=== PATIENT | male | born 1940 | race Caucasian/White ===

== ENCOUNTER 2021-05-17 10:49 | Inpatient (IN) | payer MEDICARE ==
[~2021-05-17] VITALS: Ht 185.4 cm; Wt 98.2 kg
[2021-05-17 11:45] LABS: CALCIUM 8.4 mg/dL (8.5-10.1); CREATININE 1.5 mg/dL (0.7-1.3); GFR 45.3; POTASSIUM 4.8 mmol/L (3.5-5.1)
[2021-05-17 11:51] LABS: ALBUMIN 2.9 g/dL (3.4-5.0); ALBUMIN/GLOBULIN RATIO 0.9 (1.0-1.7); MAGNESIUM 2.1 mg/dL (1.8-2.4); TOTAL BILIRUBIN 0.3 mg/dL (0.2-1.0); TOTAL PROTEIN 6.2 g/dL (6.4-8.2)
[2021-05-17 11:53] LABS: BASO % 1 % (0-3); EOS # 0.4 x10^3/uL (0.0-0.7); EOS % 6 % (0-3); HEMATOCRIT 29.4 % (39.0-53.0); LYMPH % 32 % (24-48); MEAN CORPUSCULAR HEMOGLOBIN 35 pg (25-35); MEAN CORPUSCULAR HGB CONC 34 g/dL (31-37); MEAN CORPUSCULAR VOLUME 101 fL (79-100); MONO # 0.6 x10^3/uL (0.0-1.1); MONO % 11 % (0-9); NEUT # 3.1 x10^3uL (1.8-7.7); NEUT % 51 % (31-73); PLATELET COUNT 98 x10^3/uL (140-400); RED BLOOD COUNT 2.91 x10^6/uL (4.30-5.70); RED CELL DISTRIBUTION WIDTH 13.4 % (11.5-14.5); WHITE BLOOD COUNT 6.1 x10^3/uL (4.0-11.0)
--- NOTE | 2021-05-17 11:55 | PHYS DOC ---
Past History Past Medical History: Anxiety, Dementia, Diabetes, Hypertension, Seizure, Other Additional Past Medical Histor: Impulsive Additional Past Surgical Histo: Head injury Alcohol Use: None General Adult EDM: Chief Complaint: MEDICAL CLEARANCE HPI: HPI: 80-year-old male presents for medical clearance for behavioral health admission. The patient was reported to having paranoid delusions and hallucinations. He denies any significant plaints to me. He tells me that he sometimes gets a burning pain inside of his waistband on the right side. This is a location where the patient had shingles in the past. Review of Systems: Review of Systems: Constitutional: Denies fever or chills Eyes: Denies change in visual acuity HENT: Denies nasal congestion or sore throat Respiratory: Denies cough or shortness of breath Cardiovascular: Denies chest pain or edema GI: Denies abdominal pain, nausea, vomiting, bloody stools or diarrhea : Denies dysuria Musculoskeletal: Denies back pain or joint pain Integument: Skin pain right lower abdomen Neurologic: Denies headache, focal weakness or sensory changes Endocrine: Denies polyuria or polydipsia Lymphatic: Denies swollen glands Psychiatric: Denies depression or anxiety Allergies: Allergies: Allergies Coded Allergies Type Severity Reaction Last Updated Verified No Known Drug Allergies 05/17/21 No Physical Exam: PE: Constitutional: Well developed, well nourished, no acute distress, non-toxic appearance. [] HENT: Normocephalic, atraumatic, bilateral external ears normal, oropharynx moist, no oral exudates, nose normal. [] Eyes: PERRLA, EOMI, conjunctiva normal, no discharge. [] Neck: Normal range of motion, no tenderness, supple, no stridor. [] Cardiovascular:Heart rate regular rhythm, no murmur [] Lungs & Thorax: Bilateral breath sounds clear to auscultation [] Abdomen: Bowel sounds normal, soft, no tenderness, no masses, no pulsatile masses. [] Skin: Warm, dry, no erythema, no rash. [] Back: No tenderness, no CVA tenderness. [] Extremities: No tenderness, no cyanosis, no clubbing, ROM intact, no edema. [] Neurologic: Alert and oriented X 3, normal motor function, normal sensory function, no focal deficits noted. [] Psychologic: Affect normal, judgement normal, mood normal. [] Current Patient Data: Labs: Laboratory Tests Test 05/17/21 11:20 Sodium Level 142 mmol/L (136-145) Potassium Level 4.8 mmol/L (3.5-5.1) Chloride Level 108 mmol/L (98-107) H Carbon Dioxide Level 26 mmol/L (21-32) Anion Gap 8 (6-14) Blood Urea Nitrogen 34 mg/dL (8-26) H Creatinine 1.5 mg/dL (0.7-1.3) H Estimated GFR (Cockcroft-Gault) 45.3 BUN/Creatinine Ratio 23 (6-20) H Glucose Level 104 mg/dL (70-99) H Calcium Level 8.4 mg/dL (8.5-10.1) L Magnesium Level 2.1 mg/dL (1.8-2.4) Total Bilirubin 0.3 mg/dL (0.2-1.0) Aspartate Amino Transferase (AST) 13 U/L (15-37) L Alanine Aminotransferase (ALT) 15 U/L (16-63) L Alkaline Phosphatase 100 U/L (46-116) Total Protein 6.2 g/dL (6.4-8.2) L Albumin 2.9 g/dL (3.4-5.0) L Albumin/Globulin Ratio 0.9 (1.0-1.7) L Vital Signs: Vital Signs Date Time Temp Pulse Resp B/P (MAP) Pulse Ox O2 Delivery O2 Flow Rate FiO2 05/17/21 11:00 98.7 70 22 134/52 (79) 97 EKG: EKG: Sinus rhythm, rate 69, normal axis, no ST elevations or depressions. [] Radiology/Procedures: Radiology/Procedures: [] Heart Score: C/O Chest Pain: N/A Risk Factors: Risk Factors: DM, Current or recent (<one month) smoker, HTN, HLP, family history of CAD, obesity. Risk Scores: Score 0 - 3: 2.5% MACE over next 6 weeks - Discharge Home Score 4 - 6: 20.3% MACE over next 6 weeks - Admit for Clinical Observation Score 7 - 10: 72.7% MACE over next 6 weeks - Early Invasive Strategies Course & Med Decision Making: Course & Med Decision Making Pertinent Labs and Imaging studies reviewed. (See chart for details) The patient has a mildly elevated BUN and creatinine. This would not preclude him from admission for behavioral health. His EKG is unremarkable. The patient's urinalysis is negative for infection. He is medically stable for behavioral health admission. [] Dragon Disclaimer: Dragon Disclaimer: This electronic medical record was generated, in whole or in part, using a voice recognition dictation system. Departure Departure: Impression: Primary Impression: Medical clearance for psychiatric admission Disposition: HOME / SELF CARE / HOMELESS Condition: STABLE Referrals: MIMI RAMSEY (PCP) CLEMENT ROBBINS DO May 17, 2021 11:55
--- NOTE | 2021-05-17 12:02 | EKG ---
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
[2021-05-17 13:18] LABS: BACTERIA,URINE 0 /HPF (0-FEW); BILIRUBIN,URINE NEG (NEG); CLARITY,URINE CLEAR; COLOR,URINE YELLOW; GLUCOSE,URINE NEG (NEG); NITRITE,URINE NEG (NEG); RBC,URINE 0 /HPF (0-2); SQUAMOUS EPITHELIAL CELL,UR OCC /LPF; UROBILINOGEN,URINE 0.2 mg/dL (0.2 mg/dL); WBC,URINE OCC /HPF (0-4)
--- NOTE | 2021-05-17 13:30 | NUR ---
Admission Note with Justification for Admission to [facility] Patient admitted to [facility] for protective oversight for emergency stabilization of acute psychiatric crisis. Pt admitted from: [place] Mode of arrival: POV Accompanied By: Family Precipitating behaviors that initiated intake and admission: Patient was reported to believe that his money was being stolen, his dog was being murdered, trying to leave the facility, disoriented, being tearful and crying frequently, and having sexually inappropriate conversations with other residents. Description of failure of out patient attempts at stabilization in previous setting list behavior and medication trials: Medication changes and redirection not successful Behaviors and assessment findings upon admission: Patient was calm, cooperative, and mildly confused. He is oriented to self, month, and in hospital. Patient believes he is in hospital for his recent bout of shingles which he states still causes him stinging pain. Plan: Admit for protective oversight for adjustment and stabilization of medications, behaviors and mood. Intense treatment regimen including groups, medication adjustments, therapy, consistent regimen for ADL's, self care, and sleep hygiene. Daily monitoring by Inpatient staff, Psychiatry, and Medical Physician.
[2021-05-17] MEDS ORDERED: IPRA4AER INH (13:48)
[2021-05-17] MEDS ORDERED: TAMS0.4C97 PO (13:48)
[2021-05-17] MEDS ORDERED: BUDE0.5A11 IH (13:48)
[2021-05-17] MEDS ORDERED: METF500T3 PO (13:48)
[2021-05-17] MEDS ORDERED: LISI-517 PO (13:48)
[2021-05-17] MEDS ORDERED: PRAV40TA2 PO (13:48)
[2021-05-17] MEDS ORDERED: CARV3.12 PO (13:48)
[2021-05-17] MEDS ORDERED: PHEN100C PO (13:48)
[2021-05-17] MEDS ORDERED: ASPI-889 PO (13:48)
[2021-05-17] MEDS ORDERED: CYAN100031 PO (13:48)
[2021-05-17 14:32] VITALS: BP 168/76
[2021-05-17] MEDS ORDERED: METHYL SALICYLATE/MENTHOL TOPICAL OINTMENT 57GM TUBE. TP PRN (14:45)
[2021-05-17] MEDS ORDERED: MAG HYDROX/AL HYDROX/SIMETH 30 ML ORAL.SUSP PO PRN (14:45)
[2021-05-17 15:16] LABS: PHENY 2.2 mcg/mL (10.0-20.0)
[2021-05-17 16:00] VITALS: BP 146/77
[2021-05-17] MEDS: IPRATRPIUM/ALBUTEROL 0.5/2.5MG 3 ML NEBU. NEB SCH ×2 (16:00→20:00)
[2021-05-17] MEDS ORDERED: NON FORMULARY ITEM (Ipratropium/Albuterol Sulfate (Combivent Respimat Inhal) 1 PUFF) INH SCH (17:00)
[2021-05-17] MEDS: BUDESONIDE 0.5 MG/2 ML NEBU IH SCH (17:06)
[2021-05-17] MEDS: CARVEDILOL 3.125 MG TABLET PO SCH (17:28)
--- NOTE | 2021-05-17 20:12 | HP ---
ADMIT DATE: 05/17/2021 PSYCHIATRIC ADMISSION AND EVALUATION IDENTIFYING DATA: The patient is a 80-year-old male referred to us by his primary care physician, Dr. Ashraf after the patient had failed outpatient treatment. He resides at [facility] in [place], [place] and has in-home services. Recently, he has been increasingly depressed, paranoid. He believes his money is being stolen and that his dog is being murdered. He has been hallucinating, paranoid, threatening to leave the longterm community. He has been given 30 days' notice of eviction by the community if behaviors were deemed dangerous, unmanageable due to additional memory deficits and having failed outpatient psychiatric interventions. He is referred for inpatient psychiatric stabilization. CHIEF COMPLAINT: "I am having severe pain from shingles on the front of my stomach below the navel. That makes me more depressed and confused." HISTORY OF PRESENT ILLNESS: I have reviewed information from Jennifer Watson, school community relations coordinator; current and past records as part of this evaluation. I met with the patient on the evening of 05/17/2021. The patient has a history of worsening symptoms of depression, feeling hopeless, helpless, worthless, anxious, sleep and appetite changes, being tearful, crying by himself, having some sexually inappropriate behaviors. No active suicidal or homicidal ideation. He minimizes his short-term memory deficits, but memory has been a problem. He is admitted by his nephew, Maikel Jimenes, who is his power of toys inspector. PAST PSYCHIATRIC HISTORY: As above. PAST MEDICAL HISTORY: Positive for COPD, diabetes mellitus, hypertension, obesity, seizure disorder, history of CVA, BPH, chronic kidney disease, recurrent falls, macrocytic anemia. Accu-Cheks daily. CODE STATUS: FULL CODE. DRUG ALLERGIES: Negative. DIET: Cardiac. MEDICATIONS: Takes medications whole. Ambulates independently with walker. UA negative. Current psychotropics, please refer to the [facility]. FAMILY HISTORY: Noncontributory. SOCIAL HISTORY: No history of alcohol, drug abuse, physical, sexual or elder abuse. He is not known to be a perpetrator. 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 REVIEW OF SYSTEMS: Positive for the lower abdominal surface pain for which he describes post-shingles, impaired ambulation with walker. No CV, , pulmonary, eye system symptoms on review. MENTAL STATUS EXAMINATION: The patient is oriented to himself and situation. Speech is coherent. Abstraction fair, computation somewhat impaired, language function intact. He is unaware of the date, but knew he was in the hospital. Unable to tell me where he was living before he came here. Has difficulty with serial sevens. Attention span is short. Mood is depressed, anxious. Affect is mood congruent. No active suicidal or homicidal ideation. He does seem somewhat paranoid. LABORATORY DATA: Reviewed. 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 Rest as above. PLAN: Admit to geropsychiatry unit at [facility]. I will see the patient daily individually from a psychiatric standpoint, medical followup with Dr. Oconnor/Dr. Villarreal. Consult Dr. Newman, neurology for his symptoms of post-herpetic neuralgia. Consider Tegretol for this or alternatives. Observe the patient's baseline, then adjust psychotropics as clinically indicated. ESTIMATED LENGTH OF STAY: 10-12 days. DISPOSITION: Plans back to assisted living when stable. ARIE MONK: Melissa TID: [id number]
[2021-05-17] MEDS: PHENYTOIN SODIUM EXTENDED 100 MG CAPSULE PO SCH (20:36)
[2021-05-17] MEDS: GABAPENTIN 300 MG CAPSULE. PO SCH (20:36)
[2021-05-17] MEDS: IPRATROPIUM/ALBUTEROL 20/100mcg/INH INHALER. INH SCH (20:46)
--- NOTE | 2021-05-17 22:10 | PDOC ---
Exam Note: Leo Note: Please also refer to the separate dictated note~for this date of service dictated separately.~Patient seen individually. Discussed the patient with Nursing staff reviewed the chart.~Reviewed interim history and current functioning. Reviewed vital signs,~Labs/ Radiology~and current medications noted below. Continue current treatment with the changes noted in the dictated addendum note Assessment: Vital Signs/I&O: Vital Signs Date Time Temp Pulse Resp B/P (MAP) Pulse Ox O2 Delivery O2 Flow Rate FiO2 05/17/21 17:28 74 146/77 05/17/21 16:00 98.1 20 98 Room Air Labs: Laboratory Tests Test 05/17/21 11:20 05/17/21 12:35 White Blood Count 6.1 x10^3/uL (4.0-11.0) Red Blood Count 2.91 x10^6/uL (4.30-5.70) L Hemoglobin 10.0 g/dL (13.0-17.5) L Hematocrit 29.4 % (39.0-53.0) L Mean Corpuscular Volume 101 fL (79-100) H Mean Corpuscular Hemoglobin 35 pg (25-35) Mean Corpuscular Hemoglobin Concent 34 g/dL (31-37) Red Cell Distribution Width 13.4 % (11.5-14.5) Platelet Count 98 x10^3/uL (140-400) L Neutrophils (%) (Auto) 51 % (31-73) Lymphocytes (%) (Auto) 32 % (24-48) Monocytes (%) (Auto) 11 % (0-9) H Eosinophils (%) (Auto) 6 % (0-3) H Basophils (%) (Auto) 1 % (0-3) Neutrophils # (Auto) 3.1 x10^3uL (1.8-7.7) Lymphocytes # (Auto) 2.0 x10^3/uL (1.0-4.8) Monocytes # (Auto) 0.6 x10^3/uL (0.0-1.1) Eosinophils # (Auto) 0.4 x10^3/uL (0.0-0.7) Basophils # (Auto) 0.0 x10^3/uL (0.0-0.2) Sodium Level 142 mmol/L (136-145) Potassium Level 4.8 mmol/L (3.5-5.1) Chloride Level 108 mmol/L (98-107) H Carbon Dioxide Level 26 mmol/L (21-32) Anion Gap 8 (6-14) Blood Urea Nitrogen 34 mg/dL (8-26) H Creatinine 1.5 mg/dL (0.7-1.3) H Estimated GFR (Cockcroft-Gault) 45.3 BUN/Creatinine Ratio 23 (6-20) H Glucose Level 104 mg/dL (70-99) H Calcium Level 8.4 mg/dL (8.5-10.1) L Magnesium Level 2.1 mg/dL (1.8-2.4) Iron Level 98 ug/dL (65-175) Total Iron Binding Capacity 160 ug/dL (250-450) L Iron Saturation 61 % (15-34) H Total Bilirubin 0.3 mg/dL (0.2-1.0) Aspartate Amino Transferase (AST) 13 U/L (15-37) L Alanine Aminotransferase (ALT) 15 U/L (16-63) L Alkaline Phosphatase 100 U/L (46-116) Total Protein 6.2 g/dL (6.4-8.2) L Albumin 2.9 g/dL (3.4-5.0) L Albumin/Globulin Ratio 0.9 (1.0-1.7) L Phenytoin (Dilantin) Level 2.2 mcg/mL (10.0-20.0) L Phenytoin Last Dose Date 05/16/2021 Phenytoin Last Dose Time 1800 Urine Collection Type Unknown Urine Color Yellow Urine Clarity Clear Urine pH 6.0 Urine Specific [place] 1.020 Urine Protein Neg (NEG-TRACE) Urine Glucose (UA) Neg mg/dL (NEG) Urine Ketones (Stick) Neg mg/dL (NEG) Urine Blood Neg (NEG) Urine Nitrite Neg (NEG) Urine Bilirubin Neg (NEG) Urine Urobilinogen Dipstick 0.2 mg/dL (0.2 mg/dL) Urine Leukocyte Esterase Neg (NEG) Urine RBC 0 /HPF (0-2) Urine WBC Occ /HPF (0-4) Urine Squamous Epithelial Cells Occ /LPF Urine Bacteria 0 /HPF (0-FEW) Current Medications: Meds: Current Medications Medications (Trade) Dose Ordered Sig/Aparna Route PRN Reason Start Time Stop Time Status Last Admin Dose Admin Carvedilol (Coreg) 3.125 mg BIDWMEALS PO 05/17/21 17:00 05/17/21 17:28 Phenytoin Sodium (Dilantin) 100 mg BID PO 05/17/21 21:00 05/17/21 20:36 Albuterol/ Ipratropium (Combivent Respimat 20-100 Mcg) 1 puff RTQID INH 05/17/21 20:00 05/17/21 20:46 Gabapentin (Neurontin) 300 mg BID PO 05/17/21 21:00 05/17/21 20:36 I have reviewed the current psychotropics carefully including drug interactions. Risk benefit ratio favors no change other than as noted in my dictated progress note. Diagnosis: Problems: (1) Major depressive disorder (2) Major neurocognitive disorder (3) Dementia, vascular, with delusions (4) Dementia, vascular, with depression (5) Anxiety disorder, unspecified (6) Impulse control disorder, unspecified NIK LOYA MD May 17, 2021 22:10
[2021-05-18 05:48] VITALS: BP 114/57
[2021-05-18] MEDS: BUDESONIDE 0.5 MG/2 ML NEBU IH SCH (08:00)
[2021-05-18] MEDS: IPRATROPIUM/ALBUTEROL 20/100mcg/INH INHALER. INH SCH ×4 (08:00→20:13)
[2021-05-18] MEDS: ATORVASTATIN CALCIUM 10 MG TABLET. PO SCH (10:30)
[2021-05-18] MEDS: metFORMIN XR 500 MG TAB.ER.24H PO SCH (10:30)
[2021-05-18] MEDS: PHENYTOIN SODIUM EXTENDED 100 MG CAPSULE PO SCH ×2 (10:30→20:13)
[2021-05-18] MEDS: ASPIRIN ENTERIC COATED 81 MG TABLET.DR. PO SCH (10:30)
[2021-05-18] MEDS: TAMSULOSIN 0.4 MG CAP.ER.24H. PO SCH (10:30)
[2021-05-18] MEDS: CARVEDILOL 3.125 MG TABLET PO SCH ×2 (10:30→17:45)
[2021-05-18] MEDS: LISINOPRIL 5 MG TABLET. PO SCH (10:31)
[2021-05-18] MEDS: CYANOCOBALAMIN (VITAMIN B-12) 1,000 MCG TABLET. PO SCH (10:31)
[2021-05-18] MEDS: GABAPENTIN 300 MG CAPSULE. PO SCH ×2 (10:31→20:13)
--- NOTE | 2021-05-18 10:44 | NUR ---
Pt confused and disorganized this shift. Compliant with whole medications. He stated he had difficulty sleeping last night, and so he slept in and missed breakfast. Snack offered and he accepted. He appears friendly and interactive, his behaviors and language with others appropriate. He has been absent of SI/HI/VH/AH/delusions at this time. He denies pain when asked. Plan of care continues, will pass to next shift.
[2021-05-18 11:27] LABS: THYROID STIM HORMONE (TSH) 1.373 uIU/mL (0.358-3.740)
[2021-05-18] MEDS: FLUTICASONE FUROATE 100mcg/INH ELLIPTA INHALER. INH SCH (14:00)
[2021-05-18 15:24] VITALS: BP 115/54
--- NOTE | 2021-05-18 22:08 | PDOC ---
Exam Note: Leo Note: Please also refer to the separate dictated note~for this date of service dictated separately.~Patient seen individually. Discussed the patient with Nursing staff reviewed the chart.~Reviewed interim history and current functioning. Reviewed vital signs,~Labs/ Radiology~and current medications noted below. Continue current treatment with the changes noted in the dictated addendum note Assessment: Vital Signs/I&O: Vital Signs Date Time Temp Pulse Resp B/P (MAP) Pulse Ox O2 Delivery O2 Flow Rate FiO2 05/18/21 17:45 68 115/54 05/18/21 15:24 97.2 18 98 05/18/21 05:48 Room Air I & O 05/17/21 05/17/21 05/18/21 15:00 23:00 07:00 Intake Total 120 ml 480 ml Balance 120 ml 480 ml Labs: Laboratory Tests Test 05/18/21 07:16 Glucose (Fingerstick) 78 mg/dL (70-99) Current Medications: Meds: Current Medications Medications (Trade) Dose Ordered Sig/Aparna Route PRN Reason Start Time Stop Time Status Last Admin Dose Admin Aspirin (Aspirin Enteric Coated) 81 mg DAILY PO 05/18/21 09:00 05/18/21 10:30 Lisinopril (Prinivil) 5 mg DAILY PO 05/18/21 09:00 05/18/21 10:31 Metformin HCl (Glucophage Xr) 500 mg DAILYWBKFT PO 05/18/21 08:00 05/18/21 10:30 Tamsulosin HCl (Flomax) 0.4 mg DAILY PO 05/18/21 09:00 05/18/21 10:30 Cyanocobalamin (Vitamin B-12) 1,000 mcg DAILY PO 05/18/21 09:00 05/18/21 10:31 Atorvastatin Calcium (Lipitor) 10 mg DAILY PO 05/18/21 09:00 05/18/21 10:30 Fluticasone Furoate (ARNUITY 100mcg ELLIPTA) 1 puff DAILY INH 05/18/21 14:00 05/18/21 14:00 I have reviewed the current psychotropics carefully including drug interactions. Risk benefit ratio favors no change other than as noted in my dictated progress note. Diagnosis: Problems: (1) Major depressive disorder (2) Impulse control disorder, unspecified (3) Anxiety disorder, unspecified (4) Dementia, vascular, with depression (5) Dementia, vascular, with delusions (6) Major neurocognitive disorder NIK LOYA MD May 18, 2021 22:08
[2021-05-19 00:09] LABS: THYROXINE 4.7 ug/dL (4.5-12.0)
--- NOTE | 2021-05-19 01:00 | NUR ---
PRN tylenol given. 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 He was becoming loud and arguing with staff. He was placed in the day room and visited with staff and calmed after approx 1 hour. .
[2021-05-19] MEDS: ACETAMINOPHEN 325 MG TABLET PO PRN (01:05)
[2021-05-19] MEDS: MAGNESIUM HYDROXIDE 2,400 MG/30 ML ORAL.SUSP. PO PRN (02:02)
--- NOTE | 2021-05-19 02:15 | NUR ---
Pt now manaer used the bathroom and gone back to sleep in his room.
--- NOTE | 2021-05-19 04:57 | CONS ---
DATE OF CONSULTATION: 05/18/2021 CONSULTATION FOR MEDICAL MANAGEMENT HISTORY OF PRESENT ILLNESS: The patient is a 80-year-old male patient who was referred [facility] by his primary care physician after the patient has failed outpatient treatment. He apparently has been residing at [facility] in [place], [place] and has an in-home services, has been increasingly depressed, paranoid. He believes his money is being stolen and that his dog has been murdered. He has been hallucinating, paranoid, threatening to leave the custodial community. He apparently has been given a 30-day notice of eviction by the community if behaviors were deemed dangerous, unmanageable due to additional memory deficit and having failed outpatient psychiatric stabilization and therefore, he was referred for inpatient psychiatric stabilization. The patient himself denied any complaint. PAST MEDICAL HISTORY: Significant for COPD, type 2 diabetes mellitus, hypertension, obesity, seizure disorder, has had history of CVA, benign prostatic hypertrophy, chronic kidney disease, recurrent falls, macrocytic anemia. He stated that he has multiple surgeries, but he was unable to tell me exactly what kind of surgery he has. ALLERGIES: He has no known drug allergies. MEDICATIONS: He is currently on the following medication. He is on Combivent, Respimat 1 puff 4 times a day, tamsulosin 0.4 mg at bedtime, pravastatin, sodium 40 mg at bedtime, carvedilol 3.125 mg twice a day with meals, lisinopril 5 mg once a day, aspirin 81 mg once a day, phenytoin sodium 100 mg twice a day, Pulmicort 0.5 mg 2 mL by nebulizer twice a day, metformin extended release 500 mg daily with breakfast and cyanocobalamin, vitamin B12 1000 mcg tablet extended release one tablet once a day. FAMILY HISTORY: Noncontributory. SOCIAL HISTORY: He is a resident at [facility] in [place]. He apparently does not smoke or drink alcohol or use recreational drugs. PHYSICAL EXAMINATION: GENERAL: When I examined him this afternoon, he was sitting comfortably in his chair, eating his lunch, in no apparent respiratory distress. He was somewhat pale, but no jaundice, cyanosis, no lymphadenopathy, no thyromegaly, jugular distention, or limb edema. VITAL SIGNS: Heart rate was 75, blood pressure 114/57, temperature was 97.7, respiratory rate was 18 and oxygen saturation was 97% on room air. HEENT: Examination of the head, eyes, ears, nose, and throat: Normocephalic, atraumatic. NECK: Supple. HEART: Showed normal first and second heart sounds, no gallop, murmur. CHEST: Clear to auscultation. No crepitation or rhonchi. ABDOMEN: Distended, soft, nontender. NEUROLOGIC: He was awake, alert, responding appropriately. All cranial nerves intact. He moves extremities without difficulty. Although he is mostly wheelchair bound. LABORATORY DATA: Showed a white cell count of 6100, hemoglobin 10, hematocrit 29, MCV 101 and platelet count of 98,000. Serum sodium 142, potassium 4.8, chloride 108, bicarbonate 26, anion gap of 8, BUN 34, creatinine 1.5. Estimated GFR was 45 mL per minute. His glucose 104, calcium was 8.4, magnesium was 2.1. Serum iron was 98. TIBC was 160, iron saturation was 61. Total bilirubin, AST, ALT, alkaline phosphatase were normal. Total protein 6.2, albumin was 2.9. Serum triglycerides was 90. Total cholesterol 144, LDL cholesterol was 66, VLDL was 18 and HDL cholesterol was 16 and the ratio was 2. TSH was 1.373. His urinalysis essentially unremarkable and urine toxic screen showed that his phenytoin is very low at 2.2, which is definitely subtherapeutic. ASSESSMENT: In summary, this is a 80-year-old male patient who was admitted recently on account of being increasingly depressed, paranoid, believing that his money is being stolen, his dog being murdered, he also has been hallucinating, paranoid, threatening to leave the custodial community. He apparently is known to have past medical history of major depression. Medically his vital signs seem to be well within acceptable range. The lab work was also has obviously what seemed to be pancytopenia, chronic kidney disease. His phenytoin level is subtherapeutic and he probably needs to be at least on 5 mg/kg. Apparently, Dr. Newman is going to see him this afternoon and I will leave that decision to adjust the dose to Dr. Newman. Thank you, Dr. Parra, for allowing me to participate in the care of this patient. KYLEE/JEMIMA/RUBIO DR: KYLEE/nts TID: [id number]
[2021-05-19 05:54] VITALS: BP 154/77
[2021-05-19 06:10] LABS: HEMOGLOBIN A1C 5.7 % (4.8-5.6)
[2021-05-19] MEDS: IPRATROPIUM/ALBUTEROL 20/100mcg/INH INHALER. INH SCH ×4 (08:00→20:44)
[2021-05-19] MEDS: metFORMIN XR 500 MG TAB.ER.24H PO SCH (08:08)
[2021-05-19] MEDS: CYANOCOBALAMIN (VITAMIN B-12) 1,000 MCG TABLET. PO SCH (08:08)
[2021-05-19] MEDS: CARVEDILOL 3.125 MG TABLET PO SCH ×2 (08:08→17:17)
[2021-05-19] MEDS: GABAPENTIN 300 MG CAPSULE. PO SCH ×2 (08:08→20:45)
[2021-05-19] MEDS: ATORVASTATIN CALCIUM 10 MG TABLET. PO SCH (08:08)
[2021-05-19] MEDS: LISINOPRIL 5 MG TABLET. PO SCH (08:08)
[2021-05-19] MEDS: TAMSULOSIN 0.4 MG CAP.ER.24H. PO SCH (08:08)
[2021-05-19] MEDS: ASPIRIN ENTERIC COATED 81 MG TABLET.DR. PO SCH (08:08)
--- NOTE | 2021-05-19 08:45 | PDOC ---
Exam Note: Leo Note: This note is a late entry for 05/18/2021 covers elements not covered in my initial note. Subjective: The patient was seen individually in the evening of 05/18/2021 with Maryjane KOWALSKI, discussed and reviewed the chart. The patient slept 6-1/4 hours previous night. The patient has some short-term memory deficits. He believes he is here for shingles. His Dilantin is being adjusted per Dr. Newman. He is compliant with his medications. He remains depressed, withdrawn but does come out of the dayroom. Review of Systems: Ambulation impaired with walker. No CV, , pulmonary, eye, ENT system symptoms on review. Mental Status Exam: The patient is reasonably oriented to himself and situation. Speech coherent. Abstraction fair. Computation impaired. Language function intact. Mood and affect depressed, anxious. No suicidal or homicidal ideation. Laboratory Data: Reviewed. 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 Anxiety disorder unspecified. Impulse control disorder unspecified. Plan: No change from initial note. The patient remains somewhat depressed. We will go ahead and start Cymbalta 30 mg a day given his significant pain issues as well. We will increase this gradually as tolerated. Assessment: Vital Signs/I&O: Vital Signs Date Time Temp Pulse Resp B/P (MAP) Pulse Ox O2 Delivery O2 Flow Rate FiO2 05/19/21 08:08 91 154/77 05/19/21 05:54 97.8 18 100 05/18/21 05:48 Room Air I & O 05/18/21 05/18/21 05/19/21 15:00 23:00 07:00 Intake Total 240 ml 720 ml Balance 240 ml 720 ml Labs: Laboratory Tests Test 05/19/21 07:23 Glucose (Fingerstick) 151 mg/dL (70-99) H Current Medications: Meds: Laboratory Tests Test 05/19/21 07:23 Glucose (Fingerstick) 151 mg/dL Current Medications Medications (Trade) Dose Ordered Sig/Aparna Route PRN Reason Start Time Stop Time Status Last Admin Dose Admin Acetaminophen (Tylenol) 650 mg PRN Q6HRS PRN PO MILD PAIN / TEMP > 100.3'F 05/17/21 14:45 05/19/21 01:05 Multi-Ingredient Ointment (Analgesic [place]) 1 inna PRN QID PRN TP MUSCLE PAIN 05/17/21 14:45 Al Hydroxide/Mg Hydroxide (Mylanta Plus Xs) 15 ml PRN AFTMEALHC PRN PO DYSPEPSIA 05/17/21 14:45 Magnesium Hydroxide (Milk Of Magnesia) 2,400 mg PRN QHS PRN PO CONSTIPATION 05/17/21 14:45 Aspirin (Aspirin Enteric Coated) 81 mg DAILY PO 05/18/21 09:00 05/19/21 08:08 Budesonide (Pulmicort) 0.5 mg RTBID IH 05/17/21 20:00 05/18/21 13:26 DC Carvedilol (Coreg) 3.125 mg BIDWMEALS PO 05/17/21 17:00 05/19/21 08:08 Lisinopril (Prinivil) 5 mg DAILY PO 05/18/21 09:00 05/19/21 08:08 Metformin HCl (Glucophage Xr) 500 mg DAILYWBKFT PO 05/18/21 08:00 05/19/21 08:08 Phenytoin Sodium (Dilantin) 100 mg BID PO 05/17/21 21:00 05/18/21 21:00 DC 05/18/21 20:13 Tamsulosin HCl (Flomax) 0.4 mg DAILY PO 05/18/21 09:00 05/19/21 08:08 Cyanocobalamin (Vitamin B-12) 1,000 mcg DAILY PO 05/18/21 09:00 05/19/21 08:08 Non-Formulary Medication (Ipratropium/ Albuterol Sulfate (Combivent Respimat Inhal)) 1 puff QID INH 05/17/21 17:00 05/17/21 15:02 DC Atorvastatin Calcium (Lipitor) 10 mg DAILY PO 05/18/21 09:00 05/19/21 08:08 Albuterol/ Ipratropium (Duoneb) 3 ml RTQID NEB 05/17/21 16:00 05/17/21 20:45 DC Albuterol/ Ipratropium (Combivent Respimat 20-100 Mcg) 1 puff RTQID INH 05/17/21 20:00 05/18/21 20:13 Gabapentin (Neurontin) 300 mg BID PO 05/17/21 21:00 05/19/21 08:08 Fluticasone Furoate (ARNUITY 100mcg ELLIPTA) 1 puff DAILY INH 05/18/21 14:00 05/18/21 14:00 Phenytoin Sodium (Dilantin) 300 mg DAILY08 PO 05/19/21 08:00 Duloxetine HCl (Cymbalta) 30 mg DAILY PO 05/19/21 09:00 Current Medications Medications (Trade) Dose Ordered Sig/Aparna Route PRN Reason Start Time Stop Time Status Last Admin Dose Admin Aspirin (Aspirin Enteric Coated) 81 mg DAILY PO 05/18/21 09:00 05/19/21 08:08 Lisinopril (Prinivil) 5 mg DAILY PO 05/18/21 09:00 05/19/21 08:08 Tamsulosin HCl (Flomax) 0.4 mg DAILY PO 05/18/21 09:00 05/19/21 08:08 Cyanocobalamin (Vitamin B-12) 1,000 mcg DAILY PO 05/18/21 09:00 05/19/21 08:08 Atorvastatin Calcium (Lipitor) 10 mg DAILY PO 05/18/21 09:00 05/19/21 08:08 Fluticasone Furoate (ARNUITY 100mcg ELLIPTA) 1 puff DAILY INH 05/18/21 14:00 05/18/21 14:00 I have reviewed the current psychotropics carefully including drug interactions. Risk benefit ratio favors no change other than as noted in my dictated progress note. Diagnosis: Problems: (1) Major depressive disorder (2) Impulse control disorder, unspecified (3) Anxiety disorder, unspecified (4) Dementia, vascular, with depression (5) Dementia, vascular, with delusions (6) Major neurocognitive disorder NIK LOYA MD May 19, 2021 08:45
[2021-05-19] MEDS: PHENYTOIN SODIUM EXTENDED 100 MG CAPSULE PO SCH (09:34)
[2021-05-19] MEDS: DULoxetine HCL 30 MG CAPSULE.DR PO SCH (09:34)
[2021-05-19] MEDS: FLUTICASONE FUROATE 100mcg/INH ELLIPTA INHALER. INH SCH (09:35)
--- NOTE | 2021-05-19 12:12 | NUR ---
WEEKLY ACTIVITY THERAPY NOTE Date of Admission: 05/17/21 Date of AT Assessment: TBD Precipitating behaviors that initiated intake and admission: Patient was reported to believe that his money was being stolen, his dog was being murdered, trying to leave the facility, disoriented, being tearful and crying frequently, and having sexually inappropriate conversations with other residents. Initial Goal: TBD Weekly progress towards goal: TBD Group participation level: NA Weekly highlights: arrived on unit Behaviors observed: new patient Plan: meet/assess Pt Beneficial adaptations:
--- NOTE | 2021-05-19 13:10 | NUR ---
Treatment team note: Pt is eating okay and noted to have slept 4.5 hours last night. Pt is A/O to self and believes he's in the hospital for shingles treatment. Pt appears restless and is medication compliant with meds whole. Pt did report having bad dreams and complaints of headache; however, when questioned pt is not able to further discuss or explain what happened. Pt does participate in some groups with minimal to moderate participation. Pt is on Dilantin, Gabapentin and Cymbalta; Remeron 7.5mg q HS will be started to aid in pt restlessness and poor sleep at night. Pt facility has given him a 30-day notice as he lives on the [place] side and is no longer appropriate for that setting. SW will aid family and the facility in next steps for pt placement. ALISON 14 days.
--- NOTE | 2021-05-19 14:35 | NUR ---
NURSING NOTE Pleasant et calm, participates in group activities without incident. Ambulatory independently with rolling walker. Medication changes ordered for improved sleep. No concern with behavior.
[2021-05-19 15:34] VITALS: BP 151/60
--- NOTE | 2021-05-19 16:20 | NUR ---
PSYCHOSOCIAL ASSESSMENT ADMISSION DATE: 05/17/21 CONTACT INFORMATION: DPOA/Guardian Contact Name: Maikel Jimenes Contact Address: [address] [facility] [address]; [place] [address] Contact Phone #: ETHNIC ORIGIN: REASONS FOR ADMISSION: ADDITIONAL ADMISSION COMMENTS: According to the intake, pt thinks his money is being stolen and that his dog is being murdered; Hallucinating, paranoid, threatening to leave the nursing home community, has been given a 30-day notice, depressed, tearful and cries frequently, sexually inappropriate conversation with peers, anxious. REASON FOR ADMISSION IN PATIENT/FAMILY'S OWN WORDS: Had a steady decline within the last year and needs more assistance than usual. PATIENT/FAMILY EXPECTATIONS FOR ADMISSION: Medication and behavioral management LIVING SITUATION: Patient lives with: Independent Living Other living arrangements: Contact Name: [employer] Contact Address: [address] [place], [place] [address] Contact Phone #: Contact Fax #: FAMILY RELATIONS: Marital Status: # of Marriages: 1 # of Children: 0 [facility] Family Support: Cooperative Additional Comments r/t Family: Pt was for a short period of time and had no children. Pt was in an accident and instantly. Pt never remarried. Pt closest relative is his nephew Maikel. SIGNIFICANT PSYCHIATRIC/MEDICAL HISTORY: Psychiatric/Treatment History: This is pt first stay on [facility]. Pt has been in SNF due to his medical history and need for rehabilitation. Pertinent Family History: Unknown HISTORICAL DATA: Childhood Environment: Childhood Environment Additional Comments: Pt is one of 10 children (2 girls and 8 boys). Pt and two other siblings (who have nothing to do with pt) are living. 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 service: N Yarsanism background: No preference Sexual orientation: Heterosexual Educational Level: Pt has a 6th grade education; did not receive his GED or further education opportunities. Past/Present Interests/Hobbies: N/A Financial support/resources: Care Home/Pension Social Security Monthly income: Person handling finances: Pt nephew is also financial DPOA Do you have a history of legal problems: N Cultural considerations: None SOCIAL RELATIONSHIPS-CURRENT/PAST: Psychiatrist: None PCP: Dr. Ashraf Counselor/Therapist: None Veterans[employer] Administration: None Support Group: None Fabric Worker Fitter/Lath Hand: None Other relationships: staff at [facility] STRENGTHS & WEAKNESSES: Patient's strengths: Good verbal skills Approachable Other patient strengths: Patient's weaknesses: Lack of housing Lack of resources Impulsive Poor relationships Other patient weaknesses: PRELIMINARY PLAN OF TREATMENT: Preliminary plan: Dec. Anxiety/Panic Dec. Symp. Depression Promote Coping Skill Medication Stabilization Other preliminary treatment comments: DISCHARGE PLANNING: Discharge planning/disposition: Placement Needed Additional discharge needs identified: Referrals to higher level of care is needed. ADDITIONAL INFORMATION: Other Pertinent Data: ARI initially contacted pt nephew to discuss the 30 day notice per reported on the intake. Pt nephew was not aware of a 30-day notice being issued and questioned next steps. ARI planned to contact [facility] and speak to Gloria to confirm the information. Pt nephew was able to complete PSA with SW best to his knowledge. He reports that he wasn't too close to the pt as Maikel was in the and gone most of his adult life. It wasn't until pt brother, Maikel's father, that a nielson was formed. Maikel reports that pt does have a house in [place] that is being sold and he recently sold 4 of the 5 Mustangs pt had on his property. Maikel was able to clarify reports of pt concern for his dog. Pt did have a dog in [place] roughly a year ago, who was essentially killed by the neighbor's pit bull. But pt does not currently have a dog at his [place] facility. ARI will keep Maikel updated as pt stay continues on [facility].
[2021-05-19] MEDS: MIRTAZAPINE 7.5 MG TABLET. PO SCH (20:45)
--- NOTE | 2021-05-19 21:55 | PDOC ---
Exam Note: Leo Note: Please also refer to the separate dictated note~for this date of service dictated separately.~Patient seen individually. Discussed the patient with Nursing staff reviewed the chart.~Reviewed interim history and current functioning. Reviewed vital signs,~Labs/ Radiology~and current medications noted below. Continue current treatment with the changes noted in the dictated addendum note Assessment: Vital Signs/I&O: Vital Signs Date Time Temp Pulse Resp B/P (MAP) Pulse Ox O2 Delivery O2 Flow Rate FiO2 05/19/21 17:17 70 151/60 05/19/21 15:34 97.4 18 99 05/18/21 05:48 Room Air I & O 05/18/21 05/18/21 05/19/21 15:00 23:00 07:00 Intake Total 240 ml 720 ml Balance 240 ml 720 ml Labs: Laboratory Tests Test 05/19/21 07:23 Glucose (Fingerstick) 151 mg/dL (70-99) H Current Medications: Meds: Laboratory Tests Test 05/19/21 07:23 Glucose (Fingerstick) 151 mg/dL Current Medications Medications (Trade) Dose Ordered Sig/Aparna Route PRN Reason Start Time Stop Time Status Last Admin Dose Admin Acetaminophen (Tylenol) 650 mg PRN Q6HRS PRN PO MILD PAIN / TEMP > 100.3'F 05/17/21 14:45 05/19/21 01:05 Multi-Ingredient Ointment (Analgesic [place]) 1 inna PRN QID PRN TP MUSCLE PAIN 05/17/21 14:45 Al Hydroxide/Mg Hydroxide (Mylanta Plus Xs) 15 ml PRN AFTMEALHC PRN PO DYSPEPSIA 05/17/21 14:45 Magnesium Hydroxide (Milk Of Magnesia) 2,400 mg PRN QHS PRN PO CONSTIPATION 05/17/21 14:45 Aspirin (Aspirin Enteric Coated) 81 mg DAILY PO 05/18/21 09:00 05/19/21 08:08 Budesonide (Pulmicort) 0.5 mg RTBID IH 05/17/21 20:00 05/18/21 13:26 DC Carvedilol (Coreg) 3.125 mg BIDWMEALS PO 05/17/21 17:00 05/19/21 17:17 Lisinopril (Prinivil) 5 mg DAILY PO 05/18/21 09:00 05/19/21 08:08 Metformin HCl (Glucophage Xr) 500 mg DAILYWBKFT PO 05/18/21 08:00 05/19/21 08:08 Phenytoin Sodium (Dilantin) 100 mg BID PO 05/17/21 21:00 05/18/21 21:00 DC 05/18/21 20:13 Tamsulosin HCl (Flomax) 0.4 mg DAILY PO 05/18/21 09:00 05/19/21 08:08 Cyanocobalamin (Vitamin B-12) 1,000 mcg DAILY PO 05/18/21 09:00 05/19/21 08:08 Non-Formulary Medication (Ipratropium/ Albuterol Sulfate (Combivent Respimat Inhal)) 1 puff QID INH 05/17/21 17:00 05/17/21 15:02 DC Atorvastatin Calcium (Lipitor) 10 mg DAILY PO 05/18/21 09:00 05/19/21 08:08 Albuterol/ Ipratropium (Duoneb) 3 ml RTQID NEB 05/17/21 16:00 05/17/21 20:45 DC Albuterol/ Ipratropium (Combivent Respimat 20-100 Mcg) 1 puff RTQID INH 05/17/21 20:00 05/19/21 20:44 Gabapentin (Neurontin) 300 mg BID PO 05/17/21 21:00 05/19/21 20:45 Fluticasone Furoate (ARNUITY 100mcg ELLIPTA) 1 puff DAILY INH 05/18/21 14:00 05/19/21 09:35 Phenytoin Sodium (Dilantin) 300 mg DAILY08 PO 05/19/21 08:00 05/19/21 09:34 Duloxetine HCl (Cymbalta) 30 mg DAILY PO 05/19/21 09:00 05/19/21 09:34 Mirtazapine (Remeron) 7.5 mg QHS PO 05/19/21 21:00 05/19/21 20:45 Trazodone HCl (Desyrel) 50 mg PRN QHS PRN PO sleep 05/19/21 12:30 Current Medications Medications (Trade) Dose Ordered Sig/Aparna Route PRN Reason Start Time Stop Time Status Last Admin Dose Admin Phenytoin Sodium (Dilantin) 300 mg DAILY08 PO 05/19/21 08:00 05/19/21 09:34 Duloxetine HCl (Cymbalta) 30 mg DAILY PO 05/19/21 09:00 05/19/21 09:34 Mirtazapine (Remeron) 7.5 mg QHS PO 05/19/21 21:00 05/19/21 20:45 I have reviewed the current psychotropics carefully including drug interactions. Risk benefit ratio favors no change other than as noted in my dictated progress note. Diagnosis: Problems: (1) Major depressive disorder (2) Impulse control disorder, unspecified (3) Anxiety disorder, unspecified (4) Dementia, vascular, with depression (5) Dementia, vascular, with delusions (6) Major neurocognitive disorder NIK LOYA MD May 19, 2021 21:55
--- NOTE | 2021-05-20 01:58 | NUR ---
Last evening pt sat in the day room watching tv and pleasantly interacted with pts and staff. He took his meds whole and has been cooperative with cares. Since going to bed he has been sleeping and has had no behaviors tonight.
[2021-05-20 06:19] VITALS: BP 160/79
[2021-05-20] MEDS: IPRATROPIUM/ALBUTEROL 20/100mcg/INH INHALER. INH SCH ×4 (08:00→20:14)
[2021-05-20] MEDS: DULoxetine HCL 30 MG CAPSULE.DR PO SCH (08:37)
[2021-05-20] MEDS: LISINOPRIL 5 MG TABLET. PO SCH (08:37)
[2021-05-20] MEDS: metFORMIN XR 500 MG TAB.ER.24H PO SCH (08:37)
[2021-05-20] MEDS: TAMSULOSIN 0.4 MG CAP.ER.24H. PO SCH (08:37)
[2021-05-20] MEDS: ATORVASTATIN CALCIUM 10 MG TABLET. PO SCH (08:38)
[2021-05-20] MEDS: CARVEDILOL 3.125 MG TABLET PO SCH ×2 (08:38→17:14)
[2021-05-20] MEDS: ASPIRIN ENTERIC COATED 81 MG TABLET.DR. PO SCH (08:38)
[2021-05-20] MEDS: CYANOCOBALAMIN (VITAMIN B-12) 1,000 MCG TABLET. PO SCH (08:38)
[2021-05-20] MEDS: GABAPENTIN 300 MG CAPSULE. PO SCH ×2 (08:38→20:14)
[2021-05-20] MEDS: PHENYTOIN SODIUM EXTENDED 100 MG CAPSULE PO SCH (08:38)
[2021-05-20] MEDS: FLUTICASONE FUROATE 100mcg/INH ELLIPTA INHALER. INH SCH (08:41)
--- NOTE | 2021-05-20 09:21 | NUR ---
Pt calm and compliant with medications whole. He has been visible on the unit since early in the morning and his interactions with others have been appropriate. He was present during breakfast, appetite appears adequate. Absent of SI/HI/VH/AH/delusions. He denies pain when asked. Currently he is present in the day room and napping. Plan of care continues, will pass to next shift.
--- NOTE | 2021-05-20 14:30 | NUR ---
ACTIVITY THERAPY ASSESSMENT completed based on notes, observation and interview. Pt was laying supine in his bed with his eyes closed. Pt was woken up by AT and was willing to answer questions. Pt often fell back asleep during assessment so not much information could be obtained. When AT provided pt with activities that are offered on the unit he said that he likes exercise and music. Pt was able to recall some facts and details. Pt has participated in a couple group sessions sense his admission. Per notes pt has been compliant with medications and interacts well with peers and staff. 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 Initial goal aimed to increase socialization and engagement. Pt will participate in at least three individual or group Activity Therapy sessions per week. Addendum: 06/03/21 at 1354 by JOSEPH MATA ACT Goal repeated 06/03
[2021-05-20 15:55] VITALS: BP 125/71
[2021-05-20] MEDS: MIRTAZAPINE 7.5 MG TABLET. PO SCH (20:14)
--- NOTE | 2021-05-20 22:02 | PDOC ---
Exam Note: Leo Note: Please also refer to the separate dictated note~for this date of service dictated separately.~Patient seen individually. Discussed the patient with Nursing staff reviewed the chart.~Reviewed interim history and current functioning. Reviewed vital signs,~Labs/ Radiology~and current medications noted below. Continue current treatment with the changes noted in the dictated addendum note Assessment: Vital Signs/I&O: Vital Signs Date Time Temp Pulse Resp B/P (MAP) Pulse Ox O2 Delivery O2 Flow Rate FiO2 05/20/21 17:14 65 125/71 05/20/21 15:55 97.2 20 97 05/18/21 05:48 Room Air I & O 05/19/21 05/19/21 05/20/21 15:00 23:00 07:00 Intake Total 720 ml 360 ml 240 ml Balance 720 ml 360 ml 240 ml Labs: Laboratory Tests Test 05/20/21 07:21 Glucose (Fingerstick) 106 mg/dL (70-99) H Current Medications: Meds: Laboratory Tests Test 05/20/21 07:21 Glucose (Fingerstick) 106 mg/dL Current Medications Medications (Trade) Dose Ordered Sig/Aparna Route PRN Reason Start Time Stop Time Status Last Admin Dose Admin Acetaminophen (Tylenol) 650 mg PRN Q6HRS PRN PO MILD PAIN / TEMP > 100.3'F 05/17/21 14:45 05/19/21 01:05 Multi-Ingredient Ointment (Analgesic [place]) 1 inna PRN QID PRN TP MUSCLE PAIN 05/17/21 14:45 Al Hydroxide/Mg Hydroxide (Mylanta Plus Xs) 15 ml PRN AFTMEALHC PRN PO DYSPEPSIA 05/17/21 14:45 Magnesium Hydroxide (Milk Of Magnesia) 2,400 mg PRN QHS PRN PO CONSTIPATION 05/17/21 14:45 Aspirin (Aspirin Enteric Coated) 81 mg DAILY PO 05/18/21 09:00 05/20/21 08:38 Budesonide (Pulmicort) 0.5 mg RTBID IH 05/17/21 20:00 05/18/21 13:26 DC Carvedilol (Coreg) 3.125 mg BIDWMEALS PO 05/17/21 17:00 05/20/21 17:14 Lisinopril (Prinivil) 5 mg DAILY PO 05/18/21 09:00 05/20/21 08:37 Metformin HCl (Glucophage Xr) 500 mg DAILYWBKFT PO 05/18/21 08:00 05/20/21 08:37 Phenytoin Sodium (Dilantin) 100 mg BID PO 05/17/21 21:00 05/18/21 21:00 DC 05/18/21 20:13 Tamsulosin HCl (Flomax) 0.4 mg DAILY PO 05/18/21 09:00 05/20/21 08:37 Cyanocobalamin (Vitamin B-12) 1,000 mcg DAILY PO 05/18/21 09:00 05/20/21 08:38 Non-Formulary Medication (Ipratropium/ Albuterol Sulfate (Combivent Respimat Inhal)) 1 puff QID INH 05/17/21 17:00 05/17/21 15:02 DC Atorvastatin Calcium (Lipitor) 10 mg DAILY PO 05/18/21 09:00 05/20/21 08:38 Albuterol/ Ipratropium (Duoneb) 3 ml RTQID NEB 05/17/21 16:00 05/17/21 20:45 DC Albuterol/ Ipratropium (Combivent Respimat 20-100 Mcg) 1 puff RTQID INH 05/17/21 20:00 05/20/21 20:14 Gabapentin (Neurontin) 300 mg BID PO 05/17/21 21:00 05/20/21 20:14 Fluticasone Furoate (ARNUITY 100mcg ELLIPTA) 1 puff DAILY INH 05/18/21 14:00 05/20/21 08:41 Phenytoin Sodium (Dilantin) 300 mg DAILY08 PO 05/19/21 08:00 05/20/21 08:38 Duloxetine HCl (Cymbalta) 30 mg DAILY PO 05/19/21 09:00 05/20/21 08:37 Mirtazapine (Remeron) 7.5 mg QHS PO 05/19/21 21:00 05/20/21 20:14 Trazodone HCl (Desyrel) 50 mg PRN QHS PRN PO sleep 05/19/21 12:30 I have reviewed the current psychotropics carefully including drug interactions. Risk benefit ratio favors no change other than as noted in my dictated progress note. Diagnosis: Problems: (1) Major depressive disorder (2) Impulse control disorder, unspecified (3) Anxiety disorder, unspecified (4) Dementia, vascular, with depression (5) Dementia, vascular, with delusions (6) Major neurocognitive disorder NIK LOYA MD May 20, 2021 22:02
--- NOTE | 2021-05-21 02:36 | NUR ---
Last evening pt sat in the day room and has been pleasant and cooperative. Meds were taken whole without difficulty. He as been cooperative with cares and has had no behaviors tonight.
[2021-05-21 05:50] VITALS: BP 128/69
[2021-05-21] MEDS: IPRATROPIUM/ALBUTEROL 20/100mcg/INH INHALER. INH SCH ×4 (08:00→20:55)
--- NOTE | 2021-05-21 08:07 | PDOC ---
Exam Note: Leo Note: This note is a late entry for 05/19/2021 covers elements not covered in my initial note. Subjective: The patient was reviewed in the morning of 05/19/2021 for a treatment team meeting with Jennifer Vizcarra, Riri Heck (social worker psychiatric), Maria Fernanda Feliciano, Grain Mixer, Tyesha, activity therapy and maicol Wesley RN iscussed and reviewed the chart. The patient slept 4-3/4 hours previous night. The patient complains of having bad dreams. He was confused previous night, compliant with medications. At treatment team meeting we discussed he would be living at an independent senior apartments and has been given 30 days notice. He may need a higher level of care. His nephew is assisting with this. Reportedly the safety concerns about walking and leaving the apartment. Review of Systems: Ambulation impaired with walker. No CV, , pulmonary, eye, ENT system symptoms on review. Mental Status Exam: The patient is reasonably oriented to himself and situation. Speech coherent. Abstraction fair. Computation impaired. Language function intact. Mood and affect depressed, anxious. No suicidal or homicidal ideation. Laboratory Data: Reviewed. 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 Anxiety disorder unspecified. Impulse control disorder unspecified. Plan: No change from initial note. We will maintain Cymbalta, gabapentin, may need to increase Cymbalta in due course. Adjust further as clinically indicated. Assessment: Vital Signs/I&O: Vital Signs Date Time Temp Pulse Resp B/P (MAP) Pulse Ox O2 Delivery O2 Flow Rate FiO2 05/21/21 05:50 97.2 69 18 128/69 (88) 94 05/18/21 05:48 Room Air I & O 05/20/21 05/20/21 05/21/21 15:00 23:00 07:00 Intake Total 720 ml 240 ml 240 ml Balance 720 ml 240 ml 240 ml Labs: Laboratory Tests Test 05/21/21 07:20 Glucose (Fingerstick) 88 mg/dL (70-99) Current Medications: Meds: Laboratory Tests Test 05/21/21 07:20 Glucose (Fingerstick) 88 mg/dL Current Medications Medications (Trade) Dose Ordered Sig/Aparna Route PRN Reason Start Time Stop Time Status Last Admin Dose Admin Acetaminophen (Tylenol) 650 mg PRN Q6HRS PRN PO MILD PAIN / TEMP > 100.3'F 05/17/21 14:45 05/19/21 01:05 Multi-Ingredient Ointment (Analgesic [place]) 1 inna PRN QID PRN TP MUSCLE PAIN 05/17/21 14:45 Al Hydroxide/Mg Hydroxide (Mylanta Plus Xs) 15 ml PRN AFTMEALHC PRN PO DYSPEPSIA 05/17/21 14:45 Magnesium Hydroxide (Milk Of Magnesia) 2,400 mg PRN QHS PRN PO CONSTIPATION 05/17/21 14:45 Aspirin (Aspirin Enteric Coated) 81 mg DAILY PO 05/18/21 09:00 05/20/21 08:38 Budesonide (Pulmicort) 0.5 mg RTBID IH 05/17/21 20:00 05/18/21 13:26 DC Carvedilol (Coreg) 3.125 mg BIDWMEALS PO 05/17/21 17:00 05/20/21 17:14 Lisinopril (Prinivil) 5 mg DAILY PO 05/18/21 09:00 05/20/21 08:37 Metformin HCl (Glucophage Xr) 500 mg DAILYWBKFT PO 05/18/21 08:00 05/20/21 08:37 Phenytoin Sodium (Dilantin) 100 mg BID PO 05/17/21 21:00 05/18/21 21:00 DC 05/18/21 20:13 Tamsulosin HCl (Flomax) 0.4 mg DAILY PO 05/18/21 09:00 05/20/21 08:37 Cyanocobalamin (Vitamin B-12) 1,000 mcg DAILY PO 05/18/21 09:00 05/20/21 08:38 Non-Formulary Medication (Ipratropium/ Albuterol Sulfate (Combivent Respimat Inhal)) 1 puff QID INH 05/17/21 17:00 05/17/21 15:02 DC Atorvastatin Calcium (Lipitor) 10 mg DAILY PO 05/18/21 09:00 05/20/21 08:38 Albuterol/ Ipratropium (Duoneb) 3 ml RTQID NEB 05/17/21 16:00 05/17/21 20:45 DC Albuterol/ Ipratropium (Combivent Respimat 20-100 Mcg) 1 puff RTQID INH 05/17/21 20:00 05/20/21 20:14 Gabapentin (Neurontin) 300 mg BID PO 05/17/21 21:00 05/20/21 20:14 Fluticasone Furoate (ARNUITY 100mcg ELLIPTA) 1 puff DAILY INH 05/18/21 14:00 05/20/21 08:41 Phenytoin Sodium (Dilantin) 300 mg DAILY08 PO 05/19/21 08:00 05/20/21 08:38 Duloxetine HCl (Cymbalta) 30 mg DAILY PO 05/19/21 09:00 05/20/21 08:37 Mirtazapine (Remeron) 7.5 mg QHS PO 05/19/21 21:00 05/20/21 20:14 Trazodone HCl (Desyrel) 50 mg PRN QHS PRN PO sleep 05/19/21 12:30 I have reviewed the current psychotropics carefully including drug interactions. Risk benefit ratio favors no change other than as noted in my dictated progress note. Diagnosis: Problems: (1) Major depressive disorder (2) Impulse control disorder, unspecified (3) Anxiety disorder, unspecified (4) Dementia, vascular, with depression (5) Dementia, vascular, with delusions (6) Major neurocognitive disorder NIK LOYA MD May 21, 2021 08:07
--- NOTE | 2021-05-21 08:22 | PDOC ---
Exam Note: Leo Note: This note is a late entry for 05/20/2021 covers elements not covered in my initial note. Subjective: The patient was seen individually in the evening of 05/20/2021 with Maryjane KOWALSKI, discussed and reviewed the chart. The patient slept 5-1/4 hours previous night. The patient was calm last night, naps off and on during the day. He was quite sedated. He is quite obese and we will do nocturnal oxygen screen to make sure he does not have sleep apnea. A formal assessment may have to be done post discharge. Review of Systems: Ambulation impaired with walker. No CV, , pulmonary, eye, ENT system symptoms on review. Mental Status Exam: The patient is reasonably oriented to himself and sit uation. Speech coherent. Abstraction fair. Computation impaired. Language function intact. Mood and affect depressed, anxious. No suicidal or homicidal ideation. Laboratory Data: Reviewed. 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 Anxiety disorder unspecified. Impulse control disorder unspecified. Plan: No change from initial note. Cymbalta may need to be increased beyond 30 mg a day. Continue Remeron unchanged. Assessment: Vital Signs/I&O: Vital Signs Date Time Temp Pulse Resp B/P (MAP) Pulse Ox O2 Delivery O2 Flow Rate FiO2 05/21/21 05:50 97.2 69 18 128/69 (88) 94 05/18/21 05:48 Room Air I & O 05/20/21 05/20/21 05/21/21 15:00 23:00 07:00 Intake Total 720 ml 240 ml 240 ml Balance 720 ml 240 ml 240 ml Labs: Laboratory Tests Test 05/21/21 07:20 Glucose (Fingerstick) 88 mg/dL (70-99) Current Medications: Meds: Laboratory Tests Test 05/21/21 07:20 Glucose (Fingerstick) 88 mg/dL Current Medications Medications (Trade) Dose Ordered Sig/Aparna Route PRN Reason Start Time Stop Time Status Last Admin Dose Admin Acetaminophen (Tylenol) 650 mg PRN Q6HRS PRN PO MILD PAIN / TEMP > 100.3'F 05/17/21 14:45 05/19/21 01:05 Multi-Ingredient Ointment (Analgesic [place]) 1 inna PRN QID PRN TP MUSCLE PAIN 05/17/21 14:45 Al Hydroxide/Mg Hydroxide (Mylanta Plus Xs) 15 ml PRN AFTMEALHC PRN PO DYSPEPSIA 05/17/21 14:45 Magnesium Hydroxide (Milk Of Magnesia) 2,400 mg PRN QHS PRN PO CONSTIPATION 05/17/21 14:45 Aspirin (Aspirin Enteric Coated) 81 mg DAILY PO 05/18/21 09:00 05/20/21 08:38 Budesonide (Pulmicort) 0.5 mg RTBID IH 05/17/21 20:00 05/18/21 13:26 DC Carvedilol (Coreg) 3.125 mg BIDWMEALS PO 05/17/21 17:00 05/20/21 17:14 Lisinopril (Prinivil) 5 mg DAILY PO 05/18/21 09:00 05/20/21 08:37 Metformin HCl (Glucophage Xr) 500 mg DAILYWBKFT PO 05/18/21 08:00 05/20/21 08:37 Phenytoin Sodium (Dilantin) 100 mg BID PO 05/17/21 21:00 05/18/21 21:00 DC 05/18/21 20:13 Tamsulosin HCl (Flomax) 0.4 mg DAILY PO 05/18/21 09:00 05/20/21 08:37 Cyanocobalamin (Vitamin B-12) 1,000 mcg DAILY PO 05/18/21 09:00 05/20/21 08:38 Non-Formulary Medication (Ipratropium/ Albuterol Sulfate (Combivent Respimat Inhal)) 1 puff QID INH 05/17/21 17:00 05/17/21 15:02 DC Atorvastatin Calcium (Lipitor) 10 mg DAILY PO 05/18/21 09:00 05/20/21 08:38 Albuterol/ Ipratropium (Duoneb) 3 ml RTQID NEB 05/17/21 16:00 05/17/21 20:45 DC Albuterol/ Ipratropium (Combivent Respimat 20-100 Mcg) 1 puff RTQID INH 05/17/21 20:00 05/20/21 20:14 Gabapentin (Neurontin) 300 mg BID PO 05/17/21 21:00 05/20/21 20:14 Fluticasone Furoate (ARNUITY 100mcg ELLIPTA) 1 puff DAILY INH 05/18/21 14:00 05/20/21 08:41 Phenytoin Sodium (Dilantin) 300 mg DAILY08 PO 05/19/21 08:00 05/20/21 08:38 Duloxetine HCl (Cymbalta) 30 mg DAILY PO 05/19/21 09:00 05/20/21 08:37 Mirtazapine (Remeron) 7.5 mg QHS PO 05/19/21 21:00 05/20/21 20:14 Trazodone HCl (Desyrel) 50 mg PRN QHS PRN PO sleep 05/19/21 12:30 I have reviewed the current psychotropics carefully including drug interactions. Risk benefit ratio favors no change other than as noted in my dictated progress note. Diagnosis: Problems: (1) Major depressive disorder (2) Impulse control disorder, unspecified (3) Anxiety disorder, unspecified (4) Dementia, vascular, with depression (5) Dementia, vascular, with delusions (6) Major neurocognitive disorder NIK LOYA MD May 21, 2021 08:22
[2021-05-21] MEDS: ATORVASTATIN CALCIUM 10 MG TABLET. PO SCH (08:24)
[2021-05-21] MEDS: metFORMIN XR 500 MG TAB.ER.24H PO SCH (08:24)
[2021-05-21] MEDS: PHENYTOIN SODIUM EXTENDED 100 MG CAPSULE PO SCH (08:24)
[2021-05-21] MEDS: LISINOPRIL 5 MG TABLET. PO SCH (08:24)
[2021-05-21] MEDS: GABAPENTIN 300 MG CAPSULE. PO SCH ×2 (08:24→20:55)
[2021-05-21] MEDS: CARVEDILOL 3.125 MG TABLET PO SCH ×2 (08:25→17:42)
[2021-05-21] MEDS: CYANOCOBALAMIN (VITAMIN B-12) 1,000 MCG TABLET. PO SCH (08:25)
[2021-05-21] MEDS: ASPIRIN ENTERIC COATED 81 MG TABLET.DR. PO SCH (08:25)
[2021-05-21] MEDS: DULoxetine HCL 30 MG CAPSULE.DR PO SCH (08:25)
[2021-05-21] MEDS: TAMSULOSIN 0.4 MG CAP.ER.24H. PO SCH (08:25)
--- NOTE | 2021-05-21 13:20 | NUR ---
Pt calm and cooperative this morning. He is A&O to self only, confused. He is compliant with whole medications. Absent of SI/HI/VH/AH/delusions at this time. His interactions with others have been appropriate. Per NOC report, pt's O2 sats have maintained an average of 92% RA. He continues to nap frequently in the day room. Plan of care continues, will pass to next shift.
[2021-05-21 15:58] VITALS: BP 117/66
[2021-05-21] MEDS: MIRTAZAPINE 7.5 MG TABLET. PO SCH (20:55)
--- NOTE | 2021-05-21 21:55 | PDOC ---
Exam Note: Leo Note: Please also refer to the separate dictated note~for this date of service dictated separately.~Patient seen individually. Discussed the patient with Nursing staff reviewed the chart.~Reviewed interim history and current functioning. Reviewed vital signs,~Labs/ Radiology~and current medications noted below. Continue current treatment with the changes noted in the dictated addendum note Assessment: Vital Signs/I&O: Vital Signs Date Time Temp Pulse Resp B/P (MAP) Pulse Ox O2 Delivery O2 Flow Rate FiO2 05/21/21 17:42 94 117/66 05/21/21 15:58 97.3 16 94 05/18/21 05:48 Room Air I & O 05/20/21 05/20/21 05/21/21 15:00 23:00 07:00 Intake Total 720 ml 240 ml 240 ml Balance 720 ml 240 ml 240 ml Labs: Laboratory Tests Test 05/21/21 07:20 Glucose (Fingerstick) 88 mg/dL (70-99) Current Medications: Meds: Laboratory Tests Test 05/21/21 07:20 Glucose (Fingerstick) 88 mg/dL Current Medications Medications (Trade) Dose Ordered Sig/Aparna Route PRN Reason Start Time Stop Time Status Last Admin Dose Admin Acetaminophen (Tylenol) 650 mg PRN Q6HRS PRN PO MILD PAIN / TEMP > 100.3'F 05/17/21 14:45 05/19/21 01:05 Multi-Ingredient Ointment (Analgesic [place]) 1 inna PRN QID PRN TP MUSCLE PAIN 05/17/21 14:45 Al Hydroxide/Mg Hydroxide (Mylanta Plus Xs) 15 ml PRN AFTMEALHC PRN PO DYSPEPSIA 05/17/21 14:45 Magnesium Hydroxide (Milk Of Magnesia) 2,400 mg PRN QHS PRN PO CONSTIPATION 05/17/21 14:45 Aspirin (Aspirin Enteric Coated) 81 mg DAILY PO 05/18/21 09:00 05/21/21 08:25 Budesonide (Pulmicort) 0.5 mg RTBID IH 05/17/21 20:00 05/18/21 13:26 DC Carvedilol (Coreg) 3.125 mg BIDWMEALS PO 05/17/21 17:00 05/21/21 17:42 Lisinopril (Prinivil) 5 mg DAILY PO 05/18/21 09:00 05/21/21 08:24 Metformin HCl (Glucophage Xr) 500 mg DAILYWBKFT PO 05/18/21 08:00 05/21/21 08:24 Phenytoin Sodium (Dilantin) 100 mg BID PO 05/17/21 21:00 05/18/21 21:00 DC 05/18/21 20:13 Tamsulosin HCl (Flomax) 0.4 mg DAILY PO 05/18/21 09:00 05/21/21 08:25 Cyanocobalamin (Vitamin B-12) 1,000 mcg DAILY PO 05/18/21 09:00 05/21/21 08:25 Non-Formulary Medication (Ipratropium/ Albuterol Sulfate (Combivent Respimat Inhal)) 1 puff QID INH 05/17/21 17:00 05/17/21 15:02 DC Atorvastatin Calcium (Lipitor) 10 mg DAILY PO 05/18/21 09:00 05/21/21 08:24 Albuterol/ Ipratropium (Duoneb) 3 ml RTQID NEB 05/17/21 16:00 05/17/21 20:45 DC Albuterol/ Ipratropium (Combivent Respimat 20-100 Mcg) 1 puff RTQID INH 05/17/21 20:00 05/21/21 20:55 Gabapentin (Neurontin) 300 mg BID PO 05/17/21 21:00 05/21/21 20:55 Fluticasone Furoate (ARNUITY 100mcg ELLIPTA) 1 puff DAILY INH 05/18/21 14:00 05/21/21 08:27 DC 05/20/21 08:41 Phenytoin Sodium (Dilantin) 300 mg DAILY08 PO 05/19/21 08:00 05/21/21 08:24 Duloxetine HCl (Cymbalta) 30 mg DAILY PO 05/19/21 09:00 05/21/21 08:25 Mirtazapine (Remeron) 7.5 mg QHS PO 05/19/21 21:00 05/21/21 20:55 Trazodone HCl (Desyrel) 50 mg PRN QHS PRN PO sleep 05/19/21 12:30 I have reviewed the current psychotropics carefully including drug interactions. Risk benefit ratio favors no change other than as noted in my dictated progress note. Diagnosis: Problems: (1) Major depressive disorder (2) Impulse control disorder, unspecified (3) Anxiety disorder, unspecified (4) Dementia, vascular, with depression (5) Dementia, vascular, with delusions (6) Major neurocognitive disorder NIK LOYA MD May 21, 2021 21:55
--- NOTE | 2021-05-22 02:00 | NUR ---
Nursing Note The patient was located in the day room for his assessment and medication pass. The patient took his medication whole and was pleasant during interactions with this nurse. The patient was alert to self only. The patient is currently sleeping in his room.
[2021-05-22 05:53] VITALS: BP 137/78
--- NOTE | 2021-05-22 06:58 | PDOC ---
Exam Note: Leo Note: This note is a late entry for 05/21/2021 covers elements not covered in my initial note. Subjective: The patient was seen individually in the evening of 05/21/2021 with Maryjane KOWALSKI, discussed and reviewed the chart. The patient slept 5-3/4 hours previous night. Oxygen saturations last overnight was 92%. He does not seem to have nocturnal desaturations. Review of Systems: Ambulation impaired with walker. No CV, , pulmonary, eye, ENT system symptoms on review. Mental Status Exam: The patient is reasonably oriented to himself and situation. He has been fairly pleasant and cooperative. Speech coherent. Abstraction fair. Computation impaired. Language function intact. Mood and af fect depressed, anxious. No suicidal or homicidal ideation. Laboratory Data: Reviewed. 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 Anxiety disorder unspecified. Impulse control disorder unspecified. Plan: No change from initial note. Dilantin, gabapentin, Cymbalta, Remeron, trazodone. Adjust as clinically indicated. Assessment: Vital Signs/I&O: Vital Signs Date Time Temp Pulse Resp B/P (MAP) Pulse Ox O2 Delivery O2 Flow Rate FiO2 05/22/21 05:53 97.7 88 18 137/78 (97) 94 05/18/21 05:48 Room Air I & O 05/21/21 05/21/21 05/22/21 15:00 23:00 07:00 Intake Total 960 ml 480 ml 240 ml Balance 960 ml 480 ml 240 ml Labs: Laboratory Tests Test 05/21/21 07:20 Glucose (Fingerstick) 88 mg/dL (70-99) Current Medications: Meds: Laboratory Tests Test 05/21/21 07:20 Glucose (Fingerstick) 88 mg/dL Current Medications Medications (Trade) Dose Ordered Sig/Aparna Route PRN Reason Start Time Stop Time Status Last Admin Dose Admin Acetaminophen (Tylenol) 650 mg PRN Q6HRS PRN PO MILD PAIN / TEMP > 100.3'F 05/17/21 14:45 05/19/21 01:05 Multi-Ingredient Ointment (Analgesic [place]) 1 inna PRN QID PRN TP MUSCLE PAIN 05/17/21 14:45 Al Hydroxide/Mg Hydroxide (Mylanta Plus Xs) 15 ml PRN AFTMEALHC PRN PO DYSPEPSIA 05/17/21 14:45 Magnesium Hydroxide (Milk Of Magnesia) 2,400 mg PRN QHS PRN PO CONSTIPATION 05/17/21 14:45 Aspirin (Aspirin Enteric Coated) 81 mg DAILY PO 05/18/21 09:00 05/21/21 08:25 Budesonide (Pulmicort) 0.5 mg RTBID IH 05/17/21 20:00 05/18/21 13:26 DC Carvedilol (Coreg) 3.125 mg BIDWMEALS PO 05/17/21 17:00 05/21/21 17:42 Lisinopril (Prinivil) 5 mg DAILY PO 05/18/21 09:00 05/21/21 08:24 Metformin HCl (Glucophage Xr) 500 mg DAILYWBKFT PO 05/18/21 08:00 05/21/21 08:24 Phenytoin Sodium (Dilantin) 100 mg BID PO 05/17/21 21:00 05/18/21 21:00 DC 05/18/21 20:13 Tamsulosin HCl (Flomax) 0.4 mg DAILY PO 05/18/21 09:00 05/21/21 08:25 Cyanocobalamin (Vitamin B-12) 1,000 mcg DAILY PO 05/18/21 09:00 05/21/21 08:25 Non-Formulary Medication (Ipratropium/ Albuterol Sulfate (Combivent Respimat Inhal)) 1 puff QID INH 05/17/21 17:00 05/17/21 15:02 DC Atorvastatin Calcium (Lipitor) 10 mg DAILY PO 05/18/21 09:00 05/21/21 08:24 Albuterol/ Ipratropium (Duoneb) 3 ml RTQID NEB 05/17/21 16:00 05/17/21 20:45 DC Albuterol/ Ipratropium (Combivent Respimat 20-100 Mcg) 1 puff RTQID INH 05/17/21 20:00 05/21/21 20:55 Gabapentin (Neurontin) 300 mg BID PO 05/17/21 21:00 05/21/21 20:55 Fluticasone Furoate (ARNUITY 100mcg ELLIPTA) 1 puff DAILY INH 05/18/21 14:00 05/21/21 08:27 DC 05/20/21 08:41 Phenytoin Sodium (Dilantin) 300 mg DAILY08 PO 05/19/21 08:00 05/21/21 08:24 Duloxetine HCl (Cymbalta) 30 mg DAILY PO 05/19/21 09:00 05/21/21 08:25 Mirtazapine (Remeron) 7.5 mg QHS PO 05/19/21 21:00 05/21/21 20:55 Trazodone HCl (Desyrel) 50 mg PRN QHS PRN PO sleep 05/19/21 12:30 I have reviewed the current psychotropics carefully including drug interactions. Risk benefit ratio favors no change other than as noted in my dictated progress note. Diagnosis: Problems: (1) Major depressive disorder (2) Impulse control disorder, unspecified (3) Anxiety disorder, unspecified (4) Dementia, vascular, with depression (5) Dementia, vascular, with delusions (6) Major neurocognitive disorder NIK LOYA MD May 22, 2021 06:58
[2021-05-22] MEDS: IPRATROPIUM/ALBUTEROL 20/100mcg/INH INHALER. INH SCH ×4 (08:00→21:10)
[2021-05-22] MEDS: CYANOCOBALAMIN (VITAMIN B-12) 1,000 MCG TABLET. PO SCH (08:18)
[2021-05-22] MEDS: GABAPENTIN 300 MG CAPSULE. PO SCH ×2 (08:18→21:10)
[2021-05-22] MEDS: CARVEDILOL 3.125 MG TABLET PO SCH ×2 (08:19→17:07)
[2021-05-22] MEDS: PHENYTOIN SODIUM EXTENDED 100 MG CAPSULE PO SCH (08:19)
[2021-05-22] MEDS: metFORMIN XR 500 MG TAB.ER.24H PO SCH (08:19)
[2021-05-22] MEDS: DULoxetine HCL 30 MG CAPSULE.DR PO SCH (08:19)
[2021-05-22] MEDS: LISINOPRIL 5 MG TABLET. PO SCH (08:19)
[2021-05-22] MEDS: TAMSULOSIN 0.4 MG CAP.ER.24H. PO SCH (08:20)
[2021-05-22] MEDS: ATORVASTATIN CALCIUM 10 MG TABLET. PO SCH (08:20)
[2021-05-22] MEDS: ASPIRIN ENTERIC COATED 81 MG TABLET.DR. PO SCH (09:00)
--- NOTE | 2021-05-22 14:16 | NUR ---
NURSING NOTE: Pt is alert to self et situation, but confused to place et time. He is calm, cooperative et conversational. Appropriate in his interactions with others. He tends toward self-isolation in room, avoiding group activity except mealtimes. Ambulates with 4 wheel walker on unit with minimal supervision. Denies pain in any location, but notes that he occasionally has BROWNE 2/2 old head injury. Reports no medical concerns at this time. Does not exhibit any wandering or exit-seeking behaviors.
[2021-05-22 16:10] VITALS: BP 131/70
[2021-05-22] MEDS: MIRTAZAPINE 7.5 MG TABLET. PO SCH (21:10)
--- NOTE | 2021-05-22 22:04 | PDOC ---
Exam Note: Leo Note: Please also refer to the separate dictated note~for this date of service dictated separately.~Patient seen individually. Discussed the patient with Nursing staff reviewed the chart.~Reviewed interim history and current functioning. Reviewed vital signs,~Labs/ Radiology~and current medications noted below. Continue current treatment with the changes noted in the dictated addendum note Assessment: Vital Signs/I&O: Vital Signs Date Time Temp Pulse Resp B/P (MAP) Pulse Ox O2 Delivery O2 Flow Rate FiO2 05/22/21 17:07 69 131/70 05/22/21 16:10 97.8 16 96 Room Air I & O 05/21/21 05/21/21 05/22/21 15:00 23:00 07:00 Intake Total 960 ml 480 ml 240 ml Balance 960 ml 480 ml 240 ml Labs: Laboratory Tests Test 05/22/21 07:39 Glucose (Fingerstick) 92 mg/dL (70-99) Current Medications: Meds: Laboratory Tests Test 05/22/21 07:39 Glucose (Fingerstick) 92 mg/dL Current Medications Medications (Trade) Dose Ordered Sig/Aparna Route PRN Reason Start Time Stop Time Status Last Admin Dose Admin Acetaminophen (Tylenol) 650 mg PRN Q6HRS PRN PO MILD PAIN / TEMP > 100.3'F 05/17/21 14:45 05/19/21 01:05 Multi-Ingredient Ointment (Analgesic [place]) 1 inna PRN QID PRN TP MUSCLE PAIN 05/17/21 14:45 Al Hydroxide/Mg Hydroxide (Mylanta Plus Xs) 15 ml PRN AFTMEALHC PRN PO DYSPEPSIA 05/17/21 14:45 Magnesium Hydroxide (Milk Of Magnesia) 2,400 mg PRN QHS PRN PO CONSTIPATION 05/17/21 14:45 Aspirin (Aspirin Enteric Coated) 81 mg DAILY PO 05/18/21 09:00 05/22/21 09:00 Budesonide (Pulmicort) 0.5 mg RTBID IH 05/17/21 20:00 05/18/21 13:26 DC Carvedilol (Coreg) 3.125 mg BIDWMEALS PO 05/17/21 17:00 05/22/21 17:07 Lisinopril (Prinivil) 5 mg DAILY PO 05/18/21 09:00 05/22/21 08:19 Metformin HCl (Glucophage Xr) 500 mg DAILYWBKFT PO 05/18/21 08:00 05/22/21 08:19 Phenytoin Sodium (Dilantin) 100 mg BID PO 05/17/21 21:00 05/18/21 21:00 DC 05/18/21 20:13 Tamsulosin HCl (Flomax) 0.4 mg DAILY PO 05/18/21 09:00 05/22/21 08:20 Cyanocobalamin (Vitamin B-12) 1,000 mcg DAILY PO 05/18/21 09:00 05/22/21 08:18 Non-Formulary Medication (Ipratropium/ Albuterol Sulfate (Combivent Respimat Inhal)) 1 puff QID INH 05/17/21 17:00 05/17/21 15:02 DC Atorvastatin Calcium (Lipitor) 10 mg DAILY PO 05/18/21 09:00 05/22/21 08:20 Albuterol/ Ipratropium (Duoneb) 3 ml RTQID NEB 05/17/21 16:00 05/17/21 20:45 DC Albuterol/ Ipratropium (Combivent Respimat 20-100 Mcg) 1 puff RTQID INH 05/17/21 20:00 05/22/21 21:10 Gabapentin (Neurontin) 300 mg BID PO 05/17/21 21:00 05/22/21 21:10 Fluticasone Furoate (ARNUITY 100mcg ELLIPTA) 1 puff DAILY INH 05/18/21 14:00 05/21/21 08:27 DC 05/20/21 08:41 Phenytoin Sodium (Dilantin) 300 mg DAILY08 PO 05/19/21 08:00 05/22/21 08:19 Duloxetine HCl (Cymbalta) 30 mg DAILY PO 05/19/21 09:00 05/22/21 08:19 Mirtazapine (Remeron) 7.5 mg QHS PO 05/19/21 21:00 05/22/21 21:10 Trazodone HCl (Desyrel) 50 mg PRN QHS PRN PO sleep 05/19/21 12:30 I have reviewed the current psychotropics carefully including drug interactions. Risk benefit ratio favors no change other than as noted in my dictated progress note. Diagnosis: Problems: (1) Major depressive disorder (2) Impulse control disorder, unspecified (3) Anxiety disorder, unspecified (4) Dementia, vascular, with depression (5) Dementia, vascular, with delusions (6) Major neurocognitive disorder NIK LOYA MD May 22, 2021 22:04
--- NOTE | 2021-05-23 03:46 | NUR ---
Nursing Note The patient was located in his room for his assessment and medication pass. 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 The patient was able to state his name and that he was in the hospital. The patient took his medication whole. The patient is currently sleeping in his room.
[2021-05-23 05:46] VITALS: BP 106/67
[2021-05-23] MEDS: ACETAMINOPHEN 325 MG TABLET PO PRN (06:42)
[2021-05-23] MEDS: IPRATROPIUM/ALBUTEROL 20/100mcg/INH INHALER. INH SCH ×4 (06:49→20:32)
[2021-05-23] MEDS: metFORMIN XR 500 MG TAB.ER.24H PO SCH (08:05)
[2021-05-23] MEDS: TAMSULOSIN 0.4 MG CAP.ER.24H. PO SCH (08:06)
[2021-05-23] MEDS: ASPIRIN ENTERIC COATED 81 MG TABLET.DR. PO SCH (08:06)
[2021-05-23] MEDS: DULoxetine HCL 30 MG CAPSULE.DR PO SCH (08:06)
[2021-05-23] MEDS: GABAPENTIN 300 MG CAPSULE. PO SCH ×2 (08:06→20:31)
[2021-05-23] MEDS: PHENYTOIN SODIUM EXTENDED 100 MG CAPSULE PO SCH (08:06)
[2021-05-23] MEDS: ATORVASTATIN CALCIUM 10 MG TABLET. PO SCH (08:06)
[2021-05-23] MEDS: CARVEDILOL 3.125 MG TABLET PO SCH ×2 (08:06→17:00)
[2021-05-23] MEDS: CYANOCOBALAMIN (VITAMIN B-12) 1,000 MCG TABLET. PO SCH (08:07)
[2021-05-23] MEDS: LISINOPRIL 5 MG TABLET. PO SCH (08:07)
--- NOTE | 2021-05-23 09:31 | NUR ---
Pt appropriate this morning, he has been visible on the unit. His interactions with others have been appropriate. He is compliant with whole medications and is able to follow staff instructions/requests. He has been absent of SI/HI/VH/AH/delusions. He denies pain when asked. No PRN medications have been administered so far this shift, he denies pain when asked. Plan fo care continues, will pass to next shift.
[2021-05-23 16:25] VITALS: BP 118/81
[2021-05-23] MEDS: MIRTAZAPINE 7.5 MG TABLET. PO SCH (20:31)
--- NOTE | 2021-05-23 22:00 | PDOC ---
Exam Note: Leo Note: Please also refer to the separate dictated note~for this date of service dictated separately.~Patient seen individually. Discussed the patient with Nursing staff reviewed the chart.~Reviewed interim history and current functioning. Reviewed vital signs,~Labs/ Radiology~and current medications noted below. Continue current treatment with the changes noted in the dictated addendum note Assessment: Vital Signs/I&O: Vital Signs Date Time Temp Pulse Resp B/P (MAP) Pulse Ox O2 Delivery O2 Flow Rate FiO2 05/23/21 17:00 74 118/81 05/23/21 16:25 97.8 16 94 Room Air I & O 05/22/21 05/22/21 05/23/21 15:00 23:00 07:00 Intake Total 600 ml 480 ml Balance 600 ml 480 ml Labs: Laboratory Tests Test 05/23/21 07:53 Glucose (Fingerstick) 103 mg/dL (70-99) H Current Medications: Meds: Laboratory Tests Test 05/23/21 07:53 Glucose (Fingerstick) 103 mg/dL Current Medications Medications (Trade) Dose Ordered Sig/Aparna Route PRN Reason Start Time Stop Time Status Last Admin Dose Admin Acetaminophen (Tylenol) 650 mg PRN Q6HRS PRN PO MILD PAIN / TEMP > 100.3'F 05/17/21 14:45 05/23/21 06:42 Multi-Ingredient Ointment (Analgesic [place]) 1 inna PRN QID PRN TP MUSCLE PAIN 05/17/21 14:45 Al Hydroxide/Mg Hydroxide (Mylanta Plus Xs) 15 ml PRN AFTMEALHC PRN PO DYSPEPSIA 05/17/21 14:45 Magnesium Hydroxide (Milk Of Magnesia) 2,400 mg PRN QHS PRN PO CONSTIPATION 05/17/21 14:45 Aspirin (Aspirin Enteric Coated) 81 mg DAILY PO 05/18/21 09:00 05/23/21 08:06 Budesonide (Pulmicort) 0.5 mg RTBID IH 05/17/21 20:00 05/18/21 13:26 DC Carvedilol (Coreg) 3.125 mg BIDWMEALS PO 05/17/21 17:00 05/23/21 17:00 Lisinopril (Prinivil) 5 mg DAILY PO 05/18/21 09:00 05/23/21 08:07 Metformin HCl (Glucophage Xr) 500 mg DAILYWBKFT PO 05/18/21 08:00 05/23/21 08:05 Phenytoin Sodium (Dilantin) 100 mg BID PO 05/17/21 21:00 05/18/21 21:00 DC 05/18/21 20:13 Tamsulosin HCl (Flomax) 0.4 mg DAILY PO 05/18/21 09:00 05/23/21 08:06 Cyanocobalamin (Vitamin B-12) 1,000 mcg DAILY PO 05/18/21 09:00 05/23/21 08:07 Non-Formulary Medication (Ipratropium/ Albuterol Sulfate (Combivent Respimat Inhal)) 1 puff QID INH 05/17/21 17:00 05/17/21 15:02 DC Atorvastatin Calcium (Lipitor) 10 mg DAILY PO 05/18/21 09:00 05/23/21 08:06 Albuterol/ Ipratropium (Duoneb) 3 ml RTQID NEB 05/17/21 16:00 05/17/21 20:45 DC Albuterol/ Ipratropium (Combivent Respimat 20-100 Mcg) 1 puff RTQID INH 05/17/21 20:00 05/23/21 20:32 Gabapentin (Neurontin) 300 mg BID PO 05/17/21 21:00 05/23/21 20:31 Fluticasone Furoate (ARNUITY 100mcg ELLIPTA) 1 puff DAILY INH 05/18/21 14:00 05/21/21 08:27 DC 05/20/21 08:41 Phenytoin Sodium (Dilantin) 300 mg DAILY08 PO 05/19/21 08:00 05/23/21 08:06 Duloxetine HCl (Cymbalta) 30 mg DAILY PO 05/19/21 09:00 05/23/21 08:06 Mirtazapine (Remeron) 7.5 mg QHS PO 05/19/21 21:00 05/23/21 20:31 Trazodone HCl (Desyrel) 50 mg PRN QHS PRN PO sleep 05/19/21 12:30 I have reviewed the current psychotropics carefully including drug interactions. Risk benefit ratio favors no change other than as noted in my dictated progress note. Diagnosis: Problems: (1) Major depressive disorder (2) Impulse control disorder, unspecified (3) Anxiety disorder, unspecified (4) Dementia, vascular, with depression (5) Dementia, vascular, with delusions (6) Major neurocognitive disorder NIK LOYA MD May 23, 2021 22:00
--- NOTE | 2021-05-23 23:18 | NUR ---
Nursing Note The patient was located in his room for his assessment and medication pass. The patient was alert to name and location. 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 The patient talked about his fears that his family is trying to steal his money. The patient was pleasant during interactions with this nurse. The patient took his medication whole. The patient is currently sleeping in his room.
[2021-05-24 06:02] VITALS: BP 106/61
--- NOTE | 2021-05-24 07:19 | PDOC ---
Exam Note: Leo Note: This note is a late entry for 05/22/2021 covers elements not covered in my initial note. Subjective: The patient was seen individually in the evening of 05/22/2021 with Monisha KOWALSKI, discussed and reviewed the chart. The patient slept 7-1/4 hours previous night. He remains somewhat isolative, spends much time in his room, little interaction with others. He has not been agitated. Review of Systems: Ambulation impaired with walker. No CV, , pulmonary, eye, ENT system symptoms on review. Mental Status Exam: The patient is reasonably oriented to himself and situation. Speech coherent, has some latency. Abstraction fair. Computation impaired. Language function intact. Attention span short. Mood and affect somewhat withdrawn, less depressed. Laboratory Data: Reviewed. 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 Anxiety disorder unspecified. Impulse control disorder unspecified. Plan: No change from initial note Dilantin, gabapentin, Cymbalta, Remeron, tr azodone. Adjust as clinically indicated. Assessment: Vital Signs/I&O: Vital Signs Date Time Temp Pulse Resp B/P (MAP) Pulse Ox O2 Delivery O2 Flow Rate FiO2 05/24/21 06:02 97.8 69 18 106/61 (76) 92 Room Air I & O 05/23/21 05/23/21 05/24/21 14:59 22:59 06:59 Intake Total 360 ml 840 ml Balance 360 ml 840 ml Labs: Laboratory Tests Test 05/23/21 07:53 Glucose (Fingerstick) 103 mg/dL (70-99) H Current Medications: Meds: Laboratory Tests Test 05/23/21 07:53 Glucose (Fingerstick) 103 mg/dL Current Medications Medications (Trade) Dose Ordered Sig/Aparna Route PRN Reason Start Time Stop Time Status Last Admin Dose Admin Acetaminophen (Tylenol) 650 mg PRN Q6HRS PRN PO MILD PAIN / TEMP > 100.3'F 05/17/21 14:45 05/23/21 06:42 Multi-Ingredient Ointment (Analgesic [place]) 1 inna PRN QID PRN TP MUSCLE PAIN 05/17/21 14:45 Al Hydroxide/Mg Hydroxide (Mylanta Plus Xs) 15 ml PRN AFTMEALHC PRN PO DYSPEPSIA 05/17/21 14:45 Magnesium Hydroxide (Milk Of Magnesia) 2,400 mg PRN QHS PRN PO CONSTIPATION 05/17/21 14:45 Aspirin (Aspirin Enteric Coated) 81 mg DAILY PO 05/18/21 09:00 05/23/21 08:06 Budesonide (Pulmicort) 0.5 mg RTBID IH 05/17/21 20:00 05/18/21 13:26 DC Carvedilol (Coreg) 3.125 mg BIDWMEALS PO 05/17/21 17:00 05/23/21 17:00 Lisinopril (Prinivil) 5 mg DAILY PO 05/18/21 09:00 05/23/21 08:07 Metformin HCl (Glucophage Xr) 500 mg DAILYWBKFT PO 05/18/21 08:00 05/23/21 08:05 Phenytoin Sodium (Dilantin) 100 mg BID PO 05/17/21 21:00 05/18/21 21:00 DC 05/18/21 20:13 Tamsulosin HCl (Flomax) 0.4 mg DAILY PO 05/18/21 09:00 05/23/21 08:06 Cyanocobalamin (Vitamin B-12) 1,000 mcg DAILY PO 05/18/21 09:00 05/23/21 08:07 Non-Formulary Medication (Ipratropium/ Albuterol Sulfate (Combivent Respimat Inhal)) 1 puff QID INH 05/17/21 17:00 05/17/21 15:02 DC Atorvastatin Calcium (Lipitor) 10 mg DAILY PO 05/18/21 09:00 05/23/21 08:06 Albuterol/ Ipratropium (Duoneb) 3 ml RTQID NEB 05/17/21 16:00 05/17/21 20:45 DC Albuterol/ Ipratropium (Combivent Respimat 20-100 Mcg) 1 puff RTQID INH 05/17/21 20:00 05/23/21 20:32 Gabapentin (Neurontin) 300 mg BID PO 05/17/21 21:00 05/23/21 20:31 Fluticasone Furoate (ARNUITY 100mcg ELLIPTA) 1 puff DAILY INH 05/18/21 14:00 05/21/21 08:27 DC 05/20/21 08:41 Phenytoin Sodium (Dilantin) 300 mg DAILY08 PO 05/19/21 08:00 05/23/21 08:06 Duloxetine HCl (Cymbalta) 30 mg DAILY PO 05/19/21 09:00 05/23/21 08:06 Mirtazapine (Remeron) 7.5 mg QHS PO 05/19/21 21:00 05/23/21 20:31 Trazodone HCl (Desyrel) 50 mg PRN QHS PRN PO sleep 05/19/21 12:30 I have reviewed the current psychotropics carefully including drug interactions. Risk benefit ratio favors no change other than as noted in my dictated progress note. Diagnosis: Problems: (1) Major depressive disorder (2) Impulse control disorder, unspecified (3) Anxiety disorder, unspecified (4) Dementia, vascular, with depression (5) Dementia, vascular, with delusions (6) Major neurocognitive disorder NIK LOYA MD May 24, 2021 07:19
--- NOTE | 2021-05-24 07:35 | PDOC ---
Exam Note: Leo Note: This note is a late entry for 05/23/2021 covers elements not covered in my initial note. Subjective: The patient was seen individually in the evening of 05/23/2021 with Maryjane KOWALSKI, discussed and reviewed the chart. The patient slept 7-1/4 hours previous night. He is compliant with medications, took a nap during the day, less interactions noted. Review of Systems: Ambulation impaired with walker. No CV, , pulmonary, eye, ENT system symptoms on review. Mental Status Exam: The patient is reasonably oriented to himself and situation. Speech coherent, has some latency. Abstraction fair. Computation impaired. Language function intact. Attention span short. Mood and affect somewhat withdrawn. Laboratory Data: Reviewed. 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 Anxiety disorder unspecified. Impulse control disorder unspecified. Plan: No change from initial note. Assessment: Vital Signs/I&O: Vital Signs Date Time Temp Pulse Resp B/P (MAP) Pulse Ox O2 Delivery O2 Flow Rate FiO2 05/24/21 06:02 97.8 69 18 106/61 (76) 92 Room Air I & O 05/23/21 05/23/21 05/24/21 15:00 23:00 07:00 Intake Total 360 ml 840 ml Balance 360 ml 840 ml Labs: Laboratory Tests Test 05/23/21 07:53 05/24/21 07:23 Glucose (Fingerstick) 103 mg/dL (70-99) H 89 mg/dL (70-99) Current Medications: Meds: Laboratory Tests Test 05/23/21 07:53 05/24/21 07:23 Glucose (Fingerstick) 103 mg/dL 89 mg/dL Current Medications Medications (Trade) Dose Ordered Sig/Aparna Route PRN Reason Start Time Stop Time Status Last Admin Dose Admin Acetaminophen (Tylenol) 650 mg PRN Q6HRS PRN PO MILD PAIN / TEMP > 100.3'F 05/17/21 14:45 05/23/21 06:42 Multi-Ingredient Ointment (Analgesic [place]) 1 inna PRN QID PRN TP MUSCLE PAIN 05/17/21 14:45 Al Hydroxide/Mg Hydroxide (Mylanta Plus Xs) 15 ml PRN AFTMEALHC PRN PO DYSPEPSIA 05/17/21 14:45 Magnesium Hydroxide (Milk Of Magnesia) 2,400 mg PRN QHS PRN PO CONSTIPATION 05/17/21 14:45 Aspirin (Aspirin Enteric Coated) 81 mg DAILY PO 05/18/21 09:00 05/23/21 08:06 Budesonide (Pulmicort) 0.5 mg RTBID IH 05/17/21 20:00 05/18/21 13:26 DC Carvedilol (Coreg) 3.125 mg BIDWMEALS PO 05/17/21 17:00 05/23/21 17:00 Lisinopril (Prinivil) 5 mg DAILY PO 05/18/21 09:00 05/23/21 08:07 Metformin HCl (Glucophage Xr) 500 mg DAILYWBKFT PO 05/18/21 08:00 05/23/21 08:05 Phenytoin Sodium (Dilantin) 100 mg BID PO 05/17/21 21:00 05/18/21 21:00 DC 05/18/21 20:13 Tamsulosin HCl (Flomax) 0.4 mg DAILY PO 05/18/21 09:00 05/23/21 08:06 Cyanocobalamin (Vitamin B-12) 1,000 mcg DAILY PO 05/18/21 09:00 05/23/21 08:07 Non-Formulary Medication (Ipratropium/ Albuterol Sulfate (Combivent Respimat Inhal)) 1 puff QID INH 05/17/21 17:00 05/17/21 15:02 DC Atorvastatin Calcium (Lipitor) 10 mg DAILY PO 05/18/21 09:00 05/23/21 08:06 Albuterol/ Ipratropium (Duoneb) 3 ml RTQID NEB 05/17/21 16:00 05/17/21 20:45 DC Albuterol/ Ipratropium (Combivent Respimat 20-100 Mcg) 1 puff RTQID INH 05/17/21 20:00 05/23/21 20:32 Gabapentin (Neurontin) 300 mg BID PO 05/17/21 21:00 05/23/21 20:31 Fluticasone Furoate (ARNUITY 100mcg ELLIPTA) 1 puff DAILY INH 05/18/21 14:00 05/21/21 08:27 DC 05/20/21 08:41 Phenytoin Sodium (Dilantin) 300 mg DAILY08 PO 05/19/21 08:00 05/23/21 08:06 Duloxetine HCl (Cymbalta) 30 mg DAILY PO 05/19/21 09:00 05/23/21 08:06 Mirtazapine (Remeron) 7.5 mg QHS PO 05/19/21 21:00 05/23/21 20:31 Trazodone HCl (Desyrel) 50 mg PRN QHS PRN PO sleep 05/19/21 12:30 I have reviewed the current psychotropics carefully including drug interactions. Risk benefit ratio favors no change other than as noted in my dictated progress note. Diagnosis: Problems: (1) Major depressive disorder (2) Impulse control disorder, unspecified (3) Anxiety disorder, unspecified (4) Dementia, vascular, with depression (5) Dementia, vascular, with delusions (6) Major neurocognitive disorder NIK LOYA MD May 24, 2021 07:35
[2021-05-24] MEDS: IPRATROPIUM/ALBUTEROL 20/100mcg/INH INHALER. INH SCH ×4 (08:00→20:00)
[2021-05-24] MEDS: TAMSULOSIN 0.4 MG CAP.ER.24H. PO SCH (08:37)
[2021-05-24] MEDS: CYANOCOBALAMIN (VITAMIN B-12) 1,000 MCG TABLET. PO SCH (08:37)
[2021-05-24] MEDS: GABAPENTIN 300 MG CAPSULE. PO SCH ×2 (08:37→20:30)
[2021-05-24] MEDS: PHENYTOIN SODIUM EXTENDED 100 MG CAPSULE PO SCH (08:38)
[2021-05-24] MEDS: metFORMIN XR 500 MG TAB.ER.24H PO SCH (08:38)
[2021-05-24] MEDS: CARVEDILOL 3.125 MG TABLET PO SCH ×2 (08:38→17:00)
[2021-05-24] MEDS: ASPIRIN ENTERIC COATED 81 MG TABLET.DR. PO SCH (08:38)
[2021-05-24] MEDS: DULoxetine HCL 30 MG CAPSULE.DR PO SCH (08:38)
[2021-05-24] MEDS: LISINOPRIL 5 MG TABLET. PO SCH (08:39)
[2021-05-24] MEDS: ATORVASTATIN CALCIUM 10 MG TABLET. PO SCH (08:39)
--- NOTE | 2021-05-24 09:53 | NUR ---
Pt A&O to name, , and place only. He is med compliant and appropriate with his interactions with others. He is able to make his needs known to others and verbalizes no complaints or concerns at this time. No SI/HI/VH/AH/delusions/pain expressed. After breakfast he went right back to bed to nap some more. During breakfast he spoke about all the wood he would have to chop during the winter for his fireplace and wood burning stove. Plan of care continues, will pass to next shift.
[2021-05-24 10:03] LABS: BASO % 1 % (0-3); EOS # 0.4 x10^3/uL (0.0-0.7); EOS % 5 % (0-3); HEMATOCRIT 30.8 % (39.0-53.0); HEMOGLOBIN 10.5 g/dL (13.0-17.5); LYMPH # 2.5 x10^3/uL (1.0-4.8); LYMPH % 33 % (24-48); MEAN CORPUSCULAR HEMOGLOBIN 35 pg (25-35); MEAN CORPUSCULAR HGB CONC 34 g/dL (31-37); MEAN CORPUSCULAR VOLUME 102 fL (79-100); MONO # 0.7 x10^3/uL (0.0-1.1); MONO % 10 % (0-9); NEUT # 3.9 x10^3uL (1.8-7.7); NEUT % 51 % (31-73); PLATELET COUNT 106 x10^3/uL (140-400); RED BLOOD COUNT 3.02 x10^6/uL (4.30-5.70); WHITE BLOOD COUNT 7.6 x10^3/uL (4.0-11.0)
[2021-05-24 10:32] LABS: ALBUMIN 3.2 g/dL (3.4-5.0); CREATININE 1.6 mg/dL (0.7-1.3); POTASSIUM 5.1 mmol/L (3.5-5.1); TOTAL BILIRUBIN 0.3 mg/dL (0.2-1.0); TOTAL PROTEIN 6.3 g/dL (6.4-8.2)
[2021-05-24 10:39] LABS: CALCIUM 8.5 mg/dL (8.5-10.1)
--- NOTE | 2021-05-24 12:26 | NUR ---
CNAs report to this nurse that pt has been making inappropriate comments to them during shift. During morning blood sugars pt told DE[employer] CONTROL OPERATOR he would allow her to check his blood if "you show me your tits." During lunch pt began to criticize how CNAs were serving lunch to another patient. Pt referred to CNAs as "dumbasses."
[2021-05-24 16:19] VITALS: BP 122/71
[2021-05-24] MEDS: MIRTAZAPINE 7.5 MG TABLET. PO SCH (20:30)
--- NOTE | 2021-05-24 23:17 | NUR ---
Pt sitting calmly in dayroom this evening. Pleasant and compliant with whole medications. Pt politely refused his shower this evening, stating that he likes to take showers in the morning after breakfast.
--- NOTE | 2021-05-24 23:21 | PDOC ---
Exam Note: Leo Note: Please also refer to the separate dictated note~for this date of service dictated separately.~Patient seen individually. Discussed the patient with Nursing staff reviewed the chart.~Reviewed interim history and current functioning. Reviewed vital signs,~Labs/ Radiology~and current medications noted below. Continue current treatment with the changes noted in the dictated addendum note Assessment: Vital Signs/I&O: Vital Signs Date Time Temp Pulse Resp B/P (MAP) Pulse Ox O2 Delivery O2 Flow Rate FiO2 05/24/21 17:00 74 122/71 05/24/21 16:19 98.0 18 95 05/24/21 06:02 Room Air I & O 05/23/21 05/23/21 05/24/21 15:00 23:00 07:00 Intake Total 360 ml 840 ml Balance 360 ml 840 ml Labs: Laboratory Tests Test 05/24/21 07:23 05/24/21 09:20 Glucose (Fingerstick) 89 mg/dL (70-99) White Blood Count 7.6 x10^3/uL (4.0-11.0) Red Blood Count 3.02 x10^6/uL (4.30-5.70) L Hemoglobin 10.5 g/dL (13.0-17.5) L Hematocrit 30.8 % (39.0-53.0) L Mean Corpuscular Volume 102 fL (79-100) H Mean Corpuscular Hemoglobin 35 pg (25-35) Mean Corpuscular Hemoglobin Concent 34 g/dL (31-37) Red Cell Distribution Width 13.0 % (11.5-14.5) Platelet Count 106 x10^3/uL (140-400) L Neutrophils (%) (Auto) 51 % (31-73) Lymphocytes (%) (Auto) 33 % (24-48) Monocytes (%) (Auto) 10 % (0-9) H Eosinophils (%) (Auto) 5 % (0-3) H Basophils (%) (Auto) 1 % (0-3) Neutrophils # (Auto) 3.9 x10^3uL (1.8-7.7) Lymphocytes # (Auto) 2.5 x10^3/uL (1.0-4.8) Monocytes # (Auto) 0.7 x10^3/uL (0.0-1.1) Eosinophils # (Auto) 0.4 x10^3/uL (0.0-0.7) Basophils # (Auto) 0.0 x10^3/uL (0.0-0.2) Sodium Level 147 mmol/L (136-145) H Potassium Level 5.1 mmol/L (3.5-5.1) Chloride Level 113 mmol/L (98-107) H Carbon Dioxide Level 27 mmol/L (21-32) Anion Gap 7 (6-14) Blood Urea Nitrogen 47 mg/dL (8-26) H Creatinine 1.6 mg/dL (0.7-1.3) H Estimated GFR (Cockcroft-Gault) 42.0 BUN/Creatinine Ratio 29 (6-20) H Glucose Level 144 mg/dL (70-99) H Calcium Level 8.5 mg/dL (8.5-10.1) Total Bilirubin 0.3 mg/dL (0.2-1.0) Aspartate Amino Transferase (AST) 12 U/L (15-37) L Alanine Aminotransferase (ALT) 16 U/L (16-63) Alkaline Phosphatase 107 U/L (46-116) Total Protein 6.3 g/dL (6.4-8.2) L Albumin 3.2 g/dL (3.4-5.0) L Albumin/Globulin Ratio 1.0 (1.0-1.7) Current Medications: Meds: Laboratory Tests Test 05/24/21 07:23 05/24/21 09:20 Glucose (Fingerstick) 89 mg/dL White Blood Count 7.6 x10^3/uL Red Blood Count 3.02 x10^6/uL Hemoglobin 10.5 g/dL Hematocrit 30.8 % Mean Corpuscular Volume 102 fL Mean Corpuscular Hemoglobin 35 pg Mean Corpuscular Hemoglobin Concent 34 g/dL Red Cell Distribution Width 13.0 % Platelet Count 106 x10^3/uL Neutrophils (%) (Auto) 51 % Lymphocytes (%) (Auto) 33 % Monocytes (%) (Auto) 10 % Eosinophils (%) (Auto) 5 % Basophils (%) (Auto) 1 % Neutrophils # (Auto) 3.9 x10^3uL Lymphocytes # (Auto) 2.5 x10^3/uL Monocytes # (Auto) 0.7 x10^3/uL Eosinophils # (Auto) 0.4 x10^3/uL Basophils # (Auto) 0.0 x10^3/uL Sodium Level 147 mmol/L Potassium Level 5.1 mmol/L Chloride Level 113 mmol/L Carbon Dioxide Level 27 mmol/L Anion Gap 7 Blood Urea Nitrogen 47 mg/dL Creatinine 1.6 mg/dL Estimated GFR (Cockcroft-Gault) 42.0 BUN/Creatinine Ratio 29 Glucose Level 144 mg/dL Calcium Level 8.5 mg/dL Total Bilirubin 0.3 mg/dL Aspartate Amino Transf (AST/SGOT) 12 U/L Alanine Aminotransferase (ALT/SGPT) 16 U/L Alkaline Phosphatase 107 U/L Total Protein 6.3 g/dL Albumin 3.2 g/dL Albumin/Globulin Ratio 1.0 Current Medications Medications (Trade) Dose Ordered Sig/Aparna Route PRN Reason Start Time Stop Time Status Last Admin Dose Admin Acetaminophen (Tylenol) 650 mg PRN Q6HRS PRN PO MILD PAIN / TEMP > 100.3'F 05/17/21 14:45 05/23/21 06:42 Multi-Ingredient Ointment (Analgesic [place]) 1 inna PRN QID PRN TP MUSCLE PAIN 05/17/21 14:45 Al Hydroxide/Mg Hydroxide (Mylanta Plus Xs) 15 ml PRN AFTMEALHC PRN PO DYSPEPSIA 05/17/21 14:45 Magnesium Hydroxide (Milk Of Magnesia) 2,400 mg PRN QHS PRN PO CONSTIPATION 05/17/21 14:45 Aspirin (Aspirin Enteric Coated) 81 mg DAILY PO 05/18/21 09:00 05/24/21 08:38 Budesonide (Pulmicort) 0.5 mg RTBID IH 05/17/21 20:00 05/18/21 13:26 DC Carvedilol (Coreg) 3.125 mg BIDWMEALS PO 05/17/21 17:00 05/24/21 17:00 Lisinopril (Prinivil) 5 mg DAILY PO 05/18/21 09:00 05/24/21 08:39 Metformin HCl (Glucophage Xr) 500 mg DAILYWBKFT PO 05/18/21 08:00 05/24/21 08:38 Phenytoin Sodium (Dilantin) 100 mg BID PO 05/17/21 21:00 05/18/21 21:00 DC 05/18/21 20:13 Tamsulosin HCl (Flomax) 0.4 mg DAILY PO 05/18/21 09:00 05/24/21 08:37 Cyanocobalamin (Vitamin B-12) 1,000 mcg DAILY PO 05/18/21 09:00 05/24/21 08:37 Non-Formulary Medication (Ipratropium/ Albuterol Sulfate (Combivent Respimat Inhal)) 1 puff QID INH 05/17/21 17:00 05/17/21 15:02 DC Atorvastatin Calcium (Lipitor) 10 mg DAILY PO 05/18/21 09:00 05/24/21 08:39 Albuterol/ Ipratropium (Duoneb) 3 ml RTQID NEB 05/17/21 16:00 05/17/21 20:45 DC Albuterol/ Ipratropium (Combivent Respimat 20-100 Mcg) 1 puff RTQID INH 05/17/21 20:00 05/24/21 20:00 Gabapentin (Neurontin) 300 mg BID PO 05/17/21 21:00 05/24/21 20:30 Fluticasone Furoate (ARNUITY 100mcg ELLIPTA) 1 puff DAILY INH 05/18/21 14:00 05/21/21 08:27 DC 05/20/21 08:41 Phenytoin Sodium (Dilantin) 300 mg DAILY08 PO 05/19/21 08:00 05/24/21 08:38 Duloxetine HCl (Cymbalta) 30 mg DAILY PO 05/19/21 09:00 05/24/21 08:38 Mirtazapine (Remeron) 7.5 mg QHS PO 05/19/21 21:00 05/24/21 20:30 Trazodone HCl (Desyrel) 50 mg PRN QHS PRN PO sleep 05/19/21 12:30 Divalproex Sodium (Depakote Sprinkles) 125 mg 0900,1300,1700 PO 05/25/21 09:00 I have reviewed the current psychotropics carefully including drug interactions. Risk benefit ratio favors no change other than as noted in my dictated progress note. Diagnosis: Problems: (1) Major depressive disorder (2) Impulse control disorder, unspecified (3) Anxiety disorder, unspecified (4) Dementia, vascular, with depression (5) Dementia, vascular, with delusions (6) Major neurocognitive disorder NIK LOYA MD May 24, 2021 23:21
[2021-05-25 06:41] VITALS: BP 116/69
[2021-05-25] MEDS: IPRATROPIUM/ALBUTEROL 20/100mcg/INH INHALER. INH SCH ×4 (08:00→19:34)
[2021-05-25] MEDS: DIVALPROEX 125 MG CAP.SPRINK PO SCH ×2 (12:20→13:00)
[2021-05-25] MEDS: metFORMIN XR 500 MG TAB.ER.24H PO SCH (12:20)
[2021-05-25] MEDS: PHENYTOIN SODIUM EXTENDED 100 MG CAPSULE PO SCH (12:20)
[2021-05-25] MEDS: DULoxetine HCL 30 MG CAPSULE.DR PO SCH (12:21)
[2021-05-25] MEDS: ACETAMINOPHEN 325 MG TABLET PO PRN ×2 (12:21→19:34)
[2021-05-25] MEDS: ASPIRIN ENTERIC COATED 81 MG TABLET.DR. PO SCH (12:21)
[2021-05-25] MEDS: TAMSULOSIN 0.4 MG CAP.ER.24H. PO SCH (12:21)
[2021-05-25] MEDS: ATORVASTATIN CALCIUM 10 MG TABLET. PO SCH (12:21)
[2021-05-25] MEDS: CARVEDILOL 3.125 MG TABLET PO SCH ×2 (12:21→17:00)
[2021-05-25] MEDS: GABAPENTIN 300 MG CAPSULE. PO SCH ×2 (12:21→19:34)
[2021-05-25] MEDS: CYANOCOBALAMIN (VITAMIN B-12) 1,000 MCG TABLET. PO SCH (12:22)
[2021-05-25 15:50] VITALS: BP 123/53
[2021-05-25 18:10] LABS: HEMATOCRIT 33.9 % (39.0-53.0); HEMOGLOBIN 11.3 g/dL (13.0-17.5); RED BLOOD COUNT 3.33 x10^6/uL (4.30-5.70); RED CELL DISTRIBUTION WIDTH 13.5 % (11.5-14.5); WHITE BLOOD COUNT 6.1 x10^3/uL (4.0-11.0)
[2021-05-25 18:26] LABS: ALBUMIN 3.4 g/dL (3.4-5.0); CALCIUM 8.8 mg/dL (8.5-10.1); CREATININE 1.5 mg/dL (0.7-1.3); GFR 45.3; POTASSIUM 5.7 mmol/L (3.5-5.1); TOTAL BILIRUBIN 0.2 mg/dL (0.2-1.0); TOTAL PROTEIN 6.9 g/dL (6.4-8.2)
[2021-05-25] MEDS: MIRTAZAPINE 7.5 MG TABLET. PO SCH (19:34)
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
[2021-05-26 01:38] LABS: BACTERIA,URINE 0 /HPF (0-FEW); BILIRUBIN,URINE NEG (NEG); CLARITY,URINE CLEAR; COLOR,URINE YELLOW; GLUCOSE,URINE NEG (NEG); NITRITE,URINE NEG (NEG); RBC,URINE 0 /HPF (0-2); SQUAMOUS EPITHELIAL CELL,UR OCC /LPF; UROBILINOGEN,URINE 0.2 mg/dL (0.2 mg/dL); WBC,URINE RARE /HPF (0-4)
--- NOTE | 2021-05-26 05:24 | NUR ---
During rounds this morning, a change in pt status was noted. Pt weak, confused and stating his head hurt. VS WNL. Dr. Phil devries. Received orders for stat head CT and dilantin level. Will continue to monitor.
[2021-05-26 06:00] VITALS: BP 163/73
--- NOTE | 2021-05-26 06:09 | RAD ---
CT HEAD/BRAIN WO Date: 05/26/2021 5:35 AM Clinical Indication: Reason: change in pt status / Spl. Instructions: / History: Comparison: None. Technique: 5 mm axial tomographic images were obtained of the head without contrast. These were view ed on brain and bone windows. One or more of the following dose reduction techniques were utilized: A utomated exposure control (AEC), Adjustment of mA and/or kV according to patient size, Use of iterati ve reconstruction technique such as ASiR, CT scan done according to ALARA and image gently/image mckeon ly Findings: Postsurgical changes of left frontoparietal craniotomy. Moderate size area of left temporal lobe ence phalomalacia. Mild generalized cerebral and cerebellar volume loss. Mild nonspecific periventricular hypoattenuatio n, most commonly seen with chronic small vessel ischemic disease. Calcified atherosclerosis of the bi lateral cavernous and paraclinoid internal carotid arteries and intracranial vertebral arteries. No intra- or extra-axial mass or fluid collection. No acute hemorrhage. The ventricles are normal in size, shape, and morphology. The warren-white matter junction is normal. The subarachnoid cisterns are patent. Incompletely characterized changes of functional endoscopic sinus surgery. Paranasal sinus mucosal th ickening. The visualized portions of the orbits and globes are normal. The mastoid air cells are víctor ar. Impression: No acute intracranial process. Left frontoparietal craniotomy and left temporal lobe encephalomalacia. Mild cerebral volume loss. Mild chronic small vessel ischemic disease. Electronically signed by: Rahul Tapia MD (05/26/2021 6:07 AM) [facility]
[2021-05-26 06:46] LABS: PHENY 5.5 mcg/mL (10.0-20.0)
[2021-05-26] MEDS: metFORMIN XR 500 MG TAB.ER.24H PO SCH (08:46)
[2021-05-26] MEDS: CYANOCOBALAMIN (VITAMIN B-12) 1,000 MCG TABLET. PO SCH (08:46)
[2021-05-26] MEDS: CARVEDILOL 3.125 MG TABLET PO SCH ×2 (08:46→17:15)
[2021-05-26] MEDS: TAMSULOSIN 0.4 MG CAP.ER.24H. PO SCH (08:46)
[2021-05-26] MEDS: GABAPENTIN 300 MG CAPSULE. PO SCH ×2 (08:46→19:48)
[2021-05-26] MEDS: PHENYTOIN SODIUM EXTENDED 100 MG CAPSULE PO SCH (08:46)
[2021-05-26] MEDS: ASPIRIN ENTERIC COATED 81 MG TABLET.DR. PO SCH (08:46)
[2021-05-26] MEDS: ATORVASTATIN CALCIUM 10 MG TABLET. PO SCH (08:46)
[2021-05-26] MEDS: IPRATROPIUM/ALBUTEROL 20/100mcg/INH INHALER. INH SCH ×4 (08:47→19:47)
[2021-05-26] MEDS: DULoxetine HCL 30 MG CAPSULE.DR PO SCH (08:51)
[2021-05-26] MEDS ORDERED: DULoxetine HCL 30 MG CAPSULE.DR PO SCH (09:00)
[2021-05-26] MEDS ORDERED: DULoxetine HCL 20 MG CAPSULE.DR PO SCH (09:00)
--- NOTE | 2021-05-26 09:23 | PDOC ---
Exam Note: Loe Note: This note is a late entry for 05/24/2021 covers elements not covered in my initial note. Subjective: The patient was seen on telehealth rounds in the evening of 05/24/2021 with the nursing staff taking the telehealth camera to each patient, which was on a secure portal, discussed and reviewed the chart with Maryjane KOWALSKI. The patient slept 6-3/4 hours previous night. He has been making some slight sexually inappropriate comments to the female nursing aids and then calling another one at [facility]. I did address this with the patient and he seemed to minimize, rationalize and denied it. Nevertheless he remains somewhat more impulsive per above. Review of Systems: Ambulation impaired with walker. No CV, , pulmonary, eye, ENT system symptoms on review. Mental Status Exam: The patient is reasonably oriented to himself and situation. Speech coherent, less pressured. Abstraction fair. Computation impaired. Short-term memory is impaired. Language function intact. Attention span short. Mood and affect somewhat labile. Laboratory Data: Reviewed. 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 Anxiety disorder unspecified. Impulse control disorder unspecified. Plan: Continue rest psychotropics. Start Depakote Sprinkle 125 mg 9 a.m., 1 p.m., 5 p.m. Check CBC, CMP, valproic acid level in 3 days. Adjust as clinically indicated to reach therapeutic level. Assessment: Vital Signs/I&O: Vital Signs Date Time Temp Pulse Resp B/P (MAP) Pulse Ox O2 Delivery O2 Flow Rate FiO2 05/26/21 08:46 75 163/73 05/26/21 06:00 97.6 20 95 05/25/21 15:50 Room Air I & O 05/25/21 05/25/21 05/26/21 15:00 23:00 07:00 Intake Total 240 ml 720 ml Balance 240 ml 720 ml Labs: Laboratory Tests Test 05/25/21 17:02 05/26/21 01:00 05/26/21 05:38 05/26/21 07:18 White Blood Count 6.1 x10^3/uL (4.0-11.0) Red Blood Count 3.33 x10^6/uL (4.30-5.70) L Hemoglobin 11.3 g/dL (13.0-17.5) L Hematocrit 33.9 % (39.0-53.0) L Mean Corpuscular Volume 102 fL (79-100) H Mean Corpuscular Hemoglobin 34 pg (25-35) Mean Corpuscular Hemoglobin Concent 33 g/dL (31-37) Red Cell Distribution Width 13.5 % (11.5-14.5) Platelet Count 111 x10^3/uL (140-400) L Sodium Level 148 mmol/L (136-145) H Potassium Level 5.7 mmol/L (3.5-5.1) H Chloride Level 112 mmol/L (98-107) H Carbon Dioxide Level 27 mmol/L (21-32) Anion Gap 9 (6-14) Blood Urea Nitrogen 47 mg/dL (8-26) H Creatinine 1.5 mg/dL (0.7-1.3) H Estimated GFR (Cockcroft-Gault) 45.3 BUN/Creatinine Ratio 31 (6-20) H Glucose Level 123 mg/dL (70-99) H Calcium Level 8.8 mg/dL (8.5-10.1) Total Bilirubin 0.2 mg/dL (0.2-1.0) Aspartate Amino Transferase (AST) 11 U/L (15-37) L Alanine Aminotransferase (ALT) 17 U/L (16-63) Alkaline Phosphatase 119 U/L (46-116) H Total Protein 6.9 g/dL (6.4-8.2) Albumin 3.4 g/dL (3.4-5.0) Albumin/Globulin Ratio 1.0 (1.0-1.7) Urine Collection Type Unknown Urine Color Yellow Urine Clarity Clear Urine pH 6.0 Urine Specific [place] 1.020 Urine Protein Neg (NEG-TRACE) Urine Glucose (UA) Neg mg/dL (NEG) Urine Ketones (Stick) Neg mg/dL (NEG) Urine Blood Neg (NEG) Urine Nitrite Neg (NEG) Urine Bilirubin Neg (NEG) Urine Urobilinogen Dipstick 0.2 mg/dL (0.2 mg/dL) Urine Leukocyte Esterase Neg (NEG) Urine RBC 0 /HPF (0-2) Urine WBC Rare /HPF (0-4) Urine Squamous Epithelial Cells Occ /LPF Urine Bacteria 0 /HPF (0-FEW) Phenytoin (Dilantin) Level 5.5 mcg/mL (10.0-20.0) L Phenytoin Last Dose Date 05/25/2021 Phenytoin Last Dose Time 0800 Glucose (Fingerstick) 98 mg/dL (70-99) Current Medications: Meds: Laboratory Tests Test 05/25/21 17:02 05/26/21 01:00 05/26/21 05:38 05/26/21 07:18 White Blood Count 6.1 x10^3/uL Red Blood Count 3.33 x10^6/uL Hemoglobin 11.3 g/dL Hematocrit 33.9 % Mean Corpuscular Volume 102 fL Mean Corpuscular Hemoglobin 34 pg Mean Corpuscular Hemoglobin Concent 33 g/dL Red Cell Distribution Width 13.5 % Platelet Count 111 x10^3/uL Sodium Level 148 mmol/L Potassium Level 5.7 mmol/L Chloride Level 112 mmol/L Carbon Dioxide Level 27 mmol/L Anion Gap 9 Blood Urea Nitrogen 47 mg/dL Creatinine 1.5 mg/dL Estimated GFR (Cockcroft-Gault) 45.3 BUN/Creatinine Ratio 31 Glucose Level 123 mg/dL Calcium Level 8.8 mg/dL Total Bilirubin 0.2 mg/dL Aspartate Amino Transf (AST/SGOT) 11 U/L Alanine Aminotransferase (ALT/SGPT) 17 U/L Alkaline Phosphatase 119 U/L Total Protein 6.9 g/dL Albumin 3.4 g/dL Albumin/Globulin Ratio 1.0 Urine Collection Type Unknown Urine Color Yellow Urine Clarity Clear Urine pH 6.0 Urine Specific [place] 1.020 Urine Protein Neg Urine Glucose (UA) Neg mg/dL Urine Ketones (Stick) Neg mg/dL Urine Blood Neg Urine Nitrite Neg Urine Bilirubin Neg Urine Urobilinogen Dipstick 0.2 mg/dL Urine Leukocyte Esterase Neg Urine RBC 0 /HPF Urine WBC Rare /HPF Urine Squamous Epithelial Cells Occ /LPF Urine Bacteria 0 /HPF Phenytoin (Dilantin) Level 5.5 mcg/mL Phenytoin Last Dose Date 05/25/2021 Phenytoin Last Dose Time 0800 Glucose (Fingerstick) 98 mg/dL Current Medications Medications (Trade) Dose Ordered Sig/Aparna Route PRN Reason Start Time Stop Time Status Last Admin Dose Admin Acetaminophen (Tylenol) 650 mg PRN Q6HRS PRN PO MILD PAIN / TEMP > 100.3'F 05/17/21 14:45 05/25/21 19:34 Multi-Ingredient Ointment (Analgesic [place]) 1 inna PRN QID PRN TP MUSCLE PAIN 05/17/21 14:45 Al Hydroxide/Mg Hydroxide (Mylanta Plus Xs) 15 ml PRN AFTMEALHC PRN PO DYSPEPSIA 05/17/21 14:45 Magnesium Hydroxide (Milk Of Magnesia) 2,400 mg PRN QHS PRN PO CONSTIPATION 05/17/21 14:45 Aspirin (Aspirin Enteric Coated) 81 mg DAILY PO 05/18/21 09:00 05/26/21 08:46 Budesonide (Pulmicort) 0.5 mg RTBID IH 05/17/21 20:00 05/18/21 13:26 DC Carvedilol (Coreg) 3.125 mg BIDWMEALS PO 05/17/21 17:00 05/26/21 08:46 Lisinopril (Prinivil) 5 mg DAILY PO 05/18/21 09:00 05/25/21 09:35 DC 05/24/21 08:39 Metformin HCl (Glucophage Xr) 500 mg DAILYWBKFT PO 05/18/21 08:00 05/26/21 08:46 Phenytoin Sodium (Dilantin) 100 mg BID PO 05/17/21 21:00 05/18/21 21:00 DC 05/18/21 20:13 Tamsulosin HCl (Flomax) 0.4 mg DAILY PO 05/18/21 09:00 05/26/21 08:46 Cyanocobalamin (Vitamin B-12) 1,000 mcg DAILY PO 05/18/21 09:00 05/26/21 08:46 Non-Formulary Medication (Ipratropium/ Albuterol Sulfate (Combivent Respimat Inhal)) 1 puff QID INH 05/17/21 17:00 05/17/21 15:02 DC Atorvastatin Calcium (Lipitor) 10 mg DAILY PO 05/18/21 09:00 05/26/21 08:46 Albuterol/ Ipratropium (Duoneb) 3 ml RTQID NEB 05/17/21 16:00 05/17/21 20:45 DC Albuterol/ Ipratropium (Combivent Respimat 20-100 Mcg) 1 puff RTQID INH 05/17/21 20:00 05/26/21 08:47 Gabapentin (Neurontin) 300 mg BID PO 05/17/21 21:00 05/26/21 08:46 Fluticasone Furoate (ARNUITY 100mcg ELLIPTA) 1 puff DAILY INH 05/18/21 14:00 05/21/21 08:27 DC 05/20/21 08:41 Phenytoin Sodium (Dilantin) 300 mg DAILY08 PO 05/19/21 08:00 05/26/21 08:46 Duloxetine HCl (Cymbalta) 30 mg DAILY PO 05/19/21 09:00 05/25/21 15:56 DC 05/25/21 12:21 Mirtazapine (Remeron) 7.5 mg QHS PO 05/19/21 21:00 05/25/21 19:34 Trazodone HCl (Desyrel) 50 mg PRN QHS PRN PO sleep 05/19/21 12:30 Divalproex Sodium (Depakote Sprinkles) 125 mg 0900,1300,1700 PO 05/25/21 09:00 05/25/21 16:36 DC 05/25/21 12:20 Duloxetine HCl (Cymbalta) 30 mg DAILY PO 05/26/21 09:00 05/25/21 16:36 DC Duloxetine HCl (Cymbalta) 20 mg DAILY PO 05/26/21 09:00 05/25/21 16:36 DC Duloxetine HCl (Cymbalta) 30 mg DAILY PO 05/26/21 09:00 05/26/21 08:51 Current Medications Medications (Trade) Dose Ordered Sig/Aparna Route PRN Reason Start Time Stop Time Status Last Admin Dose Admin Duloxetine HCl (Cymbalta) 30 mg DAILY PO 05/26/21 09:00 05/26/21 08:51 I have reviewed the current psychotropics carefully including drug interactions. Risk benefit ratio favors no change other than as noted in my dictated progress note. Diagnosis: Problems: (1) Major depressive disorder (2) Impulse control disorder, unspecified (3) Anxiety disorder, unspecified (4) Dementia, vascular, with depression (5) Dementia, vascular, with delusions (6) Major neurocognitive disorder NIK LOYA MD May 26, 2021 09:23
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
--- NOTE | 2021-05-26 13:25 | NUR ---
Nursing Note Patient continues to have weakness for activities of daily living. Patient otherwise answers questions appropriately, medication compliant, up in day room and then laid down for nap after lunch. No other acute concerns, will continue to monitor patient.
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
[2021-05-26 15:43] VITALS: BP 134/74
[2021-05-26] MEDS: MIRTAZAPINE 7.5 MG TABLET. PO SCH (19:48)
--- NOTE | 2021-05-26 22:10 | PDOC ---
Exam Note: Leo Note: Please also refer to the separate dictated note~for this date of service dictated separately.~Patient seen individually. Discussed the patient with Nursing staff reviewed the chart.~Reviewed interim history and current functioning. Reviewed vital signs,~Labs/ Radiology~and current medications noted below. Continue current treatment with the changes noted in the dictated addendum note Assessment: Vital Signs/I&O: Vital Signs Date Time Temp Pulse Resp B/P (MAP) Pulse Ox O2 Delivery O2 Flow Rate FiO2 05/26/21 17:15 68 134/74 05/26/21 15:43 97.1 16 95 05/25/21 15:50 Room Air I & O 05/25/21 05/25/21 05/26/21 15:00 23:00 07:00 Intake Total 240 ml 720 ml Balance 240 ml 720 ml Labs: Laboratory Tests Test 05/26/21 01:00 05/26/21 05:38 05/26/21 07:18 Urine Collection Type Unknown Urine Color Yellow Urine Clarity Clear Urine pH 6.0 Urine Specific [place] 1.020 Urine Protein Neg (NEG-TRACE) Urine Glucose (UA) Neg mg/dL (NEG) Urine Ketones (Stick) Neg mg/dL (NEG) Urine Blood Neg (NEG) Urine Nitrite Neg (NEG) Urine Bilirubin Neg (NEG) Urine Urobilinogen Dipstick 0.2 mg/dL (0.2 mg/dL) Urine Leukocyte Esterase Neg (NEG) Urine RBC 0 /HPF (0-2) Urine WBC Rare /HPF (0-4) Urine Squamous Epithelial Cells Occ /LPF Urine Bacteria 0 /HPF (0-FEW) Phenytoin (Dilantin) Level 5.5 mcg/mL (10.0-20.0) L Phenytoin Last Dose Date 05/25/2021 Phenytoin Last Dose Time 0800 Glucose (Fingerstick) 98 mg/dL (70-99) Current Medications: Meds: Laboratory Tests Test 05/26/21 01:00 05/26/21 05:38 05/26/21 07:18 Urine Collection Type Unknown Urine Color Yellow Urine Clarity Clear Urine pH 6.0 Urine Specific [place] 1.020 Urine Protein Neg Urine Glucose (UA) Neg mg/dL Urine Ketones (Stick) Neg mg/dL Urine Blood Neg Urine Nitrite Neg Urine Bilirubin Neg Urine Urobilinogen Dipstick 0.2 mg/dL Urine Leukocyte Esterase Neg Urine RBC 0 /HPF Urine WBC Rare /HPF Urine Squamous Epithelial Cells Occ /LPF Urine Bacteria 0 /HPF Phenytoin (Dilantin) Level 5.5 mcg/mL Phenytoin Last Dose Date 05/25/2021 Phenytoin Last Dose Time 0800 Glucose (Fingerstick) 98 mg/dL Current Medications Medications (Trade) Dose Ordered Sig/Aparna Route PRN Reason Start Time Stop Time Status Last Admin Dose Admin Acetaminophen (Tylenol) 650 mg PRN Q6HRS PRN PO MILD PAIN / TEMP > 100.3'F 05/17/21 14:45 05/25/21 19:34 Multi-Ingredient Ointment (Analgesic [place]) 1 inna PRN QID PRN TP MUSCLE PAIN 05/17/21 14:45 Al Hydroxide/Mg Hydroxide (Mylanta Plus Xs) 15 ml PRN AFTMEALHC PRN PO DYSPEPSIA 05/17/21 14:45 Magnesium Hydroxide (Milk Of Magnesia) 2,400 mg PRN QHS PRN PO CONSTIPATION 05/17/21 14:45 Aspirin (Aspirin Enteric Coated) 81 mg DAILY PO 05/18/21 09:00 05/26/21 08:46 Budesonide (Pulmicort) 0.5 mg RTBID IH 05/17/21 20:00 05/18/21 13:26 DC Carvedilol (Coreg) 3.125 mg BIDWMEALS PO 05/17/21 17:00 05/26/21 17:15 Lisinopril (Prinivil) 5 mg DAILY PO 05/18/21 09:00 05/25/21 09:35 DC 05/24/21 08:39 Metformin HCl (Glucophage Xr) 500 mg DAILYWBKFT PO 05/18/21 08:00 05/26/21 08:46 Phenytoin Sodium (Dilantin) 100 mg BID PO 05/17/21 21:00 05/18/21 21:00 DC 05/18/21 20:13 Tamsulosin HCl (Flomax) 0.4 mg DAILY PO 05/18/21 09:00 05/26/21 08:46 Cyanocobalamin (Vitamin B-12) 1,000 mcg DAILY PO 05/18/21 09:00 05/26/21 08:46 Non-Formulary Medication (Ipratropium/ Albuterol Sulfate (Combivent Respimat Inhal)) 1 puff QID INH 05/17/21 17:00 05/17/21 15:02 DC Atorvastatin Calcium (Lipitor) 10 mg DAILY PO 05/18/21 09:00 05/26/21 08:46 Albuterol/ Ipratropium (Duoneb) 3 ml RTQID NEB 05/17/21 16:00 05/17/21 20:45 DC Albuterol/ Ipratropium (Combivent Respimat 20-100 Mcg) 1 puff RTQID INH 05/17/21 20:00 05/26/21 19:47 Gabapentin (Neurontin) 300 mg BID PO 05/17/21 21:00 05/26/21 19:48 Fluticasone Furoate (ARNUITY 100mcg ELLIPTA) 1 puff DAILY INH 05/18/21 14:00 05/21/21 08:27 DC 05/20/21 08:41 Phenytoin Sodium (Dilantin) 300 mg DAILY08 PO 05/19/21 08:00 05/26/21 08:46 Duloxetine HCl (Cymbalta) 30 mg DAILY PO 05/19/21 09:00 05/25/21 15:56 DC 05/25/21 12:21 Mirtazapine (Remeron) 7.5 mg QHS PO 05/19/21 21:00 05/26/21 19:48 Trazodone HCl (Desyrel) 50 mg PRN QHS PRN PO sleep 05/19/21 12:30 Divalproex Sodium (Depakote Sprinkles) 125 mg 0900,1300,1700 PO 05/25/21 09:00 05/25/21 16:36 DC 05/25/21 12:20 Duloxetine HCl (Cymbalta) 30 mg DAILY PO 05/26/21 09:00 05/25/21 16:36 DC Duloxetine HCl (Cymbalta) 20 mg DAILY PO 05/26/21 09:00 05/25/21 16:36 DC Duloxetine HCl (Cymbalta) 30 mg DAILY PO 05/26/21 09:00 05/26/21 08:51 Current Medications Medications (Trade) Dose Ordered Sig/Aparna Route PRN Reason Start Time Stop Time Status Last Admin Dose Admin Duloxetine HCl (Cymbalta) 30 mg DAILY PO 05/26/21 09:00 05/26/21 08:51 I have reviewed the current psychotropics carefully including drug interactions. Risk benefit ratio favors no change other than as noted in my dictated progress note. Diagnosis: Problems: (1) Major depressive disorder (2) Impulse control disorder, unspecified (3) Anxiety disorder, unspecified (4) Dementia, vascular, with depression (5) Dementia, vascular, with delusions (6) Major neurocognitive disorder NIK LOYA MD May 26, 2021 22:10
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
[2021-05-27 01:26] VITALS: BP 183/87
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
--- NOTE | 2021-05-27 03:59 | CONS ---
DATE OF CONSULTATION: 05/18/2021 NEUROLOGY CONSULTATION REFERRING PHYSICIAN: Dr. Niño/Dr. Parra. REASON FOR CONSULTATION: History of seizure disorder and mental status changes. HISTORY OF PRESENT ILLNESS: This is a 80-year-old right-handed male who was [facility] on account of increasing symptoms of behavior disturbances, depression, and paranoia. The patient was reported having hallucinations. He is a resident at [facility]. He has been threatening to leave the nursing home community. He was given a 30-day notice of eviction by [facility] as his behavior has been unstable. The patient has filled the outpatient psychiatric care. Neurologic consult was requested because the patient has had history of a seizure disorder for the last 3 years. The etiology is uncertain, probably due to a fall or having hemorrhagic surgery required at left temporoparietal regions and evacuation of the blood clots 3 years ago. The patient denies any recurrent seizure. He has been on phenytoin 100 mg twice a day with subtherapeutic level at the day of admission; however, the patient has not had any recurrent seizures since. Currently, he denies headaches, visual disturbances, nausea, vomiting, chest pain, shortness of breath or palpitation, dysarthria or dysphagia. PAST MEDICAL HISTORY: Significant for hypertension, obesity, seizure disorder as described above, probably due to subdural hematoma and head injury, COPD, benign prostate hypertrophy, chronic kidney disease and frequent falls and anemia. PAST SURGICAL HISTORY: Positive for a left temporal brain surgery or craniotomy, probably to evacuate the blood clots. The patient did not recall any other surgeries done for him. FAMILY HISTORY: Noncontributory. SOCIAL HISTORY: The patient is a resident at an independent facility. He denies smoking, alcohol or illicit drug use. CURRENT MEDICATIONS: Include Cymbalta, mirtazapine, trazodone, phenytoin, Lipitor, vitamin B12, tamsulosin, aspirin, metformin, gabapentin, albuterol inhaler, carvedilol, and Tylenol p.r.n. ALLERGIES: No known drug allergies. REVIEW OF SYSTEMS: A 10-point review of system was performed as mentioned above in history of present illness. PHYSICAL EXAMINATION: GENERAL: Obese male in no acute distress. He weighs 100.2 kilos. VITAL SIGNS: Blood pressure 115/54, respiratory rate 18, pulse is 68 and regular, temperature 97.1, oxygen saturation 98% on room air. HEENT: Normocephalic, atraumatic, otherwise unremarkable. NECK: Supple, negative for carotid bruit, lymphadenopathy or thyromegaly. LUNGS: Clear to A and P. CARDIOVASCULAR: Regular rate and rhythm, normal S1, S2. There is no S3, S4 or murmur. ABDOMEN: Soft. Bowel sounds positive. EXTREMITIES: Negative for cyanosis, clubbing or edema. NEUROLOGIC: Mental status: The patient is alert and oriented x2. The speech is fluent. There is no language dysfunction. Memory, judgment and abstracting thinking are fair. The patient denies hallucination or delusion. Cranial nerves: Visual zepeda are full. The pupils are reactive to light and accommodation. The extraocular movements are intact. There is no nystagmus. There is no facial motor or sensory deficits. Hearing is intact bilaterally. The palate is elevated symmetrically. Sternocleidomastoid muscles are powerful bilaterally. The patient shrugs his shoulders symmetrically, protrudes his tongue in the midline without fasciculation or atrophy. Motor: No focal muscle bulk wasting. The tone is normal. The strength is 4/5 throughout. Sensory examination revealed normal pinprick, light touch, vibratory and position senses. Deep tendon reflexes were symmetric and hypoactive with absent Achilles responses. Gait: The stance is steady. The patient ambulates with a walker. LABORATORY DATA: CBC revealed white blood cells of 6.1 thousand, hemoglobin 10, hematocrit 29.4, platelet count low at 98,000. Chemistry revealed sodium of 142, potassium 4.8, chloride 108, CO2 of 26, BUN 34, creatinine 1.5. Iron is normal at 98. Liver enzymes are normal. Thyroid profile is normal as well as urinalysis; phenytoin level is low at 2.2. IMPRESSION: 1. History of a seizure disorder, probably due to previous stroke or left subdural hematoma secondary to head injuries or fall and possible hemorrhagic stroke. 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 The patient has not had any recurrent seizures since admission. 2. Multiple medical problems include hypertension, hyperlipidemia, obesity, chronic kidney disease, vitamin B12 deficiency, vitamin D deficiency, COPD. 3. Multiple psychiatric problems include depression, hallucinations and possible early dementia with intermittent hallucination/delusion, and anxiety disorder. RECOMMENDATION: 1. We will increase the dose of Dilantin to 300 mg daily and continue with current home medications. 2. Continue with other medical and psychiatric care. JAKY DR: Stefan TID: [id number]
--- NOTE | 2021-05-27 04:41 | PN ---
DATE: 05/26/2021 SUBJECTIVE: I was called to check on the patient today because he has been lethargic in the last 2 days. He has not had any falls or head injury during this hospitalization. The patient denies any recurrent seizure and the nursing staff did not report any seizure-like activities or falls. OBJECTIVE: GENERAL: Obese male, in no acute distress. VITAL SIGNS: Blood pressure 134/74, respiratory rate 16, pulse is 68 and regular, temperature 97.1, oxygen saturation 95% on room air. HEENT: Normocephalic, atraumatic, otherwise unremarkable. NECK: Supple. Negative for carotid bruit, lymphadenopathy, or thyromegaly. LUNGS: With diminished breath sounds, but no rales or wheezing. CARDIOVASCULAR: Regular rate and rhythm, normal S1, S2. There is no S3, S4 or murmur. ABDOMEN: Soft. Bowel sounds positive. EXTREMITIES: Negative for cyanosis, clubbing, or pedal edema. NEUROLOGIC: Mental status: The patient is alert and oriented x2. Speech is fluent. There is no language dysfunction. Memory, judgment, and abstracting thinkings are fair. The patient denies hallucination or delusion. Cranial nerves are intact. No focal motor or sensory deficit. The strength was 4/5 throughout. Sensory examination revealed diminished pinprick and light touch senses in distal lower extremities. Deep tendon reflexes were symmetric and hypoactive with absent Achilles responses. Gait: The stance is unsteady. LABORATORY DATA: From 05/25/2021, revealed white blood cells of 6.1, hemoglobin 11.3, hematocrit 33.2, platelet count 111,000. Chemistry revealed a sodium of 148, potassium 5.7, chloride 112, CO2 of 27, BUN 47, creatinine 1.5, and glucose 123. A1c is 5.7, calcium is 8.8. Magnesium is normal. Liver enzymes are not elevated. Lipid profile is normal. Vitamin B12 is more than 2000 and vitamin D is low at 13.4. Thyroid profile is normal. Today, phenytoin level was subtherapeutic at 5.5. Urinalysis is negative for urinary tract infections. A head CT scan today revealed no acute intracranial process, but it showed a left frontoparietal craniotomy and left temporal lobe encephalomalacia. Mild chronic small vessel ischemic changes were also noted. IMPRESSION: 1. History of seizure and left temporoparietal craniotomy probably to a clot removal. Subsequently, the patient developed seizure disorder, probably of a generalized type. However, the patient has not had recurrent seizures since admission despite having a subtherapeutic off Dilantin level. 2. Multiple medical problems include diabetes mellitus, hypertension, chronic obstructive pulmonary disease, and possible early dementia. 3. Multiple psychiatric problems to include depression, anxiety disorders with psychotic features. RECOMMENDATIONS: We would continue with current medical and psychiatric care and continue with current home medications including phenytoin [address]: Stefan TID: [id number]
[2021-05-27 05:52] VITALS: BP 123/73
[2021-05-27] MEDS: IPRATROPIUM/ALBUTEROL 20/100mcg/INH INHALER. INH SCH ×4 (08:00→21:07)
[2021-05-27] MEDS: CARVEDILOL 3.125 MG TABLET PO SCH ×2 (08:00→17:00)
[2021-05-27] MEDS: CYANOCOBALAMIN (VITAMIN B-12) 1,000 MCG TABLET. PO SCH (08:12)
[2021-05-27] MEDS: TAMSULOSIN 0.4 MG CAP.ER.24H. PO SCH (08:12)
[2021-05-27] MEDS: GABAPENTIN 300 MG CAPSULE. PO SCH ×2 (08:12→21:07)
[2021-05-27] MEDS: PHENYTOIN SODIUM EXTENDED 100 MG CAPSULE PO SCH (08:12)
[2021-05-27] MEDS: ASPIRIN ENTERIC COATED 81 MG TABLET.DR. PO SCH (08:12)
[2021-05-27] MEDS: DULoxetine HCL 30 MG CAPSULE.DR PO SCH (08:12)
[2021-05-27] MEDS: ATORVASTATIN CALCIUM 10 MG TABLET. PO SCH (08:12)
[2021-05-27] MEDS: metFORMIN XR 500 MG TAB.ER.24H PO SCH (08:12)
--- NOTE | 2021-05-27 09:44 | PDOC ---
Exam Note: Leo Note: This note is a late entry for 05/25/2021 covers elements not covered in my initial note. Subjective: The patient was seen on telehealth rounds in the afternoon of 05/25/2021 with the nursing staff taking the telehealth camera to each patient, which was on a secure portal, discussed and reviewed the chart with Sha KOWALSKI. The patient slept 6-3/4 hours previous night. He has been pleasant, somewhat sleepy and tired all day, isolative. He is slightly dehydrated. Fluids are being pushed. Given his level of sedation and appearing somewhat confused, we will go ahead and stop the Depakote. Check CBC, CMP, and UA to rule out UTI. Defer to Dr. Newman, neurology for management of seizures. Depakote in fact was being used for mood stabilization. I had considered increasing Cymbalta to 50 mg a day but till his sedation and general change in cognitive functioning stabilizes, we will not increase it. Review of Systems: Ambulation impaired with walker. No CV, , pulmonary, eye, ENT system symptoms on review. Mental Status Exam: The patient is oriented to himself. Insight and judgment, recent and remote memory, attention and concentration, fund of knowledge is poor consistent with his diagnoses. Laboratory Data: Reviewed. 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 Anxiety disorder unspecified. Impulse control disorder unspecified. Plan: We will defer medical management to Dr. Villarreal. Stop the Depakote as above. Rest unchanged for now. Assessment: Vital Signs/I&O: Vital Signs Date Time Temp Pulse Resp B/P (MAP) Pulse Ox O2 Delivery O2 Flow Rate FiO2 05/27/21 08:00 85 123/73 05/27/21 05:52 97.7 16 93 05/25/21 15:50 Room Air I & O 05/26/21 05/26/21 05/27/21 15:00 23:00 07:00 Intake Total 840 ml 600 ml Balance 840 ml 600 ml Labs: Laboratory Tests Test 05/27/21 07:36 Glucose (Fingerstick) 103 mg/dL (70-99) H Current Medications: Meds: Laboratory Tests Test 05/27/21 07:36 Glucose (Fingerstick) 103 mg/dL Current Medications Medications (Trade) Dose Ordered Sig/Aparna Route PRN Reason Start Time Stop Time Status Last Admin Dose Admin Acetaminophen (Tylenol) 650 mg PRN Q6HRS PRN PO MILD PAIN / TEMP > 100.3'F 05/17/21 14:45 05/25/21 19:34 Multi-Ingredient Ointment (Analgesic [place]) 1 inna PRN QID PRN TP MUSCLE PAIN 05/17/21 14:45 Al Hydroxide/Mg Hydroxide (Mylanta Plus Xs) 15 ml PRN AFTMEALHC PRN PO DYSPEPSIA 05/17/21 14:45 Magnesium Hydroxide (Milk Of Magnesia) 2,400 mg PRN QHS PRN PO CONSTIPATION 05/17/21 14:45 Aspirin (Aspirin Enteric Coated) 81 mg DAILY PO 05/18/21 09:00 05/27/21 08:12 Budesonide (Pulmicort) 0.5 mg RTBID IH 05/17/21 20:00 05/18/21 13:26 DC Carvedilol (Coreg) 3.125 mg BIDWMEALS PO 05/17/21 17:00 05/27/21 08:00 Lisinopril (Prinivil) 5 mg DAILY PO 05/18/21 09:00 05/25/21 09:35 DC 05/24/21 08:39 Metformin HCl (Glucophage Xr) 500 mg DAILYWBKFT PO 05/18/21 08:00 05/27/21 08:12 Phenytoin Sodium (Dilantin) 100 mg BID PO 05/17/21 21:00 05/18/21 21:00 DC 05/18/21 20:13 Tamsulosin HCl (Flomax) 0.4 mg DAILY PO 05/18/21 09:00 05/27/21 08:12 Cyanocobalamin (Vitamin B-12) 1,000 mcg DAILY PO 05/18/21 09:00 05/27/21 08:12 Non-Formulary Medication (Ipratropium/ Albuterol Sulfate (Combivent Respimat Inhal)) 1 puff QID INH 05/17/21 17:00 05/17/21 15:02 DC Atorvastatin Calcium (Lipitor) 10 mg DAILY PO 05/18/21 09:00 05/27/21 08:12 Albuterol/ Ipratropium (Duoneb) 3 ml RTQID NEB 05/17/21 16:00 05/17/21 20:45 DC Albuterol/ Ipratropium (Combivent Respimat 20-100 Mcg) 1 puff RTQID INH 05/17/21 20:00 05/26/21 19:47 Gabapentin (Neurontin) 300 mg BID PO 05/17/21 21:00 05/27/21 08:12 Fluticasone Furoate (ARNUITY 100mcg ELLIPTA) 1 puff DAILY INH 05/18/21 14:00 05/21/21 08:27 DC 05/20/21 08:41 Phenytoin Sodium (Dilantin) 300 mg DAILY08 PO 05/19/21 08:00 05/27/21 08:12 Duloxetine HCl (Cymbalta) 30 mg DAILY PO 05/19/21 09:00 05/25/21 15:56 DC 05/25/21 12:21 Mirtazapine (Remeron) 7.5 mg QHS PO 05/19/21 21:00 05/26/21 19:48 Trazodone HCl (Desyrel) 50 mg PRN QHS PRN PO sleep 05/19/21 12:30 Divalproex Sodium (Depakote Sprinkles) 125 mg 0900,1300,1700 PO 05/25/21 09:00 05/25/21 16:36 DC 05/25/21 12:20 Duloxetine HCl (Cymbalta) 30 mg DAILY PO 05/26/21 09:00 05/25/21 16:36 DC Duloxetine HCl (Cymbalta) 20 mg DAILY PO 05/26/21 09:00 05/25/21 16:36 DC Duloxetine HCl (Cymbalta) 30 mg DAILY PO 05/26/21 09:00 05/27/21 08:12 I have reviewed the current psychotropics carefully including drug interactions. Risk benefit ratio favors no change other than as noted in my dictated progress note. Diagnosis: Problems: (1) Major depressive disorder (2) Impulse control disorder, unspecified (3) Anxiety disorder, unspecified (4) Dementia, vascular, with depression (5) Dementia, vascular, with delusions (6) Major neurocognitive disorder NIK LOYA MD May 27, 2021 09:44
--- NOTE | 2021-05-27 10:05 | PN ---
DATE: 05/20/2021 SUBJECTIVE: This is a 80-year-old right-handed male who was [facility] 05[facility]2021 on account of increasing symptoms of behavior disturbances, paranoia and hallucinations. He has had a history of seizure, probably secondary to brain injury ____ clot evacuation from the left hemisphere. Currently, the patient has not had any recurrent seizures since admission. He denies any new neurological complaints. OBJECTIVE: GENERAL: Obese male, not in acute distress. VITAL SIGNS: Blood pressure 160/79, respiratory rate 20, pulse is 83, temperature 97.2, oxygen saturation is 97% on room air. HEENT: Normocephalic, atraumatic, otherwise unremarkable. NECK: Supple, negative for carotid bruit, lymphadenopathy or thyromegaly. LUNGS: Clear to A and P. CARDIOVASCULAR: Regular rate and rhythm, normal S1, S2. ABDOMEN: Soft. EXTREMITIES: Negative for cyanosis, clubbing or edema. NEUROLOGIC: Mental status is intact, but he has a very short-term memory loss, otherwise unremarkable. Cranial nerves are intact. Motor examination: No focal muscle bulk wasting. The tone is normal. The strength is 4/5 throughout. Sensory examination revealed normal pinprick and light touch senses throughout. Deep tendon reflexes were symmetric and hypoactive with absent Achilles responses. IMPRESSION: 1. 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 2. Multiple medical problems include diabetes mellitus, hypertension, chronic obstructive pulmonary disease, obesity, and history of stroke with chronic kidney disease. RECOMMENDATIONS: Continue with current home medication. We will check a ____ level if the patient has a seizure; however, I would recommend the patient to have electroencephalogram. Otherwise we will continue with current medical and psychiatric care. JERRY/NAOMY DR: Stefan TID: [id number]
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
--- NOTE | 2021-05-27 10:57 | PN ---
DATE: 05/22/2021 SUBJECTIVE: Patient denies any new medical or neurological complaints. He has not had any recurrent seizure since admission; however, the patient has been sleeping most of the time. Currently, he denies headaches, visual disturbances, nausea, vomiting, chest pain, shortness of breath or palpitation, dysarthria or dysphagia. OBJECTIVE: GENERAL: Obese male in no acute distress. VITAL SIGNS: Afebrile, blood pressure 131/70, respiratory rate 16, pulse is 69 and regular, temperature 97.8, oxygen saturation 96% on room air. HEENT: Normocephalic, atraumatic, otherwise unremarkable. NECK: Supple. Negative for carotid bruit, lymphadenopathy or thyromegaly. LUNGS: Clear to A and P. CARDIOVASCULAR: Regular rate and rhythm. Normal S1, S2. ABDOMEN: Soft. Bowel sounds positive. EXTREMITIES: Negative for cyanosis, clubbing or pedal edema. NEUROLOGIC: Mental status, the patient is alert and oriented x2. Speech is fluent. There is no language dysfunction. The patient has been drowsy and has spent quite a bit of time in bed. On arousal, he answers all the questions appropriately. He denies hallucination or delusion. Cranial nerves, visual zepeda are full. The pupils are reactive to light and accommodation. The extraocular movements are intact. There is no nystagmus. Otherwise, unremarkable. Motor examination, no focal muscle bulk wasting. The tone is normal. The strength is 4/5 throughout. Sensory examination revealed normal pinprick and light touch senses throughout. Deep tendon reflexes were symmetric and hypoactive with absent Achilles responses bilaterally. Gait, the stance is somewhat steady. The patient can transfer himself from the chair to the walker. IMPRESSION: 1. History of seizure disorder, probably due to a brain injury versus subdural hematoma. 2. Multiple medical and psychiatric disorders as outlined before. RECOMMENDATIONS: We will continue with current management, and continue with psychiatric and medical care. If the patient has seizure or acute mental status changes, we will obtain a head CT scan and arrange for electroencephalogram. COLEMAN DR: Stefan TID: [id number]
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
[2021-05-27 16:06] VITALS: BP 143/74
[2021-05-27] MEDS: MIRTAZAPINE 7.5 MG TABLET. PO SCH (21:07)
--- NOTE | 2021-05-27 22:10 | PDOC ---
Exam Note: Leo Note: Please also refer to the separate dictated note~for this date of service dictated separately.~Patient seen individually. Discussed the patient with Nursing staff reviewed the chart.~Reviewed interim history and current functioning. Reviewed vital signs,~Labs/ Radiology~and current medications noted below. Continue current treatment with the changes noted in the dictated addendum note Assessment: Vital Signs/I&O: Vital Signs Date Time Temp Pulse Resp B/P (MAP) Pulse Ox O2 Delivery O2 Flow Rate FiO2 05/27/21 17:00 77 143/74 05/27/21 16:06 97.7 20 96 05/25/21 15:50 Room Air I & O 05/26/21 05/26/21 05/27/21 15:00 23:00 07:00 Intake Total 840 ml 600 ml Balance 840 ml 600 ml Labs: Laboratory Tests Test 05/27/21 07:36 Glucose (Fingerstick) 103 mg/dL (70-99) H Current Medications: Meds: Laboratory Tests Test 05/27/21 07:36 Glucose (Fingerstick) 103 mg/dL Current Medications Medications (Trade) Dose Ordered Sig/Aparna Route PRN Reason Start Time Stop Time Status Last Admin Dose Admin Acetaminophen (Tylenol) 650 mg PRN Q6HRS PRN PO MILD PAIN / TEMP > 100.3'F 05/17/21 14:45 05/25/21 19:34 Multi-Ingredient Ointment (Analgesic [place]) 1 inna PRN QID PRN TP MUSCLE PAIN 05/17/21 14:45 Al Hydroxide/Mg Hydroxide (Mylanta Plus Xs) 15 ml PRN AFTMEALHC PRN PO DYSPEPSIA 05/17/21 14:45 Magnesium Hydroxide (Milk Of Magnesia) 2,400 mg PRN QHS PRN PO CONSTIPATION 05/17/21 14:45 Aspirin (Aspirin Enteric Coated) 81 mg DAILY PO 05/18/21 09:00 05/27/21 08:12 Budesonide (Pulmicort) 0.5 mg RTBID IH 05/17/21 20:00 05/18/21 13:26 DC Carvedilol (Coreg) 3.125 mg BIDWMEALS PO 05/17/21 17:00 05/27/21 08:00 Lisinopril (Prinivil) 5 mg DAILY PO 05/18/21 09:00 05/25/21 09:35 DC 05/24/21 08:39 Metformin HCl (Glucophage Xr) 500 mg DAILYWBKFT PO 05/18/21 08:00 05/27/21 08:12 Phenytoin Sodium (Dilantin) 100 mg BID PO 05/17/21 21:00 05/18/21 21:00 DC 05/18/21 20:13 Tamsulosin HCl (Flomax) 0.4 mg DAILY PO 05/18/21 09:00 05/27/21 08:12 Cyanocobalamin (Vitamin B-12) 1,000 mcg DAILY PO 05/18/21 09:00 05/27/21 08:12 Non-Formulary Medication (Ipratropium/ Albuterol Sulfate (Combivent Respimat Inhal)) 1 puff QID INH 05/17/21 17:00 05/17/21 15:02 DC Atorvastatin Calcium (Lipitor) 10 mg DAILY PO 05/18/21 09:00 05/27/21 08:12 Albuterol/ Ipratropium (Duoneb) 3 ml RTQID NEB 05/17/21 16:00 05/17/21 20:45 DC Albuterol/ Ipratropium (Combivent Respimat 20-100 Mcg) 1 puff RTQID INH 05/17/21 20:00 05/27/21 21:07 Gabapentin (Neurontin) 300 mg BID PO 05/17/21 21:00 05/27/21 21:07 Fluticasone Furoate (ARNUITY 100mcg ELLIPTA) 1 puff DAILY INH 05/18/21 14:00 05/21/21 08:27 DC 05/20/21 08:41 Phenytoin Sodium (Dilantin) 300 mg DAILY08 PO 05/19/21 08:00 05/27/21 08:12 Duloxetine HCl (Cymbalta) 30 mg DAILY PO 05/19/21 09:00 05/25/21 15:56 DC 05/25/21 12:21 Mirtazapine (Remeron) 7.5 mg QHS PO 05/19/21 21:00 05/27/21 21:07 Trazodone HCl (Desyrel) 50 mg PRN QHS PRN PO sleep 05/19/21 12:30 Divalproex Sodium (Depakote Sprinkles) 125 mg 0900,1300,1700 PO 05/25/21 09:00 05/25/21 16:36 DC 05/25/21 12:20 Duloxetine HCl (Cymbalta) 30 mg DAILY PO 05/26/21 09:00 05/25/21 16:36 DC Duloxetine HCl (Cymbalta) 20 mg DAILY PO 05/26/21 09:00 05/25/21 16:36 DC Duloxetine HCl (Cymbalta) 30 mg DAILY PO 05/26/21 09:00 05/27/21 08:12 I have reviewed the current psychotropics carefully including drug interactions. Risk benefit ratio favors no change other than as noted in my dictated progress note. Diagnosis: Problems: (1) Major depressive disorder (2) Impulse control disorder, unspecified (3) Anxiety disorder, unspecified (4) Dementia, vascular, with depression (5) Dementia, vascular, with delusions (6) Major neurocognitive disorder NIK LOYA MD May 27, 2021 22:10
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
[2021-05-28 05:53] VITALS: BP 148/67
[2021-05-28 06:20] LABS: BASO % 1 % (0-3); EOS # 0.5 x10^3/uL (0.0-0.7); EOS % 9 % (0-3); HEMATOCRIT 31.9 % (39.0-53.0); HEMOGLOBIN 10.6 g/dL (13.0-17.5); LYMPH # 2.2 x10^3/uL (1.0-4.8); LYMPH % 38 % (24-48); MEAN CORPUSCULAR HEMOGLOBIN 34 pg (25-35); MEAN CORPUSCULAR HGB CONC 33 g/dL (31-37); MEAN CORPUSCULAR VOLUME 101 fL (79-100); MONO # 0.5 x10^3/uL (0.0-1.1); MONO % 9 % (0-9); NEUT # 2.5 x10^3uL (1.8-7.7); NEUT % 43 % (31-73); PLATELET COUNT 108 x10^3/uL (140-400); RED BLOOD COUNT 3.15 x10^6/uL (4.30-5.70); RED CELL DISTRIBUTION WIDTH 13.3 % (11.5-14.5); WHITE BLOOD COUNT 5.8 x10^3/uL (4.0-11.0)
[2021-05-28 06:29] LABS: PHENY 5.3 mcg/mL (10.0-20.0)
[2021-05-28 06:39] LABS: ALBUMIN 3.1 g/dL (3.4-5.0); CALCIUM 8.6 mg/dL (8.5-10.1); CREATININE 1.2 mg/dL (0.7-1.3); GFR 58.6; POTASSIUM 4.5 mmol/L (3.5-5.1); TOTAL BILIRUBIN 0.2 mg/dL (0.2-1.0); TOTAL PROTEIN 6.2 g/dL (6.4-8.2)
[2021-05-28] MEDS: IPRATROPIUM/ALBUTEROL 20/100mcg/INH INHALER. INH SCH ×4 (08:00→20:43)
[2021-05-28] MEDS: TAMSULOSIN 0.4 MG CAP.ER.24H. PO SCH (08:07)
[2021-05-28] MEDS: CARVEDILOL 3.125 MG TABLET PO SCH ×2 (08:07→18:05)
[2021-05-28] MEDS: ATORVASTATIN CALCIUM 10 MG TABLET. PO SCH (08:07)
[2021-05-28] MEDS: CYANOCOBALAMIN (VITAMIN B-12) 1,000 MCG TABLET. PO SCH (08:07)
[2021-05-28] MEDS: metFORMIN XR 500 MG TAB.ER.24H PO SCH (08:07)
[2021-05-28] MEDS: ASPIRIN ENTERIC COATED 81 MG TABLET.DR. PO SCH (08:07)
[2021-05-28] MEDS: GABAPENTIN 300 MG CAPSULE. PO SCH ×2 (08:07→20:44)
[2021-05-28] MEDS: DULoxetine HCL 30 MG CAPSULE.DR PO SCH (08:08)
[2021-05-28] MEDS: PHENYTOIN SODIUM EXTENDED 100 MG CAPSULE PO SCH (08:08)
--- NOTE | 2021-05-28 10:18 | NUR ---
Pt has been present and visible on the unit. He appeared to have lower patience with CNAs during breakfast, anxiously and tensely watching them as they were serving other patients and repeatedly asking them for his food despite reassurances from CNAs and requests for more patience. Staff are trying to encourage and facilitate his staying up more during the day, as opposed to being in bed consistently. This in turn is causing pt to become more short and argumentative with CNAs. Pt has not displayed verbal aggression or physical aggression thus far. He is A&O to name and , absent of SI/HI/VH/AH/delusions, he denies pain when asked and is compliant with whole medications. Plan of care continues, will pass to next shift.
--- NOTE | 2021-05-28 10:27 | NUR ---
Pt c/o 6/10 headache. PRN Acetaminophen 650 mg PO administered.
[2021-05-28] MEDS: ACETAMINOPHEN 325 MG TABLET PO PRN (10:28)
--- NOTE | 2021-05-28 13:13 | NUR ---
During lunch pt was observed becoming impatient with another patient and could be heard telling her multiple times to "shut up." Pt was able to be redirected by staff.
[2021-05-28 16:21] VITALS: BP 152/75
[2021-05-28] MEDS: MIRTAZAPINE 7.5 MG TABLET. PO SCH (20:44)
--- NOTE | 2021-05-28 22:47 | PDOC ---
Exam Note: Leo Note: Please also refer to the separate dictated note~for this date of service dictated separately.~Patient seen individually. Discussed the patient with Nursing staff reviewed the chart.~Reviewed interim history and current functioning. Reviewed vital signs,~Labs/ Radiology~and current medications noted below. Continue current treatment with the changes noted in the dictated addendum note Assessment: Vital Signs/I&O: Vital Signs Date Time Temp Pulse Resp B/P (MAP) Pulse Ox O2 Delivery O2 Flow Rate FiO2 05/28/21 18:05 72 152/75 05/28/21 16:21 97.6 18 95 Room Air I & O 05/27/21 05/27/21 05/28/21 15:00 23:00 07:00 Intake Total 600 ml 240 ml Balance 600 ml 240 ml Labs: Laboratory Tests Test 05/28/21 05:58 05/28/21 07:24 White Blood Count 5.8 x10^3/uL (4.0-11.0) Red Blood Count 3.15 x10^6/uL (4.30-5.70) L Hemoglobin 10.6 g/dL (13.0-17.5) L Hematocrit 31.9 % (39.0-53.0) L Mean Corpuscular Volume 101 fL (79-100) H Mean Corpuscular Hemoglobin 34 pg (25-35) Mean Corpuscular Hemoglobin Concent 33 g/dL (31-37) Red Cell Distribution Width 13.3 % (11.5-14.5) Platelet Count 108 x10^3/uL (140-400) L Neutrophils (%) (Auto) 43 % (31-73) Lymphocytes (%) (Auto) 38 % (24-48) Monocytes (%) (Auto) 9 % (0-9) Eosinophils (%) (Auto) 9 % (0-3) H Basophils (%) (Auto) 1 % (0-3) Neutrophils # (Auto) 2.5 x10^3uL (1.8-7.7) Lymphocytes # (Auto) 2.2 x10^3/uL (1.0-4.8) Monocytes # (Auto) 0.5 x10^3/uL (0.0-1.1) Eosinophils # (Auto) 0.5 x10^3/uL (0.0-0.7) Basophils # (Auto) 0.0 x10^3/uL (0.0-0.2) Sodium Level 146 mmol/L (136-145) H Potassium Level 4.5 mmol/L (3.5-5.1) Chloride Level 112 mmol/L (98-107) H Carbon Dioxide Level 26 mmol/L (21-32) Anion Gap 8 (6-14) Blood Urea Nitrogen 42 mg/dL (8-26) H Creatinine 1.2 mg/dL (0.7-1.3) Estimated GFR (Cockcroft-Gault) 58.6 BUN/Creatinine Ratio 35 (6-20) H Glucose Level 94 mg/dL (70-99) Calcium Level 8.6 mg/dL (8.5-10.1) Total Bilirubin 0.2 mg/dL (0.2-1.0) Aspartate Amino Transferase (AST) 13 U/L (15-37) L Alanine Aminotransferase (ALT) 16 U/L (16-63) Alkaline Phosphatase 106 U/L (46-116) Total Protein 6.2 g/dL (6.4-8.2) L Albumin 3.1 g/dL (3.4-5.0) L Albumin/Globulin Ratio 1.0 (1.0-1.7) Phenytoin (Dilantin) Level 5.3 mcg/mL (10.0-20.0) L Phenytoin Last Dose Date 05/27/2021 Phenytoin Last Dose Time 0900 Glucose (Fingerstick) 93 mg/dL (70-99) Current Medications: Meds: Laboratory Tests Test 05/28/21 05:58 05/28/21 07:24 White Blood Count 5.8 x10^3/uL Red Blood Count 3.15 x10^6/uL Hemoglobin 10.6 g/dL Hematocrit 31.9 % Mean Corpuscular Volume 101 fL Mean Corpuscular Hemoglobin 34 pg Mean Corpuscular Hemoglobin Concent 33 g/dL Red Cell Distribution Width 13.3 % Platelet Count 108 x10^3/uL Neutrophils (%) (Auto) 43 % Lymphocytes (%) (Auto) 38 % Monocytes (%) (Auto) 9 % Eosinophils (%) (Auto) 9 % Basophils (%) (Auto) 1 % Neutrophils # (Auto) 2.5 x10^3uL Lymphocytes # (Auto) 2.2 x10^3/uL Monocytes # (Auto) 0.5 x10^3/uL Eosinophils # (Auto) 0.5 x10^3/uL Basophils # (Auto) 0.0 x10^3/uL Sodium Level 146 mmol/L Potassium Level 4.5 mmol/L Chloride Level 112 mmol/L Carbon Dioxide Level 26 mmol/L Anion Gap 8 Blood Urea Nitrogen 42 mg/dL Creatinine 1.2 mg/dL Estimated GFR (Cockcroft-Gault) 58.6 BUN/Creatinine Ratio 35 Glucose Level 94 mg/dL Calcium Level 8.6 mg/dL Total Bilirubin 0.2 mg/dL Aspartate Amino Transf (AST/SGOT) 13 U/L Alanine Aminotransferase (ALT/SGPT) 16 U/L Alkaline Phosphatase 106 U/L Total Protein 6.2 g/dL Albumin 3.1 g/dL Albumin/Globulin Ratio 1.0 Phenytoin (Dilantin) Level 5.3 mcg/mL Phenytoin Last Dose Date 05/27/2021 Phenytoin Last Dose Time 0900 Glucose (Fingerstick) 93 mg/dL Current Medications Medications (Trade) Dose Ordered Sig/Aparna Route PRN Reason Start Time Stop Time Status Last Admin Dose Admin Acetaminophen (Tylenol) 650 mg PRN Q6HRS PRN PO MILD PAIN / TEMP > 100.3'F 05/17/21 14:45 05/28/21 10:28 Multi-Ingredient Ointment (Analgesic [place]) 1 inna PRN QID PRN TP MUSCLE PAIN 05/17/21 14:45 Al Hydroxide/Mg Hydroxide (Mylanta Plus Xs) 15 ml PRN AFTMEALHC PRN PO DYSPEPSIA 05/17/21 14:45 Magnesium Hydroxide (Milk Of Magnesia) 2,400 mg PRN QHS PRN PO CONSTIPATION 05/17/21 14:45 Aspirin (Aspirin Enteric Coated) 81 mg DAILY PO 05/18/21 09:00 05/28/21 08:07 Budesonide (Pulmicort) 0.5 mg RTBID IH 05/17/21 20:00 05/18/21 13:26 DC Carvedilol (Coreg) 3.125 mg BIDWMEALS PO 05/17/21 17:00 05/28/21 18:05 Lisinopril (Prinivil) 5 mg DAILY PO 05/18/21 09:00 05/25/21 09:35 DC 05/24/21 08:39 Metformin HCl (Glucophage Xr) 500 mg DAILYWBKFT PO 05/18/21 08:00 05/28/21 08:07 Phenytoin Sodium (Dilantin) 100 mg BID PO 05/17/21 21:00 05/18/21 21:00 DC 05/18/21 20:13 Tamsulosin HCl (Flomax) 0.4 mg DAILY PO 05/18/21 09:00 05/28/21 08:07 Cyanocobalamin (Vitamin B-12) 1,000 mcg DAILY PO 05/18/21 09:00 05/28/21 08:07 Non-Formulary Medication (Ipratropium/ Albuterol Sulfate (Combivent Respimat Inhal)) 1 puff QID INH 05/17/21 17:00 05/17/21 15:02 DC Atorvastatin Calcium (Lipitor) 10 mg DAILY PO 05/18/21 09:00 05/28/21 08:07 Albuterol/ Ipratropium (Duoneb) 3 ml RTQID NEB 05/17/21 16:00 05/17/21 20:45 DC Albuterol/ Ipratropium (Combivent Respimat 20-100 Mcg) 1 puff RTQID INH 05/17/21 20:00 05/28/21 20:43 Gabapentin (Neurontin) 300 mg BID PO 05/17/21 21:00 05/28/21 20:44 Fluticasone Furoate (ARNUITY 100mcg ELLIPTA) 1 puff DAILY INH 05/18/21 14:00 05/21/21 08:27 DC 05/20/21 08:41 Phenytoin Sodium (Dilantin) 300 mg DAILY08 PO 05/19/21 08:00 05/28/21 08:08 Duloxetine HCl (Cymbalta) 30 mg DAILY PO 05/19/21 09:00 05/25/21 15:56 DC 05/25/21 12:21 Mirtazapine (Remeron) 7.5 mg QHS PO 05/19/21 21:00 05/28/21 20:44 Trazodone HCl (Desyrel) 50 mg PRN QHS PRN PO sleep 05/19/21 12:30 Divalproex Sodium (Depakote Sprinkles) 125 mg 0900,1300,1700 PO 05/25/21 09:00 05/25/21 16:36 DC 05/25/21 12:20 Duloxetine HCl (Cymbalta) 30 mg DAILY PO 05/26/21 09:00 05/25/21 16:36 DC Duloxetine HCl (Cymbalta) 20 mg DAILY PO 05/26/21 09:00 05/25/21 16:36 DC Duloxetine HCl (Cymbalta) 30 mg DAILY PO 05/26/21 09:00 05/28/21 08:08 I have reviewed the current psychotropics carefully including drug interactions. Risk benefit ratio favors no change other than as noted in my dictated progress note. Diagnosis: Problems: (1) Major depressive disorder (2) Impulse control disorder, unspecified (3) Anxiety disorder, unspecified (4) Dementia, vascular, with depression (5) Dementia, vascular, with delusions (6) Major neurocognitive disorder NIK LOYA MD May 28, 2021 22:47
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
[2021-05-29 06:08] VITALS: BP 164/78
[2021-05-29] MEDS: IPRATROPIUM/ALBUTEROL 20/100mcg/INH INHALER. INH SCH ×4 (08:00→21:20)
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
[2021-05-29] MEDS: metFORMIN XR 500 MG TAB.ER.24H PO SCH (09:40)
[2021-05-29] MEDS: CARVEDILOL 3.125 MG TABLET PO SCH ×2 (09:40→17:20)
[2021-05-29] MEDS: GABAPENTIN 300 MG CAPSULE. PO SCH ×2 (09:41→21:20)
[2021-05-29] MEDS: ASPIRIN ENTERIC COATED 81 MG TABLET.DR. PO SCH (09:41)
[2021-05-29] MEDS: CYANOCOBALAMIN (VITAMIN B-12) 1,000 MCG TABLET. PO SCH (09:41)
[2021-05-29] MEDS: PHENYTOIN SODIUM EXTENDED 100 MG CAPSULE PO SCH (09:41)
[2021-05-29] MEDS: DULoxetine HCL 30 MG CAPSULE.DR PO SCH (09:41)
[2021-05-29] MEDS: TAMSULOSIN 0.4 MG CAP.ER.24H. PO SCH (09:41)
[2021-05-29] MEDS: ATORVASTATIN CALCIUM 10 MG TABLET. PO SCH (09:41)
--- NOTE | 2021-05-29 10:57 | NUR ---
Pt has been in bed all morning and did not eat breakfast. He is compliant with whole medications and is cooperative with assessment. He is A&O x2, at times confused and forgetful. Pt has a new room mate and he has not expressed apprehension regarding sharing his room with another individual again. Pt is absent of SI/HI/VH/AH/delusions/pain. His interactions with staff and his room mate have been appropriate. Plan of care continues, will pass to next shift.
[2021-05-29 16:41] VITALS: BP 149/73
[2021-05-29] MEDS: MIRTAZAPINE 7.5 MG TABLET. PO SCH (21:20)
--- NOTE | 2021-05-29 22:12 | PDOC ---
Exam Note: Leo Note: Please also refer to the separate dictated note~for this date of service dictated separately.~Patient seen individually. Discussed the patient with Nursing staff reviewed the chart.~Reviewed interim history and current functioning. Reviewed vital signs,~Labs/ Radiology~and current medications noted below. Continue current treatment with the changes noted in the dictated addendum note Assessment: Vital Signs/I&O: Vital Signs Date Time Temp Pulse Resp B/P (MAP) Pulse Ox O2 Delivery O2 Flow Rate FiO2 05/29/21 17:20 76 149/73 05/29/21 16:41 98.1 18 96 Room Air I & O 05/28/21 05/28/21 05/29/21 15:00 23:00 07:00 Intake Total 600 ml 240 ml Balance 600 ml 240 ml Labs: Laboratory Tests Test 05/29/21 08:14 Glucose (Fingerstick) 85 mg/dL (70-99) Current Medications: Meds: Laboratory Tests Test 05/29/21 08:14 Glucose (Fingerstick) 85 mg/dL Current Medications Medications (Trade) Dose Ordered Sig/Aparna Route PRN Reason Start Time Stop Time Status Last Admin Dose Admin Acetaminophen (Tylenol) 650 mg PRN Q6HRS PRN PO MILD PAIN / TEMP > 100.3'F 05/17/21 14:45 05/28/21 10:28 Multi-Ingredient Ointment (Analgesic [place]) 1 inna PRN QID PRN TP MUSCLE PAIN 05/17/21 14:45 Al Hydroxide/Mg Hydroxide (Mylanta Plus Xs) 15 ml PRN AFTMEALHC PRN PO DYSPEPSIA 05/17/21 14:45 Magnesium Hydroxide (Milk Of Magnesia) 2,400 mg PRN QHS PRN PO CONSTIPATION 05/17/21 14:45 Aspirin (Aspirin Enteric Coated) 81 mg DAILY PO 05/18/21 09:00 05/29/21 09:41 Budesonide (Pulmicort) 0.5 mg RTBID IH 05/17/21 20:00 05/18/21 13:26 DC Carvedilol (Coreg) 3.125 mg BIDWMEALS PO 05/17/21 17:00 05/29/21 17:20 Lisinopril (Prinivil) 5 mg DAILY PO 05/18/21 09:00 05/25/21 09:35 DC 05/24/21 08:39 Metformin HCl (Glucophage Xr) 500 mg DAILYWBKFT PO 05/18/21 08:00 05/29/21 09:40 Phenytoin Sodium (Dilantin) 100 mg BID PO 05/17/21 21:00 05/18/21 21:00 DC 05/18/21 20:13 Tamsulosin HCl (Flomax) 0.4 mg DAILY PO 05/18/21 09:00 05/29/21 09:41 Cyanocobalamin (Vitamin B-12) 1,000 mcg DAILY PO 05/18/21 09:00 05/29/21 09:41 Non-Formulary Medication (Ipratropium/ Albuterol Sulfate (Combivent Respimat Inhal)) 1 puff QID INH 05/17/21 17:00 05/17/21 15:02 DC Atorvastatin Calcium (Lipitor) 10 mg DAILY PO 05/18/21 09:00 05/29/21 09:41 Albuterol/ Ipratropium (Duoneb) 3 ml RTQID NEB 05/17/21 16:00 05/17/21 20:45 DC Albuterol/ Ipratropium (Combivent Respimat 20-100 Mcg) 1 puff RTQID INH 05/17/21 20:00 05/29/21 21:20 Gabapentin (Neurontin) 300 mg BID PO 05/17/21 21:00 05/29/21 21:20 Fluticasone Furoate (ARNUITY 100mcg ELLIPTA) 1 puff DAILY INH 05/18/21 14:00 05/21/21 08:27 DC 05/20/21 08:41 Phenytoin Sodium (Dilantin) 300 mg DAILY08 PO 05/19/21 08:00 05/29/21 09:41 Duloxetine HCl (Cymbalta) 30 mg DAILY PO 05/19/21 09:00 05/25/21 15:56 DC 05/25/21 12:21 Mirtazapine (Remeron) 7.5 mg QHS PO 05/19/21 21:00 05/29/21 21:20 Trazodone HCl (Desyrel) 50 mg PRN QHS PRN PO sleep 05/19/21 12:30 Divalproex Sodium (Depakote Sprinkles) 125 mg 0900,1300,1700 PO 05/25/21 09:00 05/25/21 16:36 DC 05/25/21 12:20 Duloxetine HCl (Cymbalta) 30 mg DAILY PO 05/26/21 09:00 05/25/21 16:36 DC Duloxetine HCl (Cymbalta) 20 mg DAILY PO 05/26/21 09:00 05/25/21 16:36 DC Duloxetine HCl (Cymbalta) 30 mg DAILY PO 05/26/21 09:00 05/29/21 09:41 I have reviewed the current psychotropics carefully including drug interactions. Risk benefit ratio favors no change other than as noted in my dictated progress note. Diagnosis: Problems: (1) Major depressive disorder (2) Impulse control disorder, unspecified (3) Anxiety disorder, unspecified (4) Dementia, vascular, with depression (5) Dementia, vascular, with delusions (6) Major neurocognitive disorder NIK LOYA MD May 29, 2021 22:12
[2021-05-30 05:53] VITALS: BP 134/72
[2021-05-30] MEDS: IPRATROPIUM/ALBUTEROL 20/100mcg/INH INHALER. INH SCH ×4 (08:00→21:16)
[2021-05-30] MEDS: CARVEDILOL 3.125 MG TABLET PO SCH ×2 (08:36→17:38)
[2021-05-30] MEDS: TAMSULOSIN 0.4 MG CAP.ER.24H. PO SCH (08:36)
[2021-05-30] MEDS: metFORMIN XR 500 MG TAB.ER.24H PO SCH (08:36)
[2021-05-30] MEDS: PHENYTOIN SODIUM EXTENDED 100 MG CAPSULE PO SCH (08:36)
[2021-05-30] MEDS: GABAPENTIN 300 MG CAPSULE. PO SCH ×2 (08:37→21:16)
[2021-05-30] MEDS: ATORVASTATIN CALCIUM 10 MG TABLET. PO SCH (08:37)
[2021-05-30] MEDS: DULoxetine HCL 30 MG CAPSULE.DR PO SCH (08:37)
[2021-05-30] MEDS: ASPIRIN ENTERIC COATED 81 MG TABLET.DR. PO SCH (08:37)
[2021-05-30] MEDS: CYANOCOBALAMIN (VITAMIN B-12) 1,000 MCG TABLET. PO SCH (08:37)
--- NOTE | 2021-05-30 09:12 | NUR ---
Pt has been present and visible on the unit. He is appropriate with his interactions with others. Absent of SI/HI/VH/AH/delusions, he denies pain when asked. He is compliant with medications whole. He is able to make his needs known and has voiced no concerns at this time. Appetite appears appropriate and he is consuming adequate amounts of fluids. He remains in a w/c. Plan of care continues, will pass to next shift.
--- NOTE | 2021-05-30 09:50 | NUR ---
ARI spoke with Maikel, pt nephew, and gave him an update on how pt is doing. ARI informed Maikel that SW will not be here on Wednesday; however, starting Wednesday, SW would start to look for placement. Pt does not have many overt behaviors and is hopeful to get him placed by the end of the week, if not the beginning of the week after. ARI will continue to update Maikel.
[2021-05-30 16:13] VITALS: BP 150/75
[2021-05-30] MEDS: MIRTAZAPINE 7.5 MG TABLET. PO SCH (21:16)
--- NOTE | 2021-05-30 22:16 | PDOC ---
Exam Note: Leo Note: This note is a late entry for 05/28/2021 covers elements not covered in my initial note. Subjective: The patient was seen on telehealth rounds in the afternoon of 05/28/2021 as an option during the COVID-19 pandemic period with Maryjane KOWALSKI, discussed and reviewed the chart. The patient slept 8 hours previous night. He remains somewhat impatient, anxious, wants to frequently be back in bed. He was at one point yelling at another patient. Review of Systems: Ambulation impaired in wheelchair. No CV, , pulmonary, eye, ENT system symptoms on review. Reliability varies. Mental Status Exam: The patient is oriented to himself and situation. Speech coherent, has some latency. Often response is monosyllabic. Abstraction fair. Computation impaired. Language function intact. Short-term memory is impaired. No suicidal or homicidal ideation. Laboratory Data: Reviewed. 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 Anxiety disorder unspecified. Impulse control disorder unspecified. Plan: Continue current psychotropics. We will consult physical therapy to help with ambulation since he came in ambulating with a walker and now is in a wheelchair. We will stop the Depakote. Neurology consult with Dr. Newman is awaited given his seizure disorder, subtherapeutic Dilantin level which contributes to impaired ambulation. Assessment: Vital Signs/I&O: Vital Signs Date Time Temp Pulse Resp B/P (MAP) Pulse Ox O2 Delivery O2 Flow Rate FiO2 05/30/21 17:38 108 150/75 05/30/21 16:13 98.0 20 96 05/30/21 05:53 Room Air I & O 05/29/21 05/29/21 05/30/21 14:59 22:59 06:59 Intake Total 360 ml 240 ml 360 ml Balance 360 ml 240 ml 360 ml Current Medications: Meds: Current Medications Medications (Trade) Dose Ordered Sig/Aparna Route PRN Reason Start Time Stop Time Status Last Admin Dose Admin Acetaminophen (Tylenol) 650 mg PRN Q6HRS PRN PO MILD PAIN / TEMP > 100.3'F 05/17/21 14:45 05/28/21 10:28 Multi-Ingredient Ointment (Analgesic [place]) 1 inna PRN QID PRN TP MUSCLE PAIN 05/17/21 14:45 Al Hydroxide/Mg Hydroxide (Mylanta Plus Xs) 15 ml PRN AFTMEALHC PRN PO DYSPEPSIA 05/17/21 14:45 Magnesium Hydroxide (Milk Of Magnesia) 2,400 mg PRN QHS PRN PO CONSTIPATION 05/17/21 14:45 Aspirin (Aspirin Enteric Coated) 81 mg DAILY PO 05/18/21 09:00 05/30/21 08:37 Budesonide (Pulmicort) 0.5 mg RTBID IH 05/17/21 20:00 05/18/21 13:26 DC Carvedilol (Coreg) 3.125 mg BIDWMEALS PO 05/17/21 17:00 05/30/21 17:38 Lisinopril (Prinivil) 5 mg DAILY PO 05/18/21 09:00 05/25/21 09:35 DC 05/24/21 08:39 Metformin HCl (Glucophage Xr) 500 mg DAILYWBKFT PO 05/18/21 08:00 05/30/21 08:36 Phenytoin Sodium (Dilantin) 100 mg BID PO 05/17/21 21:00 05/18/21 21:00 DC 05/18/21 20:13 Tamsulosin HCl (Flomax) 0.4 mg DAILY PO 05/18/21 09:00 05/30/21 08:36 Cyanocobalamin (Vitamin B-12) 1,000 mcg DAILY PO 05/18/21 09:00 05/30/21 08:37 Non-Formulary Medication (Ipratropium/ Albuterol Sulfate (Combivent Respimat Inhal)) 1 puff QID INH 05/17/21 17:00 05/17/21 15:02 DC Atorvastatin Calcium (Lipitor) 10 mg DAILY PO 05/18/21 09:00 05/30/21 08:37 Albuterol/ Ipratropium (Duoneb) 3 ml RTQID NEB 05/17/21 16:00 05/17/21 20:45 DC Albuterol/ Ipratropium (Combivent Respimat 20-100 Mcg) 1 puff RTQID INH 05/17/21 20:00 05/30/21 21:16 Gabapentin (Neurontin) 300 mg BID PO 05/17/21 21:00 05/30/21 21:16 Fluticasone Furoate (ARNUITY 100mcg ELLIPTA) 1 puff DAILY INH 05/18/21 14:00 05/21/21 08:27 DC 05/20/21 08:41 Phenytoin Sodium (Dilantin) 300 mg DAILY08 PO 05/19/21 08:00 05/30/21 08:36 Duloxetine HCl (Cymbalta) 30 mg DAILY PO 05/19/21 09:00 05/25/21 15:56 DC 05/25/21 12:21 Mirtazapine (Remeron) 7.5 mg QHS PO 05/19/21 21:00 05/30/21 21:16 Trazodone HCl (Desyrel) 50 mg PRN QHS PRN PO sleep 05/19/21 12:30 Divalproex Sodium (Depakote Sprinkles) 125 mg 0900,1300,1700 PO 05/25/21 09:00 05/25/21 16:36 DC 05/25/21 12:20 Duloxetine HCl (Cymbalta) 30 mg DAILY PO 05/26/21 09:00 05/25/21 16:36 DC Duloxetine HCl (Cymbalta) 20 mg DAILY PO 05/26/21 09:00 05/25/21 16:36 DC Duloxetine HCl (Cymbalta) 30 mg DAILY PO 05/26/21 09:00 05/30/21 08:37 I have reviewed the current psychotropics carefully including drug interactions. Risk benefit ratio favors no change other than as noted in my dictated progress note. Diagnosis: Problems: (1) Major depressive disorder (2) Impulse control disorder, unspecified (3) Anxiety disorder, unspecified (4) Dementia, vascular, with depression (5) Dementia, vascular, with delusions (6) Major neurocognitive disorder NIK LOYA MD May 30, 2021 22:16
--- NOTE | 2021-05-30 22:39 | PDOC ---
Exam Note: Leo Note: This note is a late entry for 05/29/2021 covers elements not covered in my initial note. Subjective: The patient was seen on telehealth rounds in the afternoon of 05/29/2021 as an option during the COVID-19 pandemic period with Maryjane KOWALSKI, discussed and reviewed the chart. The patient slept 6-3/4 hours previous night. He slept through breakfast. We will await Dr. Allen evaluation for possible seizure disorder. Management of Dilantin level subtherapeutic. Review of Systems: Ambulation impaired in wheelchair. No CV, , pulmonary, eye, ENT system symptoms on review. Reliability varies. Mental Status Exam: The patient is oriented to himself and situation. He is pleasant, verbal, interactive during the individual visit. Speech coherent, has some latency. Often response is monosyllabic. Abstraction fair. Computation impaired. Language function intact. Short-term memory is impaired. Laboratory Data: Reviewed. 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 Anxiety disorder unspecified. Impulse control disorder unspecified. Plan: Continue current psychotropics. We will await Dr. Allen evaluation for possible seizure disorder. Assessment: Vital Signs/I&O: Vital Signs Date Time Temp Pulse Resp B/P (MAP) Pulse Ox O2 Delivery O2 Flow Rate FiO2 05/30/21 17:38 108 150/75 05/30/21 16:13 98.0 20 96 05/30/21 05:53 Room Air I & O 05/29/21 05/29/21 05/30/21 15:00 23:00 07:00 Intake Total 360 ml 240 ml 360 ml Balance 360 ml 240 ml 360 ml Current Medications: Meds: Current Medications Medications (Trade) Dose Ordered Sig/Aparna Route PRN Reason Start Time Stop Time Status Last Admin Dose Admin Acetaminophen (Tylenol) 650 mg PRN Q6HRS PRN PO MILD PAIN / TEMP > 100.3'F 05/17/21 14:45 05/28/21 10:28 Multi-Ingredient Ointment (Analgesic [place]) 1 inna PRN QID PRN TP MUSCLE PAIN 05/17/21 14:45 Al Hydroxide/Mg Hydroxide (Mylanta Plus Xs) 15 ml PRN AFTMEALHC PRN PO DYSPEPSIA 05/17/21 14:45 Magnesium Hydroxide (Milk Of Magnesia) 2,400 mg PRN QHS PRN PO CONSTIPATION 05/17/21 14:45 Aspirin (Aspirin Enteric Coated) 81 mg DAILY PO 05/18/21 09:00 05/30/21 08:37 Budesonide (Pulmicort) 0.5 mg RTBID IH 05/17/21 20:00 05/18/21 13:26 DC Carvedilol (Coreg) 3.125 mg BIDWMEALS PO 05/17/21 17:00 05/30/21 17:38 Lisinopril (Prinivil) 5 mg DAILY PO 05/18/21 09:00 05/25/21 09:35 DC 05/24/21 08:39 Metformin HCl (Glucophage Xr) 500 mg DAILYWBKFT PO 05/18/21 08:00 05/30/21 08:36 Phenytoin Sodium (Dilantin) 100 mg BID PO 05/17/21 21:00 05/18/21 21:00 DC 05/18/21 20:13 Tamsulosin HCl (Flomax) 0.4 mg DAILY PO 05/18/21 09:00 05/30/21 08:36 Cyanocobalamin (Vitamin B-12) 1,000 mcg DAILY PO 05/18/21 09:00 05/30/21 08:37 Non-Formulary Medication (Ipratropium/ Albuterol Sulfate (Combivent Respimat Inhal)) 1 puff QID INH 05/17/21 17:00 05/17/21 15:02 DC Atorvastatin Calcium (Lipitor) 10 mg DAILY PO 05/18/21 09:00 05/30/21 08:37 Albuterol/ Ipratropium (Duoneb) 3 ml RTQID NEB 05/17/21 16:00 05/17/21 20:45 DC Albuterol/ Ipratropium (Combivent Respimat 20-100 Mcg) 1 puff RTQID INH 05/17/21 20:00 05/30/21 21:16 Gabapentin (Neurontin) 300 mg BID PO 05/17/21 21:00 05/30/21 21:16 Fluticasone Furoate (ARNUITY 100mcg ELLIPTA) 1 puff DAILY INH 05/18/21 14:00 05/21/21 08:27 DC 05/20/21 08:41 Phenytoin Sodium (Dilantin) 300 mg DAILY08 PO 05/19/21 08:00 05/30/21 08:36 Duloxetine HCl (Cymbalta) 30 mg DAILY PO 05/19/21 09:00 05/25/21 15:56 DC 05/25/21 12:21 Mirtazapine (Remeron) 7.5 mg QHS PO 05/19/21 21:00 05/30/21 21:16 Trazodone HCl (Desyrel) 50 mg PRN QHS PRN PO sleep 05/19/21 12:30 Divalproex Sodium (Depakote Sprinkles) 125 mg 0900,1300,1700 PO 05/25/21 09:00 05/25/21 16:36 DC 05/25/21 12:20 Duloxetine HCl (Cymbalta) 30 mg DAILY PO 05/26/21 09:00 05/25/21 16:36 DC Duloxetine HCl (Cymbalta) 20 mg DAILY PO 05/26/21 09:00 05/25/21 16:36 DC Duloxetine HCl (Cymbalta) 30 mg DAILY PO 05/26/21 09:00 05/30/21 08:37 I have reviewed the current psychotropics carefully including drug interactions. Risk benefit ratio favors no change other than as noted in my dictated progress note. Diagnosis: Problems: (1) Major depressive disorder (2) Impulse control disorder, unspecified (3) Anxiety disorder, unspecified (4) Dementia, vascular, with depression (5) Dementia, vascular, with delusions (6) Major neurocognitive disorder NIK LOYA MD May 30, 2021 22:39
--- NOTE | 2021-05-30 22:55 | PDOC ---
Exam Note: Leo Note: Please also refer to the separate dictated note~for this date of service dictated separately.~Patient seen individually. Discussed the patient with Nursing staff reviewed the chart.~Reviewed interim history and current functioning. Reviewed vital signs,~Labs/ Radiology~and current medications noted below. Continue current treatment with the changes noted in the dictated addendum note Assessment: Vital Signs/I&O: Vital Signs Date Time Temp Pulse Resp B/P (MAP) Pulse Ox O2 Delivery O2 Flow Rate FiO2 05/30/21 17:38 108 150/75 05/30/21 16:13 98.0 20 96 05/30/21 05:53 Room Air I & O 05/29/21 05/29/21 05/30/21 15:00 23:00 07:00 Intake Total 360 ml 240 ml 360 ml Balance 360 ml 240 ml 360 ml Current Medications: I have reviewed the current psychotropics carefully including drug interactions. Risk benefit ratio favors no change other than as noted in my dictated progress note. Diagnosis: Problems: (1) Major depressive disorder (2) Impulse control disorder, unspecified (3) Anxiety disorder, unspecified (4) Dementia, vascular, with depression (5) Dementia, vascular, with delusions (6) Major neurocognitive disorder NIK LOYA MD May 30, 2021 22:55
--- NOTE | 2021-05-30 23:59 | NUR ---
Patient is in his room on assumption of care, awake in bed. He is pleasantly confused. Disorganized. Compliant with assessments and medications taken whole. No inappropriate comments during this shift. No agitation. Denies pain or discomfort. He appears to be sleeping comfortably at present time. Will continue to monitor.
[2021-05-31] MEDS: ACETAMINOPHEN 325 MG TABLET PO PRN (04:00)
[2021-05-31 06:17] VITALS: BP 131/77
[2021-05-31] MEDS: IPRATROPIUM/ALBUTEROL 20/100mcg/INH INHALER. INH SCH ×4 (08:00→20:24)
[2021-05-31] MEDS: PHENYTOIN SODIUM EXTENDED 100 MG CAPSULE PO SCH (08:55)
[2021-05-31] MEDS: metFORMIN XR 500 MG TAB.ER.24H PO SCH (08:55)
[2021-05-31] MEDS: ASPIRIN ENTERIC COATED 81 MG TABLET.DR. PO SCH (08:55)
[2021-05-31] MEDS: TAMSULOSIN 0.4 MG CAP.ER.24H. PO SCH (08:55)
[2021-05-31] MEDS: GABAPENTIN 300 MG CAPSULE. PO SCH ×2 (08:55→20:24)
[2021-05-31] MEDS: ATORVASTATIN CALCIUM 10 MG TABLET. PO SCH (08:55)
[2021-05-31] MEDS: CYANOCOBALAMIN (VITAMIN B-12) 1,000 MCG TABLET. PO SCH (08:56)
[2021-05-31] MEDS: CARVEDILOL 3.125 MG TABLET PO SCH ×2 (08:56→17:00)
[2021-05-31] MEDS: DULoxetine HCL 30 MG CAPSULE.DR PO SCH (08:56)
[2021-05-31 15:48] VITALS: BP 101/66
--- NOTE | 2021-05-31 17:32 | NUR ---
Pt up in wc. Compliant with meds and cares. Told nurse prior to supper " I want to play with your titties." Pt informed that was not appropriate conversation. Dr Parra spoke with pt and felt he did not seem as energetic as usual. Order for CBC CMP UA ordered. Dr Newman to see.
[2021-05-31] MEDS: MIRTAZAPINE 7.5 MG TABLET. PO SCH (20:25)
--- NOTE | 2021-05-31 22:33 | PDOC ---
Exam Note: Leo Note: Please also refer to the separate dictated note~for this date of service dictated separately.~Patient seen individually. Discussed the patient with Nursing staff reviewed the chart.~Reviewed interim history and current functioning. Reviewed vital signs,~Labs/ Radiology~and current medications noted below. Continue current treatment with the changes noted in the dictated addendum note Assessment: Vital Signs/I&O: Vital Signs Date Time Temp Pulse Resp B/P (MAP) Pulse Ox O2 Delivery O2 Flow Rate FiO2 05/31/21 17:00 71 101/66 05/31/21 15:48 97.7 20 94 05/31/21 06:17 Room Air I & O 05/30/21 05/30/21 05/31/21 15:00 23:00 07:00 Intake Total 720 ml 480 ml Balance 720 ml 480 ml Labs: Laboratory Tests Test 05/31/21 07:27 Glucose (Fingerstick) 95 mg/dL (70-99) Current Medications: I have reviewed the current psychotropics carefully including drug interactions. Risk benefit ratio favors no change other than as noted in my dictated progress note. Diagnosis: Problems: (1) Major depressive disorder (2) Impulse control disorder, unspecified (3) Anxiety disorder, unspecified (4) Dementia, vascular, with depression (5) Dementia, vascular, with delusions (6) Major neurocognitive disorder NIK LOYA MD May 31, 2021 22:33
--- NOTE | 2021-05-31 22:36 | NUR ---
Patient is in the day room on assumption of care, watching television with his peers. He is pleasantly confused. Disorganized. Compliant with assessments and medications taken whole. No inappropriate comments during this shift. No agitation. Denies pain or discomfort. He appears to be sleeping comfortably at present time. Will continue to monitor.
[2021-06-01 05:51] VITALS: BP 127/71
[2021-06-01 07:23] LABS: BASO # 0.1 x10^3/uL (0.0-0.2); BASO % 1 % (0-3); EOS # 0.6 x10^3/uL (0.0-0.7); EOS % 9 % (0-3); HEMATOCRIT 31.6 % (39.0-53.0); HEMOGLOBIN 10.5 g/dL (13.0-17.5); LYMPH # 2.3 x10^3/uL (1.0-4.8); LYMPH % 34 % (24-48); MEAN CORPUSCULAR HEMOGLOBIN 33 pg (25-35); MEAN CORPUSCULAR HGB CONC 33 g/dL (31-37); MEAN CORPUSCULAR VOLUME 100 fL (79-100); MONO # 0.6 x10^3/uL (0.0-1.1); MONO % 9 % (0-9); NEUT # 3.2 x10^3uL (1.8-7.7); NEUT % 48 % (31-73); PLATELET COUNT 110 x10^3/uL (140-400); RED BLOOD COUNT 3.16 x10^6/uL (4.30-5.70); RED CELL DISTRIBUTION WIDTH 13.3 % (11.5-14.5); WHITE BLOOD COUNT 6.7 x10^3/uL (4.0-11.0)
[2021-06-01 07:48] LABS: ALBUMIN 3.1 g/dL (3.4-5.0); ALK PHOS 103 U/L (46-116); ALT (SGPT) 18 U/L (16-63); ANION GAP 6 (6-14); AST (SGOT) 13 U/L (15-37); BLOOD UREA NITROGEN 47 mg/dL (8-26); BUN/CREATININE RATIO 34 (6-20); CALCIUM 8.5 mg/dL (8.5-10.1); CARBON DIOXIDE 28 mmol/L (21-32); CHLORIDE 110 mmol/L (98-107); CREATININE 1.4 mg/dL (0.7-1.3); GLUCOSE 94 mg/dL (70-99); POTASSIUM 4.7 mmol/L (3.5-5.1); SODIUM 144 mmol/L (136-145); TOTAL BILIRUBIN 0.3 mg/dL (0.2-1.0); TOTAL PROTEIN 6.3 g/dL (6.4-8.2)
[2021-06-01] MEDS: DULoxetine HCL 30 MG CAPSULE.DR PO SCH (09:09)
[2021-06-01] MEDS: ASPIRIN ENTERIC COATED 81 MG TABLET.DR. PO SCH (09:09)
[2021-06-01] MEDS: metFORMIN XR 500 MG TAB.ER.24H PO SCH (09:09)
[2021-06-01] MEDS: CARVEDILOL 3.125 MG TABLET PO SCH ×2 (09:10→17:16)
[2021-06-01] MEDS: ATORVASTATIN CALCIUM 10 MG TABLET. PO SCH (09:11)
[2021-06-01] MEDS: CYANOCOBALAMIN (VITAMIN B-12) 1,000 MCG TABLET. PO SCH (09:11)
[2021-06-01] MEDS: PHENYTOIN SODIUM EXTENDED 100 MG CAPSULE PO SCH (09:11)
[2021-06-01] MEDS: TAMSULOSIN 0.4 MG CAP.ER.24H. PO SCH (09:11)
[2021-06-01] MEDS: GABAPENTIN 300 MG CAPSULE. PO SCH ×2 (09:11→20:23)
[2021-06-01 09:12] LABS: % ATYL 4 % (0-0); % BANDS 4 % (0-9); % BASOS 1 % (0-3); % EOS 6 % (0-5); % LYMPHS 34 % (24-48); % MONOS 6 % (0-10); % SEGS 45 % (35-66)
[2021-06-01] MEDS: IPRATROPIUM/ALBUTEROL 20/100mcg/INH INHALER. INH SCH ×4 (09:12→20:00)
[2021-06-01 09:14] LABS: PLT ESTIMATE ADEQUATE (ADEQUATE)
--- NOTE | 2021-06-01 09:33 | PDOC ---
Exam Note: Leo Note: This note is a late entry for 05/30/2021 covers elements not covered in my initial note. Subjective: The patient was seen on telehealth rounds in the afternoon of 05/30/2021 as an option during the COVID-19 pandemic period with Maryjane KOWALSKI, discussed and reviewed the chart. The patient slept 6 hours previous night. Previous evening he was quite rude to the nursing staff, especially in the showers. In the morning he was better. He remains in a wheelchair during telehealth rounds. He was seen by Dr. Newman, Neurology previous evening. EEG awaited. We will defer all this and Dilantin to Dr. Newman. He complains of nausea. Review of Systems: Ambulation impaired in wheelchair. No CV, , pulmonary, eye, ENT system symptoms on review. Mental Status Exam: The patient is oriented to himself and situation. Speech coherent has some latency. Often response is monosyllabic. Abstraction fair. Computation impaired. Language function intact. Short-term memory is impaired. Laboratory Data: Reviewed. 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 Anxiety disorder unspecified. Impulse control disorder unspecified. Plan: Continue current psychotropics and as above. Assessment: Vital Signs/I&O: Vital Signs Date Time Temp Pulse Resp B/P (MAP) Pulse Ox O2 Delivery O2 Flow Rate FiO2 06/01/21 09:10 80 127/71 06/01/21 05:51 97.7 18 94 05/31/21 06:17 Room Air I & O 05/31/21 05/31/21 06/01/21 15:00 23:00 07:00 Intake Total 960 ml 600 ml Balance 960 ml 600 ml Labs: Laboratory Tests Test 06/01/21 07:08 06/01/21 07:54 White Blood Count 6.7 x10^3/uL (4.0-11.0) Red Blood Count 3.16 x10^6/uL (4.30-5.70) L Hemoglobin 10.5 g/dL (13.0-17.5) L Hematocrit 31.6 % (39.0-53.0) L Mean Corpuscular Volume 100 fL (79-100) Mean Corpuscular Hemoglobin 33 pg (25-35) Mean Corpuscular Hemoglobin Concent 33 g/dL (31-37) Red Cell Distribution Width 13.3 % (11.5-14.5) Platelet Count 110 x10^3/uL (140-400) L Neutrophils (%) (Auto) 48 % (31-73) Lymphocytes (%) (Auto) 34 % (24-48) Monocytes (%) (Auto) 9 % (0-9) Eosinophils (%) (Auto) 9 % (0-3) H Basophils (%) (Auto) 1 % (0-3) Neutrophils # (Auto) 3.2 x10^3uL (1.8-7.7) Lymphocytes # (Auto) 2.3 x10^3/uL (1.0-4.8) Monocytes # (Auto) 0.6 x10^3/uL (0.0-1.1) Eosinophils # (Auto) 0.6 x10^3/uL (0.0-0.7) Basophils # (Auto) 0.1 x10^3/uL (0.0-0.2) Segmented Neutrophils % 45 % (35-66) Band Neutrophils % 4 % (0-9) Lymphocytes % 34 % (24-48) Atypical Lymphocytes % (Manual) 4 % (0-0) H Monocytes % 6 % (0-10) Eosinophils % 6 % (0-5) H Basophils % 1 % (0-3) Platelet Estimate Adequate (ADEQUATE) Sodium Level 144 mmol/L (136-145) Potassium Level 4.7 mmol/L (3.5-5.1) Chloride Level 110 mmol/L (98-107) H Carbon Dioxide Level 28 mmol/L (21-32) Anion Gap 6 (6-14) Blood Urea Nitrogen 47 mg/dL (8-26) H Creatinine 1.4 mg/dL (0.7-1.3) H Estimated GFR (Cockcroft-Gault) 49.0 BUN/Creatinine Ratio 34 (6-20) H Glucose Level 94 mg/dL (70-99) Calcium Level 8.5 mg/dL (8.5-10.1) Total Bilirubin 0.3 mg/dL (0.2-1.0) Aspartate Amino Transferase (AST) 13 U/L (15-37) L Alanine Aminotransferase (ALT) 18 U/L (16-63) Alkaline Phosphatase 103 U/L (46-116) Total Protein 6.3 g/dL (6.4-8.2) L Albumin 3.1 g/dL (3.4-5.0) L Albumin/Globulin Ratio 1.0 (1.0-1.7) Phenytoin (Dilantin) Level 5.0 mcg/mL (10.0-20.0) L Phenytoin Last Dose Date 05/31/21 Phenytoin Last Dose Time 2100 Glucose (Fingerstick) 114 mg/dL (70-99) H Current Medications: Meds: Laboratory Tests Test 06/01/21 07:08 06/01/21 07:54 White Blood Count 6.7 x10^3/uL Red Blood Count 3.16 x10^6/uL Hemoglobin 10.5 g/dL Hematocrit 31.6 % Mean Corpuscular Volume 100 fL Mean Corpuscular Hemoglobin 33 pg Mean Corpuscular Hemoglobin Concent 33 g/dL Red Cell Distribution Width 13.3 % Platelet Count 110 x10^3/uL Neutrophils (%) (Auto) 48 % Lymphocytes (%) (Auto) 34 % Monocytes (%) (Auto) 9 % Eosinophils (%) (Auto) 9 % Basophils (%) (Auto) 1 % Neutrophils # (Auto) 3.2 x10^3uL Lymphocytes # (Auto) 2.3 x10^3/uL Monocytes # (Auto) 0.6 x10^3/uL Eosinophils # (Auto) 0.6 x10^3/uL Basophils # (Auto) 0.1 x10^3/uL Segmented Neutrophils % 45 % Band Neutrophils % 4 % Lymphocytes % 34 % Atypical Lymphocytes % (Manual) 4 % Monocytes % 6 % Eosinophils % 6 % Basophils % 1 % Platelet Estimate Adequate Sodium Level 144 mmol/L Potassium Level 4.7 mmol/L Chloride Level 110 mmol/L Carbon Dioxide Level 28 mmol/L Anion Gap 6 Blood Urea Nitrogen 47 mg/dL Creatinine 1.4 mg/dL Estimated GFR (Cockcroft-Gault) 49.0 BUN/Creatinine Ratio 34 Glucose Level 94 mg/dL Calcium Level 8.5 mg/dL Total Bilirubin 0.3 mg/dL Aspartate Amino Transf (AST/SGOT) 13 U/L Alanine Aminotransferase (ALT/SGPT) 18 U/L Alkaline Phosphatase 103 U/L Total Protein 6.3 g/dL Albumin 3.1 g/dL Albumin/Globulin Ratio 1.0 Phenytoin (Dilantin) Level 5.0 mcg/mL Phenytoin Last Dose Date 05/31/21 Phenytoin Last Dose Time 2100 Glucose (Fingerstick) 114 mg/dL Current Medications Medications (Trade) Dose Ordered Sig/Aparna Route PRN Reason Start Time Stop Time Status Last Admin Dose Admin Acetaminophen (Tylenol) 650 mg PRN Q6HRS PRN PO MILD PAIN / TEMP > 100.3'F 05/17/21 14:45 05/31/21 04:00 Multi-Ingredient Ointment (Analgesic [place]) 1 inna PRN QID PRN TP MUSCLE PAIN 05/17/21 14:45 Al Hydroxide/Mg Hydroxide (Mylanta Plus Xs) 15 ml PRN AFTMEALHC PRN PO DYSPEPSIA 05/17/21 14:45 Magnesium Hydroxide (Milk Of Magnesia) 2,400 mg PRN QHS PRN PO CONSTIPATION 05/17/21 14:45 Aspirin (Aspirin Enteric Coated) 81 mg DAILY PO 05/18/21 09:00 06/01/21 09:09 Budesonide (Pulmicort) 0.5 mg RTBID IH 05/17/21 20:00 05/18/21 13:26 DC Carvedilol (Coreg) 3.125 mg BIDWMEALS PO 05/17/21 17:00 06/01/21 09:10 Lisinopril (Prinivil) 5 mg DAILY PO 05/18/21 09:00 05/25/21 09:35 DC 05/24/21 08:39 Metformin HCl (Glucophage Xr) 500 mg DAILYWBKFT PO 05/18/21 08:00 06/01/21 09:09 Phenytoin Sodium (Dilantin) 100 mg BID PO 05/17/21 21:00 05/18/21 21:00 DC 05/18/21 20:13 Tamsulosin HCl (Flomax) 0.4 mg DAILY PO 05/18/21 09:00 06/01/21 09:11 Cyanocobalamin (Vitamin B-12) 1,000 mcg DAILY PO 05/18/21 09:00 06/01/21 09:11 Non-Formulary Medication (Ipratropium/ Albuterol Sulfate (Combivent Respimat Inhal)) 1 puff QID INH 05/17/21 17:00 05/17/21 15:02 DC Atorvastatin Calcium (Lipitor) 10 mg DAILY PO 05/18/21 09:00 06/01/21 09:11 Albuterol/ Ipratropium (Duoneb) 3 ml RTQID NEB 05/17/21 16:00 05/17/21 20:45 DC Albuterol/ Ipratropium (Combivent Respimat 20-100 Mcg) 1 puff RTQID INH 05/17/21 20:00 06/01/21 09:12 Gabapentin (Neurontin) 300 mg BID PO 05/17/21 21:00 06/01/21 09:11 Fluticasone Furoate (ARNUITY 100mcg ELLIPTA) 1 puff DAILY INH 05/18/21 14:00 05/21/21 08:27 DC 05/20/21 08:41 Phenytoin Sodium (Dilantin) 300 mg DAILY08 PO 05/19/21 08:00 06/01/21 09:11 Duloxetine HCl (Cymbalta) 30 mg DAILY PO 05/19/21 09:00 05/25/21 15:56 DC 05/25/21 12:21 Mirtazapine (Remeron) 7.5 mg QHS PO 05/19/21 21:00 05/31/21 20:25 Trazodone HCl (Desyrel) 50 mg PRN QHS PRN PO sleep 05/19/21 12:30 Divalproex Sodium (Depakote Sprinkles) 125 mg 0900,1300,1700 PO 05/25/21 09:00 05/25/21 16:36 DC 05/25/21 12:20 Duloxetine HCl (Cymbalta) 30 mg DAILY PO 05/26/21 09:00 05/25/21 16:36 DC Duloxetine HCl (Cymbalta) 20 mg DAILY PO 05/26/21 09:00 05/25/21 16:36 DC Duloxetine HCl (Cymbalta) 30 mg DAILY PO 05/26/21 09:00 06/01/21 09:09 I have reviewed the current psychotropics carefully including drug interactions. Risk benefit ratio favors no change other than as noted in my dictated progress note. Diagnosis: Problems: (1) Major depressive disorder (2) Impulse control disorder, unspecified (3) Anxiety disorder, unspecified (4) Dementia, vascular, with depression (5) Dementia, vascular, with delusions (6) Major neurocognitive disorder NIK LOYA MD Jun 01, 2021 09:33
--- NOTE | 2021-06-01 09:54 | PDOC ---
Exam Note: Leo Note: This note is a late entry for 05/31/2021 covers elements not covered in my initial note. Subjective: The patient was seen on telehealth rounds in the afternoon of 05/31/2021 as an option during the COVID-19 pandemic period with Jazmin KOWALSKI, discussed and reviewed the chart. The patient slept 7 hours previous night. Apparently he told the nursing staff last evening that he felt he was in a train. He was not sexually inappropriate, most of the day but late evening he had another conversation separately with female nursing staff. He had been quite inappropriate in making sexual comments. He is quite sedated, withdrawn. Review of Systems: Ambulation impaired in wheelchair. No CV, , pulmonary, eye, ENT system symptoms on review. Reliability varies. Mental Status Exam: The patient is oriented to himself and situation. Speech coherent, has some latency. Often response is monosyllabic. Abstraction fair. Computation impaired. Language function intact. Short-term memory is impaired. Laboratory Data: Reviewed. We will repeat CBC, CMP and UA. ON last check on 05/28, there was some evidence of dehydration. BUN 42, creatinine 1.2, sodium 146, chloride 112. 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 Anxiety d isorder unspecified. Impulse control disorder unspecified. Plan: Continue current psychotropics. Assessment: Vital Signs/I&O: Vital Signs Date Time Temp Pulse Resp B/P (MAP) Pulse Ox O2 Delivery O2 Flow Rate FiO2 06/01/21 09:10 80 127/71 06/01/21 05:51 97.7 18 94 05/31/21 06:17 Room Air I & O 05/31/21 05/31/21 06/01/21 14:59 22:59 06:59 Intake Total 960 ml 600 ml Balance 960 ml 600 ml Labs: Laboratory Tests Test 06/01/21 07:08 06/01/21 07:54 White Blood Count 6.7 x10^3/uL (4.0-11.0) Red Blood Count 3.16 x10^6/uL (4.30-5.70) L Hemoglobin 10.5 g/dL (13.0-17.5) L Hematocrit 31.6 % (39.0-53.0) L Mean Corpuscular Volume 100 fL (79-100) Mean Corpuscular Hemoglobin 33 pg (25-35) Mean Corpuscular Hemoglobin Concent 33 g/dL (31-37) Red Cell Distribution Width 13.3 % (11.5-14.5) Platelet Count 110 x10^3/uL (140-400) L Neutrophils (%) (Auto) 48 % (31-73) Lymphocytes (%) (Auto) 34 % (24-48) Monocytes (%) (Auto) 9 % (0-9) Eosinophils (%) (Auto) 9 % (0-3) H Basophils (%) (Auto) 1 % (0-3) Neutrophils # (Auto) 3.2 x10^3uL (1.8-7.7) Lymphocytes # (Auto) 2.3 x10^3/uL (1.0-4.8) Monocytes # (Auto) 0.6 x10^3/uL (0.0-1.1) Eosinophils # (Auto) 0.6 x10^3/uL (0.0-0.7) Basophils # (Auto) 0.1 x10^3/uL (0.0-0.2) Segmented Neutrophils % 45 % (35-66) Band Neutrophils % 4 % (0-9) Lymphocytes % 34 % (24-48) Atypical Lymphocytes % (Manual) 4 % (0-0) H Monocytes % 6 % (0-10) Eosinophils % 6 % (0-5) H Basophils % 1 % (0-3) Platelet Estimate Adequate (ADEQUATE) Sodium Level 144 mmol/L (136-145) Potassium Level 4.7 mmol/L (3.5-5.1) Chloride Level 110 mmol/L (98-107) H Carbon Dioxide Level 28 mmol/L (21-32) Anion Gap 6 (6-14) Blood Urea Nitrogen 47 mg/dL (8-26) H Creatinine 1.4 mg/dL (0.7-1.3) H Estimated GFR (Cockcroft-Gault) 49.0 BUN/Creatinine Ratio 34 (6-20) H Glucose Level 94 mg/dL (70-99) Calcium Level 8.5 mg/dL (8.5-10.1) Total Bilirubin 0.3 mg/dL (0.2-1.0) Aspartate Amino Transferase (AST) 13 U/L (15-37) L Alanine Aminotransferase (ALT) 18 U/L (16-63) Alkaline Phosphatase 103 U/L (46-116) Total Protein 6.3 g/dL (6.4-8.2) L Albumin 3.1 g/dL (3.4-5.0) L Albumin/Globulin Ratio 1.0 (1.0-1.7) Phenytoin (Dilantin) Level 5.0 mcg/mL (10.0-20.0) L Phenytoin Last Dose Date 05/31/21 Phenytoin Last Dose Time 2100 Glucose (Fingerstick) 114 mg/dL (70-99) H Current Medications: Meds: Laboratory Tests Test 06/01/21 07:08 06/01/21 07:54 White Blood Count 6.7 x10^3/uL Red Blood Count 3.16 x10^6/uL Hemoglobin 10.5 g/dL Hematocrit 31.6 % Mean Corpuscular Volume 100 fL Mean Corpuscular Hemoglobin 33 pg Mean Corpuscular Hemoglobin Concent 33 g/dL Red Cell Distribution Width 13.3 % Platelet Count 110 x10^3/uL Neutrophils (%) (Auto) 48 % Lymphocytes (%) (Auto) 34 % Monocytes (%) (Auto) 9 % Eosinophils (%) (Auto) 9 % Basophils (%) (Auto) 1 % Neutrophils # (Auto) 3.2 x10^3uL Lymphocytes # (Auto) 2.3 x10^3/uL Monocytes # (Auto) 0.6 x10^3/uL Eosinophils # (Auto) 0.6 x10^3/uL Basophils # (Auto) 0.1 x10^3/uL Segmented Neutrophils % 45 % Band Neutrophils % 4 % Lymphocytes % 34 % Atypical Lymphocytes % (Manual) 4 % Monocytes % 6 % Eosinophils % 6 % Basophils % 1 % Platelet Estimate Adequate Sodium Level 144 mmol/L Potassium Level 4.7 mmol/L Chloride Level 110 mmol/L Carbon Dioxide Level 28 mmol/L Anion Gap 6 Blood Urea Nitrogen 47 mg/dL Creatinine 1.4 mg/dL Estimated GFR (Cockcroft-Gault) 49.0 BUN/Creatinine Ratio 34 Glucose Level 94 mg/dL Calcium Level 8.5 mg/dL Total Bilirubin 0.3 mg/dL Aspartate Amino Transf (AST/SGOT) 13 U/L Alanine Aminotransferase (ALT/SGPT) 18 U/L Alkaline Phosphatase 103 U/L Total Protein 6.3 g/dL Albumin 3.1 g/dL Albumin/Globulin Ratio 1.0 Phenytoin (Dilantin) Level 5.0 mcg/mL Phenytoin Last Dose Date 05/31/21 Phenytoin Last Dose Time 2100 Glucose (Fingerstick) 114 mg/dL Current Medications Medications (Trade) Dose Ordered Sig/Aparna Route PRN Reason Start Time Stop Time Status Last Admin Dose Admin Acetaminophen (Tylenol) 650 mg PRN Q6HRS PRN PO MILD PAIN / TEMP > 100.3'F 05/17/21 14:45 05/31/21 04:00 Multi-Ingredient Ointment (Analgesic [place]) 1 inna PRN QID PRN TP MUSCLE PAIN 05/17/21 14:45 Al Hydroxide/Mg Hydroxide (Mylanta Plus Xs) 15 ml PRN AFTMEALHC PRN PO DYSPEPSIA 05/17/21 14:45 Magnesium Hydroxide (Milk Of Magnesia) 2,400 mg PRN QHS PRN PO CONSTIPATION 05/17/21 14:45 Aspirin (Aspirin Enteric Coated) 81 mg DAILY PO 05/18/21 09:00 06/01/21 09:09 Budesonide (Pulmicort) 0.5 mg RTBID IH 05/17/21 20:00 05/18/21 13:26 DC Carvedilol (Coreg) 3.125 mg BIDWMEALS PO 05/17/21 17:00 06/01/21 09:10 Lisinopril (Prinivil) 5 mg DAILY PO 05/18/21 09:00 05/25/21 09:35 DC 05/24/21 08:39 Metformin HCl (Glucophage Xr) 500 mg DAILYWBKFT PO 05/18/21 08:00 06/01/21 09:09 Phenytoin Sodium (Dilantin) 100 mg BID PO 05/17/21 21:00 05/18/21 21:00 DC 05/18/21 20:13 Tamsulosin HCl (Flomax) 0.4 mg DAILY PO 05/18/21 09:00 06/01/21 09:11 Cyanocobalamin (Vitamin B-12) 1,000 mcg DAILY PO 05/18/21 09:00 06/01/21 09:11 Non-Formulary Medication (Ipratropium/ Albuterol Sulfate (Combivent Respimat Inhal)) 1 puff QID INH 05/17/21 17:00 05/17/21 15:02 DC Atorvastatin Calcium (Lipitor) 10 mg DAILY PO 05/18/21 09:00 06/01/21 09:11 Albuterol/ Ipratropium (Duoneb) 3 ml RTQID NEB 05/17/21 16:00 05/17/21 20:45 DC Albuterol/ Ipratropium (Combivent Respimat 20-100 Mcg) 1 puff RTQID INH 05/17/21 20:00 06/01/21 09:12 Gabapentin (Neurontin) 300 mg BID PO 05/17/21 21:00 06/01/21 09:11 Fluticasone Furoate (ARNUITY 100mcg ELLIPTA) 1 puff DAILY INH 05/18/21 14:00 05/21/21 08:27 DC 05/20/21 08:41 Phenytoin Sodium (Dilantin) 300 mg DAILY08 PO 05/19/21 08:00 06/01/21 09:11 Duloxetine HCl (Cymbalta) 30 mg DAILY PO 05/19/21 09:00 05/25/21 15:56 DC 05/25/21 12:21 Mirtazapine (Remeron) 7.5 mg QHS PO 05/19/21 21:00 05/31/21 20:25 Trazodone HCl (Desyrel) 50 mg PRN QHS PRN PO sleep 05/19/21 12:30 Divalproex Sodium (Depakote Sprinkles) 125 mg 0900,1300,1700 PO 05/25/21 09:00 05/25/21 16:36 DC 05/25/21 12:20 Duloxetine HCl (Cymbalta) 30 mg DAILY PO 05/26/21 09:00 05/25/21 16:36 DC Duloxetine HCl (Cymbalta) 20 mg DAILY PO 05/26/21 09:00 05/25/21 16:36 DC Duloxetine HCl (Cymbalta) 30 mg DAILY PO 05/26/21 09:00 06/01/21 09:09 I have reviewed the current psychotropics carefully including drug interactions. Risk benefit ratio favors no change other than as noted in my dictated progress note. Diagnosis: Problems: (1) Major depressive disorder (2) Impulse control disorder, unspecified (3) Anxiety disorder, unspecified (4) Dementia, vascular, with depression (5) Dementia, vascular, with delusions (6) Major neurocognitive disorder (7) Medical clearance for psychiatric admission NIK LOYA MD Jun 01, 2021 09:54
--- NOTE | 2021-06-01 12:05 | RAD ---
EXAMINATION: CT HEAD/BRAIN WO (CT HEAD WITHOUT IV CONTRAST) CLINICAL HISTORY: Head pain following fall TECHNIQUE: Serial axial images without IV contrast were obtained from the vertex to the foramen magnu m. CT Dose Reduction Employed: One or more of the following individualized dose reduction techniques wer e utilized for this examination: 1. Automated exposure control 2. Adjustment of the mA and/or kV ac cording to patient size 3. Use of iterative reconstruction technique. COMPARISON: 05/26/2021 FINDINGS: Acute Change: No evidence of an acute contusion or other acute parenchymal process. Hemorrhage: No evidence of acute intracranial hemorrhage. Mass Lesion/Mass Effect: No evidence of intracranial mass or extraaxial fluid collection. No signific ant mass effect. Chronic Change: Redemonstration of left temporal lobe encephalomalacia. Scattered patchy foci of hypo attenuation in the supratentorial white matter, nonspecific but likely represents mild microvascular ischemia. Atherosclerotic calcification of the anterior and posterior circulation. Parenchyma: Mild generalized volume loss. Ventricles: Ventricles within normal limits for age. Paranasal Sinuses and Skull Base: Sinus postoperative changes with multifocal mucosal thickening/opac ification, similar to prior study. Left frontoparietal craniotomy. No acute calvarial fracture. IMPRESSION: No evidence of acute intracranial abnormality or significant interval change. Electronically signed by: Messi Telles DO (06/01/2021 12:02 PM) [facility]
--- NOTE | 2021-06-01 12:10 | RAD ---
EXAMINATION: XR ELBOW CLINICAL HISTORY: Elbow pain following fall TECHNIQUE: XR ELBOW Number of Images/Views: 6 COMPARISON: None FINDINGS: Joint spaces and alignment relatively well maintained. No acute fracture. No focal soft tissue swelli ng. IMPRESSION: No acute osseous abnormality. Electronically signed by: Messi Telles DO (06/01/2021 12:08 PM) [facility]
[2021-06-01 16:38] VITALS: BP 134/75
[2021-06-01] MEDS: MIRTAZAPINE 7.5 MG TABLET. PO SCH (20:24)
--- NOTE | 2021-06-01 22:02 | PDOC ---
Exam Note: Leo Note: Please also refer to the separate dictated note~for this date of service dictated separately.~Patient seen individually. Discussed the patient with Nursing staff reviewed the chart.~Reviewed interim history and current functioning. Reviewed vital signs,~Labs/ Radiology~and current medications noted below. Continue current treatment with the changes noted in the dictated addendum note Assessment: Vital Signs/I&O: Vital Signs Date Time Temp Pulse Resp B/P (MAP) Pulse Ox O2 Delivery O2 Flow Rate FiO2 06/01/21 17:16 78 134/75 06/01/21 16:38 97.8 18 98 05/31/21 06:17 Room Air I & O 05/31/21 05/31/21 06/01/21 14:59 22:59 06:59 Intake Total 960 ml 600 ml Balance 960 ml 600 ml Labs: Laboratory Tests Test 06/01/21 07:08 06/01/21 07:54 White Blood Count 6.7 x10^3/uL (4.0-11.0) Red Blood Count 3.16 x10^6/uL (4.30-5.70) L Hemoglobin 10.5 g/dL (13.0-17.5) L Hematocrit 31.6 % (39.0-53.0) L Mean Corpuscular Volume 100 fL (79-100) Mean Corpuscular Hemoglobin 33 pg (25-35) Mean Corpuscular Hemoglobin Concent 33 g/dL (31-37) Red Cell Distribution Width 13.3 % (11.5-14.5) Platelet Count 110 x10^3/uL (140-400) L Neutrophils (%) (Auto) 48 % (31-73) Lymphocytes (%) (Auto) 34 % (24-48) Monocytes (%) (Auto) 9 % (0-9) Eosinophils (%) (Auto) 9 % (0-3) H Basophils (%) (Auto) 1 % (0-3) Neutrophils # (Auto) 3.2 x10^3uL (1.8-7.7) Lymphocytes # (Auto) 2.3 x10^3/uL (1.0-4.8) Monocytes # (Auto) 0.6 x10^3/uL (0.0-1.1) Eosinophils # (Auto) 0.6 x10^3/uL (0.0-0.7) Basophils # (Auto) 0.1 x10^3/uL (0.0-0.2) Segmented Neutrophils % 45 % (35-66) Band Neutrophils % 4 % (0-9) Lymphocytes % 34 % (24-48) Atypical Lymphocytes % (Manual) 4 % (0-0) H Monocytes % 6 % (0-10) Eosinophils % 6 % (0-5) H Basophils % 1 % (0-3) Platelet Estimate Adequate (ADEQUATE) Sodium Level 144 mmol/L (136-145) Potassium Level 4.7 mmol/L (3.5-5.1) Chloride Level 110 mmol/L (98-107) H Carbon Dioxide Level 28 mmol/L (21-32) Anion Gap 6 (6-14) Blood Urea Nitrogen 47 mg/dL (8-26) H Creatinine 1.4 mg/dL (0.7-1.3) H Estimated GFR (Cockcroft-Gault) 49.0 BUN/Creatinine Ratio 34 (6-20) H Glucose Level 94 mg/dL (70-99) Calcium Level 8.5 mg/dL (8.5-10.1) Total Bilirubin 0.3 mg/dL (0.2-1.0) Aspartate Amino Transferase (AST) 13 U/L (15-37) L Alanine Aminotransferase (ALT) 18 U/L (16-63) Alkaline Phosphatase 103 U/L (46-116) Total Protein 6.3 g/dL (6.4-8.2) L Albumin 3.1 g/dL (3.4-5.0) L Albumin/Globulin Ratio 1.0 (1.0-1.7) Phenytoin (Dilantin) Level 5.0 mcg/mL (10.0-20.0) L Phenytoin Last Dose Date 05/31/21 Phenytoin Last Dose Time 2100 Glucose (Fingerstick) 114 mg/dL (70-99) H Current Medications: Meds: Laboratory Tests Test 06/01/21 07:08 06/01/21 07:54 White Blood Count 6.7 x10^3/uL Red Blood Count 3.16 x10^6/uL Hemoglobin 10.5 g/dL Hematocrit 31.6 % Mean Corpuscular Volume 100 fL Mean Corpuscular Hemoglobin 33 pg Mean Corpuscular Hemoglobin Concent 33 g/dL Red Cell Distribution Width 13.3 % Platelet Count 110 x10^3/uL Neutrophils (%) (Auto) 48 % Lymphocytes (%) (Auto) 34 % Monocytes (%) (Auto) 9 % Eosinophils (%) (Auto) 9 % Basophils (%) (Auto) 1 % Neutrophils # (Auto) 3.2 x10^3uL Lymphocytes # (Auto) 2.3 x10^3/uL Monocytes # (Auto) 0.6 x10^3/uL Eosinophils # (Auto) 0.6 x10^3/uL Basophils # (Auto) 0.1 x10^3/uL Segmented Neutrophils % 45 % Band Neutrophils % 4 % Lymphocytes % 34 % Atypical Lymphocytes % (Manual) 4 % Monocytes % 6 % Eosinophils % 6 % Basophils % 1 % Platelet Estimate Adequate Sodium Level 144 mmol/L Potassium Level 4.7 mmol/L Chloride Level 110 mmol/L Carbon Dioxide Level 28 mmol/L Anion Gap 6 Blood Urea Nitrogen 47 mg/dL Creatinine 1.4 mg/dL Estimated GFR (Cockcroft-Gault) 49.0 BUN/Creatinine Ratio 34 Glucose Level 94 mg/dL Calcium Level 8.5 mg/dL Total Bilirubin 0.3 mg/dL Aspartate Amino Transf (AST/SGOT) 13 U/L Alanine Aminotransferase (ALT/SGPT) 18 U/L Alkaline Phosphatase 103 U/L Total Protein 6.3 g/dL Albumin 3.1 g/dL Albumin/Globulin Ratio 1.0 Phenytoin (Dilantin) Level 5.0 mcg/mL Phenytoin Last Dose Date 05/31/21 Phenytoin Last Dose Time 2100 Glucose (Fingerstick) 114 mg/dL Current Medications Medications (Trade) Dose Ordered Sig/Aparna Route PRN Reason Start Time Stop Time Status Last Admin Dose Admin Acetaminophen (Tylenol) 650 mg PRN Q6HRS PRN PO MILD PAIN / TEMP > 100.3'F 05/17/21 14:45 05/31/21 04:00 Multi-Ingredient Ointment (Analgesic [place]) 1 inna PRN QID PRN TP MUSCLE PAIN 05/17/21 14:45 Al Hydroxide/Mg Hydroxide (Mylanta Plus Xs) 15 ml PRN AFTMEALHC PRN PO DYSPEPSIA 05/17/21 14:45 Magnesium Hydroxide (Milk Of Magnesia) 2,400 mg PRN QHS PRN PO CONSTIPATION 05/17/21 14:45 Aspirin (Aspirin Enteric Coated) 81 mg DAILY PO 05/18/21 09:00 06/01/21 09:09 Budesonide (Pulmicort) 0.5 mg RTBID IH 05/17/21 20:00 05/18/21 13:26 DC Carvedilol (Coreg) 3.125 mg BIDWMEALS PO 05/17/21 17:00 06/01/21 17:16 Lisinopril (Prinivil) 5 mg DAILY PO 05/18/21 09:00 05/25/21 09:35 DC 05/24/21 08:39 Metformin HCl (Glucophage Xr) 500 mg DAILYWBKFT PO 05/18/21 08:00 06/01/21 09:09 Phenytoin Sodium (Dilantin) 100 mg BID PO 05/17/21 21:00 05/18/21 21:00 DC 05/18/21 20:13 Tamsulosin HCl (Flomax) 0.4 mg DAILY PO 05/18/21 09:00 06/01/21 09:11 Cyanocobalamin (Vitamin B-12) 1,000 mcg DAILY PO 05/18/21 09:00 06/01/21 09:11 Non-Formulary Medication (Ipratropium/ Albuterol Sulfate (Combivent Respimat Inhal)) 1 puff QID INH 05/17/21 17:00 05/17/21 15:02 DC Atorvastatin Calcium (Lipitor) 10 mg DAILY PO 05/18/21 09:00 06/01/21 09:11 Albuterol/ Ipratropium (Duoneb) 3 ml RTQID NEB 05/17/21 16:00 05/17/21 20:45 DC Albuterol/ Ipratropium (Combivent Respimat 20-100 Mcg) 1 puff RTQID INH 05/17/21 20:00 06/01/21 20:00 Gabapentin (Neurontin) 300 mg BID PO 05/17/21 21:00 06/01/21 20:23 Fluticasone Furoate (ARNUITY 100mcg ELLIPTA) 1 puff DAILY INH 05/18/21 14:00 05/21/21 08:27 DC 05/20/21 08:41 Phenytoin Sodium (Dilantin) 300 mg DAILY08 PO 05/19/21 08:00 06/01/21 09:11 Duloxetine HCl (Cymbalta) 30 mg DAILY PO 05/19/21 09:00 05/25/21 15:56 DC 05/25/21 12:21 Mirtazapine (Remeron) 7.5 mg QHS PO 05/19/21 21:00 06/01/21 20:24 Trazodone HCl (Desyrel) 50 mg PRN QHS PRN PO sleep 05/19/21 12:30 Divalproex Sodium (Depakote Sprinkles) 125 mg 0900,1300,1700 PO 05/25/21 09:00 05/25/21 16:36 DC 05/25/21 12:20 Duloxetine HCl (Cymbalta) 30 mg DAILY PO 05/26/21 09:00 05/25/21 16:36 DC Duloxetine HCl (Cymbalta) 20 mg DAILY PO 05/26/21 09:00 05/25/21 16:36 DC Duloxetine HCl (Cymbalta) 30 mg DAILY PO 05/26/21 09:00 06/01/21 09:09 I have reviewed the current psychotropics carefully including drug interactions. Risk benefit ratio favors no change other than as noted in my dictated progress note. Diagnosis: Problems: (1) Major depressive disorder (2) Impulse control disorder, unspecified (3) Anxiety disorder, unspecified (4) Dementia, vascular, with depression (5) Dementia, vascular, with delusions (6) Major neurocognitive disorder NIK LOYA MD Jun 01, 2021 22:02
--- NOTE | 2021-06-01 22:29 | NUR ---
Patient is in his room on assumption of care, awake in bed. Disorganized. Compliant with assessments and medications taken whole. Refusing to take a shower this evening. This nurse and a DENTAL SERVICES DIRECTOR informed him he only had the choice of taking a shower before bed or early in the morning. He repeated that he would take a shower in the morning. He was informed that it would be around 0400, and he said that was fine with him. No inappropriate comments during this shift. No agitation. Denies pain or discomfort. He appears to be sleeping comfortably at present time. Will continue to monitor.
[2021-06-02 00:44] LABS: BACTERIA,URINE 0 /HPF (0-FEW); BILIRUBIN,URINE NEG (NEG); CLARITY,URINE CLEAR; COLOR,URINE YELLOW; GLUCOSE,URINE NEG (NEG); NITRITE,URINE NEG (NEG); RBC,URINE 0 /HPF (0-2); SQUAMOUS EPITHELIAL CELL,UR OCC /LPF; UROBILINOGEN,URINE 0.2 mg/dL (0.2 mg/dL); WBC,URINE 0 /HPF (0-4)
[2021-06-02 05:31] VITALS: BP 131/97
[2021-06-02] MEDS: IPRATROPIUM/ALBUTEROL 20/100mcg/INH INHALER. INH SCH ×4 (08:00→20:00)
[2021-06-02] MEDS: CYANOCOBALAMIN (VITAMIN B-12) 1,000 MCG TABLET. PO SCH (08:48)
[2021-06-02] MEDS: TAMSULOSIN 0.4 MG CAP.ER.24H. PO SCH (08:48)
[2021-06-02] MEDS: GABAPENTIN 300 MG CAPSULE. PO SCH ×2 (08:48→20:06)
[2021-06-02] MEDS: metFORMIN XR 500 MG TAB.ER.24H PO SCH (08:48)
[2021-06-02] MEDS: CARVEDILOL 3.125 MG TABLET PO SCH ×2 (08:49→17:24)
[2021-06-02] MEDS: PHENYTOIN SODIUM EXTENDED 100 MG CAPSULE PO SCH (08:49)
[2021-06-02] MEDS: ASPIRIN ENTERIC COATED 81 MG TABLET.DR. PO SCH (08:49)
[2021-06-02] MEDS: DULoxetine HCL 30 MG CAPSULE.DR PO SCH (08:49)
[2021-06-02] MEDS: ATORVASTATIN CALCIUM 10 MG TABLET. PO SCH (08:49)
--- NOTE | 2021-06-02 09:06 | PDOC ---
Exam Note: Leo Note: This note is a late entry for 06/01/2021 covers elements not covered in my initial note. Subjective: The patient was seen individually in the evening of 06/01/2021 with Alejandra KOWALSKI, discussed and reviewed the chart. The patient slept 5-1/4 hours previous night. He had a fall this morning. He states one of the wheels in his wheelchair was locked and the wheelchair twisted as he tried to get up. X-rays and work up for head injury completed by Dr. Niño is negative. Review of Systems: Ambulation impaired in wheelchair. No CV, , pulmonary, eye, ENT system symptoms on review. Mental Status Exam: The patient is oriented to himself and situation. Speech coherent has some latency. Abstraction fair. Computation impaired. Language function intact. Mood and affect withdrawn. No suicidal or homicidal ideation. Laboratory Data: Reviewed. 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 Anxiety disorder unspecified. Impulse control disorder unspecified. Plan: Continue current psychotropics. Defer seizure management to Dr. Newman. Adjust further as clinically indicated. Maintain Cymbalta 30 mg a day. Assessment: Vital Signs/I&O: Vital Signs Date Time Temp Pulse Resp B/P (MAP) Pulse Ox O2 Delivery O2 Flow Rate FiO2 06/02/21 08:49 82 131/97 06/02/21 05:31 96.9 16 94 05/31/21 06:17 Room Air I & O 06/01/21 06/01/21 06/02/21 15:00 23:00 07:00 Intake Total 720 ml 680 ml Balance 720 ml 680 ml Labs: Laboratory Tests Test 06/02/21 00:20 06/02/21 07:48 Urine Collection Type Unknown Urine Color Yellow Urine Clarity Clear Urine pH 6.0 Urine Specific [place] 1.020 Urine Protein Neg (NEG-TRACE) Urine Glucose (UA) Neg mg/dL (NEG) Urine Ketones (Stick) Neg mg/dL (NEG) Urine Blood Neg (NEG) Urine Nitrite Neg (NEG) Urine Bilirubin Neg (NEG) Urine Urobilinogen Dipstick 0.2 mg/dL (0.2 mg/dL) Urine Leukocyte Esterase Neg (NEG) Urine RBC 0 /HPF (0-2) Urine WBC 0 /HPF (0-4) Urine Squamous Epithelial Cells Occ /LPF Urine Bacteria 0 /HPF (0-FEW) Glucose (Fingerstick) 116 mg/dL (70-99) H Current Medications: Meds: Laboratory Tests Test 06/02/21 00:20 06/02/21 07:48 Urine Collection Type Unknown Urine Color Yellow Urine Clarity Clear Urine pH 6.0 Urine Specific [place] 1.020 Urine Protein Neg Urine Glucose (UA) Neg mg/dL Urine Ketones (Stick) Neg mg/dL Urine Blood Neg Urine Nitrite Neg Urine Bilirubin Neg Urine Urobilinogen Dipstick 0.2 mg/dL Urine Leukocyte Esterase Neg Urine RBC 0 /HPF Urine WBC 0 /HPF Urine Squamous Epithelial Cells Occ /LPF Urine Bacteria 0 /HPF Glucose (Fingerstick) 116 mg/dL Current Medications Medications (Trade) Dose Ordered Sig/Aparna Route PRN Reason Start Time Stop Time Status Last Admin Dose Admin Acetaminophen (Tylenol) 650 mg PRN Q6HRS PRN PO MILD PAIN / TEMP > 100.3'F 05/17/21 14:45 05/31/21 04:00 Multi-Ingredient Ointment (Analgesic [place]) 1 inna PRN QID PRN TP MUSCLE PAIN 05/17/21 14:45 Al Hydroxide/Mg Hydroxide (Mylanta Plus Xs) 15 ml PRN AFTMEALHC PRN PO DYSPEPSIA 05/17/21 14:45 Magnesium Hydroxide (Milk Of Magnesia) 2,400 mg PRN QHS PRN PO CONSTIPATION 05/17/21 14:45 Aspirin (Aspirin Enteric Coated) 81 mg DAILY PO 05/18/21 09:00 06/02/21 08:49 Budesonide (Pulmicort) 0.5 mg RTBID IH 05/17/21 20:00 05/18/21 13:26 DC Carvedilol (Coreg) 3.125 mg BIDWMEALS PO 05/17/21 17:00 06/02/21 08:49 Lisinopril (Prinivil) 5 mg DAILY PO 05/18/21 09:00 05/25/21 09:35 DC 05/24/21 08:39 Metformin HCl (Glucophage Xr) 500 mg DAILYWBKFT PO 05/18/21 08:00 06/02/21 08:48 Phenytoin Sodium (Dilantin) 100 mg BID PO 05/17/21 21:00 05/18/21 21:00 DC 05/18/21 20:13 Tamsulosin HCl (Flomax) 0.4 mg DAILY PO 05/18/21 09:00 06/02/21 08:48 Cyanocobalamin (Vitamin B-12) 1,000 mcg DAILY PO 05/18/21 09:00 06/02/21 08:48 Non-Formulary Medication (Ipratropium/ Albuterol Sulfate (Combivent Respimat Inhal)) 1 puff QID INH 05/17/21 17:00 05/17/21 15:02 DC Atorvastatin Calcium (Lipitor) 10 mg DAILY PO 05/18/21 09:00 06/02/21 08:49 Albuterol/ Ipratropium (Duoneb) 3 ml RTQID NEB 05/17/21 16:00 05/17/21 20:45 DC Albuterol/ Ipratropium (Combivent Respimat 20-100 Mcg) 1 puff RTQID INH 05/17/21 20:00 06/02/21 08:00 Gabapentin (Neurontin) 300 mg BID PO 05/17/21 21:00 06/02/21 08:48 Fluticasone Furoate (ARNUITY 100mcg ELLIPTA) 1 puff DAILY INH 05/18/21 14:00 05/21/21 08:27 DC 05/20/21 08:41 Phenytoin Sodium (Dilantin) 300 mg DAILY08 PO 05/19/21 08:00 06/02/21 08:49 Duloxetine HCl (Cymbalta) 30 mg DAILY PO 05/19/21 09:00 05/25/21 15:56 DC 05/25/21 12:21 Mirtazapine (Remeron) 7.5 mg QHS PO 05/19/21 21:00 06/01/21 20:24 Trazodone HCl (Desyrel) 50 mg PRN QHS PRN PO sleep 05/19/21 12:30 Divalproex Sodium (Depakote Sprinkles) 125 mg 0900,1300,1700 PO 05/25/21 09:00 05/25/21 16:36 DC 05/25/21 12:20 Duloxetine HCl (Cymbalta) 30 mg DAILY PO 05/26/21 09:00 05/25/21 16:36 DC Duloxetine HCl (Cymbalta) 20 mg DAILY PO 05/26/21 09:00 05/25/21 16:36 DC Duloxetine HCl (Cymbalta) 30 mg DAILY PO 05/26/21 09:00 06/02/21 08:49 I have reviewed the current psychotropics carefully including drug interactions. Risk benefit ratio favors no change other than as noted in my dictated progress note. Diagnosis: Problems: (1) Major depressive disorder (2) Impulse control disorder, unspecified (3) Anxiety disorder, unspecified (4) Dementia, vascular, with depression (5) Dementia, vascular, with delusions (6) Major neurocognitive disorder NIK LOYA MD Jun 02, 2021 09:06
[2021-06-02 16:15] VITALS: BP 146/70
--- NOTE | 2021-06-02 16:24 | NUR ---
Nursing note: Patient was in the dinning room for medications and assessments. He is pleasantly confused. Disorganized. Compliant with assessments and medications taken whole. No inappropriate comments during this shift. No agitation. Denies pain or discomfort. Patient isolative to his room. He is currently in his room in bed. Will continue to monitor.
[2021-06-02] MEDS: MIRTAZAPINE 7.5 MG TABLET. PO SCH (20:06)
--- NOTE | 2021-06-02 22:02 | PDOC ---
Exam Note: Leo Note: Please also refer to the separate dictated note~for this date of service dictated separately.~Patient seen individually. Discussed the patient with Nursing staff reviewed the chart.~Reviewed interim history and current functioning. Reviewed vital signs,~Labs/ Radiology~and current medications noted below. Continue current treatment with the changes noted in the dictated addendum note Assessment: Vital Signs/I&O: Vital Signs Date Time Temp Pulse Resp B/P (MAP) Pulse Ox O2 Delivery O2 Flow Rate FiO2 06/02/21 17:24 73 146/70 06/02/21 16:15 98.0 18 95 05/31/21 06:17 Room Air I & O 06/01/21 06/01/21 06/02/21 15:00 23:00 07:00 Intake Total 720 ml 680 ml Balance 720 ml 680 ml Labs: Laboratory Tests Test 06/02/21 00:20 06/02/21 07:48 Urine Collection Type Unknown Urine Color Yellow Urine Clarity Clear Urine pH 6.0 Urine Specific [place] 1.020 Urine Protein Neg (NEG-TRACE) Urine Glucose (UA) Neg mg/dL (NEG) Urine Ketones (Stick) Neg mg/dL (NEG) Urine Blood Neg (NEG) Urine Nitrite Neg (NEG) Urine Bilirubin Neg (NEG) Urine Urobilinogen Dipstick 0.2 mg/dL (0.2 mg/dL) Urine Leukocyte Esterase Neg (NEG) Urine RBC 0 /HPF (0-2) Urine WBC 0 /HPF (0-4) Urine Squamous Epithelial Cells Occ /LPF Urine Bacteria 0 /HPF (0-FEW) Glucose (Fingerstick) 116 mg/dL (70-99) H Current Medications: Meds: Laboratory Tests Test 06/02/21 00:20 06/02/21 07:48 Urine Collection Type Unknown Urine Color Yellow Urine Clarity Clear Urine pH 6.0 Urine Specific [place] 1.020 Urine Protein Neg Urine Glucose (UA) Neg mg/dL Urine Ketones (Stick) Neg mg/dL Urine Blood Neg Urine Nitrite Neg Urine Bilirubin Neg Urine Urobilinogen Dipstick 0.2 mg/dL Urine Leukocyte Esterase Neg Urine RBC 0 /HPF Urine WBC 0 /HPF Urine Squamous Epithelial Cells Occ /LPF Urine Bacteria 0 /HPF Glucose (Fingerstick) 116 mg/dL Current Medications Medications (Trade) Dose Ordered Sig/Aparna Route PRN Reason Start Time Stop Time Status Last Admin Dose Admin Acetaminophen (Tylenol) 650 mg PRN Q6HRS PRN PO MILD PAIN / TEMP > 100.3'F 05/17/21 14:45 05/31/21 04:00 Multi-Ingredient Ointment (Analgesic [place]) 1 inna PRN QID PRN TP MUSCLE PAIN 05/17/21 14:45 Al Hydroxide/Mg Hydroxide (Mylanta Plus Xs) 15 ml PRN AFTMEALHC PRN PO DYSPEPSIA 05/17/21 14:45 Magnesium Hydroxide (Milk Of Magnesia) 2,400 mg PRN QHS PRN PO CONSTIPATION 05/17/21 14:45 Aspirin (Aspirin Enteric Coated) 81 mg DAILY PO 05/18/21 09:00 06/02/21 08:49 Budesonide (Pulmicort) 0.5 mg RTBID IH 05/17/21 20:00 05/18/21 13:26 DC Carvedilol (Coreg) 3.125 mg BIDWMEALS PO 05/17/21 17:00 06/02/21 17:24 Lisinopril (Prinivil) 5 mg DAILY PO 05/18/21 09:00 05/25/21 09:35 DC 05/24/21 08:39 Metformin HCl (Glucophage Xr) 500 mg DAILYWBKFT PO 05/18/21 08:00 06/02/21 08:48 Phenytoin Sodium (Dilantin) 100 mg BID PO 05/17/21 21:00 05/18/21 21:00 DC 05/18/21 20:13 Tamsulosin HCl (Flomax) 0.4 mg DAILY PO 05/18/21 09:00 06/02/21 08:48 Cyanocobalamin (Vitamin B-12) 1,000 mcg DAILY PO 05/18/21 09:00 06/02/21 08:48 Non-Formulary Medication (Ipratropium/ Albuterol Sulfate (Combivent Respimat Inhal)) 1 puff QID INH 05/17/21 17:00 05/17/21 15:02 DC Atorvastatin Calcium (Lipitor) 10 mg DAILY PO 05/18/21 09:00 06/02/21 08:49 Albuterol/ Ipratropium (Duoneb) 3 ml RTQID NEB 05/17/21 16:00 05/17/21 20:45 DC Albuterol/ Ipratropium (Combivent Respimat 20-100 Mcg) 1 puff RTQID INH 05/17/21 20:00 06/02/21 20:00 Gabapentin (Neurontin) 300 mg BID PO 05/17/21 21:00 06/02/21 20:06 Fluticasone Furoate (ARNUITY 100mcg ELLIPTA) 1 puff DAILY INH 05/18/21 14:00 05/21/21 08:27 DC 05/20/21 08:41 Phenytoin Sodium (Dilantin) 300 mg DAILY08 PO 05/19/21 08:00 06/02/21 08:49 Duloxetine HCl (Cymbalta) 30 mg DAILY PO 05/19/21 09:00 05/25/21 15:56 DC 05/25/21 12:21 Mirtazapine (Remeron) 7.5 mg QHS PO 05/19/21 21:00 06/02/21 20:06 Trazodone HCl (Desyrel) 50 mg PRN QHS PRN PO sleep 05/19/21 12:30 Divalproex Sodium (Depakote Sprinkles) 125 mg 0900,1300,1700 PO 05/25/21 09:00 05/25/21 16:36 DC 05/25/21 12:20 Duloxetine HCl (Cymbalta) 30 mg DAILY PO 05/26/21 09:00 05/25/21 16:36 DC Duloxetine HCl (Cymbalta) 20 mg DAILY PO 05/26/21 09:00 05/25/21 16:36 DC Duloxetine HCl (Cymbalta) 30 mg DAILY PO 05/26/21 09:00 06/02/21 08:49 I have reviewed the current psychotropics carefully including drug interactions. Risk benefit ratio favors no change other than as noted in my dictated progress note. Diagnosis: Problems: (1) Major depressive disorder (2) Impulse control disorder, unspecified (3) Anxiety disorder, unspecified (4) Dementia, vascular, with depression (5) Dementia, vascular, with delusions (6) Major neurocognitive disorder NIK LOYA MD Jun 02, 2021 22:01
[2021-06-03 05:51] VITALS: BP 151/81
--- NOTE | 2021-06-03 06:32 | PDOC ---
Exam Note: Leo Note: This note is a late entry for 06/02/2021 covers elements not covered in my initial note. Subjective: The patient was seen individually in the evening of 06/02/2021 with Alejandra KOWALSKI, discussed and reviewed the chart. The patient slept 5-3/4 hours previous night. He has been isolating in his room. No aggression. Review of Systems: Ambulation impaired in wheelchair. No CV, , pulmonary, eye, ENT system symptoms on review. Mental Status Exam: The patient is oriented to himself and situation. He was pleased that his wheelchair was repaired. Speech coherent, low in rate and rhythm, low in volume. Abstraction fair. Computation impaired. Language function intact. Mood and affect withdrawn. No suicidal or homicidal ideation. Laboratory Data: Reviewed. 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 Anxiety disorder unspecified. Impulse control disorder unspecified. Plan: Continue current psychotropics. Assessment: Vital Signs/I&O: Vital Signs Date Time Temp Pulse Resp B/P (MAP) Pulse Ox O2 Delivery O2 Flow Rate FiO2 06/03/21 05:51 97.7 89 20 151/81 (104) 91 Room Air I & O 06/02/21 06/02/21 06/03/21 15:00 23:00 07:00 Intake Total 960 ml 540 ml Balance 960 ml 540 ml Labs: Laboratory Tests Test 06/02/21 07:48 Glucose (Fingerstick) 116 mg/dL (70-99) H Current Medications: Meds: Laboratory Tests Test 06/02/21 07:48 Glucose (Fingerstick) 116 mg/dL Current Medications Medications (Trade) Dose Ordered Sig/Aparna Route PRN Reason Start Time Stop Time Status Last Admin Dose Admin Acetaminophen (Tylenol) 650 mg PRN Q6HRS PRN PO MILD PAIN / TEMP > 100.3'F 05/17/21 14:45 05/31/21 04:00 Multi-Ingredient Ointment (Analgesic [place]) 1 inna PRN QID PRN TP MUSCLE PAIN 05/17/21 14:45 Al Hydroxide/Mg Hydroxide (Mylanta Plus Xs) 15 ml PRN AFTMEALHC PRN PO DYSPEPSIA 05/17/21 14:45 Magnesium Hydroxide (Milk Of Magnesia) 2,400 mg PRN QHS PRN PO CONSTIPATION 05/17/21 14:45 Aspirin (Aspirin Enteric Coated) 81 mg DAILY PO 05/18/21 09:00 06/02/21 08:49 Budesonide (Pulmicort) 0.5 mg RTBID IH 05/17/21 20:00 05/18/21 13:26 DC Carvedilol (Coreg) 3.125 mg BIDWMEALS PO 05/17/21 17:00 06/02/21 17:24 Lisinopril (Prinivil) 5 mg DAILY PO 05/18/21 09:00 05/25/21 09:35 DC 05/24/21 08:39 Metformin HCl (Glucophage Xr) 500 mg DAILYWBKFT PO 05/18/21 08:00 06/02/21 08:48 Phenytoin Sodium (Dilantin) 100 mg BID PO 05/17/21 21:00 05/18/21 21:00 DC 05/18/21 20:13 Tamsulosin HCl (Flomax) 0.4 mg DAILY PO 05/18/21 09:00 06/02/21 08:48 Cyanocobalamin (Vitamin B-12) 1,000 mcg DAILY PO 05/18/21 09:00 06/02/21 08:48 Non-Formulary Medication (Ipratropium/ Albuterol Sulfate (Combivent Respimat Inhal)) 1 puff QID INH 05/17/21 17:00 05/17/21 15:02 DC Atorvastatin Calcium (Lipitor) 10 mg DAILY PO 05/18/21 09:00 06/02/21 08:49 Albuterol/ Ipratropium (Duoneb) 3 ml RTQID NEB 05/17/21 16:00 05/17/21 20:45 DC Albuterol/ Ipratropium (Combivent Respimat 20-100 Mcg) 1 puff RTQID INH 05/17/21 20:00 06/02/21 20:00 Gabapentin (Neurontin) 300 mg BID PO 05/17/21 21:00 06/02/21 20:06 Fluticasone Furoate (ARNUITY 100mcg ELLIPTA) 1 puff DAILY INH 05/18/21 14:00 05/21/21 08:27 DC 05/20/21 08:41 Phenytoin Sodium (Dilantin) 300 mg DAILY08 PO 05/19/21 08:00 06/02/21 08:49 Duloxetine HCl (Cymbalta) 30 mg DAILY PO 05/19/21 09:00 05/25/21 15:56 DC 05/25/21 12:21 Mirtazapine (Remeron) 7.5 mg QHS PO 05/19/21 21:00 06/02/21 20:06 Trazodone HCl (Desyrel) 50 mg PRN QHS PRN PO sleep 05/19/21 12:30 Divalproex Sodium (Depakote Sprinkles) 125 mg 0900,1300,1700 PO 05/25/21 09:00 05/25/21 16:36 DC 05/25/21 12:20 Duloxetine HCl (Cymbalta) 30 mg DAILY PO 05/26/21 09:00 05/25/21 16:36 DC Duloxetine HCl (Cymbalta) 20 mg DAILY PO 05/26/21 09:00 05/25/21 16:36 DC Duloxetine HCl (Cymbalta) 30 mg DAILY PO 05/26/21 09:00 06/02/21 08:49 I have reviewed the current psychotropics carefully including drug interactions. Risk benefit ratio favors no change other than as noted in my dictated progress note. Diagnosis: Problems: (1) Major depressive disorder (2) Impulse control disorder, unspecified (3) Anxiety disorder, unspecified (4) Dementia, vascular, with depression (5) Dementia, vascular, with delusions (6) Major neurocognitive disorder NIK LOYA MD Jun 03, 2021 06:32
[2021-06-03] MEDS: IPRATROPIUM/ALBUTEROL 20/100mcg/INH INHALER. INH SCH ×4 (08:00→20:34)
[2021-06-03] MEDS: ASPIRIN ENTERIC COATED 81 MG TABLET.DR. PO SCH (08:09)
[2021-06-03] MEDS: CARVEDILOL 3.125 MG TABLET PO SCH ×2 (08:09→17:00)
[2021-06-03] MEDS: metFORMIN XR 500 MG TAB.ER.24H PO SCH (08:10)
[2021-06-03] MEDS: GABAPENTIN 300 MG CAPSULE. PO SCH ×2 (08:10→20:34)
[2021-06-03] MEDS: DULoxetine HCL 30 MG CAPSULE.DR PO SCH (08:10)
[2021-06-03] MEDS: TAMSULOSIN 0.4 MG CAP.ER.24H. PO SCH (08:10)
[2021-06-03] MEDS: ATORVASTATIN CALCIUM 10 MG TABLET. PO SCH (08:10)
[2021-06-03] MEDS: CYANOCOBALAMIN (VITAMIN B-12) 1,000 MCG TABLET. PO SCH (08:10)
[2021-06-03] MEDS: PHENYTOIN SODIUM EXTENDED 100 MG CAPSULE PO SCH (08:10)
--- NOTE | 2021-06-03 09:56 | NUR ---
Pt has been present and visible on the unit. He is appropriate with his interactions with others. He is compliant with medications whole. He is able to make his needs known and has voiced no concerns at this time. Absent of SI/HI/VH/AH/delusions, he denies pain when asked. He remains in a w/c. Plan of care continues, will pass to next shift.
--- NOTE | 2021-06-03 12:25 | NUR ---
Treatment team note: Pt is eating 100% of meals and sleeping on average 6 hours per night. Pt had a fall on Wednesday in which tests were completed and no issues were noted. Pt tends to isolate to his room mostly but does have some interaction with staff and peers during meals. Pt has attended four groups within the last week with minimal participation and was noted to have an episode of sexual inappropriate behavior over the weekend in asking a nurse if he can play with her breast. SW will aid in finding placement with the family and getting pt placed in [facility].
--- NOTE | 2021-06-03 13:41 | NUR ---
WEEKLY ACTIVITY THERAPY NOTE Date of Admission: 05/17/21 Date of AT Assessment: 05/20 Precipitating behaviors that initiated intake and admission: Patient was reported to believe that his money was being stolen, his dog was being murdered, trying to leave the facility, disoriented, being tearful and crying frequently, and having sexually inappropriate conversations with other residents. Goal aimed: increase socialization and engagement Initial Goal: Pt will participate in at least three individual or group Activity Therapy sessions per week. Weekly progress towards goal: achieved, / Group participation level: 2 min, 2 full Weekly highlights: sang during music group Wednesday, music bingo Wednesday, 01 of June snack Behaviors observed: over-shared information about ex- on Wednesday (saying she didn't wear underwear and would flip up her skirt), pleasant Plan: repeat goal Beneficial adaptations: music, socialization
[2021-06-03 15:52] VITALS: BP 148/78
--- NOTE | 2021-06-03 15:53 | NUR ---
This nurse entered pt's room and observed pt attempting to self transfer into w/c. This nurse provided assistance and he yelled, "I had a seizure and no one did anything!" When asked when he had the seizure he stated it occurred while he was eating lunch. He stated, "I had a seizure, I couldn't talk or tell anyone and no one could help me." This nurse spoke with DEMETRIUS Flores, who was present in the dining room during lunch. She states she observed pt eat lunch with no observable difficulties and she then put him into bed after lunch. DEMETRIUS reports no distress from patient during her interaction with him after lunch. Another patient, who is A&Ox4 and usually sits with Richie during lunch, was asked how lunch went for the two of them. He replied, "Oh lunch was fine. Me and Richie talked a little." Addendum: 06/03/21 at 1621 by CÉSAR ADRIAN RN While this nurse was speaking to Mabel Flores, DEMETRIUS Falk walked by pt (as he was propelling self around unit in w/c) who told her he "just had a seizure a few minutes ago." Approx 10 minutes after that interaction with DEMETRIUS Falk, DEX Donovan walked by and pt (who was still observed to be propelling self around in w/c) told Zion he "just had a seizure a few minutes ago." Immediately after this interaction with Zion, pt said to ARI Tineo "I just had a seizure in my bedroom." During all these interactions pt was observable in the hallway on the security camera. This nurse approached pt with PRN Tylenol 650 mg PO at his request. When approached pt said "I just had a seizure!" When asked when exactly pt stated, "A few minutes ago." When I pointed at the video camera and said I was able to see him the entire time he has been in the hallway pt replied "I had a seizure this morning." When I mentioned that he originally told me he had a seizure during lunch and not early in the morning pt took his PRN Tylenol but continued to claim he had a seizure sometime during the day.
[2021-06-03] MEDS: ACETAMINOPHEN 325 MG TABLET PO PRN (16:25)
[2021-06-03] MEDS: MIRTAZAPINE 7.5 MG TABLET. PO SCH (20:34)
--- NOTE | 2021-06-03 22:06 | PDOC ---
Exam Note: Leo Note: Please also refer to the separate dictated note~for this date of service dictated separately.~Patient seen individually. Discussed the patient with Nursing staff reviewed the chart.~Reviewed interim history and current functioning. Reviewed vital signs,~Labs/ Radiology~and current medications noted below. Continue current treatment with the changes noted in the dictated addendum note Assessment: Vital Signs/I&O: Vital Signs Date Time Temp Pulse Resp B/P (MAP) Pulse Ox O2 Delivery O2 Flow Rate FiO2 06/03/21 17:00 90 148/78 06/03/21 15:52 97.2 20 96 Room Air I & O 06/02/21 06/02/21 06/03/21 15:00 23:00 07:00 Intake Total 960 ml 540 ml Balance 960 ml 540 ml Labs: Laboratory Tests Test 06/03/21 07:48 Glucose (Fingerstick) 99 mg/dL (70-99) Current Medications: Meds: Laboratory Tests Test 06/03/21 07:48 Glucose (Fingerstick) 99 mg/dL Current Medications Medications (Trade) Dose Ordered Sig/Aparna Route PRN Reason Start Time Stop Time Status Last Admin Dose Admin Acetaminophen (Tylenol) 650 mg PRN Q6HRS PRN PO MILD PAIN / TEMP > 100.3'F 05/17/21 14:45 06/03/21 16:25 Multi-Ingredient Ointment (Analgesic [place]) 1 inna PRN QID PRN TP MUSCLE PAIN 05/17/21 14:45 Al Hydroxide/Mg Hydroxide (Mylanta Plus Xs) 15 ml PRN AFTMEALHC PRN PO DYSPEPSIA 05/17/21 14:45 Magnesium Hydroxide (Milk Of Magnesia) 2,400 mg PRN QHS PRN PO CONSTIPATION 05/17/21 14:45 Aspirin (Aspirin Enteric Coated) 81 mg DAILY PO 05/18/21 09:00 06/03/21 08:09 Budesonide (Pulmicort) 0.5 mg RTBID IH 05/17/21 20:00 05/18/21 13:26 DC Carvedilol (Coreg) 3.125 mg BIDWMEALS PO 05/17/21 17:00 06/03/21 17:00 Lisinopril (Prinivil) 5 mg DAILY PO 05/18/21 09:00 05/25/21 09:35 DC 05/24/21 08:39 Metformin HCl (Glucophage Xr) 500 mg DAILYWBKFT PO 05/18/21 08:00 06/03/21 08:10 Phenytoin Sodium (Dilantin) 100 mg BID PO 05/17/21 21:00 05/18/21 21:00 DC 05/18/21 20:13 Tamsulosin HCl (Flomax) 0.4 mg DAILY PO 05/18/21 09:00 06/03/21 08:10 Cyanocobalamin (Vitamin B-12) 1,000 mcg DAILY PO 05/18/21 09:00 06/03/21 08:10 Non-Formulary Medication (Ipratropium/ Albuterol Sulfate (Combivent Respimat Inhal)) 1 puff QID INH 05/17/21 17:00 05/17/21 15:02 DC Atorvastatin Calcium (Lipitor) 10 mg DAILY PO 05/18/21 09:00 06/03/21 08:10 Albuterol/ Ipratropium (Duoneb) 3 ml RTQID NEB 05/17/21 16:00 05/17/21 20:45 DC Albuterol/ Ipratropium (Combivent Respimat 20-100 Mcg) 1 puff RTQID INH 05/17/21 20:00 06/03/21 20:34 Gabapentin (Neurontin) 300 mg BID PO 05/17/21 21:00 06/03/21 20:34 Fluticasone Furoate (ARNUITY 100mcg ELLIPTA) 1 puff DAILY INH 05/18/21 14:00 05/21/21 08:27 DC 05/20/21 08:41 Phenytoin Sodium (Dilantin) 300 mg DAILY08 PO 05/19/21 08:00 06/03/21 08:10 Duloxetine HCl (Cymbalta) 30 mg DAILY PO 05/19/21 09:00 05/25/21 15:56 DC 05/25/21 12:21 Mirtazapine (Remeron) 7.5 mg QHS PO 05/19/21 21:00 06/03/21 20:34 Trazodone HCl (Desyrel) 50 mg PRN QHS PRN PO sleep 05/19/21 12:30 Divalproex Sodium (Depakote Sprinkles) 125 mg 0900,1300,1700 PO 05/25/21 09:00 05/25/21 16:36 DC 05/25/21 12:20 Duloxetine HCl (Cymbalta) 30 mg DAILY PO 05/26/21 09:00 05/25/21 16:36 DC Duloxetine HCl (Cymbalta) 20 mg DAILY PO 05/26/21 09:00 05/25/21 16:36 DC Duloxetine HCl (Cymbalta) 30 mg DAILY PO 05/26/21 09:00 06/03/21 13:28 DC 06/03/21 08:10 Duloxetine HCl (Cymbalta) 30 mg DAILY PO 06/04/21 09:00 Duloxetine HCl (Cymbalta) 20 mg DAILY PO 06/04/21 09:00 I have reviewed the current psychotropics carefully including drug interactions. Risk benefit ratio favors no change other than as noted in my dictated progress note. Diagnosis: Problems: (1) Major depressive disorder (2) Impulse control disorder, unspecified (3) Anxiety disorder, unspecified (4) Dementia, vascular, with depression (5) Dementia, vascular, with delusions (6) Major neurocognitive disorder NIK LOYA MD Jun 03, 2021 22:06
--- NOTE | 2021-06-03 23:25 | NUR ---
Pt located in his room all evening. Compliant with whole medications. Somewhat irritable with staff. No mention of seizures today.
[2021-06-04 05:56] VITALS: BP 141/88
[2021-06-04] MEDS: IPRATROPIUM/ALBUTEROL 20/100mcg/INH INHALER. INH SCH ×4 (08:00→21:26)
[2021-06-04] MEDS: DULoxetine HCL 20 MG CAPSULE.DR PO SCH (08:43)
[2021-06-04] MEDS: PHENYTOIN SODIUM EXTENDED 100 MG CAPSULE PO SCH (08:44)
[2021-06-04] MEDS: TAMSULOSIN 0.4 MG CAP.ER.24H. PO SCH (08:44)
[2021-06-04] MEDS: DULoxetine HCL 30 MG CAPSULE.DR PO SCH (08:44)
[2021-06-04] MEDS: ATORVASTATIN CALCIUM 10 MG TABLET. PO SCH (08:44)
[2021-06-04] MEDS: CYANOCOBALAMIN (VITAMIN B-12) 1,000 MCG TABLET. PO SCH (08:45)
[2021-06-04] MEDS: metFORMIN XR 500 MG TAB.ER.24H PO SCH (08:45)
[2021-06-04] MEDS: GABAPENTIN 300 MG CAPSULE. PO SCH ×2 (08:45→21:26)
[2021-06-04] MEDS: ASPIRIN ENTERIC COATED 81 MG TABLET.DR. PO SCH (08:45)
[2021-06-04] MEDS: CARVEDILOL 3.125 MG TABLET PO SCH ×2 (08:45→17:13)
--- NOTE | 2021-06-04 08:55 | PDOC ---
Exam Note: Leo Note: This note is a late entry for 06/03/2021 covers elements not covered in my initial note. Subjective: The patient was seen individually in the morning of 06/03/2021 for a treatment team meeting with Rivka Pearson (oncology social work), Jennifer, activity therapy and Maryjane discussed and reviewed the chart. The patient slept 6-1/4 hours previous night. He had a fall on Wednesday. No injuries noted. He is compliant with medications, isolative. He has attended 4 groups in the past 1 week. This afternoon he woke up from a nap and was insisting he had a seizure episode. On checking with cameras and his tablemates at lunch and nursing staff, none of this was confirmed. We will await Dr. Allen recommendations on his Dilantin and EEG. Review of Systems: Ambulation impaired in wheelchair. No CV, , pulmonary, e ye, ENT system symptoms on review. Mental Status Exam: The patient is oriented to himself and situation. I met with him in his room. He was complaining about staff, not responding to his request as quickly as he wants him to. Speech coherent, low in rate and rhythm, low in volume. Abstraction fair. Computation impaired. Language function intact. Mood and affect withdrawn. No suicidal or homicidal ideation. No sexually inappropriate behaviors noted. Laboratory Data: Reviewed. 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 Anxiety disorder unspecified. Impulse control disorder unspecified. Plan: Continue current psychotropics. We will defer to Dr. Newman to adjust Dilantin to therapeutic level depending on the EEG. Assessment: Vital Signs/I&O: Vital Signs Date Time Temp Pulse Resp B/P (MAP) Pulse Ox O2 Delivery O2 Flow Rate FiO2 06/04/21 08:45 82 141/88 06/04/21 05:56 97.5 22 93 Room Air I & O 06/03/21 06/03/21 06/04/21 15:00 23:00 07:00 Intake Total 840 ml 240 ml 300 ml Balance 840 ml 240 ml 300 ml Labs: Laboratory Tests Test 06/04/21 07:34 Glucose (Fingerstick) 113 mg/dL (70-99) H Current Medications: Meds: Laboratory Tests Test 06/04/21 07:34 Glucose (Fingerstick) 113 mg/dL Current Medications Medications (Trade) Dose Ordered Sig/Aparna Route PRN Reason Start Time Stop Time Status Last Admin Dose Admin Acetaminophen (Tylenol) 650 mg PRN Q6HRS PRN PO MILD PAIN / TEMP > 100.3'F 05/17/21 14:45 06/03/21 16:25 Multi-Ingredient Ointment (Analgesic [place]) 1 inna PRN QID PRN TP MUSCLE PAIN 05/17/21 14:45 Al Hydroxide/Mg Hydroxide (Mylanta Plus Xs) 15 ml PRN AFTMEALHC PRN PO DYSPEPSIA 05/17/21 14:45 Magnesium Hydroxide (Milk Of Magnesia) 2,400 mg PRN QHS PRN PO CONSTIPATION 05/17/21 14:45 Aspirin (Aspirin Enteric Coated) 81 mg DAILY PO 05/18/21 09:00 06/04/21 08:45 Budesonide (Pulmicort) 0.5 mg RTBID IH 05/17/21 20:00 05/18/21 13:26 DC Carvedilol (Coreg) 3.125 mg BIDWMEALS PO 05/17/21 17:00 06/04/21 08:45 Lisinopril (Prinivil) 5 mg DAILY PO 05/18/21 09:00 05/25/21 09:35 DC 05/24/21 08:39 Metformin HCl (Glucophage Xr) 500 mg DAILYWBKFT PO 05/18/21 08:00 06/04/21 08:45 Phenytoin Sodium (Dilantin) 100 mg BID PO 05/17/21 21:00 05/18/21 21:00 DC 05/18/21 20:13 Tamsulosin HCl (Flomax) 0.4 mg DAILY PO 05/18/21 09:00 06/04/21 08:44 Cyanocobalamin (Vitamin B-12) 1,000 mcg DAILY PO 05/18/21 09:00 06/04/21 08:45 Non-Formulary Medication (Ipratropium/ Albuterol Sulfate (Combivent Respimat Inhal)) 1 puff QID INH 05/17/21 17:00 05/17/21 15:02 DC Atorvastatin Calcium (Lipitor) 10 mg DAILY PO 05/18/21 09:00 06/04/21 08:44 Albuterol/ Ipratropium (Duoneb) 3 ml RTQID NEB 05/17/21 16:00 05/17/21 20:45 DC Albuterol/ Ipratropium (Combivent Respimat 20-100 Mcg) 1 puff RTQID INH 05/17/21 20:00 06/04/21 08:00 Gabapentin (Neurontin) 300 mg BID PO 05/17/21 21:00 06/04/21 08:45 Fluticasone Furoate (ARNUITY 100mcg ELLIPTA) 1 puff DAILY INH 05/18/21 14:00 05/21/21 08:27 DC 05/20/21 08:41 Phenytoin Sodium (Dilantin) 300 mg DAILY08 PO 05/19/21 08:00 06/04/21 08:44 Duloxetine HCl (Cymbalta) 30 mg DAILY PO 05/19/21 09:00 05/25/21 15:56 DC 05/25/21 12:21 Mirtazapine (Remeron) 7.5 mg QHS PO 05/19/21 21:00 06/03/21 20:34 Trazodone HCl (Desyrel) 50 mg PRN QHS PRN PO sleep 05/19/21 12:30 Divalproex Sodium (Depakote Sprinkles) 125 mg 0900,1300,1700 PO 05/25/21 09:00 05/25/21 16:36 DC 05/25/21 12:20 Duloxetine HCl (Cymbalta) 30 mg DAILY PO 05/26/21 09:00 05/25/21 16:36 DC Duloxetine HCl (Cymbalta) 20 mg DAILY PO 05/26/21 09:00 05/25/21 16:36 DC Duloxetine HCl (Cymbalta) 30 mg DAILY PO 05/26/21 09:00 06/03/21 13:28 DC 06/03/21 08:10 Duloxetine HCl (Cymbalta) 30 mg DAILY PO 06/04/21 09:00 06/04/21 08:44 Duloxetine HCl (Cymbalta) 20 mg DAILY PO 06/04/21 09:00 06/04/21 08:43 Current Medications Medications (Trade) Dose Ordered Sig/Aparna Route PRN Reason Start Time Stop Time Status Last Admin Dose Admin Duloxetine HCl (Cymbalta) 30 mg DAILY PO 06/04/21 09:00 06/04/21 08:44 Duloxetine HCl (Cymbalta) 20 mg DAILY PO 06/04/21 09:00 06/04/21 08:43 I have reviewed the current psychotropics carefully including drug interactions. Risk benefit ratio favors no change other than as noted in my dictated progress note. Diagnosis: Problems: (1) Major depressive disorder (2) Impulse control disorder, unspecified (3) Anxiety disorder, unspecified (4) Dementia, vascular, with depression (5) Dementia, vascular, with delusions (6) Major neurocognitive disorder NIK LOYA MD Jun 04, 2021 08:55
--- NOTE | 2021-06-04 10:05 | NUR ---
Pt A&O to name, only at this time. He is present and visible on the unit. Appetite appears adequate. No c/o seizure activity at this time. He is compliant with whole medications. No SI/HI/VH/AH/delusions/pain at this time. His interactions with others have been appropriate, no sexualized language verbalized at this time from him. He remains in a w/c and self propels. Plan of care continues, will pass to next shift.
--- NOTE | 2021-06-04 10:08 | NUR ---
Received call from [facility] concerning EEG. Neurology staff state they will come to [facility] 06/05/21 to do one.
--- NOTE | 2021-06-04 15:12 | NUR ---
ARI returned call to Gloria at [facility] to give her an update on pt. ARI informed Gloria that referrals were just sent off today and ARI would be able to hopefully find placement for pt for the middle of next week. Pt has not displayed the labile mood that he has at [facility]; however, he does have the continued confusion and reports having seizures despite staff not seeing them during the times he states. ARI will continue to keep [facility] updated as they do continue to house pt belongings and will be happy to work with family on getting them moved to his new facility.
[2021-06-04 16:22] VITALS: BP 156/68
[2021-06-04] MEDS: MIRTAZAPINE 7.5 MG TABLET. PO SCH (21:26)
--- NOTE | 2021-06-04 21:46 | PDOC ---
Exam Note: Leo Note: Please also refer to the separate dictated note~for this date of service dictated separately.~Patient seen individually. Discussed the patient with Nursing staff reviewed the chart.~Reviewed interim history and current functioning. Reviewed vital signs,~Labs/ Radiology~and current medications noted below. Continue current treatment with the changes noted in the dictated addendum note Assessment: Vital Signs/I&O: Vital Signs Date Time Temp Pulse Resp B/P (MAP) Pulse Ox O2 Delivery O2 Flow Rate FiO2 06/04/21 17:13 84 156/68 06/04/21 16:22 98.2 16 95 06/04/21 05:56 Room Air I & O 06/03/21 06/03/21 06/04/21 15:00 23:00 07:00 Intake Total 840 ml 240 ml 300 ml Balance 840 ml 240 ml 300 ml Labs: Laboratory Tests Test 06/04/21 07:34 Glucose (Fingerstick) 113 mg/dL (70-99) H Current Medications: Meds: Laboratory Tests Test 06/04/21 07:34 Glucose (Fingerstick) 113 mg/dL Current Medications Medications (Trade) Dose Ordered Sig/Aparna Route PRN Reason Start Time Stop Time Status Last Admin Dose Admin Acetaminophen (Tylenol) 650 mg PRN Q6HRS PRN PO MILD PAIN / TEMP > 100.3'F 05/17/21 14:45 06/03/21 16:25 Multi-Ingredient Ointment (Analgesic [place]) 1 inna PRN QID PRN TP MUSCLE PAIN 05/17/21 14:45 Al Hydroxide/Mg Hydroxide (Mylanta Plus Xs) 15 ml PRN AFTMEALHC PRN PO DYSPEPSIA 05/17/21 14:45 Magnesium Hydroxide (Milk Of Magnesia) 2,400 mg PRN QHS PRN PO CONSTIPATION 05/17/21 14:45 Aspirin (Aspirin Enteric Coated) 81 mg DAILY PO 05/18/21 09:00 06/04/21 08:45 Budesonide (Pulmicort) 0.5 mg RTBID IH 05/17/21 20:00 05/18/21 13:26 DC Carvedilol (Coreg) 3.125 mg BIDWMEALS PO 05/17/21 17:00 06/04/21 17:13 Lisinopril (Prinivil) 5 mg DAILY PO 05/18/21 09:00 05/25/21 09:35 DC 05/24/21 08:39 Metformin HCl (Glucophage Xr) 500 mg DAILYWBKFT PO 05/18/21 08:00 06/04/21 08:45 Phenytoin Sodium (Dilantin) 100 mg BID PO 05/17/21 21:00 05/18/21 21:00 DC 05/18/21 20:13 Tamsulosin HCl (Flomax) 0.4 mg DAILY PO 05/18/21 09:00 06/04/21 08:44 Cyanocobalamin (Vitamin B-12) 1,000 mcg DAILY PO 05/18/21 09:00 06/04/21 08:45 Non-Formulary Medication (Ipratropium/ Albuterol Sulfate (Combivent Respimat Inhal)) 1 puff QID INH 05/17/21 17:00 05/17/21 15:02 DC Atorvastatin Calcium (Lipitor) 10 mg DAILY PO 05/18/21 09:00 06/04/21 08:44 Albuterol/ Ipratropium (Duoneb) 3 ml RTQID NEB 05/17/21 16:00 05/17/21 20:45 DC Albuterol/ Ipratropium (Combivent Respimat 20-100 Mcg) 1 puff RTQID INH 05/17/21 20:00 06/04/21 21:26 Gabapentin (Neurontin) 300 mg BID PO 05/17/21 21:00 06/04/21 21:26 Fluticasone Furoate (ARNUITY 100mcg ELLIPTA) 1 puff DAILY INH 05/18/21 14:00 05/21/21 08:27 DC 05/20/21 08:41 Phenytoin Sodium (Dilantin) 300 mg DAILY08 PO 05/19/21 08:00 06/04/21 08:44 Duloxetine HCl (Cymbalta) 30 mg DAILY PO 05/19/21 09:00 05/25/21 15:56 DC 05/25/21 12:21 Mirtazapine (Remeron) 7.5 mg QHS PO 05/19/21 21:00 06/04/21 21:26 Trazodone HCl (Desyrel) 50 mg PRN QHS PRN PO sleep 05/19/21 12:30 Divalproex Sodium (Depakote Sprinkles) 125 mg 0900,1300,1700 PO 05/25/21 09:00 05/25/21 16:36 DC 05/25/21 12:20 Duloxetine HCl (Cymbalta) 30 mg DAILY PO 05/26/21 09:00 05/25/21 16:36 DC Duloxetine HCl (Cymbalta) 20 mg DAILY PO 05/26/21 09:00 05/25/21 16:36 DC Duloxetine HCl (Cymbalta) 30 mg DAILY PO 05/26/21 09:00 06/03/21 13:28 DC 06/03/21 08:10 Duloxetine HCl (Cymbalta) 30 mg DAILY PO 06/04/21 09:00 06/04/21 08:44 Duloxetine HCl (Cymbalta) 20 mg DAILY PO 06/04/21 09:00 06/04/21 08:43 Current Medications Medications (Trade) Dose Ordered Sig/Aparna Route PRN Reason Start Time Stop Time Status Last Admin Dose Admin Duloxetine HCl (Cymbalta) 30 mg DAILY PO 06/04/21 09:00 06/04/21 08:44 Duloxetine HCl (Cymbalta) 20 mg DAILY PO 06/04/21 09:00 06/04/21 08:43 I have reviewed the current psychotropics carefully including drug interactions. Risk benefit ratio favors no change other than as noted in my dictated progress note. Diagnosis: Problems: (1) Major depressive disorder (2) Impulse control disorder, unspecified (3) Anxiety disorder, unspecified (4) Dementia, vascular, with depression (5) Dementia, vascular, with delusions (6) Major neurocognitive disorder NIK LOYA MD Jun 04, 2021 21:46
--- NOTE | 2021-06-05 05:05 | NUR ---
Nursing Note The patient was located in his room for his assessment and medication pass. The patient took his medication whole and was alert to his name and that he was in [place]. The patient was able to take his medication whole. The patient is currently sleeping in his room.
[2021-06-05 06:00] VITALS: BP 122/76
--- NOTE | 2021-06-05 06:42 | PDOC ---
Exam Note: Leo Note: Please also refer to the separate dictated note~for this date of service dictated separately.~Patient seen individually. Discussed the patient with Nursing staff reviewed the chart.~Reviewed interim history and current functioning. Reviewed vital signs,~Labs/ Radiology~and current medications noted below. Continue current treatment with the changes noted in the dictated addendum note Assessment: Vital Signs/I&O: Vital Signs Date Time Temp Pulse Resp B/P (MAP) Pulse Ox O2 Delivery O2 Flow Rate FiO2 06/05/21 06:00 97.1 83 16 122/76 (91) 91 Room Air I & O 06/04/21 06/04/21 06/05/21 15:00 23:00 07:00 Intake Total 720 ml 320 ml Balance 720 ml 320 ml Labs: Laboratory Tests Test 06/04/21 07:34 Glucose (Fingerstick) 113 mg/dL (70-99) H Current Medications: Meds: Current Medications Medications (Trade) Dose Ordered Sig/Aparna Route PRN Reason Start Time Stop Time Status Last Admin Dose Admin Duloxetine HCl (Cymbalta) 30 mg DAILY PO 06/04/21 09:00 06/04/21 08:44 Duloxetine HCl (Cymbalta) 20 mg DAILY PO 06/04/21 09:00 06/04/21 08:43 I have reviewed the current psychotropics carefully including drug interactions. Risk benefit ratio favors no change other than as noted in my dictated progress note. Diagnosis: Problems: (1) Major depressive disorder (2) Impulse control disorder, unspecified (3) Anxiety disorder, unspecified (4) Dementia, vascular, with depression (5) Dementia, vascular, with delusions (6) Major neurocognitive disorder NIK LOYA MD Jun 05, 2021 06:42
[2021-06-05] MEDS: IPRATROPIUM/ALBUTEROL 20/100mcg/INH INHALER. INH SCH ×4 (08:13→20:35)
[2021-06-05] MEDS: ASPIRIN ENTERIC COATED 81 MG TABLET.DR. PO SCH (08:14)
[2021-06-05] MEDS: metFORMIN XR 500 MG TAB.ER.24H PO SCH (08:14)
[2021-06-05] MEDS: CARVEDILOL 3.125 MG TABLET PO SCH ×2 (08:14→17:28)
[2021-06-05] MEDS: PHENYTOIN SODIUM EXTENDED 100 MG CAPSULE PO SCH (08:14)
[2021-06-05] MEDS: GABAPENTIN 300 MG CAPSULE. PO SCH ×2 (08:14→20:35)
[2021-06-05] MEDS: DULoxetine HCL 20 MG CAPSULE.DR PO SCH (08:15)
[2021-06-05] MEDS: CYANOCOBALAMIN (VITAMIN B-12) 1,000 MCG TABLET. PO SCH (08:15)
[2021-06-05] MEDS: DULoxetine HCL 30 MG CAPSULE.DR PO SCH (08:15)
[2021-06-05] MEDS: TAMSULOSIN 0.4 MG CAP.ER.24H. PO SCH (08:15)
[2021-06-05] MEDS: ATORVASTATIN CALCIUM 10 MG TABLET. PO SCH (08:20)
[2021-06-05] MEDS: MAGNESIUM HYDROXIDE 2,400 MG/30 ML ORAL.SUSP. PO PRN (12:15)
--- NOTE | 2021-06-05 13:07 | NUR ---
Nursing Note: Pt. has been calm, cooperative, and pleasant. He has been medication compliant. After breakfast pt was given an EEG while he was in his room. 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 He stated his left shoulder hurt and he was having burning in his throat. Pts. vitals were WNL. BP: 136/70 P: 86 02: 94% and R: 18. Charge nurse was notified and assessed pt as well and it was decided to administered Mylanta for heartburn and reevaluate. Shortly after administration pt. was reevaluated and he stated that the pain had subsided.
[2021-06-05 16:10] VITALS: BP 116/67
[2021-06-05] MEDS: MIRTAZAPINE 7.5 MG TABLET. PO SCH (20:35)
[2021-06-05] MEDS: ACETAMINOPHEN 325 MG TABLET PO PRN (21:43)
--- NOTE | 2021-06-05 22:18 | PDOC ---
Exam Note: Leo Note: Please also refer to the separate dictated note~for this date of service dictated separately.~Patient seen individually. Discussed the patient with Nursing staff reviewed the chart.~Reviewed interim history and current functioning. Reviewed vital signs,~Labs/ Radiology~and current medications noted below. Continue current treatment with the changes noted in the dictated addendum note Assessment: Vital Signs/I&O: Vital Signs Date Time Temp Pulse Resp B/P (MAP) Pulse Ox O2 Delivery O2 Flow Rate FiO2 06/05/21 17:28 68 116/67 06/05/21 16:10 98.0 18 96 06/05/21 06:00 Room Air I & O 06/04/21 06/04/21 06/05/21 15:00 23:00 07:00 Intake Total 720 ml 320 ml Balance 720 ml 320 ml Labs: Laboratory Tests Test 06/05/21 07:49 Glucose (Fingerstick) 102 mg/dL (70-99) H Current Medications: Meds: Laboratory Tests Test 06/05/21 07:49 Glucose (Fingerstick) 102 mg/dL Current Medications Medications (Trade) Dose Ordered Sig/Aparna Route PRN Reason Start Time Stop Time Status Last Admin Dose Admin Acetaminophen (Tylenol) 650 mg PRN Q6HRS PRN PO MILD PAIN / TEMP > 100.3'F 05/17/21 14:45 06/05/21 21:43 Multi-Ingredient Ointment (Analgesic [place]) 1 inna PRN QID PRN TP MUSCLE PAIN 05/17/21 14:45 Al Hydroxide/Mg Hydroxide (Mylanta Plus Xs) 15 ml PRN AFTMEALHC PRN PO DYSPEPSIA 05/17/21 14:45 Magnesium Hydroxide (Milk Of Magnesia) 2,400 mg PRN QHS PRN PO CONSTIPATION 05/17/21 14:45 06/05/21 12:15 Aspirin (Aspirin Enteric Coated) 81 mg DAILY PO 05/18/21 09:00 06/05/21 08:14 Budesonide (Pulmicort) 0.5 mg RTBID IH 05/17/21 20:00 05/18/21 13:26 DC Carvedilol (Coreg) 3.125 mg BIDWMEALS PO 05/17/21 17:00 06/05/21 17:28 Lisinopril (Prinivil) 5 mg DAILY PO 05/18/21 09:00 05/25/21 09:35 DC 05/24/21 08:39 Metformin HCl (Glucophage Xr) 500 mg DAILYWBKFT PO 05/18/21 08:00 06/05/21 08:14 Phenytoin Sodium (Dilantin) 100 mg BID PO 05/17/21 21:00 05/18/21 21:00 DC 05/18/21 20:13 Tamsulosin HCl (Flomax) 0.4 mg DAILY PO 05/18/21 09:00 06/05/21 08:15 Cyanocobalamin (Vitamin B-12) 1,000 mcg DAILY PO 05/18/21 09:00 06/05/21 08:15 Non-Formulary Medication (Ipratropium/ Albuterol Sulfate (Combivent Respimat Inhal)) 1 puff QID INH 05/17/21 17:00 05/17/21 15:02 DC Atorvastatin Calcium (Lipitor) 10 mg DAILY PO 05/18/21 09:00 06/05/21 08:20 Albuterol/ Ipratropium (Duoneb) 3 ml RTQID NEB 05/17/21 16:00 05/17/21 20:45 DC Albuterol/ Ipratropium (Combivent Respimat 20-100 Mcg) 1 puff RTQID INH 05/17/21 20:00 06/05/21 20:35 Gabapentin (Neurontin) 300 mg BID PO 05/17/21 21:00 06/05/21 20:35 Fluticasone Furoate (ARNUITY 100mcg ELLIPTA) 1 puff DAILY INH 05/18/21 14:00 05/21/21 08:27 DC 05/20/21 08:41 Phenytoin Sodium (Dilantin) 300 mg DAILY08 PO 05/19/21 08:00 06/05/21 08:14 Duloxetine HCl (Cymbalta) 30 mg DAILY PO 05/19/21 09:00 05/25/21 15:56 DC 05/25/21 12:21 Mirtazapine (Remeron) 7.5 mg QHS PO 05/19/21 21:00 06/05/21 20:35 Trazodone HCl (Desyrel) 50 mg PRN QHS PRN PO sleep 05/19/21 12:30 Divalproex Sodium (Depakote Sprinkles) 125 mg 0900,1300,1700 PO 05/25/21 09:00 05/25/21 16:36 DC 05/25/21 12:20 Duloxetine HCl (Cymbalta) 30 mg DAILY PO 05/26/21 09:00 05/25/21 16:36 DC Duloxetine HCl (Cymbalta) 20 mg DAILY PO 05/26/21 09:00 05/25/21 16:36 DC Duloxetine HCl (Cymbalta) 30 mg DAILY PO 05/26/21 09:00 06/03/21 13:28 DC 06/03/21 08:10 Duloxetine HCl (Cymbalta) 30 mg DAILY PO 06/04/21 09:00 06/05/21 08:15 Duloxetine HCl (Cymbalta) 20 mg DAILY PO 06/04/21 09:00 06/05/21 08:15 I have reviewed the current psychotropics carefully including drug interactions. Risk benefit ratio favors no change other than as noted in my dictated progress note. Diagnosis: Problems: (1) Major depressive disorder (2) Impulse control disorder, unspecified (3) Anxiety disorder, unspecified (4) Dementia, vascular, with depression (5) Dementia, vascular, with delusions (6) Major neurocognitive disorder NIK LOYA MD Jun 05, 2021 22:18
--- NOTE | 2021-06-05 23:32 | NUR ---
Watches movie in dayroom with no noted behaviors; takes medication Addendum: 06/05/21 at 2335 by BONY GASTELUM RN RN without difficulty; Tylenol 650mg given per request at bedtime for headache, sleeping soundly with no apparent distress within 60 minutes; no other voiced needs or concerns; will continue to monitor.
[2021-06-06 06:27] VITALS: BP 163/80
--- NOTE | 2021-06-06 07:03 | PDOC ---
Exam Note: Leo Note: This note is a late entry for 06/05/2021 covers elements not covered in my initial note. Subjective: The patient was seen individually in the evening of 06/05/2021 with Hipolito KOWALSKI, discussed and reviewed the chart. The patient slept 6-3/4 hours previous night. He has been withdrawn. He takes frequent naps. He did have his EEG done. We will defer to Dr. Newman. Review of Systems: Ambulation impaired in wheelchair. No CV, , pulmonary, eye, ENT system symptoms on review. Mental Status Exam: The patient is oriented to himself and situation. Speech coherent, low in rate and rhythm, low in volume. Abstraction fair. Computation impaired. Language function intact. Mood and affect withdrawn. No suicidal or homicidal ideation. No sexually inappropriate behaviors noted. Laboratory Data: Reviewed. 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 Anxiety disorder unspecified. Impulse control disorder unspecified. Plan: Continue current psychotropics. We will await Dr. Allen decision whether to treat with Dilantin at therapeutic level or stop it. We will determine psychotropics after this is concluded. Assessment: Vital Signs/I&O: Vital Signs Date Time Temp Pulse Resp B/P (MAP) Pulse Ox O2 Delivery O2 Flow Rate FiO2 06/06/21 06:27 97.5 71 18 163/80 (107) 91 06/05/21 06:00 Room Air I & O 06/05/21 06/05/21 06/06/21 15:00 23:00 07:00 Intake Total 480 ml 660 ml Balance 480 ml 660 ml Labs: Laboratory Tests Test 06/05/21 07:49 Glucose (Fingerstick) 102 mg/dL (70-99) H Current Medications: Meds: Laboratory Tests Test 06/05/21 07:49 Glucose (Fingerstick) 102 mg/dL Current Medications Medications (Trade) Dose Ordered Sig/Aparna Route PRN Reason Start Time Stop Time Status Last Admin Dose Admin Acetaminophen (Tylenol) 650 mg PRN Q6HRS PRN PO MILD PAIN / TEMP > 100.3'F 05/17/21 14:45 06/05/21 21:43 Multi-Ingredient Ointment (Analgesic [place]) 1 inna PRN QID PRN TP MUSCLE PAIN 05/17/21 14:45 Al Hydroxide/Mg Hydroxide (Mylanta Plus Xs) 15 ml PRN AFTMEALHC PRN PO DYSPEPSIA 05/17/21 14:45 Magnesium Hydroxide (Milk Of Magnesia) 2,400 mg PRN QHS PRN PO CONSTIPATION 05/17/21 14:45 06/05/21 12:15 Aspirin (Aspirin Enteric Coated) 81 mg DAILY PO 05/18/21 09:00 06/05/21 08:14 Budesonide (Pulmicort) 0.5 mg RTBID IH 05/17/21 20:00 05/18/21 13:26 DC Carvedilol (Coreg) 3.125 mg BIDWMEALS PO 05/17/21 17:00 06/05/21 17:28 Lisinopril (Prinivil) 5 mg DAILY PO 05/18/21 09:00 05/25/21 09:35 DC 05/24/21 08:39 Metformin HCl (Glucophage Xr) 500 mg DAILYWBKFT PO 05/18/21 08:00 06/05/21 08:14 Phenytoin Sodium (Dilantin) 100 mg BID PO 05/17/21 21:00 05/18/21 21:00 DC 05/18/21 20:13 Tamsulosin HCl (Flomax) 0.4 mg DAILY PO 05/18/21 09:00 06/05/21 08:15 Cyanocobalamin (Vitamin B-12) 1,000 mcg DAILY PO 05/18/21 09:00 06/05/21 08:15 Non-Formulary Medication (Ipratropium/ Albuterol Sulfate (Combivent Respimat Inhal)) 1 puff QID INH 05/17/21 17:00 05/17/21 15:02 DC Atorvastatin Calcium (Lipitor) 10 mg DAILY PO 05/18/21 09:00 06/05/21 08:20 Albuterol/ Ipratropium (Duoneb) 3 ml RTQID NEB 05/17/21 16:00 05/17/21 20:45 DC Albuterol/ Ipratropium (Combivent Respimat 20-100 Mcg) 1 puff RTQID INH 05/17/21 20:00 06/05/21 20:35 Gabapentin (Neurontin) 300 mg BID PO 05/17/21 21:00 7/8/21 20:35 Fluticasone Furoate (ARNUITY 100mcg ELLIPTA) 1 puff DAILY INH 05/18/21 14:00 05/21/21 08:27 DC 05/20/21 08:41 Phenytoin Sodium (Dilantin) 300 mg DAILY08 PO 05/19/21 08:00 06/05/21 08:14 Duloxetine HCl (Cymbalta) 30 mg DAILY PO 05/19/21 09:00 05/25/21 15:56 DC 05/25/21 12:21 Mirtazapine (Remeron) 7.5 mg QHS PO 05/19/21 21:00 06/05/21 20:35 Trazodone HCl (Desyrel) 50 mg PRN QHS PRN PO sleep 05/19/21 12:30 Divalproex Sodium (Depakote Sprinkles) 125 mg 0900,1300,1700 PO 05/25/21 09:00 05/25/21 16:36 DC 05/25/21 12:20 Duloxetine HCl (Cymbalta) 30 mg DAILY PO 05/26/21 09:00 05/25/21 16:36 DC Duloxetine HCl (Cymbalta) 20 mg DAILY PO 05/26/21 09:00 05/25/21 16:36 DC Duloxetine HCl (Cymbalta) 30 mg DAILY PO 05/26/21 09:00 06/03/21 13:28 DC 06/03/21 08:10 Duloxetine HCl (Cymbalta) 30 mg DAILY PO 06/04/21 09:00 06/05/21 08:15 Duloxetine HCl (Cymbalta) 20 mg DAILY PO 06/04/21 09:00 06/05/21 08:15 I have reviewed the current psychotropics carefully including drug interactions. Risk benefit ratio favors no change other than as noted in my dictated progress note. Diagnosis: Problems: (1) Major depressive disorder (2) Impulse control disorder, unspecified (3) Anxiety disorder, unspecified (4) Dementia, vascular, with depression (5) Dementia, vascular, with delusions (6) Major neurocognitive disorder NIK LOYA MD Jun 06, 2021 07:03
[2021-06-06] MEDS: IPRATROPIUM/ALBUTEROL 20/100mcg/INH INHALER. INH SCH ×4 (08:30→20:38)
[2021-06-06] MEDS: PHENYTOIN SODIUM EXTENDED 100 MG CAPSULE PO SCH (08:30)
[2021-06-06] MEDS: metFORMIN XR 500 MG TAB.ER.24H PO SCH (08:31)
[2021-06-06] MEDS: GABAPENTIN 300 MG CAPSULE. PO SCH ×2 (08:31→20:37)
[2021-06-06] MEDS: TAMSULOSIN 0.4 MG CAP.ER.24H. PO SCH (08:31)
[2021-06-06] MEDS: DULoxetine HCL 30 MG CAPSULE.DR PO SCH (08:31)
[2021-06-06] MEDS: ATORVASTATIN CALCIUM 10 MG TABLET. PO SCH (08:31)
[2021-06-06] MEDS: CYANOCOBALAMIN (VITAMIN B-12) 1,000 MCG TABLET. PO SCH (08:31)
[2021-06-06] MEDS: CARVEDILOL 3.125 MG TABLET PO SCH ×2 (08:31→17:40)
[2021-06-06] MEDS: ASPIRIN ENTERIC COATED 81 MG TABLET.DR. PO SCH (08:31)
[2021-06-06] MEDS: DULoxetine HCL 20 MG CAPSULE.DR PO SCH (08:31)
--- NOTE | 2021-06-06 10:57 | NUR ---
Nursing Note: Pt. has been calm, cooperative, and medication compliant. He has had a flat affect this morning and went right back to bed after breakfast. Pt. has not had any new concerning behaviors or medical concerns.
[2021-06-06 15:56] VITALS: BP 130/65
[2021-06-06] MEDS: MIRTAZAPINE 7.5 MG TABLET. PO SCH (20:37)
--- NOTE | 2021-06-06 22:02 | PDOC ---
Exam Note: Leo Note: Please also refer to the separate dictated note~for this date of service dictated separately.~Patient seen individually. Discussed the patient with Nursing staff reviewed the chart.~Reviewed interim history and current functioning. Reviewed vital signs,~Labs/ Radiology~and current medications noted below. Continue current treatment with the changes noted in the dictated addendum note Assessment: Vital Signs/I&O: Vital Signs Date Time Temp Pulse Resp B/P (MAP) Pulse Ox O2 Delivery O2 Flow Rate FiO2 06/06/21 17:40 69 130/65 06/06/21 15:56 97.1 18 96 06/05/21 06:00 Room Air I & O 06/05/21 06/05/21 06/06/21 15:00 23:00 07:00 Intake Total 480 ml 660 ml Balance 480 ml 660 ml Labs: Laboratory Tests Test 06/06/21 07:48 Glucose (Fingerstick) 96 mg/dL (70-99) Current Medications: Meds: Laboratory Tests Test 06/06/21 07:48 Glucose (Fingerstick) 96 mg/dL Current Medications Medications (Trade) Dose Ordered Sig/Aparna Route PRN Reason Start Time Stop Time Status Last Admin Dose Admin Acetaminophen (Tylenol) 650 mg PRN Q6HRS PRN PO MILD PAIN / TEMP > 100.3'F 05/17/21 14:45 06/05/21 21:43 Multi-Ingredient Ointment (Analgesic [place]) 1 inna PRN QID PRN TP MUSCLE PAIN 05/17/21 14:45 Al Hydroxide/Mg Hydroxide (Mylanta Plus Xs) 15 ml PRN AFTMEALHC PRN PO DYSPEPSIA 05/17/21 14:45 Magnesium Hydroxide (Milk Of Magnesia) 2,400 mg PRN QHS PRN PO CONSTIPATION 05/17/21 14:45 06/05/21 12:15 Aspirin (Aspirin Enteric Coated) 81 mg DAILY PO 05/18/21 09:00 06/06/21 08:31 Budesonide (Pulmicort) 0.5 mg RTBID IH 05/17/21 20:00 05/18/21 13:26 DC Carvedilol (Coreg) 3.125 mg BIDWMEALS PO 05/17/21 17:00 06/06/21 17:40 Lisinopril (Prinivil) 5 mg DAILY PO 05/18/21 09:00 05/25/21 09:35 DC 05/24/21 08:39 Metformin HCl (Glucophage Xr) 500 mg DAILYWBKFT PO 05/18/21 08:00 06/06/21 08:31 Phenytoin Sodium (Dilantin) 100 mg BID PO 05/17/21 21:00 05/18/21 21:00 DC 05/18/21 20:13 Tamsulosin HCl (Flomax) 0.4 mg DAILY PO 05/18/21 09:00 06/06/21 08:31 Cyanocobalamin (Vitamin B-12) 1,000 mcg DAILY PO 05/18/21 09:00 06/06/21 08:31 Non-Formulary Medication (Ipratropium/ Albuterol Sulfate (Combivent Respimat Inhal)) 1 puff QID INH 05/17/21 17:00 05/17/21 15:02 DC Atorvastatin Calcium (Lipitor) 10 mg DAILY PO 05/18/21 09:00 06/06/21 08:31 Albuterol/ Ipratropium (Duoneb) 3 ml RTQID NEB 05/17/21 16:00 05/17/21 20:45 DC Albuterol/ Ipratropium (Combivent Respimat 20-100 Mcg) 1 puff RTQID INH 05/17/21 20:00 06/06/21 20:38 Gabapentin (Neurontin) 300 mg BID PO 05/17/21 21:00 06/06/21 20:37 Fluticasone Furoate (ARNUITY 100mcg ELLIPTA) 1 puff DAILY INH 05/18/21 14:00 05/21/21 08:27 DC 05/20/21 08:41 Phenytoin Sodium (Dilantin) 300 mg DAILY08 PO 05/19/21 08:00 06/06/21 17:30 DC 06/06/21 08:30 Duloxetine HCl (Cymbalta) 30 mg DAILY PO 05/19/21 09:00 05/25/21 15:56 DC 05/25/21 12:21 Mirtazapine (Remeron) 7.5 mg QHS PO 05/19/21 21:00 06/06/21 20:37 Trazodone HCl (Desyrel) 50 mg PRN QHS PRN PO sleep 05/19/21 12:30 Divalproex Sodium (Depakote Sprinkles) 125 mg 0900,1300,1700 PO 05/25/21 09:00 05/25/21 16:36 DC 05/25/21 12:20 Duloxetine HCl (Cymbalta) 30 mg DAILY PO 05/26/21 09:00 05/25/21 16:36 DC Duloxetine HCl (Cymbalta) 20 mg DAILY PO 05/26/21 09:00 05/25/21 16:36 DC Duloxetine HCl (Cymbalta) 30 mg DAILY PO 05/26/21 09:00 06/03/21 13:28 DC 06/03/21 08:10 Duloxetine HCl (Cymbalta) 30 mg DAILY PO 06/04/21 09:00 06/06/21 17:51 DC 06/06/21 08:31 Duloxetine HCl (Cymbalta) 20 mg DAILY PO 06/04/21 09:00 06/06/21 17:30 DC 06/06/21 08:31 Duloxetine HCl (Cymbalta) 20 mg HS PO 06/07/21 21:00 Phenytoin Sodium (Dilantin) 300 mg HS PO 06/07/21 21:00 Duloxetine HCl (Cymbalta) 30 mg HS PO 06/07/21 21:00 I have reviewed the current psychotropics carefully including drug interactions. Risk benefit ratio favors no change other than as noted in my dictated progress note. Diagnosis: Problems: (1) Major depressive disorder (2) Impulse control disorder, unspecified (3) Anxiety disorder, unspecified (4) Dementia, vascular, with depression (5) Dementia, vascular, with delusions (6) Major neurocognitive disorder NIK LOYA MD Jun 06, 2021 22:02
[2021-06-07 06:21] VITALS: BP 159/80
[2021-06-07] MEDS: IPRATROPIUM/ALBUTEROL 20/100mcg/INH INHALER. INH SCH ×4 (08:48→19:45)
[2021-06-07] MEDS: CYANOCOBALAMIN (VITAMIN B-12) 1,000 MCG TABLET. PO SCH (08:49)
[2021-06-07] MEDS: TAMSULOSIN 0.4 MG CAP.ER.24H. PO SCH (08:49)
[2021-06-07] MEDS: ASPIRIN ENTERIC COATED 81 MG TABLET.DR. PO SCH (08:49)
[2021-06-07] MEDS: ATORVASTATIN CALCIUM 10 MG TABLET. PO SCH (08:49)
[2021-06-07] MEDS: GABAPENTIN 300 MG CAPSULE. PO SCH ×2 (08:49→19:40)
[2021-06-07] MEDS: CARVEDILOL 3.125 MG TABLET PO SCH ×2 (08:49→17:34)
[2021-06-07] MEDS: metFORMIN XR 500 MG TAB.ER.24H PO SCH (08:49)
--- NOTE | 2021-06-07 12:45 | NUR ---
Nursing Note: Pt. has been calm, cooperative, and medication compliant. He has been quiet and withdrawn for most of the day. He did join the other pts. in the day room after breakfast and lunch, but laid down for a little bit in the afternoon.
[2021-06-07 16:02] VITALS: BP 162/76
[2021-06-07] MEDS: DULoxetine HCL 20 MG CAPSULE.DR PO SCH (19:40)
[2021-06-07] MEDS: PHENYTOIN SODIUM EXTENDED 100 MG CAPSULE PO SCH (19:40)
[2021-06-07] MEDS: DULoxetine HCL 30 MG CAPSULE.DR PO SCH (19:40)
[2021-06-07] MEDS: MIRTAZAPINE 7.5 MG TABLET. PO SCH (19:40)
--- NOTE | 2021-06-07 22:17 | PDOC ---
Exam Note: Leo Note: Please also refer to the separate dictated note~for this date of service dictated separately.~Patient seen individually. Discussed the patient with Nursing staff reviewed the chart.~Reviewed interim history and current functioning. Reviewed vital signs,~Labs/ Radiology~and current medications noted below. Continue current treatment with the changes noted in the dictated addendum note Assessment: Vital Signs/I&O: Vital Signs Date Time Temp Pulse Resp B/P (MAP) Pulse Ox O2 Delivery O2 Flow Rate FiO2 06/07/21 17:34 81 162/76 06/07/21 16:02 97.5 18 97 06/05/21 06:00 Room Air I & O 06/06/21 06/06/21 06/07/21 15:00 23:00 07:00 Intake Total 720 ml 600 ml Balance 720 ml 600 ml Labs: Laboratory Tests Test 06/07/21 07:47 Glucose (Fingerstick) 104 mg/dL (70-99) H Current Medications: Meds: Laboratory Tests Test 06/07/21 07:47 Glucose (Fingerstick) 104 mg/dL Current Medications Medications (Trade) Dose Ordered Sig/Aparna Route PRN Reason Start Time Stop Time Status Last Admin Dose Admin Acetaminophen (Tylenol) 650 mg PRN Q6HRS PRN PO MILD PAIN / TEMP > 100.3'F 05/17/21 14:45 06/05/21 21:43 Multi-Ingredient Ointment (Analgesic [place]) 1 inna PRN QID PRN TP MUSCLE PAIN 05/17/21 14:45 Al Hydroxide/Mg Hydroxide (Mylanta Plus Xs) 15 ml PRN AFTMEALHC PRN PO DYSPEPSIA 05/17/21 14:45 Magnesium Hydroxide (Milk Of Magnesia) 2,400 mg PRN QHS PRN PO CONSTIPATION 05/17/21 14:45 06/05/21 12:15 Aspirin (Aspirin Enteric Coated) 81 mg DAILY PO 05/18/21 09:00 06/07/21 08:49 Budesonide (Pulmicort) 0.5 mg RTBID IH 05/17/21 20:00 05/18/21 13:26 DC Carvedilol (Coreg) 3.125 mg BIDWMEALS PO 05/17/21 17:00 06/07/21 17:34 Lisinopril (Prinivil) 5 mg DAILY PO 05/18/21 09:00 05/25/21 09:35 DC 05/24/21 08:39 Metformin HCl (Glucophage Xr) 500 mg DAILYWBKFT PO 05/18/21 08:00 06/07/21 08:49 Phenytoin Sodium (Dilantin) 100 mg BID PO 05/17/21 21:00 05/18/21 21:00 DC 05/18/21 20:13 Tamsulosin HCl (Flomax) 0.4 mg DAILY PO 05/18/21 09:00 06/07/21 08:49 Cyanocobalamin (Vitamin B-12) 1,000 mcg DAILY PO 05/18/21 09:00 06/07/21 08:49 Non-Formulary Medication (Ipratropium/ Albuterol Sulfate (Combivent Respimat Inhal)) 1 puff QID INH 05/17/21 17:00 05/17/21 15:02 DC Atorvastatin Calcium (Lipitor) 10 mg DAILY PO 05/18/21 09:00 06/07/21 08:49 Albuterol/ Ipratropium (Duoneb) 3 ml RTQID NEB 05/17/21 16:00 05/17/21 20:45 DC Albuterol/ Ipratropium (Combivent Respimat 20-100 Mcg) 1 puff RTQID INH 05/17/21 20:00 06/07/21 19:45 Gabapentin (Neurontin) 300 mg BID PO 05/17/21 21:00 06/07/21 19:40 Fluticasone Furoate (ARNUITY 100mcg ELLIPTA) 1 puff DAILY INH 05/18/21 14:00 05/21/21 08:27 DC 05/20/21 08:41 Phenytoin Sodium (Dilantin) 300 mg DAILY08 PO 05/19/21 08:00 06/06/21 17:30 DC 06/06/21 08:30 Duloxetine HCl (Cymbalta) 30 mg DAILY PO 05/19/21 09:00 05/25/21 15:56 DC 05/25/21 12:21 Mirtazapine (Remeron) 7.5 mg QHS PO 05/19/21 21:00 06/07/21 19:40 Trazodone HCl (Desyrel) 50 mg PRN QHS PRN PO sleep 05/19/21 12:30 Divalproex Sodium (Depakote Sprinkles) 125 mg 0900,1300,1700 PO 05/25/21 09:00 05/25/21 16:36 DC 05/25/21 12:20 Duloxetine HCl (Cymbalta) 30 mg DAILY PO 05/26/21 09:00 05/25/21 16:36 DC Duloxetine HCl (Cymbalta) 20 mg DAILY PO 05/26/21 09:00 05/25/21 16:36 DC Duloxetine HCl (Cymbalta) 30 mg DAILY PO 05/26/21 09:00 06/03/21 13:28 DC 06/03/21 08:10 Duloxetine HCl (Cymbalta) 30 mg DAILY PO 06/04/21 09:00 06/06/21 17:51 DC 06/06/21 08:31 Duloxetine HCl (Cymbalta) 20 mg DAILY PO 06/04/21 09:00 06/06/21 17:30 DC 06/06/21 08:31 Duloxetine HCl (Cymbalta) 20 mg HS PO 06/07/21 21:00 06/07/21 19:40 Phenytoin Sodium (Dilantin) 300 mg HS PO 06/07/21 21:00 06/07/21 19:40 Duloxetine HCl (Cymbalta) 30 mg HS PO 06/07/21 21:00 06/07/21 19:40 Current Medications Medications (Trade) Dose Ordered Sig/Aparna Route PRN Reason Start Time Stop Time Status Last Admin Dose Admin Duloxetine HCl (Cymbalta) 20 mg HS PO 06/07/21 21:00 06/07/21 19:40 Phenytoin Sodium (Dilantin) 300 mg HS PO 06/07/21 21:00 06/07/21 19:40 Duloxetine HCl (Cymbalta) 30 mg HS PO 06/07/21 21:00 06/07/21 19:40 I have reviewed the current psychotropics carefully including drug interactions. Risk benefit ratio favors no change other than as noted in my dictated progress note. Diagnosis: Problems: (1) Major depressive disorder (2) Impulse control disorder, unspecified (3) Anxiety disorder, unspecified (4) Dementia, vascular, with depression (5) Dementia, vascular, with delusions (6) Major neurocognitive disorder NIK LOYA MD Jun 07, 2021 22:17
--- NOTE | 2021-06-08 02:51 | NUR ---
Last evening pt sat in the day room until bedtime. He was cooperative and social with staff and peers. After going to bed he slept for awhilethen awoke and was disorganized rambling about his belongings being gone and being taken advantage of. He was helped back to bed and is now sleeping.
[2021-06-08 05:51] VITALS: BP 150/76
--- NOTE | 2021-06-08 08:14 | PDOC ---
Exam Note: Leo Note: This note is a late entry for 06/06/2021 covers elements not covered in my initial note. Subjective: The patient was seen individually in the evening of 06/06/2021 with Hipolito KOWALSKI, discussed and reviewed the chart. The patient slept 5-1/2 hours previous night. The patients EEG results are still awaited with Dr. Newman and awaiting Dr. Allen decision on Dilantin. He has been frequently begging the nursing staff that he could get back in bed. Review of Systems: Ambulation impaired in wheelchair/walker. No CV, , pulmonary, eye, ENT system symptoms on review. He does complain of sedation. Mental Status Exam: The patient is oriented to himself and situation. I met with him in his room at some length. Speech coherent. He had complaints towards the nursing staff and I addressed this with him. Abstraction fair. Computation impaired. Language function intact. Mood and affect withdrawn. Short-term memory is impaired. No suicidal or homicidal ideation. Laboratory Data: Reviewed. 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 Anxiety disorder unspecified. Impulse control disorder unspecified. Plan: Continue current psychotropics. We will defer Dilantin level to Dr. Newman post EEG results. Given some of his daytime sedation, change Cymbalta to the night time. Maintain rest of the psychotropics unchanged. Assessment: Vital Signs/I&O: Vital Signs Date Time Temp Pulse Resp B/P (MAP) Pulse Ox O2 Delivery O2 Flow Rate FiO2 06/08/21 05:51 97.8 98 20 150/76 (100) 92 06/05/21 06:00 Room Air I & O 06/07/21 06/07/21 06/08/21 15:00 23:00 07:00 Intake Total 720 ml 240 ml Balance 720 ml 240 ml Labs: Laboratory Tests Test 06/08/21 07:24 Glucose (Fingerstick) 114 mg/dL (70-99) H Current Medications: Meds: Laboratory Tests Test 06/08/21 07:24 Glucose (Fingerstick) 114 mg/dL Current Medications Medications (Trade) Dose Ordered Sig/Aparna Route PRN Reason Start Time Stop Time Status Last Admin Dose Admin Acetaminophen (Tylenol) 650 mg PRN Q6HRS PRN PO MILD PAIN / TEMP > 100.3'F 05/17/21 14:45 06/05/21 21:43 Multi-Ingredient Ointment (Analgesic [place]) 1 inna PRN QID PRN TP MUSCLE PAIN 05/17/21 14:45 Al Hydroxide/Mg Hydroxide (Mylanta Plus Xs) 15 ml PRN AFTMEALHC PRN PO DYSPEPSIA 05/17/21 14:45 Magnesium Hydroxide (Milk Of Magnesia) 2,400 mg PRN QHS PRN PO CONSTIPATION 05/17/21 14:45 06/05/21 12:15 Aspirin (Aspirin Enteric Coated) 81 mg DAILY PO 05/18/21 09:00 06/07/21 08:49 Budesonide (Pulmicort) 0.5 mg RTBID IH 05/17/21 20:00 05/18/21 13:26 DC Carvedilol (Coreg) 3.125 mg BIDWMEALS PO 05/17/21 17:00 06/07/21 17:34 Lisinopril (Prinivil) 5 mg DAILY PO 05/18/21 09:00 05/25/21 09:35 DC 05/24/21 08:39 Metformin HCl (Glucophage Xr) 500 mg DAILYWBKFT PO 05/18/21 08:00 06/07/21 08:49 Phenytoin Sodium (Dilantin) 100 mg BID PO 05/17/21 21:00 05/18/21 21:00 DC 05/18/21 20:13 Tamsulosin HCl (Flomax) 0.4 mg DAILY PO 05/18/21 09:00 06/07/21 08:49 Cyanocobalamin (Vitamin B-12) 1,000 mcg DAILY PO 05/18/21 09:00 06/07/21 08:49 Non-Formulary Medication (Ipratropium/ Albuterol Sulfate (Combivent Respimat Inhal)) 1 puff QID INH 05/17/21 17:00 05/17/21 15:02 DC Atorvastatin Calcium (Lipitor) 10 mg DAILY PO 05/18/21 09:00 06/07/21 08:49 Albuterol/ Ipratropium (Duoneb) 3 ml RTQID NEB 05/17/21 16:00 05/17/21 20:45 DC Albuterol/ Ipratropium (Combivent Respimat 20-100 Mcg) 1 puff RTQID INH 05/17/21 20:00 06/07/21 19:45 Gabapentin (Neurontin) 300 mg BID PO 05/17/21 21:00 06/07/21 19:40 Fluticasone Furoate (ARNUITY 100mcg ELLIPTA) 1 puff DAILY INH 05/18/21 14:00 05/21/21 08:27 DC 05/20/21 08:41 Phenytoin Sodium (Dilantin) 300 mg DAILY08 PO 05/19/21 08:00 06/06/21 17:30 DC 06/06/21 08:30 Duloxetine HCl (Cymbalta) 30 mg DAILY PO 05/19/21 09:00 05/25/21 15:56 DC 05/25/21 12:21 Mirtazapine (Remeron) 7.5 mg QHS PO 05/19/21 21:00 06/07/21 19:40 Trazodone HCl (Desyrel) 50 mg PRN QHS PRN PO sleep 05/19/21 12:30 Divalproex Sodium (Depakote Sprinkles) 125 mg 0900,1300,1700 PO 05/25/21 09:00 05/25/21 16:36 DC 05/25/21 12:20 Duloxetine HCl (Cymbalta) 30 mg DAILY PO 05/26/21 09:00 05/25/21 16:36 DC Duloxetine HCl (Cymbalta) 20 mg DAILY PO 05/26/21 09:00 05/25/21 16:36 DC Duloxetine HCl (Cymbalta) 30 mg DAILY PO 05/26/21 09:00 06/03/21 13:28 DC 06/03/21 08:10 Duloxetine HCl (Cymbalta) 30 mg DAILY PO 06/04/21 09:00 06/06/21 17:51 DC 06/06/21 08:31 Duloxetine HCl (Cymbalta) 20 mg DAILY PO 06/04/21 09:00 06/06/21 17:30 DC 06/06/21 08:31 Duloxetine HCl (Cymbalta) 20 mg HS PO 06/07/21 21:00 06/07/21 19:40 Phenytoin Sodium (Dilantin) 300 mg HS PO 06/07/21 21:00 06/07/21 19:40 Duloxetine HCl (Cymbalta) 30 mg HS PO 06/07/21 21:00 06/07/21 19:40 Current Medications Medications (Trade) Dose Ordered Sig/Aparna Route PRN Reason Start Time Stop Time Status Last Admin Dose Admin Duloxetine HCl (Cymbalta) 20 mg HS PO 06/07/21 21:00 06/07/21 19:40 Phenytoin Sodium (Dilantin) 300 mg HS PO 06/07/21 21:00 06/07/21 19:40 Duloxetine HCl (Cymbalta) 30 mg HS PO 06/07/21 21:00 06/07/21 19:40 I have reviewed the current psychotropics carefully including drug interactions. Risk benefit ratio favors no change other than as noted in my dictated progress note. Diagnosis: Problems: (1) Major depressive disorder (2) Impulse control disorder, unspecified (3) Anxiety disorder, unspecified (4) Dementia, vascular, with depression (5) Dementia, vascular, with delusions (6) Major neurocognitive disorder NIK LOYA MD Jun 08, 2021 08:14
[2021-06-08] MEDS: IPRATROPIUM/ALBUTEROL 20/100mcg/INH INHALER. INH SCH ×4 (08:25→20:00)
[2021-06-08] MEDS: metFORMIN XR 500 MG TAB.ER.24H PO SCH (08:25)
[2021-06-08] MEDS: CARVEDILOL 3.125 MG TABLET PO SCH ×2 (08:25→17:16)
[2021-06-08] MEDS: ASPIRIN ENTERIC COATED 81 MG TABLET.DR. PO SCH (08:25)
[2021-06-08] MEDS: ATORVASTATIN CALCIUM 10 MG TABLET. PO SCH (08:26)
[2021-06-08] MEDS: CYANOCOBALAMIN (VITAMIN B-12) 1,000 MCG TABLET. PO SCH (08:26)
[2021-06-08] MEDS: GABAPENTIN 300 MG CAPSULE. PO SCH ×2 (08:26→20:00)
[2021-06-08] MEDS: TAMSULOSIN 0.4 MG CAP.ER.24H. PO SCH (08:26)
[2021-06-08] MEDS: ACETAMINOPHEN 325 MG TABLET PO PRN (08:27)
--- NOTE | 2021-06-08 08:36 | PDOC ---
Exam Note: Leo Note: This note is a late entry for 06/07/2021 covers elements not covered in my initial note. Subjective: The patient was seen individually in the evening of 06/07/2021 with Hipolito KOWALSKI, discussed and reviewed the chart. The patient slept 6-3/4 hours previous night. The patient spends much time in bed during the morning, more out of bed in the afternoon and evening and I met with him in the dayroom in the evening. He is compliant with medications, less paranoid. Review of Systems: Ambulation impaired in wheelchair/walker. No CV, , pulmonary, eye, ENT system symptoms on review. Mental Status Exam: The patient is oriented to himself and situation. Speech has some latency coherent. Abstraction fair. Computation impaired. Language function intact. Mood and affect somewhat withdrawn. No suicidal or homicidal ideation. Laboratory Data: Reviewed. 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 Anxiety disorder unspecified. Impulse control disorder unspecified. Plan: No change from initial note. Assessment: Vital Signs/I&O: Vital Signs Date Time Temp Pulse Resp B/P (MAP) Pulse Ox O2 Delivery O2 Flow Rate FiO2 06/08/21 08:25 98 150/76 06/08/21 05:51 97.8 20 92 06/05/21 06:00 Room Air I & O 06/07/21 06/07/21 06/08/21 15:00 23:00 07:00 Intake Total 720 ml 240 ml Balance 720 ml 240 ml Labs: Laboratory Tests Test 06/08/21 07:24 Glucose (Fingerstick) 114 mg/dL (70-99) H Current Medications: Meds: Laboratory Tests Test 06/08/21 07:24 Glucose (Fingerstick) 114 mg/dL Current Medications Medications (Trade) Dose Ordered Sig/Aparna Route PRN Reason Start Time Stop Time Status Last Admin Dose Admin Acetaminophen (Tylenol) 650 mg PRN Q6HRS PRN PO MILD PAIN / TEMP > 100.3'F 05/17/21 14:45 06/08/21 08:27 Multi-Ingredient Ointment (Analgesic [place]) 1 inna PRN QID PRN TP MUSCLE PAIN 05/17/21 14:45 Al Hydroxide/Mg Hydroxide (Mylanta Plus Xs) 15 ml PRN AFTMEALHC PRN PO DYSPEPSIA 05/17/21 14:45 Magnesium Hydroxide (Milk Of Magnesia) 2,400 mg PRN QHS PRN PO CONSTIPATION 05/17/21 14:45 06/05/21 12:15 Aspirin (Aspirin Enteric Coated) 81 mg DAILY PO 05/18/21 09:00 06/08/21 08:25 Budesonide (Pulmicort) 0.5 mg RTBID IH 05/17/21 20:00 05/18/21 13:26 DC Carvedilol (Coreg) 3.125 mg BIDWMEALS PO 05/17/21 17:00 06/08/21 08:25 Lisinopril (Prinivil) 5 mg DAILY PO 05/18/21 09:00 05/25/21 09:35 DC 05/24/21 08:39 Metformin HCl (Glucophage Xr) 500 mg DAILYWBKFT PO 05/18/21 08:00 06/08/21 08:25 Phenytoin Sodium (Dilantin) 100 mg BID PO 05/17/21 21:00 05/18/21 21:00 DC 05/18/21 20:13 Tamsulosin HCl (Flomax) 0.4 mg DAILY PO 05/18/21 09:00 06/08/21 08:26 Cyanocobalamin (Vitamin B-12) 1,000 mcg DAILY PO 05/18/21 09:00 06/08/21 08:26 Non-Formulary Medication (Ipratropium/ Albuterol Sulfate (Combivent Respimat Inhal)) 1 puff QID INH 05/17/21 17:00 05/17/21 15:02 DC Atorvastatin Calcium (Lipitor) 10 mg DAILY PO 05/18/21 09:00 06/08/21 08:26 Albuterol/ Ipratropium (Duoneb) 3 ml RTQID NEB 05/17/21 16:00 05/17/21 20:45 DC Albuterol/ Ipratropium (Combivent Respimat 20-100 Mcg) 1 puff RTQID INH 05/17/21 20:00 06/08/21 08:25 Gabapentin (Neurontin) 300 mg BID PO 05/17/21 21:00 06/08/21 08:26 Fluticasone Furoate (ARNUITY 100mcg ELLIPTA) 1 puff DAILY INH 05/18/21 14:00 05/21/21 08:27 DC 05/20/21 08:41 Phenytoin Sodium (Dilantin) 300 mg DAILY08 PO 05/19/21 08:00 06/06/21 17:30 DC 06/06/21 08:30 Duloxetine HCl (Cymbalta) 30 mg DAILY PO 05/19/21 09:00 05/25/21 15:56 DC 05/25/21 12:21 Mirtazapine (Remeron) 7.5 mg QHS PO 05/19/21 21:00 06/07/21 19:40 Trazodone HCl (Desyrel) 50 mg PRN QHS PRN PO sleep 05/19/21 12:30 Divalproex Sodium (Depakote Sprinkles) 125 mg 0900,1300,1700 PO 05/25/21 09:00 05/25/21 16:36 DC 05/25/21 12:20 Duloxetine HCl (Cymbalta) 30 mg DAILY PO 05/26/21 09:00 05/25/21 16:36 DC Duloxetine HCl (Cymbalta) 20 mg DAILY PO 05/26/21 09:00 05/25/21 16:36 DC Duloxetine HCl (Cymbalta) 30 mg DAILY PO 05/26/21 09:00 06/03/21 13:28 DC 06/03/21 08:10 Duloxetine HCl (Cymbalta) 30 mg DAILY PO 06/04/21 09:00 06/06/21 17:51 DC 06/06/21 08:31 Duloxetine HCl (Cymbalta) 20 mg DAILY PO 06/04/21 09:00 06/06/21 17:30 DC 06/06/21 08:31 Duloxetine HCl (Cymbalta) 20 mg HS PO 06/07/21 21:00 06/07/21 19:40 Phenytoin Sodium (Dilantin) 300 mg HS PO 06/07/21 21:00 06/07/21 19:40 Duloxetine HCl (Cymbalta) 30 mg HS PO 06/07/21 21:00 06/07/21 19:40 Current Medications Medications (Trade) Dose Ordered Sig/Aparna Route PRN Reason Start Time Stop Time Status Last Admin Dose Admin Duloxetine HCl (Cymbalta) 20 mg HS PO 06/07/21 21:00 06/07/21 19:40 Phenytoin Sodium (Dilantin) 300 mg HS PO 06/07/21 21:00 06/07/21 19:40 Duloxetine HCl (Cymbalta) 30 mg HS PO 06/07/21 21:00 06/07/21 19:40 I have reviewed the current psychotropics carefully including drug interactions. Risk benefit ratio favors no change other than as noted in my dictated progress note. Diagnosis: Problems: (1) Major depressive disorder (2) Impulse control disorder, unspecified (3) Anxiety disorder, unspecified (4) Dementia, vascular, with depression (5) Dementia, vascular, with delusions (6) Major neurocognitive disorder NIK LOYA MD Jun 08, 2021 08:36
--- NOTE | 2021-06-08 13:00 | NUR ---
Nursing Note: Pt. has been calm, cooperative, and medication compliant. He has been quiet and withdrawn for most of the day. He did complain of a headache early this morning, which was subsided with PRN Tylenol. He came to the day room for a short time, but spent the majority of his day in his room sleeping.
[2021-06-08 16:05] VITALS: BP 129/50
[2021-06-08] MEDS: DULoxetine HCL 30 MG CAPSULE.DR PO SCH (19:59)
[2021-06-08] MEDS: MIRTAZAPINE 7.5 MG TABLET. PO SCH (19:59)
[2021-06-08] MEDS: DULoxetine HCL 20 MG CAPSULE.DR PO SCH (19:59)
[2021-06-08] MEDS: PHENYTOIN SODIUM EXTENDED 100 MG CAPSULE PO SCH (20:00)
--- NOTE | 2021-06-08 22:11 | PDOC ---
Exam Note: Leo Note: Please also refer to the separate dictated note~for this date of service dictated separately.~Patient seen individually. Discussed the patient with Nursing staff reviewed the chart.~Reviewed interim history and current functioning. Reviewed vital signs,~Labs/ Radiology~and current medications noted below. Continue current treatment with the changes noted in the dictated addendum note Assessment: Vital Signs/I&O: Vital Signs Date Time Temp Pulse Resp B/P (MAP) Pulse Ox O2 Delivery O2 Flow Rate FiO2 06/08/21 17:16 76 129/50 06/08/21 16:05 98.2 20 96 06/05/21 06:00 Room Air I & O 06/07/21 06/07/21 06/08/21 15:00 23:00 07:00 Intake Total 720 ml 240 ml Balance 720 ml 240 ml Labs: Laboratory Tests Test 06/08/21 07:24 Glucose (Fingerstick) 114 mg/dL (70-99) H Current Medications: Meds: Laboratory Tests Test 06/08/21 07:24 Glucose (Fingerstick) 114 mg/dL Current Medications Medications (Trade) Dose Ordered Sig/Aparna Route PRN Reason Start Time Stop Time Status Last Admin Dose Admin Acetaminophen (Tylenol) 650 mg PRN Q6HRS PRN PO MILD PAIN / TEMP > 100.3'F 05/17/21 14:45 06/08/21 08:27 Multi-Ingredient Ointment (Analgesic [place]) 1 inna PRN QID PRN TP MUSCLE PAIN 05/17/21 14:45 Al Hydroxide/Mg Hydroxide (Mylanta Plus Xs) 15 ml PRN AFTMEALHC PRN PO DYSPEPSIA 05/17/21 14:45 Magnesium Hydroxide (Milk Of Magnesia) 2,400 mg PRN QHS PRN PO CONSTIPATION 05/17/21 14:45 06/05/21 12:15 Aspirin (Aspirin Enteric Coated) 81 mg DAILY PO 05/18/21 09:00 06/08/21 08:25 Budesonide (Pulmicort) 0.5 mg RTBID IH 05/17/21 20:00 05/18/21 13:26 DC Carvedilol (Coreg) 3.125 mg BIDWMEALS PO 05/17/21 17:00 06/08/21 17:16 Lisinopril (Prinivil) 5 mg DAILY PO 05/18/21 09:00 05/25/21 09:35 DC 05/24/21 08:39 Metformin HCl (Glucophage Xr) 500 mg DAILYWBKFT PO 05/18/21 08:00 06/08/21 08:25 Phenytoin Sodium (Dilantin) 100 mg BID PO 05/17/21 21:00 05/18/21 21:00 DC 05/18/21 20:13 Tamsulosin HCl (Flomax) 0.4 mg DAILY PO 05/18/21 09:00 06/08/21 08:26 Cyanocobalamin (Vitamin B-12) 1,000 mcg DAILY PO 05/18/21 09:00 06/08/21 08:26 Non-Formulary Medication (Ipratropium/ Albuterol Sulfate (Combivent Respimat Inhal)) 1 puff QID INH 05/17/21 17:00 05/17/21 15:02 DC Atorvastatin Calcium (Lipitor) 10 mg DAILY PO 05/18/21 09:00 06/08/21 08:26 Albuterol/ Ipratropium (Duoneb) 3 ml RTQID NEB 05/17/21 16:00 05/17/21 20:45 DC Albuterol/ Ipratropium (Combivent Respimat 20-100 Mcg) 1 puff RTQID INH 05/17/21 20:00 06/08/21 20:00 Gabapentin (Neurontin) 300 mg BID PO 05/17/21 21:00 06/08/21 20:00 Fluticasone Furoate (ARNUITY 100mcg ELLIPTA) 1 puff DAILY INH 05/18/21 14:00 05/21/21 08:27 DC 05/20/21 08:41 Phenytoin Sodium (Dilantin) 300 mg DAILY08 PO 05/19/21 08:00 06/06/21 17:30 DC 06/06/21 08:30 Duloxetine HCl (Cymbalta) 30 mg DAILY PO 05/19/21 09:00 05/25/21 15:56 DC 05/25/21 12:21 Mirtazapine (Remeron) 7.5 mg QHS PO 05/19/21 21:00 06/08/21 19:59 Trazodone HCl (Desyrel) 50 mg PRN QHS PRN PO sleep 05/19/21 12:30 Divalproex Sodium (Depakote Sprinkles) 125 mg 0900,1300,1700 PO 05/25/21 09:00 05/25/21 16:36 DC 05/25/21 12:20 Duloxetine HCl (Cymbalta) 30 mg DAILY PO 05/26/21 09:00 05/25/21 16:36 DC Duloxetine HCl (Cymbalta) 20 mg DAILY PO 05/26/21 09:00 05/25/21 16:36 DC Duloxetine HCl (Cymbalta) 30 mg DAILY PO 05/26/21 09:00 06/03/21 13:28 DC 06/03/21 08:10 Duloxetine HCl (Cymbalta) 30 mg DAILY PO 06/04/21 09:00 06/06/21 17:51 DC 06/06/21 08:31 Duloxetine HCl (Cymbalta) 20 mg DAILY PO 06/04/21 09:00 06/06/21 17:30 DC 06/06/21 08:31 Duloxetine HCl (Cymbalta) 20 mg HS PO 06/07/21 21:00 06/08/21 19:59 Phenytoin Sodium (Dilantin) 300 mg HS PO 06/07/21 21:00 06/08/21 20:00 Duloxetine HCl (Cymbalta) 30 mg HS PO 06/07/21 21:00 06/08/21 19:59 I have reviewed the current psychotropics carefully including drug interactions. Risk benefit ratio favors no change other than as noted in my dictated progress note. Diagnosis: Problems: (1) Major depressive disorder (2) Impulse control disorder, unspecified (3) Anxiety disorder, unspecified (4) Dementia, vascular, with depression (5) Dementia, vascular, with delusions (6) Major neurocognitive disorder NIK LOYA MD Jun 08, 2021 22:10
--- NOTE | 2021-06-08 22:55 | NUR ---
Patient was in they day room socializing with peers and watching tv. He is compliant with medications, interactive with staff and cooperative. Patient did not attempt to leave day room to go to bed early.
[2021-06-09 06:07] VITALS: BP 156/81
--- NOTE | 2021-06-09 06:52 | PDOC ---
Exam Note: Leo Note: This note is a late entry for 06/08/2021 covers elements not covered in my initial note. Subjective: The patient was seen individually in the evening of 06/08/2021 with Hipolito KOWALSKI, discussed and reviewed the chart. The patient slept 6-1/4 hours previous night. The patient woke up at 2 a.m., very sedated. He has been tired during the day, wanting to be back in his room. Door has been shut to help him stay in the dayroom but he is kicking the door. He states he is ambulating on his own slowly today. He complains of headache. We will check CBC, CMP, UA today to make sure there is nothing medical to account for his tiredness. Review of Systems: Ambulation impaired in wheelchair/walker. No CV, , pulmonary, eye, ENT system symptoms on review. Mental Status Exam: The patient is oriented to himself and situation. Speech has some latency coherent. Abstraction fair. Computation impaired. Language function intact. Mood and affect somewhat withdrawn. No suicidal or homicidal ideation. Laboratory Data: Reviewed. 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 Anxiety disorder unspecified. Impulse control disorder unspecified. Plan: No change from initial note. Assessment: Vital Signs/I&O: Vital Signs Date Time Temp Pulse Resp B/P (MAP) Pulse Ox O2 Delivery O2 Flow Rate FiO2 06/09/21 06:07 98.1 96 22 156/81 (106) 95 06/05/21 06:00 Room Air I & O 06/08/21 06/08/21 06/09/21 15:00 23:00 07:00 Intake Total 840 ml 600 ml Balance 840 ml 600 ml Labs: Laboratory Tests Test 06/08/21 07:24 Glucose (Fingerstick) 114 mg/dL (70-99) H Current Medications: Meds: Laboratory Tests Test 06/08/21 07:24 Glucose (Fingerstick) 114 mg/dL Current Medications Medications (Trade) Dose Ordered Sig/Aparna Route PRN Reason Start Time Stop Time Status Last Admin Dose Admin Acetaminophen (Tylenol) 650 mg PRN Q6HRS PRN PO MILD PAIN / TEMP > 100.3'F 05/17/21 14:45 06/08/21 08:27 Multi-Ingredient Ointment (Analgesic [place]) 1 inna PRN QID PRN TP MUSCLE PAIN 05/17/21 14:45 Al Hydroxide/Mg Hydroxide (Mylanta Plus Xs) 15 ml PRN AFTMEALHC PRN PO DYSPEPSIA 05/17/21 14:45 Magnesium Hydroxide (Milk Of Magnesia) 2,400 mg PRN QHS PRN PO CONSTIPATION 05/17/21 14:45 06/05/21 12:15 Aspirin (Aspirin Enteric Coated) 81 mg DAILY PO 05/18/21 09:00 06/08/21 08:25 Budesonide (Pulmicort) 0.5 mg RTBID IH 05/17/21 20:00 05/18/21 13:26 DC Carvedilol (Coreg) 3.125 mg BIDWMEALS PO 05/17/21 17:00 06/08/21 17:16 Lisinopril (Prinivil) 5 mg DAILY PO 05/18/21 09:00 05/25/21 09:35 DC 05/24/21 08:39 Metformin HCl (Glucophage Xr) 500 mg DAILYWBKFT PO 05/18/21 08:00 06/08/21 08:25 Phenytoin Sodium (Dilantin) 100 mg BID PO 05/17/21 21:00 05/18/21 21:00 DC 05/18/21 20:13 Tamsulosin HCl (Flomax) 0.4 mg DAILY PO 05/18/21 09:00 06/08/21 08:26 Cyanocobalamin (Vitamin B-12) 1,000 mcg DAILY PO 05/18/21 09:00 06/08/21 08:26 Non-Formulary Medication (Ipratropium/ Albuterol Sulfate (Combivent Respimat Inhal)) 1 puff QID INH 05/17/21 17:00 05/17/21 15:02 DC Atorvastatin Calcium (Lipitor) 10 mg DAILY PO 05/18/21 09:00 06/08/21 08:26 Albuterol/ Ipratropium (Duoneb) 3 ml RTQID NEB 05/17/21 16:00 05/17/21 20:45 DC Albuterol/ Ipratropium (Combivent Respimat 20-100 Mcg) 1 puff RTQID INH 05/17/21 20:00 06/08/21 20:00 Gabapentin (Neurontin) 300 mg BID PO 05/17/21 21:00 06/08/21 20:00 Fluticasone Furoate (ARNUITY 100mcg ELLIPTA) 1 puff DAILY INH 05/18/21 14:00 05/21/21 08:27 DC 05/20/21 08:41 Phenytoin Sodium (Dilantin) 300 mg DAILY08 PO 05/19/21 08:00 06/06/21 17:30 DC 06/06/21 08:30 Duloxetine HCl (Cymbalta) 30 mg DAILY PO 05/19/21 09:00 05/25/21 15:56 DC 05/25/21 12:21 Mirtazapine (Remeron) 7.5 mg QHS PO 05/19/21 21:00 06/08/21 19:59 Trazodone HCl (Desyrel) 50 mg PRN QHS PRN PO sleep 05/19/21 12:30 Divalproex Sodium (Depakote Sprinkles) 125 mg 0900,1300,1700 PO 05/25/21 09:00 05/25/21 16:36 DC 05/25/21 12:20 Duloxetine HCl (Cymbalta) 30 mg DAILY PO 05/26/21 09:00 05/25/21 16:36 DC Duloxetine HCl (Cymbalta) 20 mg DAILY PO 05/26/21 09:00 05/25/21 16:36 DC Duloxetine HCl (Cymbalta) 30 mg DAILY PO 05/26/21 09:00 06/03/21 13:28 DC 06/03/21 08:10 Duloxetine HCl (Cymbalta) 30 mg DAILY PO 06/04/21 09:00 06/06/21 17:51 DC 06/06/21 08:31 Duloxetine HCl (Cymbalta) 20 mg DAILY PO 06/04/21 09:00 06/06/21 17:30 DC 06/06/21 08:31 Duloxetine HCl (Cymbalta) 20 mg HS PO 06/07/21 21:00 06/08/21 19:59 Phenytoin Sodium (Dilantin) 300 mg HS PO 06/07/21 21:00 06/08/21 20:00 Duloxetine HCl (Cymbalta) 30 mg HS PO 06/07/21 21:00 06/08/21 19:59 I have reviewed the current psychotropics carefully including drug interactions. Risk benefit ratio favors no change other than as noted in my dictated progress note. Diagnosis: Problems: (1) Major depressive disorder (2) Impulse control disorder, unspecified (3) Anxiety disorder, unspecified (4) Dementia, vascular, with depression (5) Dementia, vascular, with delusions (6) Major neurocognitive disorder NIK LOYA MD Jun 09, 2021 06:52
[2021-06-09 06:59] LABS: BASO # 0.1 x10^3/uL (0.0-0.2); BASO % 1 % (0-3); EOS # 0.8 x10^3/uL (0.0-0.7); EOS % 11 % (0-3); HEMATOCRIT 31.7 % (39.0-53.0); HEMOGLOBIN 10.7 g/dL (13.0-17.5); LYMPH # 2.2 x10^3/uL (1.0-4.8); LYMPH % 31 % (24-48); MEAN CORPUSCULAR HEMOGLOBIN 34 pg (25-35); MEAN CORPUSCULAR HGB CONC 34 g/dL (31-37); MEAN CORPUSCULAR VOLUME 101 fL (79-100); MONO # 0.7 x10^3/uL (0.0-1.1); MONO % 10 % (0-9); NEUT # 3.3 x10^3uL (1.8-7.7); NEUT % 47 % (31-73); PLATELET COUNT 113 x10^3/uL (140-400); RED BLOOD COUNT 3.15 x10^6/uL (4.30-5.70); RED CELL DISTRIBUTION WIDTH 13.3 % (11.5-14.5)
[2021-06-09 07:24] LABS: ALBUMIN/GLOBULIN RATIO 0.9 (1.0-1.7); CREATININE 1.2 mg/dL (0.7-1.3); GFR 58.6; TOTAL BILIRUBIN 0.2 mg/dL (0.2-1.0); TOTAL PROTEIN 6.2 g/dL (6.4-8.2)
[2021-06-09 07:51] LABS: CALCIUM 8.4 mg/dL (8.5-10.1)
[2021-06-09] MEDS: IPRATROPIUM/ALBUTEROL 20/100mcg/INH INHALER. INH SCH ×4 (08:00→20:10)
[2021-06-09] MEDS: metFORMIN XR 500 MG TAB.ER.24H PO SCH (08:44)
[2021-06-09] MEDS: CYANOCOBALAMIN (VITAMIN B-12) 1,000 MCG TABLET. PO SCH (08:44)
[2021-06-09] MEDS: ASPIRIN ENTERIC COATED 81 MG TABLET.DR. PO SCH (08:44)
[2021-06-09] MEDS: ATORVASTATIN CALCIUM 10 MG TABLET. PO SCH (08:44)
[2021-06-09] MEDS: TAMSULOSIN 0.4 MG CAP.ER.24H. PO SCH (08:44)
[2021-06-09] MEDS: CARVEDILOL 3.125 MG TABLET PO SCH ×2 (08:45→17:18)
--- NOTE | 2021-06-09 10:53 | NUR ---
Pt has been present and visible on the unit. His interactions with others have asad absent of verbal/physical aggression so far. During breakfast he was repetitive; asking for Ensure (being told after he finished his breakfast he would get some), and asking 2 other staff members the same question (and receiving the same answer). He has had a noticeable wet cough, during breakfast he was coughing up phlegm and scrambled eggs that he wasn't able to swallow d/t all the coughing. NOC RN reports observing pink-tinged phlegm. Dr Villarreal notified during rounds, no new orders. Pt absent of SI/HI/VH/AH/delusions/pain. He has been napping in the day room during the later part of the morning, requesting to be placed back into bed so he can nap more. Pt encouraged to remain in the common areas of the unit and to not isolate in his room, he was not pleased with the answer given by staff. Plan of care continues, will pass to next shift.
--- NOTE | 2021-06-09 11:40 | NUR ---
Treatment team note: Pt is eating roughly 100% of meals and sleeping on average 6 hours. Pt does not have any major behaviors; he is medication compliant, social with peers and staff. Pt does make himself cough to the point where he is coughing up phlegm; a ST consult will be needed as there are concerns that pt may not be swallowing well. Pt does at time need encouragement to remain up and not laying in his room, but does well overall. SW is sending out referrals for placement as [place] currently in [place] and needs a higher level of care.
[2021-06-09] MEDS: GABAPENTIN 300 MG CAPSULE. PO SCH ×2 (13:11→20:10)
--- NOTE | 2021-06-09 14:29 | NUR ---
WEEKLY ACTIVITY THERAPY NOTE Date of Admission: 05/17/21 Date of AT Assessment: 05/20 Precipitating behaviors that initiated intake and admission: Patient was reported to believe that his money was being stolen, his dog was being murdered, trying to leave the facility, disoriented, being tearful and crying frequently, and having sexually inappropriate conversations with other residents. Goal aimed: increase socialization and engagement Initial Goal: Pt will participate in at least three individual or group Activity Therapy sessions per week. Goal repeated / Weekly progress towards goal: did not achieve, 1/3 Group participation level: 1 mod Weekly highlights: horseshoes and yodeling afternoon Behaviors observed: withdrawn to room, pleasant Plan: no change to goal Beneficial adaptations: socialization
[2021-06-09 15:45] VITALS: BP 155/79
[2021-06-09 19:07] LABS: BILIRUBIN,URINE NEG (NEG); CLARITY,URINE CLEAR; COLOR,URINE YELLOW; GLUCOSE,URINE NEG (NEG); NITRITE,URINE NEG (NEG); UROBILINOGEN,URINE 0.2 mg/dL (0.2 mg/dL)
[2021-06-09 19:08] LABS: BACTERIA,URINE 0 /HPF (0-FEW); RBC,URINE 0 /HPF (0-2); SQUAMOUS EPITHELIAL CELL,UR OCC /LPF; WBC,URINE 0 /HPF (0-4)
[2021-06-09] MEDS: PHENYTOIN SODIUM EXTENDED 100 MG CAPSULE PO SCH (20:09)
[2021-06-09] MEDS: DULoxetine HCL 30 MG CAPSULE.DR PO SCH (20:09)
[2021-06-09] MEDS: MIRTAZAPINE 7.5 MG TABLET. PO SCH (20:09)
[2021-06-09] MEDS: DULoxetine HCL 20 MG CAPSULE.DR PO SCH (20:10)
--- NOTE | 2021-06-09 21:28 | NUR ---
Patient was in the day room socializing with a female peer. Per report they had been spending time together most of the day. Patient has been observed blowing his nose and coughing up phlegm throughout the evening. It was reported that Dr Villarreal had been consulted regarding patients coughing on rounds today and no new orders were received. Patient compliant with medications and cooperative with assessment. When staff told patient it was time for his shower he flew into a rage and began yelling that he WOULD NOT be taking a shower tonight. Patient stated that he preferred to shower in the morning, he did this last shower day to get his shower postponed and then was resistive with morning shower as well. Nurse spoke with patient and he continued to refuse to get up into his wheelchair from the couch. Staff x2 assisted him into the wheelchair. He continued to state he did not want a shower all the way down the garcia. Once he was actually in the shower he was cooperative per report from DEMETRIUS Hubbard.
--- NOTE | 2021-06-09 22:08 | PDOC ---
Exam Note: Leo Note: Please also refer to the separate dictated note~for this date of service dictated separately.~Patient seen individually. Discussed the patient with Nursing staff reviewed the chart.~Reviewed interim history and current functioning. Reviewed vital signs,~Labs/ Radiology~and current medications noted below. Continue current treatment with the changes noted in the dictated addendum note Assessment: Vital Signs/I&O: Vital Signs Date Time Temp Pulse Resp B/P (MAP) Pulse Ox O2 Delivery O2 Flow Rate FiO2 06/09/21 17:18 96 155/79 06/09/21 15:45 97.6 18 96 06/05/21 06:00 Room Air I & O 06/08/21 06/08/21 06/09/21 15:00 23:00 07:00 Intake Total 840 ml 600 ml Balance 840 ml 600 ml Labs: Laboratory Tests Test 06/09/21 06:34 06/09/21 07:39 06/09/21 18:35 White Blood Count 7.0 x10^3/uL (4.0-11.0) Red Blood Count 3.15 x10^6/uL (4.30-5.70) L Hemoglobin 10.7 g/dL (13.0-17.5) L Hematocrit 31.7 % (39.0-53.0) L Mean Corpuscular Volume 101 fL (79-100) H Mean Corpuscular Hemoglobin 34 pg (25-35) Mean Corpuscular Hemoglobin Concent 34 g/dL (31-37) Red Cell Distribution Width 13.3 % (11.5-14.5) Platelet Count 113 x10^3/uL (140-400) L Neutrophils (%) (Auto) 47 % (31-73) Lymphocytes (%) (Auto) 31 % (24-48) Monocytes (%) (Auto) 10 % (0-9) H Eosinophils (%) (Auto) 11 % (0-3) H Basophils (%) (Auto) 1 % (0-3) Neutrophils # (Auto) 3.3 x10^3uL (1.8-7.7) Lymphocytes # (Auto) 2.2 x10^3/uL (1.0-4.8) Monocytes # (Auto) 0.7 x10^3/uL (0.0-1.1) Eosinophils # (Auto) 0.8 x10^3/uL (0.0-0.7) H Basophils # (Auto) 0.1 x10^3/uL (0.0-0.2) Sodium Level 145 mmol/L (136-145) Potassium Level 5.0 mmol/L (3.5-5.1) Chloride Level 111 mmol/L (98-107) H Carbon Dioxide Level 24 mmol/L (21-32) Anion Gap 10 (6-14) Blood Urea Nitrogen 51 mg/dL (8-26) H Creatinine 1.2 mg/dL (0.7-1.3) Estimated GFR (Cockcroft-Gault) 58.6 BUN/Creatinine Ratio 43 (6-20) H Glucose Level 123 mg/dL (70-99) H Calcium Level 8.4 mg/dL (8.5-10.1) L Total Bilirubin 0.2 mg/dL (0.2-1.0) Aspartate Amino Transferase (AST) 18 U/L (15-37) Alanine Aminotransferase (ALT) 20 U/L (16-63) Alkaline Phosphatase 119 U/L (46-116) H Total Protein 6.2 g/dL (6.4-8.2) L Albumin 3.0 g/dL (3.4-5.0) L Albumin/Globulin Ratio 0.9 (1.0-1.7) L Glucose (Fingerstick) 127 mg/dL (70-99) H Urine Collection Type Unknown Urine Color Yellow Urine Clarity Clear Urine pH 6.5 Urine Specific [place] 1.020 Urine Protein Neg (NEG-TRACE) Urine Glucose (UA) Neg mg/dL (NEG) Urine Ketones (Stick) Neg mg/dL (NEG) Urine Blood Neg (NEG) Urine Nitrite Neg (NEG) Urine Bilirubin Neg (NEG) Urine Urobilinogen Dipstick 0.2 mg/dL (0.2 mg/dL) Urine Leukocyte Esterase Neg (NEG) Urine RBC 0 /HPF (0-2) Urine WBC 0 /HPF (0-4) Urine Squamous Epithelial Cells Occ /LPF Urine Bacteria 0 /HPF (0-FEW) Current Medications: Meds: Laboratory Tests Test 06/09/21 06:34 06/09/21 07:39 06/09/21 18:35 White Blood Count 7.0 x10^3/uL Red Blood Count 3.15 x10^6/uL Hemoglobin 10.7 g/dL Hematocrit 31.7 % Mean Corpuscular Volume 101 fL Mean Corpuscular Hemoglobin 34 pg Mean Corpuscular Hemoglobin Concent 34 g/dL Red Cell Distribution Width 13.3 % Platelet Count 113 x10^3/uL Neutrophils (%) (Auto) 47 % Lymphocytes (%) (Auto) 31 % Monocytes (%) (Auto) 10 % Eosinophils (%) (Auto) 11 % Basophils (%) (Auto) 1 % Neutrophils # (Auto) 3.3 x10^3uL Lymphocytes # (Auto) 2.2 x10^3/uL Monocytes # (Auto) 0.7 x10^3/uL Eosinophils # (Auto) 0.8 x10^3/uL Basophils # (Auto) 0.1 x10^3/uL Sodium Level 145 mmol/L Potassium Level 5.0 mmol/L Chloride Level 111 mmol/L Carbon Dioxide Level 24 mmol/L Anion Gap 10 Blood Urea Nitrogen 51 mg/dL Creatinine 1.2 mg/dL Estimated GFR (Cockcroft-Gault) 58.6 BUN/Creatinine Ratio 43 Glucose Level 123 mg/dL Calcium Level 8.4 mg/dL Total Bilirubin 0.2 mg/dL Aspartate Amino Transf (AST/SGOT) 18 U/L Alanine Aminotransferase (ALT/SGPT) 20 U/L Alkaline Phosphatase 119 U/L Total Protein 6.2 g/dL Albumin 3.0 g/dL Albumin/Globulin Ratio 0.9 Glucose (Fingerstick) 127 mg/dL Urine Collection Type Unknown Urine Color Yellow Urine Clarity Clear Urine pH 6.5 Urine Specific [place] 1.020 Urine Protein Neg Urine Glucose (UA) Neg mg/dL Urine Ketones (Stick) Neg mg/dL Urine Blood Neg Urine Nitrite Neg Urine Bilirubin Neg Urine Urobilinogen Dipstick 0.2 mg/dL Urine Leukocyte Esterase Neg Urine RBC 0 /HPF Urine WBC 0 /HPF Urine Squamous Epithelial Cells Occ /LPF Urine Bacteria 0 /HPF Current Medications Medications (Trade) Dose Ordered Sig/Aparna Route PRN Reason Start Time Stop Time Status Last Admin Dose Admin Acetaminophen (Tylenol) 650 mg PRN Q6HRS PRN PO MILD PAIN / TEMP > 100.3'F 05/17/21 14:45 06/08/21 08:27 Multi-Ingredient Ointment (Analgesic [place]) 1 inna PRN QID PRN TP MUSCLE PAIN 05/17/21 14:45 Al Hydroxide/Mg Hydroxide (Mylanta Plus Xs) 15 ml PRN AFTMEALHC PRN PO DYSPEPSIA 05/17/21 14:45 Magnesium Hydroxide (Milk Of Magnesia) 2,400 mg PRN QHS PRN PO CONSTIPATION 05/17/21 14:45 06/05/21 12:15 Aspirin (Aspirin Enteric Coated) 81 mg DAILY PO 05/18/21 09:00 06/09/21 08:44 Budesonide (Pulmicort) 0.5 mg RTBID IH 05/17/21 20:00 05/18/21 13:26 DC Carvedilol (Coreg) 3.125 mg BIDWMEALS PO 05/17/21 17:00 06/09/21 17:18 Lisinopril (Prinivil) 5 mg DAILY PO 05/18/21 09:00 05/25/21 09:35 DC 05/24/21 08:39 Metformin HCl (Glucophage Xr) 500 mg DAILYWBKFT PO 05/18/21 08:00 06/09/21 08:44 Phenytoin Sodium (Dilantin) 100 mg BID PO 05/17/21 21:00 05/18/21 21:00 DC 05/18/21 20:13 Tamsulosin HCl (Flomax) 0.4 mg DAILY PO 05/18/21 09:00 06/09/21 08:44 Cyanocobalamin (Vitamin B-12) 1,000 mcg DAILY PO 05/18/21 09:00 06/09/21 08:44 Non-Formulary Medication (Ipratropium/ Albuterol Sulfate (Combivent Respimat Inhal)) 1 puff QID INH 05/17/21 17:00 05/17/21 15:02 DC Atorvastatin Calcium (Lipitor) 10 mg DAILY PO 05/18/21 09:00 06/09/21 08:44 Albuterol/ Ipratropium (Duoneb) 3 ml RTQID NEB 05/17/21 16:00 05/17/21 20:45 DC Albuterol/ Ipratropium (Combivent Respimat 20-100 Mcg) 1 puff RTQID INH 05/17/21 20:00 06/09/21 20:10 Gabapentin (Neurontin) 300 mg BID PO 05/17/21 21:00 06/09/21 20:10 Fluticasone Furoate (ARNUITY 100mcg ELLIPTA) 1 puff DAILY INH 05/18/21 14:00 05/21/21 08:27 DC 05/20/21 08:41 Phenytoin Sodium (Dilantin) 300 mg DAILY08 PO 05/19/21 08:00 06/06/21 17:30 DC 06/06/21 08:30 Duloxetine HCl (Cymbalta) 30 mg DAILY PO 05/19/21 09:00 05/25/21 15:56 DC 05/25/21 12:21 Mirtazapine (Remeron) 7.5 mg QHS PO 05/19/21 21:00 06/09/21 20:09 Trazodone HCl (Desyrel) 50 mg PRN QHS PRN PO sleep 05/19/21 12:30 Divalproex Sodium (Depakote Sprinkles) 125 mg 0900,1300,1700 PO 05/25/21 09:00 05/25/21 16:36 DC 05/25/21 12:20 Duloxetine HCl (Cymbalta) 30 mg DAILY PO 05/26/21 09:00 05/25/21 16:36 DC Duloxetine HCl (Cymbalta) 20 mg DAILY PO 05/26/21 09:00 05/25/21 16:36 DC Duloxetine HCl (Cymbalta) 30 mg DAILY PO 05/26/21 09:00 06/03/21 13:28 DC 06/03/21 08:10 Duloxetine HCl (Cymbalta) 30 mg DAILY PO 06/04/21 09:00 06/06/21 17:51 DC 06/06/21 08:31 Duloxetine HCl (Cymbalta) 20 mg DAILY PO 06/04/21 09:00 06/06/21 17:30 DC 06/06/21 08:31 Duloxetine HCl (Cymbalta) 20 mg HS PO 06/07/21 21:00 06/09/21 20:10 Phenytoin Sodium (Dilantin) 300 mg HS PO 06/07/21 21:00 06/09/21 20:09 Duloxetine HCl (Cymbalta) 30 mg HS PO 06/07/21 21:00 06/09/21 20:09 I have reviewed the current psychotropics carefully including drug interactions. Risk benefit ratio favors no change other than as noted in my dictated progress note. Diagnosis: Problems: (1) Major depressive disorder (2) Impulse control disorder, unspecified (3) Anxiety disorder, unspecified (4) Dementia, vascular, with depression (5) Dementia, vascular, with delusions (6) Major neurocognitive disorder NIK LOYA MD Jun 09, 2021 22:08
[2021-06-10] MEDS: traZODone 50 MG TABLET. PO PRN (00:45)
[2021-06-10] MEDS: ACETAMINOPHEN 325 MG TABLET PO PRN (00:45)
--- NOTE | 2021-06-10 00:46 | NUR ---
PRN tylenol given for pain per order. PRN trazodone given for insomnia per order. Patient is delusional, awake and up in hallway, stating that he saw his dogs here yesterday. He is angry because he said "those boys" gave the dogs away while he was in the ER. Patient is not able to be re-oriented at this time. Nurse listened to patient talk about his dogs and encouraged him to go back to bed. Will continue to monitor.
--- NOTE | 2021-06-10 07:14 | PDOC ---
Exam Note: Leo Note: This note is a late entry for 06/09/2021 covers elements not covered in my initial note. Subjective: The patient was seen individually in the morning of 06/09/2021 for a treatment team meeting with Jennifer Vizcarra, Rivka Pearson (social media campaign manager), Jennifer, activity therapy and Maryjane RN, discussed and reviewed the chart. The patient slept 6-1/2 hours previous night. The patient has been compliant, has had increasing coughing, isolative. EEG is completed and Maryjane has contacted Dr. Newman to review the EEG and make further recommendations on the Dilantin. He attended one group in the past week, still preferentially uses a wheelchair. Review of Systems: Ambulation impaired in wheelchair. No CV, , pulmonary, eye, ENT system symptoms on review. Mental Status Exam: The patient is oriented to himself and situation. Speech has some latency coherent. Abstraction fair. Computation impaired. Language function intact. Mood and affect lability improved. Laboratory Data: Reviewed. Impression: Major depressive disorder with psychotic features. Major ne urocognitive disorder, early vascular with delusion and depression. Anxiety disorder unspecified. Impulse control disorder unspecified. Plan: As noted above. Await recommendations from Dr. Newman before making any further changes in psychotropics some of which should be determined whether Dilantin is increased to reach therapeutic level or discontinue it per Dr. Newman. Assessment: Vital Signs/I&O: Vital Signs Date Time Temp Pulse Resp B/P (MAP) Pulse Ox O2 Delivery O2 Flow Rate FiO2 06/09/21 17:18 96 155/79 06/09/21 15:45 97.6 18 96 06/05/21 06:00 Room Air I & O 06/09/21 06/09/21 06/10/21 15:00 23:00 07:00 Intake Total 840 ml 360 ml Balance 840 ml 360 ml Labs: Laboratory Tests Test 06/09/21 07:39 06/09/21 18:35 Glucose (Fingerstick) 127 mg/dL (70-99) H Urine Collection Type Unknown Urine Color Yellow Urine Clarity Clear Urine pH 6.5 Urine Specific [place] 1.020 Urine Protein Neg (NEG-TRACE) Urine Glucose (UA) Neg mg/dL (NEG) Urine Ketones (Stick) Neg mg/dL (NEG) Urine Blood Neg (NEG) Urine Nitrite Neg (NEG) Urine Bilirubin Neg (NEG) Urine Urobilinogen Dipstick 0.2 mg/dL (0.2 mg/dL) Urine Leukocyte Esterase Neg (NEG) Urine RBC 0 /HPF (0-2) Urine WBC 0 /HPF (0-4) Urine Squamous Epithelial Cells Occ /LPF Urine Bacteria 0 /HPF (0-FEW) Current Medications: Meds: Laboratory Tests Test 06/09/21 07:39 06/09/21 18:35 Glucose (Fingerstick) 127 mg/dL Urine Collection Type Unknown Urine Color Yellow Urine Clarity Clear Urine pH 6.5 Urine Specific [place] 1.020 Urine Protein Neg Urine Glucose (UA) Neg mg/dL Urine Ketones (Stick) Neg mg/dL Urine Blood Neg Urine Nitrite Neg Urine Bilirubin Neg Urine Urobilinogen Dipstick 0.2 mg/dL Urine Leukocyte Esterase Neg Urine RBC 0 /HPF Urine WBC 0 /HPF Urine Squamous Epithelial Cells Occ /LPF Urine Bacteria 0 /HPF Current Medications Medications (Trade) Dose Ordered Sig/Aparna Route PRN Reason Start Time Stop Time Status Last Admin Dose Admin Acetaminophen (Tylenol) 650 mg PRN Q6HRS PRN PO MILD PAIN / TEMP > 100.3'F 05/17/21 14:45 06/10/21 00:45 Multi-Ingredient Ointment (Analgesic [place]) 1 inna PRN QID PRN TP MUSCLE PAIN 05/17/21 14:45 Al Hydroxide/Mg Hydroxide (Mylanta Plus Xs) 15 ml PRN AFTMEALHC PRN PO DYSPEPSIA 05/17/21 14:45 Magnesium Hydroxide (Milk Of Magnesia) 2,400 mg PRN QHS PRN PO CONSTIPATION 05/17/21 14:45 06/05/21 12:15 Aspirin (Aspirin Enteric Coated) 81 mg DAILY PO 05/18/21 09:00 06/09/21 08:44 Budesonide (Pulmicort) 0.5 mg RTBID IH 05/17/21 20:00 05/18/21 13:26 DC Carvedilol (Coreg) 3.125 mg BIDWMEALS PO 05/17/21 17:00 06/09/21 17:18 Lisinopril (Prinivil) 5 mg DAILY PO 05/18/21 09:00 05/25/21 09:35 DC 05/24/21 08:39 Metformin HCl (Glucophage Xr) 500 mg DAILYWBKFT PO 05/18/21 08:00 06/09/21 08:44 Phenytoin Sodium (Dilantin) 100 mg BID PO 05/17/21 21:00 05/18/21 21:00 DC 05/18/21 20:13 Tamsulosin HCl (Flomax) 0.4 mg DAILY PO 05/18/21 09:00 06/09/21 08:44 Cyanocobalamin (Vitamin B-12) 1,000 mcg DAILY PO 05/18/21 09:00 06/09/21 08:44 Non-Formulary Medication (Ipratropium/ Albuterol Sulfate (Combivent Respimat Inhal)) 1 puff QID INH 05/17/21 17:00 05/17/21 15:02 DC Atorvastatin Calcium (Lipitor) 10 mg DAILY PO 05/18/21 09:00 06/09/21 08:44 Albuterol/ Ipratropium (Duoneb) 3 ml RTQID NEB 05/17/21 16:00 05/17/21 20:45 DC Albuterol/ Ipratropium (Combivent Respimat 20-100 Mcg) 1 puff RTQID INH 05/17/21 20:00 06/09/21 20:10 Gabapentin (Neurontin) 300 mg BID PO 05/17/21 21:00 06/09/21 20:10 Fluticasone Furoate (ARNUITY 100mcg ELLIPTA) 1 puff DAILY INH 05/18/21 14:00 05/21/21 08:27 DC 05/20/21 08:41 Phenytoin Sodium (Dilantin) 300 mg DAILY08 PO 05/19/21 08:00 06/06/21 17:30 DC 06/06/21 08:30 Duloxetine HCl (Cymbalta) 30 mg DAILY PO 05/19/21 09:00 05/25/21 15:56 DC 05/25/21 12:21 Mirtazapine (Remeron) 7.5 mg QHS PO 05/19/21 21:00 06/09/21 20:09 Trazodone HCl (Desyrel) 50 mg PRN QHS PRN PO sleep 05/19/21 12:30 06/10/21 00:45 Divalproex Sodium (Depakote Sprinkles) 125 mg 0900,1300,1700 PO 05/25/21 09:00 05/25/21 16:36 DC 05/25/21 12:20 Duloxetine HCl (Cymbalta) 30 mg DAILY PO 05/26/21 09:00 05/25/21 16:36 DC Duloxetine HCl (Cymbalta) 20 mg DAILY PO 05/26/21 09:00 05/25/21 16:36 DC Duloxetine HCl (Cymbalta) 30 mg DAILY PO 05/26/21 09:00 06/03/21 13:28 DC 06/03/21 08:10 Duloxetine HCl (Cymbalta) 30 mg DAILY PO 06/04/21 09:00 06/06/21 17:51 DC 06/06/21 08:31 Duloxetine HCl (Cymbalta) 20 mg DAILY PO 06/04/21 09:00 06/06/21 17:30 DC 06/06/21 08:31 Duloxetine HCl (Cymbalta) 20 mg HS PO 06/07/21 21:00 06/09/21 20:10 Phenytoin Sodium (Dilantin) 300 mg HS PO 06/07/21 21:00 06/09/21 20:09 Duloxetine HCl (Cymbalta) 30 mg HS PO 06/07/21 21:00 06/09/21 20:09 I have reviewed the current psychotropics carefully including drug interactions. Risk benefit ratio favors no change other than as noted in my dictated progress note. Diagnosis: Problems: (1) Major depressive disorder (2) Impulse control disorder, unspecified (3) Anxiety disorder, unspecified (4) Dementia, vascular, with depression (5) Dementia, vascular, with delusions (6) Major neurocognitive disorder NIK LOYA MD Jun 10, 2021 07:13
[2021-06-10] MEDS: IPRATROPIUM/ALBUTEROL 20/100mcg/INH INHALER. INH SCH ×4 (08:19→20:36)
[2021-06-10] MEDS: ATORVASTATIN CALCIUM 10 MG TABLET. PO SCH (08:20)
[2021-06-10] MEDS: GABAPENTIN 300 MG CAPSULE. PO SCH ×2 (08:20→20:32)
[2021-06-10] MEDS: CYANOCOBALAMIN (VITAMIN B-12) 1,000 MCG TABLET. PO SCH (08:20)
[2021-06-10] MEDS: CARVEDILOL 3.125 MG TABLET PO SCH ×2 (08:20→17:38)
[2021-06-10] MEDS: metFORMIN XR 500 MG TAB.ER.24H PO SCH (08:20)
[2021-06-10] MEDS: TAMSULOSIN 0.4 MG CAP.ER.24H. PO SCH (08:20)
[2021-06-10] MEDS: ASPIRIN ENTERIC COATED 81 MG TABLET.DR. PO SCH (08:20)
[2021-06-10 09:22] VITALS: BP 153/85
--- NOTE | 2021-06-10 11:55 | NUR ---
Nursing Note. Patient is cheerful this morning, takes medications self without difficulties. Assessment done, patient is pleasant during interactions/cares. Patient is secluded to room. No other acute concerns.
[2021-06-10 16:06] VITALS: BP 153/79
[2021-06-10] MEDS: DULoxetine HCL 20 MG CAPSULE.DR PO SCH (20:31)
[2021-06-10] MEDS: MIRTAZAPINE 7.5 MG TABLET. PO SCH (20:31)
[2021-06-10] MEDS: PHENYTOIN SODIUM EXTENDED 100 MG CAPSULE PO SCH (20:32)
[2021-06-10] MEDS: DULoxetine HCL 30 MG CAPSULE.DR PO SCH (20:32)
--- NOTE | 2021-06-10 22:00 | NUR ---
Patient was in the day room talking to female peers this evening. He was compliant with his medications and cooperative with staff. No delusions or hallucinations noted at this time.
--- NOTE | 2021-06-10 22:07 | PDOC ---
Exam Note: Leo Note: Please also refer to the separate dictated note~for this date of service dictated separately.~Patient seen individually. Discussed the patient with Nursing staff reviewed the chart.~Reviewed interim history and current functioning. Reviewed vital signs,~Labs/ Radiology~and current medications noted below. Continue current treatment with the changes noted in the dictated addendum note Assessment: Vital Signs/I&O: Vital Signs Date Time Temp Pulse Resp B/P (MAP) Pulse Ox O2 Delivery O2 Flow Rate FiO2 06/10/21 17:38 70 153/79 06/10/21 16:06 97.3 20 95 06/05/21 06:00 Room Air I & O 06/09/21 06/09/21 06/10/21 15:00 23:00 07:00 Intake Total 840 ml 360 ml Balance 840 ml 360 ml Labs: Laboratory Tests Test 06/10/21 07:40 Glucose (Fingerstick) 128 mg/dL (70-99) H Current Medications: Meds: Laboratory Tests Test 06/10/21 07:40 Glucose (Fingerstick) 128 mg/dL Current Medications Medications (Trade) Dose Ordered Sig/Aparna Route PRN Reason Start Time Stop Time Status Last Admin Dose Admin Acetaminophen (Tylenol) 650 mg PRN Q6HRS PRN PO MILD PAIN / TEMP > 100.3'F 05/17/21 14:45 06/10/21 00:45 Multi-Ingredient Ointment (Analgesic [place]) 1 inna PRN QID PRN TP MUSCLE PAIN 05/17/21 14:45 Al Hydroxide/Mg Hydroxide (Mylanta Plus Xs) 15 ml PRN AFTMEALHC PRN PO DYSPEPSIA 05/17/21 14:45 Magnesium Hydroxide (Milk Of Magnesia) 2,400 mg PRN QHS PRN PO CONSTIPATION 05/17/21 14:45 06/05/21 12:15 Aspirin (Aspirin Enteric Coated) 81 mg DAILY PO 05/18/21 09:00 06/10/21 08:20 Budesonide (Pulmicort) 0.5 mg RTBID IH 05/17/21 20:00 05/18/21 13:26 DC Carvedilol (Coreg) 3.125 mg BIDWMEALS PO 05/17/21 17:00 06/10/21 17:38 Lisinopril (Prinivil) 5 mg DAILY PO 05/18/21 09:00 05/25/21 09:35 DC 05/24/21 08:39 Metformin HCl (Glucophage Xr) 500 mg DAILYWBKFT PO 05/18/21 08:00 06/10/21 08:20 Phenytoin Sodium (Dilantin) 100 mg BID PO 05/17/21 21:00 05/18/21 21:00 DC 05/18/21 20:13 Tamsulosin HCl (Flomax) 0.4 mg DAILY PO 05/18/21 09:00 06/10/21 08:20 Cyanocobalamin (Vitamin B-12) 1,000 mcg DAILY PO 05/18/21 09:00 06/10/21 08:20 Non-Formulary Medication (Ipratropium/ Albuterol Sulfate (Combivent Respimat Inhal)) 1 puff QID INH 05/17/21 17:00 05/17/21 15:02 DC Atorvastatin Calcium (Lipitor) 10 mg DAILY PO 05/18/21 09:00 06/10/21 08:20 Albuterol/ Ipratropium (Duoneb) 3 ml RTQID NEB 05/17/21 16:00 05/17/21 20:45 DC Albuterol/ Ipratropium (Combivent Respimat 20-100 Mcg) 1 puff RTQID INH 05/17/21 20:00 06/10/21 20:36 Gabapentin (Neurontin) 300 mg BID PO 05/17/21 21:00 06/10/21 20:32 Fluticasone Furoate (ARNUITY 100mcg ELLIPTA) 1 puff DAILY INH 05/18/21 14:00 05/21/21 08:27 DC 05/20/21 08:41 Phenytoin Sodium (Dilantin) 300 mg DAILY08 PO 05/19/21 08:00 06/06/21 17:30 DC 06/06/21 08:30 Duloxetine HCl (Cymbalta) 30 mg DAILY PO 05/19/21 09:00 05/25/21 15:56 DC 05/25/21 12:21 Mirtazapine (Remeron) 7.5 mg QHS PO 05/19/21 21:00 06/10/21 20:31 Trazodone HCl (Desyrel) 50 mg PRN QHS PRN PO sleep 05/19/21 12:30 06/10/21 00:45 Divalproex Sodium (Depakote Sprinkles) 125 mg 0900,1300,1700 PO 05/25/21 09:00 05/25/21 16:36 DC 05/25/21 12:20 Duloxetine HCl (Cymbalta) 30 mg DAILY PO 05/26/21 09:00 05/25/21 16:36 DC Duloxetine HCl (Cymbalta) 20 mg DAILY PO 05/26/21 09:00 05/25/21 16:36 DC Duloxetine HCl (Cymbalta) 30 mg DAILY PO 05/26/21 09:00 06/03/21 13:28 DC 06/03/21 08:10 Duloxetine HCl (Cymbalta) 30 mg DAILY PO 06/04/21 09:00 06/06/21 17:51 DC 06/06/21 08:31 Duloxetine HCl (Cymbalta) 20 mg DAILY PO 06/04/21 09:00 06/06/21 17:30 DC 06/06/21 08:31 Duloxetine HCl (Cymbalta) 20 mg HS PO 06/07/21 21:00 06/10/21 20:31 Phenytoin Sodium (Dilantin) 300 mg HS PO 06/07/21 21:00 06/10/21 20:32 Duloxetine HCl (Cymbalta) 30 mg HS PO 06/07/21 21:00 06/10/21 20:32 Olanzapine (ZyPREXA ZYDIS) 2.5 mg PRN Q2HRS PRN PO PSYCHOSIS 06/10/21 18:45 I have reviewed the current psychotropics carefully including drug interactions. Risk benefit ratio favors no change other than as noted in my dictated progress note. Diagnosis: Problems: (1) Major depressive disorder (2) Impulse control disorder, unspecified (3) Anxiety disorder, unspecified (4) Dementia, vascular, with depression (5) Dementia, vascular, with delusions (6) Major neurocognitive disorder NIK LOYA MD Jun 10, 2021 22:07
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
--- NOTE | 2021-06-10 22:22 | PN ---
DATE: 05/29/2021 SUBJECTIVE: The patient denies any new medical or neurological complaints. He has not had any seizure since admission; however, his Dilantin level is subtherapeutic. The patient has been very quiet and sleeps most of the time; however, he denies headache, chest pain, shortness of breath or palpitation, dysarthria or dysphagia. OBJECTIVE: GENERAL: Obese male, not in acute distress. VITAL SIGNS: Blood pressure is 164/78, respiratory rate 18, pulse is 74 and regular, oxygen saturation is 95%, temperature 98. HEENT: Normocephalic, atraumatic, otherwise unremarkable. NECK: Supple. Negative for carotid bruit, lymphadenopathy or thyromegaly. LUNGS: Clear to A and P. CARDIOVASCULAR: Regular rate and rhythm. Normal S1, S2. There is no S3, S4 or murmur. ABDOMEN: Soft. Bowel sounds positive. EXTREMITIES: Negative for cyanosis, clubbing or pedal edema. NEUROLOGICAL: Mental status: The patient is alert and oriented to himself and situation. Speech is fluent. There is no language dysfunction. The patient has been drowsy and most of the time in the bed; however, he is arousable and answers questions appropriately. He denies hallucination or delusion. Cranial nerves are intact. No focal motor or sensory deficit. The strength is 4/5 throughout. The deep tendon reflexes were symmetric and hypoactive with absent Achilles responses. Gait not tested as the patient refused to stand up. DIAGNOSTIC DATA: A head CT scan was performed on 05/26/2021, revealed no evidence of acute intracranial process, but it showed a left frontoparietal craniectomy along with a left temporal lobe encephalomalacia. LABORATORY DATA: From 05/28/2021 revealed white blood cells of 5.8 thousand, hemoglobin 10.6, hematocrit 31.9, platelet count 108,000. Urinalysis from 05/26/2021 revealed no urinary tract infections and phenytoin level is still subtherapeutic at 5.5. IMPRESSION: 1. History of seizure -- with subtherapeutic phenytoin level, status post craniotomy. The patient has not had any recurrent seizure since admission. 2. Multiple psychiatric problems to include depression, anxiety disorders and dementia. 3. Multiple medical problems to include chronic obstructive pulmonary disease, diabetes mellitus, hypertension, obesity, history of hemorrhagic stroke or subdural hematoma and benign prostate hypertrophy, anemia. RECOMMENDATIONS: 1. We will continue with current medical and psychiatric care including phenytoin and gabapentin. 2. Await for electroencephalogram. OLIVE DR: Stefan TID: [id number]
[2021-06-11 06:26] VITALS: BP 153/75
--- NOTE | 2021-06-11 07:03 | PDOC ---
Exam Note: Leo Note: This note is a late entry for 06/10/2021 covers elements not covered in my initial note. Subjective: The patient was seen individually in the evening of 06/10/2021 with Nickolas KOWALSKI, discussed and reviewed the chart. The patient slept 5-1/2 hours previous night. Overall the patient is doing fine. He states he has walked up and down the hallway but this is not true. We will go ahead and add Zyprexa 2.5 mg q.2h. p.r.n. psychosis and agitation, max 10 mg in 24 hours. Review of Systems: Ambulation impaired in wheelchair. No CV, , pulmonary, eye, ENT system symptoms on review. Mental Status Exam: The patient is oriented to himself and situation. Speech has some latency coherent. Abstraction fair. Computation impaired. Language function intact. Mood and affect lability improved. Laboratory Data: Reviewed. 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 Anxiety disorder unspecified. Impulse control disorder unspecified. Plan: Continue current psychotropics. We will add Zyprexa p.r.n. Maintain rest of the psychotropics unchanged. Awaiting EEG to be read by Dr. Newman and any recommendations regarding Dilantin would be appreciated. Assessment: Vital Signs/I&O: Vital Signs Date Time Temp Pulse Resp B/P (MAP) Pulse Ox O2 Delivery O2 Flow Rate FiO2 06/11/21 06:26 96.9 95 16 153/75 (101) 90 I & O 06/10/21 06/10/21 06/11/21 15:00 23:00 07:00 Intake Total 720 ml 480 ml Balance 720 ml 480 ml Labs: Laboratory Tests Test 06/10/21 07:40 Glucose (Fingerstick) 128 mg/dL (70-99) H Current Medications: Meds: Laboratory Tests Test 06/10/21 07:40 Glucose (Fingerstick) 128 mg/dL Current Medications Medications (Trade) Dose Ordered Sig/Aparna Route PRN Reason Start Time Stop Time Status Last Admin Dose Admin Acetaminophen (Tylenol) 650 mg PRN Q6HRS PRN PO MILD PAIN / TEMP > 100.3'F 05/17/21 14:45 06/10/21 00:45 Multi-Ingredient Ointment (Analgesic [place]) 1 inna PRN QID PRN TP MUSCLE PAIN 05/17/21 14:45 Al Hydroxide/Mg Hydroxide (Mylanta Plus Xs) 15 ml PRN AFTMEALHC PRN PO DYSPEPSIA 05/17/21 14:45 Magnesium Hydroxide (Milk Of Magnesia) 2,400 mg PRN QHS PRN PO CONSTIPATION 05/17/21 14:45 06/05/21 12:15 Aspirin (Aspirin Enteric Coated) 81 mg DAILY PO 05/18/21 09:00 06/10/21 08:20 Budesonide (Pulmicort) 0.5 mg RTBID IH 05/17/21 20:00 05/18/21 13:26 DC Carvedilol (Coreg) 3.125 mg BIDWMEALS PO 05/17/21 17:00 06/10/21 17:38 Lisinopril (Prinivil) 5 mg DAILY PO 05/18/21 09:00 05/25/21 09:35 DC 05/24/21 08:39 Metformin HCl (Glucophage Xr) 500 mg DAILYWBKFT PO 05/18/21 08:00 06/10/21 08:20 Phenytoin Sodium (Dilantin) 100 mg BID PO 05/17/21 21:00 05/18/21 21:00 DC 05/18/21 20:13 Tamsulosin HCl (Flomax) 0.4 mg DAILY PO 05/18/21 09:00 06/10/21 08:20 Cyanocobalamin (Vitamin B-12) 1,000 mcg DAILY PO 05/18/21 09:00 06/10/21 08:20 Non-Formulary Medication (Ipratropium/ Albuterol Sulfate (Combivent Respimat Inhal)) 1 puff QID INH 05/17/21 17:00 05/17/21 15:02 DC Atorvastatin Calcium (Lipitor) 10 mg DAILY PO 05/18/21 09:00 06/10/21 08:20 Albuterol/ Ipratropium (Duoneb) 3 ml RTQID NEB 05/17/21 16:00 05/17/21 20:45 DC Albuterol/ Ipratropium (Combivent Respimat 20-100 Mcg) 1 puff RTQID INH 05/17/21 20:00 06/10/21 20:36 Gabapentin (Neurontin) 300 mg BID PO 05/17/21 21:00 06/10/21 20:32 Fluticasone Furoate (ARNUITY 100mcg ELLIPTA) 1 puff DAILY INH 05/18/21 14:00 05/21/21 08:27 DC 05/20/21 08:41 Phenytoin Sodium (Dilantin) 300 mg DAILY08 PO 05/19/21 08:00 06/06/21 17:30 DC 06/06/21 08:30 Duloxetine HCl (Cymbalta) 30 mg DAILY PO 05/19/21 09:00 05/25/21 15:56 DC 05/25/21 12:21 Mirtazapine (Remeron) 7.5 mg QHS PO 05/19/21 21:00 06/10/21 20:31 Trazodone HCl (Desyrel) 50 mg PRN QHS PRN PO sleep 05/19/21 12:30 06/10/21 00:45 Divalproex Sodium (Depakote Sprinkles) 125 mg 0900,1300,1700 PO 05/25/21 09:00 05/25/21 16:36 DC 05/25/21 12:20 Duloxetine HCl (Cymbalta) 30 mg DAILY PO 05/26/21 09:00 05/25/21 16:36 DC Duloxetine HCl (Cymbalta) 20 mg DAILY PO 05/26/21 09:00 05/25/21 16:36 DC Duloxetine HCl (Cymbalta) 30 mg DAILY PO 05/26/21 09:00 06/03/21 13:28 DC 06/03/21 08:10 Duloxetine HCl (Cymbalta) 30 mg DAILY PO 06/04/21 09:00 06/06/21 17:51 DC 06/06/21 08:31 Duloxetine HCl (Cymbalta) 20 mg DAILY PO 06/04/21 09:00 06/06/21 17:30 DC 06/06/21 08:31 Duloxetine HCl (Cymbalta) 20 mg HS PO 06/07/21 21:00 06/10/21 20:31 Phenytoin Sodium (Dilantin) 300 mg HS PO 06/07/21 21:00 06/10/21 20:32 Duloxetine HCl (Cymbalta) 30 mg HS PO 06/07/21 21:00 06/10/21 20:32 Olanzapine (ZyPREXA ZYDIS) 2.5 mg PRN Q2HRS PRN PO PSYCHOSIS 06/10/21 18:45 I have reviewed the current psychotropics carefully including drug interactions. Risk benefit ratio favors no change other than as noted in my dictated progress note. Diagnosis: Problems: (1) Major depressive disorder (2) Impulse control disorder, unspecified (3) Anxiety disorder, unspecified (4) Dementia, vascular, with depression (5) Dementia, vascular, with delusions (6) Major neurocognitive disorder NIK LOYA MD Jun 11, 2021 07:03
[2021-06-11] MEDS: IPRATROPIUM/ALBUTEROL 20/100mcg/INH INHALER. INH SCH ×4 (08:00→21:30)
[2021-06-11] MEDS: CARVEDILOL 3.125 MG TABLET PO SCH ×2 (08:23→17:00)
[2021-06-11] MEDS: GABAPENTIN 300 MG CAPSULE. PO SCH ×2 (08:23→21:31)
[2021-06-11] MEDS: ASPIRIN ENTERIC COATED 81 MG TABLET.DR. PO SCH (08:23)
[2021-06-11] MEDS: CYANOCOBALAMIN (VITAMIN B-12) 1,000 MCG TABLET. PO SCH (08:24)
[2021-06-11] MEDS: TAMSULOSIN 0.4 MG CAP.ER.24H. PO SCH (08:24)
[2021-06-11] MEDS: ATORVASTATIN CALCIUM 10 MG TABLET. PO SCH (08:24)
[2021-06-11] MEDS: metFORMIN XR 500 MG TAB.ER.24H PO SCH (08:24)
--- NOTE | 2021-06-11 10:17 | NUR ---
Pt A&O to name, and date by month at this time. No c/o seizure activity at this time. He is compliant with whole medications. No SI/HI/VH/AH/delusions/pain at this time. His interactions with others have been appropriate, no sexualized language verbalized at this time from him. He remains in a w/c and self propels. Plan of care continues, will pass to next shift.
--- NOTE | 2021-06-11 13:28 | NUR ---
[facility] met with Elizabeth, pt sister in law, who wanted to see how pt is doing. Elizabeth knew that [facility] was sending out referrals and questioned if SW would make sure they were facilities near her. Elizabeth checks in on pt more than her son/DPOA doesn't see pt as much as she does. Elizabeth has requested that referrals be sent to [facility] and agreed to [facility]. [facility] will continue to send out referrals for placement.
[2021-06-11 16:04] VITALS: BP 134/72
[2021-06-11] MEDS: traZODone 50 MG TABLET. PO PRN (21:31)
[2021-06-11] MEDS: PHENYTOIN SODIUM EXTENDED 100 MG CAPSULE PO SCH (21:31)
[2021-06-11] MEDS: MIRTAZAPINE 7.5 MG TABLET. PO SCH (21:31)
[2021-06-11] MEDS: DULoxetine HCL 20 MG CAPSULE.DR PO SCH (21:31)
[2021-06-11] MEDS: DULoxetine HCL 30 MG CAPSULE.DR PO SCH (21:31)
--- NOTE | 2021-06-11 22:18 | PDOC ---
Exam Note: Leo Note: Please also refer to the separate dictated note~for this date of service dictated separately.~Patient seen individually. Discussed the patient with Nursing staff reviewed the chart.~Reviewed interim history and current functioning. Reviewed vital signs,~Labs/ Radiology~and current medications noted below. Continue current treatment with the changes noted in the dictated addendum note Assessment: Vital Signs/I&O: Vital Signs Date Time Temp Pulse Resp B/P (MAP) Pulse Ox O2 Delivery O2 Flow Rate FiO2 06/11/21 17:00 88 134/72 06/11/21 16:04 97.0 18 97 I & O 06/10/21 06/10/21 06/11/21 15:00 23:00 07:00 Intake Total 720 ml 480 ml Balance 720 ml 480 ml Labs: Laboratory Tests Test 06/11/21 07:41 Glucose (Fingerstick) 139 mg/dL (70-99) H Current Medications: Meds: Laboratory Tests Test 06/11/21 07:41 Glucose (Fingerstick) 139 mg/dL Current Medications Medications (Trade) Dose Ordered Sig/Aparna Route PRN Reason Start Time Stop Time Status Last Admin Dose Admin Acetaminophen (Tylenol) 650 mg PRN Q6HRS PRN PO MILD PAIN / TEMP > 100.3'F 05/17/21 14:45 06/10/21 00:45 Multi-Ingredient Ointment (Analgesic [place]) 1 inna PRN QID PRN TP MUSCLE PAIN 05/17/21 14:45 Al Hydroxide/Mg Hydroxide (Mylanta Plus Xs) 15 ml PRN AFTMEALHC PRN PO DYSPEPSIA 05/17/21 14:45 Magnesium Hydroxide (Milk Of Magnesia) 2,400 mg PRN QHS PRN PO CONSTIPATION 05/17/21 14:45 06/05/21 12:15 Aspirin (Aspirin Enteric Coated) 81 mg DAILY PO 05/18/21 09:00 06/11/21 08:23 Budesonide (Pulmicort) 0.5 mg RTBID IH 05/17/21 20:00 05/18/21 13:26 DC Carvedilol (Coreg) 3.125 mg BIDWMEALS PO 05/17/21 17:00 06/11/21 17:00 Lisinopril (Prinivil) 5 mg DAILY PO 05/18/21 09:00 05/25/21 09:35 DC 05/24/21 08:39 Metformin HCl (Glucophage Xr) 500 mg DAILYWBKFT PO 05/18/21 08:00 06/11/21 08:24 Phenytoin Sodium (Dilantin) 100 mg BID PO 05/17/21 21:00 05/18/21 21:00 DC 05/18/21 20:13 Tamsulosin HCl (Flomax) 0.4 mg DAILY PO 05/18/21 09:00 06/11/21 08:24 Cyanocobalamin (Vitamin B-12) 1,000 mcg DAILY PO 05/18/21 09:00 06/11/21 08:24 Non-Formulary Medication (Ipratropium/ Albuterol Sulfate (Combivent Respimat Inhal)) 1 puff QID INH 05/17/21 17:00 05/17/21 15:02 DC Atorvastatin Calcium (Lipitor) 10 mg DAILY PO 05/18/21 09:00 06/11/21 08:24 Albuterol/ Ipratropium (Duoneb) 3 ml RTQID NEB 05/17/21 16:00 05/17/21 20:45 DC Albuterol/ Ipratropium (Combivent Respimat 20-100 Mcg) 1 puff RTQID INH 05/17/21 20:00 06/11/21 21:30 Gabapentin (Neurontin) 300 mg BID PO 05/17/21 21:00 06/11/21 21:31 Fluticasone Furoate (ARNUITY 100mcg ELLIPTA) 1 puff DAILY INH 05/18/21 14:00 05/21/21 08:27 DC 05/20/21 08:41 Phenytoin Sodium (Dilantin) 300 mg DAILY08 PO 05/19/21 08:00 06/06/21 17:30 DC 06/06/21 08:30 Duloxetine HCl (Cymbalta) 30 mg DAILY PO 05/19/21 09:00 05/25/21 15:56 DC 05/25/21 12:21 Mirtazapine (Remeron) 7.5 mg QHS PO 05/19/21 21:00 06/11/21 21:31 Trazodone HCl (Desyrel) 50 mg PRN QHS PRN PO sleep 05/19/21 12:30 06/11/21 21:31 Divalproex Sodium (Depakote Sprinkles) 125 mg 0900,1300,1700 PO 05/25/21 09:00 05/25/21 16:36 DC 05/25/21 12:20 Duloxetine HCl (Cymbalta) 30 mg DAILY PO 05/26/21 09:00 05/25/21 16:36 DC Duloxetine HCl (Cymbalta) 20 mg DAILY PO 05/26/21 09:00 05/25/21 16:36 DC Duloxetine HCl (Cymbalta) 30 mg DAILY PO 05/26/21 09:00 06/03/21 13:28 DC 06/03/21 08:10 Duloxetine HCl (Cymbalta) 30 mg DAILY PO 06/04/21 09:00 06/06/21 17:51 DC 06/06/21 08:31 Duloxetine HCl (Cymbalta) 20 mg DAILY PO 06/04/21 09:00 06/06/21 17:30 DC 06/06/21 08:31 Duloxetine HCl (Cymbalta) 20 mg HS PO 06/07/21 21:00 06/11/21 21:31 Phenytoin Sodium (Dilantin) 300 mg HS PO 06/07/21 21:00 06/11/21 21:31 Duloxetine HCl (Cymbalta) 30 mg HS PO 06/07/21 21:00 06/11/21 21:31 Olanzapine (ZyPREXA ZYDIS) 2.5 mg PRN Q2HRS PRN PO PSYCHOSIS 06/10/21 18:45 I have reviewed the current psychotropics carefully including drug interactions. Risk benefit ratio favors no change other than as noted in my dictated progress note. Diagnosis: Problems: (1) Major depressive disorder (2) Impulse control disorder, unspecified (3) Anxiety disorder, unspecified (4) Dementia, vascular, with depression (5) Dementia, vascular, with delusions (6) Major neurocognitive disorder NIK LOYA MD Jun 11, 2021 22:18
--- NOTE | 2021-06-12 01:48 | NUR ---
Pt sitting up in day room when approached. Pt calm, pleasant, social, and interactive. Pt cooperative with assessment and compliant with medications administered whole. No delusions or paranoia noted thus far this shift.
[2021-06-12 06:33] VITALS: BP 173/91
[2021-06-12] MEDS: IPRATROPIUM/ALBUTEROL 20/100mcg/INH INHALER. INH SCH ×4 (08:00→21:28)
--- NOTE | 2021-06-12 08:18 | PDOC ---
Exam Note: Leo Note: This note is a late entry for 06/11/2021 covers elements not covered in my initial note. Subjective: The patient was seen individually in the evening of 06/11/2021 with Maryjane KOWALSKI, discussed and reviewed the chart. The patient slept 5-3/4 hours previous night. The patient has been cooperative, compliant with medications. No delusions noted, somewhat restless at times. Review of Systems: Ambulation impaired in wheelchair. No CV, , pulmonary, eye, ENT system symptoms on review. Reliability varies. Mental Status Exam: The patient is oriented to himself and situation. Speech moderate latency coherent. Often response is monosyllabic. Abstraction fair. Computation impaired. Language function intact. Mood and affect somewhat withdrawn. No suicidal or homicidal ideation. Laboratory Data: Reviewed. 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 Anxiety disorder unspecified. Impulse control disorder unspecified. Plan: Continue current psychotropics. We are still awaiting Dr. Allen evaluation of EEG and decision whether to stop Dilantin or increase it to a therapeutic level. Once this is done, we will make decision on the dosage of Cymbalta. Maintain 50 mg Cymbalta, Remeron 7.5 mg h.s. Assessment: Vital Signs/I&O: Vital Signs Date Time Temp Pulse Resp B/P (MAP) Pulse Ox O2 Delivery O2 Flow Rate FiO2 06/12/21 06:33 97.2 103 20 173/91 (118) 94 Room Air I & O 06/11/21 06/11/21 06/12/21 15:00 23:00 07:00 Intake Total 840 ml 120 ml Balance 840 ml 120 ml Labs: Laboratory Tests Test 06/12/21 07:20 Glucose (Fingerstick) 141 mg/dL (70-99) H Current Medications: Meds: Laboratory Tests Test 06/12/21 07:20 Glucose (Fingerstick) 141 mg/dL Current Medications Medications (Trade) Dose Ordered Sig/Aparna Route PRN Reason Start Time Stop Time Status Last Admin Dose Admin Acetaminophen (Tylenol) 650 mg PRN Q6HRS PRN PO MILD PAIN / TEMP > 100.3'F 05/17/21 14:45 06/10/21 00:45 Multi-Ingredient Ointment (Analgesic [place]) 1 inna PRN QID PRN TP MUSCLE PAIN 05/17/21 14:45 Al Hydroxide/Mg Hydroxide (Mylanta Plus Xs) 15 ml PRN AFTMEALHC PRN PO DYSPEPSIA 05/17/21 14:45 Magnesium Hydroxide (Milk Of Magnesia) 2,400 mg PRN QHS PRN PO CONSTIPATION 05/17/21 14:45 06/05/21 12:15 Aspirin (Aspirin Enteric Coated) 81 mg DAILY PO 05/18/21 09:00 06/11/21 08:23 Budesonide (Pulmicort) 0.5 mg RTBID IH 05/17/21 20:00 05/18/21 13:26 DC Carvedilol (Coreg) 3.125 mg BIDWMEALS PO 05/17/21 17:00 06/11/21 17:00 Lisinopril (Prinivil) 5 mg DAILY PO 05/18/21 09:00 05/25/21 09:35 DC 05/24/21 08:39 Metformin HCl (Glucophage Xr) 500 mg DAILYWBKFT PO 05/18/21 08:00 06/11/21 08:24 Phenytoin Sodium (Dilantin) 100 mg BID PO 05/17/21 21:00 05/18/21 21:00 DC 05/18/21 20:13 Tamsulosin HCl (Flomax) 0.4 mg DAILY PO 05/18/21 09:00 06/11/21 08:24 Cyanocobalamin (Vitamin B-12) 1,000 mcg DAILY PO 05/18/21 09:00 06/11/21 08:24 Non-Formulary Medication (Ipratropium/ Albuterol Sulfate (Combivent Respimat Inhal)) 1 puff QID INH 05/17/21 17:00 05/17/21 15:02 DC Atorvastatin Calcium (Lipitor) 10 mg DAILY PO 05/18/21 09:00 06/11/21 08:24 Albuterol/ Ipratropium (Duoneb) 3 ml RTQID NEB 05/17/21 16:00 05/17/21 20:45 DC Albuterol/ Ipratropium (Combivent Respimat 20-100 Mcg) 1 puff RTQID INH 05/17/21 20:00 06/11/21 21:30 Gabapentin (Neurontin) 300 mg BID PO 05/17/21 21:00 06/11/21 21:31 Fluticasone Furoate (ARNUITY 100mcg ELLIPTA) 1 puff DAILY INH 05/18/21 14:00 05/21/21 08:27 DC 05/20/21 08:41 Phenytoin Sodium (Dilantin) 300 mg DAILY08 PO 05/19/21 08:00 06/06/21 17:30 DC 06/06/21 08:30 Duloxetine HCl (Cymbalta) 30 mg DAILY PO 05/19/21 09:00 05/25/21 15:56 DC 05/25/21 12:21 Mirtazapine (Remeron) 7.5 mg QHS PO 05/19/21 21:00 06/11/21 21:31 Trazodone HCl (Desyrel) 50 mg PRN QHS PRN PO sleep 05/19/21 12:30 06/11/21 21:31 Divalproex Sodium (Depakote Sprinkles) 125 mg 0900,1300,1700 PO 05/25/21 09:00 05/25/21 16:36 DC 05/25/21 12:20 Duloxetine HCl (Cymbalta) 30 mg DAILY PO 05/26/21 09:00 05/25/21 16:36 DC Duloxetine HCl (Cymbalta) 20 mg DAILY PO 05/26/21 09:00 05/25/21 16:36 DC Duloxetine HCl (Cymbalta) 30 mg DAILY PO 05/26/21 09:00 06/03/21 13:28 DC 06/03/21 08:10 Duloxetine HCl (Cymbalta) 30 mg DAILY PO 06/04/21 09:00 06/06/21 17:51 DC 06/06/21 08:31 Duloxetine HCl (Cymbalta) 20 mg DAILY PO 06/04/21 09:00 06/06/21 17:30 DC 06/06/21 08:31 Duloxetine HCl (Cymbalta) 20 mg HS PO 06/07/21 21:00 06/11/21 21:31 Phenytoin Sodium (Dilantin) 300 mg HS PO 06/07/21 21:00 06/11/21 21:31 Duloxetine HCl (Cymbalta) 30 mg HS PO 06/07/21 21:00 06/11/21 21:31 Olanzapine (ZyPREXA ZYDIS) 2.5 mg PRN Q2HRS PRN PO PSYCHOSIS 06/10/21 18:45 I have reviewed the current psychotropics carefully including drug interactions. Risk benefit ratio favors no change other than as noted in my dictated progress note. Diagnosis: Problems: (1) Major depressive disorder (2) Impulse control disorder, unspecified (3) Anxiety disorder, unspecified (4) Dementia, vascular, with depression (5) Dementia, vascular, with delusions (6) Major neurocognitive disorder NIK LOYA MD Jun 12, 2021 08:18
[2021-06-12] MEDS: TAMSULOSIN 0.4 MG CAP.ER.24H. PO SCH (08:26)
[2021-06-12] MEDS: CYANOCOBALAMIN (VITAMIN B-12) 1,000 MCG TABLET. PO SCH (08:26)
[2021-06-12] MEDS: CARVEDILOL 3.125 MG TABLET PO SCH ×2 (08:26→17:45)
[2021-06-12] MEDS: ASPIRIN ENTERIC COATED 81 MG TABLET.DR. PO SCH (08:26)
[2021-06-12] MEDS: ATORVASTATIN CALCIUM 10 MG TABLET. PO SCH (08:26)
[2021-06-12] MEDS: metFORMIN XR 500 MG TAB.ER.24H PO SCH (08:26)
[2021-06-12] MEDS: GABAPENTIN 300 MG CAPSULE. PO SCH ×2 (08:26→21:29)
--- NOTE | 2021-06-12 09:23 | NUR ---
Pt has been present and visible on the unit. His interactions with others have been appropriate. Absent of verbal/physical aggression. He is compliant with whole medications, denies pain, and has no questions/concerns at this time. Plan of care continues, will pass to next shift.
[2021-06-12 15:55] VITALS: BP 158/76
[2021-06-12] MEDS: MIRTAZAPINE 7.5 MG TABLET. PO SCH (21:29)
[2021-06-12] MEDS: PHENYTOIN SODIUM EXTENDED 100 MG CAPSULE PO SCH (21:29)
[2021-06-12] MEDS: DULoxetine HCL 20 MG CAPSULE.DR PO SCH (21:29)
[2021-06-12] MEDS: DULoxetine HCL 30 MG CAPSULE.DR PO SCH (21:29)
--- NOTE | 2021-06-12 22:14 | PDOC ---
Exam Note: Leo Note: Please also refer to the separate dictated note~for this date of service dictated separately.~Patient seen individually. Discussed the patient with Nursing staff reviewed the chart.~Reviewed interim history and current functioning. Reviewed vital signs,~Labs/ Radiology~and current medications noted below. Continue current treatment with the changes noted in the dictated addendum note Assessment: Vital Signs/I&O: Vital Signs Date Time Temp Pulse Resp B/P (MAP) Pulse Ox O2 Delivery O2 Flow Rate FiO2 06/12/21 17:45 82 158/76 06/12/21 15:55 97.6 20 95 06/12/21 06:33 Room Air I & O 06/11/21 06/11/21 06/12/21 15:00 23:00 07:00 Intake Total 840 ml 120 ml Balance 840 ml 120 ml Labs: Laboratory Tests Test 06/12/21 07:20 Glucose (Fingerstick) 141 mg/dL (70-99) H Current Medications: Meds: Laboratory Tests Test 06/12/21 07:20 Glucose (Fingerstick) 141 mg/dL Current Medications Medications (Trade) Dose Ordered Sig/Aparna Route PRN Reason Start Time Stop Time Status Last Admin Dose Admin Acetaminophen (Tylenol) 650 mg PRN Q6HRS PRN PO MILD PAIN / TEMP > 100.3'F 05/17/21 14:45 06/10/21 00:45 Multi-Ingredient Ointment (Analgesic [place]) 1 inna PRN QID PRN TP MUSCLE PAIN 05/17/21 14:45 Al Hydroxide/Mg Hydroxide (Mylanta Plus Xs) 15 ml PRN AFTMEALHC PRN PO DYSPEPSIA 05/17/21 14:45 Magnesium Hydroxide (Milk Of Magnesia) 2,400 mg PRN QHS PRN PO CONSTIPATION 05/17/21 14:45 06/05/21 12:15 Aspirin (Aspirin Enteric Coated) 81 mg DAILY PO 05/18/21 09:00 06/12/21 08:26 Budesonide (Pulmicort) 0.5 mg RTBID IH 05/17/21 20:00 05/18/21 13:26 DC Carvedilol (Coreg) 3.125 mg BIDWMEALS PO 05/17/21 17:00 06/12/21 17:45 Lisinopril (Prinivil) 5 mg DAILY PO 05/18/21 09:00 05/25/21 09:35 DC 05/24/21 08:39 Metformin HCl (Glucophage Xr) 500 mg DAILYWBKFT PO 05/18/21 08:00 06/12/21 08:26 Phenytoin Sodium (Dilantin) 100 mg BID PO 05/17/21 21:00 05/18/21 21:00 DC 05/18/21 20:13 Tamsulosin HCl (Flomax) 0.4 mg DAILY PO 05/18/21 09:00 06/12/21 08:26 Cyanocobalamin (Vitamin B-12) 1,000 mcg DAILY PO 05/18/21 09:00 06/12/21 08:26 Non-Formulary Medication (Ipratropium/ Albuterol Sulfate (Combivent Respimat Inhal)) 1 puff QID INH 05/17/21 17:00 05/17/21 15:02 DC Atorvastatin Calcium (Lipitor) 10 mg DAILY PO 05/18/21 09:00 06/12/21 08:26 Albuterol/ Ipratropium (Duoneb) 3 ml RTQID NEB 05/17/21 16:00 05/17/21 20:45 DC Albuterol/ Ipratropium (Combivent Respimat 20-100 Mcg) 1 puff RTQID INH 05/17/21 20:00 06/12/21 21:28 Gabapentin (Neurontin) 300 mg BID PO 05/17/21 21:00 06/12/21 21:29 Fluticasone Furoate (ARNUITY 100mcg ELLIPTA) 1 puff DAILY INH 05/18/21 14:00 05/21/21 08:27 DC 05/20/21 08:41 Phenytoin Sodium (Dilantin) 300 mg DAILY08 PO 05/19/21 08:00 06/06/21 17:30 DC 06/06/21 08:30 Duloxetine HCl (Cymbalta) 30 mg DAILY PO 05/19/21 09:00 05/25/21 15:56 DC 05/25/21 12:21 Mirtazapine (Remeron) 7.5 mg QHS PO 05/19/21 21:00 06/12/21 21:29 Trazodone HCl (Desyrel) 50 mg PRN QHS PRN PO sleep 05/19/21 12:30 06/11/21 21:31 Divalproex Sodium (Depakote Sprinkles) 125 mg 0900,1300,1700 PO 05/25/21 09:00 05/25/21 16:36 DC 05/25/21 12:20 Duloxetine HCl (Cymbalta) 30 mg DAILY PO 05/26/21 09:00 05/25/21 16:36 DC Duloxetine HCl (Cymbalta) 20 mg DAILY PO 05/26/21 09:00 05/25/21 16:36 DC Duloxetine HCl (Cymbalta) 30 mg DAILY PO 05/26/21 09:00 06/03/21 13:28 DC 06/03/21 08:10 Duloxetine HCl (Cymbalta) 30 mg DAILY PO 06/04/21 09:00 06/06/21 17:51 DC 06/06/21 08:31 Duloxetine HCl (Cymbalta) 20 mg DAILY PO 06/04/21 09:00 06/06/21 17:30 DC 06/06/21 08:31 Duloxetine HCl (Cymbalta) 20 mg HS PO 06/07/21 21:00 06/12/21 21:29 Phenytoin Sodium (Dilantin) 300 mg HS PO 06/07/21 21:00 06/12/21 21:29 Duloxetine HCl (Cymbalta) 30 mg HS PO 06/07/21 21:00 06/12/21 21:29 Olanzapine (ZyPREXA ZYDIS) 2.5 mg PRN Q2HRS PRN PO PSYCHOSIS 06/10/21 18:45 I have reviewed the current psychotropics carefully including drug interactions. Risk benefit ratio favors no change other than as noted in my dictated progress note. Diagnosis: Problems: (1) Major depressive disorder (2) Impulse control disorder, unspecified (3) Anxiety disorder, unspecified (4) Dementia, vascular, with depression (5) Dementia, vascular, with delusions (6) Major neurocognitive disorder NIK LOYA MD Jun 12, 2021 22:14
[2021-06-13] MEDS ORDERED: PHENYTOIN SODIUM EXTENDED 100 MG CAPSULE PO ONE (00:30)
--- NOTE | 2021-06-13 04:12 | NUR ---
Pt sitting in his bathroom when approached. Pt calm but confused and delusional- he is looking for his truck on the side of the road, he reports that he let his "Shane" borrow it. Later on in the shift, pt woke from his sleep and told staff that his arms were sore b/c he was throwing papers off the back of his truck all day. Pt cooperative with assessment and compliant with medications administered whole. New orders received from Dr. Newman to increase Dilantin to 400mg at HS and give an additional 100mg dose tonight. Dilantin 100mg administered as ordered x1.
--- NOTE | 2021-06-13 05:21 | PN ---
DATE: 06/04/2021 SUBJECTIVE: The patient stated he woke up today afternoon after he had a nap and had seizure-like activities. The nursing staff did not see any seizure episode. However, the patient becomes somewhat confused and disoriented. He denies bowel or bladder incontinence or tongue biting. OBJECTIVE: GENERAL: Obese male, not in acute distress. VITAL SIGNS: Blood pressure 156/68, respiratory rate 18, pulse is 84 and regular, temperature 98.1, oxygen saturation 95% on room air. HEENT: Normocephalic, atraumatic, otherwise unremarkable. NECK: Supple. Negative for carotid bruit, lymphadenopathy or thyromegaly. LUNGS: Clear to A and P. CARDIOVASCULAR: Regular rate and rhythm. Normal S1, S2. ABDOMEN: Soft. Bowel sounds positive. EXTREMITIES: Negative for cyanosis, clubbing or pedal edema. NEUROLOGICAL: Mental status: The patient is alert and oriented to himself and situation. His speech is clear. There is no language dysfunction. The patient follows one-step commands. He denies hallucination or delusion. Cranial nerves are intact. No focal motor or sensory deficit. The strength was 4/5 throughout. Deep tendon reflexes were asymmetric and hypoactive with absent Achilles responses. Gait not tested as the patient refused to get up and use a walker. IMPRESSION: 1. Questionable seizure-like activities. The patient stated he became somewhat confused and having a tremor. However, the nursing staff could not confirm that. 2. Multiple medical problems including chronic obstructive pulmonary disease, diabetes mellitus, hypertension, obesity, history of a hemorrhagic stroke or subdural hematoma, required a surgical evaluation. 3. Multiple psychiatric problems including depression, anxiety. 4. Dementia. RECOMMENDATIONS: 1. We will continue with current anticonvulsants including Dilantin and gabapentin. 2. Await electroencephalogram. OLIVE DR: Stefan TID: [id number]
--- NOTE | 2021-06-13 05:51 | PN ---
DATE: 06/12/2021 SUBJECTIVE: The patient denies any new medical or neurological complaints. He has not had any witnessed seizure activities since admission. The patient had a moderately abnormal EEG performed on 06/05/2021, which was consistent with an epileptic focus confined to the left temporal region. The patient has been on a subtherapeutic level of Dilantin and he has not had any recurrent seizure; however. OBJECTIVE: GENERAL: Obese male, not in acute distress. VITAL SIGNS: Stable, afebrile. HEENT: Normocephalic, atraumatic, otherwise unremarkable. NECK: Supple, negative for carotid bruit, lymphadenopathy or thyromegaly. LUNGS: Clear to A and P. CARDIOVASCULAR: Regular rhythm. Normal S1, S2. There is no S3, S4 or murmur. ABDOMEN: Soft. Bowel sounds positive. EXTREMITIES: Negative for cyanosis, clubbing or pedal edema. NEUROLOGIC: Mental status: The patient is alert and oriented to himself and situation. He knows he is in the hospital. The speech is fluent. There is no language dysfunction. Judgment and abstracting thinking are fair. The patient denies hallucination or delusion. Cranial nerves are intact. No focal motor or sensory deficit. The strength was 4/5 throughout. Deep tendon reflexes were symmetric and hypoactive with absent Achilles responses. Gait: The patient uses a walker for ambulation. IMPRESSION: 1. Longstanding history of a seizure disorder, likely due to previous hemorrhagic stroke and underlying left craniotomy with a moderately abnormal recent EEG consistent with an epileptic focus confined to the left temporal region, however, EEG did not show any epileptiform discharges. 2. Multiple medical problems including chronic obstructive pulmonary disease, hemorrhagic stroke, hypertension, diabetes mellitus. 3. Multiple psychiatric problems including depressions and anxiety. RECOMMENDATIONS: Adjust Dilantin dose to 400 mg at bedtime and check a phenytoin level after two days. We will continue with gabapentin as well. ADAN DR: Stefan TID: [id number]
[2021-06-13 06:28] VITALS: BP 132/72
[2021-06-13] MEDS: IPRATROPIUM/ALBUTEROL 20/100mcg/INH INHALER. INH SCH ×4 (08:00→21:07)
[2021-06-13] MEDS: ATORVASTATIN CALCIUM 10 MG TABLET. PO SCH (08:50)
[2021-06-13] MEDS: ASPIRIN ENTERIC COATED 81 MG TABLET.DR. PO SCH (08:50)
[2021-06-13] MEDS: TAMSULOSIN 0.4 MG CAP.ER.24H. PO SCH (08:50)
[2021-06-13] MEDS: CARVEDILOL 3.125 MG TABLET PO SCH ×2 (08:50→17:19)
[2021-06-13] MEDS: metFORMIN XR 500 MG TAB.ER.24H PO SCH (08:50)
[2021-06-13] MEDS: GABAPENTIN 300 MG CAPSULE. PO SCH ×2 (08:50→21:08)
[2021-06-13] MEDS: CYANOCOBALAMIN (VITAMIN B-12) 1,000 MCG TABLET. PO SCH (08:50)
--- NOTE | 2021-06-13 10:29 | NUR ---
Pt has been present and visible on the unit. During breakfast he developed a coughing fit that was so frequent and harsh that he coughed/vomited large amounts of phlegm. Lungs diminished and slight wheezes upon auscultation. This pattern of productive coughing fits in the morning has been happening frequently, will place on the rounds list for Dr Niño. Pt's interactions with others have been appropriate. Absent of verbal/physical aggression. He is compliant with whole medications, denies pain, and has no questions/concerns at this time. Plan of care continues, will pass to next shift.
[2021-06-13 16:12] VITALS: BP 172/67
[2021-06-13] MEDS: DULoxetine HCL 20 MG CAPSULE.DR PO SCH (21:07)
[2021-06-13] MEDS: PHENYTOIN SODIUM EXTENDED 100 MG CAPSULE PO SCH (21:08)
[2021-06-13] MEDS: MIRTAZAPINE 7.5 MG TABLET. PO SCH (21:08)
[2021-06-13] MEDS: DULoxetine HCL 30 MG CAPSULE.DR PO SCH (21:08)
--- NOTE | 2021-06-13 22:08 | PDOC ---
Exam Note: Leo Note: Please also refer to the separate dictated note~for this date of service dictated separately.~Patient seen individually. Discussed the patient with Nursing staff reviewed the chart.~Reviewed interim history and current functioning. Reviewed vital signs,~Labs/ Radiology~and current medications noted below. Continue current treatment with the changes noted in the dictated addendum note Assessment: Vital Signs/I&O: Vital Signs Date Time Temp Pulse Resp B/P (MAP) Pulse Ox O2 Delivery O2 Flow Rate FiO2 06/13/21 17:19 93 172/67 06/13/21 16:12 98.5 20 94 06/12/21 06:33 Room Air I & O 06/12/21 06/12/21 06/13/21 15:00 23:00 07:00 Intake Total 240 ml 360 ml Balance 240 ml 360 ml Labs: Laboratory Tests Test 06/13/21 07:38 Glucose (Fingerstick) 141 mg/dL (70-99) H Current Medications: Meds: Laboratory Tests Test 06/13/21 07:38 Glucose (Fingerstick) 141 mg/dL Current Medications Medications (Trade) Dose Ordered Sig/Aparna Route PRN Reason Start Time Stop Time Status Last Admin Dose Admin Acetaminophen (Tylenol) 650 mg PRN Q6HRS PRN PO MILD PAIN / TEMP > 100.3'F 05/17/21 14:45 06/10/21 00:45 Multi-Ingredient Ointment (Analgesic [place]) 1 inna PRN QID PRN TP MUSCLE PAIN 05/17/21 14:45 Al Hydroxide/Mg Hydroxide (Mylanta Plus Xs) 15 ml PRN AFTMEALHC PRN PO DYSPEPSIA 05/17/21 14:45 Magnesium Hydroxide (Milk Of Magnesia) 2,400 mg PRN QHS PRN PO CONSTIPATION 05/17/21 14:45 06/05/21 12:15 Aspirin (Aspirin Enteric Coated) 81 mg DAILY PO 05/18/21 09:00 06/13/21 08:50 Budesonide (Pulmicort) 0.5 mg RTBID IH 05/17/21 20:00 05/18/21 13:26 DC Carvedilol (Coreg) 3.125 mg BIDWMEALS PO 05/17/21 17:00 06/13/21 17:19 Lisinopril (Prinivil) 5 mg DAILY PO 05/18/21 09:00 05/25/21 09:35 DC 05/24/21 08:39 Metformin HCl (Glucophage Xr) 500 mg DAILYWBKFT PO 05/18/21 08:00 06/13/21 08:50 Phenytoin Sodium (Dilantin) 100 mg BID PO 05/17/21 21:00 05/18/21 21:00 DC 05/18/21 20:13 Tamsulosin HCl (Flomax) 0.4 mg DAILY PO 05/18/21 09:00 06/13/21 08:50 Cyanocobalamin (Vitamin B-12) 1,000 mcg DAILY PO 05/18/21 09:00 06/13/21 08:50 Non-Formulary Medication (Ipratropium/ Albuterol Sulfate (Combivent Respimat Inhal)) 1 puff QID INH 05/17/21 17:00 05/17/21 15:02 DC Atorvastatin Calcium (Lipitor) 10 mg DAILY PO 05/18/21 09:00 06/13/21 08:50 Albuterol/ Ipratropium (Duoneb) 3 ml RTQID NEB 05/17/21 16:00 05/17/21 20:45 DC Albuterol/ Ipratropium (Combivent Respimat 20-100 Mcg) 1 puff RTQID INH 05/17/21 20:00 06/13/21 21:07 Gabapentin (Neurontin) 300 mg BID PO 05/17/21 21:00 06/13/21 21:08 Fluticasone Furoate (ARNUITY 100mcg ELLIPTA) 1 puff DAILY INH 05/18/21 14:00 05/21/21 08:27 DC 05/20/21 08:41 Phenytoin Sodium (Dilantin) 300 mg DAILY08 PO 05/19/21 08:00 06/06/21 17:30 DC 06/06/21 08:30 Duloxetine HCl (Cymbalta) 30 mg DAILY PO 05/19/21 09:00 05/25/21 15:56 DC 05/25/21 12:21 Mirtazapine (Remeron) 7.5 mg QHS PO 05/19/21 21:00 06/13/21 21:08 Trazodone HCl (Desyrel) 50 mg PRN QHS PRN PO sleep 05/19/21 12:30 06/11/21 21:31 Divalproex Sodium (Depakote Sprinkles) 125 mg 0900,1300,1700 PO 05/25/21 09:00 05/25/21 16:36 DC 05/25/21 12:20 Duloxetine HCl (Cymbalta) 30 mg DAILY PO 05/26/21 09:00 05/25/21 16:36 DC Duloxetine HCl (Cymbalta) 20 mg DAILY PO 05/26/21 09:00 05/25/21 16:36 DC Duloxetine HCl (Cymbalta) 30 mg DAILY PO 05/26/21 09:00 06/03/21 13:28 DC 06/03/21 08:10 Duloxetine HCl (Cymbalta) 30 mg DAILY PO 06/04/21 09:00 06/06/21 17:51 DC 06/06/21 08:31 Duloxetine HCl (Cymbalta) 20 mg DAILY PO 06/04/21 09:00 06/06/21 17:30 DC 06/06/21 08:31 Duloxetine HCl (Cymbalta) 20 mg HS PO 06/07/21 21:00 06/13/21 21:07 Phenytoin Sodium (Dilantin) 300 mg HS PO 06/07/21 21:00 06/13/21 00:04 DC 06/12/21 21:29 Duloxetine HCl (Cymbalta) 30 mg HS PO 06/07/21 21:00 06/13/21 21:08 Olanzapine (ZyPREXA ZYDIS) 2.5 mg PRN Q2HRS PRN PO PSYCHOSIS 06/10/21 18:45 Phenytoin Sodium (Dilantin) 100 mg 1X ONCE PO 06/13/21 00:30 06/13/21 00:31 DC 06/13/21 00:23 Phenytoin Sodium (Dilantin) 400 mg HS PO 06/13/21 21:00 06/13/21 21:08 Current Medications Medications (Trade) Dose Ordered Sig/Aparna Route PRN Reason Start Time Stop Time Status Last Admin Dose Admin Phenytoin Sodium (Dilantin) 100 mg 1X ONCE PO 06/13/21 00:30 06/13/21 00:31 DC 06/13/21 00:23 Phenytoin Sodium (Dilantin) 400 mg HS PO 06/13/21 21:00 06/13/21 21:08 I have reviewed the current psychotropics carefully including drug interactions. Risk benefit ratio favors no change other than as noted in my dictated progress note. Diagnosis: Problems: (1) Major depressive disorder (2) Impulse control disorder, unspecified (3) Anxiety disorder, unspecified (4) Dementia, vascular, with depression (5) Dementia, vascular, with delusions (6) Major neurocognitive disorder NIK LOYA MD Jun 13, 2021 22:08
--- NOTE | 2021-06-13 22:20 | PN ---
DATE: 06/07/2021 SUBJECTIVE: The patient denies any new medical or neurological complaints. He denies any recurrent seizures. The nursing staff has not reported any seizure activities. The patient denies any recent head injuries or fall. Electroencephalogram was performed on 06/05/2021. The electroencephalogram was reviewed tonight and revealed abnormal signal of the ____ reversal phenomenon confined to the left mid and posterior temporal region, likely due to a previous craniotomy, suggestive of epileptic focus and possible potential for recurrent seizure. However, the background activity did not show any active epileptiform discharges throughout the recording. OBJECTIVE: GENERAL: Obese male, not in acute distress. VITAL SIGNS: Blood pressure 162/76, respiratory rate 18; pulse is 81, regular; oxygen saturation 97%, and temperature 97.5. HEENT: Normocephalic, atraumatic, otherwise unremarkable. NECK: Supple, negative for carotid bruit, lymphadenopathy or thyromegaly. LUNGS: Clear to A and P. CARDIOVASCULAR: Regular rate and rhythm. Normal S1, S2. ABDOMEN: Soft. EXTREMITIES: Negative for cyanosis, clubbing or edema. NEUROLOGIC: Mental status: The patient is alert and oriented x 2. The speech is fluent. There is no language dysfunction. Memory, judgment and abstracting thinking are fair. The patient denies hallucination or delusion. Cranial nerves are intact. No focal motor or sensory deficit. The strength was 4/5 throughout. Deep tendon reflexes were symmetric and hypoactive with absent Achilles responses. Gait: The patient uses a walker for ambulation. IMPRESSION: 1. History of seizure disorder, likely due to a previous hemorrhagic stroke, required craniotomy and evacuation of clot. The current EEG today revealed abnormal record suggestive of left mid and posterior temporal epileptic focus due to underlying structural lesions; however, no epileptiform discharges were seen during the recording. 2. Multiple medical problems, include diabetes mellitus, hypertension, chronic obstructive pulmonary disease, and dementia. 3. Multiple psychiatric problems including depression and anxiety. RECOMMENDATIONS: 1. Should the patient have witnessed seizure activities, we will adjust phenytoin dose and add 100 mg to a total of 400 mg at bedtime. 2. Continue with current management for underlying medical and psychiatric care. EMI DR: Stefan TID: [id number]
--- NOTE | 2021-06-13 23:03 | EEG ---
DATE OF SERVICE: 06/13/2021 REASON FOR PROCEDURE: Longstanding history of seizure disorder. EEG DESCRIPTION: This is a digital 19-channel EEG performed using the standard international 10-20 electrode placement system to rule out a central nervous system pathology versus seizure. The patient has had history of seizure disorder diagnosed several years ago, likely resulted from a hemorrhagic stroke; required a left craniotomy and evacuation of the blood clots. The patient is not a good historian; however, he stated he had seizure-like activities described as a generalized tonic-clonic seizure, but lately he has had intermittent complex partial seizure. Since admission, the patient has not had any witnessed recurrent seizure; however, he reported having some episodes when he became confused and disoriented and drowsy. The patient did not have any recurrent urinary or bowel incontinence during the spells. It was reported by him that he had an episode on 06/04/2021, but no nursing staff had witnessed any seizure-like activities on that day. The EEG opened with the patient in the awake state, characterized by posterior dominant rhythm of 6 to 7 cycles a second with an amplitude of 25 to 35 microvolts. The patient achieved stage I and early stage II sleep, characterized by further slowing of the posterior dominant rhythm and attenuation of the amplitudes. Photic stimulation was not performed. As EEG goes on the background shows phased reversal phenomena, confined mainly to the left mid and posterior temporal regions, throughout the waking and drowsy records. No epileptiform activities were seen throughout the recording or any active clinical seizure. IMPRESSION: This is a moderately abnormal waking and drowsy record due to appearance of phased reversal phenomena, confined to the left temporal regions. No epileptiform activities were seen. The lack of epileptiform discharges does not always rule out seizure; therefore, clinical correlation is advised. JO-ANN DR: Stefan TID: [id number]
--- NOTE | 2021-06-14 00:09 | NUR ---
Pt withdrawn to room, lying in bed when approached. Pt calm, interactive, and singing during encounter. Pt cooperative with assessment and compliant with medications administered whole. No paranoia, hallucinations, or delusions noted thus far this shift.
[2021-06-14 05:37] VITALS: BP 166/67
[2021-06-14] MEDS: ASPIRIN ENTERIC COATED 81 MG TABLET.DR. PO SCH (08:19)
[2021-06-14] MEDS: CYANOCOBALAMIN (VITAMIN B-12) 1,000 MCG TABLET. PO SCH (08:19)
[2021-06-14] MEDS: ATORVASTATIN CALCIUM 10 MG TABLET. PO SCH (08:19)
[2021-06-14] MEDS: IPRATROPIUM/ALBUTEROL 20/100mcg/INH INHALER. INH SCH ×4 (08:19→20:38)
[2021-06-14] MEDS: GABAPENTIN 300 MG CAPSULE. PO SCH ×2 (08:19→20:39)
[2021-06-14] MEDS: CARVEDILOL 3.125 MG TABLET PO SCH ×2 (08:20→16:43)
[2021-06-14] MEDS: metFORMIN XR 500 MG TAB.ER.24H PO SCH (08:20)
[2021-06-14] MEDS: TAMSULOSIN 0.4 MG CAP.ER.24H. PO SCH (08:20)
--- NOTE | 2021-06-14 09:10 | PDOC ---
Exam Note: Leo Note: This note is a late entry for 06/12/2021 covers elements not covered in my initial note. Subjective: The patient was seen individually in the evening of 06/12/2021 with Maryjane KOWALSKI, discussed and reviewed the chart. The patient slept 6-1/4 hours previous night. The patient is compliant with medications. We are still waiting for Dr. Newman to look at the EEG and make a determination whether to continue and adjust Dilantin to therapeutic level of eliminate it altogether. He remains withdrawn, spends much time in his room. Review of Systems: Ambulation impaired in wheelchair. No CV, , pulmonary, eye, ENT system symptoms on review. Reliability varies. Mental Status Exam: The patient is oriented to himself and situation. I met with him in his room. Speech moderate latency coherent. Often response is monosyllabic. Abstraction fair. Computation impaired. Language function intact. Mood and affect somewhat withdrawn. No suicidal or homicidal ideation. Laboratory Data: Reviewed. Impression: Major depressive disorder with psychotic features. Major neuro cognitive disorder, early vascular with delusion and depression. Anxiety disorder unspecified. Impulse control disorder unspecified. Plan: Continue current psychotropics. After I met with the patient half an hour late, I was walking down the corridor and he was trying to ambulate down the corridor on his own holding on to the handrails on the side wall. I did alert the nursing staff and Wallace intervened. He is a fall risk. Assessment: Vital Signs/I&O: Vital Signs Date Time Temp Pulse Resp B/P (MAP) Pulse Ox O2 Delivery O2 Flow Rate FiO2 06/14/21 08:20 98 166/67 06/14/21 05:37 97.2 22 93 Room Air I & O 06/13/21 06/13/21 06/14/21 14:59 22:59 06:59 Intake Total 360 ml 480 ml 120 ml Balance 360 ml 480 ml 120 ml Labs: Laboratory Tests Test 06/14/21 07:59 Glucose (Fingerstick) 121 mg/dL (70-99) H Current Medications: Meds: Laboratory Tests Test 06/14/21 07:59 Glucose (Fingerstick) 121 mg/dL Current Medications Medications (Trade) Dose Ordered Sig/Aparna Route PRN Reason Start Time Stop Time Status Last Admin Dose Admin Acetaminophen (Tylenol) 650 mg PRN Q6HRS PRN PO MILD PAIN / TEMP > 100.3'F 05/17/21 14:45 06/10/21 00:45 Multi-Ingredient Ointment (Analgesic [place]) 1 inna PRN QID PRN TP MUSCLE PAIN 05/17/21 14:45 Al Hydroxide/Mg Hydroxide (Mylanta Plus Xs) 15 ml PRN AFTMEALHC PRN PO DYSPEPSIA 05/17/21 14:45 Magnesium Hydroxide (Milk Of Magnesia) 2,400 mg PRN QHS PRN PO CONSTIPATION 05/17/21 14:45 06/05/21 12:15 Aspirin (Aspirin Enteric Coated) 81 mg DAILY PO 05/18/21 09:00 06/14/21 08:19 Budesonide (Pulmicort) 0.5 mg RTBID IH 05/17/21 20:00 05/18/21 13:26 DC Carvedilol (Coreg) 3.125 mg BIDWMEALS PO 05/17/21 17:00 06/14/21 08:20 Lisinopril (Prinivil) 5 mg DAILY PO 05/18/21 09:00 05/25/21 09:35 DC 05/24/21 08:39 Metformin HCl (Glucophage Xr) 500 mg DAILYWBKFT PO 05/18/21 08:00 06/14/21 08:20 Phenytoin Sodium (Dilantin) 100 mg BID PO 05/17/21 21:00 05/18/21 21:00 DC 05/18/21 20:13 Tamsulosin HCl (Flomax) 0.4 mg DAILY PO 05/18/21 09:00 06/14/21 08:20 Cyanocobalamin (Vitamin B-12) 1,000 mcg DAILY PO 05/18/21 09:00 06/14/21 08:19 Non-Formulary Medication (Ipratropium/ Albuterol Sulfate (Combivent Respimat Inhal)) 1 puff QID INH 05/17/21 17:00 05/17/21 15:02 DC Atorvastatin Calcium (Lipitor) 10 mg DAILY PO 05/18/21 09:00 06/14/21 08:19 Albuterol/ Ipratropium (Duoneb) 3 ml RTQID NEB 05/17/21 16:00 05/17/21 20:45 DC Albuterol/ Ipratropium (Combivent Respimat 20-100 Mcg) 1 puff RTQID INH 05/17/21 20:00 06/14/21 08:19 Gabapentin (Neurontin) 300 mg BID PO 05/17/21 21:00 06/14/21 08:19 Fluticasone Furoate (ARNUITY 100mcg ELLIPTA) 1 puff DAILY INH 05/18/21 14:00 05/21/21 08:27 DC 05/20/21 08:41 Phenytoin Sodium (Dilantin) 300 mg DAILY08 PO 05/19/21 08:00 06/06/21 17:30 DC 06/06/21 08:30 Duloxetine HCl (Cymbalta) 30 mg DAILY PO 05/19/21 09:00 05/25/21 15:56 DC 05/25/21 12:21 Mirtazapine (Remeron) 7.5 mg QHS PO 05/19/21 21:00 06/13/21 21:08 Trazodone HCl (Desyrel) 50 mg PRN QHS PRN PO sleep 05/19/21 12:30 06/11/21 21:31 Divalproex Sodium (Depakote Sprinkles) 125 mg 0900,1300,1700 PO 05/25/21 09:00 05/25/21 16:36 DC 05/25/21 12:20 Duloxetine HCl (Cymbalta) 30 mg DAILY PO 05/26/21 09:00 05/25/21 16:36 DC Duloxetine HCl (Cymbalta) 20 mg DAILY PO 05/26/21 09:00 05/25/21 16:36 DC Duloxetine HCl (Cymbalta) 30 mg DAILY PO 05/26/21 09:00 06/03/21 13:28 DC 06/03/21 08:10 Duloxetine HCl (Cymbalta) 30 mg DAILY PO 06/04/21 09:00 06/06/21 17:51 DC 06/06/21 08:31 Duloxetine HCl (Cymbalta) 20 mg DAILY PO 06/04/21 09:00 06/06/21 17:30 DC 06/06/21 08:31 Duloxetine HCl (Cymbalta) 20 mg HS PO 06/07/21 21:00 06/13/21 21:07 Phenytoin Sodium (Dilantin) 300 mg HS PO 06/07/21 21:00 06/13/21 00:04 DC 06/12/21 21:29 Duloxetine HCl (Cymbalta) 30 mg HS PO 06/07/21 21:00 06/13/21 21:08 Olanzapine (ZyPREXA ZYDIS) 2.5 mg PRN Q2HRS PRN PO PSYCHOSIS 06/10/21 18:45 Phenytoin Sodium (Dilantin) 100 mg 1X ONCE PO 06/13/21 00:30 06/13/21 00:31 DC 06/13/21 00:23 Phenytoin Sodium (Dilantin) 400 mg HS PO 06/13/21 21:00 06/13/21 21:08 Current Medications Medications (Trade) Dose Ordered Sig/Aparna Route PRN Reason Start Time Stop Time Status Last Admin Dose Admin Phenytoin Sodium (Dilantin) 400 mg HS PO 06/13/21 21:00 06/13/21 21:08 I have reviewed the current psychotropics carefully including drug interactions. Risk benefit ratio favors no change other than as noted in my dictated progress note. Diagnosis: Problems: (1) Major depressive disorder (2) Impulse control disorder, unspecified (3) Anxiety disorder, unspecified (4) Dementia, vascular, with depression (5) Dementia, vascular, with delusions (6) Major neurocognitive disorder NIK LOYA MD Jun 14, 2021 09:10
--- NOTE | 2021-06-14 11:54 | NUR ---
Patient is alert, calm signing and yodeling in the dining room for breakfast. Med compliant, no complaints of pain. Pt sleeping since breakfast. WCTM.
[2021-06-14 16:22] VITALS: BP 183/64
[2021-06-14] MEDS: DULoxetine HCL 20 MG CAPSULE.DR PO SCH (20:39)
[2021-06-14] MEDS: DULoxetine HCL 30 MG CAPSULE.DR PO SCH (20:39)
[2021-06-14] MEDS: MIRTAZAPINE 7.5 MG TABLET. PO SCH (20:39)
[2021-06-14] MEDS: PHENYTOIN SODIUM EXTENDED 100 MG CAPSULE PO SCH (20:39)
--- NOTE | 2021-06-14 22:07 | PDOC ---
Exam Note: Leo Note: Please also refer to the separate dictated note~for this date of service dictated separately.~Patient seen individually. Discussed the patient with Nursing staff reviewed the chart.~Reviewed interim history and current functioning. Reviewed vital signs,~Labs/ Radiology~and current medications noted below. Continue current treatment with the changes noted in the dictated addendum note Assessment: Vital Signs/I&O: Vital Signs Date Time Temp Pulse Resp B/P (MAP) Pulse Ox O2 Delivery O2 Flow Rate FiO2 06/14/21 16:43 90 183/64 06/14/21 16:22 97.6 18 95 06/14/21 05:37 Room Air I & O 06/13/21 06/13/21 06/14/21 14:59 22:59 06:59 Intake Total 360 ml 480 ml 120 ml Balance 360 ml 480 ml 120 ml Labs: Laboratory Tests Test 06/14/21 07:59 Glucose (Fingerstick) 121 mg/dL (70-99) H Current Medications: Meds: Laboratory Tests Test 06/14/21 07:59 Glucose (Fingerstick) 121 mg/dL Current Medications Medications (Trade) Dose Ordered Sig/Aparna Route PRN Reason Start Time Stop Time Status Last Admin Dose Admin Acetaminophen (Tylenol) 650 mg PRN Q6HRS PRN PO MILD PAIN / TEMP > 100.3'F 05/17/21 14:45 06/10/21 00:45 Multi-Ingredient Ointment (Analgesic [place]) 1 inna PRN QID PRN TP MUSCLE PAIN 05/17/21 14:45 Al Hydroxide/Mg Hydroxide (Mylanta Plus Xs) 15 ml PRN AFTMEALHC PRN PO DYSPEPSIA 05/17/21 14:45 Magnesium Hydroxide (Milk Of Magnesia) 2,400 mg PRN QHS PRN PO CONSTIPATION 05/17/21 14:45 06/05/21 12:15 Aspirin (Aspirin Enteric Coated) 81 mg DAILY PO 05/18/21 09:00 06/14/21 08:19 Budesonide (Pulmicort) 0.5 mg RTBID IH 05/17/21 20:00 05/18/21 13:26 DC Carvedilol (Coreg) 3.125 mg BIDWMEALS PO 05/17/21 17:00 06/14/21 16:43 Lisinopril (Prinivil) 5 mg DAILY PO 05/18/21 09:00 05/25/21 09:35 DC 05/24/21 08:39 Metformin HCl (Glucophage Xr) 500 mg DAILYWBKFT PO 05/18/21 08:00 06/14/21 08:20 Phenytoin Sodium (Dilantin) 100 mg BID PO 05/17/21 21:00 05/18/21 21:00 DC 05/18/21 20:13 Tamsulosin HCl (Flomax) 0.4 mg DAILY PO 05/18/21 09:00 06/14/21 08:20 Cyanocobalamin (Vitamin B-12) 1,000 mcg DAILY PO 05/18/21 09:00 06/14/21 08:19 Non-Formulary Medication (Ipratropium/ Albuterol Sulfate (Combivent Respimat Inhal)) 1 puff QID INH 05/17/21 17:00 05/17/21 15:02 DC Atorvastatin Calcium (Lipitor) 10 mg DAILY PO 05/18/21 09:00 06/14/21 08:19 Albuterol/ Ipratropium (Duoneb) 3 ml RTQID NEB 05/17/21 16:00 05/17/21 20:45 DC Albuterol/ Ipratropium (Combivent Respimat 20-100 Mcg) 1 puff RTQID INH 05/17/21 20:00 06/14/21 20:38 Gabapentin (Neurontin) 300 mg BID PO 05/17/21 21:00 06/14/21 20:39 Fluticasone Furoate (ARNUITY 100mcg ELLIPTA) 1 puff DAILY INH 05/18/21 14:00 05/21/21 08:27 DC 05/20/21 08:41 Phenytoin Sodium (Dilantin) 300 mg DAILY08 PO 05/19/21 08:00 06/06/21 17:30 DC 06/06/21 08:30 Duloxetine HCl (Cymbalta) 30 mg DAILY PO 05/19/21 09:00 05/25/21 15:56 DC 05/25/21 12:21 Mirtazapine (Remeron) 7.5 mg QHS PO 05/19/21 21:00 06/14/21 20:39 Trazodone HCl (Desyrel) 50 mg PRN QHS PRN PO sleep 05/19/21 12:30 06/11/21 21:31 Divalproex Sodium (Depakote Sprinkles) 125 mg 0900,1300,1700 PO 05/25/21 09:00 05/25/21 16:36 DC 05/25/21 12:20 Duloxetine HCl (Cymbalta) 30 mg DAILY PO 05/26/21 09:00 05/25/21 16:36 DC Duloxetine HCl (Cymbalta) 20 mg DAILY PO 05/26/21 09:00 05/25/21 16:36 DC Duloxetine HCl (Cymbalta) 30 mg DAILY PO 05/26/21 09:00 06/03/21 13:28 DC 06/03/21 08:10 Duloxetine HCl (Cymbalta) 30 mg DAILY PO 06/04/21 09:00 06/06/21 17:51 DC 06/06/21 08:31 Duloxetine HCl (Cymbalta) 20 mg DAILY PO 06/04/21 09:00 06/06/21 17:30 DC 06/06/21 08:31 Duloxetine HCl (Cymbalta) 20 mg HS PO 06/07/21 21:00 06/14/21 20:39 Phenytoin Sodium (Dilantin) 300 mg HS PO 06/07/21 21:00 06/13/21 00:04 DC 06/12/21 21:29 Duloxetine HCl (Cymbalta) 30 mg HS PO 06/07/21 21:00 06/14/21 20:39 Olanzapine (ZyPREXA ZYDIS) 2.5 mg PRN Q2HRS PRN PO PSYCHOSIS 06/10/21 18:45 Phenytoin Sodium (Dilantin) 100 mg 1X ONCE PO 06/13/21 00:30 06/13/21 00:31 DC 06/13/21 00:23 Phenytoin Sodium (Dilantin) 400 mg HS PO 06/13/21 21:00 06/14/21 20:39 Guaifenesin (Mucinex Er) 600 mg BID PO 06/14/21 21:00 06/14/21 20:39 Current Medications Medications (Trade) Dose Ordered Sig/Aparna Route PRN Reason Start Time Stop Time Status Last Admin Dose Admin Guaifenesin (Mucinex Er) 600 mg BID PO 06/14/21 21:00 06/14/21 20:39 I have reviewed the current psychotropics carefully including drug interactions. Risk benefit ratio favors no change other than as noted in my dictated progress note. Diagnosis: Problems: (1) Major depressive disorder (2) Impulse control disorder, unspecified (3) Anxiety disorder, unspecified (4) Dementia, vascular, with depression (5) Dementia, vascular, with delusions (6) Major neurocognitive disorder NIK LOYA MD Jun 14, 2021 22:07
--- NOTE | 2021-06-14 23:29 | NUR ---
Pt sitting in the day room, socializing with peers when approached. Pt calm, pleasant, and interactive. Pt cooperative with assessment and compliant with medications administered whole. No paranoia, hallucinations, or delusions noted thus far this shift.
[2021-06-15 05:33] VITALS: BP 184/86
--- NOTE | 2021-06-15 07:15 | NUR ---
Pt sitting in in day room. Pt has hx of leaning forward in . P fell foward and hit face on floor. Bridge of nose spli and bleeding and slightly deformed. BS taken WNL. VSS. Pt assisted to chair. Addendum: 06/15/21 at 1419 by JOSEPH ARIAS RN Wrong pt.
[2021-06-15] MEDS: IPRATROPIUM/ALBUTEROL 20/100mcg/INH INHALER. INH SCH ×4 (08:00→20:17)
[2021-06-15 08:48] LABS: BASO # 0.1 x10^3/uL (0.0-0.2); BASO % 1 % (0-3); EOS # 0.9 x10^3/uL (0.0-0.7); EOS % 12 % (0-3); HEMATOCRIT 35.3 % (39.0-53.0); HEMOGLOBIN 11.7 g/dL (13.0-17.5); LYMPH # 2.2 x10^3/uL (1.0-4.8); LYMPH % 28 % (24-48); MEAN CORPUSCULAR HEMOGLOBIN 34 pg (25-35); MEAN CORPUSCULAR HGB CONC 33 g/dL (31-37); MEAN CORPUSCULAR VOLUME 101 fL (79-100); MONO # 0.8 x10^3/uL (0.0-1.1); MONO % 11 % (0-9); NEUT % 50 % (31-73); PLATELET COUNT 121 x10^3/uL (140-400); RED BLOOD COUNT 3.48 x10^6/uL (4.30-5.70); RED CELL DISTRIBUTION WIDTH 13.7 % (11.5-14.5)
[2021-06-15] MEDS: CYANOCOBALAMIN (VITAMIN B-12) 1,000 MCG TABLET. PO SCH (08:51)
[2021-06-15] MEDS: ASPIRIN ENTERIC COATED 81 MG TABLET.DR. PO SCH (08:51)
[2021-06-15] MEDS: ATORVASTATIN CALCIUM 10 MG TABLET. PO SCH (08:51)
[2021-06-15] MEDS: GABAPENTIN 300 MG CAPSULE. PO SCH ×2 (08:52→20:11)
[2021-06-15] MEDS: TAMSULOSIN 0.4 MG CAP.ER.24H. PO SCH (08:52)
[2021-06-15] MEDS: metFORMIN XR 500 MG TAB.ER.24H PO SCH (08:52)
[2021-06-15] MEDS: CARVEDILOL 3.125 MG TABLET PO SCH ×2 (08:52→17:00)
[2021-06-15 09:03] LABS: ALBUMIN 3.5 g/dL (3.4-5.0); CALCIUM 9.2 mg/dL (8.5-10.1); CREATININE 1.2 mg/dL (0.7-1.3); GFR 58.6; POTASSIUM 4.7 mmol/L (3.5-5.1); TOTAL BILIRUBIN 0.5 mg/dL (0.2-1.0); TOTAL PROTEIN 7.1 g/dL (6.4-8.2)
--- NOTE | 2021-06-15 09:20 | NUR ---
Dr Niño notified. CT head and face performed. FX o nos. Dr Thompson here to see pt. Glued laceration to nose. Pt tolerated well. Minimal bleeding noted to Kaylee canales. Addendum: 06/15/21 at 1422 by JOSEPH ARIAS RN wrong pt
--- NOTE | 2021-06-15 09:38 | PDOC ---
Exam Note: Leo Note: This note is a late entry for 06/13/2021 covers elements not covered in my initial note. Subjective: The patient was seen individually in the evening of 06/13/2021 with Maryjane KOWALSKI, discussed and reviewed the chart. The patient slept 6 hours previous night. Overall the patient remains withdrawn, spends much time in his room. EEG as read by Dr. Newman shows focal seizure lesion in the left temporal area. Dilantin has been increased to 400 mg a day with repeat level to be done to reach therapeutic level but I will leave this to Dr. Newman. Review of Systems: Ambulation impaired in wheelchair. No CV, , pulmonary, eye, ENT system symptoms on review. Reliability varies. Mental Status Exam: The patient is oriented to himself and situation. I explained all of the above in detail and he seemed to understand the reason for the increase of Dilantin and stated in the past when he was driving if felt he could have a seizure he would pull off the highway for an hour or two it till it went away. Speech moderate latency coherent. Often response is monosyllabic. Abstraction fair. Computation impaired. Language function intact. Mood and affect somewhat withdrawn. No suicidal or homicidal ideation. Laboratory Data: Reviewed. 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 Anxiety disorder unspecified. Impulse control disorder unspecified. Plan: Continue current psychotropics and as noted above. Assessment: Vital Signs/I&O: Vital Signs Date Time Temp Pulse Resp B/P (MAP) Pulse Ox O2 Delivery O2 Flow Rate FiO2 06/15/21 08:52 96 184/86 06/15/21 05:33 97.7 20 94 06/14/21 05:37 Room Air I & O 06/14/21 06/14/21 06/15/21 14:59 22:59 06:59 Intake Total 840 ml 240 ml Balance 840 ml 240 ml Labs: Laboratory Tests Test 06/15/21 07:40 06/15/21 08:30 Glucose (Fingerstick) 109 mg/dL (70-99) H White Blood Count 8.0 x10^3/uL (4.0-11.0) Red Blood Count 3.48 x10^6/uL (4.30-5.70) L Hemoglobin 11.7 g/dL (13.0-17.5) L Hematocrit 35.3 % (39.0-53.0) L Mean Corpuscular Volume 101 fL (79-100) H Mean Corpuscular Hemoglobin 34 pg (25-35) Mean Corpuscular Hemoglobin Concent 33 g/dL (31-37) Red Cell Distribution Width 13.7 % (11.5-14.5) Platelet Count 121 x10^3/uL (140-400) L Neutrophils (%) (Auto) 50 % (31-73) Lymphocytes (%) (Auto) 28 % (24-48) Monocytes (%) (Auto) 11 % (0-9) H Eosinophils (%) (Auto) 12 % (0-3) H Basophils (%) (Auto) 1 % (0-3) Neutrophils # (Auto) 4.0 x10^3uL (1.8-7.7) Lymphocytes # (Auto) 2.2 x10^3/uL (1.0-4.8) Monocytes # (Auto) 0.8 x10^3/uL (0.0-1.1) Eosinophils # (Auto) 0.9 x10^3/uL (0.0-0.7) H Basophils # (Auto) 0.1 x10^3/uL (0.0-0.2) Sodium Level 144 mmol/L (136-145) Potassium Level 4.7 mmol/L (3.5-5.1) Chloride Level 107 mmol/L (98-107) Carbon Dioxide Level 30 mmol/L (21-32) Anion Gap 7 (6-14) Blood Urea Nitrogen 47 mg/dL (8-26) H Creatinine 1.2 mg/dL (0.7-1.3) Estimated GFR (Cockcroft-Gault) 58.6 BUN/Creatinine Ratio 39 (6-20) H Glucose Level 131 mg/dL (70-99) H Calcium Level 9.2 mg/dL (8.5-10.1) Total Bilirubin 0.5 mg/dL (0.2-1.0) Aspartate Amino Transferase (AST) 23 U/L (15-37) Alanine Aminotransferase (ALT) 22 U/L (16-63) Alkaline Phosphatase 130 U/L (46-116) H Total Protein 7.1 g/dL (6.4-8.2) Albumin 3.5 g/dL (3.4-5.0) Albumin/Globulin Ratio 1.0 (1.0-1.7) Phenytoin (Dilantin) Level 9.0 mcg/mL (10.0-20.0) L Phenytoin Last Dose Date 06/14/21 Phenytoin Last Dose Time 2100 Current Medications: Meds: Laboratory Tests Test 06/15/21 07:40 06/15/21 08:30 Glucose (Fingerstick) 109 mg/dL White Blood Count 8.0 x10^3/uL Red Blood Count 3.48 x10^6/uL Hemoglobin 11.7 g/dL Hematocrit 35.3 % Mean Corpuscular Volume 101 fL Mean Corpuscular Hemoglobin 34 pg Mean Corpuscular Hemoglobin Concent 33 g/dL Red Cell Distribution Width 13.7 % Platelet Count 121 x10^3/uL Neutrophils (%) (Auto) 50 % Lymphocytes (%) (Auto) 28 % Monocytes (%) (Auto) 11 % Eosinophils (%) (Auto) 12 % Basophils (%) (Auto) 1 % Neutrophils # (Auto) 4.0 x10^3uL Lymphocytes # (Auto) 2.2 x10^3/uL Monocytes # (Auto) 0.8 x10^3/uL Eosinophils # (Auto) 0.9 x10^3/uL Basophils # (Auto) 0.1 x10^3/uL Sodium Level 144 mmol/L Potassium Level 4.7 mmol/L Chloride Level 107 mmol/L Carbon Dioxide Level 30 mmol/L Anion Gap 7 Blood Urea Nitrogen 47 mg/dL Creatinine 1.2 mg/dL Estimated GFR (Cockcroft-Gault) 58.6 BUN/Creatinine Ratio 39 Glucose Level 131 mg/dL Calcium Level 9.2 mg/dL Total Bilirubin 0.5 mg/dL Aspartate Amino Transf (AST/SGOT) 23 U/L Alanine Aminotransferase (ALT/SGPT) 22 U/L Alkaline Phosphatase 130 U/L Total Protein 7.1 g/dL Albumin 3.5 g/dL Albumin/Globulin Ratio 1.0 Phenytoin (Dilantin) Level 9.0 mcg/mL Phenytoin Last Dose Date 06/14/21 Phenytoin Last Dose Time 2100 Current Medications Medications (Trade) Dose Ordered Sig/Aparna Route PRN Reason Start Time Stop Time Status Last Admin Dose Admin Acetaminophen (Tylenol) 650 mg PRN Q6HRS PRN PO MILD PAIN / TEMP > 100.3'F 05/17/21 14:45 06/10/21 00:45 Multi-Ingredient Ointment (Analgesic [place]) 1 inna PRN QID PRN TP MUSCLE PAIN 05/17/21 14:45 Al Hydroxide/Mg Hydroxide (Mylanta Plus Xs) 15 ml PRN AFTMEALHC PRN PO DYSPEPSIA 05/17/21 14:45 Magnesium Hydroxide (Milk Of Magnesia) 2,400 mg PRN QHS PRN PO CONSTIPATION 05/17/21 14:45 06/05/21 12:15 Aspirin (Aspirin Enteric Coated) 81 mg DAILY PO 05/18/21 09:00 06/15/21 08:51 Budesonide (Pulmicort) 0.5 mg RTBID IH 05/17/21 20:00 05/18/21 13:26 DC Carvedilol (Coreg) 3.125 mg BIDWMEALS PO 05/17/21 17:00 06/15/21 08:52 Lisinopril (Prinivil) 5 mg DAILY PO 05/18/21 09:00 05/25/21 09:35 DC 05/24/21 08:39 Metformin HCl (Glucophage Xr) 500 mg DAILYWBKFT PO 05/18/21 08:00 06/15/21 08:52 Phenytoin Sodium (Dilantin) 100 mg BID PO 05/17/21 21:00 05/18/21 21:00 DC 05/18/21 20:13 Tamsulosin HCl (Flomax) 0.4 mg DAILY PO 05/18/21 09:00 06/15/21 08:52 Cyanocobalamin (Vitamin B-12) 1,000 mcg DAILY PO 05/18/21 09:00 06/15/21 08:51 Non-Formulary Medication (Ipratropium/ Albuterol Sulfate (Combivent Respimat Inhal)) 1 puff QID INH 05/17/21 17:00 05/17/21 15:02 DC Atorvastatin Calcium (Lipitor) 10 mg DAILY PO 05/18/21 09:00 06/15/21 08:51 Albuterol/ Ipratropium (Duoneb) 3 ml RTQID NEB 05/17/21 16:00 05/17/21 20:45 DC Albuterol/ Ipratropium (Combivent Respimat 20-100 Mcg) 1 puff RTQID INH 05/17/21 20:00 06/15/21 08:00 Gabapentin (Neurontin) 300 mg BID PO 05/17/21 21:00 06/15/21 08:52 Fluticasone Furoate (ARNUITY 100mcg ELLIPTA) 1 puff DAILY INH 05/18/21 14:00 05/21/21 08:27 DC 05/20/21 08:41 Phenytoin Sodium (Dilantin) 300 mg DAILY08 PO 05/19/21 08:00 06/06/21 17:30 DC 06/06/21 08:30 Duloxetine HCl (Cymbalta) 30 mg DAILY PO 05/19/21 09:00 05/25/21 15:56 DC 05/25/21 12:21 Mirtazapine (Remeron) 7.5 mg QHS PO 05/19/21 21:00 06/14/21 20:39 Trazodone HCl (Desyrel) 50 mg PRN QHS PRN PO sleep 05/19/21 12:30 06/11/21 21:31 Divalproex Sodium (Depakote Sprinkles) 125 mg 0900,1300,1700 PO 05/25/21 09:00 05/25/21 16:36 DC 05/25/21 12:20 Duloxetine HCl (Cymbalta) 30 mg DAILY PO 05/26/21 09:00 05/25/21 16:36 DC Duloxetine HCl (Cymbalta) 20 mg DAILY PO 05/26/21 09:00 05/25/21 16:36 DC Duloxetine HCl (Cymbalta) 30 mg DAILY PO 05/26/21 09:00 06/03/21 13:28 DC 06/03/21 08:10 Duloxetine HCl (Cymbalta) 30 mg DAILY PO 06/04/21 09:00 06/06/21 17:51 DC 06/06/21 08:31 Duloxetine HCl (Cymbalta) 20 mg DAILY PO 06/04/21 09:00 06/06/21 17:30 DC 06/06/21 08:31 Duloxetine HCl (Cymbalta) 20 mg HS PO 06/07/21 21:00 06/14/21 20:39 Phenytoin Sodium (Dilantin) 300 mg HS PO 06/07/21 21:00 06/13/21 00:04 DC 06/12/21 21:29 Duloxetine HCl (Cymbalta) 30 mg HS PO 06/07/21 21:00 06/14/21 20:39 Olanzapine (ZyPREXA ZYDIS) 2.5 mg PRN Q2HRS PRN PO PSYCHOSIS 06/10/21 18:45 Phenytoin Sodium (Dilantin) 100 mg 1X ONCE PO 06/13/21 00:30 06/13/21 00:31 DC 06/13/21 00:23 Phenytoin Sodium (Dilantin) 400 mg HS PO 06/13/21 21:00 06/14/21 20:39 Guaifenesin (Mucinex Er) 600 mg BID PO 06/14/21 21:00 06/15/21 08:52 Current Medications Medications (Trade) Dose Ordered Sig/Aparna Route PRN Reason Start Time Stop Time Status Last Admin Dose Admin Guaifenesin (Mucinex Er) 600 mg BID PO 06/14/21 21:00 06/15/21 08:52 I have reviewed the current psychotropics carefully including drug interactions. Risk benefit ratio favors no change other than as noted in my dictated progress note. Diagnosis: Problems: (1) Major depressive disorder (2) Impulse control disorder, unspecified (3) Anxiety disorder, unspecified (4) Dementia, vascular, with depression (5) Dementia, vascular, with delusions (6) Major neurocognitive disorder NIK LOYA MD Jun 15, 2021 09:38
--- NOTE | 2021-06-15 11:40 | NUR ---
LM message or pt son to return call regarding pt fall. Addendum: 06/15/21 at 1415 by JOSEPH ARIAS RN Time should be 0925.
--- NOTE | 2021-06-15 11:41 | NUR ---
Son returned call. Informed of pt condition. Pt stable. Addendum: 06/15/21 at 1421 by JOSEPH ARIAS RN wrong pt
--- NOTE | 2021-06-15 13:00 | NUR ---
Pt refused to get up for lunch. tired after taking tramadol for nose pain. Pt did drink a glucerna. Addendum: 06/15/21 at 1420 by JOSEPH ARIAS RN wrong pt
[2021-06-15 16:14] VITALS: BP 143/68
--- NOTE | 2021-06-15 17:00 | NUR ---
Pt up in [place] for meals. Has been in pleasant spirits. compliant with meds and cares.
[2021-06-15] MEDS: MIRTAZAPINE 7.5 MG TABLET. PO SCH (20:11)
[2021-06-15] MEDS: DULoxetine HCL 20 MG CAPSULE.DR PO SCH (20:12)
[2021-06-15] MEDS: DULoxetine HCL 30 MG CAPSULE.DR PO SCH (20:12)
[2021-06-15] MEDS: PHENYTOIN SODIUM EXTENDED 100 MG CAPSULE PO SCH (20:12)
[2021-06-15] MEDS: MAGNESIUM HYDROXIDE 2,400 MG/30 ML ORAL.SUSP. PO PRN (20:17)
--- NOTE | 2021-06-15 22:04 | PDOC ---
Exam Note: Leo Note: Please also refer to the separate dictated note~for this date of service dictated separately.~Patient seen individually. Discussed the patient with Nursing staff reviewed the chart.~Reviewed interim history and current functioning. Reviewed vital signs,~Labs/ Radiology~and current medications noted below. Continue current treatment with the changes noted in the dictated addendum note Assessment: Vital Signs/I&O: Vital Signs Date Time Temp Pulse Resp B/P (MAP) Pulse Ox O2 Delivery O2 Flow Rate FiO2 06/15/21 17:00 82 143/68 06/15/21 16:14 97.8 20 96 Room Air I & O 06/14/21 06/14/21 06/15/21 14:59 22:59 06:59 Intake Total 840 ml 240 ml Balance 840 ml 240 ml Labs: Laboratory Tests Test 06/15/21 07:40 06/15/21 08:30 Glucose (Fingerstick) 109 mg/dL (70-99) H White Blood Count 8.0 x10^3/uL (4.0-11.0) Red Blood Count 3.48 x10^6/uL (4.30-5.70) L Hemoglobin 11.7 g/dL (13.0-17.5) L Hematocrit 35.3 % (39.0-53.0) L Mean Corpuscular Volume 101 fL (79-100) H Mean Corpuscular Hemoglobin 34 pg (25-35) Mean Corpuscular Hemoglobin Concent 33 g/dL (31-37) Red Cell Distribution Width 13.7 % (11.5-14.5) Platelet Count 121 x10^3/uL (140-400) L Neutrophils (%) (Auto) 50 % (31-73) Lymphocytes (%) (Auto) 28 % (24-48) Monocytes (%) (Auto) 11 % (0-9) H Eosinophils (%) (Auto) 12 % (0-3) H Basophils (%) (Auto) 1 % (0-3) Neutrophils # (Auto) 4.0 x10^3uL (1.8-7.7) Lymphocytes # (Auto) 2.2 x10^3/uL (1.0-4.8) Monocytes # (Auto) 0.8 x10^3/uL (0.0-1.1) Eosinophils # (Auto) 0.9 x10^3/uL (0.0-0.7) H Basophils # (Auto) 0.1 x10^3/uL (0.0-0.2) Sodium Level 144 mmol/L (136-145) Potassium Level 4.7 mmol/L (3.5-5.1) Chloride Level 107 mmol/L (98-107) Carbon Dioxide Level 30 mmol/L (21-32) Anion Gap 7 (6-14) Blood Urea Nitrogen 47 mg/dL (8-26) H Creatinine 1.2 mg/dL (0.7-1.3) Estimated GFR (Cockcroft-Gault) 58.6 BUN/Creatinine Ratio 39 (6-20) H Glucose Level 131 mg/dL (70-99) H Calcium Level 9.2 mg/dL (8.5-10.1) Total Bilirubin 0.5 mg/dL (0.2-1.0) Aspartate Amino Transferase (AST) 23 U/L (15-37) Alanine Aminotransferase (ALT) 22 U/L (16-63) Alkaline Phosphatase 130 U/L (46-116) H Total Protein 7.1 g/dL (6.4-8.2) Albumin 3.5 g/dL (3.4-5.0) Albumin/Globulin Ratio 1.0 (1.0-1.7) Phenytoin (Dilantin) Level 9.0 mcg/mL (10.0-20.0) L Phenytoin Last Dose Date 06/14/21 Phenytoin Last Dose Time 2100 Current Medications: Meds: Laboratory Tests Test 06/15/21 07:40 06/15/21 08:30 Glucose (Fingerstick) 109 mg/dL White Blood Count 8.0 x10^3/uL Red Blood Count 3.48 x10^6/uL Hemoglobin 11.7 g/dL Hematocrit 35.3 % Mean Corpuscular Volume 101 fL Mean Corpuscular Hemoglobin 34 pg Mean Corpuscular Hemoglobin Concent 33 g/dL Red Cell Distribution Width 13.7 % Platelet Count 121 x10^3/uL Neutrophils (%) (Auto) 50 % Lymphocytes (%) (Auto) 28 % Monocytes (%) (Auto) 11 % Eosinophils (%) (Auto) 12 % Basophils (%) (Auto) 1 % Neutrophils # (Auto) 4.0 x10^3uL Lymphocytes # (Auto) 2.2 x10^3/uL Monocytes # (Auto) 0.8 x10^3/uL Eosinophils # (Auto) 0.9 x10^3/uL Basophils # (Auto) 0.1 x10^3/uL Sodium Level 144 mmol/L Potassium Level 4.7 mmol/L Chloride Level 107 mmol/L Carbon Dioxide Level 30 mmol/L Anion Gap 7 Blood Urea Nitrogen 47 mg/dL Creatinine 1.2 mg/dL Estimated GFR (Cockcroft-Gault) 58.6 BUN/Creatinine Ratio 39 Glucose Level 131 mg/dL Calcium Level 9.2 mg/dL Total Bilirubin 0.5 mg/dL Aspartate Amino Transf (AST/SGOT) 23 U/L Alanine Aminotransferase (ALT/SGPT) 22 U/L Alkaline Phosphatase 130 U/L Total Protein 7.1 g/dL Albumin 3.5 g/dL Albumin/Globulin Ratio 1.0 Phenytoin (Dilantin) Level 9.0 mcg/mL Phenytoin Last Dose Date 06/14/21 Phenytoin Last Dose Time 2100 Current Medications Medications (Trade) Dose Ordered Sig/Aparna Route PRN Reason Start Time Stop Time Status Last Admin Dose Admin Acetaminophen (Tylenol) 650 mg PRN Q6HRS PRN PO MILD PAIN / TEMP > 100.3'F 05/17/21 14:45 06/10/21 00:45 Multi-Ingredient Ointment (Analgesic [place]) 1 inna PRN QID PRN TP MUSCLE PAIN 05/17/21 14:45 Al Hydroxide/Mg Hydroxide (Mylanta Plus Xs) 15 ml PRN AFTMEALHC PRN PO DYSPEPSIA 05/17/21 14:45 Magnesium Hydroxide (Milk Of Magnesia) 2,400 mg PRN QHS PRN PO CONSTIPATION 05/17/21 14:45 06/15/21 20:17 Aspirin (Aspirin Enteric Coated) 81 mg DAILY PO 05/18/21 09:00 06/15/21 08:51 Budesonide (Pulmicort) 0.5 mg RTBID IH 05/17/21 20:00 05/18/21 13:26 DC Carvedilol (Coreg) 3.125 mg BIDWMEALS PO 05/17/21 17:00 06/15/21 17:00 Lisinopril (Prinivil) 5 mg DAILY PO 05/18/21 09:00 05/25/21 09:35 DC 05/24/21 08:39 Metformin HCl (Glucophage Xr) 500 mg DAILYWBKFT PO 05/18/21 08:00 06/15/21 08:52 Phenytoin Sodium (Dilantin) 100 mg BID PO 05/17/21 21:00 05/18/21 21:00 DC 05/18/21 20:13 Tamsulosin HCl (Flomax) 0.4 mg DAILY PO 05/18/21 09:00 06/15/21 08:52 Cyanocobalamin (Vitamin B-12) 1,000 mcg DAILY PO 05/18/21 09:00 06/15/21 08:51 Non-Formulary Medication (Ipratropium/ Albuterol Sulfate (Combivent Respimat Inhal)) 1 puff QID INH 05/17/21 17:00 05/17/21 15:02 DC Atorvastatin Calcium (Lipitor) 10 mg DAILY PO 05/18/21 09:00 06/15/21 08:51 Albuterol/ Ipratropium (Duoneb) 3 ml RTQID NEB 05/17/21 16:00 05/17/21 20:45 DC Albuterol/ Ipratropium (Combivent Respimat 20-100 Mcg) 1 puff RTQID INH 05/17/21 20:00 06/15/21 20:17 Gabapentin (Neurontin) 300 mg BID PO 05/17/21 21:00 06/15/21 20:11 Fluticasone Furoate (ARNUITY 100mcg ELLIPTA) 1 puff DAILY INH 05/18/21 14:00 05/21/21 08:27 DC 05/20/21 08:41 Phenytoin Sodium (Dilantin) 300 mg DAILY08 PO 05/19/21 08:00 06/06/21 17:30 DC 06/06/21 08:30 Duloxetine HCl (Cymbalta) 30 mg DAILY PO 05/19/21 09:00 05/25/21 15:56 DC 05/25/21 12:21 Mirtazapine (Remeron) 7.5 mg QHS PO 05/19/21 21:00 06/15/21 20:11 Trazodone HCl (Desyrel) 50 mg PRN QHS PRN PO sleep 05/19/21 12:30 06/11/21 21:31 Divalproex Sodium (Depakote Sprinkles) 125 mg 0900,1300,1700 PO 05/25/21 09:00 05/25/21 16:36 DC 05/25/21 12:20 Duloxetine HCl (Cymbalta) 30 mg DAILY PO 05/26/21 09:00 05/25/21 16:36 DC Duloxetine HCl (Cymbalta) 20 mg DAILY PO 05/26/21 09:00 05/25/21 16:36 DC Duloxetine HCl (Cymbalta) 30 mg DAILY PO 05/26/21 09:00 06/03/21 13:28 DC 06/03/21 08:10 Duloxetine HCl (Cymbalta) 30 mg DAILY PO 06/04/21 09:00 06/06/21 17:51 DC 06/06/21 08:31 Duloxetine HCl (Cymbalta) 20 mg DAILY PO 06/04/21 09:00 06/06/21 17:30 DC 06/06/21 08:31 Duloxetine HCl (Cymbalta) 20 mg HS PO 06/07/21 21:00 06/15/21 20:12 Phenytoin Sodium (Dilantin) 300 mg HS PO 06/07/21 21:00 06/13/21 00:04 DC 06/12/21 21:29 Duloxetine HCl (Cymbalta) 30 mg HS PO 06/07/21 21:00 06/15/21 20:12 Olanzapine (ZyPREXA ZYDIS) 2.5 mg PRN Q2HRS PRN PO PSYCHOSIS 06/10/21 18:45 Phenytoin Sodium (Dilantin) 100 mg 1X ONCE PO 06/13/21 00:30 06/13/21 00:31 DC 06/13/21 00:23 Phenytoin Sodium (Dilantin) 400 mg HS PO 06/13/21 21:00 06/15/21 20:12 Guaifenesin (Mucinex Er) 600 mg BID PO 06/14/21 21:00 06/15/21 20:11 I have reviewed the current psychotropics carefully including drug interactions. Risk benefit ratio favors no change other than as noted in my dictated progress note. Diagnosis: Problems: (1) Major depressive disorder (2) Impulse control disorder, unspecified (3) Anxiety disorder, unspecified (4) Dementia, vascular, with depression (5) Dementia, vascular, with delusions (6) Major neurocognitive disorder NIK LOYA MD Jun 15, 2021 22:04
--- NOTE | 2021-06-16 02:45 | NUR ---
Nursing Note The patient was calm and cooperative with his assessment and medication pass. The patient took his medication whole. The patient was alert to name and that he was in the hospital. The patient is currently sleeping in his room.
[2021-06-16 05:45] VITALS: BP 160/76
[2021-06-16] MEDS: CARVEDILOL 3.125 MG TABLET PO SCH ×2 (08:48→17:24)
[2021-06-16] MEDS: TAMSULOSIN 0.4 MG CAP.ER.24H. PO SCH (08:48)
[2021-06-16] MEDS: GABAPENTIN 300 MG CAPSULE. PO SCH ×2 (08:49→20:09)
[2021-06-16] MEDS: ATORVASTATIN CALCIUM 10 MG TABLET. PO SCH (08:49)
[2021-06-16] MEDS: metFORMIN XR 500 MG TAB.ER.24H PO SCH (08:49)
[2021-06-16] MEDS: ASPIRIN ENTERIC COATED 81 MG TABLET.DR. PO SCH (08:49)
[2021-06-16] MEDS: CYANOCOBALAMIN (VITAMIN B-12) 1,000 MCG TABLET. PO SCH (08:49)
[2021-06-16] MEDS: IPRATROPIUM/ALBUTEROL 20/100mcg/INH INHALER. INH SCH ×4 (08:49→20:09)
--- NOTE | 2021-06-16 09:18 | PDOC ---
Exam Note: Leo Note: This note is a late entry for 06/14/2021 covers elements not covered in my initial note. Subjective: The patient was seen individually in the evening of 06/14/2021 with Zion KOWALSKI, discussed and reviewed the chart. The patient slept 8 hours previous night. He has been little more delusional previous night looking for his truck. None of that is evident on 06/14. He did get up for breakfast, slept through lunch. Dilantin has been increased due to seizure focus on EEG per Dr. Newman. I met with the patient at length in his room. He is quite verbal and interact ruben. I explained about increase in Dilantin and that we will be following labs and he is very cooperative. Review of Systems: Ambulation impaired in wheelchair. No CV, , pulmonary, eye, ENT system symptoms on review. Mental Status Exam: The patient is oriented to himself and situation. Speech moderate latency, coherent. Often response is monosyllabic. Abstraction fair. Computation impaired. Language function intact. Mood and affect somewhat withdrawn. No suicidal or homicidal ideation. Laboratory Data: Reviewed. 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 Anxiety disorder unspecified. Impulse control disorder unspecified. Plan: Continue current psychotropics and as noted above. Assessment: Vital Signs/I&O: Vital Signs Date Time Temp Pulse Resp B/P (MAP) Pulse Ox O2 Delivery O2 Flow Rate FiO2 06/16/21 08:48 88 160/76 06/16/21 05:45 97.9 20 94 06/15/21 16:14 Room Air I & O 06/15/21 06/15/21 06/16/21 14:59 22:59 06:59 Intake Total 600 ml 240 ml 120 ml Balance 600 ml 240 ml 120 ml Labs: Laboratory Tests Test 06/16/21 07:23 Glucose (Fingerstick) 126 mg/dL (70-99) H Current Medications: Meds: Laboratory Tests Test 06/16/21 07:23 Glucose (Fingerstick) 126 mg/dL Current Medications Medications (Trade) Dose Ordered Sig/Aparna Route PRN Reason Start Time Stop Time Status Last Admin Dose Admin Acetaminophen (Tylenol) 650 mg PRN Q6HRS PRN PO MILD PAIN / TEMP > 100.3'F 05/17/21 14:45 06/10/21 00:45 Multi-Ingredient Ointment (Analgesic [place]) 1 inna PRN QID PRN TP MUSCLE PAIN 05/17/21 14:45 Al Hydroxide/Mg Hydroxide (Mylanta Plus Xs) 15 ml PRN AFTMEALHC PRN PO DYSPEPSIA 05/17/21 14:45 Magnesium Hydroxide (Milk Of Magnesia) 2,400 mg PRN QHS PRN PO CONSTIPATION 05/17/21 14:45 06/15/21 20:17 Aspirin (Aspirin Enteric Coated) 81 mg DAILY PO 05/18/21 09:00 06/16/21 08:49 Budesonide (Pulmicort) 0.5 mg RTBID IH 05/17/21 20:00 05/18/21 13:26 DC Carvedilol (Coreg) 3.125 mg BIDWMEALS PO 05/17/21 17:00 06/16/21 08:48 Lisinopril (Prinivil) 5 mg DAILY PO 05/18/21 09:00 05/25/21 09:35 DC 05/24/21 08:39 Metformin HCl (Glucophage Xr) 500 mg DAILYWBKFT PO 05/18/21 08:00 06/16/21 08:49 Phenytoin Sodium (Dilantin) 100 mg BID PO 05/17/21 21:00 05/18/21 21:00 DC 05/18/21 20:13 Tamsulosin HCl (Flomax) 0.4 mg DAILY PO 05/18/21 09:00 06/16/21 08:48 Cyanocobalamin (Vitamin B-12) 1,000 mcg DAILY PO 05/18/21 09:00 06/16/21 08:49 Non-Formulary Medication (Ipratropium/ Albuterol Sulfate (Combivent Respimat Inhal)) 1 puff QID INH 05/17/21 17:00 05/17/21 15:02 DC Atorvastatin Calcium (Lipitor) 10 mg DAILY PO 05/18/21 09:00 06/16/21 08:49 Albuterol/ Ipratropium (Duoneb) 3 ml RTQID NEB 05/17/21 16:00 05/17/21 20:45 DC Albuterol/ Ipratropium (Combivent Respimat 20-100 Mcg) 1 puff RTQID INH 05/17/21 20:00 06/16/21 08:49 Gabapentin (Neurontin) 300 mg BID PO 05/17/21 21:00 06/16/21 08:49 Fluticasone Furoate (ARNUITY 100mcg ELLIPTA) 1 puff DAILY INH 05/18/21 14:00 05/21/21 08:27 DC 05/20/21 08:41 Phenytoin Sodium (Dilantin) 300 mg DAILY08 PO 05/19/21 08:00 06/06/21 17:30 DC 06/06/21 08:30 Duloxetine HCl (Cymbalta) 30 mg DAILY PO 05/19/21 09:00 05/25/21 15:56 DC 05/25/21 12:21 Mirtazapine (Remeron) 7.5 mg QHS PO 05/19/21 21:00 06/15/21 20:11 Trazodone HCl (Desyrel) 50 mg PRN QHS PRN PO sleep 05/19/21 12:30 06/11/21 21:31 Divalproex Sodium (Depakote Sprinkles) 125 mg 0900,1300,1700 PO 05/25/21 09:00 05/25/21 16:36 DC 05/25/21 12:20 Duloxetine HCl (Cymbalta) 30 mg DAILY PO 05/26/21 09:00 05/25/21 16:36 DC Duloxetine HCl (Cymbalta) 20 mg DAILY PO 05/26/21 09:00 05/25/21 16:36 DC Duloxetine HCl (Cymbalta) 30 mg DAILY PO 05/26/21 09:00 06/03/21 13:28 DC 06/03/21 08:10 Duloxetine HCl (Cymbalta) 30 mg DAILY PO 06/04/21 09:00 06/06/21 17:51 DC 06/06/21 08:31 Duloxetine HCl (Cymbalta) 20 mg DAILY PO 06/04/21 09:00 06/06/21 17:30 DC 06/06/21 08:31 Duloxetine HCl (Cymbalta) 20 mg HS PO 06/07/21 21:00 06/15/21 20:12 Phenytoin Sodium (Dilantin) 300 mg HS PO 06/07/21 21:00 06/13/21 00:04 DC 06/12/21 21:29 Duloxetine HCl (Cymbalta) 30 mg HS PO 06/07/21 21:00 06/15/21 20:12 Olanzapine (ZyPREXA ZYDIS) 2.5 mg PRN Q2HRS PRN PO PSYCHOSIS 06/10/21 18:45 Phenytoin Sodium (Dilantin) 100 mg 1X ONCE PO 06/13/21 00:30 06/13/21 00:31 DC 06/13/21 00:23 Phenytoin Sodium (Dilantin) 400 mg HS PO 06/13/21 21:00 06/15/21 20:12 Guaifenesin (Mucinex Er) 600 mg BID PO 06/14/21 21:00 06/16/21 08:49 I have reviewed the current psychotropics carefully including drug interactions. Risk benefit ratio favors no change other than as noted in my dictated progress note. Diagnosis: Problems: (1) Major depressive disorder (2) Impulse control disorder, unspecified (3) Anxiety disorder, unspecified (4) Dementia, vascular, with depression (5) Dementia, vascular, with delusions (6) Major neurocognitive disorder NIK LOYA MD Jun 16, 2021 09:18
--- NOTE | 2021-06-16 09:45 | PDOC ---
Exam Note: Leo Note: This note is a late entry for 06/15/2021 covers elements not covered in my initial note. Subjective: The patient was seen individually in the evening of 06/15/2021 with Jazmin KOWALSKI, discussed and reviewed the chart. The patient slept 6-1/4 hours previous night. The patient has done well during the day today. Previous evening he was somewhat confused and delusional and we will check Dilantin level tomorrow morning. He was seated in the dayroom singing as I met with him and yodelling, seemed more light hearted today. Review of Systems: Ambulation impaired in wheelchair. No CV, , pulmonary, eye, ENT system symptoms on review. Reliability varies. Mental Status Exam: The patient is oriented to himself and situation. Speech moderate latency coherent. Often response is monosyllabic. Abstraction fair. Computation impaired. Language function intact. Mood and affect somewhat withdrawn. No suicidal or homicidal ideation. Laboratory Data: Reviewed. 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 Anxiety disorder unspecified. Impulse control disorder unspecified. Plan: Continue current psychotropics and as noted above. Assessment: Vital Signs/I&O: Vital Signs Date Time Temp Pulse Resp B/P (MAP) Pulse Ox O2 Delivery O2 Flow Rate FiO2 06/16/21 08:48 88 160/76 06/16/21 05:45 97.9 20 94 06/15/21 16:14 Room Air I & O 06/15/21 06/15/21 06/16/21 15:00 23:00 07:00 Intake Total 600 ml 240 ml 120 ml Balance 600 ml 240 ml 120 ml Labs: Laboratory Tests Test 06/16/21 07:23 Glucose (Fingerstick) 126 mg/dL (70-99) H Current Medications: Meds: Laboratory Tests Test 06/16/21 07:23 Glucose (Fingerstick) 126 mg/dL Current Medications Medications (Trade) Dose Ordered Sig/Aparna Route PRN Reason Start Time Stop Time Status Last Admin Dose Admin Acetaminophen (Tylenol) 650 mg PRN Q6HRS PRN PO MILD PAIN / TEMP > 100.3'F 05/17/21 14:45 06/10/21 00:45 Multi-Ingredient Ointment (Analgesic [place]) 1 inna PRN QID PRN TP MUSCLE PAIN 05/17/21 14:45 Al Hydroxide/Mg Hydroxide (Mylanta Plus Xs) 15 ml PRN AFTMEALHC PRN PO DYSPEPSIA 05/17/21 14:45 Magnesium Hydroxide (Milk Of Magnesia) 2,400 mg PRN QHS PRN PO CONSTIPATION 05/17/21 14:45 06/15/21 20:17 Aspirin (Aspirin Enteric Coated) 81 mg DAILY PO 05/18/21 09:00 06/16/21 08:49 Budesonide (Pulmicort) 0.5 mg RTBID IH 05/17/21 20:00 05/18/21 13:26 DC Carvedilol (Coreg) 3.125 mg BIDWMEALS PO 05/17/21 17:00 06/16/21 08:48 Lisinopril (Prinivil) 5 mg DAILY PO 05/18/21 09:00 05/25/21 09:35 DC 05/24/21 08:39 Metformin HCl (Glucophage Xr) 500 mg DAILYWBKFT PO 05/18/21 08:00 06/16/21 08:49 Phenytoin Sodium (Dilantin) 100 mg BID PO 05/17/21 21:00 05/18/21 21:00 DC 05/18/21 20:13 Tamsulosin HCl (Flomax) 0.4 mg DAILY PO 05/18/21 09:00 06/16/21 08:48 Cyanocobalamin (Vitamin B-12) 1,000 mcg DAILY PO 05/18/21 09:00 06/16/21 08:49 Non-Formulary Medication (Ipratropium/ Albuterol Sulfate (Combivent Respimat Inhal)) 1 puff QID INH 05/17/21 17:00 05/17/21 15:02 DC Atorvastatin Calcium (Lipitor) 10 mg DAILY PO 05/18/21 09:00 06/16/21 08:49 Albuterol/ Ipratropium (Duoneb) 3 ml RTQID NEB 05/17/21 16:00 05/17/21 20:45 DC Albuterol/ Ipratropium (Combivent Respimat 20-100 Mcg) 1 puff RTQID INH 05/17/21 20:00 06/16/21 08:49 Gabapentin (Neurontin) 300 mg BID PO 05/17/21 21:00 06/16/21 08:49 Fluticasone Furoate (ARNUITY 100mcg ELLIPTA) 1 puff DAILY INH 05/18/21 14:00 05/21/21 08:27 DC 05/20/21 08:41 Phenytoin Sodium (Dilantin) 300 mg DAILY08 PO 05/19/21 08:00 06/06/21 17:30 DC 06/06/21 08:30 Duloxetine HCl (Cymbalta) 30 mg DAILY PO 05/19/21 09:00 05/25/21 15:56 DC 05/25/21 12:21 Mirtazapine (Remeron) 7.5 mg QHS PO 05/19/21 21:00 06/15/21 20:11 Trazodone HCl (Desyrel) 50 mg PRN QHS PRN PO sleep 05/19/21 12:30 06/11/21 21:31 Divalproex Sodium (Depakote Sprinkles) 125 mg 0900,1300,1700 PO 05/25/21 09:00 05/25/21 16:36 DC 05/25/21 12:20 Duloxetine HCl (Cymbalta) 30 mg DAILY PO 05/26/21 09:00 05/25/21 16:36 DC Duloxetine HCl (Cymbalta) 20 mg DAILY PO 05/26/21 09:00 05/25/21 16:36 DC Duloxetine HCl (Cymbalta) 30 mg DAILY PO 05/26/21 09:00 06/03/21 13:28 DC 06/03/21 08:10 Duloxetine HCl (Cymbalta) 30 mg DAILY PO 06/04/21 09:00 06/06/21 17:51 DC 06/06/21 08:31 Duloxetine HCl (Cymbalta) 20 mg DAILY PO 06/04/21 09:00 06/06/21 17:30 DC 06/06/21 08:31 Duloxetine HCl (Cymbalta) 20 mg HS PO 06/07/21 21:00 06/15/21 20:12 Phenytoin Sodium (Dilantin) 300 mg HS PO 06/07/21 21:00 06/13/21 00:04 DC 06/12/21 21:29 Duloxetine HCl (Cymbalta) 30 mg HS PO 06/07/21 21:00 06/15/21 20:12 Olanzapine (ZyPREXA ZYDIS) 2.5 mg PRN Q2HRS PRN PO PSYCHOSIS 06/10/21 18:45 Phenytoin Sodium (Dilantin) 100 mg 1X ONCE PO 06/13/21 00:30 06/13/21 00:31 DC 06/13/21 00:23 Phenytoin Sodium (Dilantin) 400 mg HS PO 06/13/21 21:00 06/15/21 20:12 Guaifenesin (Mucinex Er) 600 mg BID PO 06/14/21 21:00 06/16/21 08:49 I have reviewed the current psychotropics carefully including drug interactions. Risk benefit ratio favors no change other than as noted in my dictated progress note. Diagnosis: Problems: (1) Major depressive disorder (2) Impulse control disorder, unspecified (3) Anxiety disorder, unspecified (4) Dementia, vascular, with depression (5) Dementia, vascular, with delusions (6) Major neurocognitive disorder NIK LOYA MD Jun 16, 2021 09:45
--- NOTE | 2021-06-16 11:21 | NUR ---
Nursing note: Pt in dining room at time of AM med pass and assessment. He was pleasant, med compliant, and cooperative. Pt denies having any pain or concerns. He has been propelling himself throughout the unit in his wheelchair. Will continue to monitor.
--- NOTE | 2021-06-16 12:01 | PN ---
SUBJECTIVE: The patient denies any new medical or neurological complaints. He denies any recurrent seizures. OBJECTIVE: GENERAL: Well-developed, well-nourished male, in no acute distress. VITAL SIGNS: Blood pressure 143/68, respiratory rate 20, pulse is 82 and regular, temperature 97.8, oxygen saturation is 96% on room air. HEENT: Normocephalic, atraumatic, otherwise unremarkable. NECK: Supple. Negative for carotid bruit, lymphadenopathy or thyromegaly. LUNGS: Clear to A and P. CARDIOVASCULAR: Regular S1, S2. There is no S3, S4 or murmur. ABDOMEN: Soft. Bowel sounds positive. EXTREMITIES: Negative for cyanosis, clubbing or pedal edema. NEUROLOGIC: Mental status: The patient is alert and oriented x2. The speech is clear. There is no language dysfunction. Memory, judgment and abstracting thinking are fair. The patient denies hallucination or delusion. Cranial nerves are intact. No focal motor or sensory deficit. The strength is 4/5 throughout. Deep tendon reflexes were symmetric and hypoactive with absent Achilles responses. Gait: The patient uses a walker for ambulation. LABORATORY DATA: From today revealed white blood cells of 8000, hemoglobin 11.7, hematocrit 35.3 and platelet count 121,000. Chemistry revealed sodium of 144, potassium 4.7, chloride 107, CO2 of 33, BUN 47, creatinine 1.2, glucose is 131, calcium 9.2. Dilantin level from today revealed benign ____. IMPRESSION: 1. 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 2. Moderately abnormal electroencephalogram consistent with left temporal epileptic focus; however, no epileptiform discharges were seen at this time. 3. Multiple medical problems include diabetes mellitus, hypertension, chronic obstructive pulmonary disease and dementia. 4. Multiple psychiatric problems include depression and anxiety. RECOMMENDATIONS: Continue with current medical and psychiatric care including Dilantin 400 mg at bedtime. Should the patient have another seizure, we will probably adjust Dilantin dose ____. DANITA/MARIYA/BERENICE DR: DANITA/shaunna TID: [id number]
--- NOTE | 2021-06-16 12:51 | NUR ---
WEEKLY ACTIVITY THERAPY NOTE Date of Admission: 05/17/21 Date of AT Assessment: 05/20 Precipitating behaviors that initiated intake and admission: Patient was reported to believe that his money was being stolen, his dog was being murdered, trying to leave the facility, disoriented, being tearful and crying frequently, and having sexually inappropriate conversations with other residents. Goal aimed: increase socialization and engagement Initial Goal: Pt will participate in at least three individual or group Activity Therapy sessions per week. Goal repeated 06/03 Weekly progress towards goal: achieve, 3/3 Group participation level: 2 min, 1 mod Weekly highlights: social with peers during social hour Wednesday afternoon, discussion and trivia Wednesday morning Behaviors observed: withdrawn to room, social and pleasant with peers when attendance Plan: no change to goal Beneficial adaptations: encouragement for group participation
[2021-06-16 16:18] VITALS: BP 162/85
[2021-06-16] MEDS: DULoxetine HCL 20 MG CAPSULE.DR PO SCH (20:08)
[2021-06-16] MEDS: PHENYTOIN SODIUM EXTENDED 100 MG CAPSULE PO SCH (20:08)
[2021-06-16] MEDS: DULoxetine HCL 30 MG CAPSULE.DR PO SCH (20:09)
[2021-06-16] MEDS: MIRTAZAPINE 7.5 MG TABLET. PO SCH (20:09)
--- NOTE | 2021-06-16 22:17 | PDOC ---
Exam Note: Leo Note: Please also refer to the separate dictated note~for this date of service dictated separately.~Patient seen individually. Discussed the patient with Nursing staff reviewed the chart.~Reviewed interim history and current functioning. Reviewed vital signs,~Labs/ Radiology~and current medications noted below. Continue current treatment with the changes noted in the dictated addendum note Assessment: Vital Signs/I&O: Vital Signs Date Time Temp Pulse Resp B/P (MAP) Pulse Ox O2 Delivery O2 Flow Rate FiO2 06/16/21 17:24 83 162/85 06/16/21 16:18 97.8 20 94 06/15/21 16:14 Room Air I & O 06/15/21 06/15/21 06/16/21 15:00 23:00 07:00 Intake Total 600 ml 240 ml 120 ml Balance 600 ml 240 ml 120 ml Labs: Laboratory Tests Test 06/16/21 07:23 Glucose (Fingerstick) 126 mg/dL (70-99) H Current Medications: Meds: Laboratory Tests Test 06/16/21 07:23 Glucose (Fingerstick) 126 mg/dL Current Medications Medications (Trade) Dose Ordered Sig/Aparna Route PRN Reason Start Time Stop Time Status Last Admin Dose Admin Acetaminophen (Tylenol) 650 mg PRN Q6HRS PRN PO MILD PAIN / TEMP > 100.3'F 05/17/21 14:45 06/10/21 00:45 Multi-Ingredient Ointment (Analgesic [place]) 1 inna PRN QID PRN TP MUSCLE PAIN 05/17/21 14:45 Al Hydroxide/Mg Hydroxide (Mylanta Plus Xs) 15 ml PRN AFTMEALHC PRN PO DYSPEPSIA 05/17/21 14:45 Magnesium Hydroxide (Milk Of Magnesia) 2,400 mg PRN QHS PRN PO CONSTIPATION 05/17/21 14:45 06/15/21 20:17 Aspirin (Aspirin Enteric Coated) 81 mg DAILY PO 05/18/21 09:00 06/16/21 08:49 Budesonide (Pulmicort) 0.5 mg RTBID IH 05/17/21 20:00 05/18/21 13:26 DC Carvedilol (Coreg) 3.125 mg BIDWMEALS PO 05/17/21 17:00 06/16/21 17:24 Lisinopril (Prinivil) 5 mg DAILY PO 05/18/21 09:00 05/25/21 09:35 DC 05/24/21 08:39 Metformin HCl (Glucophage Xr) 500 mg DAILYWBKFT PO 05/18/21 08:00 06/16/21 08:49 Phenytoin Sodium (Dilantin) 100 mg BID PO 05/17/21 21:00 05/18/21 21:00 DC 05/18/21 20:13 Tamsulosin HCl (Flomax) 0.4 mg DAILY PO 05/18/21 09:00 06/16/21 08:48 Cyanocobalamin (Vitamin B-12) 1,000 mcg DAILY PO 05/18/21 09:00 06/16/21 08:49 Non-Formulary Medication (Ipratropium/ Albuterol Sulfate (Combivent Respimat Inhal)) 1 puff QID INH 05/17/21 17:00 05/17/21 15:02 DC Atorvastatin Calcium (Lipitor) 10 mg DAILY PO 05/18/21 09:00 06/16/21 08:49 Albuterol/ Ipratropium (Duoneb) 3 ml RTQID NEB 05/17/21 16:00 05/17/21 20:45 DC Albuterol/ Ipratropium (Combivent Respimat 20-100 Mcg) 1 puff RTQID INH 05/17/21 20:00 06/16/21 20:09 Gabapentin (Neurontin) 300 mg BID PO 05/17/21 21:00 06/16/21 20:09 Fluticasone Furoate (ARNUITY 100mcg ELLIPTA) 1 puff DAILY INH 05/18/21 14:00 05/21/21 08:27 DC 05/20/21 08:41 Phenytoin Sodium (Dilantin) 300 mg DAILY08 PO 05/19/21 08:00 06/06/21 17:30 DC 06/06/21 08:30 Duloxetine HCl (Cymbalta) 30 mg DAILY PO 05/19/21 09:00 05/25/21 15:56 DC 05/25/21 12:21 Mirtazapine (Remeron) 7.5 mg QHS PO 05/19/21 21:00 06/16/21 20:09 Trazodone HCl (Desyrel) 50 mg PRN QHS PRN PO sleep 05/19/21 12:30 06/11/21 21:31 Divalproex Sodium (Depakote Sprinkles) 125 mg 0900,1300,1700 PO 05/25/21 09:00 05/25/21 16:36 DC 05/25/21 12:20 Duloxetine HCl (Cymbalta) 30 mg DAILY PO 05/26/21 09:00 05/25/21 16:36 DC Duloxetine HCl (Cymbalta) 20 mg DAILY PO 05/26/21 09:00 05/25/21 16:36 DC Duloxetine HCl (Cymbalta) 30 mg DAILY PO 05/26/21 09:00 06/03/21 13:28 DC 06/03/21 08:10 Duloxetine HCl (Cymbalta) 30 mg DAILY PO 06/04/21 09:00 06/06/21 17:51 DC 06/06/21 08:31 Duloxetine HCl (Cymbalta) 20 mg DAILY PO 06/04/21 09:00 06/06/21 17:30 DC 06/06/21 08:31 Duloxetine HCl (Cymbalta) 20 mg HS PO 06/07/21 21:00 06/16/21 20:08 Phenytoin Sodium (Dilantin) 300 mg HS PO 06/07/21 21:00 06/13/21 00:04 DC 06/12/21 21:29 Duloxetine HCl (Cymbalta) 30 mg HS PO 06/07/21 21:00 06/16/21 20:09 Olanzapine (ZyPREXA ZYDIS) 2.5 mg PRN Q2HRS PRN PO PSYCHOSIS 06/10/21 18:45 Phenytoin Sodium (Dilantin) 100 mg 1X ONCE PO 06/13/21 00:30 06/13/21 00:31 DC 06/13/21 00:23 Phenytoin Sodium (Dilantin) 400 mg HS PO 06/13/21 21:00 06/16/21 20:08 Guaifenesin (Mucinex Er) 600 mg BID PO 06/14/21 21:00 06/16/21 20:08 I have reviewed the current psychotropics carefully including drug interactions. Risk benefit ratio favors no change other than as noted in my dictated progress note. Diagnosis: Problems: (1) Major depressive disorder (2) Impulse control disorder, unspecified (3) Anxiety disorder, unspecified (4) Dementia, vascular, with depression (5) Dementia, vascular, with delusions (6) Major neurocognitive disorder NIK LOYA MD Jun 16, 2021 22:17
--- NOTE | 2021-06-16 22:45 | NUR ---
Nursing Note The patient was withdrawn to self while awake this shift and spent most of his time laying in bed. The patient was compliant with HS medication and took them whole. The patient was alert to name and hospital. The patient was irritable with HS cares including shower. The patient was very resistive when taking his shower. The patient is currently sleeping in his room.
[2021-06-17 05:49] VITALS: BP 174/83
[2021-06-17] MEDS: GABAPENTIN 300 MG CAPSULE. PO SCH ×2 (09:05→20:21)
[2021-06-17] MEDS: IPRATROPIUM/ALBUTEROL 20/100mcg/INH INHALER. INH SCH ×4 (09:05→20:21)
[2021-06-17] MEDS: ATORVASTATIN CALCIUM 10 MG TABLET. PO SCH (09:05)
[2021-06-17] MEDS: CYANOCOBALAMIN (VITAMIN B-12) 1,000 MCG TABLET. PO SCH (09:05)
[2021-06-17] MEDS: TAMSULOSIN 0.4 MG CAP.ER.24H. PO SCH (09:06)
[2021-06-17] MEDS: ASPIRIN ENTERIC COATED 81 MG TABLET.DR. PO SCH (09:06)
[2021-06-17] MEDS: metFORMIN XR 500 MG TAB.ER.24H PO SCH (09:06)
[2021-06-17] MEDS: CARVEDILOL 3.125 MG TABLET PO SCH ×2 (09:07→17:21)
--- NOTE | 2021-06-17 12:59 | NUR ---
Nurse Note Patient alert to self. Patient confused and disorganized. Patient up in wheelchair for meal. socialized with other patient's this am for group therapy. Compliant with medications and took all medication whole juice
[2021-06-17 15:40] VITALS: BP 134/63
[2021-06-17] MEDS: MIRTAZAPINE 7.5 MG TABLET. PO SCH (20:20)
[2021-06-17] MEDS: DULoxetine HCL 20 MG CAPSULE.DR PO SCH (20:20)
[2021-06-17] MEDS: DULoxetine HCL 30 MG CAPSULE.DR PO SCH (20:21)
[2021-06-17] MEDS: PHENYTOIN SODIUM EXTENDED 100 MG CAPSULE PO SCH (20:21)
--- NOTE | 2021-06-17 22:01 | PDOC ---
Exam Note: Leo Note: Please also refer to the separate dictated note~for this date of service dictated separately.~Patient seen individually. Discussed the patient with Nursing staff reviewed the chart.~Reviewed interim history and current functioning. Reviewed vital signs,~Labs/ Radiology~and current medications noted below. Continue current treatment with the changes noted in the dictated addendum note Assessment: Vital Signs/I&O: Vital Signs Date Time Temp Pulse Resp B/P (MAP) Pulse Ox O2 Delivery O2 Flow Rate FiO2 06/17/21 17:21 80 134/63 06/17/21 15:40 97.8 18 95 06/15/21 16:14 Room Air I & O 06/16/21 06/16/21 06/17/21 15:00 23:00 07:00 Intake Total 1020 ml 600 ml Balance 1020 ml 600 ml Labs: Laboratory Tests Test 06/17/21 07:38 Glucose (Fingerstick) 123 mg/dL (70-99) H Current Medications: Meds: Laboratory Tests Test 06/17/21 07:38 Glucose (Fingerstick) 123 mg/dL Current Medications Medications (Trade) Dose Ordered Sig/Aparna Route PRN Reason Start Time Stop Time Status Last Admin Dose Admin Acetaminophen (Tylenol) 650 mg PRN Q6HRS PRN PO MILD PAIN / TEMP > 100.3'F 05/17/21 14:45 06/10/21 00:45 Multi-Ingredient Ointment (Analgesic [place]) 1 inna PRN QID PRN TP MUSCLE PAIN 05/17/21 14:45 Al Hydroxide/Mg Hydroxide (Mylanta Plus Xs) 15 ml PRN AFTMEALHC PRN PO DYSPEPSIA 05/17/21 14:45 Magnesium Hydroxide (Milk Of Magnesia) 2,400 mg PRN QHS PRN PO CONSTIPATION 05/17/21 14:45 06/15/21 20:17 Aspirin (Aspirin Enteric Coated) 81 mg DAILY PO 05/18/21 09:00 06/17/21 09:06 Budesonide (Pulmicort) 0.5 mg RTBID IH 05/17/21 20:00 05/18/21 13:26 DC Carvedilol (Coreg) 3.125 mg BIDWMEALS PO 05/17/21 17:00 06/17/21 17:21 Lisinopril (Prinivil) 5 mg DAILY PO 05/18/21 09:00 05/25/21 09:35 DC 05/24/21 08:39 Metformin HCl (Glucophage Xr) 500 mg DAILYWBKFT PO 05/18/21 08:00 06/17/21 09:06 Phenytoin Sodium (Dilantin) 100 mg BID PO 05/17/21 21:00 05/18/21 21:00 DC 05/18/21 20:13 Tamsulosin HCl (Flomax) 0.4 mg DAILY PO 05/18/21 09:00 06/17/21 09:06 Cyanocobalamin (Vitamin B-12) 1,000 mcg DAILY PO 05/18/21 09:00 06/17/21 09:05 Non-Formulary Medication (Ipratropium/ Albuterol Sulfate (Combivent Respimat Inhal)) 1 puff QID INH 05/17/21 17:00 05/17/21 15:02 DC Atorvastatin Calcium (Lipitor) 10 mg DAILY PO 05/18/21 09:00 06/17/21 09:05 Albuterol/ Ipratropium (Duoneb) 3 ml RTQID NEB 05/17/21 16:00 05/17/21 20:45 DC Albuterol/ Ipratropium (Combivent Respimat 20-100 Mcg) 1 puff RTQID INH 05/17/21 20:00 06/17/21 20:21 Gabapentin (Neurontin) 300 mg BID PO 05/17/21 21:00 06/17/21 20:21 Fluticasone Furoate (ARNUITY 100mcg ELLIPTA) 1 puff DAILY INH 05/18/21 14:00 05/21/21 08:27 DC 05/20/21 08:41 Phenytoin Sodium (Dilantin) 300 mg DAILY08 PO 05/19/21 08:00 06/06/21 17:30 DC 06/06/21 08:30 Duloxetine HCl (Cymbalta) 30 mg DAILY PO 05/19/21 09:00 05/25/21 15:56 DC 05/25/21 12:21 Mirtazapine (Remeron) 7.5 mg QHS PO 05/19/21 21:00 06/17/21 20:20 Trazodone HCl (Desyrel) 50 mg PRN QHS PRN PO sleep 05/19/21 12:30 06/11/21 21:31 Divalproex Sodium (Depakote Sprinkles) 125 mg 0900,1300,1700 PO 05/25/21 09:00 05/25/21 16:36 DC 05/25/21 12:20 Duloxetine HCl (Cymbalta) 30 mg DAILY PO 05/26/21 09:00 05/25/21 16:36 DC Duloxetine HCl (Cymbalta) 20 mg DAILY PO 05/26/21 09:00 05/25/21 16:36 DC Duloxetine HCl (Cymbalta) 30 mg DAILY PO 05/26/21 09:00 06/03/21 13:28 DC 06/03/21 08:10 Duloxetine HCl (Cymbalta) 30 mg DAILY PO 06/04/21 09:00 06/06/21 17:51 DC 06/06/21 08:31 Duloxetine HCl (Cymbalta) 20 mg DAILY PO 06/04/21 09:00 06/06/21 17:30 DC 06/06/21 08:31 Duloxetine HCl (Cymbalta) 20 mg HS PO 06/07/21 21:00 06/17/21 20:20 Phenytoin Sodium (Dilantin) 300 mg HS PO 06/07/21 21:00 06/13/21 00:04 DC 06/12/21 21:29 Duloxetine HCl (Cymbalta) 30 mg HS PO 06/07/21 21:00 06/17/21 20:21 Olanzapine (ZyPREXA ZYDIS) 2.5 mg PRN Q2HRS PRN PO PSYCHOSIS 06/10/21 18:45 Phenytoin Sodium (Dilantin) 100 mg 1X ONCE PO 06/13/21 00:30 06/13/21 00:31 DC 06/13/21 00:23 Phenytoin Sodium (Dilantin) 400 mg HS PO 06/13/21 21:00 06/17/21 20:21 Guaifenesin (Mucinex Er) 600 mg BID PO 06/14/21 21:00 06/17/21 20:21 I have reviewed the current psychotropics carefully including drug interactions. Risk benefit ratio favors no change other than as noted in my dictated progress note. Diagnosis: Problems: (1) Major depressive disorder (2) Impulse control disorder, unspecified (3) Anxiety disorder, unspecified (4) Dementia, vascular, with depression (5) Dementia, vascular, with delusions (6) Major neurocognitive disorder NIK LOYA MD Jun 17, 2021 22:01
--- NOTE | 2021-06-17 22:11 | NUR ---
Nursing Note The patient was located in his room for his assessment and medication pass. The patient was alert to name only. The patient requested information about his medications which this nurse provided. The patient took his medication whole. The patient is currently sleeping in his room.
[2021-06-18 06:11] VITALS: BP 154/78
[2021-06-18] MEDS: CARVEDILOL 3.125 MG TABLET PO SCH ×2 (08:14→17:20)
[2021-06-18] MEDS: ASPIRIN ENTERIC COATED 81 MG TABLET.DR. PO SCH (08:14)
[2021-06-18] MEDS: CYANOCOBALAMIN (VITAMIN B-12) 1,000 MCG TABLET. PO SCH (08:14)
[2021-06-18] MEDS: IPRATROPIUM/ALBUTEROL 20/100mcg/INH INHALER. INH SCH ×4 (08:14→19:48)
[2021-06-18] MEDS: metFORMIN XR 500 MG TAB.ER.24H PO SCH (08:14)
[2021-06-18] MEDS: ATORVASTATIN CALCIUM 10 MG TABLET. PO SCH (08:15)
[2021-06-18] MEDS: GABAPENTIN 300 MG CAPSULE. PO SCH ×2 (08:15→19:50)
[2021-06-18] MEDS: TAMSULOSIN 0.4 MG CAP.ER.24H. PO SCH (08:15)
--- NOTE | 2021-06-18 08:32 | PDOC ---
Exam Note: Leo Note: This note is a late entry for 06/16/2021 covers elements not covered in my initial note. Subjective: The patient was seen individually in the morning of 06/16/2021 for a treatment team meeting with Jennifer Vizcarra, Rivka Pearson (long term care social worker), Jennifer, activity therapy and Gogo KOWALSKI, discussed and reviewed the chart. The patient slept 5-1/4 hours previous night. Appetite 100%. He attended 3 groups in the past one week. Dilantin level was 9 yesterday and we will defer to Dr. Newman, Neurology. He is somewhat withdraw at times but no behaviors. He was irritable with the nursing aids because he wanted some Ensure for lunch and he was quite fixated on this during the individually visit. I have discussed with Eliud KOWALSKI for Ensure to be given as appropriate. Review of Systems: Ambulation impaired in wheelchair. No CV, , pulmonary, eye, ENT system symptoms on review. Mental Status Exam: The patient is alert and oriented. Speech moderate latency coherent. Often response is monosyllabic. Abstraction fair. Computation impaired. Language function intact. Attention span fair. Short-term memory is impaired. Mood is somewhat anxious but improved. No suicidal or homicidal ideation. Laboratory Data: Reviewed. 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 Anxiety disorder unspecified. Impulse control disorder unspecified. Plan: Continue current psychotropics and as noted above. Assessment: Vital Signs/I&O: Vital Signs Date Time Temp Pulse Resp B/P (MAP) Pulse Ox O2 Delivery O2 Flow Rate FiO2 06/18/21 08:14 98 154/78 06/18/21 06:11 98.5 18 92 06/15/21 16:14 Room Air I & O 06/17/21 06/17/21 06/18/21 15:00 23:00 07:00 Intake Total 1160 ml 780 ml Balance 1160 ml 780 ml Labs: Laboratory Tests Test 06/18/21 07:41 Glucose (Fingerstick) 116 mg/dL (70-99) H Current Medications: Meds: Laboratory Tests Test 06/18/21 07:41 Glucose (Fingerstick) 116 mg/dL Current Medications Medications (Trade) Dose Ordered Sig/Aparna Route PRN Reason Start Time Stop Time Status Last Admin Dose Admin Acetaminophen (Tylenol) 650 mg PRN Q6HRS PRN PO MILD PAIN / TEMP > 100.3'F 05/17/21 14:45 06/10/21 00:45 Multi-Ingredient Ointment (Analgesic [place]) 1 inna PRN QID PRN TP MUSCLE PAIN 05/17/21 14:45 Al Hydroxide/Mg Hydroxide (Mylanta Plus Xs) 15 ml PRN AFTMEALHC PRN PO DYSPEPSIA 05/17/21 14:45 Magnesium Hydroxide (Milk Of Magnesia) 2,400 mg PRN QHS PRN PO CONSTIPATION 05/17/21 14:45 06/15/21 20:17 Aspirin (Aspirin Enteric Coated) 81 mg DAILY PO 05/18/21 09:00 06/18/21 08:14 Budesonide (Pulmicort) 0.5 mg RTBID IH 05/17/21 20:00 05/18/21 13:26 DC Carvedilol (Coreg) 3.125 mg BIDWMEALS PO 05/17/21 17:00 06/18/21 08:14 Lisinopril (Prinivil) 5 mg DAILY PO 05/18/21 09:00 05/25/21 09:35 DC 05/24/21 08:39 Metformin HCl (Glucophage Xr) 500 mg DAILYWBKFT PO 05/18/21 08:00 06/18/21 08:14 Phenytoin Sodium (Dilantin) 100 mg BID PO 05/17/21 21:00 05/18/21 21:00 DC 05/18/21 20:13 Tamsulosin HCl (Flomax) 0.4 mg DAILY PO 05/18/21 09:00 06/18/21 08:15 Cyanocobalamin (Vitamin B-12) 1,000 mcg DAILY PO 05/18/21 09:00 06/18/21 08:14 Non-Formulary Medication (Ipratropium/ Albuterol Sulfate (Combivent Respimat Inhal)) 1 puff QID INH 05/17/21 17:00 05/17/21 15:02 DC Atorvastatin Calcium (Lipitor) 10 mg DAILY PO 05/18/21 09:00 06/18/21 08:15 Albuterol/ Ipratropium (Duoneb) 3 ml RTQID NEB 05/17/21 16:00 05/17/21 20:45 DC Albuterol/ Ipratropium (Combivent Respimat 20-100 Mcg) 1 puff RTQID INH 05/17/21 20:00 06/18/21 08:14 Gabapentin (Neurontin) 300 mg BID PO 05/17/21 21:00 06/18/21 08:15 Fluticasone Furoate (ARNUITY 100mcg ELLIPTA) 1 puff DAILY INH 05/18/21 14:00 05/21/21 08:27 DC 05/20/21 08:41 Phenytoin Sodium (Dilantin) 300 mg DAILY08 PO 05/19/21 08:00 06/06/21 17:30 DC 06/06/21 08:30 Duloxetine HCl (Cymbalta) 30 mg DAILY PO 05/19/21 09:00 05/25/21 15:56 DC 05/25/21 12:21 Mirtazapine (Remeron) 7.5 mg QHS PO 05/19/21 21:00 06/17/21 20:20 Trazodone HCl (Desyrel) 50 mg PRN QHS PRN PO sleep 05/19/21 12:30 06/11/21 21:31 Divalproex Sodium (Depakote Sprinkles) 125 mg 0900,1300,1700 PO 05/25/21 09:00 05/25/21 16:36 DC 05/25/21 12:20 Duloxetine HCl (Cymbalta) 30 mg DAILY PO 05/26/21 09:00 05/25/21 16:36 DC Duloxetine HCl (Cymbalta) 20 mg DAILY PO 05/26/21 09:00 05/25/21 16:36 DC Duloxetine HCl (Cymbalta) 30 mg DAILY PO 05/26/21 09:00 06/03/21 13:28 DC 06/03/21 08:10 Duloxetine HCl (Cymbalta) 30 mg DAILY PO 06/04/21 09:00 06/06/21 17:51 DC 06/06/21 08:31 Duloxetine HCl (Cymbalta) 20 mg DAILY PO 06/04/21 09:00 06/06/21 17:30 DC 06/06/21 08:31 Duloxetine HCl (Cymbalta) 20 mg HS PO 06/07/21 21:00 06/17/21 20:20 Phenytoin Sodium (Dilantin) 300 mg HS PO 06/07/21 21:00 06/13/21 00:04 DC 06/12/21 21:29 Duloxetine HCl (Cymbalta) 30 mg HS PO 06/07/21 21:00 06/17/21 20:21 Olanzapine (ZyPREXA ZYDIS) 2.5 mg PRN Q2HRS PRN PO PSYCHOSIS 06/10/21 18:45 Phenytoin Sodium (Dilantin) 100 mg 1X ONCE PO 06/13/21 00:30 06/13/21 00:31 DC 06/13/21 00:23 Phenytoin Sodium (Dilantin) 400 mg HS PO 06/13/21 21:00 06/17/21 20:21 Guaifenesin (Mucinex Er) 600 mg BID PO 06/14/21 21:00 06/18/21 08:14 I have reviewed the current psychotropics carefully including drug interactions. Risk benefit ratio favors no change other than as noted in my dictated progress note. Diagnosis: Problems: (1) Major depressive disorder (2) Impulse control disorder, unspecified (3) Anxiety disorder, unspecified (4) Dementia, vascular, with depression (5) Dementia, vascular, with delusions (6) Major neurocognitive disorder NIK LOYA MD Jun 18, 2021 08:32
--- NOTE | 2021-06-18 08:59 | PDOC ---
Exam Note: Leo Note: This note is a late entry for 06/17/2021 covers elements not covered in my initial note. Subjective: The patient was seen individually in the evening of 06/17/2021 with Anila KOWALSKI, discussed and reviewed the chart. The patient slept 4-1/2 hours previous night. I met with the patient in his room. He has been getting one can of Ensure everyday and is pleased with this. Review of Systems: Ambulation impaired in wheelchair. No CV, , pulmonary, eye, ENT system symptoms on review. Mental Status Exam: The patient is alert and oriented. He is pleasant, verbal, interactive. Speech moderate latency coherent. Often response is monosyllabic. Abstraction fair. Computation impaired. Language function intact. Attention span fair. Short-term memory is impaired. Mood is less depressed. No suicidal or homicidal ideation. Laboratory Data: Reviewed. 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 Anxiety disorder unspecified. Impulse control disorder unspecified. Plan: Continue current psychotropics. Assessment: Vital Signs/I&O: Vital Signs Date Time Temp Pulse Resp B/P (MAP) Pulse Ox O2 Delivery O2 Flow Rate FiO2 06/18/21 08:14 98 154/78 06/18/21 06:11 98.5 18 92 06/15/21 16:14 Room Air I & O 06/17/21 06/17/21 06/18/21 15:00 23:00 07:00 Intake Total 1160 ml 780 ml Balance 1160 ml 780 ml Labs: Laboratory Tests Test 06/18/21 07:41 Glucose (Fingerstick) 116 mg/dL (70-99) H Current Medications: Meds: Laboratory Tests Test 06/18/21 07:41 Glucose (Fingerstick) 116 mg/dL Current Medications Medications (Trade) Dose Ordered Sig/Aparna Route PRN Reason Start Time Stop Time Status Last Admin Dose Admin Acetaminophen (Tylenol) 650 mg PRN Q6HRS PRN PO MILD PAIN / TEMP > 100.3'F 05/17/21 14:45 06/10/21 00:45 Multi-Ingredient Ointment (Analgesic [place]) 1 inna PRN QID PRN TP MUSCLE PAIN 05/17/21 14:45 Al Hydroxide/Mg Hydroxide (Mylanta Plus Xs) 15 ml PRN AFTMEALHC PRN PO DYSPEPSIA 05/17/21 14:45 Magnesium Hydroxide (Milk Of Magnesia) 2,400 mg PRN QHS PRN PO CONSTIPATION 05/17/21 14:45 06/15/21 20:17 Aspirin (Aspirin Enteric Coated) 81 mg DAILY PO 05/18/21 09:00 06/18/21 08:14 Budesonide (Pulmicort) 0.5 mg RTBID IH 05/17/21 20:00 05/18/21 13:26 DC Carvedilol (Coreg) 3.125 mg BIDWMEALS PO 05/17/21 17:00 06/18/21 08:14 Lisinopril (Prinivil) 5 mg DAILY PO 05/18/21 09:00 05/25/21 09:35 DC 05/24/21 08:39 Metformin HCl (Glucophage Xr) 500 mg DAILYWBKFT PO 05/18/21 08:00 06/18/21 08:14 Phenytoin Sodium (Dilantin) 100 mg BID PO 05/17/21 21:00 05/18/21 21:00 DC 05/18/21 20:13 Tamsulosin HCl (Flomax) 0.4 mg DAILY PO 05/18/21 09:00 06/18/21 08:15 Cyanocobalamin (Vitamin B-12) 1,000 mcg DAILY PO 05/18/21 09:00 06/18/21 08:14 Non-Formulary Medication (Ipratropium/ Albuterol Sulfate (Combivent Respimat Inhal)) 1 puff QID INH 05/17/21 17:00 05/17/21 15:02 DC Atorvastatin Calcium (Lipitor) 10 mg DAILY PO 05/18/21 09:00 06/18/21 08:15 Albuterol/ Ipratropium (Duoneb) 3 ml RTQID NEB 05/17/21 16:00 05/17/21 20:45 DC Albuterol/ Ipratropium (Combivent Respimat 20-100 Mcg) 1 puff RTQID INH 05/17/21 20:00 06/18/21 08:14 Gabapentin (Neurontin) 300 mg BID PO 05/17/21 21:00 06/18/21 08:15 Fluticasone Furoate (ARNUITY 100mcg ELLIPTA) 1 puff DAILY INH 05/18/21 14:00 05/21/21 08:27 DC 05/20/21 08:41 Phenytoin Sodium (Dilantin) 300 mg DAILY08 PO 05/19/21 08:00 06/06/21 17:30 DC 06/06/21 08:30 Duloxetine HCl (Cymbalta) 30 mg DAILY PO 05/19/21 09:00 05/25/21 15:56 DC 05/25/21 12:21 Mirtazapine (Remeron) 7.5 mg QHS PO 05/19/21 21:00 06/17/21 20:20 Trazodone HCl (Desyrel) 50 mg PRN QHS PRN PO sleep 05/19/21 12:30 06/11/21 21:31 Divalproex Sodium (Depakote Sprinkles) 125 mg 0900,1300,1700 PO 05/25/21 09:00 05/25/21 16:36 DC 05/25/21 12:20 Duloxetine HCl (Cymbalta) 30 mg DAILY PO 05/26/21 09:00 05/25/21 16:36 DC Duloxetine HCl (Cymbalta) 20 mg DAILY PO 05/26/21 09:00 05/25/21 16:36 DC Duloxetine HCl (Cymbalta) 30 mg DAILY PO 05/26/21 09:00 06/03/21 13:28 DC 06/03/21 08:10 Duloxetine HCl (Cymbalta) 30 mg DAILY PO 06/04/21 09:00 06/06/21 17:51 DC 06/06/21 08:31 Duloxetine HCl (Cymbalta) 20 mg DAILY PO 06/04/21 09:00 06/06/21 17:30 DC 06/06/21 08:31 Duloxetine HCl (Cymbalta) 20 mg HS PO 06/07/21 21:00 06/17/21 20:20 Phenytoin Sodium (Dilantin) 300 mg HS PO 06/07/21 21:00 06/13/21 00:04 DC 06/12/21 21:29 Duloxetine HCl (Cymbalta) 30 mg HS PO 06/07/21 21:00 06/17/21 20:21 Olanzapine (ZyPREXA ZYDIS) 2.5 mg PRN Q2HRS PRN PO PSYCHOSIS 06/10/21 18:45 Phenytoin Sodium (Dilantin) 100 mg 1X ONCE PO 06/13/21 00:30 06/13/21 00:31 DC 06/13/21 00:23 Phenytoin Sodium (Dilantin) 400 mg HS PO 06/13/21 21:00 06/17/21 20:21 Guaifenesin (Mucinex Er) 600 mg BID PO 06/14/21 21:00 06/18/21 08:14 I have reviewed the current psychotropics carefully including drug interactions. Risk benefit ratio favors no change other than as noted in my dictated progress note. Diagnosis: Problems: (1) Major depressive disorder (2) Impulse control disorder, unspecified (3) Anxiety disorder, unspecified (4) Dementia, vascular, with depression (5) Dementia, vascular, with delusions (6) Major neurocognitive disorder NIK LOYA MD Jun 18, 2021 08:59
[2021-06-18] MEDS: MAGNESIUM HYDROXIDE 2,400 MG/30 ML ORAL.SUSP. PO PRN (10:33)
[2021-06-18 15:50] VITALS: BP 147/75
[2021-06-18] MEDS: PHENYTOIN SODIUM EXTENDED 100 MG CAPSULE PO SCH (19:49)
[2021-06-18] MEDS: DULoxetine HCL 20 MG CAPSULE.DR PO SCH (19:49)
[2021-06-18] MEDS: DULoxetine HCL 30 MG CAPSULE.DR PO SCH (19:50)
[2021-06-18] MEDS: MIRTAZAPINE 7.5 MG TABLET. PO SCH (19:50)
--- NOTE | 2021-06-18 22:29 | PDOC ---
Exam Note: Leo Note: Please also refer to the separate dictated note~for this date of service dictated separately.~Patient seen individually. Discussed the patient with Nursing staff reviewed the chart.~Reviewed interim history and current functioning. Reviewed vital signs,~Labs/ Radiology~and current medications noted below. Continue current treatment with the changes noted in the dictated addendum note Assessment: Vital Signs/I&O: Vital Signs Date Time Temp Pulse Resp B/P (MAP) Pulse Ox O2 Delivery O2 Flow Rate FiO2 06/18/21 17:20 71 147/75 06/18/21 15:50 98.1 20 91 06/15/21 16:14 Room Air I & O 06/17/21 06/17/21 06/18/21 15:00 23:00 07:00 Intake Total 1160 ml 780 ml Balance 1160 ml 780 ml Labs: Laboratory Tests Test 06/18/21 07:41 Glucose (Fingerstick) 116 mg/dL (70-99) H Current Medications: Meds: Laboratory Tests Test 06/18/21 07:41 Glucose (Fingerstick) 116 mg/dL Current Medications Medications (Trade) Dose Ordered Sig/Aparna Route PRN Reason Start Time Stop Time Status Last Admin Dose Admin Acetaminophen (Tylenol) 650 mg PRN Q6HRS PRN PO MILD PAIN / TEMP > 100.3'F 05/17/21 14:45 06/10/21 00:45 Multi-Ingredient Ointment (Analgesic [place]) 1 inna PRN QID PRN TP MUSCLE PAIN 05/17/21 14:45 Al Hydroxide/Mg Hydroxide (Mylanta Plus Xs) 15 ml PRN AFTMEALHC PRN PO DYSPEPSIA 05/17/21 14:45 Magnesium Hydroxide (Milk Of Magnesia) 2,400 mg PRN QHS PRN PO CONSTIPATION 05/17/21 14:45 06/18/21 10:33 Aspirin (Aspirin Enteric Coated) 81 mg DAILY PO 05/18/21 09:00 06/18/21 08:14 Budesonide (Pulmicort) 0.5 mg RTBID IH 05/17/21 20:00 05/18/21 13:26 DC Carvedilol (Coreg) 3.125 mg BIDWMEALS PO 05/17/21 17:00 06/18/21 17:20 Lisinopril (Prinivil) 5 mg DAILY PO 05/18/21 09:00 05/25/21 09:35 DC 05/24/21 08:39 Metformin HCl (Glucophage Xr) 500 mg DAILYWBKFT PO 05/18/21 08:00 06/18/21 08:14 Phenytoin Sodium (Dilantin) 100 mg BID PO 05/17/21 21:00 05/18/21 21:00 DC 05/18/21 20:13 Tamsulosin HCl (Flomax) 0.4 mg DAILY PO 05/18/21 09:00 06/18/21 08:15 Cyanocobalamin (Vitamin B-12) 1,000 mcg DAILY PO 05/18/21 09:00 06/18/21 08:14 Non-Formulary Medication (Ipratropium/ Albuterol Sulfate (Combivent Respimat Inhal)) 1 puff QID INH 05/17/21 17:00 05/17/21 15:02 DC Atorvastatin Calcium (Lipitor) 10 mg DAILY PO 05/18/21 09:00 06/18/21 08:15 Albuterol/ Ipratropium (Duoneb) 3 ml RTQID NEB 05/17/21 16:00 05/17/21 20:45 DC Albuterol/ Ipratropium (Combivent Respimat 20-100 Mcg) 1 puff RTQID INH 05/17/21 20:00 06/18/21 19:48 Gabapentin (Neurontin) 300 mg BID PO 05/17/21 21:00 06/18/21 19:50 Fluticasone Furoate (ARNUITY 100mcg ELLIPTA) 1 puff DAILY INH 05/18/21 14:00 05/21/21 08:27 DC 05/20/21 08:41 Phenytoin Sodium (Dilantin) 300 mg DAILY08 PO 05/19/21 08:00 06/06/21 17:30 DC 06/06/21 08:30 Duloxetine HCl (Cymbalta) 30 mg DAILY PO 05/19/21 09:00 05/25/21 15:56 DC 05/25/21 12:21 Mirtazapine (Remeron) 7.5 mg QHS PO 05/19/21 21:00 06/18/21 19:50 Trazodone HCl (Desyrel) 50 mg PRN QHS PRN PO sleep 05/19/21 12:30 06/11/21 21:31 Divalproex Sodium (Depakote Sprinkles) 125 mg 0900,1300,1700 PO 05/25/21 09:00 05/25/21 16:36 DC 05/25/21 12:20 Duloxetine HCl (Cymbalta) 30 mg DAILY PO 05/26/21 09:00 05/25/21 16:36 DC Duloxetine HCl (Cymbalta) 20 mg DAILY PO 05/26/21 09:00 05/25/21 16:36 DC Duloxetine HCl (Cymbalta) 30 mg DAILY PO 05/26/21 09:00 06/03/21 13:28 DC 06/03/21 08:10 Duloxetine HCl (Cymbalta) 30 mg DAILY PO 06/04/21 09:00 06/06/21 17:51 DC 06/06/21 08:31 Duloxetine HCl (Cymbalta) 20 mg DAILY PO 06/04/21 09:00 06/06/21 17:30 DC 06/06/21 08:31 Duloxetine HCl (Cymbalta) 20 mg HS PO 06/07/21 21:00 06/18/21 19:49 Phenytoin Sodium (Dilantin) 300 mg HS PO 06/07/21 21:00 06/13/21 00:04 DC 06/12/21 21:29 Duloxetine HCl (Cymbalta) 30 mg HS PO 06/07/21 21:00 06/18/21 19:50 Olanzapine (ZyPREXA ZYDIS) 2.5 mg PRN Q2HRS PRN PO PSYCHOSIS 06/10/21 18:45 Phenytoin Sodium (Dilantin) 100 mg 1X ONCE PO 06/13/21 00:30 06/13/21 00:31 DC 06/13/21 00:23 Phenytoin Sodium (Dilantin) 400 mg HS PO 06/13/21 21:00 06/18/21 19:49 Guaifenesin (Mucinex Er) 600 mg BID PO 06/14/21 21:00 06/18/21 19:50 I have reviewed the current psychotropics carefully including drug interactions. Risk benefit ratio favors no change other than as noted in my dictated progress note. Diagnosis: Problems: (1) Major depressive disorder (2) Impulse control disorder, unspecified (3) Anxiety disorder, unspecified (4) Dementia, vascular, with depression (5) Dementia, vascular, with delusions (6) Major neurocognitive disorder NIK LOYA MD Jun 18, 2021 22:29
--- NOTE | 2021-06-19 01:33 | NUR ---
LAst evening pt was in the day room and was cooperative with staff. He took meds whole and was fairly well oriented. He has had no behaviors tonight and has been sleeping since going to bed.
[2021-06-19 05:54] VITALS: BP 179/80
[2021-06-19] MEDS: IPRATROPIUM/ALBUTEROL 20/100mcg/INH INHALER. INH SCH ×4 (08:00→20:50)
[2021-06-19] MEDS: GABAPENTIN 300 MG CAPSULE. PO SCH ×2 (08:39→20:49)
[2021-06-19] MEDS: ASPIRIN ENTERIC COATED 81 MG TABLET.DR. PO SCH (08:39)
[2021-06-19] MEDS: CARVEDILOL 3.125 MG TABLET PO SCH ×2 (08:40→16:55)
[2021-06-19] MEDS: metFORMIN XR 500 MG TAB.ER.24H PO SCH (08:40)
[2021-06-19] MEDS: CYANOCOBALAMIN (VITAMIN B-12) 1,000 MCG TABLET. PO SCH (08:40)
[2021-06-19] MEDS: ATORVASTATIN CALCIUM 10 MG TABLET. PO SCH (08:41)
[2021-06-19] MEDS: TAMSULOSIN 0.4 MG CAP.ER.24H. PO SCH (08:41)
[2021-06-19 15:58] VITALS: BP 118/56
[2021-06-19] MEDS: DULoxetine HCL 30 MG CAPSULE.DR PO SCH (20:49)
[2021-06-19] MEDS: PHENYTOIN SODIUM EXTENDED 100 MG CAPSULE PO SCH (20:49)
[2021-06-19] MEDS: MIRTAZAPINE 7.5 MG TABLET. PO SCH (20:49)
[2021-06-19] MEDS: DULoxetine HCL 20 MG CAPSULE.DR PO SCH (20:49)
[2021-06-19] MEDS: MAGNESIUM HYDROXIDE 2,400 MG/30 ML ORAL.SUSP. PO PRN (20:50)
--- NOTE | 2021-06-19 20:52 | NUR ---
patient reports constipation. Given PRN MOM for constipation. Patient had spoken with Dr Parra on rounds, order received for daily colace.
--- NOTE | 2021-06-19 22:07 | PDOC ---
Exam Note: Leo Note: Please also refer to the separate dictated note~for this date of service dictated separately.~Patient seen individually. Discussed the patient with Nursing staff reviewed the chart.~Reviewed interim history and current functioning. Reviewed vital signs,~Labs/ Radiology~and current medications noted below. Continue current treatment with the changes noted in the dictated addendum note Assessment: Vital Signs/I&O: Vital Signs Date Time Temp Pulse Resp B/P (MAP) Pulse Ox O2 Delivery O2 Flow Rate FiO2 06/19/21 16:55 75 118/56 06/19/21 15:58 98.5 18 94 06/15/21 16:14 Room Air I & O 06/18/21 06/18/21 06/19/21 15:00 23:00 07:00 Intake Total 480 ml 240 ml 160 ml Balance 480 ml 240 ml 160 ml Labs: Laboratory Tests Test 06/19/21 07:45 Glucose (Fingerstick) 97 mg/dL (70-99) Current Medications: Meds: Laboratory Tests Test 06/19/21 07:45 Glucose (Fingerstick) 97 mg/dL Current Medications Medications (Trade) Dose Ordered Sig/Aparna Route PRN Reason Start Time Stop Time Status Last Admin Dose Admin Acetaminophen (Tylenol) 650 mg PRN Q6HRS PRN PO MILD PAIN / TEMP > 100.3'F 05/17/21 14:45 06/10/21 00:45 Multi-Ingredient Ointment (Analgesic [place]) 1 inna PRN QID PRN TP MUSCLE PAIN 05/17/21 14:45 Al Hydroxide/Mg Hydroxide (Mylanta Plus Xs) 15 ml PRN AFTMEALHC PRN PO DYSPEPSIA 05/17/21 14:45 Magnesium Hydroxide (Milk Of Magnesia) 2,400 mg PRN QHS PRN PO CONSTIPATION 05/17/21 14:45 06/19/21 20:50 Aspirin (Aspirin Enteric Coated) 81 mg DAILY PO 05/18/21 09:00 06/19/21 08:39 Budesonide (Pulmicort) 0.5 mg RTBID IH 05/17/21 20:00 05/18/21 13:26 DC Carvedilol (Coreg) 3.125 mg BIDWMEALS PO 05/17/21 17:00 06/19/21 16:55 Lisinopril (Prinivil) 5 mg DAILY PO 05/18/21 09:00 05/25/21 09:35 DC 05/24/21 08:39 Metformin HCl (Glucophage Xr) 500 mg DAILYWBKFT PO 05/18/21 08:00 06/19/21 08:40 Phenytoin Sodium (Dilantin) 100 mg BID PO 05/17/21 21:00 05/18/21 21:00 DC 05/18/21 20:13 Tamsulosin HCl (Flomax) 0.4 mg DAILY PO 05/18/21 09:00 06/19/21 08:41 Cyanocobalamin (Vitamin B-12) 1,000 mcg DAILY PO 05/18/21 09:00 06/19/21 08:40 Non-Formulary Medication (Ipratropium/ Albuterol Sulfate (Combivent Respimat Inhal)) 1 puff QID INH 05/17/21 17:00 05/17/21 15:02 DC Atorvastatin Calcium (Lipitor) 10 mg DAILY PO 05/18/21 09:00 06/19/21 08:41 Albuterol/ Ipratropium (Duoneb) 3 ml RTQID NEB 05/17/21 16:00 05/17/21 20:45 DC Albuterol/ Ipratropium (Combivent Respimat 20-100 Mcg) 1 puff RTQID INH 05/17/21 20:00 06/19/21 20:50 Gabapentin (Neurontin) 300 mg BID PO 05/17/21 21:00 06/19/21 20:49 Fluticasone Furoate (ARNUITY 100mcg ELLIPTA) 1 puff DAILY INH 05/18/21 14:00 05/21/21 08:27 DC 05/20/21 08:41 Phenytoin Sodium (Dilantin) 300 mg DAILY08 PO 05/19/21 08:00 06/06/21 17:30 DC 06/06/21 08:30 Duloxetine HCl (Cymbalta) 30 mg DAILY PO 05/19/21 09:00 05/25/21 15:56 DC 05/25/21 12:21 Mirtazapine (Remeron) 7.5 mg QHS PO 05/19/21 21:00 06/19/21 20:49 Trazodone HCl (Desyrel) 50 mg PRN QHS PRN PO sleep 05/19/21 12:30 06/11/21 21:31 Divalproex Sodium (Depakote Sprinkles) 125 mg 0900,1300,1700 PO 05/25/21 09:00 05/25/21 16:36 DC 05/25/21 12:20 Duloxetine HCl (Cymbalta) 30 mg DAILY PO 05/26/21 09:00 05/25/21 16:36 DC Duloxetine HCl (Cymbalta) 20 mg DAILY PO 05/26/21 09:00 05/25/21 16:36 DC Duloxetine HCl (Cymbalta) 30 mg DAILY PO 05/26/21 09:00 06/03/21 13:28 DC 06/03/21 08:10 Duloxetine HCl (Cymbalta) 30 mg DAILY PO 06/04/21 09:00 06/06/21 17:51 DC 06/06/21 08:31 Duloxetine HCl (Cymbalta) 20 mg DAILY PO 06/04/21 09:00 06/06/21 17:30 DC 06/06/21 08:31 Duloxetine HCl (Cymbalta) 20 mg HS PO 06/07/21 21:00 06/19/21 20:49 Phenytoin Sodium (Dilantin) 300 mg HS PO 06/07/21 21:00 06/13/21 00:04 DC 06/12/21 21:29 Duloxetine HCl (Cymbalta) 30 mg HS PO 06/07/21 21:00 06/19/21 20:49 Olanzapine (ZyPREXA ZYDIS) 2.5 mg PRN Q2HRS PRN PO PSYCHOSIS 06/10/21 18:45 Phenytoin Sodium (Dilantin) 100 mg 1X ONCE PO 06/13/21 00:30 06/13/21 00:31 DC 06/13/21 00:23 Phenytoin Sodium (Dilantin) 400 mg HS PO 06/13/21 21:00 06/19/21 20:49 Guaifenesin (Mucinex Er) 600 mg BID PO 06/14/21 21:00 06/19/21 20:49 Docusate Sodium (Colace) 100 mg DAILY PO 06/20/21 09:00 I have reviewed the current psychotropics carefully including drug interactions. Risk benefit ratio favors no change other than as noted in my dictated progress note. Diagnosis: Problems: (1) Major depressive disorder (2) Impulse control disorder, unspecified (3) Anxiety disorder, unspecified (4) Dementia, vascular, with depression (5) Dementia, vascular, with delusions (6) Major neurocognitive disorder NIK LOYA MD Jun 19, 2021 22:07
--- NOTE | 2021-06-19 22:09 | NUR ---
Patient is irritable this night. His complaint is that he has been asking for Ensure with his meals and is told to "eat what is served". Patient spent some time in the bathroom early in the shift having a large, hard, dry bowel movement. Patient stated that this is not his normal bowel pattern. Education was provided that patient should drink more water to help with constipation. Patient was already in bed when this nurse approached him for assessment and medications. He was compliant with medications and took them whole with water.
[2021-06-20 07:02] VITALS: BP 149/79
[2021-06-20] MEDS: ATORVASTATIN CALCIUM 10 MG TABLET. PO SCH (08:11)
[2021-06-20] MEDS: ASPIRIN ENTERIC COATED 81 MG TABLET.DR. PO SCH (08:11)
[2021-06-20] MEDS: CARVEDILOL 3.125 MG TABLET PO SCH ×2 (08:11→16:43)
[2021-06-20] MEDS: CYANOCOBALAMIN (VITAMIN B-12) 1,000 MCG TABLET. PO SCH (08:11)
[2021-06-20] MEDS: TAMSULOSIN 0.4 MG CAP.ER.24H. PO SCH (08:11)
[2021-06-20] MEDS: IPRATROPIUM/ALBUTEROL 20/100mcg/INH INHALER. INH SCH ×4 (08:11→21:36)
[2021-06-20] MEDS: DULoxetine HCL 30 MG CAPSULE.DR PO SCH (08:12)
[2021-06-20] MEDS: metFORMIN XR 500 MG TAB.ER.24H PO SCH (08:12)
--- NOTE | 2021-06-20 08:54 | PDOC ---
Exam Note: Leo Note: This note is a late entry for 06/18/2021 covers elements not covered in my initial note. Subjective: The patient was seen individually in the evening of 06/18/2021 with Anila KOWALSKI, discussed and reviewed the chart. The patient slept 5-1/4 hours previous night. He is up for meals, not agitated or aggressive, compliant with medications. Coughing is better. He is on Mucinex. I met with the patient in his room. Review of Systems: Ambulation impaired in wheelchair. No CV, , pulmonary, eye, ENT system symptoms on review. Mental Status Exam: The patient is alert and oriented. He is quite verbal, interactive. Speech moderate latency coherent. Often response is monosyllabic. Abstraction fair. Computation impaired. Language function intact. Attention span fair. Short-term memory is impaired. Mood remains depressed, anxious, somewhat distractible. No suicidal or homicidal ideation. Laboratory Data: Reviewed. 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 Anxiety disorder unspecified. Impulse control disorder unspecified. Plan: Continue current psychotropics. Adjust his Cymbalta further for his mood symptoms as clinically indicated. Assessment: Vital Signs/I&O: Vital Signs Date Time Temp Pulse Resp B/P (MAP) Pulse Ox O2 Delivery O2 Flow Rate FiO2 06/20/21 08:11 84 149/79 06/20/21 07:02 98.1 18 90 Room Air I & O 06/19/21 06/19/21 06/20/21 15:00 23:00 07:00 Intake Total 840 ml 720 ml Balance 840 ml 720 ml Labs: Laboratory Tests Test 06/20/21 08:09 Glucose (Fingerstick) 149 mg/dL (70-99) H Current Medications: Meds: Laboratory Tests Test 06/20/21 08:09 Glucose (Fingerstick) 149 mg/dL Current Medications Medications (Trade) Dose Ordered Sig/Aparna Route PRN Reason Start Time Stop Time Status Last Admin Dose Admin Acetaminophen (Tylenol) 650 mg PRN Q6HRS PRN PO MILD PAIN / TEMP > 100.3'F 05/17/21 14:45 06/10/21 00:45 Multi-Ingredient Ointment (Analgesic [employer]) 1 inna PRN QID PRN TP MUSCLE PAIN 05/17/21 14:45 Al Hydroxide/Mg Hydroxide (Mylanta Plus Xs) 15 ml PRN AFTMEALHC PRN PO DYSPEPSIA 05/17/21 14:45 Magnesium Hydroxide (Milk Of Magnesia) 2,400 mg PRN QHS PRN PO CONSTIPATION 05/17/21 14:45 06/19/21 20:50 Aspirin (Aspirin Enteric Coated) 81 mg DAILY PO 05/18/21 09:00 06/20/21 08:11 Budesonide (Pulmicort) 0.5 mg RTBID IH 05/17/21 20:00 05/18/21 13:26 DC Carvedilol (Coreg) 3.125 mg BIDWMEALS PO 05/17/21 17:00 06/20/21 08:11 Lisinopril (Prinivil) 5 mg DAILY PO 05/18/21 09:00 05/25/21 09:35 DC 05/24/21 08:39 Metformin HCl (Glucophage Xr) 500 mg DAILYWBKFT PO 05/18/21 08:00 06/20/21 08:12 Phenytoin Sodium (Dilantin) 100 mg BID PO 05/17/21 21:00 05/18/21 21:00 DC 05/18/21 20:13 Tamsulosin HCl (Flomax) 0.4 mg DAILY PO 05/18/21 09:00 06/20/21 08:11 Cyanocobalamin (Vitamin B-12) 1,000 mcg DAILY PO 05/18/21 09:00 06/20/21 08:11 Non-Formulary Medication (Ipratropium/ Albuterol Sulfate (Combivent Respimat Inhal)) 1 puff QID INH 05/17/21 17:00 05/17/21 15:02 DC Atorvastatin Calcium (Lipitor) 10 mg DAILY PO 05/18/21 09:00 06/20/21 08:11 Albuterol/ Ipratropium (Duoneb) 3 ml RTQID NEB 05/17/21 16:00 05/17/21 20:45 DC Albuterol/ Ipratropium (Combivent Respimat 20-100 Mcg) 1 puff RTQID INH 05/17/21 20:00 06/20/21 08:11 Gabapentin (Neurontin) 300 mg BID PO 05/17/21 21:00 06/19/21 20:49 Fluticasone Furoate (ARNUITY 100mcg ELLIPTA) 1 puff DAILY INH 05/18/21 14:00 05/21/21 08:27 DC 05/20/21 08:41 Phenytoin Sodium (Dilantin) 300 mg DAILY08 PO 05/19/21 08:00 06/06/21 17:30 DC 06/06/21 08:30 Duloxetine HCl (Cymbalta) 30 mg DAILY PO 05/19/21 09:00 05/25/21 15:56 DC 05/25/21 12:21 Mirtazapine (Remeron) 7.5 mg QHS PO 05/19/21 21:00 06/19/21 20:49 Trazodone HCl (Desyrel) 50 mg PRN QHS PRN PO sleep 05/19/21 12:30 06/11/21 21:31 Divalproex Sodium (Depakote Sprinkles) 125 mg 0900,1300,1700 PO 05/25/21 09:00 05/25/21 16:36 DC 05/25/21 12:20 Duloxetine HCl (Cymbalta) 30 mg DAILY PO 05/26/21 09:00 05/25/21 16:36 DC Duloxetine HCl (Cymbalta) 20 mg DAILY PO 05/26/21 09:00 05/25/21 16:36 DC Duloxetine HCl (Cymbalta) 30 mg DAILY PO 05/26/21 09:00 06/03/21 13:28 DC 06/03/21 08:10 Duloxetine HCl (Cymbalta) 30 mg DAILY PO 06/04/21 09:00 06/06/21 17:51 DC 06/06/21 08:31 Duloxetine HCl (Cymbalta) 20 mg DAILY PO 06/04/21 09:00 06/06/21 17:30 DC 06/06/21 08:31 Duloxetine HCl (Cymbalta) 20 mg HS PO 06/07/21 21:00 06/19/21 20:49 Phenytoin Sodium (Dilantin) 300 mg HS PO 06/07/21 21:00 06/13/21 00:04 DC 06/12/21 21:29 Duloxetine HCl (Cymbalta) 30 mg HS PO 06/07/21 21:00 06/20/21 08:12 Olanzapine (ZyPREXA ZYDIS) 2.5 mg PRN Q2HRS PRN PO PSYCHOSIS 06/10/21 18:45 Phenytoin Sodium (Dilantin) 100 mg 1X ONCE PO 06/13/21 00:30 06/13/21 00:31 DC 06/13/21 00:23 Phenytoin Sodium (Dilantin) 400 mg HS PO 06/13/21 21:00 06/19/21 20:49 Guaifenesin (Mucinex Er) 600 mg BID PO 06/14/21 21:00 06/20/21 08:12 Docusate Sodium (Colace) 100 mg DAILY PO 06/20/21 09:00 I have reviewed the current psychotropics carefully including drug interactions. Risk benefit ratio favors no change other than as noted in my dictated progress note. Diagnosis: Problems: (1) Major depressive disorder (2) Impulse control disorder, unspecified (3) Anxiety disorder, unspecified (4) Dementia, vascular, with depression (5) Dementia, vascular, with delusions (6) Major neurocognitive disorder NIK LOYA MD Jun 20, 2021 08:54
--- NOTE | 2021-06-20 09:27 | PDOC ---
Exam Note: Leo Note: This note is a late entry for 06/19/2021 covers elements not covered in my initial note. Subjective: The patient was seen individually in the evening of 06/19/2021 with Anila KOWALSKI, discussed and reviewed the chart. The patient slept 7 hours previous night. He has been cooperative during the day but in the evening he complained of constipation. He states he had to dig himself out with his fingers. We will give him a Milk of Magnesia and start him on Colace. We will defer to Dr. Villarreal after this. Review of Systems: Ambulation impaired in wheelchair. No CV, , pulmonary, eye, ENT system symptoms on review. Mental Status Exam: The patient is alert and oriented. Speech moderate latency coherent. Often response is monosyllabic. Abstraction fair. Computation impaired. Language function intact. Attention span fair. Short-term memory is impaired. Mood remains depressed, anxious, somewhat distractible. No suicidal or homicidal ideation. Laboratory Data: Reviewed. 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 Anxiety disorder unspecified. Impulse control disorder unspecified. Plan: Continue current psychotropics. Assessment: Vital Signs/I&O: Vital Signs Date Time Temp Pulse Resp B/P (MAP) Pulse Ox O2 Delivery O2 Flow Rate FiO2 06/20/21 08:11 84 149/79 06/20/21 07:02 98.1 18 90 Room Air I & O 06/19/21 06/19/21 06/20/21 15:00 23:00 07:00 Intake Total 840 ml 720 ml Balance 840 ml 720 ml Labs: Laboratory Tests Test 06/20/21 08:09 Glucose (Fingerstick) 149 mg/dL (70-99) H Current Medications: Meds: Laboratory Tests Test 06/20/21 08:09 Glucose (Fingerstick) 149 mg/dL Current Medications Medications (Trade) Dose Ordered Sig/Aparna Route PRN Reason Start Time Stop Time Status Last Admin Dose Admin Acetaminophen (Tylenol) 650 mg PRN Q6HRS PRN PO MILD PAIN / TEMP > 100.3'F 05/17/21 14:45 06/10/21 00:45 Multi-Ingredient Ointment (Analgesic [employer]) 1 inna PRN QID PRN TP MUSCLE PAIN 05/17/21 14:45 Al Hydroxide/Mg Hydroxide (Mylanta Plus Xs) 15 ml PRN AFTMEALHC PRN PO DYSPEPSIA 05/17/21 14:45 Magnesium Hydroxide (Milk Of Magnesia) 2,400 mg PRN QHS PRN PO CONSTIPATION 05/17/21 14:45 06/19/21 20:50 Aspirin (Aspirin Enteric Coated) 81 mg DAILY PO 05/18/21 09:00 06/20/21 08:11 Budesonide (Pulmicort) 0.5 mg RTBID IH 05/17/21 20:00 05/18/21 13:26 DC Carvedilol (Coreg) 3.125 mg BIDWMEALS PO 05/17/21 17:00 06/20/21 08:11 Lisinopril (Prinivil) 5 mg DAILY PO 05/18/21 09:00 05/25/21 09:35 DC 05/24/21 08:39 Metformin HCl (Glucophage Xr) 500 mg DAILYWBKFT PO 05/18/21 08:00 06/20/21 08:12 Phenytoin Sodium (Dilantin) 100 mg BID PO 05/17/21 21:00 05/18/21 21:00 DC 05/18/21 20:13 Tamsulosin HCl (Flomax) 0.4 mg DAILY PO 05/18/21 09:00 06/20/21 08:11 Cyanocobalamin (Vitamin B-12) 1,000 mcg DAILY PO 05/18/21 09:00 06/20/21 08:11 Non-Formulary Medication (Ipratropium/ Albuterol Sulfate (Combivent Respimat Inhal)) 1 puff QID INH 05/17/21 17:00 05/17/21 15:02 DC Atorvastatin Calcium (Lipitor) 10 mg DAILY PO 05/18/21 09:00 06/20/21 08:11 Albuterol/ Ipratropium (Duoneb) 3 ml RTQID NEB 05/17/21 16:00 05/17/21 20:45 DC Albuterol/ Ipratropium (Combivent Respimat 20-100 Mcg) 1 puff RTQID INH 05/17/21 20:00 06/20/21 08:11 Gabapentin (Neurontin) 300 mg BID PO 05/17/21 21:00 06/19/21 20:49 Fluticasone Furoate (ARNUITY 100mcg ELLIPTA) 1 puff DAILY INH 05/18/21 14:00 05/21/21 08:27 DC 05/20/21 08:41 Phenytoin Sodium (Dilantin) 300 mg DAILY08 PO 05/19/21 08:00 06/06/21 17:30 DC 06/06/21 08:30 Duloxetine HCl (Cymbalta) 30 mg DAILY PO 05/19/21 09:00 05/25/21 15:56 DC 05/25/21 12:21 Mirtazapine (Remeron) 7.5 mg QHS PO 05/19/21 21:00 06/19/21 20:49 Trazodone HCl (Desyrel) 50 mg PRN QHS PRN PO sleep 05/19/21 12:30 06/11/21 21:31 Divalproex Sodium (Depakote Sprinkles) 125 mg 0900,1300,1700 PO 05/25/21 09:00 05/25/21 16:36 DC 05/25/21 12:20 Duloxetine HCl (Cymbalta) 30 mg DAILY PO 05/26/21 09:00 05/25/21 16:36 DC Duloxetine HCl (Cymbalta) 20 mg DAILY PO 05/26/21 09:00 05/25/21 16:36 DC Duloxetine HCl (Cymbalta) 30 mg DAILY PO 05/26/21 09:00 06/03/21 13:28 DC 06/03/21 08:10 Duloxetine HCl (Cymbalta) 30 mg DAILY PO 06/04/21 09:00 06/06/21 17:51 DC 06/06/21 08:31 Duloxetine HCl (Cymbalta) 20 mg DAILY PO 06/04/21 09:00 06/06/21 17:30 DC 06/06/21 08:31 Duloxetine HCl (Cymbalta) 20 mg HS PO 06/07/21 21:00 06/19/21 20:49 Phenytoin Sodium (Dilantin) 300 mg HS PO 06/07/21 21:00 06/13/21 00:04 DC 06/12/21 21:29 Duloxetine HCl (Cymbalta) 30 mg HS PO 06/07/21 21:00 06/20/21 08:12 Olanzapine (ZyPREXA ZYDIS) 2.5 mg PRN Q2HRS PRN PO PSYCHOSIS 06/10/21 18:45 Phenytoin Sodium (Dilantin) 100 mg 1X ONCE PO 06/13/21 00:30 06/13/21 00:31 DC 06/13/21 00:23 Phenytoin Sodium (Dilantin) 400 mg HS PO 06/13/21 21:00 06/19/21 20:49 Guaifenesin (Mucinex Er) 600 mg BID PO 06/14/21 21:00 06/20/21 08:12 Docusate Sodium (Colace) 100 mg DAILY PO 06/20/21 09:00 I have reviewed the current psychotropics carefully including drug interactions. Risk benefit ratio favors no change other than as noted in my dictated progress note. Diagnosis: Problems: (1) Major depressive disorder (2) Impulse control disorder, unspecified (3) Anxiety disorder, unspecified (4) Dementia, vascular, with depression (5) Dementia, vascular, with delusions (6) Major neurocognitive disorder NIK LOYA MD Jun 20, 2021 09:27
[2021-06-20] MEDS: DOCUSATE SODIUM 100 MG CAPSULE PO SCH (11:51)
[2021-06-20] MEDS: GABAPENTIN 300 MG CAPSULE. PO SCH ×2 (11:51→21:35)
--- NOTE | 2021-06-20 13:55 | NUR ---
PATIENT IS DEMANDING AND IRRITABLE THIS AM UPON ASSESSMENT REGARDING HIS MEAL AND ENSURE INTAKE. PATIENT COOPERATED WITH ASSESSMENT, COMPLIANT WITH MEDS. PATIENT IS CURRENTLY LOCATED IN A BED ASLEEP, NO OTHER BEHAVIOR NOTED AT THIS TIME.
[2021-06-20 16:08] VITALS: BP 155/76
[2021-06-20] MEDS: DULoxetine HCL 20 MG CAPSULE.DR PO SCH (21:35)
[2021-06-20] MEDS: PHENYTOIN SODIUM EXTENDED 100 MG CAPSULE PO SCH (21:35)
[2021-06-20] MEDS: MIRTAZAPINE 7.5 MG TABLET. PO SCH (21:35)
--- NOTE | 2021-06-20 22:13 | PDOC ---
Exam Note: Leo Note: Please also refer to the separate dictated note~for this date of service dictated separately.~Patient seen individually. Discussed the patient with Nursing staff reviewed the chart.~Reviewed interim history and current functioning. Reviewed vital signs,~Labs/ Radiology~and current medications noted below. Continue current treatment with the changes noted in the dictated addendum note Assessment: Vital Signs/I&O: Vital Signs Date Time Temp Pulse Resp B/P (MAP) Pulse Ox O2 Delivery O2 Flow Rate FiO2 06/20/21 16:43 82 155/76 06/20/21 16:08 97.9 20 95 06/20/21 07:02 Room Air I & O 06/19/21 06/19/21 06/20/21 15:00 23:00 07:00 Intake Total 840 ml 720 ml Balance 840 ml 720 ml Labs: Laboratory Tests Test 06/20/21 08:09 Glucose (Fingerstick) 149 mg/dL (70-99) H Current Medications: Meds: Laboratory Tests Test 06/20/21 08:09 Glucose (Fingerstick) 149 mg/dL Current Medications Medications (Trade) Dose Ordered Sig/Aparna Route PRN Reason Start Time Stop Time Status Last Admin Dose Admin Acetaminophen (Tylenol) 650 mg PRN Q6HRS PRN PO MILD PAIN / TEMP > 100.3'F 05/17/21 14:45 06/10/21 00:45 Multi-Ingredient Ointment (Analgesic [place]) 1 inna PRN QID PRN TP MUSCLE PAIN 05/17/21 14:45 Al Hydroxide/Mg Hydroxide (Mylanta Plus Xs) 15 ml PRN AFTMEALHC PRN PO DYSPEPSIA 05/17/21 14:45 Magnesium Hydroxide (Milk Of Magnesia) 2,400 mg PRN QHS PRN PO CONSTIPATION 05/17/21 14:45 06/19/21 20:50 Aspirin (Aspirin Enteric Coated) 81 mg DAILY PO 05/18/21 09:00 06/20/21 08:11 Budesonide (Pulmicort) 0.5 mg RTBID IH 05/17/21 20:00 05/18/21 13:26 DC Carvedilol (Coreg) 3.125 mg BIDWMEALS PO 05/17/21 17:00 06/20/21 16:43 Lisinopril (Prinivil) 5 mg DAILY PO 05/18/21 09:00 05/25/21 09:35 DC 05/24/21 08:39 Metformin HCl (Glucophage Xr) 500 mg DAILYWBKFT PO 05/18/21 08:00 06/20/21 08:12 Phenytoin Sodium (Dilantin) 100 mg BID PO 05/17/21 21:00 05/18/21 21:00 DC 05/18/21 20:13 Tamsulosin HCl (Flomax) 0.4 mg DAILY PO 05/18/21 09:00 06/20/21 08:11 Cyanocobalamin (Vitamin B-12) 1,000 mcg DAILY PO 05/18/21 09:00 06/20/21 08:11 Non-Formulary Medication (Ipratropium/ Albuterol Sulfate (Combivent Respimat Inhal)) 1 puff QID INH 05/17/21 17:00 05/17/21 15:02 DC Atorvastatin Calcium (Lipitor) 10 mg DAILY PO 05/18/21 09:00 06/20/21 08:11 Albuterol/ Ipratropium (Duoneb) 3 ml RTQID NEB 05/17/21 16:00 05/17/21 20:45 DC Albuterol/ Ipratropium (Combivent Respimat 20-100 Mcg) 1 puff RTQID INH 05/17/21 20:00 06/20/21 21:36 Gabapentin (Neurontin) 300 mg BID PO 05/17/21 21:00 06/20/21 21:35 Fluticasone Furoate (ARNUITY 100mcg ELLIPTA) 1 puff DAILY INH 05/18/21 14:00 05/21/21 08:27 DC 05/20/21 08:41 Phenytoin Sodium (Dilantin) 300 mg DAILY08 PO 05/19/21 08:00 06/06/21 17:30 DC 06/06/21 08:30 Duloxetine HCl (Cymbalta) 30 mg DAILY PO 05/19/21 09:00 05/25/21 15:56 DC 05/25/21 12:21 Mirtazapine (Remeron) 7.5 mg QHS PO 05/19/21 21:00 06/20/21 21:35 Trazodone HCl (Desyrel) 50 mg PRN QHS PRN PO sleep 05/19/21 12:30 06/11/21 21:31 Divalproex Sodium (Depakote Sprinkles) 125 mg 0900,1300,1700 PO 05/25/21 09:00 05/25/21 16:36 DC 05/25/21 12:20 Duloxetine HCl (Cymbalta) 30 mg DAILY PO 05/26/21 09:00 05/25/21 16:36 DC Duloxetine HCl (Cymbalta) 20 mg DAILY PO 05/26/21 09:00 05/25/21 16:36 DC Duloxetine HCl (Cymbalta) 30 mg DAILY PO 05/26/21 09:00 06/03/21 13:28 DC 06/03/21 08:10 Duloxetine HCl (Cymbalta) 30 mg DAILY PO 06/04/21 09:00 06/06/21 17:51 DC 06/06/21 08:31 Duloxetine HCl (Cymbalta) 20 mg DAILY PO 06/04/21 09:00 06/06/21 17:30 DC 06/06/21 08:31 Duloxetine HCl (Cymbalta) 20 mg HS PO 06/07/21 21:00 06/20/21 21:35 Phenytoin Sodium (Dilantin) 300 mg HS PO 06/07/21 21:00 06/13/21 00:04 DC 06/12/21 21:29 Duloxetine HCl (Cymbalta) 30 mg HS PO 06/07/21 21:00 06/20/21 08:12 Olanzapine (ZyPREXA ZYDIS) 2.5 mg PRN Q2HRS PRN PO PSYCHOSIS 06/10/21 18:45 06/20/21 21:36 Phenytoin Sodium (Dilantin) 100 mg 1X ONCE PO 06/13/21 00:30 06/13/21 00:31 DC 06/13/21 00:23 Phenytoin Sodium (Dilantin) 400 mg HS PO 06/13/21 21:00 06/20/21 21:35 Guaifenesin (Mucinex Er) 600 mg BID PO 06/14/21 21:00 06/20/21 21:35 Docusate Sodium (Colace) 100 mg DAILY PO 06/20/21 09:00 06/20/21 11:51 Current Medications Medications (Trade) Dose Ordered Sig/Aparna Route PRN Reason Start Time Stop Time Status Last Admin Dose Admin Docusate Sodium (Colace) 100 mg DAILY PO 06/20/21 09:00 06/20/21 11:51 I have reviewed the current psychotropics carefully including drug interactions. Risk benefit ratio favors no change other than as noted in my dictated progress note. Diagnosis: Problems: (1) Major depressive disorder (2) Impulse control disorder, unspecified (3) Anxiety disorder, unspecified (4) Dementia, vascular, with depression (5) Dementia, vascular, with delusions (6) Major neurocognitive disorder NIK LOYA MD Jun 20, 2021 22:13
--- NOTE | 2021-06-20 22:18 | NUR ---
Patient has been demanding and attention seeking since shift change. He is fixated on getting his Dilantin early and states that he will have a seizure if he doesn't get it immediately (it was 1899). Patient asked many staff members many times for his medication, even though it was explained to him multiple times by several nurses that the Dilantin is scheduled to be given at 2099. At around 2044 patient stated saying that he "had a seizure and fell off the toilet". This did not happen as a nurse had observed him get off the toilet. Patient told Dr Parra about this "seizure" when he spoke with him by televideo for nightly rounds and Dr Parra told patient that the Dilantin has been adjusted by Dr Newman to a therapeutic level and is being monitored by blood levels. Patient continued to demand the Dilantin, he was sitting in the hallway and asking everyone that passed him if he could get his Dilantin. Even though nurse had already provided education and told the patient multiple times that there was Dilantin with his scheduled 2100 medications, he continued to perseverate. PRN zyprexa was given to patient for agitation at 2139 as he did not calm down even after he received his Dilantin. Patient eventually went to bed. Will continue to monitor.
[2021-06-21 05:38] VITALS: BP 151/64
--- NOTE | 2021-06-21 06:23 | NUR ---
Patient reported that he has been having "seizures" this morning. No seizure activity has been observed by staff. Last phenytoin level was 06/15 9.0. Dose is currently Dilantin 400mg HS. Will pass on in report so that dayshift can notify Dr Newman.
[2021-06-21] MEDS: ASPIRIN ENTERIC COATED 81 MG TABLET.DR. PO SCH (08:11)
[2021-06-21] MEDS: CYANOCOBALAMIN (VITAMIN B-12) 1,000 MCG TABLET. PO SCH (08:11)
[2021-06-21] MEDS: DOCUSATE SODIUM 100 MG CAPSULE PO SCH (08:11)
[2021-06-21] MEDS: IPRATROPIUM/ALBUTEROL 20/100mcg/INH INHALER. INH SCH ×4 (08:11→20:32)
[2021-06-21] MEDS: metFORMIN XR 500 MG TAB.ER.24H PO SCH (08:11)
[2021-06-21] MEDS: GABAPENTIN 300 MG CAPSULE. PO SCH ×2 (08:12→20:34)
[2021-06-21] MEDS: TAMSULOSIN 0.4 MG CAP.ER.24H. PO SCH (08:12)
[2021-06-21] MEDS: ATORVASTATIN CALCIUM 10 MG TABLET. PO SCH (08:12)
[2021-06-21] MEDS: CARVEDILOL 3.125 MG TABLET PO SCH ×2 (08:13→17:19)
--- NOTE | 2021-06-21 11:58 | NUR ---
Nursing Note: Pt was calm, cooperative, and medication compliant. Pt wandered the unit and then went back to his room and laid down in bed until lunch time.
[2021-06-21 15:56] VITALS: BP 169/68
[2021-06-21] MEDS: DULoxetine HCL 30 MG CAPSULE.DR PO SCH (20:32)
[2021-06-21] MEDS: PHENYTOIN SODIUM EXTENDED 100 MG CAPSULE PO SCH (20:33)
[2021-06-21] MEDS: MIRTAZAPINE 7.5 MG TABLET. PO SCH (20:34)
[2021-06-21] MEDS: DULoxetine HCL 20 MG CAPSULE.DR PO SCH (20:34)
--- NOTE | 2021-06-21 22:07 | NUR ---
Patient in day room sitting in his wheelchair socializing with peers. He was yodeling and watching the [place] on tv. Patient compliant with medications taken whole and cooperative with assessment. No adverse behaviors noted this shift.
--- NOTE | 2021-06-21 22:07 | PDOC ---
Exam Note: Leo Note: Please also refer to the separate dictated note~for this date of service dictated separately.~Patient seen individually. Discussed the patient with Nursing staff reviewed the chart.~Reviewed interim history and current functioning. Reviewed vital signs,~Labs/ Radiology~and current medications noted below. Continue current treatment with the changes noted in the dictated addendum note Assessment: Vital Signs/I&O: Vital Signs Date Time Temp Pulse Resp B/P (MAP) Pulse Ox O2 Delivery O2 Flow Rate FiO2 06/21/21 17:19 85 169/68 06/21/21 15:56 97.7 18 95 06/20/21 07:02 Room Air I & O 06/20/21 06/20/21 06/21/21 15:00 23:00 07:00 Intake Total 480 ml 600 ml Balance 480 ml 600 ml Labs: Laboratory Tests Test 06/21/21 07:10 Glucose (Fingerstick) 102 mg/dL (70-99) H Current Medications: Meds: Laboratory Tests Test 06/21/21 07:10 Glucose (Fingerstick) 102 mg/dL Current Medications Medications (Trade) Dose Ordered Sig/Aparna Route PRN Reason Start Time Stop Time Status Last Admin Dose Admin Acetaminophen (Tylenol) 650 mg PRN Q6HRS PRN PO MILD PAIN / TEMP > 100.3'F 05/17/21 14:45 06/10/21 00:45 Multi-Ingredient Ointment (Analgesic [place]) 1 inna PRN QID PRN TP MUSCLE PAIN 05/17/21 14:45 Al Hydroxide/Mg Hydroxide (Mylanta Plus Xs) 15 ml PRN AFTMEALHC PRN PO DYSPEPSIA 05/17/21 14:45 Magnesium Hydroxide (Milk Of Magnesia) 2,400 mg PRN QHS PRN PO CONSTIPATION 05/17/21 14:45 06/19/21 20:50 Aspirin (Aspirin Enteric Coated) 81 mg DAILY PO 05/18/21 09:00 06/21/21 08:11 Budesonide (Pulmicort) 0.5 mg RTBID IH 05/17/21 20:00 05/18/21 13:26 DC Carvedilol (Coreg) 3.125 mg BIDWMEALS PO 05/17/21 17:00 06/21/21 17:19 Lisinopril (Prinivil) 5 mg DAILY PO 05/18/21 09:00 05/25/21 09:35 DC 05/24/21 08:39 Metformin HCl (Glucophage Xr) 500 mg DAILYWBKFT PO 05/18/21 08:00 06/21/21 08:11 Phenytoin Sodium (Dilantin) 100 mg BID PO 05/17/21 21:00 05/18/21 21:00 DC 05/18/21 20:13 Tamsulosin HCl (Flomax) 0.4 mg DAILY PO 05/18/21 09:00 06/21/21 08:12 Cyanocobalamin (Vitamin B-12) 1,000 mcg DAILY PO 05/18/21 09:00 06/21/21 08:11 Non-Formulary Medication (Ipratropium/ Albuterol Sulfate (Combivent Respimat Inhal)) 1 puff QID INH 05/17/21 17:00 05/17/21 15:02 DC Atorvastatin Calcium (Lipitor) 10 mg DAILY PO 05/18/21 09:00 06/21/21 08:12 Albuterol/ Ipratropium (Duoneb) 3 ml RTQID NEB 05/17/21 16:00 05/17/21 20:45 DC Albuterol/ Ipratropium (Combivent Respimat 20-100 Mcg) 1 puff RTQID INH 05/17/21 20:00 06/21/21 20:32 Gabapentin (Neurontin) 300 mg BID PO 05/17/21 21:00 06/21/21 20:34 Fluticasone Furoate (ARNUITY 100mcg ELLIPTA) 1 puff DAILY INH 05/18/21 14:00 05/21/21 08:27 DC 05/20/21 08:41 Phenytoin Sodium (Dilantin) 300 mg DAILY08 PO 05/19/21 08:00 06/06/21 17:30 DC 06/06/21 08:30 Duloxetine HCl (Cymbalta) 30 mg DAILY PO 05/19/21 09:00 05/25/21 15:56 DC 05/25/21 12:21 Mirtazapine (Remeron) 7.5 mg QHS PO 05/19/21 21:00 06/21/21 20:34 Trazodone HCl (Desyrel) 50 mg PRN QHS PRN PO sleep 05/19/21 12:30 06/11/21 21:31 Divalproex Sodium (Depakote Sprinkles) 125 mg 0900,1300,1700 PO 05/25/21 09:00 05/25/21 16:36 DC 05/25/21 12:20 Duloxetine HCl (Cymbalta) 30 mg DAILY PO 05/26/21 09:00 05/25/21 16:36 DC Duloxetine HCl (Cymbalta) 20 mg DAILY PO 05/26/21 09:00 05/25/21 16:36 DC Duloxetine HCl (Cymbalta) 30 mg DAILY PO 05/26/21 09:00 06/03/21 13:28 DC 06/03/21 08:10 Duloxetine HCl (Cymbalta) 30 mg DAILY PO 06/04/21 09:00 06/06/21 17:51 DC 06/06/21 08:31 Duloxetine HCl (Cymbalta) 20 mg DAILY PO 06/04/21 09:00 06/06/21 17:30 DC 06/06/21 08:31 Duloxetine HCl (Cymbalta) 20 mg HS PO 06/07/21 21:00 06/21/21 20:34 Phenytoin Sodium (Dilantin) 300 mg HS PO 06/07/21 21:00 06/13/21 00:04 DC 06/12/21 21:29 Duloxetine HCl (Cymbalta) 30 mg HS PO 06/07/21 21:00 06/21/21 20:32 Olanzapine (ZyPREXA ZYDIS) 2.5 mg PRN Q2HRS PRN PO PSYCHOSIS 06/10/21 18:45 06/20/21 21:36 Phenytoin Sodium (Dilantin) 100 mg 1X ONCE PO 06/13/21 00:30 06/13/21 00:31 DC 06/13/21 00:23 Phenytoin Sodium (Dilantin) 400 mg HS PO 06/13/21 21:00 06/21/21 16:03 DC 06/20/21 21:35 Guaifenesin (Mucinex Er) 600 mg BID PO 06/14/21 21:00 06/21/21 20:32 Docusate Sodium (Colace) 100 mg DAILY PO 06/20/21 09:00 06/21/21 08:11 Phenytoin Sodium (Dilantin) 500 mg HS PO 06/21/21 21:00 06/21/21 20:33 Current Medications Medications (Trade) Dose Ordered Sig/Aparna Route PRN Reason Start Time Stop Time Status Last Admin Dose Admin Phenytoin Sodium (Dilantin) 500 mg HS PO 06/21/21 21:00 06/21/21 20:33 I have reviewed the current psychotropics carefully including drug interactions. Risk benefit ratio favors no change other than as noted in my dictated progress note. Diagnosis: Problems: (1) Major depressive disorder (2) Impulse control disorder, unspecified (3) Anxiety disorder, unspecified (4) Dementia, vascular, with depression (5) Dementia, vascular, with delusions (6) Major neurocognitive disorder NIK LOYA MD Jun 21, 2021 22:07
[2021-06-22] MEDS: metFORMIN XR 500 MG TAB.ER.24H PO SCH (04:28)
[2021-06-22] MEDS: TAMSULOSIN 0.4 MG CAP.ER.24H. PO SCH (04:29)
[2021-06-22] MEDS: CARVEDILOL 3.125 MG TABLET PO SCH ×2 (04:29→17:30)
[2021-06-22] MEDS: ATORVASTATIN CALCIUM 10 MG TABLET. PO SCH (04:29)
[2021-06-22] MEDS: CYANOCOBALAMIN (VITAMIN B-12) 1,000 MCG TABLET. PO SCH (04:29)
[2021-06-22] MEDS: GABAPENTIN 300 MG CAPSULE. PO SCH ×2 (04:29→20:51)
[2021-06-22] MEDS: DOCUSATE SODIUM 100 MG CAPSULE PO SCH (04:30)
[2021-06-22] MEDS: ASPIRIN ENTERIC COATED 81 MG TABLET.DR. PO SCH (04:30)
[2021-06-22] MEDS: IPRATROPIUM/ALBUTEROL 20/100mcg/INH INHALER. INH SCH ×4 (04:32→20:30)
[2021-06-22 06:29] VITALS: BP 163/73
[2021-06-22 08:03] LABS: BASO # 0.1 x10^3/uL (0.0-0.2); BASO % 1 % (0-3); EOS # 0.9 x10^3/uL (0.0-0.7); EOS % 14 % (0-3); HEMATOCRIT 32.9 % (39.0-53.0); HEMOGLOBIN 10.9 g/dL (13.0-17.5); LYMPH # 1.8 x10^3/uL (1.0-4.8); LYMPH % 29 % (24-48); MEAN CORPUSCULAR HEMOGLOBIN 34 pg (25-35); MEAN CORPUSCULAR HGB CONC 33 g/dL (31-37); MEAN CORPUSCULAR VOLUME 102 fL (79-100); MONO # 0.7 x10^3/uL (0.0-1.1); MONO % 11 % (0-9); NEUT # 2.8 x10^3uL (1.8-7.7); NEUT % 45 % (31-73); PLATELET COUNT 117 x10^3/uL (140-400); RED BLOOD COUNT 3.23 x10^6/uL (4.30-5.70); RED CELL DISTRIBUTION WIDTH 14.3 % (11.5-14.5); WHITE BLOOD COUNT 6.2 x10^3/uL (4.0-11.0)
--- NOTE | 2021-06-22 08:16 | PDOC ---
Exam Note: Leo Note: This note is a late entry for 06/20/2021 covers elements not covered in my initial note. Subjective: The patient was reviewed on telehealth rounds on 06/20/2021 due to the COVID-19 pandemic. There have been 3 patients on the unit that have turned up positive today, 06/20 and they are being transitioned to the [facility] floor per Dr. Villarreal. There have also been 2 staff members that have turned up positive for COVID-19 and all the patients are going to be tested weekly for the COVID-19 along with every staff member going forward. I had not had the opportunity to be tested myself and will await completing this before considering [id number] rounds on the unit. Discussed with Ruthie KOWALSKI and reviewed the chart. The patient slept 6-1/4 hours previous night. He complains of some abdominal discomfort, states he has been constipated. Nursing staff have given him milk of mag and we might start Colace if needed. Review of Systems: Ambulation impaired in wheelchair. No CV, , pulmonary, eye, ENT system symptoms on review. Mental Status Exam: The patient is alert and oriented. Speech moderate latency coherent. Often response is monosyllabic. Abstraction fair. Computation i mpaired. Language function intact. Attention span fair. Short-term memory is impaired. Mood remains anxious. No suicidal or homicidal ideation. Laboratory Data: Reviewed. 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 Anxiety disorder unspecified. Impulse control disorder unspecified. Plan: Continue current psychotropics. Assessment: Vital Signs/I&O: Vital Signs Date Time Temp Pulse Resp B/P (MAP) Pulse Ox O2 Delivery O2 Flow Rate FiO2 06/22/21 06:29 99.1 91 20 163/73 (103) 92 06/20/21 07:02 Room Air I & O 06/21/21 06/21/21 06/22/21 15:00 23:00 07:00 Intake Total 960 ml 840 ml Balance 960 ml 840 ml Labs: Laboratory Tests Test 06/22/21 07:14 Glucose (Fingerstick) 154 mg/dL (70-99) H Current Medications: Meds: Laboratory Tests Test 06/22/21 07:14 Glucose (Fingerstick) 154 mg/dL Current Medications Medications (Trade) Dose Ordered Sig/Aparna Route PRN Reason Start Time Stop Time Status Last Admin Dose Admin Acetaminophen (Tylenol) 650 mg PRN Q6HRS PRN PO MILD PAIN / TEMP > 100.3'F 05/17/21 14:45 06/10/21 00:45 Multi-Ingredient Ointment (Analgesic [place]) 1 inna PRN QID PRN TP MUSCLE PAIN 05/17/21 14:45 Al Hydroxide/Mg Hydroxide (Mylanta Plus Xs) 15 ml PRN AFTMEALHC PRN PO DYSPEPSIA 05/17/21 14:45 Magnesium Hydroxide (Milk Of Magnesia) 2,400 mg PRN QHS PRN PO CONSTIPATION 05/17/21 14:45 06/19/21 20:50 Aspirin (Aspirin Enteric Coated) 81 mg DAILY PO 05/18/21 09:00 06/22/21 04:30 Budesonide (Pulmicort) 0.5 mg RTBID IH 05/17/21 20:00 05/18/21 13:26 DC Carvedilol (Coreg) 3.125 mg BIDWMEALS PO 05/17/21 17:00 06/22/21 04:29 Lisinopril (Prinivil) 5 mg DAILY PO 05/18/21 09:00 05/25/21 09:35 DC 05/24/21 08:39 Metformin HCl (Glucophage Xr) 500 mg DAILYWBKFT PO 05/18/21 08:00 06/22/21 04:28 Phenytoin Sodium (Dilantin) 100 mg BID PO 05/17/21 21:00 05/18/21 21:00 DC 05/18/21 20:13 Tamsulosin HCl (Flomax) 0.4 mg DAILY PO 05/18/21 09:00 06/22/21 04:29 Cyanocobalamin (Vitamin B-12) 1,000 mcg DAILY PO 05/18/21 09:00 06/22/21 04:29 Non-Formulary Medication (Ipratropium/ Albuterol Sulfate (Combivent Respimat Inhal)) 1 puff QID INH 05/17/21 17:00 05/17/21 15:02 DC Atorvastatin Calcium (Lipitor) 10 mg DAILY PO 05/18/21 09:00 06/22/21 04:29 Albuterol/ Ipratropium (Duoneb) 3 ml RTQID NEB 05/17/21 16:00 05/17/21 20:45 DC Albuterol/ Ipratropium (Combivent Respimat 20-100 Mcg) 1 puff RTQID INH 05/17/21 20:00 06/22/21 04:32 Gabapentin (Neurontin) 300 mg BID PO 05/17/21 21:00 06/22/21 04:29 Fluticasone Furoate (ARNUITY 100mcg ELLIPTA) 1 puff DAILY INH 05/18/21 14:00 05/21/21 08:27 DC 05/20/21 08:41 Phenytoin Sodium (Dilantin) 300 mg DAILY08 PO 05/19/21 08:00 06/06/21 17:30 DC 06/06/21 08:30 Duloxetine HCl (Cymbalta) 30 mg DAILY PO 05/19/21 09:00 05/25/21 15:56 DC 05/25/21 12:21 Mirtazapine (Remeron) 7.5 mg QHS PO 05/19/21 21:00 06/21/21 20:34 Trazodone HCl (Desyrel) 50 mg PRN QHS PRN PO sleep 05/19/21 12:30 06/11/21 21:31 Divalproex Sodium (Depakote Sprinkles) 125 mg 0900,1300,1700 PO 05/25/21 09:00 05/25/21 16:36 DC 05/25/21 12:20 Duloxetine HCl (Cymbalta) 30 mg DAILY PO 05/26/21 09:00 05/25/21 16:36 DC Duloxetine HCl (Cymbalta) 20 mg DAILY PO 05/26/21 09:00 05/25/21 16:36 DC Duloxetine HCl (Cymbalta) 30 mg DAILY PO 05/26/21 09:00 06/03/21 13:28 DC 06/03/21 08:10 Duloxetine HCl (Cymbalta) 30 mg DAILY PO 06/04/21 09:00 06/06/21 17:51 DC 06/06/21 08:31 Duloxetine HCl (Cymbalta) 20 mg DAILY PO 06/04/21 09:00 06/06/21 17:30 DC 06/06/21 08:31 Duloxetine HCl (Cymbalta) 20 mg HS PO 06/07/21 21:00 06/21/21 20:34 Phenytoin Sodium (Dilantin) 300 mg HS PO 06/07/21 21:00 06/13/21 00:04 DC 06/12/21 21:29 Duloxetine HCl (Cymbalta) 30 mg HS PO 06/07/21 21:00 06/21/21 20:32 Olanzapine (ZyPREXA ZYDIS) 2.5 mg PRN Q2HRS PRN PO PSYCHOSIS 06/10/21 18:45 06/20/21 21:36 Phenytoin Sodium (Dilantin) 100 mg 1X ONCE PO 06/13/21 00:30 06/13/21 00:31 DC 06/13/21 00:23 Phenytoin Sodium (Dilantin) 400 mg HS PO 06/13/21 21:00 06/21/21 16:03 DC 06/20/21 21:35 Guaifenesin (Mucinex Er) 600 mg BID PO 06/14/21 21:00 06/22/21 04:30 Docusate Sodium (Colace) 100 mg DAILY PO 06/20/21 09:00 06/22/21 04:30 Phenytoin Sodium (Dilantin) 500 mg HS PO 06/21/21 21:00 06/21/21 20:33 Current Medications Medications (Trade) Dose Ordered Sig/Aparna Route PRN Reason Start Time Stop Time Status Last Admin Dose Admin Phenytoin Sodium (Dilantin) 500 mg HS PO 06/21/21 21:00 06/21/21 20:33 I have reviewed the current psychotropics carefully including drug interactions. Risk benefit ratio favors no change other than as noted in my dictated progress note. Diagnosis: Problems: (1) Major depressive disorder (2) Impulse control disorder, unspecified (3) Anxiety disorder, unspecified (4) Dementia, vascular, with depression (5) Dementia, vascular, with delusions (6) Major neurocognitive disorder NIK LOYA MD Jun 22, 2021 08:16
[2021-06-22 08:17] LABS: ALBUMIN 3.2 g/dL (3.4-5.0); ALBUMIN/GLOBULIN RATIO 0.9 (1.0-1.7); CALCIUM 8.2 mg/dL (8.5-10.1); CREATININE 1.4 mg/dL (0.7-1.3); GFR 48.9; POTASSIUM 4.6 mmol/L (3.5-5.1); TOTAL BILIRUBIN 0.4 mg/dL (0.2-1.0); TOTAL PROTEIN 6.7 g/dL (6.4-8.2)
--- NOTE | 2021-06-22 08:55 | PDOC ---
Exam Note: Leo Note: This note is a late entry for 06/21/2021 covers elements not covered in my initial note. Subjective: The patient was reviewed on telehealth rounds on 06/21/2021 due to the COVID-19 pandemic. Discussed with Hipolito KOWALSKI and reviewed the chart. The patient slept 6-1/2 hours previous night. He was somewhat obsessive previous evening, anxious, believed he had had a seizure. Dilantin level is subtherapeutic at 9 and we will increase Dilantin from 400 mg h.s. to 500 mg h.s. Check Dilantin level in 3 days. No further GI complaints today but he states he feels he has had couple of seizure-like episodes. Review of Systems: Ambulation impaired in wheelchair. No CV, , pulmonary, eye, ENT system symptoms on review. Mental Status Exam: The patient is alert and oriented. Speech moderate latency coherent. Often response is monosyllabic. Abstraction fair. Computation impaired. Language function intact. Attention span fair. Short-term memory is impaired. No suicidal or homicidal ideation. Laboratory Data: Reviewed. 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 Anxiety disorder unspecified. Impulse control disorder unspecified. Plan: Continue current psychotropics. Assessment: Vital Signs/I&O: Vital Signs Date Time Temp Pulse Resp B/P (MAP) Pulse Ox O2 Delivery O2 Flow Rate FiO2 06/22/21 06:29 99.1 91 20 163/73 (103) 92 06/20/21 07:02 Room Air I & O 06/21/21 06/21/21 06/22/21 15:00 23:00 07:00 Intake Total 960 ml 840 ml Balance 960 ml 840 ml Labs: Laboratory Tests Test 06/22/21 07:14 06/22/21 07:40 Glucose (Fingerstick) 154 mg/dL (70-99) H White Blood Count 6.2 x10^3/uL (4.0-11.0) Red Blood Count 3.23 x10^6/uL (4.30-5.70) L Hemoglobin 10.9 g/dL (13.0-17.5) L Hematocrit 32.9 % (39.0-53.0) L Mean Corpuscular Volume 102 fL (79-100) H Mean Corpuscular Hemoglobin 34 pg (25-35) Mean Corpuscular Hemoglobin Concent 33 g/dL (31-37) Red Cell Distribution Width 14.3 % (11.5-14.5) Platelet Count 117 x10^3/uL (140-400) L Neutrophils (%) (Auto) 45 % (31-73) Lymphocytes (%) (Auto) 29 % (24-48) Monocytes (%) (Auto) 11 % (0-9) H Eosinophils (%) (Auto) 14 % (0-3) H Basophils (%) (Auto) 1 % (0-3) Neutrophils # (Auto) 2.8 x10^3uL (1.8-7.7) Lymphocytes # (Auto) 1.8 x10^3/uL (1.0-4.8) Monocytes # (Auto) 0.7 x10^3/uL (0.0-1.1) Eosinophils # (Auto) 0.9 x10^3/uL (0.0-0.7) H Basophils # (Auto) 0.1 x10^3/uL (0.0-0.2) Sodium Level 143 mmol/L (136-145) Potassium Level 4.6 mmol/L (3.5-5.1) Chloride Level 108 mmol/L (98-107) H Carbon Dioxide Level 32 mmol/L (21-32) Anion Gap 3 (6-14) L Blood Urea Nitrogen 47 mg/dL (8-26) H Creatinine 1.4 mg/dL (0.7-1.3) H Estimated GFR (Cockcroft-Gault) 48.9 BUN/Creatinine Ratio 34 (6-20) H Glucose Level 149 mg/dL (70-99) H Calcium Level 8.2 mg/dL (8.5-10.1) L Total Bilirubin 0.4 mg/dL (0.2-1.0) Aspartate Amino Transferase (AST) 17 U/L (15-37) Alanine Aminotransferase (ALT) 23 U/L (16-63) Alkaline Phosphatase 126 U/L (46-116) H Total Protein 6.7 g/dL (6.4-8.2) Albumin 3.2 g/dL (3.4-5.0) L Albumin/Globulin Ratio 0.9 (1.0-1.7) L Current Medications: Meds: Laboratory Tests Test 06/22/21 07:14 06/22/21 07:40 Glucose (Fingerstick) 154 mg/dL White Blood Count 6.2 x10^3/uL Red Blood Count 3.23 x10^6/uL Hemoglobin 10.9 g/dL Hematocrit 32.9 % Mean Corpuscular Volume 102 fL Mean Corpuscular Hemoglobin 34 pg Mean Corpuscular Hemoglobin Concent 33 g/dL Red Cell Distribution Width 14.3 % Platelet Count 117 x10^3/uL Neutrophils (%) (Auto) 45 % Lymphocytes (%) (Auto) 29 % Monocytes (%) (Auto) 11 % Eosinophils (%) (Auto) 14 % Basophils (%) (Auto) 1 % Neutrophils # (Auto) 2.8 x10^3uL Lymphocytes # (Auto) 1.8 x10^3/uL Monocytes # (Auto) 0.7 x10^3/uL Eosinophils # (Auto) 0.9 x10^3/uL Basophils # (Auto) 0.1 x10^3/uL Sodium Level 143 mmol/L Potassium Level 4.6 mmol/L Chloride Level 108 mmol/L Carbon Dioxide Level 32 mmol/L Anion Gap 3 Blood Urea Nitrogen 47 mg/dL Creatinine 1.4 mg/dL Estimated GFR (Cockcroft-Gault) 48.9 BUN/Creatinine Ratio 34 Glucose Level 149 mg/dL Calcium Level 8.2 mg/dL Total Bilirubin 0.4 mg/dL Aspartate Amino Transf (AST/SGOT) 17 U/L Alanine Aminotransferase (ALT/SGPT) 23 U/L Alkaline Phosphatase 126 U/L Total Protein 6.7 g/dL Albumin 3.2 g/dL Albumin/Globulin Ratio 0.9 Current Medications Medications (Trade) Dose Ordered Sig/Apanra Route PRN Reason Start Time Stop Time Status Last Admin Dose Admin Acetaminophen (Tylenol) 650 mg PRN Q6HRS PRN PO MILD PAIN / TEMP > 100.3'F 05/17/21 14:45 06/10/21 00:45 Multi-Ingredient Ointment (Analgesic [place]) 1 inna PRN QID PRN TP MUSCLE PAIN 05/17/21 14:45 Al Hydroxide/Mg Hydroxide (Mylanta Plus Xs) 15 ml PRN AFTMEALHC PRN PO DYSPEPSIA 05/17/21 14:45 Magnesium Hydroxide (Milk Of Magnesia) 2,400 mg PRN QHS PRN PO CONSTIPATION 05/17/21 14:45 06/19/21 20:50 Aspirin (Aspirin Enteric Coated) 81 mg DAILY PO 05/18/21 09:00 06/22/21 04:30 Budesonide (Pulmicort) 0.5 mg RTBID IH 05/17/21 20:00 05/18/21 13:26 DC Carvedilol (Coreg) 3.125 mg BIDWMEALS PO 05/17/21 17:00 06/22/21 04:29 Lisinopril (Prinivil) 5 mg DAILY PO 05/18/21 09:00 05/25/21 09:35 DC 05/24/21 08:39 Metformin HCl (Glucophage Xr) 500 mg DAILYWBKFT PO 05/18/21 08:00 06/22/21 04:28 Phenytoin Sodium (Dilantin) 100 mg BID PO 05/17/21 21:00 05/18/21 21:00 DC 05/18/21 20:13 Tamsulosin HCl (Flomax) 0.4 mg DAILY PO 05/18/21 09:00 06/22/21 04:29 Cyanocobalamin (Vitamin B-12) 1,000 mcg DAILY PO 05/18/21 09:00 06/22/21 04:29 Non-Formulary Medication (Ipratropium/ Albuterol Sulfate (Combivent Respimat Inhal)) 1 puff QID INH 05/17/21 17:00 05/17/21 15:02 DC Atorvastatin Calcium (Lipitor) 10 mg DAILY PO 05/18/21 09:00 06/22/21 04:29 Albuterol/ Ipratropium (Duoneb) 3 ml RTQID NEB 05/17/21 16:00 05/17/21 20:45 DC Albuterol/ Ipratropium (Combivent Respimat 20-100 Mcg) 1 puff RTQID INH 05/17/21 20:00 06/22/21 04:32 Gabapentin (Neurontin) 300 mg BID PO 05/17/21 21:00 06/22/21 04:29 Fluticasone Furoate (ARNUITY 100mcg ELLIPTA) 1 puff DAILY INH 05/18/21 14:00 05/21/21 08:27 DC 05/20/21 08:41 Phenytoin Sodium (Dilantin) 300 mg DAILY08 PO 05/19/21 08:00 06/06/21 17:30 DC 06/06/21 08:30 Duloxetine HCl (Cymbalta) 30 mg DAILY PO 05/19/21 09:00 05/25/21 15:56 DC 05/25/21 12:21 Mirtazapine (Remeron) 7.5 mg QHS PO 05/19/21 21:00 06/21/21 20:34 Trazodone HCl (Desyrel) 50 mg PRN QHS PRN PO sleep 05/19/21 12:30 06/11/21 21:31 Divalproex Sodium (Depakote Sprinkles) 125 mg 0900,1300,1700 PO 05/25/21 09:00 05/25/21 16:36 DC 05/25/21 12:20 Duloxetine HCl (Cymbalta) 30 mg DAILY PO 05/26/21 09:00 05/25/21 16:36 DC Duloxetine HCl (Cymbalta) 20 mg DAILY PO 05/26/21 09:00 05/25/21 16:36 DC Duloxetine HCl (Cymbalta) 30 mg DAILY PO 05/26/21 09:00 06/03/21 13:28 DC 06/03/21 08:10 Duloxetine HCl (Cymbalta) 30 mg DAILY PO 06/04/21 09:00 06/06/21 17:51 DC 06/06/21 08:31 Duloxetine HCl (Cymbalta) 20 mg DAILY PO 06/04/21 09:00 06/06/21 17:30 DC 06/06/21 08:31 Duloxetine HCl (Cymbalta) 20 mg HS PO 06/07/21 21:00 06/21/21 20:34 Phenytoin Sodium (Dilantin) 300 mg HS PO 06/07/21 21:00 06/13/21 00:04 DC 06/12/21 21:29 Duloxetine HCl (Cymbalta) 30 mg HS PO 06/07/21 21:00 06/21/21 20:32 Olanzapine (ZyPREXA ZYDIS) 2.5 mg PRN Q2HRS PRN PO PSYCHOSIS 06/10/21 18:45 06/20/21 21:36 Phenytoin Sodium (Dilantin) 100 mg 1X ONCE PO 06/13/21 00:30 06/13/21 00:31 DC 06/13/21 00:23 Phenytoin Sodium (Dilantin) 400 mg HS PO 06/13/21 21:00 06/21/21 16:03 DC 06/20/21 21:35 Guaifenesin (Mucinex Er) 600 mg BID PO 06/14/21 21:00 06/22/21 04:30 Docusate Sodium (Colace) 100 mg DAILY PO 06/20/21 09:00 06/22/21 04:30 Phenytoin Sodium (Dilantin) 500 mg HS PO 06/21/21 21:00 06/21/21 20:33 Current Medications Medications (Trade) Dose Ordered Sig/Aparna Route PRN Reason Start Time Stop Time Status Last Admin Dose Admin Phenytoin Sodium (Dilantin) 500 mg HS PO 06/21/21 21:00 06/21/21 20:33 I have reviewed the current psychotropics carefully including drug interactions. Risk benefit ratio favors no change other than as noted in my dictated progress note. Diagnosis: Problems: (1) Major depressive disorder (2) Impulse control disorder, unspecified (3) Anxiety disorder, unspecified (4) Dementia, vascular, with depression (5) Dementia, vascular, with delusions (6) Major neurocognitive disorder NIK LOYA MD Jun 22, 2021 08:55
[2021-06-22 11:12] LABS: % ATYL 5 % (0-0); % BANDS 6 % (0-9); % BASOS 2 % (0-3); % EOS 10 % (0-5); % LYMPHS 34 % (24-48); % MONOS 8 % (0-10); % SEGS 35 % (35-66)
[2021-06-22 11:46] LABS: PLT ESTIMATE ADEQUATE (ADEQUATE)
[2021-06-22 11:49] LABS: PLATELET CLUMP PRESENT
[2021-06-22 16:28] VITALS: BP 131/70
[2021-06-22] MEDS: MIRTAZAPINE 7.5 MG TABLET. PO SCH (20:31)
[2021-06-22] MEDS: DULoxetine HCL 20 MG CAPSULE.DR PO SCH (20:31)
[2021-06-22] MEDS: DULoxetine HCL 30 MG CAPSULE.DR PO SCH (20:31)
[2021-06-22] MEDS: PHENYTOIN SODIUM EXTENDED 100 MG CAPSULE PO SCH (20:31)
--- NOTE | 2021-06-22 22:02 | PDOC ---
Exam Note: Leo Note: Please also refer to the separate dictated note~for this date of service dictated separately.~Patient seen individually. Discussed the patient with Nursing staff reviewed the chart.~Reviewed interim history and current functioning. Reviewed vital signs,~Labs/ Radiology~and current medications noted below. Continue current treatment with the changes noted in the dictated addendum note Assessment: Vital Signs/I&O: Vital Signs Date Time Temp Pulse Resp B/P (MAP) Pulse Ox O2 Delivery O2 Flow Rate FiO2 06/22/21 17:30 81 131/70 06/22/21 16:28 97.7 24 94 06/20/21 07:02 Room Air I & O 06/21/21 06/21/21 06/22/21 15:00 23:00 07:00 Intake Total 960 ml 840 ml Balance 960 ml 840 ml Labs: Laboratory Tests Test 06/22/21 07:14 06/22/21 07:40 Glucose (Fingerstick) 154 mg/dL (70-99) H White Blood Count 6.2 x10^3/uL (4.0-11.0) Red Blood Count 3.23 x10^6/uL (4.30-5.70) L Hemoglobin 10.9 g/dL (13.0-17.5) L Hematocrit 32.9 % (39.0-53.0) L Mean Corpuscular Volume 102 fL (79-100) H Mean Corpuscular Hemoglobin 34 pg (25-35) Mean Corpuscular Hemoglobin Concent 33 g/dL (31-37) Red Cell Distribution Width 14.3 % (11.5-14.5) Platelet Count 117 x10^3/uL (140-400) L Neutrophils (%) (Auto) 45 % (31-73) Lymphocytes (%) (Auto) 29 % (24-48) Monocytes (%) (Auto) 11 % (0-9) H Eosinophils (%) (Auto) 14 % (0-3) H Basophils (%) (Auto) 1 % (0-3) Neutrophils # (Auto) 2.8 x10^3uL (1.8-7.7) Lymphocytes # (Auto) 1.8 x10^3/uL (1.0-4.8) Monocytes # (Auto) 0.7 x10^3/uL (0.0-1.1) Eosinophils # (Auto) 0.9 x10^3/uL (0.0-0.7) H Basophils # (Auto) 0.1 x10^3/uL (0.0-0.2) Segmented Neutrophils % 35 % (35-66) Band Neutrophils % 6 % (0-9) Lymphocytes % 34 % (24-48) Atypical Lymphocytes % (Manual) 5 % (0-0) H Monocytes % 8 % (0-10) Eosinophils % 10 % (0-5) H Basophils % 2 % (0-3) Platelet Estimate Adequate (ADEQUATE) Platelet Clumps, EDTA Present Sodium Level 143 mmol/L (136-145) Potassium Level 4.6 mmol/L (3.5-5.1) Chloride Level 108 mmol/L (98-107) H Carbon Dioxide Level 32 mmol/L (21-32) Anion Gap 3 (6-14) L Blood Urea Nitrogen 47 mg/dL (8-26) H Creatinine 1.4 mg/dL (0.7-1.3) H Estimated GFR (Cockcroft-Gault) 48.9 BUN/Creatinine Ratio 34 (6-20) H Glucose Level 149 mg/dL (70-99) H Calcium Level 8.2 mg/dL (8.5-10.1) L Total Bilirubin 0.4 mg/dL (0.2-1.0) Aspartate Amino Transferase (AST) 17 U/L (15-37) Alanine Aminotransferase (ALT) 23 U/L (16-63) Alkaline Phosphatase 126 U/L (46-116) H Total Protein 6.7 g/dL (6.4-8.2) Albumin 3.2 g/dL (3.4-5.0) L Albumin/Globulin Ratio 0.9 (1.0-1.7) L Current Medications: Meds: Laboratory Tests Test 06/22/21 07:14 06/22/21 07:40 Glucose (Fingerstick) 154 mg/dL White Blood Count 6.2 x10^3/uL Red Blood Count 3.23 x10^6/uL Hemoglobin 10.9 g/dL Hematocrit 32.9 % Mean Corpuscular Volume 102 fL Mean Corpuscular Hemoglobin 34 pg Mean Corpuscular Hemoglobin Concent 33 g/dL Red Cell Distribution Width 14.3 % Platelet Count 117 x10^3/uL Neutrophils (%) (Auto) 45 % Lymphocytes (%) (Auto) 29 % Monocytes (%) (Auto) 11 % Eosinophils (%) (Auto) 14 % Basophils (%) (Auto) 1 % Neutrophils # (Auto) 2.8 x10^3uL Lymphocytes # (Auto) 1.8 x10^3/uL Monocytes # (Auto) 0.7 x10^3/uL Eosinophils # (Auto) 0.9 x10^3/uL Basophils # (Auto) 0.1 x10^3/uL Segmented Neutrophils % 35 % Band Neutrophils % 6 % Lymphocytes % 34 % Atypical Lymphocytes % (Manual) 5 % Monocytes % 8 % Eosinophils % 10 % Basophils % 2 % Platelet Estimate Adequate Platelet Clumps, EDTA Present Sodium Level 143 mmol/L Potassium Level 4.6 mmol/L Chloride Level 108 mmol/L Carbon Dioxide Level 32 mmol/L Anion Gap 3 Blood Urea Nitrogen 47 mg/dL Creatinine 1.4 mg/dL Estimated GFR (Cockcroft-Gault) 48.9 BUN/Creatinine Ratio 34 Glucose Level 149 mg/dL Calcium Level 8.2 mg/dL Total Bilirubin 0.4 mg/dL Aspartate Amino Transf (AST/SGOT) 17 U/L Alanine Aminotransferase (ALT/SGPT) 23 U/L Alkaline Phosphatase 126 U/L Total Protein 6.7 g/dL Albumin 3.2 g/dL Albumin/Globulin Ratio 0.9 Current Medications Medications (Trade) Dose Ordered Sig/Aparna Route PRN Reason Start Time Stop Time Status Last Admin Dose Admin Acetaminophen (Tylenol) 650 mg PRN Q6HRS PRN PO MILD PAIN / TEMP > 100.3'F 05/17/21 14:45 06/10/21 00:45 Multi-Ingredient Ointment (Analgesic [place]) 1 inna PRN QID PRN TP MUSCLE PAIN 05/17/21 14:45 Al Hydroxide/Mg Hydroxide (Mylanta Plus Xs) 15 ml PRN AFTMEALHC PRN PO DYSPEPSIA 05/17/21 14:45 Magnesium Hydroxide (Milk Of Magnesia) 2,400 mg PRN QHS PRN PO CONSTIPATION 05/17/21 14:45 06/19/21 20:50 Aspirin (Aspirin Enteric Coated) 81 mg DAILY PO 05/18/21 09:00 06/22/21 04:30 Budesonide (Pulmicort) 0.5 mg RTBID IH 05/17/21 20:00 05/18/21 13:26 DC Carvedilol (Coreg) 3.125 mg BIDWMEALS PO 05/17/21 17:00 06/22/21 17:30 Lisinopril (Prinivil) 5 mg DAILY PO 05/18/21 09:00 05/25/21 09:35 DC 05/24/21 08:39 Metformin HCl (Glucophage Xr) 500 mg DAILYWBKFT PO 05/18/21 08:00 06/22/21 04:28 Phenytoin Sodium (Dilantin) 100 mg BID PO 05/17/21 21:00 05/18/21 21:00 DC 05/18/21 20:13 Tamsulosin HCl (Flomax) 0.4 mg DAILY PO 05/18/21 09:00 06/22/21 04:29 Cyanocobalamin (Vitamin B-12) 1,000 mcg DAILY PO 05/18/21 09:00 06/22/21 04:29 Non-Formulary Medication (Ipratropium/ Albuterol Sulfate (Combivent Respimat Inhal)) 1 puff QID INH 05/17/21 17:00 05/17/21 15:02 DC Atorvastatin Calcium (Lipitor) 10 mg DAILY PO 05/18/21 09:00 06/22/21 04:29 Albuterol/ Ipratropium (Duoneb) 3 ml RTQID NEB 05/17/21 16:00 05/17/21 20:45 DC Albuterol/ Ipratropium (Combivent Respimat 20-100 Mcg) 1 puff RTQID INH 05/17/21 20:00 06/22/21 20:30 Gabapentin (Neurontin) 300 mg BID PO 05/17/21 21:00 06/22/21 20:51 Fluticasone Furoate (ARNUITY 100mcg ELLIPTA) 1 puff DAILY INH 05/18/21 14:00 05/21/21 08:27 DC 05/20/21 08:41 Phenytoin Sodium (Dilantin) 300 mg DAILY08 PO 05/19/21 08:00 06/06/21 17:30 DC 06/06/21 08:30 Duloxetine HCl (Cymbalta) 30 mg DAILY PO 05/19/21 09:00 05/25/21 15:56 DC 05/25/21 12:21 Mirtazapine (Remeron) 7.5 mg QHS PO 05/19/21 21:00 06/22/21 20:31 Trazodone HCl (Desyrel) 50 mg PRN QHS PRN PO sleep 05/19/21 12:30 06/11/21 21:31 Divalproex Sodium (Depakote Sprinkles) 125 mg 0900,1300,1700 PO 05/25/21 09:00 05/25/21 16:36 DC 05/25/21 12:20 Duloxetine HCl (Cymbalta) 30 mg DAILY PO 05/26/21 09:00 05/25/21 16:36 DC Duloxetine HCl (Cymbalta) 20 mg DAILY PO 05/26/21 09:00 05/25/21 16:36 DC Duloxetine HCl (Cymbalta) 30 mg DAILY PO 05/26/21 09:00 06/03/21 13:28 DC 06/03/21 08:10 Duloxetine HCl (Cymbalta) 30 mg DAILY PO 06/04/21 09:00 06/06/21 17:51 DC 06/06/21 08:31 Duloxetine HCl (Cymbalta) 20 mg DAILY PO 06/04/21 09:00 06/06/21 17:30 DC 06/06/21 08:31 Duloxetine HCl (Cymbalta) 20 mg HS PO 06/07/21 21:00 06/22/21 20:31 Phenytoin Sodium (Dilantin) 300 mg HS PO 06/07/21 21:00 06/13/21 00:04 DC 06/12/21 21:29 Duloxetine HCl (Cymbalta) 30 mg HS PO 06/07/21 21:00 06/22/21 20:31 Olanzapine (ZyPREXA ZYDIS) 2.5 mg PRN Q2HRS PRN PO PSYCHOSIS 06/10/21 18:45 06/20/21 21:36 Phenytoin Sodium (Dilantin) 100 mg 1X ONCE PO 06/13/21 00:30 06/13/21 00:31 DC 06/13/21 00:23 Phenytoin Sodium (Dilantin) 400 mg HS PO 06/13/21 21:00 06/21/21 16:03 DC 06/20/21 21:35 Guaifenesin (Mucinex Er) 600 mg BID PO 06/14/21 21:00 06/22/21 20:31 Docusate Sodium (Colace) 100 mg DAILY PO 06/20/21 09:00 06/22/21 04:30 Phenytoin Sodium (Dilantin) 500 mg HS PO 06/21/21 21:00 06/22/21 20:31 I have reviewed the current psychotropics carefully including drug interactions. Risk benefit ratio favors no change other than as noted in my dictated progress note. Diagnosis: Problems: (1) Major depressive disorder (2) Impulse control disorder, unspecified (3) Anxiety disorder, unspecified (4) Dementia, vascular, with depression (5) Dementia, vascular, with delusions (6) Major neurocognitive disorder NIK LOYA MD Jun 22, 2021 22:02
--- NOTE | 2021-06-23 00:15 | NUR ---
Last evening pt was in the day room and was somewhat upset that his nephew was here to visit earlier today but not allowed in due to current policy. Call was placed to Maikel Jimenes at [phone] and pt spoke with him and pt seemed in better spirits afterwards. Pt took HS meds whole after having each pill identified. He was concerned that he was taking too many meds at too high of dosage. He has been cooperative with cares and had no behaviors tonight.
[2021-06-23 06:00] VITALS: BP 161/78
--- NOTE | 2021-06-23 06:44 | PDOC ---
Exam Note: Leo Note: This note is a late entry for 06/22/2021 covers elements not covered in my initial note. Subjective: The patient was seen individually in the evening of 06/22/2021 with Anila KOWALSKI, discussed and reviewed the chart. The patient slept 5 hours previous night. Overall the patient has been fairly cooperative but it is his birthday today and his nephew had come to visit him. Due to the COVID situation visitors are not allowed and he was upset about this. I processed with him and discussed with Wallace KOWALSKI who will try and arrange a telephone call to the nephew. No sexual comments noted. Review of Systems: Ambulation impaired in wheelchair. No CV, , pulmonary, eye, ENT system symptoms on review. Mental Status Exam: The patient is oriented to himself and situation. Speech coherent has some latency. Abstraction fair. Computation impaired. Language function intact. Attention span short. Mood and affect somewhat withdrawn. Laboratory Data: Reviewed. 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 Anxiety disorder unspecified. Impulse control disorder unspecified. Plan: No change from initial note. Assessment: Vital Signs/I&O: Vital Signs Date Time Temp Pulse Resp B/P (MAP) Pulse Ox O2 Delivery O2 Flow Rate FiO2 06/23/21 06:00 98.0 84 18 161/78 (105) 93 06/20/21 07:02 Room Air I & O 06/22/21 06/22/21 06/23/21 14:59 22:59 06:59 Intake Total 1080 ml 480 ml Balance 1080 ml 480 ml Labs: Laboratory Tests Test 06/22/21 07:14 06/22/21 07:40 Glucose (Fingerstick) 154 mg/dL (70-99) H White Blood Count 6.2 x10^3/uL (4.0-11.0) Red Blood Count 3.23 x10^6/uL (4.30-5.70) L Hemoglobin 10.9 g/dL (13.0-17.5) L Hematocrit 32.9 % (39.0-53.0) L Mean Corpuscular Volume 102 fL (79-100) H Mean Corpuscular Hemoglobin 34 pg (25-35) Mean Corpuscular Hemoglobin Concent 33 g/dL (31-37) Red Cell Distribution Width 14.3 % (11.5-14.5) Platelet Count 117 x10^3/uL (140-400) L Neutrophils (%) (Auto) 45 % (31-73) Lymphocytes (%) (Auto) 29 % (24-48) Monocytes (%) (Auto) 11 % (0-9) H Eosinophils (%) (Auto) 14 % (0-3) H Basophils (%) (Auto) 1 % (0-3) Neutrophils # (Auto) 2.8 x10^3uL (1.8-7.7) Lymphocytes # (Auto) 1.8 x10^3/uL (1.0-4.8) Monocytes # (Auto) 0.7 x10^3/uL (0.0-1.1) Eosinophils # (Auto) 0.9 x10^3/uL (0.0-0.7) H Basophils # (Auto) 0.1 x10^3/uL (0.0-0.2) Segmented Neutrophils % 35 % (35-66) Band Neutrophils % 6 % (0-9) Lymphocytes % 34 % (24-48) Atypical Lymphocytes % (Manual) 5 % (0-0) H Monocytes % 8 % (0-10) Eosinophils % 10 % (0-5) H Basophils % 2 % (0-3) Platelet Estimate Adequate (ADEQUATE) Platelet Clumps, EDTA Present Sodium Level 143 mmol/L (136-145) Potassium Level 4.6 mmol/L (3.5-5.1) Chloride Level 108 mmol/L (98-107) H Carbon Dioxide Level 32 mmol/L (21-32) Anion Gap 3 (6-14) L Blood Urea Nitrogen 47 mg/dL (8-26) H Creatinine 1.4 mg/dL (0.7-1.3) H Estimated GFR (Cockcroft-Gault) 48.9 BUN/Creatinine Ratio 34 (6-20) H Glucose Level 149 mg/dL (70-99) H Calcium Level 8.2 mg/dL (8.5-10.1) L Total Bilirubin 0.4 mg/dL (0.2-1.0) Aspartate Amino Transferase (AST) 17 U/L (15-37) Alanine Aminotransferase (ALT) 23 U/L (16-63) Alkaline Phosphatase 126 U/L (46-116) H Total Protein 6.7 g/dL (6.4-8.2) Albumin 3.2 g/dL (3.4-5.0) L Albumin/Globulin Ratio 0.9 (1.0-1.7) L Current Medications: Meds: Laboratory Tests Test 06/22/21 07:14 06/22/21 07:40 Glucose (Fingerstick) 154 mg/dL White Blood Count 6.2 x10^3/uL Red Blood Count 3.23 x10^6/uL Hemoglobin 10.9 g/dL Hematocrit 32.9 % Mean Corpuscular Volume 102 fL Mean Corpuscular Hemoglobin 34 pg Mean Corpuscular Hemoglobin Concent 33 g/dL Red Cell Distribution Width 14.3 % Platelet Count 117 x10^3/uL Neutrophils (%) (Auto) 45 % Lymphocytes (%) (Auto) 29 % Monocytes (%) (Auto) 11 % Eosinophils (%) (Auto) 14 % Basophils (%) (Auto) 1 % Neutrophils # (Auto) 2.8 x10^3uL Lymphocytes # (Auto) 1.8 x10^3/uL Monocytes # (Auto) 0.7 x10^3/uL Eosinophils # (Auto) 0.9 x10^3/uL Basophils # (Auto) 0.1 x10^3/uL Segmented Neutrophils % 35 % Band Neutrophils % 6 % Lymphocytes % 34 % Atypical Lymphocytes % (Manual) 5 % Monocytes % 8 % Eosinophils % 10 % Basophils % 2 % Platelet Estimate Adequate Platelet Clumps, EDTA Present Sodium Level 143 mmol/L Potassium Level 4.6 mmol/L Chloride Level 108 mmol/L Carbon Dioxide Level 32 mmol/L Anion Gap 3 Blood Urea Nitrogen 47 mg/dL Creatinine 1.4 mg/dL Estimated GFR (Cockcroft-Gault) 48.9 BUN/Creatinine Ratio 34 Glucose Level 149 mg/dL Calcium Level 8.2 mg/dL Total Bilirubin 0.4 mg/dL Aspartate Amino Transf (AST/SGOT) 17 U/L Alanine Aminotransferase (ALT/SGPT) 23 U/L Alkaline Phosphatase 126 U/L Total Protein 6.7 g/dL Albumin 3.2 g/dL Albumin/Globulin Ratio 0.9 Current Medications Medications (Trade) Dose Ordered Sig/Aparna Route PRN Reason Start Time Stop Time Status Last Admin Dose Admin Acetaminophen (Tylenol) 650 mg PRN Q6HRS PRN PO MILD PAIN / TEMP > 100.3'F 05/17/21 14:45 06/10/21 00:45 Multi-Ingredient Ointment (Analgesic [place]) 1 inna PRN QID PRN TP MUSCLE PAIN 05/17/21 14:45 Al Hydroxide/Mg Hydroxide (Mylanta Plus Xs) 15 ml PRN AFTMEALHC PRN PO DYSPEPSIA 05/17/21 14:45 Magnesium Hydroxide (Milk Of Magnesia) 2,400 mg PRN QHS PRN PO CONSTIPATION 05/17/21 14:45 06/19/21 20:50 Aspirin (Aspirin Enteric Coated) 81 mg DAILY PO 05/18/21 09:00 06/22/21 04:30 Budesonide (Pulmicort) 0.5 mg RTBID IH 05/17/21 20:00 05/18/21 13:26 DC Carvedilol (Coreg) 3.125 mg BIDWMEALS PO 05/17/21 17:00 06/22/21 17:30 Lisinopril (Prinivil) 5 mg DAILY PO 05/18/21 09:00 05/25/21 09:35 DC 05/24/21 08:39 Metformin HCl (Glucophage Xr) 500 mg DAILYWBKFT PO 05/18/21 08:00 06/22/21 04:28 Phenytoin Sodium (Dilantin) 100 mg BID PO 05/17/21 21:00 05/18/21 21:00 DC 05/18/21 20:13 Tamsulosin HCl (Flomax) 0.4 mg DAILY PO 05/18/21 09:00 06/22/21 04:29 Cyanocobalamin (Vitamin B-12) 1,000 mcg DAILY PO 05/18/21 09:00 06/22/21 04:29 Non-Formulary Medication (Ipratropium/ Albuterol Sulfate (Combivent Respimat Inhal)) 1 puff QID INH 05/17/21 17:00 05/17/21 15:02 DC Atorvastatin Calcium (Lipitor) 10 mg DAILY PO 05/18/21 09:00 06/22/21 04:29 Albuterol/ Ipratropium (Duoneb) 3 ml RTQID NEB 05/17/21 16:00 05/17/21 20:45 DC Albuterol/ Ipratropium (Combivent Respimat 20-100 Mcg) 1 puff RTQID INH 05/17/21 20:00 06/22/21 20:30 Gabapentin (Neurontin) 300 mg BID PO 05/17/21 21:00 06/22/21 20:51 Fluticasone Furoate (ARNUITY 100mcg ELLIPTA) 1 puff DAILY INH 05/18/21 14:00 05/21/21 08:27 DC 05/20/21 08:41 Phenytoin Sodium (Dilantin) 300 mg DAILY08 PO 05/19/21 08:00 06/06/21 17:30 DC 06/06/21 08:30 Duloxetine HCl (Cymbalta) 30 mg DAILY PO 05/19/21 09:00 05/25/21 15:56 DC 05/25/21 12:21 Mirtazapine (Remeron) 7.5 mg QHS PO 05/19/21 21:00 06/22/21 20:31 Trazodone HCl (Desyrel) 50 mg PRN QHS PRN PO sleep 05/19/21 12:30 06/11/21 21:31 Divalproex Sodium (Depakote Sprinkles) 125 mg 0900,1300,1700 PO 05/25/21 09:00 05/25/21 16:36 DC 05/25/21 12:20 Duloxetine HCl (Cymbalta) 30 mg DAILY PO 05/26/21 09:00 05/25/21 16:36 DC Duloxetine HCl (Cymbalta) 20 mg DAILY PO 05/26/21 09:00 05/25/21 16:36 DC Duloxetine HCl (Cymbalta) 30 mg DAILY PO 05/26/21 09:00 06/03/21 13:28 DC 06/03/21 08:10 Duloxetine HCl (Cymbalta) 30 mg DAILY PO 06/04/21 09:00 06/06/21 17:51 DC 06/06/21 08:31 Duloxetine HCl (Cymbalta) 20 mg DAILY PO 06/04/21 09:00 06/06/21 17:30 DC 06/06/21 08:31 Duloxetine HCl (Cymbalta) 20 mg HS PO 06/07/21 21:00 06/22/21 20:31 Phenytoin Sodium (Dilantin) 300 mg HS PO 06/07/21 21:00 06/13/21 00:04 DC 06/12/21 21:29 Duloxetine HCl (Cymbalta) 30 mg HS PO 06/07/21 21:00 06/22/21 20:31 Olanzapine (ZyPREXA ZYDIS) 2.5 mg PRN Q2HRS PRN PO PSYCHOSIS 06/10/21 18:45 06/20/21 21:36 Phenytoin Sodium (Dilantin) 100 mg 1X ONCE PO 06/13/21 00:30 06/13/21 00:31 DC 06/13/21 00:23 Phenytoin Sodium (Dilantin) 400 mg HS PO 06/13/21 21:00 06/21/21 16:03 DC 06/20/21 21:35 Guaifenesin (Mucinex Er) 600 mg BID PO 06/14/21 21:00 06/22/21 20:31 Docusate Sodium (Colace) 100 mg DAILY PO 06/20/21 09:00 06/22/21 04:30 Phenytoin Sodium (Dilantin) 500 mg HS PO 06/21/21 21:00 06/22/21 20:31 I have reviewed the current psychotropics carefully including drug interactions. Risk benefit ratio favors no change other than as noted in my dictated progress note. Diagnosis: Problems: (1) Major depressive disorder (2) Impulse control disorder, unspecified (3) Anxiety disorder, unspecified (4) Dementia, vascular, with depression (5) Dementia, vascular, with delusions (6) Major neurocognitive disorder NIK LOYA MD Jun 23, 2021 06:44
[2021-06-23] MEDS ORDERED: ALBUTEROL SULFATE 2.5 MG/3 ML NEBU. NEB ONE (07:45)
[2021-06-23] MEDS: metFORMIN XR 500 MG TAB.ER.24H PO SCH (08:20)
[2021-06-23] MEDS: ASPIRIN ENTERIC COATED 81 MG TABLET.DR. PO SCH (08:20)
[2021-06-23] MEDS: CYANOCOBALAMIN (VITAMIN B-12) 1,000 MCG TABLET. PO SCH (08:20)
[2021-06-23] MEDS: CARVEDILOL 3.125 MG TABLET PO SCH ×2 (08:20→17:12)
[2021-06-23] MEDS: DOCUSATE SODIUM 100 MG CAPSULE PO SCH (08:21)
[2021-06-23] MEDS: ATORVASTATIN CALCIUM 10 MG TABLET. PO SCH (08:21)
[2021-06-23] MEDS: GABAPENTIN 300 MG CAPSULE. PO SCH ×2 (08:21→20:18)
[2021-06-23] MEDS: TAMSULOSIN 0.4 MG CAP.ER.24H. PO SCH (08:21)
[2021-06-23] MEDS: IPRATROPIUM/ALBUTEROL 20/100mcg/INH INHALER. INH SCH ×4 (08:23→20:18)
--- NOTE | 2021-06-23 09:44 | RAD ---
EXAM: XR CHEST 1V 06/23/2021 8:46 AM CLINICAL INDICATION: Increased size of breath with wheezing COMPARISON: None TECHNIQUE: AP view of the chest FINDINGS: The heart and mediastinum are normal. Lungs are adequately expanded. No consolidation, ple ural effusion, or pneumothorax. No acute osseous abnormality. IMPRESSION: No acute cardiopulmonary abnormality. Electronically signed by: Margie Santiago MD (06/23/2021 9:41 AM) [id number]
--- NOTE | 2021-06-23 13:02 | NUR ---
WEEKLY ACTIVITY THERAPY NOTE Date of Admission: 05/17/21 Date of AT Assessment: 05/20 Precipitating behaviors that initiated intake and admission: Patient was reported to believe that his money was being stolen, his dog was being murdered, trying to leave the facility, disoriented, being tearful and crying frequently, and having sexually inappropriate conversations with other residents. Goal aimed: increase socialization and engagement Initial Goal: Pt will participate in at least three individual or group Activity Therapy sessions per week. Goal repeated / Weekly progress towards goal: did not achieve, 2/3 Group participation level: 1 min, 1 mod Weekly highlights: sang songs during afternoon group Behaviors observed: withdrawn to room, pleasant Plan: no change to goal Beneficial adaptations: music
[2021-06-23 15:48] VITALS: BP 132/70
[2021-06-23] MEDS: DULoxetine HCL 30 MG CAPSULE.DR PO SCH (20:18)
[2021-06-23] MEDS: PHENYTOIN SODIUM EXTENDED 100 MG CAPSULE PO SCH (20:18)
[2021-06-23] MEDS: DULoxetine HCL 20 MG CAPSULE.DR PO SCH (20:18)
[2021-06-23] MEDS: MIRTAZAPINE 7.5 MG TABLET. PO SCH (20:18)
--- NOTE | 2021-06-23 22:20 | PDOC ---
Exam Note: Leo Note: Please also refer to the separate dictated note~for this date of service dictated separately.~Patient seen individually. Discussed the patient with Nursing staff reviewed the chart.~Reviewed interim history and current functioning. Reviewed vital signs,~Labs/ Radiology~and current medications noted below. Continue current treatment with the changes noted in the dictated addendum note Assessment: Vital Signs/I&O: Vital Signs Date Time Temp Pulse Resp B/P (MAP) Pulse Ox O2 Delivery O2 Flow Rate FiO2 06/23/21 17:12 85 132/70 06/23/21 15:48 98.2 20 94 06/23/21 08:17 Room Air I & O 06/22/21 06/22/21 06/23/21 15:00 23:00 07:00 Intake Total 1080 ml 480 ml Balance 1080 ml 480 ml Labs: Laboratory Tests Test 06/23/21 07:25 Glucose (Fingerstick) 120 mg/dL (70-99) H Current Medications: Meds: Laboratory Tests Test 06/23/21 07:25 Glucose (Fingerstick) 120 mg/dL Current Medications Medications (Trade) Dose Ordered Sig/Aparna Route PRN Reason Start Time Stop Time Status Last Admin Dose Admin Acetaminophen (Tylenol) 650 mg PRN Q6HRS PRN PO MILD PAIN / TEMP > 100.3'F 05/17/21 14:45 06/10/21 00:45 Multi-Ingredient Ointment (Analgesic [place]) 1 inna PRN QID PRN TP MUSCLE PAIN 05/17/21 14:45 Al Hydroxide/Mg Hydroxide (Mylanta Plus Xs) 15 ml PRN AFTMEALHC PRN PO DYSPEPSIA 05/17/21 14:45 Magnesium Hydroxide (Milk Of Magnesia) 2,400 mg PRN QHS PRN PO CONSTIPATION 05/17/21 14:45 06/19/21 20:50 Aspirin (Aspirin Enteric Coated) 81 mg DAILY PO 05/18/21 09:00 06/23/21 08:20 Budesonide (Pulmicort) 0.5 mg RTBID IH 05/17/21 20:00 05/18/21 13:26 DC Carvedilol (Coreg) 3.125 mg BIDWMEALS PO 05/17/21 17:00 06/23/21 17:12 Lisinopril (Prinivil) 5 mg DAILY PO 05/18/21 09:00 05/25/21 09:35 DC 05/24/21 08:39 Metformin HCl (Glucophage Xr) 500 mg DAILYWBKFT PO 05/18/21 08:00 06/23/21 08:20 Phenytoin Sodium (Dilantin) 100 mg BID PO 05/17/21 21:00 05/18/21 21:00 DC 05/18/21 20:13 Tamsulosin HCl (Flomax) 0.4 mg DAILY PO 05/18/21 09:00 06/23/21 08:21 Cyanocobalamin (Vitamin B-12) 1,000 mcg DAILY PO 05/18/21 09:00 06/23/21 08:20 Non-Formulary Medication (Ipratropium/ Albuterol Sulfate (Combivent Respimat Inhal)) 1 puff QID INH 05/17/21 17:00 05/17/21 15:02 DC Atorvastatin Calcium (Lipitor) 10 mg DAILY PO 05/18/21 09:00 06/23/21 08:21 Albuterol/ Ipratropium (Duoneb) 3 ml RTQID NEB 05/17/21 16:00 05/17/21 20:45 DC Albuterol/ Ipratropium (Combivent Respimat 20-100 Mcg) 1 puff RTQID INH 05/17/21 20:00 06/23/21 20:18 Gabapentin (Neurontin) 300 mg BID PO 05/17/21 21:00 06/23/21 20:18 Fluticasone Furoate (ARNUITY 100mcg ELLIPTA) 1 puff DAILY INH 05/18/21 14:00 05/21/21 08:27 DC 05/20/21 08:41 Phenytoin Sodium (Dilantin) 300 mg DAILY08 PO 05/19/21 08:00 06/06/21 17:30 DC 06/06/21 08:30 Duloxetine HCl (Cymbalta) 30 mg DAILY PO 05/19/21 09:00 05/25/21 15:56 DC 05/25/21 12:21 Mirtazapine (Remeron) 7.5 mg QHS PO 05/19/21 21:00 06/23/21 20:18 Trazodone HCl (Desyrel) 50 mg PRN QHS PRN PO sleep 05/19/21 12:30 06/11/21 21:31 Divalproex Sodium (Depakote Sprinkles) 125 mg 0900,1300,1700 PO 05/25/21 09:00 05/25/21 16:36 DC 05/25/21 12:20 Duloxetine HCl (Cymbalta) 30 mg DAILY PO 05/26/21 09:00 05/25/21 16:36 DC Duloxetine HCl (Cymbalta) 20 mg DAILY PO 05/26/21 09:00 05/25/21 16:36 DC Duloxetine HCl (Cymbalta) 30 mg DAILY PO 05/26/21 09:00 06/03/21 13:28 DC 06/03/21 08:10 Duloxetine HCl (Cymbalta) 30 mg DAILY PO 06/04/21 09:00 06/06/21 17:51 DC 06/06/21 08:31 Duloxetine HCl (Cymbalta) 20 mg DAILY PO 06/04/21 09:00 06/06/21 17:30 DC 06/06/21 08:31 Duloxetine HCl (Cymbalta) 20 mg HS PO 06/07/21 21:00 06/23/21 20:18 Phenytoin Sodium (Dilantin) 300 mg HS PO 06/07/21 21:00 06/13/21 00:04 DC 06/12/21 21:29 Duloxetine HCl (Cymbalta) 30 mg HS PO 06/07/21 21:00 06/23/21 20:18 Olanzapine (ZyPREXA ZYDIS) 2.5 mg PRN Q2HRS PRN PO PSYCHOSIS 06/10/21 18:45 06/20/21 21:36 Phenytoin Sodium (Dilantin) 100 mg 1X ONCE PO 06/13/21 00:30 06/13/21 00:31 DC 06/13/21 00:23 Phenytoin Sodium (Dilantin) 400 mg HS PO 06/13/21 21:00 06/21/21 16:03 DC 06/20/21 21:35 Guaifenesin (Mucinex Er) 600 mg BID PO 06/14/21 21:00 06/23/21 20:18 Docusate Sodium (Colace) 100 mg DAILY PO 06/20/21 09:00 06/23/21 08:21 Phenytoin Sodium (Dilantin) 500 mg HS PO 06/21/21 21:00 06/23/21 20:18 Albuterol Sulfate (Ventolin) 2.5 mg 1X ONCE NEB 06/23/21 07:45 06/23/21 07:52 DC 06/23/21 07:45 Current Medications Medications (Trade) Dose Ordered Sig/Aparna Route PRN Reason Start Time Stop Time Status Last Admin Dose Admin Albuterol Sulfate (Ventolin) 2.5 mg 1X ONCE NEB 06/23/21 07:45 06/23/21 07:52 DC 06/23/21 07:45 I have reviewed the current psychotropics carefully including drug interactions. Risk benefit ratio favors no change other than as noted in my dictated progress note. Diagnosis: Problems: (1) Major depressive disorder (2) Impulse control disorder, unspecified (3) Anxiety disorder, unspecified (4) Dementia, vascular, with depression (5) Dementia, vascular, with delusions (6) Major neurocognitive disorder NIK LOYA MD Jun 23, 2021 22:20
[2021-06-24 06:03] VITALS: BP 162/79
[2021-06-24 06:16] LABS: PHENY 13.1 mcg/mL (10.0-20.0)
[2021-06-24] MEDS: IPRATROPIUM/ALBUTEROL 20/100mcg/INH INHALER. INH SCH ×4 (08:00→20:20)
[2021-06-24] MEDS: ATORVASTATIN CALCIUM 10 MG TABLET. PO SCH (08:49)
[2021-06-24] MEDS: CARVEDILOL 3.125 MG TABLET PO SCH ×2 (08:49→16:40)
[2021-06-24] MEDS: GABAPENTIN 300 MG CAPSULE. PO SCH ×2 (08:49→20:20)
[2021-06-24] MEDS: metFORMIN XR 500 MG TAB.ER.24H PO SCH (08:49)
[2021-06-24] MEDS: CYANOCOBALAMIN (VITAMIN B-12) 1,000 MCG TABLET. PO SCH (08:49)
[2021-06-24] MEDS: ASPIRIN ENTERIC COATED 81 MG TABLET.DR. PO SCH (08:49)
[2021-06-24] MEDS: TAMSULOSIN 0.4 MG CAP.ER.24H. PO SCH (08:49)
[2021-06-24] MEDS: DOCUSATE SODIUM 100 MG CAPSULE PO SCH (08:49)
[2021-06-24 15:34] VITALS: BP 147/55
--- NOTE | 2021-06-24 16:26 | NUR ---
Patient alert to self. Up in wheelchair to day for meals . No inappropriate comments to staff. Continues with wheezing more this afternoon. Patiet continues with Mucinex and Combivent inhaler.Scocializing with peers. [place] with
[2021-06-24] MEDS: ACETAMINOPHEN 325 MG TABLET PO PRN (16:39)
[2021-06-24] MEDS: MIRTAZAPINE 7.5 MG TABLET. PO SCH (20:21)
[2021-06-24] MEDS: DULoxetine HCL 30 MG CAPSULE.DR PO SCH (20:21)
[2021-06-24] MEDS: DULoxetine HCL 20 MG CAPSULE.DR PO SCH (20:21)
[2021-06-24] MEDS: PHENYTOIN SODIUM EXTENDED 100 MG CAPSULE PO SCH (20:21)
--- NOTE | 2021-06-24 22:19 | PDOC ---
Exam Note: Leo Note: Please also refer to the separate dictated note~for this date of service dictated separately.~Patient seen individually. Discussed the patient with Nursing staff reviewed the chart.~Reviewed interim history and current functioning. Reviewed vital signs,~Labs/ Radiology~and current medications noted below. Continue current treatment with the changes noted in the dictated addendum note Assessment: Vital Signs/I&O: Vital Signs Date Time Temp Pulse Resp B/P (MAP) Pulse Ox O2 Delivery O2 Flow Rate FiO2 06/24/21 16:40 74 147/55 06/24/21 15:34 98.0 18 94 06/23/21 08:17 Room Air I & O 06/23/21 06/23/21 06/24/21 15:00 23:00 07:00 Intake Total 1080 ml 840 ml Balance 1080 ml 840 ml Labs: Laboratory Tests Test 06/24/21 05:55 06/24/21 07:32 Phenytoin (Dilantin) Level 13.1 mcg/mL (10.0-20.0) Phenytoin Last Dose Date 06/23/2021 Phenytoin Last Dose Time 2100 Glucose (Fingerstick) 117 mg/dL (70-99) H Current Medications: Meds: Laboratory Tests Test 06/24/21 05:55 06/24/21 07:32 Phenytoin (Dilantin) Level 13.1 mcg/mL Phenytoin Last Dose Date 06/23/2021 Phenytoin Last Dose Time 2100 Glucose (Fingerstick) 117 mg/dL Current Medications Medications (Trade) Dose Ordered Sig/Aparna Route PRN Reason Start Time Stop Time Status Last Admin Dose Admin Acetaminophen (Tylenol) 650 mg PRN Q6HRS PRN PO MILD PAIN / TEMP > 100.3'F 05/17/21 14:45 06/24/21 16:39 Multi-Ingredient Ointment (Analgesic [place]) 1 inna PRN QID PRN TP MUSCLE PAIN 05/17/21 14:45 Al Hydroxide/Mg Hydroxide (Mylanta Plus Xs) 15 ml PRN AFTMEALHC PRN PO DYSPEPSIA 05/17/21 14:45 Magnesium Hydroxide (Milk Of Magnesia) 2,400 mg PRN QHS PRN PO CONSTIPATION 05/17/21 14:45 06/19/21 20:50 Aspirin (Aspirin Enteric Coated) 81 mg DAILY PO 05/18/21 09:00 06/24/21 08:49 Budesonide (Pulmicort) 0.5 mg RTBID IH 05/17/21 20:00 05/18/21 13:26 DC Carvedilol (Coreg) 3.125 mg BIDWMEALS PO 05/17/21 17:00 06/24/21 16:40 Lisinopril (Prinivil) 5 mg DAILY PO 05/18/21 09:00 05/25/21 09:35 DC 05/24/21 08:39 Metformin HCl (Glucophage Xr) 500 mg DAILYWBKFT PO 05/18/21 08:00 06/24/21 08:49 Phenytoin Sodium (Dilantin) 100 mg BID PO 05/17/21 21:00 05/18/21 21:00 DC 05/18/21 20:13 Tamsulosin HCl (Flomax) 0.4 mg DAILY PO 05/18/21 09:00 06/24/21 08:49 Cyanocobalamin (Vitamin B-12) 1,000 mcg DAILY PO 05/18/21 09:00 06/24/21 08:49 Non-Formulary Medication (Ipratropium/ Albuterol Sulfate (Combivent Respimat Inhal)) 1 puff QID INH 05/17/21 17:00 05/17/21 15:02 DC Atorvastatin Calcium (Lipitor) 10 mg DAILY PO 05/18/21 09:00 06/24/21 08:49 Albuterol/ Ipratropium (Duoneb) 3 ml RTQID NEB 05/17/21 16:00 05/17/21 20:45 DC Albuterol/ Ipratropium (Combivent Respimat 20-100 Mcg) 1 puff RTQID INH 05/17/21 20:00 06/24/21 20:20 Gabapentin (Neurontin) 300 mg BID PO 05/17/21 21:00 06/24/21 20:20 Fluticasone Furoate (ARNUITY 100mcg ELLIPTA) 1 puff DAILY INH 05/18/21 14:00 05/21/21 08:27 DC 05/20/21 08:41 Phenytoin Sodium (Dilantin) 300 mg DAILY08 PO 05/19/21 08:00 06/06/21 17:30 DC 06/06/21 08:30 Duloxetine HCl (Cymbalta) 30 mg DAILY PO 05/19/21 09:00 05/25/21 15:56 DC 05/25/21 12:21 Mirtazapine (Remeron) 7.5 mg QHS PO 05/19/21 21:00 06/24/21 20:21 Trazodone HCl (Desyrel) 50 mg PRN QHS PRN PO sleep 05/19/21 12:30 06/11/21 21:31 Divalproex Sodium (Depakote Sprinkles) 125 mg 0900,1300,1700 PO 05/25/21 09:00 05/25/21 16:36 DC 05/25/21 12:20 Duloxetine HCl (Cymbalta) 30 mg DAILY PO 05/26/21 09:00 05/25/21 16:36 DC Duloxetine HCl (Cymbalta) 20 mg DAILY PO 05/26/21 09:00 05/25/21 16:36 DC Duloxetine HCl (Cymbalta) 30 mg DAILY PO 05/26/21 09:00 06/03/21 13:28 DC 06/03/21 08:10 Duloxetine HCl (Cymbalta) 30 mg DAILY PO 06/04/21 09:00 06/06/21 17:51 DC 06/06/21 08:31 Duloxetine HCl (Cymbalta) 20 mg DAILY PO 06/04/21 09:00 06/06/21 17:30 DC 06/06/21 08:31 Duloxetine HCl (Cymbalta) 20 mg HS PO 06/07/21 21:00 06/24/21 20:21 Phenytoin Sodium (Dilantin) 300 mg HS PO 06/07/21 21:00 06/13/21 00:04 DC 06/12/21 21:29 Duloxetine HCl (Cymbalta) 30 mg HS PO 06/07/21 21:00 06/24/21 20:21 Olanzapine (ZyPREXA ZYDIS) 2.5 mg PRN Q2HRS PRN PO PSYCHOSIS 06/10/21 18:45 06/20/21 21:36 Phenytoin Sodium (Dilantin) 100 mg 1X ONCE PO 06/13/21 00:30 06/13/21 00:31 DC 06/13/21 00:23 Phenytoin Sodium (Dilantin) 400 mg HS PO 06/13/21 21:00 06/21/21 16:03 DC 06/20/21 21:35 Guaifenesin (Mucinex Er) 600 mg BID PO 06/14/21 21:00 06/24/21 20:22 Docusate Sodium (Colace) 100 mg DAILY PO 06/20/21 09:00 06/24/21 08:49 Phenytoin Sodium (Dilantin) 500 mg HS PO 06/21/21 21:00 06/24/21 20:21 Albuterol Sulfate (Ventolin) 2.5 mg 1X ONCE NEB 06/23/21 07:45 06/23/21 07:52 DC 06/23/21 07:45 I have reviewed the current psychotropics carefully including drug interactions. Risk benefit ratio favors no change other than as noted in my dictated progress note. Diagnosis: Problems: (1) Major depressive disorder (2) Impulse control disorder, unspecified (3) Anxiety disorder, unspecified (4) Dementia, vascular, with depression (5) Dementia, vascular, with delusions (6) Major neurocognitive disorder NIK LOYA MD Jun 24, 2021 22:18
[2021-06-25 05:52] VITALS: BP 176/87
[2021-06-25] MEDS: GABAPENTIN 300 MG CAPSULE. PO SCH ×2 (07:54→20:29)
[2021-06-25] MEDS: ASPIRIN ENTERIC COATED 81 MG TABLET.DR. PO SCH (07:54)
[2021-06-25] MEDS: CYANOCOBALAMIN (VITAMIN B-12) 1,000 MCG TABLET. PO SCH (07:54)
[2021-06-25] MEDS: TAMSULOSIN 0.4 MG CAP.ER.24H. PO SCH (07:54)
[2021-06-25] MEDS: ATORVASTATIN CALCIUM 10 MG TABLET. PO SCH (07:54)
[2021-06-25] MEDS: metFORMIN XR 500 MG TAB.ER.24H PO SCH (07:54)
[2021-06-25] MEDS: DOCUSATE SODIUM 100 MG CAPSULE PO SCH (07:55)
[2021-06-25] MEDS: CARVEDILOL 3.125 MG TABLET PO SCH ×2 (07:55→18:04)
[2021-06-25] MEDS: IPRATROPIUM/ALBUTEROL 20/100mcg/INH INHALER. INH SCH ×4 (08:00→20:26)
--- NOTE | 2021-06-25 09:15 | PDOC ---
Exam Note: Leo Note: This note is a late entry for 06/23/2021 covers elements not covered in my initial note. Subjective: The patient was seen individually in the morning of 06/23/2021 for a treatment team meeting with Jennifer Vizcarra, Rivka Pearson (rn social work), Jennifer, activity therapy and Anila KOWALSKI, discussed and reviewed the chart. The patient slept 5-1/2 hours previous night. He has been upset because his nephew came previous evening to wish him happy birthday and was not able to come on the unit due to COVID restrictions. He has attended 2 groups in the past week and was singing sons and yodelling during these times. Review of Systems: Ambulation impaired in wheelchair. No CV, , pulmonary, eye, ENT system symptoms on review. Mental Status Exam: The patient is oriented to himself and situation. Speech c oherent has some latency. Abstraction fair. Computation impaired. Language function intact. Attention span short. Mood and affect somewhat withdrawn. Laboratory Data: Reviewed. 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 Anxiety disorder unspecified. Impulse control disorder unspecified. Plan: No change from initial note. Assessment: Vital Signs/I&O: Vital Signs Date Time Temp Pulse Resp B/P (MAP) Pulse Ox O2 Delivery O2 Flow Rate FiO2 06/25/21 07:55 83 176/87 06/25/21 05:52 98.2 26 93 Room Air I & O 06/24/21 06/24/21 06/25/21 15:00 23:00 07:00 Intake Total 480 ml 480 ml Balance 480 ml 480 ml Labs: Laboratory Tests Test 06/25/21 07:01 Glucose (Fingerstick) 86 mg/dL (70-99) Current Medications: Meds: Laboratory Tests Test 06/25/21 07:01 Glucose (Fingerstick) 86 mg/dL Current Medications Medications (Trade) Dose Ordered Sig/Aparna Route PRN Reason Start Time Stop Time Status Last Admin Dose Admin Acetaminophen (Tylenol) 650 mg PRN Q6HRS PRN PO MILD PAIN / TEMP > 100.3'F 05/17/21 14:45 06/24/21 16:39 Multi-Ingredient Ointment (Analgesic [place]) 1 inna PRN QID PRN TP MUSCLE PAIN 05/17/21 14:45 Al Hydroxide/Mg Hydroxide (Mylanta Plus Xs) 15 ml PRN AFTMEALHC PRN PO DYSPEPSIA 05/17/21 14:45 Magnesium Hydroxide (Milk Of Magnesia) 2,400 mg PRN QHS PRN PO CONSTIPATION 05/17/21 14:45 06/19/21 20:50 Aspirin (Aspirin Enteric Coated) 81 mg DAILY PO 05/18/21 09:00 06/25/21 07:54 Budesonide (Pulmicort) 0.5 mg RTBID IH 05/17/21 20:00 05/18/21 13:26 DC Carvedilol (Coreg) 3.125 mg BIDWMEALS PO 05/17/21 17:00 06/25/21 07:55 Lisinopril (Prinivil) 5 mg DAILY PO 05/18/21 09:00 05/25/21 09:35 DC 05/24/21 08:39 Metformin HCl (Glucophage Xr) 500 mg DAILYWBKFT PO 05/18/21 08:00 06/25/21 07:54 Phenytoin Sodium (Dilantin) 100 mg BID PO 05/17/21 21:00 05/18/21 21:00 DC 05/18/21 20:13 Tamsulosin HCl (Flomax) 0.4 mg DAILY PO 05/18/21 09:00 06/25/21 07:54 Cyanocobalamin (Vitamin B-12) 1,000 mcg DAILY PO 05/18/21 09:00 06/25/21 07:54 Non-Formulary Medication (Ipratropium/ Albuterol Sulfate (Combivent Respimat Inhal)) 1 puff QID INH 05/17/21 17:00 05/17/21 15:02 DC Atorvastatin Calcium (Lipitor) 10 mg DAILY PO 05/18/21 09:00 06/25/21 07:54 Albuterol/ Ipratropium (Duoneb) 3 ml RTQID NEB 05/17/21 16:00 05/17/21 20:45 DC Albuterol/ Ipratropium (Combivent Respimat 20-100 Mcg) 1 puff RTQID INH 05/17/21 20:00 06/25/21 08:00 Gabapentin (Neurontin) 300 mg BID PO 05/17/21 21:00 06/25/21 07:54 Fluticasone Furoate (ARNUITY 100mcg ELLIPTA) 1 puff DAILY INH 05/18/21 14:00 05/21/21 08:27 DC 05/20/21 08:41 Phenytoin Sodium (Dilantin) 300 mg DAILY08 PO 05/19/21 08:00 06/06/21 17:30 DC 06/06/21 08:30 Duloxetine HCl (Cymbalta) 30 mg DAILY PO 05/19/21 09:00 05/25/21 15:56 DC 05/25/21 12:21 Mirtazapine (Remeron) 7.5 mg QHS PO 05/19/21 21:00 06/24/21 20:21 Trazodone HCl (Desyrel) 50 mg PRN QHS PRN PO sleep 05/19/21 12:30 06/11/21 21:31 Divalproex Sodium (Depakote Sprinkles) 125 mg 0900,1300,1700 PO 05/25/21 09:00 05/25/21 16:36 DC 05/25/21 12:20 Duloxetine HCl (Cymbalta) 30 mg DAILY PO 05/26/21 09:00 05/25/21 16:36 DC Duloxetine HCl (Cymbalta) 20 mg DAILY PO 05/26/21 09:00 05/25/21 16:36 DC Duloxetine HCl (Cymbalta) 30 mg DAILY PO 05/26/21 09:00 06/03/21 13:28 DC 06/03/21 08:10 Duloxetine HCl (Cymbalta) 30 mg DAILY PO 06/04/21 09:00 06/06/21 17:51 DC 06/06/21 08:31 Duloxetine HCl (Cymbalta) 20 mg DAILY PO 06/04/21 09:00 06/06/21 17:30 DC 06/06/21 08:31 Duloxetine HCl (Cymbalta) 20 mg HS PO 06/07/21 21:00 06/24/21 20:21 Phenytoin Sodium (Dilantin) 300 mg HS PO 06/07/21 21:00 06/13/21 00:04 DC 06/12/21 21:29 Duloxetine HCl (Cymbalta) 30 mg HS PO 06/07/21 21:00 06/24/21 20:21 Olanzapine (ZyPREXA ZYDIS) 2.5 mg PRN Q2HRS PRN PO PSYCHOSIS 06/10/21 18:45 06/20/21 21:36 Phenytoin Sodium (Dilantin) 100 mg 1X ONCE PO 06/13/21 00:30 06/13/21 00:31 DC 06/13/21 00:23 Phenytoin Sodium (Dilantin) 400 mg HS PO 06/13/21 21:00 06/21/21 16:03 DC 06/20/21 21:35 Guaifenesin (Mucinex Er) 600 mg BID PO 06/14/21 21:00 06/25/21 07:55 Docusate Sodium (Colace) 100 mg DAILY PO 06/20/21 09:00 06/25/21 07:55 Phenytoin Sodium (Dilantin) 500 mg HS PO 06/21/21 21:00 06/24/21 20:21 Albuterol Sulfate (Ventolin) 2.5 mg 1X ONCE NEB 06/23/21 07:45 06/23/21 07:52 DC 06/23/21 07:45 I have reviewed the current psychotropics carefully including drug interactions. Risk benefit ratio favors no change other than as noted in my dictated progress note. Diagnosis: Problems: (1) Impulse control disorder, unspecified (2) Anxiety disorder, unspecified (3) Dementia, vascular, with depression (4) Dementia, vascular, with delusions (5) Major neurocognitive disorder (6) Major depressive disorder NIK LOYA MD Jun 25, 2021 09:15
--- NOTE | 2021-06-25 09:36 | PDOC ---
Exam Note: Leo Note: This note is a late entry for 06/24/2021 covers elements not covered in my initial note. Subjective: The patient was seen individually in the evening of 06/24/2021 with Anila KOWALSKI, discussed and reviewed the chart. The patient slept 5-3/4 hours previous night. The patient has been wheezing and coughing. Chest x-ray per Dr. Villarreal. Dilantin level is 13.1 therapeutic. I met with him in his room. He was lying in bed. Review of Systems: Ambulation impaired in wheelchair. No CV, , eye, ENT system symptoms on review. He complains of some cough. Mental Status Exam: The patient is oriented to himself and situation. Speech coherent has some latency. Abstraction fair. Computation impaired. Language function intact. Attention span short. Mood and affect somewhat withdrawn. Laboratory Data: Reviewed. 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 Anxiety disorder unspecified. Impulse control disorder unspecified. Plan: No change from initial note. Assessment: Vital Signs/I&O: Vital Signs Date Time Temp Pulse Resp B/P (MAP) Pulse Ox O2 Delivery O2 Flow Rate FiO2 06/25/21 07:55 83 176/87 06/25/21 05:52 98.2 26 93 Room Air I & O 06/24/21 06/24/21 06/25/21 15:00 23:00 07:00 Intake Total 480 ml 480 ml Balance 480 ml 480 ml Labs: Laboratory Tests Test 06/25/21 07:01 Glucose (Fingerstick) 86 mg/dL (70-99) Current Medications: Meds: Laboratory Tests Test 06/25/21 07:01 Glucose (Fingerstick) 86 mg/dL Current Medications Medications (Trade) Dose Ordered Sig/Aparna Route PRN Reason Start Time Stop Time Status Last Admin Dose Admin Acetaminophen (Tylenol) 650 mg PRN Q6HRS PRN PO MILD PAIN / TEMP > 100.3'F 05/17/21 14:45 06/24/21 16:39 Multi-Ingredient Ointment (Analgesic [place]) 1 inna PRN QID PRN TP MUSCLE PAIN 05/17/21 14:45 Al Hydroxide/Mg Hydroxide (Mylanta Plus Xs) 15 ml PRN AFTMEALHC PRN PO DYSPEPSIA 05/17/21 14:45 Magnesium Hydroxide (Milk Of Magnesia) 2,400 mg PRN QHS PRN PO CONSTIPATION 05/17/21 14:45 06/19/21 20:50 Aspirin (Aspirin Enteric Coated) 81 mg DAILY PO 05/18/21 09:00 06/25/21 07:54 Budesonide (Pulmicort) 0.5 mg RTBID IH 05/17/21 20:00 05/18/21 13:26 DC Carvedilol (Coreg) 3.125 mg BIDWMEALS PO 05/17/21 17:00 06/25/21 07:55 Lisinopril (Prinivil) 5 mg DAILY PO 05/18/21 09:00 05/25/21 09:35 DC 05/24/21 08:39 Metformin HCl (Glucophage Xr) 500 mg DAILYWBKFT PO 05/18/21 08:00 06/25/21 07:54 Phenytoin Sodium (Dilantin) 100 mg BID PO 05/17/21 21:00 05/18/21 21:00 DC 05/18/21 20:13 Tamsulosin HCl (Flomax) 0.4 mg DAILY PO 05/18/21 09:00 06/25/21 07:54 Cyanocobalamin (Vitamin B-12) 1,000 mcg DAILY PO 05/18/21 09:00 06/25/21 07:54 Non-Formulary Medication (Ipratropium/ Albuterol Sulfate (Combivent Respimat Inhal)) 1 puff QID INH 05/17/21 17:00 05/17/21 15:02 DC Atorvastatin Calcium (Lipitor) 10 mg DAILY PO 05/18/21 09:00 06/25/21 07:54 Albuterol/ Ipratropium (Duoneb) 3 ml RTQID NEB 05/17/21 16:00 05/17/21 20:45 DC Albuterol/ Ipratropium (Combivent Respimat 20-100 Mcg) 1 puff RTQID INH 05/17/21 20:00 06/25/21 08:00 Gabapentin (Neurontin) 300 mg BID PO 05/17/21 21:00 06/25/21 07:54 Fluticasone Furoate (ARNUITY 100mcg ELLIPTA) 1 puff DAILY INH 05/18/21 14:00 05/21/21 08:27 DC 05/20/21 08:41 Phenytoin Sodium (Dilantin) 300 mg DAILY08 PO 05/19/21 08:00 06/06/21 17:30 DC 06/06/21 08:30 Duloxetine HCl (Cymbalta) 30 mg DAILY PO 05/19/21 09:00 05/25/21 15:56 DC 05/25/21 12:21 Mirtazapine (Remeron) 7.5 mg QHS PO 05/19/21 21:00 06/24/21 20:21 Trazodone HCl (Desyrel) 50 mg PRN QHS PRN PO sleep 05/19/21 12:30 06/11/21 21:31 Divalproex Sodium (Depakote Sprinkles) 125 mg 0900,1300,1700 PO 05/25/21 09:00 05/25/21 16:36 DC 05/25/21 12:20 Duloxetine HCl (Cymbalta) 30 mg DAILY PO 05/26/21 09:00 05/25/21 16:36 DC Duloxetine HCl (Cymbalta) 20 mg DAILY PO 05/26/21 09:00 05/25/21 16:36 DC Duloxetine HCl (Cymbalta) 30 mg DAILY PO 05/26/21 09:00 06/03/21 13:28 DC 06/03/21 08:10 Duloxetine HCl (Cymbalta) 30 mg DAILY PO 06/04/21 09:00 06/06/21 17:51 DC 06/06/21 08:31 Duloxetine HCl (Cymbalta) 20 mg DAILY PO 06/04/21 09:00 06/06/21 17:30 DC 06/06/21 08:31 Duloxetine HCl (Cymbalta) 20 mg HS PO 06/07/21 21:00 06/24/21 20:21 Phenytoin Sodium (Dilantin) 300 mg HS PO 06/07/21 21:00 06/13/21 00:04 DC 06/12/21 21:29 Duloxetine HCl (Cymbalta) 30 mg HS PO 06/07/21 21:00 06/24/21 20:21 Olanzapine (ZyPREXA ZYDIS) 2.5 mg PRN Q2HRS PRN PO PSYCHOSIS 06/10/21 18:45 06/20/21 21:36 Phenytoin Sodium (Dilantin) 100 mg 1X ONCE PO 06/13/21 00:30 06/13/21 00:31 DC 06/13/21 00:23 Phenytoin Sodium (Dilantin) 400 mg HS PO 06/13/21 21:00 06/21/21 16:03 DC 06/20/21 21:35 Guaifenesin (Mucinex Er) 600 mg BID PO 06/14/21 21:00 06/25/21 07:55 Docusate Sodium (Colace) 100 mg DAILY PO 06/20/21 09:00 06/25/21 07:55 Phenytoin Sodium (Dilantin) 500 mg HS PO 06/21/21 21:00 06/24/21 20:21 Albuterol Sulfate (Ventolin) 2.5 mg 1X ONCE NEB 06/23/21 07:45 06/23/21 07:52 DC 06/23/21 07:45 I have reviewed the current psychotropics carefully including drug interactions. Risk benefit ratio favors no change other than as noted in my dictated progress note. Diagnosis: Problems: (1) Major depressive disorder (2) Impulse control disorder, unspecified (3) Anxiety disorder, unspecified (4) Dementia, vascular, with depression (5) Dementia, vascular, with delusions (6) Major neurocognitive disorder NIK LOYA MD Jun 25, 2021 09:36
--- NOTE | 2021-06-25 10:20 | NUR ---
Nursing Note Pt pleasant and cooperative, med compliant. Compliant with nasal swab, no agitation or aggression. Was in dayroom early during assessment and is social with peers.
[2021-06-25 15:45] VITALS: BP 124/67
[2021-06-25] MEDS: DULoxetine HCL 20 MG CAPSULE.DR PO SCH (20:28)
[2021-06-25] MEDS: DULoxetine HCL 30 MG CAPSULE.DR PO SCH (20:29)
[2021-06-25] MEDS: MIRTAZAPINE 7.5 MG TABLET. PO SCH (20:29)
[2021-06-25] MEDS ORDERED: PHENYTOIN SODIUM EXTENDED 100 MG CAPSULE PO SCH (21:00)
--- NOTE | 2021-06-25 21:43 | NUR ---
Nursing Note Pt in room during assessment, med compliant and cooperative. Sleepy on and off but awakens for meds and assessments. Lungs have wheezes bilat scattered throughout. Has an inhaler and is compliant lungs clear after admin. No behaviors, or delusions etc.
[2021-06-26 06:17] VITALS: BP 173/77
--- NOTE | 2021-06-26 06:49 | PDOC ---
Exam Note: Leo Note: Late entry for 06/25/2021. Please also refer to the separate dictated note~for this date of service dictated separately.~Patient seen individually. Discussed the patient with Nursing staff reviewed the chart.~Reviewed interim history and current functioning. Reviewed vital signs,~Labs/ Radiology~and current medic ations noted below. Continue current treatment with the changes noted in the dictated addendum note Assessment: Vital Signs/I&O: Vital Signs Date Time Temp Pulse Resp B/P (MAP) Pulse Ox O2 Delivery O2 Flow Rate FiO2 06/26/21 06:17 98.0 93 18 173/77 (109) 91 Room Air I & O 06/25/21 06/25/21 06/26/21 15:00 23:00 07:00 Intake Total 1080 ml 600 ml Balance 1080 ml 600 ml Labs: Laboratory Tests Test 06/25/21 07:01 Glucose (Fingerstick) 86 mg/dL (70-99) Current Medications: Meds: Laboratory Tests Test 06/25/21 07:01 Glucose (Fingerstick) 86 mg/dL Current Medications Medications (Trade) Dose Ordered Sig/Aparna Route PRN Reason Start Time Stop Time Status Last Admin Dose Admin Acetaminophen (Tylenol) 650 mg PRN Q6HRS PRN PO MILD PAIN / TEMP > 100.3'F 05/17/21 14:45 06/24/21 16:39 Multi-Ingredient Ointment (Analgesic [place]) 1 inna PRN QID PRN TP MUSCLE PAIN 05/17/21 14:45 Al Hydroxide/Mg Hydroxide (Mylanta Plus Xs) 15 ml PRN AFTMEALHC PRN PO DYSPEPSIA 05/17/21 14:45 Magnesium Hydroxide (Milk Of Magnesia) 2,400 mg PRN QHS PRN PO CONSTIPATION 05/17/21 14:45 06/19/21 20:50 Aspirin (Aspirin Enteric Coated) 81 mg DAILY PO 05/18/21 09:00 06/25/21 07:54 Budesonide (Pulmicort) 0.5 mg RTBID IH 05/17/21 20:00 05/18/21 13:26 DC Carvedilol (Coreg) 3.125 mg BIDWMEALS PO 05/17/21 17:00 06/25/21 18:04 Lisinopril (Prinivil) 5 mg DAILY PO 05/18/21 09:00 05/25/21 09:35 DC 05/24/21 08:39 Metformin HCl (Glucophage Xr) 500 mg DAILYWBKFT PO 05/18/21 08:00 06/25/21 07:54 Phenytoin Sodium (Dilantin) 100 mg BID PO 05/17/21 21:00 05/18/21 21:00 DC 05/18/21 20:13 Tamsulosin HCl (Flomax) 0.4 mg DAILY PO 05/18/21 09:00 06/25/21 07:54 Cyanocobalamin (Vitamin B-12) 1,000 mcg DAILY PO 05/18/21 09:00 06/25/21 07:54 Non-Formulary Medication (Ipratropium/ Albuterol Sulfate (Combivent Respimat Inhal)) 1 puff QID INH 05/17/21 17:00 05/17/21 15:02 DC Atorvastatin Calcium (Lipitor) 10 mg DAILY PO 05/18/21 09:00 06/25/21 07:54 Albuterol/ Ipratropium (Duoneb) 3 ml RTQID NEB 05/17/21 16:00 05/17/21 20:45 DC Albuterol/ Ipratropium (Combivent Respimat 20-100 Mcg) 1 puff RTQID INH 05/17/21 20:00 06/25/21 20:26 Gabapentin (Neurontin) 300 mg BID PO 05/17/21 21:00 06/25/21 20:29 Fluticasone Furoate (ARNUITY 100mcg ELLIPTA) 1 puff DAILY INH 05/18/21 14:00 05/21/21 08:27 DC 05/20/21 08:41 Phenytoin Sodium (Dilantin) 300 mg DAILY08 PO 05/19/21 08:00 06/06/21 17:30 DC 06/06/21 08:30 Duloxetine HCl (Cymbalta) 30 mg DAILY PO 05/19/21 09:00 05/25/21 15:56 DC 05/25/21 12:21 Mirtazapine (Remeron) 7.5 mg QHS PO 05/19/21 21:00 06/25/21 20:29 Trazodone HCl (Desyrel) 50 mg PRN QHS PRN PO sleep 05/19/21 12:30 06/11/21 21:31 Divalproex Sodium (Depakote Sprinkles) 125 mg 0900,1300,1700 PO 05/25/21 09:00 05/25/21 16:36 DC 05/25/21 12:20 Duloxetine HCl (Cymbalta) 30 mg DAILY PO 05/26/21 09:00 05/25/21 16:36 DC Duloxetine HCl (Cymbalta) 20 mg DAILY PO 05/26/21 09:00 05/25/21 16:36 DC Duloxetine HCl (Cymbalta) 30 mg DAILY PO 05/26/21 09:00 06/03/21 13:28 DC 06/03/21 08:10 Duloxetine HCl (Cymbalta) 30 mg DAILY PO 06/04/21 09:00 06/06/21 17:51 DC 06/06/21 08:31 Duloxetine HCl (Cymbalta) 20 mg DAILY PO 06/04/21 09:00 06/06/21 17:30 DC 06/06/21 08:31 Duloxetine HCl (Cymbalta) 20 mg HS PO 06/07/21 21:00 06/25/21 20:28 Phenytoin Sodium (Dilantin) 300 mg HS PO 06/07/21 21:00 06/13/21 00:04 DC 06/12/21 21:29 Duloxetine HCl (Cymbalta) 30 mg HS PO 06/07/21 21:00 06/25/21 20:29 Olanzapine (ZyPREXA ZYDIS) 2.5 mg PRN Q2HRS PRN PO PSYCHOSIS 06/10/21 18:45 06/20/21 21:36 Phenytoin Sodium (Dilantin) 100 mg 1X ONCE PO 06/13/21 00:30 06/13/21 00:31 DC 06/13/21 00:23 Phenytoin Sodium (Dilantin) 400 mg HS PO 06/13/21 21:00 06/21/21 16:03 DC 06/20/21 21:35 Guaifenesin (Mucinex Er) 600 mg BID PO 06/14/21 21:00 06/25/21 20:29 Docusate Sodium (Colace) 100 mg DAILY PO 06/20/21 09:00 06/25/21 07:55 Phenytoin Sodium (Dilantin) 500 mg HS PO 06/21/21 21:00 06/25/21 17:58 DC 06/24/21 20:21 Albuterol Sulfate (Ventolin) 2.5 mg 1X ONCE NEB 06/23/21 07:45 06/23/21 07:52 DC 06/23/21 07:45 Phenytoin Sodium (Dilantin) 250 mg BID PO 06/25/21 21:00 UNV I have reviewed the current psychotropics carefully including drug interactions. Risk benefit ratio favors no change other than as noted in my dictated progress note. Diagnosis: Problems: (1) Major depressive disorder (2) Impulse control disorder, unspecified (3) Anxiety disorder, unspecified (4) Dementia, vascular, with depression (5) Dementia, vascular, with delusions (6) Major neurocognitive disorder NIK LOYA MD Jun 26, 2021 06:49
[2021-06-26] MEDS: metFORMIN XR 500 MG TAB.ER.24H PO SCH (08:19)
[2021-06-26] MEDS: IPRATROPIUM/ALBUTEROL 20/100mcg/INH INHALER. INH SCH ×2 (08:19→12:20)
[2021-06-26 08:20] VITALS: BP 173/77
[2021-06-26] MEDS: ASPIRIN ENTERIC COATED 81 MG TABLET.DR. PO SCH (08:20)
[2021-06-26] MEDS: CYANOCOBALAMIN (VITAMIN B-12) 1,000 MCG TABLET. PO SCH (08:20)
[2021-06-26] MEDS: CARVEDILOL 3.125 MG TABLET PO SCH (08:20)
[2021-06-26] MEDS: ATORVASTATIN CALCIUM 10 MG TABLET. PO SCH (08:20)
[2021-06-26] MEDS: GABAPENTIN 300 MG CAPSULE. PO SCH (08:21)
[2021-06-26] MEDS: DOCUSATE SODIUM 100 MG CAPSULE PO SCH (08:21)
[2021-06-26] MEDS: TAMSULOSIN 0.4 MG CAP.ER.24H. PO SCH (08:21)
[2021-06-26] MEDS ORDERED: GABA-586 PO (13:20)
[2021-06-26] MEDS ORDERED: DULO20CA50 PO (13:21)
[2021-06-26] MEDS ORDERED: DULO30CA2 PO (13:22)
[2021-06-26] MEDS ORDERED: TRAZ-120 PO (13:23)
[2021-06-26] MEDS ORDERED: MIRT-37 PO (13:23)
[2021-06-26] MEDS ORDERED: OLAN5TAB99 PO (13:24)
[2021-06-26] MEDS ORDERED: GUAI600T47 PO (13:30)
[2021-06-26] MEDS ORDERED: DOCU100C28 PO (13:31)
[2021-06-26] MEDS ORDERED: MAGN24003 PO (13:32)
[2021-06-26] MEDS ORDERED: MAG355OR17 PO (13:34)
[2021-06-26] MEDS ORDERED: ACET325T21 PO (13:35)
[2021-06-26] MEDS ORDERED: METH57CR17 TP (13:36)
--- NOTE | 2021-06-26 14:03 | NUR ---
SW attempted to contact pt nephew, Maikel, to give him an update on pt Covid result. Maikel did not answer and no voicemail could be left due to it being full. ARI will try back again.
--- NOTE | 2021-06-26 14:18 | NUR ---
Transition Record was faxed to follow-up provider with the following elements: Reason for admission, procedures, tests, principal diagnosis, pending studies, patient instructions, 21/06 contact information for unit, phone number to obtain pending test results, plan for follow-up care, physician follow-up, advanced directive information, and medication list with dose, duration and instructions. This information was included in the following documents: History and physical, lab results, study results, progress notes, social work planning form, DC instruction form, patient visit summary, and medication reconciliation form. Date & time record faxed: 06/26/21 2:15 Record faxed to: Maryjane vuong Record discussed with/ report given to: Maryjane KOWALSKI
[2021-06-26] MEDS ORDERED: PHENYTOIN SODIUM EXTENDED 100 MG CAPSULE PO SCH (21:00)
--- NOTE | 2021-06-26 22:09 | PDOC ---
Exam Note: Leo Note: Please also refer to the separate dictated note~for this date of service dictated separately.~Patient seen individually. Discussed the patient with Nursing staff reviewed the chart.~Reviewed interim history and current functioning. Reviewed vital signs,~Labs/ Radiology~and current medications noted below. Continue current treatment with the changes noted in the dictated addendum note Assessment: Vital Signs/I&O: Vital Signs Date Time Temp Pulse Resp B/P (MAP) Pulse Ox O2 Delivery O2 Flow Rate FiO2 06/26/21 08:20 93 173/77 06/26/21 06:17 98.0 18 91 Room Air I & O 06/25/21 06/25/21 06/26/21 15:00 23:00 07:00 Intake Total 1080 ml 600 ml Balance 1080 ml 600 ml Current Medications: Meds: Current Medications Medications (Trade) Dose Ordered Sig/Aparna Route PRN Reason Start Time Stop Time Status Last Admin Dose Admin Acetaminophen (Tylenol) 650 mg PRN Q6HRS PRN PO MILD PAIN / TEMP > 100.3'F 05/17/21 14:45 06/26/21 14:38 DC 06/24/21 16:39 Multi-Ingredient Ointment (Analgesic [place]) 1 inna PRN QID PRN TP MUSCLE PAIN 05/17/21 14:45 06/26/21 14:38 DC Al Hydroxide/Mg Hydroxide (Mylanta Plus Xs) 15 ml PRN AFTMEALHC PRN PO DYSPEPSIA 05/17/21 14:45 06/26/21 14:38 DC Magnesium Hydroxide (Milk Of Magnesia) 2,400 mg PRN QHS PRN PO CONSTIPATION 05/17/21 14:45 06/26/21 14:38 DC 06/19/21 20:50 Aspirin (Aspirin Enteric Coated) 81 mg DAILY PO 05/18/21 09:00 06/26/21 14:38 DC 06/26/21 08:20 Budesonide (Pulmicort) 0.5 mg RTBID IH 05/17/21 20:00 05/18/21 13:26 DC Carvedilol (Coreg) 3.125 mg BIDWMEALS PO 05/17/21 17:00 06/26/21 14:38 DC 06/26/21 08:20 Lisinopril (Prinivil) 5 mg DAILY PO 05/18/21 09:00 05/25/21 09:35 DC 05/24/21 08:39 Metformin HCl (Glucophage Xr) 500 mg DAILYWBKFT PO 05/18/21 08:00 06/26/21 14:38 DC 06/26/21 08:19 Phenytoin Sodium (Dilantin) 100 mg BID PO 05/17/21 21:00 05/18/21 21:00 DC 05/18/21 20:13 Tamsulosin HCl (Flomax) 0.4 mg DAILY PO 05/18/21 09:00 06/26/21 14:38 DC 06/26/21 08:21 Cyanocobalamin (Vitamin B-12) 1,000 mcg DAILY PO 05/18/21 09:00 06/26/21 14:38 DC 06/26/21 08:20 Non-Formulary Medication (Ipratropium/ Albuterol Sulfate (Combivent Respimat Inhal)) 1 puff QID INH 05/17/21 17:00 05/17/21 15:02 DC Atorvastatin Calcium (Lipitor) 10 mg DAILY PO 05/18/21 09:00 06/26/21 14:38 DC 06/26/21 08:20 Albuterol/ Ipratropium (Duoneb) 3 ml RTQID NEB 05/17/21 16:00 05/17/21 20:45 DC Albuterol/ Ipratropium (Combivent Respimat 20-100 Mcg) 1 puff RTQID INH 05/17/21 20:00 06/26/21 14:38 DC 06/26/21 12:20 Gabapentin (Neurontin) 300 mg BID PO 05/17/21 21:00 06/26/21 14:38 DC 06/26/21 08:21 Fluticasone Furoate (ARNUITY 100mcg ELLIPTA) 1 puff DAILY INH 05/18/21 14:00 05/21/21 08:27 DC 05/20/21 08:41 Phenytoin Sodium (Dilantin) 300 mg DAILY08 PO 05/19/21 08:00 06/06/21 17:30 DC 06/06/21 08:30 Duloxetine HCl (Cymbalta) 30 mg DAILY PO 05/19/21 09:00 05/25/21 15:56 DC 05/25/21 12:21 Mirtazapine (Remeron) 7.5 mg QHS PO 05/19/21 21:00 06/26/21 14:38 DC 06/25/21 20:29 Trazodone HCl (Desyrel) 50 mg PRN QHS PRN PO sleep 05/19/21 12:30 06/26/21 14:38 DC 06/11/21 21:31 Divalproex Sodium (Depakote Sprinkles) 125 mg 0900,1300,1700 PO 05/25/21 09:00 05/25/21 16:36 DC 05/25/21 12:20 Duloxetine HCl (Cymbalta) 30 mg DAILY PO 05/26/21 09:00 05/25/21 16:36 DC Duloxetine HCl (Cymbalta) 20 mg DAILY PO 05/26/21 09:00 05/25/21 16:36 DC Duloxetine HCl (Cymbalta) 30 mg DAILY PO 05/26/21 09:00 06/03/21 13:28 DC 06/03/21 08:10 Duloxetine HCl (Cymbalta) 30 mg DAILY PO 06/04/21 09:00 06/06/21 17:51 DC 06/06/21 08:31 Duloxetine HCl (Cymbalta) 20 mg DAILY PO 06/04/21 09:00 06/06/21 17:30 DC 06/06/21 08:31 Duloxetine HCl (Cymbalta) 20 mg HS PO 06/07/21 21:00 06/26/21 14:38 DC 06/25/21 20:28 Phenytoin Sodium (Dilantin) 300 mg HS PO 06/07/21 21:00 06/13/21 00:04 DC 06/12/21 21:29 Duloxetine HCl (Cymbalta) 30 mg HS PO 06/07/21 21:00 06/26/21 14:38 DC 06/25/21 20:29 Olanzapine (ZyPREXA ZYDIS) 2.5 mg PRN Q2HRS PRN PO PSYCHOSIS 06/10/21 18:45 06/26/21 14:38 DC 06/20/21 21:36 Phenytoin Sodium (Dilantin) 100 mg 1X ONCE PO 06/13/21 00:30 06/13/21 00:31 DC 06/13/21 00:23 Phenytoin Sodium (Dilantin) 400 mg HS PO 06/13/21 21:00 06/21/21 16:03 DC 06/20/21 21:35 Guaifenesin (Mucinex Er) 600 mg BID PO 06/14/21 21:00 06/26/21 14:38 DC 06/26/21 08:21 Docusate Sodium (Colace) 100 mg DAILY PO 06/20/21 09:00 06/26/21 14:38 DC 06/26/21 08:21 Phenytoin Sodium (Dilantin) 500 mg HS PO 06/21/21 21:00 06/25/21 17:58 DC 06/24/21 20:21 Albuterol Sulfate (Ventolin) 2.5 mg 1X ONCE NEB 06/23/21 07:45 06/23/21 07:52 DC 06/23/21 07:45 Phenytoin Sodium (Dilantin) 250 mg BID PO 06/25/21 21:00 UNV Phenytoin Sodium (Dilantin) 500 mg HS PO 06/26/21 21:00 06/26/21 14:38 DC I have reviewed the current psychotropics carefully including drug interactions. Risk benefit ratio favors no change other than as noted in my dictated progress note. Diagnosis: Problems: (1) Major depressive disorder (2) Impulse control disorder, unspecified (3) Anxiety disorder, unspecified (4) Dementia, vascular, with depression (5) Dementia, vascular, with delusions (6) Major neurocognitive disorder (7) COVID-19 NIK LOYA MD Jun 26, 2021 22:09
--- NOTE | 2021-06-27 06:35 | PDOC ---
Exam Note: Leo Note: This note is a late entry for 06/25/2021 covers elements not covered in my initial note. Subjective: The patient was seen individually in the evening of 06/25/2021 with Jeanne KOWALSKI, discussed and reviewed the chart. The patient slept 6-1/2 hours previous night. The patient has been pleasant, somewhat withdrawn. Dilantin level is therapeutic at 13.3. We will change the Dilantin from 500 mg h.s. to 250 mg twice a day. I met with him in his room. He has been attending groups. Review of Systems: Ambulation impaired in wheelchair. No CV, , eye, ENT system symptoms on review. Mental Status Exam: The patient is oriented to himself and situation. Speech coherent has some latency. Abstraction fair. Computation impaired. Language function intact. Attention span short. Mood and affect somewhat withdrawn. Laboratory Data: Reviewed. 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 Anxiety disorder unspecified. Impulse control disorder unspecified. Plan: No change from initial note. Assessment: Vital Signs/I&O: Vital Signs Date Time Temp Pulse Resp B/P (MAP) Pulse Ox O2 Delivery O2 Flow Rate FiO2 06/26/21 08:20 93 173/77 06/26/21 06:17 98.0 18 91 Room Air I & O 06/26/21 06/26/21 06/27/21 15:00 23:00 07:00 Intake Total 840 ml Balance 840 ml Current Medications: Meds: Current Medications Medications (Trade) Dose Ordered Sig/Aparna Route PRN Reason Start Time Stop Time Status Last Admin Dose Admin Acetaminophen (Tylenol) 650 mg PRN Q6HRS PRN PO MILD PAIN / TEMP > 100.3'F 05/17/21 14:45 06/26/21 14:38 DC 06/24/21 16:39 Multi-Ingredient Ointment (Analgesic [place]) 1 inna PRN QID PRN TP MUSCLE PAIN 05/17/21 14:45 06/26/21 14:38 DC Al Hydroxide/Mg Hydroxide (Mylanta Plus Xs) 15 ml PRN AFTMEALHC PRN PO DYSPEPSIA 05/17/21 14:45 06/26/21 14:38 DC Magnesium Hydroxide (Milk Of Magnesia) 2,400 mg PRN QHS PRN PO CONSTIPATION 05/17/21 14:45 06/26/21 14:38 DC 06/19/21 20:50 Aspirin (Aspirin Enteric Coated) 81 mg DAILY PO 05/18/21 09:00 06/26/21 14:38 DC 06/26/21 08:20 Budesonide (Pulmicort) 0.5 mg RTBID IH 05/17/21 20:00 05/18/21 13:26 DC Carvedilol (Coreg) 3.125 mg BIDWMEALS PO 05/17/21 17:00 06/26/21 14:38 DC 06/26/21 08:20 Lisinopril (Prinivil) 5 mg DAILY PO 05/18/21 09:00 05/25/21 09:35 DC 05/24/21 08:39 Metformin HCl (Glucophage Xr) 500 mg DAILYWBKFT PO 05/18/21 08:00 06/26/21 14:38 DC 06/26/21 08:19 Phenytoin Sodium (Dilantin) 100 mg BID PO 05/17/21 21:00 05/18/21 21:00 DC 05/18/21 20:13 Tamsulosin HCl (Flomax) 0.4 mg DAILY PO 05/18/21 09:00 06/26/21 14:38 DC 06/26/21 08:21 Cyanocobalamin (Vitamin B-12) 1,000 mcg DAILY PO 05/18/21 09:00 06/26/21 14:38 DC 06/26/21 08:20 Non-Formulary Medication (Ipratropium/ Albuterol Sulfate (Combivent Respimat Inhal)) 1 puff QID INH 05/17/21 17:00 05/17/21 15:02 DC Atorvastatin Calcium (Lipitor) 10 mg DAILY PO 05/18/21 09:00 06/26/21 14:38 DC 06/26/21 08:20 Albuterol/ Ipratropium (Duoneb) 3 ml RTQID NEB 05/17/21 16:00 05/17/21 20:45 DC Albuterol/ Ipratropium (Combivent Respimat 20-100 Mcg) 1 puff RTQID INH 05/17/21 20:00 06/26/21 14:38 DC 06/26/21 12:20 Gabapentin (Neurontin) 300 mg BID PO 05/17/21 21:00 06/26/21 14:38 DC 06/26/21 08:21 Fluticasone Furoate (ARNUITY 100mcg ELLIPTA) 1 puff DAILY INH 05/18/21 14:00 05/21/21 08:27 DC 05/20/21 08:41 Phenytoin Sodium (Dilantin) 300 mg DAILY08 PO 05/19/21 08:00 06/06/21 17:30 DC 06/06/21 08:30 Duloxetine HCl (Cymbalta) 30 mg DAILY PO 05/19/21 09:00 05/25/21 15:56 DC 05/25/21 12:21 Mirtazapine (Remeron) 7.5 mg QHS PO 05/19/21 21:00 06/26/21 14:38 DC 06/25/21 20:29 Trazodone HCl (Desyrel) 50 mg PRN QHS PRN PO sleep 05/19/21 12:30 06/26/21 14:38 DC 06/11/21 21:31 Divalproex Sodium (Depakote Sprinkles) 125 mg 0900,1300,1700 PO 05/25/21 09:00 05/25/21 16:36 DC 05/25/21 12:20 Duloxetine HCl (Cymbalta) 30 mg DAILY PO 05/26/21 09:00 05/25/21 16:36 DC Duloxetine HCl (Cymbalta) 20 mg DAILY PO 05/26/21 09:00 05/25/21 16:36 DC Duloxetine HCl (Cymbalta) 30 mg DAILY PO 05/26/21 09:00 06/03/21 13:28 DC 06/03/21 08:10 Duloxetine HCl (Cymbalta) 30 mg DAILY PO 06/04/21 09:00 06/06/21 17:51 DC 06/06/21 08:31 Duloxetine HCl (Cymbalta) 20 mg DAILY PO 06/04/21 09:00 06/06/21 17:30 DC 06/06/21 08:31 Duloxetine HCl (Cymbalta) 20 mg HS PO 06/07/21 21:00 06/26/21 14:38 DC 06/25/21 20:28 Phenytoin Sodium (Dilantin) 300 mg HS PO 06/07/21 21:00 06/13/21 00:04 DC 06/12/21 21:29 Duloxetine HCl (Cymbalta) 30 mg HS PO 06/07/21 21:00 06/26/21 14:38 DC 06/25/21 20:29 Olanzapine (ZyPREXA ZYDIS) 2.5 mg PRN Q2HRS PRN PO PSYCHOSIS 06/10/21 18:45 06/26/21 14:38 DC 06/20/21 21:36 Phenytoin Sodium (Dilantin) 100 mg 1X ONCE PO 06/13/21 00:30 06/13/21 00:31 DC 06/13/21 00:23 Phenytoin Sodium (Dilantin) 400 mg HS PO 06/13/21 21:00 06/21/21 16:03 DC 06/20/21 21:35 Guaifenesin (Mucinex Er) 600 mg BID PO 06/14/21 21:00 06/26/21 14:38 DC 06/26/21 08:21 Docusate Sodium (Colace) 100 mg DAILY PO 06/20/21 09:00 06/26/21 14:38 DC 06/26/21 08:21 Phenytoin Sodium (Dilantin) 500 mg HS PO 06/21/21 21:00 06/25/21 17:58 DC 06/24/21 20:21 Albuterol Sulfate (Ventolin) 2.5 mg 1X ONCE NEB 06/23/21 07:45 06/23/21 07:52 DC 06/23/21 07:45 Phenytoin Sodium (Dilantin) 250 mg BID PO 06/25/21 21:00 UNV Phenytoin Sodium (Dilantin) 500 mg HS PO 06/26/21 21:00 06/26/21 14:38 DC I have reviewed the current psychotropics carefully including drug interactions. Risk benefit ratio favors no change other than as noted in my dictated progress note. Diagnosis: Problems: (1) Impulse control disorder, unspecified (2) Anxiety disorder, unspecified (3) Dementia, vascular, with depression (4) Dementia, vascular, with delusions (5) Major neurocognitive disorder (6) COVID-19 (7) Major depressive disorder NIK LOYA MD Jun 27, 2021 06:35
== END 2021-06-26 14:38 | disposition short-term general hospital (02) | DRG 885 ==
LOC: ER 10:49 → GEROPSY 14:12
PROVIDERS: ADMIT Psychiatry & Neurology Psychiatry; ATTEND Psychiatry & Neurology Psychiatry
DX: F33.3 Major depressive disorder, recurrent, severe with psychotic symptoms (principal); F01.51 Vascular dementia, unspecified severity, with behavioral disturbance; U07.1 COVID-19; N18.9 Chronic kidney disease, unspecified; D61.818 Other pancytopenia; I62.9 Nontraumatic intracranial hemorrhage, unspecified; B02.9 Zoster without complications; E11.22 Type 2 diabetes mellitus with diabetic chronic kidney disease; E53.8 Deficiency of other specified B group vitamins; E55.9 Vitamin D deficiency, unspecified; E66.9 Obesity, unspecified; E78.5 Hyperlipidemia, unspecified; E86.0 Dehydration; F41.9 Anxiety disorder, unspecified; F63.9 Impulse disorder, unspecified; G40.909 Epilepsy, unspecified, not intractable, without status epilepticus; G47.00 Insomnia, unspecified; I12.9 Hypertensive chronic kidney disease with stage 1 through stage 4 chronic kidney disease, or unspecified chronic kidney disease; J44.9 Chronic obstructive pulmonary disease, unspecified; K59.00 Constipation, unspecified; N40.0 Benign prostatic hyperplasia without lower urinary tract symptoms; W19.XXXA Unspecified fall, initial encounter; Z02.89 Encounter for other administrative examinations; Z86.73 Personal history of transient ischemic attack (TIA), and cerebral infarction without residual deficits
CPT/HCPCS: 36415; 70450; 71045; 73070; 80053; 80061; 80185; 81001; 82306; 82607; 82947; 83036; 83540; 83550; 83735; 84436; 84443; 84480; 85007; 85025; 85027; 86592; 93005; 94640; 95816; U0003; U0005; 99285-25; J7613

== ENCOUNTER 2021-06-26 14:07 | Inpatient (IN) | payer MEDICARE ==
[~2021-06-26] VITALS: Ht 185.4 cm; Wt 98.2 kg
[~2021-06-26 14:07] MED LIST: ACET325T21 PO; ASPI-889 PO; BUDE0.5A11 IH; CARV3.12 PO; CYAN100031 PO; DOCU100C28 PO; DULO20CA50 PO; DULO30CA2 PO; GABA-586 PO; GUAI600T47 PO; IPRA4AER INH; LISI-517 PO; MAG355OR17 PO; MAGN24003 PO; METF500T3 PO; METH57CR17 TP; MIRT-37 PO; OLAN5TAB99 PO; PHEN100C PO; PRAV40TA2 PO; TAMS0.4C97 PO; TRAZ-120 PO
[2021-06-26] MEDS ORDERED: HALOPERIDOL LACT 5 MG/ML VIAL. ONE (15:40)
[2021-06-26] MEDS ORDERED: HALOPERIDOL LACT 5 MG/ML VIAL. IM ONE (15:45)
--- NOTE | 2021-06-26 15:54 | NUR ---
NURSING NOTE PT BROUGHT DOWN FROM [facility], PT IS CURRENTLY AGGRESSIVE, RESISTIVE, DISRUPTING OTHER PATIENTS, YELLING AND DEMANDING AT STAFF. PT IS NOT REDIRECTABLE, REFUSING TO GO TO ROOM FOR COVID ISOLATION. ORDER FROM DR PAGE FOR X1 TIME DOSE OF IM HALDOL 5MG. SECURITY, NURSING LEGAL SERVICE SPECIALIST, THIS NURSE AND JULI RN ACCOMPANIED PATIENT. CÉSAR KOWALSKI
[2021-06-26] MEDS ORDERED: METHYL SALICYLATE/MENTHOL TOPICAL OINTMENT 57GM TUBE. TP PRN (16:15)
[2021-06-26] MEDS ORDERED: MAG HYDROX/AL HYDROX/SIMETH 30 ML ORAL.SUSP PO PRN (17:00)
--- NOTE | 2021-06-26 17:19 | HP ---
ADMIT DATE: 06/26/2021 HISTORY OF PRESENT ILLNESS: The patient is a 81-year-old male patient who was transferred from [facility] on account of being positive for coronavirus test. The patient himself is asymptomatic, offered no complaint; in particular, no fever, cough, phlegm, shortness of breath or hypoxia. He was transferred to [address] [place] [address] to be quarantined. He himself does not believe that he has any infection, was very argumentative and was actually combative when he arrived to the unit. PAST MEDICAL HISTORY: Significant for chronic obstructive pulmonary disease, type 2 diabetes mellitus, hypertension, obesity, seizure disorder, did have a history of CVA, benign prostatic hypertrophy, chronic kidney disease, recurrent falls, macrocytic anemia. PAST SURGICAL HISTORY: The patient stated that he has multiple surgeries, but he was unable to tell me exactly what kind of surgeries he had before. ALLERGIES: He has no known drug allergies. FAMILY HISTORY: Noncontributory. SOCIAL HISTORY: He is a resident at [facility] in [employer]. He apparently does not smoke, drink alcohol or use recreational drugs. MEDICATIONS: He is currently on the following medications: He is on pravastatin sodium 40 mg at bedtime, cyanocobalamin 1000 mcg p.o. daily, tamsulosin 0.4 mg once a day, Colace 100 mg once a day, aspirin 81 mg once a day, metformin 500 mg daily with breakfast, phenytoin sodium 500 mg p.o. at bedtime, mirtazapine 7.5 mg at bedtime, guaifenesin 600 mg twice a day, gabapentin 300 mg twice a day, duloxetine 20 mg at bedtime. He is also on ipratropium bromide/albuterol or Combivent Respimat 1 puff 4 times a day, carvedilol 3.125 mg twice a day, milk of magnesia 30 mL p.o. daily p.r.n. for constipation, Mylanta 15 mL after meals and as needed, trazodone 50 mg at bedtime, olanzapine 2.5 mg every 2 hours, analgesic balm applied topically 4 times a day and acetaminophen 650 mg every 4 hours as needed. PHYSICAL EXAMINATION: GENERAL: When I examined him, he was sitting comfortably in his wheelchair in no apparent respiratory distress. There was no pallor, jaundice, cyanosis; no lymphadenopathy, no thyromegaly, no jugular venous distention. No lower limb edema. VITAL SIGNS: His heart rate was 93, blood pressure was 173/77, temperature was 98, respiratory rate was 18 and oxygen saturation was 92% on room air. HEAD, EYES, EARS, NOSE, AND THROAT: Normocephalic, atraumatic. NECK: Supple. HEART: Normal first and second heart sounds, no gallop, rub or murmur. CHEST: Clear to auscultation, no crepitation or rhonchi. ABDOMEN: Distended, soft, nontender. NEUROLOGIC: He is awake, alert. All his cranial nerves were intact. He moves extremities without difficulty, although he is mostly bedbound/wheelchair bound. ASSESSMENT: In summary, this is a 81-year-old male patient who was transferred from [facility] on account of being positive for coronavirus by PCR. He is clinically asymptomatic. He has multiple other medical problems including COPD, seizure disorder, type 2 diabetes mellitus, hyperlipidemia, benign prostatic hypertrophy. PLAN: We will continue with all his current medications. I will obviously check his labs tomorrow including CBC, CMP, D-dimer and C-reactive protein. Meanwhile, we will continue with all his medications. SAIMA DR: Eduardo TID: [id number]
[2021-06-26 17:27] VITALS: BP 114/66
[2021-06-26] MEDS: CARVEDILOL 3.125 MG TABLET PO SCH (17:41)
[2021-06-26] MEDS: GABAPENTIN 300 MG CAPSULE. PO SCH (20:36)
[2021-06-26] MEDS: DULoxetine HCL 30 MG CAPSULE.DR PO SCH (20:36)
[2021-06-26] MEDS: PHENYTOIN SODIUM EXTENDED 100 MG CAPSULE PO SCH (20:36)
[2021-06-26] MEDS: MIRTAZAPINE 7.5 MG TABLET. PO SCH (20:36)
[2021-06-26] MEDS: DULoxetine HCL 20 MG CAPSULE.DR PO SCH (20:36)
[2021-06-26] MEDS: traZODone 50 MG TABLET. PO PRN (20:36)
[2021-06-26] MEDS: IPRATROPIUM/ALBUTEROL 20/100mcg/INH INHALER. INH SCH (20:48)
[2021-06-27] MEDS: IPRATROPIUM/ALBUTEROL 20/100mcg/INH INHALER. INH SCH ×4 (06:33→20:48)
--- NOTE | 2021-06-27 06:34 | NUR ---
Patient needed to use the bedside commode after which he exerted himself trying to get back into bed; Nurse noticed patient wheezing heavily and after helping with repositioning, nurse administered his 0800am inhaler an hour and 30 minutes earlier to help with the wheezing since patient does not have a prn dose/inhaler. F/U with day shift RN to possibly request prn dose or rescue inhaler for patient.
[2021-06-27 06:43] LABS: BASO # 0.1 x10^3/uL (0.0-0.2); BASO % 1 % (0-3); EOS # 0.9 x10^3/uL (0.0-0.7); EOS % 14 % (0-3); HEMATOCRIT 35.6 % (39.0-53.0); HEMOGLOBIN 11.7 g/dL (13.0-17.5); LYMPH # 1.9 x10^3/uL (1.0-4.8); LYMPH % 30 % (24-48); MEAN CORPUSCULAR HEMOGLOBIN 34 pg (25-35); MEAN CORPUSCULAR HGB CONC 33 g/dL (31-37); MEAN CORPUSCULAR VOLUME 103 fL (79-100); MONO # 0.6 x10^3/uL (0.0-1.1); MONO % 9 % (0-9); NEUT % 47 % (31-73); PLATELET COUNT 123 x10^3/uL (140-400); RED BLOOD COUNT 3.47 x10^6/uL (4.30-5.70); RED CELL DISTRIBUTION WIDTH 14.9 % (11.5-14.5); WHITE BLOOD COUNT 6.4 x10^3/uL (4.0-11.0)
[2021-06-27 06:53] LABS: ALBUMIN 3.5 g/dL (3.4-5.0); C REACTIVE PROTEIN 4.3 mg/L (0-3.3); CALCIUM 8.7 mg/dL (8.5-10.1); CREATININE 1.2 mg/dL (0.7-1.3); GFR 58.4; POTASSIUM 4.4 mmol/L (3.5-5.1); TOTAL BILIRUBIN 0.3 mg/dL (0.2-1.0)
[2021-06-27] MEDS: ACETAMINOPHEN 325 MG TABLET PO PRN ×3 (08:08→20:49)
[2021-06-27] MEDS: metFORMIN XR 500 MG TAB.ER.24H PO SCH (08:08)
[2021-06-27] MEDS: GABAPENTIN 300 MG CAPSULE. PO SCH ×2 (08:08→20:49)
[2021-06-27] MEDS: TAMSULOSIN 0.4 MG CAP.ER.24H. PO SCH (08:09)
[2021-06-27] MEDS: CYANOCOBALAMIN (VITAMIN B-12) 1,000 MCG TABLET. PO SCH (08:09)
[2021-06-27] MEDS: ATORVASTATIN CALCIUM 10 MG TABLET. PO SCH (08:09)
[2021-06-27] MEDS: DOCUSATE SODIUM 100 MG CAPSULE PO SCH (08:09)
[2021-06-27] MEDS: ASPIRIN ENTERIC COATED 81 MG TABLET.DR. PO SCH (08:09)
[2021-06-27] MEDS: CARVEDILOL 3.125 MG TABLET PO SCH ×2 (12:10→17:00)
[2021-06-27 12:54] VITALS: BP 122/74
--- NOTE | 2021-06-27 15:05 | NUR ---
Nsg note; Nasir slept until 1145 this am and was awakened for his lunch. vital signs and FSBS WNL. pt up to w/c with standby assist after using BSC for urination. Ate lunch. took meds whole without difficulty. went back to bed at approx 1430 stating he likes to sleep
[2021-06-27 20:10] VITALS: BP 121/52
[2021-06-27] MEDS: PHENYTOIN SODIUM EXTENDED 100 MG CAPSULE PO SCH (20:49)
[2021-06-27] MEDS: traZODone 50 MG TABLET. PO PRN (20:50)
[2021-06-27] MEDS: DULoxetine HCL 30 MG CAPSULE.DR PO SCH (20:50)
[2021-06-27] MEDS: MIRTAZAPINE 7.5 MG TABLET. PO SCH (20:50)
[2021-06-27] MEDS: DULoxetine HCL 20 MG CAPSULE.DR PO SCH (20:50)
--- NOTE | 2021-06-27 23:56 | DS ---
DATE OF DISCHARGE: 06/26/2021 This is a late entry, date of service 06/26/2021, covers elements not covered in my initial note. REASON FOR ADMISSION: Please refer to the admission history for details. Briefly, the patient is a 81-year-old male referred to us from the family medicine clinic in [place]. He lives in a skilled nursing community, then has been given a 30-day eviction notice because of his psychotic symptoms since he had been hallucinating, paranoid, threatening to leave the skilled nursing community. He was depressed, crying frequently, disoriented, sexually inappropriate conversation with peers has been noted. He was paranoid, believed his money was being stolen and that his dog had been murdered. He had failed outpatient psychiatric interventions resulting in this referral. SIGNIFICANT FINDINGS AND CLINICAL COURSE: Following admission, the patient was seen daily individually by myself from a Psychiatric standpoint, medical followup with Dr. Niño/Dr. Villarreal. The patient remained depressed, anxious, seemed to be having some intermittent seizure-like activity. He is followed by Dr. Newman, Neurology for this and Dilantin adjusted to reach therapeutic level of 13.1. EEG was confirmatory for the seizure focus. Gradually, the patient's mood appeared to improve. He is still withdrawn, but better. REVIEW OF SYSTEMS: Ambulation impaired with walker/wheelchair. No CV, , pulmonary, eye, ENT system symptoms on review. MENTAL STATUS EXAMINATION: The patient is oriented to himself, situation. Speech is coherent, has some latency. Abstraction fair. Computation impaired. Language function intact. Mood and affect, withdrawn, but improved. No suicidal ideation at discharge. FINAL DIAGNOSES: Major depressive disorder, recurrent with psychotic features, major neurocognitive disorder; early Alzheimer, vascular with delusion; depression, behavioral disturbance, anxiety disorder, unspecified; impulse control disorder, unspecified. The patient's hospitalization was continuing but at this stage, he tested positive for COVID-19 and was transferred to the medical-surgical floor for further stabilization. We will be happy to have him back on our unit once he is medically stable and if he still meets inpatient criteria. Time for discharge day management greater than [address]: Melissa TID: [id number]
--- NOTE | 2021-06-28 01:33 | PN ---
DATE: 06/27/2021 SUBJECTIVE: The patient is resting comfortably in his wheelchair in no apparent distress. He continued to complain of cough with scanty whitish sputum. He denied any chest pain. Did complain of shortness of breath on exertion, but denied any orthopnea or paroxysmal nocturnal dyspnea. Denied any chills, rigors or fever. PHYSICAL EXAMINATION: GENERAL: When I examined him, he looked well and was clearly in no apparent respiratory distress. He was somewhat pale, but no jaundice, cyanosis or thyromegaly. No jugular venous distention. No limb edema. VITAL SIGNS: Her heart rate was 88, blood pressure is 122/74, temperature 97.4, respiratory rate 20, and oxygen saturation was 94% on room air. HEAD, EYES, EARS, NOSE, EYES, EARS, NOSE, AND THROAT: Normocephalic, atraumatic. NECK: Supple. HEART: Showed normal first and second heart sounds, no gallop or murmur. CHEST: Shows central trachea, equally reduced expansion, reduced air entry, vesicular breath sounds. No crepitation or rhonchi. ABDOMEN: Distended, soft, nontender. NEUROLOGIC: He was awake, alert, responding appropriately. Cranial nerves intact. He moves extremities without difficulty, though is mostly bedbound, wheelchair bound. INTAKE/OUTPUT: His intake and output are incompletely recorded. LABORATORY DATA: This morning showed a white cell count of 6400, hemoglobin 12, hematocrit 36, MCV 103 and platelet count of 123,000 with normal manual differential. His chemistry showed a serum sodium of 145, potassium 4.5, chloride 107, bicarbonate 31, anion gap of 7, BUN 39, creatinine 1.2. Estimated GFR was 58 mL per minute. His glucose 142, calcium was 8.7. Total bilirubin, AST, ALT were normal. Alkaline phosphatase slightly elevated. C-reactive protein was 4.3. D-dimer was high at 3.51. ASSESSMENT: 1. Asymptomatic COVID-19 pneumonia. 2. Chronic obstructive pulmonary disease. 3. Seizure disorder. 4. Type 2 diabetes mellitus. 5. Hyperlipidemia. 6. Benign prostatic hypertrophy. PLAN: To continue with all his current medication. We will continue to monitor him on a daily basis. SERGIO DR: Eduardo TID: [id number]
[2021-06-28 07:00] VITALS: BP 163/70
[2021-06-28] MEDS: DOCUSATE SODIUM 100 MG CAPSULE PO SCH (08:52)
[2021-06-28] MEDS: CARVEDILOL 3.125 MG TABLET PO SCH ×2 (08:52→17:22)
[2021-06-28] MEDS: ATORVASTATIN CALCIUM 10 MG TABLET. PO SCH (08:52)
[2021-06-28] MEDS: GABAPENTIN 300 MG CAPSULE. PO SCH ×2 (08:52→20:11)
[2021-06-28] MEDS: ASPIRIN ENTERIC COATED 81 MG TABLET.DR. PO SCH (08:52)
[2021-06-28] MEDS: CYANOCOBALAMIN (VITAMIN B-12) 1,000 MCG TABLET. PO SCH (08:53)
[2021-06-28] MEDS: TAMSULOSIN 0.4 MG CAP.ER.24H. PO SCH (08:53)
[2021-06-28] MEDS: IPRATROPIUM/ALBUTEROL 20/100mcg/INH INHALER. INH SCH ×4 (08:56→20:10)
[2021-06-28] MEDS: metFORMIN XR 500 MG TAB.ER.24H PO SCH (08:59)
[2021-06-28 18:35] VITALS: BP 159/78
[2021-06-28] MEDS: MAGNESIUM HYDROXIDE 2,400 MG/30 ML ORAL.SUSP. PO PRN (18:43)
[2021-06-28] MEDS: DULoxetine HCL 30 MG CAPSULE.DR PO SCH (20:11)
[2021-06-28] MEDS: MIRTAZAPINE 7.5 MG TABLET. PO SCH (20:11)
[2021-06-28] MEDS: PHENYTOIN SODIUM EXTENDED 100 MG CAPSULE PO SCH (20:11)
[2021-06-28] MEDS: DULoxetine HCL 20 MG CAPSULE.DR PO SCH (20:11)
[2021-06-28] MEDS: traZODone 50 MG TABLET. PO PRN (20:11)
--- NOTE | 2021-06-28 22:48 | PN ---
DATE: 06/28/2021 SUBJECTIVE: The patient is sitting comfortably in his wheelchair in no apparent distress. On questioning him, he denied any complaint. The nursing staff did not voice any concern and stated that he had an uneventful night. PHYSICAL EXAMINATION: GENERAL: When I examined him, he looked somewhat pale, but no jaundice, cyanosis or thyromegaly. No jugular venous distention. No limb edema. VITAL SIGNS: Her heart rate was 86, blood pressure is 163/70, temperature 98.3, respiratory rate 20, and oxygen saturation was 97% on room air. HEAD, EYES, EARS, NOSE, AND THROAT: Normocephalic, atraumatic. NECK: Supple. HEART: Showed normal first and second heart sounds, no gallop, rub or murmur. CHEST: Showed central trachea, equally reduced expansion, reduced air entry. I really could not appreciate any crepitation or rhonchi. ABDOMEN: Markedly distended, soft, nontender. NEUROLOGIC: He was demented, but without any obvious lateralizing sign. He is mostly wheelchair bound. INTAKE/OUTPUT: His intake and output are incompletely recorded. LABORATORY DATA: As of yesterday, his white cell count was 6400, hemoglobin 12, hematocrit 36, MCV 103 and platelet count of 123,000. His serum sodium was 145, potassium 4.4, chloride 107, bicarbonate 31, anion gap of 7, BUN 39, creatinine 1.2. ASSESSMENT: 1. Asymptomatic COVID-19 pneumonia. 2. Chronic obstructive pulmonary disease. 3. Seizure disorder. 4. Type 2 diabetes mellitus. 5. Hyperlipidemia. 6. Benign prostatic hypertrophy. PLAN: To continue with current plan of management. Continue with all his medication including the psychotropic medication. ANNETTE DR: Eduardo TID: [id number]
[2021-06-29 06:00] VITALS: BP 160/80
[2021-06-29] MEDS: POLYETHYLENE GLYCOL 3350 17 GM PACKET. PO PRN (08:07)
[2021-06-29] MEDS: TAMSULOSIN 0.4 MG CAP.ER.24H. PO SCH (08:07)
[2021-06-29] MEDS: GABAPENTIN 300 MG CAPSULE. PO SCH ×2 (08:07→20:24)
[2021-06-29] MEDS: DOCUSATE SODIUM 100 MG CAPSULE PO SCH (08:07)
[2021-06-29] MEDS: CARVEDILOL 3.125 MG TABLET PO SCH ×2 (08:07→17:10)
[2021-06-29] MEDS: ATORVASTATIN CALCIUM 10 MG TABLET. PO SCH (08:08)
[2021-06-29] MEDS: ASPIRIN ENTERIC COATED 81 MG TABLET.DR. PO SCH (08:08)
[2021-06-29] MEDS: CYANOCOBALAMIN (VITAMIN B-12) 1,000 MCG TABLET. PO SCH (08:08)
[2021-06-29] MEDS: IPRATROPIUM/ALBUTEROL 20/100mcg/INH INHALER. INH SCH ×4 (08:13→20:24)
[2021-06-29] MEDS: metFORMIN XR 500 MG TAB.ER.24H PO SCH (08:13)
[2021-06-29] MEDS: MAGNESIUM HYDROXIDE 2,400 MG/30 ML ORAL.SUSP. PO PRN (19:01)
[2021-06-29 19:15] VITALS: BP 146/80
[2021-06-29] MEDS: MIRTAZAPINE 7.5 MG TABLET. PO SCH (20:24)
[2021-06-29] MEDS: PHENYTOIN SODIUM EXTENDED 100 MG CAPSULE PO SCH (20:25)
[2021-06-29] MEDS: DULoxetine HCL 20 MG CAPSULE.DR PO SCH (20:33)
[2021-06-29] MEDS: DULoxetine HCL 30 MG CAPSULE.DR PO SCH (20:33)
--- NOTE | 2021-06-30 00:02 | PN ---
DATE: 06/29/2021 SUBJECTIVE: The patient is sitting in his wheelchair, eating his supper comfortably, in no apparent distress. He apparently is more cooperative and compliant and no more combative. Nursing staff stated once he is in the chair, his wheezing is much less. We are treating him with his bronchodilator and when I examined him this afternoon, he denied any shortness of breath, cough, phlegm, or hemoptysis. Denied any chills, rigors or fever. PHYSICAL EXAMINATION: GENERAL: When I examined him, he looked well, pale, but not jaundiced or cyanosed. No lymphadenopathy, no thyromegaly, no jugular venous distention. No limb edema. VITAL SIGNS: His heart rate was 71, blood pressure was 160/80, temperature was 98.7, respiratory rate was 18 and oxygen saturation was 92% on room air. HEAD, EYES, EARS, NOSE, AND THROAT: Normocephalic, atraumatic. NECK: Supple. HEART: Normal first and second heart sounds, no gallop or murmur. CHEST: Shows central trachea, equally reduced expansion, reduced air entry, vesicular breath sounds, very few scattered rhonchi. No crepitation. ABDOMEN: Distended, soft, nontender. NEUROLOGIC: Grossly intact. He is mostly wheelchair bound. INTAKE AND OUTPUT: His intake was 718, no output was recorded. LABORATORY DATA: Stable. His blood sugar seemed to be well controlled. ASSESSMENT: 1. Asymptomatic COVID-19 pneumonia. 2. Chronic obstructive pulmonary disease. 3. Seizure disorder. 4. Type 2 diabetes mellitus. 5. Hyperlipidemia. 6. Benign prostatic hypertrophy. PLAN: To continue with all psychotropic medication. Continue with bronchodilator. Continue to monitor his blood sugar. We will obviously wait to be tested for his coronavirus by PCR and if negative, he might be able to [facility] back to [facility]. HARMONY DR: Eduardo TID: [id number]
[2021-06-30] MEDS: traZODone 50 MG TABLET. PO PRN ×2 (00:57→20:45)
[2021-06-30 06:42] VITALS: BP 167/83
--- NOTE | 2021-06-30 06:50 | NUR ---
Nursing Note The patient was calm and compliant with cares/assessment and medications. the patient took his medication whole. The patient complained of constipation early in the shift and was given PRN MOM per PRN order. The patient was given PRN trazodone @ HS per PRN order. The patient was pleasant during interactions with this nurse. CUrrently awake in room.
[2021-06-30] MEDS: IPRATROPIUM/ALBUTEROL 20/100mcg/INH INHALER. INH SCH ×4 (08:00→20:44)
[2021-06-30] MEDS: CARVEDILOL 3.125 MG TABLET PO SCH ×2 (08:10→17:04)
[2021-06-30] MEDS: TAMSULOSIN 0.4 MG CAP.ER.24H. PO SCH (08:10)
[2021-06-30] MEDS: metFORMIN XR 500 MG TAB.ER.24H PO SCH (08:10)
[2021-06-30] MEDS: GABAPENTIN 300 MG CAPSULE. PO SCH ×2 (08:11→20:45)
[2021-06-30] MEDS: CYANOCOBALAMIN (VITAMIN B-12) 1,000 MCG TABLET. PO SCH (08:11)
[2021-06-30] MEDS: DOCUSATE SODIUM 100 MG CAPSULE PO SCH (08:11)
[2021-06-30] MEDS: ASPIRIN ENTERIC COATED 81 MG TABLET.DR. PO SCH (08:12)
[2021-06-30] MEDS: ATORVASTATIN CALCIUM 10 MG TABLET. PO SCH (08:12)
--- NOTE | 2021-06-30 18:00 | NUR ---
NURSING NOTE REPORT FROM DEX MARIE. NO BEHAVIORS NOTED THUS FAR. CÉSAR KOWALSKI.
--- NOTE | 2021-06-30 18:31 | NUR ---
NURSING NOTE PT NON COMPLIANT WITH ISOLATION PROTOCOL. PT CONTINUOUSLY ATTEMPTING TO COME OUT OF HIS ROOM. PT STATED "YOU CANT LEAVE ME IN HERE, I AM NOT SICK". PT OFFERED TO LAY DOWN, PT CURRENTLY IN BED AT THIS TIME. DEX LINDSEY.
[2021-06-30 19:00] VITALS: BP 154/83
--- NOTE | 2021-06-30 19:30 | NUR ---
Patient was agitated and attempting to get out of his room stating he has to go home today whether we like it or not. Re-directing patient and attempts to explain to patient that his COVID status coupled with the current outbreak is the basis for his needing to remain in here and not put others in danger, were all futile and patient would occasionally get verbally aggressive and belligerent with staff. After staying with patient so he can calm down, Nurse decided patient needed to be a 1-on-1 until he completely calms down and is ready to go to bed. Patient was not aggressive towards staff and was compliant with his bedtime medications and after a couple of hours on 1-on-1, patient stated " I just need a glass of fresh cold water and i promise i will go to bed." Patient was offered a cup of fresh water and he took himself to bed after drinking his water. Patient has not shown any behaviors since then. Will continue to monitor.
[2021-06-30] MEDS: MIRTAZAPINE 7.5 MG TABLET. PO SCH (20:44)
[2021-06-30] MEDS: DULoxetine HCL 20 MG CAPSULE.DR PO SCH (20:44)
[2021-06-30] MEDS: DULoxetine HCL 30 MG CAPSULE.DR PO SCH (20:45)
[2021-06-30] MEDS: PHENYTOIN SODIUM EXTENDED 100 MG CAPSULE PO SCH (20:46)
--- NOTE | 2021-07-01 01:37 | PN ---
DATE: 06/30/2021 SUBJECTIVE: The patient is sitting comfortably in his wheelchair in no apparent distress. On questioning him, he denied any complaint. The nursing staff did not voice any concerns, stated that he had an eventful night. OBJECTIVE: GENERAL: When I examined him, he looked well and was clearly in no apparent respiratory distress, slightly pale, but no jaundice, cyanosis or thyromegaly. No jugular venous distention. No limb edema. VITAL SIGNS: His heart rate was 85, blood pressure is 167/83, temperature was 98.2, respiratory rate was 22 and oxygen saturation was 94% on room air. HEAD, EYES, EARS, NOSE, THROAT: Normocephalic, atraumatic. NECK: Supple. HEART: Showed normal first and second heart sounds, no gallop or murmur. CHEST: Showed central trachea, equally reduced expansion, reduced air entry, vesicular breath sounds. No crepitation or rhonchi. ABDOMEN: Markedly distended, soft, nontender. NEUROLOGIC: He is awake, alert, responding appropriately. All cranial nerves intact. He moves extremities without difficulty. He is mostly wheelchair bound. INTAKE/OUTPUT: His intake was 1280, no output was recorded. LABORATORY DATA: His blood sugar seems to be reasonably controlled. ASSESSMENT: 1. Asymptomatic COVID-19 pneumonia. 2. Chronic obstructive pulmonary disease. 3. Seizure disorder. 4. Type 2 diabetes mellitus. 5. Hyperlipidemia. 6. Benign prostatic hypertrophy. PLAN: To continue with all psychotropic medication. Continue with bronchodilator. Continue to monitor blood sugar. We will obviously wait to be tested for his coronavirus PCR and if negative, he might be able to go back to [facility]. ALEX DR: Eduardo TID: [id number]
--- NOTE | 2021-07-01 04:00 | NUR ---
Patient woke up in his room to use the urinal/commode and ended up having an accident with urine on his pants and on a considerable portion of his floor, before he could ask for help from staff. He walked from his bed to the door without his walker or wheelchair. Patient was immediately re-directed to his wheelchair and education on calling for help when needed and before there is an urgency was reinforced. Staff changed and cleaned patient before helping him back to bed. Floor of the room was also cleaned and dried. Will continue to monitor.
[2021-07-01 06:30] VITALS: BP 137/62
[2021-07-01] MEDS: IPRATROPIUM/ALBUTEROL 20/100mcg/INH INHALER. INH SCH ×4 (08:00→20:33)
[2021-07-01] MEDS: ASPIRIN ENTERIC COATED 81 MG TABLET.DR. PO SCH (08:20)
[2021-07-01] MEDS: CYANOCOBALAMIN (VITAMIN B-12) 1,000 MCG TABLET. PO SCH (08:20)
[2021-07-01] MEDS: metFORMIN XR 500 MG TAB.ER.24H PO SCH (08:20)
[2021-07-01] MEDS: DOCUSATE SODIUM 100 MG CAPSULE PO SCH (08:20)
[2021-07-01] MEDS: TAMSULOSIN 0.4 MG CAP.ER.24H. PO SCH (08:21)
[2021-07-01] MEDS: CARVEDILOL 3.125 MG TABLET PO SCH ×2 (08:21→17:00)
[2021-07-01] MEDS: ATORVASTATIN CALCIUM 10 MG TABLET. PO SCH (08:21)
[2021-07-01] MEDS: GABAPENTIN 300 MG CAPSULE. PO SCH ×2 (08:21→20:34)
--- NOTE | 2021-07-01 16:45 | NUR ---
SHIFT NOTE Pt resting comfortably and moving around through unit via wheelchair throughout day. Pt sitting at nurses station and trying to flirt with staff. Pt redirected. No other behaviors noted today. CC, RN
[2021-07-01 18:15] VITALS: BP 159/76
[2021-07-01] MEDS: PHENYTOIN SODIUM EXTENDED 100 MG CAPSULE PO SCH (20:34)
[2021-07-01] MEDS: MIRTAZAPINE 7.5 MG TABLET. PO SCH (20:34)
[2021-07-01] MEDS: DULoxetine HCL 30 MG CAPSULE.DR PO SCH (20:34)
[2021-07-01] MEDS: traZODone 50 MG TABLET. PO PRN (20:34)
[2021-07-01] MEDS: DULoxetine HCL 20 MG CAPSULE.DR PO SCH (20:34)
--- NOTE | 2021-07-02 00:24 | PN ---
DATE: 07/01/2021 SUBJECTIVE: The patient is sitting in his wheelchair, wheeling himself around, refusing to go back to his room, wanting to get his car and go back home, very noncompliant, refusing some of his meals and medication; however, he continued to be asymptomatic. When I examined him this afternoon, he looked well and was clearly in no apparent distress, slightly pale, but no jaundice, cyanosis or thyromegaly. No jugular venous distention. No limb edema. PHYSICAL EXAMINATION: VITAL SIGNS: His heart rate was 61, blood pressure is 137/62, temperature 97.9, respiratory rate was 18 and oxygen saturation was 95%. HEAD, EYES, EARS, NOSE AND THROAT: Normocephalic, atraumatic. NECK: Supple. HEART: Showed normal first and second heart sounds, no gallop, rub or murmur. CHEST: Clear to auscultation. No crepitation or rhonchi. ABDOMEN: Distended, soft, nontender. NEUROLOGIC: He was grossly intact. He is mostly bedbound, wheelchair bound. ASSESSMENT: 1. Asymptomatic COVID-19 infection. 2. Chronic obstructive pulmonary disease. 3. Seizure disorder. 4. Type 2 diabetes mellitus. 5. Hyperlipidemia. 6. Benign prostatic hypertrophy. PLAN: Again, to continue with all psychotropic medication. Continue with bronchodilator. Continue to monitor blood sugar. MURRAY DR: Eduardo TID: [id number]
[2021-07-02 06:10] VITALS: BP 156/74
[2021-07-02] MEDS: TAMSULOSIN 0.4 MG CAP.ER.24H. PO SCH (07:21)
[2021-07-02] MEDS: metFORMIN XR 500 MG TAB.ER.24H PO SCH (07:22)
[2021-07-02] MEDS: ATORVASTATIN CALCIUM 10 MG TABLET. PO SCH (07:22)
[2021-07-02] MEDS: CARVEDILOL 3.125 MG TABLET PO SCH ×2 (07:22→16:45)
[2021-07-02] MEDS: ASPIRIN ENTERIC COATED 81 MG TABLET.DR. PO SCH (07:22)
[2021-07-02] MEDS: GABAPENTIN 300 MG CAPSULE. PO SCH ×2 (07:22→19:07)
[2021-07-02] MEDS: CYANOCOBALAMIN (VITAMIN B-12) 1,000 MCG TABLET. PO SCH (07:22)
[2021-07-02] MEDS: DOCUSATE SODIUM 100 MG CAPSULE PO SCH (07:22)
[2021-07-02] MEDS: IPRATROPIUM/ALBUTEROL 20/100mcg/INH INHALER. INH SCH ×4 (07:23→19:09)
[2021-07-02] MEDS: POLYETHYLENE GLYCOL 3350 17 GM PACKET. PO PRN (10:41)
[2021-07-02 18:11] VITALS: BP 149/65
[2021-07-02] MEDS: DULoxetine HCL 20 MG CAPSULE.DR PO SCH (19:07)
[2021-07-02] MEDS: PHENYTOIN SODIUM EXTENDED 100 MG CAPSULE PO SCH (19:07)
[2021-07-02] MEDS: MIRTAZAPINE 7.5 MG TABLET. PO SCH (19:07)
[2021-07-02] MEDS: DULoxetine HCL 30 MG CAPSULE.DR PO SCH (19:08)
[2021-07-02] MEDS: traZODone 50 MG TABLET. PO PRN (19:08)
--- NOTE | 2021-07-02 23:02 | PN ---
DATE: 07/02/2021 ATTENDING PHYSICIAN: Sanjay Niño MD SUBJECTIVE: No new complaints. He wants to go home. He is ambulating. He is not having any respiratory distress. OBJECTIVE FINDINGS: VITAL SIGNS: Blood pressure this morning is 156/74. He is afebrile with a temperature of 97.8 degrees Fahrenheit, oxygen saturation are 96% on room air, pulse is 76 and regular. HEENT: Head is without trauma. Pupils are reactive. Sclerae nonicteric. Oropharynx clear. NECK: Supple, no bruits. LUNGS: Fairly good breath sounds. Minimal rhonchi compared with the previous auscultation. He sounds pretty good. CARDIOVASCULAR: Showed regular heart tones. No gallop. ABDOMEN: Soft. EXTREMITIES: Without edema. NEUROLOGIC: Pleasantly confused. ASSESSMENT: 1. A 81-year-old gentleman with symptomatic COVID-19 infection. 2. Chronic obstructive pulmonary disease, stable. 2. Idiopathic seizure disorder. 3. Type 2 diabetes. 4. Hyperlipidemia. 5. History of benign prostatic hypertrophy. PLAN: 1. Reviewed and continued. 2. Diet as tolerated. 3. He has 3 more days of quarantine here on the medical unit before [facility]. ELIEZER DR: Shaun TID: [id number] CC: NIK LOYA MD
[2021-07-03 06:41] VITALS: BP 157/79
[2021-07-03] MEDS: metFORMIN XR 500 MG TAB.ER.24H PO SCH (07:52)
[2021-07-03] MEDS: CARVEDILOL 3.125 MG TABLET PO SCH ×2 (07:53→16:01)
[2021-07-03] MEDS: GABAPENTIN 300 MG CAPSULE. PO SCH ×2 (07:53→20:59)
[2021-07-03] MEDS: TAMSULOSIN 0.4 MG CAP.ER.24H. PO SCH (07:53)
[2021-07-03] MEDS: ASPIRIN ENTERIC COATED 81 MG TABLET.DR. PO SCH (07:53)
[2021-07-03] MEDS: CYANOCOBALAMIN (VITAMIN B-12) 1,000 MCG TABLET. PO SCH (07:53)
[2021-07-03] MEDS: DOCUSATE SODIUM 100 MG CAPSULE PO SCH (07:53)
[2021-07-03] MEDS: ATORVASTATIN CALCIUM 10 MG TABLET. PO SCH (07:53)
[2021-07-03] MEDS: IPRATROPIUM/ALBUTEROL 20/100mcg/INH INHALER. INH SCH ×4 (07:54→20:59)
[2021-07-03] MEDS: MAGNESIUM HYDROXIDE 2,400 MG/30 ML ORAL.SUSP. PO PRN (12:45)
--- NOTE | 2021-07-03 17:30 | NUR ---
Shift note PT has been calm fro the majority of the shift with a few outburst toward staff PRN given. Pt requested to call family member and seemed to be calmer and cooperative after phone call.
[2021-07-03 18:16] VITALS: BP 139/64
[2021-07-03] MEDS: DULoxetine HCL 20 MG CAPSULE.DR PO SCH (20:59)
[2021-07-03] MEDS: MIRTAZAPINE 7.5 MG TABLET. PO SCH (20:59)
[2021-07-03] MEDS: DULoxetine HCL 30 MG CAPSULE.DR PO SCH (21:00)
[2021-07-03] MEDS: PHENYTOIN SODIUM EXTENDED 100 MG CAPSULE PO SCH (21:00)
--- NOTE | 2021-07-04 00:19 | NUR ---
Nursing Note The patient was located in his room for his assessment and medication pass. The patient coughed up a large amount of thick mucous during his interactions with this nurse. The patients lungs sound diminished with some wheezing noted. The patient was compliant with his medication. The patient was alert to name and location. The patient is currently sleeping in her room.
[2021-07-04] MEDS: traZODone 50 MG TABLET. PO PRN (00:45)
--- NOTE | 2021-07-04 02:45 | PN ---
DATE: 07/03/2021 ATTENDING PHYSICIAN: Dr. Sanjay Niño SUBJECTIVE: No new complaints. He is resting comfortably. He denied any dyspnea. OBJECTIVE FINDINGS: VITAL SIGNS: Blood pressure this morning is 157/79, pulse 76 and regular, temperature 97.4 degrees Fahrenheit, and his oxygen saturation 94% on room air. HEENT: Head is without trauma. Pupils are reactive. Sclerae is nonicteric. Oropharynx clear. NECK: Supple, no bruits. LUNGS: Good breath sounds. CARDIOVASCULAR: Regular heart tones. ABDOMEN: Soft. EXTREMITIES: Without edema. NEUROLOGIC: Pleasantly confused, otherwise intact. ASSESSMENT: 1. A 81-year-old gentleman from the [facility], who tested positive for COVID-19 coronavirus. He remains asymptomatic at this time. 2. Chronic obstructive pulmonary disease, that is stable. 3. Idiopathic seizure disorder. 4. Type 2 diabetes mellitus. 5. Hyperlipidemia. 6. Benign prostatic hypertrophy. PLAN: 1. Continue COVID quarantine. 2. Diet as tolerated. 3. Medication review. 4. He will return to the [facility] after 10 days of quarantine on the medical floor. ELIEZER/EMIR/MYAH DR: ELIEZER/shaunna TID: [id number] CC: NIK LOYA MD
[2021-07-04 07:49] VITALS: BP 153/80
[2021-07-04] MEDS: IPRATROPIUM/ALBUTEROL 20/100mcg/INH INHALER. INH SCH ×4 (08:00→21:33)
[2021-07-04] MEDS: MAGNESIUM HYDROXIDE 2,400 MG/30 ML ORAL.SUSP. PO PRN (08:01)
[2021-07-04] MEDS: metFORMIN XR 500 MG TAB.ER.24H PO SCH (08:02)
[2021-07-04] MEDS: ASPIRIN ENTERIC COATED 81 MG TABLET.DR. PO SCH (08:02)
[2021-07-04] MEDS: CYANOCOBALAMIN (VITAMIN B-12) 1,000 MCG TABLET. PO SCH (08:02)
[2021-07-04] MEDS: CARVEDILOL 3.125 MG TABLET PO SCH ×2 (08:02→16:40)
[2021-07-04] MEDS: ATORVASTATIN CALCIUM 10 MG TABLET. PO SCH (08:02)
[2021-07-04] MEDS: DOCUSATE SODIUM 100 MG CAPSULE PO SCH (08:02)
[2021-07-04] MEDS: TAMSULOSIN 0.4 MG CAP.ER.24H. PO SCH (08:02)
[2021-07-04] MEDS: GABAPENTIN 300 MG CAPSULE. PO SCH ×2 (08:02→21:31)
--- NOTE | 2021-07-04 16:32 | NUR ---
SHIFT NOTE Pt resting in room comfortably throughout day. Pt continues to cough up copious of thick green mucous a couple times during shift. Pt to return to [facility] tomorrow. Will continue to monitor. CC, RN
[2021-07-04 17:17] VITALS: BP 150/79
[2021-07-04] MEDS: MIRTAZAPINE 7.5 MG TABLET. PO SCH (21:31)
[2021-07-04] MEDS: DULoxetine HCL 30 MG CAPSULE.DR PO SCH (21:32)
[2021-07-04] MEDS: DULoxetine HCL 20 MG CAPSULE.DR PO SCH (21:33)
[2021-07-04] MEDS: PHENYTOIN SODIUM EXTENDED 100 MG CAPSULE PO SCH (21:35)
--- NOTE | 2021-07-04 23:47 | PN ---
DATE: 07/04/2021 ATTENDING PHYSICIAN: Dr. Niño. SUBJECTIVE: The patient remains pleasantly disoriented. No new complaints. OBJECTIVE FINDINGS: VITAL SIGNS: Blood pressure this morning is 153/80, pulse 77 and regular, temperature 98.2 degrees Fahrenheit, oxygen saturation 95% on room air. HEENT: Head is without trauma. Pupils are reactive. Sclerae nonicteric. Oropharynx, remains clear. NECK: Supple. There are no bruits. LUNGS: Good breath sounds. CARDIOVASCULAR: Regular heart tones. No gallops. ABDOMEN: Soft. EXTREMITIES: Without edema. NEUROLOGIC: Pleasantly confused. SKIN: Warm and dry. ASSESSMENT: 1. A 81-year-old gentleman from the [facility] who tested positive for COVID-19 coronavirus. He remains totally asymptomatic at this time. 2. Chronic obstructive pulmonary disease, stable. 3. Idiopathic seizure disorder. 4. Type 2 diabetes. 5. Hyperlipidemia. 6. History of benign prostatic hypertrophy. PLAN: 1. Continue COVID quarantine. 2. Meds reviewed. 3. Tentative plans for the gentleman to be discharged tomorrow back up to the [facility]. 4. Rest per Psychiatry service. KAREN DR: Shaun TID: [id number] CC: NIK LOYA MD
--- NOTE | 2021-07-05 00:56 | NUR ---
Pt answered orientation questions correctly at beginning of shift. Pt seems to think a staff member from the previous shift is a girlfriend or from his past. Pt stated they "are getting back together. We make about $12,000 a month and haven't seen each other in a long time." Later the pt began speaking to night staff romantically as if we were the /girlfriend. When questioned, pt assures us he knows we are not her and that he "just wants to talk about her" to staff. Will continue to monitor.
[2021-07-05 06:12] VITALS: BP 149/57
--- NOTE | 2021-07-05 06:18 | NUR ---
Pt awoke confused and disoriented and tried to climb out of bed to toilet on his own. He seemed slightly weak earlier so this nurse insisted pt call for help. Bed alarm was set in case he forgot, which he did, multiple times. Alarm caused pt to be agitated and yell and grab at it to turn it off. Pt was up and down most of the night, requesting to urinate. He was very active in bed, moving about different ways instead of staying still and resting. Pt now sleeping soundly. Will continue to monitor.
[2021-07-05] MEDS: metFORMIN XR 500 MG TAB.ER.24H PO SCH (08:02)
[2021-07-05] MEDS: DOCUSATE SODIUM 100 MG CAPSULE PO SCH (08:02)
[2021-07-05] MEDS: GABAPENTIN 300 MG CAPSULE. PO SCH ×2 (08:02→20:08)
[2021-07-05] MEDS: ATORVASTATIN CALCIUM 10 MG TABLET. PO SCH (08:02)
[2021-07-05] MEDS: IPRATROPIUM/ALBUTEROL 20/100mcg/INH INHALER. INH SCH ×4 (08:03→20:09)
[2021-07-05] MEDS: ASPIRIN ENTERIC COATED 81 MG TABLET.DR. PO SCH (08:03)
[2021-07-05] MEDS: TAMSULOSIN 0.4 MG CAP.ER.24H. PO SCH (08:03)
[2021-07-05] MEDS: CARVEDILOL 3.125 MG TABLET PO SCH ×2 (08:03→17:00)
[2021-07-05] MEDS: CYANOCOBALAMIN (VITAMIN B-12) 1,000 MCG TABLET. PO SCH (08:03)
[2021-07-05] MEDS: POLYETHYLENE GLYCOL 3350 17 GM PACKET. PO PRN (08:06)
[2021-07-05] MEDS: MAGNESIUM HYDROXIDE 2,400 MG/30 ML ORAL.SUSP. PO PRN (08:06)
--- NOTE | 2021-07-05 12:03 | NUR ---
Nursing note Pt reported that "he fell and hit his head last night" and that his "head hurt really bad now" pt also stated that "he was scared to drive and didn't want to " pt educated that he did not have to drive. pt assessed and upon assessment this nurse noted no bumps or lesions on the pt head or body and found the pt pupils to be reactive and symmetrical. doctor RALEIGH was notified of behavior changes and the reported fall and the pt head pain. with instructions to monitor pt and no other orders at this time. this nurse will continue to monitor.
[2021-07-05] MEDS: ACETAMINOPHEN 325 MG TABLET PO PRN (12:22)
--- NOTE | 2021-07-05 13:05 | DS ---
DATE OF DISCHARGE: 07/05/2021 ATTENDING PHYSICIAN: Dr. Niño and Dr. Villarreal FINAL DISCHARGE DIAGNOSES: 1. A 81-year-old gentleman from the [facility] with positive COVID-19 exposure. He has been totally asymptomatic. 2. Chronic obstructive pulmonary disease, stable. 3. Idiopathic seizure disorder. 4. Type 2 diabetes mellitus. 5. Hyperlipidemia. 6. Benign prostatic hypertrophy. 7. Major depressive disorder with anxiety. 8. Vascular dementia with delusional behavior. 9. Impulse control disorder. HISTORY AND PHYSICAL: The patient is a 81-year-old gentleman with vascular dementia. He [facility] the [facility] for [facility], we had followed him there. As part of the routine screening, he was swabbed for coronavirus and tested positive. He had no symptoms, no respiratory distress. Temperature was normal. No cough or congestion. He was sent down to the medical unit for a 10-day quarantine. PHYSICAL EXAMINATION: Please see the dictated note. PERTINENT LABORATORY AND X-RAY STUDIES: On admission, his hemoglobin was 11.7 g/dL with a white count of 6400. Chemistry panel, normal BUN and creatinine. Electrolytes, creatinine is 1.2 mg percent. Hemoglobin A1c was 5.7. Toxicology screen unremarkable. Serology positive for coronavirus on 06/25/2021. COURSE IN THE HOSPITAL: The patient was admitted to the medical floor. He had his psychiatric meds continued. He had isolation with COVID quarantine protocol. Diet was advanced and he was very reasonable and cooperative. By the 10th hospital day, his vital signs were stable. Blood pressure was 149/57 mmHg. He remained afebrile throughout the entire course and his oxygen saturations were 93% on room air. Therefore, later this evening, he will be discharged back up to the [facility]. His meds remain unchanged. He will continue his aspirin daily, Coreg 3.125 mg b.i.d., vitamin B12, docusate, Cymbalta, Neurontin, guaifenesin, ipratropium, methyl salicylate, metformin, Remeron, Dilantin 500 mg p.o. daily, pravastatin, Flomax, and trazodone doses unchanged. His prognosis is fair. He was discharged then from our hospital back to the [facility] in stable condition with explicit drug and followup care. Total discharge time spent 38 minutes. ELIEZER/ERVIN MONK: ELIEZER/shaunna TID: [id number]
--- NOTE | 2021-07-05 14:47 | NUR ---
Call placed to DPOA/Nephew (Maikel Jimenes, ) in an effort to obtain phone consents for admission to [facility]. He did not answer the phone and the message box is full and a voice message cannot be left for him. Per [facility]wok, pt has 2 other designated DPOA alternates should primary (Maikel) not be reached. The phone numbers for these alternates is not on intake paperwork and cannot be contacted. It Applications Analyst notified.
[2021-07-05 17:35] VITALS: BP 139/62
[2021-07-05] MEDS: DULoxetine HCL 30 MG CAPSULE.DR PO SCH (20:08)
[2021-07-05] MEDS: DULoxetine HCL 20 MG CAPSULE.DR PO SCH (20:08)
[2021-07-05] MEDS: PHENYTOIN SODIUM EXTENDED 100 MG CAPSULE PO SCH (20:08)
[2021-07-05] MEDS: MIRTAZAPINE 7.5 MG TABLET. PO SCH (20:09)
[2021-07-05] MEDS: traZODone 50 MG TABLET. PO PRN (23:51)
--- NOTE | 2021-07-06 00:14 | NUR ---
Discharge Note: MAUDE TSANG Discharge instructions and discharge home medications reviewed with Other facility and a copy given. All questions have been answered and understanding verbalized. The following instructions and handouts were given: Med rec, hand-off report, belongings list, belongings, inhaler with MDI. Discontinued lines and drains: No lines/drains present on d/c. Patient discharged to [facility] with all belongings accompanied by this RN and DEMETRIUS Arambula.
[2021-07-06] MEDS ORDERED: ATOR10TA60 PO (00:59)
[2021-07-06] MEDS ORDERED: POLY2500 PO (00:59)
[2021-07-06] MEDS ORDERED: PRAV40TA2 PO (01:30)
== END 2021-07-06 00:03 | DRG 177 ==
LOC: LND 14:40
PROVIDERS: ADMIT Internal Medicine; ATTEND Internal Medicine
DX: U07.1 COVID-19 (principal); J12.82 Pneumonia due to coronavirus disease 2019; F33.3 Major depressive disorder, recurrent, severe with psychotic symptoms; J44.0 Chronic obstructive pulmonary disease with (acute) lower respiratory infection; E11.22 Type 2 diabetes mellitus with diabetic chronic kidney disease; E78.5 Hyperlipidemia, unspecified; F01.50 Vascular dementia, unspecified severity, without behavioral disturbance, psychotic disturbance, mood disturbance, and anxiety; F02.80 Dementia in other diseases classified elsewhere, unspecified severity, without behavioral disturbance, psychotic disturbance, mood disturbance, and anxiety; F41.9 Anxiety disorder, unspecified; F63.9 Impulse disorder, unspecified; G30.9 Alzheimer's disease, unspecified; G40.909 Epilepsy, unspecified, not intractable, without status epilepticus; I12.9 Hypertensive chronic kidney disease with stage 1 through stage 4 chronic kidney disease, or unspecified chronic kidney disease; N18.9 Chronic kidney disease, unspecified; N40.0 Benign prostatic hyperplasia without lower urinary tract symptoms; Z79.82 Long term (current) use of aspirin; Z79.899 Other long term (current) drug therapy; Z86.73 Personal history of transient ischemic attack (TIA), and cerebral infarction without residual deficits
CPT/HCPCS: 36415; 80053; 82947; 85025; 85379; 86140; J1630

== ENCOUNTER 2021-07-06 00:16 | Inpatient (IN) | payer MEDICARE ==
[~2021-07-06] VITALS: Ht 185.4 cm; Wt 110.5 kg
[~2021-07-06 00:16] MED LIST changes: -LISI-517 PO; +LISI5TAB15 PO
[2021-07-06] MEDS ORDERED: ACETAMINOPHEN 325 MG TABLET PO PRN (00:30)
[2021-07-06 00:31] VITALS: BP 159/83
[2021-07-06] MEDS ORDERED: POLY2500 PO (00:59)
[2021-07-06] MEDS ORDERED: ATOR10TA60 PO (00:59)
[2021-07-06] MEDS ORDERED: PRAV40TA2 PO (01:30)
--- NOTE | 2021-07-06 04:37 | NUR ---
Admission Note with Justification for Admission to [facility] Patient admitted to [facility] for protective oversight for emergency stabilization of acute psychiatric crisis. Pt admitted from: SNU Mode of arrival: Wheel chair Accompanied By: [facility] Staff Precipitating behaviors that initiated intake and admission: Re admit from SNU Description of failure of out patient attempts at stabilization in previous setting list behavior and medication trials: Behaviors and assessment findings upon admission: Patient has been calm and cooperative. Patient was drowsy upon admission but was compliant during admit assessment. Patient complained of pain in upper abdomen/lower chest. Head of bed was raised and patient reported that pain was lessened. The patient fell asleep during his assessment and remains sleeping at this time. Plan: Admit for protective oversight for adjustment and stabilization of medications, behaviors and mood. Intense treatment regimen including groups, medication adjustments, therapy, consistent regimen for ADL's, self care, and sleep hygiene. Daily monitoring by Inpatient staff, Psychiatry, and Medical Physician.
[2021-07-06 06:30] VITALS: BP 163/72
[2021-07-06 07:16] LABS: BASO # 0.1 x10^3/uL (0.0-0.2); BASO % 1 % (0-3); EOS # 0.9 x10^3/uL (0.0-0.7); EOS % 14 % (0-3); HEMATOCRIT 34.7 % (39.0-53.0); HEMOGLOBIN 11.6 g/dL (13.0-17.5); LYMPH # 2.5 x10^3/uL (1.0-4.8); LYMPH % 40 % (24-48); MEAN CORPUSCULAR HEMOGLOBIN 34 pg (25-35); MEAN CORPUSCULAR HGB CONC 34 g/dL (31-37); MEAN CORPUSCULAR VOLUME 102 fL (79-100); MONO # 0.5 x10^3/uL (0.0-1.1); MONO % 9 % (0-9); NEUT # 2.4 x10^3uL (1.8-7.7); NEUT % 37 % (31-73); PLATELET COUNT 109 x10^3/uL (140-400); RED BLOOD COUNT 3.41 x10^6/uL (4.30-5.70); RED CELL DISTRIBUTION WIDTH 14.2 % (11.5-14.5); WHITE BLOOD COUNT 6.4 x10^3/uL (4.0-11.0)
--- NOTE | 2021-07-06 09:15 | NUR ---
Pt has been repetitive and argumentative with staff this morning, particularly around the topic of food. He requested an Ensure with breakfast multiple times, and each time staff would encourage/instruct him to complete his food prior to receiving one. Each time pt would repeat request and it was told to him that the explanation was already provided, he would get angry and say "You never told me anything" which then prompted a repeat of the same instruction that was given to him previously. This same repetitive scenario and claiming to have never received an answer was also centered around his breakfast tray not having a hard boiled egg (only given to those on a finger food diet). After an egg was provided to him he ate half, and then became argumentative that "you guys only gave me half an egg!" At this time it is unknown if pt's current behaviors are a true memory defect, or a behavior and personality trait. Pt remains in a w/c and has been wheeling himself around the unit ind. No c/o pain or discomfort at this time. Absent of SI/HI/VH/AH/delusions. At this time only psychiatric medications have been continued from SNU and all other medications are pending review and confirmation from Dr Villarreal during rounds. D/t this, no medications have been administered by this nurse. Plan of care continues, will pass to next shift.
[2021-07-06 09:56] LABS: ALBUMIN 3.3 g/dL (3.4-5.0); ALBUMIN/GLOBULIN RATIO 0.9 (1.0-1.7); TOTAL PROTEIN 6.9 g/dL (6.4-8.2)
[2021-07-06 09:57] LABS: CALCIUM 8.7 mg/dL (8.5-10.1); CREATININE 1.4 mg/dL (0.7-1.3); GFR 48.9; POTASSIUM 4.8 mmol/L (3.5-5.1); TOTAL BILIRUBIN 0.3 mg/dL (0.2-1.0)
[2021-07-06] MEDS ORDERED: METHYL SALICYLATE/MENTHOL TOPICAL OINTMENT 57GM TUBE. TP PRN (10:30)
[2021-07-06] MEDS ORDERED: POLYETHYLENE GLYCOL 3350 17 GM PACKET. PO PRN (10:45)
--- NOTE | 2021-07-06 15:01 | NUR ---
Pt discovered on toilet, dislodging his own BM from his rectal cavity. Blood was observed in the toilet and on his fingers. Rectal area was cleansed and observed; it appears pt may have hemorrhoids. Dr Phil devries and the following order was given: apply Preparation H to rectal area PRN.
[2021-07-06] MEDS ORDERED: PHENYLEPH/MINERAL OIL/PETROLAT RECTAL OINTMENT TUBE. RC PRN (15:15)
[2021-07-06 16:21] VITALS: BP 158/83
[2021-07-06] MEDS: CARVEDILOL 3.125 MG TABLET PO SCH (17:00)
[2021-07-06] MEDS: ATORVASTATIN CALCIUM 10 MG TABLET. PO SCH (20:08)
[2021-07-06] MEDS: DULoxetine HCL 20 MG CAPSULE.DR PO SCH (20:08)
[2021-07-06] MEDS: GABAPENTIN 300 MG CAPSULE. PO SCH (20:08)
[2021-07-06] MEDS: MIRTAZAPINE 7.5 MG TABLET. PO SCH (20:08)
[2021-07-06] MEDS: PHENYTOIN SODIUM EXTENDED 100 MG CAPSULE PO SCH (20:08)
[2021-07-06] MEDS: DULoxetine HCL 30 MG CAPSULE.DR PO SCH (20:09)
--- NOTE | 2021-07-06 21:44 | PDOC ---
Exam Note: Leo Note: Please also refer to the separate dictated note~for this date of service dictated separately.~Patient seen individually. Discussed the patient with Nursing staff reviewed the chart.~Reviewed interim history and current functioning. Reviewed vital signs,~Labs/ Radiology~and current medications noted below. Continue current treatment with the changes noted in the dictated addendum note Assessment: Vital Signs/I&O: Vital Signs Date Time Temp Pulse Resp B/P (MAP) Pulse Ox O2 Delivery O2 Flow Rate FiO2 07/06/21 17:00 68 158/83 07/06/21 16:21 97.6 18 96 07/06/21 00:31 Room Air Labs: Laboratory Tests Test 07/06/21 06:49 07/06/21 07:30 White Blood Count 6.4 x10^3/uL (4.0-11.0) Red Blood Count 3.41 x10^6/uL (4.30-5.70) L Hemoglobin 11.6 g/dL (13.0-17.5) L Hematocrit 34.7 % (39.0-53.0) L Mean Corpuscular Volume 102 fL (79-100) H Mean Corpuscular Hemoglobin 34 pg (25-35) Mean Corpuscular Hemoglobin Concent 34 g/dL (31-37) Red Cell Distribution Width 14.2 % (11.5-14.5) Platelet Count 109 x10^3/uL (140-400) L Neutrophils (%) (Auto) 37 % (31-73) Lymphocytes (%) (Auto) 40 % (24-48) Monocytes (%) (Auto) 9 % (0-9) Eosinophils (%) (Auto) 14 % (0-3) H Basophils (%) (Auto) 1 % (0-3) Neutrophils # (Auto) 2.4 x10^3uL (1.8-7.7) Lymphocytes # (Auto) 2.5 x10^3/uL (1.0-4.8) Monocytes # (Auto) 0.5 x10^3/uL (0.0-1.1) Eosinophils # (Auto) 0.9 x10^3/uL (0.0-0.7) H Basophils # (Auto) 0.1 x10^3/uL (0.0-0.2) Sodium Level 140 mmol/L (136-145) Potassium Level 4.8 mmol/L (3.5-5.1) Chloride Level 105 mmol/L (98-107) Carbon Dioxide Level 30 mmol/L (21-32) Anion Gap 5 (6-14) L Blood Urea Nitrogen 35 mg/dL (8-26) H Creatinine 1.4 mg/dL (0.7-1.3) H Estimated GFR (Cockcroft-Gault) 48.9 BUN/Creatinine Ratio 25 (6-20) H Glucose Level 111 mg/dL (70-99) H Calcium Level 8.7 mg/dL (8.5-10.1) Total Bilirubin 0.3 mg/dL (0.2-1.0) Aspartate Amino Transferase (AST) 20 U/L (15-37) Alanine Aminotransferase (ALT) 18 U/L (16-63) Alkaline Phosphatase 122 U/L (46-116) H Total Protein 6.9 g/dL (6.4-8.2) Albumin 3.3 g/dL (3.4-5.0) L Albumin/Globulin Ratio 0.9 (1.0-1.7) L Glucose (Fingerstick) 118 mg/dL (70-99) H Current Medications: Meds: Current Medications Medications (Trade) Dose Ordered Sig/Aparna Route PRN Reason Start Time Stop Time Status Last Admin Dose Admin Duloxetine HCl (Cymbalta) 20 mg HS PO 07/06/21 21:00 07/06/21 20:08 Duloxetine HCl (Cymbalta) 30 mg HS PO 07/06/21 21:00 07/06/21 20:09 Mirtazapine (Remeron) 7.5 mg HS PO 07/06/21 21:00 07/06/21 20:08 Atorvastatin Calcium (Lipitor) 10 mg QHS PO 07/06/21 21:00 07/06/21 20:08 Carvedilol (Coreg) 3.125 mg BIDWMEALS PO 07/06/21 17:00 07/06/21 17:00 Gabapentin (Neurontin) 300 mg BID PO 07/06/21 21:00 07/06/21 20:08 Phenytoin Sodium (Dilantin) 500 mg HS PO 07/06/21 21:00 07/06/21 20:08 I have reviewed the current psychotropics carefully including drug interactions. Risk benefit ratio favors no change other than as noted in my dictated progress note. Diagnosis: Problems: (1) Major depressive disorder (2) Anxiety disorder, unspecified (3) Dementia, vascular, with depression (4) Dementia, vascular, with delusions (5) Major neurocognitive disorder (6) Impulse control disorder, unspecified NIK LOYA MD Jul 06, 2021 21:44
--- NOTE | 2021-07-06 22:47 | HP ---
ADMIT DATE: 07/06/2021 PSYCHIATRIC ADMISSION HISTORY/EVALUATION DATE OF SERVICE: 07/06/2021 This note covers elements not covered in my initial note of 07/06. IDENTIFYING DATA: The patient is a 81-year-old male who returns back to us from the medical/surgical floor where he was transferred from our unit while being psychiatrically stabilized and after he was found to be COVID-19 positive. He was in isolation there, gradually medically stabilized and was aggressive towards the staff of the snf unit, quite disruptive, unable to be redirected requiring IM Haldol x1. He was talking to and about female staff as if they were his girlfriend. At previous long-term care facility, he had been given a 30-day eviction notice due to being sexually inappropriate. He had failed psychiatric interventions on the medical/surgical floor. Behavior is deemed dangerous, unmanageable. He is quite confused, referred back for inpatient psychiatric stabilization. CHIEF COMPLAINT: "I am okay. I came today." HISTORY OF PRESENT ILLNESS: The patient has a history of dementia, Alzheimer's, vascular type. He has been increasingly confused, anxious, restless, sleep and appetite changes, inappropriate sexual behaviors, paranoid as noted above. No active suicidal or homicidal ideation. PAST PSYCHIATRIC HISTORY: As above. MEDICAL HISTORY: COPD, status post COVID-19 positive status, diabetes mellitus, hypertension, obesity, seizure disorder, status post CVA, BPH, chronic kidney disease, repeated falls, macrocytic anemia. Accu-Cheks daily. ALLERGIES: Negative. CODE STATUS: FULL CODE. DIET: Regular, diabetic. Takes medications whole. Ambulates in wheelchair. UA on 06/09 was negative. CURRENT PSYCHOTROPICS: He is on Dilantin 500 mg at bedtime with a therapeutic level for his seizures, Remeron 7.5 mg at bedtime, gabapentin 300 mg b.i.d., Cymbalta 50 mg at bedtime, trazodone 50 mg at bedtime p.r.n. insomnia, Zyprexa p.r.n. FAMILY HISTORY: Noncontributory. SOCIAL HISTORY: No history of alcohol, drug abuse, physical, sexual or elder abuse. He is not known to be a perpetrator. REACTION TO HOSPITALIZATION: The patient accepting of it. I have discussed the patient with [facility] nursing staff. The patient slept 3-3/4 hours previous night. He has short-term memory deficits. He is quite obsessed about wanting Ensure even before he starts his meals, repetitive and is questioning. REVIEW OF SYSTEMS: Ambulation impaired. No CV, , pulmonary, eye, ENT system symptoms on review. MENTAL STATUS EXAMINATION: Oriented to himself. Insight, judgment, recent and remote memory, attention, concentration, fund of knowledge poor consistent with his diagnosis. IMPRESSION: Major neurocognitive disorder, Alzheimer, vascular with delusion, depression, behavioral disturbance; anxiety disorder, unspecified; impulse control disorder, unspecified. Rest as above. PLAN: Admit to ger[facility]iatry unit [facility]. I will see the patient daily individually from a psychiatric standpoint, medical followup with Dr. Villarreal/Dr. Niño. Request Dr. Newman to follow him from a neurological standpoint for his seizure disorder, but continue Dilantin, level is therapeutic. I will see the patient daily individually. Observe baseline, then make further adjustments in his psychotropics. ESTIMATED LENGTH OF STAY: 10-12 days. DISPOSITION PLANS: Transition to a fpc when stable. RADAMES DR: Melissa TID: [id number]
--- NOTE | 2021-07-06 23:08 | NUR ---
Pt calm and cooperative this evening. Compliant with whole medications. Pt states that he is going back to [place] tomorrow and became tearful, stating he was going to miss this place.
[2021-07-07 06:04] VITALS: BP 166/74
[2021-07-07 06:13] LABS: PHENY 26.1 mcg/mL (10.0-20.0)
[2021-07-07] MEDS: TAMSULOSIN 0.4 MG CAP.ER.24H. PO SCH (08:21)
[2021-07-07] MEDS: CARVEDILOL 3.125 MG TABLET PO SCH ×2 (08:21→17:13)
[2021-07-07] MEDS: metFORMIN XR 500 MG TAB.ER.24H PO SCH (08:21)
[2021-07-07] MEDS: GABAPENTIN 300 MG CAPSULE. PO SCH ×2 (08:21→20:05)
[2021-07-07] MEDS: ASPIRIN ENTERIC COATED 81 MG TABLET.DR. PO SCH (08:21)
[2021-07-07] MEDS ORDERED: NON FORMULARY ITEM (Pravastatin Sodium 40 MG) PO SCH (09:00)
--- NOTE | 2021-07-07 12:45 | NUR ---
WEEKLY ACTIVITY THERAPY NOTE Date of Admission: 07/06/21 Date of AT Assessment: TBD Precipitating behaviors that initiated intake and admission:Patient was reported to believe that his money was being stolen, his dog was being murdered, trying to leave the facility, disoriented, being tearful and crying frequently, and having sexually inappropriate conversations with other residents Goal aimed: TBD Initial Goal: TBD Weekly progress towards goal: goal evaluation begins next week Group participation level: none Weekly highlights: arrived on [facility] Behaviors observed: new patient Plan: meet/assess pt Beneficial adaptations:
--- NOTE | 2021-07-07 14:03 | NUR ---
Pt calm, cooperative, and medication compliant. Pt has been intrusive with peers throughout the day. Pt has been hyperfocused on receiving his Dilantin. Pt has been continually reminded that he gets his Dilantin at bedtime, even when he is reminded of the time he gets his medication, he still argues and states that is not right. Pt did participate in groups today and listened to music outside and enjoyed the weather.
--- NOTE | 2021-07-07 16:01 | NUR ---
ARI contacted pt nephew/DPOA, Maikel, to give him an update on how pt is doing. Harjeet reports that he saw missed calls on his personal phone but does not have voicemail set up. He wants to make sure SW has his work phone in case of emergencies. That number is . ARI and Harjeet discussed placement to inform him that SW almost had placement prior to pt testing positive. ARI will try that placement again; Maikel asked that SW also try the places closer to pt sister in law even though they said no the first go around (e.g. [place], [facility], [place]). ARI will continue to keep Maikel updated on pt progress and placement.
[2021-07-07 16:11] VITALS: BP 162/78
[2021-07-07] MEDS: DULoxetine HCL 20 MG CAPSULE.DR PO SCH (20:04)
[2021-07-07] MEDS: DULoxetine HCL 30 MG CAPSULE.DR PO SCH (20:04)
[2021-07-07] MEDS: PHENYTOIN SODIUM EXTENDED 100 MG CAPSULE PO SCH (20:05)
[2021-07-07] MEDS: MIRTAZAPINE 7.5 MG TABLET. PO SCH (20:05)
[2021-07-07] MEDS: ATORVASTATIN CALCIUM 10 MG TABLET. PO SCH (20:05)
--- NOTE | 2021-07-07 21:59 | PDOC ---
Exam Note: Leo Note: Please also refer to the separate dictated note~for this date of service dictated separately.~Patient seen individually. Discussed the patient with Nursing staff reviewed the chart.~Reviewed interim history and current functioning. Reviewed vital signs,~Labs/ Radiology~and current medications noted below. Continue current treatment with the changes noted in the dictated addendum note Assessment: Vital Signs/I&O: Vital Signs Date Time Temp Pulse Resp B/P (MAP) Pulse Ox O2 Delivery O2 Flow Rate FiO2 07/07/21 17:13 83 162/78 07/07/21 16:11 98.6 16 91 07/06/21 00:31 Room Air I & O 07/06/21 07/06/21 07/07/21 15:00 23:00 07:00 Intake Total 480 ml 120 ml Balance 480 ml 120 ml Labs: Laboratory Tests Test 07/07/21 05:50 07/07/21 07:44 Phenytoin (Dilantin) Level 26.1 mcg/mL (10.0-20.0) H Phenytoin Last Dose Date 07/06/21 Phenytoin Last Dose Time 2100 Glucose (Fingerstick) 118 mg/dL (70-99) H Current Medications: Meds: Current Medications Medications (Trade) Dose Ordered Sig/Aparna Route PRN Reason Start Time Stop Time Status Last Admin Dose Admin Aspirin (Aspirin Enteric Coated) 81 mg DAILY PO 07/07/21 09:00 07/07/21 08:21 Metformin HCl (Glucophage Xr) 500 mg DAILYWBKFT PO 07/07/21 08:00 07/07/21 08:21 Tamsulosin HCl (Flomax) 0.4 mg DAILY PO 07/07/21 09:00 07/07/21 08:21 I have reviewed the current psychotropics carefully including drug interactions. Risk benefit ratio favors no change other than as noted in my dictated progress note. Diagnosis: Problems: (1) Major depressive disorder (2) Impulse control disorder, unspecified (3) Anxiety disorder, unspecified (4) Dementia, vascular, with depression (5) Dementia, vascular, with delusions (6) Major neurocognitive disorder NIK LOYA MD Jul 07, 2021 21:59
--- NOTE | 2021-07-07 22:28 | NUR ---
Pt has been irritable this evening. Very resistive to shower, yelling and argumentative throughout the shower. Pt repetitive and very fixated on his Dilantin medication and dose. Compliant with whole medications. Continues to act helpless.
[2021-07-08 06:08] VITALS: BP 171/77
[2021-07-08] MEDS: metFORMIN XR 500 MG TAB.ER.24H PO SCH (09:46)
[2021-07-08] MEDS: CARVEDILOL 3.125 MG TABLET PO SCH ×2 (09:46→17:22)
[2021-07-08] MEDS: TAMSULOSIN 0.4 MG CAP.ER.24H. PO SCH (09:47)
[2021-07-08] MEDS: GABAPENTIN 300 MG CAPSULE. PO SCH ×2 (09:47→20:56)
[2021-07-08] MEDS: ASPIRIN ENTERIC COATED 81 MG TABLET.DR. PO SCH (09:47)
--- NOTE | 2021-07-08 10:23 | NUR ---
Pt has remained in bed all morning and did not come out to breakfast. He is compliant with morning medications taken whole. A&O to name, , and location. Absent of SI/HI/VH/AH at this time, he denies pain when asked. Inspiratory and expiratory wheezes noted upon auscultation. No SOB observed, breathing even equal and unlabored. Cap refill < 2 seconds, skin dry, skin color appropriate for ethnicity. Pt reports no difficulties breathing aside from occasional non-productive coughing. Pt resting in bed with HOB slightly elevated on RA. During pt's previous [facility] stay he was ordered a Combivent inhaler QID. Will place on rounds list with Dr Villarreal for further assessment and consideration for possibly restarting the order. Plan of care continues, will pass to next shift. Addendum: 07/08/21 at 1156 by CÉSAR ADRIAN RN New order from Dr Villarreal: Restart Combivent order.
--- NOTE | 2021-07-08 11:54 | NUR ---
Pt was discovered by staff on the toilet. His bed and the floor by the bed was covered in urine, and the brief he was wearing was completely dry. It appears as if pt urinated on the bed/floor from outside his briefs, perhaps intentionally.
[2021-07-08] MEDS: IPRATROPIUM/ALBUTEROL 20/100mcg/INH INHALER. INH SCH ×3 (13:00→20:51)
--- NOTE | 2021-07-08 13:05 | NUR ---
ACTIVITY THERAPY ASSESSMENT completed based on notes, observation and interview. Pt was agreeable to answer questions for AT and remained pleasant. Pt said that he was aware of his admission downstairs and returning to the unit but continued to speak about working here. Pt politely declined any self guided leisure materials. Pt enjoys exercising and music. Per notes pt has been mostly calm and cooperative with staff. There are a couple occurrences of pt being repetitive and argumentative. Initial goal aimed to increase socialization and engagement. Pt will participate in at least three individual or group Activity Therapy sessions per week. Addendum: 07/21/21 at 1308 by JOSEPH MATA ACT Goal changed 07/21:Pt will participate in at least five individual or group Activity Therapy sessions per week.
[2021-07-08 15:47] VITALS: BP 135/65
[2021-07-08] MEDS ORDERED: MAGNESIUM HYDROXIDE 2,400 MG/30 ML ORAL.SUSP. PO PRN (19:30)
[2021-07-08] MEDS: DULoxetine HCL 30 MG CAPSULE.DR PO SCH (20:50)
[2021-07-08] MEDS: MIRTAZAPINE 7.5 MG TABLET. PO SCH (20:50)
[2021-07-08] MEDS: ATORVASTATIN CALCIUM 10 MG TABLET. PO SCH (20:50)
[2021-07-08] MEDS: DULoxetine HCL 20 MG CAPSULE.DR PO SCH (20:50)
[2021-07-08] MEDS: PHENYTOIN SODIUM EXTENDED 100 MG CAPSULE PO SCH (20:51)
[2021-07-08] MEDS: traZODone 50 MG TABLET. PO PRN (20:51)
--- NOTE | 2021-07-08 21:52 | PDOC ---
Exam Note: Leo Note: Please also refer to the separate dictated note~for this date of service dictated separately.~Patient seen individually. Discussed the patient with Nursing staff reviewed the chart.~Reviewed interim history and current functioning. Reviewed vital signs,~Labs/ Radiology~and current medications noted below. Continue current treatment with the changes noted in the dictated addendum note Assessment: Vital Signs/I&O: Vital Signs Date Time Temp Pulse Resp B/P (MAP) Pulse Ox O2 Delivery O2 Flow Rate FiO2 07/08/21 17:22 74 135/65 07/08/21 15:47 97.8 20 96 07/06/21 00:31 Room Air I & O 07/07/21 07/07/21 07/08/21 15:00 23:00 07:00 Intake Total 840 ml 600 ml Balance 840 ml 600 ml Labs: Laboratory Tests Test 07/08/21 07:46 Glucose (Fingerstick) 115 mg/dL (70-99) H Current Medications: Meds: Current Medications Medications (Trade) Dose Ordered Sig/Aparna Route PRN Reason Start Time Stop Time Status Last Admin Dose Admin Phenytoin Sodium (Dilantin) 400 mg HS PO 07/08/21 21:00 07/08/21 20:51 Albuterol/ Ipratropium (Combivent Respimat 20-100 Mcg) 1 puff QID INH 07/08/21 13:00 07/08/21 20:51 Guaifenesin (Mucinex Er) 600 mg BID PO 07/08/21 21:00 07/08/21 20:51 I have reviewed the current psychotropics carefully including drug interactions. Risk benefit ratio favors no change other than as noted in my dictated progress note. 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
--- NOTE | 2021-07-08 23:37 | NUR ---
Nursing Note Pt up in [facility], comes to nursing station banging on the door, telling staff that all the women on the unit are drunk. Comes to the desk later and demands that he be let into the "Bar". I asked him what he meant by the "bar". He points at the door to the dayroom, and states "Get off your ass and pour me a beer, bar wench, I want a large budweiser draft NOW!" Informed him we do not have budweiser this is not a bar, we are in the hospital. Then he stops each passerby including peers to ask for his medications. Pt instructed that I would be administering meds to him next. When I arrived back at his room, he was on the toilet so I held his meds until he was finished. Pt was not happy, but I told him I would rather medicate him outside of the bathroom. He took a very long time to do his business in the bathroom, and then took meds after.
[2021-07-09 06:13] VITALS: BP 160/74
--- NOTE | 2021-07-09 06:18 | PDOC ---
Exam Note: Leo Note: This note is a late entry for 07/07/2021 covers elements not covered in my initial note. Subjective: The patient was seen individually in the evening of 07/07/2021 with Tenisha KOWALSKI, discussed and reviewed the chart. The patient slept 7-1/2 hours previous night. He has been extremely anxious, labile, irritable per nursing staff. Dilantin (phenytoin) level is 26.1 on Dilantin 500 mg a day and we will reduce to 400 mg a day. Check labs level on . Review of Systems: Ambulation impaired in wheelchair. No CV, , pulmonary, eye, ENT system symptoms on review. Reliability poor. He is quite upset with the staff members trying to express his concerns. Mental Status Exam: The patient is oriented to himself and situation. Speech coherent. Abstraction fair. Computation impaired. Language function intact. Mood and affect remains labile. No suicidal or homicidal ideation. Laboratory Data: Reviewed. Impression: Major neurocognitive disorder, Alzheimer, vascular with delusion, depression, behavioral disturbance. Anxiety disorder unspecified. Impulse control disorder unspecified. Plan: Adjust the Dilantin as above. Maintain rest of the psychotropics. Assessment: Vital Signs/I&O: Vital Signs Date Time Temp Pulse Resp B/P (MAP) Pulse Ox O2 Delivery O2 Flow Rate FiO2 07/09/21 06:13 98.2 75 20 160/74 (102) 93 07/06/21 00:31 Room Air I & O 07/08/21 07/08/21 07/09/21 15:00 23:00 07:00 Intake Total 240 ml 600 ml Balance 240 ml 600 ml Labs: Laboratory Tests Test 07/08/21 07:46 Glucose (Fingerstick) 115 mg/dL (70-99) H Current Medications: Meds: Laboratory Tests Test 07/08/21 07:46 Glucose (Fingerstick) 115 mg/dL Current Medications Medications (Trade) Dose Ordered Sig/Aparna Route PRN Reason Start Time Stop Time Status Last Admin Dose Admin Acetaminophen (Tylenol) 650 mg PRN Q6HRS PRN PO MILD PAIN / TEMP > 100.3'F 07/06/21 00:30 Cancel Multi-Ingredient Ointment (Analgesic [place]) 1 inna PRN QID PRN TP MUSCLE PAIN 07/06/21 00:30 Al Hydroxide/Mg Hydroxide (Mylanta Plus Xs) 15 ml PRN AFTMEALHC PRN PO DYSPEPSIA 07/06/21 00:30 Magnesium Hydroxide (Milk Of Magnesia) 2,400 mg PRN QHS PRN PO 2ND CHOICE CONSTIPATION 07/06/21 00:30 Duloxetine HCl (Cymbalta) 20 mg HS PO 07/06/21 21:00 07/08/21 20:50 Duloxetine HCl (Cymbalta) 30 mg HS PO 07/06/21 21:00 07/08/21 20:50 Mirtazapine (Remeron) 7.5 mg HS PO 07/06/21 21:00 07/08/21 20:50 Olanzapine (ZyPREXA ZYDIS) 2.5 mg PRN Q2HR PRN PO ANXIETY / AGITATION 07/06/21 01:15 Trazodone HCl (Desyrel) 50 mg PRN QHS PRN PO INSOMNIA 07/06/21 01:15 07/08/21 20:51 Acetaminophen (Tylenol) 650 mg PRN Q4HRS PRN PO PAIN 07/06/21 10:30 Aspirin (Aspirin Enteric Coated) 81 mg DAILY PO 07/07/21 09:00 07/08/21 09:47 Atorvastatin Calcium (Lipitor) 10 mg QHS PO 07/06/21 21:00 07/08/21 20:50 Carvedilol (Coreg) 3.125 mg BIDWMEALS PO 07/06/21 17:00 07/08/21 17:22 Gabapentin (Neurontin) 300 mg BID PO 07/06/21 21:00 07/08/21 20:56 Metformin HCl (Glucophage Xr) 500 mg DAILYWBKFT PO 07/07/21 08:00 07/08/21 09:46 Multi-Ingredient Ointment (Analgesic [place]) 1 inna PRN QID PRN TP PAIN 07/06/21 10:30 UNV Phenytoin Sodium (Dilantin) 500 mg HS PO 07/06/21 21:00 07/07/21 22:27 DC 07/07/21 20:05 Tamsulosin HCl (Flomax) 0.4 mg DAILY PO 07/07/21 09:00 07/08/21 09:47 Polyethylene Glycol (miraLAX) 17 gm PRN DAILY PRN PO 1ST CHOICE CONSTIPATION 07/06/21 10:45 Non-Formulary Medication (Pravastatin Sodium ) 40 mg DAILY PO 07/07/21 09:00 UNV Phenyleph/Shark Oil/Min Oil/Petrol (Preparation H) 1 inna PRN QID PRN RC RECTAL PAIN 07/06/21 15:15 Phenytoin Sodium (Dilantin) 400 mg HS PO 07/08/21 21:00 07/08/21 20:51 Albuterol/ Ipratropium (Combivent Respimat 20-100 Mcg) 1 puff QID INH 07/08/21 13:00 07/08/21 20:51 Docusate Sodium (Colace) 100 mg DAILY PO 07/09/21 09:00 Guaifenesin (Mucinex Er) 600 mg BID PO 07/08/21 21:00 07/08/21 20:51 Magnesium Hydroxide (Milk Of Magnesia) 2,400 mg PRN QHS PRN PO 2nd CHOICE CONSTIPATION 07/08/21 19:30 Cancel Current Medications Medications (Trade) Dose Ordered Sig/Aparna Route PRN Reason Start Time Stop Time Status Last Admin Dose Admin Phenytoin Sodium (Dilantin) 400 mg HS PO 07/08/21 21:00 07/08/21 20:51 Albuterol/ Ipratropium (Combivent Respimat 20-100 Mcg) 1 puff QID INH 07/08/21 13:00 07/08/21 20:51 Guaifenesin (Mucinex Er) 600 mg BID PO 07/08/21 21:00 07/08/21 20:51 I have reviewed the current psychotropics carefully including drug interactions. Risk benefit ratio favors no change other than as noted in my dictated progress note. Diagnosis: Problems: (1) Impulse control disorder, unspecified (2) Anxiety disorder, unspecified (3) Dementia, vascular, with depression (4) Dementia, vascular, with delusions (5) Major neurocognitive disorder (6) Dementia in Alzheimer's disease with depression (7) Dementia in Alzheimer's disease with delusions (8) Dementia of the Alzheimer's type with early onset with behavioral disturb NIK Harrell MD Jul 09, 2021 06:18
--- NOTE | 2021-07-09 06:31 | PDOC ---
Exam Note: Leo Note: This note is a late entry for 07/08/2021 covers elements not covered in my initial note. Subjective: The patient was seen individually in the evening of 07/08/2021 with Jeanne KOWALSKI, discussed and reviewed the chart. The patient slept 7-3/4 hours previous night. He urinated in his bed. His Dilantin dosage has been reduced. Repeat labs awaited. Review of Systems: Ambulation impaired in wheelchair. No CV, , pulmonary, eye, ENT system symptoms on review. Reliability poor. Mental Status Exam: The patient is oriented to himself and situation. The patient was in his wheelchair in the hallway. He was verbal, interactive, complaining about staff. Speech coherent. Abstraction fair. Computation impaired. Language function intact. Mood and affect somewhat labile. Short- term memory impaired. No active suicidal or homicidal ideation. He is somewhat distractible. Laboratory Data: Reviewed. Impression: Major neurocognitive disorder, Alzheimer, vascular with delusion, depression, behavioral disturbance. Anxiety disorder unspecified. Impulse control disorder unspecified. Plan: Continue psychotropics from initial note and Dilantin has been adjusted. Assessment: Vital Signs/I&O: Vital Signs Date Time Temp Pulse Resp B/P (MAP) Pulse Ox O2 Delivery O2 Flow Rate FiO2 07/09/21 06:13 98.2 75 20 160/74 (102) 93 07/06/21 00:31 Room Air I & O 07/08/21 07/08/21 07/09/21 15:00 23:00 07:00 Intake Total 240 ml 600 ml Balance 240 ml 600 ml Labs: Laboratory Tests Test 07/08/21 07:46 Glucose (Fingerstick) 115 mg/dL (70-99) H Current Medications: Meds: Laboratory Tests Test 07/08/21 07:46 Glucose (Fingerstick) 115 mg/dL Current Medications Medications (Trade) Dose Ordered Sig/Aparna Route PRN Reason Start Time Stop Time Status Last Admin Dose Admin Acetaminophen (Tylenol) 650 mg PRN Q6HRS PRN PO MILD PAIN / TEMP > 100.3'F 07/06/21 00:30 Cancel Multi-Ingredient Ointment (Analgesic [place]) 1 inna PRN QID PRN TP MUSCLE PAIN 07/06/21 00:30 Al Hydroxide/Mg Hydroxide (Mylanta Plus Xs) 15 ml PRN AFTMEALHC PRN PO DYSPEPSIA 07/06/21 00:30 Magnesium Hydroxide (Milk Of Magnesia) 2,400 mg PRN QHS PRN PO 2ND CHOICE CONSTIPATION 07/06/21 00:30 Duloxetine HCl (Cymbalta) 20 mg HS PO 07/06/21 21:00 07/08/21 20:50 Duloxetine HCl (Cymbalta) 30 mg HS PO 07/06/21 21:00 07/08/21 20:50 Mirtazapine (Remeron) 7.5 mg HS PO 07/06/21 21:00 07/08/21 20:50 Olanzapine (ZyPREXA ZYDIS) 2.5 mg PRN Q2HR PRN PO ANXIETY / AGITATION 07/06/21 01:15 Trazodone HCl (Desyrel) 50 mg PRN QHS PRN PO INSOMNIA 07/06/21 01:15 07/08/21 20:51 Acetaminophen (Tylenol) 650 mg PRN Q4HRS PRN PO PAIN 07/06/21 10:30 Aspirin (Aspirin Enteric Coated) 81 mg DAILY PO 07/07/21 09:00 07/08/21 09:47 Atorvastatin Calcium (Lipitor) 10 mg QHS PO 07/06/21 21:00 07/08/21 20:50 Carvedilol (Coreg) 3.125 mg BIDWMEALS PO 07/06/21 17:00 07/08/21 17:22 Gabapentin (Neurontin) 300 mg BID PO 07/06/21 21:00 07/08/21 20:56 Metformin HCl (Glucophage Xr) 500 mg DAILYWBKFT PO 07/07/21 08:00 07/08/21 09:46 Multi-Ingredient Ointment (Analgesic [place]) 1 inna PRN QID PRN TP PAIN 07/06/21 10:30 UNV Phenytoin Sodium (Dilantin) 500 mg HS PO 07/06/21 21:00 07/07/21 22:27 DC 07/07/21 20:05 Tamsulosin HCl (Flomax) 0.4 mg DAILY PO 07/07/21 09:00 07/08/21 09:47 Polyethylene Glycol (miraLAX) 17 gm PRN DAILY PRN PO 1ST CHOICE CONSTIPATION 07/06/21 10:45 Non-Formulary Medication (Pravastatin Sodium ) 40 mg DAILY PO 07/07/21 09:00 UNV Phenyleph/Shark Oil/Min Oil/Petrol (Preparation H) 1 inna PRN QID PRN RC RECTAL PAIN 07/06/21 15:15 Phenytoin Sodium (Dilantin) 400 mg HS PO 07/08/21 21:00 07/08/21 20:51 Albuterol/ Ipratropium (Combivent Respimat 20-100 Mcg) 1 puff QID INH 07/08/21 13:00 07/08/21 20:51 Docusate Sodium (Colace) 100 mg DAILY PO 07/09/21 09:00 Guaifenesin (Mucinex Er) 600 mg BID PO 07/08/21 21:00 07/08/21 20:51 Magnesium Hydroxide (Milk Of Magnesia) 2,400 mg PRN QHS PRN PO 2nd CHOICE CONSTIPATION 07/08/21 19:30 Cancel Current Medications Medications (Trade) Dose Ordered Sig/Aparna Route PRN Reason Start Time Stop Time Status Last Admin Dose Admin Phenytoin Sodium (Dilantin) 400 mg HS PO 07/08/21 21:00 07/08/21 20:51 Albuterol/ Ipratropium (Combivent Respimat 20-100 Mcg) 1 puff QID INH 07/08/21 13:00 07/08/21 20:51 Guaifenesin (Mucinex Er) 600 mg BID PO 07/08/21 21:00 07/08/21 20:51 I have reviewed the current psychotropics carefully including drug interactions. Risk benefit ratio favors no change other than as noted in my dictated progress note. Diagnosis: Problems: (1) Impulse control disorder, unspecified (2) Anxiety disorder, unspecified (3) Dementia, vascular, with depression (4) Dementia, vascular, with delusions (5) Major neurocognitive disorder (6) Dementia in Alzheimer's disease with depression (7) Dementia in Alzheimer's disease with delusions (8) Dementia of the Alzheimer's type with early onset with behavioral disturbance NIK LOYA MD Jul 09, 2021 06:31
[2021-07-09] MEDS: CARVEDILOL 3.125 MG TABLET PO SCH ×2 (08:35→17:09)
[2021-07-09] MEDS: DOCUSATE SODIUM 100 MG CAPSULE PO SCH (08:35)
[2021-07-09] MEDS: GABAPENTIN 300 MG CAPSULE. PO SCH ×2 (08:35→20:46)
[2021-07-09] MEDS: TAMSULOSIN 0.4 MG CAP.ER.24H. PO SCH (08:35)
[2021-07-09] MEDS: metFORMIN XR 500 MG TAB.ER.24H PO SCH (08:36)
[2021-07-09] MEDS: ASPIRIN ENTERIC COATED 81 MG TABLET.DR. PO SCH (08:36)
[2021-07-09] MEDS: IPRATROPIUM/ALBUTEROL 20/100mcg/INH INHALER. INH SCH ×4 (08:41→20:47)
[2021-07-09 15:39] VITALS: BP 121/62
[2021-07-09] MEDS: DULoxetine HCL 30 MG CAPSULE.DR PO SCH (20:46)
[2021-07-09] MEDS: DULoxetine HCL 20 MG CAPSULE.DR PO SCH (20:46)
[2021-07-09] MEDS: ATORVASTATIN CALCIUM 10 MG TABLET. PO SCH (20:47)
[2021-07-09] MEDS: MIRTAZAPINE 7.5 MG TABLET. PO SCH (20:47)
[2021-07-09] MEDS: PHENYTOIN SODIUM EXTENDED 100 MG CAPSULE PO SCH (20:47)
--- NOTE | 2021-07-09 22:01 | PDOC ---
Exam Note: Leo Note: Please also refer to the separate dictated note~for this date of service dictated separately.~Patient seen individually. Discussed the patient with Nursing staff reviewed the chart.~Reviewed interim history and current functioning. Reviewed vital signs,~Labs/ Radiology~and current medications noted below. Continue current treatment with the changes noted in the dictated addendum note Assessment: Vital Signs/I&O: Vital Signs Date Time Temp Pulse Resp B/P (MAP) Pulse Ox O2 Delivery O2 Flow Rate FiO2 07/09/21 17:09 69 121/62 07/09/21 15:39 98.5 18 95 07/06/21 00:31 Room Air I & O 07/08/21 07/08/21 07/09/21 14:59 22:59 06:59 Intake Total 240 ml 600 ml Balance 240 ml 600 ml Labs: Laboratory Tests Test 07/09/21 07:47 Glucose (Fingerstick) 127 mg/dL (70-99) H Current Medications: Meds: Laboratory Tests Test 07/09/21 07:47 Glucose (Fingerstick) 127 mg/dL Current Medications Medications (Trade) Dose Ordered Sig/Aparna Route PRN Reason Start Time Stop Time Status Last Admin Dose Admin Acetaminophen (Tylenol) 650 mg PRN Q6HRS PRN PO MILD PAIN / TEMP > 100.3'F 07/06/21 00:30 Cancel Multi-Ingredient Ointment (Analgesic [place]) 1 inna PRN QID PRN TP MUSCLE PAIN 07/06/21 00:30 Al Hydroxide/Mg Hydroxide (Mylanta Plus Xs) 15 ml PRN AFTMEALHC PRN PO DYSPEPSIA 07/06/21 00:30 Magnesium Hydroxide (Milk Of Magnesia) 2,400 mg PRN QHS PRN PO 2ND CHOICE CONSTIPATION 07/06/21 00:30 Duloxetine HCl (Cymbalta) 20 mg HS PO 07/06/21 21:00 07/09/21 20:46 Duloxetine HCl (Cymbalta) 30 mg HS PO 07/06/21 21:00 07/09/21 20:46 Mirtazapine (Remeron) 7.5 mg HS PO 07/06/21 21:00 07/09/21 20:47 Olanzapine (ZyPREXA ZYDIS) 2.5 mg PRN Q2HR PRN PO ANXIETY / AGITATION 07/06/21 01:15 Trazodone HCl (Desyrel) 50 mg PRN QHS PRN PO INSOMNIA 07/06/21 01:15 07/08/21 20:51 Acetaminophen (Tylenol) 650 mg PRN Q4HRS PRN PO PAIN 07/06/21 10:30 Aspirin (Aspirin Enteric Coated) 81 mg DAILY PO 07/07/21 09:00 07/09/21 08:36 Atorvastatin Calcium (Lipitor) 10 mg QHS PO 07/06/21 21:00 07/09/21 20:47 Carvedilol (Coreg) 3.125 mg BIDWMEALS PO 07/06/21 17:00 07/09/21 17:09 Gabapentin (Neurontin) 300 mg BID PO 07/06/21 21:00 07/09/21 20:46 Metformin HCl (Glucophage Xr) 500 mg DAILYWBKFT PO 07/07/21 08:00 07/09/21 08:36 Multi-Ingredient Ointment (Analgesic [place]) 1 inna PRN QID PRN TP PAIN 07/06/21 10:30 UNV Phenytoin Sodium (Dilantin) 500 mg HS PO 07/06/21 21:00 07/07/21 22:27 DC 07/07/21 20:05 Tamsulosin HCl (Flomax) 0.4 mg DAILY PO 07/07/21 09:00 07/09/21 08:35 Polyethylene Glycol (miraLAX) 17 gm PRN DAILY PRN PO 1ST CHOICE CONSTIPATION 07/06/21 10:45 Non-Formulary Medication (Pravastatin Sodium ) 40 mg DAILY PO 07/07/21 09:00 UNV Phenyleph/Shark Oil/Min Oil/Petrol (Preparation H) 1 inna PRN QID PRN RC RECTAL PAIN 07/06/21 15:15 Phenytoin Sodium (Dilantin) 400 mg HS PO 07/08/21 21:00 07/09/21 20:47 Albuterol/ Ipratropium (Combivent Respimat 20-100 Mcg) 1 puff QID INH 07/08/21 13:00 07/09/21 20:47 Docusate Sodium (Colace) 100 mg DAILY PO 07/09/21 09:00 07/09/21 08:35 Guaifenesin (Mucinex Er) 600 mg BID PO 07/08/21 21:00 07/09/21 20:46 Magnesium Hydroxide (Milk Of Magnesia) 2,400 mg PRN QHS PRN PO 2nd CHOICE CONSTIPATION 07/08/21 19:30 Cancel Current Medications Medications (Trade) Dose Ordered Sig/Aparna Route PRN Reason Start Time Stop Time Status Last Admin Dose Admin Docusate Sodium (Colace) 100 mg DAILY PO 07/09/21 09:00 07/09/21 08:35 I have reviewed the current psychotropics carefully including drug interactions. Risk benefit ratio favors no change other than as noted in my dictated progress note. Diagnosis: Problems: (1) Impulse control disorder, unspecified (2) Anxiety disorder, unspecified (3) Dementia, vascular, with depression (4) Dementia, vascular, with delusions (5) Major neurocognitive disorder (6) Dementia in Alzheimer's disease with depression (7) Dementia in Alzheimer's disease with delusions (8) Dementia of the Alzheimer's type with early onset with behavioral disturbance NIK LOYA MD Jul 09, 2021 22:01
--- NOTE | 2021-07-10 00:48 | NUR ---
Nursing Note Pt has crackles and wheezes and coughing up sputum. Sats are 98% on room air. Med compliant and cooperative. Denies complaints.
[2021-07-10 06:36] VITALS: BP 146/76
[2021-07-10 08:06] LABS: PHENY 24.7 mcg/mL (10.0-20.0)
[2021-07-10] MEDS: metFORMIN XR 500 MG TAB.ER.24H PO SCH (09:41)
[2021-07-10] MEDS: TAMSULOSIN 0.4 MG CAP.ER.24H. PO SCH (09:41)
[2021-07-10] MEDS: GABAPENTIN 300 MG CAPSULE. PO SCH ×2 (09:41→21:06)
[2021-07-10] MEDS: CARVEDILOL 3.125 MG TABLET PO SCH ×2 (09:41→17:46)
[2021-07-10] MEDS: DOCUSATE SODIUM 100 MG CAPSULE PO SCH (09:41)
[2021-07-10] MEDS: IPRATROPIUM/ALBUTEROL 20/100mcg/INH INHALER. INH SCH ×4 (09:42→21:05)
[2021-07-10] MEDS: ASPIRIN ENTERIC COATED 81 MG TABLET.DR. PO SCH (09:42)
[2021-07-10 15:48] VITALS: BP 148/72
--- NOTE | 2021-07-10 18:30 | NUR ---
Patient has been withdrawn to his room, irritable at times, and compliant with medications. HE showed no interest in breakfast or lunch. Will continue to monitor and report to oncoming shift.
[2021-07-10] MEDS: MIRTAZAPINE 7.5 MG TABLET. PO SCH (21:06)
[2021-07-10] MEDS: DULoxetine HCL 20 MG CAPSULE.DR PO SCH (21:06)
[2021-07-10] MEDS: DULoxetine HCL 30 MG CAPSULE.DR PO SCH (21:06)
[2021-07-10] MEDS: PHENYTOIN SODIUM EXTENDED 100 MG CAPSULE PO SCH (21:06)
[2021-07-10] MEDS: ATORVASTATIN CALCIUM 10 MG TABLET. PO SCH (21:06)
--- NOTE | 2021-07-10 21:56 | PDOC ---
Exam Note: Leo Note: Please also refer to the separate dictated note~for this date of service dictated separately.~Patient seen individually. Discussed the patient with Nursing staff reviewed the chart.~Reviewed interim history and current functioning. Reviewed vital signs,~Labs/ Radiology~and current medications noted below. Continue current treatment with the changes noted in the dictated addendum note Assessment: Vital Signs/I&O: Vital Signs Date Time Temp Pulse Resp B/P (MAP) Pulse Ox O2 Delivery O2 Flow Rate FiO2 07/10/21 17:46 86 148/72 07/10/21 15:48 98.0 20 97 07/06/21 00:31 Room Air I & O 07/09/21 07/09/21 07/10/21 15:00 23:00 07:00 Intake Total 960 ml 480 ml Balance 960 ml 480 ml Labs: Laboratory Tests Test 07/10/21 07:49 Phenytoin (Dilantin) Level 24.7 mcg/mL (10.0-20.0) H Phenytoin Last Dose Date 07/09/21 Phenytoin Last Dose Time 2100 Current Medications: Meds: Laboratory Tests Test 07/10/21 07:49 Phenytoin (Dilantin) Level 24.7 mcg/mL Phenytoin Last Dose Date 07/09/21 Phenytoin Last Dose Time 2100 Current Medications Medications (Trade) Dose Ordered Sig/Aparna Route PRN Reason Start Time Stop Time Status Last Admin Dose Admin Acetaminophen (Tylenol) 650 mg PRN Q6HRS PRN PO MILD PAIN / TEMP > 100.3'F 07/06/21 00:30 Cancel Multi-Ingredient Ointment (Analgesic [place]) 1 inna PRN QID PRN TP MUSCLE PAIN 07/06/21 00:30 Al Hydroxide/Mg Hydroxide (Mylanta Plus Xs) 15 ml PRN AFTMEALHC PRN PO DYSPEPSIA 07/06/21 00:30 Magnesium Hydroxide (Milk Of Magnesia) 2,400 mg PRN QHS PRN PO 2ND CHOICE CONSTIPATION 07/06/21 00:30 Duloxetine HCl (Cymbalta) 20 mg HS PO 07/06/21 21:00 07/10/21 21:06 Duloxetine HCl (Cymbalta) 30 mg HS PO 07/06/21 21:00 07/10/21 21:06 Mirtazapine (Remeron) 7.5 mg HS PO 07/06/21 21:00 07/10/21 21:06 Olanzapine (ZyPREXA ZYDIS) 2.5 mg PRN Q2HR PRN PO ANXIETY / AGITATION 07/06/21 01:15 Trazodone HCl (Desyrel) 50 mg PRN QHS PRN PO INSOMNIA 07/06/21 01:15 07/08/21 20:51 Acetaminophen (Tylenol) 650 mg PRN Q4HRS PRN PO PAIN 07/06/21 10:30 Aspirin (Aspirin Enteric Coated) 81 mg DAILY PO 07/07/21 09:00 07/10/21 09:42 Atorvastatin Calcium (Lipitor) 10 mg QHS PO 07/06/21 21:00 07/10/21 21:06 Carvedilol (Coreg) 3.125 mg BIDWMEALS PO 07/06/21 17:00 07/10/21 17:46 Gabapentin (Neurontin) 300 mg BID PO 07/06/21 21:00 07/10/21 21:06 Metformin HCl (Glucophage Xr) 500 mg DAILYWBKFT PO 07/07/21 08:00 07/10/21 09:41 Multi-Ingredient Ointment (Analgesic [place]) 1 inna PRN QID PRN TP PAIN 07/06/21 10:30 UNV Phenytoin Sodium (Dilantin) 500 mg HS PO 07/06/21 21:00 07/07/21 22:27 DC 07/07/21 20:05 Tamsulosin HCl (Flomax) 0.4 mg DAILY PO 07/07/21 09:00 07/10/21 09:41 Polyethylene Glycol (miraLAX) 17 gm PRN DAILY PRN PO 1ST CHOICE CONSTIPATION 07/06/21 10:45 Non-Formulary Medication (Pravastatin Sodium ) 40 mg DAILY PO 07/07/21 09:00 UNV Phenyleph/Shark Oil/Min Oil/Petrol (Preparation H) 1 inna PRN QID PRN RC RECTAL PAIN 07/06/21 15:15 Phenytoin Sodium (Dilantin) 400 mg HS PO 07/08/21 21:00 07/10/21 21:06 Albuterol/ Ipratropium (Combivent Respimat 20-100 Mcg) 1 puff QID INH 8/10/21 13:00 07/10/21 21:05 Docusate Sodium (Colace) 100 mg DAILY PO 07/09/21 09:00 07/10/21 09:41 Guaifenesin (Mucinex Er) 600 mg BID PO 07/08/21 21:00 07/10/21 21:06 Magnesium Hydroxide (Milk Of Magnesia) 2,400 mg PRN QHS PRN PO 2nd CHOICE CONSTIPATION 07/08/21 19:30 Cancel I have reviewed the current psychotropics carefully including drug interactions. Risk benefit ratio favors no change other than as noted in my dictated progress note. Diagnosis: Problems: (1) Impulse control disorder, unspecified (2) Anxiety disorder, unspecified (3) Dementia, vascular, with depression (4) Dementia, vascular, with delusions (5) Major neurocognitive disorder (6) Dementia in Alzheimer's disease with depression (7) Dementia in Alzheimer's disease with delusions (8) Dementia of the Alzheimer's type with early onset with behavioral disturbance NIK LOYA MD Jul 10, 2021 21:56
--- NOTE | 2021-07-11 03:43 | NUR ---
Nursing Note The patient was located in his room for his assessment and medication pass. The patient was irritable and argumentative/disruptive. The patient purposefully exited his room in order to clear his throat in order to disrupt the unit. When asked why he was doing this the patient reported he was unhappy with his new room. The patient took his medication whole. The patient was alert to name and hospital. The patient is currently sleeping in his room.
[2021-07-11 06:11] VITALS: BP 117/73
--- NOTE | 2021-07-11 06:19 | PDOC ---
Exam Note: Leo Note: This note is a late entry for 07/09/2021 covers elements not covered in my initial note. Subjective: The patient was seen individually in the evening of 07/09/2021 with Jeanne KOWALSKI, discussed and reviewed the chart. The patient slept 5-3/4 hours previous night. Overall the patient has been somewhat anxious, a little demanding at times but spending time in his room. He has some somatic preoccupation but has connected with another demented patient on the unit. I met with him in his room. Review of Systems: Ambulation impaired in wheelchair. No CV, , eye, ENT system symptoms on review. He has vague somatic symptoms. Mental Status Exam: The patient is oriented to himself and situation. Speech coherent. Abstraction fair. Computation impaired. Language function intact. Mood and affect somewhat labile. Short-term memory impaired. No active suicidal or homicidal ideation. Laboratory Data: Reviewed. Impression: Major neurocognitive disorder, Alzheimer, vascular with delusion, depression, behavioral disturbance. Anxiety disorder unspecified. Impulse co ntrol disorder unspecified. Plan: Continue psychotropics from initial note. Assessment: Vital Signs/I&O: Vital Signs Date Time Temp Pulse Resp B/P (MAP) Pulse Ox O2 Delivery O2 Flow Rate FiO2 07/11/21 06:11 97.9 77 18 117/73 (88) 92 07/06/21 00:31 Room Air I & O 07/10/21 07/10/21 07/11/21 15:00 23:00 07:00 Intake Total 240 ml 480 ml Balance 240 ml 480 ml Labs: Laboratory Tests Test 07/10/21 07:49 Phenytoin (Dilantin) Level 24.7 mcg/mL (10.0-20.0) H Phenytoin Last Dose Date 07/09/21 Phenytoin Last Dose Time 2100 Current Medications: Meds: Laboratory Tests Test 07/10/21 07:49 Phenytoin (Dilantin) Level 24.7 mcg/mL Phenytoin Last Dose Date 07/09/21 Phenytoin Last Dose Time 2100 Current Medications Medications (Trade) Dose Ordered Sig/Aparna Route PRN Reason Start Time Stop Time Status Last Admin Dose Admin Acetaminophen (Tylenol) 650 mg PRN Q6HRS PRN PO MILD PAIN / TEMP > 100.3'F 07/06/21 00:30 Cancel Multi-Ingredient Ointment (Analgesic [place]) 1 inna PRN QID PRN TP MUSCLE PAIN 07/06/21 00:30 Al Hydroxide/Mg Hydroxide (Mylanta Plus Xs) 15 ml PRN AFTMEALHC PRN PO DYSPEPSIA 07/06/21 00:30 Magnesium Hydroxide (Milk Of Magnesia) 2,400 mg PRN QHS PRN PO 2ND CHOICE CONSTIPATION 07/06/21 00:30 Duloxetine HCl (Cymbalta) 20 mg HS PO 07/06/21 21:00 07/10/21 21:06 Duloxetine HCl (Cymbalta) 30 mg HS PO 07/06/21 21:00 07/10/21 21:06 Mirtazapine (Remeron) 7.5 mg HS PO 07/06/21 21:00 07/10/21 21:06 Olanzapine (ZyPREXA ZYDIS) 2.5 mg PRN Q2HR PRN PO ANXIETY / AGITATION 07/06/21 01:15 Trazodone HCl (Desyrel) 50 mg PRN QHS PRN PO INSOMNIA 07/06/21 01:15 07/08/21 20:51 Acetaminophen (Tylenol) 650 mg PRN Q4HRS PRN PO PAIN 07/06/21 10:30 Aspirin (Aspirin Enteric Coated) 81 mg DAILY PO 07/07/21 09:00 07/10/21 09:42 Atorvastatin Calcium (Lipitor) 10 mg QHS PO 07/06/21 21:00 07/10/21 21:06 Carvedilol (Coreg) 3.125 mg BIDWMEALS PO 07/06/21 17:00 07/10/21 17:46 Gabapentin (Neurontin) 300 mg BID PO 07/06/21 21:00 07/10/21 21:06 Metformin HCl (Glucophage Xr) 500 mg DAILYWBKFT PO 07/07/21 08:00 07/10/21 09:41 Multi-Ingredient Ointment (Analgesic [place]) 1 inna PRN QID PRN TP PAIN 07/06/21 10:30 UNV Phenytoin Sodium (Dilantin) 500 mg HS PO 07/06/21 21:00 07/07/21 22:27 DC 07/07/21 20:05 Tamsulosin HCl (Flomax) 0.4 mg DAILY PO 07/07/21 09:00 07/10/21 09:41 Polyethylene Glycol (miraLAX) 17 gm PRN DAILY PRN PO 1ST CHOICE CONSTIPATION 07/06/21 10:45 Non-Formulary Medication (Pravastatin Sodium ) 40 mg DAILY PO 07/07/21 09:00 UNV Phenyleph/Shark Oil/Min Oil/Petrol (Preparation H) 1 inna PRN QID PRN RC RECTAL PAIN 07/06/21 15:15 Phenytoin Sodium (Dilantin) 400 mg HS PO 07/08/21 21:00 07/10/21 21:06 Albuterol/ Ipratropium (Combivent Respimat 20-100 Mcg) 1 puff QID INH 07/08/21 13:00 07/10/21 21:05 Docusate Sodium (Colace) 100 mg DAILY PO 07/09/21 09:00 07/10/21 09:41 Guaifenesin (Mucinex Er) 600 mg BID PO 07/08/21 21:00 07/10/21 21:06 Magnesium Hydroxide (Milk Of Magnesia) 2,400 mg PRN QHS PRN PO 2nd CHOICE CONSTIPATION 07/08/21 19:30 Cancel I have reviewed the current psychotropics carefully including drug interactions. Risk benefit ratio favors no change other than as noted in my dictated progress note. 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
--- NOTE | 2021-07-11 06:32 | PDOC ---
Exam Note: Leo Note: This note is a late entry for 07/10/2021 covers elements not covered in my initial note. Subjective: The patient was seen individually in the evening of 07/10/2021 with Eliud KOWALSKI, discussed and reviewed the chart. The patient slept 5-3/4 hours previous night. The patient has been moved to the other hallway as COVID precautions are reduced for him. He has done reasonably well much of the day but in the evening he was having some extremely dramatic coughing. Review of Systems: Ambulation impaired in wheelchair. No CV, , eye, ENT system symptoms on review. Positive for what he describes as asthma episodes. Mental Status Exam: The patient is oriented to himself and situation. Speech coherent. Abstraction fair. Computation impaired. Language function intact. Mood and affect somewhat anxious, labile. Laboratory Data: Reviewed. Impression: Major neurocognitive disorder, Alzheimer, vascular with delusion, depression, behavioral disturbance. Anxiety disorder unspecified. Impulse control disorder unspecified. Plan: Continue psychotropics from initial note. Assessment: Vital Signs/I&O: Vital Signs Date Time Temp Pulse Resp B/P (MAP) Pulse Ox O2 Delivery O2 Flow Rate FiO2 07/11/21 06:11 97.9 77 18 117/73 (88) 92 07/06/21 00:31 Room Air I & O 07/10/21 07/10/21 07/11/21 15:00 23:00 07:00 Intake Total 240 ml 480 ml Balance 240 ml 480 ml Labs: Laboratory Tests Test 07/10/21 07:49 Phenytoin (Dilantin) Level 24.7 mcg/mL (10.0-20.0) H Phenytoin Last Dose Date 07/09/21 Phenytoin Last Dose Time 2100 Current Medications: Meds: Laboratory Tests Test 07/10/21 07:49 Phenytoin (Dilantin) Level 24.7 mcg/mL Phenytoin Last Dose Date 07/09/21 Phenytoin Last Dose Time 2100 Current Medications Medications (Trade) Dose Ordered Sig/Aparna Route PRN Reason Start Time Stop Time Status Last Admin Dose Admin Acetaminophen (Tylenol) 650 mg PRN Q6HRS PRN PO MILD PAIN / TEMP > 100.3'F 07/06/21 00:30 Cancel Multi-Ingredient Ointment (Analgesic [place]) 1 inna PRN QID PRN TP MUSCLE PAIN 07/06/21 00:30 Al Hydroxide/Mg Hydroxide (Mylanta Plus Xs) 15 ml PRN AFTMEALHC PRN PO DYSPEPSIA 07/06/21 00:30 Magnesium Hydroxide (Milk Of Magnesia) 2,400 mg PRN QHS PRN PO 2ND CHOICE CONSTIPATION 07/06/21 00:30 Duloxetine HCl (Cymbalta) 20 mg HS PO 07/06/21 21:00 07/10/21 21:06 Duloxetine HCl (Cymbalta) 30 mg HS PO 07/06/21 21:00 07/10/21 21:06 Mirtazapine (Remeron) 7.5 mg HS PO 07/06/21 21:00 07/10/21 21:06 Olanzapine (ZyPREXA ZYDIS) 2.5 mg PRN Q2HR PRN PO ANXIETY / AGITATION 07/06/21 01:15 Trazodone HCl (Desyrel) 50 mg PRN QHS PRN PO INSOMNIA 07/06/21 01:15 07/08/21 20:51 Acetaminophen (Tylenol) 650 mg PRN Q4HRS PRN PO PAIN 07/06/21 10:30 Aspirin (Aspirin Enteric Coated) 81 mg DAILY PO 07/07/21 09:00 07/10/21 09:42 Atorvastatin Calcium (Lipitor) 10 mg QHS PO 07/06/21 21:00 07/10/21 21:06 Carvedilol (Coreg) 3.125 mg BIDWMEALS PO 07/06/21 17:00 07/10/21 17:46 Gabapentin (Neurontin) 300 mg BID PO 07/06/21 21:00 07/10/21 21:06 Metformin HCl (Glucophage Xr) 500 mg DAILYWBKFT PO 07/07/21 08:00 07/10/21 09:41 Multi-Ingredient Ointment (Analgesic [place]) 1 inna PRN QID PRN TP PAIN 07/06/21 10:30 UNV Phenytoin Sodium (Dilantin) 500 mg HS PO 07/06/21 21:00 07/07/21 22:27 DC 07/07/21 20:05 Tamsulosin HCl (Flomax) 0.4 mg DAILY PO 07/07/21 09:00 07/10/21 09:41 Polyethylene Glycol (miraLAX) 17 gm PRN DAILY PRN PO 1ST CHOICE CONSTIPATION 07/06/21 10:45 Non-Formulary Medication (Pravastatin Sodium ) 40 mg DAILY PO 07/07/21 09:00 UNV Phenyleph/Shark Oil/Min Oil/Petrol (Preparation H) 1 inna PRN QID PRN RC RECTAL PAIN 07/06/21 15:15 Phenytoin Sodium (Dilantin) 400 mg HS PO 07/08/21 21:00 07/10/21 21:06 Albuterol/ Ipratropium (Combivent Respimat 20-100 Mcg) 1 puff QID INH 07/08/21 13:00 07/10/21 21:05 Docusate Sodium (Colace) 100 mg DAILY PO 07/09/21 09:00 07/10/21 09:41 Guaifenesin (Mucinex Er) 600 mg BID PO 07/08/21 21:00 07/10/21 21:06 Magnesium Hydroxide (Milk Of Magnesia) 2,400 mg PRN QHS PRN PO 2nd CHOICE CONSTIPATION 07/08/21 19:30 Cancel I have reviewed the current psychotropics carefully including drug interactions. Risk benefit ratio favors no change other than as noted in my dictated progress note. Diagnosis: Problems: (1) Impulse control disorder, unspecified (2) Anxiety disorder, unspecified (3) Dementia, vascular, with depression (4) Dementia, vascular, with delusions (5) Major neurocognitive disorder (6) Dementia in Alzheimer's disease with depression (7) Dementia in Alzheimer's disease with delusions (8) Dementia of the Alzheimer's type with early onset with behavioral disturbance NIK LOYA MD Jul 11, 2021 06:32
[2021-07-11] MEDS: ASPIRIN ENTERIC COATED 81 MG TABLET.DR. PO SCH (08:47)
[2021-07-11] MEDS: TAMSULOSIN 0.4 MG CAP.ER.24H. PO SCH (08:47)
[2021-07-11] MEDS: IPRATROPIUM/ALBUTEROL 20/100mcg/INH INHALER. INH SCH ×4 (08:47→20:36)
[2021-07-11] MEDS: GABAPENTIN 300 MG CAPSULE. PO SCH ×2 (08:47→20:35)
[2021-07-11] MEDS: DOCUSATE SODIUM 100 MG CAPSULE PO SCH (08:47)
[2021-07-11] MEDS: metFORMIN XR 500 MG TAB.ER.24H PO SCH (08:47)
[2021-07-11] MEDS: CARVEDILOL 3.125 MG TABLET PO SCH ×2 (08:47→17:34)
[2021-07-11 15:59] VITALS: BP 127/62
--- NOTE | 2021-07-11 17:59 | NUR ---
Patient has been withdrawn to his room, irritable at times, and compliant with medications. He was less withdrawn today and preoccupied with his tremors stating he never shook so much in his life. Will continue to monitor and report to oncoming shift.
[2021-07-11] MEDS: PHENYTOIN SODIUM EXTENDED 100 MG CAPSULE PO SCH (20:35)
[2021-07-11] MEDS: ATORVASTATIN CALCIUM 10 MG TABLET. PO SCH (20:35)
[2021-07-11] MEDS: MIRTAZAPINE 7.5 MG TABLET. PO SCH (20:35)
[2021-07-11] MEDS: DULoxetine HCL 20 MG CAPSULE.DR PO SCH (20:36)
[2021-07-11] MEDS: DULoxetine HCL 30 MG CAPSULE.DR PO SCH (20:36)
--- NOTE | 2021-07-11 22:07 | PDOC ---
Exam Note: Leo Note: Please also refer to the separate dictated note~for this date of service dictated separately.~Patient seen individually. Discussed the patient with Nursing staff reviewed the chart.~Reviewed interim history and current functioning. Reviewed vital signs,~Labs/ Radiology~and current medications noted below. Continue current treatment with the changes noted in the dictated addendum note Assessment: Vital Signs/I&O: Vital Signs Date Time Temp Pulse Resp B/P (MAP) Pulse Ox O2 Delivery O2 Flow Rate FiO2 07/11/21 17:34 67 127/62 07/11/21 15:59 98.2 18 95 Room Air I & O 07/10/21 07/10/21 07/11/21 15:00 23:00 07:00 Intake Total 240 ml 480 ml Balance 240 ml 480 ml Labs: Laboratory Tests Test 07/11/21 07:18 Glucose (Fingerstick) 103 mg/dL (70-99) H Current Medications: Meds: Laboratory Tests Test 07/11/21 07:18 Glucose (Fingerstick) 103 mg/dL Current Medications Medications (Trade) Dose Ordered Sig/Aparna Route PRN Reason Start Time Stop Time Status Last Admin Dose Admin Acetaminophen (Tylenol) 650 mg PRN Q6HRS PRN PO MILD PAIN / TEMP > 100.3'F 07/06/21 00:30 Cancel Multi-Ingredient Ointment (Analgesic [place]) 1 inna PRN QID PRN TP MUSCLE PAIN 07/06/21 00:30 Al Hydroxide/Mg Hydroxide (Mylanta Plus Xs) 15 ml PRN AFTMEALHC PRN PO DYSPEPSIA 07/06/21 00:30 Magnesium Hydroxide (Milk Of Magnesia) 2,400 mg PRN QHS PRN PO 2ND CHOICE CONSTIPATION 07/06/21 00:30 Duloxetine HCl (Cymbalta) 20 mg HS PO 07/06/21 21:00 07/11/21 20:36 Duloxetine HCl (Cymbalta) 30 mg HS PO 07/06/21 21:00 07/11/21 20:36 Mirtazapine (Remeron) 7.5 mg HS PO 07/06/21 21:00 07/11/21 20:35 Olanzapine (ZyPREXA ZYDIS) 2.5 mg PRN Q2HR PRN PO ANXIETY / AGITATION 07/06/21 01:15 Trazodone HCl (Desyrel) 50 mg PRN QHS PRN PO INSOMNIA 07/06/21 01:15 07/08/21 20:51 Acetaminophen (Tylenol) 650 mg PRN Q4HRS PRN PO PAIN 07/06/21 10:30 Aspirin (Aspirin Enteric Coated) 81 mg DAILY PO 07/07/21 09:00 07/11/21 08:47 Atorvastatin Calcium (Lipitor) 10 mg QHS PO 07/06/21 21:00 07/11/21 20:35 Carvedilol (Coreg) 3.125 mg BIDWMEALS PO 07/06/21 17:00 07/11/21 17:34 Gabapentin (Neurontin) 300 mg BID PO 07/06/21 21:00 07/11/21 20:35 Metformin HCl (Glucophage Xr) 500 mg DAILYWBKFT PO 07/07/21 08:00 07/11/21 08:47 Multi-Ingredient Ointment (Analgesic [place]) 1 inna PRN QID PRN TP PAIN 07/06/21 10:30 UNV Phenytoin Sodium (Dilantin) 500 mg HS PO 07/06/21 21:00 07/07/21 22:27 DC 07/07/21 20:05 Tamsulosin HCl (Flomax) 0.4 mg DAILY PO 07/07/21 09:00 07/11/21 08:47 Polyethylene Glycol (miraLAX) 17 gm PRN DAILY PRN PO 1ST CHOICE CONSTIPATION 07/06/21 10:45 Non-Formulary Medication (Pravastatin Sodium ) 40 mg DAILY PO 07/07/21 09:00 UNV Phenyleph/Shark Oil/Min Oil/Petrol (Preparation H) 1 inna PRN QID PRN RC RECTAL PAIN 07/06/21 15:15 Phenytoin Sodium (Dilantin) 400 mg HS PO 07/08/21 21:00 07/11/21 20:35 Albuterol/ Ipratropium (Combivent Respimat 20-100 Mcg) 1 puff QID INH 07/08/21 13:00 07/11/21 20:36 Docusate Sodium (Colace) 100 mg DAILY PO 07/09/21 09:00 07/11/21 08:47 Guaifenesin (Mucinex Er) 600 mg BID PO 07/08/21 21:00 07/11/21 20:35 Magnesium Hydroxide (Milk Of Magnesia) 2,400 mg PRN QHS PRN PO 2nd CHOICE CONSTIPATION 07/08/21 19:30 Cancel I have reviewed the current psychotropics carefully including drug interactions. Risk benefit ratio favors no change other than as noted in my dictated progress note. Diagnosis: Problems: (1) Impulse control disorder, unspecified (2) Anxiety disorder, unspecified (3) Dementia, vascular, with depression (4) Dementia, vascular, with delusions (5) Major neurocognitive disorder (6) Dementia in Alzheimer's disease with depression (7) Dementia in Alzheimer's disease with delusions (8) Dementia of the Alzheimer's type with early onset with behavioral disturbance NIK LOYA MD Jul 11, 2021 22:07
--- NOTE | 2021-07-11 23:28 | NUR ---
Pt has been attention seeking and needy this evening. Pt acting helpless; repeatedly asking staff to do things for him that he can do himself. Compliant with whole medications and shower. Continues to have productive cough.
[2021-07-12 06:16] VITALS: BP 146/72
[2021-07-12] MEDS: metFORMIN XR 500 MG TAB.ER.24H PO SCH (08:45)
[2021-07-12] MEDS: CARVEDILOL 3.125 MG TABLET PO SCH ×2 (08:45→17:00)
[2021-07-12] MEDS: PHENYTOIN SODIUM EXTENDED 100 MG CAPSULE PO SCH ×2 (08:45→19:57)
[2021-07-12] MEDS: MAGNESIUM HYDROXIDE 2,400 MG/30 ML ORAL.SUSP. PO PRN (08:46)
[2021-07-12] MEDS: DOCUSATE SODIUM 100 MG CAPSULE PO SCH (08:46)
[2021-07-12] MEDS: ASPIRIN ENTERIC COATED 81 MG TABLET.DR. PO SCH (08:46)
[2021-07-12] MEDS: TAMSULOSIN 0.4 MG CAP.ER.24H. PO SCH (08:46)
[2021-07-12] MEDS: GABAPENTIN 300 MG CAPSULE. PO SCH ×2 (08:46→19:58)
[2021-07-12] MEDS: IPRATROPIUM/ALBUTEROL 20/100mcg/INH INHALER. INH SCH ×4 (08:48→19:56)
--- NOTE | 2021-07-12 09:58 | NUR ---
Pt continues to act helpless and requesting assistance with things that he is able to do himself. Encouragement for as munch independence as possible is provided. He is compliant with whole medications. Pt is possibly delusional this morning, during assessment questioning he states that we are in [place]. Pt A&O to name/ only. Absent of SI/HI/VH/AH at this time. Pt continues to have wheezes upon auscultation, scheduled Combivent provided. Plan of care continues, will pass to next shift.
--- NOTE | 2021-07-12 10:53 | NUR ---
PRN Milk of Mag 30 mL administered with morning medications d/t c/o constipation.
--- NOTE | 2021-07-12 14:39 | NUR ---
Pt continues to display increased neediness and helplessness. He was in elevated anxiety and yelling that he needed his socks pulled up, upon observation they were already on his feet and up to his ankles. When this was pointed out he began to exclaim that he needed help with pulling his pants up since he just completed toileting. Upon observation his pants were up and around his waist, up to his bellybutton. While wheeling himself to the dining room for lunch he began to insist that he needed help to be wheeled to the dining room, encouragement to to perform tasks and ind as possible was provided and he then demonstrated ability to wheel self to dining room ind.
[2021-07-12 15:50] VITALS: BP 110/65
[2021-07-12] MEDS: DULoxetine HCL 20 MG CAPSULE.DR PO SCH (19:57)
[2021-07-12] MEDS: DULoxetine HCL 30 MG CAPSULE.DR PO SCH (19:57)
[2021-07-12] MEDS: MIRTAZAPINE 7.5 MG TABLET. PO SCH (19:57)
[2021-07-12] MEDS: ATORVASTATIN CALCIUM 10 MG TABLET. PO SCH (19:58)
--- NOTE | 2021-07-12 22:18 | PDOC ---
Exam Note: Leo Note: Please also refer to the separate dictated note~for this date of service dictated separately.~Patient seen individually. Discussed the patient with Nursing staff reviewed the chart.~Reviewed interim history and current functioning. Reviewed vital signs,~Labs/ Radiology~and current medications noted below. Continue current treatment with the changes noted in the dictated addendum note Assessment: Vital Signs/I&O: Vital Signs Date Time Temp Pulse Resp B/P (MAP) Pulse Ox O2 Delivery O2 Flow Rate FiO2 07/12/21 17:00 68 110/65 07/12/21 15:50 97.9 16 96 Room Air I & O 07/11/21 07/11/21 07/12/21 15:00 23:00 07:00 Intake Total 720 ml 360 ml Balance 720 ml 360 ml Labs: Laboratory Tests Test 07/12/21 08:04 Glucose (Fingerstick) 135 mg/dL (70-99) H Current Medications: Meds: Laboratory Tests Test 07/12/21 08:04 Glucose (Fingerstick) 135 mg/dL Current Medications Medications (Trade) Dose Ordered Sig/Aparna Route PRN Reason Start Time Stop Time Status Last Admin Dose Admin Acetaminophen (Tylenol) 650 mg PRN Q6HRS PRN PO MILD PAIN / TEMP > 100.3'F 07/06/21 00:30 Cancel Multi-Ingredient Ointment (Analgesic [place]) 1 inna PRN QID PRN TP MUSCLE PAIN 07/06/21 00:30 Al Hydroxide/Mg Hydroxide (Mylanta Plus Xs) 15 ml PRN AFTMEALHC PRN PO DYSPEPSIA 07/06/21 00:30 Magnesium Hydroxide (Milk Of Magnesia) 2,400 mg PRN QHS PRN PO 2ND CHOICE CONSTIPATION 07/06/21 00:30 07/12/21 08:46 Duloxetine HCl (Cymbalta) 20 mg HS PO 07/06/21 21:00 07/12/21 19:57 Duloxetine HCl (Cymbalta) 30 mg HS PO 07/06/21 21:00 07/12/21 19:57 Mirtazapine (Remeron) 7.5 mg HS PO 07/06/21 21:00 07/12/21 19:57 Olanzapine (ZyPREXA ZYDIS) 2.5 mg PRN Q2HR PRN PO ANXIETY / AGITATION 07/06/21 01:15 Trazodone HCl (Desyrel) 50 mg PRN QHS PRN PO INSOMNIA 07/06/21 01:15 07/08/21 20:51 Acetaminophen (Tylenol) 650 mg PRN Q4HRS PRN PO PAIN 07/06/21 10:30 Aspirin (Aspirin Enteric Coated) 81 mg DAILY PO 07/07/21 09:00 07/12/21 08:46 Atorvastatin Calcium (Lipitor) 10 mg QHS PO 07/06/21 21:00 07/12/21 19:58 Carvedilol (Coreg) 3.125 mg BIDWMEALS PO 07/06/21 17:00 07/12/21 17:00 Gabapentin (Neurontin) 300 mg BID PO 07/06/21 21:00 07/12/21 19:58 Metformin HCl (Glucophage Xr) 500 mg DAILYWBKFT PO 07/07/21 08:00 07/12/21 08:45 Multi-Ingredient Ointment (Analgesic [place]) 1 inna PRN QID PRN TP PAIN 07/06/21 10:30 UNV Phenytoin Sodium (Dilantin) 500 mg HS PO 07/06/21 21:00 07/07/21 22:27 DC 07/07/21 20:05 Tamsulosin HCl (Flomax) 0.4 mg DAILY PO 07/07/21 09:00 07/12/21 08:46 Polyethylene Glycol (miraLAX) 17 gm PRN DAILY PRN PO 1ST CHOICE CONSTIPATION 07/06/21 10:45 Non-Formulary Medication (Pravastatin Sodium ) 40 mg DAILY PO 07/07/21 09:00 UNV Phenyleph/Shark Oil/Min Oil/Petrol (Preparation H) 1 inna PRN QID PRN RC RECTAL PAIN 07/06/21 15:15 Phenytoin Sodium (Dilantin) 400 mg HS PO 07/08/21 21:00 07/11/21 23:36 DC 07/11/21 20:35 Albuterol/ Ipratropium (Combivent Respimat 20-100 Mcg) 1 puff QID INH 07/08/21 13:00 07/12/21 19:56 Docusate Sodium (Colace) 100 mg DAILY PO 07/09/21 09:00 07/12/21 08:46 Guaifenesin (Mucinex Er) 600 mg BID PO 07/08/21 21:00 07/12/21 19:57 Magnesium Hydroxide (Milk Of Magnesia) 2,400 mg PRN QHS PRN PO 2nd CHOICE CONSTIPATION 07/08/21 19:30 Cancel Phenytoin Sodium (Dilantin) 200 mg HS PO 07/12/21 21:00 07/12/21 19:57 Phenytoin Sodium (Dilantin) 100 mg DAILY PO 07/12/21 09:00 07/12/21 08:45 Current Medications Medications (Trade) Dose Ordered Sig/Aparna Route PRN Reason Start Time Stop Time Status Last Admin Dose Admin Phenytoin Sodium (Dilantin) 200 mg HS PO 07/12/21 21:00 07/12/21 19:57 Phenytoin Sodium (Dilantin) 100 mg DAILY PO 07/12/21 09:00 07/12/21 08:45 I have reviewed the current psychotropics carefully including drug interactions. Risk benefit ratio favors no change other than as noted in my dictated progress note. Diagnosis: Problems: (1) Impulse control disorder, unspecified (2) Anxiety disorder, unspecified (3) Dementia, vascular, with depression (4) Dementia, vascular, with delusions (5) Major neurocognitive disorder (6) Dementia in Alzheimer's disease with depression (7) Dementia in Alzheimer's disease with delusions (8) Dementia of the Alzheimer's type with early onset with behavioral disturbance NIK LOYA MD Jul 12, 2021 22:18
--- NOTE | 2021-07-12 22:23 | NUR ---
Pt has been attention seeking and helpless this evening. Pt yelling out in his room shaking his hands stating "I washed my hands this morning and then touched the forklift. Somebody needs to look at me. Help! Help!" Pt repeatedly yelling but eventually calmed down. Compliant with whole medications.
[2021-07-13 06:01] VITALS: BP 174/80
--- NOTE | 2021-07-13 06:23 | PDOC ---
Exam Note: Leo Note: This note is a late entry for 07/11/2021 covers elements not covered in my initial note. Subjective: The patient was seen individually in the evening of 07/11/2021 with Tenisha KOWALSKI, discussed and reviewed the chart. The patient slept 6 hours previous night. I met with him in his room. He is on a restricted unit and I had to gown with gloves and protective care for the COVID precautions. Dilantin level is 24.7 on 400 mg a day. We will reduce to 300 mg a day. He has been appearing helpless, tearful, demanding, did cooperate with showers. He is somewhat attention seeking. Review of Systems: Ambulation impaired in wheelchair. No CV, , eye, ENT system symptoms on review. Mental Status Exam: The patient is oriented to himself and situation. I met with him in his room. Speech coherent. Abstraction fair. Computation impaired. Language function intact. Mood and affect somewhat anxious, labile. Laboratory Data: Reviewed. Impression: Major neurocognitive disorder, Alzheimer, vascular with delusion, depression, behavioral disturbance. Anxiety disorder unspecified. Impulse control disorder unspecified. Plan: Continue psychotropics from initial note. I discussed with him about the Dilantin levels and the adjustments we are making. Assessment: Vital Signs/I&O: Vital Signs Date Time Temp Pulse Resp B/P (MAP) Pulse Ox O2 Delivery O2 Flow Rate FiO2 07/13/21 06:01 97.9 74 20 174/80 (111) 91 07/12/21 15:50 Room Air I & O 07/12/21 07/12/21 07/13/21 15:00 23:00 07:00 Intake Total 840 ml 120 ml Balance 840 ml 120 ml Labs: Laboratory Tests Test 07/12/21 08:04 Glucose (Fingerstick) 135 mg/dL (70-99) H Current Medications: Meds: Laboratory Tests Test 07/12/21 08:04 Glucose (Fingerstick) 135 mg/dL Current Medications Medications (Trade) Dose Ordered Sig/Aparna Route PRN Reason Start Time Stop Time Status Last Admin Dose Admin Acetaminophen (Tylenol) 650 mg PRN Q6HRS PRN PO MILD PAIN / TEMP > 100.3'F 07/06/21 00:30 Cancel Multi-Ingredient Ointment (Analgesic [place]) 1 inna PRN QID PRN TP MUSCLE PAIN 07/06/21 00:30 Al Hydroxide/Mg Hydroxide (Mylanta Plus Xs) 15 ml PRN AFTMEALHC PRN PO DYSPEPSIA 07/06/21 00:30 Magnesium Hydroxide (Milk Of Magnesia) 2,400 mg PRN QHS PRN PO 2ND CHOICE CONSTIPATION 07/06/21 00:30 07/12/21 08:46 Duloxetine HCl (Cymbalta) 20 mg HS PO 07/06/21 21:00 07/12/21 19:57 Duloxetine HCl (Cymbalta) 30 mg HS PO 07/06/21 21:00 07/12/21 19:57 Mirtazapine (Remeron) 7.5 mg HS PO 07/06/21 21:00 07/12/21 19:57 Olanzapine (ZyPREXA ZYDIS) 2.5 mg PRN Q2HR PRN PO ANXIETY / AGITATION 07/06/21 01:15 Trazodone HCl (Desyrel) 50 mg PRN QHS PRN PO INSOMNIA 07/06/21 01:15 07/08/21 20:51 Acetaminophen (Tylenol) 650 mg PRN Q4HRS PRN PO PAIN 07/06/21 10:30 Aspirin (Aspirin Enteric Coated) 81 mg DAILY PO 07/07/21 09:00 07/12/21 08:46 Atorvastatin Calcium (Lipitor) 10 mg QHS PO 07/06/21 21:00 07/12/21 19:58 Carvedilol (Coreg) 3.125 mg BIDWMEALS PO 07/06/21 17:00 07/12/21 17:00 Gabapentin (Neurontin) 300 mg BID PO 07/06/21 21:00 07/12/21 19:58 Metformin HCl (Glucophage Xr) 500 mg DAILYWBKFT PO 07/07/21 08:00 07/12/21 08:45 Multi-Ingredient Ointment (Analgesic [place]) 1 inna PRN QID PRN TP PAIN 07/06/21 10:30 UNV Phenytoin Sodium (Dilantin) 500 mg HS PO 07/06/21 21:00 07/07/21 22:27 DC 07/07/21 20:05 Tamsulosin HCl (Flomax) 0.4 mg DAILY PO 07/07/21 09:00 07/12/21 08:46 Polyethylene Glycol (miraLAX) 17 gm PRN DAILY PRN PO 1ST CHOICE CONSTIPATION 07/06/21 10:45 Non-Formulary Medication (Pravastatin Sodium ) 40 mg DAILY PO 07/07/21 09:00 UNV Phenyleph/Shark Oil/Min Oil/Petrol (Preparation H) 1 inna PRN QID PRN RC RECTAL PAIN 07/06/21 15:15 Phenytoin Sodium (Dilantin) 400 mg HS PO 07/08/21 21:00 07/11/21 23:36 DC 07/11/21 20:35 Albuterol/ Ipratropium (Combivent Respimat 20-100 Mcg) 1 puff QID INH 07/08/21 13:00 07/12/21 19:56 Docusate Sodium (Colace) 100 mg DAILY PO 07/09/21 09:00 07/12/21 08:46 Guaifenesin (Mucinex Er) 600 mg BID PO 07/08/21 21:00 07/12/21 19:57 Magnesium Hydroxide (Milk Of Magnesia) 2,400 mg PRN QHS PRN PO 2nd CHOICE CONSTIPATION 07/08/21 19:30 Cancel Phenytoin Sodium (Dilantin) 200 mg HS PO 07/12/21 21:00 07/12/21 19:57 Phenytoin Sodium (Dilantin) 100 mg DAILY PO 07/12/21 09:00 07/12/21 08:45 Current Medications Medications (Trade) Dose Ordered Sig/Aparna Route PRN Reason Start Time Stop Time Status Last Admin Dose Admin Phenytoin Sodium (Dilantin) 200 mg HS PO 07/12/21 21:00 07/12/21 19:57 Phenytoin Sodium (Dilantin) 100 mg DAILY PO 07/12/21 09:00 07/12/21 08:45 I have reviewed the current psychotropics carefully including drug interactions. Risk benefit ratio favors no change other than as noted in my dictated progress note. Diagnosis: Problems: (1) Impulse control disorder, unspecified (2) Anxiety disorder, unspecified (3) Dementia, vascular, with depression (4) Dementia, vascular, with delusions (5) Major neurocognitive disorder (6) Dementia in Alzheimer's disease with depression (7) Dementia in Alzheimer's disease with delusions (8) Dementia of the Alzheimer's type with early onset with behavioral disturbance NIK LOYA MD Jul 13, 2021 06:23
[2021-07-13] MEDS: TAMSULOSIN 0.4 MG CAP.ER.24H. PO SCH (09:21)
[2021-07-13] MEDS: GABAPENTIN 300 MG CAPSULE. PO SCH ×2 (09:21→19:59)
[2021-07-13] MEDS: PHENYTOIN SODIUM EXTENDED 100 MG CAPSULE PO SCH ×2 (09:21→19:59)
[2021-07-13] MEDS: DOCUSATE SODIUM 100 MG CAPSULE PO SCH (09:21)
[2021-07-13] MEDS: ASPIRIN ENTERIC COATED 81 MG TABLET.DR. PO SCH (09:21)
[2021-07-13] MEDS: CARVEDILOL 3.125 MG TABLET PO SCH ×2 (09:22→17:37)
[2021-07-13] MEDS: metFORMIN XR 500 MG TAB.ER.24H PO SCH (09:22)
[2021-07-13] MEDS: IPRATROPIUM/ALBUTEROL 20/100mcg/INH INHALER. INH SCH ×4 (09:22→19:58)
[2021-07-13 09:43] LABS: BASO % 1 % (0-3); EOS # 0.8 x10^3/uL (0.0-0.7); EOS % 14 % (0-3); HEMOGLOBIN 11.8 g/dL (13.0-17.5); LYMPH # 1.9 x10^3/uL (1.0-4.8); LYMPH % 31 % (24-48); MEAN CORPUSCULAR HEMOGLOBIN 34 pg (25-35); MEAN CORPUSCULAR HGB CONC 33 g/dL (31-37); MEAN CORPUSCULAR VOLUME 104 fL (79-100); MONO # 0.5 x10^3/uL (0.0-1.1); MONO % 8 % (0-9); NEUT # 2.8 x10^3uL (1.8-7.7); NEUT % 46 % (31-73); PLATELET COUNT 114 x10^3/uL (140-400); RED BLOOD COUNT 3.47 x10^6/uL (4.30-5.70); RED CELL DISTRIBUTION WIDTH 14.4 % (11.5-14.5); WHITE BLOOD COUNT 6.1 x10^3/uL (4.0-11.0)
[2021-07-13 09:57] LABS: ALBUMIN 3.3 g/dL (3.4-5.0); ALBUMIN/GLOBULIN RATIO 0.9 (1.0-1.7); CALCIUM 8.5 mg/dL (8.5-10.1); CREATININE 1.4 mg/dL (0.7-1.3); GFR 48.9; POTASSIUM 4.7 mmol/L (3.5-5.1); TOTAL BILIRUBIN 0.3 mg/dL (0.2-1.0)
[2021-07-13 13:03] LABS: % EOS 19 % (0-5); % LYMPHS 30 % (24-48); % MONOS 7 % (0-10); % SEGS 44 % (35-66)
[2021-07-13 13:04] LABS: PLT ESTIMATE DECREASED (ADEQUATE)
[2021-07-13 15:56] VITALS: BP 105/67
--- NOTE | 2021-07-13 18:17 | NUR ---
Patient has been withdrawn to his room, irritable at times, and compliant with medications. He was attention seeking and helpless occasionally. Will continue to monitor and report to oncoming shift.
[2021-07-13] MEDS: DULoxetine HCL 30 MG CAPSULE.DR PO SCH (19:58)
[2021-07-13] MEDS: DULoxetine HCL 20 MG CAPSULE.DR PO SCH (19:59)
[2021-07-13] MEDS: ATORVASTATIN CALCIUM 10 MG TABLET. PO SCH (19:59)
[2021-07-13] MEDS: MIRTAZAPINE 7.5 MG TABLET. PO SCH (19:59)
--- NOTE | 2021-07-13 22:53 | NUR ---
Pt located in his room this evening. Compliant with whole medications. Less attention seeking this evening.
[2021-07-14 05:40] VITALS: BP 167/79
[2021-07-14] MEDS: TAMSULOSIN 0.4 MG CAP.ER.24H. PO SCH (08:13)
[2021-07-14] MEDS: GABAPENTIN 300 MG CAPSULE. PO SCH ×2 (08:13→20:42)
[2021-07-14] MEDS: DOCUSATE SODIUM 100 MG CAPSULE PO SCH (08:13)
[2021-07-14] MEDS: MAGNESIUM HYDROXIDE 2,400 MG/30 ML ORAL.SUSP. PO PRN (08:13)
[2021-07-14] MEDS: metFORMIN XR 500 MG TAB.ER.24H PO SCH (08:14)
[2021-07-14] MEDS: ASPIRIN ENTERIC COATED 81 MG TABLET.DR. PO SCH (08:14)
[2021-07-14] MEDS: CARVEDILOL 3.125 MG TABLET PO SCH ×2 (08:14→17:12)
[2021-07-14] MEDS: PHENYTOIN SODIUM EXTENDED 100 MG CAPSULE PO SCH ×2 (08:14→20:43)
[2021-07-14] MEDS: IPRATROPIUM/ALBUTEROL 20/100mcg/INH INHALER. INH SCH ×4 (08:15→20:42)
--- NOTE | 2021-07-14 09:39 | PDOC ---
Exam Note: Leo Note: Late entry for 07/13/2021. Please also refer to the separate dictated note~for this date of service dictated separately.~Patient seen individually. Discussed the patient with Nursing staff reviewed the chart.~Reviewed interim history and current functioning. Reviewed vital signs,~Labs/ Radiology~and current medic ations noted below. Continue current treatment with the changes noted in the dictated addendum note Assessment: Vital Signs/I&O: Vital Signs Date Time Temp Pulse Resp B/P (MAP) Pulse Ox O2 Delivery O2 Flow Rate FiO2 07/14/21 08:14 79 167/79 07/14/21 05:40 98.0 22 92 07/12/21 15:50 Room Air I & O 07/13/21 07/13/21 07/14/21 15:00 23:00 07:00 Intake Total 480 ml 720 ml Balance 480 ml 720 ml Labs: Laboratory Tests Test 07/14/21 07:17 Glucose (Fingerstick) 125 mg/dL (70-99) H Current Medications: Meds: Laboratory Tests Test 07/14/21 07:17 Glucose (Fingerstick) 125 mg/dL Current Medications Medications (Trade) Dose Ordered Sig/Aparna Route PRN Reason Start Time Stop Time Status Last Admin Dose Admin Acetaminophen (Tylenol) 650 mg PRN Q6HRS PRN PO MILD PAIN / TEMP > 100.3'F 07/06/21 00:30 Cancel Multi-Ingredient Ointment (Analgesic [place]) 1 inna PRN QID PRN TP MUSCLE PAIN 07/06/21 00:30 Al Hydroxide/Mg Hydroxide (Mylanta Plus Xs) 15 ml PRN AFTMEALHC PRN PO DYSPEPSIA 07/06/21 00:30 Magnesium Hydroxide (Milk Of Magnesia) 2,400 mg PRN QHS PRN PO 2ND CHOICE CONSTIPATION 07/06/21 00:30 07/14/21 08:13 Duloxetine HCl (Cymbalta) 20 mg HS PO 07/06/21 21:00 07/13/21 19:59 Duloxetine HCl (Cymbalta) 30 mg HS PO 07/06/21 21:00 07/13/21 19:58 Mirtazapine (Remeron) 7.5 mg HS PO 07/06/21 21:00 07/13/21 19:59 Olanzapine (ZyPREXA ZYDIS) 2.5 mg PRN Q2HR PRN PO ANXIETY / AGITATION 07/06/21 01:15 Trazodone HCl (Desyrel) 50 mg PRN QHS PRN PO INSOMNIA 07/06/21 01:15 07/08/21 20:51 Acetaminophen (Tylenol) 650 mg PRN Q4HRS PRN PO PAIN 07/06/21 10:30 Aspirin (Aspirin Enteric Coated) 81 mg DAILY PO 07/07/21 09:00 07/14/21 08:14 Atorvastatin Calcium (Lipitor) 10 mg QHS PO 07/06/21 21:00 07/13/21 19:59 Carvedilol (Coreg) 3.125 mg BIDWMEALS PO 07/06/21 17:00 07/14/21 08:14 Gabapentin (Neurontin) 300 mg BID PO 07/06/21 21:00 07/14/21 08:13 Metformin HCl (Glucophage Xr) 500 mg DAILYWBKFT PO 07/07/21 08:00 07/14/21 08:14 Multi-Ingredient Ointment (Analgesic [place]) 1 inna PRN QID PRN TP PAIN 07/06/21 10:30 UNV Phenytoin Sodium (Dilantin) 500 mg HS PO 07/06/21 21:00 07/07/21 22:27 DC 07/07/21 20:05 Tamsulosin HCl (Flomax) 0.4 mg DAILY PO 07/07/21 09:00 07/14/21 08:13 Polyethylene Glycol (miraLAX) 17 gm PRN DAILY PRN PO 1ST CHOICE CONSTIPATION 07/06/21 10:45 Non-Formulary Medication (Pravastatin Sodium ) 40 mg DAILY PO 07/07/21 09:00 UNV Phenyleph/Shark Oil/Min Oil/Petrol (Preparation H) 1 inna PRN QID PRN RC RECTAL PAIN 07/06/21 15:15 Phenytoin Sodium (Dilantin) 400 mg HS PO 07/08/21 21:00 07/11/21 23:36 DC 07/11/21 20:35 Albuterol/ Ipratropium (Combivent Respimat 20-100 Mcg) 1 puff QID INH 07/08/21 13:00 07/14/21 08:15 Docusate Sodium (Colace) 100 mg DAILY PO 07/09/21 09:00 07/14/21 08:13 Guaifenesin (Mucinex Er) 600 mg BID PO 07/08/21 21:00 07/14/21 08:14 Magnesium Hydroxide (Milk Of Magnesia) 2,400 mg PRN QHS PRN PO 2nd CHOICE CONSTIPATION 07/08/21 19:30 Cancel Phenytoin Sodium (Dilantin) 200 mg HS PO 07/12/21 21:00 07/13/21 19:59 Phenytoin Sodium (Dilantin) 100 mg DAILY PO 07/12/21 09:00 07/14/21 08:14 I have reviewed the current psychotropics carefully including drug interactions. Risk benefit ratio favors no change other than as noted in my dictated progress note. Diagnosis: Problems: (1) Impulse control disorder, unspecified (2) Anxiety disorder, unspecified (3) Dementia, vascular, with depression (4) Dementia, vascular, with delusions (5) Major neurocognitive disorder (6) Dementia in Alzheimer's disease with depression (7) Dementia in Alzheimer's disease with delusions (8) Dementia of the Alzheimer's type with early onset with behavioral disturbance NIK LOYA MD Jul 14, 2021 09:39
--- NOTE | 2021-07-14 10:24 | NUR ---
Nurse Note Patient up in room, coughing thick foamy sputum with a tinge of brown, Lungs with wheezing bilateral. Continues to be medication comitant. Up in dining room for meals. No aggression towards staff.
--- NOTE | 2021-07-14 10:35 | NUR ---
Nurse Note Patient continues with productive cough, complaints of right chest pain. Dr. Niño notified with telephone orders to get a Chest X ray, CBC, CMP.
--- NOTE | 2021-07-14 11:59 | RAD ---
EXAM: AP View of the chest DATE: 07/14/2021 11:15 AM INDICATION: Reason: Productive cough, wheezing bilateral / Spl. Instructions: / History: COMPARISON: 06/23/2021 FINDINGS: The heart is not enlarged. Mediastinal and hilar contours are normal. Patchy opacities right lung base likely atelectasis or developing consolidation. No pleural effusion or pneumothorax. IMPRESSION: Patchy opacities right lung base likely atelectasis or developing consolidation. Electronically signed by: Jake Hamilton MD (07/14/2021 11:57 AM) [id number]
[2021-07-14 12:41] LABS: BASO % 1 % (0-3); EOS # 0.8 x10^3/uL (0.0-0.7); EOS % 12 % (0-3); HEMATOCRIT 33.9 % (39.0-53.0); HEMOGLOBIN 11.2 g/dL (13.0-17.5); LYMPH # 1.8 x10^3/uL (1.0-4.8); LYMPH % 28 % (24-48); MEAN CORPUSCULAR HEMOGLOBIN 34 pg (25-35); MEAN CORPUSCULAR HGB CONC 33 g/dL (31-37); MEAN CORPUSCULAR VOLUME 103 fL (79-100); MONO # 0.7 x10^3/uL (0.0-1.1); MONO % 11 % (0-9); NEUT # 3.2 x10^3uL (1.8-7.7); NEUT % 49 % (31-73); PLATELET COUNT 105 x10^3/uL (140-400); RED CELL DISTRIBUTION WIDTH 14.4 % (11.5-14.5); WHITE BLOOD COUNT 6.6 x10^3/uL (4.0-11.0)
[2021-07-14 12:59] LABS: ALBUMIN 3.1 g/dL (3.4-5.0); ALBUMIN/GLOBULIN RATIO 0.9 (1.0-1.7); CALCIUM 8.5 mg/dL (8.5-10.1); CREATININE 1.3 mg/dL (0.7-1.3); GFR 53.3; POTASSIUM 4.5 mmol/L (3.5-5.1); TOTAL BILIRUBIN 0.2 mg/dL (0.2-1.0); TOTAL PROTEIN 6.4 g/dL (6.4-8.2)
--- NOTE | 2021-07-14 13:07 | NUR ---
WEEKLY ACTIVITY THERAPY NOTE Date of Admission: 07/06/21 Date of AT Assessment: 07/08 Precipitating behaviors that initiated intake and admission:Patient was reported to believe that his money was being stolen, his dog was being murdered, trying to leave the facility, disoriented, being tearful and crying frequently, and having sexually inappropriate conversations with other residents Goal aimed:increase socialization and engagement Initial Goal: Pt will participate in at least three individual or group Activity Therapy sessions per week. Weekly progress towards goal: achieved, 3/3 Group participation level: 3 full Weekly highlights: listened and sang to music on Wednesday and Wednesday, pt found most states independently during songs and states activity Wednesday Behaviors observed: pleasant and calm Plan: no change to goal Beneficial adaptations: music and socialization
--- NOTE | 2021-07-14 14:46 | NUR ---
Weekly Note: Pt is eating approximately 75% of his meals and averaging 6 hours of sleep at night. Pt continues to demonstrate some attention seeking or helpless behaviors. Pt has not been aggressive. He has participated in some groups on the unit where he has been pleasant and engaged. He enjoys music and yodeling and was able to identify states on a map during recreational therapy group. Pt's dilantin level is being checked. Awaiting results. Pt has had a lot of productive coughing. Chest X ray, CBC, CMP has been ordered. Awaiting results. Referrals being sent for placement.
[2021-07-14 15:42] VITALS: BP 141/68
[2021-07-14] MEDS: DULoxetine HCL 30 MG CAPSULE.DR PO SCH (20:42)
[2021-07-14] MEDS: DULoxetine HCL 20 MG CAPSULE.DR PO SCH (20:42)
[2021-07-14] MEDS: MIRTAZAPINE 7.5 MG TABLET. PO SCH (20:42)
[2021-07-14] MEDS: ATORVASTATIN CALCIUM 10 MG TABLET. PO SCH (20:42)
--- NOTE | 2021-07-14 22:03 | PDOC ---
Exam Note: Leo Note: Please also refer to the separate dictated note~for this date of service dictated separately.~Patient seen individually. Discussed the patient with Nursing staff reviewed the chart.~Reviewed interim history and current functioning. Reviewed vital signs,~Labs/ Radiology~and current medications noted below. Continue current treatment with the changes noted in the dictated addendum note Assessment: Vital Signs/I&O: Vital Signs Date Time Temp Pulse Resp B/P (MAP) Pulse Ox O2 Delivery O2 Flow Rate FiO2 07/14/21 17:12 74 141/68 07/14/21 15:42 97.9 17 97 Room Air I & O 07/13/21 07/13/21 07/14/21 15:00 23:00 07:00 Intake Total 480 ml 720 ml Balance 480 ml 720 ml Labs: Laboratory Tests Test 07/14/21 07:17 07/14/21 12:31 Glucose (Fingerstick) 125 mg/dL (70-99) H White Blood Count 6.6 x10^3/uL (4.0-11.0) Red Blood Count 3.30 x10^6/uL (4.30-5.70) L Hemoglobin 11.2 g/dL (13.0-17.5) L Hematocrit 33.9 % (39.0-53.0) L Mean Corpuscular Volume 103 fL (79-100) H Mean Corpuscular Hemoglobin 34 pg (25-35) Mean Corpuscular Hemoglobin Concent 33 g/dL (31-37) Red Cell Distribution Width 14.4 % (11.5-14.5) Platelet Count 105 x10^3/uL (140-400) L Neutrophils (%) (Auto) 49 % (31-73) Lymphocytes (%) (Auto) 28 % (24-48) Monocytes (%) (Auto) 11 % (0-9) H Eosinophils (%) (Auto) 12 % (0-3) H Basophils (%) (Auto) 1 % (0-3) Neutrophils # (Auto) 3.2 x10^3uL (1.8-7.7) Lymphocytes # (Auto) 1.8 x10^3/uL (1.0-4.8) Monocytes # (Auto) 0.7 x10^3/uL (0.0-1.1) Eosinophils # (Auto) 0.8 x10^3/uL (0.0-0.7) H Basophils # (Auto) 0.0 x10^3/uL (0.0-0.2) Sodium Level 143 mmol/L (136-145) Potassium Level 4.5 mmol/L (3.5-5.1) Chloride Level 107 mmol/L (98-107) Carbon Dioxide Level 34 mmol/L (21-32) H Anion Gap 2 (6-14) L Blood Urea Nitrogen 42 mg/dL (8-26) H Creatinine 1.3 mg/dL (0.7-1.3) Estimated GFR (Cockcroft-Gault) 53.3 BUN/Creatinine Ratio 32 (6-20) H Glucose Level 142 mg/dL (70-99) H Calcium Level 8.5 mg/dL (8.5-10.1) Total Bilirubin 0.2 mg/dL (0.2-1.0) Aspartate Amino Transferase (AST) 20 U/L (15-37) Alanine Aminotransferase (ALT) 21 U/L (16-63) Alkaline Phosphatase 113 U/L (46-116) Total Protein 6.4 g/dL (6.4-8.2) Albumin 3.1 g/dL (3.4-5.0) L Albumin/Globulin Ratio 0.9 (1.0-1.7) L Current Medications: Meds: Laboratory Tests Test 07/14/21 07:17 07/14/21 12:31 Glucose (Fingerstick) 125 mg/dL White Blood Count 6.6 x10^3/uL Red Blood Count 3.30 x10^6/uL Hemoglobin 11.2 g/dL Hematocrit 33.9 % Mean Corpuscular Volume 103 fL Mean Corpuscular Hemoglobin 34 pg Mean Corpuscular Hemoglobin Concent 33 g/dL Red Cell Distribution Width 14.4 % Platelet Count 105 x10^3/uL Neutrophils (%) (Auto) 49 % Lymphocytes (%) (Auto) 28 % Monocytes (%) (Auto) 11 % Eosinophils (%) (Auto) 12 % Basophils (%) (Auto) 1 % Neutrophils # (Auto) 3.2 x10^3uL Lymphocytes # (Auto) 1.8 x10^3/uL Monocytes # (Auto) 0.7 x10^3/uL Eosinophils # (Auto) 0.8 x10^3/uL Basophils # (Auto) 0.0 x10^3/uL Sodium Level 143 mmol/L Potassium Level 4.5 mmol/L Chloride Level 107 mmol/L Carbon Dioxide Level 34 mmol/L Anion Gap 2 Blood Urea Nitrogen 42 mg/dL Creatinine 1.3 mg/dL Estimated GFR (Cockcroft-Gault) 53.3 BUN/Creatinine Ratio 32 Glucose Level 142 mg/dL Calcium Level 8.5 mg/dL Total Bilirubin 0.2 mg/dL Aspartate Amino Transf (AST/SGOT) 20 U/L Alanine Aminotransferase (ALT/SGPT) 21 U/L Alkaline Phosphatase 113 U/L Total Protein 6.4 g/dL Albumin 3.1 g/dL Albumin/Globulin Ratio 0.9 Current Medications Medications (Trade) Dose Ordered Sig/Aparna Route PRN Reason Start Time Stop Time Status Last Admin Dose Admin Acetaminophen (Tylenol) 650 mg PRN Q6HRS PRN PO MILD PAIN / TEMP > 100.3'F 07/06/21 00:30 Cancel Multi-Ingredient Ointment (Analgesic [place]) 1 inna PRN QID PRN TP MUSCLE PAIN 07/06/21 00:30 Al Hydroxide/Mg Hydroxide (Mylanta Plus Xs) 15 ml PRN AFTMEALHC PRN PO DYSPEPSIA 07/06/21 00:30 Magnesium Hydroxide (Milk Of Magnesia) 2,400 mg PRN QHS PRN PO 2ND CHOICE CONSTIPATION 07/06/21 00:30 07/14/21 08:13 Duloxetine HCl (Cymbalta) 20 mg HS PO 07/06/21 21:00 07/14/21 20:42 Duloxetine HCl (Cymbalta) 30 mg HS PO 07/06/21 21:00 07/14/21 20:42 Mirtazapine (Remeron) 7.5 mg HS PO 07/06/21 21:00 07/14/21 20:42 Olanzapine (ZyPREXA ZYDIS) 2.5 mg PRN Q2HR PRN PO ANXIETY / AGITATION 07/06/21 01:15 Trazodone HCl (Desyrel) 50 mg PRN QHS PRN PO INSOMNIA 07/06/21 01:15 07/08/21 20:51 Acetaminophen (Tylenol) 650 mg PRN Q4HRS PRN PO PAIN 07/06/21 10:30 Aspirin (Aspirin Enteric Coated) 81 mg DAILY PO 07/07/21 09:00 07/14/21 08:14 Atorvastatin Calcium (Lipitor) 10 mg QHS PO 07/06/21 21:00 07/14/21 20:42 Carvedilol (Coreg) 3.125 mg BIDWMEALS PO 07/06/21 17:00 07/14/21 17:12 Gabapentin (Neurontin) 300 mg BID PO 07/06/21 21:00 07/14/21 20:42 Metformin HCl (Glucophage Xr) 500 mg DAILYWBKFT PO 07/07/21 08:00 07/14/21 08:14 Multi-Ingredient Ointment (Analgesic [place]) 1 inna PRN QID PRN TP PAIN 07/06/21 10:30 UNV Phenytoin Sodium (Dilantin) 500 mg HS PO 07/06/21 21:00 07/07/21 22:27 DC 07/07/21 20:05 Tamsulosin HCl (Flomax) 0.4 mg DAILY PO 07/07/21 09:00 07/14/21 08:13 Polyethylene Glycol (miraLAX) 17 gm PRN DAILY PRN PO 1ST CHOICE CONSTIPATION 07/06/21 10:45 Non-Formulary Medication (Pravastatin Sodium ) 40 mg DAILY PO 07/07/21 09:00 UNV Phenyleph/Shark Oil/Min Oil/Petrol (Preparation H) 1 inna PRN QID PRN RC RECTAL PAIN 07/06/21 15:15 Phenytoin Sodium (Dilantin) 400 mg HS PO 07/08/21 21:00 07/11/21 23:36 DC 07/11/21 20:35 Albuterol/ Ipratropium (Combivent Respimat 20-100 Mcg) 1 puff QID INH 07/08/21 13:00 07/14/21 20:42 Docusate Sodium (Colace) 100 mg DAILY PO 07/09/21 09:00 07/14/21 08:13 Guaifenesin (Mucinex Er) 600 mg BID PO 07/08/21 21:00 07/14/21 20:42 Magnesium Hydroxide (Milk Of Magnesia) 2,400 mg PRN QHS PRN PO 2nd CHOICE CONSTIPATION 07/08/21 19:30 Cancel Phenytoin Sodium (Dilantin) 200 mg HS PO 07/12/21 21:00 07/14/21 20:43 Phenytoin Sodium (Dilantin) 100 mg DAILY PO 07/12/21 09:00 07/14/21 08:14 I have reviewed the current psychotropics carefully including drug interactions. Risk benefit ratio favors no change other than as noted in my dictated progress note. Diagnosis: Problems: (1) Impulse control disorder, unspecified (2) Anxiety disorder, unspecified (3) Dementia, vascular, with depression (4) Dementia, vascular, with delusions (5) Major neurocognitive disorder (6) Dementia in Alzheimer's disease with depression (7) Dementia in Alzheimer's disease with delusions (8) Dementia of the Alzheimer's type with early onset with behavioral disturbance NIK LOYA MD Jul 14, 2021 22:03
--- NOTE | 2021-07-14 23:15 | NUR ---
Pt located in his room all evening. Compliant with whole medications. Pt continues to have wheezes throughout. No coughing noted this evening.
[2021-07-15 05:35] VITALS: BP 165/80
[2021-07-15] MEDS: IPRATROPIUM/ALBUTEROL 20/100mcg/INH INHALER. INH SCH ×4 (08:14→20:32)
[2021-07-15] MEDS: ASPIRIN ENTERIC COATED 81 MG TABLET.DR. PO SCH (08:15)
[2021-07-15] MEDS: DOCUSATE SODIUM 100 MG CAPSULE PO SCH (08:15)
[2021-07-15] MEDS: metFORMIN XR 500 MG TAB.ER.24H PO SCH (08:15)
[2021-07-15] MEDS: TAMSULOSIN 0.4 MG CAP.ER.24H. PO SCH (08:15)
[2021-07-15] MEDS: CARVEDILOL 3.125 MG TABLET PO SCH ×2 (08:16→17:24)
[2021-07-15] MEDS: GABAPENTIN 300 MG CAPSULE. PO SCH ×2 (08:16→20:33)
[2021-07-15] MEDS: PHENYTOIN SODIUM EXTENDED 100 MG CAPSULE PO SCH ×2 (08:16→20:33)
[2021-07-15 15:24] VITALS: BP 138/64
[2021-07-15 18:28] LABS: PHENY 21.7 mcg/mL (10.0-20.0)
[2021-07-15] MEDS: ATORVASTATIN CALCIUM 10 MG TABLET. PO SCH (20:33)
[2021-07-15] MEDS: DULoxetine HCL 30 MG CAPSULE.DR PO SCH (20:33)
[2021-07-15] MEDS: DULoxetine HCL 20 MG CAPSULE.DR PO SCH (20:33)
[2021-07-15] MEDS: MIRTAZAPINE 7.5 MG TABLET. PO SCH (20:33)
--- NOTE | 2021-07-15 22:05 | PDOC ---
Exam Note: Leo Note: This note is a late entry for 07/12/2021 covers elements not covered in my initial note. Subjective: The patient was reviewed on telehealth rounds in the evening of 07/12/2021 with Tenisha KOWALSKI due to COVID-19 pandemic, discussed and reviewed the chart. The patient slept 6-1/4 hours previous night. He has been somewhat withdrawn, spends much time in his room, anxious helpless and needy according to the nursing report but not aggressive or disruptive. He does redirect. Review of Systems: Ambulation impaired in wheelchair. No CV, , eye, ENT system symptoms on review. No seizure activity noted. Mental Status Exam: The patient is oriented to himself and situation. Speech has some latency, coherent. Abstraction fair. Computation impaired. Mood and affect withdrawn but improved. Laboratory Data: Reviewed. Impression: Major neurocognitive disorder, Alzheimer, vascular with delusion, depression, behavioral disturbance. Anxiety disorder unspecified. Impulse control disorder unspecified. Plan: Continue psychotropics from initial note. Assessment: Vital Signs/I&O: Vital Signs Date Time Temp Pulse Resp B/P (MAP) Pulse Ox O2 Delivery O2 Flow Rate FiO2 07/15/21 17:24 70 138/64 07/15/21 15:24 98.3 17 96 Room Air I & O 07/14/21 07/14/21 07/15/21 14:59 22:59 06:59 Intake Total 480 ml 600 ml Balance 480 ml 600 ml Labs: Laboratory Tests Test 07/15/21 07:44 07/15/21 18:07 Glucose (Fingerstick) 135 mg/dL (70-99) H Phenytoin (Dilantin) Level 21.7 mcg/mL (10.0-20.0) H Phenytoin Last Dose Date 07/14/21 Phenytoin Last Dose Time 2100 Current Medications: Meds: Laboratory Tests Test 07/15/21 07:44 07/15/21 18:07 Glucose (Fingerstick) 135 mg/dL Phenytoin (Dilantin) Level 21.7 mcg/mL Phenytoin Last Dose Date 07/14/21 Phenytoin Last Dose Time 2100 Current Medications Medications (Trade) Dose Ordered Sig/Aparna Route PRN Reason Start Time Stop Time Status Last Admin Dose Admin Acetaminophen (Tylenol) 650 mg PRN Q6HRS PRN PO MILD PAIN / TEMP > 100.3'F 07/06/21 00:30 Cancel Multi-Ingredient Ointment (Analgesic [place]) 1 inna PRN QID PRN TP MUSCLE PAIN 07/06/21 00:30 Al Hydroxide/Mg Hydroxide (Mylanta Plus Xs) 15 ml PRN AFTMEALHC PRN PO DYSPEPSIA 07/06/21 00:30 Magnesium Hydroxide (Milk Of Magnesia) 2,400 mg PRN QHS PRN PO 2ND CHOICE CONSTIPATION 07/06/21 00:30 07/14/21 08:13 Duloxetine HCl (Cymbalta) 20 mg HS PO 07/06/21 21:00 07/15/21 20:33 Duloxetine HCl (Cymbalta) 30 mg HS PO 07/06/21 21:00 07/15/21 20:33 Mirtazapine (Remeron) 7.5 mg HS PO 07/06/21 21:00 07/15/21 20:33 Olanzapine (ZyPREXA ZYDIS) 2.5 mg PRN Q2HR PRN PO ANXIETY / AGITATION 07/06/21 01:15 Trazodone HCl (Desyrel) 50 mg PRN QHS PRN PO INSOMNIA 07/06/21 01:15 07/08/21 20:51 Acetaminophen (Tylenol) 650 mg PRN Q4HRS PRN PO PAIN 07/06/21 10:30 Aspirin (Aspirin Enteric Coated) 81 mg DAILY PO 07/07/21 09:00 07/15/21 08:15 Atorvastatin Calcium (Lipitor) 10 mg QHS PO 07/06/21 21:00 07/15/21 20:33 Carvedilol (Coreg) 3.125 mg BIDWMEALS PO 07/06/21 17:00 07/15/21 17:24 Gabapentin (Neurontin) 300 mg BID PO 07/06/21 21:00 07/15/21 20:33 Metformin HCl (Glucophage Xr) 500 mg DAILYWBKFT PO 07/07/21 08:00 07/15/21 08:15 Multi-Ingredient Ointment (Analgesic [place]) 1 inna PRN QID PRN TP PAIN 07/06/21 10:30 UNV Phenytoin Sodium (Dilantin) 500 mg HS PO 07/06/21 21:00 07/07/21 22:27 DC 07/07/21 20:05 Tamsulosin HCl (Flomax) 0.4 mg DAILY PO 07/07/21 09:00 07/15/21 08:15 Polyethylene Glycol (miraLAX) 17 gm PRN DAILY PRN PO 1ST CHOICE CONSTIPATION 07/06/21 10:45 Non-Formulary Medication (Pravastatin Sodium ) 40 mg DAILY PO 07/07/21 09:00 UNV Phenyleph/Shark Oil/Min Oil/Petrol (Preparation H) 1 inna PRN QID PRN RC RECTAL PAIN 07/06/21 15:15 Phenytoin Sodium (Dilantin) 400 mg HS PO 07/08/21 21:00 07/11/21 23:36 DC 07/11/21 20:35 Albuterol/ Ipratropium (Combivent Respimat 20-100 Mcg) 1 puff QID INH 07/08/21 13:00 07/15/21 20:32 Docusate Sodium (Colace) 100 mg DAILY PO 07/09/21 09:00 07/15/21 08:15 Guaifenesin (Mucinex Er) 600 mg BID PO 07/08/21 21:00 07/15/21 20:33 Magnesium Hydroxide (Milk Of Magnesia) 2,400 mg PRN QHS PRN PO 2nd CHOICE CONSTIPATION 07/08/21 19:30 Cancel Phenytoin Sodium (Dilantin) 200 mg HS PO 07/12/21 21:00 07/15/21 20:33 Phenytoin Sodium (Dilantin) 100 mg DAILY PO 07/12/21 09:00 07/15/21 08:16 I have reviewed the current psychotropics carefully including drug interactions. Risk benefit ratio favors no change other than as noted in my dictated progress note. Diagnosis: Problems: (1) Impulse control disorder, unspecified (2) Anxiety disorder, unspecified (3) Dementia, vascular, with depression (4) Dementia, vascular, with delusions (5) Major neurocognitive disorder (6) Dementia in Alzheimer's disease with depression (7) Dementia in Alzheimer's disease with delusions (8) Dementia of the Alzheimer's type with early onset with behavioral disturbance NIK LOYA MD Jul 15, 2021 22:05
--- NOTE | 2021-07-15 22:18 | PDOC ---
Exam Note: Leo Note: This note is a late entry for 07/13/2021 covers elements not covered in my initial note. Subjective: The patient was seen on video telehealth services in the evening of 07/13/2021 with Zion KOWALSKI due to COVID-19 pandemic, discussed and reviewed the chart. The patient slept 6-1/4 hours previous night. He is somewhat attention seeking, helpless. He remains somewhat anxious but appreciative at times of the care provided by the nursing staff. Review of Systems: Ambulation impaired in wheelchair. No CV, , pulmonary, eye, ENT system symptoms on review. He has vague somatic symptoms. Mental Status Exam: The patient is oriented to himself and situation. Speech has some latency, coherent. Abstraction fair. Computation impaired. Language function intact. Mood and affect withdrawn. Laboratory Data: Reviewed. Impression: Major neurocognitive disorder, Alzheimer, vascular with delusion, depression, behavioral disturbance. Anxiety disorder unspecified. Impulse control disorder unspecified. Plan: Continue psychotropics from initial note. Assessment: Vital Signs/I&O: Vital Signs Date Time Temp Pulse Resp B/P (MAP) Pulse Ox O2 Delivery O2 Flow Rate FiO2 07/15/21 17:24 70 138/64 07/15/21 15:24 98.3 17 96 Room Air I & O0 07/14/21 07/14/21 07/15/21 15:00 23:00 07:00 Intake Total 480 ml 600 ml Balance 480 ml 600 ml Labs: Laboratory Tests Test 07/15/21 07:44 07/15/21 18:07 Glucose (Fingerstick) 135 mg/dL (70-99) H Phenytoin (Dilantin) Level 21.7 mcg/mL (10.0-20.0) H Phenytoin Last Dose Date 07/14/21 Phenytoin Last Dose Time 2100 Current Medications: Meds: Laboratory Tests Test 07/15/21 07:44 07/15/21 18:07 Glucose (Fingerstick) 135 mg/dL Phenytoin (Dilantin) Level 21.7 mcg/mL Phenytoin Last Dose Date 07/14/21 Phenytoin Last Dose Time 2100 Current Medications Medications (Trade) Dose Ordered Sig/Aparna Route PRN Reason Start Time Stop Time Status Last Admin Dose Admin Acetaminophen (Tylenol) 650 mg PRN Q6HRS PRN PO MILD PAIN / TEMP > 100.3'F 07/06/21 00:30 Cancel Multi-Ingredient Ointment (Analgesic [place]) 1 inna PRN QID PRN TP MUSCLE PAIN 07/06/21 00:30 Al Hydroxide/Mg Hydroxide (Mylanta Plus Xs) 15 ml PRN AFTMEALHC PRN PO DYSPEPSIA 07/06/21 00:30 Magnesium Hydroxide (Milk Of Magnesia) 2,400 mg PRN QHS PRN PO 2ND CHOICE CONSTIPATION 07/06/21 00:30 07/14/21 08:13 Duloxetine HCl (Cymbalta) 20 mg HS PO 07/06/21 21:00 07/15/21 20:33 Duloxetine HCl (Cymbalta) 30 mg HS PO 07/06/21 21:00 07/15/21 20:33 Mirtazapine (Remeron) 7.5 mg HS PO 07/06/21 21:00 07/15/21 20:33 Olanzapine (ZyPREXA ZYDIS) 2.5 mg PRN Q2HR PRN PO ANXIETY / AGITATION 07/06/21 01:15 Trazodone HCl (Desyrel) 50 mg PRN QHS PRN PO INSOMNIA 07/06/21 01:15 07/08/21 20:51 Acetaminophen (Tylenol) 650 mg PRN Q4HRS PRN PO PAIN 07/06/21 10:30 Aspirin (Aspirin Enteric Coated) 81 mg DAILY PO 07/07/21 09:00 07/15/21 08:15 Atorvastatin Calcium (Lipitor) 10 mg QHS PO 07/06/21 21:00 07/15/21 20:33 Carvedilol (Coreg) 3.125 mg BIDWMEALS PO 07/06/21 17:00 07/15/21 17:24 Gabapentin (Neurontin) 300 mg BID PO 07/06/21 21:00 07/15/21 20:33 Metformin HCl (Glucophage Xr) 500 mg DAILYWBKFT PO 07/07/21 08:00 07/15/21 08:15 Multi-Ingredient Ointment (Analgesic [place]) 1 inna PRN QID PRN TP PAIN 07/06/21 10:30 UNV Phenytoin Sodium (Dilantin) 500 mg HS PO 07/06/21 21:00 07/07/21 22:27 DC 07/07/21 20:05 Tamsulosin HCl (Flomax) 0.4 mg DAILY PO 07/07/21 09:00 07/15/21 08:15 Polyethylene Glycol (miraLAX) 17 gm PRN DAILY PRN PO 1ST CHOICE CONSTIPATION 07/06/21 10:45 Non-Formulary Medication (Pravastatin Sodium ) 40 mg DAILY PO 07/07/21 09:00 UNV Phenyleph/Shark Oil/Min Oil/Petrol (Preparation H) 1 inna PRN QID PRN RC RECTAL PAIN 07/06/21 15:15 Phenytoin Sodium (Dilantin) 400 mg HS PO 07/08/21 21:00 07/11/21 23:36 DC 07/11/21 20:35 Albuterol/ Ipratropium (Combivent Respimat 20-100 Mcg) 1 puff QID INH 07/08/21 13:00 07/15/21 20:32 Docusate Sodium (Colace) 100 mg DAILY PO 07/09/21 09:00 07/15/21 08:15 Guaifenesin (Mucinex Er) 600 mg BID PO 07/08/21 21:00 07/15/21 20:33 Magnesium Hydroxide (Milk Of Magnesia) 2,400 mg PRN QHS PRN PO 2nd CHOICE CONSTIPATION 07/08/21 19:30 Cancel Phenytoin Sodium (Dilantin) 200 mg HS PO 07/12/21 21:00 07/15/21 20:33 Phenytoin Sodium (Dilantin) 100 mg DAILY PO 07/12/21 09:00 07/15/21 08:16 I have reviewed the current psychotropics carefully including drug interactions. Risk benefit ratio favors no change other than as noted in my dictated progress note. Diagnosis: Problems: (1) Impulse control disorder, unspecified (2) Anxiety disorder, unspecified (3) Dementia, vascular, with depression (4) Dementia, vascular, with delusions (5) Major neurocognitive disorder (6) Dementia in Alzheimer's disease with depression (7) Dementia in Alzheimer's disease with delusions (8) Dementia of the Alzheimer's type with early onset with behavioral disturbance NIK LOYA MD Jul 15, 2021 22:18
--- NOTE | 2021-07-15 22:32 | PDOC ---
Exam Note: Leo Note: Please also refer to the separate dictated note~for this date of service dictated separately.~Patient seen individually. Discussed the patient with Nursing staff reviewed the chart.~Reviewed interim history and current functioning. Reviewed vital signs,~Labs/ Radiology~and current medications noted below. Continue current treatment with the changes noted in the dictated addendum note Assessment: Vital Signs/I&O: Vital Signs Date Time Temp Pulse Resp B/P (MAP) Pulse Ox O2 Delivery O2 Flow Rate FiO2 07/15/21 17:24 70 138/64 07/15/21 15:24 98.3 17 96 Room Air I & O 07/14/21 07/14/21 07/15/21 15:00 23:00 07:00 Intake Total 480 ml 600 ml Balance 480 ml 600 ml Labs: Laboratory Tests Test 07/15/21 07:44 07/15/21 18:07 Glucose (Fingerstick) 135 mg/dL (70-99) H Phenytoin (Dilantin) Level 21.7 mcg/mL (10.0-20.0) H Phenytoin Last Dose Date 07/14/21 Phenytoin Last Dose Time 2100 Current Medications: Meds: Laboratory Tests Test 07/15/21 07:44 07/15/21 18:07 Glucose (Fingerstick) 135 mg/dL Phenytoin (Dilantin) Level 21.7 mcg/mL Phenytoin Last Dose Date 07/14/21 Phenytoin Last Dose Time 2100 Current Medications Medications (Trade) Dose Ordered Sig/Aparna Route PRN Reason Start Time Stop Time Status Last Admin Dose Admin Acetaminophen (Tylenol) 650 mg PRN Q6HRS PRN PO MILD PAIN / TEMP > 100.3'F 07/06/21 00:30 Cancel Multi-Ingredient Ointment (Analgesic [place]) 1 inna PRN QID PRN TP MUSCLE PAIN 07/06/21 00:30 Al Hydroxide/Mg Hydroxide (Mylanta Plus Xs) 15 ml PRN AFTMEALHC PRN PO DYSPEPSIA 07/06/21 00:30 Magnesium Hydroxide (Milk Of Magnesia) 2,400 mg PRN QHS PRN PO 2ND CHOICE CONSTIPATION 07/06/21 00:30 07/14/21 08:13 Duloxetine HCl (Cymbalta) 20 mg HS PO 07/06/21 21:00 07/15/21 20:33 Duloxetine HCl (Cymbalta) 30 mg HS PO 07/06/21 21:00 07/15/21 20:33 Mirtazapine (Remeron) 7.5 mg HS PO 07/06/21 21:00 07/15/21 20:33 Olanzapine (ZyPREXA ZYDIS) 2.5 mg PRN Q2HR PRN PO ANXIETY / AGITATION 07/06/21 01:15 Trazodone HCl (Desyrel) 50 mg PRN QHS PRN PO INSOMNIA 07/06/21 01:15 07/08/21 20:51 Acetaminophen (Tylenol) 650 mg PRN Q4HRS PRN PO PAIN 07/06/21 10:30 Aspirin (Aspirin Enteric Coated) 81 mg DAILY PO 07/07/21 09:00 07/15/21 08:15 Atorvastatin Calcium (Lipitor) 10 mg QHS PO 07/06/21 21:00 07/15/21 20:33 Carvedilol (Coreg) 3.125 mg BIDWMEALS PO 07/06/21 17:00 07/15/21 17:24 Gabapentin (Neurontin) 300 mg BID PO 07/06/21 21:00 07/15/21 20:33 Metformin HCl (Glucophage Xr) 500 mg DAILYWBKFT PO 07/07/21 08:00 07/15/21 08:15 Multi-Ingredient Ointment (Analgesic [place]) 1 inna PRN QID PRN TP PAIN 07/06/21 10:30 UNV Phenytoin Sodium (Dilantin) 500 mg HS PO 07/06/21 21:00 07/07/21 22:27 DC 07/07/21 20:05 Tamsulosin HCl (Flomax) 0.4 mg DAILY PO 07/07/21 09:00 07/15/21 08:15 Polyethylene Glycol (miraLAX) 17 gm PRN DAILY PRN PO 1ST CHOICE CONSTIPATION 07/06/21 10:45 Non-Formulary Medication (Pravastatin Sodium ) 40 mg DAILY PO 07/07/21 09:00 UNV Phenyleph/Shark Oil/Min Oil/Petrol (Preparation H) 1 inna PRN QID PRN RC RECTAL PAIN 07/06/21 15:15 Phenytoin Sodium (Dilantin) 400 mg HS PO 07/08/21 21:00 07/11/21 23:36 DC 07/11/21 20:35 Albuterol/ Ipratropium (Combivent Respimat 20-100 Mcg) 1 puff QID INH 07/08/21 13:00 07/15/21 20:32 Docusate Sodium (Colace) 100 mg DAILY PO 07/09/21 09:00 07/15/21 08:15 Guaifenesin (Mucinex Er) 600 mg BID PO 07/08/21 21:00 07/15/21 20:33 Magnesium Hydroxide (Milk Of Magnesia) 2,400 mg PRN QHS PRN PO 2nd CHOICE CONSTIPATION 07/08/21 19:30 Cancel Phenytoin Sodium (Dilantin) 200 mg HS PO 07/12/21 21:00 07/15/21 20:33 Phenytoin Sodium (Dilantin) 100 mg DAILY PO 07/12/21 09:00 07/15/21 08:16 I have reviewed the current psychotropics carefully including drug interactions. Risk benefit ratio favors no change other than as noted in my dictated progress note. Diagnosis: Problems: (1) Impulse control disorder, unspecified (2) Anxiety disorder, unspecified (3) Dementia, vascular, with depression (4) Dementia, vascular, with delusions (5) Major neurocognitive disorder (6) Dementia in Alzheimer's disease with depression (7) Dementia in Alzheimer's disease with delusions (8) Dementia of the Alzheimer's type with early onset with behavioral disturbance NIK LOYA MD Jul 15, 2021 22:32
--- NOTE | 2021-07-15 22:32 | PDOC ---
Exam Note: Leo Note: This note is a late entry for 07/14/2021 covers elements not covered in my initial note. Subjective: The patient was reviewed at treatment team meeting individually in the morning on 07/14/2021 with Rivka Valencia (licensed social worker), Jennifer, activity therapy and Anila RN, discussed and reviewed the chart. The patient slept 6 hours previous night. He had some thick brown phlegm. Dr. Niño is addressing this. Chest x-ray, CMP are being requested. No aggression noted. Review of Systems: Ambulation impaired in wheelchair. No CV, , pulmonary, eye, ENT system symptoms on review. Positive for the phlegm. Mental Status Exam: The patient is oriented to himself and situation. Speech has some latency. He is upset that he has not been given Ensure at every meal. Abstraction fair. Computation impaired. Language function intact. Mood and affect remains anxious. He is demanding and attention seeking per nursing staff. Laboratory Data: Reviewed. Impression: Major neurocognitive disorder, Alzheimer, vascular with delusion, depression, behavioral disturbance. Anxiety disorder unspecified. Impulse control disorder unspecified. Plan: Continue psychotropics from initial note. Assessment: Vital Signs/I&O: Vital Signs Date Time Temp Pulse Resp B/P (MAP) Pulse Ox O2 Delivery O2 Flow Rate FiO2 07/15/21 17:24 70 138/64 07/15/21 15:24 98.3 17 96 Room Air I & O 07/14/21 07/14/21 07/15/21 15:00 23:00 07:00 Intake Total 480 ml 600 ml Balance 480 ml 600 ml Labs: Laboratory Tests Test 07/15/21 07:44 07/15/21 18:07 Glucose (Fingerstick) 135 mg/dL (70-99) H Phenytoin (Dilantin) Level 21.7 mcg/mL (10.0-20.0) H Phenytoin Last Dose Date 07/14/21 Phenytoin Last Dose Time 2100 Current Medications: Meds: Laboratory Tests Test 07/15/21 07:44 07/15/21 18:07 Glucose (Fingerstick) 135 mg/dL Phenytoin (Dilantin) Level 21.7 mcg/mL Phenytoin Last Dose Date 07/14/21 Phenytoin Last Dose Time 2100 Current Medications Medications (Trade) Dose Ordered Sig/Aparna Route PRN Reason Start Time Stop Time Status Last Admin Dose Admin Acetaminophen (Tylenol) 650 mg PRN Q6HRS PRN PO MILD PAIN / TEMP > 100.3'F 07/06/21 00:30 Cancel Multi-Ingredient Ointment (Analgesic [place]) 1 inna PRN QID PRN TP MUSCLE PAIN 07/06/21 00:30 Al Hydroxide/Mg Hydroxide (Mylanta Plus Xs) 15 ml PRN AFTMEALHC PRN PO DYSPEPSIA 07/06/21 00:30 Magnesium Hydroxide (Milk Of Magnesia) 2,400 mg PRN QHS PRN PO 2ND CHOICE CONSTIPATION 07/06/21 00:30 07/14/21 08:13 Duloxetine HCl (Cymbalta) 20 mg HS PO 07/06/21 21:00 07/15/21 20:33 Duloxetine HCl (Cymbalta) 30 mg HS PO 07/06/21 21:00 07/15/21 20:33 Mirtazapine (Remeron) 7.5 mg HS PO 07/06/21 21:00 07/15/21 20:33 Olanzapine (ZyPREXA ZYDIS) 2.5 mg PRN Q2HR PRN PO ANXIETY / AGITATION 07/06/21 01:15 Trazodone HCl (Desyrel) 50 mg PRN QHS PRN PO INSOMNIA 07/06/21 01:15 07/08/21 20:51 Acetaminophen (Tylenol) 650 mg PRN Q4HRS PRN PO PAIN 07/06/21 10:30 Aspirin (Aspirin Enteric Coated) 81 mg DAILY PO 07/07/21 09:00 07/15/21 08:15 Atorvastatin Calcium (Lipitor) 10 mg QHS PO 07/06/21 21:00 07/15/21 20:33 Carvedilol (Coreg) 3.125 mg BIDWMEALS PO 07/06/21 17:00 07/15/21 17:24 Gabapentin (Neurontin) 300 mg BID PO 07/06/21 21:00 07/15/21 20:33 Metformin HCl (Glucophage Xr) 500 mg DAILYWBKFT PO 07/07/21 08:00 07/15/21 08:15 Multi-Ingredient Ointment (Analgesic [place]) 1 inna PRN QID PRN TP PAIN 07/06/21 10:30 UNV Phenytoin Sodium (Dilantin) 500 mg HS PO 07/06/21 21:00 07/07/21 22:27 DC 07/07/21 20:05 Tamsulosin HCl (Flomax) 0.4 mg DAILY PO 07/07/21 09:00 07/15/21 08:15 Polyethylene Glycol (miraLAX) 17 gm PRN DAILY PRN PO 1ST CHOICE CONSTIPATION 07/06/21 10:45 Non-Formulary Medication (Pravastatin Sodium ) 40 mg DAILY PO 07/07/21 09:00 UNV Phenyleph/Shark Oil/Min Oil/Petrol (Preparation H) 1 inna PRN QID PRN RC RECTAL PAIN 07/06/21 15:15 Phenytoin Sodium (Dilantin) 400 mg HS PO 07/08/21 21:00 07/11/21 23:36 DC 07/11/21 20:35 Albuterol/ Ipratropium (Combivent Respimat 20-100 Mcg) 1 puff QID INH 07/08/21 13:00 07/15/21 20:32 Docusate Sodium (Colace) 100 mg DAILY PO 07/09/21 09:00 07/15/21 08:15 Guaifenesin (Mucinex Er) 600 mg BID PO 07/08/21 21:00 07/15/21 20:33 Magnesium Hydroxide (Milk Of Magnesia) 2,400 mg PRN QHS PRN PO 2nd CHOICE CONSTIPATION 07/08/21 19:30 Cancel Phenytoin Sodium (Dilantin) 200 mg HS PO 07/12/21 21:00 07/15/21 20:33 Phenytoin Sodium (Dilantin) 100 mg DAILY PO 07/12/21 09:00 07/15/21 08:16 I have reviewed the current psychotropics carefully including drug interactions. Risk benefit ratio favors no change other than as noted in my dictated progress note. Diagnosis: Problems: (1) Impulse control disorder, unspecified (2) Anxiety disorder, unspecified (3) Dementia, vascular, with depression (4) Dementia, vascular, with delusions (5) Major neurocognitive disorder (6) Dementia in Alzheimer's disease with depression (7) Dementia in Alzheimer's disease with delusions (8) Dementia of the Alzheimer's type with early onset with behavioral disturbance NIK LOYA MD Jul 15, 2021 22:32
--- NOTE | 2021-07-15 22:47 | NUR ---
Pt sitting up in w/c in doorway to his room when approached. Pt calm, pleasant, and smiling during encounter. Pt cooperative with assessment and compliant with medications administered whole. No agitation or aggression noted thus far this shift.
[2021-07-16 05:35] VITALS: BP 176/95
--- NOTE | 2021-07-16 06:38 | PDOC ---
Exam Note: Leo Note: This note is a late entry for 07/15/2021 covers elements not covered in my initial note. Subjective: The patient was seen face to face in the evening of 07/15/2021 with Aleah KOWALSKI, discussed and reviewed the chart. The patient slept 6-1/4 hours previous night. He was supposed to have had his Dilantin level today but apparently not completed. We will check it in the morning. He remains anxious, needy, helpless. Appetite is fair. He is compliant with meds. Review of Systems: Ambulation impaired in wheelchair. No CV, , pulmonary, eye, ENT system symptoms on review. Mental Status Exam: The patient is oriented to himself and situation. He is very pleasant, appropriate, referred to me as a doctor. He was still somewhat obsessive about not getting Ensure at his meals. Abstraction fair. Computation impaired. Language function intact. Attention span short. Mood and affect is improved. Laboratory Data: Reviewed. Impression: Major neurocognitive disorder, Alzheimer, vascular with delusion, depression, behavioral disturbance. Anxiety disorder unspecified. Impulse control disorder unspecified. Plan: Continue psychotropics from initial note. Assessment: Vital Signs/I&O: Vital Signs Date Time Temp Pulse Resp B/P (MAP) Pulse Ox O2 Delivery O2 Flow Rate FiO2 07/16/21 05:35 98.6 86 22 176/95 (122) 91 Room Air I & O 07/15/21 07/15/21 07/16/21 15:00 23:00 07:00 Intake Total 1080 ml 600 ml Balance 1080 ml 600 ml Labs: Laboratory Tests Test 07/15/21 07:44 07/15/21 18:07 Glucose (Fingerstick) 135 mg/dL (70-99) H Phenytoin (Dilantin) Level 21.7 mcg/mL (10.0-20.0) H Phenytoin Last Dose Date 07/14/21 Phenytoin Last Dose Time 2100 Current Medications: Meds: Laboratory Tests Test 07/15/21 07:44 07/15/21 18:07 Glucose (Fingerstick) 135 mg/dL Phenytoin (Dilantin) Level 21.7 mcg/mL Phenytoin Last Dose Date 07/14/21 Phenytoin Last Dose Time 2100 Current Medications Medications (Trade) Dose Ordered Sig/Aparna Route PRN Reason Start Time Stop Time Status Last Admin Dose Admin Acetaminophen (Tylenol) 650 mg PRN Q6HRS PRN PO MILD PAIN / TEMP > 100.3'F 07/06/21 00:30 Cancel Multi-Ingredient Ointment (Analgesic [place]) 1 inna PRN QID PRN TP MUSCLE PAIN 07/06/21 00:30 Al Hydroxide/Mg Hydroxide (Mylanta Plus Xs) 15 ml PRN AFTMEALHC PRN PO DYSPEPSIA 07/06/21 00:30 Magnesium Hydroxide (Milk Of Magnesia) 2,400 mg PRN QHS PRN PO 2ND CHOICE CONSTIPATION 07/06/21 00:30 07/14/21 08:13 Duloxetine HCl (Cymbalta) 20 mg HS PO 07/06/21 21:00 07/15/21 20:33 Duloxetine HCl (Cymbalta) 30 mg HS PO 07/06/21 21:00 07/15/21 20:33 Mirtazapine (Remeron) 7.5 mg HS PO 07/06/21 21:00 07/15/21 20:33 Olanzapine (ZyPREXA ZYDIS) 2.5 mg PRN Q2HR PRN PO ANXIETY / AGITATION 07/06/21 01:15 Trazodone HCl (Desyrel) 50 mg PRN QHS PRN PO INSOMNIA 07/06/21 01:15 07/08/21 20:51 Acetaminophen (Tylenol) 650 mg PRN Q4HRS PRN PO PAIN 07/06/21 10:30 Aspirin (Aspirin Enteric Coated) 81 mg DAILY PO 07/07/21 09:00 07/15/21 08:15 Atorvastatin Calcium (Lipitor) 10 mg QHS PO 07/06/21 21:00 07/15/21 20:33 Carvedilol (Coreg) 3.125 mg BIDWMEALS PO 07/06/21 17:00 07/15/21 17:24 Gabapentin (Neurontin) 300 mg BID PO 07/06/21 21:00 07/15/21 20:33 Metformin HCl (Glucophage Xr) 500 mg DAILYWBKFT PO 07/07/21 08:00 07/15/21 08:15 Multi-Ingredient Ointment (Analgesic [place]) 1 inna PRN QID PRN TP PAIN 07/06/21 10:30 UNV Phenytoin Sodium (Dilantin) 500 mg HS PO 07/06/21 21:00 07/07/21 22:27 DC 07/07/21 20:05 Tamsulosin HCl (Flomax) 0.4 mg DAILY PO 07/07/21 09:00 07/15/21 08:15 Polyethylene Glycol (miraLAX) 17 gm PRN DAILY PRN PO 1ST CHOICE CONSTIPATION 07/06/21 10:45 Non-Formulary Medication (Pravastatin Sodium ) 40 mg DAILY PO 07/07/21 09:00 UNV Phenyleph/Shark Oil/Min Oil/Petrol (Preparation H) 1 inna PRN QID PRN RC RECTAL PAIN 07/06/21 15:15 Phenytoin Sodium (Dilantin) 400 mg HS PO 07/08/21 21:00 07/11/21 23:36 DC 07/11/21 20:35 Albuterol/ Ipratropium (Combivent Respimat 20-100 Mcg) 1 puff QID INH 07/08/21 13:00 07/15/21 20:32 Docusate Sodium (Colace) 100 mg DAILY PO 07/09/21 09:00 07/15/21 08:15 Guaifenesin (Mucinex Er) 600 mg BID PO 07/08/21 21:00 07/15/21 20:33 Magnesium Hydroxide (Milk Of Magnesia) 2,400 mg PRN QHS PRN PO 2nd CHOICE CONSTIPATION 07/08/21 19:30 Cancel Phenytoin Sodium (Dilantin) 200 mg HS PO 07/12/21 21:00 07/15/21 20:33 Phenytoin Sodium (Dilantin) 100 mg DAILY PO 07/12/21 09:00 07/15/21 08:16 I have reviewed the current psychotropics carefully including drug interactions. Risk benefit ratio favors no change other than as noted in my dictated progress note. Diagnosis: Problems: (1) Impulse control disorder, unspecified (2) Anxiety disorder, unspecified (3) Dementia, vascular, with depression (4) Dementia, vascular, with delusions (5) Major neurocognitive disorder (6) Dementia in Alzheimer's disease with depression (7) Dementia in Alzheimer's disease with delusions (8) Dementia of the Alzheimer's type with early onset with behavioral disturbance NIK LOYA MD Jul 16, 2021 06:38
[2021-07-16] MEDS: GABAPENTIN 300 MG CAPSULE. PO SCH ×2 (08:34→20:08)
[2021-07-16] MEDS: metFORMIN XR 500 MG TAB.ER.24H PO SCH (08:35)
[2021-07-16] MEDS: PHENYTOIN SODIUM EXTENDED 100 MG CAPSULE PO SCH ×2 (08:35→20:08)
[2021-07-16] MEDS: DOCUSATE SODIUM 100 MG CAPSULE PO SCH (08:35)
[2021-07-16] MEDS: CARVEDILOL 3.125 MG TABLET PO SCH ×2 (08:35→17:22)
[2021-07-16] MEDS: TAMSULOSIN 0.4 MG CAP.ER.24H. PO SCH (08:35)
[2021-07-16] MEDS: IPRATROPIUM/ALBUTEROL 20/100mcg/INH INHALER. INH SCH ×4 (08:35→20:08)
[2021-07-16] MEDS: ASPIRIN ENTERIC COATED 81 MG TABLET.DR. PO SCH (08:35)
[2021-07-16 15:25] VITALS: BP 144/71
--- NOTE | 2021-07-16 16:32 | NUR ---
Nsg note; Nasir has been cooperative and calm today. He is med compliant with no issues. He self transfers to his w/c and does like to get back in bed for periods of time between meals. he feeds himself and eats most of his meals. he came to the dayroom this afternoon after encouragement and thoroughly enjoyed the music. 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 He does become emotional at times when listening to the music, becoming teary-eyed which he gets under control quickly.
[2021-07-16] MEDS: ATORVASTATIN CALCIUM 10 MG TABLET. PO SCH (20:08)
[2021-07-16] MEDS: DULoxetine HCL 20 MG CAPSULE.DR PO SCH (20:09)
[2021-07-16] MEDS: MIRTAZAPINE 7.5 MG TABLET. PO SCH (20:09)
[2021-07-16] MEDS: DULoxetine HCL 30 MG CAPSULE.DR PO SCH (20:09)
--- NOTE | 2021-07-16 22:02 | PDOC ---
Exam Note: Leo Note: Please also refer to the separate dictated note~for this date of service dictated separately.~Patient seen individually. Discussed the patient with Nursing staff reviewed the chart.~Reviewed interim history and current functioning. Reviewed vital signs,~Labs/ Radiology~and current medications noted below. Continue current treatment with the changes noted in the dictated addendum note Assessment: Vital Signs/I&O: Vital Signs Date Time Temp Pulse Resp B/P (MAP) Pulse Ox O2 Delivery O2 Flow Rate FiO2 07/16/21 17:22 76 144/71 07/16/21 15:25 98.4 16 92 07/16/21 05:35 Room Air I & O 07/15/21 07/15/21 07/16/21 15:00 23:00 07:00 Intake Total 1080 ml 600 ml Balance 1080 ml 600 ml Labs: Laboratory Tests Test 07/16/21 07:30 Glucose (Fingerstick) 130 mg/dL (70-99) H Current Medications: Meds: Laboratory Tests Test 07/16/21 07:30 Glucose (Fingerstick) 130 mg/dL Current Medications Medications (Trade) Dose Ordered Sig/Aparna Route PRN Reason Start Time Stop Time Status Last Admin Dose Admin Acetaminophen (Tylenol) 650 mg PRN Q6HRS PRN PO MILD PAIN / TEMP > 100.3'F 07/06/21 00:30 Cancel Multi-Ingredient Ointment (Analgesic [place]) 1 inna PRN QID PRN TP MUSCLE PAIN 07/06/21 00:30 Al Hydroxide/Mg Hydroxide (Mylanta Plus Xs) 15 ml PRN AFTMEALHC PRN PO DYSPEPSIA 07/06/21 00:30 Magnesium Hydroxide (Milk Of Magnesia) 2,400 mg PRN QHS PRN PO 2ND CHOICE CONSTIPATION 07/06/21 00:30 07/14/21 08:13 Duloxetine HCl (Cymbalta) 20 mg HS PO 07/06/21 21:00 07/16/21 20:09 Duloxetine HCl (Cymbalta) 30 mg HS PO 07/06/21 21:00 07/16/21 20:09 Mirtazapine (Remeron) 7.5 mg HS PO 07/06/21 21:00 07/16/21 20:09 Olanzapine (ZyPREXA ZYDIS) 2.5 mg PRN Q2HR PRN PO ANXIETY / AGITATION 07/06/21 01:15 Trazodone HCl (Desyrel) 50 mg PRN QHS PRN PO INSOMNIA 07/06/21 01:15 07/08/21 20:51 Acetaminophen (Tylenol) 650 mg PRN Q4HRS PRN PO PAIN 07/06/21 10:30 Aspirin (Aspirin Enteric Coated) 81 mg DAILY PO 07/07/21 09:00 07/16/21 08:35 Atorvastatin Calcium (Lipitor) 10 mg QHS PO 07/06/21 21:00 07/16/21 20:08 Carvedilol (Coreg) 3.125 mg BIDWMEALS PO 07/06/21 17:00 07/16/21 17:22 Gabapentin (Neurontin) 300 mg BID PO 07/06/21 21:00 07/16/21 20:08 Metformin HCl (Glucophage Xr) 500 mg DAILYWBKFT PO 07/07/21 08:00 07/16/21 08:35 Multi-Ingredient Ointment (Analgesic [place]) 1 inna PRN QID PRN TP PAIN 07/06/21 10:30 UNV Phenytoin Sodium (Dilantin) 500 mg HS PO 07/06/21 21:00 07/07/21 22:27 DC 07/07/21 20:05 Tamsulosin HCl (Flomax) 0.4 mg DAILY PO 07/07/21 09:00 07/16/21 08:35 Polyethylene Glycol (miraLAX) 17 gm PRN DAILY PRN PO 1ST CHOICE CONSTIPATION 07/06/21 10:45 Non-Formulary Medication (Pravastatin Sodium ) 40 mg DAILY PO 07/07/21 09:00 UNV Phenyleph/Shark Oil/Min Oil/Petrol (Preparation H) 1 inna PRN QID PRN RC RECTAL PAIN 07/06/21 15:15 Phenytoin Sodium (Dilantin) 400 mg HS PO 07/08/21 21:00 07/11/21 23:36 DC 07/11/21 20:35 Albuterol/ Ipratropium (Combivent Respimat 20-100 Mcg) 1 puff QID INH 07/08/21 13:00 07/16/21 20:08 Docusate Sodium (Colace) 100 mg DAILY PO 07/09/21 09:00 07/16/21 08:35 Guaifenesin (Mucinex Er) 600 mg BID PO 07/08/21 21:00 07/16/21 20:08 Magnesium Hydroxide (Milk Of Magnesia) 2,400 mg PRN QHS PRN PO 2nd CHOICE CONSTIPATION 07/08/21 19:30 Cancel Phenytoin Sodium (Dilantin) 200 mg HS PO 07/12/21 21:00 07/16/21 20:08 Phenytoin Sodium (Dilantin) 100 mg DAILY PO 07/12/21 09:00 07/16/21 08:35 I have reviewed the current psychotropics carefully including drug interactions. Risk benefit ratio favors no change other than as noted in my dictated progress note. Diagnosis: Problems: (1) Impulse control disorder, unspecified (2) Anxiety disorder, unspecified (3) Dementia, vascular, with depression (4) Dementia, vascular, with delusions (5) Major neurocognitive disorder (6) Dementia in Alzheimer's disease with depression (7) Dementia in Alzheimer's disease with delusions (8) Dementia of the Alzheimer's type with early onset with behavioral disturbance NIK LOYA MD Jul 16, 2021 22:02
--- NOTE | 2021-07-17 04:21 | NUR ---
Pt sitting up in his w/c in his room when approached. Pt calm, pleasant, and appropriate during encounter. Pt cooperative with assessment and compliant with medications administered whole. Pt has had a large amount of expectorated sputum this shift with a creamy consistency. No agitation or aggression noted thus far this shift.
[2021-07-17 05:17] VITALS: BP 178/92
[2021-07-17 08:10] LABS: PHENY 18.4 mcg/mL (10.0-20.0)
[2021-07-17] MEDS: CARVEDILOL 3.125 MG TABLET PO SCH ×2 (08:41→17:51)
[2021-07-17] MEDS: DOCUSATE SODIUM 100 MG CAPSULE PO SCH (08:41)
[2021-07-17] MEDS: TAMSULOSIN 0.4 MG CAP.ER.24H. PO SCH (08:41)
[2021-07-17] MEDS: ASPIRIN ENTERIC COATED 81 MG TABLET.DR. PO SCH (08:41)
[2021-07-17] MEDS: metFORMIN XR 500 MG TAB.ER.24H PO SCH (08:42)
[2021-07-17] MEDS: IPRATROPIUM/ALBUTEROL 20/100mcg/INH INHALER. INH SCH ×4 (08:42→19:50)
[2021-07-17] MEDS: PHENYTOIN SODIUM EXTENDED 100 MG CAPSULE PO SCH ×2 (08:42→19:49)
[2021-07-17] MEDS: GABAPENTIN 300 MG CAPSULE. PO SCH ×2 (08:42→19:50)
[2021-07-17 16:03] VITALS: BP 155/71
--- NOTE | 2021-07-17 18:19 | NUR ---
Patient has been withdrawn to his room, irritable with peers that wander into his room, and compliant with medications. He was attention seeking and helpless occasionally, requiring more assistance than he actually needed to toilet himself and change his clothes. Will continue to monitor and report to oncoming shift.
[2021-07-17] MEDS: DULoxetine HCL 30 MG CAPSULE.DR PO SCH (19:48)
[2021-07-17] MEDS: DULoxetine HCL 20 MG CAPSULE.DR PO SCH (19:48)
[2021-07-17] MEDS: MIRTAZAPINE 7.5 MG TABLET. PO SCH (19:49)
[2021-07-17] MEDS: ATORVASTATIN CALCIUM 10 MG TABLET. PO SCH (19:49)
--- NOTE | 2021-07-17 22:11 | PDOC ---
Exam Note: Leo Note: Please also refer to the separate dictated note~for this date of service dictated separately.~Patient seen individually. Discussed the patient with Nursing staff reviewed the chart.~Reviewed interim history and current functioning. Reviewed vital signs,~Labs/ Radiology~and current medications noted below. Continue current treatment with the changes noted in the dictated addendum note Assessment: Vital Signs/I&O: Vital Signs Date Time Temp Pulse Resp B/P (MAP) Pulse Ox O2 Delivery O2 Flow Rate FiO2 07/17/21 17:51 78 155/71 07/17/21 16:03 98.4 19 96 Room Air I & O 07/16/21 07/16/21 07/17/21 15:00 23:00 07:00 Intake Total 700 ml 470 ml Balance 700 ml 470 ml Labs: Laboratory Tests Test 07/17/21 07:34 07/17/21 07:53 Glucose (Fingerstick) 126 mg/dL (70-99) H Phenytoin (Dilantin) Level 18.4 mcg/mL (10.0-20.0) Phenytoin Last Dose Date 07/16/21 Phenytoin Last Dose Time 2100 Current Medications: Meds: Laboratory Tests Test 07/17/21 07:34 07/17/21 07:53 Glucose (Fingerstick) 126 mg/dL Phenytoin (Dilantin) Level 18.4 mcg/mL Phenytoin Last Dose Date 07/16/21 Phenytoin Last Dose Time 2100 Current Medications Medications (Trade) Dose Ordered Sig/Aparna Route PRN Reason Start Time Stop Time Status Last Admin Dose Admin Acetaminophen (Tylenol) 650 mg PRN Q6HRS PRN PO MILD PAIN / TEMP > 100.3'F 07/06/21 00:30 Cancel Multi-Ingredient Ointment (Analgesic [place]) 1 inna PRN QID PRN TP MUSCLE PAIN 07/06/21 00:30 Al Hydroxide/Mg Hydroxide (Mylanta Plus Xs) 15 ml PRN AFTMEALHC PRN PO DYSPEPSIA 07/06/21 00:30 Magnesium Hydroxide (Milk Of Magnesia) 2,400 mg PRN QHS PRN PO 2ND CHOICE CONSTIPATION 07/06/21 00:30 07/14/21 08:13 Duloxetine HCl (Cymbalta) 20 mg HS PO 07/06/21 21:00 07/17/21 19:48 Duloxetine HCl (Cymbalta) 30 mg HS PO 07/06/21 21:00 07/17/21 19:48 Mirtazapine (Remeron) 7.5 mg HS PO 07/06/21 21:00 07/17/21 19:49 Olanzapine (ZyPREXA ZYDIS) 2.5 mg PRN Q2HR PRN PO ANXIETY / AGITATION 07/06/21 01:15 Trazodone HCl (Desyrel) 50 mg PRN QHS PRN PO INSOMNIA 07/06/21 01:15 07/08/21 20:51 Acetaminophen (Tylenol) 650 mg PRN Q4HRS PRN PO PAIN 07/06/21 10:30 Aspirin (Aspirin Enteric Coated) 81 mg DAILY PO 07/07/21 09:00 07/17/21 08:41 Atorvastatin Calcium (Lipitor) 10 mg QHS PO 07/06/21 21:00 07/17/21 19:49 Carvedilol (Coreg) 3.125 mg BIDWMEALS PO 07/06/21 17:00 07/17/21 17:51 Gabapentin (Neurontin) 300 mg BID PO 07/06/21 21:00 07/17/21 19:50 Metformin HCl (Glucophage Xr) 500 mg DAILYWBKFT PO 07/07/21 08:00 07/17/21 08:42 Multi-Ingredient Ointment (Analgesic [place]) 1 inna PRN QID PRN TP PAIN 07/06/21 10:30 UNV Phenytoin Sodium (Dilantin) 500 mg HS PO 07/06/21 21:00 07/07/21 22:27 DC 07/07/21 20:05 Tamsulosin HCl (Flomax) 0.4 mg DAILY PO 07/07/21 09:00 07/17/21 08:41 Polyethylene Glycol (miraLAX) 17 gm PRN DAILY PRN PO 1ST CHOICE CONSTIPATION 07/06/21 10:45 Non-Formulary Medication (Pravastatin Sodium ) 40 mg DAILY PO 07/07/21 09:00 UNV Phenyleph/Shark Oil/Min Oil/Petrol (Preparation H) 1 inna PRN QID PRN RC RECTAL PAIN 07/06/21 15:15 Phenytoin Sodium (Dilantin) 400 mg HS PO 07/08/21 21:00 07/11/21 23:36 DC 07/11/21 20:35 Albuterol/ Ipratropium (Combivent Respimat 20-100 Mcg) 1 puff QID INH 07/08/21 13:00 07/17/21 19:50 Docusate Sodium (Colace) 100 mg DAILY PO 07/09/21 09:00 07/17/21 08:41 Guaifenesin (Mucinex Er) 600 mg BID PO 07/08/21 21:00 07/17/21 19:48 Magnesium Hydroxide (Milk Of Magnesia) 2,400 mg PRN QHS PRN PO 2nd CHOICE CONSTIPATION 07/08/21 19:30 Cancel Phenytoin Sodium (Dilantin) 200 mg HS PO 07/12/21 21:00 07/17/21 19:49 Phenytoin Sodium (Dilantin) 100 mg DAILY PO 07/12/21 09:00 07/17/21 08:42 I have reviewed the current psychotropics carefully including drug interactions. Risk benefit ratio favors no change other than as noted in my dictated progress note. Diagnosis: Problems: (1) Impulse control disorder, unspecified (2) Anxiety disorder, unspecified (3) Dementia, vascular, with depression (4) Dementia, vascular, with delusions (5) Major neurocognitive disorder (6) Dementia in Alzheimer's disease with depression (7) Dementia in Alzheimer's disease with delusions (8) Dementia of the Alzheimer's type with early onset with behavioral disturbance NIK LOYA MD Jul 17, 2021 22:11
--- NOTE | 2021-07-17 22:44 | NUR ---
Pt sitting quietly in his room when approached. Pt calm, pleasant, and interactive during encounter. Pt cooperative with assessment and compliant with medications administered whole. Pt asked if there would be any music this evening so I offered him the use of one of the unit Kindles to listen to music, which he accepted. Pt really enjoyed listening to the music and using the tablet, asking where he could get one. No agitation or aggression noted thus far this shift.
[2021-07-17] MEDS: traZODone 50 MG TABLET. PO PRN (23:39)
--- NOTE | 2021-07-17 23:45 | NUR ---
Pt up to nurse's station, loudly stating, "I'm dyin!" I went out to assess pt and inquire as to why he believed he was dying. Pt responded, "I'm dyin! Don't you think I know when I'm dying?" Once again, I asked him what symptoms he was having. Pt c/o SOA as he continues to yell in the hallway. I asked pt to lower his voice several times without success. Pt requesting to call his DPOA/nephew Maikel, "I need to call Maikel now!" Pt VS obtained at this time- 99.0, 77, 24,170/96, 96% RA. Pt refusing to keep his arms and hands still while obtaining vitals despite my attempts to educate him. Pt continued to call out and act helpless. Pt requesting to be taken to another hospital because he does not believe that he is receiving the proper care here. Pt then began coughing in the hallway very loudly and refused to cover his mouth despite me asking him multiple times. Pt then stated, "I need a tissue, dammit!" I provided pt with a box of tissues and he proceeded to expectorate a large amount of creamy, greenish brown tinged sputum. Afterwards, pt threw tissue on the floor in hallway. At this time, I provided pt with a mask and placed it on his face, covering his nose and mouth. PRN Zyprexa and PRN Trazodone administered @2340 and pt escorted back to his room. Pt was asked to remain in his room and not to come out into the hallway without his mask on. Pt then asked for a cup of water which was provided to him.
[2021-07-17 23:50] VITALS: BP 170/96
[2021-07-18 06:02] VITALS: BP 141/57
--- NOTE | 2021-07-18 06:40 | PDOC ---
Exam Note: Leo Note: This note is a late entry for 07/16/2021 covers elements not covered in my initial note. Subjective: The patient was seen face to face in the evening of 07/16/2021 with Aleah KOWALSKI, discussed and reviewed the chart. The patient slept 7-3/4 hours previous night. We are going to repeat Dilantin level morning of 07/17. He gets somewhat irritable at times but does redirect feels nursing staff do not respond to him quickly. I addressed this with him. Review of Systems: Ambulation impaired, in wheelchair. No CV, , pulmonary, eye, ENT system symptoms on review. The cough is better. Mental Status Exam: The patient is oriented to himself and situation. Speech is coherent. Abstraction fair. Computation impaired. Language function intact. Mood and affect is somewhat anxious, labile but improved. Laboratory Data: Reviewed. Impression: Major neurocognitive disorder, Alzheimer, vascular with delusion, depression, behavioral disturbance. Anxiety disorder unspecified. Impulse control disorder unspecified. Plan: Continue psychotropics from initial note. Assessment: Vital Signs/I&O: Vital Signs Date Time Temp Pulse Resp B/P (MAP) Pulse Ox O2 Delivery O2 Flow Rate FiO2 07/18/21 06:02 99.2 78 22 141/57 (85) 92 07/17/21 23:50 Room Air I & O 07/17/21 07/17/21 07/18/21 15:00 23:00 07:00 Intake Total 750 ml 520 ml Balance 750 ml 520 ml Labs: Laboratory Tests Test 07/17/21 07:34 07/17/21 07:53 Glucose (Fingerstick) 126 mg/dL (70-99) H Phenytoin (Dilantin) Level 18.4 mcg/mL (10.0-20.0) Phenytoin Last Dose Date 07/16/21 Phenytoin Last Dose Time 2100 Current Medications: Meds: Laboratory Tests Test 07/17/21 07:34 07/17/21 07:53 Glucose (Fingerstick) 126 mg/dL Phenytoin (Dilantin) Level 18.4 mcg/mL Phenytoin Last Dose Date 07/16/21 Phenytoin Last Dose Time 2100 Current Medications Medications (Trade) Dose Ordered Sig/Aparna Route PRN Reason Start Time Stop Time Status Last Admin Dose Admin Acetaminophen (Tylenol) 650 mg PRN Q6HRS PRN PO MILD PAIN / TEMP > 100.3'F 07/06/21 00:30 Cancel Multi-Ingredient Ointment (Analgesic [place]) 1 inna PRN QID PRN TP MUSCLE PAIN 07/06/21 00:30 Al Hydroxide/Mg Hydroxide (Mylanta Plus Xs) 15 ml PRN AFTMEALHC PRN PO DYSPEPSIA 07/06/21 00:30 Magnesium Hydroxide (Milk Of Magnesia) 2,400 mg PRN QHS PRN PO 2ND CHOICE CONSTIPATION 07/06/21 00:30 07/14/21 08:13 Duloxetine HCl (Cymbalta) 20 mg HS PO 07/06/21 21:00 07/17/21 19:48 Duloxetine HCl (Cymbalta) 30 mg HS PO 07/06/21 21:00 07/17/21 19:48 Mirtazapine (Remeron) 7.5 mg HS PO 07/06/21 21:00 07/17/21 19:49 Olanzapine (ZyPREXA ZYDIS) 2.5 mg PRN Q2HR PRN PO ANXIETY / AGITATION 07/06/21 01:15 07/17/21 23:39 Trazodone HCl (Desyrel) 50 mg PRN QHS PRN PO INSOMNIA 07/06/21 01:15 07/17/21 23:39 Acetaminophen (Tylenol) 650 mg PRN Q4HRS PRN PO PAIN 07/06/21 10:30 Aspirin (Aspirin Enteric Coated) 81 mg DAILY PO 07/07/21 09:00 07/17/21 08:41 Atorvastatin Calcium (Lipitor) 10 mg QHS PO 07/06/21 21:00 07/17/21 19:49 Carvedilol (Coreg) 3.125 mg BIDWMEALS PO 07/06/21 17:00 07/17/21 17:51 Gabapentin (Neurontin) 300 mg BID PO 07/06/21 21:00 07/17/21 19:50 Metformin HCl (Glucophage Xr) 500 mg DAILYWBKFT PO 07/07/21 08:00 07/17/21 08:42 Multi-Ingredient Ointment (Analgesic [place]) 1 inna PRN QID PRN TP PAIN 07/06/21 10:30 UNV Phenytoin Sodium (Dilantin) 500 mg HS PO 07/06/21 21:00 07/07/21 22:27 DC 07/07/21 20:05 Tamsulosin HCl (Flomax) 0.4 mg DAILY PO 07/07/21 09:00 07/17/21 08:41 Polyethylene Glycol (miraLAX) 17 gm PRN DAILY PRN PO 1ST CHOICE CONSTIPATION 07/06/21 10:45 Non-Formulary Medication (Pravastatin Sodium ) 40 mg DAILY PO 07/07/21 09:00 UNV Phenyleph/Shark Oil/Min Oil/Petrol (Preparation H) 1 inna PRN QID PRN RC RECTAL PAIN 07/06/21 15:15 Phenytoin Sodium (Dilantin) 400 mg HS PO 07/08/21 21:00 07/11/21 23:36 DC 07/11/21 20:35 Albuterol/ Ipratropium (Combivent Respimat 20-100 Mcg) 1 puff QID INH 07/08/21 13:00 07/17/21 19:50 Docusate Sodium (Colace) 100 mg DAILY PO 07/09/21 09:00 07/17/21 08:41 Guaifenesin (Mucinex Er) 600 mg BID PO 07/08/21 21:00 07/17/21 19:48 Magnesium Hydroxide (Milk Of Magnesia) 2,400 mg PRN QHS PRN PO 2nd CHOICE CONSTIPATION 07/08/21 19:30 Cancel Phenytoin Sodium (Dilantin) 200 mg HS PO 07/12/21 21:00 07/17/21 19:49 Phenytoin Sodium (Dilantin) 100 mg DAILY PO 07/12/21 09:00 07/17/21 08:42 I have reviewed the current psychotropics carefully including drug interactions. Risk benefit ratio favors no change other than as noted in my dictated progress note. Diagnosis: Problems: (1) Impulse control disorder, unspecified (2) Anxiety disorder, unspecified (3) Dementia, vascular, with depression (4) Dementia, vascular, with delusions (5) Major neurocognitive disorder (6) Dementia in Alzheimer's disease with depression (7) Dementia in Alzheimer's disease with delusions (8) Dementia of the Alzheimer's type with early onset with behavioral disturbance NIK LOYA MD Jul 18, 2021 06:40
--- NOTE | 2021-07-18 06:54 | PDOC ---
Exam Note: Leo Note: This note is a late entry for 07/17/2021 covers elements not covered in my initial note. Subjective: The patient was seen face to face in the evening of 07/17/2021 with Zion KOWALSKI, discussed and reviewed the chart. The patient slept 6 hours previous night. He has been calm, compliant. Dilantin level is 18.4 on 300 mg a day and we will keep it unchanged for now. Review of Systems: Ambulation impaired, in wheelchair. No CV, , pulmonary, eye, ENT system symptoms on review. Mental Status Exam: The patient is oriented to himself and situation. I met with him in is room. He is pleasant, verbal, interactive. I have been seeing him every day and despite this today he thought I was a preacher. Short-term memory does have some deficits. Abstraction fair. Computation impaired. Language function intact. Attention span short. Mood and affect labile, but improved. Laboratory Data: Reviewed. Impression: Major neurocognitive disorder, Alzheimer, vascular with delusion, depression, behavioral disturbance. Anxiety disorder unspecified. Impulse control disorder unspecified. Plan: Continue psychotropics from initial note. Assessment: Vital Signs/I&O: Vital Signs Date Time Temp Pulse Resp B/P (MAP) Pulse Ox O2 Delivery O2 Flow Rate FiO2 07/18/21 06:02 99.2 78 22 141/57 (85) 92 07/17/21 23:50 Room Air I & O 07/17/21 07/17/21 07/18/21 15:00 23:00 07:00 Intake Total 750 ml 520 ml Balance 750 ml 520 ml Labs: Laboratory Tests Test 07/17/21 07:34 07/17/21 07:53 Glucose (Fingerstick) 126 mg/dL (70-99) H Phenytoin (Dilantin) Level 18.4 mcg/mL (10.0-20.0) Phenytoin Last Dose Date 07/16/21 Phenytoin Last Dose Time 2100 Current Medications: Meds: Laboratory Tests Test 07/17/21 07:34 07/17/21 07:53 Glucose (Fingerstick) 126 mg/dL Phenytoin (Dilantin) Level 18.4 mcg/mL Phenytoin Last Dose Date 07/16/21 Phenytoin Last Dose Time 2100 Current Medications Medications (Trade) Dose Ordered Sig/Aparna Route PRN Reason Start Time Stop Time Status Last Admin Dose Admin Acetaminophen (Tylenol) 650 mg PRN Q6HRS PRN PO MILD PAIN / TEMP > 100.3'F 07/06/21 00:30 Cancel Multi-Ingredient Ointment (Analgesic [place]) 1 inna PRN QID PRN TP MUSCLE PAIN 07/06/21 00:30 Al Hydroxide/Mg Hydroxide (Mylanta Plus Xs) 15 ml PRN AFTMEALHC PRN PO DYSPEPSIA 07/06/21 00:30 Magnesium Hydroxide (Milk Of Magnesia) 2,400 mg PRN QHS PRN PO 2ND CHOICE CONSTIPATION 07/06/21 00:30 07/14/21 08:13 Duloxetine HCl (Cymbalta) 20 mg HS PO 07/06/21 21:00 07/17/21 19:48 Duloxetine HCl (Cymbalta) 30 mg HS PO 07/06/21 21:00 07/17/21 19:48 Mirtazapine (Remeron) 7.5 mg HS PO 07/06/21 21:00 07/17/21 19:49 Olanzapine (ZyPREXA ZYDIS) 2.5 mg PRN Q2HR PRN PO ANXIETY / AGITATION 07/06/21 01:15 07/17/21 23:39 Trazodone HCl (Desyrel) 50 mg PRN QHS PRN PO INSOMNIA 07/06/21 01:15 07/17/21 23:39 Acetaminophen (Tylenol) 650 mg PRN Q4HRS PRN PO PAIN 07/06/21 10:30 Aspirin (Aspirin Enteric Coated) 81 mg DAILY PO 07/07/21 09:00 07/17/21 08:41 Atorvastatin Calcium (Lipitor) 10 mg QHS PO 07/06/21 21:00 07/17/21 19:49 Carvedilol (Coreg) 3.125 mg BIDWMEALS PO 07/06/21 17:00 07/17/21 17:51 Gabapentin (Neurontin) 300 mg BID PO 07/06/21 21:00 07/17/21 19:50 Metformin HCl (Glucophage Xr) 500 mg DAILYWBKFT PO 07/07/21 08:00 07/17/21 08:42 Multi-Ingredient Ointment (Analgesic [place]) 1 inna PRN QID PRN TP PAIN 07/06/21 10:30 UNV Phenytoin Sodium (Dilantin) 500 mg HS PO 07/06/21 21:00 07/07/21 22:27 DC 07/07/21 20:05 Tamsulosin HCl (Flomax) 0.4 mg DAILY PO 07/07/21 09:00 07/17/21 08:41 Polyethylene Glycol (miraLAX) 17 gm PRN DAILY PRN PO 1ST CHOICE CONSTIPATION 07/06/21 10:45 Non-Formulary Medication (Pravastatin Sodium ) 40 mg DAILY PO 07/07/21 09:00 UNV Phenyleph/Shark Oil/Min Oil/Petrol (Preparation H) 1 inna PRN QID PRN RC RECTAL PAIN 07/06/21 15:15 Phenytoin Sodium (Dilantin) 400 mg HS PO 07/08/21 21:00 07/11/21 23:36 DC 07/11/21 20:35 Albuterol/ Ipratropium (Combivent Respimat 20-100 Mcg) 1 puff QID INH 07/08/21 13:00 07/17/21 19:50 Docusate Sodium (Colace) 100 mg DAILY PO 07/09/21 09:00 07/17/21 08:41 Guaifenesin (Mucinex Er) 600 mg BID PO 07/08/21 21:00 07/17/21 19:48 Magnesium Hydroxide (Milk Of Magnesia) 2,400 mg PRN QHS PRN PO 2nd CHOICE CONSTIPATION 07/08/21 19:30 Cancel Phenytoin Sodium (Dilantin) 200 mg HS PO 07/12/21 21:00 07/17/21 19:49 Phenytoin Sodium (Dilantin) 100 mg DAILY PO 07/12/21 09:00 07/17/21 08:42 I have reviewed the current psychotropics carefully including drug interactions. Risk benefit ratio favors no change other than as noted in my dictated progress note. 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
[2021-07-18] MEDS: ASPIRIN ENTERIC COATED 81 MG TABLET.DR. PO SCH (07:58)
[2021-07-18] MEDS: PHENYTOIN SODIUM EXTENDED 100 MG CAPSULE PO SCH ×2 (07:58→20:57)
[2021-07-18] MEDS: DOCUSATE SODIUM 100 MG CAPSULE PO SCH (07:58)
[2021-07-18] MEDS: metFORMIN XR 500 MG TAB.ER.24H PO SCH (07:59)
[2021-07-18] MEDS: GABAPENTIN 300 MG CAPSULE. PO SCH ×2 (07:59→20:57)
[2021-07-18] MEDS: TAMSULOSIN 0.4 MG CAP.ER.24H. PO SCH (07:59)
[2021-07-18] MEDS: CARVEDILOL 3.125 MG TABLET PO SCH ×2 (07:59→17:39)
[2021-07-18] MEDS: IPRATROPIUM/ALBUTEROL 20/100mcg/INH INHALER. INH SCH ×4 (07:59→20:57)
[2021-07-18 15:39] VITALS: BP 145/63
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
[2021-07-18] MEDS: DULoxetine HCL 20 MG CAPSULE.DR PO SCH (20:56)
[2021-07-18] MEDS: DULoxetine HCL 30 MG CAPSULE.DR PO SCH (20:56)
[2021-07-18] MEDS: ATORVASTATIN CALCIUM 10 MG TABLET. PO SCH (20:57)
[2021-07-18] MEDS: MIRTAZAPINE 7.5 MG TABLET. PO SCH (20:57)
--- NOTE | 2021-07-18 21:58 | PDOC ---
Exam Note: Leo Note: Please also refer to the separate dictated note~for this date of service dictated separately.~Patient seen individually. Discussed the patient with Nursing staff reviewed the chart.~Reviewed interim history and current functioning. Reviewed vital signs,~Labs/ Radiology~and current medications noted below. Continue current treatment with the changes noted in the dictated addendum note Assessment: Vital Signs/I&O: Vital Signs Date Time Temp Pulse Resp B/P (MAP) Pulse Ox O2 Delivery O2 Flow Rate FiO2 07/18/21 17:39 80 145/63 07/18/21 15:39 97.8 20 97 07/17/21 23:50 Room Air I & O 07/17/21 07/17/21 07/18/21 15:00 23:00 07:00 Intake Total 750 ml 520 ml Balance 750 ml 520 ml Current Medications: Meds: Current Medications Medications (Trade) Dose Ordered Sig/Aparna Route PRN Reason Start Time Stop Time Status Last Admin Dose Admin Acetaminophen (Tylenol) 650 mg PRN Q6HRS PRN PO MILD PAIN / TEMP > 100.3'F 07/06/21 00:30 Cancel Multi-Ingredient Ointment (Analgesic [place]) 1 inna PRN QID PRN TP MUSCLE PAIN 07/06/21 00:30 Al Hydroxide/Mg Hydroxide (Mylanta Plus Xs) 15 ml PRN AFTMEALHC PRN PO DYSPEPSIA 07/06/21 00:30 Magnesium Hydroxide (Milk Of Magnesia) 2,400 mg PRN QHS PRN PO 2ND CHOICE CONSTIPATION 07/06/21 00:30 07/14/21 08:13 Duloxetine HCl (Cymbalta) 20 mg HS PO 07/06/21 21:00 07/18/21 20:56 Duloxetine HCl (Cymbalta) 30 mg HS PO 07/06/21 21:00 07/18/21 20:56 Mirtazapine (Remeron) 7.5 mg HS PO 07/06/21 21:00 07/18/21 20:57 Olanzapine (ZyPREXA ZYDIS) 2.5 mg PRN Q2HR PRN PO ANXIETY / AGITATION 07/06/21 01:15 07/17/21 23:39 Trazodone HCl (Desyrel) 50 mg PRN QHS PRN PO INSOMNIA 07/06/21 01:15 07/17/21 23:39 Acetaminophen (Tylenol) 650 mg PRN Q4HRS PRN PO PAIN 07/06/21 10:30 Aspirin (Aspirin Enteric Coated) 81 mg DAILY PO 07/07/21 09:00 07/18/21 07:58 Atorvastatin Calcium (Lipitor) 10 mg QHS PO 07/06/21 21:00 07/18/21 20:57 Carvedilol (Coreg) 3.125 mg BIDWMEALS PO 07/06/21 17:00 07/18/21 17:39 Gabapentin (Neurontin) 300 mg BID PO 07/06/21 21:00 07/18/21 20:57 Metformin HCl (Glucophage Xr) 500 mg DAILYWBKFT PO 07/07/21 08:00 07/18/21 07:59 Multi-Ingredient Ointment (Analgesic [place]) 1 inna PRN QID PRN TP PAIN 07/06/21 10:30 UNV Phenytoin Sodium (Dilantin) 500 mg HS PO 07/06/21 21:00 07/07/21 22:27 DC 07/07/21 20:05 Tamsulosin HCl (Flomax) 0.4 mg DAILY PO 07/07/21 09:00 07/18/21 07:59 Polyethylene Glycol (miraLAX) 17 gm PRN DAILY PRN PO 1ST CHOICE CONSTIPATION 07/06/21 10:45 Non-Formulary Medication (Pravastatin Sodium ) 40 mg DAILY PO 07/07/21 09:00 UNV Phenyleph/Shark Oil/Min Oil/Petrol (Preparation H) 1 inna PRN QID PRN RC RECTAL PAIN 07/06/21 15:15 Phenytoin Sodium (Dilantin) 400 mg HS PO 07/08/21 21:00 07/11/21 23:36 DC 07/11/21 20:35 Albuterol/ Ipratropium (Combivent Respimat 20-100 Mcg) 1 puff QID INH 07/08/21 13:00 07/18/21 20:57 Docusate Sodium (Colace) 100 mg DAILY PO 07/09/21 09:00 07/18/21 07:58 Guaifenesin (Mucinex Er) 600 mg BID PO 07/08/21 21:00 07/18/21 20:57 Magnesium Hydroxide (Milk Of Magnesia) 2,400 mg PRN QHS PRN PO 2nd CHOICE CONSTIPATION 07/08/21 19:30 Cancel Phenytoin Sodium (Dilantin) 200 mg HS PO 07/12/21 21:00 07/18/21 20:57 Phenytoin Sodium (Dilantin) 100 mg DAILY PO 07/12/21 09:00 07/18/21 07:58 I have reviewed the current psychotropics carefully including drug interactions. Risk benefit ratio favors no change other than as noted in my dictated progress note. Diagnosis: Problems: (1) Impulse control disorder, unspecified (2) Anxiety disorder, unspecified (3) Dementia, vascular, with depression (4) Dementia, vascular, with delusions (5) Major neurocognitive disorder (6) Dementia in Alzheimer's disease with depression (7) Dementia in Alzheimer's disease with delusions (8) Dementia of the Alzheimer's type with early onset with behavioral disturbance NIK LOYA MD Jul 18, 2021 21:58
--- NOTE | 2021-07-18 22:28 | NUR ---
Patient was in bed asleep at the beginning of this shift. Nurse woke patient up for HS medications and patient asked when breakfast was. Patient then asked what time it is. He stated he thought it was morning and he had slept all night. Patient compliant with medications taken whole. Patient has wheezing in lungs, scheduled inhaler used at HS. Patient has head of bed at 30* angle and does not appear to be having trouble breathing at this time, although he is coughing intermittently. Patient returned to sleep after nurse left room.
--- NOTE | 2021-07-19 01:18 | NUR ---
Patient has been up for over an hour, sitting on the side of the bed attempting to "spit up phlegm so he doesn't ". He is forcefully retching repeatedly. Nurse provided education to patient that he should drink more liquid to thin the secretions. Patient stated if he drinks the water he will drown. Nurse offered PRN trazodone to help patient sleep and he refused it. Will continue to monitor.
[2021-07-19 05:24] VITALS: BP 145/71
[2021-07-19] MEDS: PHENYTOIN SODIUM EXTENDED 100 MG CAPSULE PO SCH ×2 (08:27→20:42)
[2021-07-19] MEDS: ASPIRIN ENTERIC COATED 81 MG TABLET.DR. PO SCH (08:27)
[2021-07-19] MEDS: metFORMIN XR 500 MG TAB.ER.24H PO SCH (08:27)
[2021-07-19] MEDS: CARVEDILOL 3.125 MG TABLET PO SCH ×2 (08:27→17:05)
[2021-07-19] MEDS: DOCUSATE SODIUM 100 MG CAPSULE PO SCH (08:28)
[2021-07-19] MEDS: TAMSULOSIN 0.4 MG CAP.ER.24H. PO SCH (08:28)
[2021-07-19] MEDS: IPRATROPIUM/ALBUTEROL 20/100mcg/INH INHALER. INH SCH ×4 (08:28→20:38)
[2021-07-19] MEDS: GABAPENTIN 300 MG CAPSULE. PO SCH ×2 (08:28→20:43)
[2021-07-19 15:45] VITALS: BP 123/68
--- NOTE | 2021-07-19 18:21 | NUR ---
Patient has been withdrawn to his room, mildly confused, delusional, and compliant with medications. He continues to use the wheelchair and will not use his walker. Will continue to monitor and report to oncoming shift.
[2021-07-19] MEDS: DULoxetine HCL 20 MG CAPSULE.DR PO SCH (20:38)
[2021-07-19] MEDS: DULoxetine HCL 30 MG CAPSULE.DR PO SCH (20:38)
[2021-07-19] MEDS: ATORVASTATIN CALCIUM 10 MG TABLET. PO SCH (20:42)
[2021-07-19] MEDS: MIRTAZAPINE 7.5 MG TABLET. PO SCH (20:43)
--- NOTE | 2021-07-19 21:54 | PDOC ---
Exam Note: Leo Note: Please also refer to the separate dictated note~for this date of service dictated separately.~Patient seen individually. Discussed the patient with Nursing staff reviewed the chart.~Reviewed interim history and current functioning. Reviewed vital signs,~Labs/ Radiology~and current medications noted below. Continue current treatment with the changes noted in the dictated addendum note Assessment: Vital Signs/I&O: Vital Signs Date Time Temp Pulse Resp B/P (MAP) Pulse Ox O2 Delivery O2 Flow Rate FiO2 07/19/21 17:05 68 123/68 07/19/21 15:45 98.0 18 95 07/17/21 23:50 Room Air I & O 07/18/21 07/18/21 07/19/21 15:00 23:00 07:00 Intake Total 980 ml 160 ml Balance 980 ml 160 ml Labs: Laboratory Tests Test 07/19/21 07:06 Glucose (Fingerstick) 143 mg/dL (70-99) H Current Medications: Meds: Laboratory Tests Test 07/19/21 07:06 Glucose (Fingerstick) 143 mg/dL Current Medications Medications (Trade) Dose Ordered Sig/Aparna Route PRN Reason Start Time Stop Time Status Last Admin Dose Admin Acetaminophen (Tylenol) 650 mg PRN Q6HRS PRN PO MILD PAIN / TEMP > 100.3'F 07/06/21 00:30 Cancel Multi-Ingredient Ointment (Analgesic [place]) 1 inna PRN QID PRN TP MUSCLE PAIN 07/06/21 00:30 Al Hydroxide/Mg Hydroxide (Mylanta Plus Xs) 15 ml PRN AFTMEALHC PRN PO DYSPEPSIA 07/06/21 00:30 Magnesium Hydroxide (Milk Of Magnesia) 2,400 mg PRN QHS PRN PO 2ND CHOICE CONSTIPATION 07/06/21 00:30 07/14/21 08:13 Duloxetine HCl (Cymbalta) 20 mg HS PO 07/06/21 21:00 07/19/21 20:38 Duloxetine HCl (Cymbalta) 30 mg HS PO 07/06/21 21:00 07/19/21 20:38 Mirtazapine (Remeron) 7.5 mg HS PO 07/06/21 21:00 07/19/21 20:43 Olanzapine (ZyPREXA ZYDIS) 2.5 mg PRN Q2HR PRN PO ANXIETY / AGITATION 07/06/21 01:15 07/17/21 23:39 Trazodone HCl (Desyrel) 50 mg PRN QHS PRN PO INSOMNIA 07/06/21 01:15 07/17/21 23:39 Acetaminophen (Tylenol) 650 mg PRN Q4HRS PRN PO PAIN 07/06/21 10:30 Aspirin (Aspirin Enteric Coated) 81 mg DAILY PO 07/07/21 09:00 07/19/21 08:27 Atorvastatin Calcium (Lipitor) 10 mg QHS PO 07/06/21 21:00 07/19/21 20:42 Carvedilol (Coreg) 3.125 mg BIDWMEALS PO 07/06/21 17:00 07/19/21 17:05 Gabapentin (Neurontin) 300 mg BID PO 07/06/21 21:00 07/19/21 20:43 Metformin HCl (Glucophage Xr) 500 mg DAILYWBKFT PO 07/07/21 08:00 07/19/21 08:27 Multi-Ingredient Ointment (Analgesic [place]) 1 inna PRN QID PRN TP PAIN 07/06/21 10:30 UNV Phenytoin Sodium (Dilantin) 500 mg HS PO 07/06/21 21:00 07/07/21 22:27 DC 07/07/21 20:05 Tamsulosin HCl (Flomax) 0.4 mg DAILY PO 07/07/21 09:00 07/19/21 08:28 Polyethylene Glycol (miraLAX) 17 gm PRN DAILY PRN PO 1ST CHOICE CONSTIPATION 07/06/21 10:45 Non-Formulary Medication (Pravastatin Sodium ) 40 mg DAILY PO 07/07/21 09:00 UNV Phenyleph/Shark Oil/Min Oil/Petrol (Preparation H) 1 inna PRN QID PRN RC RECTAL PAIN 07/06/21 15:15 Phenytoin Sodium (Dilantin) 400 mg HS PO 07/08/21 21:00 07/11/21 23:36 DC 07/11/21 20:35 Albuterol/ Ipratropium (Combivent Respimat 20-100 Mcg) 1 puff QID INH 07/08/21 13:00 07/19/21 20:38 Docusate Sodium (Colace) 100 mg DAILY PO 07/09/21 09:00 07/19/21 08:28 Guaifenesin (Mucinex Er) 600 mg BID PO 07/08/21 21:00 07/19/21 20:42 Magnesium Hydroxide (Milk Of Magnesia) 2,400 mg PRN QHS PRN PO 2nd CHOICE CONSTIPATION 07/08/21 19:30 Cancel Phenytoin Sodium (Dilantin) 200 mg HS PO 07/12/21 21:00 07/19/21 20:42 Phenytoin Sodium (Dilantin) 100 mg DAILY PO 07/12/21 09:00 07/19/21 08:27 I have reviewed the current psychotropics carefully including drug interactions. Risk benefit ratio favors no change other than as noted in my dictated progress note. 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
--- NOTE | 2021-07-19 23:15 | NUR ---
Pt located in his room this evening. Pt laying in bed with HOB elevated. Continues to have wheezes throughout, productive cough. Compliant with whole medications.
[2021-07-20 06:36] VITALS: BP 162/80
[2021-07-20] MEDS: IPRATROPIUM/ALBUTEROL 20/100mcg/INH INHALER. INH SCH ×4 (08:29→20:16)
[2021-07-20] MEDS: GABAPENTIN 300 MG CAPSULE. PO SCH ×2 (08:30→20:17)
[2021-07-20] MEDS: DOCUSATE SODIUM 100 MG CAPSULE PO SCH (08:30)
[2021-07-20] MEDS: metFORMIN XR 500 MG TAB.ER.24H PO SCH (08:30)
[2021-07-20] MEDS: ASPIRIN ENTERIC COATED 81 MG TABLET.DR. PO SCH (08:30)
[2021-07-20] MEDS: PHENYTOIN SODIUM EXTENDED 100 MG CAPSULE PO SCH ×2 (08:30→20:17)
[2021-07-20] MEDS: CARVEDILOL 3.125 MG TABLET PO SCH ×2 (08:30→17:13)
[2021-07-20] MEDS: TAMSULOSIN 0.4 MG CAP.ER.24H. PO SCH (08:30)
--- NOTE | 2021-07-20 11:06 | NUR ---
Pt was calm cooperative, and medication compliant today. After breakfast he went back to his room and laid back down to sleep until lunch time. Pt has been withdrawn to his room for most of the day, except when he is attending meals.
[2021-07-20 11:07] LABS: BASO % 1 % (0-3); EOS # 0.8 x10^3/uL (0.0-0.7); EOS % 13 % (0-3); HEMATOCRIT 33.5 % (39.0-53.0); LYMPH # 1.7 x10^3/uL (1.0-4.8); LYMPH % 26 % (24-48); MEAN CORPUSCULAR HEMOGLOBIN 34 pg (25-35); MEAN CORPUSCULAR HGB CONC 33 g/dL (31-37); MEAN CORPUSCULAR VOLUME 103 fL (79-100); MONO # 0.6 x10^3/uL (0.0-1.1); MONO % 10 % (0-9); NEUT # 3.2 x10^3uL (1.8-7.7); NEUT % 50 % (31-73); PLATELET COUNT 111 x10^3/uL (140-400); RED BLOOD COUNT 3.24 x10^6/uL (4.30-5.70); RED CELL DISTRIBUTION WIDTH 14.7 % (11.5-14.5); WHITE BLOOD COUNT 6.4 x10^3/uL (4.0-11.0)
[2021-07-20 11:31] LABS: ALBUMIN/GLOBULIN RATIO 0.9 (1.0-1.7); CALCIUM 8.3 mg/dL (8.5-10.1); CREATININE 1.4 mg/dL (0.7-1.3); GFR 48.9; POTASSIUM 4.3 mmol/L (3.5-5.1); TOTAL BILIRUBIN 0.2 mg/dL (0.2-1.0); TOTAL PROTEIN 6.2 g/dL (6.4-8.2)
[2021-07-20 12:34] LABS: % EOS 10 % (0-5); % LYMPHS 19 % (24-48); % MONOS 8 % (0-10); % SEGS 63 % (35-66); PLT ESTIMATE DECREASED (ADEQUATE)
[2021-07-20 16:03] VITALS: BP 131/75
[2021-07-20] MEDS: DULoxetine HCL 20 MG CAPSULE.DR PO SCH (20:16)
[2021-07-20] MEDS: DULoxetine HCL 30 MG CAPSULE.DR PO SCH (20:17)
[2021-07-20] MEDS: traZODone 50 MG TABLET. PO PRN (20:17)
[2021-07-20] MEDS: MIRTAZAPINE 7.5 MG TABLET. PO SCH (20:17)
[2021-07-20] MEDS: ATORVASTATIN CALCIUM 10 MG TABLET. PO SCH (20:17)
--- NOTE | 2021-07-20 23:31 | NUR ---
Pt sitting up in w/c in his room when approached. Pt irritable, demanding, and upset that "a woman has to give a man a shower around here". Pt demanding that his bed be made and when he was told that it would be done when someone was available to help with that, he reported "I want it made now, I want to lay down". Pt cooperative with assessment and compliant with medications administered whole. PRN Trazodone administered with HS medications for sleep.
[2021-07-21 05:55] VITALS: BP 169/72
--- NOTE | 2021-07-21 06:29 | PDOC ---
Exam Note: Leo Note: This note is a late entry for 07/18/2021 covers elements not covered in my initial note. Subjective: The patient was seen face to face in the evening of 07/18/2021 with Lana KOWALSKI, discussed and reviewed the chart. The patient slept 6 hours previous night. He remains somewhat somatic. He stripped himself naked around dinner time. He was anxious, quite somatically preoccupied previous evening stating he was dying having a fairly persistent cough. We will defer to Dr. Villarreal. Chest x-ray shows right patchy infiltrates. Review of Systems: Ambulation impaired, in wheelchair. No CV, , pulmonary, eye, ENT system symptoms on review. Mental Status Exam: The patient is oriented to himself and situation. Speech coherent, has some latency. Abstraction fair. Computation impaired. Language function intact. Short-term memory impaired. No suicidal or homicidal ideation. Laboratory Data: Reviewed. Impression: Major neurocognitive disorder, Alzheimer, vascular with delusion, depression, behavioral disturbance. Anxiety disorder unspecified. Impulse control disorder unspecified. Assessment: Vital Signs/I&O: Vital Signs Date Time Temp Pulse Resp B/P (MAP) Pulse Ox O2 Delivery O2 Flow Rate FiO2 07/21/21 05:55 98.6 89 22 169/72 (104) 94 07/17/21 23:50 Room Air I & O 07/20/21 07/20/21 07/21/21 14:59 22:59 06:59 Intake Total 840 ml 480 ml 120 ml Balance 840 ml 480 ml 120 ml Labs: Laboratory Tests Test 07/20/21 07:36 07/20/21 10:50 Glucose (Fingerstick) 143 mg/dL (70-99) H White Blood Count 6.4 x10^3/uL (4.0-11.0) Red Blood Count 3.24 x10^6/uL (4.30-5.70) L Hemoglobin 11.0 g/dL (13.0-17.5) L Hematocrit 33.5 % (39.0-53.0) L Mean Corpuscular Volume 103 fL (79-100) H Mean Corpuscular Hemoglobin 34 pg (25-35) Mean Corpuscular Hemoglobin Concent 33 g/dL (31-37) Red Cell Distribution Width 14.7 % (11.5-14.5) H Platelet Count 111 x10^3/uL (140-400) L Neutrophils (%) (Auto) 50 % (31-73) Lymphocytes (%) (Auto) 26 % (24-48) Monocytes (%) (Auto) 10 % (0-9) H Eosinophils (%) (Auto) 13 % (0-3) H Basophils (%) (Auto) 1 % (0-3) Neutrophils # (Auto) 3.2 x10^3uL (1.8-7.7) Lymphocytes # (Auto) 1.7 x10^3/uL (1.0-4.8) Monocytes # (Auto) 0.6 x10^3/uL (0.0-1.1) Eosinophils # (Auto) 0.8 x10^3/uL (0.0-0.7) H Basophils # (Auto) 0.0 x10^3/uL (0.0-0.2) Segmented Neutrophils % 63 % (35-66) Lymphocytes % 19 % (24-48) L Monocytes % 8 % (0-10) Eosinophils % 10 % (0-5) H Platelet Estimate Decreased (ADEQUATE) Sodium Level 142 mmol/L (136-145) Potassium Level 4.3 mmol/L (3.5-5.1) Chloride Level 108 mmol/L (98-107) H Carbon Dioxide Level 30 mmol/L (21-32) Anion Gap 4 (6-14) L Blood Urea Nitrogen 47 mg/dL (8-26) H Creatinine 1.4 mg/dL (0.7-1.3) H Estimated GFR (Cockcroft-Gault) 48.9 BUN/Creatinine Ratio 34 (6-20) H Glucose Level 285 mg/dL (70-99) H Calcium Level 8.3 mg/dL (8.5-10.1) L Total Bilirubin 0.2 mg/dL (0.2-1.0) Aspartate Amino Transferase (AST) 19 U/L (15-37) Alanine Aminotransferase (ALT) 21 U/L (16-63) Alkaline Phosphatase 120 U/L (46-116) H Total Protein 6.2 g/dL (6.4-8.2) L Albumin 3.0 g/dL (3.4-5.0) L Albumin/Globulin Ratio 0.9 (1.0-1.7) L Current Medications: Meds: Laboratory Tests Test 07/20/21 07:36 07/20/21 10:50 Glucose (Fingerstick) 143 mg/dL White Blood Count 6.4 x10^3/uL Red Blood Count 3.24 x10^6/uL Hemoglobin 11.0 g/dL Hematocrit 33.5 % Mean Corpuscular Volume 103 fL Mean Corpuscular Hemoglobin 34 pg Mean Corpuscular Hemoglobin Concent 33 g/dL Red Cell Distribution Width 14.7 % Platelet Count 111 x10^3/uL Neutrophils (%) (Auto) 50 % Lymphocytes (%) (Auto) 26 % Monocytes (%) (Auto) 10 % Eosinophils (%) (Auto) 13 % Basophils (%) (Auto) 1 % Neutrophils # (Auto) 3.2 x10^3uL Lymphocytes # (Auto) 1.7 x10^3/uL Monocytes # (Auto) 0.6 x10^3/uL Eosinophils # (Auto) 0.8 x10^3/uL Basophils # (Auto) 0.0 x10^3/uL Segmented Neutrophils % 63 % Lymphocytes % 19 % Monocytes % 8 % Eosinophils % 10 % Platelet Estimate Decreased Sodium Level 142 mmol/L Potassium Level 4.3 mmol/L Chloride Level 108 mmol/L Carbon Dioxide Level 30 mmol/L Anion Gap 4 Blood Urea Nitrogen 47 mg/dL Creatinine 1.4 mg/dL Estimated GFR (Cockcroft-Gault) 48.9 BUN/Creatinine Ratio 34 Glucose Level 285 mg/dL Calcium Level 8.3 mg/dL Total Bilirubin 0.2 mg/dL Aspartate Amino Transf (AST/SGOT) 19 U/L Alanine Aminotransferase (ALT/SGPT) 21 U/L Alkaline Phosphatase 120 U/L Total Protein 6.2 g/dL Albumin 3.0 g/dL Albumin/Globulin Ratio 0.9 Current Medications Medications (Trade) Dose Ordered Sig/Aparna Route PRN Reason Start Time Stop Time Status Last Admin Dose Admin Acetaminophen (Tylenol) 650 mg PRN Q6HRS PRN PO MILD PAIN / TEMP > 100.3'F 07/06/21 00:30 Cancel Multi-Ingredient Ointment (Analgesic [place]) 1 inna PRN QID PRN TP MUSCLE PAIN 07/06/21 00:30 Al Hydroxide/Mg Hydroxide (Mylanta Plus Xs) 15 ml PRN AFTMEALHC PRN PO DYSPEPSIA 07/06/21 00:30 Magnesium Hydroxide (Milk Of Magnesia) 2,400 mg PRN QHS PRN PO 2ND CHOICE CONSTIPATION 07/06/21 00:30 07/14/21 08:13 Duloxetine HCl (Cymbalta) 20 mg HS PO 07/06/21 21:00 07/20/21 20:16 Duloxetine HCl (Cymbalta) 30 mg HS PO 07/06/21 21:00 07/20/21 20:17 Mirtazapine (Remeron) 7.5 mg HS PO 07/06/21 21:00 07/20/21 20:17 Olanzapine (ZyPREXA ZYDIS) 2.5 mg PRN Q2HR PRN PO ANXIETY / AGITATION 07/06/21 01:15 07/17/21 23:39 Trazodone HCl (Desyrel) 50 mg PRN QHS PRN PO INSOMNIA 07/06/21 01:15 07/20/21 20:17 Acetaminophen (Tylenol) 650 mg PRN Q4HRS PRN PO PAIN 07/06/21 10:30 Aspirin (Aspirin Enteric Coated) 81 mg DAILY PO 07/07/21 09:00 07/20/21 08:30 Atorvastatin Calcium (Lipitor) 10 mg QHS PO 07/06/21 21:00 07/20/21 20:17 Carvedilol (Coreg) 3.125 mg BIDWMEALS PO 07/06/21 17:00 07/20/21 17:13 Gabapentin (Neurontin) 300 mg BID PO 07/06/21 21:00 07/20/21 20:17 Metformin HCl (Glucophage Xr) 500 mg DAILYWBKFT PO 07/07/21 08:00 07/20/21 08:30 Multi-Ingredient Ointment (Analgesic [place]) 1 inna PRN QID PRN TP PAIN 07/06/21 10:30 UNV Phenytoin Sodium (Dilantin) 500 mg HS PO 07/06/21 21:00 07/07/21 22:27 DC 07/07/21 20:05 Tamsulosin HCl (Flomax) 0.4 mg DAILY PO 07/07/21 09:00 07/20/21 08:30 Polyethylene Glycol (miraLAX) 17 gm PRN DAILY PRN PO 1ST CHOICE CONSTIPATION 07/06/21 10:45 Non-Formulary Medication (Pravastatin Sodium ) 40 mg DAILY PO 07/07/21 09:00 UNV Phenyleph/Shark Oil/Min Oil/Petrol (Preparation H) 1 inna PRN QID PRN RC RECTAL PAIN 07/06/21 15:15 Phenytoin Sodium (Dilantin) 400 mg HS PO 07/08/21 21:00 07/11/21 23:36 DC 07/11/21 20:35 Albuterol/ Ipratropium (Combivent Respimat 20-100 Mcg) 1 puff QID INH 07/08/21 13:00 07/20/21 20:16 Docusate Sodium (Colace) 100 mg DAILY PO 07/09/21 09:00 07/20/21 08:30 Guaifenesin (Mucinex Er) 600 mg BID PO 07/08/21 21:00 07/20/21 20:17 Magnesium Hydroxide (Milk Of Magnesia) 2,400 mg PRN QHS PRN PO 2nd CHOICE CONSTIPATION 07/08/21 19:30 Cancel Phenytoin Sodium (Dilantin) 200 mg HS PO 07/12/21 21:00 07/20/21 20:17 Phenytoin Sodium (Dilantin) 100 mg DAILY PO 07/12/21 09:00 07/20/21 08:30 I have reviewed the current psychotropics carefully including drug interactions. Risk benefit ratio favors no change other than as noted in my dictated progress note. 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
--- NOTE | 2021-07-21 06:43 | PDOC ---
Exam Note: Leo Note: This note is a late entry for 07/19/2021 covers elements not covered in my initial note. Subjective: The patient was seen face to face in the evening of 07/19/2021 with Tenisha KOWALSKI, discussed and reviewed the chart. The patient slept 5 hours previous night. He is doing a little better. Hacking cough is less. I met with him in his room. Review of Systems: Ambulation impaired, in wheelchair. No CV, , eye, ENT system symptoms on review. Mental Status Exam: The patient is awake, alert and oriented to himself and situation. Speech is coherent has some latency. Abstraction fair. Computation impaired. Mood and affect slightly anxious, mildly dysphoric. No suicidal or homicidal ideation. Laboratory Data: Reviewed. Impression: Major neurocognitive disorder, Alzheimer, vascular with delusion, depression, behavioral disturbance. Anxiety disorder unspecified. Impulse control disorder unspecified. Plan: Continue psychotropics from initial note. Assessment: Vital Signs/I&O: Vital Signs Date Time Temp Pulse Resp B/P (MAP) Pulse Ox O2 Delivery O2 Flow Rate FiO2 07/21/21 05:55 98.6 89 22 169/72 (104) 94 07/17/21 23:50 Room Air I & O 07/20/21 07/20/21 07/21/21 14:59 22:59 06:59 Intake Total 840 ml 480 ml 120 ml Balance 840 ml 480 ml 120 ml Labs: Laboratory Tests Test 07/20/21 07:36 07/20/21 10:50 Glucose (Fingerstick) 143 mg/dL (70-99) H White Blood Count 6.4 x10^3/uL (4.0-11.0) Red Blood Count 3.24 x10^6/uL (4.30-5.70) L Hemoglobin 11.0 g/dL (13.0-17.5) L Hematocrit 33.5 % (39.0-53.0) L Mean Corpuscular Volume 103 fL (79-100) H Mean Corpuscular Hemoglobin 34 pg (25-35) Mean Corpuscular Hemoglobin Concent 33 g/dL (31-37) Red Cell Distribution Width 14.7 % (11.5-14.5) H Platelet Count 111 x10^3/uL (140-400) L Neutrophils (%) (Auto) 50 % (31-73) Lymphocytes (%) (Auto) 26 % (24-48) Monocytes (%) (Auto) 10 % (0-9) H Eosinophils (%) (Auto) 13 % (0-3) H Basophils (%) (Auto) 1 % (0-3) Neutrophils # (Auto) 3.2 x10^3uL (1.8-7.7) Lymphocytes # (Auto) 1.7 x10^3/uL (1.0-4.8) Monocytes # (Auto) 0.6 x10^3/uL (0.0-1.1) Eosinophils # (Auto) 0.8 x10^3/uL (0.0-0.7) H Basophils # (Auto) 0.0 x10^3/uL (0.0-0.2) Segmented Neutrophils % 63 % (35-66) Lymphocytes % 19 % (24-48) L Monocytes % 8 % (0-10) Eosinophils % 10 % (0-5) H Platelet Estimate Decreased (ADEQUATE) Sodium Level 142 mmol/L (136-145) Potassium Level 4.3 mmol/L (3.5-5.1) Chloride Level 108 mmol/L (98-107) H Carbon Dioxide Level 30 mmol/L (21-32) Anion Gap 4 (6-14) L Blood Urea Nitrogen 47 mg/dL (8-26) H Creatinine 1.4 mg/dL (0.7-1.3) H Estimated GFR (Cockcroft-Gault) 48.9 BUN/Creatinine Ratio 34 (6-20) H Glucose Level 285 mg/dL (70-99) H Calcium Level 8.3 mg/dL (8.5-10.1) L Total Bilirubin 0.2 mg/dL (0.2-1.0) Aspartate Amino Transferase (AST) 19 U/L (15-37) Alanine Aminotransferase (ALT) 21 U/L (16-63) Alkaline Phosphatase 120 U/L (46-116) H Total Protein 6.2 g/dL (6.4-8.2) L Albumin 3.0 g/dL (3.4-5.0) L Albumin/Globulin Ratio 0.9 (1.0-1.7) L Current Medications: Meds: Laboratory Tests Test 07/20/21 07:36 07/20/21 10:50 Glucose (Fingerstick) 143 mg/dL White Blood Count 6.4 x10^3/uL Red Blood Count 3.24 x10^6/uL Hemoglobin 11.0 g/dL Hematocrit 33.5 % Mean Corpuscular Volume 103 fL Mean Corpuscular Hemoglobin 34 pg Mean Corpuscular Hemoglobin Concent 33 g/dL Red Cell Distribution Width 14.7 % Platelet Count 111 x10^3/uL Neutrophils (%) (Auto) 50 % Lymphocytes (%) (Auto) 26 % Monocytes (%) (Auto) 10 % Eosinophils (%) (Auto) 13 % Basophils (%) (Auto) 1 % Neutrophils # (Auto) 3.2 x10^3uL Lymphocytes # (Auto) 1.7 x10^3/uL Monocytes # (Auto) 0.6 x10^3/uL Eosinophils # (Auto) 0.8 x10^3/uL Basophils # (Auto) 0.0 x10^3/uL Segmented Neutrophils % 63 % Lymphocytes % 19 % Monocytes % 8 % Eosinophils % 10 % Platelet Estimate Decreased Sodium Level 142 mmol/L Potassium Level 4.3 mmol/L Chloride Level 108 mmol/L Carbon Dioxide Level 30 mmol/L Anion Gap 4 Blood Urea Nitrogen 47 mg/dL Creatinine 1.4 mg/dL Estimated GFR (Cockcroft-Gault) 48.9 BUN/Creatinine Ratio 34 Glucose Level 285 mg/dL Calcium Level 8.3 mg/dL Total Bilirubin 0.2 mg/dL Aspartate Amino Transf (AST/SGOT) 19 U/L Alanine Aminotransferase (ALT/SGPT) 21 U/L Alkaline Phosphatase 120 U/L Total Protein 6.2 g/dL Albumin 3.0 g/dL Albumin/Globulin Ratio 0.9 Current Medications Medications (Trade) Dose Ordered Sig/Aparna Route PRN Reason Start Time Stop Time Status Last Admin Dose Admin Acetaminophen (Tylenol) 650 mg PRN Q6HRS PRN PO MILD PAIN / TEMP > 100.3'F 07/06/21 00:30 Cancel Multi-Ingredient Ointment (Analgesic [place]) 1 inna PRN QID PRN TP MUSCLE PAIN 07/06/21 00:30 Al Hydroxide/Mg Hydroxide (Mylanta Plus Xs) 15 ml PRN AFTMEALHC PRN PO DYSPEPSIA 07/06/21 00:30 Magnesium Hydroxide (Milk Of Magnesia) 2,400 mg PRN QHS PRN PO 2ND CHOICE CONSTIPATION 07/06/21 00:30 07/14/21 08:13 Duloxetine HCl (Cymbalta) 20 mg HS PO 07/06/21 21:00 07/20/21 20:16 Duloxetine HCl (Cymbalta) 30 mg HS PO 07/06/21 21:00 07/20/21 20:17 Mirtazapine (Remeron) 7.5 mg HS PO 07/06/21 21:00 07/20/21 20:17 Olanzapine (ZyPREXA ZYDIS) 2.5 mg PRN Q2HR PRN PO ANXIETY / AGITATION 07/06/21 01:15 07/17/21 23:39 Trazodone HCl (Desyrel) 50 mg PRN QHS PRN PO INSOMNIA 07/06/21 01:15 07/20/21 20:17 Acetaminophen (Tylenol) 650 mg PRN Q4HRS PRN PO PAIN 07/06/21 10:30 Aspirin (Aspirin Enteric Coated) 81 mg DAILY PO 07/07/21 09:00 07/20/21 08:30 Atorvastatin Calcium (Lipitor) 10 mg QHS PO 07/06/21 21:00 07/20/21 20:17 Carvedilol (Coreg) 3.125 mg BIDWMEALS PO 07/06/21 17:00 07/20/21 17:13 Gabapentin (Neurontin) 300 mg BID PO 07/06/21 21:00 07/20/21 20:17 Metformin HCl (Glucophage Xr) 500 mg DAILYWBKFT PO 07/07/21 08:00 07/20/21 08:30 Multi-Ingredient Ointment (Analgesic [place]) 1 inna PRN QID PRN TP PAIN 07/06/21 10:30 UNV Phenytoin Sodium (Dilantin) 500 mg HS PO 07/06/21 21:00 07/07/21 22:27 DC 07/07/21 20:05 Tamsulosin HCl (Flomax) 0.4 mg DAILY PO 07/07/21 09:00 07/20/21 08:30 Polyethylene Glycol (miraLAX) 17 gm PRN DAILY PRN PO 1ST CHOICE CONSTIPATION 07/06/21 10:45 Non-Formulary Medication (Pravastatin Sodium ) 40 mg DAILY PO 07/07/21 09:00 UNV Phenyleph/Shark Oil/Min Oil/Petrol (Preparation H) 1 inna PRN QID PRN RC RECTAL PAIN 07/06/21 15:15 Phenytoin Sodium (Dilantin) 400 mg HS PO 07/08/21 21:00 07/11/21 23:36 DC 07/11/21 20:35 Albuterol/ Ipratropium (Combivent Respimat 20-100 Mcg) 1 puff QID INH 07/08/21 13:00 07/20/21 20:16 Docusate Sodium (Colace) 100 mg DAILY PO 07/09/21 09:00 07/20/21 08:30 Guaifenesin (Mucinex Er) 600 mg BID PO 07/08/21 21:00 07/20/21 20:17 Magnesium Hydroxide (Milk Of Magnesia) 2,400 mg PRN QHS PRN PO 2nd CHOICE CONSTIPATION 07/08/21 19:30 Cancel Phenytoin Sodium (Dilantin) 200 mg HS PO 07/12/21 21:00 07/20/21 20:17 Phenytoin Sodium (Dilantin) 100 mg DAILY PO 07/12/21 09:00 07/20/21 08:30 I have reviewed the current psychotropics carefully including drug interactions. Risk benefit ratio favors no change other than as noted in my dictated progress note. 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
--- NOTE | 2021-07-21 06:54 | PDOC ---
Exam Note: Leo Note: This note is a late entry for 07/20/2021 covers elements not covered in my initial note. Subjective: The patient was seen face to face in the evening of 07/20/2021 with Shakira KOWALSKI, discussed and reviewed the chart. The patient slept 2-3/4 hours previous night. He has been withdrawn, spending much time in his room, irritable with showers. 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 Short-term memory is impaired but overall better individually but somewhat irritable as noted during the day. Review of Systems: Ambulation impaired, in wheelchair. No CV, , pulmonary, eye, ENT system symptoms on review. Mental Status Exam: The patient is awake, alert and oriented to himself and situation. Speech coherent. Abstraction fair. Computation impaired. Language function intact. Mood and affect labile Laboratory Data: Reviewed. Impression: Major neurocognitive disorder, Alzheimer, vascular with delusion, depression, behavioral disturbance. Anxiety disorder unspecified. Impulse control disorder unspecified. Plan: Continue psychotropics from initial note. The patients Dilantin level is therapeutic. We will continue at 100 mg a day. Maintain Cymbalta, Remeron, gabapentin unchanged. Assessment: Vital Signs/I&O: Vital Signs Date Time Temp Pulse Resp B/P (MAP) Pulse Ox O2 Delivery O2 Flow Rate FiO2 07/21/21 05:55 98.6 89 22 169/72 (104) 94 07/17/21 23:50 Room Air I & O 07/20/21 07/20/21 07/21/21 15:00 23:00 07:00 Intake Total 840 ml 480 ml 120 ml Balance 840 ml 480 ml 120 ml Labs: Laboratory Tests Test 07/20/21 07:36 07/20/21 10:50 Glucose (Fingerstick) 143 mg/dL (70-99) H White Blood Count 6.4 x10^3/uL (4.0-11.0) Red Blood Count 3.24 x10^6/uL (4.30-5.70) L Hemoglobin 11.0 g/dL (13.0-17.5) L Hematocrit 33.5 % (39.0-53.0) L Mean Corpuscular Volume 103 fL (79-100) H Mean Corpuscular Hemoglobin 34 pg (25-35) Mean Corpuscular Hemoglobin Concent 33 g/dL (31-37) Red Cell Distribution Width 14.7 % (11.5-14.5) H Platelet Count 111 x10^3/uL (140-400) L Neutrophils (%) (Auto) 50 % (31-73) Lymphocytes (%) (Auto) 26 % (24-48) Monocytes (%) (Auto) 10 % (0-9) H Eosinophils (%) (Auto) 13 % (0-3) H Basophils (%) (Auto) 1 % (0-3) Neutrophils # (Auto) 3.2 x10^3uL (1.8-7.7) Lymphocytes # (Auto) 1.7 x10^3/uL (1.0-4.8) Monocytes # (Auto) 0.6 x10^3/uL (0.0-1.1) Eosinophils # (Auto) 0.8 x10^3/uL (0.0-0.7) H Basophils # (Auto) 0.0 x10^3/uL (0.0-0.2) Segmented Neutrophils % 63 % (35-66) Lymphocytes % 19 % (24-48) L Monocytes % 8 % (0-10) Eosinophils % 10 % (0-5) H Platelet Estimate Decreased (ADEQUATE) Sodium Level 142 mmol/L (136-145) Potassium Level 4.3 mmol/L (3.5-5.1) Chloride Level 108 mmol/L (98-107) H Carbon Dioxide Level 30 mmol/L (21-32) Anion Gap 4 (6-14) L Blood Urea Nitrogen 47 mg/dL (8-26) H Creatinine 1.4 mg/dL (0.7-1.3) H Estimated GFR (Cockcroft-Gault) 48.9 BUN/Creatinine Ratio 34 (6-20) H Glucose Level 285 mg/dL (70-99) H Calcium Level 8.3 mg/dL (8.5-10.1) L Total Bilirubin 0.2 mg/dL (0.2-1.0) Aspartate Amino Transferase (AST) 19 U/L (15-37) Alanine Aminotransferase (ALT) 21 U/L (16-63) Alkaline Phosphatase 120 U/L (46-116) H Total Protein 6.2 g/dL (6.4-8.2) L Albumin 3.0 g/dL (3.4-5.0) L Albumin/Globulin Ratio 0.9 (1.0-1.7) L Current Medications: Meds: Laboratory Tests Test 07/20/21 07:36 07/20/21 10:50 Glucose (Fingerstick) 143 mg/dL White Blood Count 6.4 x10^3/uL Red Blood Count 3.24 x10^6/uL Hemoglobin 11.0 g/dL Hematocrit 33.5 % Mean Corpuscular Volume 103 fL Mean Corpuscular Hemoglobin 34 pg Mean Corpuscular Hemoglobin Concent 33 g/dL Red Cell Distribution Width 14.7 % Platelet Count 111 x10^3/uL Neutrophils (%) (Auto) 50 % Lymphocytes (%) (Auto) 26 % Monocytes (%) (Auto) 10 % Eosinophils (%) (Auto) 13 % Basophils (%) (Auto) 1 % Neutrophils # (Auto) 3.2 x10^3uL Lymphocytes # (Auto) 1.7 x10^3/uL Monocytes # (Auto) 0.6 x10^3/uL Eosinophils # (Auto) 0.8 x10^3/uL Basophils # (Auto) 0.0 x10^3/uL Segmented Neutrophils % 63 % Lymphocytes % 19 % Monocytes % 8 % Eosinophils % 10 % Platelet Estimate Decreased Sodium Level 142 mmol/L Potassium Level 4.3 mmol/L Chloride Level 108 mmol/L Carbon Dioxide Level 30 mmol/L Anion Gap 4 Blood Urea Nitrogen 47 mg/dL Creatinine 1.4 mg/dL Estimated GFR (Cockcroft-Gault) 48.9 BUN/Creatinine Ratio 34 Glucose Level 285 mg/dL Calcium Level 8.3 mg/dL Total Bilirubin 0.2 mg/dL Aspartate Amino Transf (AST/SGOT) 19 U/L Alanine Aminotransferase (ALT/SGPT) 21 U/L Alkaline Phosphatase 120 U/L Total Protein 6.2 g/dL Albumin 3.0 g/dL Albumin/Globulin Ratio 0.9 Current Medications Medications (Trade) Dose Ordered Sig/Aparna Route PRN Reason Start Time Stop Time Status Last Admin Dose Admin Acetaminophen (Tylenol) 650 mg PRN Q6HRS PRN PO MILD PAIN / TEMP > 100.3'F 07/06/21 00:30 Cancel Multi-Ingredient Ointment (Analgesic [place]) 1 inna PRN QID PRN TP MUSCLE PAIN 07/06/21 00:30 Al Hydroxide/Mg Hydroxide (Mylanta Plus Xs) 15 ml PRN AFTMEALHC PRN PO DYSPEPSIA 07/06/21 00:30 Magnesium Hydroxide (Milk Of Magnesia) 2,400 mg PRN QHS PRN PO 2ND CHOICE CONSTIPATION 07/06/21 00:30 07/14/21 08:13 Duloxetine HCl (Cymbalta) 20 mg HS PO 07/06/21 21:00 07/20/21 20:16 Duloxetine HCl (Cymbalta) 30 mg HS PO 07/06/21 21:00 07/20/21 20:17 Mirtazapine (Remeron) 7.5 mg HS PO 07/06/21 21:00 07/20/21 20:17 Olanzapine (ZyPREXA ZYDIS) 2.5 mg PRN Q2HR PRN PO ANXIETY / AGITATION 07/06/21 01:15 07/17/21 23:39 Trazodone HCl (Desyrel) 50 mg PRN QHS PRN PO INSOMNIA 07/06/21 01:15 07/20/21 20:17 Acetaminophen (Tylenol) 650 mg PRN Q4HRS PRN PO PAIN 07/06/21 10:30 Aspirin (Aspirin Enteric Coated) 81 mg DAILY PO 07/07/21 09:00 07/20/21 08:30 Atorvastatin Calcium (Lipitor) 10 mg QHS PO 07/06/21 21:00 07/20/21 20:17 Carvedilol (Coreg) 3.125 mg BIDWMEALS PO 07/06/21 17:00 07/20/21 17:13 Gabapentin (Neurontin) 300 mg BID PO 07/06/21 21:00 07/20/21 20:17 Metformin HCl (Glucophage Xr) 500 mg DAILYWBKFT PO 07/07/21 08:00 07/20/21 08:30 Multi-Ingredient Ointment (Analgesic [place]) 1 inna PRN QID PRN TP PAIN 07/06/21 10:30 UNV Phenytoin Sodium (Dilantin) 500 mg HS PO 07/06/21 21:00 07/07/21 22:27 DC 07/07/21 20:05 Tamsulosin HCl (Flomax) 0.4 mg DAILY PO 07/07/21 09:00 07/20/21 08:30 Polyethylene Glycol (miraLAX) 17 gm PRN DAILY PRN PO 1ST CHOICE CONSTIPATION 07/06/21 10:45 Non-Formulary Medication (Pravastatin Sodium ) 40 mg DAILY PO 07/07/21 09:00 UNV Phenyleph/Shark Oil/Min Oil/Petrol (Preparation H) 1 inna PRN QID PRN RC RECTAL PAIN 07/06/21 15:15 Phenytoin Sodium (Dilantin) 400 mg HS PO 07/08/21 21:00 07/11/21 23:36 DC 07/11/21 20:35 Albuterol/ Ipratropium (Combivent Respimat 20-100 Mcg) 1 puff QID INH 07/08/21 13:00 07/20/21 20:16 Docusate Sodium (Colace) 100 mg DAILY PO 07/09/21 09:00 07/20/21 08:30 Guaifenesin (Mucinex Er) 600 mg BID PO 07/08/21 21:00 07/20/21 20:17 Magnesium Hydroxide (Milk Of Magnesia) 2,400 mg PRN QHS PRN PO 2nd CHOICE CONSTIPATION 07/08/21 19:30 Cancel Phenytoin Sodium (Dilantin) 200 mg HS PO 07/12/21 21:00 07/20/21 20:17 Phenytoin Sodium (Dilantin) 100 mg DAILY PO 07/12/21 09:00 07/20/21 08:30 I have reviewed the current psychotropics carefully including drug interactions. Risk benefit ratio favors no change other than as noted in my dictated progress note. Diagnosis: Problems: (1) Impulse control disorder, unspecified (2) Anxiety disorder, unspecified (3) Dementia, vascular, with depression (4) Dementia, vascular, with delusions (5) Major neurocognitive disorder (6) Dementia in Alzheimer's disease with depression (7) Dementia in Alzheimer's disease with delusions (8) Dementia of the Alzheimer's type with early onset with behavioral disturbance NIK LOYA MD Jul 21, 2021 06:54
[2021-07-21] MEDS: TAMSULOSIN 0.4 MG CAP.ER.24H. PO SCH (08:18)
[2021-07-21] MEDS: PHENYTOIN SODIUM EXTENDED 100 MG CAPSULE PO SCH ×2 (08:18→20:14)
[2021-07-21] MEDS: ASPIRIN ENTERIC COATED 81 MG TABLET.DR. PO SCH (08:18)
[2021-07-21] MEDS: GABAPENTIN 300 MG CAPSULE. PO SCH ×2 (08:19→20:15)
[2021-07-21] MEDS: CARVEDILOL 3.125 MG TABLET PO SCH ×2 (08:19→17:03)
[2021-07-21] MEDS: IPRATROPIUM/ALBUTEROL 20/100mcg/INH INHALER. INH SCH ×4 (08:19→20:15)
[2021-07-21] MEDS: DOCUSATE SODIUM 100 MG CAPSULE PO SCH (08:19)
[2021-07-21] MEDS: metFORMIN XR 500 MG TAB.ER.24H PO SCH (08:19)
--- NOTE | 2021-07-21 12:03 | NUR ---
Treatment team note: Pt is eating 75% of meals and sleeping on average 5.5 hours per night. Pt can be irritable and demanding; often acting helpless like he cannot do anything on his own. However, pt is compliant with medications whole and has attended 4 groups this week (generally those involving music). Pt does get agitated as staff require pt to stay out of his bed; staff is stripping the sheets off his bed and not putting sheets on until after lunch. Pt has tentatively been accepted at [facility]. ARI to contact pt family to make arrangements; NOEMIOS for later this week.
--- NOTE | 2021-07-21 12:54 | NUR ---
WEEKLY ACTIVITY THERAPY NOTE Date of Admission: 07/06/21 Date of AT Assessment: 07/08 Precipitating behaviors that initiated intake and admission:Patient was reported to believe that his money was being stolen, his dog was being murdered, trying to leave the facility, disoriented, being tearful and crying frequently, and having sexually inappropriate conversations with other residents Goal aimed:increase socialization and engagement Initial Goal: Pt will participate in at least three individual or group Activity Therapy sessions per week. Weekly progress towards goal: achieved, /3 Group participation level: 1 min, 3 full Weekly highlights: sang and danced Wednesday during music and patio group, yodelled and sang Wednesday during music social Behaviors observed: pleasant and calm, tearful when reminiscing/ listening to music Plan: change goal to: Pt will participate in at least five individual or group Activity Therapy sessions per week. Beneficial adaptations: music and socialization
[2021-07-21 15:25] VITALS: BP 138/78
[2021-07-21] MEDS: DULoxetine HCL 20 MG CAPSULE.DR PO SCH (20:14)
[2021-07-21] MEDS: DULoxetine HCL 30 MG CAPSULE.DR PO SCH (20:15)
[2021-07-21] MEDS: ATORVASTATIN CALCIUM 10 MG TABLET. PO SCH (20:15)
[2021-07-21] MEDS: traZODone 50 MG TABLET. PO PRN (20:15)
[2021-07-21] MEDS: MIRTAZAPINE 7.5 MG TABLET. PO SCH (20:15)
--- NOTE | 2021-07-21 22:59 | PDOC ---
Exam Note: Leo Note: Please also refer to the separate dictated note~for this date of service dictated separately.~Patient seen individually. Discussed the patient with Nursing staff reviewed the chart.~Reviewed interim history and current functioning. Reviewed vital signs,~Labs/ Radiology~and current medications noted below. Continue current treatment with the changes noted in the dictated addendum note Assessment: Vital Signs/I&O: Vital Signs Date Time Temp Pulse Resp B/P (MAP) Pulse Ox O2 Delivery O2 Flow Rate FiO2 07/21/21 17:03 87 138/78 07/21/21 15:25 98.0 18 94 07/17/21 23:50 Room Air I & O 07/20/21 07/20/21 07/21/21 14:59 22:59 06:59 Intake Total 840 ml 480 ml 120 ml Balance 840 ml 480 ml 120 ml Labs: Laboratory Tests Test 07/21/21 07:03 Glucose (Fingerstick) 141 mg/dL (70-99) H Current Medications: Meds: Laboratory Tests Test 07/21/21 07:03 Glucose (Fingerstick) 141 mg/dL Current Medications Medications (Trade) Dose Ordered Sig/Aparna Route PRN Reason Start Time Stop Time Status Last Admin Dose Admin Acetaminophen (Tylenol) 650 mg PRN Q6HRS PRN PO MILD PAIN / TEMP > 100.3'F 07/06/21 00:30 Cancel Multi-Ingredient Ointment (Analgesic [place]) 1 inna PRN QID PRN TP MUSCLE PAIN 07/06/21 00:30 Al Hydroxide/Mg Hydroxide (Mylanta Plus Xs) 15 ml PRN AFTMEALHC PRN PO DYSPEPSIA 07/06/21 00:30 Magnesium Hydroxide (Milk Of Magnesia) 2,400 mg PRN QHS PRN PO 2ND CHOICE CONSTIPATION 07/06/21 00:30 07/14/21 08:13 Duloxetine HCl (Cymbalta) 20 mg HS PO 07/06/21 21:00 07/21/21 20:14 Duloxetine HCl (Cymbalta) 30 mg HS PO 07/06/21 21:00 07/21/21 20:15 Mirtazapine (Remeron) 7.5 mg HS PO 07/06/21 21:00 07/21/21 20:15 Olanzapine (ZyPREXA ZYDIS) 2.5 mg PRN Q2HR PRN PO ANXIETY / AGITATION 07/06/21 01:15 07/17/21 23:39 Trazodone HCl (Desyrel) 50 mg PRN QHS PRN PO INSOMNIA 07/06/21 01:15 07/21/21 20:15 Acetaminophen (Tylenol) 650 mg PRN Q4HRS PRN PO PAIN 07/06/21 10:30 Aspirin (Aspirin Enteric Coated) 81 mg DAILY PO 07/07/21 09:00 07/21/21 08:18 Atorvastatin Calcium (Lipitor) 10 mg QHS PO 07/06/21 21:00 07/21/21 20:15 Carvedilol (Coreg) 3.125 mg BIDWMEALS PO 07/06/21 17:00 07/21/21 17:03 Gabapentin (Neurontin) 300 mg BID PO 07/06/21 21:00 07/21/21 20:15 Metformin HCl (Glucophage Xr) 500 mg DAILYWBKFT PO 07/07/21 08:00 07/21/21 08:19 Multi-Ingredient Ointment (Analgesic [place]) 1 inna PRN QID PRN TP PAIN 07/06/21 10:30 UNV Phenytoin Sodium (Dilantin) 500 mg HS PO 07/06/21 21:00 07/07/21 22:27 DC 07/07/21 20:05 Tamsulosin HCl (Flomax) 0.4 mg DAILY PO 07/07/21 09:00 07/21/21 08:18 Polyethylene Glycol (miraLAX) 17 gm PRN DAILY PRN PO 1ST CHOICE CONSTIPATION 07/06/21 10:45 Non-Formulary Medication (Pravastatin Sodium ) 40 mg DAILY PO 07/07/21 09:00 UNV Phenyleph/Shark Oil/Min Oil/Petrol (Preparation H) 1 inna PRN QID PRN RC RECTAL PAIN 07/06/21 15:15 Phenytoin Sodium (Dilantin) 400 mg HS PO 07/08/21 21:00 07/11/21 23:36 DC 07/11/21 20:35 Albuterol/ Ipratropium (Combivent Respimat 20-100 Mcg) 1 puff QID INH 07/08/21 13:00 07/21/21 20:15 Docusate Sodium (Colace) 100 mg DAILY PO 07/09/21 09:00 07/21/21 08:19 Guaifenesin (Mucinex Er) 600 mg BID PO 07/08/21 21:00 07/21/21 20:15 Magnesium Hydroxide (Milk Of Magnesia) 2,400 mg PRN QHS PRN PO 2nd CHOICE CONSTIPATION 07/08/21 19:30 Cancel Phenytoin Sodium (Dilantin) 200 mg HS PO 07/12/21 21:00 07/21/21 20:14 Phenytoin Sodium (Dilantin) 100 mg DAILY PO 07/12/21 09:00 07/21/21 08:18 I have reviewed the current psychotropics carefully including drug interactions. Risk benefit ratio favors no change other than as noted in my dictated progress note. Diagnosis: Problems: (1) Major depressive disorder (2) Impulse control disorder, unspecified (3) Anxiety disorder, unspecified (4) Dementia, vascular, with depression (5) Dementia, vascular, with delusions (6) Major neurocognitive disorder (7) Dementia in Alzheimer's disease with depression (8) Dementia in Alzheimer's disease with delusions (9) Dementia of the Alzheimer's type with early onset with behavioral disturbance NIK LOYA MD Jul 21, 2021 22:59
--- NOTE | 2021-07-21 22:59 | NUR ---
Pt withdrawn to room, lying in bed when approached. Pt calm, pleasant, interactive, and social with staff and peer. Pt and peer visiting in pt's room for more than an hour this evening. Pt cooperative with assessment and compliant with medications administered whole. No agitation or aggression noted thus far this shift.
--- NOTE | 2021-07-21 23:02 | NUR ---
Pt sitting in peer's room when approached. Pt calm, confused, disorganized, interactive, and social with staff and peer. Pt sat in peer's room visiting for more than an hour this evening. Pt has also been delusional- "looking for two little girls". Pt cooperative with assessment and compliant with medications administered crushed in pudding. No agitation or aggression noted thus far this shift. Addendum: 07/21/21 at 2305 by MONTY SUAREZ RN Above note charted on wrong patient.
[2021-07-22 06:34] VITALS: BP 147/79
[2021-07-22] MEDS: IPRATROPIUM/ALBUTEROL 20/100mcg/INH INHALER. INH SCH ×4 (07:56→19:56)
[2021-07-22] MEDS: DOCUSATE SODIUM 100 MG CAPSULE PO SCH (07:57)
[2021-07-22] MEDS: ASPIRIN ENTERIC COATED 81 MG TABLET.DR. PO SCH (07:57)
[2021-07-22] MEDS: GABAPENTIN 300 MG CAPSULE. PO SCH ×2 (07:57→19:55)
[2021-07-22] MEDS: CARVEDILOL 3.125 MG TABLET PO SCH ×2 (07:57→17:03)
[2021-07-22] MEDS: metFORMIN XR 500 MG TAB.ER.24H PO SCH (07:57)
[2021-07-22] MEDS: TAMSULOSIN 0.4 MG CAP.ER.24H. PO SCH (07:57)
[2021-07-22] MEDS: PHENYTOIN SODIUM EXTENDED 100 MG CAPSULE PO SCH ×2 (07:59→19:55)
--- NOTE | 2021-07-22 09:02 | PDOC ---
Exam Note: Leo Note: This note is a late entry for 07/21/2021 covers elements not covered in my initial note. Subjective: The patient was reviewed at treatment team meeting individually in the morning on 07/21/2021 with Jennifer Vizcarra, Rivka Pearson (social human services assistants), Jennifer, activity therapy and Aleah KOWALSKI, discussed and reviewed the chart. The patient slept 6-1/4 hours previous night. I met with him individually in the evening. We discussed his diagnoses, progress. Appetite is 75%. Sleeping 6-7 hours. He has attended 4 groups in the past one week and yodels and sings quite appropriately. Also discussed with Shakira KOWALSKI in the evening. He is somewhat irritable at times, talking about wanting to be discharged. Review of Systems: Ambulation impaired, in wheelchair. No CV, , pulmonary, eye, ENT system symptoms on review. Mental Status Exam: The patient is oriented to himself. Insight and judgment, recent and remote memory, attention and concentration, fund of knowledge is poor consistent with his diagnoses. Laboratory Data: Reviewed. Impression: Major neurocognitive disorder, Alzheimer, vascular with delusion, depression, behavioral disturbance. Anxiety disorder unspecified. Impulse con trol disorder unspecified. Plan: Continue psychotropics from initial note. Assessment: Vital Signs/I&O: Vital Signs Date Time Temp Pulse Resp B/P (MAP) Pulse Ox O2 Delivery O2 Flow Rate FiO2 07/22/21 07:57 89 147/79 07/22/21 06:34 98.4 20 93 07/17/21 23:50 Room Air I & O 07/21/21 07/21/21 07/22/21 15:00 23:00 07:00 Intake Total 960 ml 480 ml Balance 960 ml 480 ml Labs: Laboratory Tests Test 07/22/21 07:55 Glucose (Fingerstick) 137 mg/dL (70-99) H Current Medications: Meds: Laboratory Tests Test 07/22/21 07:55 Glucose (Fingerstick) 137 mg/dL Current Medications Medications (Trade) Dose Ordered Sig/Aparna Route PRN Reason Start Time Stop Time Status Last Admin Dose Admin Acetaminophen (Tylenol) 650 mg PRN Q6HRS PRN PO MILD PAIN / TEMP > 100.3'F 07/06/21 00:30 Cancel Multi-Ingredient Ointment (Analgesic [place]) 1 inna PRN QID PRN TP MUSCLE PAIN 07/06/21 00:30 Al Hydroxide/Mg Hydroxide (Mylanta Plus Xs) 15 ml PRN AFTMEALHC PRN PO DYSPEPSIA 07/06/21 00:30 Magnesium Hydroxide (Milk Of Magnesia) 2,400 mg PRN QHS PRN PO 2ND CHOICE CONSTIPATION 07/06/21 00:30 07/14/21 08:13 Duloxetine HCl (Cymbalta) 20 mg HS PO 07/06/21 21:00 07/21/21 20:14 Duloxetine HCl (Cymbalta) 30 mg HS PO 07/06/21 21:00 07/21/21 20:15 Mirtazapine (Remeron) 7.5 mg HS PO 07/06/21 21:00 07/21/21 20:15 Olanzapine (ZyPREXA ZYDIS) 2.5 mg PRN Q2HR PRN PO ANXIETY / AGITATION 07/06/21 01:15 07/17/21 23:39 Trazodone HCl (Desyrel) 50 mg PRN QHS PRN PO INSOMNIA 07/06/21 01:15 07/21/21 20:15 Acetaminophen (Tylenol) 650 mg PRN Q4HRS PRN PO PAIN 07/06/21 10:30 Aspirin (Aspirin Enteric Coated) 81 mg DAILY PO 07/07/21 09:00 07/22/21 07:57 Atorvastatin Calcium (Lipitor) 10 mg QHS PO 07/06/21 21:00 07/21/21 20:15 Carvedilol (Coreg) 3.125 mg BIDWMEALS PO 07/06/21 17:00 07/22/21 07:57 Gabapentin (Neurontin) 300 mg BID PO 07/06/21 21:00 07/22/21 07:57 Metformin HCl (Glucophage Xr) 500 mg DAILYWBKFT PO 07/07/21 08:00 07/22/21 07:57 Multi-Ingredient Ointment (Analgesic [place]) 1 inna PRN QID PRN TP PAIN 07/06/21 10:30 UNV Phenytoin Sodium (Dilantin) 500 mg HS PO 07/06/21 21:00 07/07/21 22:27 DC 07/07/21 20:05 Tamsulosin HCl (Flomax) 0.4 mg DAILY PO 07/07/21 09:00 07/22/21 07:57 Polyethylene Glycol (miraLAX) 17 gm PRN DAILY PRN PO 1ST CHOICE CONSTIPATION 07/06/21 10:45 Non-Formulary Medication (Pravastatin Sodium ) 40 mg DAILY PO 07/07/21 09:00 UNV Phenyleph/Shark Oil/Min Oil/Petrol (Preparation H) 1 inna PRN QID PRN RC RECTAL PAIN 07/06/21 15:15 Phenytoin Sodium (Dilantin) 400 mg HS PO 07/08/21 21:00 07/11/21 23:36 DC 07/11/21 20:35 Albuterol/ Ipratropium (Combivent Respimat 20-100 Mcg) 1 puff QID INH 07/08/21 13:00 07/22/21 07:56 Docusate Sodium (Colace) 100 mg DAILY PO 07/09/21 09:00 07/22/21 07:57 Guaifenesin (Mucinex Er) 600 mg BID PO 07/08/21 21:00 07/22/21 07:57 Magnesium Hydroxide (Milk Of Magnesia) 2,400 mg PRN QHS PRN PO 2nd CHOICE CONSTIPATION 07/08/21 19:30 Cancel Phenytoin Sodium (Dilantin) 200 mg HS PO 07/12/21 21:00 07/21/21 20:14 Phenytoin Sodium (Dilantin) 100 mg DAILY PO 07/12/21 09:00 07/22/21 07:59 I have reviewed the current psychotropics carefully including drug interactions. Risk benefit ratio favors no change other than as noted in my dictated progress note. 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
[2021-07-22 15:48] VITALS: BP 148/85
--- NOTE | 2021-07-22 17:10 | NUR ---
Charley Note; Nasir has been calm and cooperative today. he has spent alot of time out of his room in the hallway or dayroom, conversing with staff and other patients. he enjoyed music therapy and sang along to many of the songs. 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
[2021-07-22] MEDS: DULoxetine HCL 30 MG CAPSULE.DR PO SCH (19:55)
[2021-07-22] MEDS: ATORVASTATIN CALCIUM 10 MG TABLET. PO SCH (19:55)
[2021-07-22] MEDS: MIRTAZAPINE 7.5 MG TABLET. PO SCH (19:55)
[2021-07-22] MEDS: DULoxetine HCL 20 MG CAPSULE.DR PO SCH (19:55)
[2021-07-22] MEDS: traZODone 50 MG TABLET. PO PRN (19:56)
--- NOTE | 2021-07-22 22:45 | PDOC ---
Exam Note: Leo Note: Please also refer to the separate dictated note~for this date of service dictated separately.~Patient seen individually. Discussed the patient with Nursing staff reviewed the chart.~Reviewed interim history and current functioning. Reviewed vital signs,~Labs/ Radiology~and current medications noted below. Continue current treatment with the changes noted in the dictated addendum note Assessment: Vital Signs/I&O: Vital Signs Date Time Temp Pulse Resp B/P (MAP) Pulse Ox O2 Delivery O2 Flow Rate FiO2 07/22/21 17:03 78 148/85 07/22/21 15:48 98.0 20 94 Room Air I & O 07/21/21 07/21/21 07/22/21 14:00 22:00 06:00 Intake Total 960 ml 480 ml Balance 960 ml 480 ml Labs: Laboratory Tests Test 07/22/21 07:55 Glucose (Fingerstick) 137 mg/dL (70-99) H Current Medications: Meds: Laboratory Tests Test 07/22/21 07:55 Glucose (Fingerstick) 137 mg/dL Current Medications Medications (Trade) Dose Ordered Sig/Aparna Route PRN Reason Start Time Stop Time Status Last Admin Dose Admin Acetaminophen (Tylenol) 650 mg PRN Q6HRS PRN PO MILD PAIN / TEMP > 100.3'F 07/06/21 00:30 Cancel Multi-Ingredient Ointment (Analgesic [place]) 1 inna PRN QID PRN TP MUSCLE PAIN 07/06/21 00:30 Al Hydroxide/Mg Hydroxide (Mylanta Plus Xs) 15 ml PRN AFTMEALHC PRN PO DYSPEPSIA 07/06/21 00:30 Magnesium Hydroxide (Milk Of Magnesia) 2,400 mg PRN QHS PRN PO 2ND CHOICE CONSTIPATION 07/06/21 00:30 07/14/21 08:13 Duloxetine HCl (Cymbalta) 20 mg HS PO 07/06/21 21:00 07/22/21 19:55 Duloxetine HCl (Cymbalta) 30 mg HS PO 07/06/21 21:00 07/22/21 19:55 Mirtazapine (Remeron) 7.5 mg HS PO 07/06/21 21:00 07/22/21 19:55 Olanzapine (ZyPREXA ZYDIS) 2.5 mg PRN Q2HR PRN PO ANXIETY / AGITATION 07/06/21 01:15 07/17/21 23:39 Trazodone HCl (Desyrel) 50 mg PRN QHS PRN PO INSOMNIA 07/06/21 01:15 07/22/21 19:56 Acetaminophen (Tylenol) 650 mg PRN Q4HRS PRN PO PAIN 07/06/21 10:30 Aspirin (Aspirin Enteric Coated) 81 mg DAILY PO 07/07/21 09:00 07/22/21 07:57 Atorvastatin Calcium (Lipitor) 10 mg QHS PO 07/06/21 21:00 07/22/21 19:55 Carvedilol (Coreg) 3.125 mg BIDWMEALS PO 07/06/21 17:00 07/22/21 17:03 Gabapentin (Neurontin) 300 mg BID PO 07/06/21 21:00 07/22/21 19:55 Metformin HCl (Glucophage Xr) 500 mg DAILYWBKFT PO 07/07/21 08:00 07/22/21 07:57 Multi-Ingredient Ointment (Analgesic [place]) 1 inna PRN QID PRN TP PAIN 07/06/21 10:30 UNV Phenytoin Sodium (Dilantin) 500 mg HS PO 07/06/21 21:00 07/07/21 22:27 DC 07/07/21 20:05 Tamsulosin HCl (Flomax) 0.4 mg DAILY PO 07/07/21 09:00 07/22/21 07:57 Polyethylene Glycol (miraLAX) 17 gm PRN DAILY PRN PO 1ST CHOICE CONSTIPATION 07/06/21 10:45 Non-Formulary Medication (Pravastatin Sodium ) 40 mg DAILY PO 07/07/21 09:00 UNV Phenyleph/Shark Oil/Min Oil/Petrol (Preparation H) 1 inna PRN QID PRN RC RECTAL PAIN 07/06/21 15:15 Phenytoin Sodium (Dilantin) 400 mg HS PO 07/08/21 21:00 07/11/21 23:36 DC 07/11/21 20:35 Albuterol/ Ipratropium (Combivent Respimat 20-100 Mcg) 1 puff QID INH 07/08/21 13:00 07/22/21 19:56 Docusate Sodium (Colace) 100 mg DAILY PO 07/09/21 09:00 07/22/21 07:57 Guaifenesin (Mucinex Er) 600 mg BID PO 07/08/21 21:00 07/22/21 19:56 Magnesium Hydroxide (Milk Of Magnesia) 2,400 mg PRN QHS PRN PO 2nd CHOICE CONSTIPATION 07/08/21 19:30 Cancel Phenytoin Sodium (Dilantin) 200 mg HS PO 07/12/21 21:00 07/22/21 19:55 Phenytoin Sodium (Dilantin) 100 mg DAILY PO 07/12/21 09:00 07/22/21 07:59 I have reviewed the current psychotropics carefully including drug interactions. Risk benefit ratio favors no change other than as noted in my dictated progress note. Diagnosis: Problems: (1) Impulse control disorder, unspecified (2) Anxiety disorder, unspecified (3) Dementia, vascular, with depression (4) Dementia, vascular, with delusions (5) Major neurocognitive disorder (6) Dementia in Alzheimer's disease with depression (7) Dementia in Alzheimer's disease with delusions (8) Dementia of the Alzheimer's type with early onset with behavioral disturbance NIK LOYA MD Jul 22, 2021 22:45
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
[2021-07-23 06:35] VITALS: BP 188/98
[2021-07-23] MEDS: IPRATROPIUM/ALBUTEROL 20/100mcg/INH INHALER. INH SCH ×4 (08:49→21:30)
[2021-07-23] MEDS: CARVEDILOL 3.125 MG TABLET PO SCH ×2 (08:51→17:24)
[2021-07-23] MEDS: ASPIRIN ENTERIC COATED 81 MG TABLET.DR. PO SCH (08:51)
[2021-07-23] MEDS: PHENYTOIN SODIUM EXTENDED 100 MG CAPSULE PO SCH ×2 (08:51→21:30)
[2021-07-23] MEDS: TAMSULOSIN 0.4 MG CAP.ER.24H. PO SCH (08:51)
[2021-07-23] MEDS: metFORMIN XR 500 MG TAB.ER.24H PO SCH (08:51)
[2021-07-23] MEDS: DOCUSATE SODIUM 100 MG CAPSULE PO SCH (08:51)
[2021-07-23] MEDS: GABAPENTIN 300 MG CAPSULE. PO SCH ×2 (08:51→21:30)
--- NOTE | 2021-07-23 14:07 | NUR ---
Nursing note: Pt in dining room at time of AM med pass and assessment. He is med compliant and cooperative. At times, pt is demanding of being given "ensure" with his meals and becomes tearful when encouraged to eat his meal. Pt denies having any pain. He is currently resting quietly in his bed. Will continue to monitor.
[2021-07-23 19:00] VITALS: BP 138/65
[2021-07-23] MEDS: DULoxetine HCL 20 MG CAPSULE.DR PO SCH (21:29)
[2021-07-23] MEDS: DULoxetine HCL 30 MG CAPSULE.DR PO SCH (21:29)
[2021-07-23] MEDS: MIRTAZAPINE 7.5 MG TABLET. PO SCH (21:30)
[2021-07-23] MEDS: ATORVASTATIN CALCIUM 10 MG TABLET. PO SCH (21:30)
--- NOTE | 2021-07-23 21:55 | PDOC ---
Exam Note: Leo Note: Please also refer to the separate dictated note~for this date of service dictated separately.~Patient seen individually. Discussed the patient with Nursing staff reviewed the chart.~Reviewed interim history and current functioning. Reviewed vital signs,~Labs/ Radiology~and current medications noted below. Continue current treatment with the changes noted in the dictated addendum note Assessment: Vital Signs/I&O: Vital Signs Date Time Temp Pulse Resp B/P (MAP) Pulse Ox O2 Delivery O2 Flow Rate FiO2 07/23/21 17:24 96 188/98 07/23/21 06:35 98.3 24 91 07/22/21 15:48 Room Air I & O 07/22/21 07/22/21 07/23/21 14:00 22:00 06:00 Intake Total 400 ml 350 ml 120 ml Balance 400 ml 350 ml 120 ml Labs: Laboratory Tests Test 07/23/21 07:39 Glucose (Fingerstick) 131 mg/dL (70-99) H Current Medications: Meds: Laboratory Tests Test 07/23/21 07:39 Glucose (Fingerstick) 131 mg/dL Current Medications Medications (Trade) Dose Ordered Sig/[place]aprna Route PRN Reason Start Time Stop Time Status Last Admin Dose Admin Acetaminophen (Tylenol) 650 mg PRN Q6HRS PRN PO MILD PAIN / TEMP > 100.3'F 07/06/21 00:30 Cancel Multi-Ingredient Ointment (Analgesic [place]) 1 inna PRN QID PRN TP MUSCLE PAIN 07/06/21 00:30 Al Hydroxide/Mg Hydroxide (Mylanta Plus Xs) 15 ml PRN AFTMEALHC PRN PO DYSPEPSIA 07/06/21 00:30 Magnesium Hydroxide (Milk Of Magnesia) 2,400 mg PRN QHS PRN PO 2ND CHOICE CONSTIPATION 07/06/21 00:30 07/14/21 08:13 Duloxetine HCl (Cymbalta) 20 mg HS PO 07/06/21 21:00 07/23/21 21:29 Duloxetine HCl (Cymbalta) 30 mg HS PO 07/06/21 21:00 07/23/21 21:29 Mirtazapine (Remeron) 7.5 mg HS PO 07/06/21 21:00 07/23/21 21:30 Olanzapine (ZyPREXA ZYDIS) 2.5 mg PRN Q2HR PRN PO ANXIETY / AGITATION 07/06/21 01:15 07/17/21 23:39 Trazodone HCl (Desyrel) 50 mg PRN QHS PRN PO INSOMNIA 07/06/21 01:15 07/22/21 19:56 Acetaminophen (Tylenol) 650 mg PRN Q4HRS PRN PO PAIN 07/06/21 10:30 Aspirin (Aspirin Enteric Coated) 81 mg DAILY PO 07/07/21 09:00 07/23/21 08:51 Atorvastatin Calcium (Lipitor) 10 mg QHS PO 07/06/21 21:00 07/23/21 21:30 Carvedilol (Coreg) 3.125 mg BIDWMEALS PO 07/06/21 17:00 07/23/21 17:24 Gabapentin (Neurontin) 300 mg BID PO 07/06/21 21:00 07/23/21 21:30 Metformin HCl (Glucophage Xr) 500 mg DAILYWBKFT PO 07/07/21 08:00 07/23/21 08:51 Multi-Ingredient Ointment (Analgesic [place]) 1 inna PRN QID PRN TP PAIN 07/06/21 10:30 UNV Phenytoin Sodium (Dilantin) 500 mg HS PO 07/06/21 21:00 07/07/21 22:27 DC 07/07/21 20:05 Tamsulosin HCl (Flomax) 0.4 mg DAILY PO 07/07/21 09:00 07/23/21 08:51 Polyethylene Glycol (miraLAX) 17 gm PRN DAILY PRN PO 1ST CHOICE CONSTIPATION 07/06/21 10:45 Non-Formulary Medication (Pravastatin Sodium ) 40 mg DAILY PO 07/07/21 09:00 UNV Phenyleph/Shark Oil/Min Oil/Petrol (Preparation H) 1 inna PRN QID PRN RC RECTAL PAIN 07/06/21 15:15 Phenytoin Sodium (Dilantin) 400 mg HS PO 07/08/21 21:00 07/11/21 23:36 DC 07/11/21 20:35 Albuterol/ Ipratropium (Combivent Respimat 20-100 Mcg) 1 puff QID INH 07/08/21 13:00 07/23/21 21:30 Docusate Sodium (Colace) 100 mg DAILY PO 07/09/21 09:00 07/23/21 08:51 Guaifenesin (Mucinex Er) 600 mg BID PO 07/08/21 21:00 07/23/21 21:30 Magnesium Hydroxide (Milk Of Magnesia) 2,400 mg PRN QHS PRN PO 2nd CHOICE CONSTIPATION 07/08/21 19:30 Cancel Phenytoin Sodium (Dilantin) 200 mg HS PO 07/12/21 21:00 07/23/21 21:30 Phenytoin Sodium (Dilantin) 100 mg DAILY PO 07/12/21 09:00 07/23/21 08:51 I have reviewed the current psychotropics carefully including drug interactions. Risk benefit ratio favors no change other than as noted in my dictated progress note. 

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
[2021-07-24 05:17] VITALS: BP 181/89
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
[2021-07-24] MEDS: PHENYTOIN SODIUM EXTENDED 100 MG CAPSULE PO SCH ×2 (08:21→22:31)
[2021-07-24] MEDS: metFORMIN XR 500 MG TAB.ER.24H PO SCH (08:21)
[2021-07-24] MEDS: TAMSULOSIN 0.4 MG CAP.ER.24H. PO SCH (08:21)
[2021-07-24] MEDS: ASPIRIN ENTERIC COATED 81 MG TABLET.DR. PO SCH (08:21)
[2021-07-24] MEDS: CARVEDILOL 3.125 MG TABLET PO SCH ×2 (08:22→17:08)
[2021-07-24] MEDS: GABAPENTIN 300 MG CAPSULE. PO SCH ×2 (08:22→22:32)
[2021-07-24] MEDS: DOCUSATE SODIUM 100 MG CAPSULE PO SCH (08:22)
[2021-07-24] MEDS: IPRATROPIUM/ALBUTEROL 20/100mcg/INH INHALER. INH SCH ×4 (08:23→22:32)
--- NOTE | 2021-07-24 11:16 | NUR ---
Pt has been withdrawn to his room and in his bed sleeping, besides meal times. He is medication compliant. Pt seemed to be more irritable with others at breakfast this morning.
[2021-07-24 16:20] VITALS: BP 144/63
--- NOTE | 2021-07-24 21:59 | PDOC ---
Exam Note: Leo Note: Please also refer to the separate dictated note~for this date of service dictated separately.~Patient seen individually. Discussed the patient with Nursing staff reviewed the chart.~Reviewed interim history and current functioning. Reviewed vital signs,~Labs/ Radiology~and current medications noted below. Continue current treatment with the changes noted in the dictated addendum note Assessment: Vital Signs/I&O: Vital Signs Date Time Temp Pulse Resp B/P (MAP) Pulse Ox O2 Delivery O2 Flow Rate FiO2 07/24/21 17:08 80 144/63 07/24/21 16:20 97.8 16 95 07/24/21 05:17 Room Air I & O 07/23/21 07/23/21 07/24/21 14:00 22:00 06:00 Intake Total 840 ml 360 ml Balance 840 ml 360 ml Labs: Laboratory Tests Test 07/24/21 07:54 Glucose (Fingerstick) 118 mg/dL (70-99) H Current Medications: Meds: Laboratory Tests Test 07/24/21 07:54 Glucose (Fingerstick) 118 mg/dL Current Medications Medications (Trade) Dose Ordered Sig/Aparna Route PRN Reason Start Time Stop Time Status Last Admin Dose Admin Acetaminophen (Tylenol) 650 mg PRN Q6HRS PRN PO MILD PAIN / TEMP > 100.3'F 07/06/21 00:30 Cancel Multi-Ingredient Ointment (Analgesic [place]) 1 inna PRN QID PRN TP MUSCLE PAIN 07/06/21 00:30 Al Hydroxide/Mg Hydroxide (Mylanta Plus Xs) 15 ml PRN AFTMEALHC PRN PO DYSPEPSIA 07/06/21 00:30 Magnesium Hydroxide (Milk Of Magnesia) 2,400 mg PRN QHS PRN PO 2ND CHOICE CONSTIPATION 07/06/21 00:30 07/14/21 08:13 Duloxetine HCl (Cymbalta) 20 mg HS PO 07/06/21 21:00 07/23/21 21:29 Duloxetine HCl (Cymbalta) 30 mg HS PO 07/06/21 21:00 07/23/21 21:29 Mirtazapine (Remeron) 7.5 mg HS PO 07/06/21 21:00 07/23/21 21:30 Olanzapine (ZyPREXA ZYDIS) 2.5 mg PRN Q2HR PRN PO ANXIETY / AGITATION 07/06/21 01:15 07/17/21 23:39 Trazodone HCl (Desyrel) 50 mg PRN QHS PRN PO INSOMNIA 07/06/21 01:15 07/22/21 19:56 Acetaminophen (Tylenol) 650 mg PRN Q4HRS PRN PO PAIN 07/06/21 10:30 Aspirin (Aspirin Enteric Coated) 81 mg DAILY PO 07/07/21 09:00 07/24/21 08:21 Atorvastatin Calcium (Lipitor) 10 mg QHS PO 07/06/21 21:00 07/23/21 21:30 Carvedilol (Coreg) 3.125 mg BIDWMEALS PO 07/06/21 17:00 07/24/21 17:08 Gabapentin (Neurontin) 300 mg BID PO 07/06/21 21:00 07/24/21 08:22 Metformin HCl (Glucophage Xr) 500 mg DAILYWBKFT PO 07/07/21 08:00 07/24/21 08:21 Multi-Ingredient Ointment (Analgesic [place]) 1 inna PRN QID PRN TP PAIN 07/06/21 10:30 UNV Phenytoin Sodium (Dilantin) 500 mg HS PO 07/06/21 21:00 07/07/21 22:27 DC 07/07/21 20:05 Tamsulosin HCl (Flomax) 0.4 mg DAILY PO 07/07/21 09:00 07/24/21 08:21 Polyethylene Glycol (miraLAX) 17 gm PRN DAILY PRN PO 1ST CHOICE CONSTIPATION 07/06/21 10:45 Non-Formulary Medication (Pravastatin Sodium ) 40 mg DAILY PO 07/07/21 09:00 UNV Phenyleph/Shark Oil/Min Oil/Petrol (Preparation H) 1 inna PRN QID PRN RC RECTAL PAIN 07/06/21 15:15 Phenytoin Sodium (Dilantin) 400 mg HS PO 07/08/21 21:00 07/11/21 23:36 DC 07/11/21 20:35 Albuterol/ Ipratropium (Combivent Respimat 20-100 Mcg) 1 puff QID INH 07/08/21 13:00 07/24/21 17:08 Docusate Sodium (Colace) 100 mg DAILY PO 07/09/21 09:00 07/24/21 08:22 Guaifenesin (Mucinex Er) 600 mg BID PO 07/08/21 21:00 07/24/21 08:22 Magnesium Hydroxide (Milk Of Magnesia) 2,400 mg PRN QHS PRN PO 2nd CHOICE CONSTIPATION 07/08/21 19:30 Cancel Phenytoin Sodium (Dilantin) 200 mg HS PO 07/12/21 21:00 07/23/21 21:30 Phenytoin Sodium (Dilantin) 100 mg DAILY PO 07/12/21 09:00 07/24/21 08:21 I have reviewed the current psychotropics carefully including drug interactions. Risk benefit ratio favors no change other than as noted in my dictated progress note. 

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
[2021-07-24] MEDS: MIRTAZAPINE 7.5 MG TABLET. PO SCH (22:31)
[2021-07-24] MEDS: ATORVASTATIN CALCIUM 10 MG TABLET. PO SCH (22:31)
[2021-07-24] MEDS: DULoxetine HCL 20 MG CAPSULE.DR PO SCH (22:31)
[2021-07-24] MEDS: DULoxetine HCL 30 MG CAPSULE.DR PO SCH (22:32)
[2021-07-24 22:51] VITALS: BP 168/88
--- NOTE | 2021-07-25 00:21 | NUR ---
Patient was in his room making himself cough/vomit for extended periods of time to spit up phlegm. He came out of room and told this nurse that he "cannot breathe and is dying". Vital signs obtained, WNL. Patient has expiratory wheezes in all zepeda which increase after he makes himself cough. Patient compliant with medications taken whole. Patient remains delusional about money, stating that he talked to the doctor about his money. Patient has been observed talking to peers in the hallway at times, he has been appropriate with others.
[2021-07-25 06:04] VITALS: BP 174/91
[2021-07-25] MEDS: PHENYTOIN SODIUM EXTENDED 100 MG CAPSULE PO SCH ×2 (08:09→20:35)
[2021-07-25] MEDS: metFORMIN XR 500 MG TAB.ER.24H PO SCH (08:09)
[2021-07-25] MEDS: IPRATROPIUM/ALBUTEROL 20/100mcg/INH INHALER. INH SCH ×4 (08:09→20:34)
[2021-07-25] MEDS: GABAPENTIN 300 MG CAPSULE. PO SCH ×2 (08:09→20:34)
[2021-07-25] MEDS: CARVEDILOL 3.125 MG TABLET PO SCH ×2 (08:10→17:22)
[2021-07-25] MEDS: DOCUSATE SODIUM 100 MG CAPSULE PO SCH (08:10)
[2021-07-25] MEDS: TAMSULOSIN 0.4 MG CAP.ER.24H. PO SCH (08:10)
[2021-07-25] MEDS: ASPIRIN ENTERIC COATED 81 MG TABLET.DR. PO SCH (08:10)
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
--- NOTE | 2021-07-25 09:14 | PDOC ---
Exam Note: Leo Note: This note is a late entry for 07/24/2021 covers elements not covered in my initial note. Subjective: The patient was seen face to face in the evening of 07/24/2021 with Lana KOWALSKI, discussed and reviewed the chart. The patient slept 4-1/2 hours previous night. He has been accusatory to nursing aid for stealing his money. We have tried to reassure him as any money he had is safe in the locker but he had difficulty accepting. He has put himself on the floor in the morning, trying to make himself cough loudly, somewhat grandiose stating he has a lot of money that he can share with others. Review of Systems: Ambulation impaired, in wheelchair. No CV, , pulmonary, eye, ENT system symptoms on review. Mental Status Exam: The patient is oriented to himself and situation. Speech coherent has some latency. Abstraction fair. Computation impaired. Language function intact. Attention span short. Mood and affect somewhat withdrawn. Laboratory Data: Reviewed. Impression: Major depressive disorder, recurrent. Major neurocognitive disorder, Alzheimer, vascular with delusion, depression, behavioral disturbance. Anxiety disorder unspecified. Impulse control disorder unspecified. Plan: Continue psychotropics from initial note. Assessment: Vital Signs/I&O: Vital Signs Date Time Temp Pulse Resp B/P (MAP) Pulse Ox O2 Delivery O2 Flow Rate FiO2 07/25/21 08:10 98 174/91 07/25/21 06:04 98.2 20 94 Room Air I & O 07/24/21 07/24/21 07/25/21 14:00 22:00 06:00 Intake Total 1440 ml 560 ml Balance 1440 ml 560 ml Labs: Laboratory Tests Test 07/25/21 07:48 07/25/21 07:50 Glucose (Fingerstick) 126 mg/dL (70-99) H 128 mg/dL (70-99) H Current Medications: Meds: Laboratory Tests Test 07/25/21 07:48 07/25/21 07:50 Glucose (Fingerstick) 126 mg/dL 128 mg/dL Current Medications Medications (Trade) Dose Ordered Sig/Aparna Route PRN Reason Start Time Stop Time Status Last Admin Dose Admin Acetaminophen (Tylenol) 650 mg PRN Q6HRS PRN PO MILD PAIN / TEMP > 100.3'F 07/06/21 00:30 Cancel Multi-Ingredient Ointment (Analgesic [place]) 1 inna PRN QID PRN TP MUSCLE PAIN 07/06/21 00:30 Al Hydroxide/Mg Hydroxide (Mylanta Plus Xs) 15 ml PRN AFTMEALHC PRN PO DYSPEPSIA 07/06/21 00:30 Magnesium Hydroxide (Milk Of Magnesia) 2,400 mg PRN QHS PRN PO 2ND CHOICE CONSTIPATION 07/06/21 00:30 07/14/21 08:13 Duloxetine HCl (Cymbalta) 20 mg HS PO 07/06/21 21:00 07/24/21 22:31 Duloxetine HCl (Cymbalta) 30 mg HS PO 07/06/21 21:00 07/24/21 22:32 Mirtazapine (Remeron) 7.5 mg HS PO 07/06/21 21:00 07/24/21 22:31 Olanzapine (ZyPREXA ZYDIS) 2.5 mg PRN Q2HR PRN PO ANXIETY / AGITATION 07/06/21 01:15 07/17/21 23:39 Trazodone HCl (Desyrel) 50 mg PRN QHS PRN PO INSOMNIA 07/06/21 01:15 07/22/21 19:56 Acetaminophen (Tylenol) 650 mg PRN Q4HRS PRN PO PAIN 07/06/21 10:30 Aspirin (Aspirin Enteric Coated) 81 mg DAILY PO 07/07/21 09:00 07/25/21 08:10 Atorvastatin Calcium (Lipitor) 10 mg QHS PO 07/06/21 21:00 07/24/21 22:31 Carvedilol (Coreg) 3.125 mg BIDWMEALS PO 07/06/21 17:00 07/25/21 08:10 Gabapentin (Neurontin) 300 mg BID PO 07/06/21 21:00 07/25/21 08:09 Metformin HCl (Glucophage Xr) 500 mg DAILYWBKFT PO 07/07/21 08:00 07/25/21 08:09 Multi-Ingredient Ointment (Analgesic [place]) 1 inna PRN QID PRN TP PAIN 07/06/21 10:30 UNV Phenytoin Sodium (Dilantin) 500 mg HS PO 07/06/21 21:00 07/07/21 22:27 DC 07/07/21 20:05 Tamsulosin HCl (Flomax) 0.4 mg DAILY PO 07/07/21 09:00 07/25/21 08:10 Polyethylene Glycol (miraLAX) 17 gm PRN DAILY PRN PO 1ST CHOICE CONSTIPATION 07/06/21 10:45 Non-Formulary Medication (Pravastatin Sodium ) 40 mg DAILY PO 07/07/21 09:00 UNV Phenyleph/Shark Oil/Min Oil/Petrol (Preparation H) 1 inna PRN QID PRN RC RECTAL PAIN 07/06/21 15:15 Phenytoin Sodium (Dilantin) 400 mg HS PO 07/08/21 21:00 07/11/21 23:36 DC 07/11/21 20:35 Albuterol/ Ipratropium (Combivent Respimat 20-100 Mcg) 1 puff QID INH 07/08/21 13:00 07/25/21 08:09 Docusate Sodium (Colace) 100 mg DAILY PO 07/09/21 09:00 07/25/21 08:10 Guaifenesin (Mucinex Er) 600 mg BID PO 07/08/21 21:00 07/25/21 08:10 Magnesium Hydroxide (Milk Of Magnesia) 2,400 mg PRN QHS PRN PO 2nd CHOICE CONSTIPATION 07/08/21 19:30 Cancel Phenytoin Sodium (Dilantin) 200 mg HS PO 07/12/21 21:00 07/24/21 22:31 Phenytoin Sodium (Dilantin) 100 mg DAILY PO 07/12/21 09:00 07/25/21 08:09 I have reviewed the current psychotropics carefully including drug interactions. Risk benefit ratio favors no change other than as noted in my dictated progress note. 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
[2021-07-25 15:33] VITALS: BP 166/86
--- NOTE | 2021-07-25 17:35 | NUR ---
Nsg Note; Nasir has been awake, alert and cooperative today. he is med compliant, and has had no complaints or demands today. he has been pleasant and conversive with staff and other patients today. he likes to briefly sing, and missed music therapy today.
[2021-07-25] MEDS ORDERED: CARVEDILOL 3.125 MG TABLET PO SCH (18:00)
[2021-07-25] MEDS: DULoxetine HCL 30 MG CAPSULE.DR PO SCH (20:34)
[2021-07-25] MEDS: MIRTAZAPINE 7.5 MG TABLET. PO SCH (20:35)
[2021-07-25] MEDS: ATORVASTATIN CALCIUM 10 MG TABLET. PO SCH (20:35)
[2021-07-25] MEDS: DULoxetine HCL 20 MG CAPSULE.DR PO SCH (20:35)
[2021-07-25] MEDS: traZODone 50 MG TABLET. PO PRN (20:56)
--- NOTE | 2021-07-25 22:01 | PDOC ---
Exam Note: Leo Note: Please also refer to the separate dictated note~for this date of service dictated separately.~Patient seen individually. Discussed the patient with Nursing staff reviewed the chart.~Reviewed interim history and current functioning. Reviewed vital signs,~Labs/ Radiology~and current medications noted below. Continue current treatment with the changes noted in the dictated addendum note Assessment: Vital Signs/I&O: Vital Signs Date Time Temp Pulse Resp B/P (MAP) Pulse Ox O2 Delivery O2 Flow Rate FiO2 07/25/21 17:22 84 166/86 07/25/21 15:33 98.2 20 97 Room Air I & O 07/24/21 07/24/21 07/25/21 14:00 22:00 06:00 Intake Total 1440 ml 560 ml Balance 1440 ml 560 ml Labs: Laboratory Tests Test 07/25/21 07:48 07/25/21 07:50 Glucose (Fingerstick) 126 mg/dL (70-99) H 128 mg/dL (70-99) H Current Medications: Meds: Laboratory Tests Test 07/25/21 07:48 07/25/21 07:50 Glucose (Fingerstick) 126 mg/dL 128 mg/dL Current Medications Medications (Trade) Dose Ordered Sig/Aparna Route PRN Reason Start Time Stop Time Status Last Admin Dose Admin Acetaminophen (Tylenol) 650 mg PRN Q6HRS PRN PO MILD PAIN / TEMP > 100.3'F 07/06/21 00:30 Cancel Multi-Ingredient Ointment (Analgesic [place]) 1 inna PRN QID PRN TP MUSCLE PAIN 07/06/21 00:30 Al Hydroxide/Mg Hydroxide (Mylanta Plus Xs) 15 ml PRN AFTMEALHC PRN PO DYSPEPSIA 07/06/21 00:30 Magnesium Hydroxide (Milk Of Magnesia) 2,400 mg PRN QHS PRN PO 2ND CHOICE CONSTIPATION 07/06/21 00:30 07/14/21 08:13 Duloxetine HCl (Cymbalta) 20 mg HS PO 07/06/21 21:00 07/25/21 20:35 Duloxetine HCl (Cymbalta) 30 mg HS PO 07/06/21 21:00 07/25/21 20:34 Mirtazapine (Remeron) 7.5 mg HS PO 07/06/21 21:00 07/25/21 20:35 Olanzapine (ZyPREXA ZYDIS) 2.5 mg PRN Q2HR PRN PO ANXIETY / AGITATION 07/06/21 01:15 07/17/21 23:39 Trazodone HCl (Desyrel) 50 mg PRN QHS PRN PO INSOMNIA 07/06/21 01:15 07/25/21 20:56 Acetaminophen (Tylenol) 650 mg PRN Q4HRS PRN PO PAIN 07/06/21 10:30 Aspirin (Aspirin Enteric Coated) 81 mg DAILY PO 07/07/21 09:00 07/25/21 08:10 Atorvastatin Calcium (Lipitor) 10 mg QHS PO 07/06/21 21:00 07/25/21 20:35 Carvedilol (Coreg) 3.125 mg BIDWMEALS PO 07/06/21 17:00 07/25/21 17:52 DC 07/25/21 17:22 Gabapentin (Neurontin) 300 mg BID PO 07/06/21 21:00 07/25/21 20:34 Metformin HCl (Glucophage Xr) 500 mg DAILYWBKFT PO 07/07/21 08:00 07/25/21 08:09 Multi-Ingredient Ointment (Analgesic [place]) 1 inna PRN QID PRN TP PAIN 07/06/21 10:30 UNV Phenytoin Sodium (Dilantin) 500 mg HS PO 07/06/21 21:00 07/07/21 22:27 DC 07/07/21 20:05 Tamsulosin HCl (Flomax) 0.4 mg DAILY PO 07/07/21 09:00 07/25/21 08:10 Polyethylene Glycol (miraLAX) 17 gm PRN DAILY PRN PO 1ST CHOICE CONSTIPATION 07/06/21 10:45 Non-Formulary Medication (Pravastatin Sodium ) 40 mg DAILY PO 07/07/21 09:00 UNV Phenyleph/Shark Oil/Min Oil/Petrol (Preparation H) 1 inna PRN QID PRN RC RECTAL PAIN 07/06/21 15:15 Phenytoin Sodium (Dilantin) 400 mg HS PO 07/08/21 21:00 07/11/21 23:36 DC 07/11/21 20:35 Albuterol/ Ipratropium (Combivent Respimat 20-100 Mcg) 1 puff QID INH 07/08/21 13:00 07/25/21 20:34 Docusate Sodium (Colace) 100 mg DAILY PO 07/09/21 09:00 07/25/21 08:10 Guaifenesin (Mucinex Er) 600 mg BID PO 07/08/21 21:00 07/25/21 20:34 Magnesium Hydroxide (Milk Of Magnesia) 2,400 mg PRN QHS PRN PO 2nd CHOICE CONSTIPATION 07/08/21 19:30 Cancel Phenytoin Sodium (Dilantin) 200 mg HS PO 07/12/21 21:00 07/25/21 20:35 Phenytoin Sodium (Dilantin) 100 mg DAILY PO 07/12/21 09:00 07/25/21 08:09 Carvedilol (Coreg) 6.25 mg BIDWMEALS PO 07/25/21 18:00 07/25/21 18:07 DC Carvedilol (Coreg) 6.25 mg BIDWMEALS PO 07/26/21 08:00 I have reviewed the current psychotropics carefully including drug interactions. Risk benefit ratio favors no change other than as noted in my dictated progress note. 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
--- NOTE | 2021-07-25 23:57 | NUR ---
Patient is in his room on assumption of care, sitting in his wheelchair in the doorway. Compliant with assessments and medications taken whole. No inappropriate comments so far this shift. He requested something to help him sleep, received PRN Trazodone with his HS meds, with good effect. No agitation. Denies pain or discomfort. He appears to be sleeping comfortably at present time. Will continue to monitor.
[2021-07-26 06:04] VITALS: BP 157/77
[2021-07-26] MEDS: IPRATROPIUM/ALBUTEROL 20/100mcg/INH INHALER. INH SCH ×4 (08:18→19:55)
[2021-07-26] MEDS: ASPIRIN ENTERIC COATED 81 MG TABLET.DR. PO SCH (08:18)
[2021-07-26] MEDS: TAMSULOSIN 0.4 MG CAP.ER.24H. PO SCH (08:19)
[2021-07-26] MEDS: PHENYTOIN SODIUM EXTENDED 100 MG CAPSULE PO SCH ×2 (08:19→19:56)
[2021-07-26] MEDS: GABAPENTIN 300 MG CAPSULE. PO SCH ×2 (08:19→19:57)
[2021-07-26] MEDS: DOCUSATE SODIUM 100 MG CAPSULE PO SCH (08:19)
[2021-07-26] MEDS: metFORMIN XR 500 MG TAB.ER.24H PO SCH (08:20)
[2021-07-26] MEDS: CARVEDILOL 6.25 MG TABLET PO SCH ×2 (08:20→17:36)
[2021-07-26 15:39] VITALS: BP 133/68
[2021-07-26] MEDS: ATORVASTATIN CALCIUM 10 MG TABLET. PO SCH (19:56)
[2021-07-26] MEDS: DULoxetine HCL 20 MG CAPSULE.DR PO SCH (19:56)
[2021-07-26] MEDS: DULoxetine HCL 30 MG CAPSULE.DR PO SCH (19:57)
[2021-07-26] MEDS: MIRTAZAPINE 7.5 MG TABLET. PO SCH (19:57)
--- NOTE | 2021-07-26 22:13 | PDOC ---
Exam Note: Leo Note: Please also refer to the separate dictated note~for this date of service dictated separately.~Patient seen individually. Discussed the patient with Nursing staff reviewed the chart.~Reviewed interim history and current functioning. Reviewed vital signs,~Labs/ Radiology~and current medications noted below. Continue current treatment with the changes noted in the dictated addendum note Assessment: Vital Signs/I&O: Vital Signs Date Time Temp Pulse Resp B/P (MAP) Pulse Ox O2 Delivery O2 Flow Rate FiO2 07/26/21 17:36 74 133/68 07/26/21 15:39 97.6 18 97 Room Air I & O 07/25/21 07/25/21 07/26/21 14:00 22:00 06:00 Intake Total 840 ml 360 ml 120 ml Balance 840 ml 360 ml 120 ml Labs: Laboratory Tests Test 07/26/21 07:50 Glucose (Fingerstick) 114 mg/dL (70-99) H Current Medications: Meds: Laboratory Tests Test 07/26/21 07:50 Glucose (Fingerstick) 114 mg/dL Current Medications Medications (Trade) Dose Ordered Sig/Aparna Route PRN Reason Start Time Stop Time Status Last Admin Dose Admin Acetaminophen (Tylenol) 650 mg PRN Q6HRS PRN PO MILD PAIN / TEMP > 100.3'F 07/06/21 00:30 Cancel Multi-Ingredient Ointment (Analgesic [place]) 1 inna PRN QID PRN TP MUSCLE PAIN 07/06/21 00:30 Al Hydroxide/Mg Hydroxide (Mylanta Plus Xs) 15 ml PRN AFTMEALHC PRN PO DYSPEPSIA 07/06/21 00:30 Magnesium Hydroxide (Milk Of Magnesia) 2,400 mg PRN QHS PRN PO 2ND CHOICE CONSTIPATION 07/06/21 00:30 07/14/21 08:13 Duloxetine HCl (Cymbalta) 20 mg HS PO 07/06/21 21:00 07/26/21 19:56 Duloxetine HCl (Cymbalta) 30 mg HS PO 07/06/21 21:00 07/26/21 19:57 Mirtazapine (Remeron) 7.5 mg HS PO 07/06/21 21:00 07/26/21 19:57 Olanzapine (ZyPREXA ZYDIS) 2.5 mg PRN Q2HR PRN PO ANXIETY / AGITATION 07/06/21 01:15 07/17/21 23:39 Trazodone HCl (Desyrel) 50 mg PRN QHS PRN PO INSOMNIA 07/06/21 01:15 07/25/21 20:56 Acetaminophen (Tylenol) 650 mg PRN Q4HRS PRN PO PAIN 07/06/21 10:30 Aspirin (Aspirin Enteric Coated) 81 mg DAILY PO 07/07/21 09:00 07/26/21 08:18 Atorvastatin Calcium (Lipitor) 10 mg QHS PO 07/06/21 21:00 07/26/21 19:56 Carvedilol (Coreg) 3.125 mg BIDWMEALS PO 07/06/21 17:00 07/25/21 17:52 DC 07/25/21 17:22 Gabapentin (Neurontin) 300 mg BID PO 07/06/21 21:00 07/26/21 19:57 Metformin HCl (Glucophage Xr) 500 mg DAILYWBKFT PO 07/07/21 08:00 07/26/21 08:20 Multi-Ingredient Ointment (Analgesic [place]) 1 inna PRN QID PRN TP PAIN 07/06/21 10:30 UNV Phenytoin Sodium (Dilantin) 500 mg HS PO 07/06/21 21:00 07/07/21 22:27 DC 07/07/21 20:05 Tamsulosin HCl (Flomax) 0.4 mg DAILY PO 07/07/21 09:00 07/26/21 08:19 Polyethylene Glycol (miraLAX) 17 gm PRN DAILY PRN PO 1ST CHOICE CONSTIPATION 07/06/21 10:45 Non-Formulary Medication (Pravastatin Sodium ) 40 mg DAILY PO 07/07/21 09:00 UNV Phenyleph/Shark Oil/Min Oil/Petrol (Preparation H) 1 inna PRN QID PRN RC RECTAL PAIN 07/06/21 15:15 Phenytoin Sodium (Dilantin) 400 mg HS PO 07/08/21 21:00 07/11/21 23:36 DC 07/11/21 20:35 Albuterol/ Ipratropium (Combivent Respimat 20-100 Mcg) 1 puff QID INH 07/08/21 13:00 07/26/21 19:55 Docusate Sodium (Colace) 100 mg DAILY PO 07/09/21 09:00 07/26/21 08:19 Guaifenesin (Mucinex Er) 600 mg BID PO 07/08/21 21:00 07/26/21 19:55 Magnesium Hydroxide (Milk Of Magnesia) 2,400 mg PRN QHS PRN PO 2nd CHOICE CONSTIPATION 07/08/21 19:30 Cancel Phenytoin Sodium (Dilantin) 200 mg HS PO 07/12/21 21:00 07/26/21 19:56 Phenytoin Sodium (Dilantin) 100 mg DAILY PO 07/12/21 09:00 07/26/21 08:19 Carvedilol (Coreg) 6.25 mg BIDWMEALS PO 07/25/21 18:00 07/25/21 18:07 DC Carvedilol (Coreg) 6.25 mg BIDWMEALS PO 07/26/21 08:00 07/26/21 17:36 Current Medications Medications (Trade) Dose Ordered Sig/Aparna Route PRN Reason Start Time Stop Time Status Last Admin Dose Admin Carvedilol (Coreg) 6.25 mg BIDWMEALS PO 07/26/21 08:00 07/26/21 17:36 I have reviewed the current psychotropics carefully including drug interactions. Risk benefit ratio favors no change other than as noted in my dictated progress note. Diagnosis: Problems: (1) Impulse control disorder, unspecified (2) Anxiety disorder, unspecified (3) Dementia, vascular, with depression (4) Dementia, vascular, with delusions (5) Major neurocognitive disorder (6) Dementia in Alzheimer's disease with depression (7) Dementia in Alzheimer's disease with delusions (8) Dementia of the Alzheimer's type with early onset with behavioral disturbance NIK LOYA MD Jul 26, 2021 22:13
--- NOTE | 2021-07-26 22:13 | NUR ---
Patient is in his room on assumption of care, sitting in his wheelchair in the doorway. Compliant with assessments and medications taken whole. No inappropriate comments so far this shift. No agitation. Denies pain or discomfort. He appears to be sleeping comfortably at present time. Will continue to monitor.
[2021-07-27 06:08] VITALS: BP 162/79
[2021-07-27] MEDS: GABAPENTIN 300 MG CAPSULE. PO SCH ×2 (10:05→20:30)
[2021-07-27] MEDS: PHENYTOIN SODIUM EXTENDED 100 MG CAPSULE PO SCH ×2 (10:05→20:31)
[2021-07-27] MEDS: CARVEDILOL 6.25 MG TABLET PO SCH ×2 (10:05→17:01)
[2021-07-27] MEDS: ASPIRIN ENTERIC COATED 81 MG TABLET.DR. PO SCH (10:05)
[2021-07-27] MEDS: metFORMIN XR 500 MG TAB.ER.24H PO SCH (10:05)
[2021-07-27] MEDS: IPRATROPIUM/ALBUTEROL 20/100mcg/INH INHALER. INH SCH ×4 (10:05→20:29)
[2021-07-27] MEDS: DOCUSATE SODIUM 100 MG CAPSULE PO SCH (10:05)
[2021-07-27] MEDS: TAMSULOSIN 0.4 MG CAP.ER.24H. PO SCH (10:06)
[2021-07-27 10:35] LABS: BASO # 0.1 x10^3/uL (0.0-0.2); BASO % 1 % (0-3); EOS # 0.8 x10^3/uL (0.0-0.7); EOS % 12 % (0-3); HEMATOCRIT 35.8 % (39.0-53.0); HEMOGLOBIN 12.1 g/dL (13.0-17.5); LYMPH # 2.3 x10^3/uL (1.0-4.8); LYMPH % 32 % (24-48); MEAN CORPUSCULAR HEMOGLOBIN 35 pg (25-35); MEAN CORPUSCULAR HGB CONC 34 g/dL (31-37); MEAN CORPUSCULAR VOLUME 102 fL (79-100); MONO # 0.7 x10^3/uL (0.0-1.1); MONO % 10 % (0-9); NEUT # 3.2 x10^3uL (1.8-7.7); NEUT % 45 % (31-73); PLATELET COUNT 117 x10^3/uL (140-400); RED CELL DISTRIBUTION WIDTH 14.4 % (11.5-14.5)
[2021-07-27 10:40] LABS: ALBUMIN 3.3 g/dL (3.4-5.0); ALBUMIN/GLOBULIN RATIO 0.9 (1.0-1.7); CALCIUM 8.5 mg/dL (8.5-10.1); CREATININE 1.1 mg/dL (0.7-1.3); GFR 64.6; POTASSIUM 4.1 mmol/L (3.5-5.1); TOTAL BILIRUBIN 0.3 mg/dL (0.2-1.0); TOTAL PROTEIN 6.9 g/dL (6.4-8.2)
[2021-07-27 15:53] VITALS: BP 114/69
[2021-07-27] MEDS: MIRTAZAPINE 7.5 MG TABLET. PO SCH (20:30)
[2021-07-27] MEDS: DULoxetine HCL 20 MG CAPSULE.DR PO SCH (20:32)
[2021-07-27] MEDS: DULoxetine HCL 30 MG CAPSULE.DR PO SCH (20:32)
[2021-07-27] MEDS: ATORVASTATIN CALCIUM 10 MG TABLET. PO SCH (20:32)
--- NOTE | 2021-07-27 21:58 | PDOC ---
Exam Note: Leo Note: Please also refer to the separate dictated note~for this date of service dictated separately.~Patient seen individually. Discussed the patient with Nursing staff reviewed the chart.~Reviewed interim history and current functioning. Reviewed vital signs,~Labs/ Radiology~and current medications noted below. Continue current treatment with the changes noted in the dictated addendum note Assessment: Vital Signs/I&O: Vital Signs Date Time Temp Pulse Resp B/P (MAP) Pulse Ox O2 Delivery O2 Flow Rate FiO2 07/27/21 17:01 71 114/69 07/27/21 15:53 97.7 16 94 07/26/21 15:39 Room Air I & O 07/26/21 07/26/21 07/27/21 15:00 23:00 07:00 Intake Total 840 ml 600 ml Balance 840 ml 600 ml Labs: Laboratory Tests Test 07/27/21 07:34 07/27/21 09:50 Glucose (Fingerstick) 115 mg/dL (70-99) H White Blood Count 7.0 x10^3/uL (4.0-11.0) Red Blood Count 3.50 x10^6/uL (4.30-5.70) L Hemoglobin 12.1 g/dL (13.0-17.5) L Hematocrit 35.8 % (39.0-53.0) L Mean Corpuscular Volume 102 fL (79-100) H Mean Corpuscular Hemoglobin 35 pg (25-35) Mean Corpuscular Hemoglobin Concent 34 g/dL (31-37) Red Cell Distribution Width 14.4 % (11.5-14.5) Platelet Count 117 x10^3/uL (140-400) L Neutrophils (%) (Auto) 45 % (31-73) Lymphocytes (%) (Auto) 32 % (24-48) Monocytes (%) (Auto) 10 % (0-9) H Eosinophils (%) (Auto) 12 % (0-3) H Basophils (%) (Auto) 1 % (0-3) Neutrophils # (Auto) 3.2 x10^3uL (1.8-7.7) Lymphocytes # (Auto) 2.3 x10^3/uL (1.0-4.8) Monocytes # (Auto) 0.7 x10^3/uL (0.0-1.1) Eosinophils # (Auto) 0.8 x10^3/uL (0.0-0.7) H Basophils # (Auto) 0.1 x10^3/uL (0.0-0.2) Sodium Level 139 mmol/L (136-145) Potassium Level 4.1 mmol/L (3.5-5.1) Chloride Level 104 mmol/L (98-107) Carbon Dioxide Level 30 mmol/L (21-32) Anion Gap 5 (6-14) L Blood Urea Nitrogen 34 mg/dL (8-26) H Creatinine 1.1 mg/dL (0.7-1.3) Estimated GFR (Cockcroft-Gault) 64.6 BUN/Creatinine Ratio 31 (6-20) H Glucose Level 135 mg/dL (70-99) H Calcium Level 8.5 mg/dL (8.5-10.1) Total Bilirubin 0.3 mg/dL (0.2-1.0) Aspartate Amino Transferase (AST) 18 U/L (15-37) Alanine Aminotransferase (ALT) 24 U/L (16-63) Alkaline Phosphatase 128 U/L (46-116) H Total Protein 6.9 g/dL (6.4-8.2) Albumin 3.3 g/dL (3.4-5.0) L Albumin/Globulin Ratio 0.9 (1.0-1.7) L Current Medications: Meds: Laboratory Tests Test 07/27/21 07:34 07/27/21 09:50 Glucose (Fingerstick) 115 mg/dL White Blood Count 7.0 x10^3/uL Red Blood Count 3.50 x10^6/uL Hemoglobin 12.1 g/dL Hematocrit 35.8 % Mean Corpuscular Volume 102 fL Mean Corpuscular Hemoglobin 35 pg Mean Corpuscular Hemoglobin Concent 34 g/dL Red Cell Distribution Width 14.4 % Platelet Count 117 x10^3/uL Neutrophils (%) (Auto) 45 % Lymphocytes (%) (Auto) 32 % Monocytes (%) (Auto) 10 % Eosinophils (%) (Auto) 12 % Basophils (%) (Auto) 1 % Neutrophils # (Auto) 3.2 x10^3uL Lymphocytes # (Auto) 2.3 x10^3/uL Monocytes # (Auto) 0.7 x10^3/uL Eosinophils # (Auto) 0.8 x10^3/uL Basophils # (Auto) 0.1 x10^3/uL Sodium Level 139 mmol/L Potassium Level 4.1 mmol/L Chloride Level 104 mmol/L Carbon Dioxide Level 30 mmol/L Anion Gap 5 Blood Urea Nitrogen 34 mg/dL Creatinine 1.1 mg/dL Estimated GFR (Cockcroft-Gault) 64.6 BUN/Creatinine Ratio 31 Glucose Level 135 mg/dL Calcium Level 8.5 mg/dL Total Bilirubin 0.3 mg/dL Aspartate Amino Transf (AST/SGOT) 18 U/L Alanine Aminotransferase (ALT/SGPT) 24 U/L Alkaline Phosphatase 128 U/L Total Protein 6.9 g/dL Albumin 3.3 g/dL Albumin/Globulin Ratio 0.9 Current Medications Medications (Trade) Dose Ordered Sig/Aparna Route PRN Reason Start Time Stop Time Status Last Admin Dose Admin Acetaminophen (Tylenol) 650 mg PRN Q6HRS PRN PO MILD PAIN / TEMP > 100.3'F 07/06/21 00:30 Cancel Multi-Ingredient Ointment (Analgesic [place]) 1 inna PRN QID PRN TP MUSCLE PAIN 07/06/21 00:30 Al Hydroxide/Mg Hydroxide (Mylanta Plus Xs) 15 ml PRN AFTMEALHC PRN PO DYSPEPSIA 07/06/21 00:30 Magnesium Hydroxide (Milk Of Magnesia) 2,400 mg PRN QHS PRN PO 2ND CHOICE CONSTIPATION 07/06/21 00:30 07/14/21 08:13 Duloxetine HCl (Cymbalta) 20 mg HS PO 07/06/21 21:00 07/27/21 20:32 Duloxetine HCl (Cymbalta) 30 mg HS PO 07/06/21 21:00 07/27/21 20:32 Mirtazapine (Remeron) 7.5 mg HS PO 07/06/21 21:00 07/27/21 20:30 Olanzapine (ZyPREXA ZYDIS) 2.5 mg PRN Q2HR PRN PO ANXIETY / AGITATION 07/06/21 01:15 07/27/21 21:17 Trazodone HCl (Desyrel) 50 mg PRN QHS PRN PO INSOMNIA 07/06/21 01:15 07/25/21 20:56 Acetaminophen (Tylenol) 650 mg PRN Q4HRS PRN PO PAIN 07/06/21 10:30 Aspirin (Aspirin Enteric Coated) 81 mg DAILY PO 07/07/21 09:00 07/27/21 10:05 Atorvastatin Calcium (Lipitor) 10 mg QHS PO 07/06/21 21:00 07/27/21 20:32 Carvedilol (Coreg) 3.125 mg BIDWMEALS PO 07/06/21 17:00 07/25/21 17:52 DC 07/25/21 17:22 Gabapentin (Neurontin) 300 mg BID PO 07/06/21 21:00 07/27/21 20:30 Metformin HCl (Glucophage Xr) 500 mg DAILYWBKFT PO 07/07/21 08:00 07/27/21 10:05 Multi-Ingredient Ointment (Analgesic [place]) 1 inna PRN QID PRN TP PAIN 07/06/21 10:30 UNV Phenytoin Sodium (Dilantin) 500 mg HS PO 07/06/21 21:00 07/07/21 22:27 DC 07/07/21 20:05 Tamsulosin HCl (Flomax) 0.4 mg DAILY PO 07/07/21 09:00 07/27/21 10:06 Polyethylene Glycol (miraLAX) 17 gm PRN DAILY PRN PO 1ST CHOICE CONSTIPATION 07/06/21 10:45 Non-Formulary Medication (Pravastatin Sodium ) 40 mg DAILY PO 07/07/21 09:00 UNV Phenyleph/Shark Oil/Min Oil/Petrol (Preparation H) 1 inna PRN QID PRN RC RECTAL PAIN 07/06/21 15:15 Phenytoin Sodium (Dilantin) 400 mg HS PO 07/08/21 21:00 07/11/21 23:36 DC 07/11/21 20:35 Albuterol/ Ipratropium (Combivent Respimat 20-100 Mcg) 1 puff QID INH 07/08/21 13:00 07/27/21 20:29 Docusate Sodium (Colace) 100 mg DAILY PO 07/09/21 09:00 07/27/21 10:05 Guaifenesin (Mucinex Er) 600 mg BID PO 07/08/21 21:00 07/27/21 20:30 Magnesium Hydroxide (Milk Of Magnesia) 2,400 mg PRN QHS PRN PO 2nd CHOICE CONSTIPATION 07/08/21 19:30 Cancel Phenytoin Sodium (Dilantin) 200 mg HS PO 07/12/21 21:00 07/27/21 20:31 Phenytoin Sodium (Dilantin) 100 mg DAILY PO 07/12/21 09:00 07/27/21 10:05 Carvedilol (Coreg) 6.25 mg BIDWMEALS PO 07/25/21 18:00 07/25/21 18:07 DC Carvedilol (Coreg) 6.25 mg BIDWMEALS PO 07/26/21 08:00 07/27/21 17:01 I have reviewed the current psychotropics carefully including drug interactions. Risk benefit ratio favors no change other than as noted in my dictated progress note. Diagnosis: Problems: (1) Impulse control disorder, unspecified (2) Anxiety disorder, unspecified (3) Dementia, vascular, with depression (4) Dementia, vascular, with delusions (5) Major neurocognitive disorder (6) Dementia in Alzheimer's disease with depression (7) Dementia in Alzheimer's disease with delusions (8) Dementia of the Alzheimer's type with early onset with behavioral disturb ance (9) Major depressive disorder NIK LOYA MD Jul 27, 2021 21:58
--- NOTE | 2021-07-27 23:11 | NUR ---
Patient is in his room on assumption of care, sitting in his wheelchair in the doorway and talking with a peer. Compliant with assessments and medications taken whole. No inappropriate comments so far this shift. No agitation. Denies pain or discomfort. He appears to be sleeping comfortably at present time. Will continue to monitor.
[2021-07-28 05:46] VITALS: BP 125/69
--- NOTE | 2021-07-28 06:33 | PDOC ---
Exam Note: Leo Note: This note is a late entry for 07/25/2021 covers elements not covered in my initial note. Subjective: The patient was seen face to face in the evening of 07/25/2021 with Rk KOWALSKI, discussed and reviewed the chart. The patient slept 6-1/4 hours previous night. He has been anxious. He is somewhat paranoid, suspicious, believes one of the other demented patients hit him even though he has been friends with him for 30 years. He gets confused about this. It is possible that one of the other demented patients did enter his room. Review of Systems: Ambulation impaired, in wheelchair. No CV, , pulmonary, eye, ENT system symptoms on review. Mental Status Exam: The patient is oriented to himself and situation. I met with him in his room in the evening. He is verbal and interactive. Speech coherent has some latency. Abstraction fair. Computation impaired. Language function intact. Attention span short. Mood and affect somewhat withdrawn. Short-term memory is impaired. No suicidal or homicidal ideation. Laboratory Data: Reviewed. Impression: Major depressive disorder, recurrent. Major neurocognitive disorder, Alzheimer, vascular with delusion, depression, behavioral disturbance. Anxiety disorder unspecified. Impulse control disorder unspecified. Plan: Continue psychotropics from initial note. Assessment: Vital Signs/I&O: Vital Signs Date Time Temp Pulse Resp B/P (MAP) Pulse Ox O2 Delivery O2 Flow Rate FiO2 07/28/21 05:46 97.1 70 16 125/69 (87) 91 Room Air I & O 07/27/21 07/27/21 07/28/21 15:00 23:00 07:00 Intake Total 480 ml 960 ml Balance 480 ml 960 ml Labs: Laboratory Tests Test 07/27/21 07:34 07/27/21 09:50 Glucose (Fingerstick) 115 mg/dL (70-99) H White Blood Count 7.0 x10^3/uL (4.0-11.0) Red Blood Count 3.50 x10^6/uL (4.30-5.70) L Hemoglobin 12.1 g/dL (13.0-17.5) L Hematocrit 35.8 % (39.0-53.0) L Mean Corpuscular Volume 102 fL (79-100) H Mean Corpuscular Hemoglobin 35 pg (25-35) Mean Corpuscular Hemoglobin Concent 34 g/dL (31-37) Red Cell Distribution Width 14.4 % (11.5-14.5) Platelet Count 117 x10^3/uL (140-400) L Neutrophils (%) (Auto) 45 % (31-73) Lymphocytes (%) (Auto) 32 % (24-48) Monocytes (%) (Auto) 10 % (0-9) H Eosinophils (%) (Auto) 12 % (0-3) H Basophils (%) (Auto) 1 % (0-3) Neutrophils # (Auto) 3.2 x10^3uL (1.8-7.7) Lymphocytes # (Auto) 2.3 x10^3/uL (1.0-4.8) Monocytes # (Auto) 0.7 x10^3/uL (0.0-1.1) Eosinophils # (Auto) 0.8 x10^3/uL (0.0-0.7) H Basophils # (Auto) 0.1 x10^3/uL (0.0-0.2) Sodium Level 139 mmol/L (136-145) Potassium Level 4.1 mmol/L (3.5-5.1) Chloride Level 104 mmol/L (98-107) Carbon Dioxide Level 30 mmol/L (21-32) Anion Gap 5 (6-14) L Blood Urea Nitrogen 34 mg/dL (8-26) H Creatinine 1.1 mg/dL (0.7-1.3) Estimated GFR (Cockcroft-Gault) 64.6 BUN/Creatinine Ratio 31 (6-20) H Glucose Level 135 mg/dL (70-99) H Calcium Level 8.5 mg/dL (8.5-10.1) Total Bilirubin 0.3 mg/dL (0.2-1.0) Aspartate Amino Transferase (AST) 18 U/L (15-37) Alanine Aminotransferase (ALT) 24 U/L (16-63) Alkaline Phosphatase 128 U/L (46-116) H Total Protein 6.9 g/dL (6.4-8.2) Albumin 3.3 g/dL (3.4-5.0) L Albumin/Globulin Ratio 0.9 (1.0-1.7) L Current Medications: Meds: Laboratory Tests Test 8/29/21 07:34 07/27/21 09:50 Glucose (Fingerstick) 115 mg/dL White Blood Count 7.0 x10^3/uL Red Blood Count 3.50 x10^6/uL Hemoglobin 12.1 g/dL Hematocrit 35.8 % Mean Corpuscular Volume 102 fL Mean Corpuscular Hemoglobin 35 pg Mean Corpuscular Hemoglobin Concent 34 g/dL Red Cell Distribution Width 14.4 % Platelet Count 117 x10^3/uL Neutrophils (%) (Auto) 45 % Lymphocytes (%) (Auto) 32 % Monocytes (%) (Auto) 10 % Eosinophils (%) (Auto) 12 % Basophils (%) (Auto) 1 % Neutrophils # (Auto) 3.2 x10^3uL Lymphocytes # (Auto) 2.3 x10^3/uL Monocytes # (Auto) 0.7 x10^3/uL Eosinophils # (Auto) 0.8 x10^3/uL Basophils # (Auto) 0.1 x10^3/uL Sodium Level 139 mmol/L Potassium Level 4.1 mmol/L Chloride Level 104 mmol/L Carbon Dioxide Level 30 mmol/L Anion Gap 5 Blood Urea Nitrogen 34 mg/dL Creatinine 1.1 mg/dL Estimated GFR (Cockcroft-Gault) 64.6 BUN/Creatinine Ratio 31 Glucose Level 135 mg/dL Calcium Level 8.5 mg/dL Total Bilirubin 0.3 mg/dL Aspartate Amino Transf (AST/SGOT) 18 U/L Alanine Aminotransferase (ALT/SGPT) 24 U/L Alkaline Phosphatase 128 U/L Total Protein 6.9 g/dL Albumin 3.3 g/dL Albumin/Globulin Ratio 0.9 Current Medications Medications (Trade) Dose Ordered Sig/Aparna Route PRN Reason Start Time Stop Time Status Last Admin Dose Admin Acetaminophen (Tylenol) 650 mg PRN Q6HRS PRN PO MILD PAIN / TEMP > 100.3'F 07/06/21 00:30 Cancel Multi-Ingredient Ointment (Analgesic [place]) 1 inna PRN QID PRN TP MUSCLE PAIN 07/06/21 00:30 Al Hydroxide/Mg Hydroxide (Mylanta Plus Xs) 15 ml PRN AFTMEALHC PRN PO DYSPEPSIA 07/06/21 00:30 Magnesium Hydroxide (Milk Of Magnesia) 2,400 mg PRN QHS PRN PO 2ND CHOICE CONSTIPATION 07/06/21 00:30 07/14/21 08:13 Duloxetine HCl (Cymbalta) 20 mg HS PO 07/06/21 21:00 07/27/21 20:32 Duloxetine HCl (Cymbalta) 30 mg HS PO 07/06/21 21:00 07/27/21 20:32 Mirtazapine (Remeron) 7.5 mg HS PO 07/06/21 21:00 07/27/21 20:30 Olanzapine (ZyPREXA ZYDIS) 2.5 mg PRN Q2HR PRN PO ANXIETY / AGITATION 07/06/21 01:15 07/27/21 21:17 Trazodone HCl (Desyrel) 50 mg PRN QHS PRN PO INSOMNIA 07/06/21 01:15 07/25/21 20:56 Acetaminophen (Tylenol) 650 mg PRN Q4HRS PRN PO PAIN 07/06/21 10:30 Aspirin (Aspirin Enteric Coated) 81 mg DAILY PO 07/07/21 09:00 07/27/21 10:05 Atorvastatin Calcium (Lipitor) 10 mg QHS PO 07/06/21 21:00 07/27/21 20:32 Carvedilol (Coreg) 3.125 mg BIDWMEALS PO 07/06/21 17:00 07/25/21 17:52 DC 07/25/21 17:22 Gabapentin (Neurontin) 300 mg BID PO 07/06/21 21:00 07/27/21 20:30 Metformin HCl (Glucophage Xr) 500 mg DAILYWBKFT PO 07/07/21 08:00 07/27/21 10:05 Multi-Ingredient Ointment (Analgesic [place]) 1 inna PRN QID PRN TP PAIN 07/06/21 10:30 UNV Phenytoin Sodium (Dilantin) 500 mg HS PO 07/06/21 21:00 07/07/21 22:27 DC 07/07/21 20:05 Tamsulosin HCl (Flomax) 0.4 mg DAILY PO 07/07/21 09:00 07/27/21 10:06 Polyethylene Glycol (miraLAX) 17 gm PRN DAILY PRN PO 1ST CHOICE CONSTIPATION 07/06/21 10:45 Non-Formulary Medication (Pravastatin Sodium ) 40 mg DAILY PO 07/07/21 09:00 UNV Phenyleph/Shark Oil/Min Oil/Petrol (Preparation H) 1 inna PRN QID PRN RC RECTAL PAIN 07/06/21 15:15 Phenytoin Sodium (Dilantin) 400 mg HS PO 07/08/21 21:00 07/11/21 23:36 DC 07/11/21 20:35 Albuterol/ Ipratropium (Combivent Respimat 20-100 Mcg) 1 puff QID INH 07/08/21 13:00 07/27/21 20:29 Docusate Sodium (Colace) 100 mg DAILY PO 07/09/21 09:00 07/27/21 10:05 Guaifenesin (Mucinex Er) 600 mg BID PO 07/08/21 21:00 07/27/21 20:30 Magnesium Hydroxide (Milk Of Magnesia) 2,400 mg PRN QHS PRN PO 2nd CHOICE CONSTIPATION 07/08/21 19:30 Cancel Phenytoin Sodium (Dilantin) 200 mg HS PO 07/12/21 21:00 07/27/21 20:31 Phenytoin Sodium (Dilantin) 100 mg DAILY PO 07/12/21 09:00 07/27/21 10:05 Carvedilol (Coreg) 6.25 mg BIDWMEALS PO 07/25/21 18:00 07/25/21 18:07 DC Carvedilol (Coreg) 6.25 mg BIDWMEALS PO 07/26/21 08:00 07/27/21 17:01 I have reviewed the current psychotropics carefully including drug interactions. Risk benefit ratio favors no change other than as noted in my dictated progress note. 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
--- NOTE | 2021-07-28 06:49 | PDOC ---
Exam Note: Leo Note: This note is a late entry for 07/26/2021 covers elements not covered in my initial note. Subjective: The patient was seen face to face in the evening of 07/26/2021 with Lana KOWALSKI, discussed and reviewed the chart. The patient slept 4-1/4 hours previous night. Overall he has been cooperative but remains quite somatically preoccupied. He seems to have fairly dramatic coughing that he presents with at times. He is somewhat delusional about another demented patient in the unit. I met with him in his room and addressed this at some length. He believes the [facility] patient is wanting his money. Review of Systems: Gait unsteady. No CV, , pulmonary, eye, ENT system symptoms on review. Mental Status Exam: The patient is oriented to himself and situation. Speech coherent has some latency. Abstraction fair. Computation impaired. Language function intact. Attention span short. Mood and affect somewhat withdrawn. Laboratory Data: Reviewed. Impression: Major depressive disorder, recurrent. Major neurocognitive disorder, Alzheimer, vascular with delusion, depression, behavioral disturbance. Anxiety disorder unspecified. Impulse control disorder unspecified. Plan: Continue psychotropics from initial note. Assessment: Vital Signs/I&O: Vital Signs Date Time Temp Pulse Resp B/P (MAP) Pulse Ox O2 Delivery O2 Flow Rate FiO2 07/28/21 05:46 97.1 70 16 125/69 (87) 91 Room Air I & O 07/27/21 07/27/21 07/28/21 15:00 23:00 07:00 Intake Total 480 ml 960 ml Balance 480 ml 960 ml Labs: Laboratory Tests Test 07/27/21 07:34 07/27/21 09:50 Glucose (Fingerstick) 115 mg/dL (70-99) H White Blood Count 7.0 x10^3/uL (4.0-11.0) Red Blood Count 3.50 x10^6/uL (4.30-5.70) L Hemoglobin 12.1 g/dL (13.0-17.5) L Hematocrit 35.8 % (39.0-53.0) L Mean Corpuscular Volume 102 fL (79-100) H Mean Corpuscular Hemoglobin 35 pg (25-35) Mean Corpuscular Hemoglobin Concent 34 g/dL (31-37) Red Cell Distribution Width 14.4 % (11.5-14.5) Platelet Count 117 x10^3/uL (140-400) L Neutrophils (%) (Auto) 45 % (31-73) Lymphocytes (%) (Auto) 32 % (24-48) Monocytes (%) (Auto) 10 % (0-9) H Eosinophils (%) (Auto) 12 % (0-3) H Basophils (%) (Auto) 1 % (0-3) Neutrophils # (Auto) 3.2 x10^3uL (1.8-7.7) Lymphocytes # (Auto) 2.3 x10^3/uL (1.0-4.8) Monocytes # (Auto) 0.7 x10^3/uL (0.0-1.1) Eosinophils # (Auto) 0.8 x10^3/uL (0.0-0.7) H Basophils # (Auto) 0.1 x10^3/uL (0.0-0.2) Sodium Level 139 mmol/L (136-145) Potassium Level 4.1 mmol/L (3.5-5.1) Chloride Level 104 mmol/L (98-107) Carbon Dioxide Level 30 mmol/L (21-32) Anion Gap 5 (6-14) L Blood Urea Nitrogen 34 mg/dL (8-26) H Creatinine 1.1 mg/dL (0.7-1.3) Estimated GFR (Cockcroft-Gault) 64.6 BUN/Creatinine Ratio 31 (6-20) H Glucose Level 135 mg/dL (70-99) H Calcium Level 8.5 mg/dL (8.5-10.1) Total Bilirubin 0.3 mg/dL (0.2-1.0) Aspartate Amino Transferase (AST) 18 U/L (15-37) Alanine Aminotransferase (ALT) 24 U/L (16-63) Alkaline Phosphatase 128 U/L (46-116) H Total Protein 6.9 g/dL (6.4-8.2) Albumin 3.3 g/dL (3.4-5.0) L Albumin/Globulin Ratio 0.9 (1.0-1.7) L Current Medications: Meds: Laboratory Tests Test 07/27/21 07:34 07/27/21 09:50 Glucose (Fingerstick) 115 mg/dL White Blood Count 7.0 x10^3/uL Red Blood Count 3.50 x10^6/uL Hemoglobin 12.1 g/dL Hematocrit 35.8 % Mean Corpuscular Volume 102 fL Mean Corpuscular Hemoglobin 35 pg Mean Corpuscular Hemoglobin Concent 34 g/dL Red Cell Distribution Width 14.4 % Platelet Count 117 x10^3/uL Neutrophils (%) (Auto) 45 % Lymphocytes (%) (Auto) 32 % Monocytes (%) (Auto) 10 % Eosinophils (%) (Auto) 12 % Basophils (%) (Auto) 1 % Neutrophils # (Auto) 3.2 x10^3uL Lymphocytes # (Auto) 2.3 x10^3/uL Monocytes # (Auto) 0.7 x10^3/uL Eosinophils # (Auto) 0.8 x10^3/uL Basophils # (Auto) 0.1 x10^3/uL Sodium Level 139 mmol/L Potassium Level 4.1 mmol/L Chloride Level 104 mmol/L Carbon Dioxide Level 30 mmol/L Anion Gap 5 Blood Urea Nitrogen 34 mg/dL Creatinine 1.1 mg/dL Estimated GFR (Cockcroft-Gault) 64.6 BUN/Creatinine Ratio 31 Glucose Level 135 mg/dL Calcium Level 8.5 mg/dL Total Bilirubin 0.3 mg/dL Aspartate Amino Transf (AST/SGOT) 18 U/L Alanine Aminotransferase (ALT/SGPT) 24 U/L Alkaline Phosphatase 128 U/L Total Protein 6.9 g/dL Albumin 3.3 g/dL Albumin/Globulin Ratio 0.9 Current Medications Medications (Trade) Dose Ordered Sig/Aparna Route PRN Reason Start Time Stop Time Status Last Admin Dose Admin Acetaminophen (Tylenol) 650 mg PRN Q6HRS PRN PO MILD PAIN / TEMP > 100.3'F 07/06/21 00:30 Cancel Multi-Ingredient Ointment (Analgesic [place]) 1 inna PRN QID PRN TP MUSCLE PAIN 07/06/21 00:30 Al Hydroxide/Mg Hydroxide (Mylanta Plus Xs) 15 ml PRN AFTMEALHC PRN PO DYSPEPSIA 07/06/21 00:30 Magnesium Hydroxide (Milk Of Magnesia) 2,400 mg PRN QHS PRN PO 2ND CHOICE CONSTIPATION 07/06/21 00:30 07/14/21 08:13 Duloxetine HCl (Cymbalta) 20 mg HS PO 07/06/21 21:00 07/27/21 20:32 Duloxetine HCl (Cymbalta) 30 mg HS PO 07/06/21 21:00 07/27/21 20:32 Mirtazapine (Remeron) 7.5 mg HS PO 07/06/21 21:00 07/27/21 20:30 Olanzapine (ZyPREXA ZYDIS) 2.5 mg PRN Q2HR PRN PO ANXIETY / AGITATION 07/06/21 01:15 07/27/21 21:17 Trazodone HCl (Desyrel) 50 mg PRN QHS PRN PO INSOMNIA 07/06/21 01:15 07/25/21 20:56 Acetaminophen (Tylenol) 650 mg PRN Q4HRS PRN PO PAIN 07/06/21 10:30 Aspirin (Aspirin Enteric Coated) 81 mg DAILY PO 07/07/21 09:00 07/27/21 10:05 Atorvastatin Calcium (Lipitor) 10 mg QHS PO 07/06/21 21:00 07/27/21 20:32 Carvedilol (Coreg) 3.125 mg BIDWMEALS PO 07/06/21 17:00 07/25/21 17:52 DC 07/25/21 17:22 Gabapentin (Neurontin) 300 mg BID PO 07/06/21 21:00 07/27/21 20:30 Metformin HCl (Glucophage Xr) 500 mg DAILYWBKFT PO 07/07/21 08:00 07/27/21 10:05 Multi-Ingredient Ointment (Analgesic [place]) 1 inna PRN QID PRN TP PAIN 07/06/21 10:30 UNV Phenytoin Sodium (Dilantin) 500 mg HS PO 07/06/21 21:00 07/07/21 22:27 DC 07/07/21 20:05 Tamsulosin HCl (Flomax) 0.4 mg DAILY PO 07/07/21 09:00 07/27/21 10:06 Polyethylene Glycol (miraLAX) 17 gm PRN DAILY PRN PO 1ST CHOICE CONSTIPATION 07/06/21 10:45 Non-Formulary Medication (Pravastatin Sodium ) 40 mg DAILY PO 07/07/21 09:00 UNV Phenyleph/Shark Oil/Min Oil/Petrol (Preparation H) 1 inna PRN QID PRN RC RECTAL PAIN 07/06/21 15:15 Phenytoin Sodium (Dilantin) 400 mg HS PO 07/08/21 21:00 07/11/21 23:36 DC 07/11/21 20:35 Albuterol/ Ipratropium (Combivent Respimat 20-100 Mcg) 1 puff QID INH 07/08/21 13:00 07/27/21 20:29 Docusate Sodium (Colace) 100 mg DAILY PO 07/09/21 09:00 07/27/21 10:05 Guaifenesin (Mucinex Er) 600 mg BID PO 07/08/21 21:00 07/27/21 20:30 Magnesium Hydroxide (Milk Of Magnesia) 2,400 mg PRN QHS PRN PO 2nd CHOICE CONSTIPATION 07/08/21 19:30 Cancel Phenytoin Sodium (Dilantin) 200 mg HS PO 07/12/21 21:00 07/27/21 20:31 Phenytoin Sodium (Dilantin) 100 mg DAILY PO 07/12/21 09:00 07/27/21 10:05 Carvedilol (Coreg) 6.25 mg BIDWMEALS PO 07/25/21 18:00 07/25/21 18:07 DC Carvedilol (Coreg) 6.25 mg BIDWMEALS PO 07/26/21 08:00 07/27/21 17:01 I have reviewed the current psychotropics carefully including drug interactions. Risk benefit ratio favors no change other than as noted in my dictated progress note. 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
[2021-07-28] MEDS: IPRATROPIUM/ALBUTEROL 20/100mcg/INH INHALER. INH SCH ×4 (08:37→20:08)
[2021-07-28] MEDS: metFORMIN XR 500 MG TAB.ER.24H PO SCH (08:37)
[2021-07-28] MEDS: ASPIRIN ENTERIC COATED 81 MG TABLET.DR. PO SCH (08:37)
[2021-07-28] MEDS: CARVEDILOL 6.25 MG TABLET PO SCH ×2 (08:37→17:11)
[2021-07-28] MEDS: GABAPENTIN 300 MG CAPSULE. PO SCH ×2 (08:37→20:09)
[2021-07-28] MEDS: PHENYTOIN SODIUM EXTENDED 100 MG CAPSULE PO SCH ×2 (08:38→20:09)
[2021-07-28] MEDS: DOCUSATE SODIUM 100 MG CAPSULE PO SCH (08:38)
[2021-07-28] MEDS: TAMSULOSIN 0.4 MG CAP.ER.24H. PO SCH (08:38)
--- NOTE | 2021-07-28 12:17 | NUR ---
Nursing note: Pt in dining room at time of AM med pass and assessment. He is pleasant, med compliant and cooperative. He denies having any pain/concerns. He is currently in the dining room for lunch. Will continue to monitor.
--- NOTE | 2021-07-28 12:47 | NUR ---
WEEKLY ACTIVITY THERAPY NOTE Date of Admission: 07/06/21 Date of AT Assessment: 07/08 Precipitating behaviors that initiated intake and admission:Patient was reported to believe that his money was being stolen, his dog was being murdered, trying to leave the facility, disoriented, being tearful and crying frequently, and having sexually inappropriate conversations with other residents Goal aimed:increase socialization and engagement Initial Goal: Pt will participate in at least three individual or group Activity Therapy sessions per week. Goal changed 07/21:Pt will participate in at least five individual or group Activity Therapy sessions per week. Weekly progress towards goal: 12/03 Group participation level: 1 full Weekly highlights: sang will songs and social on Wednesday afternoon music group Behaviors observed: agitated and impatient bed was not made on Wednesday when he wanted to lay down, sleeping or withdrawn to room mostly this week Plan: no change to goal Beneficial adaptations: positive response to music groups
[2021-07-28 16:27] VITALS: BP 149/67
[2021-07-28] MEDS: DULoxetine HCL 30 MG CAPSULE.DR PO SCH (20:09)
[2021-07-28] MEDS: MIRTAZAPINE 7.5 MG TABLET. PO SCH (20:09)
[2021-07-28] MEDS: DULoxetine HCL 20 MG CAPSULE.DR PO SCH (20:09)
[2021-07-28] MEDS: ATORVASTATIN CALCIUM 10 MG TABLET. PO SCH (20:09)
--- NOTE | 2021-07-28 22:00 | PDOC ---
Exam Note: Leo Note: Please also refer to the separate dictated note~for this date of service dictated separately.~Patient seen individually. Discussed the patient with Nursing staff reviewed the chart.~Reviewed interim history and current functioning. Reviewed vital signs,~Labs/ Radiology~and current medications noted below. Continue current treatment with the changes noted in the dictated addendum note Assessment: Vital Signs/I&O: Vital Signs Date Time Temp Pulse Resp B/P (MAP) Pulse Ox O2 Delivery O2 Flow Rate FiO2 07/28/21 17:11 83 149/67 07/28/21 16:27 98.0 16 95 07/28/21 05:46 Room Air I & O 07/27/21 07/27/21 07/28/21 15:00 23:00 07:00 Intake Total 480 ml 960 ml Balance 480 ml 960 ml Labs: Laboratory Tests Test 07/28/21 07:10 Glucose (Fingerstick) 96 mg/dL (70-99) Current Medications: Meds: Laboratory Tests Test 07/28/21 07:10 Glucose (Fingerstick) 96 mg/dL Current Medications Medications (Trade) Dose Ordered Sig/Aparna Route PRN Reason Start Time Stop Time Status Last Admin Dose Admin Acetaminophen (Tylenol) 650 mg PRN Q6HRS PRN PO MILD PAIN / TEMP > 100.3'F 07/06/21 00:30 Cancel Multi-Ingredient Ointment (Analgesic [place]) 1 inna PRN QID PRN TP MUSCLE PAIN 07/06/21 00:30 Al Hydroxide/Mg Hydroxide (Mylanta Plus Xs) 15 ml PRN AFTMEALHC PRN PO DYSPEPSIA 07/06/21 00:30 Magnesium Hydroxide (Milk Of Magnesia) 2,400 mg PRN QHS PRN PO 2ND CHOICE CONSTIPATION 07/06/21 00:30 07/14/21 08:13 Duloxetine HCl (Cymbalta) 20 mg HS PO 07/06/21 21:00 07/28/21 20:09 Duloxetine HCl (Cymbalta) 30 mg HS PO 07/06/21 21:00 07/28/21 20:09 Mirtazapine (Remeron) 7.5 mg HS PO 07/06/21 21:00 07/28/21 20:09 Olanzapine (ZyPREXA ZYDIS) 2.5 mg PRN Q2HR PRN PO ANXIETY / AGITATION 07/06/21 01:15 07/27/21 21:17 Trazodone HCl (Desyrel) 50 mg PRN QHS PRN PO INSOMNIA 07/06/21 01:15 07/25/21 20:56 Acetaminophen (Tylenol) 650 mg PRN Q4HRS PRN PO PAIN 07/06/21 10:30 Aspirin (Aspirin Enteric Coated) 81 mg DAILY PO 07/07/21 09:00 07/28/21 08:37 Atorvastatin Calcium (Lipitor) 10 mg QHS PO 07/06/21 21:00 07/28/21 20:09 Carvedilol (Coreg) 3.125 mg BIDWMEALS PO 07/06/21 17:00 07/25/21 17:52 DC 07/25/21 17:22 Gabapentin (Neurontin) 300 mg BID PO 07/06/21 21:00 07/28/21 20:09 Metformin HCl (Glucophage Xr) 500 mg DAILYWBKFT PO 07/07/21 08:00 07/28/21 08:37 Multi-Ingredient Ointment (Analgesic [place]) 1 inna PRN QID PRN TP PAIN 07/06/21 10:30 UNV Phenytoin Sodium (Dilantin) 500 mg HS PO 07/06/21 21:00 07/07/21 22:27 DC 07/07/21 20:05 Tamsulosin HCl (Flomax) 0.4 mg DAILY PO 07/07/21 09:00 07/28/21 08:38 Polyethylene Glycol (miraLAX) 17 gm PRN DAILY PRN PO 1ST CHOICE CONSTIPATION 07/06/21 10:45 Non-Formulary Medication (Pravastatin Sodium ) 40 mg DAILY PO 07/07/21 09:00 UNV Phenyleph/Shark Oil/Min Oil/Petrol (Preparation H) 1 inna PRN QID PRN RC RECTAL PAIN 07/06/21 15:15 Phenytoin Sodium (Dilantin) 400 mg HS PO 07/08/21 21:00 07/11/21 23:36 DC 07/11/21 20:35 Albuterol/ Ipratropium (Combivent Respimat 20-100 Mcg) 1 puff QID INH 07/08/21 13:00 07/28/21 20:08 Docusate Sodium (Colace) 100 mg DAILY PO 07/09/21 09:00 07/28/21 08:38 Guaifenesin (Mucinex Er) 600 mg BID PO 07/08/21 21:00 07/28/21 20:09 Magnesium Hydroxide (Milk Of Magnesia) 2,400 mg PRN QHS PRN PO 2nd CHOICE CONSTIPATION 07/08/21 19:30 Cancel Phenytoin Sodium (Dilantin) 200 mg HS PO 07/12/21 21:00 07/28/21 20:09 Phenytoin Sodium (Dilantin) 100 mg DAILY PO 07/12/21 09:00 07/28/21 08:38 Carvedilol (Coreg) 6.25 mg BIDWMEALS PO 07/25/21 18:00 07/25/21 18:07 DC Carvedilol (Coreg) 6.25 mg BIDWMEALS PO 07/26/21 08:00 07/28/21 17:11 I have reviewed the current psychotropics carefully including drug interactions. Risk benefit ratio favors no change other than as noted in my dictated progress note. 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
--- NOTE | 2021-07-29 03:00 | NUR ---
Last evening pt sat in the [place] visiting with peers and was cooperative with cares and meds. After going to bed he slept for awhile but is now awake and demanding "a 8 ounce can of Coke". Other fluids offered but he only wants coke. He wheeled himself to the nurses station and repeatedly asks anyone he sees for a coke.
[2021-07-29 05:31] VITALS: BP 156/78
--- NOTE | 2021-07-29 06:30 | NUR ---
Pt has remained awake looking for someone to get him a coke saying it helps his breathing.
[2021-07-29] MEDS: DOCUSATE SODIUM 100 MG CAPSULE PO SCH (08:19)
[2021-07-29] MEDS: metFORMIN XR 500 MG TAB.ER.24H PO SCH (08:19)
[2021-07-29] MEDS: GABAPENTIN 300 MG CAPSULE. PO SCH ×2 (08:19→21:16)
[2021-07-29] MEDS: CARVEDILOL 6.25 MG TABLET PO SCH ×2 (08:20→17:13)
[2021-07-29] MEDS: PHENYTOIN SODIUM EXTENDED 100 MG CAPSULE PO SCH ×2 (08:20→21:15)
[2021-07-29] MEDS: TAMSULOSIN 0.4 MG CAP.ER.24H. PO SCH (08:20)
[2021-07-29] MEDS: ASPIRIN ENTERIC COATED 81 MG TABLET.DR. PO SCH (08:20)
[2021-07-29] MEDS: IPRATROPIUM/ALBUTEROL 20/100mcg/INH INHALER. INH SCH ×4 (08:24→21:16)
--- NOTE | 2021-07-29 10:06 | NUR ---
Nurse Note Patient up for meals , continues to cough thick cloudy sputum. Alert, disorganized. medication complaint. patient withdrawn to room in bed. Patient up since 2 am with productive cough.
[2021-07-29 15:49] VITALS: BP 133/70
[2021-07-29] MEDS: DULoxetine HCL 20 MG CAPSULE.DR PO SCH (21:15)
[2021-07-29] MEDS: ATORVASTATIN CALCIUM 10 MG TABLET. PO SCH (21:16)
[2021-07-29] MEDS: DULoxetine HCL 30 MG CAPSULE.DR PO SCH (21:16)
[2021-07-29] MEDS: MIRTAZAPINE 15 MG TABLET PO SCH (21:17)
--- NOTE | 2021-07-29 21:57 | PDOC ---
Exam Note: Leo Note: Please also refer to the separate dictated note~for this date of service dictated separately.~Patient seen individually. Discussed the patient with Nursing staff reviewed the chart.~Reviewed interim history and current functioning. Reviewed vital signs,~Labs/ Radiology~and current medications noted below. Continue current treatment with the changes noted in the dictated addendum note Assessment: Vital Signs/I&O: Vital Signs Date Time Temp Pulse Resp B/P (MAP) Pulse Ox O2 Delivery O2 Flow Rate FiO2 07/29/21 17:13 81 133/70 07/29/21 15:49 98.0 20 95 07/28/21 05:46 Room Air I & O 07/28/21 07/28/21 07/29/21 15:00 23:00 07:00 Intake Total 1080 ml 960 ml Balance 1080 ml 960 ml Labs: Laboratory Tests Test 07/29/21 07:22 Glucose (Fingerstick) 170 mg/dL (70-99) H Current Medications: Meds: Laboratory Tests Test 07/29/21 07:22 Glucose (Fingerstick) 170 mg/dL Current Medications Medications (Trade) Dose Ordered Sig/Aparna Route PRN Reason Start Time Stop Time Status Last Admin Dose Admin Acetaminophen (Tylenol) 650 mg PRN Q6HRS PRN PO MILD PAIN / TEMP > 100.3'F 07/06/21 00:30 Cancel Multi-Ingredient Ointment (Analgesic [place]) 1 inna PRN QID PRN TP MUSCLE PAIN 07/06/21 00:30 Al Hydroxide/Mg Hydroxide (Mylanta Plus Xs) 15 ml PRN AFTMEALHC PRN PO DYSPEPSIA 07/06/21 00:30 Magnesium Hydroxide (Milk Of Magnesia) 2,400 mg PRN QHS PRN PO 2ND CHOICE CONSTIPATION 07/06/21 00:30 07/14/21 08:13 Duloxetine HCl (Cymbalta) 20 mg HS PO 07/06/21 21:00 07/29/21 21:15 Duloxetine HCl (Cymbalta) 30 mg HS PO 07/06/21 21:00 07/29/21 21:16 Mirtazapine (Remeron) 7.5 mg HS PO 07/06/21 21:00 07/29/21 18:15 DC 07/28/21 20:09 Olanzapine (ZyPREXA ZYDIS) 2.5 mg PRN Q2HR PRN PO ANXIETY / AGITATION 07/06/21 01:15 07/29/21 08:20 Trazodone HCl (Desyrel) 50 mg PRN QHS PRN PO INSOMNIA 07/06/21 01:15 07/25/21 20:56 Acetaminophen (Tylenol) 650 mg PRN Q4HRS PRN PO PAIN 07/06/21 10:30 Aspirin (Aspirin Enteric Coated) 81 mg DAILY PO 07/07/21 09:00 07/29/21 08:20 Atorvastatin Calcium (Lipitor) 10 mg QHS PO 07/06/21 21:00 07/29/21 21:16 Carvedilol (Coreg) 3.125 mg BIDWMEALS PO 07/06/21 17:00 07/25/21 17:52 DC 07/25/21 17:22 Gabapentin (Neurontin) 300 mg BID PO 07/06/21 21:00 07/29/21 21:16 Metformin HCl (Glucophage Xr) 500 mg DAILYWBKFT PO 07/07/21 08:00 07/29/21 08:19 Multi-Ingredient Ointment (Analgesic [place]) 1 inna PRN QID PRN TP PAIN 07/06/21 10:30 UNV Phenytoin Sodium (Dilantin) 500 mg HS PO 07/06/21 21:00 07/07/21 22:27 DC 07/07/21 20:05 Tamsulosin HCl (Flomax) 0.4 mg DAILY PO 07/07/21 09:00 07/29/21 08:20 Polyethylene Glycol (miraLAX) 17 gm PRN DAILY PRN PO 1ST CHOICE CONSTIPATION 07/06/21 10:45 Non-Formulary Medication (Pravastatin Sodium ) 40 mg DAILY PO 07/07/21 09:00 UNV Phenyleph/Shark Oil/Min Oil/Petrol (Preparation H) 1 inna PRN QID PRN RC RECTAL PAIN 07/06/21 15:15 Phenytoin Sodium (Dilantin) 400 mg HS PO 07/08/21 21:00 07/11/21 23:36 DC 07/11/21 20:35 Albuterol/ Ipratropium (Combivent Respimat 20-100 Mcg) 1 puff QID INH 07/08/21 13:00 07/29/21 21:16 Docusate Sodium (Colace) 100 mg DAILY PO 07/09/21 09:00 07/29/21 08:19 Guaifenesin (Mucinex Er) 600 mg BID PO 07/08/21 21:00 07/29/21 21:16 Magnesium Hydroxide (Milk Of Magnesia) 2,400 mg PRN QHS PRN PO 2nd CHOICE CONSTIPATION 07/08/21 19:30 Cancel Phenytoin Sodium (Dilantin) 200 mg HS PO 07/12/21 21:00 07/29/21 21:15 Phenytoin Sodium (Dilantin) 100 mg DAILY PO 07/12/21 09:00 07/29/21 08:20 Carvedilol (Coreg) 6.25 mg BIDWMEALS PO 07/25/21 18:00 07/25/21 18:07 DC Carvedilol (Coreg) 6.25 mg BIDWMEALS PO 07/26/21 08:00 07/29/21 17:13 Mirtazapine (Remeron) 15 mg QHS PO 07/29/21 21:00 07/29/21 21:17 Current Medications Medications (Trade) Dose Ordered Sig/Aparna Route PRN Reason Start Time Stop Time Status Last Admin Dose Admin Mirtazapine (Remeron) 15 mg QHS PO 07/29/21 21:00 07/29/21 21:17 I have reviewed the current psychotropics carefully including drug interactions. Risk benefit ratio favors no change other than as noted in my dictated progress note. 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
[2021-07-30 06:08] VITALS: BP 124/68
[2021-07-30] MEDS: metFORMIN XR 500 MG TAB.ER.24H PO SCH (08:24)
[2021-07-30] MEDS: IPRATROPIUM/ALBUTEROL 20/100mcg/INH INHALER. INH SCH ×4 (08:24→20:18)
[2021-07-30] MEDS: ASPIRIN ENTERIC COATED 81 MG TABLET.DR. PO SCH (08:25)
[2021-07-30] MEDS: DOCUSATE SODIUM 100 MG CAPSULE PO SCH (08:25)
[2021-07-30] MEDS: CARVEDILOL 6.25 MG TABLET PO SCH ×2 (08:25→17:18)
[2021-07-30] MEDS: GABAPENTIN 300 MG CAPSULE. PO SCH ×2 (08:26→20:18)
[2021-07-30] MEDS: PHENYTOIN SODIUM EXTENDED 100 MG CAPSULE PO SCH ×2 (08:26→20:18)
[2021-07-30] MEDS: TAMSULOSIN 0.4 MG CAP.ER.24H. PO SCH (08:26)
--- NOTE | 2021-07-30 09:00 | PDOC ---
Exam Note: Leo Note: This note is a late entry for 07/27/2021 covers elements not covered in my initial note. Subjective: The patient was seen face to face in the evening of 07/27/2021 with Rk KOWALSKI, discussed and reviewed the chart. The patient slept 5-1/2 hours previous night. Overall he has been little demanding at times but typical for him. He had some cough. We will defer medical follow up to Dr. Niño. Review of Systems: Gait unsteady. No CV, , eye, ENT system symptoms on review. Mental Status Exam: The patient is oriented to himself and situation. Speech coherent has some latency. Abstraction fair. Computation impaired. Language function intact. Attention span short. Mood and affect somewhat anxious, labile but improved. Laboratory Data: Reviewed. Impression: Major depressive disorder, recurrent. Major neurocognitive disorder, Alzheimer, vascular with delusion, depression, behavioral disturbance. Anxiety disorder unspecified. Impulse control disorder unspecified. Plan: Continue psychotropics from initial note. Assessment: Vital Signs/I&O: Vital Signs Date Time Temp Pulse Resp B/P (MAP) Pulse Ox O2 Delivery O2 Flow Rate FiO2 07/30/21 08:25 73 124/68 07/30/21 06:08 97.6 24 92 07/28/21 05:46 Room Air I & O 07/29/21 07/29/21 07/30/21 15:00 23:00 07:00 Intake Total 600 ml 1340 ml Balance 600 ml 1340 ml Labs: Laboratory Tests Test 07/30/21 08:01 Glucose (Fingerstick) 113 mg/dL (70-99) H Current Medications: Meds: Laboratory Tests Test 07/30/21 08:01 Glucose (Fingerstick) 113 mg/dL Current Medications Medications (Trade) Dose Ordered Sig/Aparna Route PRN Reason Start Time Stop Time Status Last Admin Dose Admin Acetaminophen (Tylenol) 650 mg PRN Q6HRS PRN PO MILD PAIN / TEMP > 100.3'F 07/06/21 00:30 Cancel Multi-Ingredient Ointment (Analgesic [place]) 1 inna PRN QID PRN TP MUSCLE PAIN 07/06/21 00:30 Al Hydroxide/Mg Hydroxide (Mylanta Plus Xs) 15 ml PRN AFTMEALHC PRN PO DYSPEPSIA 07/06/21 00:30 Magnesium Hydroxide (Milk Of Magnesia) 2,400 mg PRN QHS PRN PO 2ND CHOICE CONSTIPATION 07/06/21 00:30 07/14/21 08:13 Duloxetine HCl (Cymbalta) 20 mg HS PO 07/06/21 21:00 07/29/21 21:15 Duloxetine HCl (Cymbalta) 30 mg HS PO 07/06/21 21:00 07/29/21 21:16 Mirtazapine (Remeron) 7.5 mg HS PO 07/06/21 21:00 07/29/21 18:15 DC 07/28/21 20:09 Olanzapine (ZyPREXA ZYDIS) 2.5 mg PRN Q2HR PRN PO ANXIETY / AGITATION 07/06/21 01:15 07/29/21 08:20 Trazodone HCl (Desyrel) 50 mg PRN QHS PRN PO INSOMNIA 07/06/21 01:15 07/25/21 20:56 Acetaminophen (Tylenol) 650 mg PRN Q4HRS PRN PO PAIN 07/06/21 10:30 Aspirin (Aspirin Enteric Coated) 81 mg DAILY PO 07/07/21 09:00 07/30/21 08:25 Atorvastatin Calcium (Lipitor) 10 mg QHS PO 07/06/21 21:00 07/29/21 21:16 Carvedilol (Coreg) 3.125 mg BIDWMEALS PO 07/06/21 17:00 07/25/21 17:52 DC 07/25/21 17:22 Gabapentin (Neurontin) 300 mg BID PO 07/06/21 21:00 07/30/21 08:26 Metformin HCl (Glucophage Xr) 500 mg DAILYWBKFT PO 07/07/21 08:00 07/30/21 08:24 Multi-Ingredient Ointment (Analgesic [place]) 1 inna PRN QID PRN TP PAIN 07/06/21 10:30 UNV Phenytoin Sodium (Dilantin) 500 mg HS PO 07/06/21 21:00 07/07/21 22:27 DC 07/07/21 20:05 Tamsulosin HCl (Flomax) 0.4 mg DAILY PO 07/07/21 09:00 07/30/21 08:26 Polyethylene Glycol (miraLAX) 17 gm PRN DAILY PRN PO 1ST CHOICE CONSTIPATION 07/06/21 10:45 Non-Formulary Medication (Pravastatin Sodium ) 40 mg DAILY PO 07/07/21 09:00 UNV Phenyleph/Shark Oil/Min Oil/Petrol (Preparation H) 1 inna PRN QID PRN RC RECTAL PAIN 07/06/21 15:15 Phenytoin Sodium (Dilantin) 400 mg HS PO 07/08/21 21:00 07/11/21 23:36 DC 07/11/21 20:35 Albuterol/ Ipratropium (Combivent Respimat 20-100 Mcg) 1 puff QID INH 07/08/21 13:00 07/30/21 08:24 Docusate Sodium (Colace) 100 mg DAILY PO 07/09/21 09:00 07/30/21 08:25 Guaifenesin (Mucinex Er) 600 mg BID PO 07/08/21 21:00 07/30/21 08:25 Magnesium Hydroxide (Milk Of Magnesia) 2,400 mg PRN QHS PRN PO 2nd CHOICE CONSTIPATION 07/08/21 19:30 Cancel Phenytoin Sodium (Dilantin) 200 mg HS PO 07/12/21 21:00 07/29/21 21:15 Phenytoin Sodium (Dilantin) 100 mg DAILY PO 07/12/21 09:00 07/30/21 08:26 Carvedilol (Coreg) 6.25 mg BIDWMEALS PO 07/25/21 18:00 07/25/21 18:07 DC Carvedilol (Coreg) 6.25 mg BIDWMEALS PO 07/26/21 08:00 07/30/21 08:25 Mirtazapine (Remeron) 15 mg QHS PO 07/29/21 21:00 07/29/21 21:17 Current Medications Medications (Trade) Dose Ordered Sig/Aparna Route PRN Reason Start Time Stop Time Status Last Admin Dose Admin Mirtazapine (Remeron) 15 mg QHS PO 07/29/21 21:00 07/29/21 21:17 I have reviewed the current psychotropics carefully including drug interactions. Risk benefit ratio favors no change other than as noted in my dictated progress note. 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
--- NOTE | 2021-07-30 09:24 | PDOC ---
Exam Note: Leo Note: This note is a late entry for 07/28/2021 covers elements not covered in my initial note. Subjective: The patient was reviewed at treatment team meeting individually in the morning on 07/28/2021 with Jennifer Vizcarra, Rivka Pearson (licensed clinical social worker), Tyesha, activity therapy and Gogo KOWALSKI, discussed and reviewed the chart. The patient slept 5-1/2 hours previous night. Appetite is 100%. He remains fixated on wanting Ensure. He is paranoid regarding another demented male patient on the unit. Previous night he was convinced he was going to because the amount of cough he was having. He is doing better, less anxious this morning. We will defer to Dr. Niño for medical follow up. He has been anxious, possibly being accepted at [facility]. Review of Systems: Impaired ambulation in wheelchair. No CV, , ENT system symptoms on review. He does have some cough. Mental Status Exam: The patient is oriented to himself and situation. Speech coherent has some latency. Abstraction fair. Computation impaired. Language function intact. Attention span short. Mood and affect somewhat anxious. Laboratory Data: Reviewed. Impression: Major depressive disorder, recurrent. Major neurocognitive disorder, Alzheimer, vascular with delusion, depression, behavioral disturbance. Anxiety disorder unspecified. Impulse control disorder unspecified. Plan: Continue psychotropics from initial note. Assessment: Vital Signs/I&O: Vital Signs Date Time Temp Pulse Resp B/P (MAP) Pulse Ox O2 Delivery O2 Flow Rate FiO2 07/30/21 08:25 73 124/68 07/30/21 06:08 97.6 24 92 07/28/21 05:46 Room Air I & O 07/29/21 07/29/21 07/30/21 15:00 23:00 07:00 Intake Total 600 ml 1340 ml Balance 600 ml 1340 ml Labs: Laboratory Tests Test 07/30/21 08:01 Glucose (Fingerstick) 113 mg/dL (70-99) H Current Medications: Meds: Laboratory Tests Test 07/30/21 08:01 Glucose (Fingerstick) 113 mg/dL Current Medications Medications (Trade) Dose Ordered Sig/Aparna Route PRN Reason Start Time Stop Time Status Last Admin Dose Admin Acetaminophen (Tylenol) 650 mg PRN Q6HRS PRN PO MILD PAIN / TEMP > 100.3'F 07/06/21 00:30 Cancel Multi-Ingredient Ointment (Analgesic [place]) 1 inna PRN QID PRN TP MUSCLE PAIN 07/06/21 00:30 Al Hydroxide/Mg Hydroxide (Mylanta Plus Xs) 15 ml PRN AFTMEALHC PRN PO DYSPEPSIA 07/06/21 00:30 Magnesium Hydroxide (Milk Of Magnesia) 2,400 mg PRN QHS PRN PO 2ND CHOICE CONSTIPATION 07/06/21 00:30 07/14/21 08:13 Duloxetine HCl (Cymbalta) 20 mg HS PO 07/06/21 21:00 07/29/21 21:15 Duloxetine HCl (Cymbalta) 30 mg HS PO 07/06/21 21:00 07/29/21 21:16 Mirtazapine (Remeron) 7.5 mg HS PO 07/06/21 21:00 07/29/21 18:15 DC 07/28/21 20:09 Olanzapine (ZyPREXA ZYDIS) 2.5 mg PRN Q2HR PRN PO ANXIETY / AGITATION 07/06/21 01:15 07/29/21 08:20 Trazodone HCl (Desyrel) 50 mg PRN QHS PRN PO INSOMNIA 07/06/21 01:15 07/25/21 20:56 Acetaminophen (Tylenol) 650 mg PRN Q4HRS PRN PO PAIN 07/06/21 10:30 Aspirin (Aspirin Enteric Coated) 81 mg DAILY PO 07/07/21 09:00 07/30/21 08:25 Atorvastatin Calcium (Lipitor) 10 mg QHS PO 07/06/21 21:00 07/29/21 21:16 Carvedilol (Coreg) 3.125 mg BIDWMEALS PO 07/06/21 17:00 07/25/21 17:52 DC 07/25/21 17:22 Gabapentin (Neurontin) 300 mg BID PO 07/06/21 21:00 07/30/21 08:26 Metformin HCl (Glucophage Xr) 500 mg DAILYWBKFT PO 07/07/21 08:00 07/30/21 08:24 Multi-Ingredient Ointment (Analgesic [place]) 1 inna PRN QID PRN TP PAIN 07/06/21 10:30 UNV Phenytoin Sodium (Dilantin) 500 mg HS PO 07/06/21 21:00 07/07/21 22:27 DC 07/07/21 20:05 Tamsulosin HCl (Flomax) 0.4 mg DAILY PO 07/07/21 09:00 07/30/21 08:26 Polyethylene Glycol (miraLAX) 17 gm PRN DAILY PRN PO 1ST CHOICE CONSTIPATION 07/06/21 10:45 Non-Formulary Medication (Pravastatin Sodium ) 40 mg DAILY PO 07/07/21 09:00 UNV Phenyleph/Shark Oil/Min Oil/Petrol (Preparation H) 1 inna PRN QID PRN RC RECTAL PAIN 07/06/21 15:15 Phenytoin Sodium (Dilantin) 400 mg HS PO 07/08/21 21:00 07/11/21 23:36 DC 07/11/21 20:35 Albuterol/ Ipratropium (Combivent Respimat 20-100 Mcg) 1 puff QID INH 07/08/21 13:00 07/30/21 08:24 Docusate Sodium (Colace) 100 mg DAILY PO 07/09/21 09:00 07/30/21 08:25 Guaifenesin (Mucinex Er) 600 mg BID PO 07/08/21 21:00 07/30/21 08:25 Magnesium Hydroxide (Milk Of Magnesia) 2,400 mg PRN QHS PRN PO 2nd CHOICE CONSTIPATION 07/08/21 19:30 Cancel Phenytoin Sodium (Dilantin) 200 mg HS PO 07/12/21 21:00 07/29/21 21:15 Phenytoin Sodium (Dilantin) 100 mg DAILY PO 07/12/21 09:00 07/30/21 08:26 Carvedilol (Coreg) 6.25 mg BIDWMEALS PO 07/25/21 18:00 07/25/21 18:07 DC Carvedilol (Coreg) 6.25 mg BIDWMEALS PO 07/26/21 08:00 07/30/21 08:25 Mirtazapine (Remeron) 15 mg QHS PO 07/29/21 21:00 07/29/21 21:17 Current Medications Medications (Trade) Dose Ordered Sig/Aparna Route PRN Reason Start Time Stop Time Status Last Admin Dose Admin Mirtazapine (Remeron) 15 mg QHS PO 07/29/21 21:00 07/29/21 21:17 I have reviewed the current psychotropics carefully including drug interactions. Risk benefit ratio favors no change other than as noted in my dictated progress note. 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
--- NOTE | 2021-07-30 10:31 | PDOC ---
Exam Note: Leo Note: This note is a late entry for 07/29/2021 covers elements not covered in my initial note. Subjective: The patient was seen face to face in the evening of 07/29/2021 with Anila KOWALSKI, discussed and reviewed the chart. The patient slept 2-1/4 hours previous night. He has had marked mood lability today. He is irritable, cursing at staff, aggressive. He was awake at 2 a.m. in the morning. Review of Systems: Impaired ambulation in wheelchair. No CV, , eye, ENT system symptoms on review. He is still having cough. Mental Status Exam: The patient is oriented to himself and situation. Speech coherent has some latency. Abstraction fair. Computation impaired. Language function intact. Attention span short. Mood and affect somewhat anxious, withdrawn. Laboratory Data: Reviewed. Impression: Major depressive disorder, recurrent. Major neurocognitive disorder, Alzheimer, vascular with delusion, depression, behavioral disturbance. Anxiety disorder unspecified. Impulse control disorder unspecified. Plan: Continue psychotropics from initial note. Increase Remeron to 15 mg h.s. to help with insomnia. Assessment: Vital Signs/I&O: Vital Signs Date Time Temp Pulse Resp B/P (MAP) Pulse Ox O2 Delivery O2 Flow Rate FiO2 07/30/21 08:25 73 124/68 07/30/21 06:08 97.6 24 92 07/28/21 05:46 Room Air I & O 07/29/21 07/29/21 07/30/21 15:00 23:00 07:00 Intake Total 600 ml 1340 ml Balance 600 ml 1340 ml Labs: Laboratory Tests Test 07/30/21 08:01 Glucose (Fingerstick) 113 mg/dL (70-99) H Current Medications: Meds: Laboratory Tests Test 07/30/21 08:01 Glucose (Fingerstick) 113 mg/dL Current Medications Medications (Trade) Dose Ordered Sig/Aparna Route PRN Reason Start Time Stop Time Status Last Admin Dose Admin Acetaminophen (Tylenol) 650 mg PRN Q6HRS PRN PO MILD PAIN / TEMP > 100.3'F 07/06/21 00:30 Cancel Multi-Ingredient Ointment (Analgesic [place]) 1 inna PRN QID PRN TP MUSCLE PAIN 07/06/21 00:30 Al Hydroxide/Mg Hydroxide (Mylanta Plus Xs) 15 ml PRN AFTMEALHC PRN PO DYSPEPSIA 07/06/21 00:30 Magnesium Hydroxide (Milk Of Magnesia) 2,400 mg PRN QHS PRN PO 2ND CHOICE CONSTIPATION 07/06/21 00:30 07/14/21 08:13 Duloxetine HCl (Cymbalta) 20 mg HS PO 07/06/21 21:00 07/29/21 21:15 Duloxetine HCl (Cymbalta) 30 mg HS PO 07/06/21 21:00 07/29/21 21:16 Mirtazapine (Remeron) 7.5 mg HS PO 07/06/21 21:00 07/29/21 18:15 DC 07/28/21 20:09 Olanzapine (ZyPREXA ZYDIS) 2.5 mg PRN Q2HR PRN PO ANXIETY / AGITATION 07/06/21 01:15 07/29/21 08:20 Trazodone HCl (Desyrel) 50 mg PRN QHS PRN PO INSOMNIA 07/06/21 01:15 07/25/21 20:56 Acetaminophen (Tylenol) 650 mg PRN Q4HRS PRN PO PAIN 07/06/21 10:30 Aspirin (Aspirin Enteric Coated) 81 mg DAILY PO 07/07/21 09:00 07/30/21 08:25 Atorvastatin Calcium (Lipitor) 10 mg QHS PO 07/06/21 21:00 07/29/21 21:16 Carvedilol (Coreg) 3.125 mg BIDWMEALS PO 07/06/21 17:00 07/25/21 17:52 DC 07/25/21 17:22 Gabapentin (Neurontin) 300 mg BID PO 07/06/21 21:00 07/30/21 08:26 Metformin HCl (Glucophage Xr) 500 mg DAILYWBKFT PO 07/07/21 08:00 07/30/21 08:24 Multi-Ingredient Ointment (Analgesic [place]) 1 inna PRN QID PRN TP PAIN 07/06/21 10:30 UNV Phenytoin Sodium (Dilantin) 500 mg HS PO 07/06/21 21:00 07/07/21 22:27 DC 07/07/21 20:05 Tamsulosin HCl (Flomax) 0.4 mg DAILY PO 07/07/21 09:00 07/30/21 08:26 Polyethylene Glycol (miraLAX) 17 gm PRN DAILY PRN PO 1ST CHOICE CONSTIPATION 07/06/21 10:45 Non-Formulary Medication (Pravastatin Sodium ) 40 mg DAILY PO 07/07/21 09:00 UNV Phenyleph/Shark Oil/Min Oil/Petrol (Preparation H) 1 inna PRN QID PRN RC RECTAL PAIN 07/06/21 15:15 Phenytoin Sodium (Dilantin) 400 mg HS PO 07/08/21 21:00 07/11/21 23:36 DC 07/11/21 20:35 Albuterol/ Ipratropium (Combivent Respimat 20-100 Mcg) 1 puff QID INH 07/08/21 13:00 07/30/21 08:24 Docusate Sodium (Colace) 100 mg DAILY PO 07/09/21 09:00 07/30/21 08:25 Guaifenesin (Mucinex Er) 600 mg BID PO 07/08/21 21:00 07/30/21 08:25 Magnesium Hydroxide (Milk Of Magnesia) 2,400 mg PRN QHS PRN PO 2nd CHOICE CONSTIPATION 07/08/21 19:30 Cancel Phenytoin Sodium (Dilantin) 200 mg HS PO 07/12/21 21:00 07/29/21 21:15 Phenytoin Sodium (Dilantin) 100 mg DAILY PO 07/12/21 09:00 07/30/21 08:26 Carvedilol (Coreg) 6.25 mg BIDWMEALS PO 07/25/21 18:00 07/25/21 18:07 DC Carvedilol (Coreg) 6.25 mg BIDWMEALS PO 07/26/21 08:00 07/30/21 08:25 Mirtazapine (Remeron) 15 mg QHS PO 07/29/21 21:00 07/29/21 21:17 Current Medications Medications (Trade) Dose Ordered Sig/Aparna Route PRN Reason Start Time Stop Time Status Last Admin Dose Admin Mirtazapine (Remeron) 15 mg QHS PO 07/29/21 21:00 07/29/21 21:17 I have reviewed the current psychotropics carefully including drug interactions. Risk benefit ratio favors no change other than as noted in my dictated progress note. 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
--- NOTE | 2021-07-30 12:53 | NUR ---
Pt has been calm, cooperative, and medication compliant. Pt slept after breakfast and through lunch, he seems to be more drowsy today. Pt continues to socialize with peers on the unit.
[2021-07-30 15:44] VITALS: BP 167/82
[2021-07-30] MEDS: ATORVASTATIN CALCIUM 10 MG TABLET. PO SCH (20:17)
[2021-07-30] MEDS: DULoxetine HCL 30 MG CAPSULE.DR PO SCH (20:17)
[2021-07-30] MEDS: MIRTAZAPINE 15 MG TABLET PO SCH (20:17)
[2021-07-30] MEDS: DULoxetine HCL 20 MG CAPSULE.DR PO SCH (20:17)
--- NOTE | 2021-07-30 21:55 | PDOC ---
Exam Note: Leo Note: Please also refer to the separate dictated note~for this date of service dictated separately.~Patient seen individually. Discussed the patient with Nursing staff reviewed the chart.~Reviewed interim history and current functioning. Reviewed vital signs,~Labs/ Radiology~and current medications noted below. Continue current treatment with the changes noted in the dictated addendum note Assessment: Vital Signs/I&O: Vital Signs Date Time Temp Pulse Resp B/P (MAP) Pulse Ox O2 Delivery O2 Flow Rate FiO2 07/30/21 17:18 75 167/82 07/30/21 15:44 98.2 20 92 07/28/21 05:46 Room Air I & O 07/29/21 07/29/21 07/30/21 15:00 23:00 07:00 Intake Total 600 ml 1340 ml Balance 600 ml 1340 ml Labs: Laboratory Tests Test 07/30/21 08:01 Glucose (Fingerstick) 113 mg/dL (70-99) H Current Medications: Meds: Laboratory Tests Test 07/30/21 08:01 Glucose (Fingerstick) 113 mg/dL Current Medications Medications (Trade) Dose Ordered Sig/Aparna Route PRN Reason Start Time Stop Time Status Last Admin Dose Admin Acetaminophen (Tylenol) 650 mg PRN Q6HRS PRN PO MILD PAIN / TEMP > 100.3'F 07/06/21 00:30 Cancel Multi-Ingredient Ointment (Analgesic [place]) 1 inna PRN QID PRN TP MUSCLE PAIN 07/06/21 00:30 Al Hydroxide/Mg Hydroxide (Mylanta Plus Xs) 15 ml PRN AFTMEALHC PRN PO DYSPEPSIA 07/06/21 00:30 Magnesium Hydroxide (Milk Of Magnesia) 2,400 mg PRN QHS PRN PO 2ND CHOICE CONSTIPATION 07/06/21 00:30 07/14/21 08:13 Duloxetine HCl (Cymbalta) 20 mg HS PO 07/06/21 21:00 07/30/21 20:17 Duloxetine HCl (Cymbalta) 30 mg HS PO 07/06/21 21:00 07/30/21 20:17 Mirtazapine (Remeron) 7.5 mg HS PO 07/06/21 21:00 07/29/21 18:15 DC 07/28/21 20:09 Olanzapine (ZyPREXA ZYDIS) 2.5 mg PRN Q2HR PRN PO ANXIETY / AGITATION 07/06/21 01:15 07/29/21 08:20 Trazodone HCl (Desyrel) 50 mg PRN QHS PRN PO INSOMNIA 07/06/21 01:15 07/25/21 20:56 Acetaminophen (Tylenol) 650 mg PRN Q4HRS PRN PO PAIN 07/06/21 10:30 Aspirin (Aspirin Enteric Coated) 81 mg DAILY PO 07/07/21 09:00 07/30/21 08:25 Atorvastatin Calcium (Lipitor) 10 mg QHS PO 07/06/21 21:00 07/30/21 20:17 Carvedilol (Coreg) 3.125 mg BIDWMEALS PO 07/06/21 17:00 07/25/21 17:52 DC 07/25/21 17:22 Gabapentin (Neurontin) 300 mg BID PO 07/06/21 21:00 07/30/21 20:18 Metformin HCl (Glucophage Xr) 500 mg DAILYWBKFT PO 07/07/21 08:00 07/30/21 08:24 Multi-Ingredient Ointment (Analgesic [place]) 1 inna PRN QID PRN TP PAIN 07/06/21 10:30 UNV Phenytoin Sodium (Dilantin) 500 mg HS PO 07/06/21 21:00 07/07/21 22:27 DC 07/07/21 20:05 Tamsulosin HCl (Flomax) 0.4 mg DAILY PO 07/07/21 09:00 07/30/21 08:26 Polyethylene Glycol (miraLAX) 17 gm PRN DAILY PRN PO 1ST CHOICE CONSTIPATION 07/06/21 10:45 Non-Formulary Medication (Pravastatin Sodium ) 40 mg DAILY PO 07/07/21 09:00 UNV Phenyleph/Shark Oil/Min Oil/Petrol (Preparation H) 1 inna PRN QID PRN RC RECTAL PAIN 07/06/21 15:15 Phenytoin Sodium (Dilantin) 400 mg HS PO 07/08/21 21:00 07/11/21 23:36 DC 07/11/21 20:35 Albuterol/ Ipratropium (Combivent Respimat 20-100 Mcg) 1 puff QID INH 07/08/21 13:00 07/30/21 20:18 Docusate Sodium (Colace) 100 mg DAILY PO 07/09/21 09:00 07/30/21 08:25 Guaifenesin (Mucinex Er) 600 mg BID PO 07/08/21 21:00 07/30/21 20:18 Magnesium Hydroxide (Milk Of Magnesia) 2,400 mg PRN QHS PRN PO 2nd CHOICE CONSTIPATION 07/08/21 19:30 Cancel Phenytoin Sodium (Dilantin) 200 mg HS PO 07/12/21 21:00 07/30/21 20:18 Phenytoin Sodium (Dilantin) 100 mg DAILY PO 07/12/21 09:00 07/30/21 08:26 Carvedilol (Coreg) 6.25 mg BIDWMEALS PO 07/25/21 18:00 07/25/21 18:07 DC Carvedilol (Coreg) 6.25 mg BIDWMEALS PO 07/26/21 08:00 07/30/21 17:18 Mirtazapine (Remeron) 15 mg QHS PO 07/29/21 21:00 07/30/21 20:17 I have reviewed the current psychotropics carefully including drug interactions. Risk benefit ratio favors no change other than as noted in my dictated progress note. 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
[2021-07-31 05:25] VITALS: BP 163/72
[2021-07-31] MEDS: GABAPENTIN 300 MG CAPSULE. PO SCH ×2 (08:34→20:47)
[2021-07-31] MEDS: TAMSULOSIN 0.4 MG CAP.ER.24H. PO SCH (08:35)
[2021-07-31] MEDS: PHENYTOIN SODIUM EXTENDED 100 MG CAPSULE PO SCH ×2 (08:35→20:47)
[2021-07-31] MEDS: metFORMIN XR 500 MG TAB.ER.24H PO SCH (08:35)
[2021-07-31] MEDS: ASPIRIN ENTERIC COATED 81 MG TABLET.DR. PO SCH (08:35)
[2021-07-31] MEDS: DOCUSATE SODIUM 100 MG CAPSULE PO SCH (08:35)
[2021-07-31] MEDS: IPRATROPIUM/ALBUTEROL 20/100mcg/INH INHALER. INH SCH ×4 (08:36→20:48)
[2021-07-31] MEDS: CARVEDILOL 6.25 MG TABLET PO SCH ×2 (08:36→16:12)
[2021-07-31 16:14] VITALS: BP 132/71
--- NOTE | 2021-07-31 18:18 | NUR ---
Patient was calm, compliant, and social with peers during most of the morning. After lunch he was withdrawn to his room. In the late afternoon, patient was delusional, stating that he had to get to a job with the [employer]. He stated that 'those girls' referring to staff, were keeping him from getting to the work site and was becoming agitated. PRN medication provided per emar. Will continue to monitor and report to oncoming staff.
[2021-07-31] MEDS: DULoxetine HCL 20 MG CAPSULE.DR PO SCH (20:47)
[2021-07-31] MEDS: ATORVASTATIN CALCIUM 10 MG TABLET. PO SCH (20:47)
[2021-07-31] MEDS: MIRTAZAPINE 15 MG TABLET PO SCH (20:47)
[2021-07-31] MEDS: DULoxetine HCL 30 MG CAPSULE.DR PO SCH (20:47)
[2021-07-31 21:09] LABS: BACTERIA,URINE 0 /HPF (0-FEW); BILIRUBIN,URINE NEG (NEG); CLARITY,URINE CLEAR; COLOR,URINE YELLOW; GLUCOSE,URINE NEG (NEG); NITRITE,URINE NEG (NEG); RBC,URINE 0 /HPF (0-2); SQUAMOUS EPITHELIAL CELL,UR OCC /LPF; UROBILINOGEN,URINE 0.2 mg/dL (0.2 mg/dL); WBC,URINE 0 /HPF (0-4)
--- NOTE | 2021-07-31 21:56 | PDOC ---
Exam Note: Leo Note: Please also refer to the separate dictated note~for this date of service dictated separately.~Patient seen individually. Discussed the patient with Nursing staff reviewed the chart.~Reviewed interim history and current functioning. Reviewed vital signs,~Labs/ Radiology~and current medications noted below. Continue current treatment with the changes noted in the dictated addendum note Assessment: Vital Signs/I&O: Vital Signs Date Time Temp Pulse Resp B/P (MAP) Pulse Ox O2 Delivery O2 Flow Rate FiO2 07/31/21 16:14 98.0 88 22 132/71 (91) 94 07/31/21 05:25 Room Air I & O 07/30/21 07/30/21 07/31/21 15:00 23:00 07:00 Intake Total 480 ml 570 ml Balance 480 ml 570 ml Labs: Laboratory Tests Test 07/31/21 07:34 07/31/21 20:35 Glucose (Fingerstick) 96 mg/dL (70-99) Urine Collection Type Unknown Urine Color Yellow Urine Clarity Clear Urine pH 6.5 Urine Specific [place] 1.015 Urine Protein Neg (NEG-TRACE) Urine Glucose (UA) Neg mg/dL (NEG) Urine Ketones (Stick) Neg mg/dL (NEG) Urine Blood Neg (NEG) Urine Nitrite Neg (NEG) Urine Bilirubin Neg (NEG) Urine Urobilinogen Dipstick 0.2 mg/dL (0.2 mg/dL) Urine Leukocyte Esterase Neg (NEG) Urine RBC 0 /HPF (0-2) Urine WBC 0 /HPF (0-4) Urine Squamous Epithelial Cells Occ /LPF Urine Bacteria 0 /HPF (0-FEW) Current Medications: Meds: Laboratory Tests Test 07/31/21 07:34 07/31/21 20:35 Glucose (Fingerstick) 96 mg/dL Urine Collection Type Unknown Urine Color Yellow Urine Clarity Clear Urine pH 6.5 Urine Specific [place] 1.015 Urine Protein Neg Urine Glucose (UA) Neg mg/dL Urine Ketones (Stick) Neg mg/dL Urine Blood Neg Urine Nitrite Neg Urine Bilirubin Neg Urine Urobilinogen Dipstick 0.2 mg/dL Urine Leukocyte Esterase Neg Urine RBC 0 /HPF Urine WBC 0 /HPF Urine Squamous Epithelial Cells Occ /LPF Urine Bacteria 0 /HPF Current Medications Medications (Trade) Dose Ordered Sig/Aparna Route PRN Reason Start Time Stop Time Status Last Admin Dose Admin Acetaminophen (Tylenol) 650 mg PRN Q6HRS PRN PO MILD PAIN / TEMP > 100.3'F 07/06/21 00:30 Cancel Multi-Ingredient Ointment (Analgesic [place]) 1 inna PRN QID PRN TP MUSCLE PAIN 07/06/21 00:30 Al Hydroxide/Mg Hydroxide (Mylanta Plus Xs) 15 ml PRN AFTMEALHC PRN PO DYSPEPSIA 07/06/21 00:30 Magnesium Hydroxide (Milk Of Magnesia) 2,400 mg PRN QHS PRN PO 2ND CHOICE CONSTIPATION 07/06/21 00:30 07/14/21 08:13 Duloxetine HCl (Cymbalta) 20 mg HS PO 07/06/21 21:00 07/31/21 20:47 Duloxetine HCl (Cymbalta) 30 mg HS PO 07/06/21 21:00 07/31/21 20:47 Mirtazapine (Remeron) 7.5 mg HS PO 07/06/21 21:00 07/29/21 18:15 DC 07/28/21 20:09 Olanzapine (ZyPREXA ZYDIS) 2.5 mg PRN Q2HR PRN PO ANXIETY / AGITATION 07/06/21 01:15 07/31/21 16:12 Trazodone HCl (Desyrel) 50 mg PRN QHS PRN PO INSOMNIA 07/06/21 01:15 07/25/21 20:56 Acetaminophen (Tylenol) 650 mg PRN Q4HRS PRN PO PAIN 07/06/21 10:30 Aspirin (Aspirin Enteric Coated) 81 mg DAILY PO 07/07/21 09:00 07/31/21 08:35 Atorvastatin Calcium (Lipitor) 10 mg QHS PO 07/06/21 21:00 07/31/21 20:47 Carvedilol (Coreg) 3.125 mg BIDWMEALS PO 07/06/21 17:00 07/25/21 17:52 DC 07/25/21 17:22 Gabapentin (Neurontin) 300 mg BID PO 07/06/21 21:00 07/31/21 20:47 Metformin HCl (Glucophage Xr) 500 mg DAILYWBKFT PO 07/07/21 08:00 07/31/21 08:35 Multi-Ingredient Ointment (Analgesic [place]) 1 inna PRN QID PRN TP PAIN 07/06/21 10:30 UNV Phenytoin Sodium (Dilantin) 500 mg HS PO 07/06/21 21:00 07/07/21 22:27 DC 07/07/21 20:05 Tamsulosin HCl (Flomax) 0.4 mg DAILY PO 07/07/21 09:00 07/31/21 08:35 Polyethylene Glycol (miraLAX) 17 gm PRN DAILY PRN PO 1ST CHOICE CONSTIPATION 07/06/21 10:45 Non-Formulary Medication (Pravastatin Sodium ) 40 mg DAILY PO 07/07/21 09:00 UNV Phenyleph/Shark Oil/Min Oil/Petrol (Preparation H) 1 inna PRN QID PRN RC RECTAL PAIN 07/06/21 15:15 Phenytoin Sodium (Dilantin) 400 mg HS PO 07/08/21 21:00 07/11/21 23:36 DC 07/11/21 20:35 Albuterol/ Ipratropium (Combivent Respimat 20-100 Mcg) 1 puff QID INH 07/08/21 13:00 07/31/21 20:48 Docusate Sodium (Colace) 100 mg DAILY PO 07/09/21 09:00 07/31/21 08:35 Guaifenesin (Mucinex Er) 600 mg BID PO 07/08/21 21:00 07/31/21 20:47 Magnesium Hydroxide (Milk Of Magnesia) 2,400 mg PRN QHS PRN PO 2nd CHOICE CONSTIPATION 07/08/21 19:30 Cancel Phenytoin Sodium (Dilantin) 200 mg HS PO 07/12/21 21:00 07/31/21 20:47 Phenytoin Sodium (Dilantin) 100 mg DAILY PO 07/12/21 09:00 07/31/21 08:35 Carvedilol (Coreg) 6.25 mg BIDWMEALS PO 07/25/21 18:00 07/25/21 18:07 DC Carvedilol (Coreg) 6.25 mg BIDWMEALS PO 07/26/21 08:00 07/31/21 16:12 Mirtazapine (Remeron) 15 mg QHS PO 07/29/21 21:00 07/31/21 20:47 I have reviewed the current psychotropics carefully including drug interactions. Risk benefit ratio favors no change other than as noted in my dictated progress note. 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
--- NOTE | 2021-08-01 00:20 | NUR ---
Patient was compliant with medications taken whole. He continues to force himself to cough to "bring up mucous", the mucous is white. Patient is social with others and spends time sitting in his doorway talking to two female peers. He is appropriate in his interactions with them. Patient has not expressed and delusional thinking tonight. He is cooperative and has shown no aggression towards staff. Urine sample was obtained and submitted to lab, it did not go to culture.
[2021-08-01 06:02] VITALS: BP 165/89
[2021-08-01] MEDS: GABAPENTIN 300 MG CAPSULE. PO SCH ×2 (08:13→20:12)
[2021-08-01] MEDS: ASPIRIN ENTERIC COATED 81 MG TABLET.DR. PO SCH (08:14)
[2021-08-01] MEDS: metFORMIN XR 500 MG TAB.ER.24H PO SCH (08:14)
[2021-08-01] MEDS: CARVEDILOL 6.25 MG TABLET PO SCH ×2 (08:14→17:17)
[2021-08-01] MEDS: DOCUSATE SODIUM 100 MG CAPSULE PO SCH (08:14)
[2021-08-01] MEDS: IPRATROPIUM/ALBUTEROL 20/100mcg/INH INHALER. INH SCH ×4 (08:15→20:13)
[2021-08-01] MEDS: PHENYTOIN SODIUM EXTENDED 100 MG CAPSULE PO SCH ×2 (08:15→20:12)
[2021-08-01] MEDS: TAMSULOSIN 0.4 MG CAP.ER.24H. PO SCH (08:15)
--- NOTE | 2021-08-01 09:47 | PDOC ---
Exam Note: Leo Note: This note is a late entry for 07/30/2021 covers elements not covered in my initial note. Subjective: The patient was seen face to face in the evening of 07/30/2021 with Hipolito KOWALSKI, discussed and reviewed the chart. The patient slept 4-3/4 hours previous night. I met with him in his room. He has been sleepy, ate no lunch. He was irritable previous night, demanding a Coke in the middle of the night. Review of Systems: Impaired ambulation in wheelchair. No CV, , eye, ENT system symptoms on review. Mental Status Exam: The patient is oriented to himself and situation. 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 Remote memory is reasonable. Short-term is impaired. Language function intact. Attention span short. Mood and affect somewhat anxious, withdrawn. Laboratory Data: Reviewed. Impression: Major depressive disorder, recurrent. Major neurocognitive disorder, Alzheimer, vascular with delusion, depression, behavioral disturbance. Anxiety disorder unspecified. Impulse control disorder unspecified. Plan: Continue psychotropics from initial note. Assessment: Vital Signs/I&O: Vital Signs Date Time Temp Pulse Resp B/P (MAP) Pulse Ox O2 Delivery O2 Flow Rate FiO2 08/01/21 08:14 75 165/89 08/01/21 06:02 98.3 18 97 07/31/21 05:25 Room Air I & O 07/31/21 07/31/21 08/01/21 15:00 23:00 07:00 Intake Total 1200 ml 440 ml Balance 1200 ml 440 ml Labs: Laboratory Tests Test 07/31/21 20:35 08/01/21 07:42 Urine Collection Type Unknown Urine Color Yellow Urine Clarity Clear Urine pH 6.5 Urine Specific [place] 1.015 Urine Protein Neg (NEG-TRACE) Urine Glucose (UA) Neg mg/dL (NEG) Urine Ketones (Stick) Neg mg/dL (NEG) Urine Blood Neg (NEG) Urine Nitrite Neg (NEG) Urine Bilirubin Neg (NEG) Urine Urobilinogen Dipstick 0.2 mg/dL (0.2 mg/dL) Urine Leukocyte Esterase Neg (NEG) Urine RBC 0 /HPF (0-2) Urine WBC 0 /HPF (0-4) Urine Squamous Epithelial Cells Occ /LPF Urine Bacteria 0 /HPF (0-FEW) Glucose (Fingerstick) 113 mg/dL (70-99) H Current Medications: Meds: Laboratory Tests Test 07/31/21 20:35 08/01/21 07:42 Urine Collection Type Unknown Urine Color Yellow Urine Clarity Clear Urine pH 6.5 Urine Specific [place] 1.015 Urine Protein Neg Urine Glucose (UA) Neg mg/dL Urine Ketones (Stick) Neg mg/dL Urine Blood Neg Urine Nitrite Neg Urine Bilirubin Neg Urine Urobilinogen Dipstick 0.2 mg/dL Urine Leukocyte Esterase Neg Urine RBC 0 /HPF Urine WBC 0 /HPF Urine Squamous Epithelial Cells Occ /LPF Urine Bacteria 0 /HPF Glucose (Fingerstick) 113 mg/dL Current Medications Medications (Trade) Dose Ordered Sig/Aparna Route PRN Reason Start Time Stop Time Status Last Admin Dose Admin Acetaminophen (Tylenol) 650 mg PRN Q6HRS PRN PO MILD PAIN / TEMP > 100.3'F 07/06/21 00:30 Cancel Multi-Ingredient Ointment (Analgesic [place]) 1 inna PRN QID PRN TP MUSCLE PAIN 07/06/21 00:30 Al Hydroxide/Mg Hydroxide (Mylanta Plus Xs) 15 ml PRN AFTMEALHC PRN PO DYSPEPSIA 07/06/21 00:30 Magnesium Hydroxide (Milk Of Magnesia) 2,400 mg PRN QHS PRN PO 2ND CHOICE CONSTIPATION 07/06/21 00:30 07/14/21 08:13 Duloxetine HCl (Cymbalta) 20 mg HS PO 07/06/21 21:00 07/31/21 20:47 Duloxetine HCl (Cymbalta) 30 mg HS PO 07/06/21 21:00 07/31/21 20:47 Mirtazapine (Remeron) 7.5 mg HS PO 07/06/21 21:00 07/29/21 18:15 DC 07/28/21 20:09 Olanzapine (ZyPREXA ZYDIS) 2.5 mg PRN Q2HR PRN PO ANXIETY / AGITATION 07/06/21 01:15 07/31/21 16:12 Trazodone HCl (Desyrel) 50 mg PRN QHS PRN PO INSOMNIA 07/06/21 01:15 07/25/21 20:56 Acetaminophen (Tylenol) 650 mg PRN Q4HRS PRN PO PAIN 07/06/21 10:30 Aspirin (Aspirin Enteric Coated) 81 mg DAILY PO 07/07/21 09:00 08/01/21 08:14 Atorvastatin Calcium (Lipitor) 10 mg QHS PO 07/06/21 21:00 07/31/21 20:47 Carvedilol (Coreg) 3.125 mg BIDWMEALS PO 07/06/21 17:00 07/25/21 17:52 DC 07/25/21 17:22 Gabapentin (Neurontin) 300 mg BID PO 07/06/21 21:00 08/01/21 08:13 Metformin HCl (Glucophage Xr) 500 mg DAILYWBKFT PO 07/07/21 08:00 08/01/21 08:14 Multi-Ingredient Ointment (Analgesic [place]) 1 inna PRN QID PRN TP PAIN 07/06/21 10:30 UNV Phenytoin Sodium (Dilantin) 500 mg HS PO 07/06/21 21:00 07/07/21 22:27 DC 07/07/21 20:05 Tamsulosin HCl (Flomax) 0.4 mg DAILY PO 07/07/21 09:00 08/01/21 08:15 Polyethylene Glycol (miraLAX) 17 gm PRN DAILY PRN PO 1ST CHOICE CONSTIPATION 07/06/21 10:45 Non-Formulary Medication (Pravastatin Sodium ) 40 mg DAILY PO 07/07/21 09:00 UNV Phenyleph/Shark Oil/Min Oil/Petrol (Preparation H) 1 inna PRN QID PRN RC RECTAL PAIN 07/06/21 15:15 Phenytoin Sodium (Dilantin) 400 mg HS PO 07/08/21 21:00 07/11/21 23:36 DC 07/11/21 20:35 Albuterol/ Ipratropium (Combivent Respimat 20-100 Mcg) 1 puff QID INH 07/08/21 13:00 08/01/21 08:15 Docusate Sodium (Colace) 100 mg DAILY PO 07/09/21 09:00 08/01/21 08:14 Guaifenesin (Mucinex Er) 600 mg BID PO 07/08/21 21:00 08/01/21 08:15 Magnesium Hydroxide (Milk Of Magnesia) 2,400 mg PRN QHS PRN PO 2nd CHOICE CONSTIPATION 07/08/21 19:30 Cancel Phenytoin Sodium (Dilantin) 200 mg HS PO 07/12/21 21:00 07/31/21 20:47 Phenytoin Sodium (Dilantin) 100 mg DAILY PO 07/12/21 09:00 08/01/21 08:15 Carvedilol (Coreg) 6.25 mg BIDWMEALS PO 07/25/21 18:00 07/25/21 18:07 DC Carvedilol (Coreg) 6.25 mg BIDWMEALS PO 07/26/21 08:00 08/01/21 08:14 Mirtazapine (Remeron) 15 mg QHS PO 07/29/21 21:00 07/31/21 20:47 I have reviewed the current psychotropics carefully including drug interactions. Risk benefit ratio favors no change other than as noted in my dictated progress note. 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
--- NOTE | 2021-08-01 09:59 | PDOC ---
Exam Note: Leo Note: This note is a late entry for 07/31/2021 covers elements not covered in my initial note. Subjective: The patient was seen face to face in the evening of 07/31/2021 with Lana KOWALSKI, discussed and reviewed the chart. The patient slept 4 hours previous night. He has been delusional stating he used to go for a job. UA result is awaited. I met with him in his room. Review of Systems: Impaired ambulation in wheelchair. No CV, , eye, ENT system symptoms on review. Mental Status Exam: The patient is oriented to himself and situation. Speech coherent has some latency. Abstraction fair. Computation impaired. Language function intact. Attention span short. Mood and affect somewhat anxious, withdrawn. Laboratory Data: Reviewed. Impression: Major depressive disorder, recurrent. Major neurocognitive diso rder, Alzheimer, vascular with delusion, depression, behavioral disturbance. Anxiety disorder unspecified. Impulse control disorder unspecified. Plan: Continue psychotropics from initial note. Assessment: Vital Signs/I&O: Vital Signs Date Time Temp Pulse Resp B/P (MAP) Pulse Ox O2 Delivery O2 Flow Rate FiO2 08/01/21 08:14 75 165/89 08/01/21 06:02 98.3 18 97 07/31/21 05:25 Room Air I & O 07/31/21 07/31/21 08/01/21 15:00 23:00 07:00 Intake Total 1200 ml 440 ml Balance 1200 ml 440 ml Labs: Laboratory Tests Test 07/31/21 20:35 08/01/21 07:42 Urine Collection Type Unknown Urine Color Yellow Urine Clarity Clear Urine pH 6.5 Urine Specific [place] 1.015 Urine Protein Neg (NEG-TRACE) Urine Glucose (UA) Neg mg/dL (NEG) Urine Ketones (Stick) Neg mg/dL (NEG) Urine Blood Neg (NEG) Urine Nitrite Neg (NEG) Urine Bilirubin Neg (NEG) Urine Urobilinogen Dipstick 0.2 mg/dL (0.2 mg/dL) Urine Leukocyte Esterase Neg (NEG) Urine RBC 0 /HPF (0-2) Urine WBC 0 /HPF (0-4) Urine Squamous Epithelial Cells Occ /LPF Urine Bacteria 0 /HPF (0-FEW) Glucose (Fingerstick) 113 mg/dL (70-99) H Current Medications: Meds: Laboratory Tests Test 07/31/21 20:35 08/01/21 07:42 Urine Collection Type Unknown Urine Color Yellow Urine Clarity Clear Urine pH 6.5 Urine Specific [place] 1.015 Urine Protein Neg Urine Glucose (UA) Neg mg/dL Urine Ketones (Stick) Neg mg/dL Urine Blood Neg Urine Nitrite Neg Urine Bilirubin Neg Urine Urobilinogen Dipstick 0.2 mg/dL Urine Leukocyte Esterase Neg Urine RBC 0 /HPF Urine WBC 0 /HPF Urine Squamous Epithelial Cells Occ /LPF Urine Bacteria 0 /HPF Glucose (Fingerstick) 113 mg/dL Current Medications Medications (Trade) Dose Ordered Sig/Aparna Route PRN Reason Start Time Stop Time Status Last Admin Dose Admin Acetaminophen (Tylenol) 650 mg PRN Q6HRS PRN PO MILD PAIN / TEMP > 100.3'F 07/06/21 00:30 Cancel Multi-Ingredient Ointment (Analgesic [place]) 1 inna PRN QID PRN TP MUSCLE PAIN 07/06/21 00:30 Al Hydroxide/Mg Hydroxide (Mylanta Plus Xs) 15 ml PRN AFTMEALHC PRN PO DYSPEPSIA 07/06/21 00:30 Magnesium Hydroxide (Milk Of Magnesia) 2,400 mg PRN QHS PRN PO 2ND CHOICE CONSTIPATION 07/06/21 00:30 07/14/21 08:13 Duloxetine HCl (Cymbalta) 20 mg HS PO 07/06/21 21:00 07/31/21 20:47 Duloxetine HCl (Cymbalta) 30 mg HS PO 07/06/21 21:00 07/31/21 20:47 Mirtazapine (Remeron) 7.5 mg HS PO 07/06/21 21:00 07/29/21 18:15 DC 07/28/21 20:09 Olanzapine (ZyPREXA ZYDIS) 2.5 mg PRN Q2HR PRN PO ANXIETY / AGITATION 07/06/21 01:15 07/31/21 16:12 Trazodone HCl (Desyrel) 50 mg PRN QHS PRN PO INSOMNIA 07/06/21 01:15 07/25/21 20:56 Acetaminophen (Tylenol) 650 mg PRN Q4HRS PRN PO PAIN 07/06/21 10:30 Aspirin (Aspirin Enteric Coated) 81 mg DAILY PO 07/07/21 09:00 08/01/21 08:14 Atorvastatin Calcium (Lipitor) 10 mg QHS PO 07/06/21 21:00 07/31/21 20:47 Carvedilol (Coreg) 3.125 mg BIDWMEALS PO 07/06/21 17:00 07/25/21 17:52 DC 07/25/21 17:22 Gabapentin (Neurontin) 300 mg BID PO 07/06/21 21:00 08/01/21 08:13 Metformin HCl (Glucophage Xr) 500 mg DAILYWBKFT PO 07/07/21 08:00 08/01/21 08:14 Multi-Ingredient Ointment (Analgesic [place]) 1 inna PRN QID PRN TP PAIN 07/06/21 10:30 UNV Phenytoin Sodium (Dilantin) 500 mg HS PO 07/06/21 21:00 07/07/21 22:27 DC 07/07/21 20:05 Tamsulosin HCl (Flomax) 0.4 mg DAILY PO 07/07/21 09:00 08/01/21 08:15 Polyethylene Glycol (miraLAX) 17 gm PRN DAILY PRN PO 1ST CHOICE CONSTIPATION 07/06/21 10:45 Non-Formulary Medication (Pravastatin Sodium ) 40 mg DAILY PO 07/07/21 09:00 UNV Phenyleph/Shark Oil/Min Oil/Petrol (Preparation H) 1 inna PRN QID PRN RC RECTAL PAIN 07/06/21 15:15 Phenytoin Sodium (Dilantin) 400 mg HS PO 07/08/21 21:00 07/11/21 23:36 DC 07/11/21 20:35 Albuterol/ Ipratropium (Combivent Respimat 20-100 Mcg) 1 puff QID INH 07/08/21 13:00 08/01/21 08:15 Docusate Sodium (Colace) 100 mg DAILY PO 07/09/21 09:00 08/01/21 08:14 Guaifenesin (Mucinex Er) 600 mg BID PO 07/08/21 21:00 08/01/21 08:15 Magnesium Hydroxide (Milk Of Magnesia) 2,400 mg PRN QHS PRN PO 2nd CHOICE CONSTIPATION 07/08/21 19:30 Cancel Phenytoin Sodium (Dilantin) 200 mg HS PO 07/12/21 21:00 9/2/21 20:47 Phenytoin Sodium (Dilantin) 100 mg DAILY PO 07/12/21 09:00 08/01/21 08:15 Carvedilol (Coreg) 6.25 mg BIDWMEALS PO 07/25/21 18:00 07/25/21 18:07 DC Carvedilol (Coreg) 6.25 mg BIDWMEALS PO 07/26/21 08:00 08/01/21 08:14 Mirtazapine (Remeron) 15 mg QHS PO 07/29/21 21:00 07/31/21 20:47 I have reviewed the current psychotropics carefully including drug interactions. Risk benefit ratio favors no change other than as noted in my dictated progress note. Diagnosis: Problems: (1) Impulse control disorder, unspecified (2) Anxiety disorder, unspecified (3) Dementia, vascular, with depression (4) Dementia, vascular, with delusions (5) Major neurocognitive disorder (6) Dementia in Alzheimer's disease with depression (7) Dementia in Alzheimer's disease with delusions (8) Dementia of the Alzheimer's type with early onset with behavioral disturbance (9) Major depressive disorder NIK LOYA MD Aug 01, 2021 09:59
[2021-08-01 16:33] VITALS: BP 176/85
--- NOTE | 2021-08-01 17:38 | NUR ---
Patient was calm, compliant, and social with peers during most of the shift. After lunch he was withdrawn to his room. He was forcing himself to cough in the late afternoon for prolonged periods with scant sputum produced. Will continue to monitor and report to oncoming staff.
[2021-08-01] MEDS: DULoxetine HCL 30 MG CAPSULE.DR PO SCH (20:12)
[2021-08-01] MEDS: MIRTAZAPINE 15 MG TABLET PO SCH (20:12)
[2021-08-01] MEDS: DULoxetine HCL 20 MG CAPSULE.DR PO SCH (20:12)
[2021-08-01] MEDS: ATORVASTATIN CALCIUM 10 MG TABLET. PO SCH (20:13)
[2021-08-01] MEDS: ACETAMINOPHEN 325 MG TABLET PO PRN (20:19)
[2021-08-01] MEDS: METHYL SALICYLATE/MENTHOL TOPICAL OINTMENT 57GM TUBE. TP PRN (20:19)
--- NOTE | 2021-08-01 22:06 | PDOC ---
Exam Note: Leo Note: Please also refer to the separate dictated note~for this date of service dictated separately.~Patient seen individually. Discussed the patient with Nursing staff reviewed the chart.~Reviewed interim history and current functioning. Reviewed vital signs,~Labs/ Radiology~and current medications noted below. Continue current treatment with the changes noted in the dictated addendum note Assessment: Vital Signs/I&O: Vital Signs Date Time Temp Pulse Resp B/P (MAP) Pulse Ox O2 Delivery O2 Flow Rate FiO2 08/01/21 17:17 77 176/85 08/01/21 16:33 98.3 20 96 07/31/21 05:25 Room Air I & O 07/31/21 07/31/21 08/01/21 14:59 22:59 06:59 Intake Total 1200 ml 440 ml Balance 1200 ml 440 ml Labs: Laboratory Tests Test 08/01/21 07:42 Glucose (Fingerstick) 113 mg/dL (70-99) H Current Medications: Meds: Laboratory Tests Test 08/01/21 07:42 Glucose (Fingerstick) 113 mg/dL Current Medications Medications (Trade) Dose Ordered Sig/Aparna Route PRN Reason Start Time Stop Time Status Last Admin Dose Admin Acetaminophen (Tylenol) 650 mg PRN Q6HRS PRN PO MILD PAIN / TEMP > 100.3'F 07/06/21 00:30 Cancel Multi-Ingredient Ointment (Analgesic [place]) 1 inna PRN QID PRN TP MUSCLE PAIN 07/06/21 00:30 08/01/21 20:19 Al Hydroxide/Mg Hydroxide (Mylanta Plus Xs) 15 ml PRN AFTMEALHC PRN PO DYSPEPSIA 07/06/21 00:30 Magnesium Hydroxide (Milk Of Magnesia) 2,400 mg PRN QHS PRN PO 2ND CHOICE CONSTIPATION 07/06/21 00:30 07/14/21 08:13 Duloxetine HCl (Cymbalta) 20 mg HS PO 07/06/21 21:00 08/01/21 20:12 Duloxetine HCl (Cymbalta) 30 mg HS PO 07/06/21 21:00 08/01/21 20:12 Mirtazapine (Remeron) 7.5 mg HS PO 07/06/21 21:00 07/29/21 18:15 DC 07/28/21 20:09 Olanzapine (ZyPREXA ZYDIS) 2.5 mg PRN Q2HR PRN PO ANXIETY / AGITATION 07/06/21 01:15 07/31/21 16:12 Trazodone HCl (Desyrel) 50 mg PRN QHS PRN PO INSOMNIA 07/06/21 01:15 07/25/21 20:56 Acetaminophen (Tylenol) 650 mg PRN Q4HRS PRN PO PAIN 07/06/21 10:30 08/01/21 20:19 Aspirin (Aspirin Enteric Coated) 81 mg DAILY PO 07/07/21 09:00 08/01/21 08:14 Atorvastatin Calcium (Lipitor) 10 mg QHS PO 07/06/21 21:00 08/01/21 20:13 Carvedilol (Coreg) 3.125 mg BIDWMEALS PO 07/06/21 17:00 07/25/21 17:52 DC 07/25/21 17:22 Gabapentin (Neurontin) 300 mg BID PO 07/06/21 21:00 08/01/21 20:12 Metformin HCl (Glucophage Xr) 500 mg DAILYWBKFT PO 07/07/21 08:00 08/01/21 08:14 Multi-Ingredient Ointment (Analgesic [place]) 1 inna PRN QID PRN TP PAIN 07/06/21 10:30 UNV Phenytoin Sodium (Dilantin) 500 mg HS PO 07/06/21 21:00 07/07/21 22:27 DC 07/07/21 20:05 Tamsulosin HCl (Flomax) 0.4 mg DAILY PO 07/07/21 09:00 08/01/21 08:15 Polyethylene Glycol (miraLAX) 17 gm PRN DAILY PRN PO 1ST CHOICE CONSTIPATION 07/06/21 10:45 Non-Formulary Medication (Pravastatin Sodium ) 40 mg DAILY PO 07/07/21 09:00 UNV Phenyleph/Shark Oil/Min Oil/Petrol (Preparation H) 1 inna PRN QID PRN RC RECTAL PAIN 07/06/21 15:15 Phenytoin Sodium (Dilantin) 400 mg HS PO 07/08/21 21:00 07/11/21 23:36 DC 07/11/21 20:35 Albuterol/ Ipratropium (Combivent Respimat 20-100 Mcg) 1 puff QID INH 07/08/21 13:00 08/01/21 20:13 Docusate Sodium (Colace) 100 mg DAILY PO 07/09/21 09:00 08/01/21 08:14 Guaifenesin (Mucinex Er) 600 mg BID PO 07/08/21 21:00 08/01/21 20:13 Magnesium Hydroxide (Milk Of Magnesia) 2,400 mg PRN QHS PRN PO 2nd CHOICE CONSTIPATION 07/08/21 19:30 Cancel Phenytoin Sodium (Dilantin) 200 mg HS PO 07/12/21 21:00 08/01/21 20:12 Phenytoin Sodium (Dilantin) 100 mg DAILY PO 07/12/21 09:00 08/01/21 08:15 Carvedilol (Coreg) 6.25 mg BIDWMEALS PO 07/25/21 18:00 07/25/21 18:07 DC Carvedilol (Coreg) 6.25 mg BIDWMEALS PO 07/26/21 08:00 08/01/21 17:17 Mirtazapine (Remeron) 15 mg QHS PO 07/29/21 21:00 08/01/21 20:12 I have reviewed the current psychotropics carefully including drug interactions. Risk benefit ratio favors no change other than as noted in my dictated progress note. 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
--- NOTE | 2021-08-01 22:31 | NUR ---
Patient laying in bed since shift change and is now refusing to get up to shower, states he has been in bed all day r/t pain in his back and left arm. PRN tylenol provided per order for pain. Nurse entered room to help PRODUCTION SCHEDULER get patient up into wheelchair for shower. Patient began to yell at nurse "I'm not taking a fucking shower, leave me the hell alone" and sohail back his fist as if to punch nurse. Nurse told patient that his last shower was 07/29 and he appeared dirty and unkempt. Patient continued to yell and refuse. Nurse and PRODUCTION SCHEDULER got patient into wheelchair and took him into the shower. Once in shower the patient became cooperative and allowed PRODUCTION SCHEDULER to assist him to bathe. Patient told nurse that his back still hurts, PRN analgesic balm applied along spine and neck. Patient began to complain about the smell and stated it "burned him". Nurse wiped the analgesic balm off of patient. After shower patient was observed sitting in his doorway talking to a female peer in the hallway. Patient was compliant with scheduled HS medications and is not reporting any delusions at this time.
--- NOTE | 2021-08-02 04:53 | NUR ---
Patient was knocking on the nurses station door and stating that he "is dying and cannot breathe". Nurse assessed patient and evaluated vital signs. BP elevated but other VS within normal range. O2 94-95% on room air. Patient continued to make himself cough and retch and stated that he is dying. Patients lungs have wheezes throughout. Patient does not have a "rescue inhaler" at this time. Will pass on in report to next shift to talk to hospitalist. Nurse made patient hot tea with sugar and he is sipping it in his room. Patient was advised to wear a mask when/if he is in the hallway and cover his mouth when he coughs.
[2021-08-02 06:08] VITALS: BP 173/88
[2021-08-02 08:15] VITALS: BP 168/82
[2021-08-02] MEDS: TAMSULOSIN 0.4 MG CAP.ER.24H. PO SCH (08:33)
[2021-08-02] MEDS: DOCUSATE SODIUM 100 MG CAPSULE PO SCH (08:33)
[2021-08-02] MEDS: CARVEDILOL 6.25 MG TABLET PO SCH (08:33)
[2021-08-02] MEDS: PHENYTOIN SODIUM EXTENDED 100 MG CAPSULE PO SCH ×2 (08:33→20:10)
[2021-08-02] MEDS: ASPIRIN ENTERIC COATED 81 MG TABLET.DR. PO SCH (08:34)
[2021-08-02] MEDS: GABAPENTIN 300 MG CAPSULE. PO SCH ×2 (08:34→20:09)
[2021-08-02] MEDS: IPRATROPIUM/ALBUTEROL 20/100mcg/INH INHALER. INH SCH ×4 (08:34→20:11)
[2021-08-02] MEDS: metFORMIN XR 500 MG TAB.ER.24H PO SCH (08:34)
[2021-08-02 15:34] VITALS: BP 135/75
[2021-08-02] MEDS: CARVEDILOL 12.5 MG TABLET PO SCH (17:14)
--- NOTE | 2021-08-02 18:30 | NUR ---
Patient was calm, compliant, and social with peers during most of the shift. He had an improved affect and was yodeling and singing at times. Will continue to monitor and report to oncoming staff.
[2021-08-02] MEDS: ATORVASTATIN CALCIUM 10 MG TABLET. PO SCH (20:09)
[2021-08-02] MEDS: DULoxetine HCL 20 MG CAPSULE.DR PO SCH (20:09)
[2021-08-02] MEDS: DULoxetine HCL 30 MG CAPSULE.DR PO SCH (20:09)
[2021-08-02] MEDS: MIRTAZAPINE 15 MG TABLET PO SCH (20:09)
--- NOTE | 2021-08-02 22:01 | PDOC ---
Exam Note: Leo Note: Please also refer to the separate dictated note~for this date of service dictated separately.~Patient seen individually. Discussed the patient with Nursing staff reviewed the chart.~Reviewed interim history and current functioning. Reviewed vital signs,~Labs/ Radiology~and current medications noted below. Continue current treatment with the changes noted in the dictated addendum note Assessment: Vital Signs/I&O: Vital Signs Date Time Temp Pulse Resp B/P (MAP) Pulse Ox O2 Delivery O2 Flow Rate FiO2 08/02/21 17:14 64 135/75 08/02/21 15:34 98.2 20 96 07/31/21 05:25 Room Air I & O 08/01/21 08/01/21 08/02/21 15:00 23:00 07:00 Intake Total 840 ml 720 ml Balance 840 ml 720 ml Labs: Laboratory Tests Test 08/02/21 07:21 Glucose (Fingerstick) 110 mg/dL (70-99) H Current Medications: Meds: Laboratory Tests Test 08/02/21 07:21 Glucose (Fingerstick) 110 mg/dL Current Medications Medications (Trade) Dose Ordered Sig/Aparna Route PRN Reason Start Time Stop Time Status Last Admin Dose Admin Acetaminophen (Tylenol) 650 mg PRN Q6HRS PRN PO MILD PAIN / TEMP > 100.3'F 07/06/21 00:30 Cancel Multi-Ingredient Ointment (Analgesic [place]) 1 inna PRN QID PRN TP MUSCLE PAIN 07/06/21 00:30 08/01/21 20:19 Al Hydroxide/Mg Hydroxide (Mylanta Plus Xs) 15 ml PRN AFTMEALHC PRN PO DYSPEPSIA 07/06/21 00:30 Magnesium Hydroxide (Milk Of Magnesia) 2,400 mg PRN QHS PRN PO 2ND CHOICE CONSTIPATION 07/06/21 00:30 07/14/21 08:13 Duloxetine HCl (Cymbalta) 20 mg HS PO 07/06/21 21:00 08/02/21 20:09 Duloxetine HCl (Cymbalta) 30 mg HS PO 07/06/21 21:00 08/02/21 20:09 Mirtazapine (Remeron) 7.5 mg HS PO 07/06/21 21:00 07/29/21 18:15 DC 07/28/21 20:09 Olanzapine (ZyPREXA ZYDIS) 2.5 mg PRN Q2HR PRN PO ANXIETY / AGITATION 07/06/21 01:15 07/31/21 16:12 Trazodone HCl (Desyrel) 50 mg PRN QHS PRN PO INSOMNIA 07/06/21 01:15 07/25/21 20:56 Acetaminophen (Tylenol) 650 mg PRN Q4HRS PRN PO PAIN 07/06/21 10:30 08/01/21 20:19 Aspirin (Aspirin Enteric Coated) 81 mg DAILY PO 07/07/21 09:00 08/02/21 08:34 Atorvastatin Calcium (Lipitor) 10 mg QHS PO 07/06/21 21:00 08/02/21 20:09 Carvedilol (Coreg) 3.125 mg BIDWMEALS PO 07/06/21 17:00 07/25/21 17:52 DC 07/25/21 17:22 Gabapentin (Neurontin) 300 mg BID PO 07/06/21 21:00 08/02/21 20:09 Metformin HCl (Glucophage Xr) 500 mg DAILYWBKFT PO 07/07/21 08:00 08/02/21 08:34 Multi-Ingredient Ointment (Analgesic [place]) 1 inna PRN QID PRN TP PAIN 07/06/21 10:30 UNV Phenytoin Sodium (Dilantin) 500 mg HS PO 07/06/21 21:00 07/07/21 22:27 DC 07/07/21 20:05 Tamsulosin HCl (Flomax) 0.4 mg DAILY PO 07/07/21 09:00 08/02/21 08:33 Polyethylene Glycol (miraLAX) 17 gm PRN DAILY PRN PO 1ST CHOICE CONSTIPATION 07/06/21 10:45 Non-Formulary Medication (Pravastatin Sodium ) 40 mg DAILY PO 07/07/21 09:00 UNV Phenyleph/Shark Oil/Min Oil/Petrol (Preparation H) 1 inna PRN QID PRN RC RECTAL PAIN 07/06/21 15:15 Phenytoin Sodium (Dilantin) 400 mg HS PO 07/08/21 21:00 07/11/21 23:36 DC 07/11/21 20:35 Albuterol/ Ipratropium (Combivent Respimat 20-100 Mcg) 1 puff QID INH 07/08/21 13:00 08/02/21 20:11 Docusate Sodium (Colace) 100 mg DAILY PO 07/09/21 09:00 08/02/21 08:33 Guaifenesin (Mucinex Er) 600 mg BID PO 07/08/21 21:00 08/02/21 20:09 Magnesium Hydroxide (Milk Of Magnesia) 2,400 mg PRN QHS PRN PO 2nd CHOICE CONSTIPATION 07/08/21 19:30 Cancel Phenytoin Sodium (Dilantin) 200 mg HS PO 07/12/21 21:00 08/02/21 20:10 Phenytoin Sodium (Dilantin) 100 mg DAILY PO 07/12/21 09:00 08/02/21 08:33 Carvedilol (Coreg) 6.25 mg BIDWMEALS PO 07/25/21 18:00 07/25/21 18:07 DC Carvedilol (Coreg) 6.25 mg BIDWMEALS PO 07/26/21 08:00 08/02/21 09:02 DC 08/02/21 08:33 Mirtazapine (Remeron) 15 mg QHS PO 07/29/21 21:00 08/02/21 20:09 Carvedilol (Coreg) 12.5 mg BIDWMEALS PO 08/02/21 17:00 08/02/21 17:14 Albuterol Sulfate (Ventolin Hfa Inhaler) 2 puff PRN Q4HRS PRN INH SHORTNESS OF BREATH 08/02/21 09:15 Current Medications Medications (Trade) Dose Ordered Sig/Aparna Route PRN Reason Start Time Stop Time Status Last Admin Dose Admin Carvedilol (Coreg) 12.5 mg BIDWMEALS PO 08/02/21 17:00 08/02/21 17:14 I have reviewed the current psychotropics carefully including drug interactions. Risk benefit ratio favors no change other than as noted in my dictated progress note. 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
--- NOTE | 2021-08-02 22:54 | NUR ---
Pt sitting calmly in hallway this evening socializing with peers. Pt laughing, singing and yodeling at times. Compliant with whole medications. Pt currently awake "trying to cough up mucous." Will continue to monitor.
--- NOTE | 2021-08-02 23:54 | PDOC ---
Exam Note: Leo Note: This note is a late entry for 08/01/2021 covers elements not covered in my initial note. Subjective: The patient was seen face to face in the evening of 08/01/2021 with Lana KOWALSKI, discussed and reviewed the chart. The patient slept 5-1/2 hours previous night. He has been somewhat somatically preoccupied, making himself cough. He has not been delusional, spending much time in his bed. I met with him right after he had had his shower in the evening. At one point he had pulled back his fist to hit at a nursing staff but did not do this. Review of Systems: Ambulation impaired in wheelchair. No CV, , pulmonary, eye, ENT system symptoms on review. Mental Status Exam: The patient is oriented to himself and situation at times. Speech coherent has some latency. Abstraction fair. Computation impaired. Manuel guage function intact. Mood and affect somewhat withdrawn. Laboratory Data: Reviewed. Impression: Major depressive disorder, recurrent. Major neurocognitive disorder, Alzheimer, vascular with delusion, depression, behavioral disturbance. Anxiety disorder unspecified. Impulse control disorder unspecified. Plan: Continue psychotropics from initial note. Assessment: Vital Signs/I&O: Vital Signs Date Time Temp Pulse Resp B/P (MAP) Pulse Ox O2 Delivery O2 Flow Rate FiO2 08/02/21 17:14 64 135/75 08/02/21 15:34 98.2 20 96 07/31/21 05:25 Room Air I & O 08/01/21 08/01/21 08/02/21 15:00 23:00 07:00 Intake Total 840 ml 720 ml Balance 840 ml 720 ml Labs: Laboratory Tests Test 08/02/21 07:21 Glucose (Fingerstick) 110 mg/dL (70-99) H Current Medications: Meds: Laboratory Tests Test 08/02/21 07:21 Glucose (Fingerstick) 110 mg/dL Current Medications Medications (Trade) Dose Ordered Sig/Aparna Route PRN Reason Start Time Stop Time Status Last Admin Dose Admin Acetaminophen (Tylenol) 650 mg PRN Q6HRS PRN PO MILD PAIN / TEMP > 100.3'F 07/06/21 00:30 Cancel Multi-Ingredient Ointment (Analgesic [place]) 1 inna PRN QID PRN TP MUSCLE PAIN 07/06/21 00:30 08/01/21 20:19 Al Hydroxide/Mg Hydroxide (Mylanta Plus Xs) 15 ml PRN AFTMEALHC PRN PO DYSPEPSIA 07/06/21 00:30 Magnesium Hydroxide (Milk Of Magnesia) 2,400 mg PRN QHS PRN PO 2ND CHOICE CONSTIPATION 07/06/21 00:30 07/14/21 08:13 Duloxetine HCl (Cymbalta) 20 mg HS PO 07/06/21 21:00 08/02/21 20:09 Duloxetine HCl (Cymbalta) 30 mg HS PO 07/06/21 21:00 08/02/21 20:09 Mirtazapine (Remeron) 7.5 mg HS PO 07/06/21 21:00 07/29/21 18:15 DC 07/28/21 20:09 Olanzapine (ZyPREXA ZYDIS) 2.5 mg PRN Q2HR PRN PO ANXIETY / AGITATION 07/06/21 01:15 08/02/21 23:39 Trazodone HCl (Desyrel) 50 mg PRN QHS PRN PO INSOMNIA 07/06/21 01:15 07/25/21 20:56 Acetaminophen (Tylenol) 650 mg PRN Q4HRS PRN PO PAIN 07/06/21 10:30 08/01/21 20:19 Aspirin (Aspirin Enteric Coated) 81 mg DAILY PO 07/07/21 09:00 08/02/21 08:34 Atorvastatin Calcium (Lipitor) 10 mg QHS PO 07/06/21 21:00 08/02/21 20:09 Carvedilol (Coreg) 3.125 mg BIDWMEALS PO 07/06/21 17:00 07/25/21 17:52 DC 07/25/21 17:22 Gabapentin (Neurontin) 300 mg BID PO 07/06/21 21:00 08/02/21 20:09 Metformin HCl (Glucophage Xr) 500 mg DAILYWBKFT PO 07/07/21 08:00 08/02/21 08:34 Multi-Ingredient Ointment (Analgesic [place]) 1 inna PRN QID PRN TP PAIN 07/06/21 10:30 UNV Phenytoin Sodium (Dilantin) 500 mg HS PO 07/06/21 21:00 07/07/21 22:27 DC 07/07/21 20:05 Tamsulosin HCl (Flomax) 0.4 mg DAILY PO 07/07/21 09:00 08/02/21 08:33 Polyethylene Glycol (miraLAX) 17 gm PRN DAILY PRN PO 1ST CHOICE CONSTIPATION 07/06/21 10:45 Non-Formulary Medication (Pravastatin Sodium ) 40 mg DAILY PO 07/07/21 09:00 UNV Phenyleph/Shark Oil/Min Oil/Petrol (Preparation H) 1 inna PRN QID PRN RC RECTAL PAIN 07/06/21 15:15 Phenytoin Sodium (Dilantin) 400 mg HS PO 07/08/21 21:00 07/11/21 23:36 DC 07/11/21 20:35 Albuterol/ Ipratropium (Combivent Respimat 20-100 Mcg) 1 puff QID INH 07/08/21 13:00 08/02/21 20:11 Docusate Sodium (Colace) 100 mg DAILY PO 07/09/21 09:00 08/02/21 08:33 Guaifenesin (Mucinex Er) 600 mg BID PO 07/08/21 21:00 08/02/21 20:09 Magnesium Hydroxide (Milk Of Magnesia) 2,400 mg PRN QHS PRN PO 2nd CHOICE CONSTIPATION 07/08/21 19:30 Cancel Phenytoin Sodium (Dilantin) 200 mg HS PO 07/12/21 21:00 08/02/21 20:10 Phenytoin Sodium (Dilantin) 100 mg DAILY PO 07/12/21 09:00 08/02/21 08:33 Carvedilol (Coreg) 6.25 mg BIDWMEALS PO 07/25/21 18:00 07/25/21 18:07 DC Carvedilol (Coreg) 6.25 mg BIDWMEALS PO 07/26/21 08:00 08/02/21 09:02 DC 08/02/21 08:33 Mirtazapine (Remeron) 15 mg QHS PO 07/29/21 21:00 08/02/21 20:09 Carvedilol (Coreg) 12.5 mg BIDWMEALS PO 08/02/21 17:00 08/02/21 17:14 Albuterol Sulfate (Ventolin Hfa Inhaler) 2 puff PRN Q4HRS PRN INH SHORTNESS OF BREATH 08/02/21 09:15 Current Medications Medications (Trade) Dose Ordered Sig/Aparna Route PRN Reason Start Time Stop Time Status Last Admin Dose Admin Carvedilol (Coreg) 12.5 mg BIDWMEALS PO 08/02/21 17:00 08/02/21 17:14 I have reviewed the current psychotropics carefully including drug interactions. Risk benefit ratio favors no change other than as noted in my dictated progress note. 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
[2021-08-03] MEDS: DOCUSATE SODIUM 100 MG CAPSULE PO SCH (08:18)
[2021-08-03] MEDS: TAMSULOSIN 0.4 MG CAP.ER.24H. PO SCH (08:19)
[2021-08-03] MEDS: CARVEDILOL 12.5 MG TABLET PO SCH ×2 (08:19→17:32)
[2021-08-03] MEDS: GABAPENTIN 300 MG CAPSULE. PO SCH ×2 (08:19→20:23)
[2021-08-03] MEDS: metFORMIN XR 500 MG TAB.ER.24H PO SCH (08:19)
[2021-08-03] MEDS: ASPIRIN ENTERIC COATED 81 MG TABLET.DR. PO SCH (08:19)
[2021-08-03] MEDS: PHENYTOIN SODIUM EXTENDED 100 MG CAPSULE PO SCH ×2 (08:20→20:23)
[2021-08-03] MEDS: IPRATROPIUM/ALBUTEROL 20/100mcg/INH INHALER. INH SCH ×4 (08:23→20:24)
[2021-08-03 08:55] LABS: BASO # 0.1 x10^3/uL (0.0-0.2); BASO % 1 % (0-3); EOS # 0.7 x10^3/uL (0.0-0.7); EOS % 11 % (0-3); HEMATOCRIT 35.7 % (39.0-53.0); HEMOGLOBIN 11.9 g/dL (13.0-17.5); LYMPH # 2.3 x10^3/uL (1.0-4.8); LYMPH % 34 % (24-48); MEAN CORPUSCULAR HEMOGLOBIN 34 pg (25-35); MEAN CORPUSCULAR HGB CONC 33 g/dL (31-37); MEAN CORPUSCULAR VOLUME 103 fL (79-100); MONO # 0.8 x10^3/uL (0.0-1.1); MONO % 12 % (0-9); NEUT # 2.9 x10^3uL (1.8-7.7); NEUT % 43 % (31-73); PLATELET COUNT 116 x10^3/uL (140-400); RED BLOOD COUNT 3.48 x10^6/uL (4.30-5.70); RED CELL DISTRIBUTION WIDTH 13.9 % (11.5-14.5); WHITE BLOOD COUNT 6.8 x10^3/uL (4.0-11.0)
[2021-08-03 09:00] VITALS: BP 162/74
[2021-08-03 09:09] LABS: ALBUMIN 3.5 g/dL (3.4-5.0); CREATININE 1.2 mg/dL (0.7-1.3); GFR 58.4; POTASSIUM 4.4 mmol/L (3.5-5.1); TOTAL BILIRUBIN 0.3 mg/dL (0.2-1.0); TOTAL PROTEIN 7.1 g/dL (6.4-8.2)
--- NOTE | 2021-08-03 11:52 | NUR ---
Nursing note: Pt in dining room at time of AM med pass and assessment. He is pleasant, med compliant and cooperative. Pt denies having any pain. He has been withdrawn to his room this AM, but is currently getting ready for lunch. Will continue to monitor.
[2021-08-03 15:55] VITALS: BP 124/65
[2021-08-03] MEDS: DULoxetine HCL 20 MG CAPSULE.DR PO SCH (20:23)
[2021-08-03] MEDS: MIRTAZAPINE 15 MG TABLET PO SCH (20:23)
[2021-08-03] MEDS: DULoxetine HCL 30 MG CAPSULE.DR PO SCH (20:23)
[2021-08-03] MEDS: ATORVASTATIN CALCIUM 10 MG TABLET. PO SCH (20:23)
--- NOTE | 2021-08-03 22:19 | PDOC ---
Exam Note: Leo Note: Please also refer to the separate dictated note~for this date of service dictated separately.~Patient seen individually. Discussed the patient with Nursing staff reviewed the chart.~Reviewed interim history and current functioning. Reviewed vital signs,~Labs/ Radiology~and current medications noted below. Continue current treatment with the changes noted in the dictated addendum note Assessment: Vital Signs/I&O: Vital Signs Date Time Temp Pulse Resp B/P (MAP) Pulse Ox O2 Delivery O2 Flow Rate FiO2 08/03/21 17:32 71 124/65 08/03/21 15:55 98.2 20 97 07/31/21 05:25 Room Air I & O 08/02/21 08/02/21 08/03/21 15:00 23:00 07:00 Intake Total 1320 ml 360 ml Balance 1320 ml 360 ml Labs: Laboratory Tests Test 08/03/21 07:34 08/03/21 08:30 Glucose (Fingerstick) 118 mg/dL (70-99) H White Blood Count 6.8 x10^3/uL (4.0-11.0) Red Blood Count 3.48 x10^6/uL (4.30-5.70) L Hemoglobin 11.9 g/dL (13.0-17.5) L Hematocrit 35.7 % (39.0-53.0) L Mean Corpuscular Volume 103 fL (79-100) H Mean Corpuscular Hemoglobin 34 pg (25-35) Mean Corpuscular Hemoglobin Concent 33 g/dL (31-37) Red Cell Distribution Width 13.9 % (11.5-14.5) Platelet Count 116 x10^3/uL (140-400) L Neutrophils (%) (Auto) 43 % (31-73) Lymphocytes (%) (Auto) 34 % (24-48) Monocytes (%) (Auto) 12 % (0-9) H Eosinophils (%) (Auto) 11 % (0-3) H Basophils (%) (Auto) 1 % (0-3) Neutrophils # (Auto) 2.9 x10^3uL (1.8-7.7) Lymphocytes # (Auto) 2.3 x10^3/uL (1.0-4.8) Monocytes # (Auto) 0.8 x10^3/uL (0.0-1.1) Eosinophils # (Auto) 0.7 x10^3/uL (0.0-0.7) Basophils # (Auto) 0.1 x10^3/uL (0.0-0.2) Sodium Level 142 mmol/L (136-145) Potassium Level 4.4 mmol/L (3.5-5.1) Chloride Level 105 mmol/L (98-107) Carbon Dioxide Level 31 mmol/L (21-32) Anion Gap 6 (6-14) Blood Urea Nitrogen 43 mg/dL (8-26) H Creatinine 1.2 mg/dL (0.7-1.3) Estimated GFR (Cockcroft-Gault) 58.4 BUN/Creatinine Ratio 36 (6-20) H Glucose Level 124 mg/dL (70-99) H Calcium Level 9.0 mg/dL (8.5-10.1) Total Bilirubin 0.3 mg/dL (0.2-1.0) Aspartate Amino Transferase (AST) 25 U/L (15-37) Alanine Aminotransferase (ALT) 28 U/L (16-63) Alkaline Phosphatase 130 U/L (46-116) H Total Protein 7.1 g/dL (6.4-8.2) Albumin 3.5 g/dL (3.4-5.0) Albumin/Globulin Ratio 1.0 (1.0-1.7) Current Medications: Meds: Laboratory Tests Test 08/03/21 07:34 08/03/21 08:30 Glucose (Fingerstick) 118 mg/dL White Blood Count 6.8 x10^3/uL Red Blood Count 3.48 x10^6/uL Hemoglobin 11.9 g/dL Hematocrit 35.7 % Mean Corpuscular Volume 103 fL Mean Corpuscular Hemoglobin 34 pg Mean Corpuscular Hemoglobin Concent 33 g/dL Red Cell Distribution Width 13.9 % Platelet Count 116 x10^3/uL Neutrophils (%) (Auto) 43 % Lymphocytes (%) (Auto) 34 % Monocytes (%) (Auto) 12 % Eosinophils (%) (Auto) 11 % Basophils (%) (Auto) 1 % Neutrophils # (Auto) 2.9 x10^3uL Lymphocytes # (Auto) 2.3 x10^3/uL Monocytes # (Auto) 0.8 x10^3/uL Eosinophils # (Auto) 0.7 x10^3/uL Basophils # (Auto) 0.1 x10^3/uL Sodium Level 142 mmol/L Potassium Level 4.4 mmol/L Chloride Level 105 mmol/L Carbon Dioxide Level 31 mmol/L Anion Gap 6 Blood Urea Nitrogen 43 mg/dL Creatinine 1.2 mg/dL Estimated GFR (Cockcroft-Gault) 58.4 BUN/Creatinine Ratio 36 Glucose Level 124 mg/dL Calcium Level 9.0 mg/dL Total Bilirubin 0.3 mg/dL Aspartate Amino Transf (AST/SGOT) 25 U/L Alanine Aminotransferase (ALT/SGPT) 28 U/L Alkaline Phosphatase 130 U/L Total Protein 7.1 g/dL Albumin 3.5 g/dL Albumin/Globulin Ratio 1.0 Current Medications Medications (Trade) Dose Ordered Sig/Aparna Route PRN Reason Start Time Stop Time Status Last Admin Dose Admin Acetaminophen (Tylenol) 650 mg PRN Q6HRS PRN PO MILD PAIN / TEMP > 100.3'F 07/06/21 00:30 Cancel Multi-Ingredient Ointment (Analgesic [place]) 1 inna PRN QID PRN TP MUSCLE PAIN 07/06/21 00:30 08/01/21 20:19 Al Hydroxide/Mg Hydroxide (Mylanta Plus Xs) 15 ml PRN AFTMEALHC PRN PO DYSPEPSIA 07/06/21 00:30 Magnesium Hydroxide (Milk Of Magnesia) 2,400 mg PRN QHS PRN PO 2ND CHOICE CONSTIPATION 07/06/21 00:30 07/14/21 08:13 Duloxetine HCl (Cymbalta) 20 mg HS PO 07/06/21 21:00 08/03/21 20:23 Duloxetine HCl (Cymbalta) 30 mg HS PO 07/06/21 21:00 08/03/21 20:23 Mirtazapine (Remeron) 7.5 mg HS PO 07/06/21 21:00 07/29/21 18:15 DC 07/28/21 20:09 Olanzapine (ZyPREXA ZYDIS) 2.5 mg PRN Q2HR PRN PO ANXIETY / AGITATION 07/06/21 01:15 08/02/21 23:39 Trazodone HCl (Desyrel) 50 mg PRN QHS PRN PO INSOMNIA 07/06/21 01:15 07/25/21 20:56 Acetaminophen (Tylenol) 650 mg PRN Q4HRS PRN PO PAIN 07/06/21 10:30 08/01/21 20:19 Aspirin (Aspirin Enteric Coated) 81 mg DAILY PO 07/07/21 09:00 08/03/21 08:19 Atorvastatin Calcium (Lipitor) 10 mg QHS PO 07/06/21 21:00 08/03/21 20:23 Carvedilol (Coreg) 3.125 mg BIDWMEALS PO 07/06/21 17:00 07/25/21 17:52 DC 07/25/21 17:22 Gabapentin (Neurontin) 300 mg BID PO 07/06/21 21:00 08/03/21 20:23 Metformin HCl (Glucophage Xr) 500 mg DAILYWBKFT PO 07/07/21 08:00 08/03/21 08:19 Multi-Ingredient Ointment (Analgesic [place]) 1 inna PRN QID PRN TP PAIN 07/06/21 10:30 UNV Phenytoin Sodium (Dilantin) 500 mg HS PO 07/06/21 21:00 07/07/21 22:27 DC 07/07/21 20:05 Tamsulosin HCl (Flomax) 0.4 mg DAILY PO 07/07/21 09:00 08/03/21 08:19 Polyethylene Glycol (miraLAX) 17 gm PRN DAILY PRN PO 1ST CHOICE CONSTIPATION 07/06/21 10:45 Non-Formulary Medication (Pravastatin Sodium ) 40 mg DAILY PO 07/07/21 09:00 UNV Phenyleph/Shark Oil/Min Oil/Petrol (Preparation H) 1 inna PRN QID PRN RC RECTAL PAIN 07/06/21 15:15 Phenytoin Sodium (Dilantin) 400 mg HS PO 07/08/21 21:00 07/11/21 23:36 DC 07/11/21 20:35 Albuterol/ Ipratropium (Combivent Respimat 20-100 Mcg) 1 puff QID INH 07/08/21 13:00 08/03/21 20:24 Docusate Sodium (Colace) 100 mg DAILY PO 07/09/21 09:00 08/03/21 08:18 Guaifenesin (Mucinex Er) 600 mg BID PO 07/08/21 21:00 08/03/21 20:23 Magnesium Hydroxide (Milk Of Magnesia) 2,400 mg PRN QHS PRN PO 2nd CHOICE CONSTIPATION 07/08/21 19:30 Cancel Phenytoin Sodium (Dilantin) 200 mg HS PO 07/12/21 21:00 08/03/21 20:23 Phenytoin Sodium (Dilantin) 100 mg DAILY PO 07/12/21 09:00 08/03/21 08:20 Carvedilol (Coreg) 6.25 mg BIDWMEALS PO 07/25/21 18:00 07/25/21 18:07 DC Carvedilol (Coreg) 6.25 mg BIDWMEALS PO 07/26/21 08:00 08/02/21 09:02 DC 08/02/21 08:33 Mirtazapine (Remeron) 15 mg QHS PO 07/29/21 21:00 08/03/21 20:23 Carvedilol (Coreg) 12.5 mg BIDWMEALS PO 08/02/21 17:00 08/03/21 17:32 Albuterol Sulfate (Ventolin Hfa Inhaler) 2 puff PRN Q4HRS PRN INH SHORTNESS OF BREATH 08/02/21 09:15 I have reviewed the current psychotropics carefully including drug interactions. Risk benefit ratio favors no change other than as noted in my dictated progress note. 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
--- NOTE | 2021-08-03 22:34 | NUR ---
Pt located in the hallway this evening socializing with peers. Pt became angry when assisted to shower but was not combative. Compliant with whole medications.
[2021-08-04 05:59] VITALS: BP 171/92
[2021-08-04] MEDS: metFORMIN XR 500 MG TAB.ER.24H PO SCH (08:11)
[2021-08-04] MEDS: GABAPENTIN 300 MG CAPSULE. PO SCH ×2 (08:12→20:06)
[2021-08-04] MEDS: CARVEDILOL 12.5 MG TABLET PO SCH ×2 (08:12→17:15)
[2021-08-04] MEDS: ASPIRIN ENTERIC COATED 81 MG TABLET.DR. PO SCH (08:13)
[2021-08-04] MEDS: DOCUSATE SODIUM 100 MG CAPSULE PO SCH (08:13)
[2021-08-04] MEDS: TAMSULOSIN 0.4 MG CAP.ER.24H. PO SCH (08:13)
[2021-08-04] MEDS: PHENYTOIN SODIUM EXTENDED 100 MG CAPSULE PO SCH ×2 (08:14→20:06)
[2021-08-04] MEDS: IPRATROPIUM/ALBUTEROL 20/100mcg/INH INHALER. INH SCH ×4 (08:15→20:06)
--- NOTE | 2021-08-04 09:55 | NUR ---
Nursing note: Pt in dining room at time of AM med pass and assessment. He is pleasant, med compliant and cooperative. Pt denies any pain/concerns. He is currently resting quietly in his room. Will continue to monitor.
--- NOTE | 2021-08-04 10:08 | PDOC ---
Exam Note: Leo Note: This note is a late entry for 08/02/2021 covers elements not covered in my initial note. Subjective: The patient was seen individually in the evening of 08/02/2021 with Tenisha KOWALSKI, discussed and reviewed the chart. The patient slept 3-1/2 hours previous night. He has been somewhat belligerent previous night but done better during the day today and has been fairly appropriate. I met with him outside his room. He is in a wheelchair. Review of Systems: Ambulation impaired in wheelchair. No CV, , pulmonary, eye, ENT system symptoms on review. Mental Status Exam: The patient is oriented to himself and situation. Speech coherent. Abstraction fair. Computation impaired. Language function intact. Mood and affect still intermittently irritable but improved, somewhat depressed. Laboratory Data: Reviewed. Impression: Major depressive disorder, recurrent. Major neurocognitive disorder, Alzheimer, vascular with delusion, depression, behavioral disturbance. Anxiety disorder unspecified. Impulse control disorder unspecified. Plan: Continue psychotropics from initial note. Assessment: Vital Signs/I&O: Vital Signs Date Time Temp Pulse Resp B/P (MAP) Pulse Ox O2 Delivery O2 Flow Rate FiO2 08/04/21 08:12 82 171/92 08/04/21 05:59 97.6 22 94 07/31/21 05:25 Room Air I & O 08/03/21 08/03/21 08/04/21 15:00 23:00 07:00 Intake Total 1200 ml 840 ml Balance 1200 ml 840 ml Labs: Laboratory Tests Test 08/04/21 07:31 Glucose (Fingerstick) 134 mg/dL (70-99) H Current Medications: Meds: Laboratory Tests Test 08/04/21 07:31 Glucose (Fingerstick) 134 mg/dL Current Medications Medications (Trade) Dose Ordered Sig/Aparna Route PRN Reason Start Time Stop Time Status Last Admin Dose Admin Acetaminophen (Tylenol) 650 mg PRN Q6HRS PRN PO MILD PAIN / TEMP > 100.3'F 07/06/21 00:30 Cancel Multi-Ingredient Ointment (Analgesic [place]) 1 inna PRN QID PRN TP MUSCLE PAIN 07/06/21 00:30 08/01/21 20:19 Al Hydroxide/Mg Hydroxide (Mylanta Plus Xs) 15 ml PRN AFTMEALHC PRN PO DYSPEPSIA 07/06/21 00:30 Magnesium Hydroxide (Milk Of Magnesia) 2,400 mg PRN QHS PRN PO 2ND CHOICE CONSTIPATION 07/06/21 00:30 07/14/21 08:13 Duloxetine HCl (Cymbalta) 20 mg HS PO 07/06/21 21:00 08/03/21 20:23 Duloxetine HCl (Cymbalta) 30 mg HS PO 07/06/21 21:00 08/03/21 20:23 Mirtazapine (Remeron) 7.5 mg HS PO 07/06/21 21:00 07/29/21 18:15 DC 07/28/21 20:09 Olanzapine (ZyPREXA ZYDIS) 2.5 mg PRN Q2HR PRN PO ANXIETY / AGITATION 07/06/21 01:15 08/02/21 23:39 Trazodone HCl (Desyrel) 50 mg PRN QHS PRN PO INSOMNIA 07/06/21 01:15 07/25/21 20:56 Acetaminophen (Tylenol) 650 mg PRN Q4HRS PRN PO PAIN 07/06/21 10:30 08/01/21 20:19 Aspirin (Aspirin Enteric Coated) 81 mg DAILY PO 07/07/21 09:00 08/04/21 08:13 Atorvastatin Calcium (Lipitor) 10 mg QHS PO 07/06/21 21:00 08/03/21 20:23 Carvedilol (Coreg) 3.125 mg BIDWMEALS PO 07/06/21 17:00 07/25/21 17:52 DC 07/25/21 17:22 Gabapentin (Neurontin) 300 mg BID PO 07/06/21 21:00 08/04/21 08:12 Metformin HCl (Glucophage Xr) 500 mg DAILYWBKFT PO 07/07/21 08:00 08/04/21 08:11 Multi-Ingredient Ointment (Analgesic [place]) 1 inna PRN QID PRN TP PAIN 07/06/21 10:30 UNV Phenytoin Sodium (Dilantin) 500 mg HS PO 07/06/21 21:00 07/07/21 22:27 DC 07/07/21 20:05 Tamsulosin HCl (Flomax) 0.4 mg DAILY PO 07/07/21 09:00 08/04/21 08:13 Polyethylene Glycol (miraLAX) 17 gm PRN DAILY PRN PO 1ST CHOICE CONSTIPATION 07/06/21 10:45 Non-Formulary Medication (Pravastatin Sodium ) 40 mg DAILY PO 07/07/21 09:00 UNV Phenyleph/Shark Oil/Min Oil/Petrol (Preparation H) 1 inna PRN QID PRN RC RECTAL PAIN 07/06/21 15:15 Phenytoin Sodium (Dilantin) 400 mg HS PO 07/08/21 21:00 07/11/21 23:36 DC 07/11/21 20:35 Albuterol/ Ipratropium (Combivent Respimat 20-100 Mcg) 1 puff QID INH 07/08/21 13:00 08/04/21 08:15 Docusate Sodium (Colace) 100 mg DAILY PO 07/09/21 09:00 08/04/21 08:13 Guaifenesin (Mucinex Er) 600 mg BID PO 07/08/21 21:00 08/04/21 08:13 Magnesium Hydroxide (Milk Of Magnesia) 2,400 mg PRN QHS PRN PO 2nd CHOICE CONSTIPATION 07/08/21 19:30 Cancel Phenytoin Sodium (Dilantin) 200 mg HS PO 07/12/21 21:00 08/03/21 20:23 Phenytoin Sodium (Dilantin) 100 mg DAILY PO 07/12/21 09:00 08/04/21 08:14 Carvedilol (Coreg) 6.25 mg BIDWMEALS PO 07/25/21 18:00 07/25/21 18:07 DC Carvedilol (Coreg) 6.25 mg BIDWMEALS PO 07/26/21 08:00 08/02/21 09:02 DC 08/02/21 08:33 Mirtazapine (Remeron) 15 mg QHS PO 07/29/21 21:00 08/03/21 20:23 Carvedilol (Coreg) 12.5 mg BIDWMEALS PO 08/02/21 17:00 08/04/21 08:12 Albuterol Sulfate (Ventolin Hfa Inhaler) 2 puff PRN Q4HRS PRN INH SHORTNESS OF BREATH 08/02/21 09:15 I have reviewed the current psychotropics carefully including drug interactions. Risk benefit ratio favors no change other than as noted in my dictated progress note. 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
[2021-08-04 16:06] VITALS: BP 126/60
[2021-08-04] MEDS: DULoxetine HCL 30 MG CAPSULE.DR PO SCH (20:06)
[2021-08-04] MEDS: DULoxetine HCL 20 MG CAPSULE.DR PO SCH (20:06)
[2021-08-04] MEDS: MIRTAZAPINE 15 MG TABLET PO SCH (20:07)
[2021-08-04] MEDS: ATORVASTATIN CALCIUM 10 MG TABLET. PO SCH (20:07)
--- NOTE | 2021-08-04 21:55 | NUR ---
Pt sitting in hallway interacting with peers tonight. Pt singing and yodeling at times. Compliant with whole medications.
--- NOTE | 2021-08-04 22:05 | PDOC ---
Exam Note: Leo Note: Please also refer to the separate dictated note~for this date of service dictated separately.~Patient seen individually. Discussed the patient with Nursing staff reviewed the chart.~Reviewed interim history and current functioning. Reviewed vital signs,~Labs/ Radiology~and current medications noted below. Continue current treatment with the changes noted in the dictated addendum note Assessment: Vital Signs/I&O: Vital Signs Date Time Temp Pulse Resp B/P (MAP) Pulse Ox O2 Delivery O2 Flow Rate FiO2 08/04/21 17:15 71 126/60 08/04/21 16:06 97.9 18 96 07/31/21 05:25 Room Air I & O 08/03/21 08/03/21 08/04/21 15:00 23:00 07:00 Intake Total 1200 ml 840 ml Balance 1200 ml 840 ml Labs: Laboratory Tests Test 08/04/21 07:31 Glucose (Fingerstick) 134 mg/dL (70-99) H Current Medications: Meds: Laboratory Tests Test 08/04/21 07:31 Glucose (Fingerstick) 134 mg/dL Current Medications Medications (Trade) Dose Ordered Sig/Aparna Route PRN Reason Start Time Stop Time Status Last Admin Dose Admin Acetaminophen (Tylenol) 650 mg PRN Q6HRS PRN PO MILD PAIN / TEMP > 100.3'F 07/06/21 00:30 Cancel Multi-Ingredient Ointment (Analgesic [place]) 1 inna PRN QID PRN TP MUSCLE PAIN 07/06/21 00:30 08/01/21 20:19 Al Hydroxide/Mg Hydroxide (Mylanta Plus Xs) 15 ml PRN AFTMEALHC PRN PO DYSPEPSIA 07/06/21 00:30 Magnesium Hydroxide (Milk Of Magnesia) 2,400 mg PRN QHS PRN PO 2ND CHOICE CONSTIPATION 07/06/21 00:30 07/14/21 08:13 Duloxetine HCl (Cymbalta) 20 mg HS PO 07/06/21 21:00 08/04/21 20:06 Duloxetine HCl (Cymbalta) 30 mg HS PO 07/06/21 21:00 08/04/21 20:06 Mirtazapine (Remeron) 7.5 mg HS PO 07/06/21 21:00 07/29/21 18:15 DC 07/28/21 20:09 Olanzapine (ZyPREXA ZYDIS) 2.5 mg PRN Q2HR PRN PO ANXIETY / AGITATION 07/06/21 01:15 08/02/21 23:39 Trazodone HCl (Desyrel) 50 mg PRN QHS PRN PO INSOMNIA 07/06/21 01:15 07/25/21 20:56 Acetaminophen (Tylenol) 650 mg PRN Q4HRS PRN PO PAIN 07/06/21 10:30 08/01/21 20:19 Aspirin (Aspirin Enteric Coated) 81 mg DAILY PO 07/07/21 09:00 08/04/21 08:13 Atorvastatin Calcium (Lipitor) 10 mg QHS PO 07/06/21 21:00 08/04/21 20:07 Carvedilol (Coreg) 3.125 mg BIDWMEALS PO 07/06/21 17:00 07/25/21 17:52 DC 07/25/21 17:22 Gabapentin (Neurontin) 300 mg BID PO 07/06/21 21:00 08/04/21 20:06 Metformin HCl (Glucophage Xr) 500 mg DAILYWBKFT PO 07/07/21 08:00 08/04/21 08:11 Multi-Ingredient Ointment (Analgesic [place]) 1 inna PRN QID PRN TP PAIN 07/06/21 10:30 UNV Phenytoin Sodium (Dilantin) 500 mg HS PO 07/06/21 21:00 07/07/21 22:27 DC 07/07/21 20:05 Tamsulosin HCl (Flomax) 0.4 mg DAILY PO 07/07/21 09:00 08/04/21 08:13 Polyethylene Glycol (miraLAX) 17 gm PRN DAILY PRN PO 1ST CHOICE CONSTIPATION 07/06/21 10:45 Non-Formulary Medication (Pravastatin Sodium ) 40 mg DAILY PO 07/07/21 09:00 UNV Phenyleph/Shark Oil/Min Oil/Petrol (Preparation H) 1 inna PRN QID PRN RC RECTAL PAIN 07/06/21 15:15 Phenytoin Sodium (Dilantin) 400 mg HS PO 07/08/21 21:00 07/11/21 23:36 DC 07/11/21 20:35 Albuterol/ Ipratropium (Combivent Respimat 20-100 Mcg) 1 puff QID INH 07/08/21 13:00 08/04/21 20:06 Docusate Sodium (Colace) 100 mg DAILY PO 07/09/21 09:00 08/04/21 08:13 Guaifenesin (Mucinex Er) 600 mg BID PO 07/08/21 21:00 08/04/21 20:06 Magnesium Hydroxide (Milk Of Magnesia) 2,400 mg PRN QHS PRN PO 2nd CHOICE CONSTIPATION 07/08/21 19:30 Cancel Phenytoin Sodium (Dilantin) 200 mg HS PO 07/12/21 21:00 08/04/21 20:06 Phenytoin Sodium (Dilantin) 100 mg DAILY PO 07/12/21 09:00 08/04/21 08:14 Carvedilol (Coreg) 6.25 mg BIDWMEALS PO 07/25/21 18:00 07/25/21 18:07 DC Carvedilol (Coreg) 6.25 mg BIDWMEALS PO 07/26/21 08:00 08/02/21 09:02 DC 08/02/21 08:33 Mirtazapine (Remeron) 15 mg QHS PO 07/29/21 21:00 08/04/21 20:07 Carvedilol (Coreg) 12.5 mg BIDWMEALS PO 08/02/21 17:00 08/04/21 17:15 Albuterol Sulfate (Ventolin Hfa Inhaler) 2 puff PRN Q4HRS PRN INH SHORTNESS OF BREATH 08/02/21 09:15 I have reviewed the current psychotropics carefully including drug interactions. Risk benefit ratio favors no change other than as noted in my dictated progress note. 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
[2021-08-05] MEDS: traZODone 50 MG TABLET. PO PRN (01:04)
[2021-08-05 05:56] VITALS: BP 116/67
[2021-08-05] MEDS: metFORMIN XR 500 MG TAB.ER.24H PO SCH (08:12)
[2021-08-05] MEDS: CARVEDILOL 12.5 MG TABLET PO SCH ×2 (08:12→17:14)
[2021-08-05] MEDS: ASPIRIN ENTERIC COATED 81 MG TABLET.DR. PO SCH (08:12)
[2021-08-05] MEDS: GABAPENTIN 300 MG CAPSULE. PO SCH ×2 (08:12→21:02)
[2021-08-05] MEDS: PHENYTOIN SODIUM EXTENDED 100 MG CAPSULE PO SCH ×2 (08:13→21:03)
[2021-08-05] MEDS: IPRATROPIUM/ALBUTEROL 20/100mcg/INH INHALER. INH SCH ×4 (08:13→21:06)
[2021-08-05] MEDS: TAMSULOSIN 0.4 MG CAP.ER.24H. PO SCH (08:13)
[2021-08-05] MEDS: DOCUSATE SODIUM 100 MG CAPSULE PO SCH (08:13)
--- NOTE | 2021-08-05 08:24 | PDOC ---
Exam Note: Leo Note: This note is a late entry for 08/03/2021 covers elements not covered in my initial note. Subjective: The patient was seen individually in the evening of 08/03/2021 with Tenisha KOWALSKI, discussed and reviewed the chart. The patient slept 4 hours previous night. He did reasonably well during the day but upset in the evening being given a shower. He has had some wheezing but nursing staff feel this is consequent to anxiety, seems to improve after an anti-anxiety intervention. Review of Systems: Ambulation impaired in wheelchair. She has difficulty with breathing. No CV, , eye, ENT system symptoms on review. Mental Status Exam: The patient is oriented to himself and situation. Speech coherent. Abstraction fair. Computation impaired. Language function intact. Mood and affect improved. Laboratory Data: Reviewed. Impression: Major depressive disorder, recurrent. Major neurocognitive disorder, Alzheimer, vascular with delusion, depression, behavioral disturbance. Anxiety disorder unspecified. Impulse control disorder unspecified. Plan: Continue psychotropics from initial note. Assessment: Vital Signs/I&O: Vital Signs Date Time Temp Pulse Resp B/P (MAP) Pulse Ox O2 Delivery O2 Flow Rate FiO2 08/05/21 08:12 70 116/67 08/05/21 05:56 96.4 17 97 07/31/21 05:25 Room Air I & O 08/04/21 08/04/21 08/05/21 15:00 23:00 07:00 Intake Total 1320 ml 720 ml Balance 1320 ml 720 ml Labs: Laboratory Tests Test 08/05/21 07:38 Glucose (Fingerstick) 137 mg/dL (70-99) H Current Medications: Meds: Laboratory Tests Test 08/05/21 07:38 Glucose (Fingerstick) 137 mg/dL Current Medications Medications (Trade) Dose Ordered Sig/Aparna Route PRN Reason Start Time Stop Time Status Last Admin Dose Admin Acetaminophen (Tylenol) 650 mg PRN Q6HRS PRN PO MILD PAIN / TEMP > 100.3'F 07/06/21 00:30 Cancel Multi-Ingredient Ointment (Analgesic [place]) 1 inna PRN QID PRN TP MUSCLE PAIN 07/06/21 00:30 08/01/21 20:19 Al Hydroxide/Mg Hydroxide (Mylanta Plus Xs) 15 ml PRN AFTMEALHC PRN PO DYSPEPSIA 07/06/21 00:30 Magnesium Hydroxide (Milk Of Magnesia) 2,400 mg PRN QHS PRN PO 2ND CHOICE CONSTIPATION 07/06/21 00:30 07/14/21 08:13 Duloxetine HCl (Cymbalta) 20 mg HS PO 07/06/21 21:00 08/04/21 20:06 Duloxetine HCl (Cymbalta) 30 mg HS PO 07/06/21 21:00 08/04/21 20:06 Mirtazapine (Remeron) 7.5 mg HS PO 07/06/21 21:00 07/29/21 18:15 DC 07/28/21 20:09 Olanzapine (ZyPREXA ZYDIS) 2.5 mg PRN Q2HR PRN PO ANXIETY / AGITATION 07/06/21 01:15 08/02/21 23:39 Trazodone HCl (Desyrel) 50 mg PRN QHS PRN PO INSOMNIA 07/06/21 01:15 08/05/21 01:04 Acetaminophen (Tylenol) 650 mg PRN Q4HRS PRN PO PAIN 07/06/21 10:30 08/01/21 20:19 Aspirin (Aspirin Enteric Coated) 81 mg DAILY PO 07/07/21 09:00 08/05/21 08:12 Atorvastatin Calcium (Lipitor) 10 mg QHS PO 07/06/21 21:00 08/04/21 20:07 Carvedilol (Coreg) 3.125 mg BIDWMEALS PO 07/06/21 17:00 07/25/21 17:52 DC 07/25/21 17:22 Gabapentin (Neurontin) 300 mg BID PO 07/06/21 21:00 08/05/21 08:12 Metformin HCl (Glucophage Xr) 500 mg DAILYWBKFT PO 07/07/21 08:00 08/05/21 08:12 Multi-Ingredient Ointment (Analgesic [place]) 1 inna PRN QID PRN TP PAIN 07/06/21 10:30 UNV Phenytoin Sodium (Dilantin) 500 mg HS PO 07/06/21 21:00 07/07/21 22:27 DC 07/07/21 20:05 Tamsulosin HCl (Flomax) 0.4 mg DAILY PO 07/07/21 09:00 08/05/21 08:13 Polyethylene Glycol (miraLAX) 17 gm PRN DAILY PRN PO 1ST CHOICE CONSTIPATION 07/06/21 10:45 Non-Formulary Medication (Pravastatin Sodium ) 40 mg DAILY PO 07/07/21 09:00 UNV Phenyleph/Shark Oil/Min Oil/Petrol (Preparation H) 1 inna PRN QID PRN RC RECTAL PAIN 07/06/21 15:15 Phenytoin Sodium (Dilantin) 400 mg HS PO 07/08/21 21:00 07/11/21 23:36 DC 07/11/21 20:35 Albuterol/ Ipratropium (Combivent Respimat 20-100 Mcg) 1 puff QID INH 07/08/21 13:00 08/05/21 08:13 Docusate Sodium (Colace) 100 mg DAILY PO 07/09/21 09:00 08/05/21 08:13 Guaifenesin (Mucinex Er) 600 mg BID PO 07/08/21 21:00 08/05/21 08:13 Magnesium Hydroxide (Milk Of Magnesia) 2,400 mg PRN QHS PRN PO 2nd CHOICE CONSTIPATION 07/08/21 19:30 Cancel Phenytoin Sodium (Dilantin) 200 mg HS PO 07/12/21 21:00 08/04/21 20:06 Phenytoin Sodium (Dilantin) 100 mg DAILY PO 07/12/21 09:00 08/05/21 08:13 Carvedilol (Coreg) 6.25 mg BIDWMEALS PO 07/25/21 18:00 07/25/21 18:07 DC Carvedilol (Coreg) 6.25 mg BIDWMEALS PO 07/26/21 08:00 08/02/21 09:02 DC 08/02/21 08:33 Mirtazapine (Remeron) 15 mg QHS PO 07/29/21 21:00 08/04/21 20:07 Carvedilol (Coreg) 12.5 mg BIDWMEALS PO 08/02/21 17:00 08/05/21 08:12 Albuterol Sulfate (Ventolin Hfa Inhaler) 2 puff PRN Q4HRS PRN INH SHORTNESS OF BREATH 08/02/21 09:15 I have reviewed the current psychotropics carefully including drug interactions. Risk benefit ratio favors no change other than as noted in my dictated progress note. 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
--- NOTE | 2021-08-05 08:39 | PDOC ---
Exam Note: Leo Note: This note is a late entry for 08/04/2021 covers elements not covered in my initial note. Subjective: The patient was seen individually in the evening of 08/04/2021 with Tenisha KOWALSKI, discussed and reviewed the chart. The patient slept 3 hours previous night. I met with the patient again in the hallways, quite i nteractive, less anxious little irritable at times. Review of Systems: Ambulation impaired in wheelchair. No coughing today. No CV, , ENT system symptoms on review. Mental Status Exam: The patient is oriented to himself and situation. Speech coherent. Abstraction fair. Computation impaired. Language function intact. Mood and affect improved. Laboratory Data: Reviewed. Impression: Major depressive disorder, recurrent. Major neurocognitive disorder, Alzheimer, vascular with delusion, depression, behavioral disturbance. Anxiety disorder unspecified. Impulse control disorder unspecified. Plan: Continue psychotropics from initial note. Assessment: Vital Signs/I&O: Vital Signs Date Time Temp Pulse Resp B/P (MAP) Pulse Ox O2 Delivery O2 Flow Rate FiO2 08/05/21 08:12 70 116/67 08/05/21 05:56 96.4 17 97 07/31/21 05:25 Room Air I & O 08/04/21 08/04/21 08/05/21 15:00 23:00 07:00 Intake Total 1320 ml 720 ml Balance 1320 ml 720 ml Labs: Laboratory Tests Test 08/05/21 07:38 Glucose (Fingerstick) 137 mg/dL (70-99) H Current Medications: Meds: Laboratory Tests Test 08/05/21 07:38 Glucose (Fingerstick) 137 mg/dL Current Medications Medications (Trade) Dose Ordered Sig/Aparna Route PRN Reason Start Time Stop Time Status Last Admin Dose Admin Acetaminophen (Tylenol) 650 mg PRN Q6HRS PRN PO MILD PAIN / TEMP > 100.3'F 07/06/21 00:30 Cancel Multi-Ingredient Ointment (Analgesic [place]) 1 inna PRN QID PRN TP MUSCLE PAIN 07/06/21 00:30 08/01/21 20:19 Al Hydroxide/Mg Hydroxide (Mylanta Plus Xs) 15 ml PRN AFTMEALHC PRN PO DYSPEPSIA 07/06/21 00:30 Magnesium Hydroxide (Milk Of Magnesia) 2,400 mg PRN QHS PRN PO 2ND CHOICE CONSTIPATION 07/06/21 00:30 07/14/21 08:13 Duloxetine HCl (Cymbalta) 20 mg HS PO 07/06/21 21:00 08/04/21 20:06 Duloxetine HCl (Cymbalta) 30 mg HS PO 07/06/21 21:00 08/04/21 20:06 Mirtazapine (Remeron) 7.5 mg HS PO 07/06/21 21:00 07/29/21 18:15 DC 07/28/21 20:09 Olanzapine (ZyPREXA ZYDIS) 2.5 mg PRN Q2HR PRN PO ANXIETY / AGITATION 07/06/21 01:15 08/02/21 23:39 Trazodone HCl (Desyrel) 50 mg PRN QHS PRN PO INSOMNIA 07/06/21 01:15 08/05/21 01:04 Acetaminophen (Tylenol) 650 mg PRN Q4HRS PRN PO PAIN 07/06/21 10:30 08/01/21 20:19 Aspirin (Aspirin Enteric Coated) 81 mg DAILY PO 07/07/21 09:00 08/05/21 08:12 Atorvastatin Calcium (Lipitor) 10 mg QHS PO 07/06/21 21:00 08/04/21 20:07 Carvedilol (Coreg) 3.125 mg BIDWMEALS PO 07/06/21 17:00 07/25/21 17:52 DC 07/25/21 17:22 Gabapentin (Neurontin) 300 mg BID PO 07/06/21 21:00 08/05/21 08:12 Metformin HCl (Glucophage Xr) 500 mg DAILYWBKFT PO 07/07/21 08:00 08/05/21 08:12 Multi-Ingredient Ointment (Analgesic [place]) 1 inna PRN QID PRN TP PAIN 07/06/21 10:30 UNV Phenytoin Sodium (Dilantin) 500 mg HS PO 07/06/21 21:00 07/07/21 22:27 DC 07/07/21 20:05 Tamsulosin HCl (Flomax) 0.4 mg DAILY PO 07/07/21 09:00 08/05/21 08:13 Polyethylene Glycol (miraLAX) 17 gm PRN DAILY PRN PO 1ST CHOICE CONSTIPATION 07/06/21 10:45 Non-Formulary Medication (Pravastatin Sodium ) 40 mg DAILY PO 07/07/21 09:00 UNV Phenyleph/Shark Oil/Min Oil/Petrol (Preparation H) 1 inna PRN QID PRN RC RECTAL PAIN 07/06/21 15:15 Phenytoin Sodium (Dilantin) 400 mg HS PO 07/08/21 21:00 07/11/21 23:36 DC 07/11/21 20:35 Albuterol/ Ipratropium (Combivent Respimat 20-100 Mcg) 1 puff QID INH 07/08/21 13:00 08/05/21 08:13 Docusate Sodium (Colace) 100 mg DAILY PO 07/09/21 09:00 08/05/21 08:13 Guaifenesin (Mucinex Er) 600 mg BID PO 07/08/21 21:00 08/05/21 08:13 Magnesium Hydroxide (Milk Of Magnesia) 2,400 mg PRN QHS PRN PO 2nd CHOICE CONSTIPATION 07/08/21 19:30 Cancel Phenytoin Sodium (Dilantin) 200 mg HS PO 07/12/21 21:00 08/04/21 20:06 Phenytoin Sodium (Dilantin) 100 mg DAILY PO 07/12/21 09:00 08/05/21 08:13 Carvedilol (Coreg) 6.25 mg BIDWMEALS PO 07/25/21 18:00 07/25/21 18:07 DC Carvedilol (Coreg) 6.25 mg BIDWMEALS PO 07/26/21 08:00 08/02/21 09:02 DC 08/02/21 08:33 Mirtazapine (Remeron) 15 mg QHS PO 07/29/21 21:00 08/04/21 20:07 Carvedilol (Coreg) 12.5 mg BIDWMEALS PO 08/02/21 17:00 08/05/21 08:12 Albuterol Sulfate (Ventolin Hfa Inhaler) 2 puff PRN Q4HRS PRN INH SHORTNESS OF BREATH 08/02/21 09:15 I have reviewed the current psychotropics carefully including drug interactions. Risk benefit ratio favors no change other than as noted in my dictated progress note. 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
[2021-08-05] MEDS: ALBUTEROL SULFATE 8GM INHALER. INH PRN ×2 (08:41→21:04)
--- NOTE | 2021-08-05 10:40 | NUR ---
ARI spoke with Sabine, admissions at [facility], who reports that they are on board to take pt. They have yet to hear from the family on financials and questioned pt Covid status. RAI informed them that pt had received the Samuel and Samuel shot; however, ARI does not have his card and would have to dig further about this. ARI will also contact Maikel to inform him that placement has been found but they will have to call [facility] to make those arrangements in order to get pt moved.
--- NOTE | 2021-08-05 11:02 | NUR ---
Nursing note: Pt in dining room at time of AM med pass and assessment. He is pleasant, med compliant and cooperative. He has no complaints/concerns at time of assessment. He is currently sitting quietly in his room. Will continue to monitor.
--- NOTE | 2021-08-05 13:53 | NUR ---
WEEKLY ACTIVITY THERAPY NOTE Date of Admission: 07/06/21 Date of AT Assessment: 07/08 Precipitating behaviors that initiated intake and admission:Patient was reported to believe that his money was being stolen, his dog was being murdered, trying to leave the facility, disoriented, being tearful and crying frequently, and having sexually inappropriate conversations with other residents Goal aimed:increase socialization and engagement Initial Goal: Pt will participate in at least three individual or group Activity Therapy sessions per week. Goal changed 07/21:Pt will participate in at least five individual or group Activity Therapy sessions per week. Weekly progress towards goal: did not achieve, 0/5 Group participation level: none Weekly highlights: no participation Behaviors observed: withdrawn to room, sleeping Plan: no change to goal Beneficial adaptations: positive response to music groups
--- NOTE | 2021-08-05 15:24 | NUR ---
Treatment team update: Pt is eating 100% of meals and sleeping on average 3.5 hours per night. Pt is attention seeking and social at times. The last few night, pt has not been sleeping and appears to be irritable. Pt has received Trazodone for sleep last night; however, it did not seem to help. Pt will start Melatonin 3mg at HS and continued the PRN Trazodone order. Pt has been accepted to [facility]; no word from the family has been received. ARI will continue to work on pt discharge plan; ALISON DAVIS.
[2021-08-05 15:49] VITALS: BP 101/62
[2021-08-05] MEDS: MELATONIN 3 MG TABLET PO SCH (21:02)
[2021-08-05] MEDS: ATORVASTATIN CALCIUM 10 MG TABLET. PO SCH (21:02)
[2021-08-05] MEDS: DULoxetine HCL 20 MG CAPSULE.DR PO SCH (21:02)
[2021-08-05] MEDS: MIRTAZAPINE 15 MG TABLET PO SCH (21:02)
[2021-08-05] MEDS: DULoxetine HCL 30 MG CAPSULE.DR PO SCH (21:02)
--- NOTE | 2021-08-05 22:12 | PDOC ---
Exam Note: Leo Note: Please also refer to the separate dictated note~for this date of service dictated separately.~Patient seen individually. Discussed the patient with Nursing staff reviewed the chart.~Reviewed interim history and current functioning. Reviewed vital signs,~Labs/ Radiology~and current medications noted below. Continue current treatment with the changes noted in the dictated addendum note Assessment: Vital Signs/I&O: Vital Signs Date Time Temp Pulse Resp B/P (MAP) Pulse Ox O2 Delivery O2 Flow Rate FiO2 08/05/21 17:14 80 101/62 08/05/21 15:49 98.3 20 96 07/31/21 05:25 Room Air I & O 08/04/21 08/04/21 08/05/21 15:00 23:00 07:00 Intake Total 1320 ml 720 ml Balance 1320 ml 720 ml Labs: Laboratory Tests Test 08/05/21 07:38 Glucose (Fingerstick) 137 mg/dL (70-99) H Current Medications: Meds: Laboratory Tests Test 08/05/21 07:38 Glucose (Fingerstick) 137 mg/dL Current Medications Medications (Trade) Dose Ordered Sig/Aparna Route PRN Reason Start Time Stop Time Status Last Admin Dose Admin Acetaminophen (Tylenol) 650 mg PRN Q6HRS PRN PO MILD PAIN / TEMP > 100.3'F 07/06/21 00:30 Cancel Multi-Ingredient Ointment (Analgesic [place]) 1 inna PRN QID PRN TP MUSCLE PAIN 07/06/21 00:30 08/01/21 20:19 Al Hydroxide/Mg Hydroxide (Mylanta Plus Xs) 15 ml PRN AFTMEALHC PRN PO DYSPEPSIA 07/06/21 00:30 Magnesium Hydroxide (Milk Of Magnesia) 2,400 mg PRN QHS PRN PO 2ND CHOICE CONSTIPATION 07/06/21 00:30 07/14/21 08:13 Duloxetine HCl (Cymbalta) 20 mg HS PO 07/06/21 21:00 08/05/21 21:02 Duloxetine HCl (Cymbalta) 30 mg HS PO 07/06/21 21:00 08/05/21 21:02 Mirtazapine (Remeron) 7.5 mg HS PO 07/06/21 21:00 07/29/21 18:15 DC 07/28/21 20:09 Olanzapine (ZyPREXA ZYDIS) 2.5 mg PRN Q2HR PRN PO ANXIETY / AGITATION 07/06/21 01:15 08/02/21 23:39 Trazodone HCl (Desyrel) 50 mg PRN QHS PRN PO INSOMNIA 07/06/21 01:15 08/05/21 01:04 Acetaminophen (Tylenol) 650 mg PRN Q4HRS PRN PO PAIN 07/06/21 10:30 08/01/21 20:19 Aspirin (Aspirin Enteric Coated) 81 mg DAILY PO 07/07/21 09:00 08/05/21 08:12 Atorvastatin Calcium (Lipitor) 10 mg QHS PO 07/06/21 21:00 08/05/21 21:02 Carvedilol (Coreg) 3.125 mg BIDWMEALS PO 07/06/21 17:00 07/25/21 17:52 DC 07/25/21 17:22 Gabapentin (Neurontin) 300 mg BID PO 07/06/21 21:00 08/05/21 21:02 Metformin HCl (Glucophage Xr) 500 mg DAILYWBKFT PO 07/07/21 08:00 08/05/21 08:12 Multi-Ingredient Ointment (Analgesic [place]) 1 inna PRN QID PRN TP PAIN 07/06/21 10:30 UNV Phenytoin Sodium (Dilantin) 500 mg HS PO 07/06/21 21:00 07/07/21 22:27 DC 07/07/21 20:05 Tamsulosin HCl (Flomax) 0.4 mg DAILY PO 07/07/21 09:00 08/05/21 08:13 Polyethylene Glycol (miraLAX) 17 gm PRN DAILY PRN PO 1ST CHOICE CONSTIPATION 07/06/21 10:45 Non-Formulary Medication (Pravastatin Sodium ) 40 mg DAILY PO 07/07/21 09:00 UNV Phenyleph/Shark Oil/Min Oil/Petrol (Preparation H) 1 inna PRN QID PRN RC RECTAL PAIN 07/06/21 15:15 Phenytoin Sodium (Dilantin) 400 mg HS PO 07/08/21 21:00 07/11/21 23:36 DC 07/11/21 20:35 Albuterol/ Ipratropium (Combivent Respimat 20-100 Mcg) 1 puff QID INH 07/08/21 13:00 08/05/21 21:06 Docusate Sodium (Colace) 100 mg DAILY PO 07/09/21 09:00 08/05/21 08:13 Guaifenesin (Mucinex Er) 600 mg BID PO 07/08/21 21:00 08/05/21 21:02 Magnesium Hydroxide (Milk Of Magnesia) 2,400 mg PRN QHS PRN PO 2nd CHOICE CONSTIPATION 07/08/21 19:30 Cancel Phenytoin Sodium (Dilantin) 200 mg HS PO 07/12/21 21:00 08/05/21 21:03 Phenytoin Sodium (Dilantin) 100 mg DAILY PO 07/12/21 09:00 08/05/21 08:13 Carvedilol (Coreg) 6.25 mg BIDWMEALS PO 07/25/21 18:00 07/25/21 18:07 DC Carvedilol (Coreg) 6.25 mg BIDWMEALS PO 07/26/21 08:00 08/02/21 09:02 DC 08/02/21 08:33 Mirtazapine (Remeron) 15 mg QHS PO 07/29/21 21:00 08/05/21 21:02 Carvedilol (Coreg) 12.5 mg BIDWMEALS PO 08/02/21 17:00 08/05/21 17:14 Albuterol Sulfate (Ventolin Hfa Inhaler) 2 puff PRN Q4HRS PRN INH SHORTNESS OF BREATH 08/02/21 09:15 08/05/21 21:04 Melatonin (Melatonin) 3 mg QHS PO 08/05/21 21:00 08/05/21 21:02 Current Medications Medications (Trade) Dose Ordered Sig/Aparna Route PRN Reason Start Time Stop Time Status Last Admin Dose Admin Melatonin (Melatonin) 3 mg QHS PO 08/05/21 21:00 08/05/21 21:02 I have reviewed the current psychotropics carefully including drug interactions. Risk benefit ratio favors no change other than as noted in my dictated progress note. 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
--- NOTE | 2021-08-05 23:52 | NUR ---
Nursing Note Pt in the hallway singing and being social with peers. Med compliant and cooperative. Lungs are coarse with crackles, loud coughing noted he sounds like he should be having sputum but must be swallowing it. Now resting in bed.
[2021-08-06 06:02] VITALS: BP 169/82
[2021-08-06] MEDS: metFORMIN XR 500 MG TAB.ER.24H PO SCH (08:11)
[2021-08-06] MEDS: ASPIRIN ENTERIC COATED 81 MG TABLET.DR. PO SCH (08:11)
[2021-08-06] MEDS: DOCUSATE SODIUM 100 MG CAPSULE PO SCH (08:11)
[2021-08-06] MEDS: PHENYTOIN SODIUM EXTENDED 100 MG CAPSULE PO SCH ×2 (08:11→19:40)
[2021-08-06] MEDS: TAMSULOSIN 0.4 MG CAP.ER.24H. PO SCH (08:12)
[2021-08-06] MEDS: GABAPENTIN 300 MG CAPSULE. PO SCH ×2 (08:12→19:40)
[2021-08-06] MEDS: ALBUTEROL SULFATE 8GM INHALER. INH PRN (08:12)
[2021-08-06] MEDS: CARVEDILOL 12.5 MG TABLET PO SCH ×2 (08:12→17:34)
[2021-08-06] MEDS: IPRATROPIUM/ALBUTEROL 20/100mcg/INH INHALER. INH SCH ×4 (08:13→19:37)
--- NOTE | 2021-08-06 08:24 | PDOC ---
Exam Note: Leo Note: This note is a late entry for 08/05/2021 covers elements not covered in my initial note. Subjective: The patient was reviewed at treatment team meeting individually in the morning on 08/05/2021 with Jennifer Vizcarra, Riri Heck (social work associate), Jennifer, activity therapy and Gogo KOWALSKI, discussed and reviewed the chart. The patient slept 2 hours previous night. Average sleep 3-1/2 hours. Appetite 100%. He did receive trazodone at 1 a.m. last evening. He has been irritable during shower times. He has attended no groups. [facility] per social service report and we will consider transition this week. Also discussed with Jeanne KOWALSKI in the evening. He has had some cough reflective of his COPD. Review of Systems: Ambulation impaired in wheelchair. No CV, , eye, system symptoms on review. He does complain of some coughing intermittently. Mental Status Exam: The patient is oriented to himself. 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 Abstraction fair. Computation impaired. Language function intact. Attention span short. Mood and affect remains somewhat anxious and labile. Laboratory Data: Reviewed. Impression: Major depressive disorder, recurrent. Major neurocognitive disorder, Alzheimer, vascular with delusion, depression, behavioral disturbance. Anxiety disorder unspecified. Impulse control disorder unspecified. Plan: Continue psychotropics from initial note. Assessment: Vital Signs/I&O: Vital Signs Date Time Temp Pulse Resp B/P (MAP) Pulse Ox O2 Delivery O2 Flow Rate FiO2 08/06/21 08:12 73 169/82 08/06/21 06:02 97.4 22 94 I & O 08/05/21 08/05/21 08/06/21 15:00 23:00 07:00 Intake Total 1440 ml 600 ml Balance 1440 ml 600 ml Labs: Laboratory Tests Test 08/06/21 07:54 Glucose (Fingerstick) 144 mg/dL (70-99) H Current Medications: Meds: Laboratory Tests Test 08/06/21 07:54 Glucose (Fingerstick) 144 mg/dL Current Medications Medications (Trade) Dose Ordered Sig/Aparna Route PRN Reason Start Time Stop Time Status Last Admin Dose Admin Acetaminophen (Tylenol) 650 mg PRN Q6HRS PRN PO MILD PAIN / TEMP > 100.3'F 07/06/21 00:30 Cancel Multi-Ingredient Ointment (Analgesic [place]) 1 inna PRN QID PRN TP MUSCLE PAIN 07/06/21 00:30 08/01/21 20:19 Al Hydroxide/Mg Hydroxide (Mylanta Plus Xs) 15 ml PRN AFTMEALHC PRN PO DYSPEPSIA 07/06/21 00:30 Magnesium Hydroxide (Milk Of Magnesia) 2,400 mg PRN QHS PRN PO 2ND CHOICE CONSTIPATION 07/06/21 00:30 07/14/21 08:13 Duloxetine HCl (Cymbalta) 20 mg HS PO 07/06/21 21:00 08/05/21 21:02 Duloxetine HCl (Cymbalta) 30 mg HS PO 07/06/21 21:00 08/05/21 21:02 Mirtazapine (Remeron) 7.5 mg HS PO 07/06/21 21:00 07/29/21 18:15 DC 07/28/21 20:09 Olanzapine (ZyPREXA ZYDIS) 2.5 mg PRN Q2HR PRN PO ANXIETY / AGITATION 07/06/21 01:15 08/02/21 23:39 Trazodone HCl (Desyrel) 50 mg PRN QHS PRN PO INSOMNIA 07/06/21 01:15 08/05/21 01:04 Acetaminophen (Tylenol) 650 mg PRN Q4HRS PRN PO PAIN 07/06/21 10:30 08/01/21 20:19 Aspirin (Aspirin Enteric Coated) 81 mg DAILY PO 07/07/21 09:00 08/06/21 08:11 Atorvastatin Calcium (Lipitor) 10 mg QHS PO 07/06/21 21:00 08/05/21 21:02 Carvedilol (Coreg) 3.125 mg BIDWMEALS PO 07/06/21 17:00 07/25/21 17:52 DC 07/25/21 17:22 Gabapentin (Neurontin) 300 mg BID PO 07/06/21 21:00 08/06/21 08:12 Metformin HCl (Glucophage Xr) 500 mg DAILYWBKFT PO 07/07/21 08:00 08/06/21 08:11 Multi-Ingredient Ointment (Analgesic [place]) 1 inna PRN QID PRN TP PAIN 07/06/21 10:30 UNV Phenytoin Sodium (Dilantin) 500 mg HS PO 07/06/21 21:00 07/07/21 22:27 DC 07/07/21 20:05 Tamsulosin HCl (Flomax) 0.4 mg DAILY PO 07/07/21 09:00 08/06/21 08:12 Polyethylene Glycol (miraLAX) 17 gm PRN DAILY PRN PO 1ST CHOICE CONSTIPATION 07/06/21 10:45 Non-Formulary Medication (Pravastatin Sodium ) 40 mg DAILY PO 07/07/21 09:00 UNV Phenyleph/Shark Oil/Min Oil/Petrol (Preparation H) 1 inna PRN QID PRN RC RECTAL PAIN 07/06/21 15:15 Phenytoin Sodium (Dilantin) 400 mg HS PO 07/08/21 21:00 07/11/21 23:36 DC 07/11/21 20:35 Albuterol/ Ipratropium (Combivent Respimat 20-100 Mcg) 1 puff QID INH 07/08/21 13:00 08/06/21 08:13 Docusate Sodium (Colace) 100 mg DAILY PO 07/09/21 09:00 08/06/21 08:11 Guaifenesin (Mucinex Er) 600 mg BID PO 07/08/21 21:00 08/06/21 08:12 Magnesium Hydroxide (Milk Of Magnesia) 2,400 mg PRN QHS PRN PO 2nd CHOICE CONSTIPATION 07/08/21 19:30 Cancel Phenytoin Sodium (Dilantin) 200 mg HS PO 07/12/21 21:00 08/05/21 21:03 Phenytoin Sodium (Dilantin) 100 mg DAILY PO 07/12/21 09:00 08/06/21 08:11 Carvedilol (Coreg) 6.25 mg BIDWMEALS PO 07/25/21 18:00 07/25/21 18:07 DC Carvedilol (Coreg) 6.25 mg BIDWMEALS PO 07/26/21 08:00 08/02/21 09:02 DC 08/02/21 08:33 Mirtazapine (Remeron) 15 mg QHS PO 07/29/21 21:00 9/7/21 21:02 Carvedilol (Coreg) 12.5 mg BIDWMEALS PO 08/02/21 17:00 08/06/21 08:12 Albuterol Sulfate (Ventolin Hfa Inhaler) 2 puff PRN Q4HRS PRN INH SHORTNESS OF BREATH 08/02/21 09:15 08/06/21 08:12 Melatonin (Melatonin) 3 mg QHS PO 08/05/21 21:00 08/05/21 21:02 Current Medications Medications (Trade) Dose Ordered Sig/Aparna Route PRN Reason Start Time Stop Time Status Last Admin Dose Admin Melatonin (Melatonin) 3 mg QHS PO 08/05/21 21:00 08/05/21 21:02 I have reviewed the current psychotropics carefully including drug interactions. Risk benefit ratio favors no change other than as noted in my dictated progress note. 

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
[2021-08-06 16:07] VITALS: BP 138/69
[2021-08-06] MEDS: DULoxetine HCL 20 MG CAPSULE.DR PO SCH (19:40)
[2021-08-06] MEDS: MIRTAZAPINE 15 MG TABLET PO SCH (19:40)
[2021-08-06] MEDS: MELATONIN 3 MG TABLET PO SCH (19:40)
[2021-08-06] MEDS: DULoxetine HCL 30 MG CAPSULE.DR PO SCH (19:40)
[2021-08-06] MEDS: ATORVASTATIN CALCIUM 10 MG TABLET. PO SCH (19:40)
--- NOTE | 2021-08-06 23:17 | NUR ---
Nursing Note Pt has been up in day room social with peers and staff. Smiles on approach and starts singing sort of to me. Well, talks in a sing song sort of voice. Pt much improved over earlier today. Takes po meds well, no behaviors seems to be in good spirits.
[2021-08-07] MEDS: traZODone 50 MG TABLET. PO PRN (02:00)
[2021-08-07 06:57] VITALS: BP 132/76
[2021-08-07] MEDS: metFORMIN XR 500 MG TAB.ER.24H PO SCH (08:02)
[2021-08-07] MEDS: ASPIRIN ENTERIC COATED 81 MG TABLET.DR. PO SCH (08:03)
[2021-08-07] MEDS: GABAPENTIN 300 MG CAPSULE. PO SCH ×2 (08:03→20:39)
[2021-08-07] MEDS: CARVEDILOL 12.5 MG TABLET PO SCH ×2 (08:03→17:13)
[2021-08-07] MEDS: DOCUSATE SODIUM 100 MG CAPSULE PO SCH (08:03)
[2021-08-07] MEDS: TAMSULOSIN 0.4 MG CAP.ER.24H. PO SCH (08:04)
[2021-08-07] MEDS: ALBUTEROL SULFATE 8GM INHALER. INH PRN ×3 (08:04→17:15)
[2021-08-07] MEDS: PHENYTOIN SODIUM EXTENDED 100 MG CAPSULE PO SCH ×2 (08:04→20:39)
[2021-08-07] MEDS: IPRATROPIUM/ALBUTEROL 20/100mcg/INH INHALER. INH SCH ×4 (08:09→20:39)
--- NOTE | 2021-08-07 10:17 | NUR ---
RN DAY SHIFT NOTE: PT PRESENTS WITH IRRITABLE MOOD. PT WAS MEDICATION COMPLIANT. PT MAKES NEEDS KNOWN TO STAFF. PT IS NOTED TO SPEND TIME IN THE HALLWAY. PTS VITALS ARE WNL. PT SLEPT 5.75 HOURS LAST NIGHT. PT CONTINUES TO HAVE A GOOD APPETITE. WILL CONTINUE TO MONITOR
[2021-08-07 15:42] VITALS: BP 142/72
[2021-08-07] MEDS: MELATONIN 3 MG TABLET PO SCH (20:39)
[2021-08-07] MEDS: MIRTAZAPINE 15 MG TABLET PO SCH (20:39)
[2021-08-07] MEDS: DULoxetine HCL 30 MG CAPSULE.DR PO SCH (20:39)
[2021-08-07] MEDS: DULoxetine HCL 20 MG CAPSULE.DR PO SCH (20:39)
[2021-08-07] MEDS: ATORVASTATIN CALCIUM 10 MG TABLET. PO SCH (20:47)
--- NOTE | 2021-08-07 21:41 | PDOC ---
Exam Note: Leo Note: Please also refer to the separate dictated note~for this date of service dictated separately.~Patient seen individually. Discussed the patient with Nursing staff reviewed the chart.~Reviewed interim history and current functioning. Reviewed vital signs,~Labs/ Radiology~and current medications noted below. Continue current treatment with the changes noted in the dictated addendum note Assessment: Vital Signs/I&O: Vital Signs Date Time Temp Pulse Resp B/P (MAP) Pulse Ox O2 Delivery O2 Flow Rate FiO2 08/07/21 17:13 76 142/72 08/07/21 15:42 98.2 16 94 I & O 08/06/21 08/06/21 08/07/21 15:00 23:00 07:00 Intake Total 1140 ml 480 ml Balance 1140 ml 480 ml Labs: Laboratory Tests Test 08/07/21 07:12 Glucose (Fingerstick) 103 mg/dL (70-99) H Current Medications: Meds: Laboratory Tests Test 08/07/21 07:12 Glucose (Fingerstick) 103 mg/dL Current Medications Medications (Trade) Dose Ordered Sig/Aparna Route PRN Reason Start Time Stop Time Status Last Admin Dose Admin Acetaminophen (Tylenol) 650 mg PRN Q6HRS PRN PO MILD PAIN / TEMP > 100.3'F 07/06/21 00:30 Cancel Multi-Ingredient Ointment (Analgesic [place]) 1 inna PRN QID PRN TP MUSCLE PAIN 07/06/21 00:30 08/01/21 20:19 Al Hydroxide/Mg Hydroxide (Mylanta Plus Xs) 15 ml PRN AFTMEALHC PRN PO DYSPEPSIA 07/06/21 00:30 Magnesium Hydroxide (Milk Of Magnesia) 2,400 mg PRN QHS PRN PO 2ND CHOICE CONSTIPATION 07/06/21 00:30 07/14/21 08:13 Duloxetine HCl (Cymbalta) 20 mg HS PO 07/06/21 21:00 08/07/21 20:39 Duloxetine HCl (Cymbalta) 30 mg HS PO 07/06/21 21:00 08/07/21 20:39 Mirtazapine (Remeron) 7.5 mg HS PO 07/06/21 21:00 07/29/21 18:15 DC 07/28/21 20:09 Olanzapine (ZyPREXA ZYDIS) 2.5 mg PRN Q2HR PRN PO ANXIETY / AGITATION 07/06/21 01:15 08/02/21 23:39 Trazodone HCl (Desyrel) 50 mg PRN QHS PRN PO INSOMNIA 07/06/21 01:15 08/07/21 02:00 Acetaminophen (Tylenol) 650 mg PRN Q4HRS PRN PO PAIN 07/06/21 10:30 08/01/21 20:19 Aspirin (Aspirin Enteric Coated) 81 mg DAILY PO 07/07/21 09:00 08/07/21 08:03 Atorvastatin Calcium (Lipitor) 10 mg QHS PO 07/06/21 21:00 08/07/21 20:47 Carvedilol (Coreg) 3.125 mg BIDWMEALS PO 07/06/21 17:00 07/25/21 17:52 DC 07/25/21 17:22 Gabapentin (Neurontin) 300 mg BID PO 07/06/21 21:00 08/07/21 20:39 Metformin HCl (Glucophage Xr) 500 mg DAILYWBKFT PO 07/07/21 08:00 08/07/21 08:02 Multi-Ingredient Ointment (Analgesic [place]) 1 inna PRN QID PRN TP PAIN 07/06/21 10:30 UNV Phenytoin Sodium (Dilantin) 500 mg HS PO 07/06/21 21:00 07/07/21 22:27 DC 07/07/21 20:05 Tamsulosin HCl (Flomax) 0.4 mg DAILY PO 07/07/21 09:00 08/07/21 08:04 Polyethylene Glycol (miraLAX) 17 gm PRN DAILY PRN PO 1ST CHOICE CONSTIPATION 07/06/21 10:45 Non-Formulary Medication (Pravastatin Sodium ) 40 mg DAILY PO 07/07/21 09:00 UNV Phenyleph/Shark Oil/Min Oil/Petrol (Preparation H) 1 inan PRN QID PRN RC RECTAL PAIN 07/06/21 15:15 Phenytoin Sodium (Dilantin) 400 mg HS PO 07/08/21 21:00 07/11/21 23:36 DC 07/11/21 20:35 Albuterol/ Ipratropium (Combivent Respimat 20-100 Mcg) 1 puff QID INH 07/08/21 13:00 9/9/21 20:39 Docusate Sodium (Colace) 100 mg DAILY PO 07/09/21 09:00 08/07/21 08:03 Guaifenesin (Mucinex Er) 600 mg BID PO 07/08/21 21:00 08/07/21 20:39 Magnesium Hydroxide (Milk Of Magnesia) 2,400 mg PRN QHS PRN PO 2nd CHOICE CONSTIPATION 07/08/21 19:30 Cancel Phenytoin Sodium (Dilantin) 200 mg HS PO 07/12/21 21:00 08/07/21 20:39 Phenytoin Sodium (Dilantin) 100 mg DAILY PO 07/12/21 09:00 08/07/21 08:04 Carvedilol (Coreg) 6.25 mg BIDWMEALS PO 07/25/21 18:00 07/25/21 18:07 DC Carvedilol (Coreg) 6.25 mg BIDWMEALS PO 07/26/21 08:00 08/02/21 09:02 DC 08/02/21 08:33 Mirtazapine (Remeron) 15 mg QHS PO 07/29/21 21:00 08/07/21 20:39 Carvedilol (Coreg) 12.5 mg BIDWMEALS PO 08/02/21 17:00 08/07/21 17:13 Albuterol Sulfate (Ventolin Hfa Inhaler) 2 puff PRN Q4HRS PRN INH SHORTNESS OF BREATH 08/02/21 09:15 08/07/21 17:15 Melatonin (Melatonin) 3 mg QHS PO 08/05/21 21:00 08/07/21 20:39 I have reviewed the current psychotropics carefully including drug interactions. Risk benefit ratio favors no change other than as noted in my dictated progress note. 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
--- NOTE | 2021-08-08 00:03 | NUR ---
Nursing Note The patient was located in the hallway near the nurses station and in his room for his assessment and medication pass. The patient was alert to name and location, year. The patient was compliant with his medication and took them whole. The patient interacted appropriately with peers and staff this shift. The patient sang while sitting in the garcia. The patient is currently sleeping in his room.
[2021-08-08 06:00] VITALS: BP 172/89
[2021-08-08] MEDS: ASPIRIN ENTERIC COATED 81 MG TABLET.DR. PO SCH (08:18)
[2021-08-08] MEDS: PHENYTOIN SODIUM EXTENDED 100 MG CAPSULE PO SCH ×2 (08:19→20:00)
[2021-08-08] MEDS: metFORMIN XR 500 MG TAB.ER.24H PO SCH (08:19)
[2021-08-08] MEDS: DOCUSATE SODIUM 100 MG CAPSULE PO SCH (08:19)
[2021-08-08] MEDS: GABAPENTIN 300 MG CAPSULE. PO SCH ×2 (08:19→20:00)
[2021-08-08] MEDS: TAMSULOSIN 0.4 MG CAP.ER.24H. PO SCH (08:19)
[2021-08-08] MEDS: CARVEDILOL 12.5 MG TABLET PO SCH ×2 (08:19→17:12)
[2021-08-08] MEDS: IPRATROPIUM/ALBUTEROL 20/100mcg/INH INHALER. INH SCH ×4 (08:20→19:59)
[2021-08-08 15:42] VITALS: BP 138/70
--- NOTE | 2021-08-08 18:30 | NUR ---
Patient was calm, compliant, and social with peers during this shift. He was withdrawn to his room for the majority of the afternoon. Will continue to monitor and report to oncoming staff.
[2021-08-08] MEDS: DULoxetine HCL 20 MG CAPSULE.DR PO SCH (19:59)
[2021-08-08] MEDS: DULoxetine HCL 30 MG CAPSULE.DR PO SCH (19:59)
[2021-08-08] MEDS: ATORVASTATIN CALCIUM 10 MG TABLET. PO SCH (20:00)
[2021-08-08] MEDS: MIRTAZAPINE 15 MG TABLET PO SCH (20:00)
[2021-08-08] MEDS: MELATONIN 3 MG TABLET PO SCH (20:01)
--- NOTE | 2021-08-08 21:56 | PDOC ---
Exam Note: Leo Note: Please also refer to the separate dictated note~for this date of service dictated separately.~Patient seen individually. Discussed the patient with Nursing staff reviewed the chart.~Reviewed interim history and current functioning. Reviewed vital signs,~Labs/ Radiology~and current medications noted below. Continue current treatment with the changes noted in the dictated addendum note Assessment: Vital Signs/I&O: Vital Signs Date Time Temp Pulse Resp B/P (MAP) Pulse Ox O2 Delivery O2 Flow Rate FiO2 08/08/21 17:12 67 138/70 08/08/21 15:42 98.0 17 94 I & O 08/07/21 08/07/21 08/08/21 14:59 22:59 06:59 Intake Total 1067 ml 720 ml Balance 1067 ml 720 ml Labs: Laboratory Tests Test 08/08/21 07:14 08/08/21 11:26 Glucose (Fingerstick) 116 mg/dL (70-99) H 138 mg/dL (70-99) H Current Medications: Meds: Laboratory Tests Test 08/08/21 07:14 08/08/21 11:26 Glucose (Fingerstick) 116 mg/dL 138 mg/dL Current Medications Medications (Trade) Dose Ordered Sig/Aparna Route PRN Reason Start Time Stop Time Status Last Admin Dose Admin Acetaminophen (Tylenol) 650 mg PRN Q6HRS PRN PO MILD PAIN / TEMP > 100.3'F 07/06/21 00:30 Cancel Multi-Ingredient Ointment (Analgesic [place]) 1 inna PRN QID PRN TP MUSCLE PAIN 07/06/21 00:30 08/01/21 20:19 Al Hydroxide/Mg Hydroxide (Mylanta Plus Xs) 15 ml PRN AFTMEALHC PRN PO DYSPEPSIA 07/06/21 00:30 Magnesium Hydroxide (Milk Of Magnesia) 2,400 mg PRN QHS PRN PO 2ND CHOICE CONSTIPATION 07/06/21 00:30 07/14/21 08:13 Duloxetine HCl (Cymbalta) 20 mg HS PO 07/06/21 21:00 08/08/21 19:59 Duloxetine HCl (Cymbalta) 30 mg HS PO 07/06/21 21:00 08/08/21 19:59 Mirtazapine (Remeron) 7.5 mg HS PO 07/06/21 21:00 07/29/21 18:15 DC 07/28/21 20:09 Olanzapine (ZyPREXA ZYDIS) 2.5 mg PRN Q2HR PRN PO ANXIETY / AGITATION 07/06/21 01:15 08/02/21 23:39 Trazodone HCl (Desyrel) 50 mg PRN QHS PRN PO INSOMNIA 07/06/21 01:15 08/07/21 02:00 Acetaminophen (Tylenol) 650 mg PRN Q4HRS PRN PO PAIN 07/06/21 10:30 08/01/21 20:19 Aspirin (Aspirin Enteric Coated) 81 mg DAILY PO 07/07/21 09:00 08/08/21 08:18 Atorvastatin Calcium (Lipitor) 10 mg QHS PO 07/06/21 21:00 08/08/21 20:00 Carvedilol (Coreg) 3.125 mg BIDWMEALS PO 07/06/21 17:00 07/25/21 17:52 DC 07/25/21 17:22 Gabapentin (Neurontin) 300 mg BID PO 07/06/21 21:00 08/08/21 20:00 Metformin HCl (Glucophage Xr) 500 mg DAILYWBKFT PO 07/07/21 08:00 08/08/21 08:19 Multi-Ingredient Ointment (Analgesic [place]) 1 inna PRN QID PRN TP PAIN 07/06/21 10:30 UNV Phenytoin Sodium (Dilantin) 500 mg HS PO 07/06/21 21:00 07/07/21 22:27 DC 07/07/21 20:05 Tamsulosin HCl (Flomax) 0.4 mg DAILY PO 07/07/21 09:00 08/08/21 08:19 Polyethylene Glycol (miraLAX) 17 gm PRN DAILY PRN PO 1ST CHOICE CONSTIPATION 07/06/21 10:45 Non-Formulary Medication (Pravastatin Sodium ) 40 mg DAILY PO 07/07/21 09:00 UNV Phenyleph/Shark Oil/Min Oil/Petrol (Preparation H) 1 inna PRN QID PRN RC RECTAL PAIN 07/06/21 15:15 Phenytoin Sodium (Dilantin) 400 mg HS PO 07/08/21 21:00 07/11/21 23:36 DC 07/11/21 20:35 Albuterol/ Ipratropium (Combivent Respimat 20-100 Mcg) 1 puff QID INH 07/08/21 13:00 08/08/21 19:59 Docusate Sodium (Colace) 100 mg DAILY PO 07/09/21 09:00 08/08/21 08:19 Guaifenesin (Mucinex Er) 600 mg BID PO 07/08/21 21:00 08/08/21 20:00 Magnesium Hydroxide (Milk Of Magnesia) 2,400 mg PRN QHS PRN PO 2nd CHOICE CONSTIPATION 07/08/21 19:30 Cancel Phenytoin Sodium (Dilantin) 200 mg HS PO 07/12/21 21:00 08/08/21 20:00 Phenytoin Sodium (Dilantin) 100 mg DAILY PO 07/12/21 09:00 08/08/21 08:19 Carvedilol (Coreg) 6.25 mg BIDWMEALS PO 07/25/21 18:00 07/25/21 18:07 DC Carvedilol (Coreg) 6.25 mg BIDWMEALS PO 07/26/21 08:00 08/02/21 09:02 DC 08/02/21 08:33 Mirtazapine (Remeron) 15 mg QHS PO 07/29/21 21:00 08/08/21 20:00 Carvedilol (Coreg) 12.5 mg BIDWMEALS PO 08/02/21 17:00 08/08/21 17:12 Albuterol Sulfate (Ventolin Hfa Inhaler) 2 puff PRN Q4HRS PRN INH SHORTNESS OF BREATH 08/02/21 09:15 08/07/21 17:15 Melatonin (Melatonin) 3 mg QHS PO 08/05/21 21:00 08/08/21 20:01 I have reviewed the current psychotropics carefully including drug interactions. Risk benefit ratio favors no change other than as noted in my dictated progress note. 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
[2021-08-09 05:49] VITALS: BP 138/69
[2021-08-09] MEDS: metFORMIN XR 500 MG TAB.ER.24H PO SCH (08:35)
[2021-08-09] MEDS: DOCUSATE SODIUM 100 MG CAPSULE PO SCH (08:35)
[2021-08-09] MEDS: ASPIRIN ENTERIC COATED 81 MG TABLET.DR. PO SCH (08:35)
[2021-08-09] MEDS: TAMSULOSIN 0.4 MG CAP.ER.24H. PO SCH (08:35)
[2021-08-09] MEDS: IPRATROPIUM/ALBUTEROL 20/100mcg/INH INHALER. INH SCH ×4 (08:36→20:42)
[2021-08-09] MEDS: GABAPENTIN 300 MG CAPSULE. PO SCH ×2 (08:36→20:44)
[2021-08-09] MEDS: PHENYTOIN SODIUM EXTENDED 100 MG CAPSULE PO SCH ×2 (08:36→20:43)
[2021-08-09] MEDS: CARVEDILOL 12.5 MG TABLET PO SCH ×2 (08:36→17:18)
[2021-08-09 15:28] VITALS: BP 125/67
[2021-08-09] MEDS: ALBUTEROL SULFATE 8GM INHALER. INH PRN (16:08)
--- NOTE | 2021-08-09 18:12 | NUR ---
Patient was calm, compliant, and social with peers during this shift. He was occasionally withdrawn to his room for short periods. Patient complained of shortness of breath in the late afternoon, prn medication provided per eMAR. Will continue to monitor and report to oncoming staff.
[2021-08-09] MEDS: MELATONIN 3 MG TABLET PO SCH (20:42)
[2021-08-09] MEDS: MIRTAZAPINE 15 MG TABLET PO SCH (20:43)
[2021-08-09] MEDS: ATORVASTATIN CALCIUM 10 MG TABLET. PO SCH (20:43)
[2021-08-09] MEDS: DULoxetine HCL 20 MG CAPSULE.DR PO SCH (20:43)
[2021-08-09] MEDS: traZODone 50 MG TABLET. PO PRN (20:44)
[2021-08-09] MEDS: DULoxetine HCL 30 MG CAPSULE.DR PO SCH (20:44)
--- NOTE | 2021-08-09 21:58 | PDOC ---
Exam Note: Leo Note: Please also refer to the separate dictated note~for this date of service dictated separately.~Patient seen individually. Discussed the patient with Nursing staff reviewed the chart.~Reviewed interim history and current functioning. Reviewed vital signs,~Labs/ Radiology~and current medications noted below. Continue current treatment with the changes noted in the dictated addendum note Assessment: Vital Signs/I&O: Vital Signs Date Time Temp Pulse Resp B/P (MAP) Pulse Ox O2 Delivery O2 Flow Rate FiO2 08/09/21 17:18 92 125/67 08/09/21 15:28 97.9 16 95 Room Air I & O 08/08/21 08/08/21 08/09/21 15:00 23:00 07:00 Intake Total 970 ml 847 ml Balance 970 ml 847 ml Labs: Laboratory Tests Test 08/09/21 07:31 Glucose (Fingerstick) 110 mg/dL (70-99) H Current Medications: Meds: Laboratory Tests Test 08/09/21 07:31 Glucose (Fingerstick) 110 mg/dL Current Medications Medications (Trade) Dose Ordered Sig/Aparna Route PRN Reason Start Time Stop Time Status Last Admin Dose Admin Acetaminophen (Tylenol) 650 mg PRN Q6HRS PRN PO MILD PAIN / TEMP > 100.3'F 07/06/21 00:30 Cancel Multi-Ingredient Ointment (Analgesic [place]) 1 inna PRN QID PRN TP MUSCLE PAIN 07/06/21 00:30 08/01/21 20:19 Al Hydroxide/Mg Hydroxide (Mylanta Plus Xs) 15 ml PRN AFTMEALHC PRN PO DYSPEPSIA 07/06/21 00:30 Magnesium Hydroxide (Milk Of Magnesia) 2,400 mg PRN QHS PRN PO 2ND CHOICE CONSTIPATION 07/06/21 00:30 07/14/21 08:13 Duloxetine HCl (Cymbalta) 20 mg HS PO 07/06/21 21:00 08/09/21 20:43 Duloxetine HCl (Cymbalta) 30 mg HS PO 07/06/21 21:00 08/09/21 20:44 Mirtazapine (Remeron) 7.5 mg HS PO 07/06/21 21:00 07/29/21 18:15 DC 07/28/21 20:09 Olanzapine (ZyPREXA ZYDIS) 2.5 mg PRN Q2HR PRN PO ANXIETY / AGITATION 07/06/21 01:15 08/02/21 23:39 Trazodone HCl (Desyrel) 50 mg PRN QHS PRN PO INSOMNIA 07/06/21 01:15 08/09/21 20:44 Acetaminophen (Tylenol) 650 mg PRN Q4HRS PRN PO PAIN 07/06/21 10:30 08/01/21 20:19 Aspirin (Aspirin Enteric Coated) 81 mg DAILY PO 07/07/21 09:00 08/09/21 08:35 Atorvastatin Calcium (Lipitor) 10 mg QHS PO 07/06/21 21:00 08/09/21 20:43 Carvedilol (Coreg) 3.125 mg BIDWMEALS PO 07/06/21 17:00 07/25/21 17:52 DC 07/25/21 17:22 Gabapentin (Neurontin) 300 mg BID PO 07/06/21 21:00 08/09/21 20:44 Metformin HCl (Glucophage Xr) 500 mg DAILYWBKFT PO 07/07/21 08:00 08/09/21 08:35 Multi-Ingredient Ointment (Analgesic [place]) 1 inna PRN QID PRN TP PAIN 07/06/21 10:30 UNV Phenytoin Sodium (Dilantin) 500 mg HS PO 07/06/21 21:00 07/07/21 22:27 DC 07/07/21 20:05 Tamsulosin HCl (Flomax) 0.4 mg DAILY PO 07/07/21 09:00 08/09/21 08:35 Polyethylene Glycol (miraLAX) 17 gm PRN DAILY PRN PO 1ST CHOICE CONSTIPATION 07/06/21 10:45 Non-Formulary Medication (Pravastatin Sodium ) 40 mg DAILY PO 07/07/21 09:00 UNV Phenyleph/Shark Oil/Min Oil/Petrol (Preparation H) 1 inna PRN QID PRN RC RECTAL PAIN 07/06/21 15:15 Phenytoin Sodium (Dilantin) 400 mg HS PO 07/08/21 21:00 07/11/21 23:36 DC 07/11/21 20:35 Albuterol/ Ipratropium (Combivent Respimat 20-100 Mcg) 1 puff QID INH 07/08/21 13:00 08/09/21 20:42 Docusate Sodium (Colace) 100 mg DAILY PO 07/09/21 09:00 08/09/21 08:35 Guaifenesin (Mucinex Er) 600 mg BID PO 07/08/21 21:00 08/09/21 20:44 Magnesium Hydroxide (Milk Of Magnesia) 2,400 mg PRN QHS PRN PO 2nd CHOICE CONSTIPATION 07/08/21 19:30 Cancel Phenytoin Sodium (Dilantin) 200 mg HS PO 07/12/21 21:00 08/09/21 20:43 Phenytoin Sodium (Dilantin) 100 mg DAILY PO 07/12/21 09:00 08/09/21 08:36 Carvedilol (Coreg) 6.25 mg BIDWMEALS PO 07/25/21 18:00 07/25/21 18:07 DC Carvedilol (Coreg) 6.25 mg BIDWMEALS PO 07/26/21 08:00 08/02/21 09:02 DC 08/02/21 08:33 Mirtazapine (Remeron) 15 mg QHS PO 07/29/21 21:00 08/09/21 20:43 Carvedilol (Coreg) 12.5 mg BIDWMEALS PO 08/02/21 17:00 08/09/21 17:18 Albuterol Sulfate (Ventolin Hfa Inhaler) 2 puff PRN Q4HRS PRN INH SHORTNESS OF BREATH 08/02/21 09:15 08/09/21 16:08 Melatonin (Melatonin) 3 mg QHS PO 08/05/21 21:00 08/09/21 20:42 I have reviewed the current psychotropics carefully including drug interactions. Risk benefit ratio favors no change other than as noted in my dictated progress note. 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
--- NOTE | 2021-08-09 22:58 | NUR ---
Patient is in his room on assumption of care, sitting in his wheelchair in the doorway and talking with a peer. Compliant with assessments and medications taken whole. Cooperative with shower and HS care. No inappropriate comments so far this shift. No agitation. Denies pain or discomfort. He appears to be sleeping comfortably at present time. Will continue to monitor.
[2021-08-10] MEDS: ALBUTEROL SULFATE 8GM INHALER. INH PRN (03:44)
[2021-08-10 06:02] VITALS: BP 114/65
[2021-08-10] MEDS: IPRATROPIUM/ALBUTEROL 20/100mcg/INH INHALER. INH SCH ×4 (08:34→20:30)
[2021-08-10] MEDS: TAMSULOSIN 0.4 MG CAP.ER.24H. PO SCH (08:35)
[2021-08-10] MEDS: CARVEDILOL 12.5 MG TABLET PO SCH ×2 (08:35→17:18)
[2021-08-10] MEDS: DOCUSATE SODIUM 100 MG CAPSULE PO SCH (08:35)
[2021-08-10] MEDS: metFORMIN XR 500 MG TAB.ER.24H PO SCH (08:35)
[2021-08-10] MEDS: ASPIRIN ENTERIC COATED 81 MG TABLET.DR. PO SCH (08:35)
[2021-08-10] MEDS: GABAPENTIN 300 MG CAPSULE. PO SCH ×2 (08:35→20:28)
[2021-08-10] MEDS: PHENYTOIN SODIUM EXTENDED 100 MG CAPSULE PO SCH ×2 (08:36→20:30)
--- NOTE | 2021-08-10 14:51 | NUR ---
Nsg Note; Nasir has been calm, cooperative and med compliant today. He likes to talk with others and occ briefly sign. He withdrew to his bed after lunch for an afternoon nap.
[2021-08-10 16:21] VITALS: BP 166/75
[2021-08-10] MEDS: DULoxetine HCL 20 MG CAPSULE.DR PO SCH (20:28)
[2021-08-10] MEDS: DULoxetine HCL 30 MG CAPSULE.DR PO SCH (20:28)
[2021-08-10] MEDS: MIRTAZAPINE 15 MG TABLET PO SCH (20:28)
[2021-08-10] MEDS: MELATONIN 3 MG TABLET PO SCH (20:28)
[2021-08-10] MEDS: ATORVASTATIN CALCIUM 10 MG TABLET. PO SCH (20:29)
[2021-08-10] MEDS: traZODone 50 MG TABLET. PO PRN (20:30)
--- NOTE | 2021-08-10 22:05 | PDOC ---
Exam Note: Leo Note: Please also refer to the separate dictated note~for this date of service dictated separately.~Patient seen individually. Discussed the patient with Nursing staff reviewed the chart.~Reviewed interim history and current functioning. Reviewed vital signs,~Labs/ Radiology~and current medications noted below. Continue current treatment with the changes noted in the dictated addendum note Assessment: Vital Signs/I&O: Vital Signs Date Time Temp Pulse Resp B/P (MAP) Pulse Ox O2 Delivery O2 Flow Rate FiO2 08/10/21 17:18 74 166/75 08/10/21 16:21 98.0 16 93 08/09/21 15:28 Room Air I & O 08/09/21 08/09/21 08/10/21 15:00 23:00 07:00 Intake Total 960 ml 480 ml Balance 960 ml 480 ml Labs: Laboratory Tests Test 08/10/21 07:39 Glucose (Fingerstick) 119 mg/dL (70-99) H Current Medications: Meds: Laboratory Tests Test 08/10/21 07:39 Glucose (Fingerstick) 119 mg/dL Current Medications Medications (Trade) Dose Ordered Sig/Aparna Route PRN Reason Start Time Stop Time Status Last Admin Dose Admin Acetaminophen (Tylenol) 650 mg PRN Q6HRS PRN PO MILD PAIN / TEMP > 100.3'F 07/06/21 00:30 Cancel Multi-Ingredient Ointment (Analgesic [place]) 1 inna PRN QID PRN TP MUSCLE PAIN 07/06/21 00:30 08/01/21 20:19 Al Hydroxide/Mg Hydroxide (Mylanta Plus Xs) 15 ml PRN AFTMEALHC PRN PO DYSPEPSIA 07/06/21 00:30 Magnesium Hydroxide (Milk Of Magnesia) 2,400 mg PRN QHS PRN PO 2ND CHOICE CONSTIPATION 07/06/21 00:30 07/14/21 08:13 Duloxetine HCl (Cymbalta) 20 mg HS PO 07/06/21 21:00 08/10/21 20:28 Duloxetine HCl (Cymbalta) 30 mg HS PO 07/06/21 21:00 08/10/21 20:28 Mirtazapine (Remeron) 7.5 mg HS PO 07/06/21 21:00 07/29/21 18:15 DC 07/28/21 20:09 Olanzapine (ZyPREXA ZYDIS) 2.5 mg PRN Q2HR PRN PO ANXIETY / AGITATION 07/06/21 01:15 08/02/21 23:39 Trazodone HCl (Desyrel) 50 mg PRN QHS PRN PO INSOMNIA 07/06/21 01:15 08/10/21 20:30 Acetaminophen (Tylenol) 650 mg PRN Q4HRS PRN PO PAIN 07/06/21 10:30 08/01/21 20:19 Aspirin (Aspirin Enteric Coated) 81 mg DAILY PO 07/07/21 09:00 08/10/21 08:35 Atorvastatin Calcium (Lipitor) 10 mg QHS PO 07/06/21 21:00 08/10/21 20:29 Carvedilol (Coreg) 3.125 mg BIDWMEALS PO 07/06/21 17:00 07/25/21 17:52 DC 07/25/21 17:22 Gabapentin (Neurontin) 300 mg BID PO 07/06/21 21:00 08/10/21 20:28 Metformin HCl (Glucophage Xr) 500 mg DAILYWBKFT PO 07/07/21 08:00 08/10/21 08:35 Multi-Ingredient Ointment (Analgesic [place]) 1 inna PRN QID PRN TP PAIN 07/06/21 10:30 UNV Phenytoin Sodium (Dilantin) 500 mg HS PO 07/06/21 21:00 07/07/21 22:27 DC 07/07/21 20:05 Tamsulosin HCl (Flomax) 0.4 mg DAILY PO 07/07/21 09:00 08/10/21 08:35 Polyethylene Glycol (miraLAX) 17 gm PRN DAILY PRN PO 1ST CHOICE CONSTIPATION 07/06/21 10:45 Non-Formulary Medication (Pravastatin Sodium ) 40 mg DAILY PO 07/07/21 09:00 UNV Phenyleph/Shark Oil/Min Oil/Petrol (Preparation H) 1 inna PRN QID PRN RC RECTAL PAIN 07/06/21 15:15 Phenytoin Sodium (Dilantin) 400 mg HS PO 07/08/21 21:00 07/11/21 23:36 DC 07/11/21 20:35 Albuterol/ Ipratropium (Combivent Respimat 20-100 Mcg) 1 puff QID INH 07/08/21 13:00 08/10/21 20:30 Docusate Sodium (Colace) 100 mg DAILY PO 07/09/21 09:00 08/10/21 08:35 Guaifenesin (Mucinex Er) 600 mg BID PO 07/08/21 21:00 08/10/21 20:28 Magnesium Hydroxide (Milk Of Magnesia) 2,400 mg PRN QHS PRN PO 2nd CHOICE CONSTIPATION 07/08/21 19:30 Cancel Phenytoin Sodium (Dilantin) 200 mg HS PO 07/12/21 21:00 08/10/21 20:30 Phenytoin Sodium (Dilantin) 100 mg DAILY PO 07/12/21 09:00 08/10/21 08:36 Carvedilol (Coreg) 6.25 mg BIDWMEALS PO 07/25/21 18:00 07/25/21 18:07 DC Carvedilol (Coreg) 6.25 mg BIDWMEALS PO 07/26/21 08:00 08/02/21 09:02 DC 08/02/21 08:33 Mirtazapine (Remeron) 15 mg QHS PO 07/29/21 21:00 08/10/21 20:28 Carvedilol (Coreg) 12.5 mg BIDWMEALS PO 08/02/21 17:00 08/10/21 17:18 Albuterol Sulfate (Ventolin Hfa Inhaler) 2 puff PRN Q4HRS PRN INH SHORTNESS OF BREATH 08/02/21 09:15 08/10/21 03:44 Melatonin (Melatonin) 3 mg QHS PO 08/05/21 21:00 08/10/21 20:28 I have reviewed the current psychotropics carefully including drug interactions. Risk benefit ratio favors no change other than as noted in my dictated progress note. 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
[2021-08-11] MEDS: ALBUTEROL SULFATE 8GM INHALER. INH PRN (03:17)
--- NOTE | 2021-08-11 04:21 | NUR ---
Nursing Note The patient was located in the hallway interacting with peers when approached for his medication and assessment. The patient took his medication whole. The patient was alert to name only. The patient awoke at approximately 0300 and was anxious and reported having difficulty breathing. The patient was given PRN Albuterol inhaler per PRN order. The patient is currently located in his room sitting in his wheelchair.
[2021-08-11 06:20] VITALS: BP 149/70
[2021-08-11] MEDS: ASPIRIN ENTERIC COATED 81 MG TABLET.DR. PO SCH (08:32)
[2021-08-11] MEDS: GABAPENTIN 300 MG CAPSULE. PO SCH ×2 (08:32→20:58)
[2021-08-11] MEDS: PHENYTOIN SODIUM EXTENDED 100 MG CAPSULE PO SCH ×2 (08:32→20:55)
[2021-08-11] MEDS: IPRATROPIUM/ALBUTEROL 20/100mcg/INH INHALER. INH SCH ×4 (08:33→20:56)
[2021-08-11] MEDS: metFORMIN XR 500 MG TAB.ER.24H PO SCH (08:33)
[2021-08-11] MEDS: CARVEDILOL 12.5 MG TABLET PO SCH ×2 (08:33→17:00)
[2021-08-11] MEDS: TAMSULOSIN 0.4 MG CAP.ER.24H. PO SCH (08:33)
[2021-08-11] MEDS: DOCUSATE SODIUM 100 MG CAPSULE PO SCH (08:33)
--- NOTE | 2021-08-11 09:08 | PDOC ---
Exam Note: Leo Note: This note is a late entry for 08/07/2021 covers elements not covered in my initial note. Subjective: The patient was reviewed on telehealth rounds in the evening of 08/07/2021 because of the COVID-19 pandemic and my own ill health and restrictions to be on the unit consequent to this with Eliud KOWALSKI, discussed and reviewed the chart. The patient slept 5-3/4 hours previous night. Overall patient has done well during the day. He is somewhat forgetful, anxious but redirects. He gets more anxious in the evening when he also starts retching and hacking. Dr. Niño is following this medically. Review of Systems: Impaired ambulation in wheelchair. No CV, GI, eye, ENT system symptoms on review. He does complain of some shortness of breath in the evening and retching. Mental Status Exam: The patient is oriented to himself. Abstraction fair. Computation impaired. Language function intact. Attention span short. Mood and affect remains anxious. Laboratory Data: Reviewed. Impression: Major depressive disorder, recurrent. Major neurocognitive disorder, Alzheimer, vascular with delusion, depression, behavioral disturbance. Anxiety disorder unspecified. Impulse control disorder unspecified. Plan: Continue psychotropics from initial note. Assessment: Vital Signs/I&O: Vital Signs Date Time Temp Pulse Resp B/P (MAP) Pulse Ox O2 Delivery O2 Flow Rate FiO2 08/11/21 08:33 71 149/70 08/11/21 06:20 97.7 20 95 08/09/21 15:28 Room Air I & O 08/10/21 08/10/21 08/11/21 15:00 23:00 07:00 Intake Total 960 ml 340 ml Balance 960 ml 340 ml Labs: Laboratory Tests Test 08/11/21 08:08 Glucose (Fingerstick) 123 mg/dL (70-99) H Current Medications: Meds: Laboratory Tests Test 08/11/21 08:08 Glucose (Fingerstick) 123 mg/dL Current Medications Medications (Trade) Dose Ordered Sig/Aparna Route PRN Reason Start Time Stop Time Status Last Admin Dose Admin Acetaminophen (Tylenol) 650 mg PRN Q6HRS PRN PO MILD PAIN / TEMP > 100.3'F 07/06/21 00:30 Cancel Multi-Ingredient Ointment (Analgesic [place]) 1 inna PRN QID PRN TP MUSCLE PAIN 07/06/21 00:30 08/01/21 20:19 Al Hydroxide/Mg Hydroxide (Mylanta Plus Xs) 15 ml PRN AFTMEALHC PRN PO DYSPEPSIA 07/06/21 00:30 Magnesium Hydroxide (Milk Of Magnesia) 2,400 mg PRN QHS PRN PO 2ND CHOICE CONSTIPATION 07/06/21 00:30 07/14/21 08:13 Duloxetine HCl (Cymbalta) 20 mg HS PO 07/06/21 21:00 08/10/21 20:28 Duloxetine HCl (Cymbalta) 30 mg HS PO 07/06/21 21:00 08/10/21 20:28 Mirtazapine (Remeron) 7.5 mg HS PO 07/06/21 21:00 07/29/21 18:15 DC 07/28/21 20:09 Olanzapine (ZyPREXA ZYDIS) 2.5 mg PRN Q2HR PRN PO ANXIETY / AGITATION 07/06/21 01:15 08/02/21 23:39 Trazodone HCl (Desyrel) 50 mg PRN QHS PRN PO INSOMNIA 07/06/21 01:15 08/10/21 20:30 Acetaminophen (Tylenol) 650 mg PRN Q4HRS PRN PO PAIN 07/06/21 10:30 08/01/21 20:19 Aspirin (Aspirin Enteric Coated) 81 mg DAILY PO 07/07/21 09:00 08/11/21 08:32 Atorvastatin Calcium (Lipitor) 10 mg QHS PO 07/06/21 21:00 08/10/21 20:29 Carvedilol (Coreg) 3.125 mg BIDWMEALS PO 07/06/21 17:00 07/25/21 17:52 DC 07/25/21 17:22 Gabapentin (Neurontin) 300 mg BID PO 07/06/21 21:00 08/11/21 08:32 Metformin HCl (Glucophage Xr) 500 mg DAILYWBKFT PO 07/07/21 08:00 08/11/21 08:33 Multi-Ingredient Ointment (Analgesic [place]) 1 inna PRN QID PRN TP PAIN 07/06/21 10:30 UNV Phenytoin Sodium (Dilantin) 500 mg HS PO 07/06/21 21:00 07/07/21 22:27 DC 07/07/21 20:05 Tamsulosin HCl (Flomax) 0.4 mg DAILY PO 07/07/21 09:00 08/11/21 08:33 Polyethylene Glycol (miraLAX) 17 gm PRN DAILY PRN PO 1ST CHOICE CONSTIPATION 07/06/21 10:45 Non-Formulary Medication (Pravastatin Sodium ) 40 mg DAILY PO 07/07/21 09:00 UNV Phenyleph/Shark Oil/Min Oil/Petrol (Preparation H) 1 inna PRN QID PRN RC RECTAL PAIN 07/06/21 15:15 Phenytoin Sodium (Dilantin) 400 mg HS PO 07/08/21 21:00 07/11/21 23:36 DC 07/11/21 20:35 Albuterol/ Ipratropium (Combivent Respimat 20-100 Mcg) 1 puff QID INH 07/08/21 13:00 08/11/21 08:33 Docusate Sodium (Colace) 100 mg DAILY PO 07/09/21 09:00 08/11/21 08:33 Guaifenesin (Mucinex Er) 600 mg BID PO 07/08/21 21:00 08/11/21 08:33 Magnesium Hydroxide (Milk Of Magnesia) 2,400 mg PRN QHS PRN PO 2nd CHOICE CONSTIPATION 07/08/21 19:30 Cancel Phenytoin Sodium (Dilantin) 200 mg HS PO 07/12/21 21:00 08/10/21 20:30 Phenytoin Sodium (Dilantin) 100 mg DAILY PO 07/12/21 09:00 08/11/21 08:32 Carvedilol (Coreg) 6.25 mg BIDWMEALS PO 07/25/21 18:00 07/25/21 18:07 DC Carvedilol (Coreg) 6.25 mg BIDWMEALS PO 07/26/21 08:00 08/02/21 09:02 DC 08/02/21 08:33 Mirtazapine (Remeron) 15 mg QHS PO 07/29/21 21:00 08/10/21 20:28 Carvedilol (Coreg) 12.5 mg BIDWMEALS PO 08/02/21 17:00 08/11/21 08:33 Albuterol Sulfate (Ventolin Hfa Inhaler) 2 puff PRN Q4HRS PRN INH SHORTNESS OF BREATH 08/02/21 09:15 08/11/21 03:17 Melatonin (Melatonin) 3 mg QHS PO 08/05/21 21:00 08/10/21 20:28 I have reviewed the current psychotropics carefully including drug interactions. Risk benefit ratio favors no change other than as noted in my dictated progress note. 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
--- NOTE | 2021-08-11 09:26 | PDOC ---
Exam Note: Leo Note: This note is a late entry for 08/08/2021 covers elements not covered in my initial note. Subjective: The patient was seen individually in the evening of 08/08/2021 with Mane KOWALSKI, discussed and reviewed the chart. The patient slept 6 hours previous night. I met with him in his room. Review of Systems: Impaired ambulation in wheelchair. No CV, , eye, ENT system symptoms on review. Mental Status Exam: The patient is oriented to himself. He does still complain of coughing in the evening but Dr. Niño is addressing this and nursing staff used p.r.n.s. for anxiety. This seems to improve the symptoms. He is otherwise pleasant, interactive and cooperative. Abstraction fair. Computation impaired. Language function intact. Attention span short. Mood and affect remains anxious. Laboratory Data: Reviewed. Impression: Major depressive disorder, recurrent. Major neurocognitive disorder, Alzheimer, vascular with delusion, depression, behavioral disturbance. Anxiety disorder unspecified. Impulse control disorder unspecified. Plan: Continue psychotropics from initial note. Assessment: Vital Signs/I&O: Vital Signs Date Time Temp Pulse Resp B/P (MAP) Pulse Ox O2 Delivery O2 Flow Rate FiO2 08/11/21 08:33 71 149/70 08/11/21 06:20 97.7 20 95 08/09/21 15:28 Room Air I & O 08/10/21 08/10/21 08/11/21 14:59 22:59 06:59 Intake Total 960 ml 340 ml Balance 960 ml 340 ml Labs: Laboratory Tests Test 08/11/21 08:08 Glucose (Fingerstick) 123 mg/dL (70-99) H Current Medications: Meds: Laboratory Tests Test 08/11/21 08:08 Glucose (Fingerstick) 123 mg/dL Current Medications Medications (Trade) Dose Ordered Sig/Aparna Route PRN Reason Start Time Stop Time Status Last Admin Dose Admin Acetaminophen (Tylenol) 650 mg PRN Q6HRS PRN PO MILD PAIN / TEMP > 100.3'F 07/06/21 00:30 Cancel Multi-Ingredient Ointment (Analgesic [place]) 1 inna PRN QID PRN TP MUSCLE PAIN 07/06/21 00:30 08/01/21 20:19 Al Hydroxide/Mg Hydroxide (Mylanta Plus Xs) 15 ml PRN AFTMEALHC PRN PO DYSPEPSIA 07/06/21 00:30 Magnesium Hydroxide (Milk Of Magnesia) 2,400 mg PRN QHS PRN PO 2ND CHOICE CONSTIPATION 07/06/21 00:30 07/14/21 08:13 Duloxetine HCl (Cymbalta) 20 mg HS PO 07/06/21 21:00 08/10/21 20:28 Duloxetine HCl (Cymbalta) 30 mg HS PO 07/06/21 21:00 08/10/21 20:28 Mirtazapine (Remeron) 7.5 mg HS PO 07/06/21 21:00 07/29/21 18:15 DC 07/28/21 20:09 Olanzapine (ZyPREXA ZYDIS) 2.5 mg PRN Q2HR PRN PO ANXIETY / AGITATION 07/06/21 01:15 08/02/21 23:39 Trazodone HCl (Desyrel) 50 mg PRN QHS PRN PO INSOMNIA 07/06/21 01:15 08/10/21 20:30 Acetaminophen (Tylenol) 650 mg PRN Q4HRS PRN PO PAIN 07/06/21 10:30 08/01/21 20:19 Aspirin (Aspirin Enteric Coated) 81 mg DAILY PO 07/07/21 09:00 08/11/21 08:32 Atorvastatin Calcium (Lipitor) 10 mg QHS PO 07/06/21 21:00 08/10/21 20:29 Carvedilol (Coreg) 3.125 mg BIDWMEALS PO 07/06/21 17:00 07/25/21 17:52 DC 07/25/21 17:22 Gabapentin (Neurontin) 300 mg BID PO 07/06/21 21:00 08/11/21 08:32 Metformin HCl (Glucophage Xr) 500 mg DAILYWBKFT PO 07/07/21 08:00 08/11/21 08:33 Multi-Ingredient Ointment (Analgesic [place]) 1 inna PRN QID PRN TP PAIN 07/06/21 10:30 UNV Phenytoin Sodium (Dilantin) 500 mg HS PO 07/06/21 21:00 07/07/21 22:27 DC 07/07/21 20:05 Tamsulosin HCl (Flomax) 0.4 mg DAILY PO 07/07/21 09:00 08/11/21 08:33 Polyethylene Glycol (miraLAX) 17 gm PRN DAILY PRN PO 1ST CHOICE CONSTIPATION 07/06/21 10:45 Non-Formulary Medication (Pravastatin Sodium ) 40 mg DAILY PO 07/07/21 09:00 UNV Phenyleph/Shark Oil/Min Oil/Petrol (Preparation H) 1 inna PRN QID PRN RC RECTAL PAIN 07/06/21 15:15 Phenytoin Sodium (Dilantin) 400 mg HS PO 07/08/21 21:00 07/11/21 23:36 DC 07/11/21 20:35 Albuterol/ Ipratropium (Combivent Respimat 20-100 Mcg) 1 puff QID INH 07/08/21 13:00 08/11/21 08:33 Docusate Sodium (Colace) 100 mg DAILY PO 07/09/21 09:00 08/11/21 08:33 Guaifenesin (Mucinex Er) 600 mg BID PO 07/08/21 21:00 08/11/21 08:33 Magnesium Hydroxide (Milk Of Magnesia) 2,400 mg PRN QHS PRN PO 2nd CHOICE CONSTIPATION 07/08/21 19:30 Cancel Phenytoin Sodium (Dilantin) 200 mg HS PO 07/12/21 21:00 08/10/21 20:30 Phenytoin Sodium (Dilantin) 100 mg DAILY PO 07/12/21 09:00 08/11/21 08:32 Carvedilol (Coreg) 6.25 mg BIDWMEALS PO 07/25/21 18:00 07/25/21 18:07 DC Carvedilol (Coreg) 6.25 mg BIDWMEALS PO 07/26/21 08:00 08/02/21 09:02 DC 08/02/21 08:33 Mirtazapine (Remeron) 15 mg QHS PO 07/29/21 21:00 08/10/21 20:28 Carvedilol (Coreg) 12.5 mg BIDWMEALS PO 08/02/21 17:00 08/11/21 08:33 Albuterol Sulfate (Ventolin Hfa Inhaler) 2 puff PRN Q4HRS PRN INH SHORTNESS OF BREATH 08/02/21 09:15 08/11/21 03:17 Melatonin (Melatonin) 3 mg QHS PO 08/05/21 21:00 08/10/21 20:28 I have reviewed the current psychotropics carefully including drug interactions. Risk benefit ratio favors no change other than as noted in my dictated progress note. 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
--- NOTE | 2021-08-11 09:54 | NUR ---
Pt has been present and visible on the unit. His interactions with others have been appropriate. He has in particular struck up a friendship with another patient and they are often observed conversing with one another and eating meals at the same table. This friendship is a mixed-gendered friendship and their interactions have remained platonic and appropriate on the unit. He is compliant with whole medications and is able to make his needs known to staff. Lung sounds diminished with wheezes upon auscultation, no excessive coughing of phlegm observed during the morning as opposed to previous days. Pt absent of SI/HI/VH/AH/delusions/pain at this time. Plan of care continues, will pass to next shift.
--- NOTE | 2021-08-11 11:26 | PDOC ---
Exam Note: Leo Note: This note is a late entry for 08/09/2021 covers elements not covered in my initial note. Subjective: The patient was seen individually in the evening of 08/09/2021 with Rk KOWALSKI, discussed and reviewed the chart. The patient slept 4-1/4 hours previous night. He complains of shortness of breath in the evening. Review of Systems: Impaired ambulation in wheelchair. I met with him in his room. He has been otherwise cooperative. No CV, GI, eye system symptoms on review. Mental Status Exam: The patient is oriented to himself. Speech coherent. Abstraction fair. Computation impaired. Language function intact. Attention span short. Mood and affect remains anxious. Laboratory Data: Reviewed. Impression: Major depressive disorder, recurrent. Major neurocognitive disorder, Alzheimer, vascular with delusion, depression, behavioral disturbance. Anxiety disorder unspecified. Impulse control disorder unspecified. Plan: Continue psychotropics from initial note. Assessment: Vital Signs/I&O: Vital Signs Date Time Temp Pulse Resp B/P (MAP) Pulse Ox O2 Delivery O2 Flow Rate FiO2 08/11/21 08:33 71 149/70 08/11/21 06:20 97.7 20 95 08/09/21 15:28 Room Air I & O 08/10/21 08/10/21 08/11/21 15:00 23:00 07:00 Intake Total 960 ml 340 ml Balance 960 ml 340 ml Labs: Laboratory Tests Test 08/11/21 08:08 Glucose (Fingerstick) 123 mg/dL (70-99) H Current Medications: Meds: Laboratory Tests Test 08/11/21 08:08 Glucose (Fingerstick) 123 mg/dL Current Medications Medications (Trade) Dose Ordered Sig/Aparna Route PRN Reason Start Time Stop Time Status Last Admin Dose Admin Acetaminophen (Tylenol) 650 mg PRN Q6HRS PRN PO MILD PAIN / TEMP > 100.3'F 07/06/21 00:30 Cancel Multi-Ingredient Ointment (Analgesic [place]) 1 inna PRN QID PRN TP MUSCLE PAIN 07/06/21 00:30 08/01/21 20:19 Al Hydroxide/Mg Hydroxide (Mylanta Plus Xs) 15 ml PRN AFTMEALHC PRN PO DYSPEPSIA 07/06/21 00:30 Magnesium Hydroxide (Milk Of Magnesia) 2,400 mg PRN QHS PRN PO 2ND CHOICE CONSTIPATION 07/06/21 00:30 07/14/21 08:13 Duloxetine HCl (Cymbalta) 20 mg HS PO 07/06/21 21:00 08/10/21 20:28 Duloxetine HCl (Cymbalta) 30 mg HS PO 07/06/21 21:00 08/10/21 20:28 Mirtazapine (Remeron) 7.5 mg HS PO 07/06/21 21:00 07/29/21 18:15 DC 07/28/21 20:09 Olanzapine (ZyPREXA ZYDIS) 2.5 mg PRN Q2HR PRN PO ANXIETY / AGITATION 07/06/21 01:15 08/02/21 23:39 Trazodone HCl (Desyrel) 50 mg PRN QHS PRN PO INSOMNIA 07/06/21 01:15 08/10/21 20:30 Acetaminophen (Tylenol) 650 mg PRN Q4HRS PRN PO PAIN 07/06/21 10:30 08/01/21 20:19 Aspirin (Aspirin Enteric Coated) 81 mg DAILY PO 07/07/21 09:00 08/11/21 08:32 Atorvastatin Calcium (Lipitor) 10 mg QHS PO 07/06/21 21:00 08/10/21 20:29 Carvedilol (Coreg) 3.125 mg BIDWMEALS PO 07/06/21 17:00 07/25/21 17:52 DC 07/25/21 17:22 Gabapentin (Neurontin) 300 mg BID PO 07/06/21 21:00 08/11/21 08:32 Metformin HCl (Glucophage Xr) 500 mg DAILYWBKFT PO 07/07/21 08:00 08/11/21 08:33 Multi-Ingredient Ointment (Analgesic [place]) 1 inna PRN QID PRN TP PAIN 07/06/21 10:30 UNV Phenytoin Sodium (Dilantin) 500 mg HS PO 07/06/21 21:00 07/07/21 22:27 DC 07/07/21 20:05 Tamsulosin HCl (Flomax) 0.4 mg DAILY PO 07/07/21 09:00 08/11/21 08:33 Polyethylene Glycol (miraLAX) 17 gm PRN DAILY PRN PO 1ST CHOICE CONSTIPATION 07/06/21 10:45 Non-Formulary Medication (Pravastatin Sodium ) 40 mg DAILY PO 07/07/21 09:00 UNV Phenyleph/Shark Oil/Min Oil/Petrol (Preparation H) 1 inna PRN QID PRN RC RECTAL PAIN 07/06/21 15:15 Phenytoin Sodium (Dilantin) 400 mg HS PO 07/08/21 21:00 07/11/21 23:36 DC 07/11/21 20:35 Albuterol/ Ipratropium (Combivent Respimat 20-100 Mcg) 1 puff QID INH 07/08/21 13:00 08/11/21 08:33 Docusate Sodium (Colace) 100 mg DAILY PO 07/09/21 09:00 08/11/21 08:33 Guaifenesin (Mucinex Er) 600 mg BID PO 07/08/21 21:00 08/11/21 08:33 Magnesium Hydroxide (Milk Of Magnesia) 2,400 mg PRN QHS PRN PO 2nd CHOICE CONSTIPATION 07/08/21 19:30 Cancel Phenytoin Sodium (Dilantin) 200 mg HS PO 07/12/21 21:00 08/10/21 20:30 Phenytoin Sodium (Dilantin) 100 mg DAILY PO 07/12/21 09:00 08/11/21 08:32 Carvedilol (Coreg) 6.25 mg BIDWMEALS PO 07/25/21 18:00 07/25/21 18:07 DC Carvedilol (Coreg) 6.25 mg BIDWMEALS PO 07/26/21 08:00 08/02/21 09:02 DC 08/02/21 08:33 Mirtazapine (Remeron) 15 mg QHS PO 07/29/21 21:00 08/10/21 20:28 Carvedilol (Coreg) 12.5 mg BIDWMEALS PO 08/02/21 17:00 08/11/21 08:33 Albuterol Sulfate (Ventolin Hfa Inhaler) 2 puff PRN Q4HRS PRN INH SHORTNESS OF BREATH 08/02/21 09:15 08/11/21 03:17 Melatonin (Melatonin) 3 mg QHS PO 08/05/21 21:00 08/10/21 20:28 I have reviewed the current psychotropics carefully including drug interactions. Risk benefit ratio favors no change other than as noted in my dictated progress note. 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
--- NOTE | 2021-08-11 11:45 | PDOC ---
Exam Note: Leo Note: This note is a late entry for 08/10/2021 covers elements not covered in my initial note. Subjective: The patient was seen individually in the evening of 08/10/2021 with Eliud KOWALSKI, discussed and reviewed the chart. The patient slept 4-3/4 hours previous night. He is somewhat attention seeking at times, especially in the evening. He continues to recur with a hacking cough. We will defer to Dr. Niño. He comes out in the hallway to cough but redirects, gets back to his room. Review of Systems: Impaired ambulation in wheelchair. He has some chronic cough. No CV, , eye, ENT system symptoms on review. Mental Status Exam: The patient is oriented to himself. Speech coherent. Abstraction fair. Computation impaired. Language function intact. Attention span short. Mood and affect remains anxious. Laboratory Data: Reviewed. Impression: Major depressive disorder, recurrent. Major neurocognitive disorder, Alzheimer, vascular with delusion, depression, behavioral disturbance. Anxiety disorder unspecified. Impulse control disorder unspecified. Plan: Continue psychotropics from initial note. Assessment: Vital Signs/I&O: Vital Signs Date Time Temp Pulse Resp B/P (MAP) Pulse Ox O2 Delivery O2 Flow Rate FiO2 08/11/21 08:33 71 149/70 08/11/21 06:20 97.7 20 95 08/09/21 15:28 Room Air I & O 08/10/21 08/10/21 08/11/21 14:59 22:59 06:59 Intake Total 960 ml 340 ml Balance 960 ml 340 ml Labs: Laboratory Tests Test 08/11/21 08:08 Glucose (Fingerstick) 123 mg/dL (70-99) H Current Medications: Meds: Laboratory Tests Test 08/11/21 08:08 Glucose (Fingerstick) 123 mg/dL Current Medications Medications (Trade) Dose Ordered Sig/Aparna Route PRN Reason Start Time Stop Time Status Last Admin Dose Admin Acetaminophen (Tylenol) 650 mg PRN Q6HRS PRN PO MILD PAIN / TEMP > 100.3'F 07/06/21 00:30 Cancel Multi-Ingredient Ointment (Analgesic [place]) 1 inna PRN QID PRN TP MUSCLE PAIN 07/06/21 00:30 08/01/21 20:19 Al Hydroxide/Mg Hydroxide (Mylanta Plus Xs) 15 ml PRN AFTMEALHC PRN PO DYSPEPSIA 07/06/21 00:30 Magnesium Hydroxide (Milk Of Magnesia) 2,400 mg PRN QHS PRN PO 2ND CHOICE CONSTIPATION 07/06/21 00:30 07/14/21 08:13 Duloxetine HCl (Cymbalta) 20 mg HS PO 07/06/21 21:00 08/10/21 20:28 Duloxetine HCl (Cymbalta) 30 mg HS PO 07/06/21 21:00 08/10/21 20:28 Mirtazapine (Remeron) 7.5 mg HS PO 07/06/21 21:00 07/29/21 18:15 DC 07/28/21 20:09 Olanzapine (ZyPREXA ZYDIS) 2.5 mg PRN Q2HR PRN PO ANXIETY / AGITATION 07/06/21 01:15 08/02/21 23:39 Trazodone HCl (Desyrel) 50 mg PRN QHS PRN PO INSOMNIA 07/06/21 01:15 08/10/21 20:30 Acetaminophen (Tylenol) 650 mg PRN Q4HRS PRN PO PAIN 07/06/21 10:30 08/01/21 20:19 Aspirin (Aspirin Enteric Coated) 81 mg DAILY PO 07/07/21 09:00 08/11/21 08:32 Atorvastatin Calcium (Lipitor) 10 mg QHS PO 07/06/21 21:00 08/10/21 20:29 Carvedilol (Coreg) 3.125 mg BIDWMEALS PO 07/06/21 17:00 07/25/21 17:52 DC 07/25/21 17:22 Gabapentin (Neurontin) 300 mg BID PO 07/06/21 21:00 08/11/21 08:32 Metformin HCl (Glucophage Xr) 500 mg DAILYWBKFT PO 07/07/21 08:00 08/11/21 08:33 Multi-Ingredient Ointment (Analgesic [place]) 1 inna PRN QID PRN TP PAIN 07/06/21 10:30 UNV Phenytoin Sodium (Dilantin) 500 mg HS PO 07/06/21 21:00 07/07/21 22:27 DC 07/07/21 20:05 Tamsulosin HCl (Flomax) 0.4 mg DAILY PO 07/07/21 09:00 08/11/21 08:33 Polyethylene Glycol (miraLAX) 17 gm PRN DAILY PRN PO 1ST CHOICE CONSTIPATION 07/06/21 10:45 Non-Formulary Medication (Pravastatin Sodium ) 40 mg DAILY PO 07/07/21 09:00 UNV Phenyleph/Shark Oil/Min Oil/Petrol (Preparation H) 1 inna PRN QID PRN RC RECTAL PAIN 07/06/21 15:15 Phenytoin Sodium (Dilantin) 400 mg HS PO 07/08/21 21:00 07/11/21 23:36 DC 07/11/21 20:35 Albuterol/ Ipratropium (Combivent Respimat 20-100 Mcg) 1 puff QID INH 07/08/21 13:00 08/11/21 08:33 Docusate Sodium (Colace) 100 mg DAILY PO 07/09/21 09:00 08/11/21 08:33 Guaifenesin (Mucinex Er) 600 mg BID PO 07/08/21 21:00 08/11/21 08:33 Magnesium Hydroxide (Milk Of Magnesia) 2,400 mg PRN QHS PRN PO 2nd CHOICE CONSTIPATION 07/08/21 19:30 Cancel Phenytoin Sodium (Dilantin) 200 mg HS PO 07/12/21 21:00 08/10/21 20:30 Phenytoin Sodium (Dilantin) 100 mg DAILY PO 07/12/21 09:00 08/11/21 08:32 Carvedilol (Coreg) 6.25 mg BIDWMEALS PO 07/25/21 18:00 07/25/21 18:07 DC Carvedilol (Coreg) 6.25 mg BIDWMEALS PO 07/26/21 08:00 08/02/21 09:02 DC 08/02/21 08:33 Mirtazapine (Remeron) 15 mg QHS PO 07/29/21 21:00 08/10/21 20:28 Carvedilol (Coreg) 12.5 mg BIDWMEALS PO 08/02/21 17:00 08/11/21 08:33 Albuterol Sulfate (Ventolin Hfa Inhaler) 2 puff PRN Q4HRS PRN INH SHORTNESS OF BREATH 08/02/21 09:15 08/11/21 03:17 Melatonin (Melatonin) 3 mg QHS PO 08/05/21 21:00 08/10/21 20:28 I have reviewed the current psychotropics carefully including drug interactions. Risk benefit ratio favors no change other than as noted in my dictated progress note. 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
--- NOTE | 2021-08-11 13:01 | NUR ---
WEEKLY ACTIVITY THERAPY NOTE Date of Admission: 07/06/21 Date of AT Assessment: 07/08 Precipitating behaviors that initiated intake and admission:Patient was reported to believe that his money was being stolen, his dog was being murdered, trying to leave the facility, disoriented, being tearful and crying frequently, and having sexually inappropriate conversations with other residents Goal aimed:increase socialization and engagement Initial Goal: Pt will participate in at least three individual or group Activity Therapy sessions per week. Goal changed 07/21:Pt will participate in at least five individual or group Activity Therapy sessions per week. Weekly progress towards goal: did not achieve, 01/31 Group participation level: 1 min, 2 full Weekly highlights: sang and socialized with peers , sang and participated in music recall Wednesday Behaviors observed: able to answer correct music artists for songs, pleasant and calm Plan: no change to goal Beneficial adaptations: music, socialization
--- NOTE | 2021-08-11 14:19 | NUR ---
Treatment team update: Pt is eating 100% of meals and sleeping on average 5 hours per night. Pt continues to have trouble sleeping, which requires at times PRN Trazodone on top of his routine Melatonin and Remeron. Pt is mostly calm and compliant with all stafff cares and direction. He also tends to be at times attention-seeking; but interactive with staff and peers. Pt has been accepted to [facility]; plans for pt transition is bieng worked out with pt family. ALISON holder ASAP.
--- NOTE | 2021-08-11 15:36 | NUR ---
ARI contacted pt nephew, Maikel and updated him on pt placement. ARI informed Maikel that they will need to discuss financials with him and that a copy of his Covid card will need to be sent over. Maikel thought that [facility] may have a copy of his Covid vaccine card and would check with Gloria. ARI will follow up on that. ARI will contact Sabine at [facility] and see about finalizing discharge plans for pt.
[2021-08-11 15:44] VITALS: BP 149/71
--- NOTE | 2021-08-11 16:12 | NUR ---
ARI left a message for Sabine at [facility] to contact ARI when possible re: pt discharge and contacting the family re: paperwork/payment prior to admission
--- NOTE | 2021-08-11 18:21 | NUR ---
Pt spotted holding hands with the female patient he befriended. Staff requested that they refrain from fraternizing and they agreed.
[2021-08-11] MEDS: DULoxetine HCL 20 MG CAPSULE.DR PO SCH (20:55)
[2021-08-11] MEDS: ATORVASTATIN CALCIUM 10 MG TABLET. PO SCH (20:55)
[2021-08-11] MEDS: MELATONIN 3 MG TABLET PO SCH (20:55)
[2021-08-11] MEDS: DULoxetine HCL 30 MG CAPSULE.DR PO SCH (20:55)
[2021-08-11] MEDS: MIRTAZAPINE 15 MG TABLET PO SCH (20:55)
--- NOTE | 2021-08-11 21:53 | PDOC ---
Exam Note: Leo Note: Please also refer to the separate dictated note~for this date of service dictated separately.~Patient seen individually. Discussed the patient with Nursing staff reviewed the chart.~Reviewed interim history and current functioning. Reviewed vital signs,~Labs/ Radiology~and current medications noted below. Continue current treatment with the changes noted in the dictated addendum note Assessment: Vital Signs/I&O: Vital Signs Date Time Temp Pulse Resp B/P (MAP) Pulse Ox O2 Delivery O2 Flow Rate FiO2 08/11/21 17:00 73 149/71 08/11/21 15:44 98.2 18 96 Room Air I & O 08/10/21 08/10/21 08/11/21 15:00 23:00 07:00 Intake Total 960 ml 340 ml Balance 960 ml 340 ml Labs: Laboratory Tests Test 08/11/21 08:08 Glucose (Fingerstick) 123 mg/dL (70-99) H Current Medications: Meds: Laboratory Tests Test 08/11/21 08:08 Glucose (Fingerstick) 123 mg/dL Current Medications Medications (Trade) Dose Ordered Sig/Aparna Route PRN Reason Start Time Stop Time Status Last Admin Dose Admin Acetaminophen (Tylenol) 650 mg PRN Q6HRS PRN PO MILD PAIN / TEMP > 100.3'F 07/06/21 00:30 Cancel Multi-Ingredient Ointment (Analgesic [place]) 1 inna PRN QID PRN TP MUSCLE PAIN 07/06/21 00:30 08/01/21 20:19 Al Hydroxide/Mg Hydroxide (Mylanta Plus Xs) 15 ml PRN AFTMEALHC PRN PO DYSPEPSIA 07/06/21 00:30 Magnesium Hydroxide (Milk Of Magnesia) 2,400 mg PRN QHS PRN PO 2ND CHOICE CONSTIPATION 07/06/21 00:30 07/14/21 08:13 Duloxetine HCl (Cymbalta) 20 mg HS PO 07/06/21 21:00 08/11/21 20:55 Duloxetine HCl (Cymbalta) 30 mg HS PO 07/06/21 21:00 08/11/21 20:55 Mirtazapine (Remeron) 7.5 mg HS PO 07/06/21 21:00 07/29/21 18:15 DC 07/28/21 20:09 Olanzapine (ZyPREXA ZYDIS) 2.5 mg PRN Q2HR PRN PO ANXIETY / AGITATION 07/06/21 01:15 08/02/21 23:39 Trazodone HCl (Desyrel) 50 mg PRN QHS PRN PO INSOMNIA 07/06/21 01:15 08/10/21 20:30 Acetaminophen (Tylenol) 650 mg PRN Q4HRS PRN PO PAIN 07/06/21 10:30 08/01/21 20:19 Aspirin (Aspirin Enteric Coated) 81 mg DAILY PO 07/07/21 09:00 08/11/21 08:32 Atorvastatin Calcium (Lipitor) 10 mg QHS PO 07/06/21 21:00 08/11/21 20:55 Carvedilol (Coreg) 3.125 mg BIDWMEALS PO 07/06/21 17:00 07/25/21 17:52 DC 07/25/21 17:22 Gabapentin (Neurontin) 300 mg BID PO 07/06/21 21:00 08/11/21 20:58 Metformin HCl (Glucophage Xr) 500 mg DAILYWBKFT PO 07/07/21 08:00 08/11/21 08:33 Multi-Ingredient Ointment (Analgesic [place]) 1 inna PRN QID PRN TP PAIN 07/06/21 10:30 UNV Phenytoin Sodium (Dilantin) 500 mg HS PO 07/06/21 21:00 07/07/21 22:27 DC 07/07/21 20:05 Tamsulosin HCl (Flomax) 0.4 mg DAILY PO 07/07/21 09:00 08/11/21 08:33 Polyethylene Glycol (miraLAX) 17 gm PRN DAILY PRN PO 1ST CHOICE CONSTIPATION 07/06/21 10:45 Non-Formulary Medication (Pravastatin Sodium ) 40 mg DAILY PO 07/07/21 09:00 UNV Phenyleph/Shark Oil/Min Oil/Petrol (Preparation H) 1 inna PRN QID PRN RC RECTAL PAIN 07/06/21 15:15 Phenytoin Sodium (Dilantin) 400 mg HS PO 07/08/21 21:00 07/11/21 23:36 DC 07/11/21 20:35 Albuterol/ Ipratropium (Combivent Respimat 20-100 Mcg) 1 puff QID INH 07/08/21 13:00 08/11/21 20:56 Docusate Sodium (Colace) 100 mg DAILY PO 07/09/21 09:00 08/11/21 08:33 Guaifenesin (Mucinex Er) 600 mg BID PO 07/08/21 21:00 08/11/21 20:55 Magnesium Hydroxide (Milk Of Magnesia) 2,400 mg PRN QHS PRN PO 2nd CHOICE CONSTIPATION 07/08/21 19:30 Cancel Phenytoin Sodium (Dilantin) 200 mg HS PO 07/12/21 21:00 08/11/21 20:55 Phenytoin Sodium (Dilantin) 100 mg DAILY PO 07/12/21 09:00 08/11/21 08:32 Carvedilol (Coreg) 6.25 mg BIDWMEALS PO 07/25/21 18:00 07/25/21 18:07 DC Carvedilol (Coreg) 6.25 mg BIDWMEALS PO 07/26/21 08:00 08/02/21 09:02 DC 08/02/21 08:33 Mirtazapine (Remeron) 15 mg QHS PO 07/29/21 21:00 08/11/21 20:55 Carvedilol (Coreg) 12.5 mg BIDWMEALS PO 08/02/21 17:00 08/11/21 17:00 Albuterol Sulfate (Ventolin Hfa Inhaler) 2 puff PRN Q4HRS PRN INH SHORTNESS OF BREATH 08/02/21 09:15 08/11/21 03:17 Melatonin (Melatonin) 3 mg QHS PO 08/05/21 21:00 08/11/21 20:55 I have reviewed the current psychotropics carefully including drug interactions. Risk benefit ratio favors no change other than as noted in my dictated progress note. 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
--- NOTE | 2021-08-12 02:20 | NUR ---
Nursing Note The patient was located in the hallway and his room for his assessment and medication pass. The patient was interactive with peers and staff. The patient was demanding at times banging on the door to the nurses station to get staff attention. The patient is currently sleeping in his room.
[2021-08-12 06:07] VITALS: BP 173/86
[2021-08-12] MEDS: IPRATROPIUM/ALBUTEROL 20/100mcg/INH INHALER. INH SCH ×4 (08:07→20:10)
[2021-08-12] MEDS: DOCUSATE SODIUM 100 MG CAPSULE PO SCH (08:35)
[2021-08-12] MEDS: metFORMIN XR 500 MG TAB.ER.24H PO SCH (08:35)
[2021-08-12] MEDS: ASPIRIN ENTERIC COATED 81 MG TABLET.DR. PO SCH (08:36)
[2021-08-12] MEDS: CARVEDILOL 12.5 MG TABLET PO SCH ×2 (08:36→17:27)
[2021-08-12] MEDS: GABAPENTIN 300 MG CAPSULE. PO SCH ×2 (08:36→20:11)
[2021-08-12] MEDS: TAMSULOSIN 0.4 MG CAP.ER.24H. PO SCH (08:36)
[2021-08-12] MEDS: PHENYTOIN SODIUM EXTENDED 100 MG CAPSULE PO SCH ×2 (08:36→20:10)
--- NOTE | 2021-08-12 10:02 | NUR ---
Pt has been present and visible on the unit. His interactions with others have been appropriate. He is compliant with whole medications and is able to make his needs known to staff. Lung sounds diminished with wheezes upon auscultation, during breakfast he was continuously creating a loud and gurggly wet cough which produced small amounts of phlegm. This is common for him during the morning hours. Pt absent of SI/HI/VH/AH/delusions/pain at this time. Plan of care continues, will pass to next shift.
[2021-08-12 10:48] LABS: BASO % 1 % (0-3); EOS # 0.8 x10^3/uL (0.0-0.7); EOS % 13 % (0-3); HEMATOCRIT 33.2 % (39.0-53.0); LYMPH # 1.6 x10^3/uL (1.0-4.8); LYMPH % 25 % (24-48); MEAN CORPUSCULAR HEMOGLOBIN 34 pg (25-35); MEAN CORPUSCULAR HGB CONC 33 g/dL (31-37); MEAN CORPUSCULAR VOLUME 103 fL (79-100); MONO # 0.7 x10^3/uL (0.0-1.1); MONO % 10 % (0-9); NEUT # 3.3 x10^3uL (1.8-7.7); NEUT % 51 % (31-73); PLATELET COUNT 104 x10^3/uL (140-400); RED BLOOD COUNT 3.22 x10^6/uL (4.30-5.70); RED CELL DISTRIBUTION WIDTH 14.1 % (11.5-14.5); WHITE BLOOD COUNT 6.4 x10^3/uL (4.0-11.0)
[2021-08-12 11:10] LABS: ALBUMIN/GLOBULIN RATIO 0.9 (1.0-1.7); CALCIUM 8.5 mg/dL (8.5-10.1); CREATININE 1.3 mg/dL (0.7-1.3); GFR 53.3; POTASSIUM 4.2 mmol/L (3.5-5.1); TOTAL BILIRUBIN 0.3 mg/dL (0.2-1.0); TOTAL PROTEIN 6.3 g/dL (6.4-8.2)
[2021-08-12 16:10] VITALS: BP 110/62
[2021-08-12] MEDS: ATORVASTATIN CALCIUM 10 MG TABLET. PO SCH (20:09)
[2021-08-12] MEDS: MELATONIN 3 MG TABLET PO SCH (20:09)
[2021-08-12] MEDS: MIRTAZAPINE 15 MG TABLET PO SCH (20:09)
[2021-08-12] MEDS: DULoxetine HCL 30 MG CAPSULE.DR PO SCH (20:09)
[2021-08-12] MEDS: DULoxetine HCL 20 MG CAPSULE.DR PO SCH (20:09)
--- NOTE | 2021-08-12 22:38 | PDOC ---
Exam Note: Leo Note: Please also refer to the separate dictated note~for this date of service dictated separately.~Patient seen individually. Discussed the patient with Nursing staff reviewed the chart.~Reviewed interim history and current functioning. Reviewed vital signs,~Labs/ Radiology~and current medications noted below. Continue current treatment with the changes noted in the dictated addendum note Assessment: Vital Signs/I&O: Vital Signs Date Time Temp Pulse Resp B/P (MAP) Pulse Ox O2 Delivery O2 Flow Rate FiO2 08/12/21 17:27 70 110/62 08/12/21 16:10 98.2 18 93 Room Air I & O 08/11/21 08/11/21 08/12/21 15:00 23:00 07:00 Intake Total 930 ml 840 ml Balance 930 ml 840 ml Labs: Laboratory Tests Test 08/12/21 07:10 08/12/21 10:24 Glucose (Fingerstick) 123 mg/dL (70-99) H White Blood Count 6.4 x10^3/uL (4.0-11.0) Red Blood Count 3.22 x10^6/uL (4.30-5.70) L Hemoglobin 11.0 g/dL (13.0-17.5) L Hematocrit 33.2 % (39.0-53.0) L Mean Corpuscular Volume 103 fL (79-100) H Mean Corpuscular Hemoglobin 34 pg (25-35) Mean Corpuscular Hemoglobin Concent 33 g/dL (31-37) Red Cell Distribution Width 14.1 % (11.5-14.5) Platelet Count 104 x10^3/uL (140-400) L Neutrophils (%) (Auto) 51 % (31-73) Lymphocytes (%) (Auto) 25 % (24-48) Monocytes (%) (Auto) 10 % (0-9) H Eosinophils (%) (Auto) 13 % (0-3) H Basophils (%) (Auto) 1 % (0-3) Neutrophils # (Auto) 3.3 x10^3uL (1.8-7.7) Lymphocytes # (Auto) 1.6 x10^3/uL (1.0-4.8) Monocytes # (Auto) 0.7 x10^3/uL (0.0-1.1) Eosinophils # (Auto) 0.8 x10^3/uL (0.0-0.7) H Basophils # (Auto) 0.0 x10^3/uL (0.0-0.2) Sodium Level 142 mmol/L (136-145) Potassium Level 4.2 mmol/L (3.5-5.1) Chloride Level 106 mmol/L (98-107) Carbon Dioxide Level 32 mmol/L (21-32) Anion Gap 4 (6-14) L Blood Urea Nitrogen 45 mg/dL (8-26) H Creatinine 1.3 mg/dL (0.7-1.3) Estimated GFR (Cockcroft-Gault) 53.3 BUN/Creatinine Ratio 35 (6-20) H Glucose Level 199 mg/dL (70-99) H Calcium Level 8.5 mg/dL (8.5-10.1) Total Bilirubin 0.3 mg/dL (0.2-1.0) Aspartate Amino Transferase (AST) 18 U/L (15-37) Alanine Aminotransferase (ALT) 25 U/L (16-63) Alkaline Phosphatase 116 U/L (46-116) Total Protein 6.3 g/dL (6.4-8.2) L Albumin 3.0 g/dL (3.4-5.0) L Albumin/Globulin Ratio 0.9 (1.0-1.7) L Current Medications: Meds: Laboratory Tests Test 08/12/21 07:10 08/12/21 10:24 Glucose (Fingerstick) 123 mg/dL White Blood Count 6.4 x10^3/uL Red Blood Count 3.22 x10^6/uL Hemoglobin 11.0 g/dL Hematocrit 33.2 % Mean Corpuscular Volume 103 fL Mean Corpuscular Hemoglobin 34 pg Mean Corpuscular Hemoglobin Concent 33 g/dL Red Cell Distribution Width 14.1 % Platelet Count 104 x10^3/uL Neutrophils (%) (Auto) 51 % Lymphocytes (%) (Auto) 25 % Monocytes (%) (Auto) 10 % Eosinophils (%) (Auto) 13 % Basophils (%) (Auto) 1 % Neutrophils # (Auto) 3.3 x10^3uL Lymphocytes # (Auto) 1.6 x10^3/uL Monocytes # (Auto) 0.7 x10^3/uL Eosinophils # (Auto) 0.8 x10^3/uL Basophils # (Auto) 0.0 x10^3/uL Sodium Level 142 mmol/L Potassium Level 4.2 mmol/L Chloride Level 106 mmol/L Carbon Dioxide Level 32 mmol/L Anion Gap 4 Blood Urea Nitrogen 45 mg/dL Creatinine 1.3 mg/dL Estimated GFR (Cockcroft-Gault) 53.3 BUN/Creatinine Ratio 35 Glucose Level 199 mg/dL Calcium Level 8.5 mg/dL Total Bilirubin 0.3 mg/dL Aspartate Amino Transf (AST/SGOT) 18 U/L Alanine Aminotransferase (ALT/SGPT) 25 U/L Alkaline Phosphatase 116 U/L Total Protein 6.3 g/dL Albumin 3.0 g/dL Albumin/Globulin Ratio 0.9 Current Medications Medications (Trade) Dose Ordered Sig/Aparna Route PRN Reason Start Time Stop Time Status Last Admin Dose Admin Acetaminophen (Tylenol) 650 mg PRN Q6HRS PRN PO MILD PAIN / TEMP > 100.3'F 07/06/21 00:30 Cancel Multi-Ingredient Ointment (Analgesic [place]) 1 inna PRN QID PRN TP MUSCLE PAIN 07/06/21 00:30 08/01/21 20:19 Al Hydroxide/Mg Hydroxide (Mylanta Plus Xs) 15 ml PRN AFTMEALHC PRN PO DYSPEPSIA 07/06/21 00:30 Magnesium Hydroxide (Milk Of Magnesia) 2,400 mg PRN QHS PRN PO 2ND CHOICE CONSTIPATION 07/06/21 00:30 07/14/21 08:13 Duloxetine HCl (Cymbalta) 20 mg HS PO 07/06/21 21:00 08/12/21 20:09 Duloxetine HCl (Cymbalta) 30 mg HS PO 07/06/21 21:00 08/12/21 20:09 Mirtazapine (Remeron) 7.5 mg HS PO 07/06/21 21:00 07/29/21 18:15 DC 07/28/21 20:09 Olanzapine (ZyPREXA ZYDIS) 2.5 mg PRN Q2HR PRN PO ANXIETY / AGITATION 07/06/21 01:15 08/02/21 23:39 Trazodone HCl (Desyrel) 50 mg PRN QHS PRN PO INSOMNIA 07/06/21 01:15 08/10/21 20:30 Acetaminophen (Tylenol) 650 mg PRN Q4HRS PRN PO PAIN 07/06/21 10:30 08/01/21 20:19 Aspirin (Aspirin Enteric Coated) 81 mg DAILY PO 07/07/21 09:00 08/12/21 08:36 Atorvastatin Calcium (Lipitor) 10 mg QHS PO 07/06/21 21:00 08/12/21 20:09 Carvedilol (Coreg) 3.125 mg BIDWMEALS PO 07/06/21 17:00 07/25/21 17:52 DC 07/25/21 17:22 Gabapentin (Neurontin) 300 mg BID PO 07/06/21 21:00 08/12/21 20:11 Metformin HCl (Glucophage Xr) 500 mg DAILYWBKFT PO 07/07/21 08:00 08/12/21 08:35 Multi-Ingredient Ointment (Analgesic [place]) 1 inna PRN QID PRN TP PAIN 07/06/21 10:30 UNV Phenytoin Sodium (Dilantin) 500 mg HS PO 07/06/21 21:00 07/07/21 22:27 DC 07/07/21 20:05 Tamsulosin HCl (Flomax) 0.4 mg DAILY PO 07/07/21 09:00 08/12/21 08:36 Polyethylene Glycol (miraLAX) 17 gm PRN DAILY PRN PO 1ST CHOICE CONSTIPATION 07/06/21 10:45 Non-Formulary Medication (Pravastatin Sodium ) 40 mg DAILY PO 07/07/21 09:00 UNV Phenyleph/Shark Oil/Min Oil/Petrol (Preparation H) 1 inna PRN QID PRN RC RECTAL PAIN 07/06/21 15:15 Phenytoin Sodium (Dilantin) 400 mg HS PO 07/08/21 21:00 07/11/21 23:36 DC 07/11/21 20:35 Albuterol/ Ipratropium (Combivent Respimat 20-100 Mcg) 1 puff QID INH 07/08/21 13:00 08/12/21 20:10 Docusate Sodium (Colace) 100 mg DAILY PO 07/09/21 09:00 08/12/21 08:35 Guaifenesin (Mucinex Er) 600 mg BID PO 07/08/21 21:00 9/14/21 20:09 Magnesium Hydroxide (Milk Of Magnesia) 2,400 mg PRN QHS PRN PO 2nd CHOICE CONSTIPATION 07/08/21 19:30 Cancel Phenytoin Sodium (Dilantin) 200 mg HS PO 07/12/21 21:00 08/12/21 20:10 Phenytoin Sodium (Dilantin) 100 mg DAILY PO 07/12/21 09:00 08/12/21 08:36 Carvedilol (Coreg) 6.25 mg BIDWMEALS PO 07/25/21 18:00 07/25/21 18:07 DC Carvedilol (Coreg) 6.25 mg BIDWMEALS PO 07/26/21 08:00 08/02/21 09:02 DC 08/02/21 08:33 Mirtazapine (Remeron) 15 mg QHS PO 07/29/21 21:00 08/12/21 20:09 Carvedilol (Coreg) 12.5 mg BIDWMEALS PO 08/02/21 17:00 08/12/21 17:27 Albuterol Sulfate (Ventolin Hfa Inhaler) 2 puff PRN Q4HRS PRN INH SHORTNESS OF BREATH 08/02/21 09:15 08/11/21 03:17 Melatonin (Melatonin) 3 mg QHS PO 08/05/21 21:00 08/12/21 20:09 I have reviewed the current psychotropics carefully including drug interactions. Risk benefit ratio favors no change other than as noted in my dictated progress note. 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
--- NOTE | 2021-08-13 01:31 | NUR ---
Nursing Note The patient was located in the hallway this shift. The patent was interactive with peers and staff. The patient was compliant with his medication and took them whole. The patient is currently sleeping in his room.
[2021-08-13] MEDS: ALBUTEROL SULFATE 8GM INHALER. INH PRN (02:47)
[2021-08-13 06:07] VITALS: BP 154/75
[2021-08-13] MEDS: ASPIRIN ENTERIC COATED 81 MG TABLET.DR. PO SCH (08:08)
[2021-08-13] MEDS: CARVEDILOL 12.5 MG TABLET PO SCH ×2 (08:08→16:18)
[2021-08-13] MEDS: GABAPENTIN 300 MG CAPSULE. PO SCH ×2 (08:08→20:03)
[2021-08-13] MEDS: TAMSULOSIN 0.4 MG CAP.ER.24H. PO SCH (08:08)
[2021-08-13] MEDS: metFORMIN XR 500 MG TAB.ER.24H PO SCH (08:08)
[2021-08-13] MEDS: DOCUSATE SODIUM 100 MG CAPSULE PO SCH (08:08)
[2021-08-13] MEDS: IPRATROPIUM/ALBUTEROL 20/100mcg/INH INHALER. INH SCH ×4 (08:09→20:03)
[2021-08-13] MEDS: PHENYTOIN SODIUM EXTENDED 100 MG CAPSULE PO SCH ×2 (08:09→20:02)
--- NOTE | 2021-08-13 09:15 | NUR ---
Pt has been present and visible on the unit. His interactions with others have been appropriate. He is compliant with whole medications and is able to make his needs known to staff. Pt A&O to name and only, absent of SI/HI/VH/AH/delusions/pain at this time. Plan of care continues, will pass to next shift.
[2021-08-13 16:34] VITALS: BP 129/77
[2021-08-13] MEDS: DULoxetine HCL 30 MG CAPSULE.DR PO SCH (20:02)
[2021-08-13] MEDS: MELATONIN 3 MG TABLET PO SCH (20:03)
[2021-08-13] MEDS: DULoxetine HCL 20 MG CAPSULE.DR PO SCH (20:03)
[2021-08-13] MEDS: MIRTAZAPINE 15 MG TABLET PO SCH (20:03)
[2021-08-13] MEDS: ATORVASTATIN CALCIUM 10 MG TABLET. PO SCH (20:03)
--- NOTE | 2021-08-13 20:49 | NUR ---
Patient was observed sitting in the hallway visiting with female peers. When nurse approached he began rubbing his stomach and stating that he is constipated. Patient has active bowel signs on assessment, PRN miralax provided per patient insistence per order for constipation. Patient is argumentative tonight and insisting that he will not/cannot not take a shower tonight due to his "pneumonia". Patient has audible wheezing both expiratory and inspiratory. Patient eventually agreed to take a shower and was cooperative in the shower. Patient compliant with medications taken whole.
[2021-08-13] MEDS: MAG HYDROX/AL HYDROX/SIMETH 30 ML ORAL.SUSP PO PRN (21:15)
--- NOTE | 2021-08-13 22:08 | NUR ---
Patient is in the hallway and is going to female peers room to talk to her. Patient advised it is after 2200 and he needed to return to his room. Patient arguing with POLYMER SCIENTIST. Nurse told patient to return to his room, no yodeling, talking or calling out from the room as he will disturb others. patient has returned to his room at this time.
--- NOTE | 2021-08-13 22:33 | PDOC ---
Exam Note: Leo Note: This note is a late entry for 08/11/2021 covers elements not covered in my initial note. Subjective: The patient was reviewed at treatment team meeting individually in the morning on 08/11/2021 with Jennifer Vizcarra, Rivka Pearson (transition social worker), Jennifer, activity therapy and Maryjane KOWALSKI, discussed and reviewed the chart. Discussed about the patients diagnoses, current psychotropics and side effects. The patient slept 6 hours previous night. He remains somewhat confused, anxious, gets quite upset with showers. Otherwise he is singing and yodelling. He is attending groups. Also discussed with Eliud KOWALSKI in the evening. Review of Systems: Impaired ambulation in wheelchair. He has some chronic cough. No CV, , eye, ENT system symptoms on review. Mental Status Exam: The patient is oriented to himself. Speech coherent. Abstraction fair. Computation impaired. Language function intact. Attention span short. Mood and affect remains anxious. Laboratory Data: Reviewed. Impression: Major depressive disorder, recurrent. Major neurocognitive disord er, Alzheimer, vascular with delusion, depression, behavioral disturbance. Anxiety disorder unspecified. Impulse control disorder unspecified. Plan: Continue psychotropics from initial note. Assessment: Vital Signs/I&O: Vital Signs Date Time Temp Pulse Resp B/P (MAP) Pulse Ox O2 Delivery O2 Flow Rate FiO2 08/13/21 16:34 98.5 71 18 129/77 (94) 97 08/13/21 06:07 Room Air I & O 08/12/21 08/12/21 08/13/21 15:00 23:00 07:00 Intake Total 1080 ml 720 ml Balance 1080 ml 720 ml Labs: Laboratory Tests Test 08/13/21 07:37 Glucose (Fingerstick) 106 mg/dL (70-99) H Current Medications: Meds: Laboratory Tests Test 08/13/21 07:37 Glucose (Fingerstick) 106 mg/dL Current Medications Medications (Trade) Dose Ordered Sig/Aparna Route PRN Reason Start Time Stop Time Status Last Admin Dose Admin Acetaminophen (Tylenol) 650 mg PRN Q6HRS PRN PO MILD PAIN / TEMP > 100.3'F 07/06/21 00:30 Cancel Multi-Ingredient Ointment (Analgesic [place]) 1 inna PRN QID PRN TP MUSCLE PAIN 07/06/21 00:30 08/01/21 20:19 Al Hydroxide/Mg Hydroxide (Mylanta Plus Xs) 15 ml PRN AFTMEALHC PRN PO DYSPEPSIA 07/06/21 00:30 08/13/21 21:15 Magnesium Hydroxide (Milk Of Magnesia) 2,400 mg PRN QHS PRN PO 2ND CHOICE CONSTIPATION 07/06/21 00:30 07/14/21 08:13 Duloxetine HCl (Cymbalta) 20 mg HS PO 07/06/21 21:00 08/13/21 20:03 Duloxetine HCl (Cymbalta) 30 mg HS PO 07/06/21 21:00 08/13/21 20:02 Mirtazapine (Remeron) 7.5 mg HS PO 07/06/21 21:00 07/29/21 18:15 DC 07/28/21 20:09 Olanzapine (ZyPREXA ZYDIS) 2.5 mg PRN Q2HR PRN PO ANXIETY / AGITATION 07/06/21 01:15 08/02/21 23:39 Trazodone HCl (Desyrel) 50 mg PRN QHS PRN PO INSOMNIA 07/06/21 01:15 08/10/21 20:30 Acetaminophen (Tylenol) 650 mg PRN Q4HRS PRN PO PAIN 07/06/21 10:30 08/01/21 20:19 Aspirin (Aspirin Enteric Coated) 81 mg DAILY PO 07/07/21 09:00 08/13/21 08:08 Atorvastatin Calcium (Lipitor) 10 mg QHS PO 07/06/21 21:00 08/13/21 20:03 Carvedilol (Coreg) 3.125 mg BIDWMEALS PO 07/06/21 17:00 07/25/21 17:52 DC 07/25/21 17:22 Gabapentin (Neurontin) 300 mg BID PO 07/06/21 21:00 08/13/21 20:03 Metformin HCl (Glucophage Xr) 500 mg DAILYWBKFT PO 07/07/21 08:00 08/13/21 08:08 Multi-Ingredient Ointment (Analgesic [place]) 1 inna PRN QID PRN TP PAIN 07/06/21 10:30 UNV Phenytoin Sodium (Dilantin) 500 mg HS PO 07/06/21 21:00 07/07/21 22:27 DC 07/07/21 20:05 Tamsulosin HCl (Flomax) 0.4 mg DAILY PO 07/07/21 09:00 08/13/21 08:08 Polyethylene Glycol (miraLAX) 17 gm PRN DAILY PRN PO 1ST CHOICE CONSTIPATION 07/06/21 10:45 08/13/21 20:07 Non-Formulary Medication (Pravastatin Sodium ) 40 mg DAILY PO 07/07/21 09:00 UNV Phenyleph/Shark Oil/Min Oil/Petrol (Preparation H) 1 inna PRN QID PRN RC RECTAL PAIN 07/06/21 15:15 Phenytoin Sodium (Dilantin) 400 mg HS PO 07/08/21 21:00 07/11/21 23:36 DC 07/11/21 20:35 Albuterol/ Ipratropium (Combivent Respimat 20-100 Mcg) 1 puff QID INH 07/08/21 13:00 08/13/21 20:03 Docusate Sodium (Colace) 100 mg DAILY PO 07/09/21 09:00 08/13/21 08:08 Guaifenesin (Mucinex Er) 600 mg BID PO 07/08/21 21:00 08/13/21 20:03 Magnesium Hydroxide (Milk Of Magnesia) 2,400 mg PRN QHS PRN PO 2nd CHOICE CONSTIPATION 07/08/21 19:30 Cancel Phenytoin Sodium (Dilantin) 200 mg HS PO 07/12/21 21:00 08/13/21 20:02 Phenytoin Sodium (Dilantin) 100 mg DAILY PO 07/12/21 09:00 08/13/21 08:09 Carvedilol (Coreg) 6.25 mg BIDWMEALS PO 07/25/21 18:00 07/25/21 18:07 DC Carvedilol (Coreg) 6.25 mg BIDWMEALS PO 07/26/21 08:00 08/02/21 09:02 DC 08/02/21 08:33 Mirtazapine (Remeron) 15 mg QHS PO 07/29/21 21:00 08/13/21 20:03 Carvedilol (Coreg) 12.5 mg BIDWMEALS PO 08/02/21 17:00 08/13/21 16:18 Albuterol Sulfate (Ventolin Hfa Inhaler) 2 puff PRN Q4HRS PRN INH SHORTNESS OF BREATH 08/02/21 09:15 08/13/21 02:47 Melatonin (Melatonin) 3 mg QHS PO 08/05/21 21:00 08/13/21 20:03 I have reviewed the current psychotropics carefully including drug interactions. Risk benefit ratio favors no change other than as noted in my dictated progress note. 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
--- NOTE | 2021-08-13 22:33 | PDOC ---
Exam Note: Leo Note: Please also refer to the separate dictated note~for this date of service dictated separately.~Patient seen individually. Discussed the patient with Nursing staff reviewed the chart.~Reviewed interim history and current functioning. Reviewed vital signs,~Labs/ Radiology~and current medications noted below. Continue current treatment with the changes noted in the dictated addendum note Assessment: Vital Signs/I&O: Vital Signs Date Time Temp Pulse Resp B/P (MAP) Pulse Ox O2 Delivery O2 Flow Rate FiO2 08/13/21 16:34 98.5 71 18 129/77 (94) 97 08/13/21 06:07 Room Air I & O 08/12/21 08/12/21 08/13/21 15:00 23:00 07:00 Intake Total 1080 ml 720 ml Balance 1080 ml 720 ml Labs: Laboratory Tests Test 08/13/21 07:37 Glucose (Fingerstick) 106 mg/dL (70-99) H Current Medications: I have reviewed the current psychotropics carefully including drug interactions. Risk benefit ratio favors no change other than as noted in my dictated progress note. 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
[2021-08-14] MEDS: ALBUTEROL SULFATE 8GM INHALER. INH PRN ×3 (02:30→20:26)
--- NOTE | 2021-08-14 06:20 | NUR ---
Pt up from bed at 0230 demanding a coke to drink and a snack. pt also saying he cannot breathe and is dying of pneumonia. PRN albuterol inhaler given for SOB, wheezing. Unable to scan as it was given while meditech was down.
[2021-08-14 06:24] VITALS: BP 134/65
--- NOTE | 2021-08-14 06:49 | PDOC ---
Exam Note: Leo Note: This note is a late entry for 08/12/2021 covers elements not covered in my initial note. Subjective: The patient was seen individually in the evening of 08/12/2021 with Eliud KOWALSKI, discussed and reviewed the chart. The patient slept 6 hours previous night. He is compliant with medications, somewhat needy, yodelling and singing at times in the hallway this evening as I met with him. Review of Systems: Impaired ambulation with walker. No CV, , pulmonary, eye, ENT system symptoms on review. Mental Status Exam: The patient is oriented to himself. Speech coherent. Abstraction fair. Computation impaired. Language function intact. Attention span short. Mood and affect remains anxious. Laboratory Data: Reviewed. Impression: Major depressive disorder, recurrent. Major neurocognitive disorder, Alzheimer, vascular with delusion, depression, behavioral disturbance. Anxiety disorder unspecified. Impulse control disorder unspecified. Plan: Continue psychotropics from initial note. Assessment: Vital Signs/I&O: Vital Signs Date Time Temp Pulse Resp B/P (MAP) Pulse Ox O2 Delivery O2 Flow Rate FiO2 08/14/21 06:24 97.7 69 19 134/65 (88) 94 Room Air I & O 08/13/21 08/13/21 08/14/21 15:00 23:00 07:00 Intake Total 1320 ml 600 ml Balance 1320 ml 600 ml Labs: Laboratory Tests Test 08/13/21 07:37 Glucose (Fingerstick) 106 mg/dL (70-99) H Current Medications: Meds: Laboratory Tests Test 08/13/21 07:37 Glucose (Fingerstick) 106 mg/dL Current Medications Medications (Trade) Dose Ordered Sig/Aparna Route PRN Reason Start Time Stop Time Status Last Admin Dose Admin Acetaminophen (Tylenol) 650 mg PRN Q6HRS PRN PO MILD PAIN / TEMP > 100.3'F 07/06/21 00:30 Cancel Multi-Ingredient Ointment (Analgesic [place]) 1 inna PRN QID PRN TP MUSCLE PAIN 07/06/21 00:30 08/01/21 20:19 Al Hydroxide/Mg Hydroxide (Mylanta Plus Xs) 15 ml PRN AFTMEALHC PRN PO DYSPEPSIA 07/06/21 00:30 08/13/21 21:15 Magnesium Hydroxide (Milk Of Magnesia) 2,400 mg PRN QHS PRN PO 2ND CHOICE CONSTIPATION 07/06/21 00:30 07/14/21 08:13 Duloxetine HCl (Cymbalta) 20 mg HS PO 07/06/21 21:00 08/13/21 20:03 Duloxetine HCl (Cymbalta) 30 mg HS PO 07/06/21 21:00 08/13/21 20:02 Mirtazapine (Remeron) 7.5 mg HS PO 07/06/21 21:00 07/29/21 18:15 DC 07/28/21 20:09 Olanzapine (ZyPREXA ZYDIS) 2.5 mg PRN Q2HR PRN PO ANXIETY / AGITATION 07/06/21 01:15 08/02/21 23:39 Trazodone HCl (Desyrel) 50 mg PRN QHS PRN PO INSOMNIA 07/06/21 01:15 08/10/21 20:30 Acetaminophen (Tylenol) 650 mg PRN Q4HRS PRN PO PAIN 07/06/21 10:30 08/01/21 20:19 Aspirin (Aspirin Enteric Coated) 81 mg DAILY PO 07/07/21 09:00 08/13/21 08:08 Atorvastatin Calcium (Lipitor) 10 mg QHS PO 07/06/21 21:00 08/13/21 20:03 Carvedilol (Coreg) 3.125 mg BIDWMEALS PO 07/06/21 17:00 07/25/21 17:52 DC 07/25/21 17:22 Gabapentin (Neurontin) 300 mg BID PO 07/06/21 21:00 08/13/21 20:03 Metformin HCl (Glucophage Xr) 500 mg DAILYWBKFT PO 07/07/21 08:00 08/13/21 08:08 Multi-Ingredient Ointment (Analgesic [place]) 1 inna PRN QID PRN TP PAIN 07/06/21 10:30 UNV Phenytoin Sodium (Dilantin) 500 mg HS PO 07/06/21 21:00 07/07/21 22:27 DC 07/07/21 20:05 Tamsulosin HCl (Flomax) 0.4 mg DAILY PO 07/07/21 09:00 08/13/21 08:08 Polyethylene Glycol (miraLAX) 17 gm PRN DAILY PRN PO 1ST CHOICE CONSTIPATION 07/06/21 10:45 08/13/21 20:07 Non-Formulary Medication (Pravastatin Sodium ) 40 mg DAILY PO 07/07/21 09:00 UNV Phenyleph/Shark Oil/Min Oil/Petrol (Preparation H) 1 inna PRN QID PRN RC RECTAL PAIN 07/06/21 15:15 Phenytoin Sodium (Dilantin) 400 mg HS PO 07/08/21 21:00 07/11/21 23:36 DC 07/11/21 20:35 Albuterol/ Ipratropium (Combivent Respimat 20-100 Mcg) 1 puff QID INH 07/08/21 13:00 08/13/21 20:03 Docusate Sodium (Colace) 100 mg DAILY PO 07/09/21 09:00 08/13/21 08:08 Guaifenesin (Mucinex Er) 600 mg BID PO 07/08/21 21:00 08/13/21 20:03 Magnesium Hydroxide (Milk Of Magnesia) 2,400 mg PRN QHS PRN PO 2nd CHOICE CONSTIPATION 07/08/21 19:30 Cancel Phenytoin Sodium (Dilantin) 200 mg HS PO 07/12/21 21:00 08/13/21 20:02 Phenytoin Sodium (Dilantin) 100 mg DAILY PO 07/12/21 09:00 08/13/21 08:09 Carvedilol (Coreg) 6.25 mg BIDWMEALS PO 07/25/21 18:00 07/25/21 18:07 DC Carvedilol (Coreg) 6.25 mg BIDWMEALS PO 07/26/21 08:00 08/02/21 09:02 DC 08/02/21 08:33 Mirtazapine (Remeron) 15 mg QHS PO 07/29/21 21:00 08/13/21 20:03 Carvedilol (Coreg) 12.5 mg BIDWMEALS PO 08/02/21 17:00 08/13/21 16:18 Albuterol Sulfate (Ventolin Hfa Inhaler) 2 puff PRN Q4HRS PRN INH SHORTNESS OF BREATH 08/02/21 09:15 08/14/21 02:30 Melatonin (Melatonin) 3 mg QHS PO 08/05/21 21:00 08/13/21 20:03 I have reviewed the current psychotropics carefully including drug interactions. Risk benefit ratio favors no change other than as noted in my dictated progress note. 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
[2021-08-14] MEDS: PHENYTOIN SODIUM EXTENDED 100 MG CAPSULE PO SCH ×2 (08:21→20:11)
[2021-08-14] MEDS: DOCUSATE SODIUM 100 MG CAPSULE PO SCH (08:21)
[2021-08-14] MEDS: GABAPENTIN 300 MG CAPSULE. PO SCH ×2 (08:21→20:12)
[2021-08-14] MEDS: TAMSULOSIN 0.4 MG CAP.ER.24H. PO SCH (08:22)
[2021-08-14] MEDS: ASPIRIN ENTERIC COATED 81 MG TABLET.DR. PO SCH (08:22)
[2021-08-14] MEDS: IPRATROPIUM/ALBUTEROL 20/100mcg/INH INHALER. INH SCH ×4 (08:22→20:25)
[2021-08-14] MEDS: metFORMIN XR 500 MG TAB.ER.24H PO SCH (08:22)
[2021-08-14] MEDS: CARVEDILOL 12.5 MG TABLET PO SCH ×2 (08:22→17:34)
[2021-08-14 16:36] VITALS: BP 122/71
--- NOTE | 2021-08-14 18:21 | NUR ---
Patient has been disorganized, calm, compliant, and social with peers during this shift. He spent most of his time in the hallway or day room being social with peers. Patient complained of shortness of breath before breakfast, prn medication provided per eMAR. Lung sounds include inspiratory and expiratory wheezing. He has coughing fits that sound forced as he has difficulty clearing secretions. Will continue to monitor and report to oncoming staff.
[2021-08-14] MEDS: DULoxetine HCL 30 MG CAPSULE.DR PO SCH (20:12)
[2021-08-14] MEDS: MELATONIN 3 MG TABLET PO SCH (20:12)
[2021-08-14] MEDS: MIRTAZAPINE 15 MG TABLET PO SCH (20:12)
[2021-08-14] MEDS: DULoxetine HCL 20 MG CAPSULE.DR PO SCH (20:12)
[2021-08-14] MEDS: ATORVASTATIN CALCIUM 10 MG TABLET. PO SCH (20:13)
--- NOTE | 2021-08-14 22:10 | PDOC ---
Exam Note: Leo Note: Please also refer to the separate dictated note~for this date of service dictated separately.~Patient seen individually. Discussed the patient with Nursing staff reviewed the chart.~Reviewed interim history and current functioning. Reviewed vital signs,~Labs/ Radiology~and current medications noted below. Continue current treatment with the changes noted in the dictated addendum note Assessment: Vital Signs/I&O: Vital Signs Date Time Temp Pulse Resp B/P (MAP) Pulse Ox O2 Delivery O2 Flow Rate FiO2 08/14/21 17:34 92 122/71 08/14/21 16:36 98.7 16 93 08/14/21 06:24 Room Air I & O 08/13/21 08/13/21 08/14/21 15:00 23:00 07:00 Intake Total 1320 ml 600 ml Balance 1320 ml 600 ml Labs: Laboratory Tests Test 08/14/21 07:29 Glucose (Fingerstick) 123 mg/dL (70-99) H Current Medications: Meds: Laboratory Tests Test 08/14/21 07:29 Glucose (Fingerstick) 123 mg/dL Current Medications Medications (Trade) Dose Ordered Sig/Aparna Route PRN Reason Start Time Stop Time Status Last Admin Dose Admin Acetaminophen (Tylenol) 650 mg PRN Q6HRS PRN PO MILD PAIN / TEMP > 100.3'F 07/06/21 00:30 Cancel Multi-Ingredient Ointment (Analgesic [place]) 1 inna PRN QID PRN TP MUSCLE PAIN 07/06/21 00:30 08/01/21 20:19 Al Hydroxide/Mg Hydroxide (Mylanta Plus Xs) 15 ml PRN AFTMEALHC PRN PO DYSPEPSIA 07/06/21 00:30 08/13/21 21:15 Magnesium Hydroxide (Milk Of Magnesia) 2,400 mg PRN QHS PRN PO 2ND CHOICE CONSTIPATION 07/06/21 00:30 07/14/21 08:13 Duloxetine HCl (Cymbalta) 20 mg HS PO 07/06/21 21:00 08/14/21 20:12 Duloxetine HCl (Cymbalta) 30 mg HS PO 07/06/21 21:00 08/14/21 20:12 Mirtazapine (Remeron) 7.5 mg HS PO 07/06/21 21:00 07/29/21 18:15 DC 07/28/21 20:09 Olanzapine (ZyPREXA ZYDIS) 2.5 mg PRN Q2HR PRN PO ANXIETY / AGITATION 07/06/21 01:15 08/02/21 23:39 Trazodone HCl (Desyrel) 50 mg PRN QHS PRN PO INSOMNIA 07/06/21 01:15 08/10/21 20:30 Acetaminophen (Tylenol) 650 mg PRN Q4HRS PRN PO PAIN 07/06/21 10:30 08/01/21 20:19 Aspirin (Aspirin Enteric Coated) 81 mg DAILY PO 07/07/21 09:00 08/14/21 08:22 Atorvastatin Calcium (Lipitor) 10 mg QHS PO 07/06/21 21:00 08/14/21 20:13 Carvedilol (Coreg) 3.125 mg BIDWMEALS PO 07/06/21 17:00 07/25/21 17:52 DC 07/25/21 17:22 Gabapentin (Neurontin) 300 mg BID PO 07/06/21 21:00 08/14/21 20:12 Metformin HCl (Glucophage Xr) 500 mg DAILYWBKFT PO 07/07/21 08:00 08/14/21 08:22 Multi-Ingredient Ointment (Analgesic [place]) 1 inna PRN QID PRN TP PAIN 07/06/21 10:30 UNV Phenytoin Sodium (Dilantin) 500 mg HS PO 07/06/21 21:00 07/07/21 22:27 DC 07/07/21 20:05 Tamsulosin HCl (Flomax) 0.4 mg DAILY PO 07/07/21 09:00 08/14/21 08:22 Polyethylene Glycol (miraLAX) 17 gm PRN DAILY PRN PO 1ST CHOICE CONSTIPATION 07/06/21 10:45 08/13/21 20:07 Non-Formulary Medication (Pravastatin Sodium ) 40 mg DAILY PO 07/07/21 09:00 UNV Phenyleph/Shark Oil/Min Oil/Petrol (Preparation H) 1 inna PRN QID PRN RC RECTAL PAIN 07/06/21 15:15 Phenytoin Sodium (Dilantin) 400 mg HS PO 07/08/21 21:00 07/11/21 23:36 DC 07/11/21 20:35 Albuterol/ Ipratropium (Combivent Respimat 20-100 Mcg) 1 puff QID INH 07/08/21 13:00 08/14/21 20:25 Docusate Sodium (Colace) 100 mg DAILY PO 07/09/21 09:00 08/14/21 08:21 Guaifenesin (Mucinex Er) 600 mg BID PO 07/08/21 21:00 08/14/21 20:12 Magnesium Hydroxide (Milk Of Magnesia) 2,400 mg PRN QHS PRN PO 2nd CHOICE CONSTIPATION 07/08/21 19:30 Cancel Phenytoin Sodium (Dilantin) 200 mg HS PO 07/12/21 21:00 08/14/21 20:11 Phenytoin Sodium (Dilantin) 100 mg DAILY PO 07/12/21 09:00 08/14/21 08:21 Carvedilol (Coreg) 6.25 mg BIDWMEALS PO 07/25/21 18:00 07/25/21 18:07 DC Carvedilol (Coreg) 6.25 mg BIDWMEALS PO 07/26/21 08:00 08/02/21 09:02 DC 08/02/21 08:33 Mirtazapine (Remeron) 15 mg QHS PO 07/29/21 21:00 08/14/21 20:12 Carvedilol (Coreg) 12.5 mg BIDWMEALS PO 08/02/21 17:00 08/14/21 17:34 Albuterol Sulfate (Ventolin Hfa Inhaler) 2 puff PRN Q4HRS PRN INH SHORTNESS OF BREATH 08/02/21 09:15 08/14/21 20:26 Melatonin (Melatonin) 3 mg QHS PO 08/05/21 21:00 08/14/21 20:12 I have reviewed the current psychotropics carefully including drug interactions. Risk benefit ratio favors no change other than as noted in my dictated progress note. 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
[2021-08-15] VITALS: BP 170/61
[2021-08-15] MEDS ORDERED: oxyCODONE/APAP 10/325 1 TAB TABLET PO PRN (00:15)
[2021-08-15] MEDS: MAG HYDROX/AL HYDROX/SIMETH 30 ML ORAL.SUSP PO PRN (00:24)
[2021-08-15] MEDS: ALBUTEROL SULFATE 8GM INHALER. INH PRN (00:24)
[2021-08-15 06:12] VITALS: BP 161/69
--- NOTE | 2021-08-15 06:21 | PDOC ---
Exam Note: Leo Note: This note is a late entry for 08/13/2021 covers elements not covered in my initial note. Subjective: The patient was seen individually in the evening of 08/13/2021 with Maryjane KOWALSKI, discussed and reviewed the chart. The patient slept 6 hours previous night. He has been somewhat withdrawn, calm. He does have short-term memory deficits. Review of Systems: Impaired ambulation with walker. No CV, , pulmonary, eye, ENT system symptoms on review. Mental Status Exam: The patient is oriented to himself and situation. He knew [place] but was unable to remember the name of Yoan. He was frequently referring to me as father. I corrected him on who I was and this is reflective of his short-term memory deficits. He was otherwise pleasant, cooperative, has befriended one of the other female patients on the unit. Speech coherent. Abstraction fair. Computation impaired. Language function intact. Attention span short. Mood and affect remains withdrawn. Laboratory Data: Reviewed. Impression: Major depressive disorder, recurrent. Major neurocognitive disorder, Alzheimer, vascular with delusion, depression, behavioral disturbance. Anxiety disorder unspecified. Impulse control disorder unspecified. Plan: Continue psychotropics from initial note. Assessment: Vital Signs/I&O: Vital Signs Date Time Temp Pulse Resp B/P (MAP) Pulse Ox O2 Delivery O2 Flow Rate FiO2 08/15/21 06:12 97.9 86 20 161/69 (99) 97 08/14/21 06:24 Room Air I & O 08/14/21 08/14/21 08/15/21 15:00 23:00 07:00 Intake Total 1080 ml 720 ml Balance 1080 ml 720 ml Labs: Laboratory Tests Test 08/14/21 07:29 08/15/21 00:25 Glucose (Fingerstick) 123 mg/dL (70-99) H Creatine Kinase 23 U/L (39-308) L Troponin I Quantitative < 0.017 ng/mL (0-0.055) Current Medications: Meds: Laboratory Tests Test 08/14/21 07:29 08/15/21 00:25 Glucose (Fingerstick) 123 mg/dL Creatine Kinase 23 U/L Troponin I Quantitative < 0.017 ng/mL Current Medications Medications (Trade) Dose Ordered Sig/Aparna Route PRN Reason Start Time Stop Time Status Last Admin Dose Admin Acetaminophen (Tylenol) 650 mg PRN Q6HRS PRN PO MILD PAIN / TEMP > 100.3'F 07/06/21 00:30 Cancel Multi-Ingredient Ointment (Analgesic [place]) 1 inna PRN QID PRN TP MUSCLE PAIN 07/06/21 00:30 08/01/21 20:19 Al Hydroxide/Mg Hydroxide (Mylanta Plus Xs) 15 ml PRN AFTMEALHC PRN PO DYSPEPSIA 07/06/21 00:30 08/15/21 00:24 Magnesium Hydroxide (Milk Of Magnesia) 2,400 mg PRN QHS PRN PO 2ND CHOICE CONSTIPATION 07/06/21 00:30 07/14/21 08:13 Duloxetine HCl (Cymbalta) 20 mg HS PO 07/06/21 21:00 08/14/21 20:12 Duloxetine HCl (Cymbalta) 30 mg HS PO 07/06/21 21:00 08/14/21 20:12 Mirtazapine (Remeron) 7.5 mg HS PO 07/06/21 21:00 07/29/21 18:15 DC 07/28/21 20:09 Olanzapine (ZyPREXA ZYDIS) 2.5 mg PRN Q2HR PRN PO ANXIETY / AGITATION 07/06/21 01:15 08/15/21 00:24 Trazodone HCl (Desyrel) 50 mg PRN QHS PRN PO INSOMNIA 07/06/21 01:15 08/10/21 20:30 Acetaminophen (Tylenol) 650 mg PRN Q4HRS PRN PO PAIN 07/06/21 10:30 08/01/21 20:19 Aspirin (Aspirin Enteric Coated) 81 mg DAILY PO 07/07/21 09:00 08/14/21 08:22 Atorvastatin Calcium (Lipitor) 10 mg QHS PO 07/06/21 21:00 08/14/21 20:13 Carvedilol (Coreg) 3.125 mg BIDWMEALS PO 07/06/21 17:00 07/25/21 17:52 DC 07/25/21 17:22 Gabapentin (Neurontin) 300 mg BID PO 07/06/21 21:00 08/14/21 20:12 Metformin HCl (Glucophage Xr) 500 mg DAILYWBKFT PO 07/07/21 08:00 08/14/21 08:22 Multi-Ingredient Ointment (Analgesic [place]) 1 inna PRN QID PRN TP PAIN 07/06/21 10:30 UNV Phenytoin Sodium (Dilantin) 500 mg HS PO 07/06/21 21:00 07/07/21 22:27 DC 07/07/21 20:05 Tamsulosin HCl (Flomax) 0.4 mg DAILY PO 07/07/21 09:00 08/14/21 08:22 Polyethylene Glycol (miraLAX) 17 gm PRN DAILY PRN PO 1ST CHOICE CONSTIPATION 07/06/21 10:45 08/13/21 20:07 Non-Formulary Medication (Pravastatin Sodium ) 40 mg DAILY PO 07/07/21 09:00 UNV Phenyleph/Shark Oil/Min Oil/Petrol (Preparation H) 1 inna PRN QID PRN RC RECTAL PAIN 07/06/21 15:15 Phenytoin Sodium (Dilantin) 400 mg HS PO 07/08/21 21:00 07/11/21 23:36 DC 07/11/21 20:35 Albuterol/ Ipratropium (Combivent Respimat 20-100 Mcg) 1 puff QID INH 07/08/21 13:00 08/14/21 20:25 Docusate Sodium (Colace) 100 mg DAILY PO 07/09/21 09:00 08/14/21 08:21 Guaifenesin (Mucinex Er) 600 mg BID PO 07/08/21 21:00 08/14/21 20:12 Magnesium Hydroxide (Milk Of Magnesia) 2,400 mg PRN QHS PRN PO 2nd CHOICE CONSTIPATION 07/08/21 19:30 Cancel Phenytoin Sodium (Dilantin) 200 mg HS PO 07/12/21 21:00 08/14/21 20:11 Phenytoin Sodium (Dilantin) 100 mg DAILY PO 07/12/21 09:00 08/14/21 08:21 Carvedilol (Coreg) 6.25 mg BIDWMEALS PO 07/25/21 18:00 07/25/21 18:07 DC Carvedilol (Coreg) 6.25 mg BIDWMEALS PO 07/26/21 08:00 08/02/21 09:02 DC 08/02/21 08:33 Mirtazapine (Remeron) 15 mg QHS PO 07/29/21 21:00 08/14/21 20:12 Carvedilol (Coreg) 12.5 mg BIDWMEALS PO 08/02/21 17:00 08/14/21 17:34 Albuterol Sulfate (Ventolin Hfa Inhaler) 2 puff PRN Q4HRS PRN INH SHORTNESS OF BREATH 08/02/21 09:15 08/15/21 00:24 Melatonin (Melatonin) 3 mg QHS PO 08/05/21 21:00 08/14/21 20:12 Oxycodone/ Acetaminophen (Percocet 10/325) 1 tab PRN Q6HRS PRN PO PAIN 08/15/21 00:15 08/15/21 00:23 Current Medications Medications (Trade) Dose Ordered Sig/Aparna Route PRN Reason Start Time Stop Time Status Last Admin Dose Admin Oxycodone/ Acetaminophen (Percocet 10/325) 1 tab PRN Q6HRS PRN PO PAIN 08/15/21 00:15 08/15/21 00:23 I have reviewed the current psychotropics carefully including drug interactions. Risk benefit ratio favors no change other than as noted in my dictated progress note. 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
--- NOTE | 2021-08-15 06:38 | PDOC ---
Exam Note: Leo Note: This note is a late entry for 08/14/2021 covers elements not covered in my initial note. Subjective: The patient was seen individually in the evening of 08/14/2021 with Jeanne KOWALSKI, discussed and reviewed the chart. The patient slept 4-3/4 hours previous night. Overall he has been cooperative, somewhat withdrawn. He does have some short-term memory deficits. He tends to cough quite loudly and yodels in the evening. Review of Systems: Impaired ambulation with walker. No CV, , pulmonary, eye, ENT system symptoms on review. Mental Status Exam: The patient is oriented to himself. I met with him in his room. He was pleasant, cooperative, wanting to discuss discharge plans which we did. Speech coherent. Abstraction fair. Computation impaired. Language function intact. Attention span short. Mood and affect remains withdrawn. He does have some short-term memory deficits. No suicidal or homicidal ideation. Laboratory Data: Reviewed. Impression: Major depressive disorder, recurrent. Major neurocognitive disorder, Alzheimer, vascular with delusion, depression, behavioral disturbance. Anxiety disorder unspecified. Impulse control disorder unspecified. Plan: Continue psychotropics from initial note. Assessment: Vital Signs/I&O: Vital Signs Date Time Temp Pulse Resp B/P (MAP) Pulse Ox O2 Delivery O2 Flow Rate FiO2 08/15/21 06:12 97.9 86 20 161/69 (99) 97 08/14/21 06:24 Room Air I & O 08/14/21 08/14/21 08/15/21 15:00 23:00 07:00 Intake Total 1080 ml 720 ml Balance 1080 ml 720 ml Labs: Laboratory Tests Test 08/14/21 07:29 08/15/21 00:25 Glucose (Fingerstick) 123 mg/dL (70-99) H Creatine Kinase 23 U/L (39-308) L Troponin I Quantitative < 0.017 ng/mL (0-0.055) Current Medications: Meds: Laboratory Tests Test 08/14/21 07:29 08/15/21 00:25 Glucose (Fingerstick) 123 mg/dL Creatine Kinase 23 U/L Troponin I Quantitative < 0.017 ng/mL Current Medications Medications (Trade) Dose Ordered Sig/Aparna Route PRN Reason Start Time Stop Time Status Last Admin Dose Admin Acetaminophen (Tylenol) 650 mg PRN Q6HRS PRN PO MILD PAIN / TEMP > 100.3'F 07/06/21 00:30 Cancel Multi-Ingredient Ointment (Analgesic [place]) 1 inna PRN QID PRN TP MUSCLE PAIN 07/06/21 00:30 08/01/21 20:19 Al Hydroxide/Mg Hydroxide (Mylanta Plus Xs) 15 ml PRN AFTMEALHC PRN PO DYSPEPSIA 07/06/21 00:30 08/15/21 00:24 Magnesium Hydroxide (Milk Of Magnesia) 2,400 mg PRN QHS PRN PO 2ND CHOICE CONSTIPATION 07/06/21 00:30 07/14/21 08:13 Duloxetine HCl (Cymbalta) 20 mg HS PO 07/06/21 21:00 08/14/21 20:12 Duloxetine HCl (Cymbalta) 30 mg HS PO 07/06/21 21:00 08/14/21 20:12 Mirtazapine (Remeron) 7.5 mg HS PO 07/06/21 21:00 07/29/21 18:15 DC 07/28/21 20:09 Olanzapine (ZyPREXA ZYDIS) 2.5 mg PRN Q2HR PRN PO ANXIETY / AGITATION 07/06/21 01:15 08/15/21 00:24 Trazodone HCl (Desyrel) 50 mg PRN QHS PRN PO INSOMNIA 07/06/21 01:15 08/10/21 20:30 Acetaminophen (Tylenol) 650 mg PRN Q4HRS PRN PO PAIN 07/06/21 10:30 08/01/21 20:19 Aspirin (Aspirin Enteric Coated) 81 mg DAILY PO 07/07/21 09:00 08/14/21 08:22 Atorvastatin Calcium (Lipitor) 10 mg QHS PO 07/06/21 21:00 08/14/21 20:13 Carvedilol (Coreg) 3.125 mg BIDWMEALS PO 07/06/21 17:00 07/25/21 17:52 DC 07/25/21 17:22 Gabapentin (Neurontin) 300 mg BID PO 07/06/21 21:00 08/14/21 20:12 Metformin HCl (Glucophage Xr) 500 mg DAILYWBKFT PO 07/07/21 08:00 08/14/21 08:22 Multi-Ingredient Ointment (Analgesic [place]) 1 inna PRN QID PRN TP PAIN 07/06/21 10:30 UNV Phenytoin Sodium (Dilantin) 500 mg HS PO 07/06/21 21:00 07/07/21 22:27 DC 07/07/21 20:05 Tamsulosin HCl (Flomax) 0.4 mg DAILY PO 07/07/21 09:00 08/14/21 08:22 Polyethylene Glycol (miraLAX) 17 gm PRN DAILY PRN PO 1ST CHOICE CONSTIPATION 07/06/21 10:45 08/13/21 20:07 Non-Formulary Medication (Pravastatin Sodium ) 40 mg DAILY PO 07/07/21 09:00 UNV Phenyleph/Shark Oil/Min Oil/Petrol (Preparation H) 1 inna PRN QID PRN RC RECTAL PAIN 07/06/21 15:15 Phenytoin Sodium (Dilantin) 400 mg HS PO 07/08/21 21:00 07/11/21 23:36 DC 07/11/21 20:35 Albuterol/ Ipratropium (Combivent Respimat 20-100 Mcg) 1 puff QID INH 07/08/21 13:00 08/14/21 20:25 Docusate Sodium (Colace) 100 mg DAILY PO 07/09/21 09:00 08/14/21 08:21 Guaifenesin (Mucinex Er) 600 mg BID PO 07/08/21 21:00 08/14/21 20:12 Magnesium Hydroxide (Milk Of Magnesia) 2,400 mg PRN QHS PRN PO 2nd CHOICE CONSTIPATION 07/08/21 19:30 Cancel Phenytoin Sodium (Dilantin) 200 mg HS PO 07/12/21 21:00 08/14/21 20:11 Phenytoin Sodium (Dilantin) 100 mg DAILY PO 07/12/21 09:00 08/14/21 08:21 Carvedilol (Coreg) 6.25 mg BIDWMEALS PO 07/25/21 18:00 07/25/21 18:07 DC Carvedilol (Coreg) 6.25 mg BIDWMEALS PO 07/26/21 08:00 08/02/21 09:02 DC 08/02/21 08:33 Mirtazapine (Remeron) 15 mg QHS PO 07/29/21 21:00 08/14/21 20:12 Carvedilol (Coreg) 12.5 mg BIDWMEALS PO 08/02/21 17:00 08/14/21 17:34 Albuterol Sulfate (Ventolin Hfa Inhaler) 2 puff PRN Q4HRS PRN INH SHORTNESS OF BREATH 08/02/21 09:15 08/15/21 00:24 Melatonin (Melatonin) 3 mg QHS PO 08/05/21 21:00 08/14/21 20:12 Oxycodone/ Acetaminophen (Percocet 10/325) 1 tab PRN Q6HRS PRN PO PAIN 08/15/21 00:15 08/15/21 00:23 Current Medications Medications (Trade) Dose Ordered Sig/Aparna Route PRN Reason Start Time Stop Time Status Last Admin Dose Admin Oxycodone/ Acetaminophen (Percocet 10/325) 1 tab PRN Q6HRS PRN PO PAIN 08/15/21 00:15 08/15/21 00:23 I have reviewed the current psychotropics carefully including drug interactions. Risk benefit ratio favors no change other than as noted in my dictated progress note. 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
[2021-08-15] MEDS: TAMSULOSIN 0.4 MG CAP.ER.24H. PO SCH (08:12)
[2021-08-15] MEDS: PHENYTOIN SODIUM EXTENDED 100 MG CAPSULE PO SCH ×2 (08:12→20:48)
[2021-08-15] MEDS: GABAPENTIN 300 MG CAPSULE. PO SCH ×2 (08:12→20:49)
[2021-08-15] MEDS: DOCUSATE SODIUM 100 MG CAPSULE PO SCH (08:13)
[2021-08-15] MEDS: IPRATROPIUM/ALBUTEROL 20/100mcg/INH INHALER. INH SCH ×4 (08:13→20:49)
[2021-08-15] MEDS: CARVEDILOL 12.5 MG TABLET PO SCH ×2 (08:13→17:34)
[2021-08-15] MEDS: metFORMIN XR 500 MG TAB.ER.24H PO SCH (08:13)
[2021-08-15] MEDS: ASPIRIN ENTERIC COATED 81 MG TABLET.DR. PO SCH (08:13)
[2021-08-15 16:00] VITALS: BP 117/67
--- NOTE | 2021-08-15 18:30 | NUR ---
Patient has been disorganized, calm, compliant, and social with peers during this shift. He spent most of his time in the hallway or day room being social with peers. Patient complained of shortness of breath after dinner, prn medication provided per eMAR. He has coughing fits that sound forced as he has difficulty clearing secretions. Will continue to monitor and report to oncoming staff.
[2021-08-15] MEDS: DULoxetine HCL 20 MG CAPSULE.DR PO SCH (20:48)
[2021-08-15] MEDS: ATORVASTATIN CALCIUM 10 MG TABLET. PO SCH (20:48)
[2021-08-15] MEDS: traZODone 50 MG TABLET. PO PRN (20:48)
[2021-08-15] MEDS: MELATONIN 3 MG TABLET PO SCH (20:49)
[2021-08-15] MEDS: MIRTAZAPINE 15 MG TABLET PO SCH (20:49)
[2021-08-15] MEDS: DULoxetine HCL 30 MG CAPSULE.DR PO SCH (20:49)
--- NOTE | 2021-08-15 21:55 | PDOC ---
Exam Note: Leo Note: Please also refer to the separate dictated note~for this date of service dictated separately.~Patient seen individually. Discussed the patient with Nursing staff reviewed the chart.~Reviewed interim history and current functioning. Reviewed vital signs,~Labs/ Radiology~and current medications noted below. Continue current treatment with the changes noted in the dictated addendum note Assessment: Vital Signs/I&O: Vital Signs Date Time Temp Pulse Resp B/P (MAP) Pulse Ox O2 Delivery O2 Flow Rate FiO2 08/15/21 17:34 67 117/67 08/15/21 16:00 97.4 19 93 08/14/21 06:24 Room Air I & O 08/14/21 08/14/21 08/15/21 15:00 23:00 07:00 Intake Total 1080 ml 720 ml Balance 1080 ml 720 ml Labs: Laboratory Tests Test 08/15/21 00:25 08/15/21 07:43 Creatine Kinase 23 U/L (39-308) L Troponin I Quantitative < 0.017 ng/mL (0-0.055) Glucose (Fingerstick) 112 mg/dL (70-99) H Current Medications: Meds: Laboratory Tests Test 08/15/21 00:25 08/15/21 07:43 Creatine Kinase 23 U/L Troponin I Quantitative < 0.017 ng/mL Glucose (Fingerstick) 112 mg/dL Current Medications Medications (Trade) Dose Ordered Sig/Aparna Route PRN Reason Start Time Stop Time Status Last Admin Dose Admin Acetaminophen (Tylenol) 650 mg PRN Q6HRS PRN PO MILD PAIN / TEMP > 100.3'F 07/06/21 00:30 Cancel Multi-Ingredient Ointment (Analgesic [place]) 1 inna PRN QID PRN TP MUSCLE PAIN 07/06/21 00:30 08/01/21 20:19 Al Hydroxide/Mg Hydroxide (Mylanta Plus Xs) 15 ml PRN AFTMEALHC PRN PO DYSPEPSIA 07/06/21 00:30 08/15/21 00:24 Magnesium Hydroxide (Milk Of Magnesia) 2,400 mg PRN QHS PRN PO 2ND CHOICE CONSTIPATION 07/06/21 00:30 07/14/21 08:13 Duloxetine HCl (Cymbalta) 20 mg HS PO 07/06/21 21:00 08/15/21 20:48 Duloxetine HCl (Cymbalta) 30 mg HS PO 07/06/21 21:00 08/15/21 20:49 Mirtazapine (Remeron) 7.5 mg HS PO 07/06/21 21:00 07/29/21 18:15 DC 07/28/21 20:09 Olanzapine (ZyPREXA ZYDIS) 2.5 mg PRN Q2HR PRN PO ANXIETY / AGITATION 07/06/21 01:15 08/15/21 00:24 Trazodone HCl (Desyrel) 50 mg PRN QHS PRN PO INSOMNIA 07/06/21 01:15 08/15/21 20:48 Acetaminophen (Tylenol) 650 mg PRN Q4HRS PRN PO MILD PAIN 1-3 07/06/21 10:30 08/01/21 20:19 Aspirin (Aspirin Enteric Coated) 81 mg DAILY PO 07/07/21 09:00 08/15/21 08:13 Atorvastatin Calcium (Lipitor) 10 mg QHS PO 07/06/21 21:00 08/15/21 20:48 Carvedilol (Coreg) 3.125 mg BIDWMEALS PO 07/06/21 17:00 07/25/21 17:52 DC 07/25/21 17:22 Gabapentin (Neurontin) 300 mg BID PO 07/06/21 21:00 08/15/21 20:49 Metformin HCl (Glucophage Xr) 500 mg DAILYWBKFT PO 07/07/21 08:00 08/15/21 08:13 Multi-Ingredient Ointment (Analgesic [place]) 1 inna PRN QID PRN TP PAIN 07/06/21 10:30 UNV Phenytoin Sodium (Dilantin) 500 mg HS PO 07/06/21 21:00 07/07/21 22:27 DC 07/07/21 20:05 Tamsulosin HCl (Flomax) 0.4 mg DAILY PO 07/07/21 09:00 08/15/21 08:12 Polyethylene Glycol (miraLAX) 17 gm PRN DAILY PRN PO 1ST CHOICE CONSTIPATION 07/06/21 10:45 08/13/21 20:07 Non-Formulary Medication (Pravastatin Sodium ) 40 mg DAILY PO 07/07/21 09:00 UNV Phenyleph/Shark Oil/Min Oil/Petrol (Preparation H) 1 inna PRN QID PRN RC RECTAL PAIN 07/06/21 15:15 Phenytoin Sodium (Dilantin) 400 mg HS PO 07/08/21 21:00 07/11/21 23:36 DC 07/11/21 20:35 Albuterol/ Ipratropium (Combivent Respimat 20-100 Mcg) 1 puff QID INH 07/08/21 13:00 08/15/21 20:49 Docusate Sodium (Colace) 100 mg DAILY PO 07/09/21 09:00 08/15/21 08:13 Guaifenesin (Mucinex Er) 600 mg BID PO 07/08/21 21:00 08/15/21 20:48 Magnesium Hydroxide (Milk Of Magnesia) 2,400 mg PRN QHS PRN PO 2nd CHOICE CONSTIPATION 07/08/21 19:30 Cancel Phenytoin Sodium (Dilantin) 200 mg HS PO 07/12/21 21:00 08/15/21 20:48 Phenytoin Sodium (Dilantin) 100 mg DAILY PO 07/12/21 09:00 08/15/21 08:12 Carvedilol (Coreg) 6.25 mg BIDWMEALS PO 07/25/21 18:00 07/25/21 18:07 DC Carvedilol (Coreg) 6.25 mg BIDWMEALS PO 07/26/21 08:00 08/02/21 09:02 DC 08/02/21 08:33 Mirtazapine (Remeron) 15 mg QHS PO 07/29/21 21:00 08/15/21 20:49 Carvedilol (Coreg) 12.5 mg BIDWMEALS PO 08/02/21 17:00 08/15/21 17:34 Albuterol Sulfate (Ventolin Hfa Inhaler) 2 puff PRN Q4HRS PRN INH SHORTNESS OF BREATH 08/02/21 09:15 08/15/21 00:24 Melatonin (Melatonin) 3 mg QHS PO 08/05/21 21:00 08/15/21 20:49 Oxycodone/ Acetaminophen (Percocet 10/325) 1 tab PRN Q6HRS PRN PO MOD-SEV PAIN 08/15/21 00:15 08/15/21 00:23 Current Medications Medications (Trade) Dose Ordered Sig/Aparna Route PRN Reason Start Time Stop Time Status Last Admin Dose Admin Oxycodone/ Acetaminophen (Percocet 10/325) 1 tab PRN Q6HRS PRN PO MOD-SEV PAIN 08/15/21 00:15 08/15/21 00:23 I have reviewed the current psychotropics carefully including drug interactions. Risk benefit ratio favors no change other than as noted in my dictated progress note. 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
--- NOTE | 2021-08-15 21:57 | NUR ---
Patient compliant with medications taken whole. Patient cooperative with staff, he took shower without complaining tonight. Patient continues to have audible wheezing, he has history of COPD and recent COVID pneumonia. He gets scheduled inhaler with HS medications and has PRN inhaler as well. Patient has had no adverse behaviors thus far this shift. Will continue to monitor.
[2021-08-16] MEDS: ALBUTEROL SULFATE 8GM INHALER. INH PRN ×3 (01:34→20:21)
--- NOTE | 2021-08-16 01:39 | NUR ---
Patient up, in hallway and coughing forcefully. He states he cannot breathe and "has pneumonia". Education provided about COPD and COVID/Pneumonia after effects. PRN albuterol inhaler given for SOA per order. Will continue to monitor.
--- NOTE | 2021-08-16 06:14 | NUR ---
Patient is in his room distressed, stating he has lost his hospital id band, it broke and fell off. Patients BP elevated this morning, patient breathing heavy and wheezing. PRN albuterol given for SOA and wheezing per order. New hospital id band printed and put on to patients left wrist. Patient is agitated this morning and insisting that he cannot dress himself. Will continue to monitor.
[2021-08-16 06:37] VITALS: BP 132/78
[2021-08-16] MEDS: IPRATROPIUM/ALBUTEROL 20/100mcg/INH INHALER. INH SCH ×4 (09:50→20:10)
[2021-08-16] MEDS: metFORMIN XR 500 MG TAB.ER.24H PO SCH (09:51)
[2021-08-16] MEDS: ASPIRIN ENTERIC COATED 81 MG TABLET.DR. PO SCH (09:51)
[2021-08-16] MEDS: CARVEDILOL 12.5 MG TABLET PO SCH ×2 (09:51→17:19)
[2021-08-16] MEDS: DOCUSATE SODIUM 100 MG CAPSULE PO SCH (09:51)
[2021-08-16] MEDS: PHENYTOIN SODIUM EXTENDED 100 MG CAPSULE PO SCH ×2 (09:51→20:11)
[2021-08-16] MEDS: TAMSULOSIN 0.4 MG CAP.ER.24H. PO SCH (09:51)
[2021-08-16] MEDS: GABAPENTIN 300 MG CAPSULE. PO SCH ×2 (09:51→20:10)
[2021-08-16 15:59] VITALS: BP 115/62
--- NOTE | 2021-08-16 18:25 | NUR ---
Patient has been social, calm, compliant, and disorganized during this shift. He slept in and skipped breakfast, then had a prolonged, forced coughing fit in his room. Patient is still helpless at times and occasionally coerces peers into pushing his wheelchair for him. Will continue to monitor and report to oncoming staff.
[2021-08-16] MEDS: MELATONIN 3 MG TABLET PO SCH (20:10)
[2021-08-16] MEDS: ATORVASTATIN CALCIUM 10 MG TABLET. PO SCH (20:11)
[2021-08-16] MEDS: DULoxetine HCL 30 MG CAPSULE.DR PO SCH (20:11)
[2021-08-16] MEDS: MIRTAZAPINE 15 MG TABLET PO SCH (20:12)
[2021-08-16] MEDS: DULoxetine HCL 20 MG CAPSULE.DR PO SCH (20:12)
--- NOTE | 2021-08-17 00:03 | NUR ---
Patient in day room watching television with peers. He continues to say that he is "dying" despite his vital signs being in the normal range and reassurance from staff. Patient has audible wheezing after he forces himself to cough. PRN albuterol inhaler given at 2020 for SOA and wheezing per patient request. No adverse behaviors noted this shift.
[2021-08-17] MEDS: ALBUTEROL SULFATE 8GM INHALER. INH PRN ×2 (01:59→14:31)
[2021-08-17 06:24] VITALS: BP 163/76
[2021-08-17] MEDS: DOCUSATE SODIUM 100 MG CAPSULE PO SCH (08:38)
[2021-08-17] MEDS: PHENYTOIN SODIUM EXTENDED 100 MG CAPSULE PO SCH ×2 (08:38→20:05)
[2021-08-17] MEDS: TAMSULOSIN 0.4 MG CAP.ER.24H. PO SCH (08:38)
[2021-08-17] MEDS: ASPIRIN ENTERIC COATED 81 MG TABLET.DR. PO SCH (08:38)
[2021-08-17] MEDS: CARVEDILOL 12.5 MG TABLET PO SCH ×2 (08:39→17:29)
[2021-08-17] MEDS: metFORMIN XR 500 MG TAB.ER.24H PO SCH (08:39)
[2021-08-17] MEDS: GABAPENTIN 300 MG CAPSULE. PO SCH ×2 (08:39→20:05)
[2021-08-17] MEDS: IPRATROPIUM/ALBUTEROL 20/100mcg/INH INHALER. INH SCH ×4 (08:39→20:06)
--- NOTE | 2021-08-17 11:55 | PDOC ---
Exam Note: Leo Note: This note is a late entry for 08/15/2021 covers elements not covered in my initial note. Subjective: The patient was seen individually in the evening of 08/15/2021 with Lana KOWALSKI, discussed and reviewed the chart. The patient slept 6 hours previous night. Previous night he has having some chest pain. Workup for myocardial infarction was negative per Dr. Villarreal. [place] met with [place] [facility] [place] Review of Systems: Impaired ambulation in wheelchair. No CV, , pulmonary, eye, ENT system symptoms on review. Mental Status Exam: The patient is oriented to himself. He is quite verbal, interactive but gets confused, again believed I was a enamel finisher/preacher. Speech coherent. Abstraction fair. Computation impaired. Language function intact. Attention span short. Mood and affect remains withdrawn, confused. No suicidal or homicidal ideation. Laboratory Data: Reviewed. Impression: Major depressive disorder, recurrent. Major neurocognitive disorder, Alzheimer, vascular with delusion, depression, behavioral disturbance. Anxiety disorder unspecified. Impulse control disorder unspecified. Plan: Continue psychotropics from initial note. Please be noted Dr. Warren will cover for me from 08/16 through 08/27/2021. Assessment: Vital Signs/I&O: Vital Signs Date Time Temp Pulse Resp B/P (MAP) Pulse Ox O2 Delivery O2 Flow Rate FiO2 08/17/21 08:39 84 163/76 08/17/21 06:24 97.9 20 91 08/14/21 06:24 Room Air I & O 08/16/21 08/16/21 08/17/21 15:00 23:00 07:00 Intake Total 240 ml 720 ml Balance 240 ml 720 ml Labs: Laboratory Tests Test 08/17/21 07:27 Glucose (Fingerstick) 140 mg/dL (70-99) H Current Medications: Meds: Laboratory Tests Test 08/17/21 07:27 Glucose (Fingerstick) 140 mg/dL Current Medications Medications (Trade) Dose Ordered Sig/Aparna Route PRN Reason Start Time Stop Time Status Last Admin Dose Admin Acetaminophen (Tylenol) 650 mg PRN Q6HRS PRN PO MILD PAIN / TEMP > 100.3'F 07/06/21 00:30 Cancel Multi-Ingredient Ointment (Analgesic Warne) 1 inna PRN QID PRN TP MUSCLE PAIN 07/06/21 00:30 08/01/21 20:19 Al Hydroxide/Mg Hydroxide (Mylanta Plus Xs) 15 ml PRN AFTMEALHC PRN PO DYSPEPSIA 07/06/21 00:30 08/15/21 00:24 Magnesium Hydroxide (Milk Of Magnesia) 2,400 mg PRN QHS PRN PO 2ND CHOICE CONSTIPATION 07/06/21 00:30 07/14/21 08:13 Duloxetine HCl (Cymbalta) 20 mg HS PO 07/06/21 21:00 08/16/21 20:12 Duloxetine HCl (Cymbalta) 30 mg HS PO 07/06/21 21:00 08/16/21 20:11 Mirtazapine (Remeron) 7.5 mg HS PO 07/06/21 21:00 07/29/21 18:15 DC 07/28/21 20:09 Olanzapine (ZyPREXA ZYDIS) 2.5 mg PRN Q2HR PRN PO ANXIETY / AGITATION 07/06/21 01:15 08/15/21 00:24 Trazodone HCl (Desyrel) 50 mg PRN QHS PRN PO INSOMNIA 07/06/21 01:15 08/15/21 20:48 Acetaminophen (Tylenol) 650 mg PRN Q4HRS PRN PO MILD PAIN 1-3 07/06/21 10:30 08/01/21 20:19 Aspirin (Aspirin Enteric Coated) 81 mg DAILY PO 07/07/21 09:00 08/17/21 08:38 Atorvastatin Calcium (Lipitor) 10 mg QHS PO 07/06/21 21:00 08/16/21 20:11 Carvedilol (Coreg) 3.125 mg BIDWMEALS PO 07/06/21 17:00 07/25/21 17:52 DC 07/25/21 17:22 Gabapentin (Neurontin) 300 mg BID PO 07/06/21 21:00 08/17/21 08:39 Metformin HCl (Glucophage Xr) 500 mg DAILYWBKFT PO 07/07/21 08:00 08/17/21 08:39 Multi-Ingredient Ointment (Analgesic Warne) 1 inna PRN QID PRN TP PAIN 07/06/21 10:30 UNV Phenytoin Sodium (Dilantin) 500 mg HS PO 07/06/21 21:00 07/07/21 22:27 DC 07/07/21 20:05 Tamsulosin HCl (Flomax) 0.4 mg DAILY PO 07/07/21 09:00 08/17/21 08:38 Polyethylene Glycol (miraLAX) 17 gm PRN DAILY PRN PO 1ST CHOICE CONSTIPATION 07/06/21 10:45 08/13/21 20:07 Non-Formulary Medication (Pravastatin Sodium ) 40 mg DAILY PO 07/07/21 09:00 UNV Phenyleph/Shark Oil/Min Oil/Petrol (Preparation H) 1 inna PRN QID PRN RC RECTAL PAIN 07/06/21 15:15 Phenytoin Sodium (Dilantin) 400 mg HS PO 07/08/21 21:00 07/11/21 23:36 DC 07/11/21 20:35 Albuterol/ Ipratropium (Combivent Respimat 20-100 Mcg) 1 puff QID INH 07/08/21 13:00 08/17/21 08:39 Docusate Sodium (Colace) 100 mg DAILY PO 07/09/21 09:00 08/17/21 08:38 Guaifenesin (Mucinex Er) 600 mg BID PO 07/08/21 21:00 08/17/21 08:38 Magnesium Hydroxide (Milk Of Magnesia) 2,400 mg PRN QHS PRN PO 2nd CHOICE CONSTIPATION 07/08/21 19:30 Cancel Phenytoin Sodium (Dilantin) 200 mg HS PO 07/12/21 21:00 08/16/21 20:11 Phenytoin Sodium (Dilantin) 100 mg DAILY PO 07/12/21 09:00 08/17/21 08:38 Carvedilol (Coreg) 6.25 mg BIDWMEALS PO 07/25/21 18:00 07/25/21 18:07 DC Carvedilol (Coreg) 6.25 mg BIDWMEALS PO 07/26/21 08:00 08/02/21 09:02 DC 08/02/21 08:33 Mirtazapine (Remeron) 15 mg QHS PO 07/29/21 21:00 08/16/21 20:12 Carvedilol (Coreg) 12.5 mg BIDWMEALS PO 08/02/21 17:00 08/17/21 08:39 Albuterol Sulfate (Ventolin Hfa Inhaler) 2 puff PRN Q4HRS PRN INH SHORTNESS OF BREATH 08/02/21 09:15 08/17/21 01:59 Melatonin (Melatonin) 3 mg QHS PO 08/05/21 21:00 08/16/21 20:10 Oxycodone/ Acetaminophen (Percocet 10/325) 1 tab PRN Q6HRS PRN PO MOD-SEV PAIN 08/15/21 00:15 08/15/21 00:23 I have reviewed the current psychotropics carefully including drug interactions. Risk benefit ratio favors no change other than as noted in my dictated progress note. Diagnosis: Problems: (1) Major depressive disorder (2) Impulse control disorder, unspecified (3) Anxiety disorder, unspecified (4) Dementia, vascular, with depression (5) Dementia, vascular, with delusions (6) Major neurocognitive disorder (7) Dementia in Alzheimer's disease with depression (8) Dementia in Alzheimer's disease with delusions (9) Dementia of the Alzheimer's type with early onset with behavioral disturbance NIK LOYA MD Aug 17, 2021 11:55
--- NOTE | 2021-08-17 14:32 | NUR ---
Pt c/o SOB and increasing in anxiety r/t it. PRN Albuterol inhaler administered.
--- NOTE | 2021-08-17 15:20 | PN ---
DATE: 08/16/2021 SUBJECTIVE: The patient was seen today, met with the staff. Chart was reviewed. Also this is a late entry for the service date 08/16/2021. Staff reports he has continued to have problems with the thinking mostly disorganized. However, he is social, medication compliant and not presented with any major behavior problems. The patient also having frequent complaints about having difficulty with breathing. OBSERVATION: VITAL SIGNS: Temperature 97.9, pulse 80, respirations 20, O2 sat 90%. Slept about 7 hours last night. The patient's appetite is fair. CURRENT MEDICATIONS: Include melatonin 3 mg at night, mirtazapine 15 mg at night, gabapentin 300 mg twice a day, Cymbalta 30 mg at night and 20 mg at night, trazodone 50 mg at night p.r.n. for sleep and olanzapine 2.5 mg every 2 hours p.r.n. The patient is also on Dilantin 300 mg daily. LABORATORY DATA: The patient's lab reviewed. The patient's Dilantin level was 18.4. The patient's chem profile and hematology has not shown any changes from the previous levels. Staff reports no falls. ASSESSMENT: 1. Major neurocognitive disorder, most likely Alzheimer's, vascular with delusions, depression and behavioral disturbances. 2. Anxiety disorder, unspecified. PLAN: To continue with the current treatment plan. Length of stay is 7-[address]: Abimbola TID: [id number]
[2021-08-17 15:42] VITALS: BP 112/62
--- NOTE | 2021-08-17 16:44 | NUR ---
Nsg Note; aNsir has been coughing more today, trying to get up mucous from his throat and lungs. He gets SOA which has been making him anxious, then he gets demanding thinking a coke or dr whiteside will help soothe his throat. I gave him one which seemed to calm him some, after he was given his rescue inhaler. He has withdrawn to his room between meals today, not spending time in the garcia. He is med and care compliant
[2021-08-17] MEDS: DULoxetine HCL 20 MG CAPSULE.DR PO SCH (20:05)
[2021-08-17] MEDS: MIRTAZAPINE 15 MG TABLET PO SCH (20:05)
[2021-08-17] MEDS: DULoxetine HCL 30 MG CAPSULE.DR PO SCH (20:05)
[2021-08-17] MEDS: traZODone 50 MG TABLET. PO PRN (20:05)
[2021-08-17] MEDS: MELATONIN 3 MG TABLET PO SCH (20:06)
[2021-08-17] MEDS: ATORVASTATIN CALCIUM 10 MG TABLET. PO SCH (20:06)
--- NOTE | 2021-08-17 22:01 | NUR ---
Pt sitting up in w/c in the hallway singing and interacting with peers when approached. Pt calm, pleasant, and appropriate at this time. Pt cooperative with assessment and compliant with medications administered whole.
--- NOTE | 2021-08-17 23:23 | PN ---
DATE: 08/17/2021 SUBJECTIVE: The patient was seen today, met with the staff. Chart was reviewed and also covering for Dr. Parra. Staff reports increased anxiety, disorganized thinking, tend to isolate herself, but social. The patient also having multiple physical complaints including breathing problems and cough. OBSERVATION: VITAL SIGNS: Temperature 97.9, blood pressure 163/76, pulse 84, respirations 20, O2 sat 91. GENERAL: Slept about 8 hours last night. The patient's appetite is fair. CURRENT MEDICATIONS: Include melatonin 3 mg at night, mirtazapine 15 mg at night, gabapentin 300 mg twice a day, Cymbalta 30 mg at night and 20 mg at night, trazodone 50 mg at night p.r.n. for sleep. He is also on p.r.n. olanzapine 2.5 mg q. 2 hours p.r.n. He is also on Dilantin 300 mg daily. LABORATORY DATA: The patient's lab reviewed. ASSESSMENT: 1. Major neurocognitive disorder, most likely Alzheimer's, vascular with delusions, depression and behavioral disturbances. 2. Anxiety disorder, unspecified. PLAN: To continue with the current treatment. LENGTH OF STAY: Seven to ten days. FAITH MONK: Abimbola TID: [id number]
--- NOTE | 2021-08-18 01:05 | NUR ---
Pt up to nurse's station with c/o SOA requesting breathing treatment. PRN Albuterol MDI administered as ordered and pt escorted back to his room.
[2021-08-18] MEDS: ALBUTEROL SULFATE 8GM INHALER. INH PRN ×2 (01:08→14:37)
--- NOTE | 2021-08-18 01:42 | NUR ---
Pt back up to nurse's station, knocking on the door and shaking the door handle. Pt demanding a Dr. Pepper. "I get a Dr. Pepper every night. You know I can't breathe and that I need a Dr. Pepper". Pt was informed that he received his PRN inhaler for SOA and that he would not be getting a soda at this time. Pt began yelling at me in the hallway, " I need a Dr. Pepper! You know damn well that I need one! Why don't you just go get me one? It only costs a dollar!" I attempted to re-direct and educate pt to no avail. Pt very argumentative and agitated. PRN Zydis offered at this time, however pt stated "I'm not taking fucking shit! Go get me a Dr. Pepper!" Therefore, PRN Zydis administered via oral syringe.
[2021-08-18 06:07] LABS: BASO # 0.1 x10^3/uL (0.0-0.2); BASO % 1 % (0-3); EOS # 0.9 x10^3/uL (0.0-0.7); EOS % 14 % (0-3); HEMATOCRIT 33.4 % (39.0-53.0); LYMPH # 1.9 x10^3/uL (1.0-4.8); LYMPH % 30 % (24-48); MEAN CORPUSCULAR HEMOGLOBIN 34 pg (25-35); MEAN CORPUSCULAR HGB CONC 33 g/dL (31-37); MEAN CORPUSCULAR VOLUME 104 fL (79-100); MONO # 0.6 x10^3/uL (0.0-1.1); MONO % 10 % (0-9); NEUT % 46 % (31-73); PLATELET COUNT 100 x10^3/uL (140-400); RED BLOOD COUNT 3.23 x10^6/uL (4.30-5.70); RED CELL DISTRIBUTION WIDTH 14.4 % (11.5-14.5); WHITE BLOOD COUNT 6.5 x10^3/uL (4.0-11.0)
[2021-08-18 06:13] VITALS: BP 152/69
[2021-08-18 06:21] LABS: CALCIUM 8.6 mg/dL (8.5-10.1); CREATININE 1.3 mg/dL (0.7-1.3); GFR 53.3; POTASSIUM 4.9 mmol/L (3.5-5.1); TOTAL BILIRUBIN 0.3 mg/dL (0.2-1.0); TOTAL PROTEIN 6.1 g/dL (6.4-8.2)
[2021-08-18] MEDS: PHENYTOIN SODIUM EXTENDED 100 MG CAPSULE PO SCH ×2 (08:13→20:03)
[2021-08-18] MEDS: DOCUSATE SODIUM 100 MG CAPSULE PO SCH (08:13)
[2021-08-18] MEDS: TAMSULOSIN 0.4 MG CAP.ER.24H. PO SCH (08:13)
[2021-08-18] MEDS: GABAPENTIN 300 MG CAPSULE. PO SCH ×2 (08:13→20:03)
[2021-08-18] MEDS: IPRATROPIUM/ALBUTEROL 20/100mcg/INH INHALER. INH SCH ×4 (08:13→20:04)
[2021-08-18] MEDS: CARVEDILOL 12.5 MG TABLET PO SCH ×2 (08:13→17:54)
[2021-08-18] MEDS: ASPIRIN ENTERIC COATED 81 MG TABLET.DR. PO SCH (08:13)
[2021-08-18] MEDS: metFORMIN XR 500 MG TAB.ER.24H PO SCH (08:13)
--- NOTE | 2021-08-18 10:31 | NUR ---
Nursing note: Patient in dinning room for morning medications & assessment. He is medication compliant taken whole. Patient is A/O to self only. He is calm, cooperative, and withdrawn, not interacting with peers. He propels self in w/c, self transfers. He is currently in bed resting with eyes closed. Will continue to monitor.
--- NOTE | 2021-08-18 11:19 | NUR ---
WEEKLY ACTIVITY THERAPY NOTE Date of Admission: 07/06/21 Date of AT Assessment: 07/08 Precipitating behaviors that initiated intake and admission:Patient was reported to believe that his money was being stolen, his dog was being murdered, trying to leave the facility, disoriented, being tearful and crying frequently, and having sexually inappropriate conversations with other residents Goal aimed:increase socialization and engagement Initial Goal: Pt will participate in at least three individual or group Activity Therapy sessions per week. Goal changed 07/21:Pt will participate in at least five individual or group Activity Therapy sessions per week. Weekly progress towards goal: did not achieve, 2/5 Group participation level: 1 mod, 1 full Weekly highlights: identified songs and states Wednesday afternoon Behaviors observed: withdrawn to room, pleasant and appropriate interactions Plan:no change to goal Beneficial adaptations: music, socialization
[2021-08-18 15:51] VITALS: BP 129/69
[2021-08-18] MEDS: MIRTAZAPINE 15 MG TABLET PO SCH (20:03)
[2021-08-18] MEDS: ATORVASTATIN CALCIUM 10 MG TABLET. PO SCH (20:03)
[2021-08-18] MEDS: DULoxetine HCL 20 MG CAPSULE.DR PO SCH (20:03)
[2021-08-18] MEDS: traZODone 50 MG TABLET. PO PRN (20:03)
[2021-08-18] MEDS: DULoxetine HCL 30 MG CAPSULE.DR PO SCH (20:03)
[2021-08-18] MEDS: MELATONIN 3 MG TABLET PO SCH (20:04)
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
[2021-08-19] MEDS: traZODone 50 MG TABLET. PO PRN ×2 (00:36→20:36)
[2021-08-19 05:14] VITALS: BP 165/50
[2021-08-19] MEDS: metFORMIN XR 500 MG TAB.ER.24H PO SCH (08:43)
[2021-08-19] MEDS: CARVEDILOL 12.5 MG TABLET PO SCH ×2 (08:43→17:19)
[2021-08-19] MEDS: ASPIRIN ENTERIC COATED 81 MG TABLET.DR. PO SCH (08:43)
[2021-08-19] MEDS: GABAPENTIN 300 MG CAPSULE. PO SCH ×2 (08:43→20:37)
[2021-08-19] MEDS: TAMSULOSIN 0.4 MG CAP.ER.24H. PO SCH (08:43)
[2021-08-19] MEDS: PHENYTOIN SODIUM EXTENDED 100 MG CAPSULE PO SCH ×2 (08:44→20:37)
[2021-08-19] MEDS: IPRATROPIUM/ALBUTEROL 20/100mcg/INH INHALER. INH SCH ×4 (08:44→20:36)
[2021-08-19] MEDS: DOCUSATE SODIUM 100 MG CAPSULE PO SCH (08:44)
--- NOTE | 2021-08-19 10:13 | NUR ---
ARI attempted to contact Sabine, admission at [facility] to discuss if everything for admissions has been completed. ARI left a message and requested that Sabine call ARI when possible.
--- NOTE | 2021-08-19 10:17 | NUR ---
ARI attempted to speak to Gloria at [facility] [address]. ARI left a message asking Gloria to contact ARI when possible.
[2021-08-19 15:57] VITALS: BP 122/67
[2021-08-19] MEDS: MELATONIN 3 MG TABLET PO SCH (20:36)
[2021-08-19] MEDS: DULoxetine HCL 20 MG CAPSULE.DR PO SCH (20:36)
[2021-08-19] MEDS: DULoxetine HCL 30 MG CAPSULE.DR PO SCH (20:37)
[2021-08-19] MEDS: MIRTAZAPINE 15 MG TABLET PO SCH (20:37)
[2021-08-19] MEDS: ATORVASTATIN CALCIUM 10 MG TABLET. PO SCH (20:37)
--- NOTE | 2021-08-20 01:09 | PN ---
DATE: 08/18/2021 SUBJECTIVE: The patient was seen today, met with the staff, chart reviewed. The patient continues to have increased anxiety, disorganized thinking, social isolation and also periods of restlessness. The patient prefers to be left alone, but does interact with the staff and the residents usually goes to the dining room for breakfast, lunch and dinner. He denies of any physical complaints. OBSERVATION: VITAL SIGNS: Temperature 97.7, blood pressure 152/69, pulse 69, respirations 22, O2 sat 92%. Slept about 5 hours last night. GENERAL: The patient's appetite normal. MEDICATIONS: The patient's medications include melatonin 3 mg at night, mirtazapine 15 mg at night, gabapentin 300 mg twice a day, Cymbalta 30 mg at night and 20 mg at night, trazodone 50 mg at night p.r.n. for sleep. He is also on p.r.n. olanzapine 2.5 mg q.2 hours p.r.n. The patient is also on Dilantin 300 mg daily. LABORATORY DATA: Reviewed. ASSESSMENT: 1. Major neurocognitive disorder, most likely Alzheimer's, vascular with delusion, depression and behavioral disturbances. 2. Anxiety disorder, unspecified. PLAN: To continue with the treatment. LENGTH OF STAY: 7 to [address]: Abimbola TID: [id number]
--- NOTE | 2021-08-20 01:23 | PN ---
DATE: 08/19/2021 SUBJECTIVE: The patient was seen today, met with the staff. Chart reviewed and also covering for Dr. Parra. Staff reports problems at night. Apparently, he spends most of the day in bed, attention seeking and also argumentative with the staff. OBSERVATION: VITAL SIGNS: Temperature 97.8, temperature 97.8, blood pressure 165/50, pulse 82, respirations 22, O2 sat 91%. GENERAL: Slept about 4-1/2 hours last night. The patient's appetite is normal. CURRENT MEDICATIONS: The patient denies of any side effects to the medications. He is on melatonin 3 mg at night, mirtazapine 15 mg at night, gabapentin 300 mg twice a day, Cymbalta 30 mg at night and 20 mg at night and trazodone 50 mg at night p.r.n. for sleep. The patient is also on Dilantin 300 mg daily. The patient is also on p.r.n. olanzapine 2.5 mg q.2 hours p.r.n. LABORATORY DATA: The patient's lab reviewed. ASSESSMENT: 1. Major neurocognitive disorder, most likely Alzheimer's, vascular with delusion, depression and behavioral disturbances. 2. Anxiety disorder, unspecified. PLAN: To continue with the treatment. LENGTH OF STAY: 7 to [address]: Abimbola TID: [id number]
--- NOTE | 2021-08-20 02:48 | NUR ---
Pt withdrawn to room, lying in bed at shift change. Pt calm, confused, and disorganized when approached. Pt cooperative with assessment and compliant with medications administered crushed. No agitation or aggression noted thus far this shift.
[2021-08-20] MEDS: ALBUTEROL SULFATE 8GM INHALER. INH PRN ×2 (04:16→20:43)
[2021-08-20 05:45] VITALS: BP 161/70
[2021-08-20] MEDS: IPRATROPIUM/ALBUTEROL 20/100mcg/INH INHALER. INH SCH ×4 (08:50→20:42)
[2021-08-20] MEDS: PHENYTOIN SODIUM EXTENDED 100 MG CAPSULE PO SCH ×2 (08:51→20:42)
[2021-08-20] MEDS: TAMSULOSIN 0.4 MG CAP.ER.24H. PO SCH (08:51)
[2021-08-20] MEDS: DOCUSATE SODIUM 100 MG CAPSULE PO SCH (08:51)
[2021-08-20] MEDS: GABAPENTIN 300 MG CAPSULE. PO SCH ×2 (08:51→20:42)
[2021-08-20] MEDS: ASPIRIN ENTERIC COATED 81 MG TABLET.DR. PO SCH (08:51)
[2021-08-20] MEDS: metFORMIN XR 500 MG TAB.ER.24H PO SCH (08:51)
[2021-08-20] MEDS: CARVEDILOL 12.5 MG TABLET PO SCH ×2 (08:52→17:46)
[2021-08-20] MEDS ORDERED: FLU VACC QUAD 21-22 (6MOS+) PF 0.5 ML SYRINGE. VAX IM ONE (09:00)
--- NOTE | 2021-08-20 15:05 | NUR ---
Pt has been calm, cooperative, and medication compliant. He has been withdrawn to his room for most of the morning. Pt states that he is ready to leave the [facility] and go to care facility. Pt received his flu vaccination today and has been in an out of bed napping throughout the day.
[2021-08-20 15:33] VITALS: BP 126/71
--- NOTE | 2021-08-20 16:33 | NUR ---
ARI received call from Maikel, pt nephew/DPALEJANDRA, who wanted to follow up as he reports not being able to get ahold of Jessica at [facility]. ARI and Maikel double check the number he had written down; furthermore, ARI let Maikel know that she could also ask for Rosaline Walters who is also the [employer] at the facility. Maikel reports that his family has looked over everything and he will see what he can do to get the ball rolling. ARI will wait to hear back from either Maikel or [facility].
[2021-08-20] MEDS: MELATONIN 3 MG TABLET PO SCH (20:41)
[2021-08-20] MEDS: DULoxetine HCL 20 MG CAPSULE.DR PO SCH (20:41)
[2021-08-20] MEDS: MIRTAZAPINE 15 MG TABLET PO SCH (20:42)
[2021-08-20] MEDS: DULoxetine HCL 30 MG CAPSULE.DR PO SCH (20:42)
[2021-08-20] MEDS: ATORVASTATIN CALCIUM 10 MG TABLET. PO SCH (20:42)
--- NOTE | 2021-08-21 00:34 | NUR ---
Nursing Note Pt up in his room coughing with great force, spitting up large amounts of drainage into trash can. PRN inhaler given for SOA and wheezing. Pt compliant and cooperative with assessment and meds. Denies pain only SOA this pm.
--- NOTE | 2021-08-21 03:10 | PN ---
DATE: 08/20/2021 SUBJECTIVE: The patient was seen today, met with the staff, chart reviewed and also covering for Dr. Parra. Staff reports increased behavior problems, mostly in the night when he is awake. The patient also being delusional, paranoid, stating to the staff that somebody is driving his brand new [place] and clogging too many miles and he wants to go home and take care of the problems. The patient also impatient, irritable, sanchez and has increased anxiety. OBSERVATION: VITAL SIGNS: Temperature 97.8, blood pressure 161/70, pulse 88, respirations 22, O2 sat 93%. Slept about 10 hours last night. The patient's appetite is normal. CURRENT MEDICATIONS: Include melatonin 6 mg at night, mirtazapine 15 mg at night, Dilantin 200 mg at night and 100 mg daily, gabapentin 300 mg twice a day, Cymbalta 30 mg at night and 20 mg at night, trazodone 50 mg at night p.r.n. for sleep and olanzapine 2.5 mg every 2 hours p.r.n. LABORATORY DATA: The patient's lab reviewed. ASSESSMENT: 1. Major neurocognitive disorder, most likely Alzheimer's, vascular, with delusion, depression and behavioral disturbances. 2. Anxiety disorder, unspecified. PLAN: To continue treatment. LENGTH OF STAY: 7 days. He is awaiting for placement. KHURRAM/LEO/RUBIO DR: KHURRAM/shaunna TID: [id number]
[2021-08-21 06:26] VITALS: BP 152/75
[2021-08-21 07:37] LABS: BASO # 0.1 x10^3/uL (0.0-0.2); BASO % 1 % (0-3); EOS # 0.8 x10^3/uL (0.0-0.7); EOS % 12 % (0-3); HEMATOCRIT 33.3 % (39.0-53.0); HEMOGLOBIN 10.9 g/dL (13.0-17.5); LYMPH # 1.9 x10^3/uL (1.0-4.8); LYMPH % 30 % (24-48); MEAN CORPUSCULAR HEMOGLOBIN 34 pg (25-35); MEAN CORPUSCULAR HGB CONC 33 g/dL (31-37); MEAN CORPUSCULAR VOLUME 104 fL (79-100); MONO # 0.8 x10^3/uL (0.0-1.1); MONO % 12 % (0-9); NEUT # 2.9 x10^3uL (1.8-7.7); NEUT % 45 % (31-73); PLATELET COUNT 96 x10^3/uL (140-400); RED BLOOD COUNT 3.21 x10^6/uL (4.30-5.70); RED CELL DISTRIBUTION WIDTH 13.8 % (11.5-14.5); WHITE BLOOD COUNT 6.5 x10^3/uL (4.0-11.0)
[2021-08-21 07:46] LABS: ALBUMIN/GLOBULIN RATIO 0.9 (1.0-1.7); CALCIUM 8.7 mg/dL (8.5-10.1); CREATININE 1.3 mg/dL (0.7-1.3); GFR 53.3; POTASSIUM 4.1 mmol/L (3.5-5.1); TOTAL BILIRUBIN 0.3 mg/dL (0.2-1.0); TOTAL PROTEIN 6.5 g/dL (6.4-8.2)
[2021-08-21] MEDS: TAMSULOSIN 0.4 MG CAP.ER.24H. PO SCH (09:49)
[2021-08-21] MEDS: metFORMIN XR 500 MG TAB.ER.24H PO SCH (09:49)
[2021-08-21] MEDS: PHENYTOIN SODIUM EXTENDED 100 MG CAPSULE PO SCH ×2 (09:49→20:22)
[2021-08-21] MEDS: DOCUSATE SODIUM 100 MG CAPSULE PO SCH (09:49)
[2021-08-21] MEDS: ASPIRIN ENTERIC COATED 81 MG TABLET.DR. PO SCH (09:49)
[2021-08-21] MEDS: GABAPENTIN 300 MG CAPSULE. PO SCH ×2 (09:49→20:23)
[2021-08-21] MEDS: CARVEDILOL 12.5 MG TABLET PO SCH ×2 (09:50→17:14)
[2021-08-21] MEDS: ALBUTEROL SULFATE 8GM INHALER. INH PRN ×4 (09:50→20:18)
[2021-08-21] MEDS: IPRATROPIUM/ALBUTEROL 20/100mcg/INH INHALER. INH SCH ×4 (09:51→20:18)
--- NOTE | 2021-08-21 10:00 | NUR ---
ARI received call from Jessica at [facility] who reports talking to pt nephew, Maikel, who does not "appear to be in much of a hurry so we'll have to push him to get the admission taken care of". ARI has printed updates, the DPOA and copy of his Covid card over to [employer]. ARI requested a Wednesday discharge and will push Maikel to get all of the necessary paperwork completed. ARI to follow up on Wednesday.
[2021-08-21 10:09] LABS: % ATYL 8 % (0-0); % BANDS 6 % (0-9); % EOS 9 % (0-5); % LYMPHS 29 % (24-48); % MONOS 11 % (0-10); % SEGS 37 % (35-66)
[2021-08-21 10:15] LABS: PAPPENHEIMER BODIES PRESENT
[2021-08-21 10:18] LABS: PLT ESTIMATE DECREASED (ADEQUATE)
--- NOTE | 2021-08-21 12:56 | NUR ---
Pt has been calm, cooperative, and medication compliant today. Pt has been wheezy this morning and coughing quite a bit. He has received his PRN Albuterol at 0900 and 1210 which has seemed to help give him some relieve. Pt has been withdrawn to his room for most of the day, but has stayed up out of bed. He has attended meals and is eating well.
[2021-08-21 15:52] VITALS: BP 111/67
[2021-08-21] MEDS: MELATONIN 3 MG TABLET PO SCH (20:22)
[2021-08-21] MEDS: ATORVASTATIN CALCIUM 10 MG TABLET. PO SCH (20:23)
[2021-08-21] MEDS: DULoxetine HCL 30 MG CAPSULE.DR PO SCH (20:23)
[2021-08-21] MEDS: DULoxetine HCL 20 MG CAPSULE.DR PO SCH (20:23)
[2021-08-21] MEDS: MIRTAZAPINE 15 MG TABLET PO SCH (20:23)
--- NOTE | 2021-08-21 23:05 | NUR ---
Nursing Note Pt in hallway coughing up large amounts of sputum. SOA crackles throughout with wheezes. Albuterol given with HS meds. Otherwise pleasant and cooperative. Up in wheelchair social with peers. Pleasant and cooperative. Pt is intermittently demanding and rude.
--- NOTE | 2021-08-22 02:26 | PN ---
DATE: 08/21/2021 SUBJECTIVE: The patient was seen today, met with the staff, chart reviewed and also covering for Dr. Parra. Staff reports increased withdrawal, tend to isolate himself in his room. Overall, calm, cooperative and medication compliant. The patient is asking to be discharged. OBSERVATION: VITAL SIGNS: Temperature 97.3, blood pressure 111/67, pulse 69, respirations 20, O2 sat 96%. The patient apparently was sleeping more than 8 hours at night. CURRENT MEDICATIONS: Include melatonin 6 mg at night, mirtazapine 15 mg at night, Dilantin 200 mg at night and 100 mg daily, gabapentin 300 mg twice a day, Cymbalta 30 mg at night and 20 mg at night, trazodone 50 mg at night p.r.n. for sleep and olanzapine 2.5 mg q. 2 hours p.r.n. LABORATORY DATA: The patient's lab reviewed. ASSESSMENT: 1. Major neurocognitive disorder, most likely Alzheimer's, vascular with delusion, depression, behavioral disturbances. 2. Anxiety disorder, unspecified. PLAN: To continue treatment. LENGTH OF STAY: Seven days. The patient is now awaiting for placement. KHURRAM/JEMIMA/ROMANA DR: KHURRAM/shaunna TID: [id number]
[2021-08-22] MEDS: metFORMIN XR 500 MG TAB.ER.24H PO SCH (08:26)
[2021-08-22] MEDS: CARVEDILOL 12.5 MG TABLET PO SCH ×2 (08:26→17:00)
[2021-08-22] MEDS: DOCUSATE SODIUM 100 MG CAPSULE PO SCH (08:26)
[2021-08-22] MEDS: GABAPENTIN 300 MG CAPSULE. PO SCH ×2 (08:26→21:32)
[2021-08-22] MEDS: TAMSULOSIN 0.4 MG CAP.ER.24H. PO SCH (08:27)
[2021-08-22] MEDS: PHENYTOIN SODIUM EXTENDED 100 MG CAPSULE PO SCH ×2 (08:27→21:28)
[2021-08-22] MEDS: ASPIRIN ENTERIC COATED 81 MG TABLET.DR. PO SCH (08:27)
[2021-08-22] MEDS: IPRATROPIUM/ALBUTEROL 20/100mcg/INH INHALER. INH SCH ×4 (08:34→21:26)
[2021-08-22] MEDS: ALBUTEROL SULFATE 8GM INHALER. INH PRN ×2 (08:34→21:26)
[2021-08-22 09:32] VITALS: BP 182/75
[2021-08-22 16:08] VITALS: BP 132/77
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
[2021-08-22] MEDS: MELATONIN 3 MG TABLET PO SCH (21:27)
[2021-08-22] MEDS: DULoxetine HCL 20 MG CAPSULE.DR PO SCH (21:27)
[2021-08-22] MEDS: DULoxetine HCL 30 MG CAPSULE.DR PO SCH (21:27)
[2021-08-22] MEDS: MIRTAZAPINE 15 MG TABLET PO SCH (21:28)
[2021-08-22] MEDS: ATORVASTATIN CALCIUM 10 MG TABLET. PO SCH (21:30)
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
[2021-08-23] MEDS: IPRATROPIUM/ALBUTEROL 20/100mcg/INH INHALER. INH SCH ×4 (06:13→20:20)
[2021-08-23 06:26] VITALS: BP 171/82
[2021-08-23] MEDS: ASPIRIN ENTERIC COATED 81 MG TABLET.DR. PO SCH (08:40)
[2021-08-23] MEDS: PHENYTOIN SODIUM EXTENDED 100 MG CAPSULE PO SCH ×2 (08:40→20:17)
[2021-08-23] MEDS: metFORMIN XR 500 MG TAB.ER.24H PO SCH (08:40)
[2021-08-23] MEDS: TAMSULOSIN 0.4 MG CAP.ER.24H. PO SCH (08:41)
[2021-08-23] MEDS: CARVEDILOL 12.5 MG TABLET PO SCH ×2 (08:41→17:43)
[2021-08-23] MEDS: DOCUSATE SODIUM 100 MG CAPSULE PO SCH (08:41)
[2021-08-23] MEDS: GABAPENTIN 300 MG CAPSULE. PO SCH ×2 (08:41→20:17)
--- NOTE | 2021-08-23 14:20 | NUR ---
Nursing note: Patient in dinning room for morning medications & assessment. He is compliant with medications taken whole. Patient is A/O to self only. He is calm, cooperative, and withdrawn, not interacting with peers. He propels self in w/c, self transfers. Patient denies pain/discomfort the this time. He is currently sitting in his w/c in the garcia. Will continue to monitor.
[2021-08-23 15:41] VITALS: BP 126/70
[2021-08-23] MEDS: DULoxetine HCL 30 MG CAPSULE.DR PO SCH (20:17)
[2021-08-23] MEDS: DULoxetine HCL 20 MG CAPSULE.DR PO SCH (20:17)
[2021-08-23] MEDS: MIRTAZAPINE 15 MG TABLET PO SCH (20:17)
[2021-08-23] MEDS: ATORVASTATIN CALCIUM 10 MG TABLET. PO SCH (20:17)
[2021-08-23] MEDS: MELATONIN 3 MG TABLET PO SCH (20:18)
--- NOTE | 2021-08-23 23:32 | NUR ---
Pt located in his room this evening. Pt irritable when approached, however compliant with whole medications. Pt very resistive to shower but was compliant, yelling at times.
[2021-08-24] MEDS: traZODone 50 MG TABLET. PO PRN ×2 (01:08→20:06)
--- NOTE | 2021-08-24 01:15 | NUR ---
Pt awake and repeatedly at the nurses station banging on the door. Pt demands that staff "fix the blankets on the bed." Pt informed that he is more than capable of fixing his blankets. Pt became angry and started yelling. Pt later then came up to the nurses station stating that he "touched the twisted cord and now his hands itch." Pt taken to his room and asked to show staff what cord he was talking about. Pt pointed to the blankets on his bed. There was no cord. PRN medications pulled; pt adamantly refused medications. PRN Zyprexa and Trazodone administered sublingually with much resistance. Pt currently sitting in the bathroom repeatedly pressing the call light. Will continue to monitor.
--- NOTE | 2021-08-24 01:53 | PN ---
DATE: 08/23/2021 SUBJECTIVE: The patient was seen today, met with the staff. Chart was reviewed and also covering for Dr. Parra. Staff reports no major behavioral problems. He is calm, cooperative and medication compliant. OBSERVATION: VITAL SIGNS: Temperature 96.9, blood pressure 126/70, pulse 73, respirations 20, O2 sat 94%. The patient's appetite is fair. CURRENT MEDICATIONS: Include melatonin 6 mg at night, mirtazapine 15 mg at night, Dilantin 200 mg at night and 100 mg daily, gabapentin 300 mg twice a day, Cymbalta 30 mg at night and 20 mg at night. He is also on trazodone 50 mg at night p.r.n. for sleep. He is also on olanzapine 2.5 mg q.2 hours p.r.n. for severe agitation and paranoia. LABORATORY DATA: Reviewed. ASSESSMENT: 1. Major neurocognitive disorder, most likely Alzheimer's, vascular with delusion, depression and behavioral disturbances. 2. Anxiety disorder, unspecified. PLAN: To continue with the treatment. LENGTH OF STAY: [address]: Abimbola TID: [id number]
[2021-08-24 06:04] VITALS: BP 170/84
[2021-08-24] MEDS: ASPIRIN ENTERIC COATED 81 MG TABLET.DR. PO SCH (08:58)
[2021-08-24] MEDS: metFORMIN XR 500 MG TAB.ER.24H PO SCH (08:58)
[2021-08-24] MEDS: TAMSULOSIN 0.4 MG CAP.ER.24H. PO SCH (08:58)
[2021-08-24] MEDS: DOCUSATE SODIUM 100 MG CAPSULE PO SCH (08:58)
[2021-08-24] MEDS: GABAPENTIN 300 MG CAPSULE. PO SCH ×2 (08:59→20:05)
[2021-08-24] MEDS: IPRATROPIUM/ALBUTEROL 20/100mcg/INH INHALER. INH SCH ×4 (08:59→20:07)
[2021-08-24] MEDS: PHENYTOIN SODIUM EXTENDED 100 MG CAPSULE PO SCH ×2 (08:59→20:04)
[2021-08-24] MEDS: CARVEDILOL 12.5 MG TABLET PO SCH ×2 (08:59→17:17)
[2021-08-24] MEDS: ALBUTEROL SULFATE 8GM INHALER. INH PRN (09:04)
[2021-08-24 09:08] LABS: BASO % 1 % (0-3); EOS # 0.9 x10^3/uL (0.0-0.7); EOS % 15 % (0-3); HEMATOCRIT 36.4 % (39.0-53.0); HEMOGLOBIN 12.2 g/dL (13.0-17.5); LYMPH # 1.5 x10^3/uL (1.0-4.8); LYMPH % 26 % (24-48); MEAN CORPUSCULAR HEMOGLOBIN 35 pg (25-35); MEAN CORPUSCULAR HGB CONC 33 g/dL (31-37); MEAN CORPUSCULAR VOLUME 105 fL (79-100); MONO # 0.6 x10^3/uL (0.0-1.1); MONO % 11 % (0-9); NEUT # 2.8 x10^3uL (1.8-7.7); NEUT % 48 % (31-73); PLATELET COUNT 98 x10^3/uL (140-400); RED BLOOD COUNT 3.47 x10^6/uL (4.30-5.70); RED CELL DISTRIBUTION WIDTH 14.3 % (11.5-14.5); WHITE BLOOD COUNT 5.8 x10^3/uL (4.0-11.0)
[2021-08-24 09:20] LABS: ALBUMIN 3.2 g/dL (3.4-5.0); ALBUMIN/GLOBULIN RATIO 0.8 (1.0-1.7); CALCIUM 9.3 mg/dL (8.5-10.1); CREATININE 1.1 mg/dL (0.7-1.3); GFR 64.6; POTASSIUM 4.4 mmol/L (3.5-5.1); TOTAL BILIRUBIN 0.3 mg/dL (0.2-1.0)
--- NOTE | 2021-08-24 14:04 | NUR ---
Nursing note: Patient in dinning room for morning medications & assessment. He is compliant with medications taken whole. Patient is A/O to self only. He is calm, cooperative, and withdrawn, not interacting with peers. He came to day room in the morning. He propels self in w/c, self transfers. Patient denies pain/discomfort the this time. He is currently laying in bed with eyes closed. Will continue to monitor.
[2021-08-24 15:37] VITALS: BP 130/69
[2021-08-24] MEDS: ATORVASTATIN CALCIUM 10 MG TABLET. PO SCH (20:05)
[2021-08-24] MEDS: MIRTAZAPINE 15 MG TABLET PO SCH (20:05)
[2021-08-24] MEDS: DULoxetine HCL 20 MG CAPSULE.DR PO SCH (20:05)
[2021-08-24] MEDS: MELATONIN 3 MG TABLET PO SCH (20:05)
[2021-08-24] MEDS: DULoxetine HCL 30 MG CAPSULE.DR PO SCH (20:05)
--- NOTE | 2021-08-24 22:25 | PN ---
DATE: 08/24/2021 SUBJECTIVE: The patient was seen today, met with the staff, chart reviewed. Staff reports no major behavior problems. He tend to isolate himself. He has not created any problems, except he wakes up early in the morning, becomes very demanding, also gets agitated easily. OBSERVATION: VITAL SIGNS: Temperature 97.3, blood pressure 170/84, pulse 87, respirations 22, O2 sat 93%. GENERAL: Slept about 4 hours last night. The patient's appetite is normal. LABORATORY DATA: The patient's lab reviewed. CURRENT MEDICATIONS: The patient's current medications include melatonin 6 mg at night, mirtazapine 15 mg at night, Dilantin 200 mg at night, gabapentin 300 mg 3 times a day. She is also on Cymbalta 30 plus 20 mg at night. The patient is also on p.r.n. trazodone and olanzapine. The patient denies of any side effects. ASSESSMENT: 1. Major neurocognitive disorder, most likely Alzheimer's, vascular with delusion, depression and behavioral disturbances. 2. Anxiety disorder, unspecified. PLAN: To continue with the treatment. LENGTH OF STAY: Seven days. ALFONZO DR: Abimbola TID: [id number]
--- NOTE | 2021-08-24 22:29 | NUR ---
Pt located in his room this evening. Pt in a good mood, pleasant and joking with staff. Compliant with whole medications. Pt stated that he "needs to leave this place. It's starting to get to me. Nobody likes it when I sing or yodel in the hallway." Staff suggested pt stay in his room when he wants to sing or yodel. No agitation or attention seeking behaviors this evening.
[2021-08-25] MEDS: ALBUTEROL SULFATE 8GM INHALER. INH PRN ×3 (02:39→17:42)
--- NOTE | 2021-08-25 02:44 | NUR ---
Pt awake and at nurses station window stating that he can't breathe and needs a breathing treatment. PRN Albuterol inhaler and Zydis administered.
[2021-08-25 05:54] VITALS: BP 137/75
[2021-08-25] MEDS: IPRATROPIUM/ALBUTEROL 20/100mcg/INH INHALER. INH SCH ×4 (07:56→20:31)
[2021-08-25] MEDS: metFORMIN XR 500 MG TAB.ER.24H PO SCH (07:57)
[2021-08-25] MEDS: CARVEDILOL 12.5 MG TABLET PO SCH ×2 (07:57→17:38)
[2021-08-25] MEDS: GABAPENTIN 300 MG CAPSULE. PO SCH ×2 (07:57→20:30)
[2021-08-25] MEDS: ASPIRIN ENTERIC COATED 81 MG TABLET.DR. PO SCH (07:57)
[2021-08-25] MEDS: PHENYTOIN SODIUM EXTENDED 100 MG CAPSULE PO SCH ×2 (07:58→20:30)
[2021-08-25] MEDS: TAMSULOSIN 0.4 MG CAP.ER.24H. PO SCH (07:58)
[2021-08-25] MEDS: DOCUSATE SODIUM 100 MG CAPSULE PO SCH (07:58)
--- NOTE | 2021-08-25 12:46 | NUR ---
WEEKLY ACTIVITY THERAPY NOTE Date of Admission: 07/06/21 Date of AT Assessment: 07/08 Precipitating behaviors that initiated intake and admission:Patient was reported to believe that his money was being stolen, his dog was being murdered, trying to leave the facility, disoriented, being tearful and crying frequently, and having sexually inappropriate conversations with other residents Goal aimed:increase socialization and engagement Initial Goal: Pt will participate in at least three individual or group Activity Therapy sessions per week. Goal changed 07/21:Pt will participate in at least five individual or group Activity Therapy sessions per week. Weekly progress towards goal: did not achieve, 3/ Group participation level: 3 mod Weekly highlights: sang on patio Wednesday afternoon, storytelling during reminiscence group Wednesday Behaviors observed: social,pleasant, appropriate with group Plan: no change to goal Beneficial adaptations: music, socialization
--- NOTE | 2021-08-25 12:51 | NUR ---
Treatment team update: Pt is eating 75% of meals and sleeping roughly 5 hours on average. Pt continues to be compliant with cares and medications whole. Pt did attempt to lay in bed and sleep all weekend, needing encouragement to be up and social in the day room. Pt did attend 3 groups this past week with moderate participation. Pt has been accepted to [facility]; everything needed has been turned in for admission with the exception of getting signatures from pt nephew on admission paperwork. SW and [facility] to push for Wednesday of this week.
--- NOTE | 2021-08-25 13:32 | NUR ---
Nursing note: Patient in dinning room for morning medications & assessment. He is compliant with medications taken whole. Patient is A/O to self only. He is calm, cooperative, and withdrawn, not interacting with peers. He came to day room in the morning for a very brief time before going back to his room to lay in bed. He propels self in w/c, self transfers. Patient denies pain/discomfort the this time. He is currently sitting in his room in his w/c. Will continue to monitor.
[2021-08-25 16:15] VITALS: BP 143/63
[2021-08-25] MEDS: ATORVASTATIN CALCIUM 10 MG TABLET. PO SCH (20:30)
[2021-08-25] MEDS: DULoxetine HCL 20 MG CAPSULE.DR PO SCH (20:30)
[2021-08-25] MEDS: MELATONIN 3 MG TABLET PO SCH (20:30)
[2021-08-25] MEDS: MIRTAZAPINE 15 MG TABLET PO SCH (20:30)
[2021-08-25] MEDS: DULoxetine HCL 30 MG CAPSULE.DR PO SCH (20:30)
[2021-08-25] MEDS: traZODone 50 MG TABLET. PO PRN (20:31)
--- NOTE | 2021-08-25 23:15 | NUR ---
Pt calm and pleasant this evening. Compliant with whole medications. No anxiety or agitation.
--- NOTE | 2021-08-26 02:10 | PN ---
DATE: 08/25/2021 SUBJECTIVE: The patient was seen today, met with the staff. Chart reviewed and also participated in the treatment review meeting. The patient prefers to stay in his room and apparently had a good night, did not create any problems last night. The patient was accepted at [facility], but the family is still working towards his discharge. OBSERVATION: VITAL SIGNS: Temperature 97.3, blood pressure 137/75, pulse 64, respirations 20, O2 sat 98%. GENERAL: Slept about 5 hours last night. The patient's appetite improved. The patient currently not having any physical complaints. CURRENT MEDICATIONS: Melatonin 6 mg at night, mirtazapine 15 mg at night, gabapentin 300 mg twice a day, Cymbalta 30 mg at night and 20 mg at night, trazodone 50 mg at night p.r.n., also olanzapine 2.5 mg q.2 hours p.r.n. The patient is also on Dilantin 100 mg daily. LABORATORY DATA: The patient's lab reviewed. ASSESSMENT: 1. Major neurocognitive disorder, most likely Alzheimer's, vascular with delusion, depression and behavioral disturbances. 2. Anxiety disorder, unspecified. PLAN: Continue with the treatment. LENGTH OF STAY: [address]: Abimbola TID: [id number] MTDD
[2021-08-26] MEDS: ALBUTEROL SULFATE 8GM INHALER. INH PRN ×5 (03:39→19:53)
--- NOTE | 2021-08-26 03:42 | NUR ---
Pt at nurses station anxious, stating that he cannot breathe. PRN Albuterol inhaler and Zyprexa administered.
[2021-08-26 06:19] VITALS: BP 128/69
[2021-08-26] MEDS: metFORMIN XR 500 MG TAB.ER.24H PO SCH (08:18)
[2021-08-26] MEDS: ASPIRIN ENTERIC COATED 81 MG TABLET.DR. PO SCH (08:18)
[2021-08-26] MEDS: CARVEDILOL 12.5 MG TABLET PO SCH ×2 (08:19→17:38)
[2021-08-26] MEDS: IPRATROPIUM/ALBUTEROL 20/100mcg/INH INHALER. INH SCH ×4 (08:19→22:25)
[2021-08-26] MEDS: TAMSULOSIN 0.4 MG CAP.ER.24H. PO SCH (08:19)
[2021-08-26] MEDS: GABAPENTIN 300 MG CAPSULE. PO SCH ×2 (08:19→19:53)
[2021-08-26] MEDS: PHENYTOIN SODIUM EXTENDED 100 MG CAPSULE PO SCH ×2 (08:19→19:54)
[2021-08-26] MEDS: DOCUSATE SODIUM 100 MG CAPSULE PO SCH (08:19)
--- NOTE | 2021-08-26 13:28 | NUR ---
ARI attempted to contact juan david Lopez at [facility] and left a message asking for a returned call re: pt discharge.
--- NOTE | 2021-08-26 13:32 | NUR ---
ARI attempted to contact liliana Ko nephew/NURYS, re: pt discharge. ARI was not able to leave a message as the voice mailbox was full. ARI will try back again.
--- NOTE | 2021-08-26 15:19 | NUR ---
Nursing note: Patient in dinning room for morning medications & assessment. He is compliant with medications taken whole. Patient is A/O to self only. He is calm, cooperative, not interacting with peers. He came to day room in the morning to listen to music for a brief time then sat in w/c in room. Patient joined groups in afternoon and was interactive. He propels self in w/c, self transfers. Patient denies pain/discomfort the this time. He is currently sitting his w/c in the door way of his bedroom. Will continue to monitor.
[2021-08-26 16:09] VITALS: BP 144/73
[2021-08-26] MEDS: ATORVASTATIN CALCIUM 10 MG TABLET. PO SCH (19:53)
[2021-08-26] MEDS: MELATONIN 3 MG TABLET PO SCH (19:53)
[2021-08-26] MEDS: DULoxetine HCL 30 MG CAPSULE.DR PO SCH (19:54)
[2021-08-26] MEDS: MIRTAZAPINE 15 MG TABLET PO SCH (19:54)
[2021-08-26] MEDS: DULoxetine HCL 20 MG CAPSULE.DR PO SCH (19:54)
--- NOTE | 2021-08-27 01:32 | NUR ---
Last evening pt tried to call his nephew/DPOA and there was no answer. He has been cooperative tonight taking meds whole and is less demanding than he has been on other nights. He has had no behaviors tonight.
--- NOTE | 2021-08-27 02:40 | PN ---
DATE: 08/26/2021 SUBJECTIVE: The patient was seen today, met with the staff, chart reviewed. Staff reports no major behavior problems except waking up support group manager. Apparently last night, he did not have any major behavior problems. OBSERVATION: VITAL SIGNS: Temperature 97.5, blood pressure 128/69, pulse 70, respirations 18, O2 sat 94%. Slept about 5 hours last night. The patient's appetite normal. CURRENT MEDICATIONS: Melatonin 6 mg at night, mirtazapine 15 mg at night, gabapentin 300 mg twice a day, Cymbalta 30 mg at night and 20 mg at night, trazodone 50 mg at night p.r.n. He is also on olanzapine 2.5 mg q.2 hours p.r.n. LABORATORY DATA: The patient's lab reviewed. The patient is not having any side effects to medications. ASSESSMENT: 1. Major neurocognitive disorder, most likely Alzheimer's, vascular with delusion, depression and behavioral disturbances. 2. Anxiety disorder, unspecified. PLAN: To continue with the current treatment. LENGTH OF STAY: One to two days. The patient is planned for discharge tomorrow. SOLIS DR: Abimbola TID: [id number]
[2021-08-27] MEDS ORDERED: ALBU2.5V8 IH (03:30)
[2021-08-27] MEDS ORDERED: MELA3TAB4 PO (03:31)
[2021-08-27] MEDS ORDERED: PHEN28OI8 RC (03:34)
[2021-08-27] MEDS ORDERED: OXYC1TAB22 PO (03:36)
[2021-08-27 06:36] VITALS: BP 169/68
[2021-08-27] MEDS: IPRATROPIUM/ALBUTEROL 20/100mcg/INH INHALER. INH SCH ×4 (08:21→19:40)
[2021-08-27] MEDS: GABAPENTIN 300 MG CAPSULE. PO SCH ×2 (08:22→19:41)
[2021-08-27] MEDS: PHENYTOIN SODIUM EXTENDED 100 MG CAPSULE PO SCH ×2 (08:22→19:42)
[2021-08-27] MEDS: metFORMIN XR 500 MG TAB.ER.24H PO SCH (08:22)
[2021-08-27] MEDS: ASPIRIN ENTERIC COATED 81 MG TABLET.DR. PO SCH (08:23)
[2021-08-27] MEDS: CARVEDILOL 12.5 MG TABLET PO SCH ×2 (08:23→17:06)
[2021-08-27] MEDS: DOCUSATE SODIUM 100 MG CAPSULE PO SCH (08:23)
[2021-08-27] MEDS: TAMSULOSIN 0.4 MG CAP.ER.24H. PO SCH (08:24)
--- NOTE | 2021-08-27 09:31 | NUR ---
ARI attempted to contact Jessica at [facility] and left another message for her to contact ARI when possible re: pt admission.
--- NOTE | 2021-08-27 10:01 | NUR ---
RN DAY SHIFT NOTE: PT PRESENTS WITH A PLEASANT MOOD/AFFECT. PT IS LOW SOLIS ON THE UNIT. PT IS APPROACHABLE AND ENGAGES WITH STAFF. PT WAS LAUGHING AND JOKING AND IN GOOD SPIRITS AT BREAKFAST. PT WAS MEDICATION COMPLIANT. PT IS NOTED TO BE SPENDING TIME IN HIS BEDROOM QUIETLY SITTING. PT FOLLOWS RULES/ROUTINES ON THE UNIT. PT CONTINUES TO HAVE A GOOD APPETITE. PT SLEPT 1.25 HOURS LAST NIGHT. WILL CONTINUE TO MONITOR.
--- NOTE | 2021-08-27 10:56 | NUR ---
ARI attempted to contact Rosaline Walters, ED at [facility], to discuss pt admission and was not able to make contact. ARI left a message for Rosaline to contact ARI when possible.
[2021-08-27 15:39] VITALS: BP 116/58
--- NOTE | 2021-08-27 15:54 | NUR ---
pt is noted to be socializing with peers and singing happily in the day room.
[2021-08-27] MEDS: DULoxetine HCL 30 MG CAPSULE.DR PO SCH (19:40)
[2021-08-27] MEDS: DULoxetine HCL 20 MG CAPSULE.DR PO SCH (19:40)
[2021-08-27] MEDS: ATORVASTATIN CALCIUM 10 MG TABLET. PO SCH (19:41)
[2021-08-27] MEDS: MELATONIN 3 MG TABLET PO SCH (19:42)
[2021-08-27] MEDS: MIRTAZAPINE 15 MG TABLET PO SCH (19:42)
--- NOTE | 2021-08-28 00:57 | NUR ---
Pt slept in his bed early in shift and is now awake and singing or yodeling in his room. He took meds whole without difficulty and has been cooperative with cares. He has been social wit peers and has had no behaviors tonight.
--- NOTE | 2021-08-28 03:26 | PN ---
DATE: 08/27/2021 SUBJECTIVE: The patient was seen today, met with the staff, chart reviewed. The patient was planned for discharge today. Apparently, his DPOA did not contact the hospital for the discharge. The patient's behavior remains the same, withdrawn, cognitive deficits, mostly compliant, pleasant and has not presented with any major behavior problems. OBSERVATION: VITAL SIGNS: Temperature 98.0, blood pressure 169/68, pulse 90, respirations 22, O2 sat 92%. GENERAL: Slept about 1 hour last night. CURRENT MEDICATIONS: Include melatonin 6 mg at night, mirtazapine 15 mg at night, gabapentin 300 mg twice a day, Cymbalta 30 mg at night and 20 mg at night, trazodone 50 mg at night p.r.n. He is also on olanzapine 2.5 mg q. 2 hours p.r.n. LABORATORY DATA: The patient's lab reviewed. ASSESSMENT: 1. Major neurocognitive disorder, most likely Alzheimer's, vascular with delusions, depression and behavioral disturbances. 2. Anxiety disorder, unspecified. PLAN: To continue with treatment. LENGTH OF STAY: One to two days. MANUEL/CARLENE DR: Abimbola TID: [id number]
[2021-08-28 06:36] VITALS: BP 117/74
[2021-08-28] MEDS: IPRATROPIUM/ALBUTEROL 20/100mcg/INH INHALER. INH SCH ×4 (08:36→20:28)
[2021-08-28] MEDS: CARVEDILOL 12.5 MG TABLET PO SCH ×2 (08:36→16:56)
[2021-08-28] MEDS: DOCUSATE SODIUM 100 MG CAPSULE PO SCH (08:37)
[2021-08-28] MEDS: ASPIRIN ENTERIC COATED 81 MG TABLET.DR. PO SCH (08:37)
[2021-08-28] MEDS: PHENYTOIN SODIUM EXTENDED 100 MG CAPSULE PO SCH ×2 (08:37→20:30)
[2021-08-28] MEDS: TAMSULOSIN 0.4 MG CAP.ER.24H. PO SCH (08:37)
[2021-08-28] MEDS: GABAPENTIN 300 MG CAPSULE. PO SCH ×2 (08:37→20:29)
[2021-08-28] MEDS: metFORMIN XR 500 MG TAB.ER.24H PO SCH (08:38)
--- NOTE | 2021-08-28 11:18 | NUR ---
RN DAY SHIFT NOTE: PT PRESENTS WITH A PLEASANT MOOD/AFFECT. PT IS MEDICATION COMPLIANT. PT IS ORIENTED TO SELF, KNOWS NAME AND . PT IS APPROACHABLE AND WILL ENGAGE WITH STAFF. PT IS SOCIAL WITH PEERS. PT IS NOTED TO BE SPENDING TIME RESTING IN HIS ROOM BEFORE LUNCH. PT SLEPT 5.75 HOURS LAST NIGHT. PT CONTINUES TO HAVE A GOOD APPETITE. WILL CONTINUE TO MONITOR.
--- NOTE | 2021-08-28 15:46 | NUR ---
ARI attempted to contact Maikel, liliana mabry, and was not able to leave a message. It is noted that the "mailbox if full and cannot accept messages". ARI attempted a previous number found on pt chart in hopes to contact Maikel. Pt raghavendra did pickle solution maker to inform ARI that he is at a training and cannot be talked to until 1700 tonight and will call back at that time.
[2021-08-28 15:59] VITALS: BP 134/59
[2021-08-28] MEDS: DULoxetine HCL 20 MG CAPSULE.DR PO SCH (20:29)
[2021-08-28] MEDS: ATORVASTATIN CALCIUM 10 MG TABLET. PO SCH (20:29)
[2021-08-28] MEDS: DULoxetine HCL 30 MG CAPSULE.DR PO SCH (20:29)
[2021-08-28] MEDS: MELATONIN 3 MG TABLET PO SCH (20:30)
[2021-08-28] MEDS: MIRTAZAPINE 15 MG TABLET PO SCH (20:30)
[2021-08-28] MEDS: ALBUTEROL SULFATE 8GM INHALER. INH PRN (20:33)
--- NOTE | 2021-08-28 22:13 | PDOC ---
Exam Note: Leo Note: Please also refer to the separate dictated note~for this date of service dictated separately.~Patient seen individually. Discussed the patient with Nursing staff reviewed the chart.~Reviewed interim history and current functioning. Reviewed vital signs,~Labs/ Radiology~and current medications noted below. Continue current treatment with the changes noted in the dictated addendum note Assessment: Vital Signs/I&O: Vital Signs Date Time Temp Pulse Resp B/P (MAP) Pulse Ox O2 Delivery O2 Flow Rate FiO2 08/28/21 16:56 73 134/59 08/28/21 15:59 97.9 17 96 08/27/21 15:39 Room Air I & O 08/27/21 08/27/21 08/28/21 15:00 23:00 07:00 Intake Total 1300 ml 237 ml 120 ml Balance 1300 ml 237 ml 120 ml Labs: Laboratory Tests Test 08/28/21 07:21 Glucose (Fingerstick) 122 mg/dL (70-99) H Current Medications: Meds: Laboratory Tests Test 08/28/21 07:21 Glucose (Fingerstick) 122 mg/dL Current Medications Medications (Trade) Dose Ordered Sig/Aparna Route PRN Reason Start Time Stop Time Status Last Admin Dose Admin Acetaminophen (Tylenol) 650 mg PRN Q6HRS PRN PO MILD PAIN / TEMP > 100.3'F 07/06/21 00:30 Cancel Multi-Ingredient Ointment (Analgesic [place]) 1 inna PRN QID PRN TP MUSCLE PAIN 07/06/21 00:30 08/01/21 20:19 Al Hydroxide/Mg Hydroxide (Mylanta Plus Xs) 15 ml PRN AFTMEALHC PRN PO DYSPEPSIA 07/06/21 00:30 08/15/21 00:24 Magnesium Hydroxide (Milk Of Magnesia) 2,400 mg PRN QHS PRN PO 2ND CHOICE CONSTIPATION 07/06/21 00:30 07/14/21 08:13 Duloxetine HCl (Cymbalta) 20 mg HS PO 07/06/21 21:00 08/28/21 20:29 Duloxetine HCl (Cymbalta) 30 mg HS PO 07/06/21 21:00 08/28/21 20:29 Mirtazapine (Remeron) 7.5 mg HS PO 07/06/21 21:00 07/29/21 18:15 DC 07/28/21 20:09 Olanzapine (ZyPREXA ZYDIS) 2.5 mg PRN Q2HR PRN PO ANXIETY / AGITATION 07/06/21 01:15 08/26/21 03:39 Trazodone HCl (Desyrel) 50 mg PRN QHS PRN PO INSOMNIA 07/06/21 01:15 08/25/21 20:31 Acetaminophen (Tylenol) 650 mg PRN Q4HRS PRN PO MILD PAIN 1-3 07/06/21 10:30 08/01/21 20:19 Aspirin (Aspirin Enteric Coated) 81 mg DAILY PO 07/07/21 09:00 08/28/21 08:37 Atorvastatin Calcium (Lipitor) 10 mg QHS PO 07/06/21 21:00 08/28/21 20:29 Carvedilol (Coreg) 3.125 mg BIDWMEALS PO 07/06/21 17:00 07/25/21 17:52 DC 07/25/21 17:22 Gabapentin (Neurontin) 300 mg BID PO 07/06/21 21:00 08/28/21 20:29 Metformin HCl (Glucophage Xr) 500 mg DAILYWBKFT PO 07/07/21 08:00 08/28/21 08:38 Multi-Ingredient Ointment (Analgesic [place]) 1 inna PRN QID PRN TP PAIN 07/06/21 10:30 UNV Phenytoin Sodium (Dilantin) 500 mg HS PO 07/06/21 21:00 07/07/21 22:27 DC 07/07/21 20:05 Tamsulosin HCl (Flomax) 0.4 mg DAILY PO 07/07/21 09:00 08/28/21 08:37 Polyethylene Glycol (miraLAX) 17 gm PRN DAILY PRN PO 1ST CHOICE CONSTIPATION 07/06/21 10:45 08/13/21 20:07 Non-Formulary Medication (Pravastatin Sodium ) 40 mg DAILY PO 07/07/21 09:00 UNV Phenyleph/Shark Oil/Min Oil/Petrol (Preparation H) 1 inna PRN QID PRN RC RECTAL PAIN 07/06/21 15:15 Phenytoin Sodium (Dilantin) 400 mg HS PO 07/08/21 21:00 07/11/21 23:36 DC 07/11/21 20:35 Albuterol/ Ipratropium (Combivent Respimat 20-100 Mcg) 1 puff QID INH 07/08/21 13:00 08/28/21 20:28 Docusate Sodium (Colace) 100 mg DAILY PO 07/09/21 09:00 08/28/21 08:37 Guaifenesin (Mucinex Er) 600 mg BID PO 07/08/21 21:00 08/28/21 20:29 Magnesium Hydroxide (Milk Of Magnesia) 2,400 mg PRN QHS PRN PO 2nd CHOICE CONSTIPATION 07/08/21 19:30 Cancel Phenytoin Sodium (Dilantin) 200 mg HS PO 07/12/21 21:00 08/28/21 20:30 Phenytoin Sodium (Dilantin) 100 mg DAILY PO 07/12/21 09:00 08/28/21 08:37 Carvedilol (Coreg) 6.25 mg BIDWMEALS PO 07/25/21 18:00 07/25/21 18:07 DC Carvedilol (Coreg) 6.25 mg BIDWMEALS PO 07/26/21 08:00 08/02/21 09:02 DC 08/02/21 08:33 Mirtazapine (Remeron) 15 mg QHS PO 07/29/21 21:00 08/28/21 20:30 Carvedilol (Coreg) 12.5 mg BIDWMEALS PO 08/02/21 17:00 08/28/21 16:56 Albuterol Sulfate (Ventolin Hfa Inhaler) 2 puff PRN Q4HRS PRN INH SHORTNESS OF BREATH 08/02/21 09:15 08/28/21 20:33 Melatonin (Melatonin) 3 mg QHS PO 08/05/21 21:00 08/18/21 14:06 DC 08/17/21 20:06 Oxycodone/ Acetaminophen (Percocet 10/325) 1 tab PRN Q6HRS PRN PO MOD-SEV PAIN 08/15/21 00:15 08/15/21 00:23 Melatonin (Melatonin) 6 mg QHS PO 08/18/21 21:00 08/28/21 20:30 Influenza Virus Vaccine Quadrival (Flulaval Quad [id number] Syringe) 0.5 ml ONCE ONCE VAX IM 08/20/21 09:00 08/20/21 09:01 DC 08/20/21 11:35 I have reviewed the current psychotropics carefully including drug interactions. Risk benefit ratio favors no change other than as noted in my dictated progress note. 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
[2021-08-29] MEDS: traZODone 50 MG TABLET. PO PRN (00:05)
[2021-08-29 06:18] VITALS: BP 125/76
[2021-08-29] MEDS: TAMSULOSIN 0.4 MG CAP.ER.24H. PO SCH (08:18)
[2021-08-29] MEDS: DOCUSATE SODIUM 100 MG CAPSULE PO SCH (08:18)
[2021-08-29] MEDS: ASPIRIN ENTERIC COATED 81 MG TABLET.DR. PO SCH (08:18)
[2021-08-29] MEDS: PHENYTOIN SODIUM EXTENDED 100 MG CAPSULE PO SCH ×2 (08:19→20:42)
[2021-08-29] MEDS: metFORMIN XR 500 MG TAB.ER.24H PO SCH (08:19)
[2021-08-29] MEDS: GABAPENTIN 300 MG CAPSULE. PO SCH ×2 (08:19→20:43)
[2021-08-29] MEDS: CARVEDILOL 12.5 MG TABLET PO SCH ×2 (08:19→17:19)
[2021-08-29] MEDS: IPRATROPIUM/ALBUTEROL 20/100mcg/INH INHALER. INH SCH ×4 (08:21→20:44)
--- NOTE | 2021-08-29 11:18 | NUR ---
ARI received call from Maikel to discuss pt placement. ARI informed Maikel the pt needed to be moved [facility]. Both parties are ready for transfer and Maikel is questioning if this is the best place for pt and ARI explained that pt memory is very poor. He has to be in a Memory Care facility to maintain as [place] or [place] with intermittent care is not appropriate. SW gave examples of having to repeat things multiple times (no STM), pt believing that he can move to [place] when he needs assist with showering, toileting and at time highly agitated and poor sleep pattern that has put up during hours at night. Maikel reports that he spoke with them and did not get the sense of urgency, in which SW stated they have requested for them to come in, tour and discuss billing options, paperwork, etc. Maikel reports that no one ever told him that and would have to see about getting in there over the weekend because he cannot do it during the week. ARI encouraged Maikel to call [facility] so arrangements could be made.
--- NOTE | 2021-08-29 11:24 | NUR ---
ARI left a message for Jessica at [facility] about the conversation had with pt and asked her to call ARI back to discuss the call.
[2021-08-29] MEDS: MELATONIN 3 MG TABLET PO SCH (20:42)
[2021-08-29] MEDS: DULoxetine HCL 20 MG CAPSULE.DR PO SCH (20:43)
[2021-08-29] MEDS: ATORVASTATIN CALCIUM 10 MG TABLET. PO SCH (20:43)
[2021-08-29] MEDS: DULoxetine HCL 30 MG CAPSULE.DR PO SCH (20:43)
[2021-08-29] MEDS: MIRTAZAPINE 15 MG TABLET PO SCH (20:43)
[2021-08-29] MEDS: ALBUTEROL SULFATE 8GM INHALER. INH PRN (20:44)
--- NOTE | 2021-08-29 22:03 | PDOC ---
Exam Note: Leo Note: Please also refer to the separate dictated note~for this date of service dictated separately.~Patient seen individually. Discussed the patient with Nursing staff reviewed the chart.~Reviewed interim history and current functioning. Reviewed vital signs,~Labs/ Radiology~and current medications noted below. Continue current treatment with the changes noted in the dictated addendum note Assessment: Vital Signs/I&O: Vital Signs Date Time Temp Pulse Resp B/P (MAP) Pulse Ox O2 Delivery O2 Flow Rate FiO2 08/29/21 17:19 67 125/76 08/29/21 06:18 97.0 20 92 08/27/21 15:39 Room Air I & O 08/28/21 08/28/21 08/29/21 15:00 23:00 07:00 Intake Total 1080 ml 580 ml Balance 1080 ml 580 ml Labs: Laboratory Tests Test 08/29/21 07:43 Glucose (Fingerstick) 113 mg/dL (70-99) H Current Medications: Meds: Laboratory Tests Test 08/29/21 07:43 Glucose (Fingerstick) 113 mg/dL Current Medications Medications (Trade) Dose Ordered Sig/Aparna Route PRN Reason Start Time Stop Time Status Last Admin Dose Admin Acetaminophen (Tylenol) 650 mg PRN Q6HRS PRN PO MILD PAIN / TEMP > 100.3'F 07/06/21 00:30 Cancel Multi-Ingredient Ointment (Analgesic [place]) 1 inna PRN QID PRN TP MUSCLE PAIN 07/06/21 00:30 08/01/21 20:19 Al Hydroxide/Mg Hydroxide (Mylanta Plus Xs) 15 ml PRN AFTMEALHC PRN PO DYSPEPSIA 07/06/21 00:30 08/15/21 00:24 Magnesium Hydroxide (Milk Of Magnesia) 2,400 mg PRN QHS PRN PO 2ND CHOICE CONSTIPATION 07/06/21 00:30 07/14/21 08:13 Duloxetine HCl (Cymbalta) 20 mg HS PO 07/06/21 21:00 08/29/21 20:43 Duloxetine HCl (Cymbalta) 30 mg HS PO 07/06/21 21:00 08/29/21 20:43 Mirtazapine (Remeron) 7.5 mg HS PO 07/06/21 21:00 07/29/21 18:15 DC 07/28/21 20:09 Olanzapine (ZyPREXA ZYDIS) 2.5 mg PRN Q2HR PRN PO ANXIETY / AGITATION 07/06/21 01:15 08/26/21 03:39 Trazodone HCl (Desyrel) 50 mg PRN QHS PRN PO INSOMNIA 07/06/21 01:15 08/29/21 00:05 Acetaminophen (Tylenol) 650 mg PRN Q4HRS PRN PO MILD PAIN 1-3 07/06/21 10:30 08/01/21 20:19 Aspirin (Aspirin Enteric Coated) 81 mg DAILY PO 07/07/21 09:00 08/29/21 08:18 Atorvastatin Calcium (Lipitor) 10 mg QHS PO 07/06/21 21:00 08/29/21 20:43 Carvedilol (Coreg) 3.125 mg BIDWMEALS PO 07/06/21 17:00 07/25/21 17:52 DC 07/25/21 17:22 Gabapentin (Neurontin) 300 mg BID PO 07/06/21 21:00 08/29/21 20:43 Metformin HCl (Glucophage Xr) 500 mg DAILYWBKFT PO 07/07/21 08:00 08/29/21 08:19 Multi-Ingredient Ointment (Analgesic [place]) 1 inna PRN QID PRN TP PAIN 07/06/21 10:30 UNV Phenytoin Sodium (Dilantin) 500 mg HS PO 07/06/21 21:00 07/07/21 22:27 DC 07/07/21 20:05 Tamsulosin HCl (Flomax) 0.4 mg DAILY PO 07/07/21 09:00 08/29/21 08:18 Polyethylene Glycol (miraLAX) 17 gm PRN DAILY PRN PO 1ST CHOICE CONSTIPATION 07/06/21 10:45 08/13/21 20:07 Non-Formulary Medication (Pravastatin Sodium ) 40 mg DAILY PO 07/07/21 09:00 UNV Phenyleph/Shark Oil/Min Oil/Petrol (Preparation H) 1 inna PRN QID PRN RC RECTAL PAIN 07/06/21 15:15 Phenytoin Sodium (Dilantin) 400 mg HS PO 07/08/21 21:00 07/11/21 23:36 DC 07/11/21 20:35 Albuterol/ Ipratropium (Combivent Respimat 20-100 Mcg) 1 puff QID INH 07/08/21 13:00 08/29/21 20:44 Docusate Sodium (Colace) 100 mg DAILY PO 07/09/21 09:00 08/29/21 08:18 Guaifenesin (Mucinex Er) 600 mg BID PO 07/08/21 21:00 08/29/21 20:43 Magnesium Hydroxide (Milk Of Magnesia) 2,400 mg PRN QHS PRN PO 2nd CHOICE CONSTIPATION 07/08/21 19:30 Cancel Phenytoin Sodium (Dilantin) 200 mg HS PO 07/12/21 21:00 08/29/21 20:42 Phenytoin Sodium (Dilantin) 100 mg DAILY PO 07/12/21 09:00 08/29/21 08:19 Carvedilol (Coreg) 6.25 mg BIDWMEALS PO 07/25/21 18:00 07/25/21 18:07 DC Carvedilol (Coreg) 6.25 mg BIDWMEALS PO 07/26/21 08:00 08/02/21 09:02 DC 08/02/21 08:33 Mirtazapine (Remeron) 15 mg QHS PO 07/29/21 21:00 08/29/21 20:43 Carvedilol (Coreg) 12.5 mg BIDWMEALS PO 08/02/21 17:00 08/29/21 17:19 Albuterol Sulfate (Ventolin Hfa Inhaler) 2 puff PRN Q4HRS PRN INH SHORTNESS OF BREATH 08/02/21 09:15 08/29/21 20:44 Melatonin (Melatonin) 3 mg QHS PO 08/05/21 21:00 08/18/21 14:06 DC 08/17/21 20:06 Oxycodone/ Acetaminophen (Percocet 10/325) 1 tab PRN Q6HRS PRN PO MOD-SEV PAIN 08/15/21 00:15 08/15/21 00:23 Melatonin (Melatonin) 6 mg QHS PO 08/18/21 21:00 08/29/21 20:42 Influenza Virus Vaccine Quadrival (Flulaval Quad [id number] Syringe) 0.5 ml ONCE ONCE VAX IM 08/20/21 09:00 08/20/21 09:01 DC 08/20/21 11:35 I have reviewed the current psychotropics carefully including drug interactions. Risk benefit ratio favors no change other than as noted in my dictated progress note. 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
[2021-08-29 23:55] VITALS: BP 117/72
--- NOTE | 2021-08-30 00:52 | NUR ---
Nursing Note Pt up in hallway grunting and coughing spitting up sputum. O2 sats 96% and RR 20. Tries to refuse a shower, stated "I am not grubby, I do not stink I do not need a shower today or any other day, I'm in bed and ready to go to sleep leave me alone and get out of here!". I told him to get up and get in the shower, not negotiable. Pt took shower soon after. Med compliant and cooperative. Later comes to the window asking for a Dr. Ly, "Hey go in that kitchen and get me Dr. Ly right quick!" I said sorry we are not in supply of Dr. Ly but here is a sprite. Diet sprite given to him and he seemed to be happy with that. Now resting well in bed.
[2021-08-30 05:57] VITALS: BP 180/81
[2021-08-30] MEDS: TAMSULOSIN 0.4 MG CAP.ER.24H. PO SCH (08:20)
[2021-08-30] MEDS: DOCUSATE SODIUM 100 MG CAPSULE PO SCH (08:20)
[2021-08-30] MEDS: CARVEDILOL 12.5 MG TABLET PO SCH ×2 (08:20→17:04)
[2021-08-30] MEDS: GABAPENTIN 300 MG CAPSULE. PO SCH ×2 (08:20→12:20)
[2021-08-30] MEDS: metFORMIN XR 500 MG TAB.ER.24H PO SCH (08:20)
[2021-08-30] MEDS: PHENYTOIN SODIUM EXTENDED 100 MG CAPSULE PO SCH ×2 (08:20→20:42)
[2021-08-30] MEDS: ASPIRIN ENTERIC COATED 81 MG TABLET.DR. PO SCH (08:20)
[2021-08-30] MEDS: IPRATROPIUM/ALBUTEROL 20/100mcg/INH INHALER. INH SCH ×4 (08:24→20:43)
--- NOTE | 2021-08-30 09:27 | NUR ---
Pt has been present and visible on the unit. His interactions with others have been appropriate. He is compliant with whole medications and is able to make his needs known to staff. Pt absent of SI/HI/VH/AH/delusions/pain at this time. He has been observed to be frequently yodeling. Plan of care continues, will pass to next shift.
--- NOTE | 2021-08-30 12:39 | NUR ---
Pt ordered Gabapentin 300 mg PO BID. 2nd dose administered during lunch. Dr Parra notified, orders given to restart Gabapentin 08/31 scheduled for 0900 and 2100.
[2021-08-30] MEDS ORDERED: GABAPENTIN 300 MG CAPSULE. PO ONE (12:45)
[2021-08-30] MEDS ORDERED: GABAPENTIN 100 MG CAPSULE. PO ONE ×2 (14:00→21:00)
[2021-08-30 15:41] VITALS: BP 159/74
[2021-08-30] MEDS: MIRTAZAPINE 15 MG TABLET PO SCH (20:42)
[2021-08-30] MEDS: ATORVASTATIN CALCIUM 10 MG TABLET. PO SCH (20:42)
[2021-08-30] MEDS: DULoxetine HCL 20 MG CAPSULE.DR PO SCH (20:42)
[2021-08-30] MEDS: MELATONIN 3 MG TABLET PO SCH (20:42)
[2021-08-30] MEDS: DULoxetine HCL 30 MG CAPSULE.DR PO SCH (20:42)
[2021-08-30] MEDS: traZODone 50 MG TABLET. PO PRN (20:43)
--- NOTE | 2021-08-30 22:05 | PDOC ---
Exam Note: Leo Note: Please also refer to the separate dictated note~for this date of service dictated separately.~Patient seen individually. Discussed the patient with Nursing staff reviewed the chart.~Reviewed interim history and current functioning. Reviewed vital signs,~Labs/ Radiology~and current medications noted below. Continue current treatment with the changes noted in the dictated addendum note Assessment: Vital Signs/I&O: Vital Signs Date Time Temp Pulse Resp B/P (MAP) Pulse Ox O2 Delivery O2 Flow Rate FiO2 08/30/21 17:04 104 159/74 08/30/21 15:41 97.8 24 95 Room Air I & O 08/29/21 08/29/21 08/30/21 15:00 23:00 07:00 Intake Total 840 ml 240 ml 240 ml Balance 840 ml 240 ml 240 ml Labs: Laboratory Tests Test 08/30/21 07:28 08/30/21 16:23 Glucose (Fingerstick) 119 mg/dL (70-99) H 116 mg/dL (70-99) H Current Medications: Meds: Laboratory Tests Test 08/30/21 07:28 08/30/21 16:23 Glucose (Fingerstick) 119 mg/dL 116 mg/dL Current Medications Medications (Trade) Dose Ordered Sig/Aparna Route PRN Reason Start Time Stop Time Status Last Admin Dose Admin Acetaminophen (Tylenol) 650 mg PRN Q6HRS PRN PO MILD PAIN / TEMP > 100.3'F 07/06/21 00:30 Cancel Multi-Ingredient Ointment (Analgesic [place]) 1 inna PRN QID PRN TP MUSCLE PAIN 07/06/21 00:30 08/01/21 20:19 Al Hydroxide/Mg Hydroxide (Mylanta Plus Xs) 15 ml PRN AFTMEALHC PRN PO DYSPEPSIA 07/06/21 00:30 08/15/21 00:24 Magnesium Hydroxide (Milk Of Magnesia) 2,400 mg PRN QHS PRN PO 2ND CHOICE CONSTIPATION 07/06/21 00:30 07/14/21 08:13 Duloxetine HCl (Cymbalta) 20 mg HS PO 07/06/21 21:00 08/30/21 20:42 Duloxetine HCl (Cymbalta) 30 mg HS PO 07/06/21 21:00 08/30/21 20:42 Mirtazapine (Remeron) 7.5 mg HS PO 07/06/21 21:00 07/29/21 18:15 DC 07/28/21 20:09 Olanzapine (ZyPREXA ZYDIS) 2.5 mg PRN Q2HR PRN PO ANXIETY / AGITATION 07/06/21 01:15 08/26/21 03:39 Trazodone HCl (Desyrel) 50 mg PRN QHS PRN PO INSOMNIA 07/06/21 01:15 08/30/21 20:43 Acetaminophen (Tylenol) 650 mg PRN Q4HRS PRN PO MILD PAIN 1-3 07/06/21 10:30 08/01/21 20:19 Aspirin (Aspirin Enteric Coated) 81 mg DAILY PO 07/07/21 09:00 08/30/21 08:20 Atorvastatin Calcium (Lipitor) 10 mg QHS PO 07/06/21 21:00 08/30/21 20:42 Carvedilol (Coreg) 3.125 mg BIDWMEALS PO 07/06/21 17:00 07/25/21 17:52 DC 07/25/21 17:22 Gabapentin (Neurontin) 300 mg BID PO 07/06/21 21:00 08/30/21 12:29 DC 08/30/21 08:20 Metformin HCl (Glucophage Xr) 500 mg DAILYWBKFT PO 07/07/21 08:00 08/30/21 08:20 Multi-Ingredient Ointment (Analgesic [place]) 1 inna PRN QID PRN TP PAIN 07/06/21 10:30 UNV Phenytoin Sodium (Dilantin) 500 mg HS PO 07/06/21 21:00 07/07/21 22:27 DC 07/07/21 20:05 Tamsulosin HCl (Flomax) 0.4 mg DAILY PO 07/07/21 09:00 08/30/21 08:20 Polyethylene Glycol (miraLAX) 17 gm PRN DAILY PRN PO 1ST CHOICE CONSTIPATION 07/06/21 10:45 08/13/21 20:07 Non-Formulary Medication (Pravastatin Sodium ) 40 mg DAILY PO 07/07/21 09:00 UNV Phenyleph/Shark Oil/Min Oil/Petrol (Preparation H) 1 inna PRN QID PRN RC RECTAL PAIN 07/06/21 15:15 Phenytoin Sodium (Dilantin) 400 mg HS PO 07/08/21 21:00 07/11/21 23:36 DC 07/11/21 20:35 Albuterol/ Ipratropium (Combivent Respimat 20-100 Mcg) 1 puff QID INH 07/08/21 13:00 08/30/21 20:43 Docusate Sodium (Colace) 100 mg DAILY PO 07/09/21 09:00 08/30/21 08:20 Guaifenesin (Mucinex Er) 600 mg BID PO 07/08/21 21:00 08/30/21 20:42 Magnesium Hydroxide (Milk Of Magnesia) 2,400 mg PRN QHS PRN PO 2nd CHOICE CONSTIPATION 07/08/21 19:30 Cancel Phenytoin Sodium (Dilantin) 200 mg HS PO 07/12/21 21:00 08/30/21 20:42 Phenytoin Sodium (Dilantin) 100 mg DAILY PO 07/12/21 09:00 08/30/21 08:20 Carvedilol (Coreg) 6.25 mg BIDWMEALS PO 07/25/21 18:00 07/25/21 18:07 DC Carvedilol (Coreg) 6.25 mg BIDWMEALS PO 07/26/21 08:00 08/02/21 09:02 DC 08/02/21 08:33 Mirtazapine (Remeron) 15 mg QHS PO 07/29/21 21:00 08/30/21 20:42 Carvedilol (Coreg) 12.5 mg BIDWMEALS PO 08/02/21 17:00 08/30/21 17:04 Albuterol Sulfate (Ventolin Hfa Inhaler) 2 puff PRN Q4HRS PRN INH SHORTNESS OF BREATH 08/02/21 09:15 08/29/21 20:44 Melatonin (Melatonin) 3 mg QHS PO 08/05/21 21:00 08/18/21 14:06 DC 08/17/21 20:06 Oxycodone/ Acetaminophen (Percocet 10/325) 1 tab PRN Q6HRS PRN PO MOD-SEV PAIN 08/15/21 00:15 08/15/21 00:23 Melatonin (Melatonin) 6 mg QHS PO 08/18/21 21:00 08/30/21 20:42 Influenza Virus Vaccine Quadrival (Flulaval Quad Syringe) 0.5 ml ONCE ONCE VAX IM 08/20/21 09:00 08/20/21 09:01 DC 08/20/21 11:35 Gabapentin (Neurontin) 100 mg 1X ONCE PO 08/30/21 14:00 08/30/21 14:01 Cancel Gabapentin (Neurontin) 200 mg 1X ONCE PO 08/30/21 21:00 08/30/21 21:01 Cancel Gabapentin (Neurontin) 300 mg BID PO 08/31/21 09:00 Gabapentin (Neurontin) 300 mg 1X ONCE PO 08/30/21 12:45 08/30/21 12:46 DC 08/30/21 12:42 Current Medications Medications (Trade) Dose Ordered Sig/Aparna Route PRN Reason Start Time Stop Time Status Last Admin Dose Admin Gabapentin (Neurontin) 300 mg 1X ONCE PO 08/30/21 12:45 08/30/21 12:46 DC 08/30/21 12:42 I have reviewed the current psychotropics carefully including drug interactions. Risk benefit ratio favors no change other than as noted in my dictated progress note. 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
--- NOTE | 2021-08-30 23:31 | NUR ---
Pt sitting calmly in his room this evening occasionally singing and yodeling. Compliant with whole medications. Interactive and cooperative.
[2021-08-31 06:20] VITALS: BP 168/88
[2021-08-31] MEDS: CARVEDILOL 12.5 MG TABLET PO SCH ×2 (08:17→17:22)
[2021-08-31] MEDS: ASPIRIN ENTERIC COATED 81 MG TABLET.DR. PO SCH (08:17)
[2021-08-31] MEDS: TAMSULOSIN 0.4 MG CAP.ER.24H. PO SCH (08:17)
[2021-08-31] MEDS: metFORMIN XR 500 MG TAB.ER.24H PO SCH (08:18)
[2021-08-31] MEDS: DOCUSATE SODIUM 100 MG CAPSULE PO SCH (08:18)
[2021-08-31] MEDS: PHENYTOIN SODIUM EXTENDED 100 MG CAPSULE PO SCH ×2 (08:18→20:59)
[2021-08-31 08:56] LABS: BASO # 0.1 x10^3/uL (0.0-0.2); BASO % 1 % (0-3); EOS # 0.8 x10^3/uL (0.0-0.7); EOS % 12 % (0-3); HEMATOCRIT 36.9 % (39.0-53.0); HEMOGLOBIN 12.2 g/dL (13.0-17.5); LYMPH # 2.1 x10^3/uL (1.0-4.8); LYMPH % 32 % (24-48); MEAN CORPUSCULAR HEMOGLOBIN 34 pg (25-35); MEAN CORPUSCULAR HGB CONC 33 g/dL (31-37); MEAN CORPUSCULAR VOLUME 104 fL (79-100); MONO # 0.6 x10^3/uL (0.0-1.1); MONO % 9 % (0-9); NEUT # 3.2 x10^3uL (1.8-7.7); NEUT % 47 % (31-73); PLATELET COUNT 103 x10^3/uL (140-400); RED BLOOD COUNT 3.55 x10^6/uL (4.30-5.70); RED CELL DISTRIBUTION WIDTH 13.8 % (11.5-14.5); WHITE BLOOD COUNT 6.8 x10^3/uL (4.0-11.0)
[2021-08-31 08:57] LABS: ALBUMIN 3.4 g/dL (3.4-5.0); ALBUMIN/GLOBULIN RATIO 0.9 (1.0-1.7); CALCIUM 9.2 mg/dL (8.5-10.1); CREATININE 1.1 mg/dL (0.7-1.3); GFR 64.6; POTASSIUM 4.3 mmol/L (3.5-5.1); TOTAL BILIRUBIN 0.3 mg/dL (0.2-1.0); TOTAL PROTEIN 7.3 g/dL (6.4-8.2)
[2021-08-31] MEDS: IPRATROPIUM/ALBUTEROL 20/100mcg/INH INHALER. INH SCH ×4 (09:00→21:00)
--- NOTE | 2021-08-31 09:02 | PDOC ---
Exam Note: Leo Note: This note is a late entry for 08/28/2021 covers elements not covered in my initial note. Subjective: This is my first visit with the patient since 08/16/[address] Warren covered for me during my vacation. Reviewed information with Dr. Warren, reviewed current and past records, reviewed interim history and circumstances prompting this referral for inpatient psychiatric stabilization. The patient was seen individually in the evening of 08/28/2021 in her room with India KOWALSKI, discussed and reviewed the chart. The patient slept 5-3/4 hours previous night. Social service staff are trying to contact the patients nephew who is also the power of real estate associate attorney to help facilitate placement for the patient but so far has been unsuccessful thus delaying the patients discharge from here. Review of Systems: Impaired ambulation in wheelchair. No CV, , pulmonary, eye, ENT system symptoms on review. Mental Status Exam: The patient is reasonably oriented to place and situation but confused about the date. I met with him in his room. Insight, judgment, recent memory is impaired. Remote is better. Language function intact. Attention span short. Mood and affect somewhat anxious at times. Laboratory Data: Reviewed. Impression: Major depressive disorder, in partial remission. Major neurocognitive disorder, Alzheimer, vascular with delusion, depression, behavioral disturbance. Anxiety disorder unspecified. Impulse control disorder unspecified. Plan: Continue current psychotropics from initial note. Continue Dilantin level is therapeutic, Remeron, gabapentin, Cymbalta, trazodone p.r.n., Zyprexa p.r.n., melatonin 6 mg h.s. Assessment: Vital Signs/I&O: Vital Signs Date Time Temp Pulse Resp B/P (MAP) Pulse Ox O2 Delivery O2 Flow Rate FiO2 08/31/21 08:17 89 168/88 08/31/21 06:20 97.2 22 93 08/30/21 15:41 Room Air I & O 08/30/21 08/30/21 08/31/21 15:00 23:00 07:00 Intake Total 1320 ml 720 ml Balance 1320 ml 720 ml Labs: Laboratory Tests Test 08/30/21 16:23 08/31/21 07:31 08/31/21 07:55 Glucose (Fingerstick) 116 mg/dL (70-99) H 141 mg/dL (70-99) H White Blood Count 6.8 x10^3/uL (4.0-11.0) Red Blood Count 3.55 x10^6/uL (4.30-5.70) L Hemoglobin 12.2 g/dL (13.0-17.5) L Hematocrit 36.9 % (39.0-53.0) L Mean Corpuscular Volume 104 fL (79-100) H Mean Corpuscular Hemoglobin 34 pg (25-35) Mean Corpuscular Hemoglobin Concent 33 g/dL (31-37) Red Cell Distribution Width 13.8 % (11.5-14.5) Platelet Count 103 x10^3/uL (140-400) L Neutrophils (%) (Auto) 47 % (31-73) Lymphocytes (%) (Auto) 32 % (24-48) Monocytes (%) (Auto) 9 % (0-9) Eosinophils (%) (Auto) 12 % (0-3) H Basophils (%) (Auto) 1 % (0-3) Neutrophils # (Auto) 3.2 x10^3uL (1.8-7.7) Lymphocytes # (Auto) 2.1 x10^3/uL (1.0-4.8) Monocytes # (Auto) 0.6 x10^3/uL (0.0-1.1) Eosinophils # (Auto) 0.8 x10^3/uL (0.0-0.7) H Basophils # (Auto) 0.1 x10^3/uL (0.0-0.2) Current Medications: Meds: Laboratory Tests Test 08/30/21 16:23 08/31/21 07:31 08/31/21 07:55 Glucose (Fingerstick) 116 mg/dL 141 mg/dL White Blood Count 6.8 x10^3/uL Red Blood Count 3.55 x10^6/uL Hemoglobin 12.2 g/dL Hematocrit 36.9 % Mean Corpuscular Volume 104 fL Mean Corpuscular Hemoglobin 34 pg Mean Corpuscular Hemoglobin Concent 33 g/dL Red Cell Distribution Width 13.8 % Platelet Count 103 x10^3/uL Neutrophils (%) (Auto) 47 % Lymphocytes (%) (Auto) 32 % Monocytes (%) (Auto) 9 % Eosinophils (%) (Auto) 12 % Basophils (%) (Auto) 1 % Neutrophils # (Auto) 3.2 x10^3uL Lymphocytes # (Auto) 2.1 x10^3/uL Monocytes # (Auto) 0.6 x10^3/uL Eosinophils # (Auto) 0.8 x10^3/uL Basophils # (Auto) 0.1 x10^3/uL Current Medications Medications (Trade) Dose Ordered Sig/Aparna Route PRN Reason Start Time Stop Time Status Last Admin Dose Admin Acetaminophen (Tylenol) 650 mg PRN Q6HRS PRN PO MILD PAIN / TEMP > 100.3'F 07/06/21 00:30 Cancel Multi-Ingredient Ointment (Analgesic [place]) 1 inna PRN QID PRN TP MUSCLE PAIN 07/06/21 00:30 08/01/21 20:19 Al Hydroxide/Mg Hydroxide (Mylanta Plus Xs) 15 ml PRN AFTMEALHC PRN PO DYSPEPSIA 07/06/21 00:30 08/15/21 00:24 Magnesium Hydroxide (Milk Of Magnesia) 2,400 mg PRN QHS PRN PO 2ND CHOICE CONSTIPATION 07/06/21 00:30 07/14/21 08:13 Duloxetine HCl (Cymbalta) 20 mg HS PO 07/06/21 21:00 08/30/21 20:42 Duloxetine HCl (Cymbalta) 30 mg HS PO 07/06/21 21:00 08/30/21 20:42 Mirtazapine (Remeron) 7.5 mg HS PO 07/06/21 21:00 07/29/21 18:15 DC 07/28/21 20:09 Olanzapine (ZyPREXA ZYDIS) 2.5 mg PRN Q2HR PRN PO ANXIETY / AGITATION 07/06/21 01:15 08/26/21 03:39 Trazodone HCl (Desyrel) 50 mg PRN QHS PRN PO INSOMNIA 07/06/21 01:15 08/30/21 20:43 Acetaminophen (Tylenol) 650 mg PRN Q4HRS PRN PO MILD PAIN 1-3 07/06/21 10:30 08/01/21 20:19 Aspirin (Aspirin Enteric Coated) 81 mg DAILY PO 07/07/21 09:00 08/31/21 08:17 Atorvastatin Calcium (Lipitor) 10 mg QHS PO 07/06/21 21:00 08/30/21 20:42 Carvedilol (Coreg) 3.125 mg BIDWMEALS PO 07/06/21 17:00 07/25/21 17:52 DC 07/25/21 17:22 Gabapentin (Neurontin) 300 mg BID PO 07/06/21 21:00 08/30/21 12:29 DC 08/30/21 08:20 Metformin HCl (Glucophage Xr) 500 mg DAILYWBKFT PO 07/07/21 08:00 08/31/21 08:18 Multi-Ingredient Ointment (Analgesic [place]) 1 inna PRN QID PRN TP PAIN 07/06/21 10:30 UNV Phenytoin Sodium (Dilantin) 500 mg HS PO 07/06/21 21:00 07/07/21 22:27 DC 07/07/21 20:05 Tamsulosin HCl (Flomax) 0.4 mg DAILY PO 07/07/21 09:00 08/31/21 08:17 Polyethylene Glycol (miraLAX) 17 gm PRN DAILY PRN PO 1ST CHOICE CONSTIPATION 07/06/21 10:45 08/13/21 20:07 Non-Formulary Medication (Pravastatin Sodium ) 40 mg DAILY PO 07/07/21 09:00 UNV Phenyleph/Shark Oil/Min Oil/Petrol (Preparation H) 1 inna PRN QID PRN RC RECTAL PAIN 07/06/21 15:15 Phenytoin Sodium (Dilantin) 400 mg HS PO 07/08/21 21:00 07/11/21 23:36 DC 07/11/21 20:35 Albuterol/ Ipratropium (Combivent Respimat 20-100 Mcg) 1 puff QID INH 07/08/21 13:00 08/30/21 20:43 Docusate Sodium (Colace) 100 mg DAILY PO 07/09/21 09:00 08/31/21 08:18 Guaifenesin (Mucinex Er) 600 mg BID PO 07/08/21 21:00 08/31/21 08:17 Magnesium Hydroxide (Milk Of Magnesia) 2,400 mg PRN QHS PRN PO 2nd CHOICE CONSTIPATION 07/08/21 19:30 Cancel Phenytoin Sodium (Dilantin) 200 mg HS PO 07/12/21 21:00 08/30/21 20:42 Phenytoin Sodium (Dilantin) 100 mg DAILY PO 07/12/21 09:00 08/31/21 08:18 Carvedilol (Coreg) 6.25 mg BIDWMEALS PO 07/25/21 18:00 07/25/21 18:07 DC Carvedilol (Coreg) 6.25 mg BIDWMEALS PO 07/26/21 08:00 08/02/21 09:02 DC 08/02/21 08:33 Mirtazapine (Remeron) 15 mg QHS PO 07/29/21 21:00 08/30/21 20:42 Carvedilol (Coreg) 12.5 mg BIDWMEALS PO 08/02/21 17:00 08/31/21 08:17 Albuterol Sulfate (Ventolin Hfa Inhaler) 2 puff PRN Q4HRS PRN INH SHORTNESS OF BREATH 08/02/21 09:15 08/29/21 20:44 Melatonin (Melatonin) 3 mg QHS PO 08/05/21 21:00 08/18/21 14:06 DC 08/17/21 20:06 Oxycodone/ Acetaminophen (Percocet 10/325) 1 tab PRN Q6HRS PRN PO MOD-SEV PAIN 08/15/21 00:15 08/15/21 00:23 Melatonin (Melatonin) 6 mg QHS PO 08/18/21 21:00 08/30/21 20:42 Influenza Virus Vaccine Quadrival (Flulaval Quad [id number] Syringe) 0.5 ml ONCE ONCE VAX IM 08/20/21 09:00 08/20/21 09:01 DC 08/20/21 11:35 Gabapentin (Neurontin) 100 mg 1X ONCE PO 08/30/21 14:00 08/30/21 14:01 Cancel Gabapentin (Neurontin) 200 mg 1X ONCE PO 08/30/21 21:00 08/30/21 21:01 Cancel Gabapentin (Neurontin) 300 mg BID PO 08/31/21 09:00 Gabapentin (Neurontin) 300 mg 1X ONCE PO 08/30/21 12:45 08/30/21 12:46 DC 08/30/21 12:42 Current Medications Medications (Trade) Dose Ordered Sig/Aparna Route PRN Reason Start Time Stop Time Status Last Admin Dose Admin Gabapentin (Neurontin) 300 mg 1X ONCE PO 08/30/21 12:45 08/30/21 12:46 DC 08/30/21 12:42 I have reviewed the current psychotropics carefully including drug interactions. Risk benefit ratio favors no change other than as noted in my dictated progress note. Diagnosis: Problems: (1) Major depressive disorder in partial remission (2) Anxiety disorder, unspecified (3) Impulse control disorder, unspecified (4) Major neurocognitive disorder (5) Dementia in Alzheimer's disease with depression (6) Dementia in Alzheimer's disease with delusions (7) Dementia of the Alzheimer's type with early onset with behavioral disturbance (8) Dementia, vascular, with depression (9) Dementia, vascular, with delusions NIK LOYA MD Aug 31, 2021 09:02
[2021-08-31] MEDS: GABAPENTIN 300 MG CAPSULE. PO SCH ×2 (09:11→21:00)
--- NOTE | 2021-08-31 09:27 | PDOC ---
Exam Note: Leo Note: This note is a late entry for 08/29/2021 covers elements not covered in my initial note. Subjective: The patient was seen individually in the evening of 08/29/2021 with Aleah KOWALSKI, discussed and reviewed the chart. The patient slept 4-1/2 hours previous night. Per nursing staff attempts are being made to contact the nephew who is the power of trial attorney to help with placement for the patient. Overall the patient remains confused, withdrawn, not aggressive. Review of Systems: Ambulation impaired in wheelchair. No CV, , pulmonary, eye, ENT system symptoms on review. Reliability poor. Mental Status Exam: The patient is oriented to himself and situation. Insight and judgment, recent and remote memory, attention and concentration, fund of knowledge is poor consistent with his diagnoses. Remote memory is better than recent. Laboratory Data: Reviewed. Impression: Major depressive disorder, in partial remission. Major neurocognitive disorder, Alzheimer, vascular with delusion, depression, behavioral disturbance. Anxiety disorder unspecified. Impulse control disorder unspecified. Plan: Continue current psychotropics from initial note. Arrange placement per social service staff as soon as possible. Assessment: Vital Signs/I&O: Vital Signs Date Time Temp Pulse Resp B/P (MAP) Pulse Ox O2 Delivery O2 Flow Rate FiO2 08/31/21 08:17 89 168/88 08/31/21 06:20 97.2 22 93 08/30/21 15:41 Room Air I & O 08/30/21 08/30/21 08/31/21 15:00 23:00 07:00 Intake Total 1320 ml 720 ml Balance 1320 ml 720 ml Labs: Laboratory Tests Test 08/30/21 16:23 08/31/21 07:31 08/31/21 07:55 Glucose (Fingerstick) 116 mg/dL (70-99) H 141 mg/dL (70-99) H White Blood Count 6.8 x10^3/uL (4.0-11.0) Red Blood Count 3.55 x10^6/uL (4.30-5.70) L Hemoglobin 12.2 g/dL (13.0-17.5) L Hematocrit 36.9 % (39.0-53.0) L Mean Corpuscular Volume 104 fL (79-100) H Mean Corpuscular Hemoglobin 34 pg (25-35) Mean Corpuscular Hemoglobin Concent 33 g/dL (31-37) Red Cell Distribution Width 13.8 % (11.5-14.5) Platelet Count 103 x10^3/uL (140-400) L Neutrophils (%) (Auto) 47 % (31-73) Lymphocytes (%) (Auto) 32 % (24-48) Monocytes (%) (Auto) 9 % (0-9) Eosinophils (%) (Auto) 12 % (0-3) H Basophils (%) (Auto) 1 % (0-3) Neutrophils # (Auto) 3.2 x10^3uL (1.8-7.7) Lymphocytes # (Auto) 2.1 x10^3/uL (1.0-4.8) Monocytes # (Auto) 0.6 x10^3/uL (0.0-1.1) Eosinophils # (Auto) 0.8 x10^3/uL (0.0-0.7) H Basophils # (Auto) 0.1 x10^3/uL (0.0-0.2) Sodium Level 141 mmol/L (136-145) Potassium Level 4.3 mmol/L (3.5-5.1) Chloride Level 104 mmol/L (98-107) Carbon Dioxide Level 32 mmol/L (21-32) Anion Gap 5 (6-14) L Blood Urea Nitrogen 48 mg/dL (8-26) H Creatinine 1.1 mg/dL (0.7-1.3) Estimated GFR (Cockcroft-Gault) 64.6 BUN/Creatinine Ratio 44 (6-20) H Glucose Level 140 mg/dL (70-99) H Calcium Level 9.2 mg/dL (8.5-10.1) Total Bilirubin 0.3 mg/dL (0.2-1.0) Aspartate Amino Transferase (AST) 17 U/L (15-37) Alanine Aminotransferase (ALT) 25 U/L (16-63) Alkaline Phosphatase 107 U/L (46-116) Total Protein 7.3 g/dL (6.4-8.2) Albumin 3.4 g/dL (3.4-5.0) Albumin/Globulin Ratio 0.9 (1.0-1.7) L Current Medications: Meds: Laboratory Tests Test 08/30/21 16:23 08/31/21 07:31 08/31/21 07:55 Glucose (Fingerstick) 116 mg/dL 141 mg/dL White Blood Count 6.8 x10^3/uL Red Blood Count 3.55 x10^6/uL Hemoglobin 12.2 g/dL Hematocrit 36.9 % Mean Corpuscular Volume 104 fL Mean Corpuscular Hemoglobin 34 pg Mean Corpuscular Hemoglobin Concent 33 g/dL Red Cell Distribution Width 13.8 % Platelet Count 103 x10^3/uL Neutrophils (%) (Auto) 47 % Lymphocytes (%) (Auto) 32 % Monocytes (%) (Auto) 9 % Eosinophils (%) (Auto) 12 % Basophils (%) (Auto) 1 % Neutrophils # (Auto) 3.2 x10^3uL Lymphocytes # (Auto) 2.1 x10^3/uL Monocytes # (Auto) 0.6 x10^3/uL Eosinophils # (Auto) 0.8 x10^3/uL Basophils # (Auto) 0.1 x10^3/uL Sodium Level 141 mmol/L Potassium Level 4.3 mmol/L Chloride Level 104 mmol/L Carbon Dioxide Level 32 mmol/L Anion Gap 5 Blood Urea Nitrogen 48 mg/dL Creatinine 1.1 mg/dL Estimated GFR (Cockcroft-Gault) 64.6 BUN/Creatinine Ratio 44 Glucose Level 140 mg/dL Calcium Level 9.2 mg/dL Total Bilirubin 0.3 mg/dL Aspartate Amino Transf (AST/SGOT) 17 U/L Alanine Aminotransferase (ALT/SGPT) 25 U/L Alkaline Phosphatase 107 U/L Total Protein 7.3 g/dL Albumin 3.4 g/dL Albumin/Globulin Ratio 0.9 Current Medications Medications (Trade) Dose Ordered Sig/Aparna Route PRN Reason Start Time Stop Time Status Last Admin Dose Admin Acetaminophen (Tylenol) 650 mg PRN Q6HRS PRN PO MILD PAIN / TEMP > 100.3'F 07/06/21 00:30 Cancel Multi-Ingredient Ointment (Analgesic [place]) 1 inna PRN QID PRN TP MUSCLE PAIN 07/06/21 00:30 08/01/21 20:19 Al Hydroxide/Mg Hydroxide (Mylanta Plus Xs) 15 ml PRN AFTMEALHC PRN PO DYSPEPSIA 07/06/21 00:30 08/15/21 00:24 Magnesium Hydroxide (Milk Of Magnesia) 2,400 mg PRN QHS PRN PO 2ND CHOICE CONSTIPATION 07/06/21 00:30 07/14/21 08:13 Duloxetine HCl (Cymbalta) 20 mg HS PO 07/06/21 21:00 08/30/21 20:42 Duloxetine HCl (Cymbalta) 30 mg HS PO 07/06/21 21:00 08/30/21 20:42 Mirtazapine (Remeron) 7.5 mg HS PO 07/06/21 21:00 07/29/21 18:15 DC 07/28/21 20:09 Olanzapine (ZyPREXA ZYDIS) 2.5 mg PRN Q2HR PRN PO ANXIETY / AGITATION 07/06/21 01:15 08/26/21 03:39 Trazodone HCl (Desyrel) 50 mg PRN QHS PRN PO INSOMNIA 07/06/21 01:15 08/30/21 20:43 Acetaminophen (Tylenol) 650 mg PRN Q4HRS PRN PO MILD PAIN 1-3 07/06/21 10:30 08/01/21 20:19 Aspirin (Aspirin Enteric Coated) 81 mg DAILY PO 07/07/21 09:00 08/31/21 08:17 Atorvastatin Calcium (Lipitor) 10 mg QHS PO 07/06/21 21:00 08/30/21 20:42 Carvedilol (Coreg) 3.125 mg BIDWMEALS PO 07/06/21 17:00 07/25/21 17:52 DC 07/25/21 17:22 Gabapentin (Neurontin) 300 mg BID PO 07/06/21 21:00 08/30/21 12:29 DC 08/30/21 08:20 Metformin HCl (Glucophage Xr) 500 mg DAILYWBKFT PO 07/07/21 08:00 08/31/21 08:18 Multi-Ingredient Ointment (Analgesic [place]) 1 inna PRN QID PRN TP PAIN 07/06/21 10:30 UNV Phenytoin Sodium (Dilantin) 500 mg HS PO 07/06/21 21:00 07/07/21 22:27 DC 07/07/21 20:05 Tamsulosin HCl (Flomax) 0.4 mg DAILY PO 07/07/21 09:00 08/31/21 08:17 Polyethylene Glycol (miraLAX) 17 gm PRN DAILY PRN PO 1ST CHOICE CONSTIPATION 07/06/21 10:45 08/13/21 20:07 Non-Formulary Medication (Pravastatin Sodium ) 40 mg DAILY PO 07/07/21 09:00 UNV Phenyleph/Shark Oil/Min Oil/Petrol (Preparation H) 1 inna PRN QID PRN RC RECTAL PAIN 07/06/21 15:15 Phenytoin Sodium (Dilantin) 400 mg HS PO 07/08/21 21:00 07/11/21 23:36 DC 07/11/21 20:35 Albuterol/ Ipratropium (Combivent Respimat 20-100 Mcg) 1 puff QID INH 07/08/21 13:00 08/30/21 20:43 Docusate Sodium (Colace) 100 mg DAILY PO 07/09/21 09:00 08/31/21 08:18 Guaifenesin (Mucinex Er) 600 mg BID PO 07/08/21 21:00 08/31/21 08:17 Magnesium Hydroxide (Milk Of Magnesia) 2,400 mg PRN QHS PRN PO 2nd CHOICE CONSTIPATION 07/08/21 19:30 Cancel Phenytoin Sodium (Dilantin) 200 mg HS PO 07/12/21 21:00 08/30/21 20:42 Phenytoin Sodium (Dilantin) 100 mg DAILY PO 07/12/21 09:00 08/31/21 08:18 Carvedilol (Coreg) 6.25 mg BIDWMEALS PO 07/25/21 18:00 07/25/21 18:07 DC Carvedilol (Coreg) 6.25 mg BIDWMEALS PO 07/26/21 08:00 08/02/21 09:02 DC 08/02/21 08:33 Mirtazapine (Remeron) 15 mg QHS PO 07/29/21 21:00 08/30/21 20:42 Carvedilol (Coreg) 12.5 mg BIDWMEALS PO 08/02/21 17:00 08/31/21 08:17 Albuterol Sulfate (Ventolin Hfa Inhaler) 2 puff PRN Q4HRS PRN INH SHORTNESS OF BREATH 08/02/21 09:15 08/29/21 20:44 Melatonin (Melatonin) 3 mg QHS PO 08/05/21 21:00 08/18/21 14:06 DC 08/17/21 20:06 Oxycodone/ Acetaminophen (Percocet 10) 1 tab PRN Q6HRS PRN PO MOD-SEV PAIN 08/15/21 00:15 08/15/21 00:23 Melatonin (Melatonin) 6 mg QHS PO 08/18/21 21:00 08/30/21 20:42 Influenza Virus Vaccine Quadrival (Flulaval Quad Syringe) 0.5 ml ONCE ONCE VAX IM 08/20/21 09:00 08/20/21 09:01 DC 08/20/21 11:35 Gabapentin (Neurontin) 100 mg 1X ONCE PO 08/30/21 14:00 08/30/21 14:01 Cancel Gabapentin (Neurontin) 200 mg 1X ONCE PO 08/30/21 21:00 08/30/21 21:01 Cancel Gabapentin (Neurontin) 300 mg BID PO 08/31/21 09:00 08/31/21 09:11 Gabapentin (Neurontin) 300 mg 1X ONCE PO 08/30/21 12:45 08/30/21 12:46 DC 08/30/21 12:42 Current Medications Medications (Trade) Dose Ordered Sig/Aparna Route PRN Reason Start Time Stop Time Status Last Admin Dose Admin Gabapentin (Neurontin) 300 mg BID PO 08/31/21 09:00 08/31/21 09:11 Gabapentin (Neurontin) 300 mg 1X ONCE PO 08/30/21 12:45 08/30/21 12:46 DC 08/30/21 12:42 I have reviewed the current psychotropics carefully including drug interactions. Risk benefit ratio favors no change other than as noted in my dictated progress note. Diagnosis: Problems: (1) Major depressive disorder in partial remission (2) Impulse control disorder, unspecified (3) Anxiety disorder, unspecified (4) Dementia in Alzheimer's disease with depression (5) Dementia in Alzheimer's disease with delusions (6) Dementia of the Alzheimer's type with early onset with behavioral disturbance (7) Dementia, vascular, with delusions (8) Dementia, vascular, with depression (9) Major neurocognitive disorder NIK LOYA MD Aug 31, 2021 09:27
[2021-08-31] MEDS: ACETAMINOPHEN 325 MG TABLET PO PRN (14:06)
[2021-08-31 16:07] VITALS: BP 125/75
--- NOTE | 2021-08-31 16:10 | NUR ---
Nursing note This shift this nurse was sitting in the day room with residents when Nasir started to get agitated toward another resident who was talking to this nurse. Nasir escalated himself however was eventually re- directable when from other resident
[2021-08-31] MEDS: DULoxetine HCL 30 MG CAPSULE.DR PO SCH (20:58)
[2021-08-31] MEDS: DULoxetine HCL 20 MG CAPSULE.DR PO SCH (20:58)
[2021-08-31] MEDS: ATORVASTATIN CALCIUM 10 MG TABLET. PO SCH (20:59)
[2021-08-31] MEDS: MIRTAZAPINE 15 MG TABLET PO SCH (20:59)
[2021-08-31] MEDS: MELATONIN 3 MG TABLET PO SCH (20:59)
[2021-08-31] MEDS: traZODone 50 MG TABLET. PO PRN (21:00)
--- NOTE | 2021-08-31 21:53 | PDOC ---
Exam Note: Leo Note: Please also refer to the separate dictated note~for this date of service dictated separately.~Patient seen individually. Discussed the patient with Nursing staff reviewed the chart.~Reviewed interim history and current functioning. Reviewed vital signs,~Labs/ Radiology~and current medications noted below. Continue current treatment with the changes noted in the dictated addendum note Assessment: Vital Signs/I&O: Vital Signs Date Time Temp Pulse Resp B/P (MAP) Pulse Ox O2 Delivery O2 Flow Rate FiO2 08/31/21 17:22 66 125/75 08/31/21 16:07 97.8 22 96 Room Air I & O 08/30/21 08/30/21 08/31/21 15:00 23:00 07:00 Intake Total 1320 ml 720 ml Balance 1320 ml 720 ml Labs: Laboratory Tests Test 08/31/21 07:31 08/31/21 07:55 Glucose (Fingerstick) 141 mg/dL (70-99) H White Blood Count 6.8 x10^3/uL (4.0-11.0) Red Blood Count 3.55 x10^6/uL (4.30-5.70) L Hemoglobin 12.2 g/dL (13.0-17.5) L Hematocrit 36.9 % (39.0-53.0) L Mean Corpuscular Volume 104 fL (79-100) H Mean Corpuscular Hemoglobin 34 pg (25-35) Mean Corpuscular Hemoglobin Concent 33 g/dL (31-37) Red Cell Distribution Width 13.8 % (11.5-14.5) Platelet Count 103 x10^3/uL (140-400) L Neutrophils (%) (Auto) 47 % (31-73) Lymphocytes (%) (Auto) 32 % (24-48) Monocytes (%) (Auto) 9 % (0-9) Eosinophils (%) (Auto) 12 % (0-3) H Basophils (%) (Auto) 1 % (0-3) Neutrophils # (Auto) 3.2 x10^3uL (1.8-7.7) Lymphocytes # (Auto) 2.1 x10^3/uL (1.0-4.8) Monocytes # (Auto) 0.6 x10^3/uL (0.0-1.1) Eosinophils # (Auto) 0.8 x10^3/uL (0.0-0.7) H Basophils # (Auto) 0.1 x10^3/uL (0.0-0.2) Sodium Level 141 mmol/L (136-145) Potassium Level 4.3 mmol/L (3.5-5.1) Chloride Level 104 mmol/L (98-107) Carbon Dioxide Level 32 mmol/L (21-32) Anion Gap 5 (6-14) L Blood Urea Nitrogen 48 mg/dL (8-26) H Creatinine 1.1 mg/dL (0.7-1.3) Estimated GFR (Cockcroft-Gault) 64.6 BUN/Creatinine Ratio 44 (6-20) H Glucose Level 140 mg/dL (70-99) H Calcium Level 9.2 mg/dL (8.5-10.1) Total Bilirubin 0.3 mg/dL (0.2-1.0) Aspartate Amino Transferase (AST) 17 U/L (15-37) Alanine Aminotransferase (ALT) 25 U/L (16-63) Alkaline Phosphatase 107 U/L (46-116) Total Protein 7.3 g/dL (6.4-8.2) Albumin 3.4 g/dL (3.4-5.0) Albumin/Globulin Ratio 0.9 (1.0-1.7) L Current Medications: Meds: Laboratory Tests Test 08/31/21 07:31 08/31/21 07:55 Glucose (Fingerstick) 141 mg/dL White Blood Count 6.8 x10^3/uL Red Blood Count 3.55 x10^6/uL Hemoglobin 12.2 g/dL Hematocrit 36.9 % Mean Corpuscular Volume 104 fL Mean Corpuscular Hemoglobin 34 pg Mean Corpuscular Hemoglobin Concent 33 g/dL Red Cell Distribution Width 13.8 % Platelet Count 103 x10^3/uL Neutrophils (%) (Auto) 47 % Lymphocytes (%) (Auto) 32 % Monocytes (%) (Auto) 9 % Eosinophils (%) (Auto) 12 % Basophils (%) (Auto) 1 % Neutrophils # (Auto) 3.2 x10^3uL Lymphocytes # (Auto) 2.1 x10^3/uL Monocytes # (Auto) 0.6 x10^3/uL Eosinophils # (Auto) 0.8 x10^3/uL Basophils # (Auto) 0.1 x10^3/uL Sodium Level 141 mmol/L Potassium Level 4.3 mmol/L Chloride Level 104 mmol/L Carbon Dioxide Level 32 mmol/L Anion Gap 5 Blood Urea Nitrogen 48 mg/dL Creatinine 1.1 mg/dL Estimated GFR (Cockcroft-Gault) 64.6 BUN/Creatinine Ratio 44 Glucose Level 140 mg/dL Calcium Level 9.2 mg/dL Total Bilirubin 0.3 mg/dL Aspartate Amino Transf (AST/SGOT) 17 U/L Alanine Aminotransferase (ALT/SGPT) 25 U/L Alkaline Phosphatase 107 U/L Total Protein 7.3 g/dL Albumin 3.4 g/dL Albumin/Globulin Ratio 0.9 Current Medications Medications (Trade) Dose Ordered Sig/Aparna Route PRN Reason Start Time Stop Time Status Last Admin Dose Admin Acetaminophen (Tylenol) 650 mg PRN Q6HRS PRN PO MILD PAIN / TEMP > 100.3'F 07/06/21 00:30 Cancel Multi-Ingredient Ointment (Analgesic [place]) 1 inna PRN QID PRN TP MUSCLE PAIN 07/06/21 00:30 08/01/21 20:19 Al Hydroxide/Mg Hydroxide (Mylanta Plus Xs) 15 ml PRN AFTMEALHC PRN PO DYSPEPSIA 07/06/21 00:30 08/15/21 00:24 Magnesium Hydroxide (Milk Of Magnesia) 2,400 mg PRN QHS PRN PO 2ND CHOICE CONSTIPATION 07/06/21 00:30 07/14/21 08:13 Duloxetine HCl (Cymbalta) 20 mg HS PO 07/06/21 21:00 08/31/21 20:58 Duloxetine HCl (Cymbalta) 30 mg HS PO 07/06/21 21:00 08/31/21 20:58 Mirtazapine (Remeron) 7.5 mg HS PO 07/06/21 21:00 07/29/21 18:15 DC 07/28/21 20:09 Olanzapine (ZyPREXA ZYDIS) 2.5 mg PRN Q2HR PRN PO ANXIETY / AGITATION 07/06/21 01:15 08/26/21 03:39 Trazodone HCl (Desyrel) 50 mg PRN QHS PRN PO INSOMNIA 07/06/21 01:15 08/31/21 21:00 Acetaminophen (Tylenol) 650 mg PRN Q4HRS PRN PO MILD PAIN 1-3 07/06/21 10:30 08/31/21 14:06 Aspirin (Aspirin Enteric Coated) 81 mg DAILY PO 07/07/21 09:00 08/31/21 08:17 Atorvastatin Calcium (Lipitor) 10 mg QHS PO 07/06/21 21:00 08/31/21 20:59 Carvedilol (Coreg) 3.125 mg BIDWMEALS PO 07/06/21 17:00 07/25/21 17:52 DC 07/25/21 17:22 Gabapentin (Neurontin) 300 mg BID PO 07/06/21 21:00 08/30/21 12:29 DC 08/30/21 08:20 Metformin HCl (Glucophage Xr) 500 mg DAILYWBKFT PO 07/07/21 08:00 08/31/21 08:18 Multi-Ingredient Ointment (Analgesic [place]) 1 inna PRN QID PRN TP PAIN 07/06/21 10:30 UNV Phenytoin Sodium (Dilantin) 500 mg HS PO 07/06/21 21:00 07/07/21 22:27 DC 07/07/21 20:05 Tamsulosin HCl (Flomax) 0.4 mg DAILY PO 07/07/21 09:00 08/31/21 08:17 Polyethylene Glycol (miraLAX) 17 gm PRN DAILY PRN PO 1ST CHOICE CONSTIPATION 07/06/21 10:45 08/13/21 20:07 Non-Formulary Medication (Pravastatin Sodium ) 40 mg DAILY PO 07/07/21 09:00 UNV Phenyleph/Shark Oil/Min Oil/Petrol (Preparation H) 1 inna PRN QID PRN RC RECTAL PAIN 07/06/21 15:15 Phenytoin Sodium (Dilantin) 400 mg HS PO 07/08/21 21:00 07/11/21 23:36 DC 07/11/21 20:35 Albuterol/ Ipratropium (Combivent Respimat 20-100 Mcg) 1 puff QID INH 07/08/21 13:00 08/31/21 21:00 Docusate Sodium (Colace) 100 mg DAILY PO 07/09/21 09:00 08/31/21 08:18 Guaifenesin (Mucinex Er) 600 mg BID PO 07/08/21 21:00 08/31/21 20:59 Magnesium Hydroxide (Milk Of Magnesia) 2,400 mg PRN QHS PRN PO 2nd CHOICE CONSTIPATION 07/08/21 19:30 Cancel Phenytoin Sodium (Dilantin) 200 mg HS PO 07/12/21 21:00 08/31/21 20:59 Phenytoin Sodium (Dilantin) 100 mg DAILY PO 07/12/21 09:00 08/31/21 08:18 Carvedilol (Coreg) 6.25 mg BIDWMEALS PO 07/25/21 18:00 07/25/21 18:07 DC Carvedilol (Coreg) 6.25 mg BIDWMEALS PO 07/26/21 08:00 08/02/21 09:02 DC 08/02/21 08:33 Mirtazapine (Remeron) 15 mg QHS PO 07/29/21 21:00 08/31/21 20:59 Carvedilol (Coreg) 12.5 mg BIDWMEALS PO 08/02/21 17:00 08/31/21 17:22 Albuterol Sulfate (Ventolin Hfa Inhaler) 2 puff PRN Q4HRS PRN INH SHORTNESS OF BREATH 08/02/21 09:15 08/29/21 20:44 Melatonin (Melatonin) 3 mg QHS PO 08/05/21 21:00 08/18/21 14:06 DC 08/17/21 20:06 Oxycodone/ Acetaminophen (Percocet 10/325) 1 tab PRN Q6HRS PRN PO MOD-SEV PAIN 08/15/21 00:15 08/15/21 00:23 Melatonin (Melatonin) 6 mg QHS PO 08/18/21 21:00 08/31/21 20:59 Influenza Virus Vaccine Quadrival (Flulaval Quad 3603-2621 Syringe) 0.5 ml ONCE ONCE VAX IM 08/20/21 09:00 08/20/21 09:01 DC 08/20/21 11:35 Gabapentin (Neurontin) 100 mg 1X ONCE PO 08/30/21 14:00 08/30/21 14:01 Cancel Gabapentin (Neurontin) 200 mg 1X ONCE PO 08/30/21 21:00 08/30/21 21:01 Cancel Gabapentin (Neurontin) 300 mg BID PO 08/31/21 09:00 08/31/21 21:00 Gabapentin (Neurontin) 300 mg 1X ONCE PO 08/30/21 12:45 08/30/21 12:46 DC 08/30/21 12:42 Current Medications Medications (Trade) Dose Ordered Sig/Aparna Route PRN Reason Start Time Stop Time Status Last Admin Dose Admin Gabapentin (Neurontin) 300 mg BID PO 08/31/21 09:00 08/31/21 21:00 I have reviewed the current psychotropics carefully including drug interactions. Risk benefit ratio favors no change other than as noted in my dictated progress note. Diagnosis: Problems: (1) Impulse control disorder, unspecified (2) Anxiety disorder, unspecified (3) Dementia, vascular, with depression (4) Dementia, vascular, with delusions (5) Major neurocognitive disorder (6) Dementia in Alzheimer's disease with depression (7) Dementia in Alzheimer's disease with delusions (8) Dementia of the Alzheimer's type with early onset with behavioral disturbance (9) Major depressive disorder in partial remission NIK LOYA MD Aug 31, 2021 21:53
--- NOTE | 2021-08-31 22:56 | NUR ---
Pt located sitting in the dayroom this evening. Compliant with whole medications. Pt irritable, but compliant with shower. Pt became upset after shower demanding his shirt instead of a gown. Pt informed numerous times that his clothes are in the laundry and he will get them in the morning.
[2021-09-01 05:31] VITALS: BP 163/72
[2021-09-01] MEDS: GABAPENTIN 300 MG CAPSULE. PO SCH ×2 (08:32→20:53)
[2021-09-01] MEDS: CARVEDILOL 12.5 MG TABLET PO SCH ×2 (08:32→17:15)
[2021-09-01] MEDS: ASPIRIN ENTERIC COATED 81 MG TABLET.DR. PO SCH (08:32)
[2021-09-01] MEDS: metFORMIN XR 500 MG TAB.ER.24H PO SCH (08:33)
[2021-09-01] MEDS: PHENYTOIN SODIUM EXTENDED 100 MG CAPSULE PO SCH ×2 (08:33→20:53)
[2021-09-01] MEDS: TAMSULOSIN 0.4 MG CAP.ER.24H. PO SCH (08:33)
[2021-09-01] MEDS: DOCUSATE SODIUM 100 MG CAPSULE PO SCH (08:33)
[2021-09-01] MEDS: IPRATROPIUM/ALBUTEROL 20/100mcg/INH INHALER. INH SCH ×4 (08:38→20:53)
--- NOTE | 2021-09-01 09:02 | PDOC ---
Exam Note: Leo Note: This note is a late entry for 08/30/2021 covers elements not covered in my initial note. Subjective: The patient was seen individually in the evening of 08/30/2021 with Tenisha KOWALSKI, discussed and reviewed the chart. The patient slept 4-3/4 hours previous night. I met with him in his room. He is lying in bed, complains of having cough. Nursing staff stated he wakes up every morning around 2 a.m. complaining of cough and shortness of breath. He seems more anxious, response to Zyprexa p.r.n. He gets back to sleep and O2 sats have been stable. Review of Systems: Ambulation impaired in wheelchair. No CV, , eye, ENT system symptoms on review. Mental Status Exam: The patient is oriented to himself and situation. Insight and judgment, recent and remote memory, attention and concentration, fund of knowledge is poor consistent with his diagnoses. Laboratory Data: Reviewed. Impression: Major depressive disorder, in partial remission. Major neurocognitive disorder, Alzheimer, vascular with delusion, depression, behavioral disturbance. Anxiety disorder unspecified. Impulse control disorder unspecified. Plan: Continue current psychotropics from initial note. Social service staff i s still actively trying to locate his nephew who is his power of grain sacker to facilitate placement for him. From a psychiatric standpoint, he can transition to a lower level of care as soon as placement is arranged. Assessment: Vital Signs/I&O: Vital Signs Date Time Temp Pulse Resp B/P (MAP) Pulse Ox O2 Delivery O2 Flow Rate FiO2 09/01/21 08:32 74 163/72 09/01/21 05:31 97.9 22 93 08/31/21 16:07 Room Air I & O 08/31/21 08/31/21 09/01/21 15:00 23:00 07:00 Intake Total 660 ml 600 ml Balance 660 ml 600 ml Labs: Laboratory Tests Test 09/01/21 07:34 Glucose (Fingerstick) 140 mg/dL (70-99) H Current Medications: Meds: Laboratory Tests Test 09/01/21 07:34 Glucose (Fingerstick) 140 mg/dL Current Medications Medications (Trade) Dose Ordered Sig/Aparna Route PRN Reason Start Time Stop Time Status Last Admin Dose Admin Acetaminophen (Tylenol) 650 mg PRN Q6HRS PRN PO MILD PAIN / TEMP > 100.3'F 07/06/21 00:30 Cancel Multi-Ingredient Ointment (Analgesic [place]) 1 inna PRN QID PRN TP MUSCLE PAIN 07/06/21 00:30 08/01/21 20:19 Al Hydroxide/Mg Hydroxide (Mylanta Plus Xs) 15 ml PRN AFTMEALHC PRN PO DYSPEPSIA 07/06/21 00:30 08/15/21 00:24 Magnesium Hydroxide (Milk Of Magnesia) 2,400 mg PRN QHS PRN PO 2ND CHOICE CONSTIPATION 07/06/21 00:30 07/14/21 08:13 Duloxetine HCl (Cymbalta) 20 mg HS PO 07/06/21 21:00 08/31/21 20:58 Duloxetine HCl (Cymbalta) 30 mg HS PO 07/06/21 21:00 08/31/21 20:58 Mirtazapine (Remeron) 7.5 mg HS PO 07/06/21 21:00 07/29/21 18:15 DC 07/28/21 20:09 Olanzapine (ZyPREXA ZYDIS) 2.5 mg PRN Q2HR PRN PO ANXIETY / AGITATION 07/06/21 01:15 08/26/21 03:39 Trazodone HCl (Desyrel) 50 mg PRN QHS PRN PO INSOMNIA 07/06/21 01:15 08/31/21 21:00 Acetaminophen (Tylenol) 650 mg PRN Q4HRS PRN PO MILD PAIN 1-3 07/06/21 10:30 08/31/21 14:06 Aspirin (Aspirin Enteric Coated) 81 mg DAILY PO 07/07/21 09:00 09/01/21 08:32 Atorvastatin Calcium (Lipitor) 10 mg QHS PO 07/06/21 21:00 08/31/21 20:59 Carvedilol (Coreg) 3.125 mg BIDWMEALS PO 07/06/21 17:00 07/25/21 17:52 DC 07/25/21 17:22 Gabapentin (Neurontin) 300 mg BID PO 07/06/21 21:00 08/30/21 12:29 DC 08/30/21 08:20 Metformin HCl (Glucophage Xr) 500 mg DAILYWBKFT PO 07/07/21 08:00 09/01/21 08:33 Multi-Ingredient Ointment (Analgesic [place]) 1 inna PRN QID PRN TP PAIN 07/06/21 10:30 UNV Phenytoin Sodium (Dilantin) 500 mg HS PO 07/06/21 21:00 07/07/21 22:27 DC 07/07/21 20:05 Tamsulosin HCl (Flomax) 0.4 mg DAILY PO 07/07/21 09:00 09/01/21 08:33 Polyethylene Glycol (miraLAX) 17 gm PRN DAILY PRN PO 1ST CHOICE CONSTIPATION 07/06/21 10:45 08/13/21 20:07 Non-Formulary Medication (Pravastatin Sodium ) 40 mg DAILY PO 07/07/21 09:00 UNV Phenyleph/Shark Oil/Min Oil/Petrol (Preparation H) 1 inna PRN QID PRN RC RECTAL PAIN 07/06/21 15:15 Phenytoin Sodium (Dilantin) 400 mg HS PO 07/08/21 21:00 07/11/21 23:36 DC 07/11/21 20:35 Albuterol/ Ipratropium (Combivent Respimat 20-100 Mcg) 1 puff QID INH 07/08/21 13:00 09/01/21 08:38 Docusate Sodium (Colace) 100 mg DAILY PO 07/09/21 09:00 09/01/21 08:33 Guaifenesin (Mucinex Er) 600 mg BID PO 07/08/21 21:00 09/01/21 08:34 Magnesium Hydroxide (Milk Of Magnesia) 2,400 mg PRN QHS PRN PO 2nd CHOICE CONSTIPATION 07/08/21 19:30 Cancel Phenytoin Sodium (Dilantin) 200 mg HS PO 07/12/21 21:00 08/31/21 20:59 Phenytoin Sodium (Dilantin) 100 mg DAILY PO 07/12/21 09:00 09/01/21 08:33 Carvedilol (Coreg) 6.25 mg BIDWMEALS PO 07/25/21 18:00 07/25/21 18:07 DC Carvedilol (Coreg) 6.25 mg BIDWMEALS PO 07/26/21 08:00 08/02/21 09:02 DC 08/02/21 08:33 Mirtazapine (Remeron) 15 mg QHS PO 07/29/21 21:00 08/31/21 20:59 Carvedilol (Coreg) 12.5 mg BIDWMEALS PO 08/02/21 17:00 09/01/21 08:32 Albuterol Sulfate (Ventolin Hfa Inhaler) 2 puff PRN Q4HRS PRN INH SHORTNESS OF BREATH 08/02/21 09:15 08/29/21 20:44 Melatonin (Melatonin) 3 mg QHS PO 08/05/21 21:00 08/18/21 14:06 DC 08/17/21 20:06 Oxycodone/ Acetaminophen (Percocet 10) 1 tab PRN Q6HRS PRN PO MOD-SEV PAIN 08/15/21 00:15 08/15/21 00:23 Melatonin (Melatonin) 6 mg QHS PO 08/18/21 21:00 08/31/21 20:59 Influenza Virus Vaccine Quadrival (Flulaval Quad [id number] Syringe) 0.5 ml ONCE ONCE VAX IM 08/20/21 09:00 08/20/21 09:01 DC 08/20/21 11:35 Gabapentin (Neurontin) 100 mg 1X ONCE PO 08/30/21 14:00 08/30/21 14:01 Cancel Gabapentin (Neurontin) 200 mg 1X ONCE PO 08/30/21 21:00 08/30/21 21:01 Cancel Gabapentin (Neurontin) 300 mg BID PO 08/31/21 09:00 09/01/21 08:32 Gabapentin (Neurontin) 300 mg 1X ONCE PO 08/30/21 12:45 08/30/21 12:46 DC 08/30/21 12:42 I have reviewed the current psychotropics carefully including drug interactions. Risk benefit ratio favors no change other than as noted in my dictated progress note. Diagnosis: Problems: (1) Major depressive disorder in partial remission (2) Anxiety disorder, unspecified (3) Impulse control disorder, unspecified (4) Major neurocognitive disorder (5) Dementia, vascular, with delusions (6) Dementia, vascular, with depression (7) Dementia in Alzheimer's disease with depression (8) Dementia in Alzheimer's disease with delusions (9) Dementia of the Alzheimer's type with early onset with behavioral disturbance VINCENZO,MAN M MD Sep 01, 2021 09:02
--- NOTE | 2021-09-01 12:53 | NUR ---
WEEKLY ACTIVITY THERAPY NOTE Date of Admission: 07/06/21 Date of AT Assessment: 07/08 Precipitating behaviors that initiated intake and admission:Patient was reported to believe that his money was being stolen, his dog was being murdered, trying to leave the facility, disoriented, being tearful and crying frequently, and having sexually inappropriate conversations with other residents Goal aimed:increase socialization and engagement Initial Goal: Pt will participate in at least three individual or group Activity Therapy sessions per week. Goal changed 07/21:Pt will participate in at least five individual or group Activity Therapy sessions per week. Weekly progress towards goal: achieved, 5/5 Group participation level: 3 mod, 2 full Weekly highlights: social on patio Wednesday, named a few presidents on presidents PowerPoint Wednesday, mostly independent when marking 50's music bingo card Behaviors observed: calm, social and pleasant Plan: no change to goal Beneficial adaptations: music, socialization
--- NOTE | 2021-09-01 13:29 | NUR ---
Treatment team update: Pt is eating roughly 100% of meals and sleeping 4 hours on average per night. Pt does often get up in the middle of the night, confused and often irritable. Pt did not wish to shower last night and initially was resistive but ended up compliant. Pt was also irritated that staff did not put him in regular clothes after his evening shower, despite explaining that he clothes were in the laundry and the gown was to get him ready for bed. Pt is medication compliant and has attended a few groups with minimal participation. Pt has been accepted to [facility] and is waiting for the nephew to complete the admission paperwork. SW will continue to work with the family on getting pt moved [facility].
[2021-09-01 15:39] VITALS: BP 120/64
--- NOTE | 2021-09-01 16:17 | NUR ---
Nsg Note; Per report, Nasir awoke in the middle of the night and was unable to settle to go back to sleep. After breakfast, he took a long nap. Nasir has been awake this afternoon spending time in the dayroom and outside in the courtyard. He feeds himself and is med compliant, taking his meds whole. He is pleasant and cooperative, talking with staff and other patients.
[2021-09-01] MEDS: DULoxetine HCL 30 MG CAPSULE.DR PO SCH (20:52)
[2021-09-01] MEDS: DULoxetine HCL 20 MG CAPSULE.DR PO SCH (20:52)
[2021-09-01] MEDS: MIRTAZAPINE 15 MG TABLET PO SCH (20:53)
[2021-09-01] MEDS: ATORVASTATIN CALCIUM 10 MG TABLET. PO SCH (20:53)
[2021-09-01] MEDS: MELATONIN 3 MG TABLET PO SCH (20:53)
[2021-09-01] MEDS: traZODone 50 MG TABLET. PO PRN (20:54)
--- NOTE | 2021-09-01 21:49 | PDOC ---
Exam Note: Leo Note: Please also refer to the separate dictated note~for this date of service dictated separately.~Patient seen individually. Discussed the patient with Nursing staff reviewed the chart.~Reviewed interim history and current functioning. Reviewed vital signs,~Labs/ Radiology~and current medications noted below. Continue current treatment with the changes noted in the dictated addendum note Assessment: Vital Signs/I&O: Vital Signs Date Time Temp Pulse Resp B/P (MAP) Pulse Ox O2 Delivery O2 Flow Rate FiO2 09/01/21 17:15 69 120/64 09/01/21 15:39 98.1 18 94 Room Air I & O 08/31/21 08/31/21 09/01/21 15:00 23:00 07:00 Intake Total 660 ml 600 ml Balance 660 ml 600 ml Labs: Laboratory Tests Test 09/01/21 07:34 Glucose (Fingerstick) 140 mg/dL (70-99) H Current Medications: Meds: Laboratory Tests Test 09/01/21 07:34 Glucose (Fingerstick) 140 mg/dL Current Medications Medications (Trade) Dose Ordered Sig/Aparna Route PRN Reason Start Time Stop Time Status Last Admin Dose Admin Acetaminophen (Tylenol) 650 mg PRN Q6HRS PRN PO MILD PAIN / TEMP > 100.3'F 07/06/21 00:30 Cancel Multi-Ingredient Ointment (Analgesic [place]) 1 inna PRN QID PRN TP MUSCLE PAIN 07/06/21 00:30 08/01/21 20:19 Al Hydroxide/Mg Hydroxide (Mylanta Plus Xs) 15 ml PRN AFTMEALHC PRN PO DYSPEPSIA 07/06/21 00:30 08/15/21 00:24 Magnesium Hydroxide (Milk Of Magnesia) 2,400 mg PRN QHS PRN PO 2ND CHOICE CONSTIPATION 07/06/21 00:30 07/14/21 08:13 Duloxetine HCl (Cymbalta) 20 mg HS PO 07/06/21 21:00 09/01/21 20:52 Duloxetine HCl (Cymbalta) 30 mg HS PO 07/06/21 21:00 09/01/21 20:52 Mirtazapine (Remeron) 7.5 mg HS PO 07/06/21 21:00 07/29/21 18:15 DC 07/28/21 20:09 Olanzapine (ZyPREXA ZYDIS) 2.5 mg PRN Q2HR PRN PO ANXIETY / AGITATION 07/06/21 01:15 08/26/21 03:39 Trazodone HCl (Desyrel) 50 mg PRN QHS PRN PO INSOMNIA 07/06/21 01:15 09/01/21 20:54 Acetaminophen (Tylenol) 650 mg PRN Q4HRS PRN PO MILD PAIN 1-3 07/06/21 10:30 08/31/21 14:06 Aspirin (Aspirin Enteric Coated) 81 mg DAILY PO 07/07/21 09:00 09/01/21 08:32 Atorvastatin Calcium (Lipitor) 10 mg QHS PO 07/06/21 21:00 09/01/21 20:53 Carvedilol (Coreg) 3.125 mg BIDWMEALS PO 07/06/21 17:00 07/25/21 17:52 DC 07/25/21 17:22 Gabapentin (Neurontin) 300 mg BID PO 07/06/21 21:00 08/30/21 12:29 DC 08/30/21 08:20 Metformin HCl (Glucophage Xr) 500 mg DAILYWBKFT PO 07/07/21 08:00 09/01/21 08:33 Multi-Ingredient Ointment (Analgesic [place]) 1 inna PRN QID PRN TP PAIN 07/06/21 10:30 UNV Phenytoin Sodium (Dilantin) 500 mg HS PO 07/06/21 21:00 07/07/21 22:27 DC 07/07/21 20:05 Tamsulosin HCl (Flomax) 0.4 mg DAILY PO 07/07/21 09:00 09/01/21 08:33 Polyethylene Glycol (miraLAX) 17 gm PRN DAILY PRN PO 1ST CHOICE CONSTIPATION 07/06/21 10:45 08/13/21 20:07 Non-Formulary Medication (Pravastatin Sodium ) 40 mg DAILY PO 07/07/21 09:00 UNV Phenyleph/Shark Oil/Min Oil/Petrol (Preparation H) 1 inna PRN QID PRN RC RECTAL PAIN 07/06/21 15:15 Phenytoin Sodium (Dilantin) 400 mg HS PO 07/08/21 21:00 07/11/21 23:36 DC 07/11/21 20:35 Albuterol/ Ipratropium (Combivent Respimat 20-100 Mcg) 1 puff QID INH 07/08/21 13:00 09/01/21 20:53 Docusate Sodium (Colace) 100 mg DAILY PO 07/09/21 09:00 09/01/21 08:33 Guaifenesin (Mucinex Er) 600 mg BID PO 07/08/21 21:00 09/01/21 20:53 Magnesium Hydroxide (Milk Of Magnesia) 2,400 mg PRN QHS PRN PO 2nd CHOICE CONSTIPATION 07/08/21 19:30 Cancel Phenytoin Sodium (Dilantin) 200 mg HS PO 07/12/21 21:00 09/01/21 20:53 Phenytoin Sodium (Dilantin) 100 mg DAILY PO 07/12/21 09:00 09/01/21 08:33 Carvedilol (Coreg) 6.25 mg BIDWMEALS PO 07/25/21 18:00 07/25/21 18:07 DC Carvedilol (Coreg) 6.25 mg BIDWMEALS PO 07/26/21 08:00 08/02/21 09:02 DC 08/02/21 08:33 Mirtazapine (Remeron) 15 mg QHS PO 07/29/21 21:00 09/01/21 20:53 Carvedilol (Coreg) 12.5 mg BIDWMEALS PO 08/02/21 17:00 09/01/21 17:15 Albuterol Sulfate (Ventolin Hfa Inhaler) 2 puff PRN Q4HRS PRN INH SHORTNESS OF BREATH 08/02/21 09:15 08/29/21 20:44 Melatonin (Melatonin) 3 mg QHS PO 08/05/21 21:00 08/18/21 14:06 DC 08/17/21 20:06 Oxycodone/ Acetaminophen (Percocet 10/325) 1 tab PRN Q6HRS PRN PO MOD-SEV PAIN 08/15/21 00:15 08/15/21 00:23 Melatonin (Melatonin) 6 mg QHS PO 08/18/21 21:00 09/01/21 20:53 Influenza Virus Vaccine Quadrival (Flulaval Quad [id number] Syringe) 0.5 ml ONCE ONCE VAX IM 08/20/21 09:00 08/20/21 09:01 DC 08/20/21 11:35 Gabapentin (Neurontin) 100 mg 1X ONCE PO 08/30/21 14:00 08/30/21 14:01 Cancel Gabapentin (Neurontin) 200 mg 1X ONCE PO 08/30/21 21:00 08/30/21 21:01 Cancel Gabapentin (Neurontin) 300 mg BID PO 08/31/21 09:00 09/01/21 20:53 Gabapentin (Neurontin) 300 mg 1X ONCE PO 08/30/21 12:45 08/30/21 12:46 DC 08/30/21 12:42 I have reviewed the current psychotropics carefully including drug interactions. Risk benefit ratio favors no change other than as noted in my dictated progress note. 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
--- NOTE | 2021-09-01 22:39 | NUR ---
Pt sitting calmly in the hallway this evening. Pleasant and cooperative. Compliant with whole medications. Singing and yodeling in the hallway.
--- NOTE | 2021-09-02 02:45 | NUR ---
Pt at nurses station window, upset and anxious. Pt stated "my pancreas is broken. I need to get to the hospital and see a doctor." Redirection unsuccessful as pt just became angrier. PRN Zyprexa administered.
[2021-09-02 06:26] VITALS: BP 160/78
[2021-09-02] MEDS: DOCUSATE SODIUM 100 MG CAPSULE PO SCH (07:57)
[2021-09-02] MEDS: ASPIRIN ENTERIC COATED 81 MG TABLET.DR. PO SCH (07:57)
[2021-09-02] MEDS: TAMSULOSIN 0.4 MG CAP.ER.24H. PO SCH (07:57)
[2021-09-02] MEDS: metFORMIN XR 500 MG TAB.ER.24H PO SCH (07:57)
[2021-09-02] MEDS: CARVEDILOL 12.5 MG TABLET PO SCH ×2 (07:58→17:19)
[2021-09-02] MEDS: PHENYTOIN SODIUM EXTENDED 100 MG CAPSULE PO SCH ×2 (07:58→20:42)
[2021-09-02] MEDS: GABAPENTIN 300 MG CAPSULE. PO SCH ×2 (07:58→20:42)
[2021-09-02] MEDS: IPRATROPIUM/ALBUTEROL 20/100mcg/INH INHALER. INH SCH ×4 (07:59→20:43)
--- NOTE | 2021-09-02 09:33 | PDOC ---
Exam Note: Leo Note: This note is a late entry for 08/31/2021 covers elements not covered in my initial note. Subjective: The patient was seen individually in the evening of 08/31/2021 with Tenisha KOWALSKI, discussed and reviewed the chart. The patient slept 5-1/2 hours previous night. I met with him in his room. Overall patient is doing about the same per nursing report. He gets anxious late i the evening but complains of shortness of breath knocking on the nursing window and responds positively to Zyprexa p.r.n. Rest of the day he is doing better. Review of Systems: Ambulation impaired in wheelchair. No CV, , eye, ENT system symptoms on review. Mental Status Exam: The patient is oriented to himself and situation. Insight and judgment, recent and remote memory, attention and concentration, fund of knowledge is poor consistent with his diagnoses. Laboratory Data: Reviewed. Impression: Major depressive disorder, in partial remission. Major neuro cognitive disorder, Alzheimer, vascular with delusion, depression, behavioral disturbance. Anxiety disorder unspecified. Impulse control disorder unspecified. Plan: Continue current psychotropics from initial note. farmworker general staff is actively trying to contact his nephew to arrange placement for him which has been challenging. Assessment: Vital Signs/I&O: Vital Signs Date Time Temp Pulse Resp B/P (MAP) Pulse Ox O2 Delivery O2 Flow Rate FiO2 09/02/21 07:58 80 160/78 09/02/21 06:26 97.6 22 91 09/01/21 15:39 Room Air I & O 09/01/21 09/01/21 09/02/21 15:00 23:00 07:00 Intake Total 660 ml 720 ml Balance 660 ml 720 ml Labs: Laboratory Tests Test 09/02/21 07:41 Glucose (Fingerstick) 103 mg/dL (70-99) H Current Medications: Meds: Laboratory Tests Test 09/02/21 07:41 Glucose (Fingerstick) 103 mg/dL Current Medications Medications (Trade) Dose Ordered Sig/Aparna Route PRN Reason Start Time Stop Time Status Last Admin Dose Admin Acetaminophen (Tylenol) 650 mg PRN Q6HRS PRN PO MILD PAIN / TEMP > 100.3'F 07/06/21 00:30 Cancel Multi-Ingredient Ointment (Analgesic [place]) 1 inna PRN QID PRN TP MUSCLE PAIN 07/06/21 00:30 08/01/21 20:19 Al Hydroxide/Mg Hydroxide (Mylanta Plus Xs) 15 ml PRN AFTMEALHC PRN PO DYSPEPSIA 07/06/21 00:30 08/15/21 00:24 Magnesium Hydroxide (Milk Of Magnesia) 2,400 mg PRN QHS PRN PO 2ND CHOICE CONSTIPATION 07/06/21 00:30 07/14/21 08:13 Duloxetine HCl (Cymbalta) 20 mg HS PO 07/06/21 21:00 09/01/21 20:52 Duloxetine HCl (Cymbalta) 30 mg HS PO 07/06/21 21:00 09/01/21 20:52 Mirtazapine (Remeron) 7.5 mg HS PO 07/06/21 21:00 07/29/21 18:15 DC 07/28/21 20:09 Olanzapine (ZyPREXA ZYDIS) 2.5 mg PRN Q2HR PRN PO ANXIETY / AGITATION 07/06/21 01:15 09/02/21 02:44 Trazodone HCl (Desyrel) 50 mg PRN QHS PRN PO INSOMNIA 07/06/21 01:15 09/01/21 20:54 Acetaminophen (Tylenol) 650 mg PRN Q4HRS PRN PO MILD PAIN 1-3 07/06/21 10:30 08/31/21 14:06 Aspirin (Aspirin Enteric Coated) 81 mg DAILY PO 07/07/21 09:00 09/02/21 07:57 Atorvastatin Calcium (Lipitor) 10 mg QHS PO 07/06/21 21:00 09/01/21 20:53 Carvedilol (Coreg) 3.125 mg BIDWMEALS PO 07/06/21 17:00 07/25/21 17:52 DC 07/25/21 17:22 Gabapentin (Neurontin) 300 mg BID PO 07/06/21 21:00 08/30/21 12:29 DC 08/30/21 08:20 Metformin HCl (Glucophage Xr) 500 mg DAILYWBKFT PO 07/07/21 08:00 09/02/21 07:57 Multi-Ingredient Ointment (Analgesic [place]) 1 inna PRN QID PRN TP PAIN 07/06/21 10:30 UNV Phenytoin Sodium (Dilantin) 500 mg HS PO 07/06/21 21:00 07/07/21 22:27 DC 07/07/21 20:05 Tamsulosin HCl (Flomax) 0.4 mg DAILY PO 07/07/21 09:00 09/02/21 07:57 Polyethylene Glycol (miraLAX) 17 gm PRN DAILY PRN PO 1ST CHOICE CONSTIPATION 07/06/21 10:45 08/13/21 20:07 Non-Formulary Medication (Pravastatin Sodium ) 40 mg DAILY PO 07/07/21 09:00 UNV Phenyleph/Shark Oil/Min Oil/Petrol (Preparation H) 1 inna PRN QID PRN RC RECTAL PAIN 07/06/21 15:15 Phenytoin Sodium (Dilantin) 400 mg HS PO 07/08/21 21:00 07/11/21 23:36 DC 07/11/21 20:35 Albuterol/ Ipratropium (Combivent Respimat 20-100 Mcg) 1 puff QID INH 07/08/21 13:00 09/02/21 07:59 Docusate Sodium (Colace) 100 mg DAILY PO 07/09/21 09:00 09/02/21 07:57 Guaifenesin (Mucinex Er) 600 mg BID PO 07/08/21 21:00 09/02/21 07:57 Magnesium Hydroxide (Milk Of Magnesia) 2,400 mg PRN QHS PRN PO 2nd CHOICE CONSTIPATION 07/08/21 19:30 Cancel Phenytoin Sodium (Dilantin) 200 mg HS PO 07/12/21 21:00 09/01/21 20:53 Phenytoin Sodium (Dilantin) 100 mg DAILY PO 07/12/21 09:00 09/02/21 07:58 Carvedilol (Coreg) 6.25 mg BIDWMEALS PO 07/25/21 18:00 07/25/21 18:07 DC Carvedilol (Coreg) 6.25 mg BIDWMEALS PO 07/26/21 08:00 08/02/21 09:02 DC 08/02/21 08:33 Mirtazapine (Remeron) 15 mg QHS PO 07/29/21 21:00 09/01/21 20:53 Carvedilol (Coreg) 12.5 mg BIDWMEALS PO 08/02/21 17:00 09/02/21 07:58 Albuterol Sulfate (Ventolin Hfa Inhaler) 2 puff PRN Q4HRS PRN INH SHORTNESS OF BREATH 08/02/21 09:15 08/29/21 20:44 Melatonin (Melatonin) 3 mg QHS PO 08/05/21 21:00 08/18/21 14:06 DC 08/17/21 20:06 Oxycodone/ Acetaminophen (Percocet 10) 1 tab PRN Q6HRS PRN PO MOD-SEV PAIN 08/15/21 00:15 08/15/21 00:23 Melatonin (Melatonin) 6 mg QHS PO 08/18/21 21:00 09/01/21 20:53 Influenza Virus Vaccine Quadrival (Flulaval Quad Syringe) 0.5 ml ONCE ONCE VAX IM 08/20/21 09:00 08/20/21 09:01 DC 08/20/21 11:35 Gabapentin (Neurontin) 100 mg 1X ONCE PO 08/30/21 14:00 08/30/21 14:01 Cancel Gabapentin (Neurontin) 200 mg 1X ONCE PO 08/30/21 21:00 08/30/21 21:01 Cancel Gabapentin (Neurontin) 300 mg BID PO 08/31/21 09:00 09/02/21 07:58 Gabapentin (Neurontin) 300 mg 1X ONCE PO 08/30/21 12:45 08/30/21 12:46 DC 08/30/21 12:42 I have reviewed the current psychotropics carefully including drug interactions. Risk benefit ratio favors no change other than as noted in my dictated progress note. 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
--- NOTE | 2021-09-02 09:56 | PDOC ---
Exam Note: Leo Note: This note is a late entry for 09/01/2021 covers elements not covered in my initial note. Subjective: The patient was reviewed at treatment team meeting individually in the morning on 09/01/2021 with Jennifer Vizcarra, Riri Heck (social work therapist), Jennifer, activity therapy and Aleah KOWALSKI, discussed and reviewed the chart. The patient slept 4-1/2 hours previous night. Sleeping 5 hours average. He is somewhat anxious. Reviewed his history at length. Reportedly he is very close to his mother. He has attended 5 groups in the past one week. He has been accepted at [facility] but has been difficult to get a hold of the nephew per social service staff to help with the transition. Discussed with Tenisha KOWALSKI in the evening. Review of Systems: Ambulation impaired in wheelchair. No CV, , pulmonary, eye, ENT system symptoms on review. Mental Status Exam: The patient is oriented to himself and situation. Insight and judgment, recent and remote memory, attention and concentration, fund of knowledge is poor consistent with his diagnoses. Laboratory Data: Reviewed. Impression: Major depressive disorder, in partial remission. Major neurocognitive disorder, Alzheimer, vascular with delusion, depression, behavioral disturbance. Anxiety disorder unspecified. Impulse control disorder unspecified. Plan: Continue current psychotropics from initial note. Assessment: Vital Signs/I&O: Vital Signs Date Time Temp Pulse Resp B/P (MAP) Pulse Ox O2 Delivery O2 Flow Rate FiO2 09/02/21 07:58 80 160/78 09/02/21 06:26 97.6 22 91 09/01/21 15:39 Room Air I & O 09/01/21 09/01/21 09/02/21 15:00 23:00 07:00 Intake Total 660 ml 720 ml Balance 660 ml 720 ml Labs: Laboratory Tests Test 09/02/21 07:41 Glucose (Fingerstick) 103 mg/dL (70-99) H Current Medications: Meds: Laboratory Tests Test 09/02/21 07:41 Glucose (Fingerstick) 103 mg/dL Current Medications Medications (Trade) Dose Ordered Sig/Aparna Route PRN Reason Start Time Stop Time Status Last Admin Dose Admin Acetaminophen (Tylenol) 650 mg PRN Q6HRS PRN PO MILD PAIN / TEMP > 100.3'F 07/06/21 00:30 Cancel Multi-Ingredient Ointment (Analgesic [place]) 1 inna PRN QID PRN TP MUSCLE PAIN 07/06/21 00:30 08/01/21 20:19 Al Hydroxide/Mg Hydroxide (Mylanta Plus Xs) 15 ml PRN AFTMEALHC PRN PO DYSPEPSIA 07/06/21 00:30 08/15/21 00:24 Magnesium Hydroxide (Milk Of Magnesia) 2,400 mg PRN QHS PRN PO 2ND CHOICE CONSTIPATION 07/06/21 00:30 07/14/21 08:13 Duloxetine HCl (Cymbalta) 20 mg HS PO 07/06/21 21:00 09/01/21 20:52 Duloxetine HCl (Cymbalta) 30 mg HS PO 07/06/21 21:00 09/01/21 20:52 Mirtazapine (Remeron) 7.5 mg HS PO 07/06/21 21:00 07/29/21 18:15 DC 07/28/21 20:09 Olanzapine (ZyPREXA ZYDIS) 2.5 mg PRN Q2HR PRN PO ANXIETY / AGITATION 07/06/21 01:15 09/02/21 02:44 Trazodone HCl (Desyrel) 50 mg PRN QHS PRN PO INSOMNIA 07/06/21 01:15 09/01/21 20:54 Acetaminophen (Tylenol) 650 mg PRN Q4HRS PRN PO MILD PAIN 1-3 07/06/21 10:30 08/31/21 14:06 Aspirin (Aspirin Enteric Coated) 81 mg DAILY PO 07/07/21 09:00 09/02/21 07:57 Atorvastatin Calcium (Lipitor) 10 mg QHS PO 07/06/21 21:00 09/01/21 20:53 Carvedilol (Coreg) 3.125 mg BIDWMEALS PO 07/06/21 17:00 07/25/21 17:52 DC 07/25/21 17:22 Gabapentin (Neurontin) 300 mg BID PO 07/06/21 21:00 08/30/21 12:29 DC 08/30/21 08:20 Metformin HCl (Glucophage Xr) 500 mg DAILYWBKFT PO 07/07/21 08:00 09/02/21 07:57 Multi-Ingredient Ointment (Analgesic [place]) 1 inna PRN QID PRN TP PAIN 07/06/21 10:30 UNV Phenytoin Sodium (Dilantin) 500 mg HS PO 07/06/21 21:00 07/07/21 22:27 DC 07/07/21 20:05 Tamsulosin HCl (Flomax) 0.4 mg DAILY PO 07/07/21 09:00 09/02/21 07:57 Polyethylene Glycol (miraLAX) 17 gm PRN DAILY PRN PO 1ST CHOICE CONSTIPATION 07/06/21 10:45 08/13/21 20:07 Non-Formulary Medication (Pravastatin Sodium ) 40 mg DAILY PO 07/07/21 09:00 UNV Phenyleph/Shark Oil/Min Oil/Petrol (Preparation H) 1 inna PRN QID PRN RC RECTAL PAIN 07/06/21 15:15 Phenytoin Sodium (Dilantin) 400 mg HS PO 07/08/21 21:00 07/11/21 23:36 DC 07/11/21 20:35 Albuterol/ Ipratropium (Combivent Respimat 20-100 Mcg) 1 puff QID INH 07/08/21 13:00 09/02/21 07:59 Docusate Sodium (Colace) 100 mg DAILY PO 07/09/21 09:00 09/02/21 07:57 Guaifenesin (Mucinex Er) 600 mg BID PO 07/08/21 21:00 09/02/21 07:57 Magnesium Hydroxide (Milk Of Magnesia) 2,400 mg PRN QHS PRN PO 2nd CHOICE CONSTIPATION 07/08/21 19:30 Cancel Phenytoin Sodium (Dilantin) 200 mg HS PO 07/12/21 21:00 09/01/21 20:53 Phenytoin Sodium (Dilantin) 100 mg DAILY PO 07/12/21 09:00 09/02/21 07:58 Carvedilol (Coreg) 6.25 mg BIDWMEALS PO 07/25/21 18:00 07/25/21 18:07 DC Carvedilol (Coreg) 6.25 mg BIDWMEALS PO 07/26/21 08:00 08/02/21 09:02 DC 08/02/21 08:33 Mirtazapine (Remeron) 15 mg QHS PO 07/29/21 21:00 10/4/21 20:53 Carvedilol (Coreg) 12.5 mg BIDWMEALS PO 08/02/21 17:00 09/02/21 07:58 Albuterol Sulfate (Ventolin Hfa Inhaler) 2 puff PRN Q4HRS PRN INH SHORTNESS OF BREATH 08/02/21 09:15 08/29/21 20:44 Melatonin (Melatonin) 3 mg QHS PO 08/05/21 21:00 08/18/21 14:06 DC 08/17/21 20:06 Oxycodone/ Acetaminophen (Percocet 10/325) 1 tab PRN Q6HRS PRN PO MOD-SEV PAIN 08/15/21 00:15 08/15/21 00:23 Melatonin (Melatonin) 6 mg QHS PO 08/18/21 21:00 09/01/21 20:53 Influenza Virus Vaccine Quadrival (Flulaval Quad Syringe) 0.5 ml ONCE ONCE VAX IM 08/20/21 09:00 08/20/21 09:01 DC 08/20/21 11:35 Gabapentin (Neurontin) 100 mg 1X ONCE PO 08/30/21 14:00 08/30/21 14:01 Cancel Gabapentin (Neurontin) 200 mg 1X ONCE PO 08/30/21 21:00 08/30/21 21:01 Cancel Gabapentin (Neurontin) 300 mg BID PO 08/31/21 09:00 09/02/21 07:58 Gabapentin (Neurontin) 300 mg 1X ONCE PO 08/30/21 12:45 08/30/21 12:46 DC 08/30/21 12:42 I have reviewed the current psychotropics carefully including drug interactions. Risk benefit ratio favors no change other than as noted in my dictated progress note. 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
[2021-09-02 16:30] VITALS: BP 131/67
--- NOTE | 2021-09-02 17:56 | NUR ---
Nsg Note; Nasir has had a pleasant day, sitting in the dayroom conversing with others and participating in afternoon group. As he had a nightmare last night and awakened at 0245 per report, he went back to bed for a nap after breakfast.
[2021-09-02] MEDS: DULoxetine HCL 30 MG CAPSULE.DR PO SCH (20:42)
[2021-09-02] MEDS: DULoxetine HCL 20 MG CAPSULE.DR PO SCH (20:42)
[2021-09-02] MEDS: MIRTAZAPINE 15 MG TABLET PO SCH (20:42)
[2021-09-02] MEDS: ATORVASTATIN CALCIUM 10 MG TABLET. PO SCH (20:42)
[2021-09-02] MEDS: MELATONIN 3 MG TABLET PO SCH (20:42)
[2021-09-02] MEDS: traZODone 50 MG TABLET. PO PRN (20:43)
--- NOTE | 2021-09-02 21:58 | PDOC ---
Exam Note: Leo Note: Please also refer to the separate dictated note~for this date of service dictated separately.~Patient seen individually. Discussed the patient with Nursing staff reviewed the chart.~Reviewed interim history and current functioning. Reviewed vital signs,~Labs/ Radiology~and current medications noted below. Continue current treatment with the changes noted in the dictated addendum note Assessment: Vital Signs/I&O: Vital Signs Date Time Temp Pulse Resp B/P (MAP) Pulse Ox O2 Delivery O2 Flow Rate FiO2 09/02/21 17:19 82 131/67 09/02/21 16:30 97.6 16 96 09/01/21 15:39 Room Air I & O 09/01/21 09/01/21 09/02/21 15:00 23:00 07:00 Intake Total 660 ml 720 ml Balance 660 ml 720 ml Labs: Laboratory Tests Test 09/02/21 07:41 Glucose (Fingerstick) 103 mg/dL (70-99) H Current Medications: Meds: Laboratory Tests Test 09/02/21 07:41 Glucose (Fingerstick) 103 mg/dL Current Medications Medications (Trade) Dose Ordered Sig/Aparna Route PRN Reason Start Time Stop Time Status Last Admin Dose Admin Acetaminophen (Tylenol) 650 mg PRN Q6HRS PRN PO MILD PAIN / TEMP > 100.3'F 07/06/21 00:30 Cancel Multi-Ingredient Ointment (Analgesic [place]) 1 inna PRN QID PRN TP MUSCLE PAIN 07/06/21 00:30 08/01/21 20:19 Al Hydroxide/Mg Hydroxide (Mylanta Plus Xs) 15 ml PRN AFTMEALHC PRN PO DYSPEPSIA 07/06/21 00:30 08/15/21 00:24 Magnesium Hydroxide (Milk Of Magnesia) 2,400 mg PRN QHS PRN PO 2ND CHOICE CONSTIPATION 07/06/21 00:30 07/14/21 08:13 Duloxetine HCl (Cymbalta) 20 mg HS PO 07/06/21 21:00 09/02/21 20:42 Duloxetine HCl (Cymbalta) 30 mg HS PO 07/06/21 21:00 09/02/21 20:42 Mirtazapine (Remeron) 7.5 mg HS PO 07/06/21 21:00 07/29/21 18:15 DC 07/28/21 20:09 Olanzapine (ZyPREXA ZYDIS) 2.5 mg PRN Q2HR PRN PO ANXIETY / AGITATION 07/06/21 01:15 09/02/21 02:44 Trazodone HCl (Desyrel) 50 mg PRN QHS PRN PO INSOMNIA 07/06/21 01:15 09/02/21 20:43 Acetaminophen (Tylenol) 650 mg PRN Q4HRS PRN PO MILD PAIN 1-3 07/06/21 10:30 08/31/21 14:06 Aspirin (Aspirin Enteric Coated) 81 mg DAILY PO 07/07/21 09:00 09/02/21 07:57 Atorvastatin Calcium (Lipitor) 10 mg QHS PO 07/06/21 21:00 09/02/21 20:42 Carvedilol (Coreg) 3.125 mg BIDWMEALS PO 07/06/21 17:00 07/25/21 17:52 DC 07/25/21 17:22 Gabapentin (Neurontin) 300 mg BID PO 07/06/21 21:00 08/30/21 12:29 DC 08/30/21 08:20 Metformin HCl (Glucophage Xr) 500 mg DAILYWBKFT PO 07/07/21 08:00 09/02/21 07:57 Multi-Ingredient Ointment (Analgesic [place]) 1 inna PRN QID PRN TP PAIN 07/06/21 10:30 UNV Phenytoin Sodium (Dilantin) 500 mg HS PO 07/06/21 21:00 07/07/21 22:27 DC 07/07/21 20:05 Tamsulosin HCl (Flomax) 0.4 mg DAILY PO 07/07/21 09:00 09/02/21 07:57 Polyethylene Glycol (miraLAX) 17 gm PRN DAILY PRN PO 1ST CHOICE CONSTIPATION 07/06/21 10:45 08/13/21 20:07 Non-Formulary Medication (Pravastatin Sodium ) 40 mg DAILY PO 07/07/21 09:00 UNV Phenyleph/Shark Oil/Min Oil/Petrol (Preparation H) 1 inna PRN QID PRN RC RECTAL PAIN 07/06/21 15:15 Phenytoin Sodium (Dilantin) 400 mg HS PO 07/08/21 21:00 07/11/21 23:36 DC 07/11/21 20:35 Albuterol/ Ipratropium (Combivent Respimat 20-100 Mcg) 1 puff QID INH 07/08/21 13:00 09/02/21 20:43 Docusate Sodium (Colace) 100 mg DAILY PO 07/09/21 09:00 09/02/21 07:57 Guaifenesin (Mucinex Er) 600 mg BID PO 07/08/21 21:00 09/02/21 20:42 Magnesium Hydroxide (Milk Of Magnesia) 2,400 mg PRN QHS PRN PO 2nd CHOICE CONSTIPATION 07/08/21 19:30 Cancel Phenytoin Sodium (Dilantin) 200 mg HS PO 07/12/21 21:00 09/02/21 20:42 Phenytoin Sodium (Dilantin) 100 mg DAILY PO 07/12/21 09:00 09/02/21 07:58 Carvedilol (Coreg) 6.25 mg BIDWMEALS PO 07/25/21 18:00 07/25/21 18:07 DC Carvedilol (Coreg) 6.25 mg BIDWMEALS PO 07/26/21 08:00 08/02/21 09:02 DC 08/02/21 08:33 Mirtazapine (Remeron) 15 mg QHS PO 07/29/21 21:00 09/02/21 20:42 Carvedilol (Coreg) 12.5 mg BIDWMEALS PO 08/02/21 17:00 09/02/21 17:19 Albuterol Sulfate (Ventolin Hfa Inhaler) 2 puff PRN Q4HRS PRN INH SHORTNESS OF BREATH 08/02/21 09:15 08/29/21 20:44 Melatonin (Melatonin) 3 mg QHS PO 08/05/21 21:00 08/18/21 14:06 DC 08/17/21 20:06 Oxycodone/ Acetaminophen (Percocet 10/325) 1 tab PRN Q6HRS PRN PO MOD-SEV PAIN 08/15/21 00:15 08/15/21 00:23 Melatonin (Melatonin) 6 mg QHS PO 08/18/21 21:00 09/02/21 20:42 Influenza Virus Vaccine Quadrival (Flulaval Quad Syringe) 0.5 ml ONCE ONCE VAX IM 08/20/21 09:00 08/20/21 09:01 DC 08/20/21 11:35 Gabapentin (Neurontin) 100 mg 1X ONCE PO 08/30/21 14:00 08/30/21 14:01 Cancel Gabapentin (Neurontin) 200 mg 1X ONCE PO 08/30/21 21:00 08/30/21 21:01 Cancel Gabapentin (Neurontin) 300 mg BID PO 08/31/21 09:00 09/02/21 20:42 Gabapentin (Neurontin) 300 mg 1X ONCE PO 08/30/21 12:45 08/30/21 12:46 DC 08/30/21 12:42 I have reviewed the current psychotropics carefully including drug interactions. Risk benefit ratio favors no change other than as noted in my dictated progress note. 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
--- NOTE | 2021-09-02 23:51 | NUR ---
Pt sitting in his room this evening. Pleasant and cooperative. Compliant with whole medications.
[2021-09-03 06:06] VITALS: BP 161/80
[2021-09-03] MEDS: metFORMIN XR 500 MG TAB.ER.24H PO SCH (08:44)
[2021-09-03] MEDS: DOCUSATE SODIUM 100 MG CAPSULE PO SCH (08:45)
[2021-09-03] MEDS: PHENYTOIN SODIUM EXTENDED 100 MG CAPSULE PO SCH ×2 (08:45→20:58)
[2021-09-03] MEDS: CARVEDILOL 12.5 MG TABLET PO SCH ×2 (08:45→16:48)
[2021-09-03] MEDS: TAMSULOSIN 0.4 MG CAP.ER.24H. PO SCH (08:45)
[2021-09-03] MEDS: ASPIRIN ENTERIC COATED 81 MG TABLET.DR. PO SCH (08:45)
[2021-09-03] MEDS: GABAPENTIN 300 MG CAPSULE. PO SCH ×2 (08:45→20:58)
[2021-09-03] MEDS: IPRATROPIUM/ALBUTEROL 20/100mcg/INH INHALER. INH SCH ×4 (08:46→21:00)
--- NOTE | 2021-09-03 12:42 | NUR ---
RN DAY SHIFT NOTE: PT PRESENTS WITH PLEASANT MOOD/AFFECT. PT IS MEDICATION COMPLIANT AND IN GOOD SPIRITS. PT CONTINUES TO HAVE A GOOD APPETITE. PT IS LOW-SOLIS ON THE UNIT. PT IS NOTED TO SPEND HIS TIME IN HIS ROOM. PT SLEPT 3.75 HOURS LAST NIGHT. PT IS ABLE TO MAKE NEEDS KNOWN TO STAFF. PT KNOWS NAME AND . WILL CONTINUE TO MONITOR.
[2021-09-03 15:39] VITALS: BP 118/72
[2021-09-03] MEDS: MIRTAZAPINE 15 MG TABLET PO SCH (20:58)
[2021-09-03] MEDS: MELATONIN 3 MG TABLET PO SCH (20:58)
[2021-09-03] MEDS: DULoxetine HCL 30 MG CAPSULE.DR PO SCH (20:59)
[2021-09-03] MEDS: ATORVASTATIN CALCIUM 10 MG TABLET. PO SCH (20:59)
[2021-09-03] MEDS: DULoxetine HCL 20 MG CAPSULE.DR PO SCH (20:59)
--- NOTE | 2021-09-03 22:02 | PDOC ---
Exam Note: Leo Note: Please also refer to the separate dictated note~for this date of service dictated separately.~Patient seen individually. Discussed the patient with Nursing staff reviewed the chart.~Reviewed interim history and current functioning. Reviewed vital signs,~Labs/ Radiology~and current medications noted below. Continue current treatment with the changes noted in the dictated addendum note Assessment: Vital Signs/I&O: Vital Signs Date Time Temp Pulse Resp B/P (MAP) Pulse Ox O2 Delivery O2 Flow Rate FiO2 09/03/21 16:48 80 118/72 09/03/21 15:39 97.8 20 95 Room Air I & O 09/02/21 09/02/21 09/03/21 15:00 23:00 07:00 Intake Total 1320 ml 480 ml Balance 1320 ml 480 ml Labs: Laboratory Tests Test 09/03/21 07:30 Glucose (Fingerstick) 118 mg/dL (70-99) H Current Medications: Meds: Laboratory Tests Test 09/03/21 07:30 Glucose (Fingerstick) 118 mg/dL Current Medications Medications (Trade) Dose Ordered Sig/Aparna Route PRN Reason Start Time Stop Time Status Last Admin Dose Admin Acetaminophen (Tylenol) 650 mg PRN Q6HRS PRN PO MILD PAIN / TEMP > 100.3'F 07/06/21 00:30 Cancel Multi-Ingredient Ointment (Analgesic [place]) 1 inna PRN QID PRN TP MUSCLE PAIN 07/06/21 00:30 08/01/21 20:19 Al Hydroxide/Mg Hydroxide (Mylanta Plus Xs) 15 ml PRN AFTMEALHC PRN PO DYSPEPSIA 07/06/21 00:30 08/15/21 00:24 Magnesium Hydroxide (Milk Of Magnesia) 2,400 mg PRN QHS PRN PO 2ND CHOICE CONSTIPATION 07/06/21 00:30 07/14/21 08:13 Duloxetine HCl (Cymbalta) 20 mg HS PO 07/06/21 21:00 09/03/21 20:59 Duloxetine HCl (Cymbalta) 30 mg HS PO 07/06/21 21:00 09/03/21 20:59 Mirtazapine (Remeron) 7.5 mg HS PO 07/06/21 21:00 07/29/21 18:15 DC 07/28/21 20:09 Olanzapine (ZyPREXA ZYDIS) 2.5 mg PRN Q2HR PRN PO ANXIETY / AGITATION 07/06/21 01:15 09/02/21 02:44 Trazodone HCl (Desyrel) 50 mg PRN QHS PRN PO INSOMNIA 07/06/21 01:15 09/02/21 20:43 Acetaminophen (Tylenol) 650 mg PRN Q4HRS PRN PO MILD PAIN 1-3 07/06/21 10:30 08/31/21 14:06 Aspirin (Aspirin Enteric Coated) 81 mg DAILY PO 07/07/21 09:00 09/03/21 08:45 Atorvastatin Calcium (Lipitor) 10 mg QHS PO 07/06/21 21:00 09/03/21 20:59 Carvedilol (Coreg) 3.125 mg BIDWMEALS PO 07/06/21 17:00 07/25/21 17:52 DC 07/25/21 17:22 Gabapentin (Neurontin) 300 mg BID PO 07/06/21 21:00 08/30/21 12:29 DC 08/30/21 08:20 Metformin HCl (Glucophage Xr) 500 mg DAILYWBKFT PO 07/07/21 08:00 09/03/21 08:44 Multi-Ingredient Ointment (Analgesic [place]) 1 inna PRN QID PRN TP PAIN 07/06/21 10:30 UNV Phenytoin Sodium (Dilantin) 500 mg HS PO 07/06/21 21:00 07/07/21 22:27 DC 07/07/21 20:05 Tamsulosin HCl (Flomax) 0.4 mg DAILY PO 07/07/21 09:00 09/03/21 08:45 Polyethylene Glycol (miraLAX) 17 gm PRN DAILY PRN PO 1ST CHOICE CONSTIPATION 07/06/21 10:45 08/13/21 20:07 Non-Formulary Medication (Pravastatin Sodium ) 40 mg DAILY PO 07/07/21 09:00 UNV Phenyleph/Shark Oil/Min Oil/Petrol (Preparation H) 1 inna PRN QID PRN RC RECTAL PAIN 07/06/21 15:15 Phenytoin Sodium (Dilantin) 400 mg HS PO 07/08/21 21:00 07/11/21 23:36 DC 07/11/21 20:35 Albuterol/ Ipratropium (Combivent Respimat 20-100 Mcg) 1 puff QID INH 07/08/21 13:00 09/03/21 21:00 Docusate Sodium (Colace) 100 mg DAILY PO 07/09/21 09:00 09/03/21 08:45 Guaifenesin (Mucinex Er) 600 mg BID PO 07/08/21 21:00 09/03/21 20:59 Magnesium Hydroxide (Milk Of Magnesia) 2,400 mg PRN QHS PRN PO 2nd CHOICE CONSTIPATION 07/08/21 19:30 Cancel Phenytoin Sodium (Dilantin) 200 mg HS PO 07/12/21 21:00 09/03/21 20:58 Phenytoin Sodium (Dilantin) 100 mg DAILY PO 07/12/21 09:00 09/03/21 08:45 Carvedilol (Coreg) 6.25 mg BIDWMEALS PO 07/25/21 18:00 07/25/21 18:07 DC Carvedilol (Coreg) 6.25 mg BIDWMEALS PO 07/26/21 08:00 08/02/21 09:02 DC 08/02/21 08:33 Mirtazapine (Remeron) 15 mg QHS PO 07/29/21 21:00 09/03/21 20:58 Carvedilol (Coreg) 12.5 mg BIDWMEALS PO 08/02/21 17:00 09/03/21 16:48 Albuterol Sulfate (Ventolin Hfa Inhaler) 2 puff PRN Q4HRS PRN INH SHORTNESS OF BREATH 08/02/21 09:15 08/29/21 20:44 Melatonin (Melatonin) 3 mg QHS PO 08/05/21 21:00 08/18/21 14:06 DC 08/17/21 20:06 Oxycodone/ Acetaminophen (Percocet 10/325) 1 tab PRN Q6HRS PRN PO MOD-SEV PAIN 08/15/21 00:15 08/15/21 00:23 Melatonin (Melatonin) 6 mg QHS PO 08/18/21 21:00 09/03/21 20:58 Influenza Virus Vaccine Quadrival (Flulaval Quad [id number] Syringe) 0.5 ml ONCE ONCE VAX IM 08/20/21 09:00 08/20/21 09:01 DC 08/20/21 11:35 Gabapentin (Neurontin) 100 mg 1X ONCE PO 08/30/21 14:00 08/30/21 14:01 Cancel Gabapentin (Neurontin) 200 mg 1X ONCE PO 08/30/21 21:00 08/30/21 21:01 Cancel Gabapentin (Neurontin) 300 mg BID PO 08/31/21 09:00 09/03/21 20:58 Gabapentin (Neurontin) 300 mg 1X ONCE PO 08/30/21 12:45 08/30/21 12:46 DC 08/30/21 12:42 I have reviewed the current psychotropics carefully including drug interactions. Risk benefit ratio favors no change other than as noted in my dictated progress note. 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
--- NOTE | 2021-09-04 01:06 | NUR ---
Nursing Note The patient was located in his room for his medication and assessment. The patient was pleasant during interactions with this nurse. the patient took his medication whole. The patient was interactive with peers. The patient is currently sleeping in his room.
[2021-09-04] MEDS: ALBUTEROL SULFATE 8GM INHALER. INH PRN (04:33)
[2021-09-04 06:29] VITALS: BP 133/70
--- NOTE | 2021-09-04 08:16 | PDOC ---
Exam Note: Leo Note: This note is a late entry for 09/02/2021 covers elements not covered in my initial note. Subjective: The patient was seen individually in the evening of 09/02/2021 with Aleah KOWALSKI, discussed and reviewed the chart. The patient slept 4 hours previous night. He is doing about the same. He remains isolative in his room. He is up at 2.45 a.m., complaining of shortness of breath, yelling, anxious. Received trazodone, Zyprexa which seem to help. Review of Systems: Positive for some shortness of breath. Ambulation impaired in wheelchair. No CV, , eye, ENT system symptoms on review. Mental Status Exam: The patient is oriented to himself and situation. Insight and judgment, recent and remote memory, attention and concentration, fund of knowledge is poor consistent with his diagnoses. Laboratory Data: Reviewed. Impression: Major depressive disorder, in partial remission. Major neurocognitive disorder, Alzheimer, vascular with delusion, depression, behavioral disturbance. Anxiety disorder unspecified. Impulse control disorder unspecified. Plan: Continue current psychotropics from initial note. Assessment: Vital Signs/I&O: Vital Signs Date Time Temp Pulse Resp B/P (MAP) Pulse Ox O2 Delivery O2 Flow Rate FiO2 09/04/21 06:29 97.7 83 22 133/70 (91) 91 09/03/21 15:39 Room Air I & O 09/03/21 09/03/21 09/04/21 15:00 23:00 07:00 Intake Total 1160 ml 600 ml Balance 1160 ml 600 ml Labs: Laboratory Tests Test 09/04/21 07:32 Glucose (Fingerstick) 112 mg/dL (70-99) H Current Medications: Meds: Laboratory Tests Test 09/04/21 07:32 Glucose (Fingerstick) 112 mg/dL Current Medications Medications (Trade) Dose Ordered Sig/Aparna Route PRN Reason Start Time Stop Time Status Last Admin Dose Admin Acetaminophen (Tylenol) 650 mg PRN Q6HRS PRN PO MILD PAIN / TEMP > 100.3'F 07/06/21 00:30 Cancel Multi-Ingredient Ointment (Analgesic [place]) 1 inna PRN QID PRN TP MUSCLE PAIN 07/06/21 00:30 08/01/21 20:19 Al Hydroxide/Mg Hydroxide (Mylanta Plus Xs) 15 ml PRN AFTMEALHC PRN PO DYSPEPSIA 07/06/21 00:30 08/15/21 00:24 Magnesium Hydroxide (Milk Of Magnesia) 2,400 mg PRN QHS PRN PO 2ND CHOICE CONSTIPATION 07/06/21 00:30 07/14/21 08:13 Duloxetine HCl (Cymbalta) 20 mg HS PO 07/06/21 21:00 09/03/21 20:59 Duloxetine HCl (Cymbalta) 30 mg HS PO 07/06/21 21:00 09/03/21 20:59 Mirtazapine (Remeron) 7.5 mg HS PO 07/06/21 21:00 07/29/21 18:15 DC 07/28/21 20:09 Olanzapine (ZyPREXA ZYDIS) 2.5 mg PRN Q2HR PRN PO ANXIETY / AGITATION 07/06/21 01:15 09/02/21 02:44 Trazodone HCl (Desyrel) 50 mg PRN QHS PRN PO INSOMNIA 07/06/21 01:15 09/02/21 20:43 Acetaminophen (Tylenol) 650 mg PRN Q4HRS PRN PO MILD PAIN 1-3 07/06/21 10:30 08/31/21 14:06 Aspirin (Aspirin Enteric Coated) 81 mg DAILY PO 07/07/21 09:00 09/03/21 08:45 Atorvastatin Calcium (Lipitor) 10 mg QHS PO 07/06/21 21:00 09/03/21 20:59 Carvedilol (Coreg) 3.125 mg BIDWMEALS PO 07/06/21 17:00 07/25/21 17:52 DC 07/25/21 17:22 Gabapentin (Neurontin) 300 mg BID PO 07/06/21 21:00 08/30/21 12:29 DC 08/30/21 08:20 Metformin HCl (Glucophage Xr) 500 mg DAILYWBKFT PO 07/07/21 08:00 09/03/21 08:44 Multi-Ingredient Ointment (Analgesic [place]) 1 inna PRN QID PRN TP PAIN 07/06/21 10:30 UNV Phenytoin Sodium (Dilantin) 500 mg HS PO 07/06/21 21:00 07/07/21 22:27 DC 07/07/21 20:05 Tamsulosin HCl (Flomax) 0.4 mg DAILY PO 07/07/21 09:00 09/03/21 08:45 Polyethylene Glycol (miraLAX) 17 gm PRN DAILY PRN PO 1ST CHOICE CONSTIPATION 07/06/21 10:45 08/13/21 20:07 Non-Formulary Medication (Pravastatin Sodium ) 40 mg DAILY PO 07/07/21 09:00 UNV Phenyleph/Shark Oil/Min Oil/Petrol (Preparation H) 1 inna PRN QID PRN RC RECTAL PAIN 07/06/21 15:15 Phenytoin Sodium (Dilantin) 400 mg HS PO 07/08/21 21:00 07/11/21 23:36 DC 07/11/21 20:35 Albuterol/ Ipratropium (Combivent Respimat 20-100 Mcg) 1 puff QID INH 07/08/21 13:00 09/03/21 21:00 Docusate Sodium (Colace) 100 mg DAILY PO 07/09/21 09:00 09/03/21 08:45 Guaifenesin (Mucinex Er) 600 mg BID PO 07/08/21 21:00 09/03/21 20:59 Magnesium Hydroxide (Milk Of Magnesia) 2,400 mg PRN QHS PRN PO 2nd CHOICE CONSTIPATION 07/08/21 19:30 Cancel Phenytoin Sodium (Dilantin) 200 mg HS PO 07/12/21 21:00 09/03/21 20:58 Phenytoin Sodium (Dilantin) 100 mg DAILY PO 07/12/21 09:00 09/03/21 08:45 Carvedilol (Coreg) 6.25 mg BIDWMEALS PO 07/25/21 18:00 07/25/21 18:07 DC Carvedilol (Coreg) 6.25 mg BIDWMEALS PO 07/26/21 08:00 08/02/21 09:02 DC 08/02/21 08:33 Mirtazapine (Remeron) 15 mg QHS PO 07/29/21 21:00 09/03/21 20:58 Carvedilol (Coreg) 12.5 mg BIDWMEALS PO 08/02/21 17:00 09/03/21 16:48 Albuterol Sulfate (Ventolin Hfa Inhaler) 2 puff PRN Q4HRS PRN INH SHORTNESS OF BREATH 08/02/21 09:15 09/04/21 04:33 Melatonin (Melatonin) 3 mg QHS PO 08/05/21 21:00 08/18/21 14:06 DC 08/17/21 20:06 Oxycodone/ Acetaminophen (Percocet 10) 1 tab PRN Q6HRS PRN PO MOD-SEV PAIN 08/15/21 00:15 08/15/21 00:23 Melatonin (Melatonin) 6 mg QHS PO 08/18/21 21:00 09/03/21 20:58 Influenza Virus Vaccine Quadrival (Flulaval Quad [id number] Syringe) 0.5 ml ONCE ONCE VAX IM 08/20/21 09:00 08/20/21 09:01 DC 08/20/21 11:35 Gabapentin (Neurontin) 100 mg 1X ONCE PO 08/30/21 14:00 08/30/21 14:01 Cancel Gabapentin (Neurontin) 200 mg 1X ONCE PO 08/30/21 21:00 08/30/21 21:01 Cancel Gabapentin (Neurontin) 300 mg BID PO 08/31/21 09:00 09/03/21 20:58 Gabapentin (Neurontin) 300 mg 1X ONCE PO 08/30/21 12:45 08/30/21 12:46 DC 08/30/21 12:42 I have reviewed the current psychotropics carefully including drug interactions. Risk benefit ratio favors no change other than as noted in my dictated progress note. 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
[2021-09-04] MEDS: ASPIRIN ENTERIC COATED 81 MG TABLET.DR. PO SCH (08:42)
[2021-09-04] MEDS: DOCUSATE SODIUM 100 MG CAPSULE PO SCH (08:42)
[2021-09-04] MEDS: metFORMIN XR 500 MG TAB.ER.24H PO SCH (08:42)
[2021-09-04] MEDS: CARVEDILOL 12.5 MG TABLET PO SCH ×2 (08:42→17:49)
[2021-09-04] MEDS: TAMSULOSIN 0.4 MG CAP.ER.24H. PO SCH (08:42)
[2021-09-04] MEDS: IPRATROPIUM/ALBUTEROL 20/100mcg/INH INHALER. INH SCH ×4 (08:43→21:21)
[2021-09-04] MEDS: GABAPENTIN 300 MG CAPSULE. PO SCH ×2 (08:43→21:23)
[2021-09-04] MEDS: PHENYTOIN SODIUM EXTENDED 100 MG CAPSULE PO SCH ×2 (08:43→21:23)
--- NOTE | 2021-09-04 08:43 | PDOC ---
Exam Note: Leo Note: This note is a late entry for 09/03/2021 covers elements not covered in my initial note. Subjective: The patient was seen individually in the evening of 09/03/2021 with Eliud KOWALSKI, discussed and reviewed the chart. The patient slept 3-3/4 hours previous night. He has done reasonably well during the day. Previous night he was restless, compliant with medications, anxious. Anxiety worsens in the evening. Review of Systems: Ambulation impaired in wheelchair. No CV, , pulmonary, eye, ENT system symptoms on review. Mental Status Exam: The patient is oriented to himself and situation. Insight and judgment, recent and remote memory, attention and concentration, fund of knowledge is poor consistent with his diagnoses. Laboratory Data: Reviewed. Impression: Major depressive disorder, in partial remission. Major neurocognitive disorder, Alzheimer, vascular with delusion, depression, behavioral disturbance. Anxiety disorder unspecified. Impulse control disorder unspecified. Plan: Continue current psychotropics from initial note. Social service staff is actively working with the nephew to arrange placement. Assessment: Vital Signs/I&O: Vital Signs Date Time Temp Pulse Resp B/P (MAP) Pulse Ox O2 Delivery O2 Flow Rate FiO2 09/04/21 06:29 97.7 83 22 133/70 (91) 91 09/03/21 15:39 Room Air I & O 09/03/21 09/03/21 09/04/21 15:00 23:00 07:00 Intake Total 1160 ml 600 ml Balance 1160 ml 600 ml Labs: Laboratory Tests Test 09/04/21 07:32 Glucose (Fingerstick) 112 mg/dL (70-99) H Current Medications: Meds: Laboratory Tests Test 09/04/21 07:32 Glucose (Fingerstick) 112 mg/dL Current Medications Medications (Trade) Dose Ordered Sig/Aparna Route PRN Reason Start Time Stop Time Status Last Admin Dose Admin Acetaminophen (Tylenol) 650 mg PRN Q6HRS PRN PO MILD PAIN / TEMP > 100.3'F 07/06/21 00:30 Cancel Multi-Ingredient Ointment (Analgesic [place]) 1 inna PRN QID PRN TP MUSCLE PAIN 07/06/21 00:30 08/01/21 20:19 Al Hydroxide/Mg Hydroxide (Mylanta Plus Xs) 15 ml PRN AFTMEALHC PRN PO DYSPEPSIA 07/06/21 00:30 08/15/21 00:24 Magnesium Hydroxide (Milk Of Magnesia) 2,400 mg PRN QHS PRN PO 2ND CHOICE CONSTIPATION 07/06/21 00:30 07/14/21 08:13 Duloxetine HCl (Cymbalta) 20 mg HS PO 07/06/21 21:00 09/03/21 20:59 Duloxetine HCl (Cymbalta) 30 mg HS PO 07/06/21 21:00 09/03/21 20:59 Mirtazapine (Remeron) 7.5 mg HS PO 07/06/21 21:00 07/29/21 18:15 DC 07/28/21 20:09 Olanzapine (ZyPREXA ZYDIS) 2.5 mg PRN Q2HR PRN PO ANXIETY / AGITATION 07/06/21 01:15 09/02/21 02:44 Trazodone HCl (Desyrel) 50 mg PRN QHS PRN PO INSOMNIA 07/06/21 01:15 09/02/21 20:43 Acetaminophen (Tylenol) 650 mg PRN Q4HRS PRN PO MILD PAIN 1-3 07/06/21 10:30 08/31/21 14:06 Aspirin (Aspirin Enteric Coated) 81 mg DAILY PO 07/07/21 09:00 09/03/21 08:45 Atorvastatin Calcium (Lipitor) 10 mg QHS PO 07/06/21 21:00 09/03/21 20:59 Carvedilol (Coreg) 3.125 mg BIDWMEALS PO 07/06/21 17:00 07/25/21 17:52 DC 07/25/21 17:22 Gabapentin (Neurontin) 300 mg BID PO 07/06/21 21:00 08/30/21 12:29 DC 08/30/21 08:20 Metformin HCl (Glucophage Xr) 500 mg DAILYWBKFT PO 07/07/21 08:00 09/03/21 08:44 Multi-Ingredient Ointment (Analgesic [place]) 1 inna PRN QID PRN TP PAIN 07/06/21 10:30 UNV Phenytoin Sodium (Dilantin) 500 mg HS PO 07/06/21 21:00 07/07/21 22:27 DC 07/07/21 20:05 Tamsulosin HCl (Flomax) 0.4 mg DAILY PO 07/07/21 09:00 09/03/21 08:45 Polyethylene Glycol (miraLAX) 17 gm PRN DAILY PRN PO 1ST CHOICE CONSTIPATION 07/06/21 10:45 08/13/21 20:07 Non-Formulary Medication (Pravastatin Sodium ) 40 mg DAILY PO 07/07/21 09:00 UNV Phenyleph/Shark Oil/Min Oil/Petrol (Preparation H) 1 inna PRN QID PRN RC RECTAL PAIN 07/06/21 15:15 Phenytoin Sodium (Dilantin) 400 mg HS PO 07/08/21 21:00 07/11/21 23:36 DC 07/11/21 20:35 Albuterol/ Ipratropium (Combivent Respimat 20-100 Mcg) 1 puff QID INH 07/08/21 13:00 09/03/21 21:00 Docusate Sodium (Colace) 100 mg DAILY PO 07/09/21 09:00 09/03/21 08:45 Guaifenesin (Mucinex Er) 600 mg BID PO 07/08/21 21:00 09/03/21 20:59 Magnesium Hydroxide (Milk Of Magnesia) 2,400 mg PRN QHS PRN PO 2nd CHOICE CONSTIPATION 07/08/21 19:30 Cancel Phenytoin Sodium (Dilantin) 200 mg HS PO 07/12/21 21:00 09/03/21 20:58 Phenytoin Sodium (Dilantin) 100 mg DAILY PO 07/12/21 09:00 09/03/21 08:45 Carvedilol (Coreg) 6.25 mg BIDWMEALS PO 07/25/21 18:00 07/25/21 18:07 DC Carvedilol (Coreg) 6.25 mg BIDWMEALS PO 07/26/21 08:00 08/02/21 09:02 DC 08/02/21 08:33 Mirtazapine (Remeron) 15 mg QHS PO 07/29/21 21:00 09/03/21 20:58 Carvedilol (Coreg) 12.5 mg BIDWMEALS PO 08/02/21 17:00 09/03/21 16:48 Albuterol Sulfate (Ventolin Hfa Inhaler) 2 puff PRN Q4HRS PRN INH SHORTNESS OF BREATH 08/02/21 09:15 09/04/21 04:33 Melatonin (Melatonin) 3 mg QHS PO 08/05/21 21:00 08/18/21 14:06 DC 08/17/21 20:06 Oxycodone/ Acetaminophen (Percocet 10/325) 1 tab PRN Q6HRS PRN PO MOD-SEV PAIN 08/15/21 00:15 08/15/21 00:23 Melatonin (Melatonin) 6 mg QHS PO 08/18/21 21:00 09/03/21 20:58 Influenza Virus Vaccine Quadrival (Flulaval Quad 9705-0301 Syringe) 0.5 ml ONCE ONCE VAX IM 08/20/21 09:00 08/20/21 09:01 DC 08/20/21 11:35 Gabapentin (Neurontin) 100 mg 1X ONCE PO 08/30/21 14:00 08/30/21 14:01 Cancel Gabapentin (Neurontin) 200 mg 1X ONCE PO 08/30/21 21:00 08/30/21 21:01 Cancel Gabapentin (Neurontin) 300 mg BID PO 08/31/21 09:00 09/03/21 20:58 Gabapentin (Neurontin) 300 mg 1X ONCE PO 08/30/21 12:45 08/30/21 12:46 DC 08/30/21 12:42 I have reviewed the current psychotropics carefully including drug interactions. Risk benefit ratio favors no change other than as noted in my dictated progress note. Diagnosis: Problems: (1) Impulse control disorder, unspecified (2) Anxiety disorder, unspecified (3) Dementia, vascular, with depression (4) Dementia, vascular, with delusions (5) Major neurocognitive disorder (6) Dementia in Alzheimer's disease with depression (7) Dementia in Alzheimer's disease with delusions (8) Dementia of the Alzheimer's type with early onset with behavioral disturbance (9) Major depressive disorder in partial remission NIK LOYA MD Sep 04, 2021 08:43
--- NOTE | 2021-09-04 11:30 | NUR ---
Nursing note: Pt in dining room at time of AM med pass and assessment. He is pleasant, med compliant and cooperative. He denies having any pain/concerns. He is currently resting quietly in his room. Will continue to monitor.
[2021-09-04] MEDS: ACETAMINOPHEN 325 MG TABLET PO PRN (15:07)
[2021-09-04 16:44] VITALS: BP 153/70
[2021-09-04 16:52] VITALS: BP 129/86
[2021-09-04] MEDS: MELATONIN 3 MG TABLET PO SCH (21:23)
[2021-09-04] MEDS: DULoxetine HCL 30 MG CAPSULE.DR PO SCH (21:23)
[2021-09-04] MEDS: DULoxetine HCL 20 MG CAPSULE.DR PO SCH (21:23)
[2021-09-04] MEDS: MIRTAZAPINE 15 MG TABLET PO SCH (21:24)
[2021-09-04] MEDS: ATORVASTATIN CALCIUM 10 MG TABLET. PO SCH (21:24)
--- NOTE | 2021-09-04 22:00 | PDOC ---
Exam Note: Leo Note: Please also refer to the separate dictated note~for this date of service dictated separately.~Patient seen individually. Discussed the patient with Nursing staff reviewed the chart.~Reviewed interim history and current functioning. Reviewed vital signs,~Labs/ Radiology~and current medications noted below. Continue current treatment with the changes noted in the dictated addendum note Assessment: Vital Signs/I&O: Vital Signs Date Time Temp Pulse Resp B/P (MAP) Pulse Ox O2 Delivery O2 Flow Rate FiO2 09/04/21 17:49 88 129/86 09/04/21 16:52 96.7 16 98 Room Air I & O 09/03/21 09/03/21 09/04/21 15:00 23:00 07:00 Intake Total 1160 ml 600 ml Balance 1160 ml 600 ml Labs: Laboratory Tests Test 09/04/21 07:32 09/04/21 17:18 Glucose (Fingerstick) 112 mg/dL (70-99) H 112 mg/dL (70-99) H Current Medications: Meds: Laboratory Tests Test 09/04/21 07:32 09/04/21 17:18 Glucose (Fingerstick) 112 mg/dL 112 mg/dL Current Medications Medications (Trade) Dose Ordered Sig/[place] Route PRN Reason Start Time Stop Time Status Last Admin Dose Admin Acetaminophen (Tylenol) 650 mg PRN Q6HRS PRN PO MILD PAIN / TEMP > 100.3'F 07/06/21 00:30 Cancel Multi-Ingredient Ointment (Analgesic [place]) 1 inna PRN QID PRN TP MUSCLE PAIN 07/06/21 00:30 08/01/21 20:19 Al Hydroxide/Mg Hydroxide (Mylanta Plus Xs) 15 ml PRN AFTMEALHC PRN PO DYSPEPSIA 07/06/21 00:30 08/15/21 00:24 Magnesium Hydroxide (Milk Of Magnesia) 2,400 mg PRN QHS PRN PO 2ND CHOICE CONSTIPATION 07/06/21 00:30 07/14/21 08:13 Duloxetine HCl (Cymbalta) 20 mg HS PO 07/06/21 21:00 09/04/21 21:23 Duloxetine HCl (Cymbalta) 30 mg HS PO 07/06/21 21:00 09/04/21 21:23 Mirtazapine (Remeron) 7.5 mg HS PO 07/06/21 21:00 07/29/21 18:15 DC 07/28/21 20:09 Olanzapine (ZyPREXA ZYDIS) 2.5 mg PRN Q2HR PRN PO ANXIETY / AGITATION 07/06/21 01:15 09/02/21 02:44 Trazodone HCl (Desyrel) 50 mg PRN QHS PRN PO INSOMNIA 07/06/21 01:15 09/02/21 20:43 Acetaminophen (Tylenol) 650 mg PRN Q4HRS PRN PO MILD PAIN 1-3 07/06/21 10:30 09/04/21 15:07 Aspirin (Aspirin Enteric Coated) 81 mg DAILY PO 07/07/21 09:00 09/04/21 08:42 Atorvastatin Calcium (Lipitor) 10 mg QHS PO 07/06/21 21:00 09/04/21 21:24 Carvedilol (Coreg) 3.125 mg BIDWMEALS PO 07/06/21 17:00 07/25/21 17:52 DC 07/25/21 17:22 Gabapentin (Neurontin) 300 mg BID PO 07/06/21 21:00 08/30/21 12:29 DC 08/30/21 08:20 Metformin HCl (Glucophage Xr) 500 mg DAILYWBKFT PO 07/07/21 08:00 09/04/21 08:42 Multi-Ingredient Ointment (Analgesic [place]) 1 inna PRN QID PRN TP PAIN 07/06/21 10:30 UNV Phenytoin Sodium (Dilantin) 500 mg HS PO 07/06/21 21:00 07/07/21 22:27 DC 07/07/21 20:05 Tamsulosin HCl (Flomax) 0.4 mg DAILY PO 07/07/21 09:00 09/04/21 08:42 Polyethylene Glycol (miraLAX) 17 gm PRN DAILY PRN PO 1ST CHOICE CONSTIPATION 07/06/21 10:45 08/13/21 20:07 Non-Formulary Medication (Pravastatin Sodium ) 40 mg DAILY PO 07/07/21 09:00 UNV Phenyleph/Shark Oil/Min Oil/Petrol (Preparation H) 1 inna PRN QID PRN RC RECTAL PAIN 07/06/21 15:15 Phenytoin Sodium (Dilantin) 400 mg HS PO 07/08/21 21:00 07/11/21 23:36 DC 07/11/21 20:35 Albuterol/ Ipratropium (Combivent Respimat 20-100 Mcg) 1 puff QID INH 07/08/21 13:00 09/04/21 21:21 Docusate Sodium (Colace) 100 mg DAILY PO 07/09/21 09:00 09/04/21 08:42 Guaifenesin (Mucinex Er) 600 mg BID PO 07/08/21 21:00 09/04/21 21:23 Magnesium Hydroxide (Milk Of Magnesia) 2,400 mg PRN QHS PRN PO 2nd CHOICE CONSTIPATION 07/08/21 19:30 Cancel Phenytoin Sodium (Dilantin) 200 mg HS PO 07/12/21 21:00 09/04/21 21:23 Phenytoin Sodium (Dilantin) 100 mg DAILY PO 07/12/21 09:00 09/04/21 08:43 Carvedilol (Coreg) 6.25 mg BIDWMEALS PO 07/25/21 18:00 07/25/21 18:07 DC Carvedilol (Coreg) 6.25 mg BIDWMEALS PO 07/26/21 08:00 08/02/21 09:02 DC 08/02/21 08:33 Mirtazapine (Remeron) 15 mg QHS PO 07/29/21 21:00 09/04/21 21:24 Carvedilol (Coreg) 12.5 mg BIDWMEALS PO 08/02/21 17:00 09/04/21 17:49 Albuterol Sulfate (Ventolin Hfa Inhaler) 2 puff PRN Q4HRS PRN INH SHORTNESS OF BREATH 08/02/21 09:15 09/04/21 04:33 Melatonin (Melatonin) 3 mg QHS PO 08/05/21 21:00 08/18/21 14:06 DC 08/17/21 20:06 Oxycodone/ Acetaminophen (Percocet 10/325) 1 tab PRN Q6HRS PRN PO MOD-SEV PAIN 08/15/21 00:15 08/15/21 00:23 Melatonin (Melatonin) 6 mg QHS PO 08/18/21 21:00 09/04/21 21:23 Influenza Virus Vaccine Quadrival (Flulaval Quad Syringe) 0.5 ml ONCE ONCE VAX IM 08/20/21 09:00 08/20/21 09:01 DC 08/20/21 11:35 Gabapentin (Neurontin) 100 mg 1X ONCE PO 08/30/21 14:00 08/30/21 14:01 Cancel Gabapentin (Neurontin) 200 mg 1X ONCE PO 08/30/21 21:00 08/30/21 21:01 Cancel Gabapentin (Neurontin) 300 mg BID PO 08/31/21 09:00 09/04/21 21:23 Gabapentin (Neurontin) 300 mg 1X ONCE PO 08/30/21 12:45 08/30/21 12:46 DC 08/30/21 12:42 I have reviewed the current psychotropics carefully including drug interactions. Risk benefit ratio favors no change other than as noted in my dictated progress note. 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
--- NOTE | 2021-09-04 23:46 | NUR ---
Nursing Note Pt is drowsy during my assessment. Awakens to take meds and inhalers, but is not very communicative. Earlier in the shift, pt was singing and talking and much more alert. Pt med compliant and cooperative, no behaviors.
[2021-09-05 06:28] VITALS: BP 144/69
[2021-09-05] MEDS: GABAPENTIN 300 MG CAPSULE. PO SCH ×2 (08:48→21:09)
[2021-09-05] MEDS: ASPIRIN ENTERIC COATED 81 MG TABLET.DR. PO SCH (08:48)
[2021-09-05] MEDS: DOCUSATE SODIUM 100 MG CAPSULE PO SCH (08:48)
[2021-09-05] MEDS: PHENYTOIN SODIUM EXTENDED 100 MG CAPSULE PO SCH ×2 (08:48→21:10)
[2021-09-05] MEDS: metFORMIN XR 500 MG TAB.ER.24H PO SCH (08:48)
[2021-09-05] MEDS: CARVEDILOL 12.5 MG TABLET PO SCH ×2 (08:49→17:49)
[2021-09-05] MEDS: TAMSULOSIN 0.4 MG CAP.ER.24H. PO SCH (08:49)
[2021-09-05] MEDS: IPRATROPIUM/ALBUTEROL 20/100mcg/INH INHALER. INH SCH ×4 (08:49→21:09)
--- NOTE | 2021-09-05 10:00 | NUR ---
Nursing note: Pt in dining room at time of AM med pass and assessment. He is pleasant, med compliant and cooperative. Pt has no complaints/concerns this AM. Pt walked to his room with standby assistance after breakfast and is currently resting in bed. Will continue to monitor.
--- NOTE | 2021-09-05 12:15 | NUR ---
ARI contacted pt nephew/NURYSHarjeet via speakerphone; co-worker/ARI Tineo was present as well. ARI inquired with Maikel on where the process is with placement. Maikel reports that after speaking with ARI on Wednesday, he set up the facility tour to complete everything Wednesday. Maikel reports that he went in between 1430 and 1500 reporting that an activity was happening where a band was playing and they had him wait until the activity was over. He reports meeting with the admission girl, who gave him the tour and showed him the area pt would be. By the end of the tour, he questioned paperwork and next steps. Maikel reports that he was told "no we wait and see the next steps" and was let go without completing anything further. ARI questioned who gave him the tour and he said the admissions girl; ARI questioned the name Jessica and he said yes. I spoke with her a few time before and she was the one I met with on Wednesday. Maikel reports that he was sent home on Wednesday as his fiance tested positive for Covid. He reports that she had some fatigue and a fever for two days; currently Maikel is waiting to get tested. He has cold-like symptoms and reports fatigue and weakness. He will currently be in quarantine for 10 days. ARI will attempt to contact [facility] to figure out why the rest of the process was not completed.
--- NOTE | 2021-09-05 12:35 | NUR ---
ARI attempted to contact [facility] and no one answered the phone. ARI contacted the Electron Tube [employer]sembler, Ann, and explained the situation with pt and placement. Ann reports that paperwork does not need to be done prior to admission. ARI explained previous conversations had with Rosaline about making sure a plan was in place for purposes of payment since pt will be considered self-pay. Ann reports that Rosaline has been out all week and she will have to follow up with Jessica to see what happened.
[2021-09-05] MEDS: ALBUTEROL SULFATE 8GM INHALER. INH PRN (12:44)
--- NOTE | 2021-09-05 15:00 | NUR ---
ARI attempted to contact juan david Lopez at [facility] to see what happened on Wednesday per the nephew's report. ARI left a message asking for a returned call RAYN.
[2021-09-05 16:22] VITALS: BP 135/62
[2021-09-05] MEDS: traZODone 50 MG TABLET. PO PRN (21:09)
[2021-09-05] MEDS: MIRTAZAPINE 15 MG TABLET PO SCH (21:10)
[2021-09-05] MEDS: ATORVASTATIN CALCIUM 10 MG TABLET. PO SCH (21:10)
[2021-09-05] MEDS: DULoxetine HCL 20 MG CAPSULE.DR PO SCH (21:10)
[2021-09-05] MEDS: DULoxetine HCL 30 MG CAPSULE.DR PO SCH (21:10)
[2021-09-05] MEDS: MELATONIN 3 MG TABLET PO SCH (21:10)
--- NOTE | 2021-09-05 21:58 | PDOC ---
Exam Note: Elo Note: Please also refer to the separate dictated note~for this date of service dictated separately.~Patient seen individually. Discussed the patient with Nursing staff reviewed the chart.~Reviewed interim history and current functioning. Reviewed vital signs,~Labs/ Radiology~and current medications noted below. Continue current treatment with the changes noted in the dictated addendum note Assessment: Vital Signs/I&O: Vital Signs Date Time Temp Pulse Resp B/P (MAP) Pulse Ox O2 Delivery O2 Flow Rate FiO2 09/05/21 17:49 73 135/62 09/05/21 16:22 98.6 20 93 09/04/21 16:52 Room Air I & O 09/04/21 09/04/21 09/05/21 15:00 23:00 07:00 Intake Total 840 ml 360 ml Balance 840 ml 360 ml Labs: Laboratory Tests Test 09/05/21 07:11 Glucose (Fingerstick) 120 mg/dL (70-99) H Current Medications: Meds: Laboratory Tests Test 09/05/21 07:11 Glucose (Fingerstick) 120 mg/dL Current Medications Medications (Trade) Dose Ordered Sig/Aparna Route PRN Reason Start Time Stop Time Status Last Admin Dose Admin Acetaminophen (Tylenol) 650 mg PRN Q6HRS PRN PO MILD PAIN / TEMP > 100.3'F 07/06/21 00:30 Cancel Multi-Ingredient Ointment (Analgesic [place]) 1 inna PRN QID PRN TP MUSCLE PAIN 07/06/21 00:30 08/01/21 20:19 Al Hydroxide/Mg Hydroxide (Mylanta Plus Xs) 15 ml PRN AFTMEALHC PRN PO DYSPEPSIA 07/06/21 00:30 08/15/21 00:24 Magnesium Hydroxide (Milk Of Magnesia) 2,400 mg PRN QHS PRN PO 2ND CHOICE CONSTIPATION 07/06/21 00:30 07/14/21 08:13 Duloxetine HCl (Cymbalta) 20 mg HS PO 07/06/21 21:00 09/05/21 21:10 Duloxetine HCl (Cymbalta) 30 mg HS PO 07/06/21 21:00 09/05/21 21:10 Mirtazapine (Remeron) 7.5 mg HS PO 07/06/21 21:00 07/29/21 18:15 DC 07/28/21 20:09 Olanzapine (ZyPREXA ZYDIS) 2.5 mg PRN Q2HR PRN PO ANXIETY / AGITATION 07/06/21 01:15 09/02/21 02:44 Trazodone HCl (Desyrel) 50 mg PRN QHS PRN PO INSOMNIA 07/06/21 01:15 09/05/21 21:09 Acetaminophen (Tylenol) 650 mg PRN Q4HRS PRN PO MILD PAIN 1-3 07/06/21 10:30 09/04/21 15:07 Aspirin (Aspirin Enteric Coated) 81 mg DAILY PO 07/07/21 09:00 09/05/21 08:48 Atorvastatin Calcium (Lipitor) 10 mg QHS PO 07/06/21 21:00 09/05/21 21:10 Carvedilol (Coreg) 3.125 mg BIDWMEALS PO 07/06/21 17:00 07/25/21 17:52 DC 07/25/21 17:22 Gabapentin (Neurontin) 300 mg BID PO 07/06/21 21:00 08/30/21 12:29 DC 08/30/21 08:20 Metformin HCl (Glucophage Xr) 500 mg DAILYWBKFT PO 07/07/21 08:00 09/05/21 08:48 Multi-Ingredient Ointment (Analgesic [place]) 1 inna PRN QID PRN TP PAIN 07/06/21 10:30 UNV Phenytoin Sodium (Dilantin) 500 mg HS PO 07/06/21 21:00 07/07/21 22:27 DC 07/07/21 20:05 Tamsulosin HCl (Flomax) 0.4 mg DAILY PO 07/07/21 09:00 09/05/21 08:49 Polyethylene Glycol (miraLAX) 17 gm PRN DAILY PRN PO 1ST CHOICE CONSTIPATION 07/06/21 10:45 08/13/21 20:07 Non-Formulary Medication (Pravastatin Sodium ) 40 mg DAILY PO 07/07/21 09:00 UNV Phenyleph/Shark Oil/Min Oil/Petrol (Preparation H) 1 inna PRN QID PRN RC RECTAL PAIN 07/06/21 15:15 Phenytoin Sodium (Dilantin) 400 mg HS PO 07/08/21 21:00 07/11/21 23:36 DC 07/11/21 20:35 Albuterol/ Ipratropium (Combivent Respimat 20-100 Mcg) 1 puff QID INH 07/08/21 13:00 09/05/21 21:09 Docusate Sodium (Colace) 100 mg DAILY PO 07/09/21 09:00 09/05/21 08:48 Guaifenesin (Mucinex Er) 600 mg BID PO 07/08/21 21:00 09/05/21 21:10 Magnesium Hydroxide (Milk Of Magnesia) 2,400 mg PRN QHS PRN PO 2nd CHOICE CONSTIPATION 07/08/21 19:30 Cancel Phenytoin Sodium (Dilantin) 200 mg HS PO 07/12/21 21:00 09/05/21 21:10 Phenytoin Sodium (Dilantin) 100 mg DAILY PO 07/12/21 09:00 09/05/21 08:48 Carvedilol (Coreg) 6.25 mg BIDWMEALS PO 07/25/21 18:00 07/25/21 18:07 DC Carvedilol (Coreg) 6.25 mg BIDWMEALS PO 07/26/21 08:00 08/02/21 09:02 DC 08/02/21 08:33 Mirtazapine (Remeron) 15 mg QHS PO 07/29/21 21:00 09/05/21 21:10 Carvedilol (Coreg) 12.5 mg BIDWMEALS PO 08/02/21 17:00 09/05/21 17:49 Albuterol Sulfate (Ventolin Hfa Inhaler) 2 puff PRN Q4HRS PRN INH SHORTNESS OF BREATH 08/02/21 09:15 09/05/21 12:44 Melatonin (Melatonin) 3 mg QHS PO 08/05/21 21:00 08/18/21 14:06 DC 08/17/21 20:06 Oxycodone/ Acetaminophen (Percocet 10/325) 1 tab PRN Q6HRS PRN PO MOD-SEV PAIN 08/15/21 00:15 08/15/21 00:23 Melatonin (Melatonin) 6 mg QHS PO 08/18/21 21:00 09/05/21 21:10 Influenza Virus Vaccine Quadrival (Flulaval Quad [id number] Syringe) 0.5 ml ONCE ONCE VAX IM 08/20/21 09:00 08/20/21 09:01 DC 08/20/21 11:35 Gabapentin (Neurontin) 100 mg 1X ONCE PO 08/30/21 14:00 08/30/21 14:01 Cancel Gabapentin (Neurontin) 200 mg 1X ONCE PO 08/30/21 21:00 08/30/21 21:01 Cancel Gabapentin (Neurontin) 300 mg BID PO 08/31/21 09:00 09/05/21 21:09 Gabapentin (Neurontin) 300 mg 1X ONCE PO 08/30/21 12:45 08/30/21 12:46 DC 08/30/21 12:42 I have reviewed the current psychotropics carefully including drug interactions. Risk benefit ratio favors no change other than as noted in my dictated progress note. 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
--- NOTE | 2021-09-06 04:24 | NUR ---
Per patient primary nurse, DEX Garvey, please see patients hard chart for shift progress note.
[2021-09-06] MEDS: ALBUTEROL SULFATE 8GM INHALER. INH PRN ×3 (06:32→21:58)
[2021-09-06 06:37] VITALS: BP 182/82
[2021-09-06] MEDS: ASPIRIN ENTERIC COATED 81 MG TABLET.DR. PO SCH (08:22)
[2021-09-06] MEDS: TAMSULOSIN 0.4 MG CAP.ER.24H. PO SCH (08:22)
[2021-09-06] MEDS: metFORMIN XR 500 MG TAB.ER.24H PO SCH (08:22)
[2021-09-06] MEDS: PHENYTOIN SODIUM EXTENDED 100 MG CAPSULE PO SCH ×2 (08:22→21:57)
[2021-09-06] MEDS: DOCUSATE SODIUM 100 MG CAPSULE PO SCH (08:22)
[2021-09-06] MEDS: CARVEDILOL 12.5 MG TABLET PO SCH ×2 (08:23→17:30)
[2021-09-06] MEDS: GABAPENTIN 300 MG CAPSULE. PO SCH ×2 (08:23→21:57)
[2021-09-06] MEDS: IPRATROPIUM/ALBUTEROL 20/100mcg/INH INHALER. INH SCH ×4 (08:24→21:58)
--- NOTE | 2021-09-06 09:31 | NUR ---
Nursing note: Pt in dining room at time of AM med pass and assessment. He is pleasant, med compliant and cooperative. PRN inhaler given with AM meds. Pt denies having any pain/concerns. He is currently resting quietly in bed. Will continue to monitor.
[2021-09-06 15:42] VITALS: BP_SYST 106; BP_SYST 145; BP_DIAS 64; BP_DIAS 80
[2021-09-06] MEDS: METHYL SALICYLATE/MENTHOL TOPICAL OINTMENT 57GM TUBE. TP PRN (17:39)
[2021-09-06] MEDS: ACETAMINOPHEN 325 MG TABLET PO PRN (17:39)
[2021-09-06] MEDS: MELATONIN 3 MG TABLET PO SCH (21:56)
[2021-09-06] MEDS: MIRTAZAPINE 15 MG TABLET PO SCH (21:56)
[2021-09-06] MEDS: DULoxetine HCL 20 MG CAPSULE.DR PO SCH (21:57)
[2021-09-06] MEDS: DULoxetine HCL 30 MG CAPSULE.DR PO SCH (21:57)
[2021-09-06] MEDS: ATORVASTATIN CALCIUM 10 MG TABLET. PO SCH (21:58)
[2021-09-06] MEDS: traZODone 50 MG TABLET. PO PRN (21:58)
--- NOTE | 2021-09-06 21:58 | PDOC ---
Exam Note: Leo Note: Please also refer to the separate dictated note~for this date of service dictated separately.~Patient seen individually. Discussed the patient with Nursing staff reviewed the chart.~Reviewed interim history and current functioning. Reviewed vital signs,~Labs/ Radiology~and current medications noted below. Continue current treatment with the changes noted in the dictated addendum note Assessment: Vital Signs/I&O: Vital Signs Date Time Temp Pulse Resp B/P (MAP) Pulse Ox O2 Delivery O2 Flow Rate FiO2 09/06/21 17:30 66 145/80 09/06/21 15:42 98.2 16 94 09/04/21 16:52 Room Air I & O 09/05/21 09/05/21 09/06/21 15:00 23:00 07:00 Intake Total 1260 ml 360 ml Balance 1260 ml 360 ml Labs: Laboratory Tests Test 09/06/21 07:15 Glucose (Fingerstick) 117 mg/dL (70-99) H Current Medications: Meds: Laboratory Tests Test 09/06/21 07:15 Glucose (Fingerstick) 117 mg/dL Current Medications Medications (Trade) Dose Ordered Sig/Aparna Route PRN Reason Start Time Stop Time Status Last Admin Dose Admin Acetaminophen (Tylenol) 650 mg PRN Q6HRS PRN PO MILD PAIN / TEMP > 100.3'F 07/06/21 00:30 Cancel Multi-Ingredient Ointment (Analgesic [place]) 1 inna PRN QID PRN TP MUSCLE PAIN 07/06/21 00:30 09/06/21 17:39 Al Hydroxide/Mg Hydroxide (Mylanta Plus Xs) 15 ml PRN AFTMEALHC PRN PO DYSPEPSIA 07/06/21 00:30 08/15/21 00:24 Magnesium Hydroxide (Milk Of Magnesia) 2,400 mg PRN QHS PRN PO 2ND CHOICE CONSTIPATION 07/06/21 00:30 07/14/21 08:13 Duloxetine HCl (Cymbalta) 20 mg HS PO 07/06/21 21:00 09/05/21 21:10 Duloxetine HCl (Cymbalta) 30 mg HS PO 07/06/21 21:00 09/05/21 21:10 Mirtazapine (Remeron) 7.5 mg HS PO 07/06/21 21:00 07/29/21 18:15 DC 07/28/21 20:09 Olanzapine (ZyPREXA ZYDIS) 2.5 mg PRN Q2HR PRN PO ANXIETY / AGITATION 07/06/21 01:15 09/02/21 02:44 Trazodone HCl (Desyrel) 50 mg PRN QHS PRN PO INSOMNIA 07/06/21 01:15 09/05/21 21:09 Acetaminophen (Tylenol) 650 mg PRN Q4HRS PRN PO MILD PAIN 1-3 07/06/21 10:30 09/06/21 17:39 Aspirin (Aspirin Enteric Coated) 81 mg DAILY PO 07/07/21 09:00 09/06/21 08:22 Atorvastatin Calcium (Lipitor) 10 mg QHS PO 07/06/21 21:00 09/05/21 21:10 Carvedilol (Coreg) 3.125 mg BIDWMEALS PO 07/06/21 17:00 07/25/21 17:52 DC 07/25/21 17:22 Gabapentin (Neurontin) 300 mg BID PO 07/06/21 21:00 08/30/21 12:29 DC 08/30/21 08:20 Metformin HCl (Glucophage Xr) 500 mg DAILYWBKFT PO 07/07/21 08:00 09/06/21 08:22 Multi-Ingredient Ointment (Analgesic [place]) 1 inna PRN QID PRN TP PAIN 07/06/21 10:30 UNV Phenytoin Sodium (Dilantin) 500 mg HS PO 07/06/21 21:00 07/07/21 22:27 DC 07/07/21 20:05 Tamsulosin HCl (Flomax) 0.4 mg DAILY PO 07/07/21 09:00 09/06/21 08:22 Polyethylene Glycol (miraLAX) 17 gm PRN DAILY PRN PO 1ST CHOICE CONSTIPATION 07/06/21 10:45 08/13/21 20:07 Non-Formulary Medication (Pravastatin Sodium ) 40 mg DAILY PO 07/07/21 09:00 UNV Phenyleph/Shark Oil/Min Oil/Petrol (Preparation H) 1 inna PRN QID PRN RC RECTAL PAIN 07/06/21 15:15 Phenytoin Sodium (Dilantin) 400 mg HS PO 07/08/21 21:00 07/11/21 23:36 DC 07/11/21 20:35 Albuterol/ Ipratropium (Combivent Respimat 20-100 Mcg) 1 puff QID INH 07/08/21 13:00 09/06/21 17:30 Docusate Sodium (Colace) 100 mg DAILY PO 07/09/21 09:00 09/06/21 08:22 Guaifenesin (Mucinex Er) 600 mg BID PO 07/08/21 21:00 09/06/21 08:23 Magnesium Hydroxide (Milk Of Magnesia) 2,400 mg PRN QHS PRN PO 2nd CHOICE CONSTIPATION 07/08/21 19:30 Cancel Phenytoin Sodium (Dilantin) 200 mg HS PO 07/12/21 21:00 09/05/21 21:10 Phenytoin Sodium (Dilantin) 100 mg DAILY PO 07/12/21 09:00 09/06/21 08:22 Carvedilol (Coreg) 6.25 mg BIDWMEALS PO 07/25/21 18:00 07/25/21 18:07 DC Carvedilol (Coreg) 6.25 mg BIDWMEALS PO 07/26/21 08:00 08/02/21 09:02 DC 08/02/21 08:33 Mirtazapine (Remeron) 15 mg QHS PO 07/29/21 21:00 09/05/21 21:10 Carvedilol (Coreg) 12.5 mg BIDWMEALS PO 08/02/21 17:00 09/06/21 17:30 Albuterol Sulfate (Ventolin Hfa Inhaler) 2 puff PRN Q4HRS PRN INH SHORTNESS OF BREATH 08/02/21 09:15 09/06/21 08:24 Melatonin (Melatonin) 3 mg QHS PO 08/05/21 21:00 08/18/21 14:06 DC 08/17/21 20:06 Oxycodone/ Acetaminophen (Percocet 10/325) 1 tab PRN Q6HRS PRN PO MOD-SEV PAIN 08/15/21 00:15 08/15/21 00:23 Melatonin (Melatonin) 6 mg QHS PO 08/18/21 21:00 09/05/21 21:10 Influenza Virus Vaccine Quadrival (Flulaval Quad [id number] Syringe) 0.5 ml ONCE ONCE VAX IM 08/20/21 09:00 08/20/21 09:01 DC 08/20/21 11:35 Gabapentin (Neurontin) 100 mg 1X ONCE PO 08/30/21 14:00 08/30/21 14:01 Cancel Gabapentin (Neurontin) 200 mg 1X ONCE PO 08/30/21 21:00 08/30/21 21:01 Cancel Gabapentin (Neurontin) 300 mg BID PO 08/31/21 09:00 09/06/21 08:23 Gabapentin (Neurontin) 300 mg 1X ONCE PO 08/30/21 12:45 08/30/21 12:46 DC 08/30/21 12:42 I have reviewed the current psychotropics carefully including drug interactions. Risk benefit ratio favors no change other than as noted in my dictated progress note. 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
--- NOTE | 2021-09-07 00:18 | NUR ---
Patient was sitting in the doorway of his room coughing and retching into a paper bag. PRN albuterol inhaler providedat 2200 per patient request and his report that "he is dying of pneumonia". PRN trazodone given at 2200 for insomnia as patient was still awake in his room. Patient had no other adverse behaviors at this time.
[2021-09-07 06:42] VITALS: BP 157/76
--- NOTE | 2021-09-07 08:32 | PDOC ---
Exam Note: Leo Note: This note is a late entry for 09/04/2021 covers elements not covered in my initial note. Subjective: The patient was seen individually in the evening of 09/04/2021 with Jeanne KOWALSKI, discussed and reviewed the chart. The patient slept 4-1/2 hours previous night. I met with him in his room in the evening. He has been irritable late at night. Otherwise unchanged. Review of Systems: Ambulation impaired in wheelchair. Shortness of breath. No CV, , eye, ENT system symptoms on review. Mental Status Exam: The patient is oriented to himself and situation. Insight and judgment, recent and remote memory, attention and concentration, fund of knowledge is poor consistent with his diagnoses. Laboratory Data: Reviewed. Impression: Major depressive disorder, in partial remission. Major neurocognitive disorder, Alzheimer, vascular with delusion, depression, behavioral disturbance. Anxiety disorder unspecified. Impulse control disorder unspecified. Plan: Continue current psychotropics from initial note. Assessment: Vital Signs/I&O: Vital Signs Date Time Temp Pulse Resp B/P (MAP) Pulse Ox O2 Delivery O2 Flow Rate FiO2 09/07/21 06:42 98.7 77 20 157/76 (103) 92 09/04/21 16:52 Room Air I & O 09/06/21 09/06/21 09/07/21 15:00 23:00 07:00 Intake Total 1140 ml 780 ml Balance 1140 ml 780 ml Labs: Laboratory Tests Test 09/07/21 07:47 Glucose (Fingerstick) 99 mg/dL (70-99) Current Medications: Meds: Laboratory Tests Test 09/07/21 07:47 Glucose (Fingerstick) 99 mg/dL Current Medications Medications (Trade) Dose Ordered Sig/Aparna Route PRN Reason Start Time Stop Time Status Last Admin Dose Admin Acetaminophen (Tylenol) 650 mg PRN Q6HRS PRN PO MILD PAIN / TEMP > 100.3'F 07/06/21 00:30 Cancel Multi-Ingredient Ointment (Analgesic [place]) 1 inna PRN QID PRN TP MUSCLE PAIN 07/06/21 00:30 09/06/21 17:39 Al Hydroxide/Mg Hydroxide (Mylanta Plus Xs) 15 ml PRN AFTMEALHC PRN PO DYSPEPSIA 07/06/21 00:30 08/15/21 00:24 Magnesium Hydroxide (Milk Of Magnesia) 2,400 mg PRN QHS PRN PO 2ND CHOICE CONSTIPATION 07/06/21 00:30 07/14/21 08:13 Duloxetine HCl (Cymbalta) 20 mg HS PO 07/06/21 21:00 09/06/21 21:57 Duloxetine HCl (Cymbalta) 30 mg HS PO 07/06/21 21:00 09/06/21 21:57 Mirtazapine (Remeron) 7.5 mg HS PO 07/06/21 21:00 07/29/21 18:15 DC 07/28/21 20:09 Olanzapine (ZyPREXA ZYDIS) 2.5 mg PRN Q2HR PRN PO ANXIETY / AGITATION 07/06/21 01:15 09/02/21 02:44 Trazodone HCl (Desyrel) 50 mg PRN QHS PRN PO INSOMNIA 07/06/21 01:15 09/06/21 21:58 Acetaminophen (Tylenol) 650 mg PRN Q4HRS PRN PO MILD PAIN 1-3 07/06/21 10:30 09/06/21 17:39 Aspirin (Aspirin Enteric Coated) 81 mg DAILY PO 07/07/21 09:00 09/06/21 08:22 Atorvastatin Calcium (Lipitor) 10 mg QHS PO 07/06/21 21:00 09/06/21 21:58 Carvedilol (Coreg) 3.125 mg BIDWMEALS PO 07/06/21 17:00 07/25/21 17:52 DC 07/25/21 17:22 Gabapentin (Neurontin) 300 mg BID PO 07/06/21 21:00 08/30/21 12:29 DC 08/30/21 08:20 Metformin HCl (Glucophage Xr) 500 mg DAILYWBKFT PO 07/07/21 08:00 09/06/21 08:22 Multi-Ingredient Ointment (Analgesic [place]) 1 inna PRN QID PRN TP PAIN 07/06/21 10:30 UNV Phenytoin Sodium (Dilantin) 500 mg HS PO 07/06/21 21:00 07/07/21 22:27 DC 07/07/21 20:05 Tamsulosin HCl (Flomax) 0.4 mg DAILY PO 07/07/21 09:00 09/06/21 08:22 Polyethylene Glycol (miraLAX) 17 gm PRN DAILY PRN PO 1ST CHOICE CONSTIPATION 07/06/21 10:45 08/13/21 20:07 Non-Formulary Medication (Pravastatin Sodium ) 40 mg DAILY PO 07/07/21 09:00 UNV Phenyleph/Shark Oil/Min Oil/Petrol (Preparation H) 1 inna PRN QID PRN RC RECTAL PAIN 07/06/21 15:15 Phenytoin Sodium (Dilantin) 400 mg HS PO 07/08/21 21:00 07/11/21 23:36 DC 07/11/21 20:35 Albuterol/ Ipratropium (Combivent Respimat 20-100 Mcg) 1 puff QID INH 07/08/21 13:00 09/06/21 21:58 Docusate Sodium (Colace) 100 mg DAILY PO 07/09/21 09:00 09/06/21 08:22 Guaifenesin (Mucinex Er) 600 mg BID PO 07/08/21 21:00 09/06/21 21:57 Magnesium Hydroxide (Milk Of Magnesia) 2,400 mg PRN QHS PRN PO 2nd CHOICE CONSTIPATION 07/08/21 19:30 Cancel Phenytoin Sodium (Dilantin) 200 mg HS PO 07/12/21 21:00 09/06/21 21:57 Phenytoin Sodium (Dilantin) 100 mg DAILY PO 07/12/21 09:00 09/06/21 08:22 Carvedilol (Coreg) 6.25 mg BIDWMEALS PO 07/25/21 18:00 07/25/21 18:07 DC Carvedilol (Coreg) 6.25 mg BIDWMEALS PO 07/26/21 08:00 08/02/21 09:02 DC 08/02/21 08:33 Mirtazapine (Remeron) 15 mg QHS PO 07/29/21 21:00 09/06/21 21:56 Carvedilol (Coreg) 12.5 mg BIDWMEALS PO 08/02/21 17:00 09/06/21 17:30 Albuterol Sulfate (Ventolin Hfa Inhaler) 2 puff PRN Q4HRS PRN INH SHORTNESS OF BREATH 08/02/21 09:15 09/06/21 21:58 Melatonin (Melatonin) 3 mg QHS PO 08/05/21 21:00 08/18/21 14:06 DC 08/17/21 20:06 Oxycodone/ Acetaminophen (Percocet 10) 1 tab PRN Q6HRS PRN PO MOD-SEV PAIN 08/15/21 00:15 08/15/21 00:23 Melatonin (Melatonin) 6 mg QHS PO 08/18/21 21:00 09/06/21 21:56 Influenza Virus Vaccine Quadrival (Flulaval Quad Syringe) 0.5 ml ONCE ONCE VAX IM 08/20/21 09:00 08/20/21 09:01 DC 08/20/21 11:35 Gabapentin (Neurontin) 100 mg 1X ONCE PO 08/30/21 14:00 08/30/21 14:01 Cancel Gabapentin (Neurontin) 200 mg 1X ONCE PO 08/30/21 21:00 08/30/21 21:01 Cancel Gabapentin (Neurontin) 300 mg BID PO 08/31/21 09:00 09/06/21 21:57 Gabapentin (Neurontin) 300 mg 1X ONCE PO 08/30/21 12:45 08/30/21 12:46 DC 08/30/21 12:42 I have reviewed the current psychotropics carefully including drug interactions. Risk benefit ratio favors no change other than as noted in my dictated progress note. Diagnosis: Problems: (1) Impulse control disorder, unspecified (2) Anxiety disorder, unspecified (3) Dementia, vascular, with depression (4) Dementia, vascular, with delusions (5) Major neurocognitive disorder (6) Dementia in Alzheimer's disease with depression (7) Dementia in Alzheimer's disease with delusions (8) Dementia of the Alzheimer's type with early onset with behavioral disturbance (9) Major depressive disorder in partial remission NIK LOYA MD Sep 07, 2021 08:32
[2021-09-07] MEDS: DOCUSATE SODIUM 100 MG CAPSULE PO SCH (08:50)
[2021-09-07] MEDS: metFORMIN XR 500 MG TAB.ER.24H PO SCH (08:50)
[2021-09-07] MEDS: IPRATROPIUM/ALBUTEROL 20/100mcg/INH INHALER. INH SCH ×4 (08:50→21:07)
[2021-09-07] MEDS: ASPIRIN ENTERIC COATED 81 MG TABLET.DR. PO SCH (08:51)
[2021-09-07] MEDS: CARVEDILOL 12.5 MG TABLET PO SCH ×2 (08:51→17:40)
[2021-09-07] MEDS: TAMSULOSIN 0.4 MG CAP.ER.24H. PO SCH (08:51)
[2021-09-07] MEDS: GABAPENTIN 300 MG CAPSULE. PO SCH ×2 (08:51→21:05)
[2021-09-07] MEDS: PHENYTOIN SODIUM EXTENDED 100 MG CAPSULE PO SCH ×2 (08:52→21:05)
--- NOTE | 2021-09-07 09:14 | PDOC ---
Exam Note: Leo Note: This note is a late entry for 09/05/2021 covers elements not covered in my initial note. Subjective: The patient was seen individually in the evening of 09/05/2021 with Shakira KOWALSKI, discussed and reviewed the chart. The patient slept 9-1/2 hours previous night. He was walking from his room to the dining room and back, somewhat withdrawn. Review of Systems: Ambulation impaired in wheelchair. No CV, , eye, ENT system symptoms on review. He complains of some difficulty in breathing at times. Mental Status Exam: The patient is oriented to himself and situation. I met with him in his room. Insight and judgment, recent and remote memory, attention and concentration, fund of knowledge is poor consistent with his diagnoses. Laboratory Data: Reviewed. Impression: Major depressive disorder, in partial remission. Major neurocognitive disorder, Alzheimer, vascular with delusion, depression, behavioral disturbance. Anxiety disorder unspecified. Impulse control disorder unspecified. Plan: Continue current psychotropics from initial note. Assessment: Vital Signs/I&O: Vital Signs Date Time Temp Pulse Resp B/P (MAP) Pulse Ox O2 Delivery O2 Flow Rate FiO2 09/07/21 08:51 77 157/76 09/07/21 06:42 98.7 20 92 09/04/21 16:52 Room Air I & O 09/06/21 09/06/21 09/07/21 15:00 23:00 07:00 Intake Total 1140 ml 780 ml Balance 1140 ml 780 ml Labs: Laboratory Tests Test 09/07/21 07:47 Glucose (Fingerstick) 99 mg/dL (70-99) Current Medications: Meds: Laboratory Tests Test 09/07/21 07:47 Glucose (Fingerstick) 99 mg/dL Current Medications Medications (Trade) Dose Ordered Sig/Aparna Route PRN Reason Start Time Stop Time Status Last Admin Dose Admin Acetaminophen (Tylenol) 650 mg PRN Q6HRS PRN PO MILD PAIN / TEMP > 100.3'F 07/06/21 00:30 Cancel Multi-Ingredient Ointment (Analgesic [place]) 1 inna PRN QID PRN TP MUSCLE PAIN 07/06/21 00:30 09/06/21 17:39 Al Hydroxide/Mg Hydroxide (Mylanta Plus Xs) 15 ml PRN AFTMEALHC PRN PO DYSPEPSIA 07/06/21 00:30 08/15/21 00:24 Magnesium Hydroxide (Milk Of Magnesia) 2,400 mg PRN QHS PRN PO 2ND CHOICE CONSTIPATION 07/06/21 00:30 07/14/21 08:13 Duloxetine HCl (Cymbalta) 20 mg HS PO 07/06/21 21:00 09/06/21 21:57 Duloxetine HCl (Cymbalta) 30 mg HS PO 07/06/21 21:00 09/06/21 21:57 Mirtazapine (Remeron) 7.5 mg HS PO 07/06/21 21:00 07/29/21 18:15 DC 07/28/21 20:09 Olanzapine (ZyPREXA ZYDIS) 2.5 mg PRN Q2HR PRN PO ANXIETY / AGITATION 07/06/21 01:15 09/02/21 02:44 Trazodone HCl (Desyrel) 50 mg PRN QHS PRN PO INSOMNIA 07/06/21 01:15 09/06/21 21:58 Acetaminophen (Tylenol) 650 mg PRN Q4HRS PRN PO MILD PAIN 1-3 07/06/21 10:30 09/06/21 17:39 Aspirin (Aspirin Enteric Coated) 81 mg DAILY PO 07/07/21 09:00 09/07/21 08:51 Atorvastatin Calcium (Lipitor) 10 mg QHS PO 07/06/21 21:00 09/06/21 21:58 Carvedilol (Coreg) 3.125 mg BIDWMEALS PO 07/06/21 17:00 07/25/21 17:52 DC 07/25/21 17:22 Gabapentin (Neurontin) 300 mg BID PO 07/06/21 21:00 08/30/21 12:29 DC 08/30/21 08:20 Metformin HCl (Glucophage Xr) 500 mg DAILYWBKFT PO 07/07/21 08:00 09/07/21 08:50 Multi-Ingredient Ointment (Analgesic [place]) 1 inna PRN QID PRN TP PAIN 07/06/21 10:30 UNV Phenytoin Sodium (Dilantin) 500 mg HS PO 07/06/21 21:00 07/07/21 22:27 DC 07/07/21 20:05 Tamsulosin HCl (Flomax) 0.4 mg DAILY PO 07/07/21 09:00 09/07/21 08:51 Polyethylene Glycol (miraLAX) 17 gm PRN DAILY PRN PO 1ST CHOICE CONSTIPATION 07/06/21 10:45 08/13/21 20:07 Non-Formulary Medication (Pravastatin Sodium ) 40 mg DAILY PO 07/07/21 09:00 UNV Phenyleph/Shark Oil/Min Oil/Petrol (Preparation H) 1 inna PRN QID PRN RC RECTAL PAIN 07/06/21 15:15 Phenytoin Sodium (Dilantin) 400 mg HS PO 07/08/21 21:00 07/11/21 23:36 DC 07/11/21 20:35 Albuterol/ Ipratropium (Combivent Respimat 20-100 Mcg) 1 puff QID INH 07/08/21 13:00 09/07/21 08:50 Docusate Sodium (Colace) 100 mg DAILY PO 07/09/21 09:00 09/07/21 08:50 Guaifenesin (Mucinex Er) 600 mg BID PO 07/08/21 21:00 09/07/21 08:52 Magnesium Hydroxide (Milk Of Magnesia) 2,400 mg PRN QHS PRN PO 2nd CHOICE CONSTIPATION 07/08/21 19:30 Cancel Phenytoin Sodium (Dilantin) 200 mg HS PO 07/12/21 21:00 09/06/21 21:57 Phenytoin Sodium (Dilantin) 100 mg DAILY PO 07/12/21 09:00 09/07/21 08:52 Carvedilol (Coreg) 6.25 mg BIDWMEALS PO 07/25/21 18:00 07/25/21 18:07 DC Carvedilol (Coreg) 6.25 mg BIDWMEALS PO 07/26/21 08:00 08/02/21 09:02 DC 08/02/21 08:33 Mirtazapine (Remeron) 15 mg QHS PO 07/29/21 21:00 09/06/21 21:56 Carvedilol (Coreg) 12.5 mg BIDWMEALS PO 08/02/21 17:00 09/07/21 08:51 Albuterol Sulfate (Ventolin Hfa Inhaler) 2 puff PRN Q4HRS PRN INH SHORTNESS OF BREATH 9/4/21 09:15 09/06/21 21:58 Melatonin (Melatonin) 3 mg QHS PO 08/05/21 21:00 08/18/21 14:06 DC 08/17/21 20:06 Oxycodone/ Acetaminophen (Percocet 10) 1 tab PRN Q6HRS PRN PO MOD-SEV PAIN 08/15/21 00:15 08/15/21 00:23 Melatonin (Melatonin) 6 mg QHS PO 08/18/21 21:00 09/06/21 21:56 Influenza Virus Vaccine Quadrival (Flulaval Quad Syringe) 0.5 ml ONCE ONCE VAX IM 08/20/21 09:00 08/20/21 09:01 DC 08/20/21 11:35 Gabapentin (Neurontin) 100 mg 1X ONCE PO 08/30/21 14:00 08/30/21 14:01 Cancel Gabapentin (Neurontin) 200 mg 1X ONCE PO 08/30/21 21:00 08/30/21 21:01 Cancel Gabapentin (Neurontin) 300 mg BID PO 08/31/21 09:00 09/07/21 08:51 Gabapentin (Neurontin) 300 mg 1X ONCE PO 08/30/21 12:45 08/30/21 12:46 DC 08/30/21 12:42 I have reviewed the current psychotropics carefully including drug interactions. Risk benefit ratio favors no change other than as noted in my dictated progress note. Diagnosis: Problems: (1) Impulse control disorder, unspecified (2) Anxiety disorder, unspecified (3) Dementia, vascular, with depression (4) Dementia, vascular, with delusions (5) Major neurocognitive disorder (6) Dementia in Alzheimer's disease with depression (7) Dementia in Alzheimer's disease with delusions (8) Dementia of the Alzheimer's type with early onset with behavioral disturbance (9) Major depressive disorder in partial remission NIK LOYA MD Sep 07, 2021 09:14
--- NOTE | 2021-09-07 10:54 | NUR ---
RN Day Shift Note: pt presents with pleasant mood/affect. pt was medication compliant. pt is approachable and engages with staff. pt continues to have a good appetite. pt knows name and . pt knows he is in hospital in [place]. pt slept 4 hours last night. pt enjoys yodling and is noted to spend time in the day room with peers. pt is able to make needs known to staff. pt follows rules and routines on the unit. will continue to monitor.
[2021-09-07 15:56] VITALS: BP 146/72
[2021-09-07] MEDS: DULoxetine HCL 20 MG CAPSULE.DR PO SCH (21:05)
[2021-09-07] MEDS: MELATONIN 3 MG TABLET PO SCH (21:05)
[2021-09-07] MEDS: ATORVASTATIN CALCIUM 10 MG TABLET. PO SCH (21:05)
[2021-09-07] MEDS: MIRTAZAPINE 15 MG TABLET PO SCH (21:05)
[2021-09-07] MEDS: DULoxetine HCL 30 MG CAPSULE.DR PO SCH (21:05)
[2021-09-07] MEDS: traZODone 50 MG TABLET. PO PRN (21:06)
--- NOTE | 2021-09-07 22:05 | PDOC ---
Exam Note: Leo Note: Please also refer to the separate dictated note~for this date of service dictated separately.~Patient seen individually. Discussed the patient with Nursing staff reviewed the chart.~Reviewed interim history and current functioning. Reviewed vital signs,~Labs/ Radiology~and current medications noted below. Continue current treatment with the changes noted in the dictated addendum note Assessment: Vital Signs/I&O: Vital Signs Date Time Temp Pulse Resp B/P (MAP) Pulse Ox O2 Delivery O2 Flow Rate FiO2 09/07/21 17:40 77 146/72 09/07/21 15:56 98.2 20 94 09/04/21 16:52 Room Air I & O 09/06/21 09/06/21 09/07/21 15:00 23:00 07:00 Intake Total 1140 ml 780 ml Balance 1140 ml 780 ml Labs: Laboratory Tests Test 09/07/21 07:47 Glucose (Fingerstick) 99 mg/dL (70-99) Current Medications: Meds: Laboratory Tests Test 09/07/21 07:47 Glucose (Fingerstick) 99 mg/dL Current Medications Medications (Trade) Dose Ordered Sig/Aparna Route PRN Reason Start Time Stop Time Status Last Admin Dose Admin Acetaminophen (Tylenol) 650 mg PRN Q6HRS PRN PO MILD PAIN / TEMP > 100.3'F 07/06/21 00:30 Cancel Multi-Ingredient Ointment (Analgesic [place]) 1 inna PRN QID PRN TP MUSCLE PAIN 07/06/21 00:30 09/06/21 17:39 Al Hydroxide/Mg Hydroxide (Mylanta Plus Xs) 15 ml PRN AFTMEALHC PRN PO DYSPEPSIA 07/06/21 00:30 08/15/21 00:24 Magnesium Hydroxide (Milk Of Magnesia) 2,400 mg PRN QHS PRN PO 2ND CHOICE CONSTIPATION 07/06/21 00:30 07/14/21 08:13 Duloxetine HCl (Cymbalta) 20 mg HS PO 07/06/21 21:00 09/07/21 21:05 Duloxetine HCl (Cymbalta) 30 mg HS PO 07/06/21 21:00 09/07/21 21:05 Mirtazapine (Remeron) 7.5 mg HS PO 07/06/21 21:00 07/29/21 18:15 DC 07/28/21 20:09 Olanzapine (ZyPREXA ZYDIS) 2.5 mg PRN Q2HR PRN PO ANXIETY / AGITATION 07/06/21 01:15 09/02/21 02:44 Trazodone HCl (Desyrel) 50 mg PRN QHS PRN PO INSOMNIA 07/06/21 01:15 09/07/21 21:06 Acetaminophen (Tylenol) 650 mg PRN Q4HRS PRN PO MILD PAIN 1-3 07/06/21 10:30 09/06/21 17:39 Aspirin (Aspirin Enteric Coated) 81 mg DAILY PO 07/07/21 09:00 09/07/21 08:51 Atorvastatin Calcium (Lipitor) 10 mg QHS PO 07/06/21 21:00 09/07/21 21:05 Carvedilol (Coreg) 3.125 mg BIDWMEALS PO 07/06/21 17:00 07/25/21 17:52 DC 07/25/21 17:22 Gabapentin (Neurontin) 300 mg BID PO 07/06/21 21:00 08/30/21 12:29 DC 08/30/21 08:20 Metformin HCl (Glucophage Xr) 500 mg DAILYWBKFT PO 07/07/21 08:00 09/07/21 08:50 Multi-Ingredient Ointment (Analgesic [place]) 1 inna PRN QID PRN TP PAIN 07/06/21 10:30 UNV Phenytoin Sodium (Dilantin) 500 mg HS PO 07/06/21 21:00 07/07/21 22:27 DC 07/07/21 20:05 Tamsulosin HCl (Flomax) 0.4 mg DAILY PO 07/07/21 09:00 09/07/21 08:51 Polyethylene Glycol (miraLAX) 17 gm PRN DAILY PRN PO 1ST CHOICE CONSTIPATION 07/06/21 10:45 08/13/21 20:07 Non-Formulary Medication (Pravastatin Sodium ) 40 mg DAILY PO 07/07/21 09:00 UNV Phenyleph/Shark Oil/Min Oil/Petrol (Preparation H) 1 inna PRN QID PRN RC RECTAL PAIN 07/06/21 15:15 Phenytoin Sodium (Dilantin) 400 mg HS PO 07/08/21 21:00 07/11/21 23:36 DC 07/11/21 20:35 Albuterol/ Ipratropium (Combivent Respimat 20-100 Mcg) 1 puff QID INH 07/08/21 13:00 09/07/21 21:07 Docusate Sodium (Colace) 100 mg DAILY PO 07/09/21 09:00 09/07/21 08:50 Guaifenesin (Mucinex Er) 600 mg BID PO 07/08/21 21:00 09/07/21 21:05 Magnesium Hydroxide (Milk Of Magnesia) 2,400 mg PRN QHS PRN PO 2nd CHOICE CONSTIPATION 07/08/21 19:30 Cancel Phenytoin Sodium (Dilantin) 200 mg HS PO 07/12/21 21:00 09/07/21 21:05 Phenytoin Sodium (Dilantin) 100 mg DAILY PO 07/12/21 09:00 09/07/21 08:52 Carvedilol (Coreg) 6.25 mg BIDWMEALS PO 07/25/21 18:00 07/25/21 18:07 DC Carvedilol (Coreg) 6.25 mg BIDWMEALS PO 07/26/21 08:00 08/02/21 09:02 DC 08/02/21 08:33 Mirtazapine (Remeron) 15 mg QHS PO 07/29/21 21:00 09/07/21 21:05 Carvedilol (Coreg) 12.5 mg BIDWMEALS PO 08/02/21 17:00 09/07/21 17:40 Albuterol Sulfate (Ventolin Hfa Inhaler) 2 puff PRN Q4HRS PRN INH SHORTNESS OF BREATH 08/02/21 09:15 09/06/21 21:58 Melatonin (Melatonin) 3 mg QHS PO 08/05/21 21:00 08/18/21 14:06 DC 08/17/21 20:06 Oxycodone/ Acetaminophen (Percocet 10) 1 tab PRN Q6HRS PRN PO MOD-SEV PAIN 08/15/21 00:15 08/15/21 00:23 Melatonin (Melatonin) 6 mg QHS PO 08/18/21 21:00 09/07/21 21:05 Influenza Virus Vaccine Quadrival (Flulaval Quad Syringe) 0.5 ml ONCE ONCE VAX IM 08/20/21 09:00 08/20/21 09:01 DC 08/20/21 11:35 Gabapentin (Neurontin) 100 mg 1X ONCE PO 08/30/21 14:00 08/30/21 14:01 Cancel Gabapentin (Neurontin) 200 mg 1X ONCE PO 08/30/21 21:00 08/30/21 21:01 Cancel Gabapentin (Neurontin) 300 mg BID PO 08/31/21 09:00 09/07/21 21:05 Gabapentin (Neurontin) 300 mg 1X ONCE PO 08/30/21 12:45 08/30/21 12:46 DC 08/30/21 12:42 I have reviewed the current psychotropics carefully including drug interactions. Risk benefit ratio favors no change other than as noted in my dictated progress note. 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
--- NOTE | 2021-09-07 23:59 | NUR ---
Pt asleep in bed all evening. Irritable when woken up to administer HS medications, but compliant. Pt stated that he is "getting the hell out of here."
[2021-09-08] MEDS: ALBUTEROL SULFATE 8GM INHALER. INH PRN ×2 (04:01→08:17)
[2021-09-08 05:37] VITALS: BP 165/88
--- NOTE | 2021-09-08 07:08 | PDOC ---
Exam Note: Leo Note: This note is a late entry for 09/06/2021 covers elements not covered in my initial note. Subjective: The patient was seen individually in the evening of 09/06/2021 with Gogo KOWALSKI, discussed and reviewed the chart. The patient slept 5-3/4 hours previous night. I met with him in his room. Review of Systems: Ambulation impaired in wheelchair. No CV, , eye, ENT system symptoms on review. Mental Status Exam: The patient is oriented to himself and situation. Patient is rightly questioning whether he could be discharged. We discussed about his nephew coordinating with social service staff on placement options and he seemed to understand this. Insight and judgment, recent and remote memory, attention and concentration, fund of knowledge is poor consistent with his diagnoses. Laboratory Data: Reviewed. Impression: Major depressive disorder, in partial remission. Major neurocognitive disorder, Alzheimer, vascular with delusion, depression, behavioral disturbance. Anxiety disorder unspecified. Impulse control disorder unspecified. Plan: Continue current psychotropics from initial note. Assessment: Vital Signs/I&O: Vital Signs Date Time Temp Pulse Resp B/P (MAP) Pulse Ox O2 Delivery O2 Flow Rate FiO2 09/08/21 05:37 97.8 83 22 165/88 (113) 92 09/04/21 16:52 Room Air I & O 09/07/21 09/07/21 09/08/21 15:00 23:00 07:00 Intake Total 1080 ml 600 ml Balance 1080 ml 600 ml Labs: Laboratory Tests Test 09/07/21 07:47 Glucose (Fingerstick) 99 mg/dL (70-99) Current Medications: Meds: Laboratory Tests Test 09/07/21 07:47 Glucose (Fingerstick) 99 mg/dL Current Medications Medications (Trade) Dose Ordered Sig/Aparna Route PRN Reason Start Time Stop Time Status Last Admin Dose Admin Acetaminophen (Tylenol) 650 mg PRN Q6HRS PRN PO MILD PAIN / TEMP > 100.3'F 07/06/21 00:30 Cancel Multi-Ingredient Ointment (Analgesic [place]) 1 inna PRN QID PRN TP MUSCLE PAIN 07/06/21 00:30 09/06/21 17:39 Al Hydroxide/Mg Hydroxide (Mylanta Plus Xs) 15 ml PRN AFTMEALHC PRN PO DYSPEPSIA 07/06/21 00:30 08/15/21 00:24 Magnesium Hydroxide (Milk Of Magnesia) 2,400 mg PRN QHS PRN PO 2ND CHOICE CONSTIPATION 07/06/21 00:30 07/14/21 08:13 Duloxetine HCl (Cymbalta) 20 mg HS PO 07/06/21 21:00 09/07/21 21:05 Duloxetine HCl (Cymbalta) 30 mg HS PO 07/06/21 21:00 09/07/21 21:05 Mirtazapine (Remeron) 7.5 mg HS PO 07/06/21 21:00 07/29/21 18:15 DC 07/28/21 20:09 Olanzapine (ZyPREXA ZYDIS) 2.5 mg PRN Q2HR PRN PO ANXIETY / AGITATION 07/06/21 01:15 09/02/21 02:44 Trazodone HCl (Desyrel) 50 mg PRN QHS PRN PO INSOMNIA 07/06/21 01:15 09/07/21 21:06 Acetaminophen (Tylenol) 650 mg PRN Q4HRS PRN PO MILD PAIN 1-3 07/06/21 10:30 09/06/21 17:39 Aspirin (Aspirin Enteric Coated) 81 mg DAILY PO 07/07/21 09:00 09/07/21 08:51 Atorvastatin Calcium (Lipitor) 10 mg QHS PO 07/06/21 21:00 09/07/21 21:05 Carvedilol (Coreg) 3.125 mg BIDWMEALS PO 07/06/21 17:00 07/25/21 17:52 DC 07/25/21 17:22 Gabapentin (Neurontin) 300 mg BID PO 07/06/21 21:00 08/30/21 12:29 DC 08/30/21 08:20 Metformin HCl (Glucophage Xr) 500 mg DAILYWBKFT PO 07/07/21 08:00 09/07/21 08:50 Multi-Ingredient Ointment (Analgesic [place]) 1 inna PRN QID PRN TP PAIN 07/06/21 10:30 UNV Phenytoin Sodium (Dilantin) 500 mg HS PO 07/06/21 21:00 07/07/21 22:27 DC 07/07/21 20:05 Tamsulosin HCl (Flomax) 0.4 mg DAILY PO 07/07/21 09:00 09/07/21 08:51 Polyethylene Glycol (miraLAX) 17 gm PRN DAILY PRN PO 1ST CHOICE CONSTIPATION 07/06/21 10:45 08/13/21 20:07 Non-Formulary Medication (Pravastatin Sodium ) 40 mg DAILY PO 07/07/21 09:00 UNV Phenyleph/Shark Oil/Min Oil/Petrol (Preparation H) 1 inna PRN QID PRN RC RECTAL PAIN 07/06/21 15:15 Phenytoin Sodium (Dilantin) 400 mg HS PO 07/08/21 21:00 07/11/21 23:36 DC 07/11/21 20:35 Albuterol/ Ipratropium (Combivent Respimat 20-100 Mcg) 1 puff QID INH 07/08/21 13:00 09/07/21 21:07 Docusate Sodium (Colace) 100 mg DAILY PO 07/09/21 09:00 09/07/21 08:50 Guaifenesin (Mucinex Er) 600 mg BID PO 07/08/21 21:00 09/07/21 21:05 Magnesium Hydroxide (Milk Of Magnesia) 2,400 mg PRN QHS PRN PO 2nd CHOICE CONSTIPATION 07/08/21 19:30 Cancel Phenytoin Sodium (Dilantin) 200 mg HS PO 07/12/21 21:00 09/07/21 21:05 Phenytoin Sodium (Dilantin) 100 mg DAILY PO 07/12/21 09:00 09/07/21 08:52 Carvedilol (Coreg) 6.25 mg BIDWMEALS PO 07/25/21 18:00 07/25/21 18:07 DC Carvedilol (Coreg) 6.25 mg BIDWMEALS PO 07/26/21 08:00 08/02/21 09:02 DC 08/02/21 08:33 Mirtazapine (Remeron) 15 mg QHS PO 07/29/21 21:00 09/07/21 21:05 Carvedilol (Coreg) 12.5 mg BIDWMEALS PO 08/02/21 17:00 09/07/21 17:40 Albuterol Sulfate (Ventolin Hfa Inhaler) 2 puff PRN Q4HRS PRN INH SHORTNESS OF BREATH 08/02/21 09:15 09/08/21 04:01 Melatonin (Melatonin) 3 mg QHS PO 08/05/21 21:00 08/18/21 14:06 DC 08/17/21 20:06 Oxycodone/ Acetaminophen (Percocet 10) 1 tab PRN Q6HRS PRN PO MOD-SEV PAIN 08/15/21 00:15 08/15/21 00:23 Melatonin (Melatonin) 6 mg QHS PO 08/18/21 21:00 09/07/21 21:05 Influenza Virus Vaccine Quadrival (Flulaval Quad Syringe) 0.5 ml ONCE ONCE VAX IM 08/20/21 09:00 08/20/21 09:01 DC 08/20/21 11:35 Gabapentin (Neurontin) 100 mg 1X ONCE PO 08/30/21 14:00 08/30/21 14:01 Cancel Gabapentin (Neurontin) 200 mg 1X ONCE PO 08/30/21 21:00 08/30/21 21:01 Cancel Gabapentin (Neurontin) 300 mg BID PO 08/31/21 09:00 09/07/21 21:05 Gabapentin (Neurontin) 300 mg 1X ONCE PO 08/30/21 12:45 08/30/21 12:46 DC 08/30/21 12:42 I have reviewed the current psychotropics carefully including drug interactions. Risk benefit ratio favors no change other than as noted in my dictated progress note. Diagnosis: Problems: (1) Impulse control disorder, unspecified (2) Anxiety disorder, unspecified (3) Dementia, vascular, with depression (4) Dementia, vascular, with delusions (5) Major neurocognitive disorder (6) Dementia in Alzheimer's disease with depression (7) Dementia in Alzheimer's disease with delusions (8) Dementia of the Alzheimer's type with early onset with behavioral disturbance (9) Major depressive disorder in partial remission NIK LOYA MD Sep 08, 2021 07:08
[2021-09-08 07:20] LABS: BASO % 1 % (0-3); EOS # 0.7 x10^3/uL (0.0-0.7); EOS % 12 % (0-3); HEMATOCRIT 34.2 % (39.0-53.0); HEMOGLOBIN 11.3 g/dL (13.0-17.5); LYMPH # 1.8 x10^3/uL (1.0-4.8); LYMPH % 29 % (24-48); MEAN CORPUSCULAR HEMOGLOBIN 34 pg (25-35); MEAN CORPUSCULAR HGB CONC 33 g/dL (31-37); MEAN CORPUSCULAR VOLUME 103 fL (79-100); MONO # 0.7 x10^3/uL (0.0-1.1); MONO % 11 % (0-9); NEUT % 48 % (31-73); PLATELET COUNT 95 x10^3/uL (140-400); RED BLOOD COUNT 3.32 x10^6/uL (4.30-5.70); RED CELL DISTRIBUTION WIDTH 13.7 % (11.5-14.5); WHITE BLOOD COUNT 6.3 x10^3/uL (4.0-11.0)
[2021-09-08 07:26] LABS: ALBUMIN/GLOBULIN RATIO 0.9 (1.0-1.7); CALCIUM 8.8 mg/dL (8.5-10.1); CREATININE 1.3 mg/dL (0.7-1.3); GFR 53.3; POTASSIUM 4.9 mmol/L (3.5-5.1); TOTAL BILIRUBIN 0.3 mg/dL (0.2-1.0); TOTAL PROTEIN 6.5 g/dL (6.4-8.2)
--- NOTE | 2021-09-08 07:31 | PDOC ---
Exam Note: Leo Note: This note is a late entry for 09/07/2021 covers elements not covered in my initial note. Subjective: The patient was seen individually in the evening of 09/07/2021 with [place] KOWALSKI, discussed and reviewed the chart. The patient slept 4 hours previous night. Review of Systems: Ambulation impaired in wheelchair. No CV, , eye, ENT system symptoms on review. Mental Status Exam: The patient is oriented to himself and situation. He was once again talking about his nephew to help coordinate his disposition. He states his nephew works on computers and gets very busy and seemed to show some understanding into the delay consequent to this. Nevertheless he thinks he has to go home because people are taking his car without his permission. I addressed this with him. Insight and judgment, recent and remote memory, attention and concentration, fund of knowledge is poor consistent with his diagnoses. Laboratory Data: Reviewed. Impression: Major depressive disorder, in partial remission. Major neurocognitive disorder, Alzheimer, vascular with delusion, depression, behavioral disturbance. Anxiety disorder unspecified. Impulse control disorder unspecified. Plan: Continue current psychotropics from initial note. Assessment: Vital Signs/I&O: Vital Signs Date Time Temp Pulse Resp B/P (MAP) Pulse Ox O2 Delivery O2 Flow Rate FiO2 09/08/21 05:37 97.8 83 22 165/88 (113) 92 09/04/21 16:52 Room Air I & O 09/07/21 09/07/21 09/08/21 15:00 23:00 07:00 Intake Total 1080 ml 600 ml Balance 1080 ml 600 ml Labs: Laboratory Tests Test 09/07/21 07:47 09/08/21 06:58 Glucose (Fingerstick) 99 mg/dL (70-99) White Blood Count 6.3 x10^3/uL (4.0-11.0) Red Blood Count 3.32 x10^6/uL (4.30-5.70) L Hemoglobin 11.3 g/dL (13.0-17.5) L Hematocrit 34.2 % (39.0-53.0) L Mean Corpuscular Volume 103 fL (79-100) H Mean Corpuscular Hemoglobin 34 pg (25-35) Mean Corpuscular Hemoglobin Concent 33 g/dL (31-37) Red Cell Distribution Width 13.7 % (11.5-14.5) Platelet Count 95 x10^3/uL (140-400) L Neutrophils (%) (Auto) 48 % (31-73) Lymphocytes (%) (Auto) 29 % (24-48) Monocytes (%) (Auto) 11 % (0-9) H Eosinophils (%) (Auto) 12 % (0-3) H Basophils (%) (Auto) 1 % (0-3) Neutrophils # (Auto) 3.0 x10^3uL (1.8-7.7) Lymphocytes # (Auto) 1.8 x10^3/uL (1.0-4.8) Monocytes # (Auto) 0.7 x10^3/uL (0.0-1.1) Eosinophils # (Auto) 0.7 x10^3/uL (0.0-0.7) Basophils # (Auto) 0.0 x10^3/uL (0.0-0.2) Sodium Level 142 mmol/L (136-145) Potassium Level 4.9 mmol/L (3.5-5.1) Chloride Level 107 mmol/L (98-107) Carbon Dioxide Level 31 mmol/L (21-32) Anion Gap 4 (6-14) L Blood Urea Nitrogen 55 mg/dL (8-26) H Creatinine 1.3 mg/dL (0.7-1.3) Estimated GFR (Cockcroft-Gault) 53.3 BUN/Creatinine Ratio 42 (6-20) H Glucose Level 123 mg/dL (70-99) H Calcium Level 8.8 mg/dL (8.5-10.1) Total Bilirubin 0.3 mg/dL (0.2-1.0) Aspartate Amino Transferase (AST) 15 U/L (15-37) Alanine Aminotransferase (ALT) 20 U/L (16-63) Alkaline Phosphatase 108 U/L (46-116) Total Protein 6.5 g/dL (6.4-8.2) Albumin 3.0 g/dL (3.4-5.0) L Albumin/Globulin Ratio 0.9 (1.0-1.7) L Current Medications: Meds: Laboratory Tests Test 09/07/21 07:47 09/08/21 06:58 Glucose (Fingerstick) 99 mg/dL White Blood Count 6.3 x10^3/uL Red Blood Count 3.32 x10^6/uL Hemoglobin 11.3 g/dL Hematocrit 34.2 % Mean Corpuscular Volume 103 fL Mean Corpuscular Hemoglobin 34 pg Mean Corpuscular Hemoglobin Concent 33 g/dL Red Cell Distribution Width 13.7 % Platelet Count 95 x10^3/uL Neutrophils (%) (Auto) 48 % Lymphocytes (%) (Auto) 29 % Monocytes (%) (Auto) 11 % Eosinophils (%) (Auto) 12 % Basophils (%) (Auto) 1 % Neutrophils # (Auto) 3.0 x10^3uL Lymphocytes # (Auto) 1.8 x10^3/uL Monocytes # (Auto) 0.7 x10^3/uL Eosinophils # (Auto) 0.7 x10^3/uL Basophils # (Auto) 0.0 x10^3/uL Sodium Level 142 mmol/L Potassium Level 4.9 mmol/L Chloride Level 107 mmol/L Carbon Dioxide Level 31 mmol/L Anion Gap 4 Blood Urea Nitrogen 55 mg/dL Creatinine 1.3 mg/dL Estimated GFR (Cockcroft-Gault) 53.3 BUN/Creatinine Ratio 42 Glucose Level 123 mg/dL Calcium Level 8.8 mg/dL Total Bilirubin 0.3 mg/dL Aspartate Amino Transf (AST/SGOT) 15 U/L Alanine Aminotransferase (ALT/SGPT) 20 U/L Alkaline Phosphatase 108 U/L Total Protein 6.5 g/dL Albumin 3.0 g/dL Albumin/Globulin Ratio 0.9 Current Medications Medications (Trade) Dose Ordered Sig/Aparna Route PRN Reason Start Time Stop Time Status Last Admin Dose Admin Acetaminophen (Tylenol) 650 mg PRN Q6HRS PRN PO MILD PAIN / TEMP > 100.3'F 07/06/21 00:30 Cancel Multi-Ingredient Ointment (Analgesic [place]) 1 inna PRN QID PRN TP MUSCLE PAIN 07/06/21 00:30 09/06/21 17:39 Al Hydroxide/Mg Hydroxide (Mylanta Plus Xs) 15 ml PRN AFTMEALHC PRN PO DYSPEPSIA 07/06/21 00:30 08/15/21 00:24 Magnesium Hydroxide (Milk Of Magnesia) 2,400 mg PRN QHS PRN PO 2ND CHOICE CONSTIPATION 07/06/21 00:30 07/14/21 08:13 Duloxetine HCl (Cymbalta) 20 mg HS PO 07/06/21 21:00 09/07/21 21:05 Duloxetine HCl (Cymbalta) 30 mg HS PO 07/06/21 21:00 09/07/21 21:05 Mirtazapine (Remeron) 7.5 mg HS PO 07/06/21 21:00 07/29/21 18:15 DC 07/28/21 20:09 Olanzapine (ZyPREXA ZYDIS) 2.5 mg PRN Q2HR PRN PO ANXIETY / AGITATION 07/06/21 01:15 09/02/21 02:44 Trazodone HCl (Desyrel) 50 mg PRN QHS PRN PO INSOMNIA 07/06/21 01:15 09/07/21 21:06 Acetaminophen (Tylenol) 650 mg PRN Q4HRS PRN PO MILD PAIN 1-3 07/06/21 10:30 09/06/21 17:39 Aspirin (Aspirin Enteric Coated) 81 mg DAILY PO 07/07/21 09:00 09/07/21 08:51 Atorvastatin Calcium (Lipitor) 10 mg QHS PO 07/06/21 21:00 09/07/21 21:05 Carvedilol (Coreg) 3.125 mg BIDWMEALS PO 07/06/21 17:00 07/25/21 17:52 DC 07/25/21 17:22 Gabapentin (Neurontin) 300 mg BID PO 07/06/21 21:00 08/30/21 12:29 DC 08/30/21 08:20 Metformin HCl (Glucophage Xr) 500 mg DAILYWBKFT PO 07/07/21 08:00 09/07/21 08:50 Multi-Ingredient Ointment (Analgesic [place]) 1 inna PRN QID PRN TP PAIN 07/06/21 10:30 UNV Phenytoin Sodium (Dilantin) 500 mg HS PO 07/06/21 21:00 07/07/21 22:27 DC 07/07/21 20:05 Tamsulosin HCl (Flomax) 0.4 mg DAILY PO 07/07/21 09:00 09/07/21 08:51 Polyethylene Glycol (miraLAX) 17 gm PRN DAILY PRN PO 1ST CHOICE CONSTIPATION 07/06/21 10:45 08/13/21 20:07 Non-Formulary Medication (Pravastatin Sodium ) 40 mg DAILY PO 07/07/21 09:00 UNV Phenyleph/Shark Oil/Min Oil/Petrol (Preparation H) 1 inna PRN QID PRN RC RECTAL PAIN 07/06/21 15:15 Phenytoin Sodium (Dilantin) 400 mg HS PO 07/08/21 21:00 07/11/21 23:36 DC 07/11/21 20:35 Albuterol/ Ipratropium (Combivent Respimat 20-100 Mcg) 1 puff QID INH 07/08/21 13:00 09/07/21 21:07 Docusate Sodium (Colace) 100 mg DAILY PO 07/09/21 09:00 09/07/21 08:50 Guaifenesin (Mucinex Er) 600 mg BID PO 07/08/21 21:00 09/07/21 21:05 Magnesium Hydroxide (Milk Of Magnesia) 2,400 mg PRN QHS PRN PO 2nd CHOICE CONSTIPATION 07/08/21 19:30 Cancel Phenytoin Sodium (Dilantin) 200 mg HS PO 07/12/21 21:00 09/07/21 21:05 Phenytoin Sodium (Dilantin) 100 mg DAILY PO 07/12/21 09:00 09/07/21 08:52 Carvedilol (Coreg) 6.25 mg BIDWMEALS PO 07/25/21 18:00 07/25/21 18:07 DC Carvedilol (Coreg) 6.25 mg BIDWMEALS PO 07/26/21 08:00 08/02/21 09:02 DC 08/02/21 08:33 Mirtazapine (Remeron) 15 mg QHS PO 07/29/21 21:00 09/07/21 21:05 Carvedilol (Coreg) 12.5 mg BIDWMEALS PO 08/02/21 17:00 09/07/21 17:40 Albuterol Sulfate (Ventolin Hfa Inhaler) 2 puff PRN Q4HRS PRN INH SHORTNESS OF BREATH 08/02/21 09:15 09/08/21 04:01 Melatonin (Melatonin) 3 mg QHS PO 08/05/21 21:00 08/18/21 14:06 DC 08/17/21 20:06 Oxycodone/ Acetaminophen (Percocet 10) 1 tab PRN Q6HRS PRN PO MOD-SEV PAIN 08/15/21 00:15 08/15/21 00:23 Melatonin (Melatonin) 6 mg QHS PO 08/18/21 21:00 09/07/21 21:05 Influenza Virus Vaccine Quadrival (Flulaval Quad Syringe) 0.5 ml ONCE ONCE VAX IM 08/20/21 09:00 08/20/21 09:01 DC 08/20/21 11:35 Gabapentin (Neurontin) 100 mg 1X ONCE PO 08/30/21 14:00 08/30/21 14:01 Cancel Gabapentin (Neurontin) 200 mg 1X ONCE PO 08/30/21 21:00 08/30/21 21:01 Cancel Gabapentin (Neurontin) 300 mg BID PO 08/31/21 09:00 09/07/21 21:05 Gabapentin (Neurontin) 300 mg 1X ONCE PO 08/30/21 12:45 08/30/21 12:46 DC 08/30/21 12:42 I have reviewed the current psychotropics carefully including drug interactions. Risk benefit ratio favors no change other than as noted in my dictated progress note. Diagnosis: Problems: (1) Impulse control disorder, unspecified (2) Anxiety disorder, unspecified (3) Dementia, vascular, with depression (4) Dementia, vascular, with delusions (5) Major neurocognitive disorder (6) Dementia in Alzheimer's disease with depression (7) Dementia in Alzheimer's disease with delusions (8) Dementia of the Alzheimer's type with early onset with behavioral disturbance (9) Major depressive disorder in partial remission NIK LOYA MD Sep 08, 2021 07:31
[2021-09-08] MEDS: IPRATROPIUM/ALBUTEROL 20/100mcg/INH INHALER. INH SCH ×4 (08:12→21:19)
[2021-09-08] MEDS: GABAPENTIN 300 MG CAPSULE. PO SCH ×2 (08:12→21:18)
[2021-09-08] MEDS: metFORMIN XR 500 MG TAB.ER.24H PO SCH (08:12)
[2021-09-08] MEDS: DOCUSATE SODIUM 100 MG CAPSULE PO SCH (08:12)
[2021-09-08] MEDS: TAMSULOSIN 0.4 MG CAP.ER.24H. PO SCH (08:13)
[2021-09-08] MEDS: PHENYTOIN SODIUM EXTENDED 100 MG CAPSULE PO SCH ×2 (08:13→21:18)
[2021-09-08] MEDS: CARVEDILOL 12.5 MG TABLET PO SCH ×2 (08:13→17:09)
[2021-09-08] MEDS: ASPIRIN ENTERIC COATED 81 MG TABLET.DR. PO SCH (08:13)
--- NOTE | 2021-09-08 10:50 | NUR ---
ARI attempted to contact Jessica, admissions at [facility], and left a message asking for her to call ARI back RYAN re: getting placement for pt finalized.
--- NOTE | 2021-09-08 13:09 | NUR ---
WEEKLY ACTIVITY THERAPY NOTE Date of Admission: 07/06/21 Date of AT Assessment: 07/08 Precipitating behaviors that initiated intake and admission:Patient was reported to believe that his money was being stolen, his dog was being murdered, trying to leave the facility, disoriented, being tearful and crying frequently, and having sexually inappropriate conversations with other residents Goal aimed:increase socialization and engagement Initial Goal: Pt will participate in at least three individual or group Activity Therapy sessions per week. Goal changed 07/21:Pt will participate in at least five individual or group Activity Therapy sessions per week. Weekly progress towards goal: did not achieve, 12/03 Group participation level: 1 full Weekly highlights: discussed tacos history and sang taco song during taco day group Wednesday afternoon Behaviors observed: withdrawn to room, pleasant and appropriate Plan: no change to goal Beneficial adaptations: music
--- NOTE | 2021-09-08 14:49 | NUR ---
Treatment team update: Pt is eating 100% of meals and sleeping on average 4.5 hours per night. Pt continues to be calm,cooperative and compliant with medications. Pt has attended 1 group with moderate to full participation. ARI has been working with the family and [facility] on placement. It appears that [facility] has stopped the process but has not returned SW calls. ARI will continue to work on pt final discharge plans with all parties involved.
--- NOTE | 2021-09-08 15:05 | NUR ---
Nursing note: Patient in dinning room for morning medications & assessment. He is compliant with medications taken whole. Patient is A/O to self only. He is calm & cooperative. He has not been interacting with peers or participating in groups this day. He did need redirects at lunch r/t not getting what he wanted when he wanted it and not having patience. He propels self in w/c, self transfers. Patient denies pain/discomfort at this time. He is currently in bed resting his eyes in his bedroom. Will continue to monitor.
[2021-09-08 15:45] VITALS: BP 137/75
[2021-09-08] MEDS: DULoxetine HCL 20 MG CAPSULE.DR PO SCH (21:17)
[2021-09-08] MEDS: DULoxetine HCL 30 MG CAPSULE.DR PO SCH (21:17)
[2021-09-08] MEDS: ATORVASTATIN CALCIUM 10 MG TABLET. PO SCH (21:18)
[2021-09-08] MEDS: MIRTAZAPINE 15 MG TABLET PO SCH (21:18)
[2021-09-08] MEDS: MELATONIN 3 MG TABLET PO SCH (21:18)
[2021-09-08] MEDS: traZODone 50 MG TABLET. PO PRN (21:19)
--- NOTE | 2021-09-08 21:53 | PDOC ---
Exam Note: Leo Note: Please also refer to the separate dictated note~for this date of service dictated separately.~Patient seen individually. Discussed the patient with Nursing staff reviewed the chart.~Reviewed interim history and current functioning. Reviewed vital signs,~Labs/ Radiology~and current medications noted below. Continue current treatment with the changes noted in the dictated addendum note Assessment: Vital Signs/I&O: Vital Signs Date Time Temp Pulse Resp B/P (MAP) Pulse Ox O2 Delivery O2 Flow Rate FiO2 09/08/21 17:09 58 137/75 09/08/21 15:45 97.2 20 94 09/04/21 16:52 Room Air I & O 09/07/21 09/07/21 09/08/21 15:00 23:00 07:00 Intake Total 1080 ml 600 ml Balance 1080 ml 600 ml Labs: Laboratory Tests Test 09/08/21 06:58 09/08/21 07:46 White Blood Count 6.3 x10^3/uL (4.0-11.0) Red Blood Count 3.32 x10^6/uL (4.30-5.70) L Hemoglobin 11.3 g/dL (13.0-17.5) L Hematocrit 34.2 % (39.0-53.0) L Mean Corpuscular Volume 103 fL (79-100) H Mean Corpuscular Hemoglobin 34 pg (25-35) Mean Corpuscular Hemoglobin Concent 33 g/dL (31-37) Red Cell Distribution Width 13.7 % (11.5-14.5) Platelet Count 95 x10^3/uL (140-400) L Neutrophils (%) (Auto) 48 % (31-73) Lymphocytes (%) (Auto) 29 % (24-48) Monocytes (%) (Auto) 11 % (0-9) H Eosinophils (%) (Auto) 12 % (0-3) H Basophils (%) (Auto) 1 % (0-3) Neutrophils # (Auto) 3.0 x10^3uL (1.8-7.7) Lymphocytes # (Auto) 1.8 x10^3/uL (1.0-4.8) Monocytes # (Auto) 0.7 x10^3/uL (0.0-1.1) Eosinophils # (Auto) 0.7 x10^3/uL (0.0-0.7) Basophils # (Auto) 0.0 x10^3/uL (0.0-0.2) Sodium Level 142 mmol/L (136-145) Potassium Level 4.9 mmol/L (3.5-5.1) Chloride Level 107 mmol/L (98-107) Carbon Dioxide Level 31 mmol/L (21-32) Anion Gap 4 (6-14) L Blood Urea Nitrogen 55 mg/dL (8-26) H Creatinine 1.3 mg/dL (0.7-1.3) Estimated GFR (Cockcroft-Gault) 53.3 BUN/Creatinine Ratio 42 (6-20) H Glucose Level 123 mg/dL (70-99) H Calcium Level 8.8 mg/dL (8.5-10.1) Total Bilirubin 0.3 mg/dL (0.2-1.0) Aspartate Amino Transferase (AST) 15 U/L (15-37) Alanine Aminotransferase (ALT) 20 U/L (16-63) Alkaline Phosphatase 108 U/L (46-116) Total Protein 6.5 g/dL (6.4-8.2) Albumin 3.0 g/dL (3.4-5.0) L Albumin/Globulin Ratio 0.9 (1.0-1.7) L Glucose (Fingerstick) 112 mg/dL (70-99) H Current Medications: Meds: Laboratory Tests Test 09/08/21 06:58 09/08/21 07:46 White Blood Count 6.3 x10^3/uL Red Blood Count 3.32 x10^6/uL Hemoglobin 11.3 g/dL Hematocrit 34.2 % Mean Corpuscular Volume 103 fL Mean Corpuscular Hemoglobin 34 pg Mean Corpuscular Hemoglobin Concent 33 g/dL Red Cell Distribution Width 13.7 % Platelet Count 95 x10^3/uL Neutrophils (%) (Auto) 48 % Lymphocytes (%) (Auto) 29 % Monocytes (%) (Auto) 11 % Eosinophils (%) (Auto) 12 % Basophils (%) (Auto) 1 % Neutrophils # (Auto) 3.0 x10^3uL Lymphocytes # (Auto) 1.8 x10^3/uL Monocytes # (Auto) 0.7 x10^3/uL Eosinophils # (Auto) 0.7 x10^3/uL Basophils # (Auto) 0.0 x10^3/uL Sodium Level 142 mmol/L Potassium Level 4.9 mmol/L Chloride Level 107 mmol/L Carbon Dioxide Level 31 mmol/L Anion Gap 4 Blood Urea Nitrogen 55 mg/dL Creatinine 1.3 mg/dL Estimated GFR (Cockcroft-Gault) 53.3 BUN/Creatinine Ratio 42 Glucose Level 123 mg/dL Calcium Level 8.8 mg/dL Total Bilirubin 0.3 mg/dL Aspartate Amino Transf (AST/SGOT) 15 U/L Alanine Aminotransferase (ALT/SGPT) 20 U/L Alkaline Phosphatase 108 U/L Total Protein 6.5 g/dL Albumin 3.0 g/dL Albumin/Globulin Ratio 0.9 Glucose (Fingerstick) 112 mg/dL Current Medications Medications (Trade) Dose Ordered Sig/Aparna Route PRN Reason Start Time Stop Time Status Last Admin Dose Admin Acetaminophen (Tylenol) 650 mg PRN Q6HRS PRN PO MILD PAIN / TEMP > 100.3'F 07/06/21 00:30 Cancel Multi-Ingredient Ointment (Analgesic [place]) 1 inna PRN QID PRN TP MUSCLE PAIN 07/06/21 00:30 09/06/21 17:39 Al Hydroxide/Mg Hydroxide (Mylanta Plus Xs) 15 ml PRN AFTMEALHC PRN PO DYSPEPSIA 07/06/21 00:30 08/15/21 00:24 Magnesium Hydroxide (Milk Of Magnesia) 2,400 mg PRN QHS PRN PO 2ND CHOICE CONSTIPATION 07/06/21 00:30 07/14/21 08:13 Duloxetine HCl (Cymbalta) 20 mg HS PO 07/06/21 21:00 09/08/21 21:17 Duloxetine HCl (Cymbalta) 30 mg HS PO 07/06/21 21:00 09/08/21 21:17 Mirtazapine (Remeron) 7.5 mg HS PO 07/06/21 21:00 07/29/21 18:15 DC 07/28/21 20:09 Olanzapine (ZyPREXA ZYDIS) 2.5 mg PRN Q2HR PRN PO ANXIETY / AGITATION 07/06/21 01:15 09/02/21 02:44 Trazodone HCl (Desyrel) 50 mg PRN QHS PRN PO INSOMNIA 07/06/21 01:15 09/08/21 21:19 Acetaminophen (Tylenol) 650 mg PRN Q4HRS PRN PO MILD PAIN 1-3 07/06/21 10:30 09/06/21 17:39 Aspirin (Aspirin Enteric Coated) 81 mg DAILY PO 07/07/21 09:00 09/08/21 08:13 Atorvastatin Calcium (Lipitor) 10 mg QHS PO 07/06/21 21:00 09/08/21 21:18 Carvedilol (Coreg) 3.125 mg BIDWMEALS PO 07/06/21 17:00 07/25/21 17:52 DC 07/25/21 17:22 Gabapentin (Neurontin) 300 mg BID PO 07/06/21 21:00 08/30/21 12:29 DC 08/30/21 08:20 Metformin HCl (Glucophage Xr) 500 mg DAILYWBKFT PO 07/07/21 08:00 09/08/21 08:12 Multi-Ingredient Ointment (Analgesic [place]) 1 inna PRN QID PRN TP PAIN 07/06/21 10:30 UNV Phenytoin Sodium (Dilantin) 500 mg HS PO 07/06/21 21:00 07/07/21 22:27 DC 07/07/21 20:05 Tamsulosin HCl (Flomax) 0.4 mg DAILY PO 07/07/21 09:00 09/08/21 08:13 Polyethylene Glycol (miraLAX) 17 gm PRN DAILY PRN PO 1ST CHOICE CONSTIPATION 07/06/21 10:45 08/13/21 20:07 Non-Formulary Medication (Pravastatin Sodium ) 40 mg DAILY PO 07/07/21 09:00 UNV Phenyleph/Shark Oil/Min Oil/Petrol (Preparation H) 1 inna PRN QID PRN RC RECTAL PAIN 07/06/21 15:15 Phenytoin Sodium (Dilantin) 400 mg HS PO 07/08/21 21:00 07/11/21 23:36 DC 07/11/21 20:35 Albuterol/ Ipratropium (Combivent Respimat 20-100 Mcg) 1 puff QID INH 07/08/21 13:00 09/08/21 21:19 Docusate Sodium (Colace) 100 mg DAILY PO 07/09/21 09:00 09/08/21 08:12 Guaifenesin (Mucinex Er) 600 mg BID PO 07/08/21 21:00 09/08/21 21:18 Magnesium Hydroxide (Milk Of Magnesia) 2,400 mg PRN QHS PRN PO 2nd CHOICE CONSTIPATION 07/08/21 19:30 Cancel Phenytoin Sodium (Dilantin) 200 mg HS PO 07/12/21 21:00 09/08/21 21:18 Phenytoin Sodium (Dilantin) 100 mg DAILY PO 07/12/21 09:00 09/08/21 08:13 Carvedilol (Coreg) 6.25 mg BIDWMEALS PO 07/25/21 18:00 07/25/21 18:07 DC Carvedilol (Coreg) 6.25 mg BIDWMEALS PO 07/26/21 08:00 08/02/21 09:02 DC 08/02/21 08:33 Mirtazapine (Remeron) 15 mg QHS PO 07/29/21 21:00 09/08/21 21:18 Carvedilol (Coreg) 12.5 mg BIDWMEALS PO 08/02/21 17:00 09/08/21 17:09 Albuterol Sulfate (Ventolin Hfa Inhaler) 2 puff PRN Q4HRS PRN INH SHORTNESS OF BREATH 08/02/21 09:15 09/08/21 08:17 Melatonin (Melatonin) 3 mg QHS PO 08/05/21 21:00 08/18/21 14:06 DC 08/17/21 20:06 Oxycodone/ Acetaminophen (Percocet 10/325) 1 tab PRN Q6HRS PRN PO MOD-SEV PAIN 08/15/21 00:15 08/15/21 00:23 Melatonin (Melatonin) 6 mg QHS PO 08/18/21 21:00 09/08/21 21:18 Influenza Virus Vaccine Quadrival (Flulaval Quad [id number] Syringe) 0.5 ml ONCE ONCE VAX IM 08/20/21 09:00 08/20/21 09:01 DC 08/20/21 11:35 Gabapentin (Neurontin) 100 mg 1X ONCE PO 08/30/21 14:00 08/30/21 14:01 Cancel Gabapentin (Neurontin) 200 mg 1X ONCE PO 08/30/21 21:00 08/30/21 21:01 Cancel Gabapentin (Neurontin) 300 mg BID PO 08/31/21 09:00 09/08/21 21:18 Gabapentin (Neurontin) 300 mg 1X ONCE PO 08/30/21 12:45 08/30/21 12:46 DC 08/30/21 12:42 I have reviewed the current psychotropics carefully including drug interactions. Risk benefit ratio favors no change other than as noted in my dictated progress note. Diagnosis: Problems: (1) Impulse control disorder, unspecified (2) Anxiety disorder, unspecified (3) Dementia, vascular, with depression (4) Dementia, vascular, with delusions (5) Major neurocognitive disorder (6) Dementia in Alzheimer's disease with depression (7) Dementia in Alzheimer's disease with delusions (8) Dementia of the Alzheimer's type with early onset with behavioral disturbance (9) Major depressive disorder in partial remission NIK LOYA MD Sep 08, 2021 21:53
--- NOTE | 2021-09-08 23:53 | NUR ---
Pt located in [facility] this evening. Compliant with whole medications. Yelling out intermittently; asking for a Dr. Ly.
[2021-09-09 06:25] VITALS: BP 169/83
[2021-09-09] MEDS: ALBUTEROL SULFATE 8GM INHALER. INH PRN (07:59)
[2021-09-09] MEDS: IPRATROPIUM/ALBUTEROL 20/100mcg/INH INHALER. INH SCH ×4 (08:00→20:37)
[2021-09-09] MEDS: PHENYTOIN SODIUM EXTENDED 100 MG CAPSULE PO SCH ×2 (08:35→20:36)
[2021-09-09] MEDS: DOCUSATE SODIUM 100 MG CAPSULE PO SCH (08:35)
[2021-09-09] MEDS: ASPIRIN ENTERIC COATED 81 MG TABLET.DR. PO SCH (08:36)
[2021-09-09] MEDS: GABAPENTIN 300 MG CAPSULE. PO SCH ×2 (08:36→20:35)
[2021-09-09] MEDS: TAMSULOSIN 0.4 MG CAP.ER.24H. PO SCH (08:36)
[2021-09-09] MEDS: metFORMIN XR 500 MG TAB.ER.24H PO SCH (08:36)
[2021-09-09] MEDS: CARVEDILOL 12.5 MG TABLET PO SCH ×2 (08:36→17:33)
--- NOTE | 2021-09-09 16:07 | NUR ---
Nursing note: Patient in dinning room for morning medications & assessment. He is compliant with medications taken whole. Patient is A/O to self only, needed minimal encouragement to get up for meals. He is calm & cooperative. He has not been interacting with peers or participating in groups this day. He propels self in w/c, self transfers. Patient denies pain/discomfort at this time. He is currently in bed resting with eyes closed. Will continue to monitor.
[2021-09-09 16:25] VITALS: BP 117/60
[2021-09-09] MEDS: MELATONIN 3 MG TABLET PO SCH (20:35)
[2021-09-09] MEDS: DULoxetine HCL 20 MG CAPSULE.DR PO SCH (20:35)
[2021-09-09] MEDS: ATORVASTATIN CALCIUM 10 MG TABLET. PO SCH (20:35)
[2021-09-09] MEDS: DULoxetine HCL 30 MG CAPSULE.DR PO SCH (20:35)
[2021-09-09] MEDS: MIRTAZAPINE 15 MG TABLET PO SCH (20:35)
[2021-09-09] MEDS: traZODone 50 MG TABLET. PO PRN (20:37)
--- NOTE | 2021-09-09 21:52 | PDOC ---
Exam Note: Leo Note: Please also refer to the separate dictated note~for this date of service dictated separately.~Patient seen individually. Discussed the patient with Nursing staff reviewed the chart.~Reviewed interim history and current functioning. Reviewed vital signs,~Labs/ Radiology~and current medications noted below. Continue current treatment with the changes noted in the dictated addendum note Assessment: Vital Signs/I&O: Vital Signs Date Time Temp Pulse Resp B/P (MAP) Pulse Ox O2 Delivery O2 Flow Rate FiO2 09/09/21 17:33 61 117/60 09/09/21 16:25 98.0 20 96 09/04/21 16:52 Room Air I & O 09/08/21 09/08/21 09/09/21 15:00 23:00 07:00 Intake Total 900 ml 840 ml Balance 900 ml 840 ml Labs: Laboratory Tests Test 09/09/21 07:22 Glucose (Fingerstick) 95 mg/dL (70-99) Current Medications: Meds: Laboratory Tests Test 09/09/21 07:22 Glucose (Fingerstick) 95 mg/dL Current Medications Medications (Trade) Dose Ordered Sig/Aparna Route PRN Reason Start Time Stop Time Status Last Admin Dose Admin Acetaminophen (Tylenol) 650 mg PRN Q6HRS PRN PO MILD PAIN / TEMP > 100.3'F 07/06/21 00:30 Cancel Multi-Ingredient Ointment (Analgesic [place]) 1 inna PRN QID PRN TP MUSCLE PAIN 07/06/21 00:30 09/06/21 17:39 Al Hydroxide/Mg Hydroxide (Mylanta Plus Xs) 15 ml PRN AFTMEALHC PRN PO DYSPEPSIA 07/06/21 00:30 08/15/21 00:24 Magnesium Hydroxide (Milk Of Magnesia) 2,400 mg PRN QHS PRN PO 2ND CHOICE CONSTIPATION 07/06/21 00:30 07/14/21 08:13 Duloxetine HCl (Cymbalta) 20 mg HS PO 07/06/21 21:00 09/09/21 20:35 Duloxetine HCl (Cymbalta) 30 mg HS PO 07/06/21 21:00 09/09/21 20:35 Mirtazapine (Remeron) 7.5 mg HS PO 07/06/21 21:00 07/29/21 18:15 DC 07/28/21 20:09 Olanzapine (ZyPREXA ZYDIS) 2.5 mg PRN Q2HR PRN PO ANXIETY / AGITATION 07/06/21 01:15 09/02/21 02:44 Trazodone HCl (Desyrel) 50 mg PRN QHS PRN PO INSOMNIA 07/06/21 01:15 09/09/21 20:37 Acetaminophen (Tylenol) 650 mg PRN Q4HRS PRN PO MILD PAIN 1-3 07/06/21 10:30 09/06/21 17:39 Aspirin (Aspirin Enteric Coated) 81 mg DAILY PO 07/07/21 09:00 09/09/21 08:36 Atorvastatin Calcium (Lipitor) 10 mg QHS PO 07/06/21 21:00 09/09/21 20:35 Carvedilol (Coreg) 3.125 mg BIDWMEALS PO 07/06/21 17:00 07/25/21 17:52 DC 07/25/21 17:22 Gabapentin (Neurontin) 300 mg BID PO 07/06/21 21:00 08/30/21 12:29 DC 08/30/21 08:20 Metformin HCl (Glucophage Xr) 500 mg DAILYWBKFT PO 07/07/21 08:00 09/09/21 08:36 Multi-Ingredient Ointment (Analgesic [place]) 1 inna PRN QID PRN TP PAIN 07/06/21 10:30 UNV Phenytoin Sodium (Dilantin) 500 mg HS PO 07/06/21 21:00 07/07/21 22:27 DC 07/07/21 20:05 Tamsulosin HCl (Flomax) 0.4 mg DAILY PO 07/07/21 09:00 09/09/21 08:36 Polyethylene Glycol (miraLAX) 17 gm PRN DAILY PRN PO 1ST CHOICE CONSTIPATION 07/06/21 10:45 08/13/21 20:07 Non-Formulary Medication (Pravastatin Sodium ) 40 mg DAILY PO 07/07/21 09:00 UNV Phenyleph/Shark Oil/Min Oil/Petrol (Preparation H) 1 inna PRN QID PRN RC RECTAL PAIN 07/06/21 15:15 Phenytoin Sodium (Dilantin) 400 mg HS PO 07/08/21 21:00 07/11/21 23:36 DC 07/11/21 20:35 Albuterol/ Ipratropium (Combivent Respimat 20-100 Mcg) 1 puff QID INH 07/08/21 13:00 09/09/21 20:37 Docusate Sodium (Colace) 100 mg DAILY PO 07/09/21 09:00 09/09/21 08:35 Guaifenesin (Mucinex Er) 600 mg BID PO 07/08/21 21:00 09/09/21 20:35 Magnesium Hydroxide (Milk Of Magnesia) 2,400 mg PRN QHS PRN PO 2nd CHOICE CONSTIPATION 07/08/21 19:30 Cancel Phenytoin Sodium (Dilantin) 200 mg HS PO 07/12/21 21:00 09/09/21 20:36 Phenytoin Sodium (Dilantin) 100 mg DAILY PO 07/12/21 09:00 09/09/21 08:35 Carvedilol (Coreg) 6.25 mg BIDWMEALS PO 07/25/21 18:00 07/25/21 18:07 DC Carvedilol (Coreg) 6.25 mg BIDWMEALS PO 07/26/21 08:00 08/02/21 09:02 DC 08/02/21 08:33 Mirtazapine (Remeron) 15 mg QHS PO 07/29/21 21:00 09/09/21 20:35 Carvedilol (Coreg) 12.5 mg BIDWMEALS PO 08/02/21 17:00 09/09/21 17:33 Albuterol Sulfate (Ventolin Hfa Inhaler) 2 puff PRN Q4HRS PRN INH SHORTNESS OF BREATH 08/02/21 09:15 09/09/21 07:59 Melatonin (Melatonin) 3 mg QHS PO 08/05/21 21:00 08/18/21 14:06 DC 08/17/21 20:06 Oxycodone/ Acetaminophen (Percocet 10325) 1 tab PRN Q6HRS PRN PO MOD-SEV PAIN 08/15/21 00:15 08/15/21 00:23 Melatonin (Melatonin) 6 mg QHS PO 08/18/21 21:00 09/09/21 20:35 Influenza Virus Vaccine Quadrival (Flulaval Quad Syringe) 0.5 ml ONCE ONCE VAX IM 08/20/21 09:00 08/20/21 09:01 DC 08/20/21 11:35 Gabapentin (Neurontin) 100 mg 1X ONCE PO 08/30/21 14:00 08/30/21 14:01 Cancel Gabapentin (Neurontin) 200 mg 1X ONCE PO 08/30/21 21:00 08/30/21 21:01 Cancel Gabapentin (Neurontin) 300 mg BID PO 08/31/21 09:00 09/09/21 20:35 Gabapentin (Neurontin) 300 mg 1X ONCE PO 08/30/21 12:45 08/30/21 12:46 DC 08/30/21 12:42 I have reviewed the current psychotropics carefully including drug interactions. Risk benefit ratio favors no change other than as noted in my dictated progress note. 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
--- NOTE | 2021-09-09 22:49 | NUR ---
Pt located in his room this evening sleeping in bed. Pt awake when approached. Compliant with whole medications. Pt currently sleeping in bed.
[2021-09-10 05:41] VITALS: BP 172/83
[2021-09-10] MEDS: ALBUTEROL SULFATE 8GM INHALER. INH PRN ×2 (07:52→20:48)
[2021-09-10] MEDS: IPRATROPIUM/ALBUTEROL 20/100mcg/INH INHALER. INH SCH ×4 (07:53→20:48)
[2021-09-10] MEDS: ASPIRIN ENTERIC COATED 81 MG TABLET.DR. PO SCH (07:54)
[2021-09-10] MEDS: metFORMIN XR 500 MG TAB.ER.24H PO SCH (07:54)
[2021-09-10] MEDS: DOCUSATE SODIUM 100 MG CAPSULE PO SCH (07:54)
[2021-09-10] MEDS: TAMSULOSIN 0.4 MG CAP.ER.24H. PO SCH (07:54)
[2021-09-10] MEDS: GABAPENTIN 300 MG CAPSULE. PO SCH ×2 (07:54→20:47)
[2021-09-10] MEDS: CARVEDILOL 12.5 MG TABLET PO SCH ×2 (07:55→17:09)
[2021-09-10] MEDS: PHENYTOIN SODIUM EXTENDED 100 MG CAPSULE PO SCH ×2 (07:55→20:47)
--- NOTE | 2021-09-10 08:18 | PDOC ---
Exam Note: Leo Note: This note is a late entry for 09/08/2021 covers elements not covered in my initial note. Subjective: The patient was reviewed at treatment team meeting individually in the morning on 09/08/2021 with Jennifer Vizcarra, Riri Heck, and Rivka (aids social worker), Jennifer, activity therapy and Alejandra KOWALSKI, discussed and reviewed the chart. The patient slept 5-1/4 hours previous night. He has attended one group in the past one week. Overall the patient remains withdrawn, spends much time in his room. Riri discussed at length her perseverance and trying to find and coordinate senior living placement with the nephew. This is what has delayed patients discharge since this has not been concluded. Review of Systems: Ambulation impaired in wheelchair. No CV, , pulmonary, eye, ENT system symptoms on review. Mental Status Exam: The patient is oriented to himself and situation. Insight and judgment, recent and remote memory, attention and concentration, fund of knowledge is poor consistent with his diagnoses. Laboratory Data: Reviewed. Impression: Major depressive disorder, in partial remission. Major neurocognitive disorder, Alzheimer, vascular with delusion, depression, behavioral disturbance. Anxiety disorder unspecified. Impulse control disorder unspecified. Plan: Continue current psychotropics from initial note. Assessment: Vital Signs/I&O: Vital Signs Date Time Temp Pulse Resp B/P (MAP) Pulse Ox O2 Delivery O2 Flow Rate FiO2 09/10/21 07:55 109 172/83 09/10/21 05:41 98.0 22 90 09/04/21 16:52 Room Air I & O 09/09/21 09/09/21 09/10/21 15:00 23:00 07:00 Intake Total 840 ml 620 ml Balance 840 ml 620 ml Labs: Laboratory Tests Test 09/10/21 07:29 Glucose (Fingerstick) 101 mg/dL (70-99) H Current Medications: Meds: Laboratory Tests Test 09/10/21 07:29 Glucose (Fingerstick) 101 mg/dL Current Medications Medications (Trade) Dose Ordered Sig/Aparna Route PRN Reason Start Time Stop Time Status Last Admin Dose Admin Acetaminophen (Tylenol) 650 mg PRN Q6HRS PRN PO MILD PAIN / TEMP > 100.3'F 07/06/21 00:30 Cancel Multi-Ingredient Ointment (Analgesic [place]) 1 inna PRN QID PRN TP MUSCLE PAIN 07/06/21 00:30 09/06/21 17:39 Al Hydroxide/Mg Hydroxide (Mylanta Plus Xs) 15 ml PRN AFTMEALHC PRN PO DYSPEPSIA 07/06/21 00:30 08/15/21 00:24 Magnesium Hydroxide (Milk Of Magnesia) 2,400 mg PRN QHS PRN PO 2ND CHOICE CONSTIPATION 07/06/21 00:30 07/14/21 08:13 Duloxetine HCl (Cymbalta) 20 mg HS PO 07/06/21 21:00 09/09/21 20:35 Duloxetine HCl (Cymbalta) 30 mg HS PO 07/06/21 21:00 09/09/21 20:35 Mirtazapine (Remeron) 7.5 mg HS PO 07/06/21 21:00 07/29/21 18:15 DC 07/28/21 20:09 Olanzapine (ZyPREXA ZYDIS) 2.5 mg PRN Q2HR PRN PO ANXIETY / AGITATION 07/06/21 01:15 09/02/21 02:44 Trazodone HCl (Desyrel) 50 mg PRN QHS PRN PO INSOMNIA 07/06/21 01:15 09/09/21 20:37 Acetaminophen (Tylenol) 650 mg PRN Q4HRS PRN PO MILD PAIN 1-3 07/06/21 10:30 09/06/21 17:39 Aspirin (Aspirin Enteric Coated) 81 mg DAILY PO 07/07/21 09:00 09/10/21 07:54 Atorvastatin Calcium (Lipitor) 10 mg QHS PO 07/06/21 21:00 09/09/21 20:35 Carvedilol (Coreg) 3.125 mg BIDWMEALS PO 07/06/21 17:00 07/25/21 17:52 DC 07/25/21 17:22 Gabapentin (Neurontin) 300 mg BID PO 07/06/21 21:00 08/30/21 12:29 DC 08/30/21 08:20 Metformin HCl (Glucophage Xr) 500 mg DAILYWBKFT PO 07/07/21 08:00 09/10/21 07:54 Multi-Ingredient Ointment (Analgesic [place]) 1 inna PRN QID PRN TP PAIN 07/06/21 10:30 UNV Phenytoin Sodium (Dilantin) 500 mg HS PO 07/06/21 21:00 07/07/21 22:27 DC 07/07/21 20:05 Tamsulosin HCl (Flomax) 0.4 mg DAILY PO 07/07/21 09:00 09/10/21 07:54 Polyethylene Glycol (miraLAX) 17 gm PRN DAILY PRN PO 1ST CHOICE CONSTIPATION 07/06/21 10:45 08/13/21 20:07 Non-Formulary Medication (Pravastatin Sodium ) 40 mg DAILY PO 07/07/21 09:00 UNV Phenyleph/Shark Oil/Min Oil/Petrol (Preparation H) 1 inna PRN QID PRN RC RECTAL PAIN 07/06/21 15:15 Phenytoin Sodium (Dilantin) 400 mg HS PO 07/08/21 21:00 07/11/21 23:36 DC 07/11/21 20:35 Albuterol/ Ipratropium (Combivent Respimat 20-100 Mcg) 1 puff QID INH 07/08/21 13:00 09/10/21 07:53 Docusate Sodium (Colace) 100 mg DAILY PO 07/09/21 09:00 09/10/21 07:54 Guaifenesin (Mucinex Er) 600 mg BID PO 07/08/21 21:00 09/10/21 07:54 Magnesium Hydroxide (Milk Of Magnesia) 2,400 mg PRN QHS PRN PO 2nd CHOICE CONSTIPATION 07/08/21 19:30 Cancel Phenytoin Sodium (Dilantin) 200 mg HS PO 07/12/21 21:00 09/09/21 20:36 Phenytoin Sodium (Dilantin) 100 mg DAILY PO 07/12/21 09:00 09/10/21 07:55 Carvedilol (Coreg) 6.25 mg BIDWMEALS PO 07/25/21 18:00 07/25/21 18:07 DC Carvedilol (Coreg) 6.25 mg BIDWMEALS PO 07/26/21 08:00 08/02/21 09:02 DC 08/02/21 08:33 Mirtazapine (Remeron) 15 mg QHS PO 07/29/21 21:00 09/09/21 20:35 Carvedilol (Coreg) 12.5 mg BIDWMEALS PO 08/02/21 17:00 09/10/21 07:55 Albuterol Sulfate (Ventolin Hfa Inhaler) 2 puff PRN Q4HRS PRN INH SHORTNESS OF BREATH 08/02/21 09:15 09/10/21 07:52 Melatonin (Melatonin) 3 mg QHS PO 08/05/21 21:00 08/18/21 14:06 DC 08/17/21 20:06 Oxycodone/ Acetaminophen (Percocet 10) 1 tab PRN Q6HRS PRN PO MOD-SEV PAIN 08/15/21 00:15 08/15/21 00:23 Melatonin (Melatonin) 6 mg QHS PO 08/18/21 21:00 09/09/21 20:35 Influenza Virus Vaccine Quadrival (Flulaval Quad [id number] Syringe) 0.5 ml ONCE ONCE VAX IM 08/20/21 09:00 08/20/21 09:01 DC 08/20/21 11:35 Gabapentin (Neurontin) 100 mg 1X ONCE PO 08/30/21 14:00 08/30/21 14:01 Cancel Gabapentin (Neurontin) 200 mg 1X ONCE PO 08/30/21 21:00 08/30/21 21:01 Cancel Gabapentin (Neurontin) 300 mg BID PO 08/31/21 09:00 09/10/21 07:54 Gabapentin (Neurontin) 300 mg 1X ONCE PO 08/30/21 12:45 08/30/21 12:46 DC 08/30/21 12:42 I have reviewed the current psychotropics carefully including drug interactions. Risk benefit ratio favors no change other than as noted in my dictated progress note. 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
--- NOTE | 2021-09-10 08:37 | PDOC ---
Exam Note: Leo Note: This note is a late entry for 09/09/2021 covers elements not covered in my initial note. Subjective: The patient was seen individually in the evening of 09/09/2021 with Tenisha KOWALSKI, discussed and reviewed the chart. The patient slept 4 hours previous night. Patient was seen in his room. He remains withdrawn. Social service staff is actively coordinating with the nephew for placement. Review of Systems: Ambulation impaired in wheelchair. No CV, , eye, ENT system symptoms on review. Mental Status Exam: The patient is oriented to himself and situation. He is verbal, coherent, sometimes he calls me father other times he is able to recognize me as a doctor. Insight and judgment, recent and remote memory, attention and concentration, fund of knowledge is poor consistent with his diagnoses. Laboratory Data: Reviewed. Impression: Major depressive disorder, in partial remission. Major neurocognitive disorder, Alzheimer, vascular with delusion, depression, behavioral disturbance. Anxiety disorder unspecified. Impulse control disorder unspecified. Plan: Continue current psychotropics from initial note. Assessment: Vital Signs/I&O: Vital Signs Date Time Temp Pulse Resp B/P (MAP) Pulse Ox O2 Delivery O2 Flow Rate FiO2 09/10/21 07:55 109 172/83 09/10/21 05:41 98.0 22 90 09/04/21 16:52 Room Air I & O 09/09/21 09/09/21 09/10/21 15:00 23:00 07:00 Intake Total 840 ml 620 ml Balance 840 ml 620 ml Labs: Laboratory Tests Test 09/10/21 07:29 Glucose (Fingerstick) 101 mg/dL (70-99) H Current Medications: Meds: Laboratory Tests Test 09/10/21 07:29 Glucose (Fingerstick) 101 mg/dL Current Medications Medications (Trade) Dose Ordered Sig/Aparna Route PRN Reason Start Time Stop Time Status Last Admin Dose Admin Acetaminophen (Tylenol) 650 mg PRN Q6HRS PRN PO MILD PAIN / TEMP > 100.3'F 07/06/21 00:30 Cancel Multi-Ingredient Ointment (Analgesic [place]) 1 inna PRN QID PRN TP MUSCLE PAIN 07/06/21 00:30 09/06/21 17:39 Al Hydroxide/Mg Hydroxide (Mylanta Plus Xs) 15 ml PRN AFTMEALHC PRN PO DYSPEPSIA 07/06/21 00:30 08/15/21 00:24 Magnesium Hydroxide (Milk Of Magnesia) 2,400 mg PRN QHS PRN PO 2ND CHOICE CONSTIPATION 07/06/21 00:30 07/14/21 08:13 Duloxetine HCl (Cymbalta) 20 mg HS PO 07/06/21 21:00 09/09/21 20:35 Duloxetine HCl (Cymbalta) 30 mg HS PO 07/06/21 21:00 09/09/21 20:35 Mirtazapine (Remeron) 7.5 mg HS PO 07/06/21 21:00 07/29/21 18:15 DC 07/28/21 20:09 Olanzapine (ZyPREXA ZYDIS) 2.5 mg PRN Q2HR PRN PO ANXIETY / AGITATION 07/06/21 01:15 09/02/21 02:44 Trazodone HCl (Desyrel) 50 mg PRN QHS PRN PO INSOMNIA 07/06/21 01:15 09/09/21 20:37 Acetaminophen (Tylenol) 650 mg PRN Q4HRS PRN PO MILD PAIN 1-3 07/06/21 10:30 09/06/21 17:39 Aspirin (Aspirin Enteric Coated) 81 mg DAILY PO 07/07/21 09:00 09/10/21 07:54 Atorvastatin Calcium (Lipitor) 10 mg QHS PO 07/06/21 21:00 09/09/21 20:35 Carvedilol (Coreg) 3.125 mg BIDWMEALS PO 07/06/21 17:00 07/25/21 17:52 DC 07/25/21 17:22 Gabapentin (Neurontin) 300 mg BID PO 07/06/21 21:00 08/30/21 12:29 DC 08/30/21 08:20 Metformin HCl (Glucophage Xr) 500 mg DAILYWBKFT PO 07/07/21 08:00 09/10/21 07:54 Multi-Ingredient Ointment (Analgesic [place]) 1 inna PRN QID PRN TP PAIN 07/06/21 10:30 UNV Phenytoin Sodium (Dilantin) 500 mg HS PO 07/06/21 21:00 07/07/21 22:27 DC 07/07/21 20:05 Tamsulosin HCl (Flomax) 0.4 mg DAILY PO 07/07/21 09:00 09/10/21 07:54 Polyethylene Glycol (miraLAX) 17 gm PRN DAILY PRN PO 1ST CHOICE CONSTIPATION 07/06/21 10:45 08/13/21 20:07 Non-Formulary Medication (Pravastatin Sodium ) 40 mg DAILY PO 07/07/21 09:00 UNV Phenyleph/Shark Oil/Min Oil/Petrol (Preparation H) 1 inna PRN QID PRN RC RECTAL PAIN 07/06/21 15:15 Phenytoin Sodium (Dilantin) 400 mg HS PO 07/08/21 21:00 07/11/21 23:36 DC 07/11/21 20:35 Albuterol/ Ipratropium (Combivent Respimat 20-100 Mcg) 1 puff QID INH 07/08/21 13:00 09/10/21 07:53 Docusate Sodium (Colace) 100 mg DAILY PO 07/09/21 09:00 09/10/21 07:54 Guaifenesin (Mucinex Er) 600 mg BID PO 07/08/21 21:00 09/10/21 07:54 Magnesium Hydroxide (Milk Of Magnesia) 2,400 mg PRN QHS PRN PO 2nd CHOICE CONSTIPATION 07/08/21 19:30 Cancel Phenytoin Sodium (Dilantin) 200 mg HS PO 07/12/21 21:00 09/09/21 20:36 Phenytoin Sodium (Dilantin) 100 mg DAILY PO 07/12/21 09:00 09/10/21 07:55 Carvedilol (Coreg) 6.25 mg BIDWMEALS PO 07/25/21 18:00 07/25/21 18:07 DC Carvedilol (Coreg) 6.25 mg BIDWMEALS PO 07/26/21 08:00 08/02/21 09:02 DC 08/02/21 08:33 Mirtazapine (Remeron) 15 mg QHS PO 07/29/21 21:00 09/09/21 20:35 Carvedilol (Coreg) 12.5 mg BIDWMEALS PO 08/02/21 17:00 09/10/21 07:55 Albuterol Sulfate (Ventolin Hfa Inhaler) 2 puff PRN Q4HRS PRN INH SHORTNESS OF BREATH 08/02/21 09:15 09/10/21 07:52 Melatonin (Melatonin) 3 mg QHS PO 08/05/21 21:00 08/18/21 14:06 DC 08/17/21 20:06 Oxycodone/ Acetaminophen (Percocet 10/325) 1 tab PRN Q6HRS PRN PO MOD-SEV PAIN 08/15/21 00:15 08/15/21 00:23 Melatonin (Melatonin) 6 mg QHS PO 08/18/21 21:00 09/09/21 20:35 Influenza Virus Vaccine Quadrival (Flulaval Quad Syringe) 0.5 ml ONCE ONCE VAX IM 08/20/21 09:00 08/20/21 09:01 DC 08/20/21 11:35 Gabapentin (Neurontin) 100 mg 1X ONCE PO 08/30/21 14:00 08/30/21 14:01 Cancel Gabapentin (Neurontin) 200 mg 1X ONCE PO 08/30/21 21:00 08/30/21 21:01 Cancel Gabapentin (Neurontin) 300 mg BID PO 08/31/21 09:00 09/10/21 07:54 Gabapentin (Neurontin) 300 mg 1X ONCE PO 08/30/21 12:45 08/30/21 12:46 DC 08/30/21 12:42 I have reviewed the current psychotropics carefully including drug interactions. Risk benefit ratio favors no change other than as noted in my dictated progress note. 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
--- NOTE | 2021-09-10 10:29 | NUR ---
Nursing note: Pt in his room at time of AM med pass and assessment. He is pleasant, med compliant and cooperative. He denies having any pain/concerns. He is currently resting quietly in his bed. Will continue to monitor.
--- NOTE | 2021-09-10 10:48 | NUR ---
ARI returned call to Gertrudis at [facility] and had to leave a message for her to call ARI back. Gertrudis can be reached at
--- NOTE | 2021-09-10 10:48 | NUR ---
ARI received call back from APS and SW was corrected on the representatives name being Olga and NOT Gertrudis. Olga reports that she needs to schedule a way to talk to pt to determine his mental status and ARI recommended setting up a Zoom meeting for the purpose that pt may not be able to hear via phone. ARI to set the Zoom meeting up for Wednesday at 0930. Addendum: 09/10/21 at 1151 by JUANIS CHAPMAN Correction: Olga returned ARI call back at 1123AM
--- NOTE | 2021-09-10 11:00 | NUR ---
ARI emailed the Publicity Manager of [facility], Ann Med and requested that she follow-up with her Admission staff or ED at [facility]. ARI informed Ann that SW has left messages on Wednesday, Wednesday and Wednesday with no response about getting my pt transferred over. Ann reports that she spoke to them on Wednesday, she was told there were no openings on the male hallway. Ann is not sure why no one has contacted ARI to inform her of this but will make sure to have them call [facility] to inform ARI and issued an apology for the poor communication.
[2021-09-10 15:34] VITALS: BP 131/53
[2021-09-10] MEDS: DULoxetine HCL 20 MG CAPSULE.DR PO SCH (20:46)
[2021-09-10] MEDS: DULoxetine HCL 30 MG CAPSULE.DR PO SCH (20:46)
[2021-09-10] MEDS: MELATONIN 3 MG TABLET PO SCH (20:47)
[2021-09-10] MEDS: MIRTAZAPINE 15 MG TABLET PO SCH (20:47)
[2021-09-10] MEDS: ATORVASTATIN CALCIUM 10 MG TABLET. PO SCH (20:47)
--- NOTE | 2021-09-10 22:58 | PDOC ---
Exam Note: Leo Note: This note covers elements not covered in my initial note. Subjective: The patient was seen individually in the evening of 09/10/2021 with Gogo KOWALSKI, discussed and reviewed the chart. The patient slept 6-1/4 hours previous night. Overall patient has been pleasant, yodelling on the unit. Social service staff are actively working with the nephew to arrange placement. Review of Systems: Ambulation impaired in wheelchair. No CV, , pulmonary, eye, ENT system symptoms on review. Mental Status Exam: The patient is oriented to himself and situation. Insight and judgment, recent and remote memory, attention and concentration, fund of knowledge is poor consistent with his diagnoses. Laboratory Data: Reviewed. Impression: Major depressive disorder, in partial remission. Major neurocognitive disorder, Alzheimer, vascular with delusion, depression, behavioral disturbance. Anxiety disorder unspecified. Impulse control disorder unspecified. Plan: Continue current psychotropics from initial note. Assessment: Vital Signs/I&O: Vital Signs Date Time Temp Pulse Resp B/P (MAP) Pulse Ox O2 Delivery O2 Flow Rate FiO2 09/10/21 17:09 69 131/53 09/10/21 15:34 97.9 18 95 09/04/21 16:52 Room Air I & O 09/09/21 09/09/21 09/10/21 15:00 23:00 07:00 Intake Total 840 ml 620 ml Balance 840 ml 620 ml Labs: Laboratory Tests Test 09/10/21 07:29 Glucose (Fingerstick) 101 mg/dL (70-99) H Current Medications: Meds: Laboratory Tests Test 09/10/21 07:29 Glucose (Fingerstick) 101 mg/dL Current Medications Medications (Trade) Dose Ordered Sig/Aparna Route PRN Reason Start Time Stop Time Status Last Admin Dose Admin Acetaminophen (Tylenol) 650 mg PRN Q6HRS PRN PO MILD PAIN / TEMP > 100.3'F 07/06/21 00:30 Cancel Multi-Ingredient Ointment (Analgesic [place]) 1 inna PRN QID PRN TP MUSCLE PAIN 07/06/21 00:30 09/06/21 17:39 Al Hydroxide/Mg Hydroxide (Mylanta Plus Xs) 15 ml PRN AFTMEALHC PRN PO DYSPEPSIA 07/06/21 00:30 08/15/21 00:24 Magnesium Hydroxide (Milk Of Magnesia) 2,400 mg PRN QHS PRN PO 2ND CHOICE CONSTIPATION 07/06/21 00:30 07/14/21 08:13 Duloxetine HCl (Cymbalta) 20 mg HS PO 07/06/21 21:00 09/10/21 20:46 Duloxetine HCl (Cymbalta) 30 mg HS PO 07/06/21 21:00 09/10/21 20:46 Mirtazapine (Remeron) 7.5 mg HS PO 07/06/21 21:00 07/29/21 18:15 DC 07/28/21 20:09 Olanzapine (ZyPREXA ZYDIS) 2.5 mg PRN Q2HR PRN PO ANXIETY / AGITATION 07/06/21 01:15 09/02/21 02:44 Trazodone HCl (Desyrel) 50 mg PRN QHS PRN PO INSOMNIA 07/06/21 01:15 09/09/21 20:37 Acetaminophen (Tylenol) 650 mg PRN Q4HRS PRN PO MILD PAIN 1-3 07/06/21 10:30 09/06/21 17:39 Aspirin (Aspirin Enteric Coated) 81 mg DAILY PO 07/07/21 09:00 09/10/21 07:54 Atorvastatin Calcium (Lipitor) 10 mg QHS PO 07/06/21 21:00 09/10/21 20:47 Carvedilol (Coreg) 3.125 mg BIDWMEALS PO 07/06/21 17:00 07/25/21 17:52 DC 07/25/21 17:22 Gabapentin (Neurontin) 300 mg BID PO 07/06/21 21:00 08/30/21 12:29 DC 08/30/21 08:20 Metformin HCl (Glucophage Xr) 500 mg DAILYWBKFT PO 07/07/21 08:00 09/10/21 07:54 Multi-Ingredient Ointment (Analgesic [place]) 1 inna PRN QID PRN TP PAIN 07/06/21 10:30 UNV Phenytoin Sodium (Dilantin) 500 mg HS PO 07/06/21 21:00 07/07/21 22:27 DC 07/07/21 20:05 Tamsulosin HCl (Flomax) 0.4 mg DAILY PO 07/07/21 09:00 09/10/21 07:54 Polyethylene Glycol (miraLAX) 17 gm PRN DAILY PRN PO 1ST CHOICE CONSTIPATION 07/06/21 10:45 08/13/21 20:07 Non-Formulary Medication (Pravastatin Sodium ) 40 mg DAILY PO 07/07/21 09:00 UNV Phenyleph/Shark Oil/Min Oil/Petrol (Preparation H) 1 inna PRN QID PRN RC RECTAL PAIN 07/06/21 15:15 Phenytoin Sodium (Dilantin) 400 mg HS PO 07/08/21 21:00 07/11/21 23:36 DC 07/11/21 20:35 Albuterol/ Ipratropium (Combivent Respimat 20-100 Mcg) 1 puff QID INH 07/08/21 13:00 09/10/21 20:48 Docusate Sodium (Colace) 100 mg DAILY PO 07/09/21 09:00 09/10/21 07:54 Guaifenesin (Mucinex Er) 600 mg BID PO 07/08/21 21:00 09/10/21 20:47 Magnesium Hydroxide (Milk Of Magnesia) 2,400 mg PRN QHS PRN PO 2nd CHOICE CONSTIPATION 07/08/21 19:30 Cancel Phenytoin Sodium (Dilantin) 200 mg HS PO 07/12/21 21:00 09/10/21 20:47 Phenytoin Sodium (Dilantin) 100 mg DAILY PO 07/12/21 09:00 09/10/21 07:55 Carvedilol (Coreg) 6.25 mg BIDWMEALS PO 07/25/21 18:00 07/25/21 18:07 DC Carvedilol (Coreg) 6.25 mg BIDWMEALS PO 07/26/21 08:00 08/02/21 09:02 DC 08/02/21 08:33 Mirtazapine (Remeron) 15 mg QHS PO 07/29/21 21:00 09/10/21 20:47 Carvedilol (Coreg) 12.5 mg BIDWMEALS PO 08/02/21 17:00 09/10/21 17:09 Albuterol Sulfate (Ventolin Hfa Inhaler) 2 puff PRN Q4HRS PRN INH SHORTNESS OF BREATH 08/02/21 09:15 09/10/21 20:48 Melatonin (Melatonin) 3 mg QHS PO 08/05/21 21:00 08/18/21 14:06 DC 08/17/21 20:06 Oxycodone/ Acetaminophen (Percocet 10/325) 1 tab PRN Q6HRS PRN PO MOD-SEV PAIN 08/15/21 00:15 08/15/21 00:23 Melatonin (Melatonin) 6 mg QHS PO 08/18/21 21:00 09/10/21 20:47 Influenza Virus Vaccine Quadrival (Flulaval Quad Syringe) 0.5 ml ONCE ONCE VAX IM 08/20/21 09:00 08/20/21 09:01 DC 08/20/21 11:35 Gabapentin (Neurontin) 100 mg 1X ONCE PO 08/30/21 14:00 08/30/21 14:01 Cancel Gabapentin (Neurontin) 200 mg 1X ONCE PO 08/30/21 21:00 08/30/21 21:01 Cancel Gabapentin (Neurontin) 300 mg BID PO 08/31/21 09:00 09/10/21 20:47 Gabapentin (Neurontin) 300 mg 1X ONCE PO 08/30/21 12:45 08/30/21 12:46 DC 08/30/21 12:42 I have reviewed the current psychotropics carefully including drug interactions. Risk benefit ratio favors no change other than as noted in my dictated progress note. Diagnosis: Problems: (1) Impulse control disorder, unspecified (2) Anxiety disorder, unspecified (3) Dementia, vascular, with depression (4) Dementia, vascular, with delusions (5) Major neurocognitive disorder (6) Dementia in Alzheimer's disease with depression (7) Dementia in Alzheimer's disease with delusions (8) Dementia of the Alzheimer's type with early onset with behavioral disturbance (9) Major depressive disorder in partial remission NIK LOYA MD Sep 10, 2021 22:58
--- NOTE | 2021-09-11 00:20 | NUR ---
Patient spent most of the evening sitting in the doorway to his room. He has been asking to call his nephew and singing Kp songs. Patient is delusional, he stated that his 50K truck is in the parking lot and that we (hospital) are stealing it to sell it to keep the money. He also stated that the only reason he is here is because he has good insurance. Patient then began to tell the story of his dogs being given away by his family and states that "when he gets back to his house" he will be getting them back. Patient then began asking when he can leave/discharge, nurse stated she did not know when the discharge date was going to be and that Dr Parra and Social Work would work something out with his DPOA.
[2021-09-11 06:32] VITALS: BP 132/84
[2021-09-11] MEDS: TAMSULOSIN 0.4 MG CAP.ER.24H. PO SCH (08:36)
[2021-09-11] MEDS: CARVEDILOL 12.5 MG TABLET PO SCH ×2 (08:36→17:40)
[2021-09-11] MEDS: ASPIRIN ENTERIC COATED 81 MG TABLET.DR. PO SCH (08:36)
[2021-09-11] MEDS: PHENYTOIN SODIUM EXTENDED 100 MG CAPSULE PO SCH ×2 (08:37→20:40)
[2021-09-11] MEDS: metFORMIN XR 500 MG TAB.ER.24H PO SCH (08:37)
[2021-09-11] MEDS: DOCUSATE SODIUM 100 MG CAPSULE PO SCH (08:37)
[2021-09-11] MEDS: GABAPENTIN 300 MG CAPSULE. PO SCH ×2 (08:37→20:40)
[2021-09-11] MEDS: IPRATROPIUM/ALBUTEROL 20/100mcg/INH INHALER. INH SCH ×4 (08:38→20:42)
[2021-09-11] MEDS: ALBUTEROL SULFATE 8GM INHALER. INH PRN (08:38)
--- NOTE | 2021-09-11 14:34 | NUR ---
Nursing note: Pt in dining room at time of AM med pass and assessment. He is pleasant, med compliant and cooperative. He denies having any pain/concerns. He is currently sitting quietly in his room. Will continue to monitor.
[2021-09-11 15:51] VITALS: BP 146/69
[2021-09-11] MEDS: MELATONIN 3 MG TABLET PO SCH (20:39)
[2021-09-11] MEDS: ATORVASTATIN CALCIUM 10 MG TABLET. PO SCH (20:40)
[2021-09-11] MEDS: MIRTAZAPINE 15 MG TABLET PO SCH (20:40)
[2021-09-11] MEDS: DULoxetine HCL 20 MG CAPSULE.DR PO SCH (20:40)
[2021-09-11] MEDS: DULoxetine HCL 30 MG CAPSULE.DR PO SCH (20:40)
--- NOTE | 2021-09-11 21:58 | PDOC ---
Exam Note: Leo Note: Please also refer to the separate dictated note~for this date of service dictated separately.~Patient seen individually. Discussed the patient with Nursing staff reviewed the chart.~Reviewed interim history and current functioning. Reviewed vital signs,~Labs/ Radiology~and current medications noted below. Continue current treatment with the changes noted in the dictated addendum note Assessment: Vital Signs/I&O: Vital Signs Date Time Temp Pulse Resp B/P (MAP) Pulse Ox O2 Delivery O2 Flow Rate FiO2 09/11/21 17:40 72 146/69 09/11/21 15:51 97.8 17 96 I & O 09/10/21 09/10/21 09/11/21 15:00 23:00 07:00 Intake Total 1240 ml 707 ml Balance 1240 ml 707 ml Labs: Laboratory Tests Test 09/11/21 07:51 Glucose (Fingerstick) 122 mg/dL (70-99) H Current Medications: Meds: Laboratory Tests Test 09/11/21 07:51 Glucose (Fingerstick) 122 mg/dL Current Medications Medications (Trade) Dose Ordered Sig/Aparna Route PRN Reason Start Time Stop Time Status Last Admin Dose Admin Acetaminophen (Tylenol) 650 mg PRN Q6HRS PRN PO MILD PAIN / TEMP > 100.3'F 07/06/21 00:30 Cancel Multi-Ingredient Ointment (Analgesic [place]) 1 inna PRN QID PRN TP MUSCLE PAIN 07/06/21 00:30 09/06/21 17:39 Al Hydroxide/Mg Hydroxide (Mylanta Plus Xs) 15 ml PRN AFTMEALHC PRN PO DYSPEPSIA 07/06/21 00:30 08/15/21 00:24 Magnesium Hydroxide (Milk Of Magnesia) 2,400 mg PRN QHS PRN PO 2ND CHOICE CONSTIPATION 07/06/21 00:30 07/14/21 08:13 Duloxetine HCl (Cymbalta) 20 mg HS PO 07/06/21 21:00 09/11/21 20:40 Duloxetine HCl (Cymbalta) 30 mg HS PO 07/06/21 21:00 09/11/21 20:40 Mirtazapine (Remeron) 7.5 mg HS PO 07/06/21 21:00 07/29/21 18:15 DC 07/28/21 20:09 Olanzapine (ZyPREXA ZYDIS) 2.5 mg PRN Q2HR PRN PO ANXIETY / AGITATION 07/06/21 01:15 09/02/21 02:44 Trazodone HCl (Desyrel) 50 mg PRN QHS PRN PO INSOMNIA 07/06/21 01:15 09/09/21 20:37 Acetaminophen (Tylenol) 650 mg PRN Q4HRS PRN PO MILD PAIN 1-3 07/06/21 10:30 09/06/21 17:39 Aspirin (Aspirin Enteric Coated) 81 mg DAILY PO 07/07/21 09:00 09/11/21 08:36 Atorvastatin Calcium (Lipitor) 10 mg QHS PO 07/06/21 21:00 09/11/21 20:40 Carvedilol (Coreg) 3.125 mg BIDWMEALS PO 07/06/21 17:00 07/25/21 17:52 DC 07/25/21 17:22 Gabapentin (Neurontin) 300 mg BID PO 07/06/21 21:00 08/30/21 12:29 DC 08/30/21 08:20 Metformin HCl (Glucophage Xr) 500 mg DAILYWBKFT PO 07/07/21 08:00 09/11/21 08:37 Multi-Ingredient Ointment (Analgesic [place]) 1 inna PRN QID PRN TP PAIN 07/06/21 10:30 UNV Phenytoin Sodium (Dilantin) 500 mg HS PO 07/06/21 21:00 07/07/21 22:27 DC 07/07/21 20:05 Tamsulosin HCl (Flomax) 0.4 mg DAILY PO 07/07/21 09:00 09/11/21 08:36 Polyethylene Glycol (miraLAX) 17 gm PRN DAILY PRN PO 1ST CHOICE CONSTIPATION 07/06/21 10:45 08/13/21 20:07 Non-Formulary Medication (Pravastatin Sodium ) 40 mg DAILY PO 07/07/21 09:00 UNV Phenyleph/Shark Oil/Min Oil/Petrol (Preparation H) 1 inna PRN QID PRN RC RECTAL PAIN 07/06/21 15:15 Phenytoin Sodium (Dilantin) 400 mg HS PO 07/08/21 21:00 07/11/21 23:36 DC 07/11/21 20:35 Albuterol/ Ipratropium (Combivent Respimat 20-100 Mcg) 1 puff QID INH 07/08/21 13:00 09/11/21 20:42 Docusate Sodium (Colace) 100 mg DAILY PO 07/09/21 09:00 09/11/21 08:37 Guaifenesin (Mucinex Er) 600 mg BID PO 07/08/21 21:00 09/11/21 20:40 Magnesium Hydroxide (Milk Of Magnesia) 2,400 mg PRN QHS PRN PO 2nd CHOICE CONSTIPATION 07/08/21 19:30 Cancel Phenytoin Sodium (Dilantin) 200 mg HS PO 07/12/21 21:00 09/11/21 20:40 Phenytoin Sodium (Dilantin) 100 mg DAILY PO 07/12/21 09:00 09/11/21 08:37 Carvedilol (Coreg) 6.25 mg BIDWMEALS PO 07/25/21 18:00 07/25/21 18:07 DC Carvedilol (Coreg) 6.25 mg BIDWMEALS PO 07/26/21 08:00 08/02/21 09:02 DC 08/02/21 08:33 Mirtazapine (Remeron) 15 mg QHS PO 07/29/21 21:00 09/11/21 20:40 Carvedilol (Coreg) 12.5 mg BIDWMEALS PO 08/02/21 17:00 09/11/21 17:40 Albuterol Sulfate (Ventolin Hfa Inhaler) 2 puff PRN Q4HRS PRN INH SHORTNESS OF BREATH 08/02/21 09:15 09/11/21 08:38 Melatonin (Melatonin) 3 mg QHS PO 08/05/21 21:00 08/18/21 14:06 DC 08/17/21 20:06 Oxycodone/ Acetaminophen (Percocet 10/325) 1 tab PRN Q6HRS PRN PO MOD-SEV PAIN 08/15/21 00:15 08/15/21 00:23 Melatonin (Melatonin) 6 mg QHS PO 08/18/21 21:00 09/11/21 20:39 Influenza Virus Vaccine Quadrival (Flulaval Quad [id number] Syringe) 0.5 ml ONCE ONCE VAX IM 08/20/21 09:00 08/20/21 09:01 DC 08/20/21 11:35 Gabapentin (Neurontin) 100 mg 1X ONCE PO 08/30/21 14:00 08/30/21 14:01 Cancel Gabapentin (Neurontin) 200 mg 1X ONCE PO 08/30/21 21:00 08/30/21 21:01 Cancel Gabapentin (Neurontin) 300 mg BID PO 08/31/21 09:00 09/11/21 20:40 Gabapentin (Neurontin) 300 mg 1X ONCE PO 08/30/21 12:45 08/30/21 12:46 DC 08/30/21 12:42 I have reviewed the current psychotropics carefully including drug interactions. Risk benefit ratio favors no change other than as noted in my dictated progress note. Diagnosis: Problems: (1) Impulse control disorder, unspecified (2) Anxiety disorder, unspecified (3) Dementia, vascular, with depression (4) Dementia, vascular, with delusions (5) Major neurocognitive disorder (6) Dementia in Alzheimer's disease with depression (7) Dementia in Alzheimer's disease with delusions (8) Dementia of the Alzheimer's type with early onset with behavioral disturbance (9) Major depressive disorder in partial remission NIK LOYA MD Sep 11, 2021 21:58
--- NOTE | 2021-09-11 23:30 | NUR ---
Nursing Note The patient was located in the garcia and in his room for his assessment. The patient was pleasant during interactions and was alert to self only. The patient took his medications whole. The patient was very focused on having a staff member make his bed. The patient stated that he has never known how to make a bed. This nurse instructed the patient on how to make a bed. The patient is currently laying in bed awake. The patient took his medication whole.
[2021-09-12] MEDS: MAG HYDROX/AL HYDROX/SIMETH 30 ML ORAL.SUSP PO PRN (02:36)
[2021-09-12 05:56] VITALS: BP 145/68
[2021-09-12] MEDS: GABAPENTIN 300 MG CAPSULE. PO SCH ×2 (08:07→20:43)
[2021-09-12] MEDS: metFORMIN XR 500 MG TAB.ER.24H PO SCH (08:07)
[2021-09-12] MEDS: CARVEDILOL 12.5 MG TABLET PO SCH ×2 (08:07→17:14)
[2021-09-12] MEDS: TAMSULOSIN 0.4 MG CAP.ER.24H. PO SCH (08:07)
[2021-09-12] MEDS: ASPIRIN ENTERIC COATED 81 MG TABLET.DR. PO SCH (08:08)
[2021-09-12] MEDS: IPRATROPIUM/ALBUTEROL 20/100mcg/INH INHALER. INH SCH ×4 (08:08→20:44)
[2021-09-12] MEDS: PHENYTOIN SODIUM EXTENDED 100 MG CAPSULE PO SCH ×2 (08:08→20:38)
[2021-09-12] MEDS: DOCUSATE SODIUM 100 MG CAPSULE PO SCH (08:08)
--- NOTE | 2021-09-12 09:42 | NUR ---
Pt has been present and visible on the unit. His interactions with others have been appropriate. He spent the morning socializing with staff and yoeling intermittently. He then made up a cute (socially appropriate) song about ARI Carranza. He is compliant with whole medications and is able to make his needs known to staff. Pt absent of SI/HI/VH/AH/delusions/pain at this time. Plan of care continues, will pass to next shift.
[2021-09-12 15:32] VITALS: BP 149/71
[2021-09-12] MEDS: ATORVASTATIN CALCIUM 10 MG TABLET. PO SCH (20:41)
[2021-09-12] MEDS: DULoxetine HCL 20 MG CAPSULE.DR PO SCH (20:41)
[2021-09-12] MEDS: DULoxetine HCL 30 MG CAPSULE.DR PO SCH (20:41)
[2021-09-12] MEDS: MIRTAZAPINE 15 MG TABLET PO SCH (20:41)
[2021-09-12] MEDS: MELATONIN 3 MG TABLET PO SCH (20:41)
--- NOTE | 2021-09-12 23:59 | NUR ---
Nursing Note The patient was located in the garcia and in his room for his assessment. The patient was pleasant during interactions and was alert to self only. The patient took his medications whole. The patient is currently laying in bed asleep.
--- NOTE | 2021-09-13 05:14 | PN ---
DATE: 09/11/2021 PSYCHIATRIC PROGRESS NOTE This late entry of 09/11 covers elements not covered in my initial note. I met with the patient in the evening. Discussed with DEX Johnson. The patient slept 6-3/4 hours previous night. He remains withdrawn, gets more anxious late in the evening with somatic symptoms and redirects. REVIEW OF SYSTEMS: Ambulation impaired, in wheelchair. No CV, , pulmonary, eye system symptoms on review. Does complain of some cough. I met with him at length in his room. MENTAL STATUS EXAM: Oriented to himself, situation. Speech coherent, at times a little pressured, gets confused, thought I was a preacher at one point and then referred to me as doctor. Abstraction fair. Computation impaired. Language function intact. Mood and affect remain somewhat anxious, labile. He had many questions about his discharge plans and I addressed how social service staff are coordinating with his nephew/DPOA for this. LABORATORY DATA: Reviewed. IMPRESSION: Major depressive disorder, major neurocognitive disorder, Alzheimer, vascular with delusion, depression, rest unchanged. PLAN: Continue current psychotropics, adjust as clinically indicated. RAUL DR: Melissa TID: [id number]
[2021-09-13 06:16] VITALS: BP 172/72
--- NOTE | 2021-09-13 08:39 | PDOC ---
Exam Note: Leo Note: Late entry for 09/12/2021.Please also refer to the separate dictated note~for this date of service dictated separately.~Patient seen individually. Discussed the patient with Nursing staff reviewed the chart.~Reviewed interim history and current functioning. Reviewed vital signs,~Labs/ Radiology~and current medica tions noted below. Continue current treatment with the changes noted in the dictated addendum note Assessment: Vital Signs/I&O: Vital Signs Date Time Temp Pulse Resp B/P (MAP) Pulse Ox O2 Delivery O2 Flow Rate FiO2 09/13/21 06:16 97.4 75 22 172/72 (105) 91 Room Air I & O 09/12/21 09/12/21 09/13/21 15:00 23:00 07:00 Intake Total 840 ml 840 ml Balance 840 ml 840 ml Labs: Laboratory Tests Test 09/13/21 07:24 Glucose (Fingerstick) 109 mg/dL (70-99) H Current Medications: I have reviewed the current psychotropics carefully including drug interactions. Risk benefit ratio favors no change other than as noted in my dictated progress note. Diagnosis: Problems: (1) Impulse control disorder, unspecified (2) Anxiety disorder, unspecified (3) Dementia, vascular, with depression (4) Dementia, vascular, with delusions (5) Dementia in Alzheimer's disease with delusions (6) Major neurocognitive disorder (7) Dementia of the Alzheimer's type with early onset with behavioral disturbance (8) Major depressive disorder in partial remission NIK LOYA MD Sep 13, 2021 08:39
[2021-09-13] MEDS: ASPIRIN ENTERIC COATED 81 MG TABLET.DR. PO SCH (08:54)
[2021-09-13] MEDS: PHENYTOIN SODIUM EXTENDED 100 MG CAPSULE PO SCH ×2 (08:54→20:38)
[2021-09-13] MEDS: CARVEDILOL 12.5 MG TABLET PO SCH ×2 (08:54→17:00)
[2021-09-13] MEDS: TAMSULOSIN 0.4 MG CAP.ER.24H. PO SCH (08:54)
[2021-09-13] MEDS: GABAPENTIN 300 MG CAPSULE. PO SCH ×2 (08:54→20:40)
[2021-09-13] MEDS: metFORMIN XR 500 MG TAB.ER.24H PO SCH (08:54)
[2021-09-13] MEDS: DOCUSATE SODIUM 100 MG CAPSULE PO SCH (08:55)
[2021-09-13] MEDS: IPRATROPIUM/ALBUTEROL 20/100mcg/INH INHALER. INH SCH ×4 (08:56→20:36)
--- NOTE | 2021-09-13 09:22 | NUR ---
Pt has been present and visible on the unit. His interactions with others have been appropriate. Pt expressing possible delusions; claiming that Harjeet informed him yesterday that he was going to pick pt up and take him home. Pt frustrated that he hasn't been picked up yet, and wants to talk to SW about these frustrations despite it being the weekend. He is compliant with whole medications and is able to make his needs known to staff. Pt absent of SI/HI/VH/AH/pain at this time. Plan of care continues, will pass to next shift.
[2021-09-13 15:55] VITALS: BP 127/64
[2021-09-13] MEDS: MELATONIN 3 MG TABLET PO SCH (20:38)
[2021-09-13] MEDS: DULoxetine HCL 30 MG CAPSULE.DR PO SCH (20:39)
[2021-09-13] MEDS: DULoxetine HCL 20 MG CAPSULE.DR PO SCH (20:39)
[2021-09-13] MEDS: MIRTAZAPINE 15 MG TABLET PO SCH (20:40)
[2021-09-13] MEDS: ATORVASTATIN CALCIUM 10 MG TABLET. PO SCH (20:40)
--- NOTE | 2021-09-13 21:25 | PDOC ---
Exam Note: Leo Note: Please also refer to the separate dictated note~for this date of service dictated separately.~Patient seen individually. Discussed the patient with Nursing staff reviewed the chart.~Reviewed interim history and current functioning. Reviewed vital signs,~Labs/ Radiology~and current medications noted below. Continue current treatment with the changes noted in the dictated addendum note Assessment: Vital Signs/I&O: Vital Signs Date Time Temp Pulse Resp B/P (MAP) Pulse Ox O2 Delivery O2 Flow Rate FiO2 09/13/21 17:00 73 127/64 09/13/21 15:55 98.1 20 95 Room Air I & O 09/12/21 09/12/21 09/13/21 15:00 23:00 07:00 Intake Total 840 ml 840 ml Balance 840 ml 840 ml Labs: Laboratory Tests Test 09/13/21 07:24 Glucose (Fingerstick) 109 mg/dL (70-99) H Current Medications: Meds: Laboratory Tests Test 09/13/21 07:24 Glucose (Fingerstick) 109 mg/dL Current Medications Medications (Trade) Dose Ordered Sig/Aparna Route PRN Reason Start Time Stop Time Status Last Admin Dose Admin Acetaminophen (Tylenol) 650 mg PRN Q6HRS PRN PO MILD PAIN / TEMP > 100.3'F 07/06/21 00:30 Cancel Multi-Ingredient Ointment (Analgesic [place]) 1 inna PRN QID PRN TP MUSCLE PAIN 07/06/21 00:30 09/06/21 17:39 Al Hydroxide/Mg Hydroxide (Mylanta Plus Xs) 15 ml PRN AFTMEALHC PRN PO DYSPEPSIA 07/06/21 00:30 09/12/21 02:36 Magnesium Hydroxide (Milk Of Magnesia) 2,400 mg PRN QHS PRN PO 2ND CHOICE CONSTIPATION 07/06/21 00:30 07/14/21 08:13 Duloxetine HCl (Cymbalta) 20 mg HS PO 07/06/21 21:00 09/13/21 20:39 Duloxetine HCl (Cymbalta) 30 mg HS PO 07/06/21 21:00 09/13/21 20:39 Mirtazapine (Remeron) 7.5 mg HS PO 07/06/21 21:00 07/29/21 18:15 DC 07/28/21 20:09 Olanzapine (ZyPREXA ZYDIS) 2.5 mg PRN Q2HR PRN PO ANXIETY / AGITATION 07/06/21 01:15 09/13/21 20:47 Trazodone HCl (Desyrel) 50 mg PRN QHS PRN PO INSOMNIA 07/06/21 01:15 09/09/21 20:37 Acetaminophen (Tylenol) 650 mg PRN Q4HRS PRN PO MILD PAIN 1-3 07/06/21 10:30 09/06/21 17:39 Aspirin (Aspirin Enteric Coated) 81 mg DAILY PO 07/07/21 09:00 09/13/21 08:54 Atorvastatin Calcium (Lipitor) 10 mg QHS PO 07/06/21 21:00 09/13/21 20:40 Carvedilol (Coreg) 3.125 mg BIDWMEALS PO 07/06/21 17:00 07/25/21 17:52 DC 07/25/21 17:22 Gabapentin (Neurontin) 300 mg BID PO 07/06/21 21:00 08/30/21 12:29 DC 08/30/21 08:20 Metformin HCl (Glucophage Xr) 500 mg DAILYWBKFT PO 07/07/21 08:00 09/13/21 08:54 Multi-Ingredient Ointment (Analgesic [place]) 1 inna PRN QID PRN TP PAIN 07/06/21 10:30 UNV Phenytoin Sodium (Dilantin) 500 mg HS PO 07/06/21 21:00 07/07/21 22:27 DC 07/07/21 20:05 Tamsulosin HCl (Flomax) 0.4 mg DAILY PO 07/07/21 09:00 09/13/21 08:54 Polyethylene Glycol (miraLAX) 17 gm PRN DAILY PRN PO 1ST CHOICE CONSTIPATION 07/06/21 10:45 08/13/21 20:07 Non-Formulary Medication (Pravastatin Sodium ) 40 mg DAILY PO 07/07/21 09:00 UNV Phenyleph/Shark Oil/Min Oil/Petrol (Preparation H) 1 inna PRN QID PRN RC RECTAL PAIN 07/06/21 15:15 Phenytoin Sodium (Dilantin) 400 mg HS PO 07/08/21 21:00 07/11/21 23:36 DC 07/11/21 20:35 Albuterol/ Ipratropium (Combivent Respimat 20-100 Mcg) 1 puff QID INH 07/08/21 13:00 09/13/21 20:36 Docusate Sodium (Colace) 100 mg DAILY PO 07/09/21 09:00 09/13/21 08:55 Guaifenesin (Mucinex Er) 600 mg BID PO 07/08/21 21:00 09/13/21 20:39 Magnesium Hydroxide (Milk Of Magnesia) 2,400 mg PRN QHS PRN PO 2nd CHOICE CONSTIPATION 07/08/21 19:30 Cancel Phenytoin Sodium (Dilantin) 200 mg HS PO 07/12/21 21:00 09/13/21 20:38 Phenytoin Sodium (Dilantin) 100 mg DAILY PO 07/12/21 09:00 09/13/21 08:54 Carvedilol (Coreg) 6.25 mg BIDWMEALS PO 07/25/21 18:00 07/25/21 18:07 DC Carvedilol (Coreg) 6.25 mg BIDWMEALS PO 07/26/21 08:00 08/02/21 09:02 DC 08/02/21 08:33 Mirtazapine (Remeron) 15 mg QHS PO 07/29/21 21:00 09/13/21 20:40 Carvedilol (Coreg) 12.5 mg BIDWMEALS PO 08/02/21 17:00 09/13/21 17:00 Albuterol Sulfate (Ventolin Hfa Inhaler) 2 puff PRN Q4HRS PRN INH SHORTNESS OF BREATH 08/02/21 09:15 09/11/21 08:38 Melatonin (Melatonin) 3 mg QHS PO 08/05/21 21:00 08/18/21 14:06 DC 08/17/21 20:06 Oxycodone/ Acetaminophen (Percocet 10/325) 1 tab PRN Q6HRS PRN PO MOD-SEV PAIN 08/15/21 00:15 08/15/21 00:23 Melatonin (Melatonin) 6 mg QHS PO 08/18/21 21:00 09/13/21 20:38 Influenza Virus Vaccine Quadrival (Flulaval Quad Syringe) 0.5 ml ONCE ONCE VAX IM 08/20/21 09:00 08/20/21 09:01 DC 08/20/21 11:35 Gabapentin (Neurontin) 100 mg 1X ONCE PO 08/30/21 14:00 08/30/21 14:01 Cancel Gabapentin (Neurontin) 200 mg 1X ONCE PO 08/30/21 21:00 08/30/21 21:01 Cancel Gabapentin (Neurontin) 300 mg BID PO 08/31/21 09:00 09/13/21 20:40 Gabapentin (Neurontin) 300 mg 1X ONCE PO 08/30/21 12:45 08/30/21 12:46 DC 08/30/21 12:42 I have reviewed the current psychotropics carefully including drug interactions. Risk benefit ratio favors no change other than as noted in my dictated progress note. Diagnosis: Problems: (1) Major depressive disorder in partial remission (2) Major neurocognitive disorder (3) Dementia in Alzheimer's disease with depression (4) Dementia in Alzheimer's disease with delusions (5) Dementia of the Alzheimer's type with early onset with behavioral disturbance (6) Dementia, vascular, with depression (7) Anxiety disorder, unspecified (8) Impulse control disorder, unspecified (9) Dementia, vascular, with delusions NIK LOYA MD Sep 13, 2021 21:25
--- NOTE | 2021-09-13 21:38 | PN ---
DATE: 09/12/2021 PSYCHIATRIC PROGRESS NOTE This late entry, 09/12/2021, covers the elements not covered in my initial note. SUBJECTIVE: I met with the patient in the evening of 09/12/2021. Per DEX Wesley, the patient slept 4-1/4 hours previous night. He remained somewhat withdrawn, does better during the day, gets more anxious and confused in the evening when he is more somatically preoccupied as well. He continues to obsess about discharge plan and some of which is very understandable and I again discussed this with him at length and previously had reviewed with social service staff and they are making diligent efforts to make this happen. REVIEW OF SYSTEMS: Ambulation impaired, in wheelchair. No CV, , pulmonary, eye system symptoms on review. MENTAL STATUS EXAMINATION: Oriented to himself and situation. Speech has some latency, coherent. Abstraction fair. Computation impaired. Language function intact. Mood and affect somewhat anxious, depressed, but improved. Labs reviewed. No suicidal ideation. IMPRESSION: Unchanged from initial note. PLAN: No change from initial note. KARMA DR: Melissa TID: [id number]
--- NOTE | 2021-09-13 22:45 | NUR ---
Patient is in his room on assumption of care, sitting in his wheelchair in the doorway. Compliant with assessments and medications taken whole. No agitation. Patient complained of anxiety d/t coughing fits. PRN Zydis given with HS meds, with good effect. He appears to be sleeping comfortably at present time. Will continue to monitor.
[2021-09-14 06:11] VITALS: BP 155/74
[2021-09-14] MEDS: CARVEDILOL 12.5 MG TABLET PO SCH ×2 (08:27→17:17)
[2021-09-14] MEDS: IPRATROPIUM/ALBUTEROL 20/100mcg/INH INHALER. INH SCH ×4 (08:27→21:09)
[2021-09-14] MEDS: metFORMIN XR 500 MG TAB.ER.24H PO SCH (08:27)
[2021-09-14] MEDS: DOCUSATE SODIUM 100 MG CAPSULE PO SCH (08:28)
[2021-09-14] MEDS: TAMSULOSIN 0.4 MG CAP.ER.24H. PO SCH (08:28)
[2021-09-14] MEDS: PHENYTOIN SODIUM EXTENDED 100 MG CAPSULE PO SCH ×2 (08:28→21:07)
[2021-09-14] MEDS: ASPIRIN ENTERIC COATED 81 MG TABLET.DR. PO SCH (08:28)
[2021-09-14] MEDS: GABAPENTIN 300 MG CAPSULE. PO SCH ×2 (08:28→21:06)
--- NOTE | 2021-09-14 11:21 | PN ---
DATE: 09/13/2021 PSYCHIATRIC PROGRESS NOTE This late entry 09/13 covers elements not covered in my initial note. I met with the patient on the evening of 09/13 in his room. Discussed with DEX Wesley. SUBJECTIVE: The patient slept 6-1/4 hours previous night. He remains more anxious, restless in the evening, does a little better in the morning but is quite obsessive, wanting to know what is his discharge plan. Again, this is understandable and I addressed with him. REVIEW OF SYSTEMS: Ambulation impaired. Some complaints of cough in the evening. No CV, , eye, ENT system symptoms on review. Slightly hard of hearing. MENTAL STATUS EXAMINATION: Oriented to himself and situation. Speech is coherent. Abstraction fair. Computation impaired. Language function intact. Attention span short. Mood and affect somewhat dysphoric and anxious. Labs reviewed. No suicidal ideation. IMPRESSION: Major depressive disorder, recurrent; major neurocognitive disorder, early Alzheimer, vascular with delusion, depression. Rest unchanged. PLAN: Continue psychotropics from initial note, received consent and discussed this with the patient. Await placement per social service staff. RAUL DR: Melissa TID: [id number]
--- NOTE | 2021-09-14 13:34 | NUR ---
Nursing note: Patient in dinning room for morning medications & assessment. He is compliant with medications taken whole. Patient is A/O to self only. He is calm & cooperative. He went to day room this morning. He has been fixated about discharge today and finding his phone. He propels self in w/c, self transfers. Patient denies pain/discomfort at this time. He is currently in bed resting with eyes closed. Will continue to monitor.
[2021-09-14 15:33] VITALS: BP 122/71
[2021-09-14] MEDS ORDERED: NYSTATIN TOPICAL POWDER 15GM BOTTLE. TP PRN (19:45)
[2021-09-14] MEDS: ALBUTEROL SULFATE 8GM INHALER. INH PRN (21:06)
[2021-09-14] MEDS: DULoxetine HCL 20 MG CAPSULE.DR PO SCH (21:07)
[2021-09-14] MEDS: MIRTAZAPINE 15 MG TABLET PO SCH (21:07)
[2021-09-14] MEDS: DULoxetine HCL 30 MG CAPSULE.DR PO SCH (21:08)
[2021-09-14] MEDS: ATORVASTATIN CALCIUM 10 MG TABLET. PO SCH (21:08)
[2021-09-14] MEDS: MELATONIN 3 MG TABLET PO SCH (21:08)
--- NOTE | 2021-09-14 21:20 | NUR ---
Patient is in his room on assumption of care, sitting in his wheelchair in the doorway. Compliant with assessments and medications taken whole. Patient is very attention seeking, anxious and delusional this evening. He is fixated on getting his phone returned despite several staff members reminding him that he has been a patient for months and his phone has been locked in the safe the entire time. He continues to be anxious about his coughing fits. When this nurse was assessing and medicating him, he began to talk about his DPOA, Harjeet (nephew). He stated "Maikel is just jealous of me, my integrity, and he thinks his girlfriend is making eyes at me. It's because I make good money, $600 a month. That's more than he makes working, and he has a good job. I don't know why he thinks I would want her anyway. She's not my style. She's black-headed and not too pretty. Besides, I got women that are more my style all over me at my apartment." PRN Lelandis given with HS meds, with good effect. He appears to be sleeping comfortably at present time. Will continue to monitor.
--- NOTE | 2021-09-14 21:30 | PDOC ---
Exam Note: Leo Note: Please also refer to the separate dictated note~for this date of service dictated separately.~Patient seen individually. Discussed the patient with Nursing staff reviewed the chart.~Reviewed interim history and current functioning. Reviewed vital signs,~Labs/ Radiology~and current medications noted below. Continue current treatment with the changes noted in the dictated addendum note Assessment: Vital Signs/I&O: Vital Signs Date Time Temp Pulse Resp B/P (MAP) Pulse Ox O2 Delivery O2 Flow Rate FiO2 09/14/21 17:17 62 122/71 09/14/21 15:33 97.8 16 96 Room Air I & O 09/13/21 09/13/21 09/14/21 14:59 22:59 06:59 Intake Total 1440 ml 480 ml Balance 1440 ml 480 ml Labs: Laboratory Tests Test 09/14/21 07:31 Glucose (Fingerstick) 111 mg/dL (70-99) H Current Medications: Meds: Laboratory Tests Test 09/14/21 07:31 Glucose (Fingerstick) 111 mg/dL Current Medications Medications (Trade) Dose Ordered Sig/Aparna Route PRN Reason Start Time Stop Time Status Last Admin Dose Admin Acetaminophen (Tylenol) 650 mg PRN Q6HRS PRN PO MILD PAIN / TEMP > 100.3'F 07/06/21 00:30 Cancel Multi-Ingredient Ointment (Analgesic [place]) 1 inna PRN QID PRN TP MUSCLE PAIN 07/06/21 00:30 09/06/21 17:39 Al Hydroxide/Mg Hydroxide (Mylanta Plus Xs) 15 ml PRN AFTMEALHC PRN PO DYSPEPSIA 07/06/21 00:30 09/12/21 02:36 Magnesium Hydroxide (Milk Of Magnesia) 2,400 mg PRN QHS PRN PO 2ND CHOICE CONSTIPATION 07/06/21 00:30 07/14/21 08:13 Duloxetine HCl (Cymbalta) 20 mg HS PO 07/06/21 21:00 09/14/21 21:07 Duloxetine HCl (Cymbalta) 30 mg HS PO 07/06/21 21:00 09/14/21 21:08 Mirtazapine (Remeron) 7.5 mg HS PO 07/06/21 21:00 07/29/21 18:15 DC 07/28/21 20:09 Olanzapine (ZyPREXA ZYDIS) 2.5 mg PRN Q2HR PRN PO ANXIETY / AGITATION 07/06/21 01:15 09/14/21 21:08 Trazodone HCl (Desyrel) 50 mg PRN QHS PRN PO INSOMNIA 07/06/21 01:15 09/09/21 20:37 Acetaminophen (Tylenol) 650 mg PRN Q4HRS PRN PO MILD PAIN 1-3 07/06/21 10:30 09/06/21 17:39 Aspirin (Aspirin Enteric Coated) 81 mg DAILY PO 07/07/21 09:00 09/14/21 08:28 Atorvastatin Calcium (Lipitor) 10 mg QHS PO 07/06/21 21:00 09/14/21 21:08 Carvedilol (Coreg) 3.125 mg BIDWMEALS PO 07/06/21 17:00 07/25/21 17:52 DC 07/25/21 17:22 Gabapentin (Neurontin) 300 mg BID PO 07/06/21 21:00 08/30/21 12:29 DC 08/30/21 08:20 Metformin HCl (Glucophage Xr) 500 mg DAILYWBKFT PO 07/07/21 08:00 09/14/21 08:27 Multi-Ingredient Ointment (Analgesic [place]) 1 inna PRN QID PRN TP PAIN 07/06/21 10:30 UNV Phenytoin Sodium (Dilantin) 500 mg HS PO 07/06/21 21:00 07/07/21 22:27 DC 07/07/21 20:05 Tamsulosin HCl (Flomax) 0.4 mg DAILY PO 07/07/21 09:00 09/14/21 08:28 Polyethylene Glycol (miraLAX) 17 gm PRN DAILY PRN PO 1ST CHOICE CONSTIPATION 07/06/21 10:45 08/13/21 20:07 Non-Formulary Medication (Pravastatin Sodium ) 40 mg DAILY PO 07/07/21 09:00 UNV Phenyleph/Shark Oil/Min Oil/Petrol (Preparation H) 1 inna PRN QID PRN RC RECTAL PAIN 07/06/21 15:15 Phenytoin Sodium (Dilantin) 400 mg HS PO 07/08/21 21:00 07/11/21 23:36 DC 07/11/21 20:35 Albuterol/ Ipratropium (Combivent Respimat 20-100 Mcg) 1 puff QID INH 07/08/21 13:00 09/14/21 21:09 Docusate Sodium (Colace) 100 mg DAILY PO 07/09/21 09:00 09/14/21 08:28 Guaifenesin (Mucinex Er) 600 mg BID PO 07/08/21 21:00 09/14/21 21:07 Magnesium Hydroxide (Milk Of Magnesia) 2,400 mg PRN QHS PRN PO 2nd CHOICE CONSTIPATION 07/08/21 19:30 Cancel Phenytoin Sodium (Dilantin) 200 mg HS PO 07/12/21 21:00 09/14/21 21:07 Phenytoin Sodium (Dilantin) 100 mg DAILY PO 07/12/21 09:00 09/14/21 08:28 Carvedilol (Coreg) 6.25 mg BIDWMEALS PO 07/25/21 18:00 07/25/21 18:07 DC Carvedilol (Coreg) 6.25 mg BIDWMEALS PO 07/26/21 08:00 08/02/21 09:02 DC 08/02/21 08:33 Mirtazapine (Remeron) 15 mg QHS PO 07/29/21 21:00 09/14/21 21:07 Carvedilol (Coreg) 12.5 mg BIDWMEALS PO 08/02/21 17:00 09/14/21 17:17 Albuterol Sulfate (Ventolin Hfa Inhaler) 2 puff PRN Q4HRS PRN INH SHORTNESS OF BREATH 08/02/21 09:15 09/11/21 08:38 Melatonin (Melatonin) 3 mg QHS PO 08/05/21 21:00 08/18/21 14:06 DC 08/17/21 20:06 Oxycodone/ Acetaminophen (Percocet 10/325) 1 tab PRN Q6HRS PRN PO MOD-SEV PAIN 08/15/21 00:15 08/15/21 00:23 Melatonin (Melatonin) 6 mg QHS PO 08/18/21 21:00 09/14/21 21:08 Influenza Virus Vaccine Quadrival (Flulaval Quad [id number] Syringe) 0.5 ml ONCE ONCE VAX IM 08/20/21 09:00 08/20/21 09:01 DC 08/20/21 11:35 Gabapentin (Neurontin) 100 mg 1X ONCE PO 08/30/21 14:00 08/30/21 14:01 Cancel Gabapentin (Neurontin) 200 mg 1X ONCE PO 08/30/21 21:00 08/30/21 21:01 Cancel Gabapentin (Neurontin) 300 mg BID PO 08/31/21 09:00 09/14/21 21:06 Gabapentin (Neurontin) 300 mg 1X ONCE PO 08/30/21 12:45 08/30/21 12:46 DC 08/30/21 12:42 Nystatin (Nystop) 1 inna BID PRN TP antifungal 09/14/21 19:45 I have reviewed the current psychotropics carefully including drug interactions. Risk benefit ratio favors no change other than as noted in my dictated progress note. Diagnosis: Problems: (1) Major depressive disorder in partial remission (2) Anxiety disorder, unspecified (3) Impulse control disorder, unspecified (4) Dementia, vascular, with depression (5) Dementia, vascular, with delusions (6) Major neurocognitive disorder (7) Dementia in Alzheimer's disease with depression (8) Dementia in Alzheimer's disease with delusions (9) Dementia of the Alzheimer's type with early onset with behavioral disturbance NIK LOYA MD Sep 14, 2021 21:30
[2021-09-15] MEDS: ALBUTEROL SULFATE 8GM INHALER. INH PRN ×2 (05:30→16:35)
[2021-09-15 05:54] LABS: BASO % 1 % (0-3); EOS # 0.8 x10^3/uL (0.0-0.7); EOS % 13 % (0-3); HEMATOCRIT 35.6 % (39.0-53.0); HEMOGLOBIN 11.8 g/dL (13.0-17.5); LYMPH # 2.1 x10^3/uL (1.0-4.8); LYMPH % 35 % (24-48); MEAN CORPUSCULAR HEMOGLOBIN 34 pg (25-35); MEAN CORPUSCULAR HGB CONC 33 g/dL (31-37); MEAN CORPUSCULAR VOLUME 103 fL (79-100); MONO # 0.6 x10^3/uL (0.0-1.1); MONO % 10 % (0-9); NEUT # 2.5 x10^3uL (1.8-7.7); NEUT % 42 % (31-73); PLATELET COUNT 105 x10^3/uL (140-400); RED BLOOD COUNT 3.47 x10^6/uL (4.30-5.70); RED CELL DISTRIBUTION WIDTH 13.9 % (11.5-14.5); WHITE BLOOD COUNT 6.1 x10^3/uL (4.0-11.0)
[2021-09-15 05:55] VITALS: BP 178/78
[2021-09-15 06:07] LABS: ALBUMIN 3.3 g/dL (3.4-5.0); ALBUMIN/GLOBULIN RATIO 0.9 (1.0-1.7); CALCIUM 9.1 mg/dL (8.5-10.1); CREATININE 1.4 mg/dL (0.7-1.3); GFR 48.9; PLT ESTIMATE DECREASED (ADEQUATE); POTASSIUM 4.7 mmol/L (3.5-5.1); TOTAL BILIRUBIN 0.3 mg/dL (0.2-1.0); TOTAL PROTEIN 6.9 g/dL (6.4-8.2)
[2021-09-15] MEDS: GABAPENTIN 300 MG CAPSULE. PO SCH ×2 (08:14→20:36)
[2021-09-15] MEDS: PHENYTOIN SODIUM EXTENDED 100 MG CAPSULE PO SCH ×2 (08:14→20:36)
[2021-09-15] MEDS: ASPIRIN ENTERIC COATED 81 MG TABLET.DR. PO SCH (08:14)
[2021-09-15] MEDS: DOCUSATE SODIUM 100 MG CAPSULE PO SCH (08:14)
[2021-09-15] MEDS: CARVEDILOL 12.5 MG TABLET PO SCH ×2 (08:14→16:40)
[2021-09-15] MEDS: metFORMIN XR 500 MG TAB.ER.24H PO SCH (08:14)
[2021-09-15] MEDS: IPRATROPIUM/ALBUTEROL 20/100mcg/INH INHALER. INH SCH ×4 (08:15→20:36)
[2021-09-15] MEDS: TAMSULOSIN 0.4 MG CAP.ER.24H. PO SCH (08:15)
--- NOTE | 2021-09-15 13:47 | NUR ---
Nursing note: Patient in dinning room for morning medications & assessment. He is compliant with medications taken whole. Patient is A/O to self only. He is calm & cooperative. He has not participated in groups today. He propels self in w/c, self transfers. Patient denies pain/discomfort at this time. He is currently in bed resting with eyes closed. Will continue to monitor.
[2021-09-15 15:42] VITALS: BP 160/77
--- NOTE | 2021-09-15 15:44 | NUR ---
WEEKLY ACTIVITY THERAPY NOTE Date of Admission: 07/06/21 Date of AT Assessment: 07/08 Precipitating behaviors that initiated intake and admission:Patient was reported to believe that his money was being stolen, his dog was being murdered, trying to leave the facility, disoriented, being tearful and crying frequently, and having sexually inappropriate conversations with other residents Goal aimed:increase socialization and engagement Initial Goal: Pt will participate in at least three individual or group Activity Therapy sessions per week. Goal changed 07/21:Pt will participate in at least five individual or group Activity Therapy sessions per week. Weekly progress towards goal: did not achieve, 12/03 Group participation level: 1 full Weekly highlights: sang along to music and identified states during songs and states activity Wednesday afternoon Behaviors observed: withdrawn to room at times Plan: no change to goal Beneficial adaptations:music
--- NOTE | 2021-09-15 17:13 | NUR ---
Treatment team update: Pt is eating 100% of meals and sleeping on average 5.5 hours per night. Pt has been delusional in thinking that his nephew is driving his mustang and that his girlfriend actually doesn't want him but the pt. Pt also believes he had his phone and cannot find it. He is attempting to get a ride to go back to [place]. Pt is medication compliant and is at times irritable; but not physically aggressive. More referrals for placement will be sent out as the original placement at [facility] did not hernandez out.
[2021-09-15] MEDS: DULoxetine HCL 20 MG CAPSULE.DR PO SCH (20:36)
[2021-09-15] MEDS: ATORVASTATIN CALCIUM 10 MG TABLET. PO SCH (20:36)
[2021-09-15] MEDS: DULoxetine HCL 30 MG CAPSULE.DR PO SCH (20:36)
[2021-09-15] MEDS: MELATONIN 3 MG TABLET PO SCH (20:36)
[2021-09-15] MEDS: MIRTAZAPINE 15 MG TABLET PO SCH (20:36)
--- NOTE | 2021-09-15 21:28 | PDOC ---
Exam Note: Leo Note: Please also refer to the separate dictated note~for this date of service dictated separately.~Patient seen individually. Discussed the patient with Nursing staff reviewed the chart.~Reviewed interim history and current functioning. Reviewed vital signs,~Labs/ Radiology~and current medications noted below. Continue current treatment with the changes noted in the dictated addendum note Assessment: Vital Signs/I&O: Vital Signs Date Time Temp Pulse Resp B/P (MAP) Pulse Ox O2 Delivery O2 Flow Rate FiO2 09/15/21 16:40 75 160/77 09/15/21 15:42 97.6 18 95 09/14/21 15:33 Room Air I & O 09/14/21 09/14/21 09/15/21 15:00 23:00 07:00 Intake Total 1080 ml 600 ml Balance 1080 ml 600 ml Labs: Laboratory Tests Test 09/15/21 05:45 09/15/21 07:19 White Blood Count 6.1 x10^3/uL (4.0-11.0) Red Blood Count 3.47 x10^6/uL (4.30-5.70) L Hemoglobin 11.8 g/dL (13.0-17.5) L Hematocrit 35.6 % (39.0-53.0) L Mean Corpuscular Volume 103 fL (79-100) H Mean Corpuscular Hemoglobin 34 pg (25-35) Mean Corpuscular Hemoglobin Concent 33 g/dL (31-37) Red Cell Distribution Width 13.9 % (11.5-14.5) Platelet Count 105 x10^3/uL (140-400) L Neutrophils (%) (Auto) 42 % (31-73) Lymphocytes (%) (Auto) 35 % (24-48) Monocytes (%) (Auto) 10 % (0-9) H Eosinophils (%) (Auto) 13 % (0-3) H Basophils (%) (Auto) 1 % (0-3) Neutrophils # (Auto) 2.5 x10^3uL (1.8-7.7) Lymphocytes # (Auto) 2.1 x10^3/uL (1.0-4.8) Monocytes # (Auto) 0.6 x10^3/uL (0.0-1.1) Eosinophils # (Auto) 0.8 x10^3/uL (0.0-0.7) H Basophils # (Auto) 0.0 x10^3/uL (0.0-0.2) Platelet Estimate Decreased (ADEQUATE) Sodium Level 144 mmol/L (136-145) Potassium Level 4.7 mmol/L (3.5-5.1) Chloride Level 107 mmol/L (98-107) Carbon Dioxide Level 30 mmol/L (21-32) Anion Gap 7 (6-14) Blood Urea Nitrogen 53 mg/dL (8-26) H Creatinine 1.4 mg/dL (0.7-1.3) H Estimated GFR (Cockcroft-Gault) 48.9 BUN/Creatinine Ratio 38 (6-20) H Glucose Level 121 mg/dL (70-99) H Calcium Level 9.1 mg/dL (8.5-10.1) Total Bilirubin 0.3 mg/dL (0.2-1.0) Aspartate Amino Transferase (AST) 17 U/L (15-37) Alanine Aminotransferase (ALT) 25 U/L (16-63) Alkaline Phosphatase 114 U/L (46-116) Total Protein 6.9 g/dL (6.4-8.2) Albumin 3.3 g/dL (3.4-5.0) L Albumin/Globulin Ratio 0.9 (1.0-1.7) L Glucose (Fingerstick) 113 mg/dL (70-99) H Current Medications: Meds: Laboratory Tests Test 09/15/21 05:45 09/15/21 07:19 White Blood Count 6.1 x10^3/uL Red Blood Count 3.47 x10^6/uL Hemoglobin 11.8 g/dL Hematocrit 35.6 % Mean Corpuscular Volume 103 fL Mean Corpuscular Hemoglobin 34 pg Mean Corpuscular Hemoglobin Concent 33 g/dL Red Cell Distribution Width 13.9 % Platelet Count 105 x10^3/uL Neutrophils (%) (Auto) 42 % Lymphocytes (%) (Auto) 35 % Monocytes (%) (Auto) 10 % Eosinophils (%) (Auto) 13 % Basophils (%) (Auto) 1 % Neutrophils # (Auto) 2.5 x10^3uL Lymphocytes # (Auto) 2.1 x10^3/uL Monocytes # (Auto) 0.6 x10^3/uL Eosinophils # (Auto) 0.8 x10^3/uL Basophils # (Auto) 0.0 x10^3/uL Platelet Estimate Decreased Sodium Level 144 mmol/L Potassium Level 4.7 mmol/L Chloride Level 107 mmol/L Carbon Dioxide Level 30 mmol/L Anion Gap 7 Blood Urea Nitrogen 53 mg/dL Creatinine 1.4 mg/dL Estimated GFR (Cockcroft-Gault) 48.9 BUN/Creatinine Ratio 38 Glucose Level 121 mg/dL Calcium Level 9.1 mg/dL Total Bilirubin 0.3 mg/dL Aspartate Amino Transf (AST/SGOT) 17 U/L Alanine Aminotransferase (ALT/SGPT) 25 U/L Alkaline Phosphatase 114 U/L Total Protein 6.9 g/dL Albumin 3.3 g/dL Albumin/Globulin Ratio 0.9 Glucose (Fingerstick) 113 mg/dL Current Medications Medications (Trade) Dose Ordered Sig/Aparna Route PRN Reason Start Time Stop Time Status Last Admin Dose Admin Acetaminophen (Tylenol) 650 mg PRN Q6HRS PRN PO MILD PAIN / TEMP > 100.3'F 07/06/21 00:30 Cancel Multi-Ingredient Ointment (Analgesic [place]) 1 inna PRN QID PRN TP MUSCLE PAIN 07/06/21 00:30 09/06/21 17:39 Al Hydroxide/Mg Hydroxide (Mylanta Plus Xs) 15 ml PRN AFTMEALHC PRN PO DYSPEPSIA 07/06/21 00:30 09/12/21 02:36 Magnesium Hydroxide (Milk Of Magnesia) 2,400 mg PRN QHS PRN PO 2ND CHOICE CONSTIPATION 07/06/21 00:30 07/14/21 08:13 Duloxetine HCl (Cymbalta) 20 mg HS PO 07/06/21 21:00 09/15/21 20:36 Duloxetine HCl (Cymbalta) 30 mg HS PO 07/06/21 21:00 09/15/21 20:36 Mirtazapine (Remeron) 7.5 mg HS PO 07/06/21 21:00 07/29/21 18:15 DC 07/28/21 20:09 Olanzapine (ZyPREXA ZYDIS) 2.5 mg PRN Q2HR PRN PO ANXIETY / AGITATION 07/06/21 01:15 09/14/21 21:08 Trazodone HCl (Desyrel) 50 mg PRN QHS PRN PO INSOMNIA 07/06/21 01:15 09/09/21 20:37 Acetaminophen (Tylenol) 650 mg PRN Q4HRS PRN PO MILD PAIN 1-3 07/06/21 10:30 09/06/21 17:39 Aspirin (Aspirin Enteric Coated) 81 mg DAILY PO 07/07/21 09:00 09/15/21 08:14 Atorvastatin Calcium (Lipitor) 10 mg QHS PO 07/06/21 21:00 09/15/21 20:36 Carvedilol (Coreg) 3.125 mg BIDWMEALS PO 07/06/21 17:00 07/25/21 17:52 DC 07/25/21 17:22 Gabapentin (Neurontin) 300 mg BID PO 07/06/21 21:00 08/30/21 12:29 DC 08/30/21 08:20 Metformin HCl (Glucophage Xr) 500 mg DAILYWBKFT PO 07/07/21 08:00 09/15/21 08:14 Multi-Ingredient Ointment (Analgesic [place]) 1 inna PRN QID PRN TP PAIN 07/06/21 10:30 UNV Phenytoin Sodium (Dilantin) 500 mg HS PO 07/06/21 21:00 07/07/21 22:27 DC 07/07/21 20:05 Tamsulosin HCl (Flomax) 0.4 mg DAILY PO 07/07/21 09:00 09/15/21 08:15 Polyethylene Glycol (miraLAX) 17 gm PRN DAILY PRN PO 1ST CHOICE CONSTIPATION 07/06/21 10:45 08/13/21 20:07 Non-Formulary Medication (Pravastatin Sodium ) 40 mg DAILY PO 07/07/21 09:00 UNV Phenyleph/Shark Oil/Min Oil/Petrol (Preparation H) 1 inna PRN QID PRN RC RECTAL PAIN 07/06/21 15:15 Phenytoin Sodium (Dilantin) 400 mg HS PO 07/08/21 21:00 07/11/21 23:36 DC 07/11/21 20:35 Albuterol/ Ipratropium (Combivent Respimat 20-100 Mcg) 1 puff QID INH 07/08/21 13:00 09/15/21 20:36 Docusate Sodium (Colace) 100 mg DAILY PO 07/09/21 09:00 09/15/21 08:14 Guaifenesin (Mucinex Er) 600 mg BID PO 07/08/21 21:00 09/15/21 20:36 Magnesium Hydroxide (Milk Of Magnesia) 2,400 mg PRN QHS PRN PO 2nd CHOICE CONSTIPATION 07/08/21 19:30 Cancel Phenytoin Sodium (Dilantin) 200 mg HS PO 07/12/21 21:00 09/15/21 20:36 Phenytoin Sodium (Dilantin) 100 mg DAILY PO 07/12/21 09:00 09/15/21 08:14 Carvedilol (Coreg) 6.25 mg BIDWMEALS PO 07/25/21 18:00 07/25/21 18:07 DC Carvedilol (Coreg) 6.25 mg BIDWMEALS PO 07/26/21 08:00 08/02/21 09:02 DC 08/02/21 08:33 Mirtazapine (Remeron) 15 mg QHS PO 07/29/21 21:00 09/15/21 20:36 Carvedilol (Coreg) 12.5 mg BIDWMEALS PO 08/02/21 17:00 09/15/21 16:40 Albuterol Sulfate (Ventolin Hfa Inhaler) 2 puff PRN Q4HRS PRN INH SHORTNESS OF BREATH 08/02/21 09:15 09/15/21 16:35 Melatonin (Melatonin) 3 mg QHS PO 08/05/21 21:00 08/18/21 14:06 DC 08/17/21 20:06 Oxycodone/ Acetaminophen (Percocet 10/325) 1 tab PRN Q6HRS PRN PO MOD-SEV PAIN 08/15/21 00:15 08/15/21 00:23 Melatonin (Melatonin) 6 mg QHS PO 08/18/21 21:00 09/15/21 20:36 Influenza Virus Vaccine Quadrival (Flulaval Quad [id number] Syringe) 0.5 ml ONCE ONCE VAX IM 08/20/21 09:00 08/20/21 09:01 DC 08/20/21 11:35 Gabapentin (Neurontin) 100 mg 1X ONCE PO 08/30/21 14:00 08/30/21 14:01 Cancel Gabapentin (Neurontin) 200 mg 1X ONCE PO 08/30/21 21:00 08/30/21 21:01 Cancel Gabapentin (Neurontin) 300 mg BID PO 08/31/21 09:00 09/15/21 20:36 Gabapentin (Neurontin) 300 mg 1X ONCE PO 08/30/21 12:45 08/30/21 12:46 DC 08/30/21 12:42 Nystatin (Nystop) 1 inna BID PRN TP antifungal 09/14/21 19:45 I have reviewed the current psychotropics carefully including drug interactions. Risk benefit ratio favors no change other than as noted in my dictated progress note. Diagnosis: Problems: (1) Impulse control disorder, unspecified (2) Anxiety disorder, unspecified (3) Dementia, vascular, with depression (4) Dementia, vascular, with delusions (5) Major neurocognitive disorder (6) Dementia in Alzheimer's disease with depression (7) Dementia in Alzheimer's disease with delusions (8) Dementia of the Alzheimer's type with early onset with behavioral disturbance (9) Major depressive disorder in partial remission NIK LOYA MD Sep 15, 2021 21:28
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
[2021-09-16 05:57] VITALS: BP 174/80
[2021-09-16] MEDS: TAMSULOSIN 0.4 MG CAP.ER.24H. PO SCH (08:22)
[2021-09-16] MEDS: CARVEDILOL 12.5 MG TABLET PO SCH ×2 (08:22→17:29)
[2021-09-16] MEDS: ASPIRIN ENTERIC COATED 81 MG TABLET.DR. PO SCH (08:23)
[2021-09-16] MEDS: PHENYTOIN SODIUM EXTENDED 100 MG CAPSULE PO SCH ×2 (08:23→21:10)
[2021-09-16] MEDS: metFORMIN XR 500 MG TAB.ER.24H PO SCH (08:23)
[2021-09-16] MEDS: DOCUSATE SODIUM 100 MG CAPSULE PO SCH (08:23)
[2021-09-16] MEDS: GABAPENTIN 300 MG CAPSULE. PO SCH ×2 (08:23→21:10)
[2021-09-16] MEDS: IPRATROPIUM/ALBUTEROL 20/100mcg/INH INHALER. INH SCH ×4 (08:42→21:11)
--- NOTE | 2021-09-16 09:00 | NUR ---
Pt has been present and visible on the unit. His interactions with others have been appropriate. He is compliant with whole medications and is able to make his needs known to staff. Pt absent of SI/HI/VH/AH/delusions/pain at this time. Plan of care continues, will pass to next shift.
--- NOTE | 2021-09-16 10:47 | PN ---
DATE: 09/14/2021 PSYCHIATRIC PROGRESS NOTE This late entry 09/14 covers elements not covered in my initial note. I met with the patient on the evening of 09/14 in his room. Discussed with DEX Thurman. The patient reportedly has been "cranky." He remains somewhat obsessed and anxious, repetitively asking about discharge plans, some of which is understandable. REVIEW OF SYSTEMS: Ambulation impaired, in wheelchair. Some hand tremors. No CV, , pulmonary, eyes, ENT system symptoms on review. MENTAL STATUS EXAMINATION: The patient is oriented to himself, situation. Initially thought I was a preacher. Later as I corrected him, he remembered I was a doctor. Speech is coherent. Abstraction fair. Computation impaired. Language function intact. Attention span fair. Mood somewhat obsessive, anxious. No suicidal ideation. LABORATORY DATA: Reviewed. IMPRESSION: Major depressive disorder, recurrent; major neurocognitive disorder, early Alzheimer, vascular with depression, delusions. Rest unchanged. PLAN: Continue psychotropics from initial note. He remains on Dilantin for his seizures, Remeron, gabapentin, Cymbalta, trazodone, Zyprexa as p.r.n. along with melatonin. Adjust further as clinically indicated. RAUL DR: Melissa TID: [id number]
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
[2021-09-16 15:36] VITALS: BP 114/67
[2021-09-16] MEDS: MELATONIN 3 MG TABLET PO SCH (21:09)
[2021-09-16] MEDS: DULoxetine HCL 20 MG CAPSULE.DR PO SCH (21:10)
[2021-09-16] MEDS: ATORVASTATIN CALCIUM 10 MG TABLET. PO SCH (21:10)
[2021-09-16] MEDS: DULoxetine HCL 30 MG CAPSULE.DR PO SCH (21:10)
[2021-09-16] MEDS: MIRTAZAPINE 15 MG TABLET PO SCH (21:10)
[2021-09-16] MEDS: ALBUTEROL SULFATE 8GM INHALER. INH PRN (21:11)
--- NOTE | 2021-09-16 22:46 | PDOC ---
Exam Note: Leo Note: Please also refer to the separate dictated note~for this date of service dictated separately.~Patient seen individually. Discussed the patient with Nursing staff reviewed the chart.~Reviewed interim history and current functioning. Reviewed vital signs,~Labs/ Radiology~and current medications noted below. Continue current treatment with the changes noted in the dictated addendum note Assessment: Vital Signs/I&O: Vital Signs Date Time Temp Pulse Resp B/P (MAP) Pulse Ox O2 Delivery O2 Flow Rate FiO2 09/16/21 17:29 77 114/67 09/16/21 15:36 98.3 16 93 09/14/21 15:33 Room Air I & O 09/15/21 09/15/21 09/16/21 15:00 23:00 07:00 Intake Total 1320 ml 1020 ml Balance 1320 ml 1020 ml Labs: Laboratory Tests Test 09/16/21 07:27 Glucose (Fingerstick) 118 mg/dL (70-99) H Current Medications: Meds: Laboratory Tests Test 09/16/21 07:27 Glucose (Fingerstick) 118 mg/dL Current Medications Medications (Trade) Dose Ordered Sig/Aparna Route PRN Reason Start Time Stop Time Status Last Admin Dose Admin Acetaminophen (Tylenol) 650 mg PRN Q6HRS PRN PO MILD PAIN / TEMP > 100.3'F 07/06/21 00:30 Cancel Multi-Ingredient Ointment (Analgesic [place]) 1 inna PRN QID PRN TP MUSCLE PAIN 07/06/21 00:30 09/06/21 17:39 Al Hydroxide/Mg Hydroxide (Mylanta Plus Xs) 15 ml PRN AFTMEALHC PRN PO DYSPEPSIA 07/06/21 00:30 09/12/21 02:36 Magnesium Hydroxide (Milk Of Magnesia) 2,400 mg PRN QHS PRN PO 2ND CHOICE CONSTIPATION 07/06/21 00:30 07/14/21 08:13 Duloxetine HCl (Cymbalta) 20 mg HS PO 07/06/21 21:00 09/16/21 21:10 Duloxetine HCl (Cymbalta) 30 mg HS PO 07/06/21 21:00 09/16/21 21:10 Mirtazapine (Remeron) 7.5 mg HS PO 07/06/21 21:00 07/29/21 18:15 DC 8/30/21 20:09 Olanzapine (ZyPREXA ZYDIS) 2.5 mg PRN Q2HR PRN PO ANXIETY / AGITATION 07/06/21 01:15 09/14/21 21:08 Trazodone HCl (Desyrel) 50 mg PRN QHS PRN PO INSOMNIA 07/06/21 01:15 09/09/21 20:37 Acetaminophen (Tylenol) 650 mg PRN Q4HRS PRN PO MILD PAIN 1-3 07/06/21 10:30 09/06/21 17:39 Aspirin (Aspirin Enteric Coated) 81 mg DAILY PO 07/07/21 09:00 09/16/21 08:23 Atorvastatin Calcium (Lipitor) 10 mg QHS PO 07/06/21 21:00 09/16/21 21:10 Carvedilol (Coreg) 3.125 mg BIDWMEALS PO 07/06/21 17:00 07/25/21 17:52 DC 07/25/21 17:22 Gabapentin (Neurontin) 300 mg BID PO 07/06/21 21:00 08/30/21 12:29 DC 08/30/21 08:20 Metformin HCl (Glucophage Xr) 500 mg DAILYWBKFT PO 07/07/21 08:00 09/16/21 08:23 Multi-Ingredient Ointment (Analgesic [place]) 1 inna PRN QID PRN TP PAIN 07/06/21 10:30 UNV Phenytoin Sodium (Dilantin) 500 mg HS PO 07/06/21 21:00 07/07/21 22:27 DC 07/07/21 20:05 Tamsulosin HCl (Flomax) 0.4 mg DAILY PO 07/07/21 09:00 09/16/21 08:22 Polyethylene Glycol (miraLAX) 17 gm PRN DAILY PRN PO 1ST CHOICE CONSTIPATION 07/06/21 10:45 08/13/21 20:07 Non-Formulary Medication (Pravastatin Sodium ) 40 mg DAILY PO 07/07/21 09:00 UNV Phenyleph/Shark Oil/Min Oil/Petrol (Preparation H) 1 inna PRN QID PRN RC RECTAL PAIN 07/06/21 15:15 Phenytoin Sodium (Dilantin) 400 mg HS PO 07/08/21 21:00 07/11/21 23:36 DC 07/11/21 20:35 Albuterol/ Ipratropium (Combivent Respimat 20-100 Mcg) 1 puff QID INH 07/08/21 13:00 09/16/21 21:11 Docusate Sodium (Colace) 100 mg DAILY PO 07/09/21 09:00 09/16/21 08:23 Guaifenesin (Mucinex Er) 600 mg BID PO 07/08/21 21:00 09/16/21 21:10 Magnesium Hydroxide (Milk Of Magnesia) 2,400 mg PRN QHS PRN PO 2nd CHOICE CONSTIPATION 07/08/21 19:30 Cancel Phenytoin Sodium (Dilantin) 200 mg HS PO 07/12/21 21:00 09/16/21 21:10 Phenytoin Sodium (Dilantin) 100 mg DAILY PO 07/12/21 09:00 09/16/21 08:23 Carvedilol (Coreg) 6.25 mg BIDWMEALS PO 07/25/21 18:00 07/25/21 18:07 DC Carvedilol (Coreg) 6.25 mg BIDWMEALS PO 07/26/21 08:00 08/02/21 09:02 DC 08/02/21 08:33 Mirtazapine (Remeron) 15 mg QHS PO 07/29/21 21:00 09/16/21 21:10 Carvedilol (Coreg) 12.5 mg BIDWMEALS PO 08/02/21 17:00 09/16/21 17:29 Albuterol Sulfate (Ventolin Hfa Inhaler) 2 puff PRN Q4HRS PRN INH SHORTNESS OF BREATH 08/02/21 09:15 09/16/21 21:11 Melatonin (Melatonin) 3 mg QHS PO 08/05/21 21:00 08/18/21 14:06 DC 08/17/21 20:06 Oxycodone/ Acetaminophen (Percocet 10/325) 1 tab PRN Q6HRS PRN PO MOD-SEV PAIN 08/15/21 00:15 08/15/21 00:23 Melatonin (Melatonin) 6 mg QHS PO 08/18/21 21:00 09/16/21 21:09 Influenza Virus Vaccine Quadrival (Flulaval Quad [id number] Syringe) 0.5 ml ONCE ONCE VAX IM 08/20/21 09:00 08/20/21 09:01 DC 08/20/21 11:35 Gabapentin (Neurontin) 100 mg 1X ONCE PO 08/30/21 14:00 08/30/21 14:01 Cancel Gabapentin (Neurontin) 200 mg 1X ONCE PO 08/30/21 21:00 08/30/21 21:01 Cancel Gabapentin (Neurontin) 300 mg BID PO 08/31/21 09:00 09/16/21 21:10 Gabapentin (Neurontin) 300 mg 1X ONCE PO 08/30/21 12:45 08/30/21 12:46 DC 08/30/21 12:42 Nystatin (Nystop) 1 inna BID PRN TP antifungal 09/14/21 19:45 I have reviewed the current psychotropics carefully including drug interactions. Risk benefit ratio favors no change other than as noted in my dictated progress note. 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
--- NOTE | 2021-09-16 23:01 | NUR ---
Nursing Note Pt in room in bed singing and yodelling, compliant with meds and assessment. States he's sick of being here, wants his truck and his phone. No other behaviors noted. In room ready for HS.
[2021-09-17 05:46] VITALS: BP 161/88
[2021-09-17] MEDS: IPRATROPIUM/ALBUTEROL 20/100mcg/INH INHALER. INH SCH ×4 (08:15→20:28)
[2021-09-17] MEDS: GABAPENTIN 300 MG CAPSULE. PO SCH ×2 (08:46→20:33)
[2021-09-17] MEDS: metFORMIN XR 500 MG TAB.ER.24H PO SCH (08:46)
[2021-09-17] MEDS: ASPIRIN ENTERIC COATED 81 MG TABLET.DR. PO SCH (08:46)
[2021-09-17] MEDS: PHENYTOIN SODIUM EXTENDED 100 MG CAPSULE PO SCH ×2 (08:47→20:31)
[2021-09-17] MEDS: DOCUSATE SODIUM 100 MG CAPSULE PO SCH (08:47)
[2021-09-17] MEDS: CARVEDILOL 12.5 MG TABLET PO SCH ×2 (08:47→16:47)
[2021-09-17] MEDS: TAMSULOSIN 0.4 MG CAP.ER.24H. PO SCH (08:48)
--- NOTE | 2021-09-17 09:09 | NUR ---
Pt has had an uneventful morning, observed to be eating breakfast and appetite appears adequate. Prior to breakfast a wet sounding gurggly cough was present. His interactions with others have been appropriate. He is compliant with whole medications. Pt absent of SI/HI/VH/AH/delusions/pain at this time. Plan of care continues, will pass to next shift.
--- NOTE | 2021-09-17 14:05 | NUR ---
ARI returned call to Hilda, admissions at [facility], to discuss pt and his behaviors on the unit. ARI explained that pt is not physically aggressive but can get irritated at times when redirected. ARI discussed pt activity level and mentioned that pt may qualify for SN; however, was not sure about AL at this time. Hilda believes that pt is able to discharge to them and agrees to that tomorrow is possible. She will contact the nephew to discuss admission and call ARI in the morning with transport time.
[2021-09-17 15:51] VITALS: BP 157/81
--- NOTE | 2021-09-17 16:06 | NUR ---
ARI received call from juan david Stevens rep at [facility] and discussed with ARI concerns re: pt finances. According to their business office and in talking to the nephew, he told them that pt has no money to pay for placement. ARI questioned further what the nephew said and she reports that he told the business office that pt had some assets in [place] and they are working on that. ARI questioned the reliance of that report as pt paid for Independent Living and had a caregiver; pt has not paid for his [facility] apartment since May so he should have money saved up. Hilda agreed that the story did not make sense to her either but they are looking into it further. They are still planning to take pt; however, need to clarify the financial piece before he can discharge there.
[2021-09-17] MEDS: DULoxetine HCL 30 MG CAPSULE.DR PO SCH (20:30)
[2021-09-17] MEDS: DULoxetine HCL 20 MG CAPSULE.DR PO SCH (20:30)
[2021-09-17] MEDS: MIRTAZAPINE 15 MG TABLET PO SCH (20:30)
[2021-09-17] MEDS: MELATONIN 3 MG TABLET PO SCH (20:31)
[2021-09-17] MEDS: ATORVASTATIN CALCIUM 10 MG TABLET. PO SCH (20:31)
--- NOTE | 2021-09-17 21:49 | PDOC ---
Exam Note: Leo Note: Please also refer to the separate dictated note~for this date of service dictated separately.~Patient seen individually. Discussed the patient with Nursing staff reviewed the chart.~Reviewed interim history and current functioning. Reviewed vital signs,~Labs/ Radiology~and current medications noted below. Continue current treatment with the changes noted in the dictated addendum note Assessment: Vital Signs/I&O: Vital Signs Date Time Temp Pulse Resp B/P (MAP) Pulse Ox O2 Delivery O2 Flow Rate FiO2 09/17/21 16:47 70 157/81 09/17/21 15:51 97.7 20 97 09/14/21 15:33 Room Air I & O 09/16/21 09/16/21 09/17/21 15:00 23:00 07:00 Intake Total 1307 ml 947 ml Balance 1307 ml 947 ml Labs: Laboratory Tests Test 09/17/21 07:16 Glucose (Fingerstick) 108 mg/dL (70-99) H Current Medications: Meds: Laboratory Tests Test 09/17/21 07:16 Glucose (Fingerstick) 108 mg/dL Current Medications Medications (Trade) Dose Ordered Sig/Aparna Route PRN Reason Start Time Stop Time Status Last Admin Dose Admin Acetaminophen (Tylenol) 650 mg PRN Q6HRS PRN PO MILD PAIN / TEMP > 100.3'F 07/06/21 00:30 Cancel Multi-Ingredient Ointment (Analgesic [place]) 1 inna PRN QID PRN TP MUSCLE PAIN 07/06/21 00:30 09/06/21 17:39 Al Hydroxide/Mg Hydroxide (Mylanta Plus Xs) 15 ml PRN AFTMEALHC PRN PO DYSPEPSIA 07/06/21 00:30 09/12/21 02:36 Magnesium Hydroxide (Milk Of Magnesia) 2,400 mg PRN QHS PRN PO 2ND CHOICE CONSTIPATION 07/06/21 00:30 07/14/21 08:13 Duloxetine HCl (Cymbalta) 20 mg HS PO 07/06/21 21:00 09/17/21 20:30 Duloxetine HCl (Cymbalta) 30 mg HS PO 07/06/21 21:00 09/17/21 20:30 Mirtazapine (Remeron) 7.5 mg HS PO 07/06/21 21:00 07/29/21 18:15 DC 07/28/21 20:09 Olanzapine (ZyPREXA ZYDIS) 2.5 mg PRN Q2HR PRN PO ANXIETY / AGITATION 07/06/21 01:15 09/14/21 21:08 Trazodone HCl (Desyrel) 50 mg PRN QHS PRN PO INSOMNIA 07/06/21 01:15 09/09/21 20:37 Acetaminophen (Tylenol) 650 mg PRN Q4HRS PRN PO MILD PAIN 1-3 07/06/21 10:30 09/06/21 17:39 Aspirin (Aspirin Enteric Coated) 81 mg DAILY PO 07/07/21 09:00 09/17/21 08:46 Atorvastatin Calcium (Lipitor) 10 mg QHS PO 07/06/21 21:00 09/17/21 20:31 Carvedilol (Coreg) 3.125 mg BIDWMEALS PO 07/06/21 17:00 07/25/21 17:52 DC 07/25/21 17:22 Gabapentin (Neurontin) 300 mg BID PO 07/06/21 21:00 08/30/21 12:29 DC 08/30/21 08:20 Metformin HCl (Glucophage Xr) 500 mg DAILYWBKFT PO 07/07/21 08:00 09/17/21 08:46 Multi-Ingredient Ointment (Analgesic [place]) 1 inna PRN QID PRN TP PAIN 07/06/21 10:30 UNV Phenytoin Sodium (Dilantin) 500 mg HS PO 07/06/21 21:00 07/07/21 22:27 DC 07/07/21 20:05 Tamsulosin HCl (Flomax) 0.4 mg DAILY PO 07/07/21 09:00 09/17/21 08:48 Polyethylene Glycol (miraLAX) 17 gm PRN DAILY PRN PO 1ST CHOICE CONSTIPATION 07/06/21 10:45 08/13/21 20:07 Non-Formulary Medication (Pravastatin Sodium ) 40 mg DAILY PO 07/07/21 09:00 UNV Phenyleph/Shark Oil/Min Oil/Petrol (Preparation H) 1 inna PRN QID PRN RC RECTAL PAIN 07/06/21 15:15 Phenytoin Sodium (Dilantin) 400 mg HS PO 07/08/21 21:00 07/11/21 23:36 DC 07/11/21 20:35 Albuterol/ Ipratropium (Combivent Respimat 20-100 Mcg) 1 puff QID INH 07/08/21 13:00 09/17/21 20:28 Docusate Sodium (Colace) 100 mg DAILY PO 07/09/21 09:00 09/17/21 08:47 Guaifenesin (Mucinex Er) 600 mg BID PO 07/08/21 21:00 09/17/21 20:31 Magnesium Hydroxide (Milk Of Magnesia) 2,400 mg PRN QHS PRN PO 2nd CHOICE CONSTIPATION 07/08/21 19:30 Cancel Phenytoin Sodium (Dilantin) 200 mg HS PO 07/12/21 21:00 09/17/21 20:31 Phenytoin Sodium (Dilantin) 100 mg DAILY PO 07/12/21 09:00 09/17/21 08:47 Carvedilol (Coreg) 6.25 mg BIDWMEALS PO 07/25/21 18:00 07/25/21 18:07 DC Carvedilol (Coreg) 6.25 mg BIDWMEALS PO 07/26/21 08:00 08/02/21 09:02 DC 08/02/21 08:33 Mirtazapine (Remeron) 15 mg QHS PO 07/29/21 21:00 09/17/21 20:30 Carvedilol (Coreg) 12.5 mg BIDWMEALS PO 08/02/21 17:00 09/17/21 16:47 Albuterol Sulfate (Ventolin Hfa Inhaler) 2 puff PRN Q4HRS PRN INH SHORTNESS OF BREATH 08/02/21 09:15 09/16/21 21:11 Melatonin (Melatonin) 3 mg QHS PO 08/05/21 21:00 08/18/21 14:06 DC 08/17/21 20:06 Oxycodone/ Acetaminophen (Percocet 10/325) 1 tab PRN Q6HRS PRN PO MOD-SEV PAIN 08/15/21 00:15 08/15/21 00:23 Melatonin (Melatonin) 6 mg QHS PO 08/18/21 21:00 09/17/21 20:31 Influenza Virus Vaccine Quadrival (Flulaval Quad [id number] Syringe) 0.5 ml ONCE ONCE VAX IM 08/20/21 09:00 08/20/21 09:01 DC 08/20/21 11:35 Gabapentin (Neurontin) 100 mg 1X ONCE PO 08/30/21 14:00 08/30/21 14:01 Cancel Gabapentin (Neurontin) 200 mg 1X ONCE PO 08/30/21 21:00 08/30/21 21:01 Cancel Gabapentin (Neurontin) 300 mg BID PO 08/31/21 09:00 09/17/21 20:33 Gabapentin (Neurontin) 300 mg 1X ONCE PO 08/30/21 12:45 08/30/21 12:46 DC 08/30/21 12:42 Nystatin (Nystop) 1 inna BID PRN TP antifungal 09/14/21 19:45 I have reviewed the current psychotropics carefully including drug interactions. Risk benefit ratio favors no change other than as noted in my dictated progress note. 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
[2021-09-18 06:24] VITALS: BP 125/71
[2021-09-18] MEDS: ALBUTEROL SULFATE 8GM INHALER. INH PRN ×2 (07:30→12:17)
[2021-09-18] MEDS: ASPIRIN ENTERIC COATED 81 MG TABLET.DR. PO SCH (08:45)
[2021-09-18] MEDS: DOCUSATE SODIUM 100 MG CAPSULE PO SCH (08:45)
[2021-09-18] MEDS: GABAPENTIN 300 MG CAPSULE. PO SCH ×2 (08:46→20:15)
[2021-09-18] MEDS: TAMSULOSIN 0.4 MG CAP.ER.24H. PO SCH (08:46)
[2021-09-18] MEDS: metFORMIN XR 500 MG TAB.ER.24H PO SCH (08:46)
[2021-09-18] MEDS: PHENYTOIN SODIUM EXTENDED 100 MG CAPSULE PO SCH ×2 (08:46→20:16)
[2021-09-18] MEDS: IPRATROPIUM/ALBUTEROL 20/100mcg/INH INHALER. INH SCH ×4 (08:47→20:15)
[2021-09-18] MEDS: CARVEDILOL 12.5 MG TABLET PO SCH ×2 (08:47→17:20)
[2021-09-18 16:09] VITALS: BP 155/79
--- NOTE | 2021-09-18 18:30 | NUR ---
Patient has been social, calm, compliant, and disorganized during this shift. Will continue to monitor and report to oncoming staff.
[2021-09-18] MEDS: MIRTAZAPINE 15 MG TABLET PO SCH (20:15)
[2021-09-18] MEDS: DULoxetine HCL 20 MG CAPSULE.DR PO SCH (20:15)
[2021-09-18] MEDS: ATORVASTATIN CALCIUM 10 MG TABLET. PO SCH (20:16)
[2021-09-18] MEDS: DULoxetine HCL 30 MG CAPSULE.DR PO SCH (20:16)
[2021-09-18] MEDS: MELATONIN 3 MG TABLET PO SCH (20:17)
--- NOTE | 2021-09-18 22:08 | PDOC ---
Exam Note: Leo Note: This note is a late entry for 09/16/2021 covers elements not covered in my initial note. Subjective: The patient was seen individually in the evening of 09/16/2021 with Jeanne KOWALSKI, discussed and reviewed the chart. The patient slept 6 hours previous night. Patient is quite paranoid previous night, believes someone had stolen his telephone, little better during the day today. Review of Systems: Positive for some hand tremors. Impaired ambulation. No CV, , pulmonary, eye, ENT system symptoms on review. Mental Status Exam: The patient is oriented to himself and situation. Patient talked at some length about discharge plans. He feels he can go home and take care of himself, drive his car, somewhat unrealistic in his goals and expectations. Insight and judgment, recent and remote memory, attention and concentration, fund of knowledge is poor consistent with his diagnoses. No suicidal or homicidal ideation though at times when frustrated he makes vague statements. Laboratory Data: Reviewed. Impression: Major depressive disorder, in partial remission. Major neurocognitive disorder, Alzheimer, vascular with delusion, depression, behavioral disturbance. Anxiety disorder unspecified. Impulse control disorder unspecified. Plan: Continue current psychotropics from initial note. Social service staff is actively trying to find placement. Assessment: Vital Signs/I&O: Vital Signs Date Time Temp Pulse Resp B/P (MAP) Pulse Ox O2 Delivery O2 Flow Rate FiO2 09/18/21 17:20 80 155/79 09/18/21 16:09 97.9 20 96 09/14/21 15:33 Room Air I & O 09/17/21 09/17/21 09/18/21 15:00 23:00 07:00 Intake Total 1200 ml 840 ml 50 ml Balance 1200 ml 840 ml 50 ml Labs: Laboratory Tests Test 09/18/21 07:33 Glucose (Fingerstick) 116 mg/dL (70-99) H Current Medications: Meds: Laboratory Tests Test 09/18/21 07:33 Glucose (Fingerstick) 116 mg/dL Current Medications Medications (Trade) Dose Ordered Sig/Aparna Route PRN Reason Start Time Stop Time Status Last Admin Dose Admin Acetaminophen (Tylenol) 650 mg PRN Q6HRS PRN PO MILD PAIN / TEMP > 100.3'F 07/06/21 00:30 Cancel Multi-Ingredient Ointment (Analgesic [place]) 1 inna PRN QID PRN TP MUSCLE PAIN 07/06/21 00:30 09/06/21 17:39 Al Hydroxide/Mg Hydroxide (Mylanta Plus Xs) 15 ml PRN AFTMEALHC PRN PO DYSPEPSIA 07/06/21 00:30 09/12/21 02:36 Magnesium Hydroxide (Milk Of Magnesia) 2,400 mg PRN QHS PRN PO 2ND CHOICE CONSTIPATION 07/06/21 00:30 07/14/21 08:13 Duloxetine HCl (Cymbalta) 20 mg HS PO 07/06/21 21:00 09/18/21 20:15 Duloxetine HCl (Cymbalta) 30 mg HS PO 07/06/21 21:00 09/18/21 20:16 Mirtazapine (Remeron) 7.5 mg HS PO 07/06/21 21:00 07/29/21 18:15 DC 07/28/21 20:09 Olanzapine (ZyPREXA ZYDIS) 2.5 mg PRN Q2HR PRN PO ANXIETY / AGITATION 07/06/21 01:15 09/14/21 21:08 Trazodone HCl (Desyrel) 50 mg PRN QHS PRN PO INSOMNIA 07/06/21 01:15 09/09/21 20:37 Acetaminophen (Tylenol) 650 mg PRN Q4HRS PRN PO MILD PAIN 1-3 07/06/21 10:30 09/06/21 17:39 Aspirin (Aspirin Enteric Coated) 81 mg DAILY PO 07/07/21 09:00 09/18/21 08:45 Atorvastatin Calcium (Lipitor) 10 mg QHS PO 07/06/21 21:00 09/18/21 20:16 Carvedilol (Coreg) 3.125 mg BIDWMEALS PO 07/06/21 17:00 07/25/21 17:52 DC 07/25/21 17:22 Gabapentin (Neurontin) 300 mg BID PO 07/06/21 21:00 08/30/21 12:29 DC 08/30/21 08:20 Metformin HCl (Glucophage Xr) 500 mg DAILYWBKFT PO 07/07/21 08:00 09/18/21 08:46 Multi-Ingredient Ointment (Analgesic [place]) 1 inna PRN QID PRN TP PAIN 07/06/21 10:30 UNV Phenytoin Sodium (Dilantin) 500 mg HS PO 07/06/21 21:00 07/07/21 22:27 DC 07/07/21 20:05 Tamsulosin HCl (Flomax) 0.4 mg DAILY PO 07/07/21 09:00 09/18/21 08:46 Polyethylene Glycol (miraLAX) 17 gm PRN DAILY PRN PO 1ST CHOICE CONSTIPATION 07/06/21 10:45 08/13/21 20:07 Non-Formulary Medication (Pravastatin Sodium ) 40 mg DAILY PO 07/07/21 09:00 UNV Phenyleph/Shark Oil/Min Oil/Petrol (Preparation H) 1 inna PRN QID PRN RC RECTAL PAIN 07/06/21 15:15 Phenytoin Sodium (Dilantin) 400 mg HS PO 07/08/21 21:00 07/11/21 23:36 DC 07/11/21 20:35 Albuterol/ Ipratropium (Combivent Respimat 20-100 Mcg) 1 puff QID INH 07/08/21 13:00 09/18/21 20:15 Docusate Sodium (Colace) 100 mg DAILY PO 07/09/21 09:00 09/18/21 08:45 Guaifenesin (Mucinex Er) 600 mg BID PO 07/08/21 21:00 09/18/21 20:16 Magnesium Hydroxide (Milk Of Magnesia) 2,400 mg PRN QHS PRN PO 2nd CHOICE CONSTIPATION 07/08/21 19:30 Cancel Phenytoin Sodium (Dilantin) 200 mg HS PO 07/12/21 21:00 09/18/21 20:16 Phenytoin Sodium (Dilantin) 100 mg DAILY PO 07/12/21 09:00 09/18/21 08:46 Carvedilol (Coreg) 6.25 mg BIDWMEALS PO 07/25/21 18:00 07/25/21 18:07 DC Carvedilol (Coreg) 6.25 mg BIDWMEALS PO 07/26/21 08:00 08/02/21 09:02 DC 08/02/21 08:33 Mirtazapine (Remeron) 15 mg QHS PO 07/29/21 21:00 09/18/21 20:15 Carvedilol (Coreg) 12.5 mg BIDWMEALS PO 08/02/21 17:00 09/18/21 17:20 Albuterol Sulfate (Ventolin Hfa Inhaler) 2 puff PRN Q4HRS PRN INH SHORTNESS OF BREATH 08/02/21 09:15 09/18/21 12:17 Melatonin (Melatonin) 3 mg QHS PO 08/05/21 21:00 08/18/21 14:06 DC 08/17/21 20:06 Oxycodone/ Acetaminophen (Percocet 10325) 1 tab PRN Q6HRS PRN PO MOD-SEV PAIN 08/15/21 00:15 08/15/21 00:23 Melatonin (Melatonin) 6 mg QHS PO 08/18/21 21:00 09/18/21 20:17 Influenza Virus Vaccine Quadrival (Flulaval Quad [id number] Syringe) 0.5 ml ONCE ONCE VAX IM 08/20/21 09:00 08/20/21 09:01 DC 08/20/21 11:35 Gabapentin (Neurontin) 100 mg 1X ONCE PO 08/30/21 14:00 08/30/21 14:01 Cancel Gabapentin (Neurontin) 200 mg 1X ONCE PO 08/30/21 21:00 08/30/21 21:01 Cancel Gabapentin (Neurontin) 300 mg BID PO 08/31/21 09:00 09/18/21 20:15 Gabapentin (Neurontin) 300 mg 1X ONCE PO 08/30/21 12:45 08/30/21 12:46 DC 08/30/21 12:42 Nystatin (Nystop) 1 inna BID PRN TP antifungal 09/14/21 19:45 I have reviewed the current psychotropics carefully including drug interactions. Risk benefit ratio favors no change other than as noted in my dictated progress note. 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
--- NOTE | 2021-09-18 22:30 | PDOC ---
Exam Note: Leo Note: Please also refer to the separate dictated note~for this date of service dictated separately.~Patient seen individually. Discussed the patient with Nursing staff reviewed the chart.~Reviewed interim history and current functioning. Reviewed vital signs,~Labs/ Radiology~and current medications noted below. Continue current treatment with the changes noted in the dictated addendum note Assessment: Vital Signs/I&O: Vital Signs Date Time Temp Pulse Resp B/P (MAP) Pulse Ox O2 Delivery O2 Flow Rate FiO2 09/18/21 17:20 80 155/79 09/18/21 16:09 97.9 20 96 09/14/21 15:33 Room Air I & O 09/17/21 09/17/21 09/18/21 15:00 23:00 07:00 Intake Total 1200 ml 840 ml 50 ml Balance 1200 ml 840 ml 50 ml Labs: Laboratory Tests Test 09/18/21 07:33 Glucose (Fingerstick) 116 mg/dL (70-99) H Current Medications: Meds: Laboratory Tests Test 09/18/21 07:33 Glucose (Fingerstick) 116 mg/dL Current Medications Medications (Trade) Dose Ordered Sig/Aparna Route PRN Reason Start Time Stop Time Status Last Admin Dose Admin Acetaminophen (Tylenol) 650 mg PRN Q6HRS PRN PO MILD PAIN / TEMP > 100.3'F 07/06/21 00:30 Cancel Multi-Ingredient Ointment (Analgesic [place]) 1 inna PRN QID PRN TP MUSCLE PAIN 07/06/21 00:30 09/06/21 17:39 Al Hydroxide/Mg Hydroxide (Mylanta Plus Xs) 15 ml PRN AFTMEALHC PRN PO DYSPEPSIA 07/06/21 00:30 09/12/21 02:36 Magnesium Hydroxide (Milk Of Magnesia) 2,400 mg PRN QHS PRN PO 2ND CHOICE CONSTIPATION 07/06/21 00:30 07/14/21 08:13 Duloxetine HCl (Cymbalta) 20 mg HS PO 07/06/21 21:00 09/18/21 20:15 Duloxetine HCl (Cymbalta) 30 mg HS PO 07/06/21 21:00 09/18/21 20:16 Mirtazapine (Remeron) 7.5 mg HS PO 07/06/21 21:00 07/29/21 18:15 DC 07/28/21 20:09 Olanzapine (ZyPREXA ZYDIS) 2.5 mg PRN Q2HR PRN PO ANXIETY / AGITATION 07/06/21 01:15 09/14/21 21:08 Trazodone HCl (Desyrel) 50 mg PRN QHS PRN PO INSOMNIA 07/06/21 01:15 09/09/21 20:37 Acetaminophen (Tylenol) 650 mg PRN Q4HRS PRN PO MILD PAIN 1-3 07/06/21 10:30 09/06/21 17:39 Aspirin (Aspirin Enteric Coated) 81 mg DAILY PO 07/07/21 09:00 09/18/21 08:45 Atorvastatin Calcium (Lipitor) 10 mg QHS PO 07/06/21 21:00 09/18/21 20:16 Carvedilol (Coreg) 3.125 mg BIDWMEALS PO 07/06/21 17:00 07/25/21 17:52 DC 07/25/21 17:22 Gabapentin (Neurontin) 300 mg BID PO 07/06/21 21:00 08/30/21 12:29 DC 08/30/21 08:20 Metformin HCl (Glucophage Xr) 500 mg DAILYWBKFT PO 07/07/21 08:00 09/18/21 08:46 Multi-Ingredient Ointment (Analgesic [place]) 1 inna PRN QID PRN TP PAIN 07/06/21 10:30 UNV Phenytoin Sodium (Dilantin) 500 mg HS PO 07/06/21 21:00 07/07/21 22:27 DC 07/07/21 20:05 Tamsulosin HCl (Flomax) 0.4 mg DAILY PO 07/07/21 09:00 09/18/21 08:46 Polyethylene Glycol (miraLAX) 17 gm PRN DAILY PRN PO 1ST CHOICE CONSTIPATION 07/06/21 10:45 08/13/21 20:07 Non-Formulary Medication (Pravastatin Sodium ) 40 mg DAILY PO 07/07/21 09:00 UNV Phenyleph/Shark Oil/Min Oil/Petrol (Preparation H) 1 inna PRN QID PRN RC RECTAL PAIN 07/06/21 15:15 Phenytoin Sodium (Dilantin) 400 mg HS PO 07/08/21 21:00 07/11/21 23:36 DC 07/11/21 20:35 Albuterol/ Ipratropium (Combivent Respimat 20-100 Mcg) 1 puff QID INH 07/08/21 13:00 09/18/21 20:15 Docusate Sodium (Colace) 100 mg DAILY PO 07/09/21 09:00 09/18/21 08:45 Guaifenesin (Mucinex Er) 600 mg BID PO 07/08/21 21:00 09/18/21 20:16 Magnesium Hydroxide (Milk Of Magnesia) 2,400 mg PRN QHS PRN PO 2nd CHOICE CONSTIPATION 07/08/21 19:30 Cancel Phenytoin Sodium (Dilantin) 200 mg HS PO 07/12/21 21:00 09/18/21 20:16 Phenytoin Sodium (Dilantin) 100 mg DAILY PO 07/12/21 09:00 09/18/21 08:46 Carvedilol (Coreg) 6.25 mg BIDWMEALS PO 07/25/21 18:00 07/25/21 18:07 DC Carvedilol (Coreg) 6.25 mg BIDWMEALS PO 07/26/21 08:00 08/02/21 09:02 DC 08/02/21 08:33 Mirtazapine (Remeron) 15 mg QHS PO 07/29/21 21:00 09/18/21 20:15 Carvedilol (Coreg) 12.5 mg BIDWMEALS PO 08/02/21 17:00 09/18/21 17:20 Albuterol Sulfate (Ventolin Hfa Inhaler) 2 puff PRN Q4HRS PRN INH SHORTNESS OF BREATH 08/02/21 09:15 09/18/21 12:17 Melatonin (Melatonin) 3 mg QHS PO 08/05/21 21:00 08/18/21 14:06 DC 08/17/21 20:06 Oxycodone/ Acetaminophen (Percocet 10/325) 1 tab PRN Q6HRS PRN PO MOD-SEV PAIN 08/15/21 00:15 08/15/21 00:23 Melatonin (Melatonin) 6 mg QHS PO 08/18/21 21:00 09/18/21 20:17 Influenza Virus Vaccine Quadrival (Flulaval Quad [id number] Syringe) 0.5 ml ONCE ONCE VAX IM 08/20/21 09:00 08/20/21 09:01 DC 08/20/21 11:35 Gabapentin (Neurontin) 100 mg 1X ONCE PO 08/30/21 14:00 08/30/21 14:01 Cancel Gabapentin (Neurontin) 200 mg 1X ONCE PO 08/30/21 21:00 08/30/21 21:01 Cancel Gabapentin (Neurontin) 300 mg BID PO 08/31/21 09:00 09/18/21 20:15 Gabapentin (Neurontin) 300 mg 1X ONCE PO 08/30/21 12:45 08/30/21 12:46 DC 08/30/21 12:42 Nystatin (Nystop) 1 inna BID PRN TP antifungal 09/14/21 19:45 I have reviewed the current psychotropics carefully including drug interactions. Risk benefit ratio favors no change other than as noted in my dictated progress note. 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
--- NOTE | 2021-09-18 23:57 | NUR ---
Patient is in his room on assumption of care, sitting in his wheelchair in the doorway. Compliant with assessments and medications taken whole. Cooperative with shower and HS care. Spent some time telling this nurse about his childhood. In pleasant spirits, laughing and joking around.No agitation. He appears to be sleeping comfortably at present time. Will continue to monitor.
[2021-09-19 06:01] VITALS: BP 173/90
[2021-09-19] MEDS: IPRATROPIUM/ALBUTEROL 20/100mcg/INH INHALER. INH SCH ×4 (08:08→20:22)
[2021-09-19] MEDS: ASPIRIN ENTERIC COATED 81 MG TABLET.DR. PO SCH (08:09)
[2021-09-19] MEDS: DOCUSATE SODIUM 100 MG CAPSULE PO SCH (08:09)
[2021-09-19] MEDS: TAMSULOSIN 0.4 MG CAP.ER.24H. PO SCH (08:09)
[2021-09-19] MEDS: CARVEDILOL 12.5 MG TABLET PO SCH ×2 (08:09→16:23)
[2021-09-19] MEDS: GABAPENTIN 300 MG CAPSULE. PO SCH ×2 (08:09→20:23)
[2021-09-19] MEDS: metFORMIN XR 500 MG TAB.ER.24H PO SCH (08:09)
[2021-09-19] MEDS: PHENYTOIN SODIUM EXTENDED 100 MG CAPSULE PO SCH ×2 (08:10→20:21)
--- NOTE | 2021-09-19 08:35 | PDOC ---
Exam Note: Leo Note: This note is a late entry for 09/17/2021 covers elements not covered in my initial note. Subjective: The patient was seen individually in the evening of 09/17/2021 with Maryjane KOWALSKI, discussed and reviewed the chart. The patient slept 5-1/4 hours previous night. Patient is compliant with his medications. Nursing staff indicated retirement had accepted him but it did not go through due to his financial issues. Patient is quite upset about this, stated he can take care of himself in his home. I had a lengthy discussion with him evening of 09/17. Review of Systems: Impaired ambulation in wheelchair. No CV, , pulmonary, eye, ENT system symptoms on review. Mental Status Exam: The patient is oriented to himself and situation. Speech coherent. Abstraction fair. Computation impaired. Language function intact. Attention span short. Mood and affect withdrawn though he is more interactive, seated in the hallway talking to other patients. Laboratory Data: Reviewed. Impression: Major depressive disorder, in partial remission. Major neurocognitive disorder, Alzheimer, vascular with delusion, depression, behavioral disturbance. Anxiety disorder unspecified. Impulse control disorder unspecified. Plan: No change from initial note. We will defer to social service staff or transition to a lower level of care. Assessment: Vital Signs/I&O: Vital Signs Date Time Temp Pulse Resp B/P (MAP) Pulse Ox O2 Delivery O2 Flow Rate FiO2 09/19/21 08:09 76 173/90 09/19/21 06:01 97.8 22 96 09/14/21 15:33 Room Air I & O 09/18/21 09/18/21 09/19/21 15:00 23:00 07:00 Intake Total 960 ml 840 ml Balance 960 ml 840 ml Labs: Laboratory Tests Test 09/19/21 07:16 Glucose (Fingerstick) 138 mg/dL (70-99) H Current Medications: Meds: Laboratory Tests Test 09/19/21 07:16 Glucose (Fingerstick) 138 mg/dL Current Medications Medications (Trade) Dose Ordered Sig/Aparna Route PRN Reason Start Time Stop Time Status Last Admin Dose Admin Acetaminophen (Tylenol) 650 mg PRN Q6HRS PRN PO MILD PAIN / TEMP > 100.3'F 07/06/21 00:30 Cancel Multi-Ingredient Ointment (Analgesic [place]) 1 inna PRN QID PRN TP MUSCLE PAIN 07/06/21 00:30 09/06/21 17:39 Al Hydroxide/Mg Hydroxide (Mylanta Plus Xs) 15 ml PRN AFTMEALHC PRN PO DYSPEPSIA 07/06/21 00:30 09/12/21 02:36 Magnesium Hydroxide (Milk Of Magnesia) 2,400 mg PRN QHS PRN PO 2ND CHOICE CONSTIPATION 07/06/21 00:30 07/14/21 08:13 Duloxetine HCl (Cymbalta) 20 mg HS PO 07/06/21 21:00 09/18/21 20:15 Duloxetine HCl (Cymbalta) 30 mg HS PO 07/06/21 21:00 09/18/21 20:16 Mirtazapine (Remeron) 7.5 mg HS PO 07/06/21 21:00 07/29/21 18:15 DC 07/28/21 20:09 Olanzapine (ZyPREXA ZYDIS) 2.5 mg PRN Q2HR PRN PO ANXIETY / AGITATION 07/06/21 01:15 09/14/21 21:08 Trazodone HCl (Desyrel) 50 mg PRN QHS PRN PO INSOMNIA 07/06/21 01:15 09/09/21 20:37 Acetaminophen (Tylenol) 650 mg PRN Q4HRS PRN PO MILD PAIN 1-3 07/06/21 10:30 09/06/21 17:39 Aspirin (Aspirin Enteric Coated) 81 mg DAILY PO 07/07/21 09:00 09/19/21 08:09 Atorvastatin Calcium (Lipitor) 10 mg QHS PO 07/06/21 21:00 09/18/21 20:16 Carvedilol (Coreg) 3.125 mg BIDWMEALS PO 07/06/21 17:00 07/25/21 17:52 DC 07/25/21 17:22 Gabapentin (Neurontin) 300 mg BID PO 07/06/21 21:00 08/30/21 12:29 DC 08/30/21 08:20 Metformin HCl (Glucophage Xr) 500 mg DAILYWBKFT PO 07/07/21 08:00 09/19/21 08:09 Multi-Ingredient Ointment (Analgesic [place]) 1 inna PRN QID PRN TP PAIN 07/06/21 10:30 UNV Phenytoin Sodium (Dilantin) 500 mg HS PO 07/06/21 21:00 07/07/21 22:27 DC 07/07/21 20:05 Tamsulosin HCl (Flomax) 0.4 mg DAILY PO 07/07/21 09:00 09/19/21 08:09 Polyethylene Glycol (miraLAX) 17 gm PRN DAILY PRN PO 1ST CHOICE CONSTIPATION 07/06/21 10:45 08/13/21 20:07 Non-Formulary Medication (Pravastatin Sodium ) 40 mg DAILY PO 07/07/21 09:00 UNV Phenyleph/Shark Oil/Min Oil/Petrol (Preparation H) 1 inna PRN QID PRN RC RECTAL PAIN 07/06/21 15:15 Phenytoin Sodium (Dilantin) 400 mg HS PO 07/08/21 21:00 07/11/21 23:36 DC 07/11/21 20:35 Albuterol/ Ipratropium (Combivent Respimat 20-100 Mcg) 1 puff QID INH 07/08/21 13:00 09/19/21 08:08 Docusate Sodium (Colace) 100 mg DAILY PO 07/09/21 09:00 09/19/21 08:09 Guaifenesin (Mucinex Er) 600 mg BID PO 07/08/21 21:00 09/19/21 08:09 Magnesium Hydroxide (Milk Of Magnesia) 2,400 mg PRN QHS PRN PO 2nd CHOICE CONSTIPATION 07/08/21 19:30 Cancel Phenytoin Sodium (Dilantin) 200 mg HS PO 07/12/21 21:00 09/18/21 20:16 Phenytoin Sodium (Dilantin) 100 mg DAILY PO 07/12/21 09:00 09/19/21 08:10 Carvedilol (Coreg) 6.25 mg BIDWMEALS PO 07/25/21 18:00 07/25/21 18:07 DC Carvedilol (Coreg) 6.25 mg BIDWMEALS PO 07/26/21 08:00 08/02/21 09:02 DC 08/02/21 08:33 Mirtazapine (Remeron) 15 mg QHS PO 07/29/21 21:00 09/18/21 20:15 Carvedilol (Coreg) 12.5 mg BIDWMEALS PO 08/02/21 17:00 09/19/21 08:09 Albuterol Sulfate (Ventolin Hfa Inhaler) 2 puff PRN Q4HRS PRN INH SHORTNESS OF BREATH 08/02/21 09:15 09/18/21 12:17 Melatonin (Melatonin) 3 mg QHS PO 08/05/21 21:00 08/18/21 14:06 DC 08/17/21 20:06 Oxycodone/ Acetaminophen (Percocet 10) 1 tab PRN Q6HRS PRN PO MOD-SEV PAIN 08/15/21 00:15 08/15/21 00:23 Melatonin (Melatonin) 6 mg QHS PO 08/18/21 21:00 09/18/21 20:17 Influenza Virus Vaccine Quadrival (Flulaval Quad [id number] Syringe) 0.5 ml ONCE ONCE VAX IM 08/20/21 09:00 08/20/21 09:01 DC 08/20/21 11:35 Gabapentin (Neurontin) 100 mg 1X ONCE PO 08/30/21 14:00 08/30/21 14:01 Cancel Gabapentin (Neurontin) 200 mg 1X ONCE PO 08/30/21 21:00 08/30/21 21:01 Cancel Gabapentin (Neurontin) 300 mg BID PO 08/31/21 09:00 09/19/21 08:09 Gabapentin (Neurontin) 300 mg 1X ONCE PO 08/30/21 12:45 08/30/21 12:46 DC 08/30/21 12:42 Nystatin (Nystop) 1 inna BID PRN TP antifungal 09/14/21 19:45 I have reviewed the current psychotropics carefully including drug interactions. Risk benefit ratio favors no change other than as noted in my dictated progress note. 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
[2021-09-19] MEDS: ALBUTEROL SULFATE 8GM INHALER. INH PRN (12:23)
--- NOTE | 2021-09-19 13:16 | NUR ---
ARI followed up with Hilda at [facility] who reports that the Business office at the facility has considered pt as a financial denial. The family continue to maintain pt does not have the finances which means there is not secondary payor source to approve placement. ARI will get [employer] involved in getting the process for Medicaid started. Once pt can be Medicaid pending, Hilda is willing to re-evaluate pt for placement.
[2021-09-19 15:51] VITALS: BP 139/72
[2021-09-19] MEDS: MAG HYDROX/AL HYDROX/SIMETH 30 ML ORAL.SUSP PO PRN (16:24)
--- NOTE | 2021-09-19 18:28 | NUR ---
Patient has been social, calm, compliant, and disorganized during this shift. He participated in group activities and occasionally sang or yodeled in the day room or garcia. Will continue to monitor and report to oncoming staff.
[2021-09-19] MEDS: MELATONIN 3 MG TABLET PO SCH (20:20)
[2021-09-19] MEDS: MIRTAZAPINE 15 MG TABLET PO SCH (20:20)
[2021-09-19] MEDS: DULoxetine HCL 20 MG CAPSULE.DR PO SCH (20:20)
[2021-09-19] MEDS: DULoxetine HCL 30 MG CAPSULE.DR PO SCH (20:20)
[2021-09-19] MEDS: ATORVASTATIN CALCIUM 10 MG TABLET. PO SCH (20:21)
--- NOTE | 2021-09-19 21:44 | PDOC ---
Exam Note: Leo Note: Please also refer to the separate dictated note~for this date of service dictated separately.~Patient seen individually. Discussed the patient with Nursing staff reviewed the chart.~Reviewed interim history and current functioning. Reviewed vital signs,~Labs/ Radiology~and current medications noted below. Continue current treatment with the changes noted in the dictated addendum note Assessment: Vital Signs/I&O: Vital Signs Date Time Temp Pulse Resp B/P (MAP) Pulse Ox O2 Delivery O2 Flow Rate FiO2 09/19/21 16:23 70 139/72 09/19/21 15:51 98.3 19 97 09/14/21 15:33 Room Air I & O 09/18/21 09/18/21 09/19/21 15:00 23:00 07:00 Intake Total 960 ml 840 ml Balance 960 ml 840 ml Labs: Laboratory Tests Test 09/19/21 07:16 Glucose (Fingerstick) 138 mg/dL (70-99) H Current Medications: Meds: Laboratory Tests Test 09/19/21 07:16 Glucose (Fingerstick) 138 mg/dL Current Medications Medications (Trade) Dose Ordered Sig/Aparna Route PRN Reason Start Time Stop Time Status Last Admin Dose Admin Acetaminophen (Tylenol) 650 mg PRN Q6HRS PRN PO MILD PAIN / TEMP > 100.3'F 07/06/21 00:30 Cancel Multi-Ingredient Ointment (Analgesic [place]) 1 inna PRN QID PRN TP MUSCLE PAIN 07/06/21 00:30 09/06/21 17:39 Al Hydroxide/Mg Hydroxide (Mylanta Plus Xs) 15 ml PRN AFTMEALHC PRN PO DYSPEPSIA 07/06/21 00:30 09/19/21 16:24 Magnesium Hydroxide (Milk Of Magnesia) 2,400 mg PRN QHS PRN PO 2ND CHOICE CONSTIPATION 07/06/21 00:30 07/14/21 08:13 Duloxetine HCl (Cymbalta) 20 mg HS PO 07/06/21 21:00 09/19/21 20:20 Duloxetine HCl (Cymbalta) 30 mg HS PO 07/06/21 21:00 09/19/21 20:20 Mirtazapine (Remeron) 7.5 mg HS PO 07/06/21 21:00 07/29/21 18:15 DC 07/28/21 20:09 Olanzapine (ZyPREXA ZYDIS) 2.5 mg PRN Q2HR PRN PO ANXIETY / AGITATION 07/06/21 01:15 09/14/21 21:08 Trazodone HCl (Desyrel) 50 mg PRN QHS PRN PO INSOMNIA 07/06/21 01:15 09/09/21 20:37 Acetaminophen (Tylenol) 650 mg PRN Q4HRS PRN PO MILD PAIN 1-3 07/06/21 10:30 09/06/21 17:39 Aspirin (Aspirin Enteric Coated) 81 mg DAILY PO 07/07/21 09:00 09/19/21 08:09 Atorvastatin Calcium (Lipitor) 10 mg QHS PO 07/06/21 21:00 09/19/21 20:21 Carvedilol (Coreg) 3.125 mg BIDWMEALS PO 07/06/21 17:00 07/25/21 17:52 DC 07/25/21 17:22 Gabapentin (Neurontin) 300 mg BID PO 07/06/21 21:00 08/30/21 12:29 DC 08/30/21 08:20 Metformin HCl (Glucophage Xr) 500 mg DAILYWBKFT PO 07/07/21 08:00 09/19/21 08:09 Multi-Ingredient Ointment (Analgesic [place]) 1 inna PRN QID PRN TP PAIN 07/06/21 10:30 UNV Phenytoin Sodium (Dilantin) 500 mg HS PO 07/06/21 21:00 07/07/21 22:27 DC 07/07/21 20:05 Tamsulosin HCl (Flomax) 0.4 mg DAILY PO 07/07/21 09:00 09/19/21 08:09 Polyethylene Glycol (miraLAX) 17 gm PRN DAILY PRN PO 1ST CHOICE CONSTIPATION 07/06/21 10:45 08/13/21 20:07 Non-Formulary Medication (Pravastatin Sodium ) 40 mg DAILY PO 07/07/21 09:00 UNV Phenyleph/Shark Oil/Min Oil/Petrol (Preparation H) 1 inna PRN QID PRN RC RECTAL PAIN 07/06/21 15:15 Phenytoin Sodium (Dilantin) 400 mg HS PO 07/08/21 21:00 07/11/21 23:36 DC 07/11/21 20:35 Albuterol/ Ipratropium (Combivent Respimat 20-100 Mcg) 1 puff QID INH 07/08/21 13:00 09/19/21 20:22 Docusate Sodium (Colace) 100 mg DAILY PO 07/09/21 09:00 09/19/21 08:09 Guaifenesin (Mucinex Er) 600 mg BID PO 07/08/21 21:00 09/19/21 20:21 Magnesium Hydroxide (Milk Of Magnesia) 2,400 mg PRN QHS PRN PO 2nd CHOICE CONSTIPATION 07/08/21 19:30 Cancel Phenytoin Sodium (Dilantin) 200 mg HS PO 07/12/21 21:00 09/19/21 20:21 Phenytoin Sodium (Dilantin) 100 mg DAILY PO 07/12/21 09:00 09/19/21 08:10 Carvedilol (Coreg) 6.25 mg BIDWMEALS PO 07/25/21 18:00 07/25/21 18:07 DC Carvedilol (Coreg) 6.25 mg BIDWMEALS PO 07/26/21 08:00 08/02/21 09:02 DC 08/02/21 08:33 Mirtazapine (Remeron) 15 mg QHS PO 07/29/21 21:00 09/19/21 20:20 Carvedilol (Coreg) 12.5 mg BIDWMEALS PO 08/02/21 17:00 09/19/21 16:23 Albuterol Sulfate (Ventolin Hfa Inhaler) 2 puff PRN Q4HRS PRN INH SHORTNESS OF BREATH 08/02/21 09:15 09/19/21 12:23 Melatonin (Melatonin) 3 mg QHS PO 08/05/21 21:00 08/18/21 14:06 DC 08/17/21 20:06 Oxycodone/ Acetaminophen (Percocet 10/325) 1 tab PRN Q6HRS PRN PO MOD-SEV PAIN 08/15/21 00:15 08/15/21 00:23 Melatonin (Melatonin) 6 mg QHS PO 08/18/21 21:00 09/19/21 20:20 Influenza Virus Vaccine Quadrival (Flulaval Quad [id number] Syringe) 0.5 ml ONCE ONCE VAX IM 08/20/21 09:00 08/20/21 09:01 DC 08/20/21 11:35 Gabapentin (Neurontin) 100 mg 1X ONCE PO 08/30/21 14:00 08/30/21 14:01 Cancel Gabapentin (Neurontin) 200 mg 1X ONCE PO 08/30/21 21:00 08/30/21 21:01 Cancel Gabapentin (Neurontin) 300 mg BID PO 08/31/21 09:00 09/19/21 20:23 Gabapentin (Neurontin) 300 mg 1X ONCE PO 08/30/21 12:45 08/30/21 12:46 DC 08/30/21 12:42 Nystatin (Nystop) 1 inna BID PRN TP antifungal 09/14/21 19:45 I have reviewed the current psychotropics carefully including drug interactions. Risk benefit ratio favors no change other than as noted in my dictated progress note. 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
[2021-09-20] MEDS: ALBUTEROL SULFATE 8GM INHALER. INH PRN ×2 (01:14→22:01)
--- NOTE | 2021-09-20 03:16 | NUR ---
Nursing Note The patient was located in his room and the hallway for his assessment. The patient was pleasant during interactions and took his medications whole. The patient awoke later in the shift and voiced shortness of breath. PRN albuterol inhaler was given. The patient is currently sleeping in his room.
[2021-09-20 06:03] VITALS: BP 144/77
[2021-09-20] MEDS: TAMSULOSIN 0.4 MG CAP.ER.24H. PO SCH (08:47)
[2021-09-20] MEDS: PHENYTOIN SODIUM EXTENDED 100 MG CAPSULE PO SCH ×2 (08:47→19:44)
[2021-09-20] MEDS: ASPIRIN ENTERIC COATED 81 MG TABLET.DR. PO SCH (08:47)
[2021-09-20] MEDS: DOCUSATE SODIUM 100 MG CAPSULE PO SCH (08:47)
[2021-09-20] MEDS: metFORMIN XR 500 MG TAB.ER.24H PO SCH (08:47)
[2021-09-20] MEDS: GABAPENTIN 300 MG CAPSULE. PO SCH ×2 (08:47→19:44)
[2021-09-20] MEDS: CARVEDILOL 12.5 MG TABLET PO SCH ×2 (08:48→16:57)
[2021-09-20] MEDS: IPRATROPIUM/ALBUTEROL 20/100mcg/INH INHALER. INH SCH ×4 (08:48→19:43)
[2021-09-20 15:15] VITALS: BP 116/59
--- NOTE | 2021-09-20 18:09 | NUR ---
Patient has been social, calm, compliant, and disorganized during this shift. During his shower, he asked a CONFIGURATION RELEASE MANAGER if he could squeeze her breast then said that he'll probably get in trouble for asking that. Patient spent the late afternoon withdrawn to his room. After dinner he has been mildly agitated with other patients that have wandered into his room. Will continue to monitor and report to oncoming staff.
[2021-09-20] MEDS: DULoxetine HCL 30 MG CAPSULE.DR PO SCH (19:43)
[2021-09-20] MEDS: DULoxetine HCL 20 MG CAPSULE.DR PO SCH (19:43)
[2021-09-20] MEDS: MELATONIN 3 MG TABLET PO SCH (19:44)
[2021-09-20] MEDS: MIRTAZAPINE 15 MG TABLET PO SCH (19:44)
[2021-09-20] MEDS: ATORVASTATIN CALCIUM 10 MG TABLET. PO SCH (19:44)
--- NOTE | 2021-09-20 22:08 | PDOC ---
Exam Note: Leo Note: Please also refer to the separate dictated note~for this date of service dictated separately.~Patient seen individually. Discussed the patient with Nursing staff reviewed the chart.~Reviewed interim history and current functioning. Reviewed vital signs,~Labs/ Radiology~and current medications noted below. Continue current treatment with the changes noted in the dictated addendum note Assessment: Vital Signs/I&O: Vital Signs Date Time Temp Pulse Resp B/P (MAP) Pulse Ox O2 Delivery O2 Flow Rate FiO2 09/20/21 16:57 68 116/59 09/20/21 15:15 97.8 20 99 09/14/21 15:33 Room Air I & O 09/19/21 09/19/21 09/20/21 15:00 23:00 07:00 Intake Total 720 ml 820 ml Balance 720 ml 820 ml Labs: Laboratory Tests Test 09/20/21 07:22 Glucose (Fingerstick) 99 mg/dL (70-99) Current Medications: Meds: Laboratory Tests Test 09/20/21 07:22 Glucose (Fingerstick) 99 mg/dL Current Medications Medications (Trade) Dose Ordered Sig/Aparna Route PRN Reason Start Time Stop Time Status Last Admin Dose Admin Acetaminophen (Tylenol) 650 mg PRN Q6HRS PRN PO MILD PAIN / TEMP > 100.3'F 07/06/21 00:30 Cancel Multi-Ingredient Ointment (Analgesic [place]) 1 inna PRN QID PRN TP MUSCLE PAIN 07/06/21 00:30 09/06/21 17:39 Al Hydroxide/Mg Hydroxide (Mylanta Plus Xs) 15 ml PRN AFTMEALHC PRN PO DYSPEPSIA 07/06/21 00:30 09/19/21 16:24 Magnesium Hydroxide (Milk Of Magnesia) 2,400 mg PRN QHS PRN PO 2ND CHOICE CONSTIPATION 07/06/21 00:30 07/14/21 08:13 Duloxetine HCl (Cymbalta) 20 mg HS PO 07/06/21 21:00 09/20/21 19:43 Duloxetine HCl (Cymbalta) 30 mg HS PO 07/06/21 21:00 09/20/21 19:43 Mirtazapine (Remeron) 7.5 mg HS PO 07/06/21 21:00 07/29/21 18:15 DC 07/28/21 20:09 Olanzapine (ZyPREXA ZYDIS) 2.5 mg PRN Q2HR PRN PO ANXIETY / AGITATION 07/06/21 01:15 09/14/21 21:08 Trazodone HCl (Desyrel) 50 mg PRN QHS PRN PO INSOMNIA 07/06/21 01:15 09/09/21 20:37 Acetaminophen (Tylenol) 650 mg PRN Q4HRS PRN PO MILD PAIN 1-3 07/06/21 10:30 09/06/21 17:39 Aspirin (Aspirin Enteric Coated) 81 mg DAILY PO 07/07/21 09:00 09/20/21 08:47 Atorvastatin Calcium (Lipitor) 10 mg QHS PO 07/06/21 21:00 09/20/21 19:44 Carvedilol (Coreg) 3.125 mg BIDWMEALS PO 07/06/21 17:00 07/25/21 17:52 DC 07/25/21 17:22 Gabapentin (Neurontin) 300 mg BID PO 07/06/21 21:00 08/30/21 12:29 DC 08/30/21 08:20 Metformin HCl (Glucophage Xr) 500 mg DAILYWBKFT PO 07/07/21 08:00 09/20/21 08:47 Multi-Ingredient Ointment (Analgesic [place]) 1 inna PRN QID PRN TP PAIN 07/06/21 10:30 UNV Phenytoin Sodium (Dilantin) 500 mg HS PO 07/06/21 21:00 07/07/21 22:27 DC 07/07/21 20:05 Tamsulosin HCl (Flomax) 0.4 mg DAILY PO 07/07/21 09:00 09/20/21 08:47 Polyethylene Glycol (miraLAX) 17 gm PRN DAILY PRN PO 1ST CHOICE CONSTIPATION 07/06/21 10:45 08/13/21 20:07 Non-Formulary Medication (Pravastatin Sodium ) 40 mg DAILY PO 07/07/21 09:00 UNV Phenyleph/Shark Oil/Min Oil/Petrol (Preparation H) 1 inna PRN QID PRN RC RECTAL PAIN 07/06/21 15:15 Phenytoin Sodium (Dilantin) 400 mg HS PO 07/08/21 21:00 07/11/21 23:36 DC 07/11/21 20:35 Albuterol/ Ipratropium (Combivent Respimat 20-100 Mcg) 1 puff QID INH 07/08/21 13:00 09/20/21 19:43 Docusate Sodium (Colace) 100 mg DAILY PO 07/09/21 09:00 09/20/21 08:47 Guaifenesin (Mucinex Er) 600 mg BID PO 07/08/21 21:00 09/20/21 19:44 Magnesium Hydroxide (Milk Of Magnesia) 2,400 mg PRN QHS PRN PO 2nd CHOICE CONSTIPATION 07/08/21 19:30 Cancel Phenytoin Sodium (Dilantin) 200 mg HS PO 07/12/21 21:00 09/20/21 19:44 Phenytoin Sodium (Dilantin) 100 mg DAILY PO 07/12/21 09:00 09/20/21 08:47 Carvedilol (Coreg) 6.25 mg BIDWMEALS PO 07/25/21 18:00 07/25/21 18:07 DC Carvedilol (Coreg) 6.25 mg BIDWMEALS PO 07/26/21 08:00 08/02/21 09:02 DC 08/02/21 08:33 Mirtazapine (Remeron) 15 mg QHS PO 07/29/21 21:00 09/20/21 19:44 Carvedilol (Coreg) 12.5 mg BIDWMEALS PO 08/02/21 17:00 09/20/21 16:57 Albuterol Sulfate (Ventolin Hfa Inhaler) 2 puff PRN Q4HRS PRN INH SHORTNESS OF BREATH 08/02/21 09:15 09/20/21 22:01 Melatonin (Melatonin) 3 mg QHS PO 08/05/21 21:00 08/18/21 14:06 DC 08/17/21 20:06 Oxycodone/ Acetaminophen (Percocet 10/325) 1 tab PRN Q6HRS PRN PO MOD-SEV PAIN 08/15/21 00:15 08/15/21 00:23 Melatonin (Melatonin) 6 mg QHS PO 08/18/21 21:00 09/20/21 19:44 Influenza Virus Vaccine Quadrival (Flulaval Quad Syringe) 0.5 ml ONCE ONCE VAX IM 08/20/21 09:00 08/20/21 09:01 DC 08/20/21 11:35 Gabapentin (Neurontin) 100 mg 1X ONCE PO 08/30/21 14:00 08/30/21 14:01 Cancel Gabapentin (Neurontin) 200 mg 1X ONCE PO 08/30/21 21:00 08/30/21 21:01 Cancel Gabapentin (Neurontin) 300 mg BID PO 08/31/21 09:00 09/20/21 19:44 Gabapentin (Neurontin) 300 mg 1X ONCE PO 08/30/21 12:45 08/30/21 12:46 DC 08/30/21 12:42 Nystatin (Nystop) 1 inna BID PRN TP antifungal 09/14/21 19:45 I have reviewed the current psychotropics carefully including drug interactions. Risk benefit ratio favors no change other than as noted in my dictated progress note. 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
--- NOTE | 2021-09-21 03:26 | NUR ---
Nursing Note The patient was located in his room and the hallway for his assessment. The patient was pleasant during interactions and took his medications whole. The patient awoke later in the shift and voiced shortness of breath. PRN albuterol inhaler was given. The patient is currently awake in his room.
[2021-09-21 05:49] VITALS: BP 153/89
[2021-09-21] MEDS: IPRATROPIUM/ALBUTEROL 20/100mcg/INH INHALER. INH SCH ×4 (08:34→20:54)
[2021-09-21] MEDS: PHENYTOIN SODIUM EXTENDED 100 MG CAPSULE PO SCH ×2 (08:34→20:53)
[2021-09-21] MEDS: ASPIRIN ENTERIC COATED 81 MG TABLET.DR. PO SCH (08:35)
[2021-09-21] MEDS: GABAPENTIN 300 MG CAPSULE. PO SCH ×2 (08:35→20:53)
[2021-09-21] MEDS: TAMSULOSIN 0.4 MG CAP.ER.24H. PO SCH (08:35)
[2021-09-21] MEDS: metFORMIN XR 500 MG TAB.ER.24H PO SCH (08:35)
[2021-09-21] MEDS: DOCUSATE SODIUM 100 MG CAPSULE PO SCH (08:35)
[2021-09-21] MEDS: CARVEDILOL 12.5 MG TABLET PO SCH ×2 (08:35→17:38)
--- NOTE | 2021-09-21 08:43 | PDOC ---
Exam Note: Leo Note: This note is a late entry for 09/18/2021 covers elements not covered in my initial note. Subjective: The patient was seen individually in the evening of 09/18/2021 with Rk KOWALSKI, discussed and reviewed the chart. The patient slept 6-3/4 hours previous night. Overall patient remains withdrawn, spends much time in his room, does come out and yodels. He had many questions about discharge plans and social service staff are actively working to facilitate this. Review of Systems: Ambulation impaired in wheelchair. He has some hand tremors. No CV, , pulmonary, eye, ENT system symptoms on review. Mental Status Exam: The patient is oriented to himself and situation. Speech has some latency coherent. Abstraction fair. Computation impaired. Language function intact. Mood and affect somewhat withdrawn. Laboratory Data: Reviewed. Impression: Major depressive disorder, in partial remission. Major neurocognitive disorder, Alzheimer, vascular with delusion, depression, behavioral disturbance. Anxiety disorder unspecified. Impulse control disorder unspecified. Plan: No change from initial note. Assessment: Vital Signs/I&O: Vital Signs Date Time Temp Pulse Resp B/P (MAP) Pulse Ox O2 Delivery O2 Flow Rate FiO2 09/21/21 08:35 68 153/89 09/21/21 05:49 98.3 18 94 I & O 09/20/21 09/20/21 09/21/21 15:00 23:00 07:00 Intake Total 840 ml 600 ml Balance 840 ml 600 ml Labs: Laboratory Tests Test 09/21/21 07:42 Glucose (Fingerstick) 119 mg/dL (70-99) H Current Medications: Meds: Laboratory Tests Test 09/21/21 07:42 Glucose (Fingerstick) 119 mg/dL Current Medications Medications (Trade) Dose Ordered Sig/Aparna Route PRN Reason Start Time Stop Time Status Last Admin Dose Admin Acetaminophen (Tylenol) 650 mg PRN Q6HRS PRN PO MILD PAIN / TEMP > 100.3'F 07/06/21 00:30 Cancel Multi-Ingredient Ointment (Analgesic [place]) 1 inna PRN QID PRN TP MUSCLE PAIN 07/06/21 00:30 09/06/21 17:39 Al Hydroxide/Mg Hydroxide (Mylanta Plus Xs) 15 ml PRN AFTMEALHC PRN PO DYSPEPSIA 07/06/21 00:30 09/19/21 16:24 Magnesium Hydroxide (Milk Of Magnesia) 2,400 mg PRN QHS PRN PO 2ND CHOICE CONSTIPATION 07/06/21 00:30 07/14/21 08:13 Duloxetine HCl (Cymbalta) 20 mg HS PO 07/06/21 21:00 09/20/21 19:43 Duloxetine HCl (Cymbalta) 30 mg HS PO 07/06/21 21:00 09/20/21 19:43 Mirtazapine (Remeron) 7.5 mg HS PO 07/06/21 21:00 07/29/21 18:15 DC 07/28/21 20:09 Olanzapine (ZyPREXA ZYDIS) 2.5 mg PRN Q2HR PRN PO ANXIETY / AGITATION 07/06/21 01:15 09/14/21 21:08 Trazodone HCl (Desyrel) 50 mg PRN QHS PRN PO INSOMNIA 07/06/21 01:15 09/09/21 20:37 Acetaminophen (Tylenol) 650 mg PRN Q4HRS PRN PO MILD PAIN 1-3 07/06/21 10:30 09/06/21 17:39 Aspirin (Aspirin Enteric Coated) 81 mg DAILY PO 07/07/21 09:00 09/21/21 08:35 Atorvastatin Calcium (Lipitor) 10 mg QHS PO 07/06/21 21:00 09/20/21 19:44 Carvedilol (Coreg) 3.125 mg BIDWMEALS PO 07/06/21 17:00 07/25/21 17:52 DC 07/25/21 17:22 Gabapentin (Neurontin) 300 mg BID PO 07/06/21 21:00 08/30/21 12:29 DC 08/30/21 08:20 Metformin HCl (Glucophage Xr) 500 mg DAILYWBKFT PO 07/07/21 08:00 09/21/21 08:35 Multi-Ingredient Ointment (Analgesic [place]) 1 inna PRN QID PRN TP PAIN 07/06/21 10:30 UNV Phenytoin Sodium (Dilantin) 500 mg HS PO 07/06/21 21:00 07/07/21 22:27 DC 07/07/21 20:05 Tamsulosin HCl (Flomax) 0.4 mg DAILY PO 07/07/21 09:00 09/21/21 08:35 Polyethylene Glycol (miraLAX) 17 gm PRN DAILY PRN PO 1ST CHOICE CONSTIPATION 07/06/21 10:45 08/13/21 20:07 Non-Formulary Medication (Pravastatin Sodium ) 40 mg DAILY PO 07/07/21 09:00 UNV Phenyleph/Shark Oil/Min Oil/Petrol (Preparation H) 1 inna PRN QID PRN RC RECTAL PAIN 07/06/21 15:15 Phenytoin Sodium (Dilantin) 400 mg HS PO 07/08/21 21:00 07/11/21 23:36 DC 07/11/21 20:35 Albuterol/ Ipratropium (Combivent Respimat 20-100 Mcg) 1 puff QID INH 07/08/21 13:00 09/21/21 08:34 Docusate Sodium (Colace) 100 mg DAILY PO 07/09/21 09:00 09/21/21 08:35 Guaifenesin (Mucinex Er) 600 mg BID PO 07/08/21 21:00 09/21/21 08:34 Magnesium Hydroxide (Milk Of Magnesia) 2,400 mg PRN QHS PRN PO 2nd CHOICE CONSTIPATION 07/08/21 19:30 Cancel Phenytoin Sodium (Dilantin) 200 mg HS PO 07/12/21 21:00 09/20/21 19:44 Phenytoin Sodium (Dilantin) 100 mg DAILY PO 07/12/21 09:00 09/21/21 08:34 Carvedilol (Coreg) 6.25 mg BIDWMEALS PO 07/25/21 18:00 07/25/21 18:07 DC Carvedilol (Coreg) 6.25 mg BIDWMEALS PO 07/26/21 08:00 08/02/21 09:02 DC 08/02/21 08:33 Mirtazapine (Remeron) 15 mg QHS PO 07/29/21 21:00 09/20/21 19:44 Carvedilol (Coreg) 12.5 mg BIDWMEALS PO 08/02/21 17:00 09/21/21 08:35 Albuterol Sulfate (Ventolin Hfa Inhaler) 2 puff PRN Q4HRS PRN INH SHORTNESS OF BREATH 08/02/21 09:15 09/20/21 22:01 Melatonin (Melatonin) 3 mg QHS PO 08/05/21 21:00 08/18/21 14:06 DC 08/17/21 20:06 Oxycodone/ Acetaminophen (Percocet 10) 1 tab PRN Q6HRS PRN PO MOD-SEV PAIN 08/15/21 00:15 08/15/21 00:23 Melatonin (Melatonin) 6 mg QHS PO 08/18/21 21:00 09/20/21 19:44 Influenza Virus Vaccine Quadrival (Flulaval Quad Syringe) 0.5 ml ONCE ONCE VAX IM 08/20/21 09:00 08/20/21 09:01 DC 08/20/21 11:35 Gabapentin (Neurontin) 100 mg 1X ONCE PO 08/30/21 14:00 08/30/21 14:01 Cancel Gabapentin (Neurontin) 200 mg 1X ONCE PO 08/30/21 21:00 08/30/21 21:01 Cancel Gabapentin (Neurontin) 300 mg BID PO 08/31/21 09:00 09/21/21 08:35 Gabapentin (Neurontin) 300 mg 1X ONCE PO 08/30/21 12:45 08/30/21 12:46 DC 08/30/21 12:42 Nystatin (Nystop) 1 inna BID PRN TP antifungal 09/14/21 19:45 I have reviewed the current psychotropics carefully including drug interactions. Risk benefit ratio favors no change other than as noted in my dictated progress note. 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
--- NOTE | 2021-09-21 09:05 | PDOC ---
Exam Note: Leo Note: This note is a late entry for 09/19/2021 covers elements not covered in my initial note. Subjective: The patient was seen individually in the evening of 09/19/2021 with Eliud KOWALSKI, discussed and reviewed the chart. The patient slept 6 hours previous night. I met with the patient in his room. He is doing about the same. Review of Systems: Ambulation impaired in wheelchair. No CV, , pulmonary, eye, ENT system symptoms on review. Mental Status Exam: The patient is oriented to himself and situation. Speech has some latency coherent. Abstraction fair. Computation impaired. Short-term memory is impaired. He had many questions again about discharge plans. We addressed this. No suicidal or homicidal ideation. Laboratory Data: Reviewed. Impression: Major depressive disorder, in partial remission. Major neurocognitive disorder, Alzheimer, vascular with delusion, depression, behavioral disturbance. Anxiety disorder unspecified. Impulse control disorder unspecified. Plan: No change from initial note. Assessment: Vital Signs/I&O: Vital Signs Date Time Temp Pulse Resp B/P (MAP) Pulse Ox O2 Delivery O2 Flow Rate FiO2 09/21/21 08:35 68 153/89 09/21/21 05:49 98.3 18 94 I & O 09/20/21 09/20/21 09/21/21 15:00 23:00 07:00 Intake Total 840 ml 600 ml Balance 840 ml 600 ml Labs: Laboratory Tests Test 09/21/21 07:42 Glucose (Fingerstick) 119 mg/dL (70-99) H Current Medications: Meds: Laboratory Tests Test 09/21/21 07:42 Glucose (Fingerstick) 119 mg/dL Current Medications Medications (Trade) Dose Ordered Sig/Aparna Route PRN Reason Start Time Stop Time Status Last Admin Dose Admin Acetaminophen (Tylenol) 650 mg PRN Q6HRS PRN PO MILD PAIN / TEMP > 100.3'F 07/06/21 00:30 Cancel Multi-Ingredient Ointment (Analgesic [place]) 1 inna PRN QID PRN TP MUSCLE PAIN 07/06/21 00:30 09/06/21 17:39 Al Hydroxide/Mg Hydroxide (Mylanta Plus Xs) 15 ml PRN AFTMEALHC PRN PO DYSPEPSIA 07/06/21 00:30 09/19/21 16:24 Magnesium Hydroxide (Milk Of Magnesia) 2,400 mg PRN QHS PRN PO 2ND CHOICE CONSTIPATION 07/06/21 00:30 07/14/21 08:13 Duloxetine HCl (Cymbalta) 20 mg HS PO 07/06/21 21:00 09/20/21 19:43 Duloxetine HCl (Cymbalta) 30 mg HS PO 07/06/21 21:00 09/20/21 19:43 Mirtazapine (Remeron) 7.5 mg HS PO 07/06/21 21:00 07/29/21 18:15 DC 07/28/21 20:09 Olanzapine (ZyPREXA ZYDIS) 2.5 mg PRN Q2HR PRN PO ANXIETY / AGITATION 07/06/21 01:15 09/14/21 21:08 Trazodone HCl (Desyrel) 50 mg PRN QHS PRN PO INSOMNIA 07/06/21 01:15 09/09/21 20:37 Acetaminophen (Tylenol) 650 mg PRN Q4HRS PRN PO MILD PAIN 1-3 07/06/21 10:30 09/06/21 17:39 Aspirin (Aspirin Enteric Coated) 81 mg DAILY PO 07/07/21 09:00 09/21/21 08:35 Atorvastatin Calcium (Lipitor) 10 mg QHS PO 07/06/21 21:00 09/20/21 19:44 Carvedilol (Coreg) 3.125 mg BIDWMEALS PO 07/06/21 17:00 07/25/21 17:52 DC 07/25/21 17:22 Gabapentin (Neurontin) 300 mg BID PO 07/06/21 21:00 08/30/21 12:29 DC 08/30/21 08:20 Metformin HCl (Glucophage Xr) 500 mg DAILYWBKFT PO 07/07/21 08:00 09/21/21 08:35 Multi-Ingredient Ointment (Analgesic [place]) 1 inna PRN QID PRN TP PAIN 07/06/21 10:30 UNV Phenytoin Sodium (Dilantin) 500 mg HS PO 07/06/21 21:00 07/07/21 22:27 DC 07/07/21 20:05 Tamsulosin HCl (Flomax) 0.4 mg DAILY PO 07/07/21 09:00 09/21/21 08:35 Polyethylene Glycol (miraLAX) 17 gm PRN DAILY PRN PO 1ST CHOICE CONSTIPATION 07/06/21 10:45 08/13/21 20:07 Non-Formulary Medication (Pravastatin Sodium ) 40 mg DAILY PO 07/07/21 09:00 UNV Phenyleph/Shark Oil/Min Oil/Petrol (Preparation H) 1 inna PRN QID PRN RC RECTAL PAIN 07/06/21 15:15 Phenytoin Sodium (Dilantin) 400 mg HS PO 07/08/21 21:00 07/11/21 23:36 DC 07/11/21 20:35 Albuterol/ Ipratropium (Combivent Respimat 20-100 Mcg) 1 puff QID INH 07/08/21 13:00 09/21/21 08:34 Docusate Sodium (Colace) 100 mg DAILY PO 07/09/21 09:00 09/21/21 08:35 Guaifenesin (Mucinex Er) 600 mg BID PO 07/08/21 21:00 09/21/21 08:34 Magnesium Hydroxide (Milk Of Magnesia) 2,400 mg PRN QHS PRN PO 2nd CHOICE CONSTIPATION 07/08/21 19:30 Cancel Phenytoin Sodium (Dilantin) 200 mg HS PO 07/12/21 21:00 09/20/21 19:44 Phenytoin Sodium (Dilantin) 100 mg DAILY PO 07/12/21 09:00 09/21/21 08:34 Carvedilol (Coreg) 6.25 mg BIDWMEALS PO 07/25/21 18:00 07/25/21 18:07 DC Carvedilol (Coreg) 6.25 mg BIDWMEALS PO 07/26/21 08:00 08/02/21 09:02 DC 08/02/21 08:33 Mirtazapine (Remeron) 15 mg QHS PO 07/29/21 21:00 09/20/21 19:44 Carvedilol (Coreg) 12.5 mg BIDWMEALS PO 08/02/21 17:00 09/21/21 08:35 Albuterol Sulfate (Ventolin Hfa Inhaler) 2 puff PRN Q4HRS PRN INH SHORTNESS OF BREATH 08/02/21 09:15 09/20/21 22:01 Melatonin (Melatonin) 3 mg QHS PO 08/05/21 21:00 08/18/21 14:06 DC 08/17/21 20:06 Oxycodone/ Acetaminophen (Percocet 10325) 1 tab PRN Q6HRS PRN PO MOD-SEV PAIN 08/15/21 00:15 08/15/21 00:23 Melatonin (Melatonin) 6 mg QHS PO 08/18/21 21:00 09/20/21 19:44 Influenza Virus Vaccine Quadrival (Flulaval Quad Syringe) 0.5 ml ONCE ONCE VAX IM 08/20/21 09:00 08/20/21 09:01 DC 08/20/21 11:35 Gabapentin (Neurontin) 100 mg 1X ONCE PO 08/30/21 14:00 08/30/21 14:01 Cancel Gabapentin (Neurontin) 200 mg 1X ONCE PO 08/30/21 21:00 08/30/21 21:01 Cancel Gabapentin (Neurontin) 300 mg BID PO 08/31/21 09:00 09/21/21 08:35 Gabapentin (Neurontin) 300 mg 1X ONCE PO 08/30/21 12:45 08/30/21 12:46 DC 08/30/21 12:42 Nystatin (Nystop) 1 inna BID PRN TP antifungal 09/14/21 19:45 I have reviewed the current psychotropics carefully including drug interactions. Risk benefit ratio favors no change other than as noted in my dictated progress note. 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
--- NOTE | 2021-09-21 14:14 | NUR ---
Nursing note: Patient in dinning room for morning medications & assessment. He is compliant with medications taken whole. Patient is A/O to self only. He is calm & cooperative. He has not participated in groups today. He propels self in w/c, & self transfers. Patient denies pain/discomfort/SI/AH/VH/delusions at this time. He is currently in bed resting with eyes closed. Will continue to monitor.
[2021-09-21 15:55] VITALS: BP 118/66
[2021-09-21] MEDS: DULoxetine HCL 30 MG CAPSULE.DR PO SCH (20:52)
[2021-09-21] MEDS: DULoxetine HCL 20 MG CAPSULE.DR PO SCH (20:52)
[2021-09-21] MEDS: MIRTAZAPINE 15 MG TABLET PO SCH (20:53)
[2021-09-21] MEDS: ATORVASTATIN CALCIUM 10 MG TABLET. PO SCH (20:53)
[2021-09-21] MEDS: MELATONIN 3 MG TABLET PO SCH (20:53)
--- NOTE | 2021-09-21 21:55 | PDOC ---
Exam Note: Leo Note: Please also refer to the separate dictated note~for this date of service dictated separately.~Patient seen individually. Discussed the patient with Nursing staff reviewed the chart.~Reviewed interim history and current functioning. Reviewed vital signs,~Labs/ Radiology~and current medications noted below. Continue current treatment with the changes noted in the dictated addendum note Assessment: Vital Signs/I&O: Vital Signs Date Time Temp Pulse Resp B/P (MAP) Pulse Ox O2 Delivery O2 Flow Rate FiO2 09/21/21 17:38 68 118/66 09/21/21 15:55 97.9 20 94 I & O 09/20/21 09/20/21 09/21/21 15:00 23:00 07:00 Intake Total 840 ml 600 ml Balance 840 ml 600 ml Labs: Laboratory Tests Test 09/21/21 07:42 Glucose (Fingerstick) 119 mg/dL (70-99) H Current Medications: Meds: Laboratory Tests Test 09/21/21 07:42 Glucose (Fingerstick) 119 mg/dL Current Medications Medications (Trade) Dose Ordered Sig/Aparna Route PRN Reason Start Time Stop Time Status Last Admin Dose Admin Acetaminophen (Tylenol) 650 mg PRN Q6HRS PRN PO MILD PAIN / TEMP > 100.3'F 07/06/21 00:30 Cancel Multi-Ingredient Ointment (Analgesic [place]) 1 inna PRN QID PRN TP MUSCLE PAIN 07/06/21 00:30 09/06/21 17:39 Al Hydroxide/Mg Hydroxide (Mylanta Plus Xs) 15 ml PRN AFTMEALHC PRN PO DYSPEPSIA 07/06/21 00:30 09/19/21 16:24 Magnesium Hydroxide (Milk Of Magnesia) 2,400 mg PRN QHS PRN PO 2ND CHOICE CONSTIPATION 07/06/21 00:30 07/14/21 08:13 Duloxetine HCl (Cymbalta) 20 mg HS PO 07/06/21 21:00 09/21/21 20:52 Duloxetine HCl (Cymbalta) 30 mg HS PO 07/06/21 21:00 09/21/21 20:52 Mirtazapine (Remeron) 7.5 mg HS PO 07/06/21 21:00 07/29/21 18:15 DC 07/28/21 20:09 Olanzapine (ZyPREXA ZYDIS) 2.5 mg PRN Q2HR PRN PO ANXIETY / AGITATION 07/06/21 01:15 09/14/21 21:08 Trazodone HCl (Desyrel) 50 mg PRN QHS PRN PO INSOMNIA 07/06/21 01:15 09/09/21 20:37 Acetaminophen (Tylenol) 650 mg PRN Q4HRS PRN PO MILD PAIN 1-3 07/06/21 10:30 09/06/21 17:39 Aspirin (Aspirin Enteric Coated) 81 mg DAILY PO 07/07/21 09:00 09/21/21 08:35 Atorvastatin Calcium (Lipitor) 10 mg QHS PO 07/06/21 21:00 09/21/21 20:53 Carvedilol (Coreg) 3.125 mg BIDWMEALS PO 07/06/21 17:00 07/25/21 17:52 DC 07/25/21 17:22 Gabapentin (Neurontin) 300 mg BID PO 07/06/21 21:00 08/30/21 12:29 DC 08/30/21 08:20 Metformin HCl (Glucophage Xr) 500 mg DAILYWBKFT PO 07/07/21 08:00 09/21/21 08:35 Multi-Ingredient Ointment (Analgesic [place]) 1 inna PRN QID PRN TP PAIN 07/06/21 10:30 UNV Phenytoin Sodium (Dilantin) 500 mg HS PO 07/06/21 21:00 07/07/21 22:27 DC 07/07/21 20:05 Tamsulosin HCl (Flomax) 0.4 mg DAILY PO 07/07/21 09:00 09/21/21 08:35 Polyethylene Glycol (miraLAX) 17 gm PRN DAILY PRN PO 1ST CHOICE CONSTIPATION 07/06/21 10:45 08/13/21 20:07 Non-Formulary Medication (Pravastatin Sodium ) 40 mg DAILY PO 07/07/21 09:00 UNV Phenyleph/Shark Oil/Min Oil/Petrol (Preparation H) 1 inna PRN QID PRN RC RECTAL PAIN 07/06/21 15:15 Phenytoin Sodium (Dilantin) 400 mg HS PO 07/08/21 21:00 07/11/21 23:36 DC 07/11/21 20:35 Albuterol/ Ipratropium (Combivent Respimat 20-100 Mcg) 1 puff QID INH 07/08/21 13:00 09/21/21 20:54 Docusate Sodium (Colace) 100 mg DAILY PO 07/09/21 09:00 09/21/21 08:35 Guaifenesin (Mucinex Er) 600 mg BID PO 07/08/21 21:00 09/21/21 20:53 Magnesium Hydroxide (Milk Of Magnesia) 2,400 mg PRN QHS PRN PO 2nd CHOICE CONSTIPATION 07/08/21 19:30 Cancel Phenytoin Sodium (Dilantin) 200 mg HS PO 07/12/21 21:00 09/21/21 20:53 Phenytoin Sodium (Dilantin) 100 mg DAILY PO 07/12/21 09:00 09/21/21 08:34 Carvedilol (Coreg) 6.25 mg BIDWMEALS PO 07/25/21 18:00 07/25/21 18:07 DC Carvedilol (Coreg) 6.25 mg BIDWMEALS PO 07/26/21 08:00 08/02/21 09:02 DC 08/02/21 08:33 Mirtazapine (Remeron) 15 mg QHS PO 07/29/21 21:00 09/21/21 20:53 Carvedilol (Coreg) 12.5 mg BIDWMEALS PO 08/02/21 17:00 09/21/21 17:38 Albuterol Sulfate (Ventolin Hfa Inhaler) 2 puff PRN Q4HRS PRN INH SHORTNESS OF BREATH 08/02/21 09:15 09/20/21 22:01 Melatonin (Melatonin) 3 mg QHS PO 08/05/21 21:00 08/18/21 14:06 DC 08/17/21 20:06 Oxycodone/ Acetaminophen (Percocet 10/325) 1 tab PRN Q6HRS PRN PO MOD-SEV PAIN 08/15/21 00:15 08/15/21 00:23 Melatonin (Melatonin) 6 mg QHS PO 08/18/21 21:00 09/21/21 20:53 Influenza Virus Vaccine Quadrival (Flulaval Quad 1317-9231 Syringe) 0.5 ml ONCE ONCE VAX IM 08/20/21 09:00 08/20/21 09:01 DC 08/20/21 11:35 Gabapentin (Neurontin) 100 mg 1X ONCE PO 08/30/21 14:00 08/30/21 14:01 Cancel Gabapentin (Neurontin) 200 mg 1X ONCE PO 08/30/21 21:00 08/30/21 21:01 Cancel Gabapentin (Neurontin) 300 mg BID PO 08/31/21 09:00 09/21/21 20:53 Gabapentin (Neurontin) 300 mg 1X ONCE PO 08/30/21 12:45 08/30/21 12:46 DC 08/30/21 12:42 Nystatin (Nystop) 1 inna BID PRN TP antifungal 09/14/21 19:45 I have reviewed the current psychotropics carefully including drug interactions. Risk benefit ratio favors no change other than as noted in my dictated progress note. Diagnosis: Problems: (1) Major depressive disorder in partial remission (2) Impulse control disorder, unspecified (3) Anxiety disorder, unspecified (4) Dementia, vascular, with depression (5) Dementia, vascular, with delusions (6) Major neurocognitive disorder (7) Dementia in Alzheimer's disease with depression (8) Dementia in Alzheimer's disease with delusions (9) Dementia of the Alzheimer's type with early onset with behavioral disturbance NIK LOYA MD Sep 21, 2021 21:55
--- NOTE | 2021-09-21 23:03 | NUR ---
Pt located in his room this evening. Pt pleasant; singing and yodeling at times. Compliant with whole medications.
[2021-09-22 05:51] VITALS: BP 169/79
[2021-09-22 06:27] LABS: ALBUMIN 3.1 g/dL (3.4-5.0); ALBUMIN/GLOBULIN RATIO 0.9 (1.0-1.7); CALCIUM 8.7 mg/dL (8.5-10.1); CREATININE 1.3 mg/dL (0.7-1.3); GFR 53.3; POTASSIUM 4.3 mmol/L (3.5-5.1); TOTAL BILIRUBIN 0.2 mg/dL (0.2-1.0); TOTAL PROTEIN 6.7 g/dL (6.4-8.2)
[2021-09-22 07:17] LABS: BASO % 1 % (0-3); EOS # 0.7 x10^3/uL (0.0-0.7); EOS % 11 % (0-3); HEMATOCRIT 33.7 % (39.0-53.0); HEMOGLOBIN 11.1 g/dL (13.0-17.5); LYMPH # 1.7 x10^3/uL (1.0-4.8); LYMPH % 28 % (24-48); MEAN CORPUSCULAR HEMOGLOBIN 34 pg (25-35); MEAN CORPUSCULAR HGB CONC 33 g/dL (31-37); MEAN CORPUSCULAR VOLUME 103 fL (79-100); MONO # 0.7 x10^3/uL (0.0-1.1); MONO % 11 % (0-9); NEUT % 49 % (31-73); PLATELET COUNT 96 x10^3/uL (140-400); RED BLOOD COUNT 3.26 x10^6/uL (4.30-5.70); RED CELL DISTRIBUTION WIDTH 13.8 % (11.5-14.5); WHITE BLOOD COUNT 6.1 x10^3/uL (4.0-11.0)
[2021-09-22] MEDS: TAMSULOSIN 0.4 MG CAP.ER.24H. PO SCH (08:16)
[2021-09-22] MEDS: CARVEDILOL 12.5 MG TABLET PO SCH ×2 (08:16→17:11)
[2021-09-22] MEDS: metFORMIN XR 500 MG TAB.ER.24H PO SCH (08:16)
[2021-09-22] MEDS: GABAPENTIN 300 MG CAPSULE. PO SCH ×2 (08:17→20:26)
[2021-09-22] MEDS: ASPIRIN ENTERIC COATED 81 MG TABLET.DR. PO SCH (08:17)
[2021-09-22] MEDS: IPRATROPIUM/ALBUTEROL 20/100mcg/INH INHALER. INH SCH ×4 (08:17→20:27)
[2021-09-22] MEDS: PHENYTOIN SODIUM EXTENDED 100 MG CAPSULE PO SCH ×2 (08:17→20:27)
[2021-09-22] MEDS: DOCUSATE SODIUM 100 MG CAPSULE PO SCH (08:17)
--- NOTE | 2021-09-22 13:35 | NUR ---
Nursing note: Patient in dinning room for morning medications & assessment. He had a coughing fit this am at breakfast, had clear sputum with scant yellow chunks. He is compliant with medications taken whole. Patient is A/O to self only. He is calm & cooperative. He has not participated in groups today. He propels self in w/c, & self transfers. Patient denies pain/discomfort/SI/AH/VH/delusions at this time. He is currently in bed resting with eyes closed. Will continue to monitor.
--- NOTE | 2021-09-22 13:41 | NUR ---
WEEKLY ACTIVITY THERAPY NOTE Date of Admission: 07/06/21 Date of AT Assessment: 07/08 Precipitating behaviors that initiated intake and admission:Patient was reported to believe that his money was being stolen, his dog was being murdered, trying to leave the facility, disoriented, being tearful and crying frequently, and having sexually inappropriate conversations with other residents Goal aimed:increase socialization and engagement Initial Goal: Pt will participate in at least three individual or group Activity Therapy sessions per week. Goal changed 07/21:Pt will participate in at least five individual or group Activity Therapy sessions per week. Weekly progress towards goal: did not achieve, /5 Group participation level: 4 full Weekly highlights: sang and reminisced about brother during guess the tv theme show song Wednesday, painted a pumpkin with minimal assistance , participated in exercises and helped solve picture man puzzles Wednesday, marked bingo card independently and yodelled for peers Wednesday Behaviors observed: social,pleasant Plan: no change to goal Beneficial adaptations:socialization, engagement
--- NOTE | 2021-09-22 13:59 | NUR ---
Treatment team note: Pt is eating 100% of meals and sleeping on average 5.5 hours per night. Pt continues to be medication compliant, and mostly compliant with cares. Pt can be irritable at time but redirectable. Pt has attended four groups this last week with moderate participation. SW found placement; however, pt family has put a stop to placement in that "pt does not have money to pay for placement". ARI has reached out to the state re: this concern as well as requested that [facility] attempt to aid the family in getting Medicaid approved. ARI will continue to work on placement and get pt family up to date on all that is needed to make an immediate transfer to placement.
--- NOTE | 2021-09-22 15:55 | NUR ---
ARI spoke with Olga @ [facility] re: an update on pt. ARI informed her that a facility accepted pt last week; however, in making payment arrangements for pt placement, the nephew notified the business office that he has no money. ARI is unsure as to how this is possible as when ARI questioned payment, it was noted that pt would be paying out of pocket. Furthermore, ARI noted that pt has [place] been [place] for [place] apartment for at least the last 4 months, so concerned about where that money went since pt has been here at the hospital since April. Olga reports that she will plan to reach out to the nephew tomorrow to see what the hold up is. ARI informed Olga that [facility] is to reach out and work on getting him Medicaid as well but is concerned that pt still has assets in [place] which would not qualify him for placement. Once Olga further discusses this with pt nephew, she will contact ARI back.
[2021-09-22 16:07] VITALS: BP 118/57
[2021-09-22] MEDS: MIRTAZAPINE 15 MG TABLET PO SCH (20:26)
[2021-09-22] MEDS: DULoxetine HCL 20 MG CAPSULE.DR PO SCH (20:26)
[2021-09-22] MEDS: ATORVASTATIN CALCIUM 10 MG TABLET. PO SCH (20:26)
[2021-09-22] MEDS: DULoxetine HCL 30 MG CAPSULE.DR PO SCH (20:26)
[2021-09-22] MEDS: MELATONIN 3 MG TABLET PO SCH (20:27)
--- NOTE | 2021-09-22 21:52 | PDOC ---
Exam Note: Leo Note: Please also refer to the separate dictated note~for this date of service dictated separately.~Patient seen individually. Discussed the patient with Nursing staff reviewed the chart.~Reviewed interim history and current functioning. Reviewed vital signs,~Labs/ Radiology~and current medications noted below. Continue current treatment with the changes noted in the dictated addendum note Assessment: Vital Signs/I&O: Vital Signs Date Time Temp Pulse Resp B/P (MAP) Pulse Ox O2 Delivery O2 Flow Rate FiO2 09/22/21 17:11 61 118/57 09/22/21 16:07 97.9 16 95 I & O 09/21/21 09/21/21 09/22/21 15:00 23:00 07:00 Intake Total 790 ml 360 ml Balance 790 ml 360 ml Labs: Laboratory Tests Test 09/22/21 05:55 09/22/21 07:48 White Blood Count 6.1 x10^3/uL (4.0-11.0) Red Blood Count 3.26 x10^6/uL (4.30-5.70) L Hemoglobin 11.1 g/dL (13.0-17.5) L Hematocrit 33.7 % (39.0-53.0) L Mean Corpuscular Volume 103 fL (79-100) H Mean Corpuscular Hemoglobin 34 pg (25-35) Mean Corpuscular Hemoglobin Concent 33 g/dL (31-37) Red Cell Distribution Width 13.8 % (11.5-14.5) Platelet Count 96 x10^3/uL (140-400) L Neutrophils (%) (Auto) 49 % (31-73) Lymphocytes (%) (Auto) 28 % (24-48) Monocytes (%) (Auto) 11 % (0-9) H Eosinophils (%) (Auto) 11 % (0-3) H Basophils (%) (Auto) 1 % (0-3) Neutrophils # (Auto) 3.0 x10^3uL (1.8-7.7) Lymphocytes # (Auto) 1.7 x10^3/uL (1.0-4.8) Monocytes # (Auto) 0.7 x10^3/uL (0.0-1.1) Eosinophils # (Auto) 0.7 x10^3/uL (0.0-0.7) Basophils # (Auto) 0.0 x10^3/uL (0.0-0.2) Sodium Level 142 mmol/L (136-145) Potassium Level 4.3 mmol/L (3.5-5.1) Chloride Level 106 mmol/L (98-107) Carbon Dioxide Level 29 mmol/L (21-32) Anion Gap 7 (6-14) Blood Urea Nitrogen 51 mg/dL (8-26) H Creatinine 1.3 mg/dL (0.7-1.3) Estimated GFR (Cockcroft-Gault) 53.3 BUN/Creatinine Ratio 39 (6-20) H Glucose Level 119 mg/dL (70-99) H Calcium Level 8.7 mg/dL (8.5-10.1) Total Bilirubin 0.2 mg/dL (0.2-1.0) Aspartate Amino Transferase (AST) 16 U/L (15-37) Alanine Aminotransferase (ALT) 25 U/L (16-63) Alkaline Phosphatase 106 U/L (46-116) Total Protein 6.7 g/dL (6.4-8.2) Albumin 3.1 g/dL (3.4-5.0) L Albumin/Globulin Ratio 0.9 (1.0-1.7) L Glucose (Fingerstick) 101 mg/dL (70-99) H Current Medications: Meds: Laboratory Tests Test 09/22/21 05:55 09/22/21 07:48 White Blood Count 6.1 x10^3/uL Red Blood Count 3.26 x10^6/uL Hemoglobin 11.1 g/dL Hematocrit 33.7 % Mean Corpuscular Volume 103 fL Mean Corpuscular Hemoglobin 34 pg Mean Corpuscular Hemoglobin Concent 33 g/dL Red Cell Distribution Width 13.8 % Platelet Count 96 x10^3/uL Neutrophils (%) (Auto) 49 % Lymphocytes (%) (Auto) 28 % Monocytes (%) (Auto) 11 % Eosinophils (%) (Auto) 11 % Basophils (%) (Auto) 1 % Neutrophils # (Auto) 3.0 x10^3uL Lymphocytes # (Auto) 1.7 x10^3/uL Monocytes # (Auto) 0.7 x10^3/uL Eosinophils # (Auto) 0.7 x10^3/uL Basophils # (Auto) 0.0 x10^3/uL Sodium Level 142 mmol/L Potassium Level 4.3 mmol/L Chloride Level 106 mmol/L Carbon Dioxide Level 29 mmol/L Anion Gap 7 Blood Urea Nitrogen 51 mg/dL Creatinine 1.3 mg/dL Estimated GFR (Cockcroft-Gault) 53.3 BUN/Creatinine Ratio 39 Glucose Level 119 mg/dL Calcium Level 8.7 mg/dL Total Bilirubin 0.2 mg/dL Aspartate Amino Transf (AST/SGOT) 16 U/L Alanine Aminotransferase (ALT/SGPT) 25 U/L Alkaline Phosphatase 106 U/L Total Protein 6.7 g/dL Albumin 3.1 g/dL Albumin/Globulin Ratio 0.9 Glucose (Fingerstick) 101 mg/dL Current Medications Medications (Trade) Dose Ordered Sig/Aparna Route PRN Reason Start Time Stop Time Status Last Admin Dose Admin Acetaminophen (Tylenol) 650 mg PRN Q6HRS PRN PO MILD PAIN / TEMP > 100.3'F 07/06/21 00:30 Cancel Multi-Ingredient Ointment (Analgesic [place]) 1 inna PRN QID PRN TP MUSCLE PAIN 07/06/21 00:30 09/06/21 17:39 Al Hydroxide/Mg Hydroxide (Mylanta Plus Xs) 15 ml PRN AFTMEALHC PRN PO DYSPEPSIA 07/06/21 00:30 09/19/21 16:24 Magnesium Hydroxide (Milk Of Magnesia) 2,400 mg PRN QHS PRN PO 2ND CHOICE CONSTIPATION 07/06/21 00:30 07/14/21 08:13 Duloxetine HCl (Cymbalta) 20 mg HS PO 07/06/21 21:00 09/22/21 20:26 Duloxetine HCl (Cymbalta) 30 mg HS PO 07/06/21 21:00 09/22/21 20:26 Mirtazapine (Remeron) 7.5 mg HS PO 07/06/21 21:00 07/29/21 18:15 DC 07/28/21 20:09 Olanzapine (ZyPREXA ZYDIS) 2.5 mg PRN Q2HR PRN PO ANXIETY / AGITATION 07/06/21 01:15 09/14/21 21:08 Trazodone HCl (Desyrel) 50 mg PRN QHS PRN PO INSOMNIA 07/06/21 01:15 09/09/21 20:37 Acetaminophen (Tylenol) 650 mg PRN Q4HRS PRN PO MILD PAIN 1-3 07/06/21 10:30 09/06/21 17:39 Aspirin (Aspirin Enteric Coated) 81 mg DAILY PO 07/07/21 09:00 09/22/21 08:17 Atorvastatin Calcium (Lipitor) 10 mg QHS PO 07/06/21 21:00 09/22/21 20:26 Carvedilol (Coreg) 3.125 mg BIDWMEALS PO 07/06/21 17:00 07/25/21 17:52 DC 07/25/21 17:22 Gabapentin (Neurontin) 300 mg BID PO 07/06/21 21:00 08/30/21 12:29 DC 08/30/21 08:20 Metformin HCl (Glucophage Xr) 500 mg DAILYWBKFT PO 07/07/21 08:00 09/22/21 08:16 Multi-Ingredient Ointment (Analgesic [place]) 1 inna PRN QID PRN TP PAIN 07/06/21 10:30 UNV Phenytoin Sodium (Dilantin) 500 mg HS PO 07/06/21 21:00 07/07/21 22:27 DC 07/07/21 20:05 Tamsulosin HCl (Flomax) 0.4 mg DAILY PO 07/07/21 09:00 09/22/21 08:16 Polyethylene Glycol (miraLAX) 17 gm PRN DAILY PRN PO 1ST CHOICE CONSTIPATION 07/06/21 10:45 08/13/21 20:07 Non-Formulary Medication (Pravastatin Sodium ) 40 mg DAILY PO 07/07/21 09:00 UNV Phenyleph/Shark Oil/Min Oil/Petrol (Preparation H) 1 inna PRN QID PRN RC RECTAL PAIN 07/06/21 15:15 Phenytoin Sodium (Dilantin) 400 mg HS PO 07/08/21 21:00 07/11/21 23:36 DC 07/11/21 20:35 Albuterol/ Ipratropium (Combivent Respimat 20-100 Mcg) 1 puff QID INH 07/08/21 13:00 09/22/21 20:27 Docusate Sodium (Colace) 100 mg DAILY PO 07/09/21 09:00 09/22/21 08:17 Guaifenesin (Mucinex Er) 600 mg BID PO 07/08/21 21:00 09/22/21 20:26 Magnesium Hydroxide (Milk Of Magnesia) 2,400 mg PRN QHS PRN PO 2nd CHOICE CONSTIPATION 07/08/21 19:30 Cancel Phenytoin Sodium (Dilantin) 200 mg HS PO 07/12/21 21:00 09/22/21 20:27 Phenytoin Sodium (Dilantin) 100 mg DAILY PO 07/12/21 09:00 09/22/21 08:17 Carvedilol (Coreg) 6.25 mg BIDWMEALS PO 07/25/21 18:00 07/25/21 18:07 DC Carvedilol (Coreg) 6.25 mg BIDWMEALS PO 07/26/21 08:00 08/02/21 09:02 DC 08/02/21 08:33 Mirtazapine (Remeron) 15 mg QHS PO 07/29/21 21:00 09/22/21 20:26 Carvedilol (Coreg) 12.5 mg BIDWMEALS PO 08/02/21 17:00 09/22/21 17:11 Albuterol Sulfate (Ventolin Hfa Inhaler) 2 puff PRN Q4HRS PRN INH SHORTNESS OF BREATH 08/02/21 09:15 09/20/21 22:01 Melatonin (Melatonin) 3 mg QHS PO 08/05/21 21:00 08/18/21 14:06 DC 08/17/21 20:06 Oxycodone/ Acetaminophen (Percocet 10/325) 1 tab PRN Q6HRS PRN PO MOD-SEV PAIN 08/15/21 00:15 08/15/21 00:23 Melatonin (Melatonin) 6 mg QHS PO 08/18/21 21:00 09/22/21 20:27 Influenza Virus Vaccine Quadrival (Flulaval Quad [id number] Syringe) 0.5 ml ONCE ONCE VAX IM 08/20/21 09:00 08/20/21 09:01 DC 08/20/21 11:35 Gabapentin (Neurontin) 100 mg 1X ONCE PO 08/30/21 14:00 08/30/21 14:01 Cancel Gabapentin (Neurontin) 200 mg 1X ONCE PO 08/30/21 21:00 08/30/21 21:01 Cancel Gabapentin (Neurontin) 300 mg BID PO 08/31/21 09:00 09/22/21 20:26 Gabapentin (Neurontin) 300 mg 1X ONCE PO 08/30/21 12:45 08/30/21 12:46 DC 08/30/21 12:42 Nystatin (Nystop) 1 inna BID PRN TP antifungal 09/14/21 19:45 I have reviewed the current psychotropics carefully including drug interactions. Risk benefit ratio favors no change other than as noted in my dictated progress note. 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
--- NOTE | 2021-09-22 22:23 | NUR ---
Pt located in the hallway this evening. Pt calm and cooperative. Singing/yodeling. Compliant with shower and whole medications.
[2021-09-23 05:40] VITALS: BP 162/82
[2021-09-23] MEDS: IPRATROPIUM/ALBUTEROL 20/100mcg/INH INHALER. INH SCH ×4 (08:04→20:03)
[2021-09-23] MEDS: DOCUSATE SODIUM 100 MG CAPSULE PO SCH (08:05)
[2021-09-23] MEDS: PHENYTOIN SODIUM EXTENDED 100 MG CAPSULE PO SCH ×2 (08:05→20:03)
[2021-09-23] MEDS: GABAPENTIN 300 MG CAPSULE. PO SCH ×2 (08:05→20:02)
[2021-09-23] MEDS: TAMSULOSIN 0.4 MG CAP.ER.24H. PO SCH (08:05)
[2021-09-23] MEDS: ASPIRIN ENTERIC COATED 81 MG TABLET.DR. PO SCH (08:05)
[2021-09-23] MEDS: CARVEDILOL 12.5 MG TABLET PO SCH ×2 (08:05→17:19)
[2021-09-23] MEDS: metFORMIN XR 500 MG TAB.ER.24H PO SCH (08:06)
--- NOTE | 2021-09-23 09:22 | PDOC ---
Exam Note: Leo Note: This note is a late entry for 09/20/2021 covers elements not covered in my initial note. Subjective: The patient was seen individually in the evening of 09/20/2021 with Zion KOWALSKI, discussed and reviewed the chart. The patient slept 5 hours previous night. He has been fairly social. He made sexually inappropriate comment to one of the female nursing aids. Staff intervened he has not repeated that. I met with the patient in his room. Review of Systems: Ambulation impaired in wheelchair. He complains of some cough. Difficulty breathing at times. No CV, , eye, ENT system symptoms on review. Mental Status Exam: The patient is oriented to himself and situation. He had many questions about discharge plans, some of which are very understandable. I addressed with him as best as I could since social service staff is actively seeking placement. Abstraction fair. Computation impaired. Short-term memory is impaired. No suicidal or homicidal ideation. Laboratory Data: Reviewed. Impression: Major depressive disorder, in partial remission. Major neurocogn itive disorder, Alzheimer, vascular with delusion, depression, behavioral disturbance. Anxiety disorder unspecified. Impulse control disorder unspecified. Plan: No change from initial note. Assessment: Vital Signs/I&O: Vital Signs Date Time Temp Pulse Resp B/P (MAP) Pulse Ox O2 Delivery O2 Flow Rate FiO2 09/23/21 08:05 67 162/82 09/23/21 05:40 97.9 22 93 Room Air I & O 09/22/21 09/22/21 09/23/21 15:00 23:00 07:00 Intake Total 1260 ml 480 ml Balance 1260 ml 480 ml Labs: Laboratory Tests Test 09/23/21 07:41 Glucose (Fingerstick) 102 mg/dL (70-99) H Current Medications: Meds: Laboratory Tests Test 09/23/21 07:41 Glucose (Fingerstick) 102 mg/dL Current Medications Medications (Trade) Dose Ordered Sig/Aparna Route PRN Reason Start Time Stop Time Status Last Admin Dose Admin Acetaminophen (Tylenol) 650 mg PRN Q6HRS PRN PO MILD PAIN / TEMP > 100.3'F 07/06/21 00:30 Cancel Multi-Ingredient Ointment (Analgesic [place]) 1 inna PRN QID PRN TP MUSCLE PAIN 07/06/21 00:30 09/06/21 17:39 Al Hydroxide/Mg Hydroxide (Mylanta Plus Xs) 15 ml PRN AFTMEALHC PRN PO DYSPEPSIA 07/06/21 00:30 09/19/21 16:24 Magnesium Hydroxide (Milk Of Magnesia) 2,400 mg PRN QHS PRN PO 2ND CHOICE CONSTIPATION 07/06/21 00:30 07/14/21 08:13 Duloxetine HCl (Cymbalta) 20 mg HS PO 07/06/21 21:00 09/22/21 20:26 Duloxetine HCl (Cymbalta) 30 mg HS PO 07/06/21 21:00 09/22/21 20:26 Mirtazapine (Remeron) 7.5 mg HS PO 07/06/21 21:00 07/29/21 18:15 DC 07/28/21 20:09 Olanzapine (ZyPREXA ZYDIS) 2.5 mg PRN Q2HR PRN PO ANXIETY / AGITATION 07/06/21 01:15 09/14/21 21:08 Trazodone HCl (Desyrel) 50 mg PRN QHS PRN PO INSOMNIA 07/06/21 01:15 09/09/21 20:37 Acetaminophen (Tylenol) 650 mg PRN Q4HRS PRN PO MILD PAIN 1-3 07/06/21 10:30 09/06/21 17:39 Aspirin (Aspirin Enteric Coated) 81 mg DAILY PO 07/07/21 09:00 09/23/21 08:05 Atorvastatin Calcium (Lipitor) 10 mg QHS PO 07/06/21 21:00 09/22/21 20:26 Carvedilol (Coreg) 3.125 mg BIDWMEALS PO 07/06/21 17:00 07/25/21 17:52 DC 07/25/21 17:22 Gabapentin (Neurontin) 300 mg BID PO 07/06/21 21:00 08/30/21 12:29 DC 08/30/21 08:20 Metformin HCl (Glucophage Xr) 500 mg DAILYWBKFT PO 07/07/21 08:00 09/23/21 08:06 Multi-Ingredient Ointment (Analgesic [place]) 1 inna PRN QID PRN TP PAIN 07/06/21 10:30 UNV Phenytoin Sodium (Dilantin) 500 mg HS PO 07/06/21 21:00 07/07/21 22:27 DC 07/07/21 20:05 Tamsulosin HCl (Flomax) 0.4 mg DAILY PO 07/07/21 09:00 09/23/21 08:05 Polyethylene Glycol (miraLAX) 17 gm PRN DAILY PRN PO 1ST CHOICE CONSTIPATION 07/06/21 10:45 08/13/21 20:07 Non-Formulary Medication (Pravastatin Sodium ) 40 mg DAILY PO 07/07/21 09:00 UNV Phenyleph/Shark Oil/Min Oil/Petrol (Preparation H) 1 inna PRN QID PRN RC RECTAL PAIN 07/06/21 15:15 Phenytoin Sodium (Dilantin) 400 mg HS PO 07/08/21 21:00 07/11/21 23:36 DC 07/11/21 20:35 Albuterol/ Ipratropium (Combivent Respimat 20-100 Mcg) 1 puff QID INH 07/08/21 13:00 09/23/21 08:04 Docusate Sodium (Colace) 100 mg DAILY PO 07/09/21 09:00 09/23/21 08:05 Guaifenesin (Mucinex Er) 600 mg BID PO 07/08/21 21:00 09/23/21 08:05 Magnesium Hydroxide (Milk Of Magnesia) 2,400 mg PRN QHS PRN PO 2nd CHOICE CONSTIPATION 07/08/21 19:30 Cancel Phenytoin Sodium (Dilantin) 200 mg HS PO 07/12/21 21:00 09/22/21 20:27 Phenytoin Sodium (Dilantin) 100 mg DAILY PO 07/12/21 09:00 09/23/21 08:05 Carvedilol (Coreg) 6.25 mg BIDWMEALS PO 07/25/21 18:00 07/25/21 18:07 DC Carvedilol (Coreg) 6.25 mg BIDWMEALS PO 07/26/21 08:00 08/02/21 09:02 DC 08/02/21 08:33 Mirtazapine (Remeron) 15 mg QHS PO 07/29/21 21:00 09/22/21 20:26 Carvedilol (Coreg) 12.5 mg BIDWMEALS PO 08/02/21 17:00 09/23/21 08:05 Albuterol Sulfate (Ventolin Hfa Inhaler) 2 puff PRN Q4HRS PRN INH SHORTNESS OF BREATH 08/02/21 09:15 09/20/21 22:01 Melatonin (Melatonin) 3 mg QHS PO 08/05/21 21:00 08/18/21 14:06 DC 08/17/21 20:06 Oxycodone/ Acetaminophen (Percocet 10/325) 1 tab PRN Q6HRS PRN PO MOD-SEV PAIN 08/15/21 00:15 08/15/21 00:23 Melatonin (Melatonin) 6 mg QHS PO 08/18/21 21:00 09/22/21 20:27 Influenza Virus Vaccine Quadrival (Flulaval Quad Syringe) 0.5 ml ONCE ONCE VAX IM 08/20/21 09:00 08/20/21 09:01 DC 08/20/21 11:35 Gabapentin (Neurontin) 100 mg 1X ONCE PO 08/30/21 14:00 08/30/21 14:01 Cancel Gabapentin (Neurontin) 200 mg 1X ONCE PO 08/30/21 21:00 08/30/21 21:01 Cancel Gabapentin (Neurontin) 300 mg BID PO 08/31/21 09:00 09/23/21 08:05 Gabapentin (Neurontin) 300 mg 1X ONCE PO 08/30/21 12:45 08/30/21 12:46 DC 08/30/21 12:42 Nystatin (Nystop) 1 inna BID PRN TP antifungal 09/14/21 19:45 I have reviewed the current psychotropics carefully including drug interactions. Risk benefit ratio favors no change other than as noted in my dictated progress note. Diagnosis: Problems: (1) Impulse control disorder, unspecified (2) Anxiety disorder, unspecified (3) Dementia, vascular, with depression (4) Dementia, vascular, with delusions (5) Major neurocognitive disorder (6) Dementia in Alzheimer's disease with depression (7) Dementia in Alzheimer's disease with delusions (8) Dementia of the Alzheimer's type with early onset with behavioral disturbance (9) Major depressive disorder in partial remission NIK LOYA MD Sep 23, 2021 09:22
--- NOTE | 2021-09-23 10:06 | PDOC ---
Exam Note: Leo Note: This note is a late entry for 09/21/2021 covers elements not covered in my initial note. Subjective: The patient was seen individually in the evening of 09/21/2021 with Tenisha KOWALSKI, discussed and reviewed the chart. The patient slept 5 hours previous night. I met with the patient in his room. Review of Systems: Ambulation impaired in wheelchair. No CV, , pulmonary, eye, ENT system symptoms on review. Mental Status Exam: The patient is oriented to himself and situation. He was lying in bed. We discussed the days, activity. He has been coming out of his room, which is an improvement. Again he had many questions about discharge plans which we addressed. Speech has some latency coherent. Abstraction fair. Computation impaired. Short-term memory is impaired. Laboratory Data: Reviewed. Impression: Major depressive disorder, in partial remission. Major neurocognitive disorder, Alzheimer, vascular with delusion, depression, behavioral disturbance. Anxiety disorder unspecified. Impulse control disorder unspecified. Plan: No change from initial note. Assessment: Vital Signs/I&O: Vital Signs Date Time Temp Pulse Resp B/P (MAP) Pulse Ox O2 Delivery O2 Flow Rate FiO2 09/23/21 08:05 67 162/82 09/23/21 05:40 97.9 22 93 Room Air I & O 09/22/21 09/22/21 09/23/21 15:00 23:00 07:00 Intake Total 1260 ml 480 ml Balance 1260 ml 480 ml Labs: Laboratory Tests Test 09/23/21 07:41 Glucose (Fingerstick) 102 mg/dL (70-99) H Current Medications: Meds: Laboratory Tests Test 09/23/21 07:41 Glucose (Fingerstick) 102 mg/dL Current Medications Medications (Trade) Dose Ordered Sig/Aparna Route PRN Reason Start Time Stop Time Status Last Admin Dose Admin Acetaminophen (Tylenol) 650 mg PRN Q6HRS PRN PO MILD PAIN / TEMP > 100.3'F 07/06/21 00:30 Cancel Multi-Ingredient Ointment (Analgesic [place]) 1 inna PRN QID PRN TP MUSCLE PAIN 07/06/21 00:30 09/06/21 17:39 Al Hydroxide/Mg Hydroxide (Mylanta Plus Xs) 15 ml PRN AFTMEALHC PRN PO DYSPEPSIA 07/06/21 00:30 09/19/21 16:24 Magnesium Hydroxide (Milk Of Magnesia) 2,400 mg PRN QHS PRN PO 2ND CHOICE CONSTIPATION 07/06/21 00:30 07/14/21 08:13 Duloxetine HCl (Cymbalta) 20 mg HS PO 07/06/21 21:00 09/22/21 20:26 Duloxetine HCl (Cymbalta) 30 mg HS PO 07/06/21 21:00 09/22/21 20:26 Mirtazapine (Remeron) 7.5 mg HS PO 07/06/21 21:00 07/29/21 18:15 DC 07/28/21 20:09 Olanzapine (ZyPREXA ZYDIS) 2.5 mg PRN Q2HR PRN PO ANXIETY / AGITATION 07/06/21 01:15 09/14/21 21:08 Trazodone HCl (Desyrel) 50 mg PRN QHS PRN PO INSOMNIA 07/06/21 01:15 09/09/21 20:37 Acetaminophen (Tylenol) 650 mg PRN Q4HRS PRN PO MILD PAIN 1-3 07/06/21 10:30 09/06/21 17:39 Aspirin (Aspirin Enteric Coated) 81 mg DAILY PO 07/07/21 09:00 09/23/21 08:05 Atorvastatin Calcium (Lipitor) 10 mg QHS PO 07/06/21 21:00 09/22/21 20:26 Carvedilol (Coreg) 3.125 mg BIDWMEALS PO 07/06/21 17:00 07/25/21 17:52 DC 07/25/21 17:22 Gabapentin (Neurontin) 300 mg BID PO 07/06/21 21:00 08/30/21 12:29 DC 08/30/21 08:20 Metformin HCl (Glucophage Xr) 500 mg DAILYWBKFT PO 07/07/21 08:00 09/23/21 08:06 Multi-Ingredient Ointment (Analgesic [place]) 1 inna PRN QID PRN TP PAIN 07/06/21 10:30 UNV Phenytoin Sodium (Dilantin) 500 mg HS PO 07/06/21 21:00 07/07/21 22:27 DC 07/07/21 20:05 Tamsulosin HCl (Flomax) 0.4 mg DAILY PO 07/07/21 09:00 09/23/21 08:05 Polyethylene Glycol (miraLAX) 17 gm PRN DAILY PRN PO 1ST CHOICE CONSTIPATION 07/06/21 10:45 08/13/21 20:07 Non-Formulary Medication (Pravastatin Sodium ) 40 mg DAILY PO 07/07/21 09:00 UNV Phenyleph/Shark Oil/Min Oil/Petrol (Preparation H) 1 inna PRN QID PRN RC RECTAL PAIN 07/06/21 15:15 Phenytoin Sodium (Dilantin) 400 mg HS PO 07/08/21 21:00 07/11/21 23:36 DC 07/11/21 20:35 Albuterol/ Ipratropium (Combivent Respimat 20-100 Mcg) 1 puff QID INH 07/08/21 13:00 09/23/21 08:04 Docusate Sodium (Colace) 100 mg DAILY PO 07/09/21 09:00 09/23/21 08:05 Guaifenesin (Mucinex Er) 600 mg BID PO 07/08/21 21:00 09/23/21 08:05 Magnesium Hydroxide (Milk Of Magnesia) 2,400 mg PRN QHS PRN PO 2nd CHOICE CONSTIPATION 07/08/21 19:30 Cancel Phenytoin Sodium (Dilantin) 200 mg HS PO 07/12/21 21:00 09/22/21 20:27 Phenytoin Sodium (Dilantin) 100 mg DAILY PO 07/12/21 09:00 09/23/21 08:05 Carvedilol (Coreg) 6.25 mg BIDWMEALS PO 07/25/21 18:00 07/25/21 18:07 DC Carvedilol (Coreg) 6.25 mg BIDWMEALS PO 07/26/21 08:00 08/02/21 09:02 DC 08/02/21 08:33 Mirtazapine (Remeron) 15 mg QHS PO 07/29/21 21:00 09/22/21 20:26 Carvedilol (Coreg) 12.5 mg BIDWMEALS PO 08/02/21 17:00 09/23/21 08:05 Albuterol Sulfate (Ventolin Hfa Inhaler) 2 puff PRN Q4HRS PRN INH SHORTNESS OF BREATH 08/02/21 09:15 09/20/21 22:01 Melatonin (Melatonin) 3 mg QHS PO 08/05/21 21:00 08/18/21 14:06 DC 08/17/21 20:06 Oxycodone/ Acetaminophen (Percocet 10) 1 tab PRN Q6HRS PRN PO MOD-SEV PAIN 08/15/21 00:15 08/15/21 00:23 Melatonin (Melatonin) 6 mg QHS PO 08/18/21 21:00 09/22/21 20:27 Influenza Virus Vaccine Quadrival (Flulaval Quad Syringe) 0.5 ml ONCE ONCE VAX IM 08/20/21 09:00 08/20/21 09:01 DC 08/20/21 11:35 Gabapentin (Neurontin) 100 mg 1X ONCE PO 08/30/21 14:00 08/30/21 14:01 Cancel Gabapentin (Neurontin) 200 mg 1X ONCE PO 08/30/21 21:00 08/30/21 21:01 Cancel Gabapentin (Neurontin) 300 mg BID PO 08/31/21 09:00 09/23/21 08:05 Gabapentin (Neurontin) 300 mg 1X ONCE PO 08/30/21 12:45 08/30/21 12:46 DC 08/30/21 12:42 Nystatin (Nystop) 1 inna BID PRN TP antifungal 09/14/21 19:45 I have reviewed the current psychotropics carefully including drug interactions. Risk benefit ratio favors no change other than as noted in my dictated progress note. Diagnosis: Problems: (1) Impulse control disorder, unspecified (2) Anxiety disorder, unspecified (3) Dementia, vascular, with depression (4) Dementia, vascular, with delusions (5) Major neurocognitive disorder (6) Dementia in Alzheimer's disease with depression (7) Dementia in Alzheimer's disease with delusions (8) Dementia of the Alzheimer's type with early onset with behavioral disturbance (9) Major depressive disorder in partial remission NIK LOYA MD Sep 23, 2021 10:06
--- NOTE | 2021-09-23 14:28 | NUR ---
Nursing note: Patient in dinning room for morning medications & assessment. He is compliant with medications taken whole. Patient is A/O to self only. He was irritable this am r/t staff wanting him to stay up rather than going back to bed. Patient participated in groups in the am in the day room. He propels self in w/c, & self transfers. Patient denies pain/discomfort/SI/AH/VH/delusions at this time. He is currently in bed resting with eyes closed. Will continue to monitor.
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
[2021-09-23 16:03] VITALS: BP 130/89
[2021-09-23] MEDS: MIRTAZAPINE 15 MG TABLET PO SCH (20:02)
[2021-09-23] MEDS: MELATONIN 3 MG TABLET PO SCH (20:02)
[2021-09-23] MEDS: DULoxetine HCL 30 MG CAPSULE.DR PO SCH (20:02)
[2021-09-23] MEDS: DULoxetine HCL 20 MG CAPSULE.DR PO SCH (20:02)
[2021-09-23] MEDS: ATORVASTATIN CALCIUM 10 MG TABLET. PO SCH (20:02)
[2021-09-23] MEDS: ALBUTEROL SULFATE 8GM INHALER. INH PRN (20:03)
--- NOTE | 2021-09-23 21:52 | PDOC ---
Exam Note: Leo Note: Please also refer to the separate dictated note~for this date of service dictated separately.~Patient seen individually. Discussed the patient with Nursing staff reviewed the chart.~Reviewed interim history and current functioning. Reviewed vital signs,~Labs/ Radiology~and current medications noted below. Continue current treatment with the changes noted in the dictated addendum note Assessment: Vital Signs/I&O: Vital Signs Date Time Temp Pulse Resp B/P (MAP) Pulse Ox O2 Delivery O2 Flow Rate FiO2 09/23/21 17:19 81 130/89 09/23/21 16:03 98.0 20 92.0 09/23/21 05:40 93 Room Air I & O 09/22/21 09/22/21 09/23/21 15:00 23:00 07:00 Intake Total 1260 ml 480 ml Balance 1260 ml 480 ml Labs: Laboratory Tests Test 09/23/21 07:41 Glucose (Fingerstick) 102 mg/dL (70-99) H Current Medications: Meds: Laboratory Tests Test 09/23/21 07:41 Glucose (Fingerstick) 102 mg/dL Current Medications Medications (Trade) Dose Ordered Sig/Aparna Route PRN Reason Start Time Stop Time Status Last Admin Dose Admin Acetaminophen (Tylenol) 650 mg PRN Q6HRS PRN PO MILD PAIN / TEMP > 100.3'F 07/06/21 00:30 Cancel Multi-Ingredient Ointment (Analgesic [place]) 1 inna PRN QID PRN TP MUSCLE PAIN 07/06/21 00:30 09/06/21 17:39 Al Hydroxide/Mg Hydroxide (Mylanta Plus Xs) 15 ml PRN AFTMEALHC PRN PO DYSPEPSIA 07/06/21 00:30 09/19/21 16:24 Magnesium Hydroxide (Milk Of Magnesia) 2,400 mg PRN QHS PRN PO 2ND CHOICE CONSTIPATION 07/06/21 00:30 07/14/21 08:13 Duloxetine HCl (Cymbalta) 20 mg HS PO 07/06/21 21:00 09/23/21 20:02 Duloxetine HCl (Cymbalta) 30 mg HS PO 07/06/21 21:00 09/23/21 20:02 Mirtazapine (Remeron) 7.5 mg HS PO 07/06/21 21:00 07/29/21 18:15 DC 07/28/21 20:09 Olanzapine (ZyPREXA ZYDIS) 2.5 mg PRN Q2HR PRN PO ANXIETY / AGITATION 07/06/21 01:15 09/14/21 21:08 Trazodone HCl (Desyrel) 50 mg PRN QHS PRN PO INSOMNIA 07/06/21 01:15 09/09/21 20:37 Acetaminophen (Tylenol) 650 mg PRN Q4HRS PRN PO MILD PAIN 1-3 07/06/21 10:30 09/06/21 17:39 Aspirin (Aspirin Enteric Coated) 81 mg DAILY PO 07/07/21 09:00 09/23/21 08:05 Atorvastatin Calcium (Lipitor) 10 mg QHS PO 07/06/21 21:00 09/23/21 20:02 Carvedilol (Coreg) 3.125 mg BIDWMEALS PO 07/06/21 17:00 07/25/21 17:52 DC 07/25/21 17:22 Gabapentin (Neurontin) 300 mg BID PO 07/06/21 21:00 08/30/21 12:29 DC 08/30/21 08:20 Metformin HCl (Glucophage Xr) 500 mg DAILYWBKFT PO 07/07/21 08:00 09/23/21 08:06 Multi-Ingredient Ointment (Analgesic [place]) 1 inna PRN QID PRN TP PAIN 07/06/21 10:30 UNV Phenytoin Sodium (Dilantin) 500 mg HS PO 07/06/21 21:00 07/07/21 22:27 DC 07/07/21 20:05 Tamsulosin HCl (Flomax) 0.4 mg DAILY PO 07/07/21 09:00 09/23/21 08:05 Polyethylene Glycol (miraLAX) 17 gm PRN DAILY PRN PO 1ST CHOICE CONSTIPATION 07/06/21 10:45 08/13/21 20:07 Non-Formulary Medication (Pravastatin Sodium ) 40 mg DAILY PO 07/07/21 09:00 UNV Phenyleph/Shark Oil/Min Oil/Petrol (Preparation H) 1 inna PRN QID PRN RC RECTAL PAIN 07/06/21 15:15 Phenytoin Sodium (Dilantin) 400 mg HS PO 07/08/21 21:00 07/11/21 23:36 DC 07/11/21 20:35 Albuterol/ Ipratropium (Combivent Respimat 20-100 Mcg) 1 puff QID INH 07/08/21 13:00 09/23/21 20:03 Docusate Sodium (Colace) 100 mg DAILY PO 07/09/21 09:00 09/23/21 08:05 Guaifenesin (Mucinex Er) 600 mg BID PO 07/08/21 21:00 09/23/21 20:02 Magnesium Hydroxide (Milk Of Magnesia) 2,400 mg PRN QHS PRN PO 2nd CHOICE CONSTIPATION 07/08/21 19:30 Cancel Phenytoin Sodium (Dilantin) 200 mg HS PO 07/12/21 21:00 09/23/21 20:03 Phenytoin Sodium (Dilantin) 100 mg DAILY PO 07/12/21 09:00 09/23/21 08:05 Carvedilol (Coreg) 6.25 mg BIDWMEALS PO 07/25/21 18:00 07/25/21 18:07 DC Carvedilol (Coreg) 6.25 mg BIDWMEALS PO 07/26/21 08:00 08/02/21 09:02 DC 08/02/21 08:33 Mirtazapine (Remeron) 15 mg QHS PO 07/29/21 21:00 09/23/21 20:02 Carvedilol (Coreg) 12.5 mg BIDWMEALS PO 08/02/21 17:00 09/23/21 17:19 Albuterol Sulfate (Ventolin Hfa Inhaler) 2 puff PRN Q4HRS PRN INH SHORTNESS OF BREATH 08/02/21 09:15 09/23/21 20:03 Melatonin (Melatonin) 3 mg QHS PO 08/05/21 21:00 08/18/21 14:06 DC 08/17/21 20:06 Oxycodone/ Acetaminophen (Percocet 10/325) 1 tab PRN Q6HRS PRN PO MOD-SEV PAIN 08/15/21 00:15 08/15/21 00:23 Melatonin (Melatonin) 6 mg QHS PO 08/18/21 21:00 09/23/21 20:02 Influenza Virus Vaccine Quadrival (Flulaval Quad [id number] Syringe) 0.5 ml ONCE ONCE VAX IM 08/20/21 09:00 08/20/21 09:01 DC 08/20/21 11:35 Gabapentin (Neurontin) 100 mg 1X ONCE PO 08/30/21 14:00 08/30/21 14:01 Cancel Gabapentin (Neurontin) 200 mg 1X ONCE PO 08/30/21 21:00 08/30/21 21:01 Cancel Gabapentin (Neurontin) 300 mg BID PO 08/31/21 09:00 09/23/21 20:02 Gabapentin (Neurontin) 300 mg 1X ONCE PO 08/30/21 12:45 08/30/21 12:46 DC 08/30/21 12:42 Nystatin (Nystop) 1 inna BID PRN TP antifungal 09/14/21 19:45 I have reviewed the current psychotropics carefully including drug interactions. Risk benefit ratio favors no change other than as noted in my dictated progress note. 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
--- NOTE | 2021-09-24 00:20 | NUR ---
Nursing Note Pt pleasant and cooperative, no behaviors. Med compliant in room singing.
[2021-09-24 06:25] VITALS: BP 154/82
[2021-09-24] MEDS: GABAPENTIN 300 MG CAPSULE. PO SCH ×2 (08:14→19:35)
[2021-09-24] MEDS: DOCUSATE SODIUM 100 MG CAPSULE PO SCH (08:15)
[2021-09-24] MEDS: metFORMIN XR 500 MG TAB.ER.24H PO SCH (08:15)
[2021-09-24] MEDS: ASPIRIN ENTERIC COATED 81 MG TABLET.DR. PO SCH (08:15)
[2021-09-24] MEDS: PHENYTOIN SODIUM EXTENDED 100 MG CAPSULE PO SCH ×2 (08:15→19:36)
[2021-09-24] MEDS: CARVEDILOL 12.5 MG TABLET PO SCH ×2 (08:15→17:16)
[2021-09-24] MEDS: TAMSULOSIN 0.4 MG CAP.ER.24H. PO SCH (08:15)
[2021-09-24] MEDS: IPRATROPIUM/ALBUTEROL 20/100mcg/INH INHALER. INH SCH ×4 (08:16→17:16)
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
[2021-09-24 15:48] VITALS: BP 128/73
[2021-09-24] MEDS: MELATONIN 3 MG TABLET PO SCH (19:35)
[2021-09-24] MEDS: ATORVASTATIN CALCIUM 10 MG TABLET. PO SCH (19:36)
[2021-09-24] MEDS: MIRTAZAPINE 15 MG TABLET PO SCH (19:36)
[2021-09-24] MEDS: DULoxetine HCL 20 MG CAPSULE.DR PO SCH (19:36)
[2021-09-24] MEDS: DULoxetine HCL 30 MG CAPSULE.DR PO SCH (19:36)
--- NOTE | 2021-09-24 22:51 | NUR ---
Nursing note Pt very somatic this pm asking for his inhaler, states "I'm wheezing over here!! Get me that inhaler now!!" Listened to his lungs and is certainly wheezing. Rescue inhaler along with maintenance inhaler given to patient. Pt med compliant and cooperative with assessment. Better after taking the rescue inhaler and calming down. Allows assessment no complaints at this time.
--- NOTE | 2021-09-25 00:31 | PN ---
DATE: 09/23/2021 PSYCHIATRIC PROGRESS NOTE This late entry 09/23 covers elements not covered in my initial note. SUBJECTIVE: I met with the patient on the evening of 09/[address] outside his room. Discussed with DEX Angel. The patient slept 6 hours previous night. He sometimes refers to me as "father" in the anglican sense and does get confused. REVIEW OF SYSTEMS: Ambulation impaired, in wheelchair. No CV, , pulmonary, eye system symptoms on review. Does complain of intermittent cough. MENTAL STATUS EXAMINATION: Oriented to himself, situation. Speech is coherent. Abstraction fair. Computation impaired. Language function intact. Mood and affect remains somewhat anxious, labile. LABORATORY DATA: Reviewed. IMPRESSION: Unchanged from initial note. PLAN: No change from initial note. Social service staff is actively finding placement for the patient with limited success so far. ARIE DR: Melissa TID: [phone]
--- NOTE | 2021-09-25 00:43 | PN ---
DATE: 09/22/2021 PSYCHIATRIC PROGRESS NOTE This late entry 09/22/2021 covers elements not covered in my initial note of 09/22/2021. SUBJECTIVE: The patient was also reviewed at treatment team meeting with entire team including the social service staff and Maria Fernanda Feliciano, program architect and Anny, nursing staff. He has had his flu vaccine on 08/20/2021, has had complaints of ongoing cough, did attend 4 groups, doing generally about the same. REVIEW OF SYSTEMS: Positive for the cough, impaired ambulation, in wheelchair. No CV, , eye, ENT system symptoms on review. MENTAL STATUS EXAMINATION: Oriented to himself, situation. Speech is coherent, has some latency. Abstraction fair. Computation impaired. Language function intact. Attention span short. Mood and affect withdrawn. LABORATORY DATA: Reviewed. IMPRESSION: Unchanged from initial. PLAN: No change from initial note. SAQIB DR: Melissa TID: [id number]
[2021-09-25 05:39] VITALS: BP 145/79
[2021-09-25] MEDS: metFORMIN XR 500 MG TAB.ER.24H PO SCH (07:19)
[2021-09-25] MEDS: TAMSULOSIN 0.4 MG CAP.ER.24H. PO SCH (07:19)
[2021-09-25] MEDS: GABAPENTIN 300 MG CAPSULE. PO SCH ×2 (07:19→20:38)
[2021-09-25] MEDS: CARVEDILOL 12.5 MG TABLET PO SCH ×2 (07:19→17:24)
[2021-09-25] MEDS: DOCUSATE SODIUM 100 MG CAPSULE PO SCH (07:20)
[2021-09-25] MEDS: IPRATROPIUM/ALBUTEROL 20/100mcg/INH INHALER. INH SCH ×4 (07:20→20:37)
[2021-09-25] MEDS: PHENYTOIN SODIUM EXTENDED 100 MG CAPSULE PO SCH ×2 (07:20→20:38)
[2021-09-25] MEDS: ASPIRIN ENTERIC COATED 81 MG TABLET.DR. PO SCH (07:20)
--- NOTE | 2021-09-25 08:33 | PDOC ---
Exam Note: Leo Note: Late entry for 09/24/2021. Please also refer to the separate dictated note~for this date of service dictated separately.~Patient seen individually. Discussed the patient with Nursing staff reviewed the chart.~Reviewed interim history and current functioning. Reviewed vital signs,~Labs/ Radiology~and current medic ations noted below. Continue current treatment with the changes noted in the dictated addendum note Assessment: Vital Signs/I&O: Vital Signs Date Time Temp Pulse Resp B/P (MAP) Pulse Ox O2 Delivery O2 Flow Rate FiO2 09/25/21 07:19 83 145/79 09/25/21 05:39 97.7 22 94 09/23/21 16:03 92.0 09/23/21 05:40 Room Air I & O 09/24/21 09/24/21 09/25/21 15:00 23:00 07:00 Intake Total 1080 ml 900 ml Balance 1080 ml 900 ml Labs: Laboratory Tests Test 09/25/21 07:30 Glucose (Fingerstick) 131 mg/dL (70-99) H Current Medications: I have reviewed the current psychotropics carefully including drug interactions. Risk benefit ratio favors no change other than as noted in my dictated progress note. 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
[2021-09-25] MEDS: ALBUTEROL SULFATE 8GM INHALER. INH PRN (12:19)
[2021-09-25 15:27] VITALS: BP 141/71
--- NOTE | 2021-09-25 18:15 | NUR ---
Patient has been social, calm, compliant, and disorganized during this shift. He spent most of the afternoon withdrawn to his room. He was attention seeking and demanding during meals, repeatedly asking multiple staff members for an Ensure even after being told that he could have one when staff are not busy. Will continue to monitor and report to oncoming staff.
[2021-09-25] MEDS: DULoxetine HCL 30 MG CAPSULE.DR PO SCH (20:38)
[2021-09-25] MEDS: ATORVASTATIN CALCIUM 10 MG TABLET. PO SCH (20:38)
[2021-09-25] MEDS: MIRTAZAPINE 15 MG TABLET PO SCH (20:38)
[2021-09-25] MEDS: MELATONIN 3 MG TABLET PO SCH (20:38)
[2021-09-25] MEDS: DULoxetine HCL 20 MG CAPSULE.DR PO SCH (20:38)
--- NOTE | 2021-09-25 21:30 | PDOC ---
Exam Note: Leo Note: Please also refer to the separate dictated note~for this date of service dictated separately.~Patient seen individually. Discussed the patient with Nursing staff reviewed the chart.~Reviewed interim history and current functioning. Reviewed vital signs,~Labs/ Radiology~and current medications noted below. Continue current treatment with the changes noted in the dictated addendum note Assessment: Vital Signs/I&O: Vital Signs Date Time Temp Pulse Resp B/P (MAP) Pulse Ox O2 Delivery O2 Flow Rate FiO2 09/25/21 17:24 75 141/71 09/25/21 15:27 97.4 18 96 Room Air 09/23/21 16:03 92.0 I & O 09/24/21 09/24/21 09/25/21 15:00 23:00 07:00 Intake Total 1080 ml 900 ml Balance 1080 ml 900 ml Labs: Laboratory Tests Test 09/25/21 06:00 09/25/21 07:30 SARS-CoV-2 (PCR) Not detected (NOT DETECTD) Glucose (Fingerstick) 131 mg/dL (70-99) H Current Medications: Meds: Laboratory Tests Test 09/25/21 06:00 09/25/21 07:30 Coronavirus (COVID-19)(PCR) Not detected Glucose (Fingerstick) 131 mg/dL Current Medications Medications (Trade) Dose Ordered Sig/Aparna Route PRN Reason Start Time Stop Time Status Last Admin Dose Admin Acetaminophen (Tylenol) 650 mg PRN Q6HRS PRN PO MILD PAIN / TEMP > 100.3'F 07/06/21 00:30 Cancel Multi-Ingredient Ointment (Analgesic [place]) 1 inna PRN QID PRN TP MUSCLE PAIN 07/06/21 00:30 09/06/21 17:39 Al Hydroxide/Mg Hydroxide (Mylanta Plus Xs) 15 ml PRN AFTMEALHC PRN PO DYSPEPSIA 07/06/21 00:30 09/19/21 16:24 Magnesium Hydroxide (Milk Of Magnesia) 2,400 mg PRN QHS PRN PO 2ND CHOICE CONSTIPATION 07/06/21 00:30 07/14/21 08:13 Duloxetine HCl (Cymbalta) 20 mg HS PO 07/06/21 21:00 09/25/21 20:38 Duloxetine HCl (Cymbalta) 30 mg HS PO 07/06/21 21:00 09/25/21 20:38 Mirtazapine (Remeron) 7.5 mg HS PO 07/06/21 21:00 07/29/21 18:15 DC 07/28/21 20:09 Olanzapine (ZyPREXA ZYDIS) 2.5 mg PRN Q2HR PRN PO ANXIETY / AGITATION 07/06/21 01:15 09/14/21 21:08 Trazodone HCl (Desyrel) 50 mg PRN QHS PRN PO INSOMNIA 07/06/21 01:15 09/09/21 20:37 Acetaminophen (Tylenol) 650 mg PRN Q4HRS PRN PO MILD PAIN 1-3 07/06/21 10:30 09/06/21 17:39 Aspirin (Aspirin Enteric Coated) 81 mg DAILY PO 07/07/21 09:00 09/25/21 07:20 Atorvastatin Calcium (Lipitor) 10 mg QHS PO 07/06/21 21:00 09/25/21 20:38 Carvedilol (Coreg) 3.125 mg BIDWMEALS PO 07/06/21 17:00 07/25/21 17:52 DC 07/25/21 17:22 Gabapentin (Neurontin) 300 mg BID PO 07/06/21 21:00 08/30/21 12:29 DC 08/30/21 08:20 Metformin HCl (Glucophage Xr) 500 mg DAILYWBKFT PO 07/07/21 08:00 09/25/21 07:19 Multi-Ingredient Ointment (Analgesic [place]) 1 inna PRN QID PRN TP PAIN 07/06/21 10:30 UNV Phenytoin Sodium (Dilantin) 500 mg HS PO 07/06/21 21:00 07/07/21 22:27 DC 07/07/21 20:05 Tamsulosin HCl (Flomax) 0.4 mg DAILY PO 07/07/21 09:00 09/25/21 07:19 Polyethylene Glycol (miraLAX) 17 gm PRN DAILY PRN PO 1ST CHOICE CONSTIPATION 07/06/21 10:45 08/13/21 20:07 Non-Formulary Medication (Pravastatin Sodium ) 40 mg DAILY PO 07/07/21 09:00 UNV Phenyleph/Shark Oil/Min Oil/Petrol (Preparation H) 1 inna PRN QID PRN RC RECTAL PAIN 07/06/21 15:15 Phenytoin Sodium (Dilantin) 400 mg HS PO 07/08/21 21:00 07/11/21 23:36 DC 07/11/21 20:35 Albuterol/ Ipratropium (Combivent Respimat 20-100 Mcg) 1 puff QID INH 07/08/21 13:00 09/25/21 20:37 Docusate Sodium (Colace) 100 mg DAILY PO 07/09/21 09:00 09/25/21 07:20 Guaifenesin (Mucinex Er) 600 mg BID PO 07/08/21 21:00 09/25/21 20:38 Magnesium Hydroxide (Milk Of Magnesia) 2,400 mg PRN QHS PRN PO 2nd CHOICE CONSTIPATION 07/08/21 19:30 Cancel Phenytoin Sodium (Dilantin) 200 mg HS PO 07/12/21 21:00 09/25/21 20:38 Phenytoin Sodium (Dilantin) 100 mg DAILY PO 07/12/21 09:00 09/25/21 07:20 Carvedilol (Coreg) 6.25 mg BIDWMEALS PO 07/25/21 18:00 07/25/21 18:07 DC Carvedilol (Coreg) 6.25 mg BIDWMEALS PO 07/26/21 08:00 08/02/21 09:02 DC 08/02/21 08:33 Mirtazapine (Remeron) 15 mg QHS PO 07/29/21 21:00 09/25/21 20:38 Carvedilol (Coreg) 12.5 mg BIDWMEALS PO 08/02/21 17:00 09/25/21 17:24 Albuterol Sulfate (Ventolin Hfa Inhaler) 2 puff PRN Q4HRS PRN INH SHORTNESS OF BREATH 08/02/21 09:15 09/25/21 12:19 Melatonin (Melatonin) 3 mg QHS PO 08/05/21 21:00 08/18/21 14:06 DC 08/17/21 20:06 Oxycodone/ Acetaminophen (Percocet 10/325) 1 tab PRN Q6HRS PRN PO MOD-SEV PAIN 08/15/21 00:15 08/15/21 00:23 Melatonin (Melatonin) 6 mg QHS PO 08/18/21 21:00 09/25/21 20:38 Influenza Virus Vaccine Quadrival (Flulaval Quad Syringe) 0.5 ml ONCE ONCE VAX IM 08/20/21 09:00 08/20/21 09:01 DC 08/20/21 11:35 Gabapentin (Neurontin) 100 mg 1X ONCE PO 08/30/21 14:00 08/30/21 14:01 Cancel Gabapentin (Neurontin) 200 mg 1X ONCE PO 08/30/21 21:00 08/30/21 21:01 Cancel Gabapentin (Neurontin) 300 mg BID PO 08/31/21 09:00 09/25/21 20:38 Gabapentin (Neurontin) 300 mg 1X ONCE PO 08/30/21 12:45 08/30/21 12:46 DC 08/30/21 12:42 Nystatin (Nystop) 1 inna BID PRN TP antifungal 09/14/21 19:45 I have reviewed the current psychotropics carefully including drug interactions. Risk benefit ratio favors no change other than as noted in my dictated progress note. 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
[2021-09-26 06:28] VITALS: BP 144/72
[2021-09-26] MEDS: GABAPENTIN 300 MG CAPSULE. PO SCH ×2 (08:38→21:21)
[2021-09-26] MEDS: TAMSULOSIN 0.4 MG CAP.ER.24H. PO SCH (08:38)
[2021-09-26] MEDS: CARVEDILOL 12.5 MG TABLET PO SCH ×2 (08:38→17:16)
[2021-09-26] MEDS: metFORMIN XR 500 MG TAB.ER.24H PO SCH (08:38)
[2021-09-26] MEDS: IPRATROPIUM/ALBUTEROL 20/100mcg/INH INHALER. INH SCH ×4 (08:39→21:22)
[2021-09-26] MEDS: PHENYTOIN SODIUM EXTENDED 100 MG CAPSULE PO SCH ×2 (08:39→21:21)
[2021-09-26] MEDS: DOCUSATE SODIUM 100 MG CAPSULE PO SCH (08:39)
[2021-09-26] MEDS: ASPIRIN ENTERIC COATED 81 MG TABLET.DR. PO SCH (08:40)
[2021-09-26 15:28] VITALS: BP 130/60
--- NOTE | 2021-09-26 18:30 | NUR ---
Patient has been social, calm, compliant, and disorganized during this shift. He spent most of the shift in the day room being social with peers. Will continue to monitor and report to oncoming staff.
[2021-09-26] MEDS: DULoxetine HCL 30 MG CAPSULE.DR PO SCH (21:20)
[2021-09-26] MEDS: DULoxetine HCL 20 MG CAPSULE.DR PO SCH (21:20)
[2021-09-26] MEDS: ATORVASTATIN CALCIUM 10 MG TABLET. PO SCH (21:21)
[2021-09-26] MEDS: MELATONIN 3 MG TABLET PO SCH (21:21)
[2021-09-26] MEDS: MIRTAZAPINE 15 MG TABLET PO SCH (21:21)
--- NOTE | 2021-09-26 21:44 | PDOC ---
Exam Note: Leo Note: Please also refer to the separate dictated note~for this date of service dictated separately.~Patient seen individually. Discussed the patient with Nursing staff reviewed the chart.~Reviewed interim history and current functioning. Reviewed vital signs,~Labs/ Radiology~and current medications noted below. Continue current treatment with the changes noted in the dictated addendum note Assessment: Vital Signs/I&O: Vital Signs Date Time Temp Pulse Resp B/P (MAP) Pulse Ox O2 Delivery O2 Flow Rate FiO2 09/26/21 17:16 68 130/60 09/26/21 15:28 97.9 18 97 09/26/21 06:28 Room Air 09/23/21 16:03 92.0 I & O 09/25/21 09/25/21 09/26/21 15:00 23:00 07:00 Intake Total 840 ml 600 ml Balance 840 ml 600 ml Labs: Laboratory Tests Test 09/26/21 07:27 09/26/21 16:27 Glucose (Fingerstick) 107 mg/dL (70-99) H 125 mg/dL (70-99) H Current Medications: Meds: Laboratory Tests Test 09/26/21 07:27 09/26/21 16:27 Glucose (Fingerstick) 107 mg/dL 125 mg/dL Current Medications Medications (Trade) Dose Ordered Sig/Aparna Route PRN Reason Start Time Stop Time Status Last Admin Dose Admin Acetaminophen (Tylenol) 650 mg PRN Q6HRS PRN PO MILD PAIN / TEMP > 100.3'F 07/06/21 00:30 Cancel Multi-Ingredient Ointment (Analgesic [place]) 1 inna PRN QID PRN TP MUSCLE PAIN 07/06/21 00:30 09/06/21 17:39 Al Hydroxide/Mg Hydroxide (Mylanta Plus Xs) 15 ml PRN AFTMEALHC PRN PO DYSPEPSIA 07/06/21 00:30 09/19/21 16:24 Magnesium Hydroxide (Milk Of Magnesia) 2,400 mg PRN QHS PRN PO 2ND CHOICE CONSTIPATION 07/06/21 00:30 07/14/21 08:13 Duloxetine HCl (Cymbalta) 20 mg HS PO 07/06/21 21:00 09/26/21 21:20 Duloxetine HCl (Cymbalta) 30 mg HS PO 07/06/21 21:00 09/26/21 21:20 Mirtazapine (Remeron) 7.5 mg HS PO 07/06/21 21:00 07/29/21 18:15 DC 07/28/21 20:09 Olanzapine (ZyPREXA ZYDIS) 2.5 mg PRN Q2HR PRN PO ANXIETY / AGITATION 07/06/21 01:15 09/14/21 21:08 Trazodone HCl (Desyrel) 50 mg PRN QHS PRN PO INSOMNIA 07/06/21 01:15 09/09/21 20:37 Acetaminophen (Tylenol) 650 mg PRN Q4HRS PRN PO MILD PAIN 1-3 07/06/21 10:30 09/06/21 17:39 Aspirin (Aspirin Enteric Coated) 81 mg DAILY PO 07/07/21 09:00 09/26/21 08:40 Atorvastatin Calcium (Lipitor) 10 mg QHS PO 07/06/21 21:00 09/26/21 21:21 Carvedilol (Coreg) 3.125 mg BIDWMEALS PO 07/06/21 17:00 07/25/21 17:52 DC 07/25/21 17:22 Gabapentin (Neurontin) 300 mg BID PO 07/06/21 21:00 08/30/21 12:29 DC 08/30/21 08:20 Metformin HCl (Glucophage Xr) 500 mg DAILYWBKFT PO 07/07/21 08:00 09/26/21 08:38 Multi-Ingredient Ointment (Analgesic [place]) 1 inna PRN QID PRN TP PAIN 07/06/21 10:30 UNV Phenytoin Sodium (Dilantin) 500 mg HS PO 07/06/21 21:00 07/07/21 22:27 DC 07/07/21 20:05 Tamsulosin HCl (Flomax) 0.4 mg DAILY PO 07/07/21 09:00 09/26/21 08:38 Polyethylene Glycol (miraLAX) 17 gm PRN DAILY PRN PO 1ST CHOICE CONSTIPATION 07/06/21 10:45 08/13/21 20:07 Non-Formulary Medication (Pravastatin Sodium ) 40 mg DAILY PO 07/07/21 09:00 UNV Phenyleph/Shark Oil/Min Oil/Petrol (Preparation H) 1 inna PRN QID PRN RC RECTAL PAIN 07/06/21 15:15 Phenytoin Sodium (Dilantin) 400 mg HS PO 07/08/21 21:00 07/11/21 23:36 DC 07/11/21 20:35 Albuterol/ Ipratropium (Combivent Respimat 20-100 Mcg) 1 puff QID INH 07/08/21 13:00 09/26/21 21:22 Docusate Sodium (Colace) 100 mg DAILY PO 07/09/21 09:00 09/26/21 08:39 Guaifenesin (Mucinex Er) 600 mg BID PO 07/08/21 21:00 09/26/21 21:21 Magnesium Hydroxide (Milk Of Magnesia) 2,400 mg PRN QHS PRN PO 2nd CHOICE CONSTIPATION 07/08/21 19:30 Cancel Phenytoin Sodium (Dilantin) 200 mg HS PO 07/12/21 21:00 09/26/21 21:21 Phenytoin Sodium (Dilantin) 100 mg DAILY PO 07/12/21 09:00 09/26/21 08:39 Carvedilol (Coreg) 6.25 mg BIDWMEALS PO 07/25/21 18:00 07/25/21 18:07 DC Carvedilol (Coreg) 6.25 mg BIDWMEALS PO 07/26/21 08:00 08/02/21 09:02 DC 08/02/21 08:33 Mirtazapine (Remeron) 15 mg QHS PO 07/29/21 21:00 09/26/21 21:21 Carvedilol (Coreg) 12.5 mg BIDWMEALS PO 08/02/21 17:00 09/26/21 17:16 Albuterol Sulfate (Ventolin Hfa Inhaler) 2 puff PRN Q4HRS PRN INH SHORTNESS OF BREATH 08/02/21 09:15 09/25/21 12:19 Melatonin (Melatonin) 3 mg QHS PO 08/05/21 21:00 08/18/21 14:06 DC 08/17/21 20:06 Oxycodone/ Acetaminophen (Percocet 10/325) 1 tab PRN Q6HRS PRN PO MOD-SEV PAIN 08/15/21 00:15 08/15/21 00:23 Melatonin (Melatonin) 6 mg QHS PO 08/18/21 21:00 09/26/21 21:21 Influenza Virus Vaccine Quadrival (Flulaval Quad Syringe) 0.5 ml ONCE ONCE VAX IM 08/20/21 09:00 08/20/21 09:01 DC 08/20/21 11:35 Gabapentin (Neurontin) 100 mg 1X ONCE PO 08/30/21 14:00 08/30/21 14:01 Cancel Gabapentin (Neurontin) 200 mg 1X ONCE PO 08/30/21 21:00 08/30/21 21:01 Cancel Gabapentin (Neurontin) 300 mg BID PO 08/31/21 09:00 09/26/21 21:21 Gabapentin (Neurontin) 300 mg 1X ONCE PO 08/30/21 12:45 08/30/21 12:46 DC 08/30/21 12:42 Nystatin (Nystop) 1 inna BID PRN TP antifungal 09/14/21 19:45 I have reviewed the current psychotropics carefully including drug interactions. Risk benefit ratio favors no change other than as noted in my dictated progress note. 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
--- NOTE | 2021-09-27 01:41 | NUR ---
Last evening pt visited with peers and watched [employer] series some before going to bed. He took meds whole without difficulty and has had no behaviors tonight.
[2021-09-27 06:03] VITALS: BP 168/81
[2021-09-27] MEDS: ASPIRIN ENTERIC COATED 81 MG TABLET.DR. PO SCH (08:49)
[2021-09-27] MEDS: DOCUSATE SODIUM 100 MG CAPSULE PO SCH (08:49)
[2021-09-27] MEDS: TAMSULOSIN 0.4 MG CAP.ER.24H. PO SCH (08:49)
[2021-09-27] MEDS: GABAPENTIN 300 MG CAPSULE. PO SCH ×2 (08:49→21:02)
[2021-09-27] MEDS: metFORMIN XR 500 MG TAB.ER.24H PO SCH (08:49)
[2021-09-27] MEDS: CARVEDILOL 12.5 MG TABLET PO SCH ×2 (08:49→17:26)
[2021-09-27] MEDS: IPRATROPIUM/ALBUTEROL 20/100mcg/INH INHALER. INH SCH ×4 (08:50→21:00)
[2021-09-27] MEDS: PHENYTOIN SODIUM EXTENDED 100 MG CAPSULE PO SCH ×2 (08:50→21:02)
[2021-09-27] MEDS: ALBUTEROL SULFATE 8GM INHALER. INH PRN (14:03)
[2021-09-27] MEDS: MAG HYDROX/AL HYDROX/SIMETH 30 ML ORAL.SUSP PO PRN (14:28)
[2021-09-27 15:56] VITALS: BP 133/77
--- NOTE | 2021-09-27 18:30 | NUR ---
Patient has been attention seeking, compliant, and disorganized during this shift. He was withdrawn for part of the afternoon, otherwise social with peers in day room. Will continue to monitor and report to oncoming staff.
[2021-09-27] MEDS: DULoxetine HCL 20 MG CAPSULE.DR PO SCH (21:00)
[2021-09-27] MEDS: MIRTAZAPINE 15 MG TABLET PO SCH (21:01)
[2021-09-27] MEDS: ATORVASTATIN CALCIUM 10 MG TABLET. PO SCH (21:01)
[2021-09-27] MEDS: DULoxetine HCL 30 MG CAPSULE.DR PO SCH (21:01)
[2021-09-27] MEDS: MELATONIN 3 MG TABLET PO SCH (21:02)
[2021-09-28 06:11] VITALS: BP 124/75
[2021-09-28] MEDS: CARVEDILOL 12.5 MG TABLET PO SCH ×2 (08:31→17:26)
[2021-09-28] MEDS: DOCUSATE SODIUM 100 MG CAPSULE PO SCH (08:31)
[2021-09-28] MEDS: TAMSULOSIN 0.4 MG CAP.ER.24H. PO SCH (08:31)
[2021-09-28] MEDS: IPRATROPIUM/ALBUTEROL 20/100mcg/INH INHALER. INH SCH ×4 (08:31→20:27)
[2021-09-28] MEDS: ASPIRIN ENTERIC COATED 81 MG TABLET.DR. PO SCH (08:31)
[2021-09-28] MEDS: metFORMIN XR 500 MG TAB.ER.24H PO SCH (08:31)
[2021-09-28] MEDS: GABAPENTIN 300 MG CAPSULE. PO SCH ×2 (08:31→20:27)
[2021-09-28] MEDS: PHENYTOIN SODIUM EXTENDED 100 MG CAPSULE PO SCH ×2 (08:31→20:27)
--- NOTE | 2021-09-28 09:58 | PDOC ---
Exam Note: Leo Note: This note is a late entry for 09/24/2021 covers elements not covered in my initial note. Subjective: The patient was seen individually in the evening of 09/24/2021 with Maryjane KOWALSKI, discussed and reviewed the chart. The patient slept 6 hours previous night. Patient gets a little irritable at times and hit out at one of the other demented patients on the unit who was yelling and when she was on his way. I addressed this with him. He showed some insight but seemed to rationalize what he did. Review of Systems: Ambulation impaired in wheelchair. No CV, , pulmonary, eye, ENT system symptoms on review. Mental Status Exam: The patient is oriented to himself and situation. Speech coherent. Abstraction fair. Computation impaired. Short-term memory is impaired. Mood and affect improved. Laboratory Data: Reviewed. Impression: Major depressive disorder, in partial remission. Major neurocognitive disorder, Alzheimer, vascular with delusion, depression, behavioral disturbance. Anxiety disorder unspecified. Impulse control disorder unspecified. Plan: No change from initial note. Assessment: Vital Signs/I&O: Vital Signs Date Time Temp Pulse Resp B/P (MAP) Pulse Ox O2 Delivery O2 Flow Rate FiO2 09/28/21 08:31 77 124/75 09/28/21 06:11 97.1 18 90 Room Air 09/23/21 16:03 92.0 I & O 09/27/21 09/27/21 09/28/21 15:00 23:00 07:00 Intake Total 960 ml 720 ml Balance 960 ml 720 ml Labs: Laboratory Tests Test 09/28/21 07:19 Glucose (Fingerstick) 144 mg/dL (70-99) H Current Medications: Meds: Laboratory Tests Test 09/28/21 07:19 Glucose (Fingerstick) 144 mg/dL Current Medications Medications (Trade) Dose Ordered Sig/Aparna Route PRN Reason Start Time Stop Time Status Last Admin Dose Admin Acetaminophen (Tylenol) 650 mg PRN Q6HRS PRN PO MILD PAIN / TEMP > 100.3'F 07/06/21 00:30 Cancel Multi-Ingredient Ointment (Analgesic [place]) 1 inna PRN QID PRN TP MUSCLE PAIN 07/06/21 00:30 09/06/21 17:39 Al Hydroxide/Mg Hydroxide (Mylanta Plus Xs) 15 ml PRN AFTMEALHC PRN PO DYSPEPSIA 07/06/21 00:30 09/27/21 14:28 Magnesium Hydroxide (Milk Of Magnesia) 2,400 mg PRN QHS PRN PO 2ND CHOICE CONSTIPATION 07/06/21 00:30 07/14/21 08:13 Duloxetine HCl (Cymbalta) 20 mg HS PO 07/06/21 21:00 09/27/21 21:00 Duloxetine HCl (Cymbalta) 30 mg HS PO 07/06/21 21:00 09/27/21 21:01 Mirtazapine (Remeron) 7.5 mg HS PO 07/06/21 21:00 07/29/21 18:15 DC 07/28/21 20:09 Olanzapine (ZyPREXA ZYDIS) 2.5 mg PRN Q2HR PRN PO ANXIETY / AGITATION 07/06/21 01:15 09/14/21 21:08 Trazodone HCl (Desyrel) 50 mg PRN QHS PRN PO INSOMNIA 07/06/21 01:15 09/09/21 20:37 Acetaminophen (Tylenol) 650 mg PRN Q4HRS PRN PO MILD PAIN 1-3 07/06/21 10:30 09/06/21 17:39 Aspirin (Aspirin Enteric Coated) 81 mg DAILY PO 07/07/21 09:00 09/28/21 08:31 Atorvastatin Calcium (Lipitor) 10 mg QHS PO 07/06/21 21:00 09/27/21 21:01 Carvedilol (Coreg) 3.125 mg BIDWMEALS PO 07/06/21 17:00 07/25/21 17:52 DC 07/25/21 17:22 Gabapentin (Neurontin) 300 mg BID PO 07/06/21 21:00 08/30/21 12:29 DC 08/30/21 08:20 Metformin HCl (Glucophage Xr) 500 mg DAILYWBKFT PO 07/07/21 08:00 09/28/21 08:31 Multi-Ingredient Ointment (Analgesic [place]) 1 inna PRN QID PRN TP PAIN 07/06/21 10:30 UNV Phenytoin Sodium (Dilantin) 500 mg HS PO 07/06/21 21:00 07/07/21 22:27 DC 07/07/21 20:05 Tamsulosin HCl (Flomax) 0.4 mg DAILY PO 07/07/21 09:00 09/28/21 08:31 Polyethylene Glycol (miraLAX) 17 gm PRN DAILY PRN PO 1ST CHOICE CONSTIPATION 07/06/21 10:45 08/13/21 20:07 Non-Formulary Medication (Pravastatin Sodium ) 40 mg DAILY PO 07/07/21 09:00 UNV Phenyleph/Shark Oil/Min Oil/Petrol (Preparation H) 1 inna PRN QID PRN RC RECTAL PAIN 07/06/21 15:15 Phenytoin Sodium (Dilantin) 400 mg HS PO 07/08/21 21:00 07/11/21 23:36 DC 07/11/21 20:35 Albuterol/ Ipratropium (Combivent Respimat 20-100 Mcg) 1 puff QID INH 07/08/21 13:00 09/28/21 08:31 Docusate Sodium (Colace) 100 mg DAILY PO 07/09/21 09:00 09/28/21 08:31 Guaifenesin (Mucinex Er) 600 mg BID PO 07/08/21 21:00 09/28/21 08:31 Magnesium Hydroxide (Milk Of Magnesia) 2,400 mg PRN QHS PRN PO 2nd CHOICE CONSTIPATION 07/08/21 19:30 Cancel Phenytoin Sodium (Dilantin) 200 mg HS PO 07/12/21 21:00 09/27/21 21:02 Phenytoin Sodium (Dilantin) 100 mg DAILY PO 07/12/21 09:00 09/28/21 08:31 Carvedilol (Coreg) 6.25 mg BIDWMEALS PO 07/25/21 18:00 07/25/21 18:07 DC Carvedilol (Coreg) 6.25 mg BIDWMEALS PO 07/26/21 08:00 08/02/21 09:02 DC 08/02/21 08:33 Mirtazapine (Remeron) 15 mg QHS PO 07/29/21 21:00 09/27/21 21:01 Carvedilol (Coreg) 12.5 mg BIDWMEALS PO 08/02/21 17:00 09/28/21 08:31 Albuterol Sulfate (Ventolin Hfa Inhaler) 2 puff PRN Q4HRS PRN INH SHORTNESS OF BREATH 08/02/21 09:15 09/27/21 14:03 Melatonin (Melatonin) 3 mg QHS PO 08/05/21 21:00 08/18/21 14:06 DC 08/17/21 20:06 Oxycodone/ Acetaminophen (Percocet 10/325) 1 tab PRN Q6HRS PRN PO MOD-SEV PAIN 08/15/21 00:15 08/15/21 00:23 Melatonin (Melatonin) 6 mg QHS PO 08/18/21 21:00 09/27/21 21:02 Influenza Virus Vaccine Quadrival (Flulaval Quad Syringe) 0.5 ml ONCE ONCE VAX IM 08/20/21 09:00 08/20/21 09:01 DC 08/20/21 11:35 Gabapentin (Neurontin) 100 mg 1X ONCE PO 08/30/21 14:00 08/30/21 14:01 Cancel Gabapentin (Neurontin) 200 mg 1X ONCE PO 08/30/21 21:00 08/30/21 21:01 Cancel Gabapentin (Neurontin) 300 mg BID PO 08/31/21 09:00 09/28/21 08:31 Gabapentin (Neurontin) 300 mg 1X ONCE PO 08/30/21 12:45 08/30/21 12:46 DC 08/30/21 12:42 Nystatin (Nystop) 1 inna BID PRN TP antifungal 09/14/21 19:45 I have reviewed the current psychotropics carefully including drug interactions. Risk benefit ratio favors no change other than as noted in my dictated progress note. Diagnosis: Problems: (1) Major depressive disorder in partial remission (2) Major neurocognitive disorder (3) Dementia in Alzheimer's disease with depression (4) Dementia in Alzheimer's disease with delusions (5) Dementia of the Alzheimer's type with early onset with behavioral disturbance (6) Anxiety disorder, unspecified (7) Impulse control disorder, unspecified (8) Dementia, vascular, with depression (9) Dementia, vascular, with delusions NIK LOYA MD Sep 28, 2021 09:58
--- NOTE | 2021-09-28 10:12 | PDOC ---
Exam Note: Leo Note: This note is a late entry for 09/25/2021 covers elements not covered in my initial note. Subjective: The patient was seen individually in the evening of 09/25/2021 with Mane KOWALSKI, discussed and reviewed the chart. The patient slept 5-1/2 hours previous night. I met with him in the dayroom. He often refers to me as father and then I correct him and he apologizes as usual. Review of Systems: Ambulation impaired in wheelchair. No CV, , pulmonary, eye, ENT system symptoms on review. Mental Status Exam: The patient is oriented to himself and situation. Speech has some latency, coherent. Abstraction fair. Computation impaired. Mood and affect improved. Laboratory Data: Reviewed. Impression: Major depressive disorder, in partial remission. Major neurocognitive disorder, Alzheimer, vascular with delusion, depression, behavioral disturbance. Anxiety disorder unspecified. Impulse control disorder unspecified. Plan: No change from initial note. Assessment: Vital Signs/I&O: Vital Signs Date Time Temp Pulse Resp B/P (MAP) Pulse Ox O2 Delivery O2 Flow Rate FiO2 09/28/21 08:31 77 124/75 09/28/21 06:11 97.1 18 90 Room Air 09/23/21 16:03 92.0 I & O 09/27/21 09/27/21 09/28/21 15:00 23:00 07:00 Intake Total 960 ml 720 ml Balance 960 ml 720 ml Labs: Laboratory Tests Test 09/28/21 07:19 Glucose (Fingerstick) 144 mg/dL (70-99) H Current Medications: Meds: Laboratory Tests Test 09/28/21 07:19 Glucose (Fingerstick) 144 mg/dL Current Medications Medications (Trade) Dose Ordered Sig/Aparna Route PRN Reason Start Time Stop Time Status Last Admin Dose Admin Acetaminophen (Tylenol) 650 mg PRN Q6HRS PRN PO MILD PAIN / TEMP > 100.3'F 07/06/21 00:30 Cancel Multi-Ingredient Ointment (Analgesic [place]) 1 inna PRN QID PRN TP MUSCLE PAIN 07/06/21 00:30 09/06/21 17:39 Al Hydroxide/Mg Hydroxide (Mylanta Plus Xs) 15 ml PRN AFTMEALHC PRN PO DYSPEPSIA 07/06/21 00:30 09/27/21 14:28 Magnesium Hydroxide (Milk Of Magnesia) 2,400 mg PRN QHS PRN PO 2ND CHOICE CONSTIPATION 07/06/21 00:30 07/14/21 08:13 Duloxetine HCl (Cymbalta) 20 mg HS PO 07/06/21 21:00 09/27/21 21:00 Duloxetine HCl (Cymbalta) 30 mg HS PO 07/06/21 21:00 09/27/21 21:01 Mirtazapine (Remeron) 7.5 mg HS PO 07/06/21 21:00 07/29/21 18:15 DC 07/28/21 20:09 Olanzapine (ZyPREXA ZYDIS) 2.5 mg PRN Q2HR PRN PO ANXIETY / AGITATION 07/06/21 01:15 09/14/21 21:08 Trazodone HCl (Desyrel) 50 mg PRN QHS PRN PO INSOMNIA 07/06/21 01:15 09/09/21 20:37 Acetaminophen (Tylenol) 650 mg PRN Q4HRS PRN PO MILD PAIN 1-3 07/06/21 10:30 09/06/21 17:39 Aspirin (Aspirin Enteric Coated) 81 mg DAILY PO 07/07/21 09:00 09/28/21 08:31 Atorvastatin Calcium (Lipitor) 10 mg QHS PO 07/06/21 21:00 09/27/21 21:01 Carvedilol (Coreg) 3.125 mg BIDWMEALS PO 07/06/21 17:00 07/25/21 17:52 DC 07/25/21 17:22 Gabapentin (Neurontin) 300 mg BID PO 07/06/21 21:00 08/30/21 12:29 DC 08/30/21 08:20 Metformin HCl (Glucophage Xr) 500 mg DAILYWBKFT PO 07/07/21 08:00 09/28/21 08:31 Multi-Ingredient Ointment (Analgesic [place]) 1 inna PRN QID PRN TP PAIN 07/06/21 10:30 UNV Phenytoin Sodium (Dilantin) 500 mg HS PO 07/06/21 21:00 07/07/21 22:27 DC 07/07/21 20:05 Tamsulosin HCl (Flomax) 0.4 mg DAILY PO 07/07/21 09:00 09/28/21 08:31 Polyethylene Glycol (miraLAX) 17 gm PRN DAILY PRN PO 1ST CHOICE CONSTIPATION 07/06/21 10:45 08/13/21 20:07 Non-Formulary Medication (Pravastatin Sodium ) 40 mg DAILY PO 07/07/21 09:00 UNV Phenyleph/Shark Oil/Min Oil/Petrol (Preparation H) 1 inna PRN QID PRN RC RECTAL PAIN 07/06/21 15:15 Phenytoin Sodium (Dilantin) 400 mg HS PO 07/08/21 21:00 07/11/21 23:36 DC 07/11/21 20:35 Albuterol/ Ipratropium (Combivent Respimat 20-100 Mcg) 1 puff QID INH 07/08/21 13:00 09/28/21 08:31 Docusate Sodium (Colace) 100 mg DAILY PO 07/09/21 09:00 09/28/21 08:31 Guaifenesin (Mucinex Er) 600 mg BID PO 07/08/21 21:00 09/28/21 08:31 Magnesium Hydroxide (Milk Of Magnesia) 2,400 mg PRN QHS PRN PO 2nd CHOICE CONSTIPATION 07/08/21 19:30 Cancel Phenytoin Sodium (Dilantin) 200 mg HS PO 07/12/21 21:00 09/27/21 21:02 Phenytoin Sodium (Dilantin) 100 mg DAILY PO 07/12/21 09:00 09/28/21 08:31 Carvedilol (Coreg) 6.25 mg BIDWMEALS PO 07/25/21 18:00 07/25/21 18:07 DC Carvedilol (Coreg) 6.25 mg BIDWMEALS PO 07/26/21 08:00 08/02/21 09:02 DC 08/02/21 08:33 Mirtazapine (Remeron) 15 mg QHS PO 07/29/21 21:00 09/27/21 21:01 Carvedilol (Coreg) 12.5 mg BIDWMEALS PO 08/02/21 17:00 09/28/21 08:31 Albuterol Sulfate (Ventolin Hfa Inhaler) 2 puff PRN Q4HRS PRN INH SHORTNESS OF BREATH 08/02/21 09:15 09/27/21 14:03 Melatonin (Melatonin) 3 mg QHS PO 08/05/21 21:00 08/18/21 14:06 DC 08/17/21 20:06 Oxycodone/ Acetaminophen (Percocet 10) 1 tab PRN Q6HRS PRN PO MOD-SEV PAIN 08/15/21 00:15 08/15/21 00:23 Melatonin (Melatonin) 6 mg QHS PO 08/18/21 21:00 09/27/21 21:02 Influenza Virus Vaccine Quadrival (Flulaval Quad Syringe) 0.5 ml ONCE ONCE VAX IM 08/20/21 09:00 08/20/21 09:01 DC 08/20/21 11:35 Gabapentin (Neurontin) 100 mg 1X ONCE PO 08/30/21 14:00 08/30/21 14:01 Cancel Gabapentin (Neurontin) 200 mg 1X ONCE PO 08/30/21 21:00 08/30/21 21:01 Cancel Gabapentin (Neurontin) 300 mg BID PO 08/31/21 09:00 09/28/21 08:31 Gabapentin (Neurontin) 300 mg 1X ONCE PO 08/30/21 12:45 08/30/21 12:46 DC 08/30/21 12:42 Nystatin (Nystop) 1 inna BID PRN TP antifungal 09/14/21 19:45 I have reviewed the current psychotropics carefully including drug interactions. Risk benefit ratio favors no change other than as noted in my dictated progress note. Diagnosis: Problems: (1) Impulse control disorder, unspecified (2) Anxiety disorder, unspecified (3) Dementia, vascular, with depression (4) Dementia, vascular, with delusions (5) Major neurocognitive disorder (6) Dementia in Alzheimer's disease with depression (7) Dementia in Alzheimer's disease with delusions (8) Dementia of the Alzheimer's type with early onset with behavioral disturbance (9) Major depressive disorder in partial remission NIK LOYA MD Sep 28, 2021 10:12
--- NOTE | 2021-09-28 10:27 | PDOC ---
Exam Note: Leo Note: Late entry for 09/27/21. Please also refer to the separate dictated note~for this date of service dictated separately.~Patient seen individually. Discussed the patient with Nursing staff reviewed the chart.~Reviewed interim history and current functioning. Reviewed vital signs,~Labs/ Radiology~and current medicat ions noted below. Continue current treatment with the changes noted in the dictated addendum note Assessment: Vital Signs/I&O: Vital Signs Date Time Temp Pulse Resp B/P (MAP) Pulse Ox O2 Delivery O2 Flow Rate FiO2 09/28/21 08:31 77 124/75 09/28/21 06:11 97.1 18 90 Room Air 09/23/21 16:03 92.0 I & O 09/27/21 09/27/21 09/28/21 15:00 23:00 07:00 Intake Total 960 ml 720 ml Balance 960 ml 720 ml Labs: Laboratory Tests Test 09/28/21 07:19 Glucose (Fingerstick) 144 mg/dL (70-99) H Current Medications: Meds: Laboratory Tests Test 09/28/21 07:19 Glucose (Fingerstick) 144 mg/dL Current Medications Medications (Trade) Dose Ordered Sig/Aparna Route PRN Reason Start Time Stop Time Status Last Admin Dose Admin Acetaminophen (Tylenol) 650 mg PRN Q6HRS PRN PO MILD PAIN / TEMP > 100.3'F 07/06/21 00:30 Cancel Multi-Ingredient Ointment (Analgesic [place]) 1 inna PRN QID PRN TP MUSCLE PAIN 07/06/21 00:30 09/06/21 17:39 Al Hydroxide/Mg Hydroxide (Mylanta Plus Xs) 15 ml PRN AFTMEALHC PRN PO DYSPEPSIA 07/06/21 00:30 09/27/21 14:28 Magnesium Hydroxide (Milk Of Magnesia) 2,400 mg PRN QHS PRN PO 2ND CHOICE CONSTIPATION 07/06/21 00:30 07/14/21 08:13 Duloxetine HCl (Cymbalta) 20 mg HS PO 07/06/21 21:00 09/27/21 21:00 Duloxetine HCl (Cymbalta) 30 mg HS PO 07/06/21 21:00 09/27/21 21:01 Mirtazapine (Remeron) 7.5 mg HS PO 07/06/21 21:00 07/29/21 18:15 DC 07/28/21 20:09 Olanzapine (ZyPREXA ZYDIS) 2.5 mg PRN Q2HR PRN PO ANXIETY / AGITATION 07/06/21 01:15 09/14/21 21:08 Trazodone HCl (Desyrel) 50 mg PRN QHS PRN PO INSOMNIA 07/06/21 01:15 09/09/21 20:37 Acetaminophen (Tylenol) 650 mg PRN Q4HRS PRN PO MILD PAIN 1-3 07/06/21 10:30 09/06/21 17:39 Aspirin (Aspirin Enteric Coated) 81 mg DAILY PO 07/07/21 09:00 09/28/21 08:31 Atorvastatin Calcium (Lipitor) 10 mg QHS PO 07/06/21 21:00 09/27/21 21:01 Carvedilol (Coreg) 3.125 mg BIDWMEALS PO 07/06/21 17:00 07/25/21 17:52 DC 07/25/21 17:22 Gabapentin (Neurontin) 300 mg BID PO 07/06/21 21:00 08/30/21 12:29 DC 08/30/21 08:20 Metformin HCl (Glucophage Xr) 500 mg DAILYWBKFT PO 07/07/21 08:00 09/28/21 08:31 Multi-Ingredient Ointment (Analgesic [place]) 1 inna PRN QID PRN TP PAIN 07/06/21 10:30 UNV Phenytoin Sodium (Dilantin) 500 mg HS PO 07/06/21 21:00 07/07/21 22:27 DC 07/07/21 20:05 Tamsulosin HCl (Flomax) 0.4 mg DAILY PO 07/07/21 09:00 09/28/21 08:31 Polyethylene Glycol (miraLAX) 17 gm PRN DAILY PRN PO 1ST CHOICE CONSTIPATION 07/06/21 10:45 08/13/21 20:07 Non-Formulary Medication (Pravastatin Sodium ) 40 mg DAILY PO 07/07/21 09:00 UNV Phenyleph/Shark Oil/Min Oil/Petrol (Preparation H) 1 inna PRN QID PRN RC RECTAL PAIN 07/06/21 15:15 Phenytoin Sodium (Dilantin) 400 mg HS PO 07/08/21 21:00 07/11/21 23:36 DC 07/11/21 20:35 Albuterol/ Ipratropium (Combivent Respimat 20-100 Mcg) 1 puff QID INH 07/08/21 13:00 09/28/21 08:31 Docusate Sodium (Colace) 100 mg DAILY PO 07/09/21 09:00 09/28/21 08:31 Guaifenesin (Mucinex Er) 600 mg BID PO 07/08/21 21:00 09/28/21 08:31 Magnesium Hydroxide (Milk Of Magnesia) 2,400 mg PRN QHS PRN PO 2nd CHOICE CONSTIPATION 07/08/21 19:30 Cancel Phenytoin Sodium (Dilantin) 200 mg HS PO 07/12/21 21:00 09/27/21 21:02 Phenytoin Sodium (Dilantin) 100 mg DAILY PO 07/12/21 09:00 09/28/21 08:31 Carvedilol (Coreg) 6.25 mg BIDWMEALS PO 07/25/21 18:00 07/25/21 18:07 DC Carvedilol (Coreg) 6.25 mg BIDWMEALS PO 07/26/21 08:00 08/02/21 09:02 DC 08/02/21 08:33 Mirtazapine (Remeron) 15 mg QHS PO 07/29/21 21:00 09/27/21 21:01 Carvedilol (Coreg) 12.5 mg BIDWMEALS PO 08/02/21 17:00 09/28/21 08:31 Albuterol Sulfate (Ventolin Hfa Inhaler) 2 puff PRN Q4HRS PRN INH SHORTNESS OF BREATH 08/02/21 09:15 09/27/21 14:03 Melatonin (Melatonin) 3 mg QHS PO 08/05/21 21:00 08/18/21 14:06 DC 08/17/21 20:06 Oxycodone/ Acetaminophen (Percocet 10/325) 1 tab PRN Q6HRS PRN PO MOD-SEV PAIN 08/15/21 00:15 08/15/21 00:23 Melatonin (Melatonin) 6 mg QHS PO 08/18/21 21:00 09/27/21 21:02 Influenza Virus Vaccine Quadrival (Flulaval Quad [id number] Syringe) 0.5 ml ONCE ONCE VAX IM 08/20/21 09:00 08/20/21 09:01 DC 08/20/21 11:35 Gabapentin (Neurontin) 100 mg 1X ONCE PO 08/30/21 14:00 08/30/21 14:01 Cancel Gabapentin (Neurontin) 200 mg 1X ONCE PO 08/30/21 21:00 08/30/21 21:01 Cancel Gabapentin (Neurontin) 300 mg BID PO 08/31/21 09:00 09/28/21 08:31 Gabapentin (Neurontin) 300 mg 1X ONCE PO 08/30/21 12:45 08/30/21 12:46 DC 08/30/21 12:42 Nystatin (Nystop) 1 inna BID PRN TP antifungal 09/14/21 19:45 I have reviewed the current psychotropics carefully including drug interactions. Risk benefit ratio favors no change other than as noted in my dictated progress note. Diagnosis: Problems: (1) Impulse control disorder, unspecified (2) Anxiety disorder, unspecified (3) Dementia, vascular, with depression (4) Dementia, vascular, with delusions (5) Major neurocognitive disorder (6) Dementia in Alzheimer's disease with depression (7) Dementia in Alzheimer's disease with delusions (8) Dementia of the Alzheimer's type with early onset with behavioral disturbance (9) Major depressive disorder in partial remission NIK LOYA MD Sep 28, 2021 10:27
--- NOTE | 2021-09-28 13:24 | NUR ---
Nursing note: Patient in dinning room for morning medications & assessment. He is compliant with medications taken whole. Patient is A/O to self only. He propels self in w/c, & self transfers. Patient denies pain/discomfort at this time. He is currently sitting in hallway in w/c. Will continue to monitor.
[2021-09-28 16:09] VITALS: BP 122/60
[2021-09-28] MEDS: ATORVASTATIN CALCIUM 10 MG TABLET. PO SCH (20:27)
[2021-09-28] MEDS: DULoxetine HCL 30 MG CAPSULE.DR PO SCH (20:27)
[2021-09-28] MEDS: MELATONIN 3 MG TABLET PO SCH (20:27)
[2021-09-28] MEDS: DULoxetine HCL 20 MG CAPSULE.DR PO SCH (20:27)
[2021-09-28] MEDS: MIRTAZAPINE 15 MG TABLET PO SCH (20:27)
--- NOTE | 2021-09-28 22:28 | NUR ---
Pt located in the hallway this evening. Singing/ yodeling intermittently. Compliant with whole medications.
[2021-09-29 05:55] VITALS: BP 164/67
[2021-09-29] MEDS: ASPIRIN ENTERIC COATED 81 MG TABLET.DR. PO SCH (08:30)
[2021-09-29] MEDS: IPRATROPIUM/ALBUTEROL 20/100mcg/INH INHALER. INH SCH ×4 (08:30→20:22)
[2021-09-29] MEDS: GABAPENTIN 300 MG CAPSULE. PO SCH ×2 (08:31→20:22)
[2021-09-29] MEDS: DOCUSATE SODIUM 100 MG CAPSULE PO SCH (08:31)
[2021-09-29] MEDS: TAMSULOSIN 0.4 MG CAP.ER.24H. PO SCH (08:31)
[2021-09-29] MEDS: metFORMIN XR 500 MG TAB.ER.24H PO SCH (08:31)
[2021-09-29] MEDS: PHENYTOIN SODIUM EXTENDED 100 MG CAPSULE PO SCH ×2 (08:31→20:22)
[2021-09-29] MEDS: CARVEDILOL 12.5 MG TABLET PO SCH ×2 (08:31→17:17)
--- NOTE | 2021-09-29 08:32 | PDOC ---
Exam Note: Leo Note: This note is a late entry for 09/26/2021 covers elements not covered in my initial note. Subjective: The patient was seen individually in the evening of 09/26/2021 with Mane KOWALSKI, discussed and reviewed the chart. The patient slept 5-1/2 hours previous night. I met with him in his room. He has been about the same per nursing report. He continues to obsess that his nephew had sold his automobile and I addressed this with him. He states he thinks he can drive and no one should restrict him. Again I processed this with him at some length. Review of Systems: Ambulation impaired in wheelchair. No CV, , pulmonary, eye, ENT system symptoms on review. Mental Status Exam: The patient is oriented to himself and situation. He states he thinks he can drive and no one should restrict him. I discussed with him about not driving and that he will need longer term care in a more structured environment. He is reluctantly accepting of it even though at the same time he keeps saying he can do everything on his own. Speech coherent. Abstraction fair. Computation impaired. Mood and affect obsessed. Laboratory Data: Reviewed. Impression: Major depressive disorder, in partial remission. Major neurocognitive disorder, Alzheimer, vascular with delusion, depression, behavioral disturbance. Anxiety disorder unspecified. Impulse control disorder unspecified. Plan: No change from initial note. Assessment: Vital Signs/I&O: Vital Signs Date Time Temp Pulse Resp B/P (MAP) Pulse Ox O2 Delivery O2 Flow Rate FiO2 09/29/21 05:55 97.4 78 22 164/67 (99) 95 09/28/21 06:11 Room Air 09/23/21 16:03 92.0 I & O 09/28/21 09/28/21 09/29/21 15:00 23:00 07:00 Intake Total 960 ml 600 ml Balance 960 ml 600 ml Labs: Laboratory Tests Test 09/29/21 07:42 Glucose (Fingerstick) 125 mg/dL (70-99) H Current Medications: Meds: Laboratory Tests Test 09/29/21 07:42 Glucose (Fingerstick) 125 mg/dL Current Medications Medications (Trade) Dose Ordered Sig/Aparna Route PRN Reason Start Time Stop Time Status Last Admin Dose Admin Acetaminophen (Tylenol) 650 mg PRN Q6HRS PRN PO MILD PAIN / TEMP > 100.3'F 07/06/21 00:30 Cancel Multi-Ingredient Ointment (Analgesic [place]) 1 inna PRN QID PRN TP MUSCLE PAIN 07/06/21 00:30 09/06/21 17:39 Al Hydroxide/Mg Hydroxide (Mylanta Plus Xs) 15 ml PRN AFTMEALHC PRN PO DYSPEPSIA 07/06/21 00:30 09/27/21 14:28 Magnesium Hydroxide (Milk Of Magnesia) 2,400 mg PRN QHS PRN PO 2ND CHOICE CONSTIPATION 07/06/21 00:30 07/14/21 08:13 Duloxetine HCl (Cymbalta) 20 mg HS PO 07/06/21 21:00 09/28/21 20:27 Duloxetine HCl (Cymbalta) 30 mg HS PO 07/06/21 21:00 09/28/21 20:27 Mirtazapine (Remeron) 7.5 mg HS PO 07/06/21 21:00 07/29/21 18:15 DC 07/28/21 20:09 Olanzapine (ZyPREXA ZYDIS) 2.5 mg PRN Q2HR PRN PO ANXIETY / AGITATION 07/06/21 01:15 09/14/21 21:08 Trazodone HCl (Desyrel) 50 mg PRN QHS PRN PO INSOMNIA 07/06/21 01:15 09/09/21 20:37 Acetaminophen (Tylenol) 650 mg PRN Q4HRS PRN PO MILD PAIN 1-3 07/06/21 10:30 09/06/21 17:39 Aspirin (Aspirin Enteric Coated) 81 mg DAILY PO 07/07/21 09:00 09/28/21 08:31 Atorvastatin Calcium (Lipitor) 10 mg QHS PO 07/06/21 21:00 09/28/21 20:27 Carvedilol (Coreg) 3.125 mg BIDWMEALS PO 07/06/21 17:00 07/25/21 17:52 DC 07/25/21 17:22 Gabapentin (Neurontin) 300 mg BID PO 07/06/21 21:00 08/30/21 12:29 DC 08/30/21 08:20 Metformin HCl (Glucophage Xr) 500 mg DAILYWBKFT PO 07/07/21 08:00 09/28/21 08:31 Multi-Ingredient Ointment (Analgesic [place]) 1 inna PRN QID PRN TP PAIN 07/06/21 10:30 UNV Phenytoin Sodium (Dilantin) 500 mg HS PO 07/06/21 21:00 07/07/21 22:27 DC 07/07/21 20:05 Tamsulosin HCl (Flomax) 0.4 mg DAILY PO 07/07/21 09:00 09/28/21 08:31 Polyethylene Glycol (miraLAX) 17 gm PRN DAILY PRN PO 1ST CHOICE CONSTIPATION 07/06/21 10:45 08/13/21 20:07 Non-Formulary Medication (Pravastatin Sodium ) 40 mg DAILY PO 07/07/21 09:00 UNV Phenyleph/Shark Oil/Min Oil/Petrol (Preparation H) 1 inna PRN QID PRN RC RECTAL PAIN 07/06/21 15:15 Phenytoin Sodium (Dilantin) 400 mg HS PO 07/08/21 21:00 07/11/21 23:36 DC 07/11/21 20:35 Albuterol/ Ipratropium (Combivent Respimat 20-100 Mcg) 1 puff QID INH 07/08/21 13:00 09/28/21 20:27 Docusate Sodium (Colace) 100 mg DAILY PO 07/09/21 09:00 09/28/21 08:31 Guaifenesin (Mucinex Er) 600 mg BID PO 07/08/21 21:00 09/28/21 20:27 Magnesium Hydroxide (Milk Of Magnesia) 2,400 mg PRN QHS PRN PO 2nd CHOICE CONSTIPATION 07/08/21 19:30 Cancel Phenytoin Sodium (Dilantin) 200 mg HS PO 07/12/21 21:00 09/28/21 20:27 Phenytoin Sodium (Dilantin) 100 mg DAILY PO 07/12/21 09:00 09/28/21 08:31 Carvedilol (Coreg) 6.25 mg BIDWMEALS PO 07/25/21 18:00 07/25/21 18:07 DC Carvedilol (Coreg) 6.25 mg BIDWMEALS PO 07/26/21 08:00 08/02/21 09:02 DC 08/02/21 08:33 Mirtazapine (Remeron) 15 mg QHS PO 07/29/21 21:00 09/28/21 20:27 Carvedilol (Coreg) 12.5 mg BIDWMEALS PO 08/02/21 17:00 09/28/21 17:26 Albuterol Sulfate (Ventolin Hfa Inhaler) 2 puff PRN Q4HRS PRN INH SHORTNESS OF BREATH 08/02/21 09:15 09/27/21 14:03 Melatonin (Melatonin) 3 mg QHS PO 08/05/21 21:00 08/18/21 14:06 DC 08/17/21 20:06 Oxycodone/ Acetaminophen (Percocet 10) 1 tab PRN Q6HRS PRN PO MOD-SEV PAIN 08/15/21 00:15 08/15/21 00:23 Melatonin (Melatonin) 6 mg QHS PO 08/18/21 21:00 09/28/21 20:27 Influenza Virus Vaccine Quadrival (Flulaval Quad [id number] Syringe) 0.5 ml ONCE ONCE VAX IM 08/20/21 09:00 08/20/21 09:01 DC 08/20/21 11:35 Gabapentin (Neurontin) 100 mg 1X ONCE PO 08/30/21 14:00 08/30/21 14:01 Cancel Gabapentin (Neurontin) 200 mg 1X ONCE PO 08/30/21 21:00 08/30/21 21:01 Cancel Gabapentin (Neurontin) 300 mg BID PO 08/31/21 09:00 09/28/21 20:27 Gabapentin (Neurontin) 300 mg 1X ONCE PO 08/30/21 12:45 08/30/21 12:46 DC 08/30/21 12:42 Nystatin (Nystop) 1 inna BID PRN TP antifungal 09/14/21 19:45 I have reviewed the current psychotropics carefully including drug interactions. Risk benefit ratio favors no change other than as noted in my dictated progress note. Diagnosis: Problems: (1) Impulse control disorder, unspecified (2) Anxiety disorder, unspecified (3) Dementia, vascular, with depression (4) Dementia, vascular, with delusions (5) Major neurocognitive disorder (6) Dementia in Alzheimer's disease with depression (7) Dementia in Alzheimer's disease with delusions (8) Dementia of the Alzheimer's type with early onset with behavioral dis turbance (9) Major depressive disorder in partial remission NIK LOYA MD Sep 29, 2021 08:32
--- NOTE | 2021-09-29 08:45 | PDOC ---
Exam Note: Leo Note: This note is a late entry for 09/27/2021 covers elements not covered in my initial note. Subjective: The patient was seen individually in the evening of 09/27/2021 with Mane KOWALSKI, discussed and reviewed the chart. The patient slept 7 hours previous night. Overall the patient is about the same per nursing report. He continues to obsess about his nephew taking his car and I addressed this with him. Review of Systems: Ambulation impaired in wheelchair. No CV, , pulmonary, eye, ENT system symptoms on review. Mental Status Exam: The patient is oriented to himself and situation. Speech coherent. Abstraction fair. Computation impaired. Mood and affect obsessed, anxious. Laboratory Data: Reviewed. Impression: Major depressive disorder, in partial remission. Major neurocognitive disorder, Alzheimer, vascular with delusion, depression, behavioral disturbance. Anxiety disorder unspecified. Impulse control disorder unspecified. Plan: No change from initial note. Assessment: Vital Signs/I&O: Vital Signs Date Time Temp Pulse Resp B/P (MAP) Pulse Ox O2 Delivery O2 Flow Rate FiO2 09/29/21 08:31 78 164/67 09/29/21 05:55 97.4 22 95 09/28/21 06:11 Room Air 09/23/21 16:03 92.0 I & O 09/28/21 09/28/21 09/29/21 15:00 23:00 07:00 Intake Total 960 ml 600 ml Balance 960 ml 600 ml Labs: Laboratory Tests Test 09/29/21 07:42 Glucose (Fingerstick) 125 mg/dL (70-99) H Current Medications: Meds: Laboratory Tests Test 09/29/21 07:42 Glucose (Fingerstick) 125 mg/dL Current Medications Medications (Trade) Dose Ordered Sig/Aparna Route PRN Reason Start Time Stop Time Status Last Admin Dose Admin Acetaminophen (Tylenol) 650 mg PRN Q6HRS PRN PO MILD PAIN / TEMP > 100.3'F 07/06/21 00:30 Cancel Multi-Ingredient Ointment (Analgesic [place]) 1 inna PRN QID PRN TP MUSCLE PAIN 07/06/21 00:30 09/06/21 17:39 Al Hydroxide/Mg Hydroxide (Mylanta Plus Xs) 15 ml PRN AFTMEALHC PRN PO DYSPEPSIA 07/06/21 00:30 09/27/21 14:28 Magnesium Hydroxide (Milk Of Magnesia) 2,400 mg PRN QHS PRN PO 2ND CHOICE CONSTIPATION 07/06/21 00:30 07/14/21 08:13 Duloxetine HCl (Cymbalta) 20 mg HS PO 07/06/21 21:00 09/28/21 20:27 Duloxetine HCl (Cymbalta) 30 mg HS PO 07/06/21 21:00 09/28/21 20:27 Mirtazapine (Remeron) 7.5 mg HS PO 07/06/21 21:00 07/29/21 18:15 DC 07/28/21 20:09 Olanzapine (ZyPREXA ZYDIS) 2.5 mg PRN Q2HR PRN PO ANXIETY / AGITATION 07/06/21 01:15 09/14/21 21:08 Trazodone HCl (Desyrel) 50 mg PRN QHS PRN PO INSOMNIA 07/06/21 01:15 09/09/21 20:37 Acetaminophen (Tylenol) 650 mg PRN Q4HRS PRN PO MILD PAIN 1-3 07/06/21 10:30 09/06/21 17:39 Aspirin (Aspirin Enteric Coated) 81 mg DAILY PO 07/07/21 09:00 09/29/21 08:30 Atorvastatin Calcium (Lipitor) 10 mg QHS PO 07/06/21 21:00 09/28/21 20:27 Carvedilol (Coreg) 3.125 mg BIDWMEALS PO 07/06/21 17:00 07/25/21 17:52 DC 07/25/21 17:22 Gabapentin (Neurontin) 300 mg BID PO 07/06/21 21:00 08/30/21 12:29 DC 08/30/21 08:20 Metformin HCl (Glucophage Xr) 500 mg DAILYWBKFT PO 07/07/21 08:00 09/29/21 08:31 Multi-Ingredient Ointment (Analgesic [place]) 1 inna PRN QID PRN TP PAIN 07/06/21 10:30 UNV Phenytoin Sodium (Dilantin) 500 mg HS PO 07/06/21 21:00 07/07/21 22:27 DC 07/07/21 20:05 Tamsulosin HCl (Flomax) 0.4 mg DAILY PO 07/07/21 09:00 09/29/21 08:31 Polyethylene Glycol (miraLAX) 17 gm PRN DAILY PRN PO 1ST CHOICE CONSTIPATION 07/06/21 10:45 08/13/21 20:07 Non-Formulary Medication (Pravastatin Sodium ) 40 mg DAILY PO 07/07/21 09:00 UNV Phenyleph/Shark Oil/Min Oil/Petrol (Preparation H) 1 inna PRN QID PRN RC RECTAL PAIN 07/06/21 15:15 Phenytoin Sodium (Dilantin) 400 mg HS PO 07/08/21 21:00 07/11/21 23:36 DC 07/11/21 20:35 Albuterol/ Ipratropium (Combivent Respimat 20-100 Mcg) 1 puff QID INH 07/08/21 13:00 09/29/21 08:30 Docusate Sodium (Colace) 100 mg DAILY PO 07/09/21 09:00 09/29/21 08:31 Guaifenesin (Mucinex Er) 600 mg BID PO 07/08/21 21:00 09/29/21 08:30 Magnesium Hydroxide (Milk Of Magnesia) 2,400 mg PRN QHS PRN PO 2nd CHOICE CONSTIPATION 07/08/21 19:30 Cancel Phenytoin Sodium (Dilantin) 200 mg HS PO 07/12/21 21:00 09/28/21 20:27 Phenytoin Sodium (Dilantin) 100 mg DAILY PO 07/12/21 09:00 09/29/21 08:31 Carvedilol (Coreg) 6.25 mg BIDWMEALS PO 07/25/21 18:00 07/25/21 18:07 DC Carvedilol (Coreg) 6.25 mg BIDWMEALS PO 07/26/21 08:00 08/02/21 09:02 DC 08/02/21 08:33 Mirtazapine (Remeron) 15 mg QHS PO 07/29/21 21:00 09/28/21 20:27 Carvedilol (Coreg) 12.5 mg BIDWMEALS PO 08/02/21 17:00 09/29/21 08:31 Albuterol Sulfate (Ventolin Hfa Inhaler) 2 puff PRN Q4HRS PRN INH SHORTNESS OF BREATH 08/02/21 09:15 09/27/21 14:03 Melatonin (Melatonin) 3 mg QHS PO 08/05/21 21:00 08/18/21 14:06 DC 08/17/21 20:06 Oxycodone/ Acetaminophen (Percocet 10) 1 tab PRN Q6HRS PRN PO MOD-SEV PAIN 08/15/21 00:15 08/15/21 00:23 Melatonin (Melatonin) 6 mg QHS PO 08/18/21 21:00 09/28/21 20:27 Influenza Virus Vaccine Quadrival (Flulaval Quad Syringe) 0.5 ml ONCE ONCE VAX IM 08/20/21 09:00 08/20/21 09:01 DC 08/20/21 11:35 Gabapentin (Neurontin) 100 mg 1X ONCE PO 08/30/21 14:00 08/30/21 14:01 Cancel Gabapentin (Neurontin) 200 mg 1X ONCE PO 08/30/21 21:00 08/30/21 21:01 Cancel Gabapentin (Neurontin) 300 mg BID PO 08/31/21 09:00 09/29/21 08:31 Gabapentin (Neurontin) 300 mg 1X ONCE PO 08/30/21 12:45 08/30/21 12:46 DC 08/30/21 12:42 Nystatin (Nystop) 1 inna BID PRN TP antifungal 09/14/21 19:45 I have reviewed the current psychotropics carefully including drug interactions. Risk benefit ratio favors no change other than as noted in my dictated progress note. Diagnosis: Problems: (1) Major depressive disorder in partial remission (2) Impulse control disorder, unspecified (3) Anxiety disorder, unspecified (4) Dementia, vascular, with depression (5) Dementia, vascular, with delusions (6) Major neurocognitive disorder (7) Dementia in Alzheimer's disease with depression (8) Dementia in Alzheimer's disease with delusions (9) Dementia of the Alzheimer's type with early onset with behavioral disturbance NIK LOYA MD Sep 29, 2021 08:45
--- NOTE | 2021-09-29 09:05 | PDOC ---
Exam Note: Leo Note: Late entry for 09/28/2021. Please also refer to the separate dictated note~for this date of service dictated separately. Discussed the patient with Nursing staff reviewed the chart.~Reviewed interim history and current functioning. Reviewed vital signs,~Labs/ Radiology~and current medications noted below. Continue current treatment with the changes noted in the dictated addendum note Assessment: Vital Signs/I&O: Vital Signs Date Time Temp Pulse Resp B/P (MAP) Pulse Ox O2 Delivery O2 Flow Rate FiO2 09/29/21 08:31 78 164/67 09/29/21 05:55 97.4 22 95 09/28/21 06:11 Room Air 09/23/21 16:03 92.0 I & O 09/28/21 09/28/21 09/29/21 15:00 23:00 07:00 Intake Total 960 ml 600 ml Balance 960 ml 600 ml Labs: Laboratory Tests Test 09/29/21 07:42 Glucose (Fingerstick) 125 mg/dL (70-99) H Current Medications: Meds: Laboratory Tests Test 09/29/21 07:42 Glucose (Fingerstick) 125 mg/dL Current Medications Medications (Trade) Dose Ordered Sig/Aparna Route PRN Reason Start Time Stop Time Status Last Admin Dose Admin Acetaminophen (Tylenol) 650 mg PRN Q6HRS PRN PO MILD PAIN / TEMP > 100.3'F 07/06/21 00:30 Cancel Multi-Ingredient Ointment (Analgesic [place]) 1 inna PRN QID PRN TP MUSCLE PAIN 07/06/21 00:30 09/06/21 17:39 Al Hydroxide/Mg Hydroxide (Mylanta Plus Xs) 15 ml PRN AFTMEALHC PRN PO DYSPEPSIA 07/06/21 00:30 09/27/21 14:28 Magnesium Hydroxide (Milk Of Magnesia) 2,400 mg PRN QHS PRN PO 2ND CHOICE CONSTIPATION 07/06/21 00:30 07/14/21 08:13 Duloxetine HCl (Cymbalta) 20 mg HS PO 07/06/21 21:00 09/28/21 20:27 Duloxetine HCl (Cymbalta) 30 mg HS PO 07/06/21 21:00 09/28/21 20:27 Mirtazapine (Remeron) 7.5 mg HS PO 07/06/21 21:00 07/29/21 18:15 DC 07/28/21 20:09 Olanzapine (ZyPREXA ZYDIS) 2.5 mg PRN Q2HR PRN PO ANXIETY / AGITATION 07/06/21 01:15 09/14/21 21:08 Trazodone HCl (Desyrel) 50 mg PRN QHS PRN PO INSOMNIA 07/06/21 01:15 09/09/21 20:37 Acetaminophen (Tylenol) 650 mg PRN Q4HRS PRN PO MILD PAIN 1-3 07/06/21 10:30 09/06/21 17:39 Aspirin (Aspirin Enteric Coated) 81 mg DAILY PO 07/07/21 09:00 09/29/21 08:30 Atorvastatin Calcium (Lipitor) 10 mg QHS PO 07/06/21 21:00 09/28/21 20:27 Carvedilol (Coreg) 3.125 mg BIDWMEALS PO 07/06/21 17:00 07/25/21 17:52 DC 07/25/21 17:22 Gabapentin (Neurontin) 300 mg BID PO 07/06/21 21:00 08/30/21 12:29 DC 08/30/21 08:20 Metformin HCl (Glucophage Xr) 500 mg DAILYWBKFT PO 07/07/21 08:00 09/29/21 08:31 Multi-Ingredient Ointment (Analgesic [place]) 1 inna PRN QID PRN TP PAIN 07/06/21 10:30 UNV Phenytoin Sodium (Dilantin) 500 mg HS PO 07/06/21 21:00 07/07/21 22:27 DC 07/07/21 20:05 Tamsulosin HCl (Flomax) 0.4 mg DAILY PO 07/07/21 09:00 09/29/21 08:31 Polyethylene Glycol (miraLAX) 17 gm PRN DAILY PRN PO 1ST CHOICE CONSTIPATION 07/06/21 10:45 08/13/21 20:07 Non-Formulary Medication (Pravastatin Sodium ) 40 mg DAILY PO 07/07/21 09:00 UNV Phenyleph/Shark Oil/Min Oil/Petrol (Preparation H) 1 inna PRN QID PRN RC RECTAL PAIN 07/06/21 15:15 Phenytoin Sodium (Dilantin) 400 mg HS PO 07/08/21 21:00 07/11/21 23:36 DC 07/11/21 20:35 Albuterol/ Ipratropium (Combivent Respimat 20-100 Mcg) 1 puff QID INH 07/08/21 13:00 09/29/21 08:30 Docusate Sodium (Colace) 100 mg DAILY PO 07/09/21 09:00 09/29/21 08:31 Guaifenesin (Mucinex Er) 600 mg BID PO 07/08/21 21:00 09/29/21 08:30 Magnesium Hydroxide (Milk Of Magnesia) 2,400 mg PRN QHS PRN PO 2nd CHOICE CONSTIPATION 07/08/21 19:30 Cancel Phenytoin Sodium (Dilantin) 200 mg HS PO 07/12/21 21:00 09/28/21 20:27 Phenytoin Sodium (Dilantin) 100 mg DAILY PO 07/12/21 09:00 09/29/21 08:31 Carvedilol (Coreg) 6.25 mg BIDWMEALS PO 07/25/21 18:00 07/25/21 18:07 DC Carvedilol (Coreg) 6.25 mg BIDWMEALS PO 07/26/21 08:00 08/02/21 09:02 DC 08/02/21 08:33 Mirtazapine (Remeron) 15 mg QHS PO 07/29/21 21:00 09/28/21 20:27 Carvedilol (Coreg) 12.5 mg BIDWMEALS PO 08/02/21 17:00 09/29/21 08:31 Albuterol Sulfate (Ventolin Hfa Inhaler) 2 puff PRN Q4HRS PRN INH SHORTNESS OF BREATH 08/02/21 09:15 09/27/21 14:03 Melatonin (Melatonin) 3 mg QHS PO 08/05/21 21:00 08/18/21 14:06 DC 08/17/21 20:06 Oxycodone/ Acetaminophen (Percocet 10/325) 1 tab PRN Q6HRS PRN PO MOD-SEV PAIN 08/15/21 00:15 08/15/21 00:23 Melatonin (Melatonin) 6 mg QHS PO 08/18/21 21:00 09/28/21 20:27 Influenza Virus Vaccine Quadrival (Flulaval Quad Syringe) 0.5 ml ONCE ONCE VAX IM 08/20/21 09:00 08/20/21 09:01 DC 08/20/21 11:35 Gabapentin (Neurontin) 100 mg 1X ONCE PO 08/30/21 14:00 08/30/21 14:01 Cancel Gabapentin (Neurontin) 200 mg 1X ONCE PO 08/30/21 21:00 08/30/21 21:01 Cancel Gabapentin (Neurontin) 300 mg BID PO 08/31/21 09:00 09/29/21 08:31 Gabapentin (Neurontin) 300 mg 1X ONCE PO 08/30/21 12:45 08/30/21 12:46 DC 08/30/21 12:42 Nystatin (Nystop) 1 inna BID PRN TP antifungal 09/14/21 19:45 I have reviewed the current psychotropics carefully including drug interactions. Risk benefit ratio favors no change other than as noted in my dictated progress note. Diagnosis: Problems: (1) Impulse control disorder, unspecified (2) Anxiety disorder, unspecified (3) Dementia, vascular, with depression (4) Dementia, vascular, with delusions (5) Major neurocognitive disorder (6) Dementia in Alzheimer's disease with depression (7) Dementia in Alzheimer's disease with delusions (8) Dementia of the Alzheimer's type with early onset with behavioral disturbance (9) Major depressive disorder in partial remission NIK LOYA MD Sep 29, 2021 09:05
[2021-09-29 09:29] LABS: BASO % 1 % (0-3); EOS # 0.7 x10^3/uL (0.0-0.7); EOS % 10 % (0-3); HEMOGLOBIN 12.3 g/dL (13.0-17.5); LYMPH # 1.8 x10^3/uL (1.0-4.8); LYMPH % 27 % (24-48); MEAN CORPUSCULAR HEMOGLOBIN 34 pg (25-35); MEAN CORPUSCULAR HGB CONC 32 g/dL (31-37); MEAN CORPUSCULAR VOLUME 104 fL (79-100); MONO # 0.6 x10^3/uL (0.0-1.1); MONO % 9 % (0-9); NEUT # 3.6 x10^3uL (1.8-7.7); NEUT % 54 % (31-73); PLATELET COUNT 100 x10^3/uL (140-400); RED BLOOD COUNT 3.66 x10^6/uL (4.30-5.70); RED CELL DISTRIBUTION WIDTH 14.1 % (11.5-14.5); WHITE BLOOD COUNT 6.7 x10^3/uL (4.0-11.0)
[2021-09-29 09:56] LABS: ALBUMIN 3.2 g/dL (3.4-5.0); ALBUMIN/GLOBULIN RATIO 0.8 (1.0-1.7); CALCIUM 9.1 mg/dL (8.5-10.1); CREATININE 1.3 mg/dL (0.7-1.3); GFR 53.3; POTASSIUM 4.4 mmol/L (3.5-5.1); TOTAL BILIRUBIN 0.3 mg/dL (0.2-1.0); TOTAL PROTEIN 7.2 g/dL (6.4-8.2)
--- NOTE | 2021-09-29 10:36 | NUR ---
ARI contacted Olga, apprenticeship representative with [employer] to see if she had the opportunity to speak with pt nephew. Olga reports that the nephew noted that pt receives $3500 per month; however, he does have property in [place] that is currently being disputed due to property lines. ARI questioned why he would not be able to pay for placement as they have not had to pay for placement for the last four months; which means pt has roughly $14,000 sitting? And this is September 29 which means pt will be getting another $3500. Olga does report getting the feeling that the family is attempting to hold on to pt money and doesn't understand that it doesn't work like that. Olga reports that he did mention a apprenticeship representative helping him with Medicaid and could tell his was clueless on that process as well. She will call and speak to him again and inform him that he needs to pay for placement as it arises and get pt out of the hospital [facility]. Both parties will follow up towards the end of the week.
--- NOTE | 2021-09-29 10:53 | NUR ---
ARI contacted Hilda at [facility] and re-questioned her about the family report of pt not having any money to pay for placement. According to the business office she was told that pt could not financially pay for placement at this time. ARI went over the conversation had with [employer] and according to Hilda that was not reported. ARI would like for them to reconsider pt for placement and she will plan to call pt nephew herself. ARI also questioned why pt was not considered for Skilled and she reported that they did not feel pt met criteria for Skilled. ARI reports that pt does meet criteria and the psychiatrist questioned this last week during treatment team. ARI was asked to send over updated notes and an order for SN. She will follow up with ARI on the referral decision.
--- NOTE | 2021-09-29 12:00 | NUR ---
WEEKLY ACTIVITY THERAPY NOTE Date of Admission: 07/06/21 Date of AT Assessment: 07/08 Precipitating behaviors that initiated intake and admission:Patient was reported to believe that his money was being stolen, his dog was being murdered, trying to leave the facility, disoriented, being tearful and crying frequently, and having sexually inappropriate conversations with other residents Goal aimed:increase socialization and engagement Initial Goal: Pt will participate in at least three individual or group Activity Therapy sessions per week. Goal changed 07/21:Pt will participate in at least five individual or group Activity Therapy sessions per week. Weekly progress towards goal: did not achieved, 3/ Group participation level: 3 full Weekly highlights: helped solve Halloween crossword and participated in all exercises Wednesday, laughed often during comedy hour Wednesday, made a Halloween craft with assistance and accepted a Halloween snack Wednesday Behaviors observed: pleasant, social Plan: no change to goal Beneficial adaptations: minimal assistance, encouragement
--- NOTE | 2021-09-29 14:26 | NUR ---
Nursing note: Patient in dinning room for morning medications & assessment. He is compliant with medications taken whole. Patient is A/O to self only. He propels self in w/c, & self transfers. Patient denies pain/discomfort at this time. He has had several redirects r/t poor boundaries with female peer. He is currently sitting in day room in w/c. Will continue to monitor.
--- NOTE | 2021-09-29 14:31 | NUR ---
Treatment team update: Pt is eating up to 100% of meals and sleeping on average 6 hours per night. Pt continues to be compliant with medications whole and cooperative with cares/staff direction. Pt did to hold hands with another peer but was easily directed. Pt has been accepted to a few different facilities; however, pt family continues to report that pt does not have the finances to pay for placement. ARI has been working with [employer] and [facility] to see about pt financial standing and gaining aid for placement. ARI will continue to work with the family and determine other potential options.
[2021-09-29 15:48] VITALS: BP 155/73
[2021-09-29] MEDS: ATORVASTATIN CALCIUM 10 MG TABLET. PO SCH (20:21)
[2021-09-29] MEDS: DULoxetine HCL 20 MG CAPSULE.DR PO SCH (20:21)
[2021-09-29] MEDS: MIRTAZAPINE 15 MG TABLET PO SCH (20:22)
[2021-09-29] MEDS: DULoxetine HCL 30 MG CAPSULE.DR PO SCH (20:22)
[2021-09-29] MEDS: MELATONIN 3 MG TABLET PO SCH (20:22)
--- NOTE | 2021-09-29 21:45 | PDOC ---
Exam Note: Leo Note: Please also refer to the separate dictated note~for this date of service dictated separately.~Patient seen individually. Discussed the patient with Nursing staff reviewed the chart.~Reviewed interim history and current functioning. Reviewed vital signs,~Labs/ Radiology~and current medications noted below. Continue current treatment with the changes noted in the dictated addendum note Assessment: Vital Signs/I&O: Vital Signs Date Time Temp Pulse Resp B/P (MAP) Pulse Ox O2 Delivery O2 Flow Rate FiO2 09/29/21 17:17 64 155/73 09/29/21 15:48 98.3 18 96 09/28/21 06:11 Room Air 09/23/21 16:03 92.0 I & O 09/28/21 09/28/21 09/29/21 15:00 23:00 07:00 Intake Total 960 ml 600 ml Balance 960 ml 600 ml Labs: Laboratory Tests Test 09/29/21 07:42 09/29/21 09:20 Glucose (Fingerstick) 125 mg/dL (70-99) H White Blood Count 6.7 x10^3/uL (4.0-11.0) Red Blood Count 3.66 x10^6/uL (4.30-5.70) L Hemoglobin 12.3 g/dL (13.0-17.5) L Hematocrit 38.0 % (39.0-53.0) L Mean Corpuscular Volume 104 fL (79-100) H Mean Corpuscular Hemoglobin 34 pg (25-35) Mean Corpuscular Hemoglobin Concent 32 g/dL (31-37) Red Cell Distribution Width 14.1 % (11.5-14.5) Platelet Count 100 x10^3/uL (140-400) L Neutrophils (%) (Auto) 54 % (31-73) Lymphocytes (%) (Auto) 27 % (24-48) Monocytes (%) (Auto) 9 % (0-9) Eosinophils (%) (Auto) 10 % (0-3) H Basophils (%) (Auto) 1 % (0-3) Neutrophils # (Auto) 3.6 x10^3uL (1.8-7.7) Lymphocytes # (Auto) 1.8 x10^3/uL (1.0-4.8) Monocytes # (Auto) 0.6 x10^3/uL (0.0-1.1) Eosinophils # (Auto) 0.7 x10^3/uL (0.0-0.7) Basophils # (Auto) 0.0 x10^3/uL (0.0-0.2) Sodium Level 139 mmol/L (136-145) Potassium Level 4.4 mmol/L (3.5-5.1) Chloride Level 103 mmol/L (98-107) Carbon Dioxide Level 30 mmol/L (21-32) Anion Gap 6 (6-14) Blood Urea Nitrogen 43 mg/dL (8-26) H Creatinine 1.3 mg/dL (0.7-1.3) Estimated GFR (Cockcroft-Gault) 53.3 BUN/Creatinine Ratio 33 (6-20) H Glucose Level 217 mg/dL (70-99) H Calcium Level 9.1 mg/dL (8.5-10.1) Total Bilirubin 0.3 mg/dL (0.2-1.0) Aspartate Amino Transferase (AST) 19 U/L (15-37) Alanine Aminotransferase (ALT) 25 U/L (16-63) Alkaline Phosphatase 132 U/L (46-116) H Total Protein 7.2 g/dL (6.4-8.2) Albumin 3.2 g/dL (3.4-5.0) L Albumin/Globulin Ratio 0.8 (1.0-1.7) L Current Medications: Meds: Laboratory Tests Test 09/29/21 07:42 09/29/21 09:20 Glucose (Fingerstick) 125 mg/dL White Blood Count 6.7 x10^3/uL Red Blood Count 3.66 x10^6/uL Hemoglobin 12.3 g/dL Hematocrit 38.0 % Mean Corpuscular Volume 104 fL Mean Corpuscular Hemoglobin 34 pg Mean Corpuscular Hemoglobin Concent 32 g/dL Red Cell Distribution Width 14.1 % Platelet Count 100 x10^3/uL Neutrophils (%) (Auto) 54 % Lymphocytes (%) (Auto) 27 % Monocytes (%) (Auto) 9 % Eosinophils (%) (Auto) 10 % Basophils (%) (Auto) 1 % Neutrophils # (Auto) 3.6 x10^3uL Lymphocytes # (Auto) 1.8 x10^3/uL Monocytes # (Auto) 0.6 x10^3/uL Eosinophils # (Auto) 0.7 x10^3/uL Basophils # (Auto) 0.0 x10^3/uL Sodium Level 139 mmol/L Potassium Level 4.4 mmol/L Chloride Level 103 mmol/L Carbon Dioxide Level 30 mmol/L Anion Gap 6 Blood Urea Nitrogen 43 mg/dL Creatinine 1.3 mg/dL Estimated GFR (Cockcroft-Gault) 53.3 BUN/Creatinine Ratio 33 Glucose Level 217 mg/dL Calcium Level 9.1 mg/dL Total Bilirubin 0.3 mg/dL Aspartate Amino Transf (AST/SGOT) 19 U/L Alanine Aminotransferase (ALT/SGPT) 25 U/L Alkaline Phosphatase 132 U/L Total Protein 7.2 g/dL Albumin 3.2 g/dL Albumin/Globulin Ratio 0.8 Current Medications Medications (Trade) Dose Ordered Sig/Aparna Route PRN Reason Start Time Stop Time Status Last Admin Dose Admin Acetaminophen (Tylenol) 650 mg PRN Q6HRS PRN PO MILD PAIN / TEMP > 100.3'F 07/06/21 00:30 Cancel Multi-Ingredient Ointment (Analgesic [place]) 1 inna PRN QID PRN TP MUSCLE PAIN 07/06/21 00:30 09/06/21 17:39 Al Hydroxide/Mg Hydroxide (Mylanta Plus Xs) 15 ml PRN AFTMEALHC PRN PO DYSPEPSIA 07/06/21 00:30 09/27/21 14:28 Magnesium Hydroxide (Milk Of Magnesia) 2,400 mg PRN QHS PRN PO 2ND CHOICE CONSTIPATION 07/06/21 00:30 07/14/21 08:13 Duloxetine HCl (Cymbalta) 20 mg HS PO 07/06/21 21:00 09/29/21 20:21 Duloxetine HCl (Cymbalta) 30 mg HS PO 07/06/21 21:00 09/29/21 20:22 Mirtazapine (Remeron) 7.5 mg HS PO 07/06/21 21:00 07/29/21 18:15 DC 07/28/21 20:09 Olanzapine (ZyPREXA ZYDIS) 2.5 mg PRN Q2HR PRN PO ANXIETY / AGITATION 07/06/21 01:15 09/14/21 21:08 Trazodone HCl (Desyrel) 50 mg PRN QHS PRN PO INSOMNIA 07/06/21 01:15 09/09/21 20:37 Acetaminophen (Tylenol) 650 mg PRN Q4HRS PRN PO MILD PAIN 1-3 07/06/21 10:30 09/06/21 17:39 Aspirin (Aspirin Enteric Coated) 81 mg DAILY PO 07/07/21 09:00 09/29/21 08:30 Atorvastatin Calcium (Lipitor) 10 mg QHS PO 07/06/21 21:00 09/29/21 20:21 Carvedilol (Coreg) 3.125 mg BIDWMEALS PO 07/06/21 17:00 07/25/21 17:52 DC 07/25/21 17:22 Gabapentin (Neurontin) 300 mg BID PO 07/06/21 21:00 08/30/21 12:29 DC 08/30/21 08:20 Metformin HCl (Glucophage Xr) 500 mg DAILYWBKFT PO 07/07/21 08:00 09/29/21 08:31 Multi-Ingredient Ointment (Analgesic [place]) 1 inna PRN QID PRN TP PAIN 07/06/21 10:30 UNV Phenytoin Sodium (Dilantin) 500 mg HS PO 07/06/21 21:00 07/07/21 22:27 DC 07/07/21 20:05 Tamsulosin HCl (Flomax) 0.4 mg DAILY PO 07/07/21 09:00 09/29/21 08:31 Polyethylene Glycol (miraLAX) 17 gm PRN DAILY PRN PO 1ST CHOICE CONSTIPATION 07/06/21 10:45 08/13/21 20:07 Non-Formulary Medication (Pravastatin Sodium ) 40 mg DAILY PO 07/07/21 09:00 UNV Phenyleph/Shark Oil/Min Oil/Petrol (Preparation H) 1 inna PRN QID PRN RC RECTAL PAIN 07/06/21 15:15 Phenytoin Sodium (Dilantin) 400 mg HS PO 07/08/21 21:00 07/11/21 23:36 DC 07/11/21 20:35 Albuterol/ Ipratropium (Combivent Respimat 20-100 Mcg) 1 puff QID INH 07/08/21 13:00 09/29/21 20:22 Docusate Sodium (Colace) 100 mg DAILY PO 07/09/21 09:00 09/29/21 08:31 Guaifenesin (Mucinex Er) 600 mg BID PO 07/08/21 21:00 09/29/21 20:21 Magnesium Hydroxide (Milk Of Magnesia) 2,400 mg PRN QHS PRN PO 2nd CHOICE CONSTIPATION 07/08/21 19:30 Cancel Phenytoin Sodium (Dilantin) 200 mg HS PO 07/12/21 21:00 09/29/21 20:22 Phenytoin Sodium (Dilantin) 100 mg DAILY PO 07/12/21 09:00 09/29/21 08:31 Carvedilol (Coreg) 6.25 mg BIDWMEALS PO 07/25/21 18:00 07/25/21 18:07 DC Carvedilol (Coreg) 6.25 mg BIDWMEALS PO 07/26/21 08:00 08/02/21 09:02 DC 08/02/21 08:33 Mirtazapine (Remeron) 15 mg QHS PO 07/29/21 21:00 09/29/21 20:22 Carvedilol (Coreg) 12.5 mg BIDWMEALS PO 08/02/21 17:00 09/29/21 17:17 Albuterol Sulfate (Ventolin Hfa Inhaler) 2 puff PRN Q4HRS PRN INH SHORTNESS OF BREATH 08/02/21 09:15 09/27/21 14:03 Melatonin (Melatonin) 3 mg QHS PO 08/05/21 21:00 08/18/21 14:06 DC 08/17/21 20:06 Oxycodone/ Acetaminophen (Percocet 10/325) 1 tab PRN Q6HRS PRN PO MOD-SEV PAIN 08/15/21 00:15 08/15/21 00:23 Melatonin (Melatonin) 6 mg QHS PO 08/18/21 21:00 09/29/21 20:22 Influenza Virus Vaccine Quadrival (Flulaval Quad Syringe) 0.5 ml ONCE ONCE VAX IM 08/20/21 09:00 08/20/21 09:01 DC 08/20/21 11:35 Gabapentin (Neurontin) 100 mg 1X ONCE PO 08/30/21 14:00 08/30/21 14:01 Cancel Gabapentin (Neurontin) 200 mg 1X ONCE PO 08/30/21 21:00 08/30/21 21:01 Cancel Gabapentin (Neurontin) 300 mg BID PO 08/31/21 09:00 09/29/21 20:22 Gabapentin (Neurontin) 300 mg 1X ONCE PO 08/30/21 12:45 08/30/21 12:46 DC 08/30/21 12:42 Nystatin (Nystop) 1 inna BID PRN TP antifungal 09/14/21 19:45 I have reviewed the current psychotropics carefully including drug interactions. Risk benefit ratio favors no change other than as noted in my dictated progress note. 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
--- NOTE | 2021-09-29 22:11 | NUR ---
Pt irritable and labile this evening. Pt upset bc he was from female peer. Pt stated that he "found a woman here and should be able to be with her." Pt compliant with whole medications. Pt currently sitting in the hallway asking every staff member that passes by for a Dr. Ly. Pt informed that the kitchen is closed and will not be receiving a at 10pm at night. Pt offered water and became upset. Will continue to monitor.
[2021-09-30 05:39] VITALS: BP 152/76
[2021-09-30] MEDS: metFORMIN XR 500 MG TAB.ER.24H PO SCH (08:23)
[2021-09-30] MEDS: ASPIRIN ENTERIC COATED 81 MG TABLET.DR. PO SCH (08:23)
[2021-09-30] MEDS: IPRATROPIUM/ALBUTEROL 20/100mcg/INH INHALER. INH SCH ×4 (08:23→19:32)
[2021-09-30] MEDS: PHENYTOIN SODIUM EXTENDED 100 MG CAPSULE PO SCH ×2 (08:24→19:31)
[2021-09-30] MEDS: CARVEDILOL 12.5 MG TABLET PO SCH ×2 (08:24→17:27)
[2021-09-30] MEDS: GABAPENTIN 300 MG CAPSULE. PO SCH ×2 (08:24→19:31)
[2021-09-30] MEDS: TAMSULOSIN 0.4 MG CAP.ER.24H. PO SCH (08:24)
[2021-09-30] MEDS: DOCUSATE SODIUM 100 MG CAPSULE PO SCH (08:24)
--- NOTE | 2021-09-30 08:36 | PDOC ---
Exam Note: Leo Note: This note is a late entry for 09/29/2021 covers elements not covered in my initial note. Subjective: The patient was reviewed at treatment team meeting individually in the morning on 09/29/2021 with Riri Heck, Jennifer Vizcarra, and Rvika Go (social worker school), Jennifer, activity therapy and Alejandra KOWALSKI, discussed and reviewed the chart. The patient slept 5 hours previous night. He has made friends with one of the other demented patients on the unit but no inappropriate behaviors noted. Review of Systems: Ambulation impaired in wheelchair. No CV, , pulmonary, eye, ENT system symptoms on review. Mental Status Exam: The patient is oriented to himself and situation. He is somewhat obsessive and wanting to know what his discharge plans are and I addressed this. Speech coherent. Abstraction fair. Computation impaired. Mood and affect obsessed, anxious. Laboratory Data: Reviewed. Impression: Major depressive disorder, in partial remission. Major neurocognitive disorder, Alzheimer, vascular with delusion, depression, behavioral disturbance. Anxiety disorder unspecified. Impulse control disorder unspecified. Plan: No change from initial note. Assessment: Vital Signs/I&O: Vital Signs Date Time Temp Pulse Resp B/P (MAP) Pulse Ox O2 Delivery O2 Flow Rate FiO2 09/30/21 08:24 78 152/76 09/30/21 05:39 98.3 18 94 09/28/21 06:11 Room Air I & O 09/29/21 09/29/21 09/30/21 15:00 23:00 07:00 Intake Total 1320 ml 840 ml Balance 1320 ml 840 ml Labs: Laboratory Tests Test 09/29/21 09:20 09/30/21 07:25 White Blood Count 6.7 x10^3/uL (4.0-11.0) Red Blood Count 3.66 x10^6/uL (4.30-5.70) L Hemoglobin 12.3 g/dL (13.0-17.5) L Hematocrit 38.0 % (39.0-53.0) L Mean Corpuscular Volume 104 fL (79-100) H Mean Corpuscular Hemoglobin 34 pg (25-35) Mean Corpuscular Hemoglobin Concent 32 g/dL (31-37) Red Cell Distribution Width 14.1 % (11.5-14.5) Platelet Count 100 x10^3/uL (140-400) L Neutrophils (%) (Auto) 54 % (31-73) Lymphocytes (%) (Auto) 27 % (24-48) Monocytes (%) (Auto) 9 % (0-9) Eosinophils (%) (Auto) 10 % (0-3) H Basophils (%) (Auto) 1 % (0-3) Neutrophils # (Auto) 3.6 x10^3uL (1.8-7.7) Lymphocytes # (Auto) 1.8 x10^3/uL (1.0-4.8) Monocytes # (Auto) 0.6 x10^3/uL (0.0-1.1) Eosinophils # (Auto) 0.7 x10^3/uL (0.0-0.7) Basophils # (Auto) 0.0 x10^3/uL (0.0-0.2) Sodium Level 139 mmol/L (136-145) Potassium Level 4.4 mmol/L (3.5-5.1) Chloride Level 103 mmol/L (98-107) Carbon Dioxide Level 30 mmol/L (21-32) Anion Gap 6 (6-14) Blood Urea Nitrogen 43 mg/dL (8-26) H Creatinine 1.3 mg/dL (0.7-1.3) Estimated GFR (Cockcroft-Gault) 53.3 BUN/Creatinine Ratio 33 (6-20) H Glucose Level 217 mg/dL (70-99) H Calcium Level 9.1 mg/dL (8.5-10.1) Total Bilirubin 0.3 mg/dL (0.2-1.0) Aspartate Amino Transferase (AST) 19 U/L (15-37) Alanine Aminotransferase (ALT) 25 U/L (16-63) Alkaline Phosphatase 132 U/L (46-116) H Total Protein 7.2 g/dL (6.4-8.2) Albumin 3.2 g/dL (3.4-5.0) L Albumin/Globulin Ratio 0.8 (1.0-1.7) L Glucose (Fingerstick) 192 mg/dL (70-99) H Current Medications: Meds: Laboratory Tests Test 09/29/21 09:20 09/30/21 07:25 White Blood Count 6.7 x10^3/uL Red Blood Count 3.66 x10^6/uL Hemoglobin 12.3 g/dL Hematocrit 38.0 % Mean Corpuscular Volume 104 fL Mean Corpuscular Hemoglobin 34 pg Mean Corpuscular Hemoglobin Concent 32 g/dL Red Cell Distribution Width 14.1 % Platelet Count 100 x10^3/uL Neutrophils (%) (Auto) 54 % Lymphocytes (%) (Auto) 27 % Monocytes (%) (Auto) 9 % Eosinophils (%) (Auto) 10 % Basophils (%) (Auto) 1 % Neutrophils # (Auto) 3.6 x10^3uL Lymphocytes # (Auto) 1.8 x10^3/uL Monocytes # (Auto) 0.6 x10^3/uL Eosinophils # (Auto) 0.7 x10^3/uL Basophils # (Auto) 0.0 x10^3/uL Sodium Level 139 mmol/L Potassium Level 4.4 mmol/L Chloride Level 103 mmol/L Carbon Dioxide Level 30 mmol/L Anion Gap 6 Blood Urea Nitrogen 43 mg/dL Creatinine 1.3 mg/dL Estimated GFR (Cockcroft-Gault) 53.3 BUN/Creatinine Ratio 33 Glucose Level 217 mg/dL Calcium Level 9.1 mg/dL Total Bilirubin 0.3 mg/dL Aspartate Amino Transf (AST/SGOT) 19 U/L Alanine Aminotransferase (ALT/SGPT) 25 U/L Alkaline Phosphatase 132 U/L Total Protein 7.2 g/dL Albumin 3.2 g/dL Albumin/Globulin Ratio 0.8 Glucose (Fingerstick) 192 mg/dL Current Medications Medications (Trade) Dose Ordered Sig/Aparna Route PRN Reason Start Time Stop Time Status Last Admin Dose Admin Acetaminophen (Tylenol) 650 mg PRN Q6HRS PRN PO MILD PAIN / TEMP > 100.3'F 07/06/21 00:30 Cancel Multi-Ingredient Ointment (Analgesic [place]) 1 inna PRN QID PRN TP MUSCLE PAIN 07/06/21 00:30 09/06/21 17:39 Al Hydroxide/Mg Hydroxide (Mylanta Plus Xs) 15 ml PRN AFTMEALHC PRN PO DYSPEPSIA 07/06/21 00:30 09/27/21 14:28 Magnesium Hydroxide (Milk Of Magnesia) 2,400 mg PRN QHS PRN PO 2ND CHOICE CONSTIPATION 07/06/21 00:30 07/14/21 08:13 Duloxetine HCl (Cymbalta) 20 mg HS PO 07/06/21 21:00 09/29/21 20:21 Duloxetine HCl (Cymbalta) 30 mg HS PO 07/06/21 21:00 09/29/21 20:22 Mirtazapine (Remeron) 7.5 mg HS PO 07/06/21 21:00 07/29/21 18:15 DC 07/28/21 20:09 Olanzapine (ZyPREXA ZYDIS) 2.5 mg PRN Q2HR PRN PO ANXIETY / AGITATION 07/06/21 01:15 09/14/21 21:08 Trazodone HCl (Desyrel) 50 mg PRN QHS PRN PO INSOMNIA 07/06/21 01:15 09/09/21 20:37 Acetaminophen (Tylenol) 650 mg PRN Q4HRS PRN PO MILD PAIN 1-3 07/06/21 10:30 09/06/21 17:39 Aspirin (Aspirin Enteric Coated) 81 mg DAILY PO 07/07/21 09:00 09/30/21 08:23 Atorvastatin Calcium (Lipitor) 10 mg QHS PO 07/06/21 21:00 09/29/21 20:21 Carvedilol (Coreg) 3.125 mg BIDWMEALS PO 07/06/21 17:00 07/25/21 17:52 DC 07/25/21 17:22 Gabapentin (Neurontin) 300 mg BID PO 07/06/21 21:00 08/30/21 12:29 DC 08/30/21 08:20 Metformin HCl (Glucophage Xr) 500 mg DAILYWBKFT PO 07/07/21 08:00 09/30/21 08:23 Multi-Ingredient Ointment (Analgesic [place]) 1 inna PRN QID PRN TP PAIN 07/06/21 10:30 UNV Phenytoin Sodium (Dilantin) 500 mg HS PO 07/06/21 21:00 07/07/21 22:27 DC 07/07/21 20:05 Tamsulosin HCl (Flomax) 0.4 mg DAILY PO 07/07/21 09:00 09/30/21 08:24 Polyethylene Glycol (miraLAX) 17 gm PRN DAILY PRN PO 1ST CHOICE CONSTIPATION 07/06/21 10:45 08/13/21 20:07 Non-Formulary Medication (Pravastatin Sodium ) 40 mg DAILY PO 07/07/21 09:00 UNV Phenyleph/Shark Oil/Min Oil/Petrol (Preparation H) 1 inna PRN QID PRN RC RECTAL PAIN 07/06/21 15:15 Phenytoin Sodium (Dilantin) 400 mg HS PO 07/08/21 21:00 07/11/21 23:36 DC 07/11/21 20:35 Albuterol/ Ipratropium (Combivent Respimat 20-100 Mcg) 1 puff QID INH 07/08/21 13:00 09/30/21 08:23 Docusate Sodium (Colace) 100 mg DAILY PO 07/09/21 09:00 09/30/21 08:24 Guaifenesin (Mucinex Er) 600 mg BID PO 07/08/21 21:00 09/30/21 08:24 Magnesium Hydroxide (Milk Of Magnesia) 2,400 mg PRN QHS PRN PO 2nd CHOICE CONSTIPATION 07/08/21 19:30 Cancel Phenytoin Sodium (Dilantin) 200 mg HS PO 07/12/21 21:00 09/29/21 20:22 Phenytoin Sodium (Dilantin) 100 mg DAILY PO 07/12/21 09:00 09/30/21 08:24 Carvedilol (Coreg) 6.25 mg BIDWMEALS PO 07/25/21 18:00 07/25/21 18:07 DC Carvedilol (Coreg) 6.25 mg BIDWMEALS PO 07/26/21 08:00 08/02/21 09:02 DC 08/02/21 08:33 Mirtazapine (Remeron) 15 mg QHS PO 07/29/21 21:00 09/29/21 20:22 Carvedilol (Coreg) 12.5 mg BIDWMEALS PO 08/02/21 17:00 09/30/21 08:24 Albuterol Sulfate (Ventolin Hfa Inhaler) 2 puff PRN Q4HRS PRN INH SHORTNESS OF BREATH 08/02/21 09:15 09/27/21 14:03 Melatonin (Melatonin) 3 mg QHS PO 08/05/21 21:00 08/18/21 14:06 DC 08/17/21 20:06 Oxycodone/ Acetaminophen (Percocet 10/325) 1 tab PRN Q6HRS PRN PO MOD-SEV PAIN 08/15/21 00:15 08/15/21 00:23 Melatonin (Melatonin) 6 mg QHS PO 08/18/21 21:00 09/29/21 20:22 Influenza Virus Vaccine Quadrival (Flulaval Quad Syringe) 0.5 ml ONCE ONCE VAX IM 08/20/21 09:00 08/20/21 09:01 DC 08/20/21 11:35 Gabapentin (Neurontin) 100 mg 1X ONCE PO 08/30/21 14:00 08/30/21 14:01 Cancel Gabapentin (Neurontin) 200 mg 1X ONCE PO 08/30/21 21:00 08/30/21 21:01 Cancel Gabapentin (Neurontin) 300 mg BID PO 08/31/21 09:00 09/30/21 08:24 Gabapentin (Neurontin) 300 mg 1X ONCE PO 08/30/21 12:45 08/30/21 12:46 DC 08/30/21 12:42 Nystatin (Nystop) 1 inna BID PRN TP antifungal 09/14/21 19:45 I have reviewed the current psychotropics carefully including drug interactions. Risk benefit ratio favors no change other than as noted in my dictated progress note. 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
--- NOTE | 2021-09-30 14:14 | NUR ---
Nursing note: Patient in dinning room for morning medications & assessment. He is compliant with medications taken whole. Patient is A/O to self only. He propels self in w/c, & self transfers. Patient denies pain/discomfort at this time. He is currently sitting in his room in w/c. Will continue to monitor.
[2021-09-30 15:44] VITALS: BP 136/73
[2021-09-30] MEDS: DULoxetine HCL 30 MG CAPSULE.DR PO SCH (19:30)
[2021-09-30] MEDS: DULoxetine HCL 20 MG CAPSULE.DR PO SCH (19:30)
[2021-09-30] MEDS: MIRTAZAPINE 15 MG TABLET PO SCH (19:31)
[2021-09-30] MEDS: ATORVASTATIN CALCIUM 10 MG TABLET. PO SCH (19:31)
[2021-09-30] MEDS: MELATONIN 3 MG TABLET PO SCH (19:31)
--- NOTE | 2021-09-30 22:18 | PDOC ---
Exam Note: Leo Note: Please also refer to the separate dictated note~for this date of service dictated separately.~Patient seen individually. Discussed the patient with Nursing staff reviewed the chart.~Reviewed interim history and current functioning. Reviewed vital signs,~Labs/ Radiology~and current medications noted below. Continue current treatment with the changes noted in the dictated addendum note Assessment: Vital Signs/I&O: Vital Signs Date Time Temp Pulse Resp B/P (MAP) Pulse Ox O2 Delivery O2 Flow Rate FiO2 09/30/21 17:27 65 136/73 09/30/21 15:44 98.5 20 94 09/28/21 06:11 Room Air I & O 09/29/21 09/29/21 09/30/21 15:00 23:00 07:00 Intake Total 1320 ml 840 ml Balance 1320 ml 840 ml Labs: Laboratory Tests Test 09/30/21 07:25 Glucose (Fingerstick) 192 mg/dL (70-99) H Current Medications: Meds: Laboratory Tests Test 09/30/21 07:25 Glucose (Fingerstick) 192 mg/dL Current Medications Medications (Trade) Dose Ordered Sig/Aparna Route PRN Reason Start Time Stop Time Status Last Admin Dose Admin Acetaminophen (Tylenol) 650 mg PRN Q6HRS PRN PO MILD PAIN / TEMP > 100.3'F 07/06/21 00:30 Cancel Multi-Ingredient Ointment (Analgesic [place]) 1 inna PRN QID PRN TP MUSCLE PAIN 07/06/21 00:30 09/06/21 17:39 Al Hydroxide/Mg Hydroxide (Mylanta Plus Xs) 15 ml PRN AFTMEALHC PRN PO DYSPEPSIA 07/06/21 00:30 09/27/21 14:28 Magnesium Hydroxide (Milk Of Magnesia) 2,400 mg PRN QHS PRN PO 2ND CHOICE CONSTIPATION 07/06/21 00:30 07/14/21 08:13 Duloxetine HCl (Cymbalta) 20 mg HS PO 07/06/21 21:00 09/30/21 19:30 Duloxetine HCl (Cymbalta) 30 mg HS PO 07/06/21 21:00 09/30/21 19:30 Mirtazapine (Remeron) 7.5 mg HS PO 07/06/21 21:00 07/29/21 18:15 DC 07/28/21 20:09 Olanzapine (ZyPREXA ZYDIS) 2.5 mg PRN Q2HR PRN PO ANXIETY / AGITATION 07/06/21 01:15 09/14/21 21:08 Trazodone HCl (Desyrel) 50 mg PRN QHS PRN PO INSOMNIA 07/06/21 01:15 09/09/21 20:37 Acetaminophen (Tylenol) 650 mg PRN Q4HRS PRN PO MILD PAIN 1-3 07/06/21 10:30 09/06/21 17:39 Aspirin (Aspirin Enteric Coated) 81 mg DAILY PO 07/07/21 09:00 09/30/21 08:23 Atorvastatin Calcium (Lipitor) 10 mg QHS PO 07/06/21 21:00 09/30/21 19:31 Carvedilol (Coreg) 3.125 mg BIDWMEALS PO 07/06/21 17:00 07/25/21 17:52 DC 07/25/21 17:22 Gabapentin (Neurontin) 300 mg BID PO 07/06/21 21:00 08/30/21 12:29 DC 08/30/21 08:20 Metformin HCl (Glucophage Xr) 500 mg DAILYWBKFT PO 07/07/21 08:00 09/30/21 08:23 Multi-Ingredient Ointment (Analgesic [place]) 1 inna PRN QID PRN TP PAIN 07/06/21 10:30 UNV Phenytoin Sodium (Dilantin) 500 mg HS PO 07/06/21 21:00 07/07/21 22:27 DC 07/07/21 20:05 Tamsulosin HCl (Flomax) 0.4 mg DAILY PO 07/07/21 09:00 09/30/21 08:24 Polyethylene Glycol (miraLAX) 17 gm PRN DAILY PRN PO 1ST CHOICE CONSTIPATION 07/06/21 10:45 08/13/21 20:07 Non-Formulary Medication (Pravastatin Sodium ) 40 mg DAILY PO 07/07/21 09:00 UNV Phenyleph/Shark Oil/Min Oil/Petrol (Preparation H) 1 inna PRN QID PRN RC RECTAL PAIN 07/06/21 15:15 Phenytoin Sodium (Dilantin) 400 mg HS PO 07/08/21 21:00 07/11/21 23:36 DC 07/11/21 20:35 Albuterol/ Ipratropium (Combivent Respimat 20-100 Mcg) 1 puff QID INH 07/08/21 13:00 09/30/21 19:32 Docusate Sodium (Colace) 100 mg DAILY PO 07/09/21 09:00 09/30/21 08:24 Guaifenesin (Mucinex Er) 600 mg BID PO 07/08/21 21:00 09/30/21 19:31 Magnesium Hydroxide (Milk Of Magnesia) 2,400 mg PRN QHS PRN PO 2nd CHOICE CONSTIPATION 07/08/21 19:30 Cancel Phenytoin Sodium (Dilantin) 200 mg HS PO 07/12/21 21:00 09/30/21 19:31 Phenytoin Sodium (Dilantin) 100 mg DAILY PO 07/12/21 09:00 09/30/21 08:24 Carvedilol (Coreg) 6.25 mg BIDWMEALS PO 07/25/21 18:00 07/25/21 18:07 DC Carvedilol (Coreg) 6.25 mg BIDWMEALS PO 07/26/21 08:00 08/02/21 09:02 DC 08/02/21 08:33 Mirtazapine (Remeron) 15 mg QHS PO 07/29/21 21:00 09/30/21 19:31 Carvedilol (Coreg) 12.5 mg BIDWMEALS PO 08/02/21 17:00 09/30/21 17:27 Albuterol Sulfate (Ventolin Hfa Inhaler) 2 puff PRN Q4HRS PRN INH SHORTNESS OF BREATH 08/02/21 09:15 09/27/21 14:03 Melatonin (Melatonin) 3 mg QHS PO 08/05/21 21:00 08/18/21 14:06 DC 08/17/21 20:06 Oxycodone/ Acetaminophen (Percocet 10/325) 1 tab PRN Q6HRS PRN PO MOD-SEV PAIN 08/15/21 00:15 08/15/21 00:23 Melatonin (Melatonin) 6 mg QHS PO 08/18/21 21:00 09/30/21 19:31 Influenza Virus Vaccine Quadrival (Flulaval Quad [id number] Syringe) 0.5 ml ONCE ONCE VAX IM 08/20/21 09:00 08/20/21 09:01 DC 08/20/21 11:35 Gabapentin (Neurontin) 100 mg 1X ONCE PO 08/30/21 14:00 08/30/21 14:01 Cancel Gabapentin (Neurontin) 200 mg 1X ONCE PO 08/30/21 21:00 08/30/21 21:01 Cancel Gabapentin (Neurontin) 300 mg BID PO 08/31/21 09:00 09/30/21 19:31 Gabapentin (Neurontin) 300 mg 1X ONCE PO 08/30/21 12:45 08/30/21 12:46 DC 08/30/21 12:42 Nystatin (Nystop) 1 inna BID PRN TP antifungal 09/14/21 19:45 I have reviewed the current psychotropics carefully including drug interactions. Risk benefit ratio favors no change other than as noted in my dictated progress note. Diagnosis: Problems: (1) Impulse control disorder, unspecified (2) Anxiety disorder, unspecified (3) Dementia, vascular, with depression (4) Dementia, vascular, with delusions (5) Major neurocognitive disorder (6) Dementia in Alzheimer's disease with depression (7) Dementia in Alzheimer's disease with delusions (8) Dementia of the Alzheimer's type with early onset with behavioral disturbance (9) Major depressive disorder in partial remission NIK LOYA MD Sep 30, 2021 22:18
--- NOTE | 2021-10-01 01:09 | NUR ---
Nursing Note The patient was located in the hallway interacting with peers. The patient was alert to name, date and location. The patient was able to take medication whole. The patient is currently sleeping in his room.
[2021-10-01 06:02] VITALS: BP 146/73
[2021-10-01] MEDS: TAMSULOSIN 0.4 MG CAP.ER.24H. PO SCH (08:48)
[2021-10-01] MEDS: ASPIRIN ENTERIC COATED 81 MG TABLET.DR. PO SCH (08:48)
[2021-10-01] MEDS: DOCUSATE SODIUM 100 MG CAPSULE PO SCH (08:48)
[2021-10-01] MEDS: metFORMIN XR 500 MG TAB.ER.24H PO SCH (08:49)
[2021-10-01] MEDS: IPRATROPIUM/ALBUTEROL 20/100mcg/INH INHALER. INH SCH ×4 (08:54→20:25)
[2021-10-01] MEDS: CARVEDILOL 12.5 MG TABLET PO SCH ×2 (08:54→17:27)
[2021-10-01] MEDS: PHENYTOIN SODIUM EXTENDED 100 MG CAPSULE PO SCH ×2 (08:54→20:27)
[2021-10-01] MEDS: GABAPENTIN 300 MG CAPSULE. PO SCH ×2 (08:55→20:27)
--- NOTE | 2021-10-01 13:01 | NUR ---
Nursing note: Pt in dining room at time of AM med pass and assessment. He is pleasant, med compliant and cooperative. Pt denies having any pain/concerns. He is currently in the dining room finishing his lunch. Will continue to monitor.
--- NOTE | 2021-10-01 14:24 | NUR ---
[facility] Social Work Discharge Planning Form Patient Name MAUDE TSANG Admit Date: 06 July 2021 DISCHARGE PLAN Discharge Destination: [facility] Assessment: N/A; will have orders for less than 30 day notice for skilled Level II Assessment: N/A Transportation: [facility] to pick pt up; facility will call with the arranged transport time in the morning. Special Instructions/Notes: Please fax discharge orders, discharge medications and discharge summary to the fax number listed below. DISCHARGE TO FACILITY Facility: [facility]- Address: [address] [place] [id number] Contact Name: Hilda Hale, Admissions: ([phone] Contact Name: Please as for the nurse caring for pt upon admission. PCP: Dr. Trevin Ashraf
[2021-10-01 15:34] VITALS: BP 137/73
[2021-10-01] MEDS: DULoxetine HCL 30 MG CAPSULE.DR PO SCH (20:26)
[2021-10-01] MEDS: DULoxetine HCL 20 MG CAPSULE.DR PO SCH (20:26)
[2021-10-01] MEDS: MIRTAZAPINE 15 MG TABLET PO SCH (20:27)
[2021-10-01] MEDS: MELATONIN 3 MG TABLET PO SCH (20:27)
[2021-10-01] MEDS: ATORVASTATIN CALCIUM 10 MG TABLET. PO SCH (20:27)
--- NOTE | 2021-10-01 21:50 | PDOC ---
Exam Note: Leo Note: Information from date of service 09/28/21 and my information from nursing staff for that date and review of labs and interim progress from 09/28/21 was incorporated into the note of 09/29. This note is a late entry for 09/30/2021 covers elements not covered in my initial note. Subjective: The patient was seen individually in the evening of 09/30/2021 with Alejandra KOWALSKI, discussed and reviewed the chart. The patient slept 5-3/4 hours previous night. He was irritable last evening, seems to have poor boundaries with one of the other demented patients though he has done better today. Review of Systems: Ambulation impaired in wheelchair. No CV, , pulmonary, eye, ENT system symptoms on review. Mental Status Exam: The patient is oriented to himself and situation. Speech coherent. Abstraction fair. Computation impaired. Mood and affect anxious. Laboratory Data: Reviewed. Impression: Major depressive disorder, in partial remission. Major neurocognitive disorder, Alzheimer, vascular with delusion, depression, behavioral disturbance. Anxiety disorder unspecified. Impulse control disorder unspecified. Plan: No change from initial note. Assessment: Vital Signs/I&O: Vital Signs Date Time Temp Pulse Resp B/P (MAP) Pulse Ox O2 Delivery O2 Flow Rate FiO2 10/01/21 17:27 65 137/73 10/01/21 15:34 98.0 18 97 09/28/21 06:11 Room Air I & O 09/30/21 09/30/21 10/01/21 15:00 23:00 07:00 Intake Total 1240 ml 577 ml Balance 1240 ml 577 ml Labs: Laboratory Tests Test 10/01/21 07:22 Glucose (Fingerstick) 123 mg/dL (70-99) H Current Medications: Meds: Laboratory Tests Test 10/01/21 07:22 Glucose (Fingerstick) 123 mg/dL Current Medications Medications (Trade) Dose Ordered Sig/Aparna Route PRN Reason Start Time Stop Time Status Last Admin Dose Admin Acetaminophen (Tylenol) 650 mg PRN Q6HRS PRN PO MILD PAIN / TEMP > 100.3'F 07/06/21 00:30 Cancel Multi-Ingredient Ointment (Analgesic [place]) 1 inna PRN QID PRN TP MUSCLE PAIN 07/06/21 00:30 09/06/21 17:39 Al Hydroxide/Mg Hydroxide (Mylanta Plus Xs) 15 ml PRN AFTMEALHC PRN PO DYSPEPSIA 07/06/21 00:30 09/27/21 14:28 Magnesium Hydroxide (Milk Of Magnesia) 2,400 mg PRN QHS PRN PO 2ND CHOICE CONSTIPATION 07/06/21 00:30 07/14/21 08:13 Duloxetine HCl (Cymbalta) 20 mg HS PO 07/06/21 21:00 10/01/21 20:26 Duloxetine HCl (Cymbalta) 30 mg HS PO 07/06/21 21:00 10/01/21 20:26 Mirtazapine (Remeron) 7.5 mg HS PO 07/06/21 21:00 07/29/21 18:15 DC 07/28/21 20:09 Olanzapine (ZyPREXA ZYDIS) 2.5 mg PRN Q2HR PRN PO ANXIETY / AGITATION 07/06/21 01:15 09/14/21 21:08 Trazodone HCl (Desyrel) 50 mg PRN QHS PRN PO INSOMNIA 07/06/21 01:15 09/09/21 20:37 Acetaminophen (Tylenol) 650 mg PRN Q4HRS PRN PO MILD PAIN 1-3 07/06/21 10:30 09/06/21 17:39 Aspirin (Aspirin Enteric Coated) 81 mg DAILY PO 07/07/21 09:00 10/01/21 08:48 Atorvastatin Calcium (Lipitor) 10 mg QHS PO 07/06/21 21:00 10/01/21 20:27 Carvedilol (Coreg) 3.125 mg BIDWMEALS PO 07/06/21 17:00 07/25/21 17:52 DC 07/25/21 17:22 Gabapentin (Neurontin) 300 mg BID PO 07/06/21 21:00 08/30/21 12:29 DC 08/30/21 08:20 Metformin HCl (Glucophage Xr) 500 mg DAILYWBKFT PO 07/07/21 08:00 10/01/21 08:49 Multi-Ingredient Ointment (Analgesic [place]) 1 inna PRN QID PRN TP PAIN 07/06/21 10:30 UNV Phenytoin Sodium (Dilantin) 500 mg HS PO 07/06/21 21:00 8/9/21 22:27 DC 07/07/21 20:05 Tamsulosin HCl (Flomax) 0.4 mg DAILY PO 07/07/21 09:00 10/01/21 08:48 Polyethylene Glycol (miraLAX) 17 gm PRN DAILY PRN PO 1ST CHOICE CONSTIPATION 07/06/21 10:45 08/13/21 20:07 Non-Formulary Medication (Pravastatin Sodium ) 40 mg DAILY PO 07/07/21 09:00 UNV Phenyleph/Shark Oil/Min Oil/Petrol (Preparation H) 1 inna PRN QID PRN RC RECTAL PAIN 07/06/21 15:15 Phenytoin Sodium (Dilantin) 400 mg HS PO 07/08/21 21:00 07/11/21 23:36 DC 07/11/21 20:35 Albuterol/ Ipratropium (Combivent Respimat 20-100 Mcg) 1 puff QID INH 07/08/21 13:00 10/01/21 20:25 Docusate Sodium (Colace) 100 mg DAILY PO 07/09/21 09:00 10/01/21 08:48 Guaifenesin (Mucinex Er) 600 mg BID PO 07/08/21 21:00 10/01/21 20:27 Magnesium Hydroxide (Milk Of Magnesia) 2,400 mg PRN QHS PRN PO 2nd CHOICE CONSTIPATION 07/08/21 19:30 Cancel Phenytoin Sodium (Dilantin) 200 mg HS PO 07/12/21 21:00 10/01/21 20:27 Phenytoin Sodium (Dilantin) 100 mg DAILY PO 07/12/21 09:00 10/01/21 08:54 Carvedilol (Coreg) 6.25 mg BIDWMEALS PO 07/25/21 18:00 07/25/21 18:07 DC Carvedilol (Coreg) 6.25 mg BIDWMEALS PO 07/26/21 08:00 08/02/21 09:02 DC 08/02/21 08:33 Mirtazapine (Remeron) 15 mg QHS PO 07/29/21 21:00 10/01/21 20:27 Carvedilol (Coreg) 12.5 mg BIDWMEALS PO 08/02/21 17:00 10/01/21 17:27 Albuterol Sulfate (Ventolin Hfa Inhaler) 2 puff PRN Q4HRS PRN INH SHORTNESS OF BREATH 08/02/21 09:15 09/27/21 14:03 Melatonin (Melatonin) 3 mg QHS PO 08/05/21 21:00 08/18/21 14:06 DC 08/17/21 20:06 Oxycodone/ Acetaminophen (Percocet 10/325) 1 tab PRN Q6HRS PRN PO MOD-SEV PAIN 08/15/21 00:15 08/15/21 00:23 Melatonin (Melatonin) 6 mg QHS PO 08/18/21 21:00 10/01/21 20:27 Influenza Virus Vaccine Quadrival (Flulaval Quad Syringe) 0.5 ml ONCE ONCE VAX IM 08/20/21 09:00 08/20/21 09:01 DC 08/20/21 11:35 Gabapentin (Neurontin) 100 mg 1X ONCE PO 08/30/21 14:00 08/30/21 14:01 Cancel Gabapentin (Neurontin) 200 mg 1X ONCE PO 08/30/21 21:00 08/30/21 21:01 Cancel Gabapentin (Neurontin) 300 mg BID PO 08/31/21 09:00 10/01/21 20:27 Gabapentin (Neurontin) 300 mg 1X ONCE PO 08/30/21 12:45 08/30/21 12:46 DC 08/30/21 12:42 Nystatin (Nystop) 1 inna BID PRN TP antifungal 09/14/21 19:45 I have reviewed the current psychotropics carefully including drug interactions. Risk benefit ratio favors no change other than as noted in my dictated progress note. 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
--- NOTE | 2021-10-01 21:51 | PDOC ---
Exam Note: Leo Note: Please also refer to the separate dictated note~for this date of service dictated separately.~Patient seen individually. Discussed the patient with Nursing staff reviewed the chart.~Reviewed interim history and current functioning. Reviewed vital signs,~Labs/ Radiology~and current medications noted below. Continue current treatment with the changes noted in the dictated addendum note Assessment: Vital Signs/I&O: Vital Signs Date Time Temp Pulse Resp B/P (MAP) Pulse Ox O2 Delivery O2 Flow Rate FiO2 10/01/21 17:27 65 137/73 10/01/21 15:34 98.0 18 97 09/28/21 06:11 Room Air I & O 09/30/21 09/30/21 10/01/21 15:00 23:00 07:00 Intake Total 1240 ml 577 ml Balance 1240 ml 577 ml Labs: Laboratory Tests Test 10/01/21 07:22 Glucose (Fingerstick) 123 mg/dL (70-99) H Current Medications: Meds: Laboratory Tests Test 10/01/21 07:22 Glucose (Fingerstick) 123 mg/dL Current Medications Medications (Trade) Dose Ordered Sig/Aparna Route PRN Reason Start Time Stop Time Status Last Admin Dose Admin Acetaminophen (Tylenol) 650 mg PRN Q6HRS PRN PO MILD PAIN / TEMP > 100.3'F 07/06/21 00:30 Cancel Multi-Ingredient Ointment (Analgesic [place]) 1 inna PRN QID PRN TP MUSCLE PAIN 07/06/21 00:30 09/06/21 17:39 Al Hydroxide/Mg Hydroxide (Mylanta Plus Xs) 15 ml PRN AFTMEALHC PRN PO DYSPEPSIA 07/06/21 00:30 09/27/21 14:28 Magnesium Hydroxide (Milk Of Magnesia) 2,400 mg PRN QHS PRN PO 2ND CHOICE CONSTIPATION 07/06/21 00:30 07/14/21 08:13 Duloxetine HCl (Cymbalta) 20 mg HS PO 07/06/21 21:00 10/01/21 20:26 Duloxetine HCl (Cymbalta) 30 mg HS PO 07/06/21 21:00 10/01/21 20:26 Mirtazapine (Remeron) 7.5 mg HS PO 07/06/21 21:00 07/29/21 18:15 DC 07/28/21 20:09 Olanzapine (ZyPREXA ZYDIS) 2.5 mg PRN Q2HR PRN PO ANXIETY / AGITATION 07/06/21 01:15 09/14/21 21:08 Trazodone HCl (Desyrel) 50 mg PRN QHS PRN PO INSOMNIA 07/06/21 01:15 09/09/21 20:37 Acetaminophen (Tylenol) 650 mg PRN Q4HRS PRN PO MILD PAIN 1-3 07/06/21 10:30 09/06/21 17:39 Aspirin (Aspirin Enteric Coated) 81 mg DAILY PO 07/07/21 09:00 10/01/21 08:48 Atorvastatin Calcium (Lipitor) 10 mg QHS PO 07/06/21 21:00 10/01/21 20:27 Carvedilol (Coreg) 3.125 mg BIDWMEALS PO 07/06/21 17:00 07/25/21 17:52 DC 07/25/21 17:22 Gabapentin (Neurontin) 300 mg BID PO 07/06/21 21:00 08/30/21 12:29 DC 08/30/21 08:20 Metformin HCl (Glucophage Xr) 500 mg DAILYWBKFT PO 07/07/21 08:00 10/01/21 08:49 Multi-Ingredient Ointment (Analgesic [place]) 1 inna PRN QID PRN TP PAIN 07/06/21 10:30 UNV Phenytoin Sodium (Dilantin) 500 mg HS PO 07/06/21 21:00 07/07/21 22:27 DC 07/07/21 20:05 Tamsulosin HCl (Flomax) 0.4 mg DAILY PO 07/07/21 09:00 10/01/21 08:48 Polyethylene Glycol (miraLAX) 17 gm PRN DAILY PRN PO 1ST CHOICE CONSTIPATION 07/06/21 10:45 08/13/21 20:07 Non-Formulary Medication (Pravastatin Sodium ) 40 mg DAILY PO 07/07/21 09:00 UNV Phenyleph/Shark Oil/Min Oil/Petrol (Preparation H) 1 inna PRN QID PRN RC RECTAL PAIN 07/06/21 15:15 Phenytoin Sodium (Dilantin) 400 mg HS PO 07/08/21 21:00 07/11/21 23:36 DC 07/11/21 20:35 Albuterol/ Ipratropium (Combivent Respimat 20-100 Mcg) 1 puff QID INH 07/08/21 13:00 10/01/21 20:25 Docusate Sodium (Colace) 100 mg DAILY PO 07/09/21 09:00 10/01/21 08:48 Guaifenesin (Mucinex Er) 600 mg BID PO 07/08/21 21:00 10/01/21 20:27 Magnesium Hydroxide (Milk Of Magnesia) 2,400 mg PRN QHS PRN PO 2nd CHOICE CONSTIPATION 07/08/21 19:30 Cancel Phenytoin Sodium (Dilantin) 200 mg HS PO 07/12/21 21:00 10/01/21 20:27 Phenytoin Sodium (Dilantin) 100 mg DAILY PO 07/12/21 09:00 10/01/21 08:54 Carvedilol (Coreg) 6.25 mg BIDWMEALS PO 07/25/21 18:00 07/25/21 18:07 DC Carvedilol (Coreg) 6.25 mg BIDWMEALS PO 07/26/21 08:00 08/02/21 09:02 DC 08/02/21 08:33 Mirtazapine (Remeron) 15 mg QHS PO 07/29/21 21:00 10/01/21 20:27 Carvedilol (Coreg) 12.5 mg BIDWMEALS PO 08/02/21 17:00 10/01/21 17:27 Albuterol Sulfate (Ventolin Hfa Inhaler) 2 puff PRN Q4HRS PRN INH SHORTNESS OF BREATH 08/02/21 09:15 09/27/21 14:03 Melatonin (Melatonin) 3 mg QHS PO 08/05/21 21:00 08/18/21 14:06 DC 08/17/21 20:06 Oxycodone/ Acetaminophen (Percocet 10/325) 1 tab PRN Q6HRS PRN PO MOD-SEV PAIN 08/15/21 00:15 08/15/21 00:23 Melatonin (Melatonin) 6 mg QHS PO 08/18/21 21:00 10/01/21 20:27 Influenza Virus Vaccine Quadrival (Flulaval Quad [id number] Syringe) 0.5 ml ONCE ONCE VAX IM 08/20/21 09:00 08/20/21 09:01 DC 08/20/21 11:35 Gabapentin (Neurontin) 100 mg 1X ONCE PO 08/30/21 14:00 08/30/21 14:01 Cancel Gabapentin (Neurontin) 200 mg 1X ONCE PO 08/30/21 21:00 08/30/21 21:01 Cancel Gabapentin (Neurontin) 300 mg BID PO 08/31/21 09:00 10/01/21 20:27 Gabapentin (Neurontin) 300 mg 1X ONCE PO 08/30/21 12:45 08/30/21 12:46 DC 08/30/21 12:42 Nystatin (Nystop) 1 inna BID PRN TP antifungal 09/14/21 19:45 I have reviewed the current psychotropics carefully including drug interactions. Risk benefit ratio favors no change other than as noted in my dictated progress note. Diagnosis: Problems: (1) Impulse control disorder, unspecified (2) Anxiety disorder, unspecified (3) Dementia, vascular, with depression (4) Dementia, vascular, with delusions (5) Major neurocognitive disorder (6) Dementia in Alzheimer's disease with depression (7) Dementia in Alzheimer's disease with delusions (8) Dementia of the Alzheimer's type with early onset with behavioral disturbance (9) Major depressive disorder in partial remission NIK LOYA MD Oct 01, 2021 21:51
[2021-10-02] MEDS ORDERED: NYST15PO9 TP (00:54)
[2021-10-02] MEDS ORDERED: PHEN100C PO (00:57)
[2021-10-02 06:21] VITALS: BP 134/70
[2021-10-02] MEDS: DOCUSATE SODIUM 100 MG CAPSULE PO SCH (08:22)
[2021-10-02] MEDS: IPRATROPIUM/ALBUTEROL 20/100mcg/INH INHALER. INH SCH (08:22)
[2021-10-02] MEDS: ASPIRIN ENTERIC COATED 81 MG TABLET.DR. PO SCH (08:22)
[2021-10-02] MEDS: metFORMIN XR 500 MG TAB.ER.24H PO SCH (08:22)
[2021-10-02 08:23] VITALS: BP 134/70
[2021-10-02] MEDS: GABAPENTIN 300 MG CAPSULE. PO SCH (08:23)
[2021-10-02] MEDS: CARVEDILOL 12.5 MG TABLET PO SCH (08:23)
[2021-10-02] MEDS: PHENYTOIN SODIUM EXTENDED 100 MG CAPSULE PO SCH (08:23)
[2021-10-02] MEDS: TAMSULOSIN 0.4 MG CAP.ER.24H. PO SCH (08:23)
--- NOTE | 2021-10-02 14:18 | NUR ---
Nsg Note; discharge Transition Record was faxed to follow-up provider with the following elements: Reason for admission, procedures, tests, principal diagnosis, pending studies, patient instructions, 21/06 contact information for unit, phone number to obtain pending test results, plan for follow-up care, physician follow-up, advanced directive information, and medication list with dose, duration and instructions. This information was included in the following documents: History and physical, lab results, study results, progress notes, social work planning form, DC instruction form, patient visit summary, and medication reconciliation form. Date & time record faxed: 10/02/21 at 0147 Record faxed to: [facility] [phone] Record discussed with/ report given to Kaitlyn CASTANO at 1405 Pt discharged at 1326 via w/c accomp by transport personnel. All personal items went with pt
--- NOTE | 2021-10-02 22:02 | PDOC ---
Exam Note: Leo Note: Please also refer to the separate dictated note~for this date of service dictated separately.~Patient seen individually. Discussed the patient with Nursing staff reviewed the chart.~Reviewed interim history and current functioning. Reviewed vital signs,~Labs/ Radiology~and current medications noted below. Continue current treatment with the changes noted in the dictated addendum note Assessment: Vital Signs/I&O: Vital Signs Date Time Temp Pulse Resp B/P (MAP) Pulse Ox O2 Delivery O2 Flow Rate FiO2 10/02/21 08:23 71 134/70 10/02/21 06:21 98.0 16 95 09/28/21 06:11 Room Air I & O 10/01/21 10/01/21 10/02/21 15:00 23:00 07:00 Intake Total 1140 ml 600 ml Balance 1140 ml 600 ml Labs: Laboratory Tests Test 10/02/21 07:17 Glucose (Fingerstick) 142 mg/dL (70-99) H Current Medications: Meds: Laboratory Tests Test 10/02/21 07:17 Glucose (Fingerstick) 142 mg/dL Current Medications Medications (Trade) Dose Ordered Sig/Aparna Route PRN Reason Start Time Stop Time Status Last Admin Dose Admin Acetaminophen (Tylenol) 650 mg PRN Q6HRS PRN PO MILD PAIN / TEMP > 100.3'F 07/06/21 00:30 Cancel Multi-Ingredient Ointment (Analgesic [place]) 1 inna PRN QID PRN TP MUSCLE PAIN 07/06/21 00:30 10/02/21 14:23 DC 09/06/21 17:39 Al Hydroxide/Mg Hydroxide (Mylanta Plus Xs) 15 ml PRN AFTMEALHC PRN PO DYSPEPSIA 07/06/21 00:30 10/02/21 14:23 DC 09/27/21 14:28 Magnesium Hydroxide (Milk Of Magnesia) 2,400 mg PRN QHS PRN PO 2ND CHOICE CONSTIPATION 07/06/21 00:30 10/02/21 14:23 DC 07/14/21 08:13 Duloxetine HCl (Cymbalta) 20 mg HS PO 07/06/21 21:00 10/02/21 14:23 DC 10/01/21 20:26 Duloxetine HCl (Cymbalta) 30 mg HS PO 07/06/21 21:00 10/02/21 14:23 DC 10/01/21 20:26 Mirtazapine (Remeron) 7.5 mg HS PO 07/06/21 21:00 07/29/21 18:15 DC 07/28/21 20:09 Olanzapine (ZyPREXA ZYDIS) 2.5 mg PRN Q2HR PRN PO ANXIETY / AGITATION 07/06/21 01:15 10/02/21 14:23 DC 09/14/21 21:08 Trazodone HCl (Desyrel) 50 mg PRN QHS PRN PO INSOMNIA 07/06/21 01:15 10/02/21 14:23 DC 09/09/21 20:37 Acetaminophen (Tylenol) 650 mg PRN Q4HRS PRN PO MILD PAIN 1-3 07/06/21 10:30 10/02/21 14:23 DC 09/06/21 17:39 Aspirin (Aspirin Enteric Coated) 81 mg DAILY PO 07/07/21 09:00 10/02/21 14:23 DC 10/02/21 08:22 Atorvastatin Calcium (Lipitor) 10 mg QHS PO 07/06/21 21:00 10/02/21 14:23 DC 10/01/21 20:27 Carvedilol (Coreg) 3.125 mg BIDWMEALS PO 07/06/21 17:00 07/25/21 17:52 DC 07/25/21 17:22 Gabapentin (Neurontin) 300 mg BID PO 07/06/21 21:00 08/30/21 12:29 DC 08/30/21 08:20 Metformin HCl (Glucophage Xr) 500 mg DAILYWBKFT PO 07/07/21 08:00 10/02/21 14:23 DC 10/02/21 08:22 Multi-Ingredient Ointment (Analgesic [place]) 1 inna PRN QID PRN TP PAIN 07/06/21 10:30 UNV Phenytoin Sodium (Dilantin) 500 mg HS PO 07/06/21 21:00 07/07/21 22:27 DC 07/07/21 20:05 Tamsulosin HCl (Flomax) 0.4 mg DAILY PO 07/07/21 09:00 10/02/21 14:23 DC 10/02/21 08:23 Polyethylene Glycol (miraLAX) 17 gm PRN DAILY PRN PO 1ST CHOICE CONSTIPATION 07/06/21 10:45 10/02/21 14:23 DC 08/13/21 20:07 Non-Formulary Medication (Pravastatin Sodium ) 40 mg DAILY PO 07/07/21 09:00 UNV Phenyleph/Shark Oil/Min Oil/Petrol (Preparation H) 1 inna PRN QID PRN RC RECTAL PAIN 07/06/21 15:15 10/02/21 14:23 DC Phenytoin Sodium (Dilantin) 400 mg HS PO 07/08/21 21:00 07/11/21 23:36 DC 07/11/21 20:35 Albuterol/ Ipratropium (Combivent Respimat 20-100 Mcg) 1 puff QID INH 07/08/21 13:00 10/02/21 14:23 DC 10/02/21 08:22 Docusate Sodium (Colace) 100 mg DAILY PO 07/09/21 09:00 10/02/21 14:23 DC 10/02/21 08:22 Guaifenesin (Mucinex Er) 600 mg BID PO 07/08/21 21:00 10/02/21 14:23 DC 10/02/21 08:23 Magnesium Hydroxide (Milk Of Magnesia) 2,400 mg PRN QHS PRN PO 2nd CHOICE CONSTIPATION 07/08/21 19:30 Cancel Phenytoin Sodium (Dilantin) 200 mg HS PO 07/12/21 21:00 10/02/21 14:23 DC 10/01/21 20:27 Phenytoin Sodium (Dilantin) 100 mg DAILY PO 07/12/21 09:00 10/02/21 14:23 DC 10/02/21 08:23 Carvedilol (Coreg) 6.25 mg BIDWMEALS PO 07/25/21 18:00 07/25/21 18:07 DC Carvedilol (Coreg) 6.25 mg BIDWMEALS PO 07/26/21 08:00 08/02/21 09:02 DC 08/02/21 08:33 Mirtazapine (Remeron) 15 mg QHS PO 07/29/21 21:00 10/02/21 14:23 DC 10/01/21 20:27 Carvedilol (Coreg) 12.5 mg BIDWMEALS PO 08/02/21 17:00 11/4/21 14:23 DC 10/02/21 08:23 Albuterol Sulfate (Ventolin Hfa Inhaler) 2 puff PRN Q4HRS PRN INH SHORTNESS OF BREATH 08/02/21 09:15 10/02/21 14:23 DC 09/27/21 14:03 Melatonin (Melatonin) 3 mg QHS PO 08/05/21 21:00 08/18/21 14:06 DC 08/17/21 20:06 Oxycodone/ Acetaminophen (Percocet 10/325) 1 tab PRN Q6HRS PRN PO MOD-SEV PAIN 08/15/21 00:15 10/02/21 14:23 DC 08/15/21 00:23 Melatonin (Melatonin) 6 mg QHS PO 08/18/21 21:00 10/02/21 14:23 DC 10/01/21 20:27 Influenza Virus Vaccine Quadrival (Flulaval Quad [id number] Syringe) 0.5 ml ONCE ONCE VAX IM 08/20/21 09:00 08/20/21 09:01 DC 08/20/21 11:35 Gabapentin (Neurontin) 100 mg 1X ONCE PO 08/30/21 14:00 08/30/21 14:01 Cancel Gabapentin (Neurontin) 200 mg 1X ONCE PO 08/30/21 21:00 08/30/21 21:01 Cancel Gabapentin (Neurontin) 300 mg BID PO 08/31/21 09:00 10/02/21 14:23 DC 10/02/21 08:23 Gabapentin (Neurontin) 300 mg 1X ONCE PO 08/30/21 12:45 08/30/21 12:46 DC 08/30/21 12:42 Nystatin (Nystop) 1 inna BID PRN TP antifungal 09/14/21 19:45 10/02/21 14:23 DC I have reviewed the current psychotropics carefully including drug interactions. Risk benefit ratio favors no change other than as noted in my dictated progress note. Diagnosis: Problems: (1) Impulse control disorder, unspecified (2) Anxiety disorder, unspecified (3) Dementia, vascular, with depression (4) Dementia, vascular, with delusions (5) Major neurocognitive disorder (6) Dementia in Alzheimer's disease with depression (7) Dementia in Alzheimer's disease with delusions (8) Dementia of the Alzheimer's type with early onset with behavioral disturbance (9) Major depressive disorder in partial remission NIK LOYA MD Oct 02, 2021 22:02
--- NOTE | 2021-10-03 09:56 | PDOC ---
Exam Note: Leo Note: This note is a late entry for 10/01/2021 covers elements not covered in my initial note. Subjective: The patient was seen individually in the evening of 10/01/2021 with Gogo KOWALSKI, discussed and reviewed the chart. The patient slept 7 hours previous night. Overall the patient is doing about the same. He has been accepted at [facility] with discharge plan on10/02. Review of Systems: Ambulation impaired in wheelchair. No CV, , pulmonary, eye, ENT system symptoms on review. Mental Status Exam: The patient is oriented to himself and situation. Speech coherent. Abstraction fair. Computation impaired. Mood and affect anxious. Laboratory Data: Reviewed. Impression: Major depressive disorder, in partial remission. Major neurocognitive disorder, Alzheimer, vascular with delusion, depression, behavioral disturbance. Anxiety disorder unspecified. Impulse control disorder unspecified. Plan: No change from initial note. Assessment: Vital Signs/I&O: Vital Signs Date Time Temp Pulse Resp B/P (MAP) Pulse Ox O2 Delivery O2 Flow Rate FiO2 10/02/21 08:23 71 134/70 10/02/21 06:21 98.0 16 95 09/28/21 06:11 Room Air I & O 10/02/21 10/02/21 10/03/21 15:00 23:00 07:00 Intake Total 1167 ml Balance 1167 ml Current Medications: Meds: Current Medications Medications (Trade) Dose Ordered Sig/Aparna Route PRN Reason Start Time Stop Time Status Last Admin Dose Admin Acetaminophen (Tylenol) 650 mg PRN Q6HRS PRN PO MILD PAIN / TEMP > 100.3'F 07/06/21 00:30 Cancel Multi-Ingredient Ointment (Analgesic Schuyler) 1 inna PRN QID PRN TP MUSCLE PAIN 07/06/21 00:30 10/02/21 14:23 DC 09/06/21 17:39 Al Hydroxide/Mg Hydroxide (Mylanta Plus Xs) 15 ml PRN AFTMEALHC PRN PO DYSPEPSIA 07/06/21 00:30 10/02/21 14:23 DC 09/27/21 14:28 Magnesium Hydroxide (Milk Of Magnesia) 2,400 mg PRN QHS PRN PO 2ND CHOICE CONSTIPATION 07/06/21 00:30 10/02/21 14:23 DC 07/14/21 08:13 Duloxetine HCl (Cymbalta) 20 mg HS PO 07/06/21 21:00 10/02/21 14:23 DC 10/01/21 20:26 Duloxetine HCl (Cymbalta) 30 mg HS PO 07/06/21 21:00 10/02/21 14:23 DC 10/01/21 20:26 Mirtazapine (Remeron) 7.5 mg HS PO 07/06/21 21:00 07/29/21 18:15 DC 07/28/21 20:09 Olanzapine (ZyPREXA ZYDIS) 2.5 mg PRN Q2HR PRN PO ANXIETY / AGITATION 07/06/21 01:15 10/02/21 14:23 DC 09/14/21 21:08 Trazodone HCl (Desyrel) 50 mg PRN QHS PRN PO INSOMNIA 07/06/21 01:15 10/02/21 14:23 DC 09/09/21 20:37 Acetaminophen (Tylenol) 650 mg PRN Q4HRS PRN PO MILD PAIN 1-3 07/06/21 10:30 10/02/21 14:23 DC 09/06/21 17:39 Aspirin (Aspirin Enteric Coated) 81 mg DAILY PO 07/07/21 09:00 10/02/21 14:23 DC 10/02/21 08:22 Atorvastatin Calcium (Lipitor) 10 mg QHS PO 07/06/21 21:00 10/02/21 14:23 DC 10/01/21 20:27 Carvedilol (Coreg) 3.125 mg BIDWMEALS PO 07/06/21 17:00 07/25/21 17:52 DC 07/25/21 17:22 Gabapentin (Neurontin) 300 mg BID PO 07/06/21 21:00 08/30/21 12:29 DC 08/30/21 08:20 Metformin HCl (Glucophage Xr) 500 mg DAILYWBKFT PO 07/07/21 08:00 10/02/21 14:23 DC 10/02/21 08:22 Multi-Ingredient Ointment (Analgesic Schuyler) 1 inna PRN QID PRN TP PAIN 07/06/21 10:30 UNV Phenytoin Sodium (Dilantin) 500 mg HS PO 07/06/21 21:00 07/07/21 22:27 DC 07/07/21 20:05 Tamsulosin HCl (Flomax) 0.4 mg DAILY PO 07/07/21 09:00 10/02/21 14:23 DC 10/02/21 08:23 Polyethylene Glycol (miraLAX) 17 gm PRN DAILY PRN PO 1ST CHOICE CONSTIPATION 07/06/21 10:45 10/02/21 14:23 DC 08/13/21 20:07 Non-Formulary Medication (Pravastatin Sodium ) 40 mg DAILY PO 07/07/21 09:00 UNV Phenyleph/Shark Oil/Min Oil/Petrol (Preparation H) 1 inna PRN QID PRN RC RECTAL PAIN 07/06/21 15:15 10/02/21 14:23 DC Phenytoin Sodium (Dilantin) 400 mg HS PO 07/08/21 21:00 07/11/21 23:36 DC 07/11/21 20:35 Albuterol/ Ipratropium (Combivent Respimat 20-100 Mcg) 1 puff QID INH 07/08/21 13:00 10/02/21 14:23 DC 10/02/21 08:22 Docusate Sodium (Colace) 100 mg DAILY PO 07/09/21 09:00 10/02/21 14:23 DC 10/02/21 08:22 Guaifenesin (Mucinex Er) 600 mg BID PO 07/08/21 21:00 10/02/21 14:23 DC 10/02/21 08:23 Magnesium Hydroxide (Milk Of Magnesia) 2,400 mg PRN QHS PRN PO 2nd CHOICE CONSTIPATION 07/08/21 19:30 Cancel Phenytoin Sodium (Dilantin) 200 mg HS PO 07/12/21 21:00 10/02/21 14:23 DC 10/01/21 20:27 Phenytoin Sodium (Dilantin) 100 mg DAILY PO 07/12/21 09:00 10/02/21 14:23 DC 10/02/21 08:23 Carvedilol (Coreg) 6.25 mg BIDWMEALS PO 07/25/21 18:00 07/25/21 18:07 DC Carvedilol (Coreg) 6.25 mg BIDWMEALS PO 07/26/21 08:00 08/02/21 09:02 DC 08/02/21 08:33 Mirtazapine (Remeron) 15 mg QHS PO 07/29/21 21:00 10/02/21 14:23 DC 10/01/21 20:27 Carvedilol (Coreg) 12.5 mg BIDWMEALS PO 08/02/21 17:00 10/02/21 14:23 DC 10/02/21 08:23 Albuterol Sulfate (Ventolin Hfa Inhaler) 2 puff PRN Q4HRS PRN INH SHORTNESS OF BREATH 08/02/21 09:15 10/02/21 14:23 DC 09/27/21 14:03 Melatonin (Melatonin) 3 mg QHS PO 08/05/21 21:00 08/18/21 14:06 DC 08/17/21 20:06 Oxycodone/ Acetaminophen (Percocet 10325) 1 tab PRN Q6HRS PRN PO MOD-SEV PAIN 08/15/21 00:15 10/02/21 14:23 DC 08/15/21 00:23 Melatonin (Melatonin) 6 mg QHS PO 08/18/21 21:00 10/02/21 14:23 DC 10/01/21 20:27 Influenza Virus Vaccine Quadrival (Flulaval Quad [id number] Syringe) 0.5 ml ONCE ONCE VAX IM 08/20/21 09:00 08/20/21 09:01 DC 08/20/21 11:35 Gabapentin (Neurontin) 100 mg 1X ONCE PO 08/30/21 14:00 08/30/21 14:01 Cancel Gabapentin (Neurontin) 200 mg 1X ONCE PO 08/30/21 21:00 08/30/21 21:01 Cancel Gabapentin (Neurontin) 300 mg BID PO 08/31/21 09:00 10/02/21 14:23 DC 10/02/21 08:23 Gabapentin (Neurontin) 300 mg 1X ONCE PO 08/30/21 12:45 08/30/21 12:46 DC 08/30/21 12:42 Nystatin (Nystop) 1 inna BID PRN TP antifungal 09/14/21 19:45 10/02/21 14:23 DC I have reviewed the current psychotropics carefully including drug interactions. Risk benefit ratio favors no change other than as noted in my dictated progress note. Diagnosis: Problems: (1) Impulse control disorder, unspecified (2) Anxiety disorder, unspecified (3) Dementia, vascular, with depression (4) Dementia, vascular, with delusions (5) Major neurocognitive disorder (6) Dementia in Alzheimer's disease with depression (7) Dementia in Alzheimer's disease with delusions (8) Dementia of the Alzheimer's type with early onset with behavioral disturbance (9) Major depressive disorder in partial remission NIK LOYA MD Oct 03, 2021 09:56
--- NOTE | 2021-10-03 21:14 | DS ---
DATE OF DISCHARGE: 10/02/2021 DISCHARGE SUMMARY AND PSYCHIATRIC PROGRESS NOTE This is a late entry, date of service, 10/02/2021, covers elements not covered in my initial note, 10/02/2021. REASON FOR ADMISSION: Please refer to the admission history for details. Briefly, the patient is a 81-year-old male, referred to us from [facility] in [place], [place]; referred by his primary care physician/psychiatrist and from [facility]. He was aggressive towards staff at the alf unit, disruptive, unable to be redirected, requiring intramuscular Haldol. He was talking to and about a female staff member as if they were his girlfriend. At a previous long-term care facility, he was given a 30-day eviction notice due to his sexually inappropriate behaviors. The patient was increasingly confused, impulsive, aggressive, disruptive; had failed outpatient psychiatric intervention, resulting in this referral. SIGNIFICANT FINDINGS AND CLINICAL COURSE: Following admission, the patient was seen daily individually by myself from a psychiatric standpoint, medical followup with Dr. Niño/Dr. Villarreal. The patient was quite forgetful with significant short-term memory deficits, agitated, labile, somewhat loud, and somatic. Adjustments were made in his psychotropics and he seemed to respond to a combination of Remeron 15 mg at bedtime; gabapentin 300 mg b.i.d.; Cymbalta 50 mg a day; trazodone 50 mg at bedtime p.r.n., may repeat x1; Zyprexa p.r.n.; melatonin 6 mg at bedtime; and he was on Dilantin 100 mg a.m., 200 mg at bedtime for his seizure disorder with a therapeutic blood level and this was followed neurologically per Dr. Newman. Gradually, mood appeared to improve. He was less angry, aggressive, still forgetful; however, multiple facilities rejected him given his history that prompted admission despite the fact that he was doing much better with adjustments in his psychotropics. After persistent effort, finally a placement was found by social service staff and he was transitioned on 10/02/2021. PRIOR TO DISCHARGE REVIEW OF SYSTEMS: Ambulation impaired, in wheelchair. No CV, , pulmonary, eye system symptoms on review. He does complain of some difficulty breathing late in the evening. MENTAL STATUS EXAMINATION: Oriented to himself, situation. Speech is coherent, has some latency. Abstraction fair. Computation impaired. Language function intact. Attention span short. Mood and affect less labile. LABORATORY DATA: Reviewed. FINAL DIAGNOSES: Major neurocognitive disorder; Alzheimer, vascular with delusion; depression; behavioral disturbance; anxiety disorder, unspecified; impulse control disorder, unspecified. Rest unchanged from admission. DISCHARGE MEDICATIONS: Please refer to the MRAD. DISCHARGE INSTRUCTIONS: Outpatient psychiatric and medical followup at the skilled nursing. SPARKLE DR: Melissa TID: [id number]
== END 2021-10-02 13:26 | DRG 57 ==
LOC: GEROPSY 00:16
PROVIDERS: ADMIT Psychiatry & Neurology Psychiatry; ATTEND Psychiatry & Neurology Psychiatry
DX: G30.9 Alzheimer's disease, unspecified (principal); F01.51 Vascular dementia, unspecified severity, with behavioral disturbance; N18.9 Chronic kidney disease, unspecified; F02.81 Dementia in other diseases classified elsewhere, unspecified severity, with behavioral disturbance; F63.9 Impulse disorder, unspecified; E11.22 Type 2 diabetes mellitus with diabetic chronic kidney disease; F32.4 Major depressive disorder, single episode, in partial remission; F41.9 Anxiety disorder, unspecified; G40.909 Epilepsy, unspecified, not intractable, without status epilepticus; I12.9 Hypertensive chronic kidney disease with stage 1 through stage 4 chronic kidney disease, or unspecified chronic kidney disease; J44.9 Chronic obstructive pulmonary disease, unspecified; N40.0 Benign prostatic hyperplasia without lower urinary tract symptoms; E66.9 Obesity, unspecified; Z20.822 Contact with and (suspected) exposure to COVID-19; Z86.16 Personal history of COVID-19; Z86.73 Personal history of transient ischemic attack (TIA), and cerebral infarction without residual deficits; Z79.899 Other long term (current) drug therapy; Z59.9 Problem related to housing and economic circumstances, unspecified; Z68.32 Body mass index [BMI] 32.0-32.9, adult
CPT/HCPCS: 36415; 71045; 80053; 80185; 81001; 82550; 82947; 84484; 85007; 85025; 90471; 90686; U0003; 97116; 97530